=== PATIENT | female | born 1955 | race Caucasian/White ===

== ENCOUNTER 2016-09-25 11:51 | Inpatient (IN) | payer BC, OTHER ==
[~2016-09-25] VITALS: Ht 167.6 cm; Wt 89.7 kg
[2016-09-25] MEDS ORDERED: SODIUM CHLORIDE 0.9% 1000ML 1,000 ML IV SCH (13:03)
[2016-09-25 13:16] LABS: BASO % 0.9 %; BASO ABS # 0.06 K/uL (0-0.2); COMPLETE YES; EOS % 1.7 %; HEMATOCRIT 42.5 % (37-47); IG% 0.1 %; LYMPH ABS # 1.53 K/uL (1.2-3.4); MEAN CELL VOLUME 83.8 fL (80-100); MEAN CORPUSCULAR HGB CONC 34.6 g/dl (32-36); MEAN PLATELET VOLUME 10.8 fL (7.4-10.4); MONO % 6.5 %; NEUT % 68.8 %; PLATELET COUNT 203 K/uL (130-400); RED BLOOD COUNT 5.07 M/uL (4.2-5.4); WHITE BLOOD COUNT 6.94 K/uL (4.8-10.8)
--- NOTE | 2016-09-25 13:21 | DIAGNOSTIC IMAGING REPORT ---
CHEST ONE VIEW PORTABLE CLINICAL HISTORY: Dizziness, falling frequently COMPARISON STUDY: August 04, 2009 FINDINGS: The heart is borderline enlarged. There is no failure. There is no focal pulmonary consolidation. There are no pleural effusions.[ IMPRESSION: No active disease in the chest. Electronically signed by: Jordan Armando M.D. 09/25/2016 1:20 PM Dictated Date/Time: 09/25/2016 1:19 PM
[2016-09-25] MEDS ORDERED: CARV3.12 PO (13:22)
[2016-09-25] MEDS ORDERED: FURO20TA PO (13:22)
[2016-09-25] MEDS ORDERED: SPR25 PO (13:22)
[2016-09-25] MEDS ORDERED: ASPI81TA28 PO (13:22)
[2016-09-25] MEDS ORDERED: LSN5 PO (13:22)
[2016-09-25 13:25] LABS: ALT/SGPT 26 U/L (12-78); AST/SGOT 14 U/L (15-37); BLOOD UREA NITROGEN 18 mg/dl (7-18); BUN/CREATININE RATIO 22.7 (10-20); CALCIUM 10.5 mg/dl (8.5-10.1); CARBON DIOXIDE 24 mmol/L (21-32); CHLORIDE 99 mmol/L (98-107); CREATININE 0.79 mg/dl (0.60-1.20); GLUCOSE 492 mg/dl (70-99); MAGNESIUM 2.1 mg/dl (1.8-2.4); SODIUM 136 mmol/L (136-145)
[2016-09-25 13:30] LABS: ALB/GLOB RATIO 0.7 (0.9-2); ALKALINE PHOSPHATASE 99 U/L (45-117)
[2016-09-25 13:32] LABS: INR 0.9 (0.9-1.1); PARTIAL THROMBOPLASTIN RATIO 0.9; PROTHROMBIN TIME (PATIENT) 9.9 SECONDS (9.0-12.0)
[2016-09-25 13:38] LABS: URINE APPEARANCE CLEAR (CLEAR); URINE BILIRUBIN NEG (NEG); URINE COLOR YELLOW; URINE EPITHELIAL CELL AUTO >30 /lpf (0-5); URINE NITRITE POS (NEG); UROBILINOGEN NEG (NEG); ZZUR CULT IF INDIC CLEAN CATCH YES
[2016-09-25 13:56] LABS: LYME DISEASE AB IGM NEG (NEG)
[2016-09-25] MEDS ORDERED: SODIUM CHLORIDE 0.9% 1000ML 1,000 ML IV STA (13:57)
--- NOTE | 2016-09-25 13:57 | EMERGENCY ROOM VISIT NOTE ---
History First contact with patient: 12:49 Chief Complaint: REFERRED BY DOCTOR Stated Complaint: DOC SENT OVER FOR CARDIAC ASSESSMENT/BRAIN CT History of Present Illness The patient is a 61 year old female who presents to the Emergency Room via private vehicle referred from doctor's office with complaints of "doctor sent over for cardiac assessment/brain CT". The patient states that for the past year or so, she has been off balance, and is following number of times. She states that she was placed upon to diabetic medications, and on her own accord had stop one of them. She states that it caused undesired bowel side effects, and urinary changes. She states that her sugar has persistently been elevated. She states that her dizziness and off balance feeling has worsened therefore she prompted a family doctor pointed today. She was seen by Dr. Black, and she states that an EKG was performed and found to be abnormal therefore she was sent here as well as for further evaluation and management to include a potential CT scan of the head secondary to her symptoms. She states that currently she denies any symptoms and feels excellent. She doesn't history of diabetes, hypertension, and CHF. She denies any high cholesterol, fevers, chills, history of stroke, loss of consciousness, striking her head, chest pain , shortness of breath, dizziness currently. Review of Systems A complete 10-point Review of Systems was discussed with the patient, with pertinent positives and negatives listed in the History of Present Illness. All remaining Review of Systems questions can be considered negative unless otherwise specified. Past Medical/Surgical History Medical Problems: (1) Basal ganglia infarction (2) Diabetic ketoacidosis Diabetes, heart disease, high blood pressure Family History Diabetes, heart disease, high blood pressure, Globe D disease Social History Smoking Status: Never Smoker Marital Status: Occupation Status: other Social History: Patient lives at home with , denies alcohol and tobacco use. She is employed. Current/Historical Medications Scheduled Aspirin (Aspirin Ec), 81 MG PO DAILY Carvedilol (Coreg), 1 TAB PO BID Furosemide (Lasix), 1 TAB PO DAILY Lisinopril (Lisinopril), 1 TAB PO DAILY Spironolactone (Spironolactone), 1 TAB PO DAILY Allergies Coded Allergies: Erythromycin (Unverified Adverse Reaction, Intermediate, VOMITTING, ) Physical Exam Vital Signs Date Time Temp Pulse Resp B/P (MAP) Pulse Ox O2 Delivery O2 Flow Rate FiO2 09/25/16 16:31 78 16 09/25/16 16:26 76 19 09/25/16 16:21 80 17 214/106 98 Room Air 09/25/16 16:06 85 15 09/25/16 15:51 88 19 09/25/16 15:24 84 20 205/94 95 Room Air 09/25/16 15:21 85 12 205/94 98 09/25/16 15:09 84 18 199/87 97 Room Air 09/25/16 15:08 199/87 09/25/16 14:06 83 17 09/25/16 13:51 78 14 09/25/16 13:42 86 20 200/100 98 09/25/16 13:36 79 18 09/25/16 13:26 98 Room Air 09/25/16 13:25 200/100 09/25/16 13:23 221/107 09/25/16 13:22 88 20 212/109 86 221/107 93 200/100 09/25/16 13:22 212/109 09/25/16 13:06 80 15 09/25/16 12:51 81 26 09/25/16 12:48 80 15 194/85 97 Room Air 09/25/16 12:48 194/85 09/25/16 12:36 82 13 09/25/16 12:31 75 09/25/16 11:55 36.7 80 18 195/100 94 Room Air Physical Exam VITAL SIGNS - Vital signs and nursing notes were reviewed. Patient is afebrile , hypertensive at 195/100, non-tachycardic and saturating on room air 94%. GENERAL -61-year-old female appearing her stated age who is in no acute distress. Communicates well with provider and answers questions appropriately. SKIN - Without rashes. The integument is unremarkable. HEAD - NC/AT. EYES - PERRL with EOMI bilaterally. Sclera anicteric. Palpebral conjunctiva pink and moist with no injection noted. EARS - No deformities of external structures noted on gross examination bilaterally. No pain elicited with palpation of the tragus bilaterally. External auditory canals without discharge or otorrhea. Tympanic membranes pearly kat without retraction or bulging. No fluid or purulent material visualized behind the TM. Handle of malleus, umbo, cone of light, pars tensa/ flaccid all easily visualized. NOSE - Midline and without cyanosis. No epistaxis or purulent drainage noted. Septum midline without deviation or septal hematoma noted. MOUTH/OROPHARYNX - Without perioral cyanosis. Buccal mucosa pink and moist and without leukoplakia. Tongue midline with equal elevation of palate bilaterally. No tonsillar hypertrophy, erythema, or exudates noted. [] dentition noted. NECK - Neck with FROM. Supple to palpation. No lymphadenopathy noted. No nuchal rigidity. No meningismus. LUNGS - Chest wall symmetric without accessory muscle use, intercostals retractions, or central cyanosis. Normal vesicular breath sounds CTA B/L. No wheezes, rales, or rhonchi appreciated. CARDIAC - RRR with S1/S2. No murmur, rubs, or gallops appreciated. ABDOMEN - Abdominal contour without pulsations or visible masses. BS normoactive all four quadrants. No tenderness, palpable masses, hepatosplenomegaly, or ascites noted. EXTREMITIES - No clubbing or peripheral cyanosis. No pretibial edema present. She is neurovascularly intact in the extremity. +5/5 strength noted in UE/LE bilaterally. NEUROLOGIC - Cranial nerves II through XII grossly intact. Sensory intact to light touch throughout. Patellar reflexes +2/4. PSYCH - A&Ox3 and cooperates fully with examiner. Pt is very pleasant and interacts well with examiner. Medical Decision & Procedures ER Provider Diagnostic Interpretation: CHEST ONE VIEW PORTABLE CLINICAL HISTORY: Dizziness, falling frequently COMPARISON STUDY: August 04, 2009 FINDINGS: The heart is borderline enlarged. There is no failure. There is no focal pulmonary consolidation. There are no pleural effusions.[ IMPRESSION: No active disease in the chest. Electronically signed by: Jordan Armando M.D. 09/25/2016 1:20 PM Dictated Date/Time: 09/25/2016 1:[address] SCAN OF THE BRAIN WITHOUT IV CONTRAST CLINICAL HISTORY: Dizziness. Frequent falls. COMPARISON STUDY: No priors. TECHNIQUE: Unenhanced axial CT scan of the brain is performed from the vertex to the skull base. CT DOSE: 614.27 mGy.cm FINDINGS: Brain parenchyma: There are age-related involutional changes noting minimal subcortical and periventricular microangiopathic change. There is no hemorrhage, mass effect, or evidence of acute territorial ischemia by CT criteria. An age indeterminant and likely chronic lacunar infarct is identified in the left basal ganglia. Kat-white matter is preserved. No extra-axial fluid collection is seen. Ventricles, sulci, cisterns: Prominent secondary to involutional change. Intracranial vasculature: There is atherosclerotic calcification of the cavernous carotid and vertebral arteries. Calvarium: The skeletal structures are osteopenic. No depressed calvarial fracture is seen. Sinuses and mastoids: There is trace mucosal thickening in the left maxillary antrum. The remaining visualized paranasal sinuses are clear. The mastoid air cells are well pneumatized. Orbits: The bony orbits are grossly intact. IMPRESSION: 1. There is no hemorrhage, mass effect, or evidence of acute territorial ischemia by CT criteria. 2. An age indeterminant and likely chronic lacunar infarct is noted in the left basal ganglia. Electronically signed by: Donovan Marinelli M.D. 09/25/2016 2:48 PM Dictated Date/Time: 09/25/2016 2:42 PM Laboratory Results 09/25/16 12:30 Red Blood Count 5.07, Mean Corpuscular Volume 83.8, Mean Corpuscular Hemoglobin 29.0, Mean Corpuscular Hemoglobin Concent 34.6, Mean Platelet Volume 10.8, Neutrophils (%) (Auto) 68.8, Lymphocytes (%) (Auto) 22.0, Monocytes (%) (Auto) 6.5, Eosinophils (%) (Auto) 1.7, Basophils (%) (Auto) 0.9, Neutrophils # (Auto) 4.77, Lymphocytes # (Auto) 1.53, Monocytes # (Auto) 0.45, Eosinophils # (Auto) 0.12, Basophils # (Auto) 0.06 Test 09/25/16 12:15 09/25/16 12:30 09/25/16 13:03 09/25/16 13:45 Urine Color YELLOW Urine Appearance CLEAR (CLEAR) Urine pH 5.0 (4.5-7.5) Urine Specific [place] 1.040 (1.000-1.030) Urine Protein 2+ (NEG) Urine Glucose (UA) 3+ (NEG) Urine Ketones 3+ (NEG) Urine Occult Blood 1+ (NEG) Urine Nitrite POS (NEG) Urine Bilirubin NEG (NEG) Urine Urobilinogen NEG (NEG) Urine Leukocyte Esterase TRACE (NEG) Urine WBC (Auto) >30 /hpf (0-5) Urine RBC (Auto) 5-10 /hpf (0-4) Urine Hyaline Casts (Auto) 1-5 /lpf (0-5) Urine Epithelial Cells (Auto) >30 /lpf (0-5) Urine Bacteria (Auto) 4+ (NEG) White Blood Count 6.94 K/uL (4.8-10.8) Red Blood Count 5.07 M/uL (4.2-5.4) Hemoglobin 14.7 g/dL (12.0-16.0) Hematocrit 42.5 % (37-47) Mean Corpuscular Volume 83.8 fL (80-100) Mean Corpuscular Hemoglobin 29.0 pg (25-34) Mean Corpuscular Hemoglobin Concent 34.6 g/dl (32-36) Platelet Count 203 K/uL (130-400) Mean Platelet Volume 10.8 fL (7.4-10.4) Neutrophils (%) (Auto) 68.8 % Lymphocytes (%) (Auto) 22.0 % Monocytes (%) (Auto) 6.5 % Eosinophils (%) (Auto) 1.7 % Basophils (%) (Auto) 0.9 % Neutrophils # (Auto) 4.77 K/uL (1.4-6.5) Lymphocytes # (Auto) 1.53 K/uL (1.2-3.4) Monocytes # (Auto) 0.45 K/uL (0.11-0.59) Eosinophils # (Auto) 0.12 K/uL (0-0.5) Basophils # (Auto) 0.06 K/uL (0-0.2) RDW Standard Deviation 41.1 fL (36.4-46.3) RDW Coefficient of Variation 13.5 % (11.5-14.5) Immature Granulocyte % (Auto) 0.1 % Immature Granulocyte # (Auto) 0.01 K/uL (0.00-0.02) Prothrombin Time 9.9 SECONDS (9.0-12.0) Prothromb Time International Ratio 0.9 (0.9-1.1) Activated Partial Thromboplast Time 22.5 SECONDS (21.0-31.0) Partial Thromboplastin Ratio 0.9 Total Bilirubin 0.5 mg/dl (0.2-1) Aspartate Amino Transf (AST/SGOT) 14 U/L (15-37) Alanine Aminotransferase (ALT/SGPT) 26 U/L (12-78) Alkaline Phosphatase 99 U/L (45-117) Total Creatine Kinase 24 U/L (26-192) Creatine Kinase MB < 0.5 ng/ml (0.5-3.6) Total Protein 7.2 gm/dl (6.4-8.2) Albumin 3.0 gm/dl (3.4-5.0) Globulin 4.2 gm/dl (2.5-4.0) Albumin/Globulin Ratio 0.7 (0.9-2) Thyroid Stimulating Hormone (TSH) 2.130 uIu/ml (0.300-4.500) Lyme Disease IgG Antibody POS (NEG) Creatine Kinase MB Ratio (0-3.0) Bedside Troponin I < 0.030 ng/ml (0-0.045) HO-Mgj-A-Type Natriuretic Peptide 941 pg/ml (0-900) Medications Administered Medications (Trade) Dose Ordered Sig/Maria Isabel Route Start Time Stop Time Status Last Admin Dose Admin Sodium Chloride 1,000 ml @ 50 mls/hr Q20H IV 09/25/16 13:03 09/25/16 20:57 DC 09/25/16 16:43 50 MLS/HR Sodium Chloride 1,000 ml @ 999 mls/hr Q1H1M STAT IV 09/25/16 13:57 09/25/16 14:57 DC 09/25/16 14:03 999 MLS/HR Ceftriaxone Sodium (Rocephin Inj) 1 gm NOW STAT IV 09/25/16 15:59 09/25/16 16:00 DC 09/25/16 16:43 1 GM Oxycodone HCl (Roxicodone Immediate Rel Tab) 5 mg NOW STAT PO 09/25/16 16:03 09/25/16 16:04 DC 09/25/16 16:43 5 MG Morphine Sulfate (MoRPHine SULFATE INJ) 2 mg Q30M PRN IV 09/25/16 17:15 10/09/16 17:14 09/25/16 23:00 2 MG Medical Decision Patient was seen and evaluated as above. After obtaining a thorough history and physical examination IV access was initiated above workup was performed. Patient presents to us with chronic dizziness, as well as concerning EKG findings from the family doctor. Her bedside EKG reveals normal sinus rhythm, nonspecific ST and T-wave abnormalities. This was compared with EKG of 2009. T-wave inversion now evident in the inferior leads, and less evident in the lateral leads. CBC reveals no leukocytosis or anemia. Coag studies normal. CMP reveals normal electrolytes, creatinine normal 0.79. Random glucose high at 492, anion gap at 13. Calcium high at 10.5, total CK low at 24 , beta hydroxybutyric acid high at 35, TSH normal. Urine is concerning for UTI. This will be treated with 1 g Rocephin. IgG positive. Chest x-ray shows borderline cardiomegaly, otherwise negative. CT scan of the head is concerning for that of the basal ganglia infarct of undetermined age. There is concern of the patient's dizziness is secondary to this, and she is also experiencing a diabetic hypoglycemic event, without evidence of manuel DKA. Believe the patient should be admitted for further evaluation and management. Patient is in agreement with this. Case was discussed with my attending. Please refer to further documentation regarding her stay. In the evaluation and treatment of this patient following differential diagnoses were entertained: CVA, DKA, ND, PE, among others. Impression Primary Impression: Basal ganglia infarction Additional Impression: Hyperglycemia Departure Information Dispostion Admitted as an inpatient Condition FAIR Referrals Bhargavi Black D.O. (PCP) Patient Instructions My [facility] Problem Qualifiers
[2016-09-25 14:04] LABS: POINT OF CARE PRO-BNP 941 pg/ml (0-900); POINT OF CARE TROPONIN I < 0.030 ng/ml (0-0.045)
[2016-09-25 14:12] LABS: MANUAL MICROSCOPIC REQUIRED? NO; REVIEW REQ? NO
[2016-09-25 14:27] LABS: LYME DISEASE AB IGG POS (NEG)
--- NOTE | 2016-09-25 14:49 | DIAGNOSTIC IMAGING REPORT ---
CT SCAN OF THE BRAIN WITHOUT IV CONTRAST CLINICAL HISTORY: Dizziness. Frequent falls. COMPARISON STUDY: No priors. TECHNIQUE: Unenhanced axial CT scan of the brain is performed from the vertex to the skull base. CT DOSE: 614.27 mGy.cm FINDINGS: Brain parenchyma: There are age-related involutional changes noting minimal subcortical and periventricular microangiopathic change. There is no hemorrhage, mass effect, or evidence of acute territorial ischemia by CT criteria. An age indeterminant and likely chronic lacunar infarct is identified in the left basal ganglia. Kat-white matter is preserved. No extra-axial fluid collection is seen. Ventricles, sulci, cisterns: Prominent secondary to involutional change. Intracranial vasculature: There is atherosclerotic calcification of the cavernous carotid and vertebral arteries. Calvarium: The skeletal structures are osteopenic. No depressed calvarial fracture is seen. Sinuses and mastoids: There is trace mucosal thickening in the left maxillary antrum. The remaining visualized paranasal sinuses are clear. The mastoid air cells are well pneumatized. Orbits: The bony orbits are grossly intact. IMPRESSION: 1. There is no hemorrhage, mass effect, or evidence of acute territorial ischemia by CT criteria. 2. An age indeterminant and likely chronic lacunar infarct is noted in the left basal ganglia. Electronically signed by: Donovan Marinelli M.D. 09/25/2016 2:48 PM Dictated Date/Time: 09/25/2016 2:42 PM
[2016-09-25] MEDS ORDERED: CEFTRIAXONE SOD INJ 1 GM ADDVIAL IV STA (15:59)
--- NOTE | 2016-09-25 15:59 | History and Physical ---
History & Physical Date & Time of Service: Sep 25, 2016 at 15:53 Chief Complaint: Doc Sent Over For Cardiac Assessment/Brain Ct Primary Care Physician: Bhargavi Black D.O. History of Present Illness Source: patient 61F with a PMHx of poorly controlled DM2, HTN was sent from PCPs office for further evaluation. Pt reports dizziness for 1 year that she has been trying to self medicate herself for with Aspirin and other OTC medications. Pt has had multiple falls over the past 12 months and had started to use a cane. When asked pt states that she feels the left side of her body is weaker than the right side of her body. Pt noticed a tick approximately 3 weeks ago and took it out almost immediately. She doesn't remember any tick bites previously. Pt denies any history of UTIs. Does have urinary frequency that she attributes to her many diuretics. H/o CHF - pt had an echo at [facility] in 2009 after her father that showed an EF of 15%. 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 She believes that her heart failure was due to Avandia (Pioglitazone) which has a black box warning of heart failure. PT denies ever having a heart attack. Cath two months after echo showed LVEF of 50% but maintained diffuse left ventricular hypokinesis. ROS: +urinary frequency, +Neck Stiffness x 3 weeks, no chest pain, no swelling on the LE, no dysuria. Right calf stiffness - pt has a history of recent long plane ride. Last BM was one week ago. Pt denies rash anywhere. PMHx: DM2, HTN, CHF, IBS Meds: Hasn't been taking her Lasix because she is peeing so frequently. Doesn' t know the doses for any of her med rec meds. Has been taking her insulin, thinks she's a non responder. SHX: , lives with . Social History Smoking Status: Never Smoker Marital Status: Housing status: lives with family Occupational Status: other Immunizations History of Influenza Vaccine: No History of Tetanus Vaccine?: Yes History of Pneumococcal: No History of Hepatitis B Vaccine: Yes Allergies Coded Allergies: Erythromycin (Unverified Adverse Reaction, Intermediate, VOMITTING, ) Home Medications Scheduled Aspirin (Aspirin Ec), 81 MG PO DAILY Carvedilol (Coreg), 1 TAB PO BID Furosemide (Lasix), 1 TAB PO DAILY Lisinopril (Lisinopril), 1 TAB PO DAILY Spironolactone (Spironolactone), 1 TAB PO DAILY Review of Systems Constitutional: No fever, No chills, No weight loss, No weakness Respiratory: No cough, No sputum, No wheezing, No shortness of breath Cardiovascular: No chest pain Abdomen: No pain, No nausea Musculoskeletal: No joint pain, No muscle pain Integumentary: No rash Physical Exam Vital Signs Date Time Temp Pulse Resp B/P (MAP) Pulse Ox O2 Delivery O2 Flow Rate FiO2 09/25/16 15:24 84 20 205/94 95 Room Air 09/25/16 15:09 84 18 199/87 97 Room Air 09/25/16 13:42 86 20 200/100 98 09/25/16 13:26 98 Room Air 09/25/16 13:22 88 20 212/109 86 221/107 93 200/100 09/25/16 12:48 80 15 194/85 97 Room Air 09/25/16 12:31 75 09/25/16 11:55 36.7 80 18 195/100 94 Room Air General Appearance: WD/WN, no apparent distress, + obese Eyes: normal inspection, PERRL, EOMI, sclerae normal ENT: TMs normal, pharynx normal Neck: supple, no JVD Respiratory/Chest: chest non-tender, lungs clear, normal breath sounds, no respiratory distress, no accessory muscle use Cardiovascular: regular rate, rhythm, no edema, no gallop, no JVD, no murmur Abdomen/GI: no organomegaly, no pulsatile mass, normal rectal exam, occult blood negative Back: no CVA tenderness Extremities/Musculoskelatal: no calf tenderness, normal capillary refill, no pedal edema, normal range of motion 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 Intact sensation to light touch in the upper and lower extremities. 5/5 Power in the upper and lower extremities. ) Skin: no rash Diagnostics Laboratory Results Results Past 24 Hours Test 09/25/16 12:15 09/25/16 12:30 09/25/16 13:03 09/25/16 13:45 Range/Units Urine Color YELLOW Urine Appearance CLEAR CLEAR Urine pH 5.0 4.5-7.5 Urine Specific [place] 1.040 1.000-1.030 Urine Protein 2+ NEG Urine Glucose (UA) 3+ NEG Urine Ketones 3+ NEG Urine Occult Blood 1+ NEG Urine Nitrite POS NEG Urine Bilirubin NEG NEG Urine Urobilinogen NEG NEG Urine Leukocyte Esterase TRACE NEG Urine WBC (Auto) >30 0-5 /hpf Urine RBC (Auto) 5-10 0-4 /hpf Urine Hyaline Casts (Auto) 1-5 0-5 /lpf Urine Epithelial Cells (Auto) >30 0-5 /lpf Urine Bacteria (Auto) 4+ NEG White Blood Count 6.94 4.8-10.8 K/uL Red Blood Count 5.07 4.2-5.4 M/uL Hemoglobin 14.7 12.0-16.0 g/dL Hematocrit 42.5 37-47 % Mean Corpuscular Volume 83.8 80-100 fL Mean Corpuscular Hemoglobin 29.0 25-34 pg Mean Corpuscular Hemoglobin Concent 34.6 32-36 g/dl Platelet Count 203 130-400 K/uL Mean Platelet Volume 10.8 7.4-10.4 fL Neutrophils (%) (Auto) 68.8 % Lymphocytes (%) (Auto) 22.0 % Monocytes (%) (Auto) 6.5 % Eosinophils (%) (Auto) 1.7 % Basophils (%) (Auto) 0.9 % Neutrophils # (Auto) 4.77 1.4-6.5 K/uL Lymphocytes # (Auto) 1.53 1.2-3.4 K/uL Monocytes # (Auto) 0.45 0.11-0.59 K/uL Eosinophils # (Auto) 0.12 0-0.5 K/uL Basophils # (Auto) 0.06 0-0.2 K/uL RDW Standard Deviation 41.1 36.4-46.3 fL RDW Coefficient of Variation 13.5 11.5-14.5 % Immature Granulocyte % (Auto) 0.1 % Immature Granulocyte # (Auto) 0.01 0.00-0.02 K/uL Prothrombin Time 9.9 9.0-12.0 SECONDS Prothromb Time International Ratio 0.9 0.9-1.1 Activated Partial Thromboplast Time 22.5 21.0-31.0 SECONDS Partial Thromboplastin Ratio 0.9 Sodium Level 136 136-145 mmol/L Potassium Level 4.0 3.5-5.1 mmol/L Chloride Level 99 98-107 mmol/L Carbon Dioxide Level 24 21-32 mmol/L Anion Gap 13.0 3-11 mmol/L Blood Urea Nitrogen 18 7-18 mg/dl Creatinine 0.79 0.60-1.20 mg/dl Est Creatinine Clear Calc Drug Dose 83.7 ml/min Estimated GFR () 93.6 Estimated GFR (Non- 80.8 BUN/Creatinine Ratio 22.7 10-20 Random Glucose 492 70-99 mg/dl Calcium Level 10.5 8.5-10.1 mg/dl Magnesium Level 2.1 1.8-2.4 mg/dl Total Bilirubin 0.5 0.2-1 mg/dl Aspartate Amino Transf (AST/SGOT) 14 15-37 U/L Alanine Aminotransferase (ALT/SGPT) 26 12-78 U/L Alkaline Phosphatase 99 45-117 U/L Total Creatine Kinase 24 26-192 U/L Creatine Kinase MB < 0.5 0.5-3.6 ng/ml Creatine Kinase MB Ratio 0-3.0 Total Protein 7.2 6.4-8.2 gm/dl Albumin 3.0 3.4-5.0 gm/dl Globulin 4.2 2.5-4.0 gm/dl Albumin/Globulin Ratio 0.7 0.9-2 Beta-Hydroxybutyric Acid 35.70 0.2-2.81 mg/dL Thyroid Stimulating Hormone (TSH) 2.130 0.300-4.500 uIu/ml Lyme Disease IgG Antibody POS NEG Lyme Disease IgM Antibody NEG NEG Bedside Troponin I < 0.030 0-0.045 ng/ml IP-Mig-H-Type Natriuretic Peptide 941 0-900 pg/ml Microbiology Results 09/25/16 Urine Culture, Received Pending Diagnostic Radiology CT SCAN OF THE BRAIN WITHOUT IV CONTRAST CLINICAL HISTORY: Dizziness. Frequent falls. COMPARISON STUDY: No priors. TECHNIQUE: Unenhanced axial CT scan of the brain is performed from the vertex to the skull base. CT DOSE: 614.27 mGy.cm FINDINGS: Brain parenchyma: There are age-related involutional changes noting minimal subcortical and periventricular microangiopathic change. There is no hemorrhage, mass effect, or evidence of acute territorial ischemia by CT criteria. An age indeterminant and likely chronic lacunar infarct is identified in the left basal ganglia. Kat-white matter is preserved. No extra-axial fluid collection is seen. Ventricles, sulci, cisterns: Prominent secondary to involutional change. Intracranial vasculature: There is atherosclerotic calcification of the cavernous carotid and vertebral arteries. Calvarium: The skeletal structures are osteopenic. No depressed calvarial fracture is seen. Sinuses and mastoids: There is trace mucosal thickening in the left maxillary antrum. The remaining visualized paranasal sinuses are clear. The mastoid air cells are well pneumatized. Orbits: The bony orbits are grossly intact. IMPRESSION: 1. There is no hemorrhage, mass effect, or evidence of acute territorial ischemia by CT criteria. 2. An age indeterminant and likely chronic lacunar infarct is noted in the left basal ganglia. CHEST ONE VIEW PORTABLE CLINICAL HISTORY: Dizziness, falling frequently COMPARISON STUDY: August 04, 2009 FINDINGS: The heart is borderline enlarged. There is no failure. There is no focal pulmonary consolidation. There are no pleural effusions.[ IMPRESSION: No active disease in the chest. EKG Poor data quality, interpretation may be adversely affected Normal sinus rhythm Moderate voltage criteria for LVH, may be normal variant Nonspecific ST and T wave abnormality Abnormal ECG When compared with ECG of 08-AUG-2009 07:13, T wave inversion now evident in Inferior leads T wave inversion less evident in Lateral leads Impression Assessment and Plan 61F with PMHx of DM2 (on insulin) and HTN was sent over from PCPs office for further workup for dizziness. Pt reports dizziness of approximately one year. CT of the head showed "chronic lacunar infarct is noted in the left basal ganglia.". Labs showed IGG +'ve for lyme disease and negative IGM. Pt has a history of CHF approx 7 years ago of unknown etiology, possibly 2/2 to Avenda ( Pioglitazone) use. Dizziness x 1 year possibly 2/2 Left basal ganlgia stroke - Pt fails the Romberg test (starts to fall when standing w eyes closed) - CT showed left basal ganglia stroke - MRI brain. - echo carotids, echocardiogram. - Fall precautions. - Appreciate neuro recs Diabetic Ketoacidosis - Anion gap of 13, likely chronic hyperglycemia. May also be contributing to her dizziness. - Pt will be given insulin drip per DKA protocol. - 1/2 NSS +20KCL at 40mls/hr and then transitioned to NSS+20KCL at 40mls/hr in addition to DM2 and Heart Healthy diet. H/o CHF 2/2 to unknown cause - Followed up with [facility] and recently changed insurance so can no longer see [facility] cardiology. 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 - Last echo was two years ago w Wilma, doesn't remember the results. - Echo here in 2009, EF was 15%. Pt reports her CHF improved drastically after that. Cath two months after echo in 2009 revealed LVEF of 50% w severe left ventrical hypokinesis. - Repeat echo. - Appreciate cardiology input. Abnormal UA - follow up urine culture results - Ceftriaxone 1gm daily. R Calf Pain with history of recent prolonged travel - Pt states her leg feels similar to when she had a blood clot many years ago ( post surgical) - Will order US of the RLE. Positive IgG, Negative IgM for Lyme - Pt cannot remember any tick bite from prior to 3 weeks ago. Pt has never been treated for Lyme. - Wait for western blot results to reflex. Constipation - Last BM was last week. - Miralax 17g daily. HTN (cont home meds) - unknown home doses, pt sees Dr. Bhargavi Black, unable to login to [facility] records from the ER to confirm doses. - 6.25mg BID Coreg (assumed dose) - 20mg BID Lasix - 10mg QAM lisinopril - 25mg Spironolactone Dispo:Tele, admit, DM2 diet, PT & OT, Speech Swallow Test. DVT Proph: HepSQ TID Code: Full I personally and independently interviewed and examined the patient I reviewed labs and imaging I agree with above mentioned physical exam, History and ROS I discussed and formulated the assessment and plan with Dr. Hernandez 61 F with PMHx of DM2 insulin dependent and HTN p/w dizziness. CT of the head showed "chronic lacunar infarct is noted in the left basal ganglia." BP was 200 systolic, admitted lack of compliance and lack of medical follow up ROS is as above PE obese, not in acute distress chest decrease air entry B/L, heart S1/S2 normal abd soft but tender all over. no guarding Lower Ext no edema assessment: Dizziness generalized weakness lacunar infarct left basal ganglia, age undetermined uncontrolled DMII with hyperglycemia and border line elevated ketone (no manuel DKA) HTN crisis UTI POA lower ext pain chronic CHF unspecified Plan: CTXN for UTI plus lactinex goal to bring BP down slowly follow up labs DKA insulin drip protocol CVA work up including Echo will defer Lyme problem to her PCP pending [facility] Hospitalist Resident Involvement: Resident Care Provided Care Provided: Adult Hospital Medicine
[2016-09-25] MEDS ORDERED: OXYCODONE HCL IR 5 MG TAB (IMMEDIATE RELEASE) PO STA (16:03)
[2016-09-25] MEDS ORDERED: INSULIN IV INFUSION PROTOCOL STA (17:06)
[2016-09-25] MEDS ORDERED: ALUMINUM/MAGNESIUM/SIMETH (MAALOX MAX) 30 ML UDC PO PRN (17:15)
[2016-09-25] MEDS ORDERED: POLYETHYLENE (MIRALAX) 17 GM PACK PO PRN (17:15)
[2016-09-25] MEDS ORDERED: PHARMACY GLYCEMIC MGMT CONSULT PRN (17:15)
[2016-09-25] MEDS ORDERED: PHARMACIST DISCHARGE MED REC CONSULT PRN (17:15)
[2016-09-25] MEDS ORDERED: NITROGLYCERIN 0.4 MG SL PER TAB CHARGE SL PRN (17:15)
[2016-09-25] MEDS ORDERED: MAGNESIUM HYDROXIDE SUSP 30 ML UDC PO PRN (17:15)
[2016-09-25] MEDS ORDERED: PENDING NSS+20mEq KCL IVF SCH (17:15)
[2016-09-25] MEDS ORDERED: PENDING D5 1/2NS+20mEq KCL IVF SCH (17:15)
[2016-09-25] MEDS ORDERED: MoRPHine SULFATE 2 MG/ML CARP IV PRN (17:15)
[2016-09-25] MEDS ORDERED: DKA GOAL RANGE 150-250 mg/dl 1 EA ONE (18:15)
[2016-09-25] MEDS ORDERED: INSULIN HUMAN REGULAR IV BOLUS 2 UNIT in SYRINGE 0 ML IV SCH (18:15)
[2016-09-25] MEDS ORDERED: INSULIN REGULAR 250 UNITS in SODIUM CHLORIDE 0.9% 250ML 250 ML IV SCH (18:30)
[2016-09-25] MEDS ORDERED: [UNRECOGNIZED DRUG - OTHER] ONE (18:42)
[2016-09-25] MEDS ORDERED: DEXTROSE ONE (18:42)
[2016-09-25] MEDS ORDERED: POTASSIUM CHLORIDE ONE (18:42)
[2016-09-25] MEDS: INSULIN ASPART 100 UNITS/ML 3 ML PEN SC SCH ×2 (19:00→21:00)
[2016-09-25] MEDS ORDERED: INSULIN ASPART 100 UNITS/ML 3 ML PEN SC SCH (19:00)
--- NOTE | 2016-09-25 19:44 | DIAGNOSTIC IMAGING REPORT ---
Venous Doppler right leg RIGHT VENOUS DOPP LOWER EXT UNILAT CLINICAL HISTORY: R calf pain w history of prolonged travel Right pain. Edema. TECHNIQUE: Ultrasound COMPARISON STUDY: None FINDINGS: Normal study IMPRESSION: Normal study Electronically signed by: Colton Oseguera M.D. 09/25/2016 7:42 PM Dictated Date/Time: 09/25/2016 7:42 PM
--- NOTE | 2016-09-25 19:48 | DIAGNOSTIC IMAGING REPORT ---
BILATERAL CAROTID DOPPLER STUDY HISTORY: Mental status change Stroke COMPARISON: None. TECHNIQUE: Real-time, grayscale, and color Doppler sonography of the carotid arteries was performed. Imaging reviewed in the transverse and longitudinal planes. All measurements were calculated based on NASCET criteria. FINDINGS: Antegrade flow is seen in the bilateral vertebral arteries. The brachial pressures are hemodynamically similar. Considerable plaque formation bilaterally The peak systolic velocity within the right ICA is 134. The right systolic ratio is 1.6. The peak systolic velocity within the left ICA is 85. The left systolic ratio is 0.9. IMPRESSION: 1. Considerable plaque formation bilaterally. 2. 30-50% narrowing right internal carotid artery. 3. Significant narrowing of the extracranial carotid arteries bilaterally. 4. No significant stenosis of the left carotid system Electronically signed by: Colton Oseguera M.D. 09/25/2016 7:47 PM Dictated Date/Time: 09/25/2016 7:45 PM
[2016-09-25 20:30] VITALS: BP 181/97; PULSE 80; TEMP 37; O2SAT 96; BMI 32.1
[2016-09-25] MEDS ORDERED: POLYETHYLENE (MIRALAX) 17 GM PACK PO ONE (21:00)
--- NOTE | 2016-09-25 21:02 | DIAGNOSTIC IMAGING REPORT ---
Brain MRI WITHOUT CONTRAST HISTORY: Stroke Stroke TECHNIQUE: Multiplanar multisequence MRI of the brain was performed without the use of contrast. COMPARISON STUDY: None. FINDINGS: Diffusion-weighted images show a small focus of acute ischemic change measuring 7 mm left paraventricular distribution. No additional foci of abnormal signal characteristics are identified. Ventricular system is midline. There is a component of chronic small vessel change involving the periventricular deep white matter regions. Ventricular system is midline. There is no ventricular distention. Basilar cisterns are unremarkable. Sella and parasellar regions are unremarkable. IMPRESSION: 1. Small acute/subacute infarct left paraventricular region 2. This measures approximately 7 mm. 3. Mild chronic small vessel change throughout both cerebral hemispheres. 3. Otherwise negative study. Electronically signed by: Colton Oseguera M.D. 09/25/2016 9:01 PM Dictated Date/Time: 09/25/2016 8:59 PM
[2016-09-25] MEDS: CARVEDILOL 6.25 MG TAB PO SCH (21:46)
[2016-09-25] MEDS: NSS + 20MEQ KCL 1000ML 1,000 ML IV SCH (21:53)
[2016-09-25] MEDS: HEPARIN SOD 5000 UNIT/0.5 ML CARP SQ SCH (21:56)
[2016-09-25 22:06] LABS: BUN/CREATININE RATIO 16.6 (10-20); CALCIUM 9.7 mg/dl (8.5-10.1); CREATININE 0.9 mg/dl (0.60-1.20); MAGNESIUM 1.7 mg/dl (1.8-2.4); PHOSPHORUS 1.6 mg/dl (2.5-4.9); POTASSIUM 3.3 mmol/L (3.5-5.1)
[2016-09-25] MEDS ORDERED: POTASSIUM PHOS 3 MMOL/1 ML INFUSION IV STA (22:22)
[2016-09-25 22:24] LABS: BETA-HYDROXYBUTYRATE 18.6 mg/dL (0.2-2.81)
[2016-09-25] MEDS ORDERED: MAGNESIUM SULFATE 1GM / D5W 1 GM in PREMIXED IN D5W 100 ML IV ONE (22:30)
[2016-09-25] MEDS ORDERED: POTASSIUM PHOSPHATE INJ 21 MMOL in SODIUM CHLORIDE 0.9% 500ML 500 ML IV ONE (23:30)
[2016-09-26] VITALS (13 sets, daily range): BP systolic 143–197; BP diastolic 71–126; PULSE 72–88; TEMP 36.6–36.9; O2SAT 91–98
[2016-09-26 00:07] LABS: CALCIUM 9.6 mg/dl (8.5-10.1); CREATININE 0.92 mg/dl (0.60-1.20); MAGNESIUM 2.1 mg/dl (1.8-2.4); POTASSIUM 3.4 mmol/L (3.5-5.1)
[2016-09-26 00:16] LABS: PHOSPHORUS 1.4 mg/dl (2.5-4.9)
[2016-09-26 00:17] LABS: BETA-HYDROXYBUTYRATE 15.99 mg/dL (0.2-2.81)
[2016-09-26] MEDS: NITROGLYCERIN OINT 2% 1GM PACKET EXT SCH ×4 (00:17→17:01)
[2016-09-26] MEDS: POTASSIUM CHLR 10 MEQ / WTR 10 MEQ in PREMIXED WATER 100 ML IV SCH ×2 (04:38→04:39)
[2016-09-26 06:16] LABS: HEMATOCRIT 40.1 % (37-47); MEAN CELL VOLUME 84.2 fL (80-100); MEAN CORPUSCULAR HEMOGLOBIN 28.2 pg (25-34); MEAN CORPUSCULAR HGB CONC 33.4 g/dl (32-36); MEAN PLATELET VOLUME 10.1 fL (7.4-10.4); PLATELET COUNT 191 K/uL (130-400); RED BLOOD COUNT 4.76 M/uL (4.2-5.4); WHITE BLOOD COUNT 6.49 K/uL (4.8-10.8)
[2016-09-26] MEDS: HEPARIN SOD 5000 UNIT/0.5 ML CARP SQ SCH ×3 (06:22→20:51)
[2016-09-26 06:51] LABS: ESTIMATED AVERAGE GLUCOSE 421 mg/dl; HA1C FLAG Normal (Normal)
[2016-09-26 06:55] LABS: ALB/GLOB RATIO 0.7 (0.9-2); CREATININE 0.65 mg/dl (0.60-1.20); MAGNESIUM 2.2 mg/dl (1.8-2.4); POTASSIUM 3.6 mmol/L (3.5-5.1)
[2016-09-26 07:07] LABS: CHOLESTEROL/HDL RATIO 8.5
--- NOTE | 2016-09-26 07:19 | Family Medicine Progress Note ---
Progress Note Date of Service Sep 26, 2016. Subjective Pt evaluation today including: conversation w/ patient The patient was seen and examined at bedside. Pt received Mag and Phosphate overnight. HBA1C returned at 16.3 and patient explained that she stopped taking her insulin for the past couple of months as part of a self medication regime for her dizziness and wanted to see if that would work - pt explained that insulin is the last medication she should stop. Pt understood this. Pt reports improvement in her dizziness. Telemetry showed sinus rhythm in the 70s. Pt vomited after her breakfast and received zofran. Today we are transitioning to SQ insulin. Patient is resting comfortably in bed. Denies having any pain. Plan of care was described to the patient and all questions were answered. It was explained to the pt that we do not want her ambulating on her own. Objective Physical Exam General Appearance: WD/WN, no apparent distress, + obese Respiratory/Chest: chest non-tender, lungs clear, normal breath sounds, no respiratory distress, no accessory muscle use Cardiovascular: regular rate, rhythm, no edema, no gallop, no JVD, no murmur Abdomen: normal bowel sounds, non tender, soft, no organomegaly Extremities: normal range of motion, non-tender, normal inspection, no pedal edema, no calf tenderness Neurologic/Psychiatric: alert, normal mood/affect, oriented x 3 Laboratory Results Brain MRI WITHOUT CONTRAST HISTORY: Stroke Stroke TECHNIQUE: Multiplanar multisequence MRI of the brain was performed without the use of contrast. COMPARISON STUDY: None. FINDINGS: Diffusion-weighted images show a small focus of acute ischemic change measuring 7 mm left paraventricular distribution. No additional foci of abnormal signal characteristics are identified. Ventricular system is midline. There is a component of chronic small vessel change involving the periventricular deep white matter regions. Ventricular system is midline. There is no ventricular distention. Basilar cisterns are unremarkable. Sella and parasellar regions are unremarkable. IMPRESSION: 1. Small acute/subacute infarct left paraventricular region 2. This measures approximately 7 mm. 3. Mild chronic small vessel change throughout both cerebral hemispheres. 3. Otherwise negative study. Venous Doppler right leg RIGHT VENOUS DOPP LOWER EXT UNILAT CLINICAL HISTORY: R calf pain w history of prolonged travel Right pain. Edema. TECHNIQUE: Ultrasound COMPARISON STUDY: None FINDINGS: Normal study IMPRESSION: Normal study BILATERAL CAROTID DOPPLER STUDY HISTORY: Mental status change Stroke COMPARISON: None. TECHNIQUE: Real-time, grayscale, and color Doppler sonography of the carotid arteries was performed. Imaging reviewed in the transverse and longitudinal planes. All measurements were calculated based on NASCET criteria. FINDINGS: Antegrade flow is seen in the bilateral vertebral arteries. The brachial pressures are hemodynamically similar. Considerable plaque formation bilaterally The peak systolic velocity within the right ICA is 134. The right systolic ratio is 1.6. The peak systolic velocity within the left ICA is 85. The left systolic ratio is 0.9. IMPRESSION: 1. Considerable plaque formation bilaterally. 2. 30-50% narrowing right internal carotid artery. 3. Significant narrowing of the extracranial carotid arteries bilaterally. 4. No significant stenosis of the left carotid system Assessment and Plan 61F with PMHx of DM2 (on insulin) and HTN was sent over from PCPs office for further workup for dizziness. Pt reports dizziness of approximately one year. CT of the head showed "chronic lacunar infarct is noted in the left basal ganglia.". Labs showed IGG +'ve for lyme disease and negative IGM. Pt has a history of CHF approx 7 years ago of unknown etiology, possibly 2/2 to Avenda ( Pioglitazone) use. Cardiology and Neurology were consulted. Echo results as below. MRI brain confirmed CT findings, echo of the US showed bilateral plaques and echocardiogram results as below. HBA1C was 16.3. Active management of multiple medical problems. Pt is doing well clinically. Dizziness x 1 year possibly 2/2 Left basal ganglia stroke - Pt failed the Romberg test (starts to fall when standing w eyes closed) - CT showed left basal ganglia stroke, MRI confirms lesion in that area. - Echo carotids shows plaque formation bilaterally - Fall precautions. - Neurology: 1. Control blood pressure, striving for MAP of approximately 100 2. Control glucose 3. Initiate high-dose statin for dyslipidemia 4. Discontinue aspirin and initiate clopidogrel 75 mg daily. Her events were on chronic aspirin. 5. PT, OT, and speech therapy consults. She needs gait strengthening and training and may benefit from a rehabilitation hospital stay after hospitalization here. 6. Awaiting Lyme Western blot. 7. Awaiting echocardiogram results. - Will increase Atorvastatin to 80mg daily from 40mg daily per cards and neurology recs. - stop ASA, start 75mg PO Plavix. - Lasix was cancelled by dr. Dickinson, likely due to low phosphate and magnesium. - will start HCTZ/Lisinopril combo 20mg/25mg daily. - will increase coreg to 12.5mg BID Diabetic Ketoacidosis - Anion gap of 13, likely chronic hyperglycemia. May also be contributing to her dizziness. - Transitioning to SQ insulin. Glycemic control consult in place. - 1/2 NSS +20KCL at 40mls/hr and then transitioned to NSS+20KCL at 40mls/hr in addition to DM2 and Heart Healthy diet. H/o CHF 2/2 to unknown cause - Followed up with [facility] and recently changed insurance so can no longer see [facility] cardiology. 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 - Last echo was two years ago w Wilma, doesn't remember the results. - Echo here in 2009, EF was 15%. Pt reports her CHF improved drastically after that. Cath two months after echo in 2009 revealed LVEF of 50% w severe left ventrical hypokinesis. - Echo today was grossly normal, EF of 50-55%. Abnormal UA - follow up urine culture results - Ceftriaxone 1gm daily. Day #2 R Calf Pain with history of recent prolonged travel - Pt states her leg feels similar to when she had a blood clot many years ago ( post surgical) - Doppler of the RLE was negative. Positive IgG, Negative IgM for Lyme - Pt cannot remember any tick bite from prior to 3 weeks ago. Pt has never been treated for Lyme. - Wait for western blot results to reflex. Constipation - Last BM was last week. - Miralax 17g daily. HTN (cont home meds) - unknown home doses, pt sees Dr. Bhargavi Black, unable to login to [facility] records from the ER to confirm doses. - 6.25mg BID Coreg (assumed dose) - 20mg BID Lasix - 10mg QAM lisinopril - 25mg Spironolactone - Hydralazine 25mg PO PRN For SBP>200 or DBP >100. Dispo:Tele, admit, DM2 diet, PT & OT, Speech Swallow Test. DVT Proph: HepSQ TID Code: Full Resident Physician Supervision Note: I was present with Dr. Hernandez during the history and exam. I discussed the case with the resident and agree with the findings and plan as documented in the note. Any exceptions or clarifications are listed here: I also reviewed the cardiology and neurology consultations and personally discussed the case with neurology today. The patient actually felt quite well upon examination this afternoon; her blood pressure is slightly improved upon mastering with the systolic blood pressure of 155 mmHg. We briefly discussed the dangers of her uncontrolled diabetes and hypertension; there is no clear reason as to why she has been more compliant to medications or seen her primary care physician more frequently than once a year, but this is certainly something we'll discuss in more detail as her hospitalization progresses. Documented By: Travon Cagle Resident Involvement: Resident Care Provided Care Provided: Adult Hospital Medicine
[2016-09-26 07:42] LABS: BASO % 0.8 %; BASO ABS # 0.05 K/uL (0-0.2); COMPLETE YES; EOS % 3.5 %; IG% 0.2 %; LYMPH % 52.9 %; LYMPH ABS # 3.43 K/uL (1.2-3.4); MONO % 10.3 %; NEUT % 32.3 %
[2016-09-26] MEDS: LACTOBACILLUS ACIDOPHILUS 1 GM PACK PO SCH ×2 (07:58→11:59)
[2016-09-26] MEDS: ACETAMINOPHEN 325 MG TAB PO PRN (07:59)
[2016-09-26] MEDS: SPIRONOLACTONE 25 MG TAB PO SCH (07:59)
[2016-09-26] MEDS: INSULIN ASPART 100 UNITS/ML 3 ML PEN SC SCH ×5 (08:00→20:50)
[2016-09-26] MEDS: CARVEDILOL 6.25 MG TAB PO SCH (08:01)
[2016-09-26] MEDS: POLYETHYLENE (MIRALAX) 17 GM PACK PO SCH (08:13)
[2016-09-26] MEDS: ONDANSETRON INJ 2 MG/ML 2 ML VIAL IV PRN (08:19)
[2016-09-26] MEDS ORDERED: ASPIRIN 81 MG ECTAB PO SCH (09:00)
[2016-09-26] MEDS ORDERED: DEXTROSE 50% 50 ML SYR IV PRN (09:00)
[2016-09-26] MEDS ORDERED: LISINOPRIL 10 MG TAB PO SCH (09:00)
[2016-09-26] MEDS ORDERED: ATORVASTATIN 40 MG TAB PO SCH (09:00)
[2016-09-26] MEDS ORDERED: GLUCOSE 40% GEL 15 GM TUBE PO PRN (09:00)
[2016-09-26] MEDS ORDERED: INSULIN GLARGINE SOLOSTAR 100 UNITS/ML 3 ML PEN SC ONE (09:00)
[2016-09-26] MEDS ORDERED: FUROSEMIDE 20 MG TAB PO SCH (09:00)
[2016-09-26] MEDS ORDERED: GLUCAGON FOR INJ 1 MG VIAL SQ PRN (09:00)
[2016-09-26] MEDS ORDERED: GLUCOSE 10 TABS/TUBE PO PRN (09:00)
--- NOTE | 2016-09-26 09:02 | Cardiology Consultation ---
Cardiology Consultation Date of Consultation: Sep 26, 2016. Requesting Physician: Dr. Hernandez Reason for Consultation: History of cardiomyopathy, coronary disease Pt evaluation today including: conversation w/ patient, physical exam, lab review, review of studies, review of inpatient medication list History of Present Illness This is a very pleasant 61-year-old woman who has previously received care at various different places including the [facility], then with [facility] , last seen there about one year ago. Evidently her insurance changed and she can no longer see them, she is therefore not made arrangements to be seen as yet but is planning to see our cardiologists. Her history is notable for diabetes and hypertension as well as a cardiomyopathy. She presented with congestive heart failure in July 2009 and echocardiography showed an ejection fraction in the 15% range. Cardiac catheterization was done on 08/05/2009, this showed mild diffuse coronary disease and a left ventriculogram described as severe diffuse hypokinesis and the summary of findings list ejection fraction is 50%, this appears to be contradictory. She was treated for her cardiomyopathy and coronary artery disease, and evidently has been doing well in terms of her symptomatology. She has not had further studies to the [facility] were don't know what her ejection fraction is currently. She presented to the emergency room on 09/25/2016 being referred from her physician's office for what I believe was an evaluation for dizziness and possible electrocardiographic changes. She denies exertional chest discomfort, she has been having dizziness and falls (which may be due to a CVA in the past) , she describes falling down and being unable to get up but it sounds like the inability to get up his mechanical. It does not sound like she is presyncope or syncope leading to the falls. She does not have palpitations. She does not have heart failure symptoms. Past Medical/Surgical History (1) Diabetic ketoacidosis (2) Basal ganglia infarction Nonischemic cardiomyopathy Coronary artery disease, nonobstructive Social History Smoking Status: Never Smoker History of Alcohol Use: No Review of Systems Constitutional: No fever, No weight loss, No weakness Respiratory: No cough, No wheezing, No shortness of breath, No dyspnea on exertion Cardiac: No chest pain, No orthopnea, No PND, No edema, No palpitations Abdomen: No pain, No nausea, No vomiting, No diarrhea, No GI bleeding Female : No problem reported Neurologic: + see HPI, + balance problems, No paralysis, No weakness, No numbness/tingling Heme: No abnormal bleeding/bruising, No clotting problems Endo: No fatigue Skin: No problem reported All Other Systems: Reviewed and Negative Allergies Coded Allergies: Erythromycin (Unverified Adverse Reaction, Intermediate, VOMITTING, ) Medications Current Inpatient Medications Medications (Trade) Dose Ordered Sig/Maria Isabel Route Start Time Stop Time Status Last Admin Dose Admin Heparin Sodium (Porcine) (Heparin Sq 5000 Unit/0.5ml) 5,000 unit Q8 SQ 09/25/16 22:00 10/25/16 21:59 09/26/16 06:22 5,000 UNIT Acetaminophen (Tylenol Tab) 650 mg Q4H PRN PO 09/25/16 17:15 10/25/16 17:14 09/26/16 07:59 650 MG Al Hydrox/Mg Hydrox/Simethicone (Maalox Max Susp) 15 ml Q4H PRN PO 09/25/16 17:15 10/25/16 17:14 Magnesium Hydroxide (Milk Of Magnesia Susp) 30 ml Q12H PRN PO 09/25/16 17:15 10/25/16 17:14 Ondansetron HCl (Zofran Inj) 4 mg Q6H PRN IV 09/25/16 17:15 10/25/16 17:14 09/26/16 08:19 4 MG Nitroglycerin (Nitrostat Tab) 0.4 mg UD PRN SL 09/25/16 17:15 10/25/16 17:14 Nitroglycerin (Nitroglycerin 2% Oint) 1 inch Q6H EXT 09/26/16 00:00 10/26/16 00:00 09/26/16 06:22 1 INCH Morphine Sulfate (MoRPHine SULFATE INJ) 2 mg Q30M PRN IV 09/25/16 17:15 10/09/16 17:14 09/25/16 23:00 2 MG Polyethylene (Miralax Powder Packet) 17 gm DAILY PRN PO 09/25/16 17:15 10/25/16 17:14 Miscellaneous Information (Consult Glycemic Management Pharmacy) 1 ea UD PRN N/A 09/25/16 17:15 10/25/16 17:14 Atorvastatin Calcium (Lipitor Tab) 40 mg QAM PO 09/26/16 09:00 10/26/16 08:59 09/26/16 08:00 40 MG Aspirin (Ecotrin Tab) 81 mg QAM PO 09/26/16 09:00 10/26/16 08:59 09/26/16 08:00 81 MG Miscellaneous Information (Pharmacist Discharge Med Rec Consult) 1 ea UD PRN N/A 09/25/16 17:15 10/25/16 17:14 Carvedilol (Coreg Tab) 6.25 mg BID PO 09/25/16 21:00 10/25/16 20:59 09/26/16 08:01 6.25 MG Lisinopril (Zestril Tab) 10 mg QAM PO 09/26/16 09:00 10/26/16 08:59 09/26/16 08:00 10 MG Spironolactone (Aldactone Tab) 25 mg QAM PO 09/26/16 09:00 10/26/16 08:59 09/26/16 07:59 25 MG Polyethylene (Miralax Powder Packet) 17 gm DAILY PO 09/26/16 09:00 10/26/16 08:59 09/26/16 08:13 17 GM Ceftriaxone Sodium 1 gm/ Dextrose 50 ml @ 100 mls/hr DAILY@1600 IV 09/26/16 16:00 09/30/16 15:59 Insulin Human Regular 250 units/ Sodium Chloride 252.5 ml @ 0 mls/hr DAILY@1130 IV 09/25/16 18:30 10/25/16 18:29 09/25/16 18:30 2.2 MLS/HR Lactobacillus Acidophilus (Lactinex Granules Pack) 1 gm TIDM PO 09/26/16 07:30 10/26/16 07:59 09/26/16 07:58 1 GM Potassium Chloride/Sodium Chloride 1,000 ml @ 40 mls/hr Q24H IV 09/25/16 21:30 10/25/16 21:29 09/25/16 21:53 40 MLS/HR Insulin Aspart (novoLOG ASPART) SLIDING SCALE ACHS SC 09/26/16 08:45 10/26/16 08:44 Physical Exam Vital Signs Past 12 Hours Date Time Temp Pulse Resp B/P (MAP) Pulse Ox O2 Delivery O2 Flow Rate FiO2 09/26/16 08:20 36.8 73 16 197/100 (132) 93 Room Air 73 192/126 (148) 09/26/16 04:00 Room Air 09/26/16 04:00 36.6 72 18 143/71 (95) 94 Room Air 09/26/16 00:00 Room Air 09/26/16 00:00 36.8 83 18 174/90 (118) 94 Room Air Constitutional: General Apperance: heathly-appearing Level of Distress: NAD Psychiatric: Mental Status: active & alert Head: normocephalic Eyes: EOM: EOMI ENMT: normal ENT inspection, hearing grossly normal Neck: supple, no masses Lungs: Respiratory effort: no dyspnea, good air movement Auscultation: breath sounds normal, no wheezing Cardiovascular: Heart Auscultation: RRR, no murmurs, no rubs, no gallops Peripheral Pulses: Bruits: none appreciated Abdomen: Bowel Sounds: normal Inspection & Palpation: soft, no tenderness, guarding & rebound, no masses Musculoskeletal: normal strength (5/5 throughout) Extremities: no edema Neurologic: Cranial Nerves: grossly intact Sensation: grossly intact Data Laboratory Results: Last 24 Hours Test 09/25/16 12:15 09/25/16 12:30 09/25/16 13:03 09/25/16 13:45 Urine Color YELLOW Urine Appearance CLEAR Urine pH 5.0 Urine Specific [place] 1.040 Urine Protein 2+ Urine Glucose (UA) 3+ Urine Ketones 3+ Urine Occult Blood 1+ Urine Nitrite POS Urine Bilirubin NEG Urine Urobilinogen NEG Urine Leukocyte Esterase TRACE Urine WBC (Auto) >30 /hpf Urine RBC (Auto) 5-10 /hpf Urine Hyaline Casts (Auto) 1-5 /lpf Urine Epithelial Cells (Auto) >30 /lpf Urine Bacteria (Auto) 4+ White Blood Count 6.94 K/uL Red Blood Count 5.07 M/uL Hemoglobin 14.7 g/dL Hematocrit 42.5 % Mean Corpuscular Volume 83.8 fL Mean Corpuscular Hemoglobin 29.0 pg Mean Corpuscular Hemoglobin Concent 34.6 g/dl Platelet Count 203 K/uL Mean Platelet Volume 10.8 fL Neutrophils (%) (Auto) 68.8 % Lymphocytes (%) (Auto) 22.0 % Monocytes (%) (Auto) 6.5 % Eosinophils (%) (Auto) 1.7 % Basophils (%) (Auto) 0.9 % Neutrophils # (Auto) 4.77 K/uL Lymphocytes # (Auto) 1.53 K/uL Monocytes # (Auto) 0.45 K/uL Eosinophils # (Auto) 0.12 K/uL Basophils # (Auto) 0.06 K/uL RDW Standard Deviation 41.1 fL RDW Coefficient of Variation 13.5 % Immature Granulocyte % (Auto) 0.1 % Immature Granulocyte # (Auto) 0.01 K/uL Prothrombin Time 9.9 SECONDS Prothromb Time International Ratio 0.9 Activated Partial Thromboplast Time 22.5 SECONDS Partial Thromboplastin Ratio 0.9 Sodium Level 136 mmol/L Potassium Level 4.0 mmol/L Chloride Level 99 mmol/L Carbon Dioxide Level 24 mmol/L Anion Gap 13.0 mmol/L Blood Urea Nitrogen 18 mg/dl Creatinine 0.79 mg/dl Est Creatinine Clear Calc Drug Dose 83.7 ml/min Estimated GFR () 93.6 Estimated GFR (Non- 80.8 BUN/Creatinine Ratio 22.7 Random Glucose 492 mg/dl Estimated Average Glucose 421 mg/dl Hemoglobin A1c 16.3 % Calcium Level 10.5 mg/dl Magnesium Level 2.1 mg/dl Total Bilirubin 0.5 mg/dl Aspartate Amino Transf (AST/SGOT) 14 U/L Alanine Aminotransferase (ALT/SGPT) 26 U/L Alkaline Phosphatase 99 U/L Total Creatine Kinase 24 U/L Creatine Kinase MB < 0.5 ng/ml Creatine Kinase MB Ratio Total Protein 7.2 gm/dl Albumin 3.0 gm/dl Globulin 4.2 gm/dl Albumin/Globulin Ratio 0.7 Beta-Hydroxybutyric Acid 35.70 mg/dL Thyroid Stimulating Hormone (TSH) 2.130 uIu/ml Lyme Disease IgG Antibody POS Lyme Disease IgM Antibody NEG Bedside Troponin I < 0.030 ng/ml [id number] Natriuretic Peptide 941 pg/ml Test 09/25/16 20:34 09/25/16 21:10 09/25/16 21:35 09/25/16 22:30 Bedside Glucose 305 mg/dl 297 mg/dl 296 mg/dl Venous Blood pH 7.47 Sodium Level 138 mmol/L Potassium Level 3.3 mmol/L Chloride Level 100 mmol/L Carbon Dioxide Level 27 mmol/L Anion Gap 11.0 mmol/L Blood Urea Nitrogen 15 mg/dl Creatinine 0.90 mg/dl Est Creatinine Clear Calc Drug Dose 74.2 ml/min Estimated GFR () 80.0 Estimated GFR (Non- 69.0 BUN/Creatinine Ratio 16.6 Random Glucose 326 mg/dl Calcium Level 9.7 mg/dl Phosphorus Level 1.6 mg/dl Magnesium Level 1.7 mg/dl Beta-Hydroxybutyric Acid 18.60 mg/dL Test 09/25/16 23:30 09/25/16 23:44 09/26/16 00:31 09/26/16 01:25 Bedside Glucose 317 mg/dl 293 mg/dl 283 mg/dl Venous Blood pH 7.42 Sodium Level 137 mmol/L Potassium Level 3.4 mmol/L Chloride Level 100 mmol/L Carbon Dioxide Level 29 mmol/L Anion Gap 8.0 mmol/L Blood Urea Nitrogen 17 mg/dl Creatinine 0.92 mg/dl Est Creatinine Clear Calc Drug Dose 72.6 ml/min Estimated GFR () 77.9 Estimated GFR (Non- 67.2 BUN/Creatinine Ratio 18.0 Random Glucose 323 mg/dl Calcium Level 9.6 mg/dl Phosphorus Level 1.4 mg/dl Magnesium Level 2.1 mg/dl Beta-Hydroxybutyric Acid 15.99 mg/dL Test 09/26/16 02:26 09/26/16 03:29 09/26/16 05:06 09/26/16 05:23 Bedside Glucose 246 mg/dl 191 mg/dl 128 mg/dl 146 mg/dl Test 09/26/16 05:56 09/26/16 06:07 White Blood Count 6.49 K/uL Red Blood Count 4.76 M/uL Hemoglobin 13.4 g/dL Hematocrit 40.1 % Mean Corpuscular Volume 84.2 fL Mean Corpuscular Hemoglobin 28.2 pg Mean Corpuscular Hemoglobin Concent 33.4 g/dl Platelet Count 191 K/uL Mean Platelet Volume 10.1 fL Neutrophils (%) (Auto) 32.3 % Lymphocytes (%) (Auto) 52.9 % Monocytes (%) (Auto) 10.3 % Eosinophils (%) (Auto) 3.5 % Basophils (%) (Auto) 0.8 % Neutrophils # (Auto) 2.10 K/uL Lymphocytes # (Auto) 3.43 K/uL Monocytes # (Auto) 0.67 K/uL Eosinophils # (Auto) 0.23 K/uL Basophils # (Auto) 0.05 K/uL RDW Standard Deviation 41.8 fL RDW Coefficient of Variation 13.7 % Immature Granulocyte % (Auto) 0.2 % Immature Granulocyte # (Auto) 0.01 K/uL Venous Blood pH 7.41 Sodium Level 139 mmol/L Potassium Level 3.6 mmol/L Chloride Level 103 mmol/L Carbon Dioxide Level 27 mmol/L Anion Gap 9.0 mmol/L Blood Urea Nitrogen 17 mg/dl Creatinine 0.65 mg/dl Est Creatinine Clear Calc Drug Dose 102.8 ml/min Estimated GFR () 111.1 Estimated GFR (Non- 95.8 BUN/Creatinine Ratio 26.0 Random Glucose 149 mg/dl Calcium Level 10.0 mg/dl Phosphorus Level 3.0 mg/dl Magnesium Level 2.2 mg/dl Total Bilirubin 0.2 mg/dl Aspartate Amino Transf (AST/SGOT) 13 U/L Alanine Aminotransferase (ALT/SGPT) 23 U/L Alkaline Phosphatase 80 U/L Total Protein 6.2 gm/dl Albumin 2.6 gm/dl Globulin 3.6 gm/dl Albumin/Globulin Ratio 0.7 Triglycerides Level 434 mg/dl Cholesterol Level 271 mg/dl HDL Cholesterol 32 mg/dl LDL Cholesterol, Calculated mg/dl VLDL Cholesterol, Calculated mg/dl Cholesterol/HDL Ratio 8.5 Bedside Glucose 147 mg/dl Imaging: Echocardiography: Done and results pending EKG: Sinus rhythm, nonspecific inferolateral ST-T abnormalities Telemetry reviewed: Sinus rhythm with PACs, no significant arrhythmia Assessment & Plan #1. Dizziness and falling: This does not sound cardiac, it is conceivable that this is due to an arrhythmia as she has not had these symptoms in the hospital but it doesn't sound like it. I would keep her in the monitor while she is here to make certain that she does not have a significant arrhythmia. #2. Electrocardiographic abnormalities: She does have inferolateral ST-T abnormalities which are a little different than they were in 2010. She does have borderline positive cardiac enzymes. She has known coronary artery disease which was nonobstructive in 2010. Although this is probably not related to her presentation we probably should evaluate her for ischemia, but I would not do that at the present time. We may want to do that this admission however with a pharmacologic stress test. #3. Troponin: Her troponin was not elevated on admission. She does not have symptoms to suggest active ischemia, her electrocardiogram is little bit different than before however. Depending on her hospital course we may want to evaluate for ischemia. #4. Cardiomyopathy: She had a cardiomyopathy identified in 2009, based on her history that quickly resolved. We will review her echocardiogram to make sure it has not recurred. #5. Coronary disease: At catheterization she had diffuse coronary disease but it was nonobstructive at the time, but that was 7 years ago. It certainly could have progressed. Her cholesterol is markedly elevated as are her triglycerides. I would certainly increase her atorvastatin if possible, we can do that over the long run. He may want to specifically treat her hypertriglyceridemia as well. Thank you for allowing me to participate in her care.
--- NOTE | 2016-09-26 09:57 | Neurology Consultation ---
Neurology Consultation Date of Consultation: Sep 26, 2016. Attending Physician: Quynh Olvera MD Primary Care Physician: Bhargavi Black D.O. Reason for Consultation: Patient is a 61-year-old, who was asked to see the request of Dr. Gore and Dr. Chas Witt, for neurologic evaluation regarding stroke History of Present Illness Source: patient, caregiver, hospital records Patient has had hypertension and diabetes since age 40. She's been on insulin for 20 years. The patient has had congestive heart failure with a low ejection fraction, proximally 7 years and has been on a baby aspirin for proximally 7 years. Over the last year, the patient has noted the insidious onset and gradual worsening of balance issues. She will trip and lose her balance and Fall. She is not getting vertigo or syncope. She doesn't feel particularly weak in her arms or legs and doesn't have overt numbness of her feet. She does have some incontinence of urine. Her mentation is good as is her vision. She does not have headaches or pain. Because of acute dizziness and decreased balance she went to her family physician who sent her to the emergency room. She arrived at 09/25/16 at 1155 hours with a temperature 36.7, respiratory rate 18, pulse 80, blood pressure 195 /100, and O2 saturation 94%. Neurologic examination was described as unremarkable on admission. Chest x-ray was unremarkable. CT scan of the head showed an old left basal ganglia lacune Carotid ultrasound showed 30-50% stenosis of the right internal carotid artery. The left was unremarkable. MRI of the brain showed a subacute 7 mm left periventricular stroke with mild to moderate scattered old small vessel ischemia and mild generalized atrophy. CBC was unremarkable. Glucose was 492 and hemoglobin A1c was 16.3. Cholesterol was 271 and triglycerides are 434. Escherichia coli was found in the urine. This morning the patient feels tired. She did not sleep well. She has some bifrontal headache due to nitro paste. Past Medical/Surgical History Medical Problems: (1) Hyperglycemia Status: Acute Long-standing insulin-dependent diabetes Long-standing hypertension Congestive heart failure Post-tonsillectomy, tubal ligation, and eye muscle surgery as a child Family History Mother is alive at 92 with a senile dementia the Alzheimer's type. Father age 85 with diabetes, hypertension, and congestive heart failure. Social History The patient never smoked cigarettes. She does not use alcohol. 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 Smoking Status: Never smoker Smokeless Tobacco Use: No Alcohol Use: none Drug Use: none Marital Status: Housing Status: lives with family Occupation Status: employed, other Allergies Coded Allergies: Erythromycin (Unverified Adverse Reaction, Intermediate, VOMITTING, ) Current Inpatient Medications Current Inpatient Medications Medications (Trade) Dose Ordered Sig/Maria Isabel Route Start Time Stop Time Status Last Admin Dose Admin Heparin Sodium (Porcine) (Heparin Sq 5000 Unit/0.5ml) 5,000 unit Q8 SQ 09/25/16 22:00 10/25/16 21:59 09/26/16 06:22 5,000 UNIT Acetaminophen (Tylenol Tab) 650 mg Q4H PRN PO 09/25/16 17:15 10/25/16 17:14 09/26/16 07:59 650 MG Al Hydrox/Mg Hydrox/Simethicone (Maalox Max Susp) 15 ml Q4H PRN PO 09/25/16 17:15 10/25/16 17:14 Magnesium Hydroxide (Milk Of Magnesia Susp) 30 ml Q12H PRN PO 09/25/16 17:15 10/25/16 17:14 Ondansetron HCl (Zofran Inj) 4 mg Q6H PRN IV 09/25/16 17:15 10/25/16 17:14 09/26/16 08:19 4 MG Nitroglycerin (Nitrostat Tab) 0.4 mg UD PRN SL 09/25/16 17:15 10/25/16 17:14 Nitroglycerin (Nitroglycerin 2% Oint) 1 inch Q6H EXT 09/26/16 00:00 10/26/16 00:00 09/26/16 06:22 1 INCH Morphine Sulfate (MoRPHine SULFATE INJ) 2 mg Q30M PRN IV 09/25/16 17:15 10/09/16 17:14 09/25/16 23:00 2 MG Polyethylene (Miralax Powder Packet) 17 gm DAILY PRN PO 09/25/16 17:15 10/25/16 17:14 Miscellaneous Information (Consult Glycemic Management Pharmacy) 1 ea UD PRN N/A 09/25/16 17:15 10/25/16 17:14 Atorvastatin Calcium (Lipitor Tab) 40 mg QAM PO 09/26/16 09:00 10/26/16 08:59 09/26/16 08:00 40 MG Aspirin (Ecotrin Tab) 81 mg QAM PO 09/26/16 09:00 10/26/16 08:59 09/26/16 08:00 81 MG Miscellaneous Information (Pharmacist Discharge Med Rec Consult) 1 ea UD PRN N/A 09/25/16 17:15 10/25/16 17:14 Carvedilol (Coreg Tab) 6.25 mg BID PO 09/25/16 21:00 10/25/16 20:59 09/26/16 08:01 6.25 MG Lisinopril (Zestril Tab) 10 mg QAM PO 09/26/16 09:00 10/26/16 08:59 09/26/16 08:00 10 MG Spironolactone (Aldactone Tab) 25 mg QAM PO 09/26/16 09:00 10/26/16 08:59 09/26/16 07:59 25 MG Polyethylene (Miralax Powder Packet) 17 gm DAILY PO 09/26/16 09:00 10/26/16 08:59 09/26/16 08:13 17 GM Ceftriaxone Sodium 1 gm/ Dextrose 50 ml @ 100 mls/hr DAILY@1600 IV 09/26/16 16:00 09/30/16 15:59 Lactobacillus Acidophilus (Lactinex Granules Pack) 1 gm TIDM PO 09/26/16 07:30 10/26/16 07:59 09/26/16 07:58 1 GM Potassium Chloride/Sodium Chloride 1,000 ml @ 40 mls/hr Q24H IV 09/25/16 21:30 10/25/16 21:29 09/25/16 21:53 40 MLS/HR Insulin Aspart (novoLOG ASPART) SLIDING SCALE ACHS SC 09/26/16 08:45 10/26/16 08:44 09/26/16 09:05 8 UNITS Glucose (Glucose 40% Gel) 15-30 GRAMS 15 GRAMS... UD PRN PO 09/26/16 09:00 10/26/16 08:59 Glucose (Glucose Chew Tab) 4-8 Tablets 4 Tabl... UD PRN PO 09/26/16 09:00 10/26/16 08:59 Dextrose (Dextrose 50% 50ML Syringe) 25-50ML OF 50% DW IV FOR... UD PRN IV 09/26/16 09:00 10/26/16 08:59 Glucagon (Glucagon Inj) 1 mg UD PRN SQ 09/26/16 09:00 10/26/16 08:59 Review of Systems Constitutional: + fatigue, No weakness Eyes: No worsening of vision, No diplopia ENT: No hearing loss, No tinnitus Respiratory: No cough, No shortness of breath Cardiovascular: No chest pain, No palpitations Abdomen: No pain, No nausea Musculoskeletal: No joint pain, No muscle pain Genitourinary - Female: No dysuria, No urinary incontinence Neurologic: + balance problems, No memory loss, No weakness, No numbness/ tingling, No vertigo Psychiatric: No depression symptoms, No anxiety Endocrine: + fatigue Hematologic / Lymphatic: No abnormal bleeding/bruising Integumentary: No rash Allergic / Immunologic: No hives Physical Exam Vital Signs (Past 24 Hrs): Date Time Temp Pulse Resp B/P (MAP) Pulse Ox O2 Delivery O2 Flow Rate FiO2 09/26/16 08:20 36.8 73 16 197/100 (132) 93 Room Air 73 192/126 (148) 09/26/16 08:00 94 Room Air 09/26/16 04:00 Room Air 09/26/16 04:00 36.6 72 18 143/71 (95) 94 Room Air 09/26/16 00:00 Room Air 09/26/16 00:00 36.8 83 18 174/90 (118) 94 Room Air 09/25/16 20:30 37.0 80 18 181/97 96 Room Air 09/25/16 18:36 36.7 78 16 214/106 98 09/25/16 17:48 214/106 09/25/16 16:31 78 16 09/25/16 16:26 76 19 09/25/16 16:21 80 17 214/106 98 Room Air 09/25/16 16:06 85 15 09/25/16 15:51 88 19 09/25/16 15:24 84 20 205/94 95 Room Air 09/25/16 15:21 85 12 205/94 98 09/25/16 15:09 84 18 199/87 97 Room Air 09/25/16 15:08 199/87 09/25/16 14:06 83 17 09/25/16 13:51 78 14 09/25/16 13:42 86 20 200/100 98 09/25/16 13:36 79 18 09/25/16 13:26 98 Room Air 09/25/16 13:25 200/100 09/25/16 13:23 221/107 09/25/16 13:22 88 20 212/109 86 221/107 93 200/100 09/25/16 13:22 212/109 09/25/16 13:06 80 15 09/25/16 12:51 81 26 09/25/16 12:48 80 15 194/85 97 Room Air 09/25/16 12:48 194/85 09/25/16 12:36 82 13 09/25/16 12:31 75 09/25/16 11:55 36.7 80 18 195/100 94 Room Air The patient is left-handed. The patient is awake and alert. Speech is normal without aphasia or dysarthria. Mentation and thought processes are intact with orientation and normal fund of knowledge. Mood and affect are normal and appropriate. Appearance and grooming are normal. The discs are difficult to visualize but otherwise sharp with positive venous pulsations. There are no exudates, hemorrhages, or blood vessel changes seen. Pupils are 3mm bilaterally and reactive to light. Extraocular eye muscles are intact without nystagmus. Visual acuity and visual asencio seem normal grossly to confrontation. There are no deficits to sensation of the face bilaterally. Corneal reflexes are positive bilaterally. Facial strength and symmetry is normal bilaterally. Hearing seems intact grossly to voice and finger rub. Palate moves well without asymmetry. There is normal sternocleidomastoid and trapezius strength bilaterally. Tongue is midline with good strength bilaterally. Neck is with full range of motion without discomfort. There are no cervical bruits. There are no cranial or ocular bruits. Heart is without murmur. Cervical, thoracic, and lumbar spine are nontender to palpation. Gait is slightly wide-based and cautious. Turns are slow. With feet together and eyes open she is fairly stable. With eyes closed she sways considerably. With outstretched arms there is no drift. There are no resting, postural, or action tremors. There is no ataxia with lduvoo-ir-bume testing. There is good facility in the hands. There are no abnormal involuntary movements noted. Motor strength is 5/5 diffusely in the arms bilaterally including deltoids, biceps, brachioradialis, wrist flexors and extensors, police judge, and intrinsic hand muscles. Motor strength is 5/5 diffusely in the legs bilaterally including hip flexors, quadriceps, hamstring, gastrocnemius, tibialis anterior, tibialis posterior, and peroneii muscles bilaterally. Toe extensors are normal and there is good bulk in the extensor digitorum brevis muscle bilaterally. The limbs have good tone without rigidity or spasticity, and there is no atrophy noted. Muscle bulk is normal, there is no tenderness, no myotonia noted to percussion, and no fasciculations seen. Sensory examination is intact to pin and touch throughout all four limbs. There is [id number] vibratory sense loss in the feet bilaterally. Reflexes are 0/4 in the biceps, triceps, brachioradialis, quadriceps, and Achilles tendons bilaterally. Toes are downgoing with plantar stimulation bilaterally. Peripheral pulses are present and of normal quality distally in all four limbs. There is some peripheral edema noted. Laboratory Results Past 24 Hours: 09/26/16 05:56 Red Blood Count 4.76, Mean Corpuscular Volume 84.2, Mean Corpuscular Hemoglobin 28.2, Mean Corpuscular Hemoglobin Concent 33.4, Mean Platelet Volume 10.1, Neutrophils (%) (Auto) 32.3, Lymphocytes (%) (Auto) 52.9, Monocytes (%) (Auto) 10.3, Eosinophils (%) (Auto) 3.5, Basophils (%) (Auto) 0.8, Neutrophils # (Auto ) 2.10, Lymphocytes # (Auto) 3.43, Monocytes # (Auto) 0.67, Eosinophils # (Auto ) 0.23, Basophils # (Auto) 0.05 09/26/16 05:56 Test 09/25/16 12:15 09/25/16 12:30 09/25/16 13:03 09/25/16 13:45 Urine Color YELLOW Urine Appearance CLEAR (CLEAR) Urine pH 5.0 (4.5-7.5) Urine Specific [place] 1.040 (1.000-1.030) Urine Protein 2+ (NEG) Urine Glucose (UA) 3+ (NEG) Urine Ketones 3+ (NEG) Urine Occult Blood 1+ (NEG) Urine Nitrite POS (NEG) Urine Bilirubin NEG (NEG) Urine Urobilinogen NEG (NEG) Urine Leukocyte Esterase TRACE (NEG) Urine WBC (Auto) >30 /hpf (0-5) Urine RBC (Auto) 5-10 /hpf (0-4) Urine Hyaline Casts (Auto) 1-5 /lpf (0-5) Urine Epithelial Cells (Auto) >30 /lpf (0-5) Urine Bacteria (Auto) 4+ (NEG) Prothrombin Time 9.9 SECONDS (9.0-12.0) Prothromb Time International Ratio 0.9 (0.9-1.1) Activated Partial Thromboplast Time 22.5 SECONDS (21.0-31.0) Partial Thromboplastin Ratio 0.9 Estimated Average Glucose 421 mg/dl Hemoglobin A1c 16.3 % (4.5-5.6) Total Creatine Kinase 24 U/L (26-192) Creatine Kinase MB < 0.5 ng/ml (0.5-3.6) Thyroid Stimulating Hormone (TSH) 2.130 uIu/ml (0.300-4.500) Lyme Disease IgG Antibody POS (NEG) Creatine Kinase MB Ratio (0-3.0) Bedside Troponin I < 0.030 ng/ml (0-0.045) AA-Fjt-T-Type Natriuretic Peptide 941 pg/ml (0-900) Test 09/25/16 23:44 09/26/16 05:56 09/26/16 06:07 Beta-Hydroxybutyric Acid 15.99 mg/dL (0.2-2.81) White Blood Count 6.49 K/uL (4.8-10.8) Red Blood Count 4.76 M/uL (4.2-5.4) Hemoglobin 13.4 g/dL (12.0-16.0) Hematocrit 40.1 % (37-47) Mean Corpuscular Volume 84.2 fL (80-100) Mean Corpuscular Hemoglobin 28.2 pg (25-34) Mean Corpuscular Hemoglobin Concent 33.4 g/dl (32-36) Platelet Count 191 K/uL (130-400) Mean Platelet Volume 10.1 fL (7.4-10.4) Neutrophils (%) (Auto) 32.3 % Lymphocytes (%) (Auto) 52.9 % Monocytes (%) (Auto) 10.3 % Eosinophils (%) (Auto) 3.5 % Basophils (%) (Auto) 0.8 % Neutrophils # (Auto) 2.10 K/uL (1.4-6.5) Lymphocytes # (Auto) 3.43 K/uL (1.2-3.4) Monocytes # (Auto) 0.67 K/uL (0.11-0.59) Eosinophils # (Auto) 0.23 K/uL (0-0.5) Basophils # (Auto) 0.05 K/uL (0-0.2) RDW Standard Deviation 41.8 fL (36.4-46.3) RDW Coefficient of Variation 13.7 % (11.5-14.5) Immature Granulocyte % (Auto) 0.2 % Immature Granulocyte # (Auto) 0.01 K/uL (0.00-0.02) Venous Blood pH 7.41 (7.36-7.41) Anion Gap 9.0 mmol/L (3-11) Est Creatinine Clear Calc Drug Dose 102.8 ml/min Estimated GFR () 111.1 Estimated GFR (Non- 95.8 BUN/Creatinine Ratio 26.0 (10-20) Calcium Level 10.0 mg/dl (8.5-10.1) Phosphorus Level 3.0 mg/dl (2.5-4.9) Magnesium Level 2.2 mg/dl (1.8-2.4) Total Bilirubin 0.2 mg/dl (0.2-1) Aspartate Amino Transf (AST/SGOT) 13 U/L (15-37) Alanine Aminotransferase (ALT/SGPT) 23 U/L (12-78) Alkaline Phosphatase 80 U/L (45-117) Total Protein 6.2 gm/dl (6.4-8.2) Albumin 2.6 gm/dl (3.4-5.0) Globulin 3.6 gm/dl (2.5-4.0) Albumin/Globulin Ratio 0.7 (0.9-2) Triglycerides Level 434 mg/dl (0-150) Cholesterol Level 271 mg/dl (0-200) HDL Cholesterol 32 mg/dl LDL Cholesterol, Calculated mg/dl VLDL Cholesterol, Calculated mg/dl Cholesterol/HDL Ratio 8.5 Hepatitis C Antibody Screen NEG (NEG) Bedside Glucose 147 mg/dl (70-90) Imaging Brain MRI WITHOUT CONTRAST HISTORY: Stroke Stroke TECHNIQUE: Multiplanar multisequence MRI of the brain was performed without the use of contrast. COMPARISON STUDY: None. FINDINGS: Diffusion-weighted images show a small focus of acute ischemic change measuring 7 mm left paraventricular distribution. No additional foci of abnormal signal characteristics are identified. Ventricular system is midline. There is a component of chronic small vessel change involving the periventricular deep white matter regions. Ventricular system is midline. There is no ventricular distention. Basilar cisterns are unremarkable. Sella and parasellar regions are unremarkable. IMPRESSION: 1. Small acute/subacute infarct left paraventricular region 2. This measures approximately 7 mm. 3. Mild chronic small vessel change throughout both cerebral hemispheres. 3. Otherwise negative study. Electronically signed by: Colton Oseguera M.D. 09/25/2016 9:01 PM Impression 1. Subacute left basal ganglia stroke. This is not necessarily within the week but has to be less than 3 months or would not show up on diffusion imaging. The etiology of the stroke is small vessel ischemic disease and risk factors include hypertension, diabetes, dyslipidemia. I reviewed the films with the patient. NIH stroke scale equals 0. She has no focal neurologic deficits, encephalopathy, or meningeal signs. 2. Chronic cerebral ischemia lccp-ai-klshhzko nature seen on MRI. 3. Gait disturbance. 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 She has absent reflexes and diminished vibratory sense. This would give her a sensory ataxia. 4. Hypertension, not adequately controlled 5. Diabetes, not adequately controlled. 6. Dyslipidemia, not adequately controlled. 7. Equivocal Lyme antibody test awaiting Western blot. Plan 1. Control blood pressure, striving for mean arterial pressure of approximately 100 2. Control glucose 3. Initiate high-dose statin for dyslipidemia 4. Discontinue aspirin and initiate clopidogrel 75 mg daily. Her events were on chronic aspirin. 5. PT, OT, and speech therapy consults. She needs gait strengthening and training and may benefit from a rehabilitation hospital stay after hospitalization here. 6. Awaiting Lyme Western blot. 7. Awaiting echocardiogram results. I spoke with Dr. Cagle regarding this case including differential diagnosis and treatment options.
--- NOTE | 2016-09-26 10:00 | Pharmacy Progress Note ---
Glycemic Control Intl Consult Date of Service Sep 26, 2016. Scope Glycemic Pharmacist consulted by Dr Hernandez on 09/25/16 for glycemic control and to write orders per [facility] inpatient glycemic control protocol Objective Weight (Kilograms): 90.200 Accuchecks BSG (last 24hrs): Test 09/25/16 12:30 09/25/16 20:34 09/25/16 21:10 09/25/16 21:35 Random Glucose 492 mg/dl (70-99) 326 mg/dl (70-99) Bedside Glucose 305 mg/dl (70-90) 297 mg/dl (70-90) Test 09/25/16 22:30 09/25/16 23:30 09/25/16 23:44 09/26/16 00:31 Bedside Glucose 296 mg/dl (70-90) 317 mg/dl (70-90) 293 mg/dl (70-90) Random Glucose 323 mg/dl (70-99) Test 09/26/16 01:25 09/26/16 02:26 09/26/16 03:29 09/26/16 05:06 Bedside Glucose 283 mg/dl (70-90) 246 mg/dl (70-90) 191 mg/dl (70-90) 128 mg/dl (70-90) Test 09/26/16 05:23 09/26/16 05:56 09/26/16 06:07 Bedside Glucose 146 mg/dl (70-90) 147 mg/dl (70-90) Random Glucose 149 mg/dl (70-99) Laboratory Data (last 24hrs) HbA1c Test 09/25/16 12:30 Hemoglobin A1c 16.3 % (4.5-5.6) H Recent Pertinent Medications Outpatient Anti-diabetic Regimen: * N/A The patient is currently receiving: IV insulin infusion per DKA Protocol, goal range 150-250mg/dl Assessment & Plan ASSESSMENT: * 61yo female with poorly controlled diabetes - A1c is significantly elevated at 16.3%. Pt will need metformin + SQ basal bolus insulin regimen at discharge * Goal A1c for patient based on age and co-morbidities is ~7% * Pt initiated on IV insulin infusion for hyperglycemia and "DKA" * Hyperglycemia resolved, AG closed, Pt tolerating PO --> pt meets criteria for transition to SQ basal bolus * IV insulin infusion running at average of ~ 3 units hr while NPO --> correlates to a total basal dose of ~ 72 units day * This is likely overestimating/too aggressive to convert directly to SQ basal dose since pt with severe insulin resistance secondary to DKA, dehydration, and glucose toxicity. * Will instead start with high stress weight based dosing and titrate based on BSG trends. * ADA & AACE recommend a goal blood sugar range 140-180 mg/dl for the majority of critically ill & non-critically ill patients. However, more stringent targets may be selected in individual cases. PLAN FOR INPATIENT GLYCEMIC CONTROL: * D/C IV insulin infusion * Basal insulin * Lantus 30 units SQ x 1 dose this AM * Will give PM dose of Lantus based on degree of hyperglycemia * If BSG < 180 --> No Lantus this evening * If BSG 180+ --> Give Lantus 15 units * Bolus insulin * NovoLog per scale ACHS or Q6hrs while NPO. Additional checks + coverage at 0000 & 0400 tonight to help determine insulin needs * Goal Range: Low 120 mg/dL - High 160 mg/dL (slightly higher goal range secondary to elevated A1c, pt may feel hypo at otherwise normal BSG) * Correction Factor: 20 mg/dL/unit * Nutritional / Prandial insulin per carb ratio of 1 unit per 6 grams CHO consumed * Please note that the plan above was derived based on current level of insulin resistance and hospital stress. These recommendations are appropriate for inpatient admission only. Plan of care upon discharge will need to be reassessed to avoid potential outpatient hypo/hyperglycemia. Thank you.
--- NOTE | 2016-09-26 10:35 | ECHOCARDIOGRAM REPORT ---
*NOTICE TO RECEIVING CONSTITUTION PARTY AGENCY This information is strictly Confidential and protected under [place] law. [place] law prohibits you from making any further disclosure of this information unless further disclosure is expressly permitted by the written consent of the person to whom it pertains or is authorized by law. A general authorization for the release of medical or other information is not sufficient for this purpose. Hospital accepts no responsibility if the information is made available to any other person, INCLUDING THE PATIENT. Interpretation Summary * Name: SHALOM KRAMER Study Date: 09/26/2016 07:09 AM BP: 143/71 mmHg * Patient Location: C.2T\S\S234\S\1 HR: 76 * : 1955 (M/d/yyyy) Gender: Female Height: 66 in * Age: 61 yrs Ethnicity: CA Weight: 194 lb * Ordering Physician: Colton Hernandez * Referring Physician: Bhargavi Black D.O. * Performed By: Stacy Quarles * * Reason For Study: CHF * BSA: 2.0 m2 * -- Conclusions -- * 1. Normal LV size, mild concentric LVH. * 2. Low normal LV systolic function. EF 50-55%. No regional wall motion abnormalities. * 3. Normal RV size and function. * 4. No significant valvular abnormalities. * 5. Elevated estimated CVP (15 mmHg). Procedure Details * A complete two-dimensional transthoracic echocardiogram was performed (2D, M-mode, Doppler and color flow Doppler). * A contrast injection of Definity was performed to improve assessment of LV function. * Contrast was injected into an intravenous site in the left arm. * One vial of Definity ultrasound contrast was diluted in normal saline to a total volume of 10 ml. A total of '3' ml of solution was administered during imaging. * Lot # [id number] of Definity utilized for procedure. * Expiration date 10/20. * The attending nurse who injected the contrast agent was CODY ALICIA RN. Left Ventricle * The left ventricle is grossly normal size. * There is mild concentric left ventricular hypertrophy. * Ejection Fraction = 50-55%. * No regional wall motion abnormalities noted. Right Ventricle * The right ventricle is grossly normal size. * The right ventricular systolic function is normal as assessed by tricuspid annular plane systolic excursion (TAPSE) (normal >1.5 cm). Atria * The left atrial size is normal. * Right atrial size is normal. * There is no evidence of atrial septal defect, but resolution does not allow assessment for a patent foramen ovale. Mitral Valve * The mitral valve is grossly normal. * There is no mitral valve stenosis. * There is trace mitral regurgitation. Tricuspid Valve * The tricuspid valve is not well visualized, but is grossly normal. * There is no tricuspid stenosis. * Significant tricuspid regurgitation is absent. Aortic Valve * Aortic valve sclerosis mild, without significant aortic valvular stenosis. * No hemodynamically significant valvular aortic stenosis. * There is no significant aortic regurgitation. Pulmonic Valve * The pulmonary valve is inadequately visualized, but the Doppler data is adequate for interpretation. * Pulmonic stenosis is absent. * There is no significant pulmonary regurgitation. Great Vessels * The aortic root and proximal ascending aorta are normal sized. Pericardium/Pleural * There is no pericardial effusion. Great Vessels * Dilated inferior vena cava with reduced collapsability with sniff indicates an elevated right atrial pressure of 15 mmHg MMode 2D Measurements and Calculations IVSd 1.3 cm IVSs 1.3 cm LVIDd 5.4 cm LVIDs 4.0 cm LVPWd 1.1 cm LVPWs 2.2 cm IVS/LVPW 1.2 FS 25.8 % EDV(Teich) 142.0 ml ESV(Teich) 70.7 ml EF(Teich) 50.2 % EDV(cubed) 158.5 ml ESV(cubed) 64.9 ml EF(cubed) 59.1 % % IVS thick -0.24 % % LVPW thick 98.3 % LV mass(C)d 270.4 grams LV mass(C)dI 136.9 grams/m\S\2 LV mass(C)s 301.5 grams LV mass(C)sI 152.7 grams/m\S\2 CO(Teich) 5.2 l/min CI(Teich) 2.6 l/min/m\S\2 SV(Teich) 71.3 ml SI(Teich) 36.1 ml/m\S\2 CO(cubed) 6.8 l/min CI(cubed) 3.5 l/min/m\S\2 SV(cubed) 93.7 ml SI(cubed) 47.4 ml/m\S\2 EPSS 1.6 cm ACS 1.1 cm asc Aorta Diam 2.9 cm LVOT diam 1.9 cm LVOT area 3.0 cm\S\2 LVAd ap4 34.5 cm\S\2 LVLd ap4 7.9 cm EDV(MOD-sp4) 124.0 ml LVAs ap4 23.0 cm\S\2 LVLs ap4 7.1 cm ESV(MOD-sp4) 60.5 ml EF(MOD-sp4) 51.2 % LVAd ap2 21.6 cm\S\2 LVLd ap2 7.1 cm EDV(MOD-sp2) 55.7 ml LVAs ap2 13.6 cm\S\2 LVLs ap2 5.8 cm ESV(MOD-sp2) 27.1 ml EF(MOD-sp2) 51.3 % CO(MOD-sp4) 4.6 l/min CI(MOD-sp4) 2.3 l/min/m\S\2 SV(MOD-sp4) 63.5 ml SI(MOD-sp4) 32.2 ml/m\S\2 CO(MOD-sp2) 2.1 l/min CI(MOD-sp2) 1.1 l/min/m\S\2 SV(MOD-sp2) 28.6 ml SI(MOD-sp2) 14.5 ml/m\S\2 Doppler Measurements and Calculations MV E max yusef 103.3 cm/sec MV A max yusef 115.0 cm/sec MV E/A 0.90 MV dec time 0.21 sec Ao V2 max 158.1 cm/sec Ao max PG 10.0 mmHg Ao max PG (full) 7.4 mmHg MITA(V,A) 1.5 cm\S\2 MITA(V,D) 1.5 cm\S\2 LV V1 max PG 2.6 mmHg LV V1 max 80.2 cm/sec PA V2 max 87.8 cm/sec PA max PG 3.1 mmHg
[2016-09-26] MEDS ORDERED: HYDROCHLOROTHIAZIDE 25 MG TAB PO STA (12:42)
[2016-09-26] MEDS ORDERED: CLOPIDOGREL BISULFATE 75 MG TAB PO ONE (13:00)
[2016-09-26 13:41] LABS: HEMATOCRIT 43.2 % (37-47); MEAN CELL VOLUME 84.9 fL (80-100); MEAN CORPUSCULAR HEMOGLOBIN 29.3 pg (25-34); MEAN CORPUSCULAR HGB CONC 34.5 g/dl (32-36); MEAN PLATELET VOLUME 10.6 fL (7.4-10.4); PLATELET COUNT 208 K/uL (130-400); RED BLOOD COUNT 5.09 M/uL (4.2-5.4); WHITE BLOOD COUNT 6.47 K/uL (4.8-10.8)
[2016-09-26 14:06] LABS: BUN/CREATININE RATIO 18.4 (10-20); CALCIUM 10.3 mg/dl (8.5-10.1); CREATININE 0.85 mg/dl (0.60-1.20); POTASSIUM 3.9 mmol/L (3.5-5.1)
[2016-09-26 14:16] LABS: BETA-HYDROXYBUTYRATE 9.23 mg/dL (0.2-2.81)
[2016-09-26] MEDS ORDERED: SACCHAROMYCES BOUL (FLORASTOR) 250 MG CAP PO SCH (16:45)
[2016-09-26] MEDS: CEFTRIAXONE SOD INJ 1 GM in DEXTROSE 5% ADD-VANTAGE 50ML 50 ML IV SCH (17:00)
[2016-09-26] MEDS: LACTOBACILLUS ACIDOPHILUS (FLORANEX) TAB PO SCH (17:00)
[2016-09-26] MEDS: CARVEDILOL 12.5 MG TAB PO SCH (20:45)
[2016-09-26] MEDS ORDERED: INSULIN GLARGINE SOLOSTAR 100 UNITS/ML 3 ML PEN SC SCH (21:00)
[2016-09-27] VITALS (10 sets, daily range): BP systolic 127–165; BP diastolic 75–96; PULSE 68–83; TEMP 36.4–37; O2SAT 91–97
[2016-09-27] MEDS: NSS + 20MEQ KCL 1000ML 1,000 ML IV SCH (00:29)
[2016-09-27] MEDS: INSULIN ASPART 100 UNITS/ML 3 ML PEN SC SCH ×6 (00:29→20:58)
[2016-09-27] MEDS: NITROGLYCERIN OINT 2% 1GM PACKET EXT SCH ×2 (00:30→05:29)
[2016-09-27] MEDS: ACETAMINOPHEN 325 MG TAB PO PRN (00:32)
[2016-09-27] MEDS: HEPARIN SOD 5000 UNIT/0.5 ML CARP SQ SCH ×3 (04:27→21:05)
[2016-09-27 05:56] LABS: HEMATOCRIT 36.3 % (37-47); MEAN CELL VOLUME 85.8 fL (80-100); MEAN CORPUSCULAR HEMOGLOBIN 28.6 pg (25-34); MEAN CORPUSCULAR HGB CONC 33.3 g/dl (32-36); MEAN PLATELET VOLUME 10.5 fL (7.4-10.4); PLATELET COUNT 174 K/uL (130-400); RED BLOOD COUNT 4.23 M/uL (4.2-5.4); WHITE BLOOD COUNT 5.88 K/uL (4.8-10.8)
[2016-09-27 06:22] LABS: BUN/CREATININE RATIO 26.6 (10-20); CREATININE 0.57 mg/dl (0.60-1.20); MAGNESIUM 1.8 mg/dl (1.8-2.4); PHOSPHORUS 2.8 mg/dl (2.5-4.9); POTASSIUM 3.7 mmol/L (3.5-5.1)
[2016-09-27 07:15] LABS: CALCIUM 9.9 mg/dl (8.5-10.1)
[2016-09-27] MEDS: SPIRONOLACTONE 25 MG TAB PO SCH (07:48)
[2016-09-27] MEDS: CARVEDILOL 12.5 MG TAB PO SCH ×2 (07:48→21:04)
[2016-09-27] MEDS: POLYETHYLENE (MIRALAX) 17 GM PACK PO SCH (07:49)
[2016-09-27] MEDS: CLOPIDOGREL BISULFATE 75 MG TAB PO SCH (07:49)
[2016-09-27] MEDS: LISINOPRIL/HCTZ 20/25MG TAB PO SCH (07:49)
[2016-09-27] MEDS: LACTOBACILLUS ACIDOPHILUS (FLORANEX) TAB PO SCH ×3 (07:49→16:45)
[2016-09-27] MEDS: ATORVASTATIN 40 MG TAB PO SCH (07:49)
[2016-09-27] MEDS: INSULIN GLARGINE SOLOSTAR 100 UNITS/ML 3 ML PEN SC SCH (07:54)
--- NOTE | 2016-09-27 07:56 | Family Medicine Progress Note ---
Progress Note Date of Service Sep 27, 2016. Subjective Pt evaluation today including: conversation w/ patient The patient was seen and examined at bedside. No acute overnight events. Tele monitoring showed sinus rhythm in the 60s and 70s. Pt declines OT therapy today, states that she wants to save her costs. Patient is resting comfortably in bed. States that her dizziness has resolved but has a headache. She believes the headache is from her nitro patch and has subsequently declined her nitro patch and says her headache has started to improve. Eating and urinating well. Plan of care was described to the patient and all questions were answered. Constitutional: No fever, No chills Respiratory: No cough, No sputum, No wheezing, No shortness of breath Cardiovascular: No chest pain Abdomen: No pain, No nausea, No vomiting, No diarrhea Female : No dysuria Objective Physical Exam General Appearance: WD/WN, + obese Respiratory/Chest: chest non-tender, lungs clear, normal breath sounds, no respiratory distress, no accessory muscle use Cardiovascular: regular rate, rhythm, no edema, no gallop, no JVD, no murmur Abdomen: normal bowel sounds, non tender, soft, no organomegaly, no pulsatile mass Extremities: non-tender, no pedal edema, no calf tenderness Neurologic/Psychiatric: alert, normal mood/affect, oriented x 3 Assessment and Plan 61F with PMHx of DM2 (on insulin) and HTN was sent over from PCPs office for further workup for dizziness. Pt reports dizziness of approximately one year. CT of the head showed "chronic lacunar infarct is noted in the left basal ganglia.". Labs showed IGG +'ve for lyme disease and negative IGM. Pt has a history of CHF approx 7 years ago of unknown etiology, possibly 2/2 to Avenda ( Pioglitazone) use. Cardiology and Neurology were consulted. Echo results as below. MRI brain confirmed CT findings, echo of the US showed bilateral plaques and echocardiogram results as below. HBA1C was 16.3. Active management of multiple medical problems. Pt is doing well clinically. Dizziness x 1 year possibly 2/2 Left basal ganglia stroke - Improved clinically. On admission pt failed Romberg test. - CT showed left basal ganglia stroke, MRI confirms lesion in that area. - Echo carotids shows plaque formation bilaterally - Fall precautions. - c/w Atorvastatin to 80mg daily - hold ASA, c/w 75mg PO Plavix. - c/w HCTZ/Lisinopril combo 20mg/25mg daily. - c/w coreg to 12.5mg BID Diabetic Ketoacidosis (Resolved) - Anion gap of 13, likely chronic hyperglycemia. May also be contributing to her dizziness. - Transitioning to SQ insulin. Glycemic control consult in place. - Heart healthy diet. H/o CHF 2/2 to unknown cause - Followed up with [facility] and recently changed insurance so can no longer see [facility] cardiology. Needs a intervention manager. - Last echo was two years ago w Wilma, doesn't remember the results. - Echo today was grossly normal, EF of 50-55%. - Per Cards - will schedule pharmacologic stress test. Abnormal UA - Urine culture showed Acosta Sensitive E. Coli. - c/w Ceftriaxone 1gm daily. Day #3 Positive IgG, Negative IgM for Lyme - Pt cannot remember any tick bite from prior to 3 weeks ago. Pt has never been treated for Lyme. - Wait for western blot results to reflex. Constipation - Last BM was last week. Still has not pooped in hospital. Will add Psyllium ( Metamucil) to regimen. - c/w Miralax 17g daily. HTN (cont home meds) - unknown home doses, pt sees Dr. Bhargavi Black, unable to login to [facility] records from the ER to confirm doses. - Coreg as above. - HCTZ / Lisinopril as above. - c/w 25mg Spironolactone QAM. - Hydralazine 25mg PO PRN For SBP>200 or DBP >100. Dispo:Tele, admit, DM2 diet, PT & OT, Speech Swallow Test (passed). Pt refusing OT to keep hospital stay costs down. Consider moving pt from tele to Med Surg. DVT Proph: HepSQ TID Code: Full Resident Physician Supervision Note: I was present with the resident physician during the history and exam. I discussed the case with the resident and agree with the findings and plan as documented in the note. Any exceptions or clarifications are listed here: The patient's blood pressure has improved over the last 48 hours; her blood sugars are also markedly improved compared to her baseline considering her A1c. Cardiology has suggested a stress test tomorrow - the patient was initially resistant to having this done, but after some discussion with her she will go ahead with the stress test tomorrow. We had a discussion again regarding compliance with her antihypertensive and insulin regimen. Upon discharge, I encouraged her to follow-up with her primary care physician every 3 months until that her control of her blood sugars and blood pressure were obtained. With regards to the Lyme disease - it very well could be a false positive. This was explained to the patient. Will await Western blot confirmation. It is noted the patient is currently on Rocephin for a Escherichia coli UTI - which would cover Lyme should be western blot the positive. Documented By: Travon Cagle Resident Involvement: Resident Care Provided Care Provided: Adult [facility] Medicine
[2016-09-27] MEDS: ONDANSETRON INJ 2 MG/ML 2 ML VIAL IV PRN (07:57)
[2016-09-27 08:19] LABS: BASO % 0.7 %; BASO ABS # 0.04 K/uL (0-0.2); COMPLETE YES; EOS % 4.8 %; IG% 0.3 %; LYMPH % 53.4 %; LYMPH ABS # 3.14 K/uL (1.2-3.4); MONO % 10.2 %; NEUT % 30.6 %
--- NOTE | 2016-09-27 08:29 | Neurology Progress Notes ---
Neurology Progress Note Date of Service Sep 27, 2016. Subjective The patient feels fairly well currently with no new events overnight. Nursing reports no seizures or new issues. The patient has a mild to at best moderate headache which waxes and wanes/comes and goes throughout the day since her hospitalization. This has been linked to the use of the Nitro paste. The headache is on the left side or bifrontal. It is usually steady and when intense can be associated with nausea. Earlier this morning, she had an episode of diaphoresis. Her blood pressure at 0422 hours was 128/75. She denies dizziness/lightheadedness with standing, vision issues, or new weakness or numbness. Echocardiogram was largely unremarkable with an ejection fraction of 50-55%. CBC this morning was unremarkable. Chem profile was unremarkable and a glucose was 195. Objective Date Time Temp Pulse Resp B/P (MAP) Pulse Ox O2 Delivery O2 Flow Rate FiO2 09/27/16 04:22 36.6 68 18 128/75 (92) 91 Room Air 09/27/16 04:00 Room Air 09/26/16 23:59 Room Air 09/26/16 23:41 36.9 76 18 150/78 (102) 95 Room Air 09/26/16 20:00 Room Air 09/26/16 19:11 36.7 83 18 155/79 (104) 91 Room Air 09/26/16 17:22 79 09/26/16 16:00 94 Room Air 09/26/16 15:35 36.7 84 18 155/73 (100) 97 Room Air 09/26/16 15:17 88 98 09/26/16 12:30 36.6 81 16 173/77 (109) 93 09/26/16 12:00 94 Room Air 09/26/16 10:26 176/90 (118) 09/26/16 08:20 36.8 73 16 197/100 (132) 93 Room Air 73 192/126 (148) Last 24 Hours Test 09/26/16 11:36 09/26/16 13:19 09/26/16 14:30 09/26/16 16:22 Bedside Glucose 291 mg/dl 260 mg/dl White Blood Count 6.47 K/uL Red Blood Count 5.09 M/uL Hemoglobin 14.9 g/dL Hematocrit 43.2 % Mean Corpuscular Volume 84.9 fL Mean Corpuscular Hemoglobin 29.3 pg Mean Corpuscular Hemoglobin Concent 34.5 g/dl RDW Standard Deviation 42.2 fL RDW Coefficient of Variation 13.7 % Platelet Count 208 K/uL Mean Platelet Volume 10.6 fL Sodium Level 136 mmol/L Potassium Level 3.9 mmol/L Chloride Level 99 mmol/L Carbon Dioxide Level 29 mmol/L Anion Gap 8.0 mmol/L Blood Urea Nitrogen 16 mg/dl Creatinine 0.85 mg/dl Est Creatinine Clear Calc Drug Dose 78.6 ml/min Estimated GFR () 85.7 Estimated GFR (Non- 74.0 BUN/Creatinine Ratio 18.4 Random Glucose 330 mg/dl Calcium Level 10.3 mg/dl Magnesium Level 2.0 mg/dl Beta-Hydroxybutyric Acid 9.23 mg/dL Venous Blood pH 7.37 Test 09/26/16 20:17 09/27/16 00:00 09/27/16 03:48 09/27/16 05:28 Bedside Glucose 216 mg/dl 184 mg/dl 184 mg/dl White Blood Count 5.88 K/uL Red Blood Count 4.23 M/uL Hemoglobin 12.1 g/dL Hematocrit 36.3 % Mean Corpuscular Volume 85.8 fL Mean Corpuscular Hemoglobin 28.6 pg Mean Corpuscular Hemoglobin Concent 33.3 g/dl Platelet Count 174 K/uL Mean Platelet Volume 10.5 fL RDW Standard Deviation 42.9 fL RDW Coefficient of Variation 13.7 % Sodium Level 142 mmol/L Potassium Level 3.7 mmol/L Chloride Level 107 mmol/L Carbon Dioxide Level 30 mmol/L Anion Gap 5.0 mmol/L Blood Urea Nitrogen 15 mg/dl Creatinine 0.57 mg/dl Est Creatinine Clear Calc Drug Dose 117.3 ml/min Estimated GFR () 116.0 Estimated GFR (Non- 100.1 BUN/Creatinine Ratio 26.6 Random Glucose 195 mg/dl Calcium Level 9.9 mg/dl Phosphorus Level 2.8 mg/dl Magnesium Level 1.8 mg/dl Test 09/27/16 06:51 Bedside Glucose 218 mg/dl Exam: The patient is awake and alert. Speech is unremarkable with no aphasia or dysarthria. Extraocular muscles are intact without nystagmus. There is no facial droop. She is sitting up eating well with good stance. Coordination is normal in the arms. Strength is symmetrical in the limbs. Current Inpatient Medications Medications (Trade) Dose Ordered Sig/Maria Isabel Route Start Time Stop Time Status Last Admin Dose Admin Heparin Sodium (Porcine) (Heparin Sq 5000 Unit/0.5ml) 5,000 unit Q8 SQ 09/25/16 22:00 10/25/16 21:59 09/27/16 04:27 5,000 UNIT Acetaminophen (Tylenol Tab) 650 mg Q4H PRN PO 09/25/16 17:15 10/25/16 17:14 09/27/16 00:32 650 MG Al Hydrox/Mg Hydrox/Simethicone (Maalox Max Susp) 15 ml Q4H PRN PO 09/25/16 17:15 10/25/16 17:14 Magnesium Hydroxide (Milk Of Magnesia Susp) 30 ml Q12H PRN PO 09/25/16 17:15 10/25/16 17:14 Ondansetron HCl (Zofran Inj) 4 mg Q6H PRN IV 09/25/16 17:15 10/25/16 17:14 09/27/16 07:57 4 MG Nitroglycerin (Nitrostat Tab) 0.4 mg UD PRN SL 09/25/16 17:15 10/25/16 17:14 Nitroglycerin (Nitroglycerin 2% Oint) 1 inch Q6H EXT 09/26/16 00:00 10/26/16 00:00 09/27/16 05:29 1 INCH Morphine Sulfate (MoRPHine SULFATE INJ) 2 mg Q30M PRN IV 09/25/16 17:15 10/09/16 17:14 09/25/16 23:00 2 MG Polyethylene (Miralax Powder Packet) 17 gm DAILY PRN PO 09/25/16 17:15 10/25/16 17:14 Miscellaneous Information (Consult Glycemic Management Pharmacy) 1 ea UD PRN N/A 09/25/16 17:15 10/25/16 17:14 Miscellaneous Information (Pharmacist Discharge Med Rec Consult) 1 ea UD PRN N/A 09/25/16 17:15 10/25/16 17:14 Spironolactone (Aldactone Tab) 25 mg QAM PO 09/26/16 09:00 10/26/16 08:59 09/27/16 07:48 25 MG Polyethylene (Miralax Powder Packet) 17 gm DAILY PO 09/26/16 09:00 10/26/16 08:59 09/27/16 07:49 17 GM Ceftriaxone Sodium 1 gm/ Dextrose 50 ml @ 100 mls/hr DAILY@1600 IV 09/26/16 16:00 09/30/16 15:59 09/26/16 17:00 100 MLS/HR Insulin Aspart (novoLOG ASPART) SLIDING SCALE ACHS SC 09/26/16 08:45 10/26/16 08:44 09/27/16 07:53 13 UNITS Glucose (Glucose 40% Gel) 15-30 GRAMS 15 GRAMS... UD PRN PO 09/26/16 09:00 10/26/16 08:59 Glucose (Glucose Chew Tab) 4-8 Tablets 4 Tabl... UD PRN PO 09/26/16 09:00 10/26/16 08:59 Dextrose (Dextrose 50% 50ML Syringe) 25-50ML OF 50% DW IV FOR... UD PRN IV 09/26/16 09:00 10/26/16 08:59 Glucagon (Glucagon Inj) 1 mg UD PRN SQ 09/26/16 09:00 10/26/16 08:59 Clopidogrel Bisulfate (plAVix TAB) 75 mg QAM PO 09/27/16 09:00 10/27/16 08:59 09/27/16 07:49 75 MG Atorvastatin Calcium (Lipitor Tab) 80 mg QAM PO 09/27/16 09:00 10/26/16 08:59 09/27/16 07:49 80 MG Carvedilol (Coreg Tab) 12.5 mg BID PO 09/26/16 21:00 10/25/16 20:59 09/27/16 07:48 12.5 MG HCTZ/Lisinopril (Prinzide 20-25MG Tab) 1 tab QAM PO 09/27/16 09:00 10/27/16 08:59 09/27/16 07:49 1 TAB Lactobacillus Acidophilus (Floranex Tab) 1 tab TIDM PO 09/26/16 16:45 10/26/16 16:44 09/27/16 07:49 1 TAB Hydralazine HCl (Apresoline Tab) 25 mg TID PRN PO 09/26/16 17:15 10/26/16 17:14 Insulin Glargine (Lantus Solostar Pen) 45 unit DAILY SC 09/27/16 09:00 10/27/16 08:59 09/27/16 07:54 45 UNIT Impression 1. Subacute left basal ganglia stroke. This is not necessarily within the week but has to be less than 3 months or would not have shown up on diffusion imaging. The etiology of the stroke is likely small vessel ischemic disease and risk factors include hypertension, diabetes, dyslipidemia. NIH stroke scale has been 0, today and yesterday Currently, she has no focal neurologic deficits, encephalopathy, or meningeal signs. She has been stable since admission. Her event occurred while she was on 81 mg aspirin (for multiple years) 2. Chronic cerebral ischemia [id number], seen on MRI. 3. Gait disturbance. 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 She has absent reflexes and diminished vibratory sense. This would give her a sensory ataxia. Chronic cerebral ischemia and the new lacunar infarct could affect her balance as well. 4. Hypertension, Better controlled over the last 24 hours. 5. Diabetes Better control over the last 24 hours 6. Dyslipidemia Initiated on high-dose statin 7. Equivocal Lyme antibody test Still awaiting Western blot. 8. Headache This is likely secondary to the nitro paste Plan 1. Continue control of blood pressure, striving for a mean arterial pressure of approximately 100 2. Continue glucose control/treatment 3. Continue atorvastatin 80 mg daily. 4. Continue clopidogrel 75 mg daily and remain off aspirin 5. PT, OT, and speech therapy consults. She needs gait strengthening and training and may benefit from a rehabilitation hospital stay after hospitalization here. 6. Awaiting Lyme Western blot. I have no further neurologic testing or treatment recommendations to make for this patient at this time. Please contact me if I can be of further assistance. I would like to follow up this patient as an outpatient about 2 weeks after discharge.
[2016-09-27] MEDS ORDERED: LISINOPRIL 10 MG TAB PO SCH (09:00)
--- NOTE | 2016-09-27 09:23 | Cardiology Follow-Up ---
Subjective Date of Service: Sep 27, 2016. Pt evaluation today including: conversation w/ patient, physical exam, lab review, review of studies, review of inpatient medication list History of Present Illness This is a very pleasant 61-year-old woman who has previously received care at various different places including the [facility], then with [facility] , last seen there about one year ago. Evidently her insurance changed and she can no longer see them, she is therefore not made arrangements to be seen as yet but is planning to see our cardiologists. Her history is notable for diabetes and hypertension as well as a cardiomyopathy. She presented with congestive heart failure in July 2009 and echocardiography showed an ejection fraction in the 15% range. Cardiac catheterization was done on 08/05/2009, this showed mild diffuse coronary disease and a left ventriculogram described as severe diffuse hypokinesis and the summary of findings list ejection fraction is 50%, this appears to be contradictory. She was treated for her cardiomyopathy and coronary artery disease, and evidently has been doing well in terms of her symptomatology. She has not had further studies to the [facility] were don't know what her ejection fraction is currently. She presented to the emergency room on 09/25/2016 being referred from her physician's office for what I believe was an evaluation for dizziness and possible electrocardiographic changes. She denies exertional chest discomfort, she has been having dizziness and falls (which may be due to a CVA in the past) , she describes falling down and being unable to get up but it sounds like the inability to get up his mechanical. It does not sound like she is presyncope or syncope leading to the falls. She does not have palpitations. She does not have heart failure symptoms. Today she feels well, she is complaining of a headache from nitroglycerin and continued dizziness but no cardiovascular complaints. Social History Smoking Status: Never Smoker History of Alcohol Use: No Review of Systems Respiratory: No cough, No wheezing, No shortness of breath, No dyspnea on exertion Cardiac: No chest pain, No orthopnea, No PND, No edema, No palpitations Medications Cardiovascular: Item Value Date Time Clopidogrel 75 mg 09/27/16 0900 Bisulfate QAM/PO 09/27/16 0749 (plAVix TAB) Atorvastatin 80 mg 09/27/16 0900 Calcium QAM/PO 09/27/16 0749 (Lipitor Tab) HCTZ/Lisinopril 1 tab 09/27/16 0900 (Prinzide QAM/PO 09/27/16 0749 20-25MG Tab) Carvedilol 12.5 mg 09/26/16 2100 (Coreg Tab) BID/PO 09/27/16 0748 Spironolactone 25 mg 09/26/16 0900 (Aldactone Tab) QAM/PO 09/27/16 0748 Objective Vital Signs Past 12 Hours Date Time Temp Pulse Resp B/P (MAP) Pulse Ox O2 Delivery O2 Flow Rate FiO2 09/27/16 08:39 36.7 78 16 133/96 (108) 95 Room Air 09/27/16 08:00 94 Room Air 09/27/16 04:22 36.6 68 18 128/75 (92) 91 Room Air 09/27/16 04:00 Room Air 09/26/16 23:59 Room Air 09/26/16 23:41 36.9 76 18 150/78 (102) 95 Room Air Last Recorded Weight-Kilograms: 90.300 Physical Exam Constitutional: General Apperance: heathly-appearing Level of Distress: NAD Lungs: Respiratory effort: no dyspnea, good air movement Auscultation: breath sounds normal, no wheezing Cardiovascular: Heart Auscultation: RRR, no murmurs, no rubs, no gallops Peripheral Pulses: Bruits: none appreciated Extremities: no edema Data Laboratory Results: Last 24 Hours Test 09/26/16 11:36 09/26/16 13:19 09/26/16 14:30 09/26/16 16:22 Bedside Glucose 291 mg/dl 260 mg/dl White Blood Count 6.47 K/uL Red Blood Count 5.09 M/uL Hemoglobin 14.9 g/dL Hematocrit 43.2 % Mean Corpuscular Volume 84.9 fL Mean Corpuscular Hemoglobin 29.3 pg Mean Corpuscular Hemoglobin Concent 34.5 g/dl RDW Standard Deviation 42.2 fL RDW Coefficient of Variation 13.7 % Platelet Count 208 K/uL Mean Platelet Volume 10.6 fL Sodium Level 136 mmol/L Potassium Level 3.9 mmol/L Chloride Level 99 mmol/L Carbon Dioxide Level 29 mmol/L Anion Gap 8.0 mmol/L Blood Urea Nitrogen 16 mg/dl Creatinine 0.85 mg/dl Est Creatinine Clear Calc Drug Dose 78.6 ml/min Estimated GFR () 85.7 Estimated GFR (Non- 74.0 BUN/Creatinine Ratio 18.4 Random Glucose 330 mg/dl Calcium Level 10.3 mg/dl Magnesium Level 2.0 mg/dl Beta-Hydroxybutyric Acid 9.23 mg/dL Venous Blood pH 7.37 Test 09/26/16 20:17 09/27/16 00:00 09/27/16 03:48 09/27/16 05:28 Bedside Glucose 216 mg/dl 184 mg/dl 184 mg/dl White Blood Count 5.88 K/uL Red Blood Count 4.23 M/uL Hemoglobin 12.1 g/dL Hematocrit 36.3 % Mean Corpuscular Volume 85.8 fL Mean Corpuscular Hemoglobin 28.6 pg Mean Corpuscular Hemoglobin Concent 33.3 g/dl Platelet Count 174 K/uL Mean Platelet Volume 10.5 fL Neutrophils (%) (Auto) 30.6 % Lymphocytes (%) (Auto) 53.4 % Monocytes (%) (Auto) 10.2 % Eosinophils (%) (Auto) 4.8 % Basophils (%) (Auto) 0.7 % Neutrophils # (Auto) 1.80 K/uL Lymphocytes # (Auto) 3.14 K/uL Monocytes # (Auto) 0.60 K/uL Eosinophils # (Auto) 0.28 K/uL Basophils # (Auto) 0.04 K/uL RDW Standard Deviation 42.9 fL RDW Coefficient of Variation 13.7 % Immature Granulocyte % (Auto) 0.3 % Immature Granulocyte # (Auto) 0.02 K/uL Sodium Level 142 mmol/L Potassium Level 3.7 mmol/L Chloride Level 107 mmol/L Carbon Dioxide Level 30 mmol/L Anion Gap 5.0 mmol/L Blood Urea Nitrogen 15 mg/dl Creatinine 0.57 mg/dl Est Creatinine Clear Calc Drug Dose 117.3 ml/min Estimated GFR () 116.0 Estimated GFR (Non- 100.1 BUN/Creatinine Ratio 26.6 Random Glucose 195 mg/dl Calcium Level 9.9 mg/dl Phosphorus Level 2.8 mg/dl Magnesium Level 1.8 mg/dl Test 09/27/16 06:51 Bedside Glucose 218 mg/dl Telemetry reviewed: Sinus rhythm, no significant arrhythmia Assessment and Plan #1. Dizziness and falling: This does not sound cardiac, it is conceivable that this is due to an arrhythmia as she has not had these symptoms in the hospital but it doesn't sound like it. I would keep her in the monitor while she is here to make certain that she does not have a significant arrhythmia. #2. Electrocardiographic abnormalities: She does have inferolateral ST-T abnormalities which are a little different than they were in 2010. She has known coronary artery disease which was nonobstructive in 2010. Although this is probably not related to her presentation we probably should evaluate her for ischemia. I will schedule a pharmacologic stress test. #3. Cardiomyopathy: She had a cardiomyopathy identified in 2010, based on her history that quickly resolved. Her ejection fraction is now low normal, I don't know if this is a change. I would continue carvedilol and lisinopril. #4. Coronary disease: At catheterization she had diffuse coronary disease but it was nonobstructive at the time, but that was 7 years ago. It certainly could have progressed. Her cholesterol is markedly elevated as are her triglycerides. I would certainly increase her atorvastatin if possible, we can do that over the long run. He may want to specifically treat her hypertriglyceridemia as well. Thank you for allowing me to participate in her care.
--- NOTE | 2016-09-27 10:30 | Pharmacy Progress Note ---
Glycemic Control Progress Note Date of Service Sep 27, 2016. Scope Glycemic Pharmacist consulted for glycemic control to write orders per [facility] inpatient glycemic control protocol. Objective Accuchecks BSG (last 24hrs): Test 09/26/16 11:36 09/26/16 13:19 09/26/16 16:22 09/26/16 20:17 Bedside Glucose 291 mg/dl (70-90) 260 mg/dl (70-90) 216 mg/dl (70-90) Random Glucose 330 mg/dl (70-99) Test 09/27/16 00:00 09/27/16 03:48 09/27/16 05:28 09/27/16 06:51 Bedside Glucose 184 mg/dl (70-90) 184 mg/dl (70-90) 218 mg/dl (70-90) Random Glucose 195 mg/dl (70-99) HbA1c: Test 09/25/16 12:30 Hemoglobin A1c 16.3 % (4.5-5.6) H Recent Pertinent Medications The patient is currently receiving: * Basal insulin: Lantus 30 units every in the morning and 15 units at bedtime * Correctional Insulin: Novolog Correction per scale ACHS Goal Range: Low 120 mg/dL - High 160 mg/dL Correction Factor: 20 mg/dL/unit * Prandial insulin: Per carb ratio of 1 unit per 6 grams CHO consumed Outpatient Anti-Diabetic Meds N/A --> no previous outpatient regimen Assessment & Plan ASSESSMENT: * See progress note from 09/26 for more background info, in short: * Pt receiving SQ basal bolus insulin regimen for hyperglycemia secondary to newly diagnosed diabetes, stress/infection, * Patient is currently receiving ~86 units of insulin per day * 45 units of basal insulin * 41 units of prandial/correctional insulin * BSGs 291, 260, 216, 184, 184, 218 since transitioning off of IV insulin infusion * Changes needed to insulin regimen: * AM Fasting BSG = 218 mg/dl. This is above goal range for patient based on inpatient targets and co-morbidities. Therefore Basal insulin needs increased. * Post-prandial BSGs are elevated. Will continue current parameters and tighten if BSG consistently above 200mg/dl. * Total daily dose = 86 units. Regimen is distributed 50%:50% basal:prandial to prevent hypo/hyperglycemia when PO intake changes and This dosing is yielding adequate glycemic control. Per provider, goal is to keep BSG ~ 200mg/ dl secondary to significantly elevated A1c. Pt may feel symptoms of hypo at otherwise normal BSGs. PLAN FOR INPATIENT GLYCEMIC CONTROL: * Basal insulin: change to once daily dosing to start transition to outpatient. * Lantus 45 units SQ daily in AM * Will only give PM dose of Lantus x 1 tonight based on degree of hyperglycemia * If BSG < 200 --> No Lantus this evening * If BSG 200+ --> Give Lantus 10 units * Bolus insulin: tighten slightly * NovoLog per scale ACHS or Q6hrs while NPO. * Goal Range: Low 120 mg/dL - High 160 mg/dL (slightly higher goal range secondary to elevated A1c) * Correction Factor: 15 mg/dL/unit * Nutritional / Prandial insulin per carb ratio of 1 unit per 5 grams CHO consumed * Please note that the plan above was derived based on current level of insulin resistance and hospital stress. These recommendations are appropriate for inpatient admission only. Plan of care upon discharge will need to be reassessed to avoid potential outpatient hypo/hyperglycemia. Thank you. Looking ahead to discharge: 61yo female with poorly controlled diabetes - A1c is significantly elevated at 16.3%. * A1c is greater than or equal to 10% per ADA, consider metformin + combination injectable therapy (basal insulin + rapid acting insulin OR GLP1-RA) * Goal A1c for patient based on age and co-morbidities is ~7% Recommend: * Metformin XR 500mg PO daily with dinner. * Continue to titrate metformin dosing upwards as recommended. Dosage increases should be made in increments of 500 mg weekly, up to 2,000 mg/day PO, given in divided doses. Doses above 2000 mg/day may be better tolerated if divided and given 3 times per day with meals. Max: 2,550 mg/day PO, in divided doses * B12 supplementation may be necessary with fpc metformin use * Lantus SQ daily {# units TBD} * NovoLog fixed dose {# units TBD} once daily with the largest meal of the day. * Ideally, bolus insulin with each meal should be given based on significantly elevated A1c but 5 injections will be difficult for this new diabetic to comply with. * Support Patient Self-Management * Healthy Lifestyle (diet, exercise, and smoking cessation) * Disease self-management (SMBG) * Prevention of complications (BP, Lipid goals, Immunizations) * Consider outpatient Diabetes Self-Management Education & Support
[2016-09-27] MEDS ORDERED: PSYLLIUM 58.6% PWD PACK S\\F PO ONE (15:17)
[2016-09-27] MEDS ORDERED: INSULIN GLARGINE SOLOSTAR 100 UNITS/ML 3 ML PEN SC SCH ×2 (16:15→21:00)
[2016-09-27] MEDS: CEFTRIAXONE SOD INJ 1 GM in DEXTROSE 5% ADD-VANTAGE 50ML 50 ML IV SCH (16:44)
[2016-09-28] VITALS (9 sets, daily range): BP systolic 121–164; BP diastolic 76–90; PULSE 68–90; TEMP 36.7–36.8; O2SAT 92–97; Ht 167.6 cm; Wt 89.7 kg
[2016-09-28] MEDS ORDERED: INSULIN ASPART 100 UNITS/ML 3 ML PEN SC SCH (02:00)
[2016-09-28] MEDS: HEPARIN SOD 5000 UNIT/0.5 ML CARP SQ SCH ×2 (06:27→13:07)
[2016-09-28 06:57] LABS: BASO % 0.5 %; BASO ABS # 0.03 K/uL (0-0.2); COMPLETE YES; EOS % 4.3 %; HEMATOCRIT 39.5 % (37-47); IG% 0.3 %; LYMPH % 48.4 %; MEAN CELL VOLUME 86.4 fL (80-100); MEAN CORPUSCULAR HGB CONC 32.4 g/dl (32-36); MEAN PLATELET VOLUME 10.2 fL (7.4-10.4); MONO % 11.2 %; NEUT % 35.3 %; PLATELET COUNT 188 K/uL (130-400); RED BLOOD COUNT 4.57 M/uL (4.2-5.4); WHITE BLOOD COUNT 5.78 K/uL (4.8-10.8)
[2016-09-28 07:27] LABS: BUN/CREATININE RATIO 23.1 (10-20); CALCIUM 10.3 mg/dl (8.5-10.1); CREATININE 0.58 mg/dl (0.60-1.20); MAGNESIUM 1.9 mg/dl (1.8-2.4); POTASSIUM 3.6 mmol/L (3.5-5.1)
[2016-09-28 07:30] LABS: PHOSPHORUS 3.1 mg/dl (2.5-4.9)
[2016-09-28] MEDS: LACTOBACILLUS ACIDOPHILUS (FLORANEX) TAB PO SCH ×3 (07:36→16:29)
[2016-09-28] MEDS: SPIRONOLACTONE 25 MG TAB PO SCH (07:37)
[2016-09-28] MEDS: ATORVASTATIN 40 MG TAB PO SCH (07:37)
[2016-09-28] MEDS: CARVEDILOL 12.5 MG TAB PO SCH (07:37)
[2016-09-28] MEDS: CLOPIDOGREL BISULFATE 75 MG TAB PO SCH (07:38)
[2016-09-28] MEDS: POLYETHYLENE (MIRALAX) 17 GM PACK PO SCH (07:38)
[2016-09-28] MEDS: LISINOPRIL/HCTZ 20/25MG TAB PO SCH (07:38)
[2016-09-28] MEDS: INSULIN ASPART 100 UNITS/ML 3 ML PEN SC SCH ×3 (07:41→17:22)
[2016-09-28] MEDS: INSULIN GLARGINE SOLOSTAR 100 UNITS/ML 3 ML PEN SC SCH (07:42)
--- NOTE | 2016-09-28 08:33 | Cardiology Follow-Up ---
Subjective Date of Service: Sep 28, 2016. Pt evaluation today including: conversation w/ patient, physical exam, lab review, review of studies, review of inpatient medication list History of Present Illness This is a very pleasant 61-year-old woman who has previously received care at various different places including the [facility], then with [facility] , last seen there about one year ago. Evidently her insurance changed and she can no longer see them, she is therefore not made arrangements to be seen as yet but is planning to see our cardiologists. Her history is notable for diabetes and hypertension as well as a cardiomyopathy. She presented with congestive heart failure in July 2009 and echocardiography showed an ejection fraction in the 15% range. Cardiac catheterization was done on 08/05/2009, this showed mild diffuse coronary disease and a left ventriculogram described as severe diffuse hypokinesis and the summary of findings list ejection fraction is 50%, this appears to be contradictory. She was treated for her cardiomyopathy and coronary artery disease, and evidently has been doing well in terms of her symptomatology. She has not had further studies to the [facility] were don't know what her ejection fraction is currently. She presented to the emergency room on 09/25/2016 being referred from her physician's office for what I believe was an evaluation for dizziness and possible electrocardiographic changes. She denies exertional chest discomfort, she has been having dizziness and falls (which may be due to a CVA in the past) , she describes falling down and being unable to get up but it sounds like the inability to get up his mechanical. It does not sound like she is presyncope or syncope leading to the falls. She does not have palpitations. She does not have heart failure symptoms. Today she feels fairly well, she is still complaining of a headache now off nitroglycerine but no cardiovascular complaints. Social History Smoking Status: Never Smoker History of Alcohol Use: No Review of Systems Respiratory: No cough, No sputum, No wheezing, No shortness of breath Cardiac: No chest pain Medications Cardiovascular: Item Value Date Time Clopidogrel 75 mg 09/27/16 0900 Bisulfate QAM/PO 09/28/16 0738 (plAVix TAB) Atorvastatin 80 mg 09/27/16 0900 Calcium QAM/PO 09/28/16 0737 (Lipitor Tab) HCTZ/Lisinopril 1 tab 09/27/16 0900 (Prinzide QAM/PO 09/28/16 0738 20-25MG Tab) Carvedilol 12.5 mg 09/26/16 2100 (Coreg Tab) BID/PO 09/28/16 0737 Hydralazine HCl 25 mg 09/26/16 1715 (Apresoline Tab) TID PRN/PO Spironolactone 25 mg 09/26/16 0900 (Aldactone Tab) QAM/PO 09/28/16 0737 Objective Vital Signs Past 12 Hours Date Time Temp Pulse Resp B/P (MAP) Pulse Ox O2 Delivery O2 Flow Rate FiO2 09/28/16 04:32 36.8 73 18 135/76 (95) 95 Room Air 09/28/16 04:00 Room Air 09/27/16 23:59 Room Air 09/27/16 23:46 36.4 79 20 146/78 (100) 93 Room Air Last Recorded Weight-Kilograms: 89.700 Physical Exam Constitutional: General Apperance: heathly-appearing Level of Distress: NAD Lungs: Respiratory effort: no dyspnea, good air movement Auscultation: breath sounds normal, no wheezing Cardiovascular: Heart Auscultation: RRR, no murmurs, no rubs, no gallops Peripheral Pulses: Bruits: none appreciated Extremities: no edema Data Laboratory Results: Last 24 Hours Test 09/27/16 11:41 09/27/16 16:17 09/27/16 20:15 09/28/16 02:01 Bedside Glucose 236 mg/dl 193 mg/dl 140 mg/dl 118 mg/dl Test 09/28/16 06:36 09/28/16 06:51 White Blood Count 5.78 K/uL Red Blood Count 4.57 M/uL Hemoglobin 12.8 g/dL Hematocrit 39.5 % Mean Corpuscular Volume 86.4 fL Mean Corpuscular Hemoglobin 28.0 pg Mean Corpuscular Hemoglobin Concent 32.4 g/dl Platelet Count 188 K/uL Mean Platelet Volume 10.2 fL Neutrophils (%) (Auto) 35.3 % Lymphocytes (%) (Auto) 48.4 % Monocytes (%) (Auto) 11.2 % Eosinophils (%) (Auto) 4.3 % Basophils (%) (Auto) 0.5 % Neutrophils # (Auto) 2.03 K/uL Lymphocytes # (Auto) 2.80 K/uL Monocytes # (Auto) 0.65 K/uL Eosinophils # (Auto) 0.25 K/uL Basophils # (Auto) 0.03 K/uL RDW Standard Deviation 43.5 fL RDW Coefficient of Variation 13.9 % Immature Granulocyte % (Auto) 0.3 % Immature Granulocyte # (Auto) 0.02 K/uL Venous Blood pH 7.43 Sodium Level 144 mmol/L Potassium Level 3.6 mmol/L Chloride Level 108 mmol/L Carbon Dioxide Level 30 mmol/L Anion Gap 6.0 mmol/L Blood Urea Nitrogen 13 mg/dl Creatinine 0.58 mg/dl Est Creatinine Clear Calc Drug Dose 114.9 ml/min Estimated GFR () 115.3 Estimated GFR (Non- 99.5 BUN/Creatinine Ratio 23.1 Random Glucose 105 mg/dl Calcium Level 10.3 mg/dl Phosphorus Level 3.1 mg/dl Magnesium Level 1.9 mg/dl Bedside Glucose 102 mg/dl Telemetry reviewed: SR, no significant ectopy Assessment and Plan #1. Dizziness and falling: This does not sound cardiac, it is conceivable that this is due to an arrhythmia as she has not had severe symptoms in the hospital but it doesn't sound like it. I would keep her in the monitor while she is here to make certain that she does not have a significant arrhythmia. I would not pursue outpatient monitoring unless symptoms recur. #2. Electrocardiographic abnormalities: She does have inferolateral ST-T abnormalities which are a little different than they were in 2010. She does not have positive cardiac enzymes. She has known coronary artery disease which was nonobstructive in 2010. Although this is probably not related to her presentation we probably should evaluate her for ischemia. She is scheduled for a pharmacologic stress test. #3. Troponin: Her troponin was not elevated on admission. She does not have symptoms to suggest active ischemia, her electrocardiogram is little bit different than before however. Depending on her hospital course we may want to evaluate for ischemia. #4. Cardiomyopathy: She had a cardiomyopathy identified in 2010, based on her history that quickly resolved. Her LVEF is low normal, I don't know if that is a change. #5. Coronary disease: At catheterization she had diffuse coronary disease but it was nonobstructive at the time, but that was 7 years ago. It certainly could have progressed. Her cholesterol is markedly elevated as are her triglycerides. I would certainly increase her atorvastatin if possible, we can do that over the long run. He may want to specifically treat her hypertriglyceridemia as well. Thank you for allowing me to participate in her care.
--- NOTE | 2016-09-28 08:35 | Pharmacy Progress Note ---
Glycemic Control Progress Note Date of Service Sep 28, 2016. Scope Glycemic Pharmacist consulted for glycemic control to write orders per [facility] inpatient glycemic control protocol. Objective Accuchecks BSG (last 24hrs): Test 09/27/16 11:41 09/27/16 16:17 09/27/16 20:15 09/28/16 02:01 Bedside Glucose 236 mg/dl (70-90) 193 mg/dl (70-90) 140 mg/dl (70-90) 118 mg/dl (70-90) Test 09/28/16 06:36 09/28/16 06:51 Random Glucose 105 mg/dl (70-99) Bedside Glucose 102 mg/dl (70-90) HbA1c: Test 09/25/16 12:30 Hemoglobin A1c 16.3 % (4.5-5.6) H Recent Pertinent Medications The patient is currently receiving: * Basal insulin: Lantus 45 units in the AM + 10 units in the PM * Correctional Insulin: Novolog Correction per scale ACHS Goal Range: Low 120 mg/dL - High 160 mg/dL Correction Factor: 15 mg/dL/unit * Prandial insulin: Per carb ratio of 1 unit per 5 grams CHO consumed Assessment & Plan ASSESSMENT: * See progress note from 09/26 for more background info, in short: * Pt receiving SQ basal bolus insulin regimen for hyperglycemia secondary to newly diagnosed diabetes, stress/infection * Patient is currently receiving ~94units of insulin per day * 55 units of basal insulin * 39 units of prandial/correctional insulin * BSGs trending down to goal over the past ~24 hours (218,236,193,140,102) * Changes needed to insulin regimen: * AM Fasting BSG = 102 mg/dl. Spoke with nurse to see if patient was symptomatic given A1c of ~16%. Per nurse, patient tolerating euglycemia with no issues. This fasting BSG, however, is below goal range for this patient. Reduce basal insulin by 20% and reassess in the AM. * Post-prandial BSGs have responded well to changes made yesterday; however, I do feel there is a bit too much basal on board so I will loosen current parameters to avoid hypoglycemia. PLAN FOR INPATIENT GLYCEMIC CONTROL: * Basal insulin * Lantus 45 units SQ daily ONLY- discontinue any additional Lantus in the evening * Bolus insulin: loosen slightly * NovoLog per scale ACHS or Q6hrs while NPO * Goal Range: Low 120 mg/dL - High 160 mg/dL (slightly higher goal range secondary to elevated A1c) * Correction Factor: 20 mg/dL/unit * Nutritional / Prandial insulin per carb ratio of 1 unit per 6 grams CHO consumed RECOMMENDATIONS FOR DISCHARGE: 61yo female with poorly controlled diabetes - A1c is significantly elevated at 16.3%. * A1c is greater than or equal to 10% per ADA, consider metformin + combination injectable therapy (basal insulin + rapid acting insulin OR GLP1-RA) * Goal A1c for patient based on age and co-morbidities is ~7% Recommend: * Metformin XR 500mg PO daily with dinner. * Continue to titrate metformin dosing upwards as recommended. Dosage increases should be made in increments of 500 mg weekly, up to 2,000 mg/day PO, given in divided doses. Doses above 2000 mg/day may be better tolerated if divided and given 3 times per day with meals. Max: 2,550 mg/day PO, in divided doses * B12 supplementation may be necessary with longterm metformin use * Lantus 36 units SQ daily * NovoLog fixed dose 10 units once daily with the largest meal of the day. * Ideally, bolus insulin with each meal should be given based on significantly elevated A1c but 5 injections will be difficult for this new diabetic to comply with. * Support Patient Self-Management * Healthy Lifestyle (diet, exercise, and smoking cessation) * Disease self-management (SMBG) * Prevention of complications (BP, Lipid goals, Immunizations) * Consider outpatient Diabetes Self-Management Education & Support * Please note that the plan above was derived based on current level of insulin resistance and hospital stress. These recommendations are appropriate for inpatient admission only. Plan of care upon discharge will need to be reassessed to avoid potential outpatient hypo/hyperglycemia. Thank you.
[2016-09-28] MEDS ORDERED: PSYLLIUM 58.6% PWD PACK S\\F PO SCH (09:00)
[2016-09-28] MEDS ORDERED: DOBUTamine HCL 12.5 MG/ML 20 ML VIAL ONE (10:21)
[2016-09-28] MEDS ORDERED: METOPROLOL TARTRATE 1 MG/ML VIAL ONE ×2 (10:21→10:58)
[2016-09-28] MEDS ORDERED: ATROPINE SULFATE 0.1 MG/ML 5ML SYR ONE (10:21)
[2016-09-28] MEDS ORDERED: PERFLUTREN LIPID MICROSPHERE (DEFINITY) IV ONE (11:10)
--- NOTE | 2016-09-28 14:15 | DOBUTAMINE ECHO ---
*NOTICE TO RECEIVING DEMOCRAT AGENCY This information is strictly Confidential and protected under [place] law. [place] law prohibits you from making any further disclosure of this information unless further disclosure is expressly permitted by the written consent of the person to whom it pertains or is authorized by law. A general authorization for the release of medical or other information is not sufficient for this purpose. Hospital accepts no responsibility if the information is made available to any other person, INCLUDING THE PATIENT. Interpretation Summary * Name: SHALOM KRAMER Study Date: 09/28/2016 09:57 AM BP: 155/77 mmHg * Patient Location: C.2T\S\S234\S\1 HR: 72 * : 1955 (M/d/yyyy) Gender: Female Height: 66 in * Age: 61 yrs Ethnicity: CA Weight: 198 lb * Ordering Physician: Ryan Lund * Referring Physician: Bhargavi Black D.O. * Performed By: Yasmeen Hanks RDCS * * Reason For Study: CHEST PAIN, CARDIOMYOPATHY * BSA: 2.0 m2 * -- Conclusions -- * Technically limited study. * No definite myocardial ishemia at 97% maximum predicted heart rate. * No dobutamine induced chest pain. * Baseline ECG notes ST and Twave changes making stress ECG interpretation unreliable. Procedure Details * A contrast injection of Definity was performed to improve assessment of LV function. * Contrast was injected into an intravenous site in the left arm. * One vial of Definity ultrasound contrast was diluted in normal saline to a total volume of 10 ml. A total of '6' ml of solution was administered during imaging. * Lot # [id number] of Definity utilized for procedure. * Expiration date OCT 20. * The attending nurse who injected the contrast agent was YARA ORTIZ RN. Stress Parameters * The stress portion of this study was personally supervised by the undersigned interpreting physician. * Rest heart rate was '72' BPM. * Rest blood pressure was '155/77' * Maximum heart rate achieved was 155 bpm. * Maximum heart rate was 97 % of maximum age-predicted heart rate. * Maximum blood pressure was '188/105' * Maximum Dobutamine infusion rate was '50' mcg/kg/min. * A total of .75 mg of intravenous Atropine was used to supplement Dobutamine for heart rate response. * Dobutamine infusion was terminated due to achieving target heart rate * A total of 15 mg of IV Metoprolol was administered to reverse Dobutamine-induced tachycardia.
[2016-09-28] MEDS: CEFTRIAXONE SOD INJ 1 GM in DEXTROSE 5% ADD-VANTAGE 50ML 50 ML IV SCH (16:00)
[2016-09-28] MEDS ORDERED: CRG125 PO (17:16)
[2016-09-28] MEDS ORDERED: LISI-725 PO (17:16)
[2016-09-28] MEDS ORDERED: INSDGI SQ (17:16)
[2016-09-28] MEDS ORDERED: LPT40 PO (17:16)
[2016-09-28] MEDS ORDERED: INSU100I2 SQ (17:16)
[2016-09-28] MEDS ORDERED: SPR25 PO (17:16)
[2016-09-28] MEDS ORDERED: PLV75 PO (17:16)
[2016-09-28] MEDS ORDERED: LSN/2025 PO (17:16)
[2016-09-28] MEDS ORDERED: DOXY100C76 PO (17:16)
--- NOTE | 2016-09-28 17:32 | Discharge Instructions ---
Discharge Instructions Date of Service Sep 28, 2016. Admission Reason for Admission: Basal Ganglia Infarction, Diabetic Ketoacidosis Discharge Discharge Diagnosis / Problem: lacunar infract left basal ganglion, uncontrolled type 2 DM, pos lyme titer Discharge Goals Goal(s): Decrease discomfort, Increase independence, Improve disease control Activity Recommendations Activity Limitations: resume your previous activity . Instructions / Follow-Up Instructions / Follow-Up - Please take all the medication as indicated. - You are prescribed new medication for your diabetics. Take them as directed ( lantus 36unit daily and humalog 10unit with the largest meal of the day). - You are also prescribed Clopidogrel 75mg and take it as directed. - Stop aspirin. - Take doxycycline 100mg twice daily for 14 days. Follow up with your primary doctor for western blot result if it is negative Doxycycline can be stopped. - Take your blood pressure medication as directed. - Please follow with your primary doctor in 7-10 days. Current Hospital Diet Patient's current hospital diet: AHA Diet (Heart Healthy), Diabetes Type 2 Diet Discharge Diet Recommended Diet: Diabetes Type 2 Diet Pending Studies Studies pending at discharge: yes List of pending studies: western blot result Laboratory Results Hemoglobin A1c Test 09/25/16 12:30 Range/Units Estimated Average Glucose 421 mg/dl Hemoglobin A1c 16.3 H 4.5-5.6 % Lipid Panel Test 09/26/16 05:56 Range/Units Triglycerides Level 434 H 0-150 mg/dl Cholesterol Level 271 H 0-200 mg/dl HDL Cholesterol 32 mg/dl Cholesterol/HDL Ratio 8.5 LDL Cholesterol, Calculated mg/dl Medical Emergencies . Who to Call and When: Medical Emergencies: If at any time you feel your situation is an emergency, please call 911 immediately. . Non-Emergent Contact Non-Emergency issues call your: Primary Care Provider . . "Provider Documentation" section prepared by Heidy Coffey. . VTE Core Measure Inpt VTE Proph given/why not?: Unfractionated heparin SQ
--- NOTE | 2016-09-28 18:31 | Pharmacy Progress Note ---
Pharmacist Stroke Counseling Date of Service Sep 28, 2016. Scope Pharmacy has been consulted to provide medication discharge counseling for this patient admitted with ischemic stroke/hemorrhagic stroke/ transient ischemic attack as per the Pharmacist Discharge Counseling for Stroke Patients Protocol. Medications on Discharge New Medications: Doxycycline Monohydrate (Monodox) 100 Mg Cap 100 MG PO BID for 14 Days, #28 CAP Insulin Glargine (Lantus) 100 Unit/Ml Inj 36 UNIT SQ DAILY for 30 Days, VIAL Insulin Lispro (Human) (Humalog Kwikpen) 100 Unit/Ml Inj 10 UNIT SQ DAILY for 30 Days With the largest meal of the day Lisinopril (Zestril) 20 Mg Tab 20 MG PO DAILY for 30 Days, #30 TAB Atorvastatin (Atorvastatin Calcium) 40 Mg Tab 80 MG PO QAM for 30 Days, #60 TAB Carvedilol (Carvedilol) 12.5 Mg Tab 12.5 MG PO BID for 30 Days, #60 TAB Clopidogrel Bisulfate (Clopidogrel) 75 Mg Tab 75 MG PO QAM for 30 Days, #30 TAB Hctz/Lisinopril (Zestoretic 20MG/25MG) 1 Ea Tab 1 TAB PO QAM for 30 Days, #30 TAB Spironolactone (Spironolactone) 25 Mg Tab 25 MG PO QAM for 30 Days, #30 TAB Discontinued Medications: Aspirin (Aspirin Ec) 81 Mg Tab 81 MG PO DAILY Carvedilol (Coreg) Unknown Strength Tab 1 TAB PO BID Furosemide (Lasix) Unknown Strength Tab 1 TAB PO DAILY Lisinopril (Lisinopril) Unknown Strength Tab 1 TAB PO DAILY Spironolactone (Spironolactone) Unknown Strength Tab 1 TAB PO DAILY Action The above medications, specifically ones for stroke treatment/prophylaxis, have been reviewed in detail with the patient and/or patient software support representative(s) prior to discharge. This includes indication, common adverse reactions, drug interactions, and medication administration. Medication counseling has been employed using the teach-back method to ensure understanding. Outcome The patient has demonstrated understanding of the medications. Please note, they are aware that the pharmacist will call them within 72 hours post-discharge to confirm that the appropriate medications are being taken and answer any further medication related questions the patient might have at that time. Contact information Individual to be contacted: Delfina Relationship to patient (if applicable): N/A Phone number: [phone] Best time to call: morning Additional comments: Patient was very interested in learning about her medications and has demonstrated an understanding of the medications. We reviewed all of her new prescriptions and I answered any questions that she had. Of note, patient prescribed Zestoretic and Lisinopril ; confirmed with MD that she indeed wanted both prescriptions on discharge. Reviewed how she needed to follow up with her PCP to review the final results to her lymes test. Told patient that we will call her to answer any questions she has. Thank you for allowing pharmacy to be involved in the care of this patient. Please call [phone] or [phone] with any additional questions
--- NOTE | 2016-09-28 23:29 | Discharge Summary ---
Discharge Summary Date of Service Sep 28, 2016. (Heidy Coffey MD) Discharge Summary Admission Date: Sep 25, 2016 at 17:22 Discharge Date: Sep 28, 2016 Discharge Disposition: Home Principal Diagnosis: Subacute left basal ganglia stroke Problems/Secondary Diagnoses: poorly controlled DM, UTI, positive lyme IGG Immunizations: Have You Had Influenza Vaccine: No History of Tetanus Vaccine?: Yes History of Pneumococcal: No History of Hepatitis B Vaccine: Yes (Heidy Coffey MD) Medication Reconciliation New Medications: Doxycycline Monohydrate (Monodox) 100 Mg Cap 100 MG PO BID for 14 Days, #28 CAP Insulin Glargine (Lantus) 100 Unit/Ml Inj 36 UNIT SQ DAILY for 30 Days, VIAL Insulin Lispro (Human) (Humalog Kwikpen) 100 Unit/Ml Inj 10 UNIT SQ DAILY for 30 Days With the largest meal of the day Lisinopril (Zestril) 20 Mg Tab 20 MG PO DAILY for 30 Days, #30 TAB Atorvastatin (Atorvastatin Calcium) 40 Mg Tab 80 MG PO QAM for 30 Days, #60 TAB Carvedilol (Carvedilol) 12.5 Mg Tab 12.5 MG PO BID for 30 Days, #60 TAB Clopidogrel Bisulfate (Clopidogrel) 75 Mg Tab 75 MG PO QAM for 30 Days, #30 TAB Hctz/Lisinopril (Zestoretic 20MG/25MG) 1 Ea Tab 1 TAB PO QAM for 30 Days, #30 TAB Spironolactone (Spironolactone) 25 Mg Tab 25 MG PO QAM for 30 Days, #30 TAB Discontinued Medications: Aspirin (Aspirin Ec) 81 Mg Tab 81 MG PO DAILY Carvedilol (Coreg) Unknown Strength Tab 1 TAB PO BID Furosemide (Lasix) Unknown Strength Tab 1 TAB PO DAILY Lisinopril (Lisinopril) Unknown Strength Tab 1 TAB PO DAILY Spironolactone (Spironolactone) Unknown Strength Tab 1 TAB PO DAILY Discharge Exam Patient was seen at the bedside. She stated that she has been walking around on the hallway without any difficulty. Tolerating PO intake well. No acute event overnight. Better glucose control. Review of Systems: Constitutional: No sweats, No weakness Respiratory: No cough, No sputum, No shortness of breath Cardiovascular: No chest pain, No edema Abdomen: No pain, No nausea, No vomiting, No diarrhea, No constipation Musculoskeletal: No muscle pain Neurologic: + problem reported (complains of dizziness) Integumentary: No rash Physical Exam: General Appearance: WD/WN, no apparent distress, + obese Neck: supple, trachea midline Respiratory/Chest: chest non-tender, lungs clear, normal breath sounds, no respiratory distress, no accessory muscle use Cardiovascular: regular rate, rhythm, no edema Abdomen / GI: normal bowel sounds, non tender, soft Extremities: no calf tenderness, no pedal edema, non-tender Neurologic/Psychiatric: alert, normal mood/affect, oriented x 3 Skin: normal color, warm/dry, no rash (Heidy Coffey MD) feeling well today. excited to go home. blood sugars have been controlled Review of Systems: Constitutional: No fever Respiratory: No shortness of breath Cardiovascular: No chest pain Physical Exam: General Appearance: no apparent distress Respiratory/Chest: lungs clear, no respiratory distress Cardiovascular: regular rate, rhythm Abdomen / GI: normal bowel sounds, non tender, soft Neurologic/Psychiatric: alert, oriented x 3 Skin: warm/dry (Julianna Sotomayor M.D.) Hospital Course This is a 61 y/o F with a PMHx of poorly controlled DM2, HTN was sent from PCPs office for further workup for dizziness. Pt reports dizziness for 1 year that she has been trying to self medicate herself for with Aspirin and other OTC medications. Pt has had multiple falls over the past 12 months and had started to use a cane. Pt noticed a tick approximately 3 weeks ago and took it out almost immediately. She doesn't remember any tick bites previously. Pt denies any history of UTIs. Does have urinary frequency that she attributes to her many diuretics. CT of the head showed "chronic lacunar infarct is noted in the left basal ganglia.". Labs showed IGG +'ve for lyme disease and negative IGM. Pt has a history of CHF approx 7 years ago of unknown etiology, possibly 2/2 to Avenda ( Pioglitazone) use. * Subacute left basal ganglia stroke - CT of the head showed left basal ganglia lacunar infract. Dizziness could be 2/2 to the stroke. Neurology was consulted. Echo of the carotid showed plaque formation b/l. MRI of the brain confirmed CT findings. Patient was started on Atorvastatin 80mg daily, Plavix 75mg, HCTZ/lisinopril and coreg 12.5mg daily. Stress Echo was normal. Patient was sent home with Atorvastatin 80mg, Plavix, HCTZ/lisinopril and coreg. * Poorly controlled DM - Patient presented to the ED with elevated glucose level (492) and anion gap of 13. Her HgbA1c was 16.3. Patient was started on insulin drip per DKA protocol and subsequently transitioned to SQ insulin. She was educated about DM and emphasized on how important it is to take insulin regularly and monitor glucose level. On discharged patient was prescribed Lantus 36unit daily and Humalog 10unit with largest meal of the day per pharmacy recommendation. Patient was instructed to follow up with the PCP in 7-10days. H/o CHF 2/2 to unknown cause - Patient Echo was grossly normal with EF 50-50%. Pharmacologic stress test was normal. Abnormal UA - Urine culture showed Acosta Sensitive E. Coli. Patient completed 4 days of Ceftriaxone. Positive IgG, Negative IgM for Lyme - Pt cannot remember any tick bite from prior to 3 weeks ago. Pt has never been treated for Lyme. Waiting for western blot results to reflex. Case was discussed with ID and recommended Doxycycline 100mg BID [id number]. Doxy can be dc early if western blot result is negative. Patient is instructed to follow up with PCP for the result. HTN - Patient home doses were unknown as she doesn't take her medication regularly. Her BP remained elevated through out her hospital stay. Last BP was 159/89. Discharge home with HCTZ/lisinopril and lisinopril 20mg, Coreg 12.5mg and spironolactone 25mg daily. Recommended to follow up with the PCP and adjust the medication accordingly. Patient is obese and her frequent complain of dizziness could be 2/2 CHRISTINE. Consider sleep study, which can be done as outpatient. Total Time Spent: Greater than 30 minutes This includes examination of the patient, discharge planning, medication reconciliation, and communication with other providers. (Heidy Coffey MD) Resident Physician Supervision Note: I was present with in bedside. 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 Total Time Spent: Greater than 30 minutes (40) (Julianna Sotomayor M.D.) Discharge Instructions Please refer to the electronic Patient Visit Report (Discharge Instructions) for additional information. (Heidy Coffey MD) Additional Copies To Bhargavi Black D.O.
--- NOTE | 2016-09-29 11:13 | EDITING REQUIRED CODING QUERY ---
CODING QUERY To promote full compliance with coding requirements relating to patient care, provider participation is requested in all cases of hcc coders uncertainty. Please assist us with the question(s) below: Coding Question(s): Please clarify below, in your clinical opinion, regarding the DKA. ( X ) DKA was present on admission initially and treated and resolved ( ) There was no DKA present or treated during this admission Physician's Response(s): Thank you Suma Geiger Principal Diagnosis: "_that condition established after study, to be chiefly responsible for occasioning the admission of the patient to the hospital for care." Co-Existing Principal Diagnosis: "_when two or more diagnoses equally meet the criteria for principal diagnosis as determined by the circumstances of admission, diagnostic work up, and/or therapy provided, and the Alphabetic Index, Tabular List, or another coding guideline does not provide sequencing direction, any one of the diagnoses may be sequenced first." "When the physician has documented what appears to be a current diagnosis in the body of the record, but has not included the diagnosis in the final diagnostic statement, the physician should be asked whether the diagnosis should be added." (Source Coding [facility] 2 QTR90. p3-4)
--- NOTE | 2016-09-30 12:21 | Pharmacy Progress Note ---
Pharmacist Post D/C Phone Note Reported Home Medications Medications Dose Route/Sig Max Daily Dose Days Date Category Dose Instructions Humalog Kwikpen (Insulin Lispro (Human)) 100 Unit/Ml Inj 10 Unit SQ DAILY 30 09/28/16 Rx With the largest meal of the day Lantus (Insulin Glargine) 100 Unit/Ml Inj 36 Unit SQ DAILY 30 09/28/16 Rx Monodox (Doxycycline Monohydrate) 100 Mg Cap 100 Mg PO BID 14 09/28/16 Rx Zestril (Lisinopril) 20 Mg Tab 20 Mg PO DAILY 30 09/28/16 Rx Zestoretic 20MG/25MG (HCTZ/Lisinopril) 1 Ea Tab 1 Tab PO QAM 30 09/28/16 Rx Carvedilol 12.5 Mg Tab 12.5 Mg PO BID 30 09/28/16 Rx Atorvastatin Calcium (Atorvastatin) 40 Mg Tab 80 Mg PO QAM 30 09/28/16 Rx Spironolactone 25 Mg Tab 25 Mg PO QAM 30 09/28/16 Rx Clopidogrel (Clopidogrel Bisulfate) 75 Mg Tab 75 Mg PO QAM 30 09/28/16 Rx Date of phone call: Sep 30, 2016. Individual with whom pharmacist spoke to: Delfina The following questions were reviewed during the phone call with responses listed below each: Can you tell me the medications that you are currently taking as well as when and how you take each medication? - Patient had a hard time coming up with medications names, but recognized names after hearing them. She seems to be very organized with her medications at home and plans on using a pill box to keep track of them. She informed me that she put all of her old medications/medications that were stopped separate from the new ones. When have you missed any doses of your medications? - She did end up missing some doses because of issues with the pharmacy/ prescriptions. She also needed new needles for her insulin because she had ran out of them at home and she stated she had some difficulty with getting a new prescription. What side effects are you having from your medications? - she states she is feeling well and does not have any side effects from her medications What questions do you have about your medications? - she did not have any questions about her medications What problems are you having obtaining your medications? - she had initial problems with obtaining needles for her insulin, but it was resolved When is your next appointment with your primary care doctor? - her next appt with 10-09-16 with her PCP; I advised her to keep track of her BG with her meter and to bring that with her on her visit Additional comments: - Patient was very nice to talk with and expressed an understanding of her medications. Many of the medications were old medications so she was familiar with them, but some of the doses have changed. Patient also stated that she has been having constipation despite being on miralax and metamucil. I recommended that she increase her fiber intake, and to go to her pharmacy to try another agent (ie docusate/senna). I recommended that she ask the pharmacist at her pharmacy to help with picking out an agent. As per the Pharmacist Discharge Counseling for Stroke Patients Protocol, this phone call has been completed within 72 hours of discharge. Thank you for allowing us to be involved in the care of this patient. Thank you for allowing us to be involved in the care of this patient.
[2016-09-30 15:00] LABS: 18KDIGG BAND NONREACTIVE (NONREACTIVE); 23KDIGG BAND NONREACTIVE (NONREACTIVE); 23KDIGM BAND NONREACTIVE (NONREACTIVE); 28KDIGG BAND NONREACTIVE (NONREACTIVE); 30KDIGG BAND NONREACTIVE (NONREACTIVE); 39KDIGG BAND NONREACTIVE (NONREACTIVE); 39KDIGM BAND NONREACTIVE (NONREACTIVE); 41KDIGG BAND REACTIVE (NONREACTIVE); 41KDIGM BAND NONREACTIVE (NONREACTIVE); 45KDIGG BAND NONREACTIVE (NONREACTIVE); 58KDIGG BAND NONREACTIVE (NONREACTIVE); 66KDIGG BAND NONREACTIVE (NONREACTIVE); 93KDIGG BAND NONREACTIVE (NONREACTIVE)
== END 2016-09-28 18:29 | disposition home or self-care (01) | DRG 64 ==
LOC: C.EDB 11:52 → EEVIPCON 17:22 → C.2T 17:22 → ENRESERV 18:19
PROVIDERS: ADMIT Internal Medicine; ATTEND Family Medicine
DX: I63.9 Cerebral infarction, unspecified (principal); E13.10 Other specified diabetes mellitus with ketoacidosis without coma; N39.0 Urinary tract infection, site not specified; I16.9 Hypertensive crisis, unspecified; I42.9 Cardiomyopathy, unspecified; B96.20 Unspecified Escherichia coli [E. coli] as the cause of diseases classified elsewhere; E11.65 Type 2 diabetes mellitus with hyperglycemia; R76.8 Other specified abnormal immunological findings in serum; R29.700 NIHSS score 0; G47.33 Obstructive sleep apnea (adult) (pediatric); M79.661 Pain in right lower leg; K59.00 Constipation, unspecified; I67.82 Cerebral ischemia; I50.9 Heart failure, unspecified; E11.42 Type 2 diabetes mellitus with diabetic polyneuropathy; E78.5 Hyperlipidemia, unspecified; I11.0 Hypertensive heart disease with heart failure; E66.9 Obesity, unspecified; Z51.81 Encounter for therapeutic drug level monitoring; Z79.899 Other long term (current) drug therapy; Z79.82 Long term (current) use of aspirin; Z79.4 Long term (current) use of insulin; Z91.128 Patient's intentional underdosing of medication regimen for other reason; Z91.81 History of falling; Z68.31 Body mass index [BMI] 31.0-31.9, adult; Z83.3 Family history of diabetes mellitus; Z82.49 Family history of ischemic heart disease and other diseases of the circulatory system; Z83.518 Family history of other specified eye disorder; Z82.0 Family history of epilepsy and other diseases of the nervous system

== ENCOUNTER → 2017-06-21 | Outpatient (CLI) | payer OTHER ==
[~2017-06-21] MED LIST: CRG125 PO; INSU100I2 SQ; LPT40 PO; LSN/2025 PO; PLV75 PO; SPR25 PO
== END | disposition home or self-care (01) ==
LOC: C.LABBC 15:28
PROVIDERS: ATTEND Physician Assistant
DX: A69.20 Lyme disease, unspecified (principal)

== ENCOUNTER → 2017-06-24 | Outpatient (CLI) | payer OTHER ==
[~2017-06-24] MED LIST changes: +GADAVIST IV PRN
--- NOTE | 2017-06-24 16:52 | DIAGNOSTIC IMAGING REPORT ---
BRAIN COMBO HISTORY: 61 years-old Female I63.9 Ischemic [id number] H/o Lyme disease acute infarction of the left shipman radiata seen on comparison study 09/25/2016. COMPARISON: Brain MRI 09/25/2016 TECHNIQUE: Multiplanar multisequence MRI of the brain was obtained both with and without the use of 10 mL Gadavist FINDINGS: The large [id number] snap attacher localizer images demonstrate no gross abnormality. There is no restricted diffusion identified to suggest acute or subacute infarction. There is resolution of the previously noted focus of restricted diffusion of the left cerebral hemisphere. There is however a focal area of encephalomalacia and mild gliosis now seen within this distribution. Midline structures including the corpus callosum, brainstem, optic chiasm, pituitary and pineal glands are unremarkable on the sagittal T1 series. There is no cerebellar tonsillar herniation. There is no acute intracranial hemorrhage, midline shift, abnormal extra-axial collections or hydrocephalus. Moderate multifocal areas of T2/FLAIR prolongation are again seen within the subcortical, deep and periventricular white matter of the cerebral hemispheres bilaterally which have slightly worsened in the interval. There is no abnormal intra-axial or extra-axial enhancement identified. Major flow voids at the level of the skull base appear patent. Orbits are symmetric and within normal limits. Mastoid air cells are clear. Minimal mucosal thickening of the ethmoid air cells. Dental amalgam artifact limits evaluation of the sinuses. Scalp, calvarium and soft tissues are unremarkable. IMPRESSION: 1. No acute intracranial abnormality identified. No evidence of acute infarction or abnormal enhancement. 2. Minimal encephalomalacia and gliosis associated with a remote lacunar infarction of the left shipman radiata. 3. Moderate multifocal areas of T2/FLAIR prolongation are again seen within the subcortical, deep and periventricular white matter of the cerebral hemispheres bilaterally which have slightly worsened in the interval. The primary differential considerations would include progressive chronic microvascular ischemic changes or demyelinating disease. The above report was generated using voice recognition software. It may contain grammatical, syntax or spelling errors. Electronically signed by: Magan Roberts M.D. 06/24/2017 4:51 PM Dictated Date/Time: 06/24/2017 4:41 PM
== END | disposition home or self-care (01) ==
LOC: C.MRI 15:21
PROVIDERS: ATTEND Physician Assistant
DX: I63.9 Cerebral infarction, unspecified (principal); Z86.19 Personal history of other infectious and parasitic diseases; R90.82 White matter disease, unspecified

== ENCOUNTER → 2017-11-15 | Outpatient (CLI) | payer OTHER ==
[~2017-11-15] MED LIST changes: -GADAVIST IV PRN; +LISI20TA10 PO; -LSN/2025 PO; +SPIR25TA6 PO; -SPR25 PO
[2017-11-15 13:25] LABS: ALT/SGPT 22 U/L (12-78); AST/SGOT 14 U/L (15-37)
== END | disposition home or self-care (01) ==
LOC: C.LABBFT 09:48
PROVIDERS: ATTEND Internal Medicine Cardiovascular Disease
DX: E78.5 Hyperlipidemia, unspecified (principal)

== ENCOUNTER → 2017-11-22 | Outpatient (CLI) | payer OTHER ==
[2017-11-22 14:01] LABS: BLOOD UREA NITROGEN 34 mg/dl (7-18); CALCIUM 10.3 mg/dl (8.5-10.1); CARBON DIOXIDE 26 mmol/L (21-32); CHOLESTEROL 126 mg/dl (0-200); CREATININE 1.39 mg/dl (0.60-1.20); GLUCOSE 315 mg/dl (70-99); LDL CHOLESTEROL CALCULATED 52 mg/dl; PHOSPHORUS 2.1 mg/dl (2.5-4.9); POTASSIUM 3.7 mmol/L (3.5-5.1); SODIUM 138 mmol/L (136-145)
== END | disposition home or self-care (01) ==
LOC: C.LABBFT 08:58
PROVIDERS: ATTEND Internal Medicine Endocrinology, Diabetes & Metabolism
DX: E11.65 Type 2 diabetes mellitus with hyperglycemia (principal); E78.5 Hyperlipidemia, unspecified; E83.52 Hypercalcemia

== ENCOUNTER → 2017-11-23 | Outpatient (CLI) | payer OTHER ==
[2017-11-23 15:34] LABS: CREATININE RANDOM URINE 92.9 mg/dl
== END | disposition home or self-care (01) ==
LOC: C.LABBFT 08:53
PROVIDERS: ATTEND Internal Medicine Endocrinology, Diabetes & Metabolism
DX: E11.65 Type 2 diabetes mellitus with hyperglycemia (principal)

== ENCOUNTER 2018-06-30 12:22 | Inpatient (IN) ==
[2018-06-30] MEDS ORDERED: ACETAMINOPHEN 500 MG TAB PO STA (13:20)
[2018-06-30] MEDS ORDERED: ONDANSETRON INJ 2 MG/ML 2 ML VIAL IV STA (13:20)
[2018-06-30] MEDS ORDERED: SODIUM CHLORIDE 0.9% 1000ML 1,000 ML IV SCH (13:30)
[2018-06-30 13:34] LABS: Basophils # (auto) 0.04 K/uL (0-0.2); Basophils % (auto) 0.3 %; Hemoglobin 12.8 g/dL (12.0-16.0); Immature Granulocytes # (auto) 0.02 K/uL (0.00-0.02); Immature Granulocytes % (auto) 0.2 %; Lymphocytes # (auto) 0.57 K/uL (1.2-3.4); Lymphocytes % (auto) 4.9 %; Mean Corpuscular Hgb Conc 33.7 g/dL (32-36); Monocytes # (auto) 0.47 K/uL (0.11-0.59); Neutrophils # (auto) 10.63 K/uL (1.4-6.5); Neutrophils % (auto) 90.6 %; Platelet Count 165 K/uL (130-400); RDW Coefficient of Variation 14.6 % (11.5-14.5); RDW Standard Deviation 44.8 fL (36.4-46.3); Red Blood Count 4.58 M/uL (4.2-5.4); White Blood Count 11.73 K/uL (4.8-10.8)
--- NOTE | 2018-06-30 13:39 | Emergency Department Note ---
ED Provider Note CHIEF COMPLAINT: Flu-like symptoms, right flank pain, dehydration HISTORY OF PRESENTING ILLNESS: This is a 62-year-old female who presents to the emergency department with complaint of flu-like symptoms for the past few days. She states that she has had a chronic sinus infection for the past few months, but was only recently started on amoxicillin 4 days ago. She states for the past 3 days she has had nausea, vomiting, and dry heaves, and has been unable to keep down any food or fluids. She has had some occasional loose stools, but den ies any persistent or severe watery diarrhea. She has had fevers and chills with this off and on, she is not sure how high her fever has been at home because she did not check her temperature. She does note that she has had a cough and congestion and did cough up some blood a few days ago. She also has started to have some pain in her right side that has been constant, worse with coughing and taking a deep breath currently rates as 6/10. She has not taken any Tylenol or ibuprofen for her symptoms. She does take Plavix, and denies any other blood thinners. She denies any headaches, vision changes, neck pain or stiffness, chest pain, shortness of breath, abdominal pain, urinary complaints, or unusual rash. She reports that she did have a flu shot this year. REVIEW OF SYSTEMS: A complete 10 point review of systems was reviewed with the patient with pertinent positives and negatives as per history of present illness. All else were negative. PAST MEDICAL HISTORY: CHF, hypertension, hyperlipidemia, chronic Lyme disease, insulin-dependent diabetes SOCIAL HISTORY: Lives at home with her , denies tobacco use ALLERGIES: Reviewed in chart PHYSICAL EXAM: CONSTITUTIONAL: Pleasant and cooperative. No acute distress, but appears to feel unwell. Pale and moderately dehydrated. HEENT: Normocephalic, atraumatic. PERRL, EOMI. TMs normal bilaterally. Pharynx normal. Dry mucous membranes. NECK: Supple, full active range of motion without discomfort. No cervical adenopathy. No nuchal rigidity, negative Brudzinski and Kernig's. RESPIRATORY: Clear to auscultation bilaterally with no wheezing, crackles, rhonchi or stridor. Equal expansion bilaterally. CARDIOVASCULAR: Regular rate and rhythm with no murmurs, rubs or gallops. Normal peripheral perfusion. No edema. GASTROINTESTINAL: Tenderness to palpation in the right upper quadrant and right flank, soft and nondistended. Obese abdomen. No palpable masses or HSM. Bowel sounds present in all quadrants. No CVA tenderness bilaterally. MUSCULOSKELETAL: Full range of motion of all joints without discomfort. INTEGUMENTARY: No rash or other significant dermatologic conditions noted. NEUROLOGIC: Alert and oriented X 4 with normal affect. Generalized weakness, but exhibits normal strength and sensation in all 4 extremities. Normal speech. Normal gait observed. ED COURSE AND MEDICAL DECISION MAKING: CC: Patient presenting with complaint of flu-like symptoms, right flank pain, nausea/vomiting, dehydration DIFFERENTIAL DIAGNOSIS: Includes, but not limited to gastroenteritis, gastritis, infectious colitis, cholecystitis, pancreatitis, UTI, pyelonephritis, ureteral stone, appendicitis, influenza, viral URI, bronchitis, pneumonia, sinusitis bacteremia/sepsis, dehydration, electrolyte abnormality, ACS, PE, among others. INTERPRETATION OF LABS: Mild leukocytosis, no anemia, normal platelets, hyperglycemia, no other significant electrolyte abnormalities, slightly elevated BUN and creatinine, normal liver enzymes. Lactic acid and pro calcitonin are within normal limits. Troponin is elevated. Pro-BNP is significantly elevated. UA appears grossly contaminated, urine culture is pending. Influenza A/B negative. IMAGING: XR chest 1V portable CLINICAL HISTORY: cough, fever dyspnea COMPARISON STUDY: 09/25/2016 FINDINGS: Diffuse parenchymal infiltrative process of the right mid to lower lung region. Moderate cardiomegaly. Left lung is clear. IMPRESSION: Diffuse right hemithoracic infiltrate. Follow-up to complete resolution is suggested. EKG: Shows sinus tachycardia with a rate of 104 bpm, no ectopy, LVH with repolarization abnormality, ST depression noted in the anterior leads V3 through V5, which appears to be new when compared to previous EKG from 09/28/2016 by my interpretation. MEDICATION RECONCILIATION: I attest that I have personally reviewed the patient's current medication list. INITIAL VITAL SIGNS REVIEW: I reviewed the patient's initial vital signs and interpret them as follows: T: Febrile; BP: Markedly hypertensive; HR: Tachycardic; RR: Within normal limits; Pulse Ox: Within normal limits on room air. Blood pressure screening: The patient was found to have an elevated blood pressure and was referred to the inpatient team for further management. MDM SUMMARY: Patient was evaluated at bedside, history and physical exam performed. Patient is alert and oriented, in no acute distress, but appears unwell, pale and generally weak. She appears to be moderately dehydrated as well. She is noted to be febrile, tachycardic, and hypertensive on arrival. She is actively dry heaving at times. She denies any chest pain or shortness of breath, she does not have any labored breathing and is not tachypneic or hypoxic. Lungs are diminished bilaterally but otherwise clear on auscultation. Orders were placed at bedside for labs, UA, influenza A/B, lactic acid, blood cultures x2 for septic workup, EKG, chest x-ray to evaluate for cardio pulmonary disease. Given the complaint of right flank/chest pain, CT imaging was also ordered to evaluate for possible PE. Tylenol ordered for fever. EKG reviewed, noting sinus tachycardia and ST depressions in the anterior leads which appear to be new. I was also notified by the charge nurse that the patient's troponin is elevated at 0.688. Patient discussed with Dr. Jacobson, who also evaluated the patient agrees with my assessment, plan, and disposition. Labs and imaging reviewed as above, noting mild leukocytosis, slightly worsened renal function, as well as an elevated BNP. Influenza is negative. UA appears to be negative. Pro-calcitonin and lactic acid are both within normal limits, which would suggest a viral process. Chest x-ray shows a large right-sided infiltrate concerning for pneumonia. I suspect this finding is most likely the cause of the patient's right sided flank/chest pain. Given the elevated creatinine today, CT imaging was canceled for the time being. After discussion with the ED pharmacist, decision was made to place the patient on IV cefepime and IV azithromycin for coverage of community-acquired pneumonia. Patient did appear moderately dehydrated and tachycardic on arrival, and reported minimal fluid intake over the past 3 days, so she was cautiously given 1 L of IV fluid bolus for hydration. There was documentation from nursing that the patient dropped her sats into the 70s and was placed on oxygen, however on my reassessment, the patient was not getting a good reading from the pulse ox, and was placed in another area and now has good oxygenation, and is being weaned back off of the oxygen at this time. Due to the concern for issues with oxygenation as well as the patient's past history of congestive heart failure with a significantly elevated BNP, she was not further hydrated per sepsis protocol at this time. Patient reassessed multiple times throughout ED stay, she has remained hemodynamically stable and appears improved after the above treatments. She has defervesced appropriately after Tylenol. She states that she does feel much better, but is still very weak. I did recommend to the patient that she be admitted for treatment of her pneumonia, she was agreeable to this plan. I do feel that the patient's slightly elevated troponin and ST depressions on EKG are most likely demand ischemia due to her illness, recommend trending during her admission and cardiology consult as deemed appropriate by the inpatient team. I spoke on the phone with Dr. [place], [facility] Hospitalist, who agrees to evaluate the patient for admission. The patient was stable at time of admission. CRITICAL CARE NOTE: I have personally spent greater than 30 minutes of critical care time in the direct management of this patient. This includes bedside care, interpretation of diagnostic studies, and testing, discussion with consultants, patient, and family members, and other required patient management activities. This 30 minutes is in excess of all separately billable procedures. The chart was completed utilizing [employer] Speech voice recognition software. Grammatical errors, random word insertions, pronoun errors, and incomplete sentences are an occasional consequence of this system due to software limitations, ambient noise, and hardware issues. Any formal questions or concerns about the content, text, or information contained within the body of this dictation should be directly addressed to the nurse practitioner for clarification. Impression & Plan CAP (community acquired pneumonia), Elevated troponin Past Med/Surg History Social History Preferred Language: Welsh Communication Ability: Effective Car Unloader Required: No Beliefs That Will Affect Care: None Current Living Situation: Spouse Other Information That Helps Us Care for You: No Feels Safe at Home: Yes Safety Concerns: Feels Safe At This Time Smoking Status: Never smoker Hx Alcohol Use: Yes Hx Substance Use: No Results & Data Vital Signs Vital Signs - 24 hr 06/30/18 12:43 06/30/18 12:52 06/30/18 13:03 Temperature 38.4 C H Temperature Source Oral Oral Sepsis Recent Fever Within 48 Hours Yes Sepsis New/Unexplained Change in Mental Status No Sepsis Action Taken by Nursing No Action Required Pulse Rate 104 H Pulse Rate [Finger] Pulse Rate from SpO2 Sensor Respiratory Rate 18 Respiratory Effort / Characteristics Respiratory Depth Normal Blood Pressure 234/116 H Blood Pressure [Left Arm] Blood Pressure Mean 155 Blood Pressure Mean [Left Arm] Blood Pressure Position Sitting Blood Pressure Position [Left Arm] Pulse Oximetry 92 96 Oxygen Delivery Method Room Air Room Air Oxygen Flow Rate 06/30/18 13:38 06/30/18 13:40 06/30/18 13:50 Temperature Temperature Source Sepsis Recent Fever Within 48 Hours Sepsis New/Unexplained Change in Mental Status Sepsis Action Taken by Nursing Pulse Rate 102 H 103 H 104 H Pulse Rate [Finger] Pulse Rate from SpO2 Sensor Respiratory Rate 37 H 36 H 24 Respiratory Effort / Characteristics Respiratory Depth Blood Pressure Blood Pressure [Left Arm] Blood Pressure Mean Blood Pressure Mean [Left Arm] Blood Pressure Position Blood Pressure Position [Left Arm] Pulse Oximetry Oxygen Delivery Method Oxygen Flow Rate 06/30/18 14:00 06/30/18 14:10 06/30/18 14:20 Temperature Temperature Source Sepsis Recent Fever Within 48 Hours Sepsis New/Unexplained Change in Mental Status Sepsis Action Taken by Nursing Pulse Rate 104 H 107 H 109 H Pulse Rate [Finger] Pulse Rate from SpO2 Sensor Respiratory Rate 30 H 23 13 Respiratory Effort / Characteristics Respiratory Depth Blood Pressure Blood Pressure [Left Arm] Blood Pressure Mean Blood Pressure Mean [Left Arm] Blood Pressure Position Blood Pressure Position [Left Arm] Pulse Oximetry Oxygen Delivery Method Oxygen Flow Rate 06/30/18 14:23 06/30/18 14:30 06/30/18 14:36 Temperature Temperature Source Sepsis Recent Fever Within 48 Hours Sepsis New/Unexplained Change in Mental Status Sepsis Action Taken by Nursing Pulse Rate 113 H 108 H Pulse Rate [Finger] Pulse Rate from SpO2 Sensor 108 H Respiratory Rate 21 20 Respiratory Effort / Characteristics Respiratory Depth Blood Pressure 238/113 H Blood Pressure [Left Arm] Blood Pressure Mean 154 Blood Pressure Mean [Left Arm] Blood Pressure Position Blood Pressure Position [Left Arm] Pulse Oximetry 73 L Oxygen Delivery Method Room Air Oxygen Flow Rate 06/30/18 14:37 06/30/18 14:39 06/30/18 14:40 Temperature Temperature Source Sepsis Recent Fever Within 48 Hours Sepsis New/Unexplained Change in Mental Status Sepsis Action Taken by Nursing Pulse Rate 107 H 109 H Pulse Rate [Finger] Pulse Rate from SpO2 Sensor 108 H 108 H Respiratory Rate 13 16 Respiratory Effort / Characteristics Respiratory Depth Blood Pressure Blood Pressure [Left Arm] Blood Pressure Mean Blood Pressure Mean [Left Arm] Blood Pressure Position Blood Pressure Position [Left Arm] Pulse Oximetry 70 L 91 90 Oxygen Delivery Method Nasal Cannula Oxygen Flow Rate 6 03/28/19 14:50 06/30/18 15:00 06/30/18 15:02 Temperature Temperature Source Sepsis Recent Fever Within 48 Hours Sepsis New/Unexplained Change in Mental Status Sepsis Action Taken by Nursing Pulse Rate 104 H 107 H Pulse Rate [Finger] Pulse Rate from SpO2 Sensor 109 H 104 H 106 H Respiratory Rate 36 H 22 Respiratory Effort / Characteristics Respiratory Depth Blood Pressure 218/110 H 157/100 H Blood Pressure [Left Arm] Blood Pressure Mean 146 119 Blood Pressure Mean [Left Arm] Blood Pressure Position Blood Pressure Position [Left Arm] Pulse Oximetry 89 L 95 95 Oxygen Delivery Method Nasal Cannula Nasal Cannula Oxygen Flow Rate 3 3 06/30/18 15:10 06/30/18 15:20 06/30/18 15:22 Temperature Temperature Source Sepsis Recent Fever Within 48 Hours Sepsis New/Unexplained Change in Mental Status Sepsis Action Taken by Nursing Pulse Rate 102 H 99 H Pulse Rate [Finger] Pulse Rate from SpO2 Sensor 103 H 99 H Respiratory Rate 33 H 32 H Respiratory Effort / Characteristics Spontaneous Short of Breath SOB on Exertion Respiratory Depth Normal Blood Pressure Blood Pressure [Left Arm] Blood Pressure Mean Blood Pressure Mean [Left Arm] Blood Pressure Position Blood Pressure Position [Left Arm] Pulse Oximetry 95 85 L Oxygen Delivery Method Nasal Cannula Nasal Cannula Oxygen Flow Rate 3 6 06/30/18 15:29 06/30/18 15:30 06/30/18 15:31 Temperature Temperature Source Sepsis Recent Fever Within 48 Hours Sepsis New/Unexplained Change in Mental Status Sepsis Action Taken by Nursing Pulse Rate 97 H 98 H 96 H Pulse Rate [Finger] Pulse Rate from SpO2 Sensor 98 H 98 H 96 H Respiratory Rate 31 H 23 32 H Respiratory Effort / Characteristics Respiratory Depth Blood Pressure 191/95 H 153/100 H Blood Pressure [Left Arm] Blood Pressure Mean 127 117 Blood Pressure Mean [Left Arm] Blood Pressure Position Blood Pressure Position [Left Arm] Pulse Oximetry 92 93 97 Oxygen Delivery Method Oxygen Flow Rate 06/30/18 15:40 06/30/18 15:50 06/30/18 16:00 Temperature Temperature Source Sepsis Recent Fever Within 48 Hours Sepsis New/Unexplained Change in Mental Status Sepsis Action Taken by Nursing Pulse Rate 95 H 95 H 93 H Pulse Rate [Finger] Pulse Rate from SpO2 Sensor 95 H 97 H 94 H Respiratory Rate 25 H 21 17 Respiratory Effort / Characteristics Respiratory Depth Blood Pressure Blood Pressure [Left Arm] Blood Pressure Mean Blood Pressure Mean [Left Arm] Blood Pressure Position Blood Pressure Position [Left Arm] Pulse Oximetry 95 96 93 Oxygen Delivery Method Oxygen Flow Rate 06/30/18 16:02 06/30/18 16:03 06/30/18 17:00 Temperature Temperature Source Sepsis Recent Fever Within 48 Hours Sepsis New/Unexplained Change in Mental Status Sepsis Action Taken by Nursing Pulse Rate 94 H 94 H 90 Pulse Rate [Finger] Pulse Rate from SpO2 Sensor 94 H 90 Respiratory Rate 29 H 24 24 Respiratory Effort / Characteristics Respiratory Depth Blood Pressure 195/107 H 195/102 H Blood Pressure [Left Arm] Blood Pressure Mean 136 133 Blood Pressure Mean [Left Arm] Blood Pressure Position Blood Pressure Position [Left Arm] Pulse Oximetry 94 92 Oxygen Delivery Method Oxygen Flow Rate 06/30/18 17:36 06/30/18 17:38 06/30/18 17:39 Temperature 37.0 C Temperature Source Oral Sepsis Recent Fever Within 48 Hours Sepsis New/Unexplained Change in Mental Status Sepsis Action Taken by Nursing Pulse Rate Pulse Rate [Finger] Pulse Rate from SpO2 Sensor Respiratory Rate Respiratory Effort / Characteristics Respiratory Depth Blood Pressure 180/96 H Blood Pressure [Left Arm] Blood Pressure Mean 124 Blood Pressure Mean [Left Arm] Blood Pressure Position Blood Pressure Position [Left Arm] Pulse Oximetry Oxygen Delivery Method Nasal Cannula Oxygen Flow Rate 3 06/30/18 19:23 Temperature 37.3 C Temperature Source Oral Sepsis Recent Fever Within 48 Hours Sepsis New/Unexplained Change in Mental Status Sepsis Action Taken by Nursing Pulse Rate Pulse Rate [Finger] 95 H Pulse Rate from SpO2 Sensor Respiratory Rate Respiratory Effort / Characteristics Respiratory Depth Blood Pressure Blood Pressure [Left Arm] 188/76 H Blood Pressure Mean Blood Pressure Mean [Left Arm] 113 Blood Pressure Position Blood Pressure Position [Left Arm] Lying Pulse Oximetry 90 Oxygen Delivery Method Room Air Oxygen Flow Rate Laboratory Data Result diagrams: 06/30/18 13:00 06/30/18 13:00 Lab Results 06/30/18 06/30/18 06/30/18 Range/Units 13:00 13:00 13:00 WBC 11.73 H (4.8-10.8) K/uL RBC 4.58 (4.2-5.4) M/uL Hgb 12.8 (12.0-16.0) g/dL POC Hgb (12.0-16.0) g/dl Hct 38.0 (37-47) % POC Hct (37-47) % MCV 83.0 (80-100) fL MCH 27.9 (25-34) pg MCHC 33.7 (32-36) g/dL RDW Std Deviation 44.8 (36.4-46.3) fL RDW Coeff of Braeden 14.6 H (11.5-14.5) % Plt Count 165 (130-400) K/uL MPV 10.0 (7.4-10.4) fL Immature Gran % (Auto) 0.2 % Neut % (Auto) 90.6 % Lymph % (Auto) 4.9 % Riley % (Auto) 4.0 % Eos % (Auto) 0.0 % Baso % (Auto) 0.3 % Immature Gran # (Auto) 0.02 (0.00-0.02) K/uL Neut # (Auto) 10.63 H (1.4-6.5) K/uL Lymph # (Auto) 0.57 L (1.2-3.4) K/uL Riley # (Auto) 0.47 (0.11-0.59) K/uL Eos # (Auto) 0.00 (0-0.5) K/uL Baso # (Auto) 0.04 (0-0.2) K/uL PT 10.9 (9.0-12.0) Seconds INR 1.1 (0.9-1.1) POC Sodium (135-144) mEq/L Sodium 139 (136-145) mmol/L POC Potassium (3.3-5.0) mEq/L Potassium 3.5 (3.5-5.1) mmol/L POC Chloride (101-112) mEq/L Chloride 108 H (98-107) mmol/L Carbon Dioxide 24 (21-32) mmol/L POC Total CO2 (24-31) mEq/l Anion Gap 8.0 (3-11) POC Anion Gap (16-25) mmol/L POC BUN (7-18) mg/dl BUN 45 H (7-18) mg/dl Creatinine 1.63 H (0.6-1.2) mg/dl POC Creatinine (0.6-1.3) mg/dl Est Cr Clr Drug Dosing 44.6 ml/min Est GFR ( Amer) 38.7 Est GFR (Non-Af Amer) 33.4 BUN/Creatinine Ratio 27.5 H (10-20) Glucose 216 H (70-99) mg/dl POC Glucose (70-99) POC Glucose (other) (70-99) mg/dl POC Lactic Acid Uriah (0.90-1.70) mmol/L Calcium 10.3 H (8.5-10.1) mg/dl POC Ioniz Calcium Beti (1.12-1.32) mmol/l Phosphorus (2.5-4.9) mg/dl Magnesium (1.8-2.4) mg/dl Total Bilirubin 0.5 (0.2-1) mg/dl AST 43 H (15-37) U/L ALT 27 (12-78) U/L Alkaline Phosphatase 72 (45-117) U/L Troponin I 0.688 H* (0-0.045) ng/ml NT-Pro-B Natriuret Pep (0-900) pg/ml Total Protein 7.2 (6.4-8.2) gm/dl Albumin 2.6 L (3.4-5.0) gm/dl Globulin 4.6 H (2.5-4.0) gm/dl Albumin/Globulin Ratio 0.6 L (0.9-2) Procalcitonin (0-0.5) ng/ml TSH (0.300-4.500) uIu/ml Urine Color Urine Appearance (Clear) Urine pH (4.5-7.5) Ur Specific [place] (1.000-1.030) Urine Protein (Negative) Urine Glucose (UA) (Negative) Urine Ketones (Negative) Urine Blood (Negative) Urine Nitrite (Negative) Urine Bilirubin (Negative) Urine Urobilinogen (Negative) Ur Leukocyte Esterase (Negative) Urine WBC (Auto) (0-5) /hpf Urine RBC (Auto) (0-4) /hpf U Hyaline Cast (Auto) (0-5) /lpf U Epithel Cells (Auto) (0-5) /lpf Urine Bacteria (Auto) (Negative) Ur Renal Epithelial Cell Granular Casts (0) /lpf Influenza Type A Ag (Neg) Influenza Type B Ag (Neg) 06/30/18 06/30/18 06/30/18 Range/Units 13:00 13:00 13:00 WBC (4.8-10.8) K/uL RBC (4.2-5.4) M/uL Hgb (12.0-16.0) g/dL POC Hgb (12.0-16.0) g/dl Hct (37-47) % POC Hct (37-47) % MCV (80-100) fL MCH (25-34) pg MCHC (32-36) g/dL RDW Std Deviation (36.4-46.3) fL RDW Coeff of Braeden (11.5-14.5) % Plt Count (130-400) K/uL MPV (7.4-10.4) fL Immature Gran % (Auto) % Neut % (Auto) % Lymph % (Auto) % Riley % (Auto) % Eos % (Auto) % Baso % (Auto) % Immature Gran # (Auto) (0.00-0.02) K/uL Neut # (Auto) (1.4-6.5) K/uL Lymph # (Auto) (1.2-3.4) K/uL Riley # (Auto) (0.11-0.59) K/uL Eos # (Auto) (0-0.5) K/uL Baso # (Auto) (0-0.2) K/uL PT (9.0-12.0) Seconds INR (0.9-1.1) POC Sodium (135-144) mEq/L Sodium (136-145) mmol/L POC Potassium (3.3-5.0) mEq/L Potassium (3.5-5.1) mmol/L POC Chloride (101-112) mEq/L Chloride (98-107) mmol/L Carbon Dioxide (21-32) mmol/L POC Total CO2 (24-31) mEq/l Anion Gap (3-11) POC Anion Gap (16-25) mmol/L POC BUN (7-18) mg/dl BUN (7-18) mg/dl Creatinine (0.6-1.2) mg/dl POC Creatinine (0.6-1.3) mg/dl Est Cr Clr Drug Dosing ml/min Est GFR ( Amer) Est GFR (Non-Af Amer) BUN/Creatinine Ratio (10-20) Glucose (70-99) mg/dl POC Glucose (70-99) POC Glucose (other) (70-99) mg/dl POC Lactic Acid Uriah (0.90-1.70) mmol/L Calcium (8.5-10.1) mg/dl POC Ioniz Calcium Beti (1.12-1.32) mmol/l Phosphorus (2.5-4.9) mg/dl Magnesium (1.8-2.4) mg/dl Total Bilirubin (0.2-1) mg/dl AST (15-37) U/L ALT (12-78) U/L Alkaline Phosphatase (45-117) U/L Troponin I (0-0.045) ng/ml NT-Pro-B Natriuret Pep 16497 H (0-900) pg/ml Total Protein (6.4-8.2) gm/dl Albumin (3.4-5.0) gm/dl Globulin (2.5-4.0) gm/dl Albumin/Globulin Ratio (0.9-2) Procalcitonin 0.39 (0-0.5) ng/ml TSH (0.300-4.500) uIu/ml Urine Color Urine Appearance (Clear) Urine pH (4.5-7.5) Ur Specific [place] (1.000-1.030) Urine Protein (Negative) Urine Glucose (UA) (Negative) Urine Ketones (Negative) Urine Blood (Negative) Urine Nitrite (Negative) Urine Bilirubin (Negative) Urine Urobilinogen (Negative) Ur Leukocyte Esterase (Negative) Urine WBC (Auto) (0-5) /hpf Urine RBC (Auto) (0-4) /hpf U Hyaline Cast (Auto) (0-5) /lpf U Epithel Cells (Auto) (0-5) /lpf Urine Bacteria (Auto) (Negative) Ur Renal Epithelial Cell Granular Casts (0) /lpf Influenza Type A Ag Neg for Influ A (Neg) Influenza Type B Ag Neg for Influ B (Neg) 06/30/18 06/30/18 06/30/18 Range/Units 13:40 13:44 17:50 WBC (4.8-10.8) K/uL RBC (4.2-5.4) M/uL Hgb (12.0-16.0) g/dL POC Hgb 12.6 (12.0-16.0) g/dl Hct (37-47) % POC Hct 37 (37-47) % MCV (80-100) fL MCH (25-34) pg MCHC (32-36) g/dL RDW Std Deviation (36.4-46.3) fL RDW Coeff of Braeden (11.5-14.5) % Plt Count (130-400) K/uL MPV (7.4-10.4) fL Immature Gran % (Auto) % Neut % (Auto) % Lymph % (Auto) % Riley % (Auto) % Eos % (Auto) % Baso % (Auto) % Immature Gran # (Auto) (0.00-0.02) K/uL Neut # (Auto) (1.4-6.5) K/uL Lymph # (Auto) (1.2-3.4) K/uL Riley # (Auto) (0.11-0.59) K/uL Eos # (Auto) (0-0.5) K/uL Baso # (Auto) (0-0.2) K/uL PT (9.0-12.0) Seconds INR (0.9-1.1) POC Sodium 141 (135-144) mEq/L Sodium (136-145) mmol/L POC Potassium 3.5 (3.3-5.0) mEq/L Potassium (3.5-5.1) mmol/L POC Chloride 104 (101-112) mEq/L Chloride (98-107) mmol/L Carbon Dioxide (21-32) mmol/L POC Total CO2 22 L (24-31) mEq/l Anion Gap (3-11) POC Anion Gap 19.0 (16-25) mmol/L POC BUN 39 H (7-18) mg/dl BUN (7-18) mg/dl Creatinine (0.6-1.2) mg/dl POC Creatinine 1.5 H (0.6-1.3) mg/dl Est Cr Clr Drug Dosing ml/min Est GFR ( Amer) Est GFR (Non-Af Amer) BUN/Creatinine Ratio (10-20) Glucose (70-99) mg/dl POC Glucose (70-99) POC Glucose (other) 237 H (70-99) mg/dl POC Lactic Acid Uriah 1.50 (0.90-1.70) mmol/L Calcium (8.5-10.1) mg/dl POC Ioniz Calcium Beti 1.37 H (1.12-1.32) mmol/l Phosphorus (2.5-4.9) mg/dl Magnesium (1.8-2.4) mg/dl Total Bilirubin (0.2-1) mg/dl AST (15-37) U/L ALT (12-78) U/L Alkaline Phosphatase (45-117) U/L Troponin I (0-0.045) ng/ml NT-Pro-B Natriuret Pep (0-900) pg/ml Total Protein (6.4-8.2) gm/dl Albumin (3.4-5.0) gm/dl Globulin (2.5-4.0) gm/dl Albumin/Globulin Ratio (0.9-2) Procalcitonin (0-0.5) ng/ml TSH (0.300-4.500) uIu/ml Urine Color Yellow Urine Appearance Cloudy H (Clear) Urine pH 5.5 (4.5-7.5) Ur Specific [place] 1.033 H (1.000-1.030) Urine Protein 4+ H (Negative) Urine Glucose (UA) 2+ H (Negative) Urine Ketones Trace H (Negative) Urine Blood 3+ H (Negative) Urine Nitrite Negative (Negative) Urine Bilirubin Negative (Negative) Urine Urobilinogen Negative (Negative) Ur Leukocyte Esterase Negative (Negative) Urine WBC (Auto) 5-10 H (0-5) /hpf Urine RBC (Auto) 5-10 H (0-4) /hpf U Hyaline Cast (Auto) 1-5 (0-5) /lpf U Epithel Cells (Auto) >30 H (0-5) /lpf Urine Bacteria (Auto) Negative (Negative) Ur Renal Epithelial Cell Not Reportable Granular Casts 10-20 H (0) /lpf Influenza Type A Ag (Neg) Influenza Type B Ag (Neg) 06/30/18 06/30/18 Range/Units 18:38 19:50 WBC (4.8-10.8) K/uL RBC (4.2-5.4) M/uL Hgb (12.0-16.0) g/dL POC Hgb (12.0-16.0) g/dl Hct (37-47) % POC Hct (37-47) % MCV (80-100) fL MCH (25-34) pg MCHC (32-36) g/dL RDW Std Deviation (36.4-46.3) fL RDW Coeff of Braeden (11.5-14.5) % Plt Count (130-400) K/uL MPV (7.4-10.4) fL Immature Gran % (Auto) % Neut % (Auto) % Lymph % (Auto) % Riley % (Auto) % Eos % (Auto) % Baso % (Auto) % Immature Gran # (Auto) (0.00-0.02) K/uL Neut # (Auto) (1.4-6.5) K/uL Lymph # (Auto) (1.2-3.4) K/uL Riley # (Auto) (0.11-0.59) K/uL Eos # (Auto) (0-0.5) K/uL Baso # (Auto) (0-0.2) K/uL PT (9.0-12.0) Seconds INR (0.9-1.1) POC Sodium (135-144) mEq/L Sodium (136-145) mmol/L POC Potassium (3.3-5.0) mEq/L Potassium (3.5-5.1) mmol/L POC Chloride (101-112) mEq/L Chloride (98-107) mmol/L Carbon Dioxide (21-32) mmol/L POC Total CO2 (24-31) mEq/l Anion Gap (3-11) POC Anion Gap (16-25) mmol/L POC BUN (7-18) mg/dl BUN (7-18) mg/dl Creatinine (0.6-1.2) mg/dl POC Creatinine (0.6-1.3) mg/dl Est Cr Clr Drug Dosing ml/min Est GFR ( Amer) Est GFR (Non-Af Amer) BUN/Creatinine Ratio (10-20) Glucose (70-99) mg/dl POC Glucose 282 H (70-99) POC Glucose (other) (70-99) mg/dl POC Lactic Acid Uriah (0.90-1.70) mmol/L Calcium (8.5-10.1) mg/dl POC Ioniz Calcium Beti (1.12-1.32) mmol/l Phosphorus 3.8 (2.5-4.9) mg/dl Magnesium 1.7 L (1.8-2.4) mg/dl Total Bilirubin (0.2-1) mg/dl AST (15-37) U/L ALT (12-78) U/L Alkaline Phosphatase (45-117) U/L Troponin I 0.523 H* (0-0.045) ng/ml NT-Pro-B Natriuret Pep (0-900) pg/ml Total Protein (6.4-8.2) gm/dl Albumin (3.4-5.0) gm/dl Globulin (2.5-4.0) gm/dl Albumin/Globulin Ratio (0.9-2) Procalcitonin (0-0.5) ng/ml TSH 0.427 (0.300-4.500) uIu/ml Urine Color Urine Appearance (Clear) Urine pH (4.5-7.5) Ur Specific [place] (1.000-1.030) Urine Protein (Negative) Urine Glucose (UA) (Negative) Urine Ketones (Negative) Urine Blood (Negative) Urine Nitrite (Negative) Urine Bilirubin (Negative) Urine Urobilinogen (Negative) Ur Leukocyte Esterase (Negative) Urine WBC (Auto) (0-5) /hpf Urine RBC (Auto) (0-4) /hpf U Hyaline Cast (Auto) (0-5) /lpf U Epithel Cells (Auto) (0-5) /lpf Urine Bacteria (Auto) (Negative) Ur Renal Epithelial Cell Granular Casts (0) /lpf Influenza Type A Ag (Neg) Influenza Type B Ag (Neg) Administered Medications Carvedilol (Coreg) 25 mg PO BID [facility] Stop: 07/30/18 20:59 Last Admin: 06/30/18 19:37 Dose: 25 mg Documented by: [id number] Clopidogrel Bisulfate (Plavix) 75 mg PO DAILY [facility] Stop: 07/30/18 18:29 Last Admin: 06/30/18 19:37 Dose: 75 mg Documented by: [id number] Fluticasone Propionate (Flonase) 2 sprays NA QAM [facility] Stop: 07/30/18 18:59 Last Admin: 06/30/18 19:36 Dose: 2 sprays Documented by: [id number] Lisinopril/HCTZ (Prinzide 20/25mg) 1 tab PO DAILY [facility] Stop: 07/30/18 18:29 Last Admin: 06/30/18 19:37 Dose: 1 tab Documented by: [id number] Furosemide 40 mg/ Syringe 4 mls @ 4 mls/min IV [id number] [facility] Stop: 07/30/18 18:29 Last Admin: 06/30/18 19:31 Dose: 4 mls/min Documented by: [id number] Insulin Aspart (Novolog Flexpen) 0 units SC ACHS [facility] Stop: 07/30/18 18:29 Last Admin: 06/30/18 19:51 Dose: 9 units Documented by: [id number] Cosigned by: [id number] Lisinopril (Zestril) 20 mg PO DAILY [facility] Stop: 07/30/18 18:29 Last Admin: 06/30/18 19:36 Dose: 20 mg Documented by: [id number] Spironolactone (Aldactone) 25 mg PO DAILY [facility] Stop: 07/30/18 18:29 Last Admin: 06/30/18 19:38 Dose: 25 mg Documented by: [id number] Discontinued Medications Acetaminophen (Tylenol) 1,000 mg PO NOW STA Stop: 06/30/18 13:21 Last Admin: 06/30/18 14:30 Dose: 1,000 mg Documented by: [id number] Sodium Chloride (Nss 1000ml) 1,000 mls @ 999 mls/hr IV .Q1H1M [facility] Stop: 06/30/18 14:30 Last Infusion: 06/30/18 15:00 Dose: 0 mls/hr Documented by: [id number] Admin: 06/30/18 14:33 Dose: 999 mls/hr Documented by: [id number] Cefepime HCl 2,000 mg/ Syringe 20 mls @ 5.5 mls/min IV NOW STA Stop: 06/30/18 14:03 Last Admin: 06/30/18 14:30 Dose: 5.5 mls/min Documented by: [id number] Azithromycin 500 mg/ Dextrose 255 mls @ 127.5 mls/hr IV NOW STA Stop: 06/30/18 15:57 Last Infusion: 06/30/18 16:14 Dose: 0 mls/hr Documented by: [id number] Admin: 06/30/18 14:27 Dose: 127.5 mls/hr Documented by: [id number] Ondansetron HCl (Zofran) 4 mg IV NOW STA Stop: 06/30/18 13:21 Last Admin: 06/30/18 14:30 Dose: 4 mg Documented by: [id number] Discharge Plan Visit Data *Final* Discharge Date/Time: 06/30/18 17:39 Chief Complaint: Dehydration Stated Complaint: DEHYDRATED - DRY HEAVES - CAN'T EAT ED Provider: Rajesh Jacobson ED Midlevel Provider: Lula Butts Discharge Problem: CAP (community acquired pneumonia), Elevated troponin Patient Disposition: Admitted As Inpatient Discharge Instructions Interventions: ED Discharge Assessment Last Done: 06/30/18 17:39
[2018-06-30 13:41] LABS: INR 1.1 (0.9-1.1); Prothrombin Time 10.9 Seconds (9.0-12.0)
[2018-06-30 13:43] LABS: Albumin Level 2.6 gm/dl (3.4-5.0); BUN Creatinine Ratio 27.5 (10-20); Calcium 10.3 mg/dl (8.5-10.1); Creatinine Clr Calc Pharmacy 44.6 ml/min; Est GFR (African American) 38.7; Est GFR (Non-African American) 33.4; Potassium 3.5 mmol/L (3.5-5.1)
[2018-06-30 13:51] LABS: Albumin Globulin Ratio 0.6 (0.9-2); Bilirubin,Total 0.5 mg/dl (0.2-1); Globulin 4.6 gm/dl (2.5-4.0); Total Protein 7.2 gm/dl (6.4-8.2); Troponin I 0.688 ng/ml (0-0.045)
--- NOTE | 2018-06-30 13:51 | XRay Report ---
XR chest 1V portable CLINICAL HISTORY: cough, fever dyspnea COMPARISON STUDY: 09/25/2016 FINDINGS: Diffuse parenchymal infiltrative process of the right mid to lower lung region. Moderate ca rdiomegaly. Left lung is clear. IMPRESSION: Diffuse right hemithoracic infiltrate. Follow-up to complete resolution is suggested. The above report was generated using voice recognition software. It may contain grammatical, syntax or spelling errors. Electronically signed by: Colton Oseguera M.D. 06/30/2018 1:49 PM
[2018-06-30 13:58] LABS: iSTAT Creatinine 1.5 mg/dl (0.6-1.3); iSTAT Hemoglobin 12.6 g/dl (12.0-16.0); iSTAT Ionized Calcium 1.37 mmol/l (1.12-1.32); iSTAT Potassium 3.5 mEq/L (3.3-5.0)
[2018-06-30] MEDS ORDERED: AZITHROMYCIN 500 MG in DEXTROSE 5% 250 ML IV STA (13:58)
[2018-06-30] MEDS ORDERED: CEFEPIME 2,000 MG in SYRINGE 7.5 ML IV STA (14:00)
--- NOTE | 2018-06-30 16:35 | Emergency Department Note ---
ED Visit Note I have personally evaluated this patient examined her and reviewed the pertinent labs and data. I have discussed the case with Lula Butts, the nurse practitioner and agree with the plan. Please refer to the [facility] [employer] note. This patient comes in with nausea vomiting diarrhea she is also had a cough and a fever. Her chest x-ray shows an infiltrate/pneumonia. She also was found to have an elevated troponin 0.66. she denies any chest pain except for when coughing. her EKG has no acute ST segment elevation there may be some subtle depressions although she does have some LVH. She was hydrated with IV normal saline. On my exam, she is actually on the hypertensive side and mildly tachycardic she appears in no respiratory distress. She has a history of diabetes but does not appear to be in DKA we give her broad-spectrum antibiotics and culture her. I do think she needs to be admitted for further inpatient treatment and evaluation.
[2018-06-30] MEDS ORDERED: CLOBETASOL PROPIONATE 0.05% OINT 15 GM TUBE EXT PRN (18:00)
[2018-06-30 18:04] LABS: Appearance Urine Cloudy (Clear); Bacteria Urine Automated Negative (Negative); Bilirubin Urine Negative (Negative); Blood Urine 3+ (Negative); Color Urine Yellow; Epithelial Cell Urine Auto >30 /lpf (0-5); Glucose Urine UA 2+ (Negative); Ketones Urine Trace (Negative); Leukocyte Esterase Urine Negative (Negative); Nitrite Urine Negative (Negative); Protein Urine 4+ (Negative); Specific Gravity Urine 1.033 (1.000-1.030); Urobilinogen Urine Negative (Negative); pH Urine 5.5 (4.5-7.5)
[2018-06-30] MEDS ORDERED: SODIUM CHLORIDE 0.65% NA SOLN 45 ML (OCEAN) PRN (18:06)
[2018-06-30] MEDS ORDERED: GLUCAGON FOR INJ 1 MG VIAL SQ PRN (18:06)
[2018-06-30] MEDS ORDERED: BENZONATATE 100 MG CAPSULE PO PRN (18:06)
[2018-06-30] MEDS ORDERED: ONDANSETRON INJ 2 MG/ML 2 ML VIAL IV PRN (18:06)
[2018-06-30] MEDS ORDERED: GLUCOSE 10 TABS/TUBE PO PRN (18:06)
[2018-06-30] MEDS ORDERED: GLUCOSE 40% GEL 15 GM TUBE PO PRN (18:06)
[2018-06-30] MEDS ORDERED: DEXTROSE 50% 50 ML SYRINGE IV PRN (18:06)
[2018-06-30] MEDS ORDERED: FUROSEMIDE 40 MG in SYRINGE 0 ML IV SCH (18:30)
[2018-06-30] MEDS ORDERED: cefTRIAXone SODIUM 1,000 MG in DEXTROSE 5% 50 ML IV SCH (19:00)
[2018-06-30 19:27] LABS: Magnesium 1.7 mg/dl (1.8-2.4); Phosphorus 3.8 mg/dl (2.5-4.9)
[2018-06-30 19:28] LABS: Troponin I 0.523 ng/ml (0-0.045)
[2018-06-30] MEDS: LISINOPRIL 20 MG TAB PO SCH (19:36)
[2018-06-30] MEDS: FLUTICASONE PROPIONATE NA SPR 16 GM BTL SCH (19:36)
[2018-06-30] MEDS: CARVEDILOL 25 MG TAB PO SCH (19:37)
[2018-06-30] MEDS: LISINOPRIL/HCTZ 20/25MG 1 TAB PO SCH (19:37)
[2018-06-30] MEDS: CLOPIDOGREL BISULFATE 75 MG TAB PO SCH (19:37)
[2018-06-30] MEDS: ATORVASTATIN 40 MG TAB PO SCH (19:37)
[2018-06-30] MEDS: SPIRONOLACTONE 25 MG TAB PO SCH (19:38)
[2018-06-30] MEDS: INSULIN ASPART 100 UNITS/ML 3 ML PEN SC SCH ×2 (19:51→23:50)
--- NOTE | 2018-06-30 20:28 | CT Scan Report ---
CT OF THE CHEST WITHOUT IV CONTRAST CLINICAL HISTORY: PNA, hemoptysis COMPARISON STUDY: Chest radiographs September 25, 2016 and June 30, 2018. CT DOSE: 894.01 mGy.cm TECHNIQUE: Axial images of the chest were obtained without IV contrast. Images were reviewed in the axial, sagittal, and coronal planes. IV contrast was not administered for this examination. Automat ed exposure control was utilized for the study. A dose lowering technique was utilized adhering to t he principles of ALARA. FINDINGS: No enlarged axillary, mediastinal or hilar lymph nodes are present. The heart is mildly en larged. There is no pericardial effusion. There is moderate coronary artery calcification. Central ai rways are patent. The lungs are suboptimally assessed due to respiratory motion. There is dense conso lidation within the right lower lobe and right middle lobe with moderate consolidation within the rig ht upper lobe. There are scattered airspace opacities within the left upper lobe and mild consolidati on within the left lower lobe. There is no cavitation. There is no pneumothorax or pleural effusion. No central obstructing mass is present. Bony thorax is unremarkable. Suspected gallstone within the g allbladder is partially imaged. There is pancreatic glandular atrophy. IMPRESSION: 1. Extensive bilateral airspace opacities, greater within the right lung. No cavitation. No pleural e ffusion. No central obstructing mass. The findings favor severe multifocal pneumonia. Asymmetric pulm onary edema or hemorrhage could appear similar but are considered much less likely. Radiographic foll ow-up to ensure resolution is recommended. 2. Mild cardiomegaly. Moderate coronary artery calcification. 3. Cholelithiasis. Electronically signed by: Jonathan An M.D. 06/30/2018 8:26 PM
--- NOTE | 2018-06-30 20:38 | Ultrasound Report ---
LEFT LOWER EXTREMITY VENOUS DOPPLER CLINICAL HISTORY: Left lower extremity edema. COMPARISON STUDY: No previous studies for comparison. TECHNIQUE: Sonography of the deep venous system of the left lower extremity was performed. Compressi on and augmentation were evaluated. FINDINGS: The left common femoral, superficial femoral and popliteal veins were compressible. Augmen tation was normal. Flow was shown within the deep calf vessels. IMPRESSION: No evidence of deep venous thrombus within the left lower extremity. Electronically signed by: Jonathan An M.D. 06/30/2018 8:36 PM
[2018-06-30] MEDS: INSULIN GLARGINE SOLOSTAR 100 UNITS/ML 3 ML PEN SC SCH (21:33)
[2018-06-30] MEDS ORDERED: guaiFENesin SUGAR FREE 100 MG/5 ML UDC PO PRN (22:24)
[2018-06-30] MEDS ORDERED: HydrALAZINE HCL 20 MG/ML VIAL IV PRN (22:30)
--- NOTE | 2018-06-30 22:38 | History & Physical Report ---
Date of Service June 30, 2018 Assessment & Plan (1) CAP (community acquired pneumonia): Patient with recent URI symptoms presenting with mild neutrophil predominant leukocytosis, tachycardia/tachypnea/hypoxia on arrival with 85% on room air. [place] [address]. Troponin mildly elevated at 0.523. CXR and CT with bilateral airspace disease, R > L concerning for multifocal PNA vs CHF vs DAH. Patient with difficult clinical picture as she has history of severe CHF and has recently discontinued her medications, she has recent URI symptoms and complains of hemoptysis as well. -Will check sputum gram stain and culture -Follow blood culture results -Azithromycin and Ceftriaxone for possible CAP -Robitussin PRN -Flonase -Nasal saline -IS q 2 hours while awake -Supplemental O2 as needed - humidify -Consider pulmonary consult (2) CHF (congestive heart failure): Patient with history of severe CHF thought to be secondary to medication effects of Avandia. She had significant recovery of her EF wtih medications, last was 50%. She has recently discontinued her medications for unknown reasons -Resume CHF medications. -Patient received Lasix 40mg IV x one dose at 19:31. Will hold off on additional IV diuretics for now and continue with her home medications -Daily weights -Strict I/Os -Monitor electrolytes, BUN, Cr and UOP -Check 2D echocardiogram (3) Elevated troponin: Patient with no CP. Mild TWI on EKG -Trend cardiac enzymes -Resume home medications - Atorvastatin, Carvedilol, Plavix, Lisinopril, HCTZ, Spironolactone (4) Diabetes: Blood sugar 216 -Lantus 10u BID -ISS (5) Hypertension: Blood pressure elevated at present. -Resume home medications, Aldactone, Lisinopril, HCTZ, Carvedilol -Hydralazine PRN F/E/N - Gentle diuresis. Monitor electrolytes and replete as needed. Patient with hypercalcemia, Ca=10.3. Ical=1.37. Has elevated PTH in the past as well. Consider further workup on outpatient basis, CC/low Na diet as tolerated Ppx - SCDs Code - DNR per discussion with patient Dispo - 422-1 History of Present Illness Chief Complaint: SOB Primary Care Provider: Jesse Moser MD Patient is a 62yo female with history of DM, HTN, Lyme disease s/p appropriate therapy with Doxycycline, CHF thought to be secondary to Avandia with EF of 15% which subsequently recovered to 50%. Patient states that she has had a sinus infection for 4 months. No antibiotics given. On Wednesday she coughed up some bloody mucus and subsequently had a bloody nose. Patient saw Dr. Montes on Wednesday and was prescribed Amoxicillin. She reports occasional hemoptysis with streaks of blood over the last 4 months during her sinus infection. She reports chest congestion, sore throat, dizziness and presyncope over the last 4 months as well. Increase in SOB/HUBBARD, hot and cold intolerance, 7# weight gain over the last 7 months, decreased exercise tolerance. Patient has not taken her medications for the last week due to nausea. ER Course: Tylenol, Azithromycin, Cefepime, Zofran, NSS Allergies Allergy/AdvReac Type Severity Reaction Status Date / Time dulaglutide [From [facility]] Allergy Hives Unverified 06/30/18 13:27 erythromycin base AdvReac Intermediate VOMITTING Unverified 06/30/18 13:27 Home Medications Home Medications Medication Instructions Recorded Confirmed Type amoxicillin 500 mg PO QID 06/30/18 06/30/18 History atorvastatin 80 mg PO DAILY 06/30/18 06/30/18 History carvedilol [Coreg] 25 mg PO BID 06/30/18 06/30/18 History clobetasol 1 applic TOPICAL DIRECTED PRN 06/30/18 06/30/18 History clopidogrel [Plavix] 75 mg PO DAILY 06/30/18 06/30/18 History fluticasone propionate [Flonase 2 spray INTRANASAL QAM 06/30/18 06/30/18 History Allergy Relief] lisinopril 20 mg PO DAILY 06/30/18 06/30/18 History lisinopril-hydrochlorothiazide 1 tab PO DAILY 06/30/18 06/30/18 History spironolactone 25 mg PO DAILY 06/30/18 06/30/18 History Past Med/Surg History Medical History CHF (congestive heart failure) Diabetes Hypertension Surgical History S/P cardiac catheterization Family History Other Coronary heart disease Social History Preferred Language: Moldovan Communication Ability: Effective Corporate Travel Counselor Required: No Beliefs That Will Affect Care: None Current Living Situation: Spouse Other Information That Helps Us Care for You: No Feels Safe at Home: Yes Safety Concerns: Feels Safe At This Time Smoking Status: Never smoker Hx Alcohol Use: Yes Hx Substance Use: No Review of Systems All systems reviewed & are unremarkable except as noted in HPI & below Physical Exam Vital Signs (Past 24 Hours): Last Vital Signs Temp 37.3 C 06/30/18 19:23 Pulse 95 H 06/30/18 19:23 Resp 24 06/30/18 17:00 BP 188/76 H 06/30/18 19:23 Pulse Ox 90 06/30/18 19:23 Physical Exam: General: patient resting comfortably, NAD, non-toxic in appearance, AA&O x 4 Skin: warm, dry, intact, no rashes or lesions HEENT: NC/AT, PERRL, EOMI, anicteric sclera, conjunctiva without injection, external ear normal to inspection and nontender, nares patent, moist mucus membranes, dentition intact, no oropharyngeal lesions, neck supple, trachea midline, no LAD, no thyromegaly, no JVD Heart: +S1/S2, regular, DIONICIO Lungs: equal air entry bilaterally, diffuse crackles bilaterally, R > L, scattered wheezing Abd: +BS, soft, NT/ND, no masses/organomegaly/ascites Ext: warm, 2+ pulses in UE/LE bilaterally, no clubbing/cyanosis, edema of LLE > RLE Neuro: nonfocal, patient AA&O x 4, speech intact, no facial droop, moving all extremities on command with equal strength 5/5 Results & Data Laboratory Results Lab Results 06/30/18 06/30/18 06/30/18 Range/Units 13:00 13:00 13:00 WBC 11.73 H (4.8-10.8) K/uL RBC 4.58 (4.2-5.4) M/uL Hgb 12.8 (12.0-16.0) g/dL POC Hgb (12.0-16.0) g/dl Hct 38.0 (37-47) % POC Hct (37-47) % MCV 83.0 (80-100) fL MCH 27.9 (25-34) pg MCHC 33.7 (32-36) g/dL RDW Std Deviation 44.8 (36.4-46.3) fL RDW Coeff of Braeden 14.6 H (11.5-14.5) % Plt Count 165 (130-400) K/uL MPV 10.0 (7.4-10.4) fL Immature Gran % (Auto) 0.2 % Neut % (Auto) 90.6 % Lymph % (Auto) 4.9 % [place] % (Auto) 4.0 % Eos % (Auto) 0.0 % Baso % (Auto) 0.3 % Immature Gran # (Auto) 0.02 (0.00-0.02) K/uL Neut # (Auto) 10.63 H (1.4-6.5) K/uL Lymph # (Auto) 0.57 L (1.2-3.4) K/uL [place] # (Auto) 0.47 (0.11-0.59) K/uL Eos # (Auto) 0.00 (0-0.5) K/uL Baso # (Auto) 0.04 (0-0.2) K/uL PT 10.9 (9.0-12.0) Seconds INR 1.1 (0.9-1.1) POC Sodium (135-144) mEq/L Sodium 139 (136-145) mmol/L POC Potassium (3.3-5.0) mEq/L Potassium 3.5 (3.5-5.1) mmol/L POC Chloride (101-112) mEq/L Chloride 108 H (98-107) mmol/L Carbon Dioxide 24 (21-32) mmol/L POC Total CO2 (24-31) mEq/l Anion Gap 8.0 (3-11) POC Anion Gap (16-25) mmol/L POC BUN (7-18) mg/dl BUN 45 H (7-18) mg/dl Creatinine 1.63 H (0.6-1.2) mg/dl POC Creatinine (0.6-1.3) mg/dl Est Cr Clr Drug Dosing 44.6 ml/min Est GFR ( Amer) 38.7 Est GFR (Non-Af Amer) 33.4 BUN/Creatinine Ratio 27.5 H (10-20) Glucose 216 H (70-99) mg/dl POC Glucose (70-99) POC Glucose (other) (70-99) mg/dl POC Lactic Acid Uriah (0.90-1.70) mmol/L Calcium 10.3 H (8.5-10.1) mg/dl POC Ioniz Calcium Beti (1.12-1.32) mmol/l Phosphorus (2.5-4.9) mg/dl Magnesium (1.8-2.4) mg/dl Total Bilirubin 0.5 (0.2-1) mg/dl AST 43 H (15-37) U/L ALT 27 (12-78) U/L Alkaline Phosphatase 72 (45-117) U/L Troponin I 0.688 H* (0-0.045) ng/ml NT-Pro-B Natriuret Pep (0-900) pg/ml Total Protein 7.2 (6.4-8.2) gm/dl Albumin 2.6 L (3.4-5.0) gm/dl Globulin 4.6 H (2.5-4.0) gm/dl Albumin/Globulin Ratio 0.6 L (0.9-2) Procalcitonin (0-0.5) ng/ml TSH (0.300-4.500) uIu/ml Urine Color Urine Appearance (Clear) Urine pH (4.5-7.5) Ur Specific [place] (1.000-1.030) Urine Protein (Negative) Urine Glucose (UA) (Negative) Urine Ketones (Negative) Urine Blood (Negative) Urine Nitrite (Negative) Urine Bilirubin (Negative) Urine Urobilinogen (Negative) Ur Leukocyte Esterase (Negative) Urine WBC (Auto) (0-5) /hpf Urine RBC (Auto) (0-4) /hpf U Hyaline Cast (Auto) (0-5) /lpf U Epithel Cells (Auto) (0-5) /lpf Urine Bacteria (Auto) (Negative) Ur Renal Epithelial Cell Granular Casts (0) /lpf Influenza Type A Ag (Neg) Influenza Type B Ag (Neg) 06/30/18 06/30/18 06/30/18 Range/Units 13:00 13:00 13:00 WBC (4.8-10.8) K/uL RBC (4.2-5.4) M/uL Hgb (12.0-16.0) g/dL POC Hgb (12.0-16.0) g/dl Hct (37-47) % POC Hct (37-47) % MCV (80-100) fL MCH (25-34) pg MCHC (32-36) g/dL RDW Std Deviation (36.4-46.3) fL RDW Coeff of Braeden (11.5-14.5) % Plt Count (130-400) K/uL MPV (7.4-10.4) fL Immature Gran % (Auto) % Neut % (Auto) % Lymph % (Auto) % [place] % (Auto) % Eos % (Auto) % Baso % (Auto) % Immature Gran # (Auto) (0.00-0.02) K/uL Neut # (Auto) (1.4-6.5) K/uL Lymph # (Auto) (1.2-3.4) K/uL [place] # (Auto) (0.11-0.59) K/uL Eos # (Auto) (0-0.5) K/uL Baso # (Auto) (0-0.2) K/uL PT (9.0-12.0) Seconds INR (0.9-1.1) POC Sodium (135-144) mEq/L Sodium (136-145) mmol/L POC Potassium (3.3-5.0) mEq/L Potassium (3.5-5.1) mmol/L POC Chloride (101-112) mEq/L Chloride (98-107) mmol/L Carbon Dioxide (21-32) mmol/L POC Total CO2 (24-31) mEq/l Anion Gap (3-11) POC Anion Gap (16-25) mmol/L POC BUN (7-18) mg/dl BUN (7-18) mg/dl Creatinine (0.6-1.2) mg/dl POC Creatinine (0.6-1.3) mg/dl Est Cr Clr Drug Dosing ml/min Est GFR ( Amer) Est GFR (Non-Af Amer) BUN/Creatinine Ratio (10-20) Glucose (70-99) mg/dl POC Glucose (70-99) POC Glucose (other) (70-99) mg/dl POC Lactic Acid Uriah (0.90-1.70) mmol/L Calcium (8.5-10.1) mg/dl POC Ioniz Calcium Beti (1.12-1.32) mmol/l Phosphorus (2.5-4.9) mg/dl Magnesium (1.8-2.4) mg/dl Total Bilirubin (0.2-1) mg/dl AST (15-37) U/L ALT (12-78) U/L Alkaline Phosphatase (45-117) U/L Troponin I (0-0.045) ng/ml NT-Pro-B Natriuret Pep 82904 H (0-900) pg/ml Total Protein (6.4-8.2) gm/dl Albumin (3.4-5.0) gm/dl Globulin (2.5-4.0) gm/dl Albumin/Globulin Ratio (0.9-2) Procalcitonin 0.39 (0-0.5) ng/ml TSH (0.300-4.500) uIu/ml Urine Color Urine Appearance (Clear) Urine pH (4.5-7.5) Ur Specific [place] (1.000-1.030) Urine Protein (Negative) Urine Glucose (UA) (Negative) Urine Ketones (Negative) Urine Blood (Negative) Urine Nitrite (Negative) Urine Bilirubin (Negative) Urine Urobilinogen (Negative) Ur Leukocyte Esterase (Negative) Urine WBC (Auto) (0-5) /hpf Urine RBC (Auto) (0-4) /hpf U Hyaline Cast (Auto) (0-5) /lpf U Epithel Cells (Auto) (0-5) /lpf Urine Bacteria (Auto) (Negative) Ur Renal Epithelial Cell Granular Casts (0) /lpf Influenza Type A Ag Neg for Influ A (Neg) Influenza Type B Ag Neg for Influ B (Neg) 06/30/18 06/30/18 06/30/18 Range/Units 13:40 13:44 17:50 WBC (4.8-10.8) K/uL RBC (4.2-5.4) M/uL Hgb (12.0-16.0) g/dL POC Hgb 12.6 (12.0-16.0) g/dl Hct (37-47) % POC Hct 37 (37-47) % MCV (80-100) fL MCH (25-34) pg MCHC (32-36) g/dL RDW Std Deviation (36.4-46.3) fL RDW Coeff of Braeden (11.5-14.5) % Plt Count (130-400) K/uL MPV (7.4-10.4) fL Immature Gran % (Auto) % Neut % (Auto) % Lymph % (Auto) % [place] % (Auto) % Eos % (Auto) % Baso % (Auto) % Immature Gran # (Auto) (0.00-0.02) K/uL Neut # (Auto) (1.4-6.5) K/uL Lymph # (Auto) (1.2-3.4) K/uL [place] # (Auto) (0.11-0.59) K/uL Eos # (Auto) (0-0.5) K/uL Baso # (Auto) (0-0.2) K/uL PT (9.0-12.0) Seconds INR (0.9-1.1) POC Sodium 141 (135-144) mEq/L Sodium (136-145) mmol/L POC Potassium 3.5 (3.3-5.0) mEq/L Potassium (3.5-5.1) mmol/L POC Chloride 104 (101-112) mEq/L Chloride (98-107) mmol/L Carbon Dioxide (21-32) mmol/L POC Total CO2 22 L (24-31) mEq/l Anion Gap (3-11) POC Anion Gap 19.0 (16-25) mmol/L POC BUN 39 H (7-18) mg/dl BUN (7-18) mg/dl Creatinine (0.6-1.2) mg/dl POC Creatinine 1.5 H (0.6-1.3) mg/dl Est Cr Clr Drug Dosing ml/min Est GFR ( Amer) Est GFR (Non-Af Amer) BUN/Creatinine Ratio (10-20) Glucose (70-99) mg/dl POC Glucose (70-99) POC Glucose (other) 237 H (70-99) mg/dl POC Lactic Acid Uriah 1.50 (0.90-1.70) mmol/L Calcium (8.5-10.1) mg/dl POC Ioniz Calcium Beti 1.37 H (1.12-1.32) mmol/l Phosphorus (2.5-4.9) mg/dl Magnesium (1.8-2.4) mg/dl Total Bilirubin (0.2-1) mg/dl AST (15-37) U/L ALT (12-78) U/L Alkaline Phosphatase (45-117) U/L Troponin I (0-0.045) ng/ml NT-Pro-B Natriuret Pep (0-900) pg/ml Total Protein (6.4-8.2) gm/dl Albumin (3.4-5.0) gm/dl Globulin (2.5-4.0) gm/dl Albumin/Globulin Ratio (0.9-2) Procalcitonin (0-0.5) ng/ml TSH (0.300-4.500) uIu/ml Urine Color Yellow Urine Appearance Cloudy H (Clear) Urine pH 5.5 (4.5-7.5) Ur Specific [place] 1.033 H (1.000-1.030) Urine Protein 4+ H (Negative) Urine Glucose (UA) 2+ H (Negative) Urine Ketones Trace H (Negative) Urine Blood 3+ H (Negative) Urine Nitrite Negative (Negative) Urine Bilirubin Negative (Negative) Urine Urobilinogen Negative (Negative) Ur Leukocyte Esterase Negative (Negative) Urine WBC (Auto) 5-10 H (0-5) /hpf Urine RBC (Auto) 5-10 H (0-4) /hpf U Hyaline Cast (Auto) 1-5 (0-5) /lpf U Epithel Cells (Auto) >30 H (0-5) /lpf Urine Bacteria (Auto) Negative (Negative) Ur Renal Epithelial Cell Not Reportable Granular Casts 10-20 H (0) /lpf Influenza Type A Ag (Neg) Influenza Type B Ag (Neg) 06/30/18 06/30/18 Range/Units 18:38 19:50 WBC (4.8-10.8) K/uL RBC (4.2-5.4) M/uL Hgb (12.0-16.0) g/dL POC Hgb (12.0-16.0) g/dl Hct (37-47) % POC Hct (37-47) % MCV (80-100) fL MCH (25-34) pg MCHC (32-36) g/dL RDW Std Deviation (36.4-46.3) fL RDW Coeff of Braeden (11.5-14.5) % Plt Count (130-400) K/uL MPV (7.4-10.4) fL Immature Gran % (Auto) % Neut % (Auto) % Lymph % (Auto) % [place] % (Auto) % Eos % (Auto) % Baso % (Auto) % Immature Gran # (Auto) (0.00-0.02) K/uL Neut # (Auto) (1.4-6.5) K/uL Lymph # (Auto) (1.2-3.4) K/uL [place] # (Auto) (0.11-0.59) K/uL Eos # (Auto) (0-0.5) K/uL Baso # (Auto) (0-0.2) K/uL PT (9.0-12.0) Seconds INR (0.9-1.1) POC Sodium (135-144) mEq/L Sodium (136-145) mmol/L POC Potassium (3.3-5.0) mEq/L Potassium (3.5-5.1) mmol/L POC Chloride (101-112) mEq/L Chloride (98-107) mmol/L Carbon Dioxide (21-32) mmol/L POC Total CO2 (24-31) mEq/l Anion Gap (3-11) POC Anion Gap (16-25) mmol/L POC BUN (7-18) mg/dl BUN (7-18) mg/dl Creatinine (0.6-1.2) mg/dl POC Creatinine (0.6-1.3) mg/dl Est Cr Clr Drug Dosing ml/min Est GFR ( Amer) Est GFR (Non-Af Amer) BUN/Creatinine Ratio (10-20) Glucose (70-99) mg/dl POC Glucose 282 H (70-99) POC Glucose (other) (70-99) mg/dl POC Lactic Acid Uriah (0.90-1.70) mmol/L Calcium (8.5-10.1) mg/dl POC Ioniz Calcium Beti (1.12-1.32) mmol/l Phosphorus 3.8 (2.5-4.9) mg/dl Magnesium 1.7 L (1.8-2.4) mg/dl Total Bilirubin (0.2-1) mg/dl AST (15-37) U/L ALT (12-78) U/L Alkaline Phosphatase (45-117) U/L Troponin I 0.523 H* (0-0.045) ng/ml NT-Pro-B Natriuret Pep (0-900) pg/ml Total Protein (6.4-8.2) gm/dl Albumin (3.4-5.0) gm/dl Globulin (2.5-4.0) gm/dl Albumin/Globulin Ratio (0.9-2) Procalcitonin (0-0.5) ng/ml TSH 0.427 (0.300-4.500) uIu/ml Urine Color Urine Appearance (Clear) Urine pH (4.5-7.5) Ur Specific [place] (1.000-1.030) Urine Protein (Negative) Urine Glucose (UA) (Negative) Urine Ketones (Negative) Urine Blood (Negative) Urine Nitrite (Negative) Urine Bilirubin (Negative) Urine Urobilinogen (Negative) Ur Leukocyte Esterase (Negative) Urine WBC (Auto) (0-5) /hpf Urine RBC (Auto) (0-4) /hpf U Hyaline Cast (Auto) (0-5) /lpf U Epithel Cells (Auto) (0-5) /lpf Urine Bacteria (Auto) (Negative) Ur Renal Epithelial Cell Granular Casts (0) /lpf Influenza Type A Ag (Neg) Influenza Type B Ag (Neg) Diagnostic Findings XR chest 1V portable CLINICAL HISTORY: cough, fever dyspnea COMPARISON STUDY: 09/25/2016 FINDINGS: Diffuse parenchymal infiltrative process of the right mid to lower lung region. Moderate cardiomegaly. Left lung is clear. IMPRESSION: Diffuse right hemithoracic infiltrate. Follow-up to complete resolution is suggested. The above report was generated using voice recognition software. It may contain grammatical, syntax or spelling errors. Electronically signed by: Colton Oseguera M.D. 06/30/2018 1:49 PM Dictated: 06/30/18 1349 Transcribed: 06/30/[address] OF THE CHEST WITHOUT IV CONTRAST CLINICAL HISTORY: PNA, hemoptysis COMPARISON STUDY: Chest radiographs September 25, 2016 and June 30, 2018. CT DOSE: 894.01 mGy.cm TECHNIQUE: Axial images of the chest were obtained without IV contrast. Images were reviewed in the axial, sagittal, and coronal planes. IV contrast was not administered for this examination. Automated exposure control was utilized for the study. A dose lowering technique was utilized adhering to the principles of ALARA. FINDINGS: No enlarged axillary, mediastinal or hilar lymph nodes are present. The heart is mildly enlarged. There is no pericardial effusion. There is moderate coronary artery calcification. Central airways are patent. The lungs are suboptimally assessed due to respiratory motion. There is dense consolidation within the right lower lobe and right middle lobe with moderate consolidation within the right upper lobe. There are scattered airspace opacities within the left upper lobe and mild consolidation within the left lower lobe. There is no cavitation. There is no pneumothorax or pleural effusion. No central obstructing mass is present. Bony thorax is unremarkable. Suspected gallstone within the gallbladder is partially imaged. There is pancreatic glandular atrophy. IMPRESSION: 1. Extensive bilateral airspace opacities, greater within the right lung. No cavitation. No pleural effusion. No central obstructing mass. The findings favor severe multifocal pneumonia. Asymmetric pulmonary edema or hemorrhage could appear similar but are considered much less likely. Radiographic follow-up to ensure resolution is recommended. 2. Mild cardiomegaly. Moderate coronary artery calcification. 3. Cholelithiasis. Electronically signed by: Jonathan An M.D. 06/30/2018 8:26 PM LEFT LOWER EXTREMITY VENOUS DOPPLER CLINICAL HISTORY: Left lower extremity edema. COMPARISON STUDY: No previous studies for comparison. TECHNIQUE: Sonography of the deep venous system of the left lower extremity was performed. Compression and augmentation were evaluated. FINDINGS: The left common femoral, superficial femoral and popliteal veins were compressible. Augmentation was normal. Flow was shown within the deep calf vessels. IMPRESSION: No evidence of deep venous thrombus within the left lower extremity. Electronically signed by: Jonathan An M.D. 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
[2018-06-30] MEDS: ACETAMINOPHEN 325 MG TAB PO PRN (23:05)
[2018-06-30 23:34] LABS: Appearance Urine Cloudy (Clear); Bacteria Urine Automated Negative (Negative); Bilirubin Urine Negative (Negative); Blood Urine 3+ (Negative); Color Urine Yellow; Epithelial Cell Urine Auto >30 /lpf (0-5); Glucose Urine UA 2+ (Negative); Ketones Urine Negative (Negative); Leukocyte Esterase Urine Negative (Negative); Nitrite Urine Negative (Negative); Protein Urine 4+ (Negative); RBC Urine Automated >30 /hpf (0-4); Specific Gravity Urine 1.023 (1.000-1.030); Urobilinogen Urine Negative (Negative)
[2018-06-30 23:58] LABS: Creatinine Urine Random 67.1 mg/dl
[2018-06-30 23:59] LABS: Total Protein Urine Random 743.1 mg/dl (0-11.9)
[2018-07-01] MEDS ORDERED: METOPROLOL TARTRATE 1 MG/ML VIAL IV STA (00:21)
[2018-07-01] MEDS: ACETAMINOPHEN 325 MG TAB PO PRN (03:42)
[2018-07-01 07:01] LABS: Hematocrit (blood only) 34.9 % (37-47); Hemoglobin 11.5 g/dL (12.0-16.0); Mean Corpuscular Volume 84.3 fL (80-100); Mean Platelet Volume 10.2 fL (7.4-10.4); Platelet Count 120 K/uL (130-400); RDW Coefficient of Variation 14.6 % (11.5-14.5); RDW Standard Deviation 45.6 fL (36.4-46.3); Red Blood Count 4.14 M/uL (4.2-5.4)
[2018-07-01 07:28] LABS: Basophils # (auto) 0.02 K/uL (0-0.2); Basophils % (auto) 0.2 %; Immature Granulocytes # (auto) 0.04 K/uL (0.00-0.02); Immature Granulocytes % (auto) 0.4 %; Lymphocytes # (auto) 0.62 K/uL (1.2-3.4); Monocytes # (auto) 0.49 K/uL (0.11-0.59); Monocytes % (auto) 4.8 %; Neutrophils # (auto) 9.13 K/uL (1.4-6.5); Neutrophils % (auto) 88.6 %
[2018-07-01 07:33] LABS: BUN Creatinine Ratio 26.4 (10-20); Calcium 9.1 mg/dl (8.5-10.1); Est GFR (African American) 32.6; Est GFR (Non-African American) 28.1; Potassium 3.6 mmol/L (3.5-5.1)
[2018-07-01 07:42] LABS: Troponin I 0.499 ng/ml (0-0.045)
[2018-07-01] MEDS ORDERED: HydrALAZINE HCL 20 MG/ML VIAL IV STA (08:12)
[2018-07-01] MEDS: CARVEDILOL 25 MG TAB PO SCH ×2 (08:14→22:17)
--- NOTE | 2018-07-01 08:41 | XRay Report ---
XR chest 1V portable CLINICAL HISTORY: Shortness of breath COMPARISON STUDY: 06/30/2018 FINDINGS: The heart remains mildly enlarged. There are progressive bilateral pulmonary airspace opaci ties right greater than left. Diagnostic considerations remain multifocal pneumonia versus asymmetric pulmonary edema. Clinical and radiographic follow-up is recommended.[ IMPRESSION: Slight progression in the bilateral asymmetric right greater than left pulmonary airspace opacities. Electronically signed by: Jordan Armando M.D. 07/01/2018 8:40 AM
[2018-07-01] MEDS: INSULIN ASPART 100 UNITS/ML 3 ML PEN SC SCH ×4 (08:49→23:44)
[2018-07-01] MEDS ORDERED: PIPERACILL/TAZOBAC CONSULT ACTIVE PRN (08:49)
[2018-07-01] MEDS ORDERED: PIPERACILLIN/TAZOBACTAM 3.375 GM/115 ML BAG IV STA (08:49)
[2018-07-01] MEDS: INSULIN GLARGINE SOLOSTAR 100 UNITS/ML 3 ML PEN SC SCH (08:49)
[2018-07-01 09:00] LABS: HCO3 ABG 24 mmol/L (19-24); PCO2 ABG 39 mmHg (35-46); PO2 ABG 84 mm/Hg (80-95); pH ABG 7.41 (7.35-7.45)
[2018-07-01] MEDS ORDERED: AZITHROMYCIN 250 MG in DEXTROSE 5% 250 ML IV SCH (09:00)
[2018-07-01 09:01] LABS: Allen Test Pos (Pos)
[2018-07-01] MEDS ORDERED: PIPERACILLIN/TAZOBACTAM 4.5 GM in DEXTROSE 5% 100 ML IV ONE (09:30)
[2018-07-01] MEDS: ALBUT/IPRATROP 3MG/0.5MG NEB 3 ML VIAL NEB SCH ×3 (10:59→22:53)
[2018-07-01] MEDS: AZITHROMYCIN 250 MG in DEXTROSE 5% 250 ML IV SCH (11:00)
[2018-07-01] MEDS ORDERED: HydrALAZINE HCL 20 MG/ML VIAL IV PRN ×2 (12:01→12:21)
[2018-07-01] MEDS ORDERED: LABETALOL HCL IV 5 MG/ML 20ML IV STA (12:02)
[2018-07-01] MEDS ORDERED: PHARMACY GLYCEMIC MGMT CONSULT PRN (12:06)
[2018-07-01] MEDS: ACETAMINOPHEN 1,000 MG/100 ML VIAL IV PRN (12:30)
[2018-07-01] MEDS ORDERED: INSULIN GLARGINE SOLOSTAR 100 UNITS/ML 3 ML PEN SC SCH ×2 (12:30→21:00)
[2018-07-01] MEDS: SPIRONOLACTONE 25 MG TAB PO SCH (13:27)
[2018-07-01] MEDS: ATORVASTATIN 40 MG TAB PO SCH (13:27)
[2018-07-01] MEDS: FLUTICASONE PROPIONATE NA SPR 16 GM BTL SCH (13:27)
[2018-07-01] MEDS: CLOPIDOGREL BISULFATE 75 MG TAB PO SCH (13:27)
--- NOTE | 2018-07-01 13:46 | Pharmacy Report ---
Glycemic Control Consultation - Date of Service July 01, 2018 - Scope Scope: Glycemic Pharmacist consulted by Gay Larios PA-C on 07/01/18 for glycemic control and to write orders per [facility] inpatient glycemic control protocol - Objective Weight: 106.6 kg Accuchecks BSG (last 24hrs): 06/30/18 06/30/18 06/30/18 13:00 13:44 19:50 Glucose 216 H POC Glucose 282 H POC Glucose (other) 237 H 06/30/18 07/01/18 07/01/18 23:48 06:39 07:38 Glucose 214 H POC Glucose 270 H 211 H POC Glucose (other) 07/01/18 12:07 Glucose POC Glucose 322 H POC Glucose (other) Laboratory Data (last 24hrs): 06/30/18 07/01/18 13:00 06:39 Potassium 3.5 3.6 Carbon Dioxide 24 27 Anion Gap 8.0 6.0 Creatinine 1.63 H 1.88 H Est Cr Clr Drug Dosing 44.6 39.0 HbA1c: 8.1 on 04/26/18 - Recent Pertinent Medications Outpatient Anti-diabetic Regimen: * N/A * A1c = 8.1 % 04/26/18 The patient was receiving: * Basal insulin: Lantus 10 units last night, 5 units this AM * Correctional Insulin: Novolog Correction per scale ACHS Goal Range: Low 80 mg/dL - High 140 mg/dL Correction Factor: 20 mg/dL/unit * Prandial insulin: Per carb ratio of 1 unit per 7 grams CHO consumed * Oral Agents: None Risk Factors for Insulin Resistance: * Steroids: None * Infection: PNA on Zosyn and Zithromax IV * Pressors: none * IVF: none * Recent Surgery: none * Diet: NPO - Assessment & Plan Assessment & Plan: ASSESSMENT: * 62 y/o F admitted for Pneumonia being treated with IV antibiotics. * Patient with high BSGs since last night. Pharmacy is now consulted to manage in-patient hyperglycemia. * Patient was ordered Lantus 10 units BID, however she received 10 units last night and only 5 units this AM. * Novolog CF and CR were ordered based on weight and stress of 2, however this has not adequately controlled BSGs. * Tightened Novolog CF for noon today. Patient is currently NPO, so we are not seeing any effects of Carb ratio. PLAN FOR INPATIENT GLYCEMIC CONTROL: * Basal insulin: increased * Lantus dose based on stress of 2 = 18 units BID. * 5 units given this AM. Additional 13 units ordered for this afternoon to make total 18 units. * HS Lantus based on scale: - less than 140 = give none - between 140 - 200 = give 10 units - greater than 200 = give 18 units * Bolus insulin: tightened CF * NovoLog per scale ACHS or Q6hrs while NPO * Goal Range: Low 110 mg/dL - High 140 mg/dL * Correction Factor: 15 mg/dL/unit * Nutritional / Prandial insulin per carb ratio of 1 unit per 7 grams CHO consumed . * Please note that the plan above was derived based on current level of insulin resistance and hospital stress. These recommendations are appropriate for inpatient admission only. Plan of care upon discharge will need to be reassessed to avoid potential outpatient hypo/hyperglycemia. Thank you.
[2018-07-01] MEDS ORDERED: LABETALOL HCL IV 5 MG/ML 20ML IV ONE (14:04)
--- NOTE | 2018-07-01 15:02 | Consultation Report ---
DATE OF CONSULTATION: 07/01/2018 PULMONARY CONSULTATION TIME: 9:25 a.m. REPORT OF CONSULTATION: The patient was seen in room 422. This was an urgent consult. She is a 62-year-old female who for the past several days has been feeling like she has a cold. She reported having a chronic sinus infection for a few months. On June 27, she saw Dr. Montes for a cardiac followup evaluation. He ordered amoxicillin for her. Subsequently, she developed nausea, vomiting and dry heaves. She was unable to keep any food or fluids down. She vomited large quantities. There were mildly loose stools. She had chills and sweats at home. Her temperatures, however, were slightly elevated, but less than 100. She presented to the Emergency Room yesterday with the above-mentioned complaints. She reportedly looked quite stable at that time, but her chest x-ray showed a diffuse infiltrate throughout much of the right lung with heavier concentration in the mid and lower. She subsequently had a CAT scan of the chest done. Dye was not utilized because of elevated creatinine. The CAT scan done last evening showed extensive bilateral airspace opacities, greater on the right than the left. There was no cavitation or pleural effusion. The findings favored severe multifocal pneumonia versus asymmetric pulmonary edema or hemorrhage. Coronary artery calcification was noted. In the program developer hours of today, the patient had a worsening of her respiratory status. She was found to have severe hypoxia on 3 liters of oxygen. Subsequently, on a 15-liter OxyMask, she was still hypoxic into the 70s. BiPAP was then started with improvement in her oxygenation status. She does complain of chest discomfort. Communication is difficult because she has a BiPAP mask on. There was no radiation of pain to the neck or to the shoulders or arms. She has not been expectorating any significant sputum. PAST PULMONARY HISTORY: The patient denies prior lung problems. She has never smoked. PAST SURGICAL HISTORY: 1. Eye surgery. 2. Tonsillectomy. 3. Tubal ligation. PAST MEDICAL HISTORY: 1. Left basal ganglia infarct 2016. 2. Chronic kidney disease. 3. Lyme disease. 4. Congestive heart failure with prior nonischemic cardiomyopathy which resolved. 5. Coronary artery disease - nonobstructive. 6. Hypertension. 7. Diabetes with diabetic retinopathy and neuropathy. 8. Urine incontinence. 9. Vitamin D deficiency. 10. Allergic rhinitis. 11. Hyperparathyroidism. SOCIAL HISTORY: Tobacco never. ETOH - none. ALLERGIES: ERYTHROMYCIN AND TRULICITY. FAMILY HISTORY: Positive for coronary artery disease. REVIEW OF SYSTEMS: Negative, except as noted in the history of present illness, but communication with the patient is difficult as she is wearing a BiPAP mask. This limits the review of systems somewhat. MEDICATIONS AT HOME: 1. Amoxicillin. 2. Atorvastatin. 3. Carvedilol 25 b.i.d. 4. Clopidogrel 75 mg daily. 5. Fluticasone nasal spray. 6. Lisinopril and lisinopril/hydrochlorothiazide. 7. Spironolactone. PHYSICAL EXAMINATION: VITAL SIGNS: The patient is a 62-year-old female who was slightly lethargic, but readily arousable. She was cooperative. She did follow commands. Weight is 106.6 kilograms with BMI 36.8. HEENT: Pupils were reactive. BiPAP mask was in place and thus I could not evaluate the nasal passages or the oropharynx. NECK: Palpation of the neck did not reveal lymph nodes. CHEST: Cardiac rate was 80 per minute. Blood pressure was 141/80. Earlier in the morning at 7:39 a.m., the pressure had been 212/101. Respiratory rate this morning was 28 breaths per minute. It was 20 breaths per minute at the time of my exam. LUNGS: Auscultation reveals rales throughout the right chest. Left lung was fairly clear. Temperature 37.6. Maximum temperature since admission 38.4. Current oxygen saturation 93% on BiPAP 16/8 with 50% oxygen. ABDOMEN: Obese. Bowel sounds were present. There was no tenderness to palpation, masses, or organomegaly. EXTREMITIES: Showed no cyanosis, clubbing or edema. Venous Doppler of the lower extremities was negative for DVT. LABORATORY DATA: White count is 10.3. Hemoglobin 11.5. Platelets 120,000. Differential showed neutrophils elevated at 88.6. INR was 1.1. Blood gas at 8:20 a.m. showed pH of 7.41 with pCO2 of 39, and pO2 of 84. The report indicates 3 liters of oxygen, but in point of fact, she was on BiPAP at that time. Electrolytes show sodium 139, potassium 3.6, chloride 106, bicarbonate 27. BUN is 50 with creatinine 1.88. Blood sugar this morning 214. Calcium was 9.1. Troponins have been elevated with the highest of 0.577. ProBNP was severely elevated at 19,529. Protein was 7.2. Albumin 2.6. Globulin 4.6. Urinalysis shows greater than 30 RBCs. Leukocyte esterase was negative. Bacteria was negative. Flu test was negative. Blood cultures from yesterday are pending. EKG done yesterday showed sinus tachycardia with rate 104. LVH was present. There was mild ST depression in the anterior leads. EKG done this morning shows no significant change. Heart rate has slowed to 82. IMPRESSION: 1. Respiratory failure - acute - with hypoxia. 2. Infiltrates diffusely in the right lung and minimal infiltrates, left base - suspect pneumonia - likely aspiration. 3. Rule out underlying congestive heart failure. COMMENTS AND RECOMMENDATIONS: The patient for now needs to be maintained on BiPAP. After she has stability for a few hours, can consider trial again on an OxyMask. The patient will need close clinical followup and she is at risk for further deterioration. She would be advised to be on Zosyn for coverage for aspiration. She is also on azithromycin. She is also getting neb treatment, which I agree with. She is being transferred to PCU. I did speak with the patient's at the time of this evaluation via a phone call. He is aware of her change of status and the need to transfer her to a higher level of care.
--- NOTE | 2018-07-01 15:13 | Cardiology Consultation ---
Date of Consultation July 01, 2018 Assessment & Plan (1) Cardiomyopathy: She has a remote history of a cardiomyopathy believed to be related to medication use. This has resolved in its entirety. She has been maintained on carvedilol and lisinopril as an outpatient, primarily for high blood pressure. These medicines can be continued when she is tolerating a diet. Echocardiogram performed again today revealed preserved LV systolic function. (2) Elevated troponin: Very minor elevations. She has now had 5 different measurements of her cardiac troponins all of which demonstrate the same value. I think it would be safe to stop checking troponins at this point. I do not believe this is account maintenance representative of an acute coronary syndrome. Most likely explanation is simply her acute illness and severe hypertension. Treatment any cardiac ischemia in this setting is simply supportive. More aggressive control of her blood pressure, maintenance of good oxygenation and limiting tachycardia and acidosis will also be helpful. (3) Hypertension: Her blood pressures are severely elevated. She was not able to take medications for few days due to her presenting illness. She has been restarted on her oral regimen and has been ordered doses of intravenous antihypertensives. Or persistently elevated blood pressure she could be put on a nitroglycerin infusion. This may help any pulmonary vascular congestion as well. She was prescribed 1 dose of diuretic around the time of admission but does not appear to have diuresed significantly. Another dose of diuretic may also help any pulmonary vascular congestion due to her severe hypertension and perhaps improve blood pressure. (4) Mitral regurgitation: Moderate. Not contributing to her current illness or symptoms. This can be monitored over time. History of Present Illness Reason for Consultation: Elevated troponin Requesting Physician: Dorian Attending Physician: Mariaa Alarcon MD History of Present Illness Patient is a 62-year-old woman with remote history of congestive heart failure felt to be related to Avandia who presented to [facility] with worsening dyspnea, weakness, dizziness and subjective fevers. Her initial evaluation suggested multi focal pneumonia and she was admitted for antibiotic therapy. In the emergency room she seems to have had a check of cardiac biomarkers and her troponin was felt to be mildly elevated. Patient states that for a couple of weeks she has had some symptoms of a cough, dyspnea and upper respiratory symptoms. The symptoms became progressive despite prescription of an antibiotic several days ago. Currently she says she has some chest pain with coughing but otherwise has not been experiencing symptoms of chest discomfort. Her breathing has not changed much since admission. She feels quite restless and weak overall. Additionally, she has had a period of anorexia. She has also had some gastrointestinal upset and has not been able to take medicines for several days. She did report some diarrhea as well. Allergies Allergy/AdvReac Type Severity Reaction Status Date / Time dulaglutide [From [facility]] Allergy Hives Unverified 06/30/18 13:27 erythromycin base AdvReac Intermediate VOMITTING Unverified 06/30/18 13:27 Home Medications Home Medications Medication Instructions Recorded Confirmed Type amoxicillin 500 mg PO QID 06/30/18 06/30/18 History atorvastatin 80 mg PO DAILY 06/30/18 06/30/18 History carvedilol [Coreg] 25 mg PO BID 06/30/18 06/30/18 History clobetasol 1 applic TOPICAL DIRECTED PRN 06/30/18 06/30/18 History clopidogrel [Plavix] 75 mg PO DAILY 06/30/18 06/30/18 History fluticasone propionate [Flonase 2 spray INTRANASAL QAM 06/30/18 06/30/18 History Allergy Relief] lisinopril 20 mg PO DAILY 06/30/18 06/30/18 History lisinopril-hydrochlorothiazide 1 tab PO DAILY 06/30/18 06/30/18 History spironolactone 25 mg PO DAILY 06/30/18 06/30/18 History Patient History Medical History CHF (congestive heart failure) Diabetes Hypertension Surgical History S/P cardiac catheterization Family History Other Coronary heart disease Social History Communication Ability: Impaired Beliefs That Will Affect Care: None Current Living Situation: Spouse Other Information That Helps Us Care for You: No Feels Safe at Home: Yes Safety Concerns: Feels Safe At This Time Smoking Status: Never smoker Hx Alcohol Use: Yes Hx Substance Use: No Review of Systems Complete. Pertinent positives noted in history of present illness Physical Exam Vital Signs (Past 24 Hours): Last Vital Signs Temp 39.3 C H 07/01/18 11:41 Pulse 90 07/01/18 11:41 Resp 18 07/01/18 11:41 BP 193/77 H 07/01/18 11:41 Pulse Ox 89 L 07/01/18 11:41 Physical Exam: She is alert and oriented x3. Mood affect appear normal. She answered all questions appropriately but that seems very restless and somewhat lethargic at times. HEENT: Sclerae are anicteric. Pupils are equal and reactive to light and accommodation. Extraocular movements were intact. Neuro: Cranial nerves intact Neck: Examination of the submandibular region did not reveal any significant lymphadenopathy. Carotids are palpable bilaterally and free of bruits on auscultation. There was no evidence of jugular venous distention. The thyroid was not enlarged. Lungs: Coarse respiratory sounds throughout all lung asencio. No expiratory wheezing. Cardiac: The rhythm was regular. S1 and S2 were normal. There are no murmurs on examination. The PMI was not markedly displaced on palpation. Abdomen: The abdomen was soft and nontender. Extremities: Patient has bilateral radial pulses that are equal in intensity. There is no evidence cyanosis or clubbing. There was no evidence of significant peripheral edema bilaterally. Skin: There are no rashes noted on examination today. Results & Data Laboratory Results Abnormal Lab Results 06/30/18 06/30/18 06/30/18 17:50 18:38 19:50 WBC RBC Hgb Hct MCV MCH MCHC RDW Std Deviation RDW Coeff of Braeden Plt Count MPV Immature Gran % (Auto) Neut % (Auto) Lymph % (Auto) [place] % (Auto) Eos % (Auto) Baso % (Auto) Immature Gran # (Auto) Neut # (Auto) Lymph # (Auto) [place] # (Auto) Eos # (Auto) Baso # (Auto) ABG pH ABG pCO2 ABG pO2 ABG HCO3 ABG O2 Saturation ABG Base Excess Kavon Test Barometric Pressure Oxygen Given Sodium Potassium Chloride Carbon Dioxide Anion Gap BUN Creatinine Est Cr Clr Drug Dosing Est GFR ( Amer) Est GFR (Non-Af Amer) BUN/Creatinine Ratio Glucose POC Glucose 282 H Calcium Phosphorus 3.8 Magnesium 1.7 L Troponin I 0.523 H* TSH 0.427 Urine Color Yellow Urine Appearance Cloudy H Urine pH 5.5 Ur Specific Victor 1.033 H Urine Protein 4+ H Urine Glucose (UA) 2+ H Urine Ketones Trace H Urine Blood 3+ H Urine Nitrite Negative Urine Bilirubin Negative Urine Urobilinogen Negative Ur Leukocyte Esterase Negative Urine WBC (Auto) 5-10 H Urine RBC (Auto) 5-10 H U Hyaline Cast (Auto) 1-5 U Epithel Cells (Auto) >30 H Urine Bacteria (Auto) Negative Ur Renal Epithelial Cell Not Reportable Granular Casts 10-20 H Ur Random Creatinine U Random Total Protein Protein/Creatinin Ratio 06/30/18 06/30/18 06/30/18 22:55 23:15 23:15 WBC RBC Hgb Hct MCV MCH MCHC RDW Std Deviation RDW Coeff of Braeden Plt Count MPV Immature Gran % (Auto) Neut % (Auto) Lymph % (Auto) [place] % (Auto) Eos % (Auto) Baso % (Auto) Immature Gran # (Auto) Neut # (Auto) Lymph # (Auto) [place] # (Auto) Eos # (Auto) Baso # (Auto) ABG pH ABG pCO2 ABG pO2 ABG HCO3 ABG O2 Saturation ABG Base Excess Kavon Test Barometric Pressure Oxygen Given Sodium Potassium Chloride Carbon Dioxide Anion Gap BUN Creatinine Est Cr Clr Drug Dosing Est GFR ( Amer) Est GFR (Non-Af Amer) BUN/Creatinine Ratio Glucose POC Glucose Calcium Phosphorus Magnesium Troponin I 0.577 H* TSH Urine Color Yellow Urine Appearance Cloudy H Urine pH 5.0 Ur Specific Victor 1.023 Urine Protein 4+ H Urine Glucose (UA) 2+ H Urine Ketones Negative Urine Blood 3+ H Urine Nitrite Negative Urine Bilirubin Negative Urine Urobilinogen Negative Ur Leukocyte Esterase Negative Urine WBC (Auto) 1-5 Urine RBC (Auto) >30 H U Hyaline Cast (Auto) 10-30 H U Epithel Cells (Auto) >30 H Urine Bacteria (Auto) Negative Ur Renal Epithelial Cell Not Reportable Granular Casts 1-5 H Ur Random Creatinine 67.1 U Random Total Protein 743.1 H Protein/Creatinin Ratio 11.1 H 06/30/18 07/01/18 07/01/18 23:48 06:39 06:39 WBC 10.30 RBC 4.14 L Hgb 11.5 L Hct 34.9 L MCV 84.3 MCH 27.8 MCHC 33.0 RDW Std Deviation 45.6 RDW Coeff of Braeden 14.6 H Plt Count 120 L MPV 10.2 Immature Gran % (Auto) 0.4 Neut % (Auto) 88.6 Lymph % (Auto) 6.0 [place] % (Auto) 4.8 Eos % (Auto) 0.0 Baso % (Auto) 0.2 Immature Gran # (Auto) 0.04 H Neut # (Auto) 9.13 H Lymph # (Auto) 0.62 L [place] # (Auto) 0.49 Eos # (Auto) 0.00 Baso # (Auto) 0.02 ABG pH ABG pCO2 ABG pO2 ABG HCO3 ABG O2 Saturation ABG Base Excess Kavon Test Barometric Pressure Oxygen Given Sodium 139 Potassium 3.6 Chloride 106 Carbon Dioxide 27 Anion Gap 6.0 BUN 50 H Creatinine 1.88 H Est Cr Clr Drug Dosing 39.0 Est GFR ( Amer) 32.6 Est GFR (Non-Af Amer) 28.1 BUN/Creatinine Ratio 26.4 H Glucose 214 H POC Glucose 270 H Calcium 9.1 Phosphorus Magnesium Troponin I 0.499 H* TSH Urine Color Urine Appearance Urine pH Ur Specific Victor Urine Protein Urine Glucose (UA) Urine Ketones Urine Blood Urine Nitrite Urine Bilirubin Urine Urobilinogen Ur Leukocyte Esterase Urine WBC (Auto) Urine RBC (Auto) U Hyaline Cast (Auto) U Epithel Cells (Auto) Urine Bacteria (Auto) Ur Renal Epithelial Cell Granular Casts Ur Random Creatinine U Random Total Protein Protein/Creatinin Ratio 07/01/18 07/01/18 07/01/18 07:38 08:21 12:07 WBC RBC Hgb Hct MCV MCH MCHC RDW Std Deviation RDW Coeff of Braeden Plt Count MPV Immature Gran % (Auto) Neut % (Auto) Lymph % (Auto) [place] % (Auto) Eos % (Auto) Baso % (Auto) Immature Gran # (Auto) Neut # (Auto) Lymph # (Auto) [place] # (Auto) Eos # (Auto) Baso # (Auto) ABG pH 7.41 ABG pCO2 39 ABG pO2 84 ABG HCO3 24 ABG O2 Saturation 96.0 H ABG Base Excess -0.2 Kavon Test Pos Barometric Pressure 733.0 Oxygen Given 3 Sodium Potassium Chloride Carbon Dioxide Anion Gap BUN Creatinine Est Cr Clr Drug Dosing Est GFR ( Amer) Est GFR (Non-Af Amer) BUN/Creatinine Ratio Glucose POC Glucose 211 H 322 H Calcium Phosphorus Magnesium Troponin I TSH Urine Color Urine Appearance Urine pH Ur Specific Victor Urine Protein Urine Glucose (UA) Urine Ketones Urine Blood Urine Nitrite Urine Bilirubin Urine Urobilinogen Ur Leukocyte Esterase Urine WBC (Auto) Urine RBC (Auto) U Hyaline Cast (Auto) U Epithel Cells (Auto) Urine Bacteria (Auto) Ur Renal Epithelial Cell Granular Casts Ur Random Creatinine U Random Total Protein Protein/Creatinin Ratio Diagnostic Findings Chest x-ray and CT scan both demonstrated evidence severe multi focal pneumonia Echocardiogram performed today revealed preserved LV systolic function. Moderate mitral regurgitation. Dobutamine echocardiogram performed in 2017 did not reveal any evidence of inducible ischemia. ECG Additional Comments: EKG demonstrated sinus rhythm with minor nonspecific ST segment changes (1) Hypertension Hypertension type: essential hypertension Qualified Code(s): I10 - Essential (primary) hypertension
[2018-07-01] MEDS ORDERED: ICU PROTOCOL FOR HYPERGLYCEMIA PRN (15:28)
[2018-07-01] MEDS ORDERED: fentaNYL citrate 100 MCG/2 ML VIAL IV PRN (16:03)
[2018-07-01] MEDS ORDERED: fentaNYL citrate 100 MCG/2 ML VIAL IV STA (16:03)
[2018-07-01] MEDS ORDERED: ETOMIDATE 2 MG/ML 20 ML VIAL IV ONE (16:03)
--- NOTE | 2018-07-01 16:06 | Critical Care Consultation ---
Date of Consultation July 01, 2018 Assessment & Plan (1) Admitted to intensive care unit: Present on Admission?: No Supervising Physician Co-Signing Physician Notes I have personally evaluated and examined this patient. I agree with assessment and plan of Shey ALEGRIA. Reason Critically Ill: Patient is critically ill with acute hypoxic hypercarbic respiratory failure secondary to severe community-acquired pneumonia PLAN: Neuro: Patient alert and oriented x3 able to teach back -Consented for central line arterial line, intubation, bronchoscopy, blood transfusion. She Resp: Acute hypoxic respiratory failure -Intubation planned Severe community-acquired pneumonia -Repeat influenza -Expanded antibiotic coverage to include vancomycin Zosyn, Zithromax -50 mg Solu-Medrol twice daily 5 days -IBW 61 KG CV: Elevated troponins -Currently downtrending -Echo pending Fluids/Renal: Acute kidney injury -Normosol 100 mL's per hour ID: Severe community-acquired pneumonia -Bronchoscopy plan to obtain specimen -Blood cultures no growth to date GI/Nutrition: OG tube -Start tube feeds Heme: Thrombocytopenia DVT prophylaxis: Heparin 5000 3 times daily Endocrine: ICU hyperglycemia protocol Vascular access: Peripheral IVs Code Status: Confirmed DO NOT RESUSCITATE in event of cardiac arrest okay with intubation to be surrogate decision-maker. I have personally spent 60 minutes of critical care time in the direct management of this patient. This is a life/limb threatening event. This includes time spent evaluating patient, direct bedside care, chart review, placing orders, interpretation of diagnostic studies, discussion with consultants, patient, and/or family members regarding treatment decisions, as w ell as other required patient management activities. This time is exclusive of all separately billable procedures, and teaching time and separate from and in addition to any other critical care service time. History of Present Illness Attending Physician: Mariaa Alarcon MD Patient is a 62-year-old female with a significant past medical history for cardiomyopathy, high blood pressure and mitral regurgitation who presented with worsening dyspnea. Over the last 24 hours she has had progressive increasing oxygen requirements and was not tolerating noninvasive mechanical ventilation was transferred for further evaluation and management. Allergies Allergy/AdvReac Type Severity Reaction Status Date / Time dulaglutide [From [facility]] Allergy Hives Unverified 06/30/18 13:27 erythromycin base AdvReac Intermediate VOMITTING Unverified 06/30/18 13:27 Home Medications Home Medications Medication Instructions Recorded Confirmed Type amoxicillin 500 mg PO QID 06/30/18 06/30/18 History atorvastatin 80 mg PO DAILY 06/30/18 06/30/18 History carvedilol [Coreg] 25 mg PO BID 06/30/18 06/30/18 History clobetasol 1 applic TOPICAL DIRECTED PRN 06/30/18 06/30/18 History clopidogrel [Plavix] 75 mg PO DAILY 06/30/18 06/30/18 History fluticasone propionate [Flonase 2 spray INTRANASAL QAM 06/30/18 06/30/18 History Allergy Relief] lisinopril 20 mg PO DAILY 06/30/18 06/30/18 History lisinopril-hydrochlorothiazide 1 tab PO DAILY 06/30/18 06/30/18 History spironolactone 25 mg PO DAILY 06/30/18 06/30/18 History Patient History Medical History CHF (congestive heart failure) Diabetes Hypertension Surgical History S/P cardiac catheterization Family History Other Coronary heart disease Social History Communication Ability: Impaired Beliefs That Will Affect Care: None Current Living Situation: Spouse Other Information That Helps Us Care for You: No Feels Safe at Home: Yes Safety Concerns: Feels Safe At This Time Smoking Status: Never smoker Hx Alcohol Use: Yes Hx Substance Use: No Review of Systems Unable to obtain secondary to acuity of condition Physical Exam Vital Signs (Past 24 Hours): Last Vital Signs Temp 36.9 C 07/01/18 15:50 Pulse 71 07/01/18 15:50 Resp 24 07/01/18 15:50 BP 119/69 07/01/18 15:50 Pulse Ox 82 L 07/01/18 15:50 General: Obese female who appears older than her stated age I have reviewed the recorded vital signs Neurological: RASS score: 0, Moves all 4 extremities, Psychological: GCS 15 following complex commands Eyes: Pupils are equal, round and reactive to light, anicteric sclera. Symmetrical lids. HENT: Oropharynx Clear/ Oropharynx obscured by endotracheal tube, moist mucous membranes. Neck: Supple. Symmetric. trachea midline. No thyromegaly. [CVL] Cardiovascular: Normal peripheral perfusion. Distal pulses and capillary refill intact. No JVD. Respiratory: Respirations are labored, accessory muscle use. Breath sounds are equal, and rhonchorous bilaterally Gastrointestinal: Soft. Non-distended. Lymphatic: No cervical lymphadenopathy. Musculoskeletal: No deformity. No clubbing nor cyanosis. Results & Data Laboratory Results I reviewed the laboratory values from July 01 Diagnostic Findings I reviewed the echo report from July 01
[2018-07-01] MEDS ORDERED: RAPID SEQUENCE INDUCTION BAG ONE (16:09)
--- NOTE | 2018-07-01 16:09 | Hospitalist Progress Note ---
Date of Service July 01, 2018 Assessment & Plan (1) Acute respiratory failure with hypoxia: - Developed acute respiratory failure requiring BiPAP with 100% FiO2 this morning. - Likely related to severe multifocal PNA; will upgrade to ICU due to ongoing need for BiPAP, concern for intubation in near future. - Chest CT showed extensive bilat airspace opacities, R>L lung - findings c/w severe multifocal PNA. - CXR this morning showed progression of PNA. - Continue IV Zosyn and Azithromycin; no indication for gram positive coverage. - Duonebs scheduled QID. - Pulmonary consulted, appreciate input. (2) Multifocal pneumonia: - Diagnosed with URI on 06/27 as outpatient, received prescription for Amoxicillin but was likely not taking at home due to N/V. - Chest imaging findings as noted above. - BNP elevated at 19,529; Procalcitonin and Influenza negative. - Converted Ceftriaxone to Zosyn IV for aspiration coverage; continue Azithromycin 250 mg IV daily. - Duonebs scheduled QID. - Blood cultures are pending. - Pulmonary consulted, appreciate input. (3) Non-ischemic cardiomyopathy: - TTE showed EF 55-60%, no diastolic dysfuction noted. - Previous EF was 15% in setting of Avandia. (4) CHF (congestive heart failure): - H/o severe heart failure with EF 15%, was possibly related to Avandia. - Most recent echo showed EF of 55-60%. - Hold diuretics as pt. does not appear to be volume overloaded on imaging or exam. - Laws placed for strict I/O's; monitor daily weights. - BNP was elevated at admission; no evidence of pulm edema on chest imaging. (5) Elevated troponin: - Trop peaked at 0.68, now trending down. - EKG on admission with TWI on anterior leads; repeat EKG today with no acute findings. - Continue home statin, coreg, plavix as tolerated; holding Lisinopril and Lisinopril/HCTZ due to TANYA. - Cardiology consulted, appreciate input. (6) Diabetes: - Has had uncontrolled hyperglycemia -- will consult pharmacy for glycemic management. - Most recent A1C was 8.1 in Apr 2018. (7) Hypertension: - BP has remained elevated throughout hospital admission; has not responded well to Hydralazine IV x 2 doses. - Continue home Coreg and Aldactone; holding Lisinopril and Lisinopril HCTZ due to TANYA. - Hydralazine 10 mg IV q6hr prn HTN. (8) Coronary artery disease: - Cardiac cath completed in 2009, showed mild diffuse CAD with no stent placement necessary. - EF now improved to baseline, 55-60% on most recent TTE. - Follows with Dr. Montes. - Continue statin, plavix as prescribed. (9) Hyperlipidemia: - Continue statin as prescribed. (10) Acute kidney injury: - Creatinine increased to 1.8; baseline ~1.3 - Received IV fluids in the ER; holding further IV fluid hydration. - Hold nephrotoxic meds. (11) CKD (chronic kidney disease), stage III: - Renally dose all meds. (12) Proteinuria: With nephrotic range proteinuria, 4+ on UA and Spot urine prot/galley stripper ratio at 11.1 -this does put her at risk for infections and thrombosis Dopplers LE negative for DVT -consult Nephrology for further recommendations -holding lisinopril for now due to TANYA (13) History of CVA (cerebrovascular accident): - History of left basal ganglia CVA in September 2016. - Continue statin and plavix as prescribed. (14) DVT prophylaxis: - Heparin 5,000 units q8hr. Dispo: Upgrade to ICU for acute hypoxic respiratory failure. CODE STATUS -- DNR, okay with intubation -- confirmed at bedside this morning. Supervising Physician Co-Signing Physician Notes PA Supervision Note: I personally saw and examined the patient. I verified all weaver points and agree with RAMÍREZ Larios with the following exceptions and/or additions: Pt decompensated today with worsening acute hypoxic respiratory failure due to multilobar PNA. Failed BiPAP and was transferred to the ICU and intubated, had bronchoscopy. When I saw the pt prior to being intubated, she was lethargic, minimally responsive, and only nodder her head yes or no to my questions. Vitals reviewed Obese, lethargic Tachycardic, no mgr Lungs with diffuse rhonchi and crackles Abd +BS soft NT ND Ext no edema 62 yo female with a h/o CKD stage III, DMII, HTN, nonischemic CM now resolved, h/o CVA, and nephrotic syndrome, here with sepsis, multilobar severe CAP, and acute hypoxic respiratory failure now requiring intubation. -appreciate Radio News Writer management of vent and critical care -continue broad spectrum abx and follow all cultures -follow volume status, renal function -consult Nephro for nephrotic syndrome with 11.1 Urine spot prot/galley stripper ratio -myocardial demand ischemia with elevated trop secondary to severe PNA- appreciate Cardio consult Subjective Pt. developed acute hypoxic respiratory failure this morning. O2 sats 70's on 15L oxymask. Pt. was evaluated at bedside. BiPAP ordered -- O2 sats improved with BiPAP, 100% FiO2. CXR showed slight progression of pneumonia. ABG was WNL. Code status was discussed with the patient -- she is DNR but would like intubation if necessary. She complained of chest discomfort -- Trop was elevated at admission then trended down. Repeat EKG today was negative for acute changes. Throughout the day, pt. remained on BiPAP. FiO2 weaned down to 50%. She was intermittently hypertensive - received Hydralazine overnight and this morning. Pt. could not tolerate taking PO meds this morning. She was re-evaluated by pulmonary this afternoon due to ongoing need for BiPAP with minimal improvement in hypoxia -- recommended upgrade to ICU. She will be transferred to ICU, consult with Dr. Carcamo. Review of Systems All systems reviewed & are unremarkable except as noted in HPI & below Constitutional: + fatigue and + weakness; no fever, no chills, no body aches and no anorexia Ear, Nose, Mouth, Throat: no nasal congestion, no nasal discharge, no post nasal drip, no sinus pain/pressure and no sore throat Respiratory: + cough, + dyspnea and + dyspnea on exertion; no chest congestion and no wheezing Cardiovascular: + chest pain and + chest pain at rest; no radiating jaw, neck or arm pain, no palpitations, no lightheadedness, no syncope and no edema Gastrointestinal: + nausea; no abdominal pain, no vomiting, no constipation and no diarrhea/loose stools Genitourinary (Female): no difficulty urinating Musculoskeletal: no joint pain Integumentary: no rash Physical Exam Vital Signs (Past 24 Hours): Last Vital Signs Temp 36.9 C 07/01/18 15:50 Pulse 71 07/01/18 15:50 Resp 24 07/01/18 15:50 BP 119/69 07/01/18 15:50 Pulse Ox 82 L 07/01/18 15:50 Physical Exam: Physical Exam from this morning during first assessment: General: In moderate distress secondary to SOB; accompanied by at bedside. HEENT: NC/AT; PERRLA with EOMI; [place] conjunctiva, MMM. Neck: Supple and nontender Cardiac: +tachycardia. Lungs: on BiPAP with FiO2 at 100%; +tachypnea; rales noted in left lung, diminished in right lung. Abdomen: Bowel normoactive X 4; Nontender to palpation Extremities: Warm. No edema present Neuro: No focal weakness Skin: No rash Results & Data Laboratory Results 07/01/18 07/01/18 07/01/18 Range/Units 14:51 12:07 08:21 WBC (4.8-10.8) K/uL RBC (4.2-5.4) M/uL Hgb (12.0-16.0) g/dL Hct (37-47) % MCV (80-100) fL MCH (25-34) pg MCHC (32-36) g/dL RDW Std Deviation (36.4-46.3) fL RDW Coeff of [place] (11.5-14.5) % Plt Count (130-400) K/uL MPV (7.4-10.4) fL Immature Gran % (Auto) % Neut % (Auto) % Lymph % (Auto) % [place] % (Auto) % Eos % (Auto) % Baso % (Auto) % Immature Gran # (Auto) (0.00-0.02) K/uL Neut # (Auto) (1.4-6.5) K/uL Lymph # (Auto) (1.2-3.4) K/uL [place] # (Auto) (0.11-0.59) K/uL Eos # (Auto) (0-0.5) K/uL Baso # (Auto) (0-0.2) K/uL ABG pH 7.41 (7.35-7.45) ABG pCO2 39 (35-46) mmHg ABG pO2 84 (80-95) mm/Hg ABG HCO3 24 (19-24) mmol/L ABG O2 Saturation 96.0 H (90-95) % ABG Base Excess -0.2 (-9-1.8) mEq/L Kavon Test Pos (Pos) Barometric Pressure 733.0 mm/Hg Oxygen Given 3 Sodium (136-145) mmol/L Potassium (3.5-5.1) mmol/L Chloride (98-107) mmol/L Carbon Dioxide (21-32) mmol/L Anion Gap (3-11) BUN (7-18) mg/dl Creatinine (0.6-1.2) mg/dl Est Cr Clr Drug Dosing ml/min Est GFR ( Amer) Est GFR (Non-Af Amer) BUN/Creatinine Ratio (10-20) Glucose (70-99) mg/dl POC Glucose 322 H (70-99) Calcium (8.5-10.1) mg/dl Phosphorus (2.5-4.9) mg/dl Magnesium (1.8-2.4) mg/dl Troponin I 0.553 H* (0-0.045) ng/ml TSH (0.300-4.500) uIu/ml Urine Color Urine Appearance (Clear) Urine pH (4.5-7.5) Ur Specific [place] (1.000-1.030) Urine Protein (Negative) Urine Glucose (UA) (Negative) Urine Ketones (Negative) Urine Blood (Negative) Urine Nitrite (Negative) Urine Bilirubin (Negative) Urine Urobilinogen (Negative) Ur Leukocyte Esterase (Negative) Urine WBC (Auto) (0-5) /hpf Urine RBC (Auto) (0-4) /hpf U Hyaline Cast (Auto) (0-5) /lpf U Epithel Cells (Auto) (0-5) /lpf Urine Bacteria (Auto) (Negative) Ur Renal Epithelial Cell Granular Casts (0) /lpf Ur Random Creatinine mg/dl U Random Total Protein (0-11.9) mg/dl Protein/Creatinin Ratio (0-0.2) 07/01/18 07/01/18 07/01/18 Range/Units 07:38 06:39 06:39 WBC 10.30 (4.8-10.8) K/uL RBC 4.14 L (4.2-5.4) M/uL Hgb 11.5 L (12.0-16.0) g/dL Hct 34.9 L (37-47) % MCV 84.3 (80-100) fL MCH 27.8 (25-34) pg MCHC 33.0 (32-36) g/dL RDW Std Deviation 45.6 (36.4-46.3) fL RDW Coeff of Braeden 14.6 H (11.5-14.5) % Plt Count 120 L (130-400) K/uL MPV 10.2 (7.4-10.4) fL Immature Gran % (Auto) 0.4 % Neut % (Auto) 88.6 % Lymph % (Auto) 6.0 % [place] % (Auto) 4.8 % Eos % (Auto) 0.0 % Baso % (Auto) 0.2 % Immature Gran # (Auto) 0.04 H (0.00-0.02) K/uL Neut # (Auto) 9.13 H (1.4-6.5) K/uL Lymph # (Auto) 0.62 L (1.2-3.4) K/uL [place] # (Auto) 0.49 (0.11-0.59) K/uL Eos # (Auto) 0.00 (0-0.5) K/uL Baso # (Auto) 0.02 (0-0.2) K/uL ABG pH (7.35-7.45) ABG pCO2 (35-46) mmHg ABG pO2 (80-95) mm/Hg ABG HCO3 (19-24) mmol/L ABG O2 Saturation (90-95) % ABG Base Excess (-9-1.8) mEq/L Kavon Test (Pos) Barometric Pressure mm/Hg Oxygen Given Sodium 139 (136-145) mmol/L Potassium 3.6 (3.5-5.1) mmol/L Chloride 106 (98-107) mmol/L Carbon Dioxide 27 (21-32) mmol/L Anion Gap 6.0 (3-11) BUN 50 H (7-18) mg/dl Creatinine 1.88 H (0.6-1.2) mg/dl Est Cr Clr Drug Dosing 39.0 ml/min Est GFR ( Amer) 32.6 Est GFR (Non-Af Amer) 28.1 BUN/Creatinine Ratio 26.4 H (10-20) Glucose 214 H (70-99) mg/dl POC Glucose 211 H (70-99) Calcium 9.1 (8.5-10.1) mg/dl Phosphorus (2.5-4.9) mg/dl Magnesium (1.8-2.4) mg/dl Troponin I 0.499 H* (0-0.045) ng/ml TSH (0.300-4.500) uIu/ml Urine Color Urine Appearance (Clear) Urine pH (4.5-7.5) Ur Specific [place] (1.000-1.030) Urine Protein (Negative) Urine Glucose (UA) (Negative) Urine Ketones (Negative) Urine Blood (Negative) Urine Nitrite (Negative) Urine Bilirubin (Negative) Urine Urobilinogen (Negative) Ur Leukocyte Esterase (Negative) Urine WBC (Auto) (0-5) /hpf Urine RBC (Auto) (0-4) /hpf U Hyaline Cast (Auto) (0-5) /lpf U Epithel Cells (Auto) (0-5) /lpf Urine Bacteria (Auto) (Negative) Ur Renal Epithelial Cell Granular Casts (0) /lpf Ur Random Creatinine mg/dl U Random Total Protein (0-11.9) mg/dl Protein/Creatinin Ratio (0-0.2) 06/30/18 06/30/18 06/30/18 Range/Units 23:48 23:15 23:15 WBC (4.8-10.8) K/uL RBC (4.2-5.4) M/uL Hgb (12.0-16.0) g/dL Hct (37-47) % MCV (80-100) fL MCH (25-34) pg MCHC (32-36) g/dL RDW Std Deviation (36.4-46.3) fL RDW Coeff of Braeden (11.5-14.5) % Plt Count (130-400) K/uL MPV (7.4-10.4) fL Immature Gran % (Auto) % Neut % (Auto) % Lymph % (Auto) % [place] % (Auto) % Eos % (Auto) % Baso % (Auto) % Immature Gran # (Auto) (0.00-0.02) K/uL Neut # (Auto) (1.4-6.5) K/uL Lymph # (Auto) (1.2-3.4) K/uL [place] # (Auto) (0.11-0.59) K/uL Eos # (Auto) (0-0.5) K/uL Baso # (Auto) (0-0.2) K/uL ABG pH (7.35-7.45) ABG pCO2 (35-46) mmHg ABG pO2 (80-95) mm/Hg ABG HCO3 (19-24) mmol/L ABG O2 Saturation (90-95) % ABG Base Excess (-9-1.8) mEq/L Kavon Test (Pos) Barometric Pressure mm/Hg Oxygen Given Sodium (136-145) mmol/L Potassium (3.5-5.1) mmol/L Chloride (98-107) mmol/L Carbon Dioxide (21-32) mmol/L Anion Gap (3-11) BUN (7-18) mg/dl Creatinine (0.6-1.2) mg/dl Est Cr Clr Drug Dosing ml/min Est GFR ( Amer) Est GFR (Non-Af Amer) BUN/Creatinine Ratio (10-20) Glucose (70-99) mg/dl POC Glucose 270 H (70-99) Calcium (8.5-10.1) mg/dl Phosphorus (2.5-4.9) mg/dl Magnesium (1.8-2.4) mg/dl Troponin I (0-0.045) ng/ml TSH (0.300-4.500) uIu/ml Urine Color Yellow Urine Appearance Cloudy H (Clear) Urine pH 5.0 (4.5-7.5) Ur Specific [place] 1.023 (1.000-1.030) Urine Protein 4+ H (Negative) Urine Glucose (UA) 2+ H (Negative) Urine Ketones Negative (Negative) Urine Blood 3+ H (Negative) Urine Nitrite Negative (Negative) Urine Bilirubin Negative (Negative) Urine Urobilinogen Negative (Negative) Ur Leukocyte Esterase Negative (Negative) Urine WBC (Auto) 1-5 (0-5) /hpf Urine RBC (Auto) >30 H (0-4) /hpf U Hyaline Cast (Auto) 10-30 H (0-5) /lpf U Epithel Cells (Auto) >30 H (0-5) /lpf Urine Bacteria (Auto) Negative (Negative) Ur Renal Epithelial Cell Not Reportable Granular Casts 1-5 H (0) /lpf Ur Random Creatinine 67.1 mg/dl U Random Total Protein 743.1 H (0-11.9) mg/dl Protein/Creatinin Ratio 11.1 H (0-0.2) 06/30/18 06/30/18 06/30/18 Range/Units 22:55 19:50 18:38 WBC (4.8-10.8) K/uL RBC (4.2-5.4) M/uL Hgb (12.0-16.0) g/dL Hct (37-47) % MCV (80-100) fL MCH (25-34) pg MCHC (32-36) g/dL RDW Std Deviation (36.4-46.3) fL RDW Coeff of Braed[place] (11.5-14.5) % Plt Count (130-400) K/uL MPV (7.4-10.4) fL Immature Gran % (Auto) % Neut % (Auto) % Lymph % (Auto) % [place] % (Auto) % Eos % (Auto) % Baso % (Auto) % Immature Gran # (Auto) (0.00-0.02) K/uL Neut # (Auto) (1.4-6.5) K/uL Lymph # (Auto) (1.2-3.4) K/uL [place] # (Auto) (0.11-0.59) K/uL Eos # (Auto) (0-0.5) K/uL Baso # (Auto) (0-0.2) K/uL ABG pH (7.35-7.45) ABG pCO2 (35-46) mmHg ABG pO2 (80-95) mm/Hg ABG HCO3 (19-24) mmol/L ABG O2 Saturation (90-95) % ABG Base Excess (-9-1.8) mEq/L Kavon Test (Pos) Barometric Pressure mm/Hg Oxygen Given Sodium (136-145) mmol/L Potassium (3.5-5.1) mmol/L Chloride (98-107) mmol/L Carbon Dioxide (21-32) mmol/L Anion Gap (3-11) BUN (7-18) mg/dl Creatinine (0.6-1.2) mg/dl Est Cr Clr Drug Dosing ml/min Est GFR ( Amer) Est GFR (Non-Af Amer) BUN/Creatinine Ratio (10-20) Glucose (70-99) mg/dl POC Glucose 282 H (70-99) Calcium (8.5-10.1) mg/dl Phosphorus 3.8 (2.5-4.9) mg/dl Magnesium 1.7 L (1.8-2.4) mg/dl Troponin I 0.577 H* 0.523 H* (0-0.045) ng/ml TSH 0.427 (0.300-4.500) uIu/ml Urine Color Urine Appearance (Clear) Urine pH (4.5-7.5) Ur Specific [place] (1.000-1.030) Urine Protein (Negative) Urine Glucose (UA) (Negative) Urine Ketones (Negative) Urine Blood (Negative) Urine Nitrite (Negative) Urine Bilirubin (Negative) Urine Urobilinogen (Negative) Ur Leukocyte Esterase (Negative) Urine WBC (Auto) (0-5) /hpf Urine RBC (Auto) (0-4) /hpf U Hyaline Cast (Auto) (0-5) /lpf U Epithel Cells (Auto) (0-5) /lpf Urine Bacteria (Auto) (Negative) Ur Renal Epithelial Cell Granular Casts (0) /lpf Ur Random Creatinine mg/dl U Random Total Protein (0-11.9) mg/dl Protein/Creatinin Ratio (0-0.2) 06/30/18 Range/Units 17:50 WBC (4.8-10.8) K/uL RBC (4.2-5.4) M/uL Hgb (12.0-16.0) g/dL Hct (37-47) % MCV (80-100) fL MCH (25-34) pg MCHC (32-36) g/dL RDW Std Deviation (36.4-46.3) fL RDW Coeff of Braed[place] (11.5-14.5) % Plt Count (130-400) K/uL MPV (7.4-10.4) fL Immature Gran % (Auto) % Neut % (Auto) % Lymph % (Auto) % [place] % (Auto) % Eos % (Auto) % Baso % (Auto) % Immature Gran # (Auto) (0.00-0.02) K/uL Neut # (Auto) (1.4-6.5) K/uL Lymph # (Auto) (1.2-3.4) K/uL [place] # (Auto) (0.11-0.59) K/uL Eos # (Auto) (0-0.5) K/uL Baso # (Auto) (0-0.2) K/uL ABG pH (7.35-7.45) ABG pCO2 (35-46) mmHg ABG pO2 (80-95) mm/Hg ABG HCO3 (19-24) mmol/L ABG O2 Saturation (90-95) % ABG Base Excess (-9-1.8) mEq/L Kavon Test (Pos) Barometric Pressure mm/Hg Oxygen Given Sodium (136-145) mmol/L Potassium (3.5-5.1) mmol/L Chloride (98-107) mmol/L Carbon Dioxide (21-32) mmol/L Anion Gap (3-11) BUN (7-18) mg/dl Creatinine (0.6-1.2) mg/dl Est Cr Clr Drug Dosing ml/min Est GFR ( Amer) Est GFR (Non-Af Amer) BUN/Creatinine Ratio (10-20) Glucose (70-99) mg/dl POC Glucose (70-99) Calcium (8.5-10.1) mg/dl Phosphorus (2.5-4.9) mg/dl Magnesium (1.8-2.4) mg/dl Troponin I (0-0.045) ng/ml TSH (0.300-4.500) uIu/ml Urine Color Yellow Urine Appearance Cloudy H (Clear) Urine pH 5.5 (4.5-7.5) Ur Specific [place] 1.033 H (1.000-1.030) Urine Protein 4+ H (Negative) Urine Glucose (UA) 2+ H (Negative) Urine Ketones Trace H (Negative) Urine Blood 3+ H (Negative) Urine Nitrite Negative (Negative) Urine Bilirubin Negative (Negative) Urine Urobilinogen Negative (Negative) Ur Leukocyte Esterase Negative (Negative) Urine WBC (Auto) 5-10 H (0-5) /hpf Urine RBC (Auto) 5-10 H (0-4) /hpf U Hyaline Cast (Auto) 1-5 (0-5) /lpf U Epithel Cells (Auto) >30 H (0-5) /lpf Urine Bacteria (Auto) Negative (Negative) Ur Renal Epithelial Cell Not Reportable Granular Casts 10-20 H (0) /lpf Ur Random Creatinine mg/dl U Random Total Protein (0-11.9) mg/dl Protein/Creatinin Ratio (0-0.2) (1) Diabetes Diabetes mellitus complication status: without complication Diabetes mellitus mcfp insulin use: with mcfp use Diabetes mellitus type: type 2 Qualified Code(s): E11.9 - Type 2 diabetes mellitus without complications; 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
[2018-07-01] MEDS ORDERED: VANCOMYCIN CONSULT ACTIVE PRN (17:18)
[2018-07-01 17:34] LABS: iSTAT Arterial Bld Gas O2 Sat 92; iSTAT FiO2 100 %; iSTAT Hematocrit 28 % (37-47); iSTAT Hemoglobin 9.5 g/dl (12.0-16.0); iSTAT Potassium 3.2 mEq/L (3.3-5.0); iSTAT Site Art Line; iSTAT Sodium 138 mEq/L (135-144)
--- NOTE | 2018-07-01 17:35 | XRay Report ---
XR chest 1V portable HISTORY: 62 years-old Female INtubation acute respiratory failure COMPARISON: Chest radiograph 07/01/2018, chest CT 06/30/2018 TECHNIQUE: Portable AP view of the chest FINDINGS: Endotracheal tube overlies the midline, 5.1 cm superior to the trevor. An enteric tube is present, di stal tip overlying the abdominal left upper quadrant within the expected location of the gastric body . Cardiac silhouette is enlarged, unchanged. Calcification the thoracic aortic arch. No pneumothorax or overt pulmonary edema. Multifocal alveolar opacities, right greater than left redemonstrated. No l arge pleural effusion. Degenerative changes of the shoulders and spine. IMPRESSION: 1. Endotracheal tube overlies the midline, 5.1 cm superior to the trevor. 2. Enteric tube distal tip noted within the region of the gastric body. 3. Right greater then left bilateral alveolar opacities redemonstrated suggestive of multifocal pneum onia. Continued follow-up recommended. 4. Cardiomegaly. The above report was generated using voice recognition software. It may contain grammatical, syntax o r spelling errors. Electronically signed by: Magan Roberts M.D. 07/01/2018 5:34 PM
[2018-07-01] MEDS ORDERED: VANCOMYCIN HCL 2,500 MG in SODIUM CHLORIDE 0.9% 500 ML IV ONE (17:45)
[2018-07-01 17:53] LABS: INR 1.1 (0.9-1.1); Partial Thromboplastin Time 27.1 Seconds (21.0-31.0); Prothrombin Time 10.9 Seconds (9.0-12.0)
[2018-07-01] MEDS: PIPERACILLIN/TAZOBACTAM 4.5 GM in DEXTROSE 5% 100 ML IV SCH (17:54)
[2018-07-01] MEDS ORDERED: NORMOSOL-R 500 ML IV ONE ×2 (18:15→19:15)
--- NOTE | 2018-07-01 18:47 | Procedure Note ---
Procedure Note Date of Service July 01, 2018 Procedure Date: Noted above Procedure: Endotracheal intubation Pre-procedure Diagnosis: Acute hypoxic respiratory failure Post-procedure Diagnosis: same as above Prior to Procedure: Informed Consent: Risks and benefits were explained to the patient and informed consent was obtained Attending Staff: London Carcamo DO Indications: 62-year-old female with acute hypoxic respiratory failure requiring mechanical ventilation The identity of the patient was confirmed and a bedside time out was performed. Description of Procedure: Patient was evaluated and required intubation for impending respiratory failure. The patient was prepared in the usual fashion. A 3 MAC video laryngoscope was u sed. The airway was rather anterior patient was bagged and will be transitioned to a Quarles to laryngoscope and was still unable to visualize more than the arytenoids. Patient was again bagged and we transitioned to a #4 glide scope and adequate visualization of the glottic opening was finally obtained. A 7.5 endotrachial tube was placed endotracheally to 21 cm at the teeth. The endotracheal tube was noted to pass through the vocal cords. Chest rise was bilateral. Bilateral breath sounds were heard without air sounds in the abdomen. Mist was noted in the endotracheal tube. End-tidal CO2 measurement was positive. CT scan of the chest showed proper placement of the endotracheal tube, placement was confirmed via bronchoscopy Complications: None Findings: Not applicable Specimens: Not applicable Estimated blood loss: Zero
--- NOTE | 2018-07-01 18:47 | Procedure Note ---
Procedure Note: Bronchoscopy Procedure Procedure date: July 01, 2017 Procedure: fiberoptic bronchoscopy Pre-procedure indication: Acute hypoxic respiratory failure Post-procedure Diagnosis: same as above Prior to Procedure: Informed Consent: The risks, benefits, indications, potential complications, and alternatives were explained to the patient and informed consent obtained. Attending Staff: London Carcamo DO Resident/APC: Not applicable Skin Prep: Not applicable Anesthesia: 2 mg Versed, 100 mcg fentanyl The identity of the patient was confirmed and a bedside time out was performed. Description of Procedure: Fiberoptic bronchoscopy was performed via endotracheal tube. Bronchioalveolar lavage right middle lobe was performed. Findings included: No evidence of diffuse alveolar hemorrhage, secretions were thin and clear bilaterally no evidence of purulence no evidence of mucoid impaction. Complications: None Specimens: Bronchial washings sent for culture and Gram stain, cytology, fungal elements, and AFB stain and culture. Estimated blood loss: Zero
[2018-07-01] MEDS: fentaNYL citrate 100 MCG/2 ML VIAL IV PRN ×2 (18:50→23:04)
[2018-07-01] MEDS: NORMOSOL-R 1,000 ML IV SCH (18:56)
[2018-07-01] MEDS ORDERED: CISATRACURIUM BESYLATE IV SOLN 2 MG/ML 10 ML VIAL IV STA (18:59)
[2018-07-01] MEDS ORDERED: CISATRACURIUM BESYLATE IV SCH (19:15)
[2018-07-01 19:25] LABS: Influenza A virus by PCR Neg for Influ A (Neg); Influenza B virus by PCR Neg for Influ B (Neg)
[2018-07-01] MEDS: MIDAZOLAM HCL 1 MG/ML 2ML VIAL IV PRN (20:24)
[2018-07-01] MEDS: CISATRACURIUM BESYLATE 40 MG in 0.9 % SODIUM CHLORIDE 80 ML IV SCH (20:25)
[2018-07-01] MEDS ORDERED: OPTIRAY 320 125ml IV PRN (20:57)
[2018-07-01] MEDS ORDERED: methylPREDNISolone 50 MG in SYRINGE 0 ML IV SCH (21:00)
--- NOTE | 2018-07-01 21:19 | CT Scan Report ---
CT angio chest PE protocol CT DOSE: 613.69 mGy.cm HISTORY: 62 years-old Female with PE. Acute respiratory failure TECHNIQUE: Multiple CTA images of the chest were obtained after the intravenous administration of 97 ml Optiray 320. Coronal and sagittal MIPS were obtained from the axial data set and were submitted f or review. All measurements were obtained according to NASCET criteria. A dose lowering technique wa s utilized adhering to the principles of ALARA. COMPARISON: Chest CT 06/30/2018 FINDINGS: CTA: Mild multichamber cardiac enlargement without pericardial effusion. Coronary arterial calcifications noted. No thoracic aortic aneurysm or dissection. Moderate mixed plaque formation of the thoracic aor ta and proximal great vessels which appear to be patent. The pulmonary arterial tree is opacified to level the subsegmental branches and demonstrates no focal filling defects suggest pulmonary thromboem bolic disease. Mild reflux of contrast into the IVC and hepatic veins. Left internal jugular venous c atheter is noted, distal tip terminating at the superior cavoatrial junction. CT CHEST: Heterogeneous appearance of the thyroid. Enlarged paratracheal and subcarinal lymph nodes are seen me asuring up to 10 mm in short axis, unchanged. Extensive bilateral multi lobar, multi segmental distri bution of alveolar opacities are noted, right greater than left which have progressively worsened and become more confluent than yesterday's study. Trace right pleural effusion is noted. No significant intralobular septal thickening is noted. Endotracheal tube is noted within the trachea terminating se veral centimeters above the level the trevor. Enteric tube is noted coursing into the gastric lumen, distal tip outside the [id number]. Central airways appear to be patent. No acute process of the imaged upper abdomen. The breast parenchyma and soft tissues appear to be unr emarkable. Bones appear to be intact. Degenerative changes of the shoulders and spine. IMPRESSION: 1. Cardiomegaly without acute aortic pathology or evidence of pulmonary thromboembolic disease. 2. Satisfactory positioning of the endotracheal tube and left internal jugular central venous cathete r. Enteric tube courses below the diaphragm outside the [id number]. 3. Right greater than left extensive alveolar opacities of the bilateral lungs have progressively wor sened from yesterday's CT study and are again suggestive of multifocal pneumonia. 4. Trace right pleural effusion. 5. Mildly enlarged mediastinal and subcarinal lymph nodes are likely reactive. The above report was generated using voice recognition software. It may contain grammatical, syntax o r spelling errors. Electronically signed by: Magan Roberts M.D. 07/01/2018 9:17 PM
[2018-07-01 23:29] LABS: iSTAT Arterial Blood Gas HCO3 24 meg/L (19-24); iSTAT Arterial Blood Gas pCO2 55 mmHg (35-46); iSTAT Arterial Blood Gas pH 7.25 (7.35-7.45); iSTAT Carbon Dioxide 26 mEq/l (24-31); iSTAT FiO2 80 %; iSTAT Site Art Line
[2018-07-01] MEDS: LISINOPRIL/HCTZ 20/25MG 1 TAB PO SCH (23:50)
[2018-07-01] MEDS: LISINOPRIL 20 MG TAB PO SCH (23:50)
[2018-07-02] MEDS ORDERED: INSULIN ASPART 100 UNITS/ML 3 ML PEN SC SCH
[2018-07-02] MEDS: HEPARIN SOD 5,000 UNIT/0.5 ML VIAL SQ SCH ×4 (00:10→22:59)
[2018-07-02] MEDS: MIDAZOLAM HCL 1 MG/ML 2ML VIAL IV PRN (00:20)
[2018-07-02] MEDS: PIPERACILLIN/TAZOBACTAM 4.5 GM in DEXTROSE 5% 100 ML IV SCH ×3 (00:23→16:15)
[2018-07-02] MEDS: INSULIN ASPART 100 UNITS/ML 3 ML PEN SC SCH ×6 (01:00→20:39)
[2018-07-02] MEDS: fentaNYL citrate 100 MCG/2 ML VIAL IV PRN ×2 (01:08→21:08)
[2018-07-02] MEDS: MIDAZOLAM HCL 125 MG/250 ML BAG IV SCH (02:00)
[2018-07-02] MEDS ORDERED: MIDAZOLAM HCL 125MG/250ML D5W ONE (02:00)
[2018-07-02] MEDS: CISATRACURIUM BESYLATE 40 MG in 0.9 % SODIUM CHLORIDE 80 ML IV SCH ×3 (03:16→15:32)
[2018-07-02] MEDS: NORMOSOL-R 1,000 ML IV SCH (03:45)
[2018-07-02 05:15] LABS: HCO3 ABG 23 mmol/L (19-24); Oxygen Saturation ABG 94.9 % (90-95); PCO2 ABG 40 mmHg (35-46); PO2 ABG 78 mm/Hg (80-95); pH ABG 7.38 (7.35-7.45)
[2018-07-02 05:17] LABS: Allen Test Pos (Pos)
[2018-07-02 06:25] LABS: iSTAT Arterial Blood Gas HCO3 23 meg/L (19-24); iSTAT Arterial Blood Gas pCO2 39 mmHg (35-46); iSTAT Arterial Blood Gas pH 7.37 (7.35-7.45); iSTAT Carbon Dioxide 24 mEq/l (24-31); iSTAT FiO2 40 %; iSTAT Site Art Line
--- NOTE | 2018-07-02 07:00 | Procedure Note ---
Procedure Note Date of Service July 01, 2018 Procedure date: Noted above Procedure: Radial artery cannulation Pre-procedure Diagnosis: Need for invasive monitoring frequent blood draws Post-procedure Diagnosis: same as above Prior to Procedure: Informed Consent: The risks, benefits, indications, potential complications, and alternatives were explained to the patient and informed consent obtained. Attending Staff: London Carcamo DO Skin Prep: Chlorhexidine Anesthesia: 3 mL 1% lidocaine without epinephrine The identity of the patient was confirmed and a bedside time out was performed. Description of Procedure: After sterile prep and sterile drape utilizing standard sterile technique the superficial skin of the right radial artery was anesthetized. The target artery was identified via dynamic ultrasound guidance and entered with a 20-gauge arrow Angiocath. Pulsatile bright red blood return was noted. Via modified Seldinger technique the self-contained guidewire was advanced and the Angiocath advanced over the guidewire. The guidewire was removed and brisk arterial blood return was noted. The pressure monitor was connected, and the arterial line was secured via commercial securement device. A sterile dressing was then applied. Complications: None Estimated blood loss: Trace Patient tolerated the procedure well.
--- NOTE | 2018-07-02 07:03 | XRay Report ---
XR chest 1V portable CLINICAL HISTORY: intubation COMPARISON STUDY: Chest radiograph and chest CT July 01, 2018. FINDINGS: Tip of endotracheal tube is 5.8 cm above the trevor. Left subclavian central line is in smita ce. Tip of nasogastric tube is below the lower aspect of this image but at least within the body of t he stomach. There is no pneumothorax. No pleural effusion is noted. Dense right lung consolidation pe rsists. Airspace opacity within the left lung is also noted. IMPRESSION: 1. Tip of endotracheal tube 5.8 cm above the trevor. 2. Persistent dense right lung consolidation suggestive of pneumonia with additional airspace opaciti es within the left lung. Electronically signed by: Jonathan An M.D. 07/02/2018 7:01 AM
--- NOTE | 2018-07-02 07:04 | Procedure Note ---
Procedure Note Date of Service July 02, 2018 Procedure date: Noted above Procedure: Central venous access Pre-procedure indication: Need for vasoactive medication administration, invasive hemodynamic monitoring Post-procedure Diagnosis: same as above Prior to Procedure: Informed Consent: The risks, benefits, indications, potential complications, and alternatives were explained to the patient and informed consent obtained. Attending Staff: London Carcamo DO Resident/APC: Not applicable Skin Prep: Chlorhexidine Anesthesia: 4 mL 1% lidocaine without epinephrine The identity of the patient was confirmed and a bedside time out was performed. Description of Procedure: After sterile prep and sterile drape utilizing standard sterile technique the superficial skin of the right internal jugular area was anesthetized. The target vessel was identified and entered with an 18- gauge needle. Dark venous blood return was noted. A guidewire was inserted through the needle and into the vessel, however it was only able to be inserted to a depth of 10 cm until significant resistance was met. The guidewire was reoriented 3 times and again each time unable to pass beyond 10 cm. The vessel was identified via ultrasound again and entered; and again was unable to pass the guidewire beyond 10 cm meeting significant resistance. Further attempts in the right internal jugular were aborted and the superficial skin of the right subclavian was sterilized as well as anesthetized. With 1 Needle Pass dark red blood was returned, the guidewire was attempted to be inserted and again significant resistance was met at approximately 10 cm. All further attempts at central venous access placement in the right side was aborted Complications: Unable to pass a guidewire successfully from the right internal jugular or right subclavian approach Estimated blood loss: Trace Patient tolerated the procedure well. Procedure Date: Noted Above Procedure: Procedural Ultrasound Indication: Central venous access Attending: London Carcamo DO Resident/Physician Vessel Liner: Not applicable Artery visualized: Yes Vein visualized: Yes Compressible Vein: Yes Vein patent: Yes Guidewire or Short Catheter seen in vein prior to dilation: No Line confirmed in Vein with ultrasound: Yes If no lung sliding or not obtained has CXR been ordered: Yes Impression: Normal appearance of right internal jugular vein Images obtained are saved for permanent record
--- NOTE | 2018-07-02 07:06 | Procedure Note ---
Procedure Note Date of Service July 01, 2018 Procedure date: Noted above Procedure: Central venous access Pre-procedure indication: Need for vasoactive medication administration, invasive hemodynamic monitoring Post-procedure Diagnosis: same as above Prior to Procedure: Informed Consent: The risks, benefits, indications, potential complications, and alternatives were explained to the patient and informed consent obtained. Attending Staff: London Carcamo DO Resident/APC: Not applicable Skin Prep: Chlorhexidine Anesthesia: 4 mL 1% lidocaine without epinephrine The identity of the patient was confirmed and a bedside time out was performed. Description of Procedure: After sterile prep and sterile drape utilizing standard sterile technique the superficial skin of the left subclavian area was anesthetized. The target vessel was identified and entered with an 18-gauge needle. Dark venous blood return was noted. A guidewire was inserted through the needle and into the vessel. The needle was withdrawn and a skin melly was made. A tissue dilator was advanced via Seldinger technique and removed. A triple lumen catheter was inserted via Seldinger technique and the guidewire removed. All ports keon and flushed easily. A Biopatch was placed, and the catheter was secured via silk suture. A sterile dressing was then applied. Complications: None Estimated blood loss: Trace Patient tolerated the procedure well.
--- NOTE | 2018-07-02 07:23 | Critical Care Progress Note ---
Date of Service July 02, 2018 Assessment & Plan (1) Admitted to intensive care unit: Reason Critically Ill: Patient is critically ill with acute hypoxic hypercarbic respiratory failure secondary to severe community-acquired pneumonia PLAN: Neuro: Undergoing neuromuscular blockade for severe regards -Pneumovax discontinue at 8 PM this evening Resp: Acute hypoxic respiratory failure Severe regards -P/F: 165; arts net box: 7 high PEEP low FiO2 -Currently on Zosyn and a Zithromax for antibiotics will likely discontinue after findings of bronc washings - currently no steroids given neuromuscular blockade -IBW 61 KG CV: Elevated troponins -Will be elevated in setting of acute kidney injury -Echo: Reviewed Fluids/Renal: Acute kidney injury -Normal saline at 50 mL's per hour -Renal ultrasound -Repeat UA ID: Severe community-acquired pneumonia -Influenza negative x2 -Blood cultures no growth to date -No growth out of BAL -Nasal MRSA screen negative will discontinue vancomycin continue other antibiotics GI/Nutrition: OG tube -Tube feeds at trickle no progression Heme: Thrombocytopenia DVT prophylaxis: Heparin 5000 3 times daily Endocrine: ICU hyperglycemia protocol Vascular access: Left radial arterial line, left subclavian triple-lumen catheter Code Status: Confirmed DO NOT RESUSCITATE in event of cardiac arrest okay with intubation to be surrogate decision-maker. I have personally spent 55 minutes of critical care time in the direct management of this patient. This is a life/limb threatening event. This includes time spent evaluating patient, direct bedside care, chart review, placing orders, interpretation of diagnostic studies, discussion with consultants, patient, and/or family members regarding treatment decisions, as well as other required patient management activities. This time is exclusive of all separately billable procedures, and teaching time and separate from and in addition to any other critical care service time. Supervising Physician Co-Signing Physician Notes I have personally evaluated and examined this patient. I agree with assessment and plan of Shey ALEGRIA. Reason Critically Ill: Patient is critically ill with acute hypoxic hypercarbic respiratory failure secondary to severe community-acquired pneumonia PLAN: Neuro: Patient alert and oriented x3 able to teach back -Consented for central line arterial line, intubation, bronchoscopy, blood transfusion. She Resp: Acute hypoxic respiratory failure -Intubation planned Severe community-acquired pneumonia -Repeat influenza -Expanded antibiotic coverage to include vancomycin Zosyn, Zithromax -50 mg Solu-Medrol twice daily 5 days -IBW 61 KG CV: Elevated troponins -Currently downtrending -Echo pending Fluids/Renal: Acute kidney injury -Normosol 100 mL's per hour ID: Severe community-acquired pneumonia -Bronchoscopy plan to obtain specimen -Blood cultures no growth to date GI/Nutrition: OG tube -Start tube feeds Heme: Thrombocytopenia DVT prophylaxis: Heparin 5000 3 times daily Endocrine: ICU hyperglycemia protocol Vascular access: Peripheral IVs Code Status: Confirmed DO NOT RESUSCITATE in event of cardiac arrest okay with intubation to be surrogate decision-maker. I have personally spent 60 minutes of critical care time in the direct management of this patient. This is a life/limb threatening event. This includes time spent evaluating patient, direct bedside care, chart review, placing orders, interpretation of diagnostic studies, discussion with consultants, patient, and/or family members regarding treatment decisions, as well as other required patient management activities. This time is exclusive of all separately billable procedures, and teaching time and separate from and in addition to any other critical care service time. Subjective No overnight events., Decreased oxygen requirements on ventilator. Physical Exam Vital Signs (Past 24 Hours): Last Vital Signs Temp 37 C 07/01/18 16:14 Pulse 80 07/02/18 07:01 Resp 18 07/02/18 06:53 BP 127/61 07/02/18 07:00 Pulse Ox 94 07/02/18 07:01 General: Alert. nontoxic. Skin: Warm, dry, Head: Atraumatic Ears, nose, mouth and throat: Obscured by endotracheal tube Cardiovascular: Normal peripheral perfusion Respiratory: Coarse sounds bilaterally Gastrointestinal: Non distended Musculoskeletal: No deformity Results & Data Laboratory Results 07/02/18 07/02/18 07/02/18 Range/Units 08:42 08:42 08:10 WBC 9.28 (4.8-10.8) K/uL RBC 3.50 L (4.2-5.4) M/uL Hgb 9.6 L (12.0-16.0) g/dL POC Hgb (12.0-16.0) g/dl Hct 29.2 L (37-47) % POC Hct (37-47) % MCV 83.4 (80-100) fL MCH 27.4 (25-34) pg MCHC 32.9 (32-36) g/dL RDW Std Deviation 46.8 H (36.4-46.3) fL RDW Coeff of Braeden 15.2 H (11.5-14.5) % Plt Count 110 L (130-400) K/uL MPV 10.5 H (7.4-10.4) fL Immature Gran % (Auto) 0.2 % Neut % (Auto) 85.2 % Lymph % (Auto) 11.4 % Hamilton % (Auto) 2.9 % Eos % (Auto) 0.0 % Baso % (Auto) 0.3 % Immature Gran # (Auto) 0.02 (0.00-0.02) K/uL Neut # (Auto) 7.90 H (1.4-6.5) K/uL Lymph # (Auto) 1.06 L (1.2-3.4) K/uL Hamilton # (Auto) 0.27 (0.11-0.59) K/uL Eos # (Auto) 0.00 (0-0.5) K/uL Baso # (Auto) 0.03 (0-0.2) K/uL PT (9.0-12.0) Seconds INR (0.9-1.1) APTT (21.0-31.0) Seconds PTT Ratio Sample Site POC pH POC pCO2 POC pO2 POC HCO3 POC Total CO2 POC Base Excess POC O2 Saturation ABG pH (7.35-7.45) ABG pCO2 (35-46) mmHg ABG pO2 (80-95) mm/Hg ABG HCO3 (19-24) mmol/L POC ABG O2 Sat (90-95) % ABG O2 Saturation (90-95) % ABG Base Excess (-9-1.8) mEq/L Kvaon Test Barometric Pressure mm/Hg Oxygen Given O2 Delivery Device POC O2 Rate Minute Ventilation POC FiO2 % Tidal Volume PEEP POC Sodium (135-144) mEq/L Sodium 139 (136-145) mmol/L POC Potassium (3.3-5.0) mEq/L Potassium 3.5 (3.5-5.1) mmol/L Chloride 104 (98-107) mmol/L Carbon Dioxide 26 (21-32) mmol/L Anion Gap 9.0 (3-11) BUN 63 H (7-18) mg/dl Creatinine 3.01 H D (0.6-1.2) mg/dl Est Cr Clr Drug Dosing 25.6 ml/min Est GFR ( Amer) 18.5 Est GFR (Non-Af Amer) 15.9 BUN/Creatinine Ratio 20.8 H (10-20) Glucose 182 H (70-99) mg/dl POC Glucose 209 H (70-99) Lactate (0.4-2.0) mmol/L Calcium 8.7 (8.5-10.1) mg/dl Phosphorus (2.5-4.9) mg/dl Magnesium 2.3 (1.8-2.4) mg/dl Troponin I (0-0.045) ng/ml Nasal Screen MRSA (PCR) (Negative) Influenza Type A (PCR) (Neg) Influenza Type B (PCR) (Neg) 07/02/18 07/02/18 07/02/18 Range/Units 06:11 04:57 04:57 WBC (4.8-10.8) K/uL RBC (4.2-5.4) M/uL Hgb (12.0-16.0) g/dL POC Hgb (12.0-16.0) g/dl Hct (37-47) % POC Hct (37-47) % MCV (80-100) fL MCH (25-34) pg MCHC (32-36) g/dL RDW Std Deviation (36.4-46.3) fL RDW Coeff of Braeden (11.5-14.5) % Plt Count (130-400) K/uL MPV (7.4-10.4) fL Immature Gran % (Auto) % Neut % (Auto) % Lymph % (Auto) % Hamilton % (Auto) % Eos % (Auto) % Baso % (Auto) % Immature Gran # (Auto) (0.00-0.02) K/uL Neut # (Auto) (1.4-6.5) K/uL Lymph # (Auto) (1.2-3.4) K/uL Hamilton # (Auto) (0.11-0.59) K/uL Eos # (Auto) (0-0.5) K/uL Baso # (Auto) (0-0.2) K/uL PT (9.0-12.0) Seconds INR (0.9-1.1) APTT (21.0-31.0) Seconds PTT Ratio Sample Site Art Line POC pH 7.37 POC pCO2 39 POC pO2 66 L POC HCO3 23 POC Total CO2 24 POC Base Excess -3.0 POC O2 Saturation ABG pH 7.38 (7.35-7.45) ABG pCO2 40 (35-46) mmHg ABG pO2 78 L (80-95) mm/Hg ABG HCO3 23 (19-24) mmol/L POC ABG O2 Sat 92.0 (90-95) % ABG O2 Saturation 94.9 (90-95) % ABG Base Excess -2.0 (-9-1.8) mEq/L Kavon Test NA Pos Barometric Pressure 730.6 mm/Hg Oxygen Given 50% FiO2 O2 Delivery Device Ventilator POC O2 Rate 18 Minute Ventilation 8.7 POC FiO2 40 % Tidal Volume 500 PEEP 16 POC Sodium (135-144) mEq/L Sodium (136-145) mmol/L POC Potassium (3.3-5.0) mEq/L Potassium (3.5-5.1) mmol/L Chloride (98-107) mmol/L Carbon Dioxide (21-32) mmol/L Anion Gap (3-11) BUN (7-18) mg/dl Creatinine (0.6-1.2) mg/dl Est Cr Clr Drug Dosing ml/min Est GFR ( Amer) Est GFR (Non-Af Amer) BUN/Creatinine Ratio (10-20) Glucose (70-99) mg/dl POC Glucose (70-99) Lactate 1.0 (0.4-2.0) mmol/L Calcium (8.5-10.1) mg/dl Phosphorus (2.5-4.9) mg/dl Magnesium (1.8-2.4) mg/dl Troponin I (0-0.045) ng/ml Nasal Screen MRSA (PCR) (Negative) Influenza Type A (PCR) (Neg) Influenza Type B (PCR) (Neg) 07/02/18 07/02/18 07/02/18 Range/Units 04:57 04:30 00:56 WBC (4.8-10.8) K/uL RBC (4.2-5.4) M/uL Hgb (12.0-16.0) g/dL POC Hgb (12.0-16.0) g/dl Hct (37-47) % POC Hct (37-47) % MCV (80-100) fL MCH (25-34) pg MCHC (32-36) g/dL RDW Std Deviation (36.4-46.3) fL RDW Coeff of Braeden (11.5-14.5) % Plt Count (130-400) K/uL MPV (7.4-10.4) fL Immature Gran % (Auto) % Neut % (Auto) % Lymph % (Auto) % Hamilton % (Auto) % Eos % (Auto) % Baso % (Auto) % Immature Gran # (Auto) (0.00-0.02) K/uL Neut # (Auto) (1.4-6.5) K/uL Lymph # (Auto) (1.2-3.4) K/uL Hamilton # (Auto) (0.11-0.59) K/uL Eos # (Auto) (0-0.5) K/uL Baso # (Auto) (0-0.2) K/uL PT (9.0-12.0) Seconds INR (0.9-1.1) APTT (21.0-31.0) Seconds PTT Ratio Sample Site POC pH POC pCO2 POC pO2 POC HCO3 POC Total CO2 POC Base Excess POC O2 Saturation ABG pH (7.35-7.45) ABG pCO2 (35-46) mmHg ABG pO2 (80-95) mm/Hg ABG HCO3 (19-24) mmol/L POC ABG O2 Sat (90-95) % ABG O2 Saturation (90-95) % ABG Base Excess (-9-1.8) mEq/L Kavon Test Barometric Pressure mm/Hg Oxygen Given O2 Delivery Device POC O2 Rate Minute Ventilation POC FiO2 % Tidal Volume PEEP POC Sodium (135-144) mEq/L Sodium (136-145) mmol/L POC Potassium (3.3-5.0) mEq/L Potassium (3.5-5.1) mmol/L Chloride (98-107) mmol/L Carbon Dioxide (21-32) mmol/L Anion Gap (3-11) BUN (7-18) mg/dl Creatinine (0.6-1.2) mg/dl Est Cr Clr Drug Dosing ml/min Est GFR ( Amer) Est GFR (Non-Af Amer) BUN/Creatinine Ratio (10-20) Glucose (70-99) mg/dl POC Glucose 220 H 216 H (70-99) Lactate (0.4-2.0) mmol/L Calcium (8.5-10.1) mg/dl Phosphorus 4.8 D (2.5-4.9) mg/dl Magnesium (1.8-2.4) mg/dl Troponin I (0-0.045) ng/ml Nasal Screen MRSA (PCR) (Negative) Influenza Type A (PCR) (Neg) Influenza Type B (PCR) (Neg) 07/01/18 07/01/18 07/01/18 Range/Units 23:14 23:08 22:10 WBC (4.8-10.8) K/uL RBC (4.2-5.4) M/uL Hgb (12.0-16.0) g/dL POC Hgb (12.0-16.0) g/dl Hct (37-47) % POC Hct (37-47) % MCV (80-100) fL MCH (25-34) pg MCHC (32-36) g/dL RDW Std Deviation (36.4-46.3) fL RDW Coeff of Braeden (11.5-14.5) % Plt Count (130-400) K/uL MPV (7.4-10.4) fL Immature Gran % (Auto) % Neut % (Auto) % Lymph % (Auto) % Hamilton % (Auto) % Eos % (Auto) % Baso % (Auto) % Immature Gran # (Auto) (0.00-0.02) K/uL Neut # (Auto) (1.4-6.5) K/uL Lymph # (Auto) (1.2-3.4) K/uL Hamilton # (Auto) (0.11-0.59) K/uL Eos # (Auto) (0-0.5) K/uL Baso # (Auto) (0-0.2) K/uL PT (9.0-12.0) Seconds INR (0.9-1.1) APTT (21.0-31.0) Seconds PTT Ratio Sample Site Art Line POC pH 7.25 L POC pCO2 55 H POC pO2 80 POC HCO3 24 POC Total CO2 26 POC Base Excess -3.0 POC O2 Saturation ABG pH (7.35-7.45) ABG pCO2 (35-46) mmHg ABG pO2 (80-95) mm/Hg ABG HCO3 (19-24) mmol/L POC ABG O2 Sat 94.0 (90-95) % ABG O2 Saturation (90-95) % ABG Base Excess (-9-1.8) mEq/L Kavon Test NA Barometric Pressure mm/Hg Oxygen Given O2 Delivery Device Ventilator POC O2 Rate 18 Minute Ventilation 8.1 POC FiO2 80 % Tidal Volume 500 PEEP 16 POC Sodium (135-144) mEq/L Sodium (136-145) mmol/L POC Potassium (3.3-5.0) mEq/L Potassium (3.5-5.1) mmol/L Chloride (98-107) mmol/L Carbon Dioxide (21-32) mmol/L Anion Gap (3-11) BUN (7-18) mg/dl Creatinine (0.6-1.2) mg/dl Est Cr Clr Drug Dosing ml/min Est GFR ( Amer) Est GFR (Non-Af Amer) BUN/Creatinine Ratio (10-20) Glucose (70-99) mg/dl POC Glucose (70-99) Lactate 0.9 (0.4-2.0) mmol/L Calcium (8.5-10.1) mg/dl Phosphorus (2.5-4.9) mg/dl Magnesium (1.8-2.4) mg/dl Troponin I (0-0.045) ng/ml Nasal Screen MRSA (PCR) Cancelled (Negative) Influenza Type A (PCR) (Neg) Influenza Type B (PCR) (Neg) 07/01/18 07/01/18 07/01/18 Range/Units 18:40 17:44 17:32 WBC (4.8-10.8) K/uL RBC (4.2-5.4) M/uL Hgb (12.0-16.0) g/dL POC Hgb (12.0-16.0) g/dl Hct (37-47) % POC Hct (37-47) % MCV (80-100) fL MCH (25-34) pg MCHC (32-36) g/dL RDW Std Deviation (36.4-46.3) fL RDW Coeff of Braeden (11.5-14.5) % Plt Count (130-400) K/uL MPV (7.4-10.4) fL Immature Gran % (Auto) % Neut % (Auto) % Lymph % (Auto) % Hamilton % (Auto) % Eos % (Auto) % Baso % (Auto) % Immature Gran # (Auto) (0.00-0.02) K/uL Neut # (Auto) (1.4-6.5) K/uL Lymph # (Auto) (1.2-3.4) K/uL Hamilton # (Auto) (0.11-0.59) K/uL Eos # (Auto) (0-0.5) K/uL Baso # (Auto) (0-0.2) K/uL PT 10.9 (9.0-12.0) Seconds INR 1.1 (0.9-1.1) APTT 27.1 (21.0-31.0) Seconds PTT Ratio 1.0 Sample Site POC pH POC pCO2 POC pO2 POC HCO3 POC Total CO2 POC Base Excess POC O2 Saturation ABG pH (7.35-7.45) ABG pCO2 (35-46) mmHg ABG pO2 (80-95) mm/Hg ABG HCO3 (19-24) mmol/L POC ABG O2 Sat (90-95) % ABG O2 Saturation (90-95) % ABG Base Excess (-9-1.8) mEq/L Kavon Test Barometric Pressure mm/Hg Oxygen Given O2 Delivery Device POC O2 Rate Minute Ventilation POC FiO2 % Tidal Volume PEEP POC Sodium (135-144) mEq/L Sodium (136-145) mmol/L POC Potassium (3.3-5.0) mEq/L Potassium (3.5-5.1) mmol/L Chloride (98-107) mmol/L Carbon Dioxide (21-32) mmol/L Anion Gap (3-11) BUN (7-18) mg/dl Creatinine (0.6-1.2) mg/dl Est Cr Clr Drug Dosing ml/min Est GFR ( Amer) Est GFR (Non-Af Amer) BUN/Creatinine Ratio (10-20) Glucose (70-99) mg/dl POC Glucose 211 H (70-99) Lactate (0.4-2.0) mmol/L Calcium (8.5-10.1) mg/dl Phosphorus (2.5-4.9) mg/dl Magnesium (1.8-2.4) mg/dl Troponin I (0-0.045) ng/ml Nasal Screen MRSA (PCR) (Negative) Influenza Type A (PCR) Neg for Influ A (Neg) Influenza Type B (PCR) Neg for Influ B (Neg) 07/01/18 07/01/18 07/01/18 Range/Units 17:32 17:21 17:15 WBC (4.8-10.8) K/uL RBC (4.2-5.4) M/uL Hgb (12.0-16.0) g/dL POC Hgb 9.5 L (12.0-16.0) g/dl Hct (37-47) % POC Hct 28 L (37-47) % MCV (80-100) fL MCH (25-34) pg MCHC (32-36) g/dL RDW Std Deviation (36.4-46.3) fL RDW Coeff of Braeden (11.5-14.5) % Plt Count (130-400) K/uL MPV (7.4-10.4) fL Immature Gran % (Auto) % Neut % (Auto) % Lymph % (Auto) % Hamilton % (Auto) % Eos % (Auto) % Baso % (Auto) % Immature Gran # (Auto) (0.00-0.02) K/uL Neut # (Auto) (1.4-6.5) K/uL Lymph # (Auto) (1.2-3.4) K/uL Hamilton # (Auto) (0.11-0.59) K/uL Eos # (Auto) (0-0.5) K/uL Baso # (Auto) (0-0.2) K/uL PT (9.0-12.0) Seconds INR (0.9-1.1) APTT (21.0-31.0) Seconds PTT Ratio Sample Site Art Line POC pH Pending POC pCO2 Pending POC pO2 Pending POC HCO3 Pending POC Total CO2 Pending POC Base Excess Pending POC O2 Saturation 92 ABG pH (7.35-7.45) ABG pCO2 (35-46) mmHg ABG pO2 (80-95) mm/Hg ABG HCO3 (19-24) mmol/L POC ABG O2 Sat (90-95) % ABG O2 Saturation (90-95) % ABG Base Excess (-9-1.8) mEq/L Kavon Test NA Barometric Pressure mm/Hg Oxygen Given O2 Delivery Device Ventilator POC O2 Rate 18 Minute Ventilation 9 POC FiO2 100 % Tidal Volume 500 PEEP 12 POC Sodium 138 (135-144) mEq/L Sodium (136-145) mmol/L POC Potassium 3.2 L (3.3-5.0) mEq/L Potassium (3.5-5.1) mmol/L Chloride (98-107) mmol/L Carbon Dioxide (21-32) mmol/L Anion Gap (3-11) BUN (7-18) mg/dl Creatinine (0.6-1.2) mg/dl Est Cr Clr Drug Dosing ml/min Est GFR ( Amer) Est GFR (Non-Af Amer) BUN/Creatinine Ratio (10-20) Glucose (70-99) mg/dl POC Glucose (70-99) Lactate 1.7 (0.4-2.0) mmol/L Calcium (8.5-10.1) mg/dl Phosphorus (2.5-4.9) mg/dl Magnesium (1.8-2.4) mg/dl Troponin I (0-0.045) ng/ml Nasal Screen MRSA (PCR) Negative (Negative) Influenza Type A (PCR) (Neg) Influenza Type B (PCR) (Neg) 07/01/18 07/01/18 Range/Units 14:51 12:07 WBC (4.8-10.8) K/uL RBC (4.2-5.4) M/uL Hgb (12.0-16.0) g/dL POC Hgb (12.0-16.0) g/dl Hct (37-47) % POC Hct (37-47) % MCV (80-100) fL MCH (25-34) pg MCHC (32-36) g/dL RDW Std Deviation (36.4-46.3) fL RDW Coeff of Braeden (11.5-14.5) % Plt Count (130-400) K/uL MPV (7.4-10.4) fL Immature Gran % (Auto) % Neut % (Auto) % Lymph % (Auto) % Hamilton % (Auto) % Eos % (Auto) % Baso % (Auto) % Immature Gran # (Auto) (0.00-0.02) K/uL Neut # (Auto) (1.4-6.5) K/uL Lymph # (Auto) (1.2-3.4) K/uL Hamilton # (Auto) (0.11-0.59) K/uL Eos # (Auto) (0-0.5) K/uL Baso # (Auto) (0-0.2) K/uL PT (9.0-12.0) Seconds INR (0.9-1.1) APTT (21.0-31.0) Seconds PTT Ratio Sample Site POC pH POC pCO2 POC pO2 POC HCO3 POC Total CO2 POC Base Excess POC O2 Saturation ABG pH (7.35-7.45) ABG pCO2 (35-46) mmHg ABG pO2 (80-95) mm/Hg ABG HCO3 (19-24) mmol/L POC ABG O2 Sat (90-95) % ABG O2 Saturation (90-95) % ABG Base Excess (-9-1.8) mEq/L Kavon Test Barometric Pressure mm/Hg Oxygen Given O2 Delivery Device POC O2 Rate Minute Ventilation POC FiO2 % Tidal Volume PEEP POC Sodium (135-144) mEq/L Sodium (136-145) mmol/L POC Potassium (3.3-5.0) mEq/L Potassium (3.5-5.1) mmol/L Chloride (98-107) mmol/L Carbon Dioxide (21-32) mmol/L Anion Gap (3-11) BUN (7-18) mg/dl Creatinine (0.6-1.2) mg/dl Est Cr Clr Drug Dosing ml/min Est GFR ( Amer) Est GFR (Non-Af Amer) BUN/Creatinine Ratio (10-20) Glucose (70-99) mg/dl POC Glucose 322 H (70-99) Lactate (0.4-2.0) mmol/L Calcium (8.5-10.1) mg/dl Phosphorus (2.5-4.9) mg/dl Magnesium (1.8-2.4) mg/dl Troponin I 0.553 H* (0-0.045) ng/ml Nasal Screen MRSA (PCR) (Negative) Influenza Type A (PCR) (Neg) Influenza Type B (PCR) (Neg) Diagnostic Findings Reviewed CT scan of chest
[2018-07-02] MEDS: ALBUT/IPRATROP 3MG/0.5MG NEB 3 ML VIAL NEB SCH ×4 (07:54→20:00)
[2018-07-02] MEDS: ATORVASTATIN 40 MG TAB PO SCH (08:27)
[2018-07-02] MEDS: CLOPIDOGREL BISULFATE 75 MG TAB PO SCH (08:27)
[2018-07-02] MEDS: NOREPINEPHRINE BIT INJ 8 MG in DEXTROSE 5% 500 ML IV SCH ×2 (08:29→20:09)
[2018-07-02 08:53] LABS: Hematocrit (blood only) 29.2 % (37-47); Hemoglobin 9.6 g/dL (12.0-16.0); Mean Corpuscular Hgb Conc 32.9 g/dL (32-36); Mean Corpuscular Volume 83.4 fL (80-100); Mean Platelet Volume 10.5 fL (7.4-10.4); Platelet Count 110 K/uL (130-400); RDW Coefficient of Variation 15.2 % (11.5-14.5); RDW Standard Deviation 46.8 fL (36.4-46.3); White Blood Count 9.28 K/uL (4.8-10.8)
[2018-07-02] MEDS ORDERED: INSULIN GLARGINE SOLOSTAR 100 UNITS/ML 3 ML PEN SC SCH ×2 (09:00)
[2018-07-02] MEDS: CARVEDILOL 25 MG TAB PO SCH ×2 (09:08→20:40)
[2018-07-02 09:19] LABS: BUN Creatinine Ratio 20.8 (10-20); Calcium 8.7 mg/dl (8.5-10.1); Creatinine Clr Calc Pharmacy 25.6 ml/min; Est GFR (African American) 18.5; Est GFR (Non-African American) 15.9; Magnesium 2.3 mg/dl (1.8-2.4); Potassium 3.5 mmol/L (3.5-5.1)
[2018-07-02 09:27] LABS: Basophils # (auto) 0.03 K/uL (0-0.2); Basophils % (auto) 0.3 %; Immature Granulocytes # (auto) 0.02 K/uL (0.00-0.02); Immature Granulocytes % (auto) 0.2 %; Lymphocytes # (auto) 1.06 K/uL (1.2-3.4); Lymphocytes % (auto) 11.4 %; Monocytes # (auto) 0.27 K/uL (0.11-0.59); Monocytes % (auto) 2.9 %; Neutrophils % (auto) 85.2 %
[2018-07-02] MEDS ORDERED: SODIUM CHLORIDE 0.9% 500 ML IV SCH (09:45)
[2018-07-02] MEDS: SODIUM CHLORIDE 0.9% 1000ML 1,000 ML IV SCH (10:34)
--- NOTE | 2018-07-02 10:55 | Pharmacy Report ---
Pharmacy Glycemic Short Note 2 - Date of Service July 02, 2018 - Glycemic Short BSG Results (Last 24 hours): 07/01/18 07/01/18 07/02/18 12:07 17:44 00:56 Glucose POC Glucose 322 H 211 H 216 H 07/02/18 07/02/18 07/02/18 04:30 08:10 08:42 Glucose 182 H POC Glucose 220 H 209 H OUTPATIENT ANTIDIABETIC REGIMEN: * N/A * HbA1c: 8.1% (04/26/18) ASSESSMENT: * Patient now intubated and paralyzed. Stress likely contributing to hyperglycemia * patient received 56 units of insulin yesterday * Discussed with project systems engineer and bedside nurse; Will give a weight based stress of two this morning and conservative lantus scale this evening as patient not on outpatient meds, poor renal function, and as stressors decrease PLAN FOR INPATIENT GLYCEMIC CONTROL: * Basal insulin * Lantus 15 units SQ this morning * Lantus scale this evening (0, 5 or 10 units absed on BSG) * Bolus insulin * NovoLog per scale Q4hrs while NPO * Goal Range: Low 120 mg/dL - High 150 mg/dL * Correction Factor: 20 mg/dL/unit * Nutritional / Prandial insulin per carb ratio of 1 unit per 7 grams CHO consumed PLAN FOR DISCHARGE: *
--- NOTE | 2018-07-02 11:05 | Ultrasound Report ---
RENAL ULTRASOUND CLINICAL HISTORY: Acute renal failure. COMPARISON STUDY: None. TECHNIQUE: Sonography of the kidneys and the urinary bladder was performed. FINDINGS: The right kidney measures 13.6 cm in maximal dimension and the left measures 13.7 cm. There is no hydronephrosis. No calculi or masses are identified by sonography. Mild left renal cortical th inning is noted. Laws balloon is present within the bladder. The gallbladder is filled with stones a nd sludge. There is borderline gallbladder wall thickening. The wall measures 3 mm in thickness. Trac e pericholecystic fluid is noted. IMPRESSION: 1. No hydronephrosis. Mild left renal cortical thinning. 2. Gallbladder filled with stones and sludge. Borderline gallbladder wall thickening with trace peric holecystic fluid. No significant gallbladder distention. Electronically signed by: Jonathan An M.D. 07/02/2018 11:03 AM
[2018-07-02] MEDS: AZITHROMYCIN 250 MG in DEXTROSE 5% 250 ML IV SCH (11:40)
[2018-07-02] MEDS: PANTOprazole 40 MG in SYRINGE 0 ML IV SCH (11:40)
[2018-07-02] MEDS ORDERED: VANCOMYCIN HCL 1,500 MG in SODIUM CHLORIDE 0.9% 500 ML IV SCH (12:00)
[2018-07-02] MEDS: PEPTAMEN INTENSE VHP 1.0 CAL 1,000 ML BAG OG SCH (13:49)
[2018-07-02 13:59] LABS: Appearance Urine Cloudy (Clear); Bacteria Urine Automated Negative (Negative); Bilirubin Urine Negative (Negative); Blood Urine 2+ (Negative); Color Urine Yellow; Epithelial Cell Urine Auto >30 /lpf (0-5); Glucose Urine UA Negative (Negative); Ketones Urine Negative (Negative); Leukocyte Esterase Urine Negative (Negative); Nitrite Urine Negative (Negative); Protein Urine 2+ (Negative); Specific Gravity Urine 1.032 (1.000-1.030); Urobilinogen Urine Negative (Negative)
--- NOTE | 2018-07-02 14:12 | Nephrology Consultation ---
Date of Consultation July 02, 2018 Assessment & Plan (1) Acute kidney injury: -- Clinically consistent with ATN associated with sepsis, severe hypoxia, iodinated contrast, and JEANETTE inhibitor use at home. -- UA/microscopy notable for granular and hyaline cast. Also notable for proteinuria 4+ which is a somewhat chronic fidning. +WBC and +RBC. -- Cannot completely exclude acute GN but presentation would be unusual, will repeat UA/microscopy tomorrow. Recent pulmonary symptoms including sinus and hemoptysis may be associated with vasculitis but imaging more consistent with infection and ARDS. Hemoglobin slightly decreased from 12 to 9.6. Platelets decreased from 165 to 110. No other evidence of TMA which would also be considered unlikely. -- Non oliguric. -- Volume status is acceptable. -- Metabolic profile is acceptable and there is no current indication for dialysis. -- Continue to document I/O's and monitor metabolic profile daily. -- Medicaitons are appropriate for kidney function. -- Hold JEANETTE and aldactone. 35 minutes of critical care time spent with patient today. (2) Multifocal pneumonia: (3) CKD (chronic kidney disease), stage III: Baseline creatinine ~1.3 mg/dL. Baseline A4 proteinuria, 2.8 g/g random sample in November. This may be attributed to diabetic nephropathy and possible sFSGS. (4) Hypertension: (5) Proteinuria: No significantly edematous. Hypoalbuminemia is new. BP was accelerated on admission is now improved. Patient does not have classic nephrotic syndrome but may have nephrotic range proteinuria. I will quantify with a 24 hour collection. History of Present Illness Reason for Consultation: Acute renal insufficiency, proteinuria, Requesting Physician: Mariaa Alarcon MD Attending Physician: Mariaa Alarcon MD History of Present Illness Mrs. Delfina Reyna is a 62-year-old female with obesity, hypertension, uncontrolled diabetes mellitus II, hyperlipidemia, and CKD. Diabetes mellitus has been longstanding and poorly controlled. Most recent Hgb A1c had improved from 12.4 to 8.1%. She has associated retinopathy, neuropathy, and CKD. The patient's baseline creatinine is approximately 1.3 mg/dL. She has lognstanding proteinuria previously attributed to diabetes mellitus. Records indicated 4+ protein on dipstick dating back to November 2017. Proteinuria was assessed at 2800 mg/gm in November 2017. She has never been previously evaluated by a geosciences professor. Medical history is also notable for a history of systolic dysfunction with an EF <20% that was suspected to be viral or medication (Avandia?) induced. LVEF improved to >50% on most recent assessment. She has followed in the cardiology clinic with Dr. Montes. Cardiac catheterization in 2009 demonstrated mild diffuse coronary artery disease. She presented to [facility] on June 30 with shortness of breath, cough with hemoptysis, and fevers. Delfina had been suffering from symptoms of an URI or sinus infection for several weeks prior to presentation. A course of amoxicillin was recently prescribed prior to presentation. She developed some GI symptoms including nausea and loose stool attributed to the medication. She was febriled with tachycardiac, increased respiratory rate and slight leukocytosis on admission. CXR and non contrast CT scan demonstrated significant multifocal airspace opacities. Admiting diagnosis was multifocal pneumonia with sepsis. Inf luenza testing negative. Initial treatment included azithromycin and ceftriaxone. Unfortunately, respiratory status continued to decline. Mechanical ventilation was started following intubation yesterday for acute hypoxic respiratory failure and ARDS. Bronchial washing were sent for culture. Blood and urine cultures have been negative to date. She is now being treated with vancomycin, Zosyn, and zithromax. CTA was obtained to exclude PE. Oxygenation improved. Currently on 30% FIO2. She remains sedated. Medical history was obtained from review of the records and discussion with Dr. Alarcon and nursing staff. Creatinine is rising but Delfina remains non oliguric. Laws is draining clear yellow urine. Blood pressure is acceptable. Lisinopril and spironolactone have been held since admission. Allergies Allergy/AdvReac Type Severity Reaction Status Date / Time [facility] [[facility] Allergy Hives Unverified 06/30/18 13:27 erythromycin base AdvReac Intermediate VOMITTING Unverified 06/30/18 13:27 Home Medications Home Medications Medication Instructions Recorded Confirmed Type amoxicillin 500 mg PO QID 06/30/18 06/30/18 History atorvastatin 80 mg PO DAILY 06/30/18 06/30/18 History carvedilol [Coreg] 25 mg PO BID 06/30/18 06/30/18 History clobetasol 1 applic TOPICAL DIRECTED PRN 06/30/18 06/30/18 History clopidogrel [Plavix] 75 mg PO DAILY 06/30/18 06/30/18 History fluticasone propionate [Flonase 2 spray INTRANASAL QAM 06/30/18 06/30/18 History Allergy Relief] lisinopril 20 mg PO DAILY 06/30/18 06/30/18 History lisinopril-hydrochlorothiazide 1 tab PO DAILY 06/30/18 06/30/18 History spironolactone 25 mg PO DAILY 06/30/18 06/30/18 History Patient History Medical History CHF (congestive heart failure) Diabetes Hypertension Surgical History S/P cardiac catheterization Family History Other Coronary heart disease Social History Communication Ability: Impaired Beliefs That Will Affect Care: None Current Living Situation: Spouse Other Information That Helps Us Care for You: No Feels Safe at Home: Yes Safety Concerns: Feels Safe At This Time Smoking Status: Never smoker Hx Alcohol Use: Yes Hx Substance Use: No Review of Systems unable to obtain due to mental status Physical Exam Vital Signs (Past 24 Hours): Last Vital Signs Temp 38.4 C H 07/02/18 13:31 Pulse 79 07/02/18 13:31 Resp 19 07/02/18 10:30 BP 122/61 07/02/18 13:30 Pulse Ox 92 07/02/18 13:31 Constitutional: + obese; no acute distress and not edematous Eyes: no scleral abnormality and no corneal abnormality ENMT: ETT, normal mucosa Neck: trachea midline and + thick neck Respiratory: Auscultation: + rales and + rhonchi Cardiovascular: Heart Sounds: normal S1 and normal S2; no murmur Vessels: + JVD Extremities: no edema Gastrointestinal (Abdomen): Inspection/Auscultation: + abdomen distended and normal bowel sounds Percussion/Palpation: abdomen soft Musculoskeletal: Extremities: no cyanosis, no clubbing and no petechiae Skin: no rashes Neurologic: sedated and paralyzed Genitourinary: Laws draining clear yellow urine Results & Data Laboratory Results Laboratory Results - last 24 hr 07/01/18 07/01/18 07/01/18 14:51 17:15 17:21 WBC RBC Hgb POC Hgb 9.5 L Hct POC Hct 28 L MCV MCH MCHC RDW Std Deviation RDW Coeff of Braeden Plt Count MPV Immature Gran % (Auto) Neut % (Auto) Lymph % (Auto) [place] % (Auto) Eos % (Auto) Baso % (Auto) Immature Gran # (Auto) Neut # (Auto) Lymph # (Auto) [place] # (Auto) Eos # (Auto) Baso # (Auto) PT INR APTT PTT Ratio Sample Site Art Line POC pH POC pCO2 POC pO2 POC HCO3 POC Total CO2 POC Base Excess POC O2 Saturation 92 ABG pH ABG pCO2 ABG pO2 ABG HCO3 POC ABG O2 Sat ABG O2 Saturation ABG Base Excess Kavon Test NA Barometric Pressure Oxygen Given O2 Delivery Device Ventilator POC O2 Rate 18 Minute Ventilation 9 POC FiO2 100 Tidal Volume 500 PEEP 12 POC Sodium 138 Sodium POC Potassium 3.2 L Potassium Chloride Carbon Dioxide Anion Gap BUN Creatinine Est Cr Clr Drug Dosing Est GFR ( Amer) Est GFR (Non-Af Amer) BUN/Creatinine Ratio Glucose POC Glucose Lactate Calcium Phosphorus Magnesium Troponin I 0.553 H* Urine Color Urine Appearance Urine pH Ur Specific [place] Urine Protein Urine Glucose (UA) Urine Ketones Urine Blood Urine Nitrite Urine Bilirubin Urine Urobilinogen Ur Leukocyte Esterase Urine WBC (Auto) Urine RBC (Auto) U Hyaline Cast (Auto) U Epithel Cells (Auto) Urine Bacteria (Auto) Nasal Screen MRSA (PCR) Negative Influenza Type A (PCR) Influenza Type B (PCR) 07/01/18 07/01/18 07/01/18 17:32 17:32 17:44 WBC RBC Hgb POC Hgb Hct POC Hct MCV MCH MCHC RDW Std Deviation RDW Coeff of Braeden Plt Count MPV Immature Gran % (Auto) Neut % (Auto) Lymph % (Auto) [place] % (Auto) Eos % (Auto) Baso % (Auto) Immature Gran # (Auto) Neut # (Auto) Lymph # (Auto) [place] # (Auto) Eos # (Auto) Baso # (Auto) PT 10.9 INR 1.1 APTT 27.1 PTT Ratio 1.0 Sample Site POC pH POC pCO2 POC pO2 POC HCO3 POC Total CO2 POC Base Excess POC O2 Saturation ABG pH ABG pCO2 ABG pO2 ABG HCO3 POC ABG O2 Sat ABG O2 Saturation ABG Base Excess Kavon Test Barometric Pressure Oxygen Given O2 Delivery Device POC O2 Rate Minute Ventilation POC FiO2 Tidal Volume PEEP POC Sodium Sodium POC Potassium Potassium Chloride Carbon Dioxide Anion Gap BUN Creatinine Est Cr Clr Drug Dosing Est GFR ( Amer) Est GFR (Non-Af Amer) BUN/Creatinine Ratio Glucose POC Glucose 211 H Lactate 1.7 Calcium Phosphorus Magnesium Troponin I Urine Color Urine Appearance Urine pH Ur Specific [place] Urine Protein Urine Glucose (UA) Urine Ketones Urine Blood Urine Nitrite Urine Bilirubin Urine Urobilinogen Ur Leukocyte Esterase Urine WBC (Auto) Urine RBC (Auto) U Hyaline Cast (Auto) U Epithel Cells (Auto) Urine Bacteria (Auto) Nasal Screen MRSA (PCR) Influenza Type A (PCR) Influenza Type B (PCR) 07/01/18 07/01/18 07/01/18 18:40 22:10 23:08 WBC RBC Hgb POC Hgb Hct POC Hct MCV MCH MCHC RDW Std Deviation RDW Coeff of Braeden Plt Count MPV Immature Gran % (Auto) Neut % (Auto) Lymph % (Auto) [place] % (Auto) Eos % (Auto) Baso % (Auto) Immature Gran # (Auto) Neut # (Auto) Lymph # (Auto) [place] # (Auto) Eos # (Auto) Baso # (Auto) PT INR APTT PTT Ratio Sample Site POC pH POC pCO2 POC pO2 POC HCO3 POC Total CO2 POC Base Excess POC O2 Saturation ABG pH ABG pCO2 ABG pO2 ABG HCO3 POC ABG O2 Sat ABG O2 Saturation ABG Base Excess Kavon Test Barometric Pressure Oxygen Given O2 Delivery Device POC O2 Rate Minute Ventilation POC FiO2 Tidal Volume PEEP POC Sodium Sodium POC Potassium Potassium Chloride Carbon Dioxide Anion Gap BUN Creatinine Est Cr Clr Drug Dosing Est GFR ( Amer) Est GFR (Non-Af Amer) BUN/Creatinine Ratio Glucose POC Glucose Lactate 0.9 Calcium Phosphorus Magnesium Troponin I Urine Color Urine Appearance Urine pH Ur Specific [place] Urine Protein Urine Glucose (UA) Urine Ketones Urine Blood Urine Nitrite Urine Bilirubin Urine Urobilinogen Ur Leukocyte Esterase Urine WBC (Auto) Urine RBC (Auto) U Hyaline Cast (Auto) U Epithel Cells (Auto) Urine Bacteria (Auto) Nasal Screen MRSA (PCR) Cancelled Influenza Type A (PCR) Neg for Influ A Influenza Type B (PCR) Neg for Influ B 07/01/18 07/02/1807/02/19 23:14 00:56 04:30 WBC RBC Hgb POC Hgb Hct POC Hct MCV MCH MCHC RDW Std Deviation RDW Coeff of Braeden Plt Count MPV Immature Gran % (Auto) Neut % (Auto) Lymph % (Auto) [place] % (Auto) Eos % (Auto) Baso % (Auto) Immature Gran # (Auto) Neut # (Auto) Lymph # (Auto) [place] # (Auto) Eos # (Auto) Baso # (Auto) PT INR APTT PTT Ratio Sample Site Art Line POC pH 7.25 L POC pCO2 55 H POC pO2 80 POC HCO3 24 POC Total CO2 26 POC Base Excess -3.0 POC O2 Saturation ABG pH ABG pCO2 ABG pO2 ABG HCO3 POC ABG O2 Sat 94.0 ABG O2 Saturation ABG Base Excess Kavon Test NA Barometric Pressure Oxygen Given O2 Delivery Device Ventilator POC O2 Rate 18 Minute Ventilation 8.1 POC FiO2 80 Tidal Volume 500 PEEP 16 POC Sodium Sodium POC Potassium Potassium Chloride Carbon Dioxide Anion Gap BUN Creatinine Est Cr Clr Drug Dosing Est GFR ( Amer) Est GFR (Non-Af Amer) BUN/Creatinine Ratio Glucose POC Glucose 216 H 220 H Lactate Calcium Phosphorus Magnesium Troponin I Urine Color Urine Appearance Urine pH Ur Specific [place] Urine Protein Urine Glucose (UA) Urine Ketones Urine Blood Urine Nitrite Urine Bilirubin Urine Urobilinogen Ur Leukocyte Esterase Urine WBC (Auto) Urine RBC (Auto) U Hyaline Cast (Auto) U Epithel Cells (Auto) Urine Bacteria (Auto) Nasal Screen MRSA (PCR) Influenza Type A (PCR) Influenza Type B (PCR) 07/02/18 07/02/18 07/02/18 04:57 04:57 04:57 WBC RBC Hgb POC Hgb Hct POC Hct MCV MCH MCHC RDW Std Deviation RDW Coeff of Braeden Plt Count MPV Immature Gran % (Auto) Neut % (Auto) Lymph % (Auto) [place] % (Auto) Eos % (Auto) Baso % (Auto) Immature Gran # (Auto) Neut # (Auto) Lymph # (Auto) [place] # (Auto) Eos # (Auto) Baso # (Auto) PT INR APTT PTT Ratio Sample Site POC pH POC pCO2 POC pO2 POC HCO3 POC Total CO2 POC Base Excess POC O2 Saturation ABG pH 7.38 ABG pCO2 40 ABG pO2 78 L ABG HCO3 23 POC ABG O2 Sat ABG O2 Saturation 94.9 ABG Base Excess -2.0 Kavon Test Pos Barometric Pressure 730.6 Oxygen Given 50% FiO2 O2 Delivery Device POC O2 Rate Minute Ventilation POC FiO2 Tidal Volume PEEP POC Sodium Sodium POC Potassium Potassium Chloride Carbon Dioxide Anion Gap BUN Creatinine Est Cr Clr Drug Dosing Est GFR ( Amer) Est GFR (Non-Af Amer) BUN/Creatinine Ratio Glucose POC Glucose Lactate 1.0 Calcium Phosphorus 4.8 D Magnesium Troponin I Urine Color Urine Appearance Urine pH Ur Specific [place] Urine Protein Urine Glucose (UA) Urine Ketones Urine Blood Urine Nitrite Urine Bilirubin Urine Urobilinogen Ur Leukocyte Esterase Urine WBC (Auto) Urine RBC (Auto) U Hyaline Cast (Auto) U Epithel Cells (Auto) Urine Bacteria (Auto) Nasal Screen MRSA (PCR) Influenza Type A (PCR) Influenza Type B (PCR) 07/02/18 07/02/18 07/02/18 06:11 08:10 08:42 WBC 9.28 RBC 3.50 L Hgb 9.6 L POC Hgb Hct 29.2 L POC Hct MCV 83.4 MCH 27.4 MCHC 32.9 RDW Std Deviation 46.8 H RDW Coeff of Braeden 15.2 H Plt Count 110 L MPV 10.5 H Immature Gran % (Auto) 0.2 Neut % (Auto) 85.2 Lymph % (Auto) 11.4 [place] % (Auto) 2.9 Eos % (Auto) 0.0 Baso % (Auto) 0.3 Immature Gran # (Auto) 0.02 Neut # (Auto) 7.90 H Lymph # (Auto) 1.06 L [place] # (Auto) 0.27 Eos # (Auto) 0.00 Baso # (Auto) 0.03 PT INR APTT PTT Ratio Sample Site Art Line POC pH 7.37 POC pCO2 39 POC pO2 66 L POC HCO3 23 POC Total CO2 24 POC Base Excess -3.0 POC O2 Saturation ABG pH ABG pCO2 ABG pO2 ABG HCO3 POC ABG O2 Sat 92.0 ABG O2 Saturation ABG Base Excess Kavon Test NA Barometric Pressure Oxygen Given O2 Delivery Device Ventilator POC O2 Rate 18 Minute Ventilation 8.7 POC FiO2 40 Tidal Volume 500 PEEP 16 POC Sodium Sodium POC Potassium Potassium Chloride Carbon Dioxide Anion Gap BUN Creatinine Est Cr Clr Drug Dosing Est GFR ( Amer) Est GFR (Non-Af Amer) BUN/Creatinine Ratio Glucose POC Glucose 209 H Lactate Calcium Phosphorus Magnesium Troponin I Urine Color Urine Appearance Urine pH Ur Specific [place] Urine Protein Urine Glucose (UA) Urine Ketones Urine Blood Urine Nitrite Urine Bilirubin Urine Urobilinogen Ur Leukocyte Esterase Urine WBC (Auto) Urine RBC (Auto) U Hyaline Cast (Auto) U Epithel Cells (Auto) Urine Bacteria (Auto) Nasal Screen MRSA (PCR) Influenza Type A (PCR) Influenza Type B (PCR) 07/02/18 07/02/18 07/02/18 08:42 11:16 13:26 WBC RBC Hgb POC Hgb Hct POC Hct MCV MCH MCHC RDW Std Deviation RDW Coeff of Braed[place] Plt Count MPV Immature Gran % (Auto) Neut % (Auto) Lymph % (Auto) [place] % (Auto) Eos % (Auto) Baso % (Auto) Immature Gran # (Auto) Neut # (Auto) Lymph # (Auto) [place] # (Auto) Eos # (Auto) Baso # (Auto) PT INR APTT PTT Ratio Sample Site POC pH POC pCO2 POC pO2 POC HCO3 POC Total CO2 POC Base Excess POC O2 Saturation ABG pH ABG pCO2 ABG pO2 ABG HCO3 POC ABG O2 Sat ABG O2 Saturation ABG Base Excess [place]avon Test Barometric Pressure Oxygen Given O2 Delivery Device POC O2 Rate Minute Ventilation POC FiO2 Tidal Volume PEEP POC Sodium Sodium 139 POC Potassium Potassium 3.5 Chloride 104 Carbon Dioxide 26 Anion Gap 9.0 BUN 63 H Creatinine 3.01 H D Est Cr Clr Drug Dosing 25.6 Est GFR ( Amer) 18.5 Est GFR (Non-Af Amer) 15.9 BUN/Creatinine Ratio 20.8 H Glucose 182 H POC Glucose 179 H Lactate Calcium 8.7 Phosphorus Magnesium 2.3 Troponin I Urine Color Yellow Urine Appearance Cloudy H Urine pH 5.0 Ur Specific [place] 1.032 H Urine Protein 2+ H Urine Glucose (UA) Negative Urine Ketones Negative Urine Blood 2+ H Urine Nitrite Negative Urine Bilirubin Negative Urine Urobilinogen Negative Ur Leukocyte Esterase Negative Urine WBC (Auto) 5-10 H Urine RBC (Auto) 5-10 H U Hyaline Cast (Auto) 1-5 U Epithel Cells (Auto) >30 H Urine Bacteria (Auto) Negative Nasal Screen MRSA (PCR) Influenza Type A (PCR) Influenza Type B (PCR) Diagnostic Findings CT chest: extensive bilateral (R>L) ASO. TTE: Normal LV size and function. Moderate MR. (1) Hypertension Hypertension type: essential hypertension Qualified Code(s): I10 - Essential (primary) hypertension
--- NOTE | 2018-07-02 16:08 | Hospitalist Progress Note ---
Date of Service July 02, 2018 Assessment & Plan (1) Acute respiratory failure with hypoxia: - Developed acute respiratory failure requiring BiPAP on 07/01, now upgraded to ICU & intubated for worsening resp failure. - Likely related to severe multifocal PNA (viral vs. bacterial); CT chest was negative for PE. - Chest CT 06/30 showed severe multifocal PNA; repeat CT chest 07/01 with progression of PNA, reactive lymph nodes. - S/p bronch on 07/01, cultures are negative to date; may be related to viral illness. - Continue IV Zosyn, Azithromycin, Vancomycin IV for empiric coverage. - ICU and Pulmonary following for medical management. (2) Multifocal pneumonia: - Diagnosed with URI on 06/27 as outpatient, received prescription for Amoxicillin but was likely not taking at home due to N/V. - Chest imaging findings as noted above. - BNP elevated at 19,529; Procalcitonin and Influenza negative. - Zosyn, Azithromycin and Vancomycin for empiric coverage. - Duonebs scheduled QID. - Blood cultures are negative. - Pulmonary consulted, appreciate input. (3) Non-ischemic cardiomyopathy: - Now resolved per most recent TTE during this admission. - TTE showed EF 55-60%, no diastolic dysfunction noted. - Previous EF was 15% in setting of Avandia. (4) CHF (congestive heart failure): - H/o severe heart failure with EF 15%, was possibly related to Avandia. - Most recent echo showed EF of 55-60%. - Laws placed for strict I/O's; monitor daily weights. - BNP was elevated at admission; trace right pleural effusion on chest imaging. (5) Elevated troponin: - Trop peaked at 0.68 then trended down. - Continue home statin, coreg, plavix as tolerated; holding Lisinopril and Lisinopril/HCTZ due to TANYA. - Cardiology consulted, appreciate input. (6) Diabetes: - Has had uncontrolled hyperglycemia -- ICU for glycemic management. - Most recent A1C was 8.1 in Apr 2018. (7) Hypertension: - Continue home Coreg; holding Lisinopril, Aldactone, and Lisinopril HCTZ due to TANYA. (8) Hyperlipidemia: - Continue statin as prescribed. (9) Acute kidney injury: - Creatinine trending up, likely related to ATN in setting of sepsis, ACEI at home, hypoxia, contrast with chest imaging studies. - Holding ACEI, Thiazide diuretic and Aldactone in setting of TANYA. - Continue to follow renal function closely. (10) CKD (chronic kidney disease), stage III: - Renally dose all meds. (11) Proteinuria: - With nephrotic range proteinuria (4+ on UA and Spot urine prot/veterans service representative ratio at 11.1) - Consulted nephro, may have nephrotic range proteinuria. - 24 hour urine protein pneding. - Risk of thrombosis/infections; doppler bilat LE negative for DVT, CT negative for PE. - Nephro following, appreciate input. (12) History of CVA (cerebrovascular accident): - History of left basal ganglia CVA in September 2016. - Continue statin and plavix as prescribed. (13) Anemia: Hgb dropped to 9.6 from 12.8 on admission No evidence of bleeding. MCV low normal at 83 -consider hemoccult, Fe studies -follow CBC (14) Thrombocytopenia: Plts dropping to 110 today, likely either hemodilutional or due to sepsis -follow CBC (15) DVT prophylaxis: - Heparin 5,000 units q8hr. Dispo: ICU for acute hypoxic respiratory failure. CODE STATUS -- DNR, okay with intubation Supervising Physician Co-Signing Physician Notes PA Supervision Note: I did not personally see or examine the patient today, but I verified all weaver points of RAMÍREZ Larios's assessment and plan with the following exceptions/additions: None Subjective Remains intubated. ICU team following. Review of Systems Unobtainable due to cognitive status Physical Exam Vital Signs (Past 24 Hours): Last Vital Signs Temp 38.4 C H 07/02/18 13:31 Pulse 79 07/02/18 13:31 Resp 19 07/02/18 10:30 BP 122/61 07/02/18 13:30 Pulse Ox 92 07/02/18 13:31 Physical Exam: General: Intubated, no family was present at bedside. HEENT: NC/AT; PERRLA with EOMI; [place] conjunctiva, MMM. Neck: Supple and nontender Cardiac: +tachycardia. Lungs: intubated; diminished throughout Abdomen: Bowel normoactive X 4; Nontender to palpation Extremities: Warm. No edema present Neuro: No focal weakness Skin: No rash Results & Data Laboratory Results 07/02/18 07/02/18 07/02/18 Range/Units 13:26 11:16 08:42 WBC (4.8-10.8) K/uL RBC (4.2-5.4) M/uL Hgb (12.0-16.0) g/dL POC Hgb (12.0-16.0) g/dl Hct (37-47) % POC Hct (37-47) % MCV (80-100) fL MCH (25-34) pg MCHC (32-36) g/dL RDW Std Deviation (36.4-46.3) fL RDW Coeff of Braeden (11.5-14.5) % Plt Count (130-400) K/uL MPV (7.4-10.4) fL Immature Gran % (Auto) % Neut % (Auto) % Lymph % (Auto) % [place] % (Auto) % Eos % (Auto) % Baso % (Auto) % Immature Gran # (Auto) (0.00-0.02) K/uL Neut # (Auto) (1.4-6.5) K/uL Lymph # (Auto) (1.2-3.4) K/uL [place] # (Auto) (0.11-0.59) K/uL Eos # (Auto) (0-0.5) K/uL Baso # (Auto) (0-0.2) K/uL PT (9.0-12.0) Seconds INR (0.9-1.1) APTT (21.0-31.0) Seconds PTT Ratio Sample Site POC pH POC pCO2 POC pO2 POC HCO3 POC Total CO2 POC Base Excess POC O2 Saturation ABG pH (7.35-7.45) ABG pCO2 (35-46) mmHg ABG pO2 (80-95) mm/Hg ABG HCO3 (19-24) mmol/L POC ABG O2 Sat (90-95) % ABG O2 Saturation (90-95) % ABG Base Excess (-9-1.8) mEq/L Kavon Test Barometric Pressure mm/Hg Oxygen Given O2 Delivery Device POC O2 Rate Minute Ventilation POC FiO2 % Tidal Volume PEEP POC Sodium (135-144) mEq/L Sodium 139 (136-145) mmol/L POC Potassium (3.3-5.0) mEq/L Potassium 3.5 (3.5-5.1) mmol/L Chloride 104 (98-107) mmol/L Carbon Dioxide 26 (21-32) mmol/L Anion Gap 9.0 (3-11) BUN 63 H (7-18) mg/dl Creatinine 3.01 H D (0.6-1.2) mg/dl Est Cr Clr Drug Dosing 25.6 ml/min Est GFR ( Amer) 18.5 Est GFR (Non-Af Amer) 15.9 BUN/Creatinine Ratio 20.8 H (10-20) Glucose 182 H (70-99) mg/dl POC Glucose 179 H (70-99) Lactate (0.4-2.0) mmol/L Calcium 8.7 (8.5-10.1) mg/dl Phosphorus (2.5-4.9) mg/dl Magnesium 2.3 (1.8-2.4) mg/dl Urine Color Yellow Urine Appearance Cloudy H (Clear) Urine pH 5.0 (4.5-7.5) Ur Specific [place] 1.032 H (1.000-1.030) Urine Protein 2+ H (Negative) Urine Glucose (UA) Negative (Negative) Urine Ketones Negative (Negative) Urine Blood 2+ H (Negative) Urine Nitrite Negative (Negative) Urine Bilirubin Negative (Negative) Urine Urobilinogen Negative (Negative) Ur Leukocyte Esterase Negative (Negative) Urine WBC (Auto) 5-10 H (0-5) /hpf Urine RBC (Auto) 5-10 H (0-4) /hpf U Hyaline Cast (Auto) 1-5 (0-5) /lpf U Epithel Cells (Auto) >30 H (0-5) /lpf Urine Bacteria (Auto) Negative (Negative) Urine Yeast Budding H (None Prsent) Nasal Screen MRSA (PCR) (Negative) Influenza Type A (PCR) (Neg) Influenza Type B (PCR) (Neg) 07/02/18 07/02/18 07/02/18 Range/Units 08:42 08:10 06:11 WBC 9.28 (4.8-10.8) K/uL RBC 3.50 L (4.2-5.4) M/uL Hgb 9.6 L (12.0-16.0) g/dL POC Hgb (12.0-16.0) g/dl Hct 29.2 L (37-47) % POC Hct (37-47) % MCV 83.4 (80-100) fL MCH 27.4 (25-34) pg MCHC 32.9 (32-36) g/dL RDW Std Deviation 46.8 H (36.4-46.3) fL RDW Coeff of Braeden 15.2 H (11.5-14.5) % Plt Count 110 L (130-400) K/uL MPV 10.5 H (7.4-10.4) fL Immature Gran % (Auto) 0.2 % Neut % (Auto) 85.2 % Lymph % (Auto) 11.4 % [place] % (Auto) 2.9 % Eos % (Auto) 0.0 % Baso % (Auto) 0.3 % Immature Gran # (Auto) 0.02 (0.00-0.02) K/uL Neut # (Auto) 7.90 H (1.4-6.5) K/uL Lymph # (Auto) 1.06 L (1.2-3.4) K/uL [place] # (Auto) 0.27 (0.11-0.59) K/uL Eos # (Auto) 0.00 (0-0.5) K/uL Baso # (Auto) 0.03 (0-0.2) K/uL PT (9.0-12.0) Seconds INR (0.9-1.1) APTT (21.0-31.0) Seconds PTT Ratio Sample Site Art Line POC pH 7.37 POC pCO2 39 POC pO2 66 L POC HCO3 23 POC Total CO2 24 POC Base Excess -3.0 POC O2 Saturation ABG pH (7.35-7.45) ABG pCO2 (35-46) mmHg ABG pO2 (80-95) mm/Hg ABG HCO3 (19-24) mmol/L POC ABG O2 Sat 92.0 (90-95) % ABG O2 Saturation (90-95) % ABG Base Excess (-9-1.8) mEq/L Kavon Test NA Barometric Pressure mm/Hg Oxygen Given O2 Delivery Device Ventilator POC O2 Rate 18 Minute Ventilation 8.7 POC FiO2 40 % Tidal Volume 500 PEEP 16 POC Sodium (135-144) mEq/L Sodium (136-145) mmol/L POC Potassium (3.3-5.0) mEq/L Potassium (3.5-5.1) mmol/L Chloride (98-107) mmol/L Carbon Dioxide (21-32) mmol/L Anion Gap (3-11) BUN (7-18) mg/dl Creatinine (0.6-1.2) mg/dl Est Cr Clr Drug Dosing ml/min Est GFR ( Amer) Est GFR (Non-Af Amer) BUN/Creatinine Ratio (10-20) Glucose (70-99) mg/dl POC Glucose 209 H (70-99) Lactate (0.4-2.0) mmol/L Calcium (8.5-10.1) mg/dl Phosphorus (2.5-4.9) mg/dl Magnesium (1.8-2.4) mg/dl Urine Color Urine Appearance (Clear) Urine pH (4.5-7.5) Ur Specific [place] (1.000-1.030) Urine Protein (Negative) Urine Glucose (UA) (Negative) Urine Ketones (Negative) Urine Blood (Negative) Urine Nitrite (Negative) Urine Bilirubin (Negative) Urine Urobilinogen (Negative) Ur Leukocyte Esterase (Negative) Urine WBC (Auto) (0-5) /hpf Urine RBC (Auto) (0-4) /hpf U Hyaline Cast (Auto) (0-5) /lpf U Epithel Cells (Auto) (0-5) /lpf Urine Bacteria (Auto) (Negative) Urine Yeast (None Prsent) Nasal Screen MRSA (PCR) (Negative) Influenza Type A (PCR) (Neg) Influenza Type B (PCR) (Neg) 07/02/18 07/02/18 07/02/18 Range/Units 04:57 04:57 04:57 WBC (4.8-10.8) K/uL RBC (4.2-5.4) M/uL Hgb (12.0-16.0) g/dL POC Hgb (12.0-16.0) g/dl Hct (37-47) % POC Hct (37-47) % MCV (80-100) fL MCH (25-34) pg MCHC (32-36) g/dL RDW Std Deviation (36.4-46.3) fL RDW Coeff of Braeden (11.5-14.5) % Plt Count (130-400) K/uL MPV (7.4-10.4) fL Immature Gran % (Auto) % Neut % (Auto) % Lymph % (Auto) % [place] % (Auto) % Eos % (Auto) % Baso % (Auto) % Immature Gran # (Auto) (0.00-0.02) K/uL Neut # (Auto) (1.4-6.5) K/uL Lymph # (Auto) (1.2-3.4) K/uL [place] # (Auto) (0.11-0.59) K/uL Eos # (Auto) (0-0.5) K/uL Baso # (Auto) (0-0.2) K/uL PT (9.0-12.0) Seconds INR (0.9-1.1) APTT (21.0-31.0) Seconds PTT Ratio Sample Site POC pH POC pCO2 POC pO2 POC HCO3 POC Total CO2 POC Base Excess POC O2 Saturation ABG pH 7.38 (7.35-7.45) ABG pCO2 40 (35-46) mmHg ABG pO2 78 L (80-95) mm/Hg ABG HCO3 23 (19-24) mmol/L POC ABG O2 Sat (90-95) % ABG O2 Saturation 94.9 (90-95) % ABG Base Excess -2.0 (-9-1.8) mEq/L Kavon Test Pos Barometric Pressure 730.6 mm/Hg Oxygen Given 50% FiO2 O2 Delivery Device POC O2 Rate Minute Ventilation POC FiO2 % Tidal Volume PEEP POC Sodium (135-144) mEq/L Sodium (136-145) mmol/L POC Potassium (3.3-5.0) mEq/L Potassium (3.5-5.1) mmol/L Chloride (98-107) mmol/L Carbon Dioxide (21-32) mmol/L Anion Gap (3-11) BUN (7-18) mg/dl Creatinine (0.6-1.2) mg/dl Est Cr Clr Drug Dosing ml/min Est GFR ( Amer) Est GFR (Non-Af Amer) BUN/Creatinine Ratio (10-20) Glucose (70-99) mg/dl POC Glucose (70-99) Lactate 1.0 (0.4-2.0) mmol/L Calcium (8.5-10.1) mg/dl Phosphorus 4.8 D (2.5-4.9) mg/dl Magnesium (1.8-2.4) mg/dl Urine Color Urine Appearance (Clear) Urine pH (4.5-7.5) Ur Specific [place] (1.000-1.030) Urine Protein (Negative) Urine Glucose (UA) (Negative) Urine Ketones (Negative) Urine Blood (Negative) Urine Nitrite (Negative) Urine Bilirubin (Negative) Urine Urobilinogen (Negative) Ur Leukocyte Esterase (Negative) Urine WBC (Auto) (0-5) /hpf Urine RBC (Auto) (0-4) /hpf U Hyaline Cast (Auto) (0-5) /lpf U Epithel Cells (Auto) (0-5) /lpf Urine Bacteria (Auto) (Negative) Urine Yeast (None Prsent) Nasal Screen MRSA (PCR) (Negative) Influenza Type A (PCR) (Neg) Influenza Type B (PCR) (Neg) 07/02/18 07/02/18 07/01/18 Range/Units 04:30 00:56 23:14 WBC (4.8-10.8) K/uL RBC (4.2-5.4) M/uL Hgb (12.0-16.0) g/dL POC Hgb (12.0-16.0) g/dl Hct (37-47) % POC Hct (37-47) % MCV (80-100) fL MCH (25-34) pg MCHC (32-36) g/dL RDW Std Deviation (36.4-46.3) fL RDW Coeff of Braeden (11.5-14.5) % Plt Count (130-400) K/uL MPV (7.4-10.4) fL Immature Gran % (Auto) % Neut % (Auto) % Lymph % (Auto) % [place] % (Auto) % Eos % (Auto) % Baso % (Auto) % Immature Gran # (Auto) (0.00-0.02) K/uL Neut # (Auto) (1.4-6.5) K/uL Lymph # (Auto) (1.2-3.4) K/uL [place] # (Auto) (0.11-0.59) K/uL Eos # (Auto) (0-0.5) K/uL Baso # (Auto) (0-0.2) K/uL PT (9.0-12.0) Seconds INR (0.9-1.1) APTT (21.0-31.0) Seconds PTT Ratio Sample Site Art Line POC pH 7.25 L POC pCO2 55 H POC pO2 80 POC HCO3 24 POC Total CO2 26 POC Base Excess -3.0 POC O2 Saturation ABG pH (7.35-7.45) ABG pCO2 (35-46) mmHg ABG pO2 (80-95) mm/Hg ABG HCO3 (19-24) mmol/L POC ABG O2 Sat 94.0 (90-95) % ABG O2 Saturation (90-95) % ABG Base Excess (-9-1.8) mEq/L Kavon Test NA Barometric Pressure mm/Hg Oxygen Given O2 Delivery Device Ventilator POC O2 Rate 18 Minute Ventilation 8.1 POC FiO2 80 % Tidal Volume 500 PEEP 16 POC Sodium (135-144) mEq/L Sodium (136-145) mmol/L POC Potassium (3.3-5.0) mEq/L Potassium (3.5-5.1) mmol/L Chloride (98-107) mmol/L Carbon Dioxide (21-32) mmol/L Anion Gap (3-11) BUN (7-18) mg/dl Creatinine (0.6-1.2) mg/dl Est Cr Clr Drug Dosing ml/min Est GFR ( Amer) Est GFR (Non-Af Amer) BUN/Creatinine Ratio (10-20) Glucose (70-99) mg/dl POC Glucose 220 H 216 H (70-99) Lactate (0.4-2.0) mmol/L Calcium (8.5-10.1) mg/dl Phosphorus (2.5-4.9) mg/dl Magnesium (1.8-2.4) mg/dl Urine Color Urine Appearance (Clear) Urine pH (4.5-7.5) Ur Specific [place] (1.000-1.030) Urine Protein (Negative) Urine Glucose (UA) (Negative) Urine Ketones (Negative) Urine Blood (Negative) Urine Nitrite (Negative) Urine Bilirubin (Negative) Urine Urobilinogen (Negative) Ur Leukocyte Esterase (Negative) Urine WBC (Auto) (0-5) /hpf Urine RBC (Auto) (0-4) /hpf U Hyaline Cast (Auto) (0-5) /lpf U Epithel Cells (Auto) (0-5) /lpf Urine Bacteria (Auto) (Negative) Urine Yeast (None Prsent) Nasal Screen MRSA (PCR) (Negative) Influenza Type A (PCR) (Neg) Influenza Type B (PCR) (Neg) 07/01/18 07/01/18 07/01/18 Range/Units 23:08 22:10 18:40 WBC (4.8-10.8) K/uL RBC (4.2-5.4) M/uL Hgb (12.0-16.0) g/dL POC Hgb (12.0-16.0) g/dl Hct (37-47) % POC Hct (37-47) % MCV (80-100) fL MCH (25-34) pg MCHC (32-36) g/dL RDW Std Deviation (36.4-46.3) fL RDW Coeff of Braeden (11.5-14.5) % Plt Count (130-400) K/uL MPV (7.4-10.4) fL Immature Gran % (Auto) % Neut % (Auto) % Lymph % (Auto) % [place] % (Auto) % Eos % (Auto) % Baso % (Auto) % Immature Gran # (Auto) (0.00-0.02) K/uL Neut # (Auto) (1.4-6.5) K/uL Lymph # (Auto) (1.2-3.4) K/uL [place] # (Auto) (0.11-0.59) K/uL Eos # (Auto) (0-0.5) K/uL Baso # (Auto) (0-0.2) K/uL PT (9.0-12.0) Seconds INR (0.9-1.1) APTT (21.0-31.0) Seconds PTT Ratio Sample Site POC pH POC pCO2 POC pO2 POC HCO3 POC Total CO2 POC Base Excess POC O2 Saturation ABG pH (7.35-7.45) ABG pCO2 (35-46) mmHg ABG pO2 (80-95) mm/Hg ABG HCO3 (19-24) mmol/L POC ABG O2 Sat (90-95) % ABG O2 Saturation (90-95) % ABG Base Excess (-9-1.8) mEq/L Kavon Test Barometric Pressure mm/Hg Oxygen Given O2 Delivery Device POC O2 Rate Minute Ventilation POC FiO2 % Tidal Volume PEEP POC Sodium (135-144) mEq/L Sodium (136-145) mmol/L POC Potassium (3.3-5.0) mEq/L Potassium (3.5-5.1) mmol/L Chloride (98-107) mmol/L Carbon Dioxide (21-32) mmol/L Anion Gap (3-11) BUN (7-18) mg/dl Creatinine (0.6-1.2) mg/dl Est Cr Clr Drug Dosing ml/min Est GFR ( Amer) Est GFR (Non-Af Amer) BUN/Creatinine Ratio (10-20) Glucose (70-99) mg/dl POC Glucose (70-99) Lactate 0.9 (0.4-2.0) mmol/L Calcium (8.5-10.1) mg/dl Phosphorus (2.5-4.9) mg/dl Magnesium (1.8-2.4) mg/dl Urine Color Urine Appearance (Clear) Urine pH (4.5-7.5) Ur Specific [place] (1.000-1.030) Urine Protein (Negative) Urine Glucose (UA) (Negative) Urine Ketones (Negative) Urine Blood (Negative) Urine Nitrite (Negative) Urine Bilirubin (Negative) Urine Urobilinogen (Negative) Ur Leukocyte Esterase (Negative) Urine WBC (Auto) (0-5) /hpf Urine RBC (Auto) (0-4) /hpf U Hyaline Cast (Auto) (0-5) /lpf U Epithel Cells (Auto) (0-5) /lpf Urine Bacteria (Auto) (Negative) Urine Yeast (None Prsent) Nasal Screen MRSA (PCR) Cancelled (Negative) Influenza Type A (PCR) Neg for Influ A (Neg) Influenza Type B (PCR) Neg for Influ B (Neg) 07/01/18 07/01/18 07/01/18 Range/Units 17:44 17:32 17:32 WBC (4.8-10.8) K/uL RBC (4.2-5.4) M/uL Hgb (12.0-16.0) g/dL POC Hgb (12.0-16.0) g/dl Hct (37-47) % POC Hct (37-47) % MCV (80-100) fL MCH (25-34) pg MCHC (32-36) g/dL RDW Std Deviation (36.4-46.3) fL RDW Coeff of Braeden (11.5-14.5) % Plt Count (130-400) K/uL MPV (7.4-10.4) fL Immature Gran % (Auto) % Neut % (Auto) % Lymph % (Auto) % [place] % (Auto) % Eos % (Auto) % Baso % (Auto) % Immature Gran # (Auto) (0.00-0.02) K/uL Neut # (Auto) (1.4-6.5) K/uL Lymph # (Auto) (1.2-3.4) K/uL [place] # (Auto) (0.11-0.59) K/uL Eos # (Auto) (0-0.5) K/uL Baso # (Auto) (0-0.2) K/uL PT 10.9 (9.0-12.0) Seconds INR 1.1 (0.9-1.1) APTT 27.1 (21.0-31.0) Seconds PTT Ratio 1.0 Sample Site POC pH POC pCO2 POC pO2 POC HCO3 POC Total CO2 POC Base Excess POC O2 Saturation ABG pH (7.35-7.45) ABG pCO2 (35-46) mmHg ABG pO2 (80-95) mm/Hg ABG HCO3 (19-24) mmol/L POC ABG O2 Sat (90-95) % ABG O2 Saturation (90-95) % ABG Base Excess (-9-1.8) mEq/L Kavon Test Barometric Pressure mm/Hg Oxygen Given O2 Delivery Device POC O2 Rate Minute Ventilation POC FiO2 % Tidal Volume PEEP POC Sodium (135-144) mEq/L Sodium (136-145) mmol/L POC Potassium (3.3-5.0) mEq/L Potassium (3.5-5.1) mmol/L Chloride (98-107) mmol/L Carbon Dioxide (21-32) mmol/L Anion Gap (3-11) BUN (7-18) mg/dl Creatinine (0.6-1.2) mg/dl Est Cr Clr Drug Dosing ml/min Est GFR ( Amer) Est GFR (Non-Af Amer) BUN/Creatinine Ratio (10-20) Glucose (70-99) mg/dl POC Glucose 211 H (70-99) Lactate 1.7 (0.4-2.0) mmol/L Calcium (8.5-10.1) mg/dl Phosphorus (2.5-4.9) mg/dl Magnesium (1.8-2.4) mg/dl Urine Color Urine Appearance (Clear) Urine pH (4.5-7.5) Ur Specific [place] (1.000-1.030) Urine Protein (Negative) Urine Glucose (UA) (Negative) Urine Ketones (Negative) Urine Blood (Negative) Urine Nitrite (Negative) Urine Bilirubin (Negative) Urine Urobilinogen (Negative) Ur Leukocyte Esterase (Negative) Urine WBC (Auto) (0-5) /hpf Urine RBC (Auto) (0-4) /hpf U Hyaline Cast (Auto) (0-5) /lpf U Epithel Cells (Auto) (0-5) /lpf Urine Bacteria (Auto) (Negative) Urine Yeast (None Prsent) Nasal Screen MRSA (PCR) (Negative) Influenza Type A (PCR) (Neg) Influenza Type B (PCR) (Neg) 07/01/18 07/01/18 Range/Units 17:21 17:15 WBC (4.8-10.8) K/uL RBC (4.2-5.4) M/uL Hgb (12.0-16.0) g/dL POC Hgb 9.5 L (12.0-16.0) g/dl Hct (37-47) % POC Hct 28 L (37-47) % MCV (80-100) fL MCH (25-34) pg MCHC (32-36) g/dL RDW Std Deviation (36.4-46.3) fL RDW Coeff of Braeden (11.5-14.5) % Plt Count (130-400) K/uL MPV (7.4-10.4) fL Immature Gran % (Auto) % Neut % (Auto) % Lymph % (Auto) % [place] % (Auto) % Eos % (Auto) % Baso % (Auto) % Immature Gran # (Auto) (0.00-0.02) K/uL Neut # (Auto) (1.4-6.5) K/uL Lymph # (Auto) (1.2-3.4) K/uL [place] # (Auto) (0.11-0.59) K/uL Eos # (Auto) (0-0.5) K/uL Baso # (Auto) (0-0.2) K/uL PT (9.0-12.0) Seconds INR (0.9-1.1) APTT (21.0-31.0) Seconds PTT Ratio Sample Site Art Line POC pH Pending POC pCO2 Pending POC pO2 Pending POC HCO3 Pending POC Total CO2 Pending POC Base Excess Pending POC O2 Saturation 92 ABG pH (7.35-7.45) ABG pCO2 (35-46) mmHg ABG pO2 (80-95) mm/Hg ABG HCO3 (19-24) mmol/L POC ABG O2 Sat (90-95) % ABG O2 Saturation (90-95) % ABG Base Excess (-9-1.8) mEq/L Kavon Test NA Barometric Pressure mm/Hg Oxygen Given O2 Delivery Device Ventilator POC O2 Rate 18 Minute Ventilation 9 POC FiO2 100 % Tidal Volume 500 PEEP 12 POC Sodium 138 (135-144) mEq/L Sodium (136-145) mmol/L POC Potassium 3.2 L (3.3-5.0) mEq/L Potassium (3.5-5.1) mmol/L Chloride (98-107) mmol/L Carbon Dioxide (21-32) mmol/L Anion Gap (3-11) BUN (7-18) mg/dl Creatinine (0.6-1.2) mg/dl Est Cr Clr Drug Dosing ml/min Est GFR ( Amer) Est GFR (Non-Af Amer) BUN/Creatinine Ratio (10-20) Glucose (70-99) mg/dl POC Glucose (70-99) Lactate (0.4-2.0) mmol/L Calcium (8.5-10.1) mg/dl Phosphorus (2.5-4.9) mg/dl Magnesium (1.8-2.4) mg/dl Urine Color Urine Appearance (Clear) Urine pH (4.5-7.5) Ur Specific [place] (1.000-1.030) Urine Protein (Negative) Urine Glucose (UA) (Negative) Urine Ketones (Negative) Urine Blood (Negative) Urine Nitrite (Negative) Urine Bilirubin (Negative) Urine Urobilinogen (Negative) Ur Leukocyte Esterase (Negative) Urine WBC (Auto) (0-5) /hpf Urine RBC (Auto) (0-4) /hpf U Hyaline Cast (Auto) (0-5) /lpf U Epithel Cells (Auto) (0-5) /lpf Urine Bacteria (Auto) (Negative) Urine Yeast (None Prsent) Nasal Screen MRSA (PCR) Negative (Negative) Influenza Type A (PCR) (Neg) Influenza Type B (PCR) (Neg) (1) Diabetes Diabetes mellitus complication status: without complication Diabetes mellitus care home insulin use: with manager terminal use Diabetes mellitus type: type 2 Qualified Code(s): E11.9 - Type 2 diabetes mellitus without complications; 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
[2018-07-02] MEDS: INSULIN GLARGINE SOLOSTAR 100 UNITS/ML 3 ML PEN SC SCH (20:41)
[2018-07-03] MEDS: INSULIN ASPART 100 UNITS/ML 3 ML PEN SC SCH ×6 (00:59→20:09)
[2018-07-03] MEDS: SODIUM CHLORIDE 0.9% 1000ML 1,000 ML IV SCH ×2 (01:01→11:41)
[2018-07-03] MEDS: PIPERACILLIN/TAZOBACTAM 4.5 GM in DEXTROSE 5% 100 ML IV SCH (01:01)
[2018-07-03] MEDS: fentaNYL citrate 100 MCG/2 ML VIAL IV PRN ×8 (04:53→23:16)
[2018-07-03 05:02] LABS: Hematocrit (blood only) 24.7 % (37-47); Hemoglobin 8.2 g/dL (12.0-16.0); Mean Corpuscular Hgb Conc 33.2 g/dL (32-36); Mean Corpuscular Volume 82.3 fL (80-100); Mean Platelet Volume 10.3 fL (7.4-10.4); Platelet Count 106 K/uL (130-400); RDW Coefficient of Variation 15.3 % (11.5-14.5); White Blood Count 7.67 K/uL (4.8-10.8)
--- NOTE | 2018-07-03 05:20 | Critical Care Progress Note ---
Date of Service July 03, 2018 Assessment & Plan (1) Admitted to intensive care unit: Reason Critically Ill: Patient is critically ill with ARDS PLAN: Neuro: Completed 24 hours of NMB -Cisatracurium discontinued Resp: Acute hypoxic respiratory failure Severe ARDS: Improving - ARDSnet box: 2 from 7: high PEEP low FiO2 - Discontinue Zosyn and a Zithromax: no growth on BAL - IBW 61 KG CV: Elevated troponins -Will be elevated in setting of acute kidney injury -Echo: Reviewed Fluids/Renal: Acute kidney injury: worsened -Normal saline at 100 mL's per hour - Convert to 1/2 NS with 20 K -Renal ultrasound: reviewed -Repeat UA: reviewed - replace potassium ID: -Influenza negative x2 -Blood cultures no growth to date -No growth out of BAL -Nasal MRSA screen negative will discontinue vancomycin continue other antibiotics GI/Nutrition: OG tube -Tube feeds at trickle progress to goal of 50 mL continuous Heme: Anemia: - check reticulcyte count - type and screen - likely bone marrow suppression Thrombocytopenia DVT prophylaxis: Heparin 5000 3 times daily Endocrine: ICU hyperglycemia protocol - No indication for steroids at this time as this does not appear to be bacterial in nature. Vascular access: Left radial arterial line, left subclavian triple-lumen catheter Code Status: Confirmed DO NOT RESUSCITATE in event of cardiac arrest okay with intubation to be surrogate decision-maker. I have personally spent 45 minutes of critical care time in the direct management of this patient. This is a life/limb threatening event. This includes time spent evaluating patient, direct bedside care, chart review, placing orders, interpretation of diagnostic studies, discussion with consultants, patient, and/or family members regarding treatment decisions, as well as other required patient management activities. This time is exclusive of all separately billable procedures, and teaching time and separate from and in addition to any other critical care service time. Subjective No overnight events., Decreased oxygen requirements on ventilator. Physical Exam Vital Signs (Past 24 Hours): Last Vital Signs Temp 38.4 C H 07/02/18 13:31 Pulse 71 07/03/18 02:05 Resp 18 07/03/18 02:05 BP 133/59 L 07/03/18 02:00 Pulse Ox 94 07/03/18 02:05 General: Alert. nontoxic. Skin: Warm, dry, Head: Atraumatic Ears, nose, mouth and throat: Obscured by endotracheal tube Cardiovascular: Normal peripheral perfusion Respiratory: Coarse sounds bilaterally Gastrointestinal: Non distended Musculoskeletal: No deformity Results & Data Laboratory Results 07/03/18 07/03/18 07/03/18 Range/Units 04:46 04:40 04:40 WBC (4.8-10.8) K/uL RBC (4.2-5.4) M/uL Hgb (12.0-16.0) g/dL Hct (37-47) % MCV (80-100) fL MCH (25-34) pg MCHC (32-36) g/dL RDW Std Deviation (36.4-46.3) fL RDW Coeff of Braeden (11.5-14.5) % Plt Count (130-400) K/uL MPV (7.4-10.4) fL Immature Gran % (Auto) % Neut % (Auto) % Lymph % (Auto) % Foster % (Auto) % Eos % (Auto) % Baso % (Auto) % Immature Gran # (Auto) (0.00-0.02) K/uL Neut # (Auto) (1.4-6.5) K/uL Lymph # (Auto) (1.2-3.4) K/uL Foster # (Auto) (0.11-0.59) K/uL Eos # (Auto) (0-0.5) K/uL Baso # (Auto) (0-0.2) K/uL Sample Site POC pH (7.35-7.45) POC pCO2 (35-46) mmHg POC pO2 (80-95) mmHg POC HCO3 (19-24) taniya/L POC Total CO2 (24-31) mEq/l POC Base Excess (-9-1.8) taniya/L ABG pH (7.35-7.45) ABG pCO2 (35-46) mmHg ABG pO2 (80-95) mm/Hg ABG HCO3 (19-24) mmol/L POC ABG O2 Sat (90-95) % ABG O2 Saturation (90-95) % ABG Base Excess (-9-1.8) mEq/L Kavon Test (Pos) Barometric Pressure mm/Hg Oxygen Given O2 Delivery Device POC O2 Rate Minute Ventilation POC FiO2 % Tidal Volume PEEP Sodium Pending (136-145) mmol/L Potassium Pending (3.5-5.1) mmol/L Chloride Pending (98-107) mmol/L Carbon Dioxide Pending (21-32) mmol/L Anion Gap Pending (3-11) BUN Pending (7-18) mg/dl Creatinine Pending (0.6-1.2) mg/dl Est Cr Clr Drug Dosing Pending ml/min Est GFR ( Amer) Pending Est GFR (Non-Af Amer) Pending BUN/Creatinine Ratio Pending (10-20) Glucose Pending (70-99) mg/dl POC Glucose 157 H (70-99) Lactate (0.4-2.0) mmol/L Calcium Pending (8.5-10.1) mg/dl Ionized Calcium 1.20 (1.12-1.32) mmol/L Phosphorus Pending (2.5-4.9) mg/dl Magnesium Pending (1.8-2.4) mg/dl Total Bilirubin Pending Direct Bilirubin Pending AST Pending ALT Pending Alkaline Phosphatase Pending Total Protein Pending Albumin Pending Urine Color Urine Appearance (Clear) Urine pH (4.5-7.5) Ur Specific [place] (1.000-1.030) Urine Protein (Negative) Urine Glucose (UA) (Negative) Urine Ketones (Negative) Urine Blood (Negative) Urine Nitrite (Negative) Urine Bilirubin (Negative) Urine Urobilinogen (Negative) Ur Leukocyte Esterase (Negative) Urine WBC (Auto) (0-5) /hpf Urine RBC (Auto) (0-4) /hpf U Hyaline Cast (Auto) (0-5) /lpf U Epithel Cells (Auto) (0-5) /lpf Urine Bacteria (Auto) (Negative) Urine Yeast (None Prsent) 07/03/18 07/03/18 07/02/18 Range/Units 04:40 00:57 20:01 WBC 7.67 (4.8-10.8) K/uL RBC 3.00 L (4.2-5.4) M/uL Hgb 8.2 L (12.0-16.0) g/dL Hct 24.7 L (37-47) % MCV 82.3 (80-100) fL MCH 27.3 (25-34) pg MCHC 33.2 (32-36) g/dL RDW Std Deviation 46.0 (36.4-46.3) fL RDW Coeff of Braeden 15.3 H (11.5-14.5) % Plt Count 106 L (130-400) K/uL MPV 10.3 (7.4-10.4) fL Immature Gran % (Auto) % Neut % (Auto) % Lymph % (Auto) % Foster % (Auto) % Eos % (Auto) % Baso % (Auto) % Immature Gran # (Auto) (0.00-0.02) K/uL Neut # (Auto) (1.4-6.5) K/uL Lymph # (Auto) (1.2-3.4) K/uL Foster # (Auto) (0.11-0.59) K/uL Eos # (Auto) (0-0.5) K/uL Baso # (Auto) (0-0.2) K/uL Sample Site POC pH (7.35-7.45) POC pCO2 (35-46) mmHg POC pO2 (80-95) mmHg POC HCO3 (19-24) taniya/L POC Total CO2 (24-31) mEq/l POC Base Excess (-9-1.8) taniya/L ABG pH (7.35-7.45) ABG pCO2 (35-46) mmHg ABG pO2 (80-95) mm/Hg ABG HCO3 (19-24) mmol/L POC ABG O2 Sat (90-95) % ABG O2 Saturation (90-95) % ABG Base Excess (-9-1.8) mEq/L Kavon Test (Pos) Barometric Pressure mm/Hg Oxygen Given O2 Delivery Device POC O2 Rate Minute Ventilation POC FiO2 % Tidal Volume PEEP Sodium (136-145) mmol/L Potassium (3.5-5.1) mmol/L Chloride (98-107) mmol/L Carbon Dioxide (21-32) mmol/L Anion Gap (3-11) BUN (7-18) mg/dl Creatinine (0.6-1.2) mg/dl Est Cr Clr Drug Dosing ml/min Est GFR ( Amer) Est GFR (Non-Af Amer) BUN/Creatinine Ratio (10-20) Glucose (70-99) mg/dl POC Glucose 154 H 174 H (70-99) Lactate (0.4-2.0) mmol/L Calcium (8.5-10.1) mg/dl Ionized Calcium (1.12-1.32) mmol/L Phosphorus (2.5-4.9) mg/dl Magnesium (1.8-2.4) mg/dl Total Bilirubin Direct Bilirubin AST ALT Alkaline Phosphatase Total Protein Albumin Urine Color Urine Appearance (Clear) Urine pH (4.5-7.5) Ur Specific [place] (1.000-1.030) Urine Protein (Negative) Urine Glucose (UA) (Negative) Urine Ketones (Negative) Urine Blood (Negative) Urine Nitrite (Negative) Urine Bilirubin (Negative) Urine Urobilinogen (Negative) Ur Leukocyte Esterase (Negative) Urine WBC (Auto) (0-5) /hpf Urine RBC (Auto) (0-4) /hpf U Hyaline Cast (Auto) (0-5) /lpf U Epithel Cells (Auto) (0-5) /lpf Urine Bacteria (Auto) (Negative) Urine Yeast (None Prsent) 07/02/18 07/02/18 07/02/18 Range/Units 15:57 13:26 11:16 WBC (4.8-10.8) K/uL RBC (4.2-5.4) M/uL Hgb (12.0-16.0) g/dL Hct (37-47) % MCV (80-100) fL MCH (25-34) pg MCHC (32-36) g/dL RDW Std Deviation (36.4-46.3) fL RDW Coeff of Braeden (11.5-14.5) % Plt Count (130-400) K/uL MPV (7.4-10.4) fL Immature Gran % (Auto) % Neut % (Auto) % Lymph % (Auto) % Foster % (Auto) % Eos % (Auto) % Baso % (Auto) % Immature Gran # (Auto) (0.00-0.02) K/uL Neut # (Auto) (1.4-6.5) K/uL Lymph # (Auto) (1.2-3.4) K/uL Foster # (Auto) (0.11-0.59) K/uL Eos # (Auto) (0-0.5) K/uL Baso # (Auto) (0-0.2) K/uL Sample Site POC pH (7.35-7.45) POC pCO2 (35-46) mmHg POC pO2 (80-95) mmHg POC HCO3 (19-24) taniya/L POC Total CO2 (24-31) mEq/l POC Base Excess (-9-1.8) taniya/L ABG pH (7.35-7.45) ABG pCO2 (35-46) mmHg ABG pO2 (80-95) mm/Hg ABG HCO3 (19-24) mmol/L POC ABG O2 Sat (90-95) % ABG O2 Saturation (90-95) % ABG Base Excess (-9-1.8) mEq/L Kavon Test (Pos) Barometric Pressure mm/Hg Oxygen Given O2 Delivery Device POC O2 Rate Minute Ventilation POC FiO2 % Tidal Volume PEEP Sodium (136-145) mmol/L Potassium (3.5-5.1) mmol/L Chloride (98-107) mmol/L Carbon Dioxide (21-32) mmol/L Anion Gap (3-11) BUN (7-18) mg/dl Creatinine (0.6-1.2) mg/dl Est Cr Clr Drug Dosing ml/min Est GFR ( Amer) Est GFR (Non-Af Amer) BUN/Creatinine Ratio (10-20) Glucose (70-99) mg/dl POC Glucose 180 H 179 H (70-99) Lactate (0.4-2.0) mmol/L Calcium (8.5-10.1) mg/dl Ionized Calcium (1.12-1.32) mmol/L Phosphorus (2.5-4.9) mg/dl Magnesium (1.8-2.4) mg/dl Total Bilirubin Direct Bilirubin AST ALT Alkaline Phosphatase Total Protein Albumin Urine Color Yellow Urine Appearance Cloudy H (Clear) Urine pH 5.0 (4.5-7.5) Ur Specific [place] 1.032 H (1.000-1.030) Urine Protein 2+ H (Negative) Urine Glucose (UA) Negative (Negative) Urine Ketones Negative (Negative) Urine Blood 2+ H (Negative) Urine Nitrite Negative (Negative) Urine Bilirubin Negative (Negative) Urine Urobilinogen Negative (Negative) Ur Leukocyte Esterase Negative (Negative) Urine WBC (Auto) 5-10 H (0-5) /hpf Urine RBC (Auto) 5-10 H (0-4) /hpf U Hyaline Cast (Auto) 1-5 (0-5) /lpf U Epithel Cells (Auto) >30 H (0-5) /lpf Urine Bacteria (Auto) Negative (Negative) Urine Yeast Budding H (None Prsent) 07/02/18 07/02/18 07/02/18 Range/Units 08:42 08:42 08:10 WBC 9.28 (4.8-10.8) K/uL RBC 3.50 L (4.2-5.4) M/uL Hgb 9.6 L (12.0-16.0) g/dL Hct 29.2 L (37-47) % MCV 83.4 (80-100) fL MCH 27.4 (25-34) pg MCHC 32.9 (32-36) g/dL RDW Std Deviation 46.8 H (36.4-46.3) fL RDW Coeff of Braeden 15.2 H (11.5-14.5) % Plt Count 110 L (130-400) K/uL MPV 10.5 H (7.4-10.4) fL Immature Gran % (Auto) 0.2 % Neut % (Auto) 85.2 % Lymph % (Auto) 11.4 % Foster % (Auto) 2.9 % Eos % (Auto) 0.0 % Baso % (Auto) 0.3 % Immature Gran # (Auto) 0.02 (0.00-0.02) K/uL Neut # (Auto) 7.90 H (1.4-6.5) K/uL Lymph # (Auto) 1.06 L (1.2-3.4) K/uL Foster # (Auto) 0.27 (0.11-0.59) K/uL Eos # (Auto) 0.00 (0-0.5) K/uL Baso # (Auto) 0.03 (0-0.2) K/uL Sample Site POC pH (7.35-7.45) POC pCO2 (35-46) mmHg POC pO2 (80-95) mmHg POC HCO3 (19-24) taniya/L POC Total CO2 (24-31) mEq/l POC Base Excess (-9-1.8) taniya/L ABG pH (7.35-7.45) ABG pCO2 (35-46) mmHg ABG pO2 (80-95) mm/Hg ABG HCO3 (19-24) mmol/L POC ABG O2 Sat (90-95) % ABG O2 Saturation (90-95) % ABG Base Excess (-9-1.8) mEq/L Kavon Test (Pos) Barometric Pressure mm/Hg Oxygen Given O2 Delivery Device POC O2 Rate Minute Ventilation POC FiO2 % Tidal Volume PEEP Sodium 139 (136-145) mmol/L Potassium 3.5 (3.5-5.1) mmol/L Chloride 104 (98-107) mmol/L Carbon Dioxide 26 (21-32) mmol/L Anion Gap 9.0 (3-11) BUN 63 H (7-18) mg/dl Creatinine 3.01 H D (0.6-1.2) mg/dl Est Cr Clr Drug Dosing 25.6 ml/min Est GFR ( Amer) 18.5 Est GFR (Non-Af Amer) 15.9 BUN/Creatinine Ratio 20.8 H (10-20) Glucose 182 H (70-99) mg/dl POC Glucose 209 H (70-99) Lactate (0.4-2.0) mmol/L Calcium 8.7 (8.5-10.1) mg/dl Ionized Calcium (1.12-1.32) mmol/L Phosphorus (2.5-4.9) mg/dl Magnesium 2.3 (1.8-2.4) mg/dl Total Bilirubin Direct Bilirubin AST ALT Alkaline Phosphatase Total Protein Albumin Urine Color Urine Appearance (Clear) Urine pH (4.5-7.5) Ur Specific [place] (1.000-1.030) Urine Protein (Negative) Urine Glucose (UA) (Negative) Urine Ketones (Negative) Urine Blood (Negative) Urine Nitrite (Negative) Urine Bilirubin (Negative) Urine Urobilinogen (Negative) Ur Leukocyte Esterase (Negative) Urine WBC (Auto) (0-5) /hpf Urine RBC (Auto) (0-4) /hpf U Hyaline Cast (Auto) (0-5) /lpf U Epithel Cells (Auto) (0-5) /lpf Urine Bacteria (Auto) (Negative) Urine Yeast (None Prsent) 03/30/19 03/30/19 03/30/19 Range/Units 06:11 04:57 04:57 WBC (4.8-10.8) K/uL RBC (4.2-5.4) M/uL Hgb (12.0-16.0) g/dL Hct (37-47) % MCV (80-100) fL MCH (25-34) pg MCHC (32-36) g/dL RDW Std Deviation (36.4-46.3) fL RDW Coeff of Braeden (11.5-14.5) % Plt Count (130-400) K/uL MPV (7.4-10.4) fL Immature Gran % (Auto) % Neut % (Auto) % Lymph % (Auto) % Foster % (Auto) % Eos % (Auto) % Baso % (Auto) % Immature Gran # (Auto) (0.00-0.02) K/uL Neut # (Auto) (1.4-6.5) K/uL Lymph # (Auto) (1.2-3.4) K/uL Foster # (Auto) (0.11-0.59) K/uL Eos # (Auto) (0-0.5) K/uL Baso # (Auto) (0-0.2) K/uL Sample Site Art Line POC pH 7.37 (7.35-7.45) POC pCO2 39 (35-46) mmHg POC pO2 66 L (80-95) mmHg POC HCO3 23 (19-24) taniya/L POC Total CO2 24 (24-31) mEq/l POC Base Excess -3.0 (-9-1.8) taniya/L ABG pH 7.38 (7.35-7.45) ABG pCO2 40 (35-46) mmHg ABG pO2 78 L (80-95) mm/Hg ABG HCO3 23 (19-24) mmol/L POC ABG O2 Sat 92.0 (90-95) % ABG O2 Saturation 94.9 (90-95) % ABG Base Excess -2.0 (-9-1.8) mEq/L Kavon Test NA Pos (Pos) Barometric Pressure 730.6 mm/Hg Oxygen Given 50% FiO2 O2 Delivery Device Ventilator POC O2 Rate 18 Minute Ventilation 8.7 POC FiO2 40 % Tidal Volume 500 PEEP 16 Sodium (136-145) mmol/L Potassium (3.5-5.1) mmol/L Chloride (98-107) mmol/L Carbon Dioxide (21-32) mmol/L Anion Gap (3-11) BUN (7-18) mg/dl Creatinine (0.6-1.2) mg/dl Est Cr Clr Drug Dosing ml/min Est GFR ( Amer) Est GFR (Non-Af Amer) BUN/Creatinine Ratio (10-20) Glucose (70-99) mg/dl POC Glucose (70-99) Lactate 1.0 (0.4-2.0) mmol/L Calcium (8.5-10.1) mg/dl Ionized Calcium (1.12-1.32) mmol/L Phosphorus (2.5-4.9) mg/dl Magnesium (1.8-2.4) mg/dl Total Bilirubin Direct Bilirubin AST ALT Alkaline Phosphatase Total Protein Albumin Urine Color Urine Appearance (Clear) Urine pH (4.5-7.5) Ur Specific [place] (1.000-1.030) Urine Protein (Negative) Urine Glucose (UA) (Negative) Urine Ketones (Negative) Urine Blood (Negative) Urine Nitrite (Negative) Urine Bilirubin (Negative) Urine Urobilinogen (Negative) Ur Leukocyte Esterase (Negative) Urine WBC (Auto) (0-5) /hpf Urine RBC (Auto) (0-4) /hpf U Hyaline Cast (Auto) (0-5) /lpf U Epithel Cells (Auto) (0-5) /lpf Urine Bacteria (Auto) (Negative) Urine Yeast (None Prsent) 07/02/18 Range/Units 04:57 WBC (4.8-10.8) K/uL RBC (4.2-5.4) M/uL Hgb (12.0-16.0) g/dL Hct (37-47) % MCV (80-100) fL MCH (25-34) pg MCHC (32-36) g/dL RDW Std Deviation (36.4-46.3) fL RDW Coeff of Braeden (11.5-14.5) % Plt Count (130-400) K/uL MPV (7.4-10.4) fL Immature Gran % (Auto) % Neut % (Auto) % Lymph % (Auto) % Foster % (Auto) % Eos % (Auto) % Baso % (Auto) % Immature Gran # (Auto) (0.00-0.02) K/uL Neut # (Auto) (1.4-6.5) K/uL Lymph # (Auto) (1.2-3.4) K/uL Foster # (Auto) (0.11-0.59) K/uL Eos # (Auto) (0-0.5) K/uL Baso # (Auto) (0-0.2) K/uL Sample Site POC pH (7.35-7.45) POC pCO2 (35-46) mmHg POC pO2 (80-95) mmHg POC HCO3 (19-24) taniya/L POC Total CO2 (24-31) mEq/l POC Base Excess (-9-1.8) taniya/L ABG pH (7.35-7.45) ABG pCO2 (35-46) mmHg ABG pO2 (80-95) mm/Hg ABG HCO3 (19-24) mmol/L POC ABG O2 Sat (90-95) % ABG O2 Saturation (90-95) % ABG Base Excess (-9-1.8) mEq/L Kavon Test (Pos) Barometric Pressure mm/Hg Oxygen Given O2 Delivery Device POC O2 Rate Minute Ventilation POC FiO2 % Tidal Volume PEEP Sodium (136-145) mmol/L Potassium (3.5-5.1) mmol/L Chloride (98-107) mmol/L Carbon Dioxide (21-32) mmol/L Anion Gap (3-11) BUN (7-18) mg/dl Creatinine (0.6-1.2) mg/dl Est Cr Clr Drug Dosing ml/min Est GFR ( Amer) Est GFR (Non-Af Amer) BUN/Creatinine Ratio (10-20) Glucose (70-99) mg/dl POC Glucose (70-99) Lactate (0.4-2.0) mmol/L Calcium (8.5-10.1) mg/dl Ionized Calcium (1.12-1.32) mmol/L Phosphorus 4.8 D (2.5-4.9) mg/dl Magnesium (1.8-2.4) mg/dl Total Bilirubin Direct Bilirubin AST ALT Alkaline Phosphatase Total Protein Albumin Urine Color Urine Appearance (Clear) Urine pH (4.5-7.5) Ur Specific [place] (1.000-1.030) Urine Protein (Negative) Urine Glucose (UA) (Negative) Urine Ketones (Negative) Urine Blood (Negative) Urine Nitrite (Negative) Urine Bilirubin (Negative) Urine Urobilinogen (Negative) Ur Leukocyte Esterase (Negative) Urine WBC (Auto) (0-5) /hpf Urine RBC (Auto) (0-4) /hpf U Hyaline Cast (Auto) (0-5) /lpf U Epithel Cells (Auto) (0-5) /lpf Urine Bacteria (Auto) (Negative) Urine Yeast (None Prsent)
[2018-07-03 05:21] LABS: Albumin Level 1.4 gm/dl (3.4-5.0); BUN Creatinine Ratio 17.9 (10-20); Bilirubin Direct 0.1 mg/dl (0-0.2); Calcium 8.8 mg/dl (8.5-10.1); Est GFR (African American) 13.7; Est GFR (Non-African American) 11.8; Magnesium 2.2 mg/dl (1.8-2.4)
[2018-07-03 05:24] LABS: Bilirubin,Total 0.4 mg/dl (0.2-1); Phosphorus 4.3 mg/dl (2.5-4.9); Total Protein 5.1 gm/dl (6.4-8.2)
[2018-07-03 05:29] LABS: Basophils # (auto) 0.08 K/uL (0-0.2); Echinocytes 1+; Eosinophils # (auto) 0.01 K/uL (0-0.5); Eosinophils % (auto) 0.1 %; Immature Granulocytes # (auto) 0.01 K/uL (0.00-0.02); Immature Granulocytes % (auto) 0.1 %; Lymphocytes # (auto) 1.87 K/uL (1.2-3.4); Lymphocytes % (auto) 24.4 %; Monocytes # (auto) 0.44 K/uL (0.11-0.59); Monocytes % (auto) 5.7 %; Neutrophils # (auto) 5.26 K/uL (1.4-6.5); Neutrophils % (auto) 68.7 %; Ovalocytes 1+
[2018-07-03] MEDS ORDERED: D5W AND 1/2NSS + 20MEQ KCL 20 MEQ/1,000 ML BAG IV SCH (05:30)
[2018-07-03] MEDS: POTASSIUM ACETATE 20 MEQ in 0.9 % SODIUM CHLORIDE 100 ML IV SCH ×3 (06:07→23:17)
[2018-07-03 06:10] LABS: Reticulocytes # 0.03 10^6/uL (0.02-0.10)
[2018-07-03] MEDS: HEPARIN SOD 5,000 UNIT/0.5 ML VIAL SQ SCH ×3 (06:18→21:08)
--- NOTE | 2018-07-03 07:13 | XRay Report ---
XR chest 1V portable HISTORY: 62 years-old Female intubation acute respiratory failure COMPARISON: Chest radiograph 07/02/2018 TECHNIQUE: Portable AP view of the chest FINDINGS: Endotracheal tube overlies the midline, 4.9 cm superior to the trevor. Enteric tube courses below the diaphragm outside the [id number]. Stable positioning of left subclavian central venous catheter. Cardiomediastinal and hilar silhouettes are unchanged. No pneumothorax. No large pleural effusion or overt pulmonary edema. Persistent right greater left bilateral mixed interstitial and alveolar opacit ies with slightly improved aeration of the left midlung. There is also mildly improved aeration of th e right upper lung. Bones of the chest appear grossly intact with degenerative changes of the shoulde rs and spine. IMPRESSION: 1. Endotracheal tube terminates 4.9 cm superior to the trevor. 2. Slightly improved aeration of the bilateral lungs with persistent right greater than left bilatera l interstitial and alveolar opacities. The above report was generated using voice recognition software. It may contain grammatical, syntax o r spelling errors. Electronically signed by: Magan Roberts M.D. 07/03/2018 7:11 AM
[2018-07-03] MEDS: ALBUT/IPRATROP 3MG/0.5MG NEB 3 ML VIAL NEB SCH ×4 (08:00→19:44)
[2018-07-03] MEDS: CLOPIDOGREL BISULFATE 75 MG TAB PO SCH (08:02)
[2018-07-03] MEDS: ATORVASTATIN 40 MG TAB PO SCH (08:02)
[2018-07-03] MEDS: CARVEDILOL 25 MG TAB PO SCH ×2 (08:02→18:16)
[2018-07-03] MEDS: MIDAZOLAM HCL 125 MG/250 ML BAG IV SCH (08:09)
[2018-07-03] MEDS: PEPTAMEN INTENSE VHP 1.0 CAL 1,000 ML BAG OG SCH (08:10)
[2018-07-03] MEDS: PANTOprazole 40 MG in SYRINGE 0 ML IV SCH (08:13)
[2018-07-03] MEDS ORDERED: INSULIN GLARGINE SOLOSTAR 100 UNITS/ML 3 ML PEN SC SCH (09:00)
--- NOTE | 2018-07-03 09:45 | Nephrology Progress Note ---
Date of Service July 03, 2018 Assessment & Plan (1) Acute kidney injury: -- Clinically consistent with ATN associated with sepsis, hypoxia, iodinated contrast (CTA), and JEANETTE inhibitor use. -- UA/microscopy with granular and hyaline cast. Also notable for proteinuria 4+ which is chronic with possible worsening. Microscopic hematuria with +WBC and +RBC noted. Culture negative. -- Cannot completely exclude acute GN but presentation would be unusual, will repeat UA/microscopy today. Recent pulmonary symptoms including sinus congestions/pain and hemoptysis may be associated with vasculitis (ANCA more likely than aBM) but imaging more consistent with infection and ARDS. Hemoglobin slightly decreased from 12 to 9.6. Platelets decreased from 165 to 110. No other evidence of TMA which would also be considered unlikely. ANCA ab and anti-BM antibody testing was sent as part of evaluation. -- Non oliguric. -- Volume status is acceptable. -- Metabolic profile is acceptable and there is no current indication for dialysis. -- Continue to document I/O's and monitor metabolic profile daily. -- Medications are currently appropriate for kidney function. -- Held home medications: JEANETTE and Aldactone. 40 minutes of critical care time spent with patient today. (2) Multifocal pneumonia: -- Remains ventilator dependent. -- Oxygenation improving. (3) CKD (chronic kidney disease), stage III: -- Baseline creatinine ~1.3 mg/dL. -- Baseline A4 proteinuria, 2.8 g/g random sample in November. -- CKD can be attributed to diabetic nephropathy and or possible sFSGS. (4) Hypertension: (5) Proteinuria: -- No significantly edematous. -- Hypoalbuminemia is new. -- BP was accelerated on admission is now improved. -- 24 hour urine collection results pending. Subjective No acute events overnight. Delfina remains ventilator dependent. Plan of care was reviewed with ICU team. UOP remains appropriate. Afebrile. Oxygenating well. Some bloody secretions noted from ETT. Patient was seen with her at the bedside. The 's questions were answered. Review of Systems Unobtainable due to endotracheal tube Physical Exam Vital Signs (Past 24 Hours): Last Vital Signs Temp 38.4 C H 07/02/18 13:31 Pulse 65 07/03/18 05:33 Resp 18 07/03/18 05:33 BP 133/59 L 07/03/18 02:00 Pulse Ox 94 07/03/18 05:33 Constitutional: + obese; no acute distress and not edematous Eyes: no scleral abnormality and no corneal abnormality ENMT: ETT Neck: trachea midline and + thick neck Respiratory: Auscultation: + rales and + rhonchi Cardiovascular: Heart Sounds: normal S1 and normal S2; no murmur Vessels: + JVD Extremities: no edema Gastrointestinal (Abdomen): Inspection/Auscultation: + abdomen distended and normal bowel sounds Percussion/Palpation: abdomen soft Musculoskeletal: Extremities: no cyanosis, no clubbing and no petechiae Skin: no rashes Genitourinary: Laws draining clear yellow urine Results & Data Laboratory Results Laboratory Results - last 24 hr 07/02/18 07/02/18 07/02/18 11:16 13:26 15:57 WBC RBC Hgb Hct MCV MCH MCHC RDW Std Deviation RDW Coeff of Braeden Plt Count MPV Immature Gran % (Auto) Neut % (Auto) Lymph % (Auto) [place] % (Auto) Eos % (Auto) Baso % (Auto) Reticulocyte % (Auto) Immature Gran # (Auto) Neut # (Auto) Lymph # (Auto) [place] # (Auto) Eos # (Auto) Baso # (Auto) Reticulocyte # Ovalocytes Echinocytes Sodium Potassium Chloride Carbon Dioxide Anion Gap BUN Creatinine Est Cr Clr Drug Dosing Est GFR ( Amer) Est GFR (Non-Af Amer) BUN/Creatinine Ratio Glucose POC Glucose 179 H 180 H Calcium Ionized Calcium Phosphorus Magnesium Total Bilirubin Direct Bilirubin AST ALT Alkaline Phosphatase Total Protein Albumin Urine Color Yellow Urine Appearance Cloudy H Urine pH 5.0 Ur Specific [place] 1.032 H Urine Protein 2+ H Urine Glucose (UA) Negative Urine Ketones Negative Urine Blood 2+ H Urine Nitrite Negative Urine Bilirubin Negative Urine Urobilinogen Negative Ur Leukocyte Esterase Negative Urine WBC (Auto) 5-10 H Urine RBC (Auto) 5-10 H U Hyaline Cast (Auto) 1-5 U Epithel Cells (Auto) >30 H Urine Bacteria (Auto) Negative Urine Yeast Budding H Blood Type Antibody Screen 07/02/18 07/03/18 07/03/18 20:01 00:57 04:40 WBC 7.67 RBC 3.00 L Hgb 8.2 L Hct 24.7 L MCV 82.3 MCH 27.3 MCHC 33.2 RDW Std Deviation 46.0 RDW Coeff of Braeden 15.3 H Plt Count 106 L MPV 10.3 Immature Gran % (Auto) 0.1 Neut % (Auto) 68.7 Lymph % (Auto) 24.4 [place] % (Auto) 5.7 Eos % (Auto) 0.1 Baso % (Auto) 1.0 Reticulocyte % (Auto) Immature Gran # (Auto) 0.01 Neut # (Auto) 5.26 Lymph # (Auto) 1.87 [place] # (Auto) 0.44 Eos # (Auto) 0.01 Baso # (Auto) 0.08 Reticulocyte # Ovalocytes 1+ Echinocytes 1+ Sodium Potassium Chloride Carbon Dioxide Anion Gap BUN Creatinine Est Cr Clr Drug Dosing Est GFR ( Amer) Est GFR (Non-Af Amer) BUN/Creatinine Ratio Glucose POC Glucose 174 H 154 H Calcium Ionized Calcium Phosphorus Magnesium Total Bilirubin Direct Bilirubin AST ALT Alkaline Phosphatase Total Protein Albumin Urine Color Urine Appearance Urine pH Ur Specific [place] Urine Protein Urine Glucose (UA) Urine Ketones Urine Blood Urine Nitrite Urine Bilirubin Urine Urobilinogen Ur Leukocyte Esterase Urine WBC (Auto) Urine RBC (Auto) U Hyaline Cast (Auto) U Epithel Cells (Auto) Urine Bacteria (Auto) Urine Yeast Blood Type Antibody Screen 07/03/18 07/03/18 07/03/18 04:40 04:40 04:46 WBC RBC Hgb Hct MCV MCH MCHC RDW Std Deviation RDW Coeff of Braeden Plt Count MPV Immature Gran % (Auto) Neut % (Auto) Lymph % (Auto) [place] % (Auto) Eos % (Auto) Baso % (Auto) Reticulocyte % (Auto) Immature Gran # (Auto) Neut # (Auto) Lymph # (Auto) [place] # (Auto) Eos # (Auto) Baso # (Auto) Reticulocyte # Ovalocytes Echinocytes Sodium 139 Potassium 3.0 L Chloride 105 Carbon Dioxide 25 Anion Gap 9.0 BUN 69 H Creatinine 3.85 H D Est Cr Clr Drug Dosing 20.0 Est GFR ( Amer) 13.7 Est GFR (Non-Af Amer) 11.8 BUN/Creatinine Ratio 17.9 Glucose 139 H POC Glucose 157 H Calcium 8.8 Ionized Calcium 1.20 Phosphorus 4.3 Magnesium 2.2 Total Bilirubin 0.4 Direct Bilirubin 0.1 AST 53 H ALT 29 Alkaline Phosphatase 41 L Total Protein 5.1 L Albumin 1.4 L Urine Color Urine Appearance Urine pH Ur Specific [place] Urine Protein Urine Glucose (UA) Urine Ketones Urine Blood Urine Nitrite Urine Bilirubin Urine Urobilinogen Ur Leukocyte Esterase Urine WBC (Auto) Urine RBC (Auto) U Hyaline Cast (Auto) U Epithel Cells (Auto) Urine Bacteria (Auto) Urine Yeast Blood Type Antibody Screen 07/03/18 07/03/18 07/03/18 05:56 05:56 07:59 WBC RBC Hgb Hct MCV MCH MCHC RDW Std Deviation RDW Coeff of Braeden Plt Count MPV Immature Gran % (Auto) Neut % (Auto) Lymph % (Auto) [place] % (Auto) Eos % (Auto) Baso % (Auto) Reticulocyte % (Auto) 1.0 Immature Gran # (Auto) Neut # (Auto) Lymph # (Auto) [place] # (Auto) Eos # (Auto) Baso # (Auto) Reticulocyte # 0.03 Ovalocytes Echinocytes Sodium Potassium Chloride Carbon Dioxide Anion Gap BUN Creatinine Est Cr Clr Drug Dosing Est GFR ( Amer) Est GFR (Non-Af Amer) BUN/Creatinine Ratio Glucose POC Glucose 165 H Calcium Ionized Calcium Phosphorus Magnesium Total Bilirubin Direct Bilirubin AST ALT Alkaline Phosphatase Total Protein Albumin Urine Color Urine Appearance Urine pH Ur Specific [place] Urine Protein Urine Glucose (UA) Urine Ketones Urine Blood Urine Nitrite Urine Bilirubin Urine Urobilinogen Ur Leukocyte Esterase Urine WBC (Auto) Urine RBC (Auto) U Hyaline Cast (Auto) U Epithel Cells (Auto) Urine Bacteria (Auto) Urine Yeast Blood Type A Positive Antibody Screen NEGATIVE (1) Hypertension Hypertension type: essential hypertension Qualified Code(s): I10 - Essential (primary) hypertension
[2018-07-03] MEDS ORDERED: FUROSEMIDE 100 MG in DEXTROSE 5% 90 ML IV SCH (13:15)
[2018-07-03] MEDS ORDERED: POTASSIUM ACETATE 20 MEQ in 0.9 % SODIUM CHLORIDE 100 ML IV SCH (13:30)
[2018-07-03 14:24] LABS: Urine Total Protein 105.2 mg/dl
[2018-07-03 14:45] LABS: Total Protein 24 Hour Urine 999.4 mg/24 Hr (0-149.1)
--- NOTE | 2018-07-03 15:27 | Hospitalist Progress Note ---
Date of Service July 03, 2018 Assessment & Plan (1) Acute respiratory failure with hypoxia: - Developed acute respiratory failure requiring BiPAP on 07/01, now upgraded to ICU & intubated for worsening resp failure. - Likely related to severe multi-focal PNA (viral?); CT chest was negative for PE. - Chest CT 06/30 showed severe multi-focal PNA; repeat CT chest 07/01 with progression of PNA, reactive lymph nodes. - S/p bronch on 07/01, BAL with no growth. - Discontinued IV antibiotics in setting of negative cultures. - ICU and Pulmonary following for medical management. (2) Multifocal pneumonia: - Diagnosed with URI on 06/27 as outpatient, received prescription for Amoxicillin but was likely not taking at home due to N/V. - Chest imaging findings as noted above. - BNP elevated at 19,529; Procalcitonin and Influenza negative. - Discontinued IV abx in setting of negative cultures. - Duonebs scheduled QID. - Pulmonary consulted, appreciate input. (3) Non-ischemic cardiomyopathy: - Now resolved per most recent TTE during this admission. - TTE showed EF 55-60%, no diastolic dysfunction noted. - Previous EF was 15% in setting of Avandia. (4) CHF (congestive heart failure): - H/o severe heart failure with EF 15%, was possibly related to Avandia. - Most recent echo showed EF of 55-60%. - Lwas placed for strict I/O's; monitor daily weights. - BNP was elevated at admission; trace right pleural effusion on chest imaging. (5) Elevated troponin: - Trop peaked at 0.68 then trended down. - Continue home statin, coreg, plavix as tolerated; holding Lisinopril and Lisinopril/HCTZ due to TANYA. - Cardiology consulted, appreciate input. (6) Diabetes: - Has had uncontrolled hyperglycemia -- ICU for glycemic management. - Most recent A1C was 8.1 in Apr 2018. (7) Hypertension: - Continue home Coreg; holding Lisinopril, Aldactone, and Lisinopril HCTZ due to TANYA. (8) Hyperlipidemia: - Continue statin as prescribed. (9) Acute kidney injury: - Creatinine trending up, likely related to ATN in setting of sepsis, ACEI at home, hypoxia, contrast with chest imaging studies. - Holding ACEI, Thiazide diuretic and Aldactone in setting of TANYA. - Continue to follow renal function closely. - Nephrology consulted, appreciate input. (10) CKD (chronic kidney disease), stage III: - Renally dose all meds. (11) Proteinuria: - With nephrotic range proteinuria (4+ on UA and Spot urine prot/smart energy specialist ratio at 11.1) - Consulted nephro, may have nephrotic range proteinuria. - 24 hour urine protein pending. - Risk of thrombosis/infections; doppler bilat LE negative for DVT, CT negative for PE. - Nephro following, appreciate input. (12) History of CVA (cerebrovascular accident): - History of left basal ganglia CVA in September 2016. - Continue statin and plavix as prescribed. (13) Anemia: - Hgb trending down, was 8.2 on morning labs. - Consider hemoccult, iron studies. - Follow CBC. (14) Thrombocytopenia: - Platelets trending down in setting of sepsis. - Monitor levels in setting of Plavix and Heparin therapy. (15) DVT prophylaxis: - Heparin 5,000 units q8hr. Dispo: ICU for acute hypoxic respiratory failure. CODE STATUS -- DNR, okay with intubation Supervising Physician Co-Signing Physician Notes Attending Attestation: Chart reviewed, care plan d/w RAMÍREZ Lott. I agree w/ the weaver components of her documentation. Pt remains critically ill on the ventilator. Possible ARDS. Would be in favor of resuming antibiotic therapy for possible pneumonia given her critical illness, fevers, etc. Appreciate ICU management. Chris Mcgraw MD Subjective Pt. remains intubated, ICU team following. Review of Systems Unobtainable due to cognitive status Physical Exam Vital Signs (Past 24 Hours): Last Vital Signs Temp 38.4 C H 07/02/18 13:31 Pulse 70 07/03/18 10:55 Resp 20 07/03/18 10:55 BP 169/64 H 07/03/18 11:31 Pulse Ox 93 07/03/18 10:55 Physical Exam: General: Intubated. HEENT: NC/AT; PERRLA with EOMI; [place] conjunctiva, MMM. Neck: Supple and nontender Cardiac: +tachycardia. Lungs: intubated; diminished throughout Abdomen: Bowel normoactive X 4; Nontender to palpation Extremities: Warm. No edema present Neuro: No focal weakness Skin: No rash Results & Data Laboratory Results 07/03/18 07/03/18 07/03/18 Range/Units 11:28 10:37 07:59 WBC (4.8-10.8) K/uL RBC (4.2-5.4) M/uL Hgb (12.0-16.0) g/dL Hct (37-47) % MCV (80-100) fL MCH (25-34) pg MCHC (32-36) g/dL RDW Std Deviation (36.4-46.3) fL RDW Coeff of Braeden (11.5-14.5) % Plt Count (130-400) K/uL MPV (7.4-10.4) fL Immature Gran % (Auto) % Neut % (Auto) % Lymph % (Auto) % [place] % (Auto) % Eos % (Auto) % Baso % (Auto) % Reticulocyte % (Auto) (0.5-2.0) % Immature Gran # (Auto) (0.00-0.02) K/uL Neut # (Auto) (1.4-6.5) K/uL Lymph # (Auto) (1.2-3.4) K/uL [place] # (Auto) (0.11-0.59) K/uL Eos # (Auto) (0-0.5) K/uL Baso # (Auto) (0-0.2) K/uL Reticulocyte # (0.02-0.10) 10^6/uL Ovalocytes Echinocytes Sodium (136-145) mmol/L Potassium (3.5-5.1) mmol/L Chloride (98-107) mmol/L Carbon Dioxide (21-32) mmol/L Anion Gap (3-11) BUN (7-18) mg/dl Creatinine (0.6-1.2) mg/dl Est Cr Clr Drug Dosing ml/min Est GFR ( Amer) Est GFR (Non-Af Amer) BUN/Creatinine Ratio (10-20) Glucose (70-99) mg/dl POC Glucose 171 H 165 H (70-99) Calcium (8.5-10.1) mg/dl Ionized Calcium (1.12-1.32) mmol/L Phosphorus (2.5-4.9) mg/dl Magnesium (1.8-2.4) mg/dl Total Bilirubin (0.2-1) mg/dl Direct Bilirubin (0-0.2) mg/dl AST (15-37) U/L ALT (12-78) U/L Alkaline Phosphatase (45-117) U/L Total Protein (6.4-8.2) gm/dl Albumin (3.4-5.0) gm/dl Urine Total Volume mL Ur Total Protein 24 Hr (0-149.1) mg/24 Hr Urine Total Protein mg/dl Anti-Proteinase 3 Pending Anti-Myeloperoxidase Pending ANCA Pending Glomerular Base Memb Ab Pending Blood Type Antibody Screen 07/03/18 07/03/18 07/03/18 Range/Units 05:56 05:56 04:46 WBC (4.8-10.8) K/uL RBC (4.2-5.4) M/uL Hgb (12.0-16.0) g/dL Hct (37-47) % MCV (80-100) fL MCH (25-34) pg MCHC (32-36) g/dL RDW Std Deviation (36.4-46.3) fL RDW Coeff of Braeden (11.5-14.5) % Plt Count (130-400) K/uL MPV (7.4-10.4) fL Immature Gran % (Auto) % Neut % (Auto) % Lymph % (Auto) % [place] % (Auto) % Eos % (Auto) % Baso % (Auto) % Reticulocyte % (Auto) 1.0 (0.5-2.0) % Immature Gran # (Auto) (0.00-0.02) K/uL Neut # (Auto) (1.4-6.5) K/uL Lymph # (Auto) (1.2-3.4) K/uL [place] # (Auto) (0.11-0.59) K/uL Eos # (Auto) (0-0.5) K/uL Baso # (Auto) (0-0.2) K/uL Reticulocyte # 0.03 (0.02-0.10) 10^6/uL Ovalocytes Echinocytes Sodium (136-145) mmol/L Potassium (3.5-5.1) mmol/L Chloride (98-107) mmol/L Carbon Dioxide (21-32) mmol/L Anion Gap (3-11) BUN (7-18) mg/dl Creatinine (0.6-1.2) mg/dl Est Cr Clr Drug Dosing ml/min Est GFR ( Amer) Est GFR (Non-Af Amer) BUN/Creatinine Ratio (10-20) Glucose (70-99) mg/dl POC Glucose 157 H (70-99) Calcium (8.5-10.1) mg/dl Ionized Calcium (1.12-1.32) mmol/L Phosphorus (2.5-4.9) mg/dl Magnesium (1.8-2.4) mg/dl Total Bilirubin (0.2-1) mg/dl Direct Bilirubin (0-0.2) mg/dl AST (15-37) U/L ALT (12-78) U/L Alkaline Phosphatase (45-117) U/L Total Protein (6.4-8.2) gm/dl Albumin (3.4-5.0) gm/dl Urine Total Volume mL Ur Total Protein 24 Hr (0-149.1) mg/24 Hr Urine Total Protein mg/dl Anti-Proteinase 3 Anti-Myeloperoxidase ANCA Glomerular Base Memb Ab Blood Type A Positive Antibody Screen NEGATIVE 07/03/18 07/03/18 07/03/18 Range/Units 04:40 04:40 04:40 WBC 7.67 (4.8-10.8) K/uL RBC 3.00 L (4.2-5.4) M/uL Hgb 8.2 L (12.0-16.0) g/dL Hct 24.7 L (37-47) % MCV 82.3 (80-100) fL MCH 27.3 (25-34) pg MCHC 33.2 (32-36) g/dL RDW Std Deviation 46.0 (36.4-46.3) fL RDW Coeff of Braeden 15.3 H (11.5-14.5) % Plt Count 106 L (130-400) K/uL MPV 10.3 (7.4-10.4) fL Immature Gran % (Auto) 0.1 % Neut % (Auto) 68.7 % Lymph % (Auto) 24.4 % [place] % (Auto) 5.7 % Eos % (Auto) 0.1 % Baso % (Auto) 1.0 % Reticulocyte % (Auto) (0.5-2.0) % Immature Gran # (Auto) 0.01 (0.00-0.02) K/uL Neut # (Auto) 5.26 (1.4-6.5) K/uL Lymph # (Auto) 1.87 (1.2-3.4) K/uL [place] # (Auto) 0.44 (0.11-0.59) K/uL Eos # (Auto) 0.01 (0-0.5) K/uL Baso # (Auto) 0.08 (0-0.2) K/uL Reticulocyte # (0.02-0.10) 10^6/uL Ovalocytes 1+ Echinocytes 1+ Sodium 139 (136-145) mmol/L Potassium 3.0 L (3.5-5.1) mmol/L Chloride 105 (98-107) mmol/L Carbon Dioxide 25 (21-32) mmol/L Anion Gap 9.0 (3-11) BUN 69 H (7-18) mg/dl Creatinine 3.85 H D (0.6-1.2) mg/dl Est Cr Clr Drug Dosing 20.0 ml/min Est GFR ( Amer) 13.7 Est GFR (Non-Af Amer) 11.8 BUN/Creatinine Ratio 17.9 (10-20) Glucose 139 H (70-99) mg/dl POC Glucose (70-99) Calcium 8.8 (8.5-10.1) mg/dl Ionized Calcium 1.20 (1.12-1.32) mmol/L Phosphorus 4.3 (2.5-4.9) mg/dl Magnesium 2.2 (1.8-2.4) mg/dl Total Bilirubin 0.4 (0.2-1) mg/dl Direct Bilirubin 0.1 (0-0.2) mg/dl AST 53 H (15-37) U/L ALT 29 (12-78) U/L Alkaline Phosphatase 41 L (45-117) U/L Total Protein 5.1 L (6.4-8.2) gm/dl Albumin 1.4 L (3.4-5.0) gm/dl Urine Total Volume mL Ur Total Protein 24 Hr (0-149.1) mg/24 Hr Urine Total Protein mg/dl Anti-Proteinase 3 Anti-Myeloperoxidase ANCA Glomerular Base Memb Ab Blood Type Antibody Screen 07/03/18 07/02/18 07/02/18 Range/Units 00:57 20:01 15:57 WBC (4.8-10.8) K/uL RBC (4.2-5.4) M/uL Hgb (12.0-16.0) g/dL Hct (37-47) % MCV (80-100) fL MCH (25-34) pg MCHC (32-36) g/dL RDW Std Deviation (36.4-46.3) fL RDW Coeff of Braeden (11.5-14.5) % Plt Count (130-400) K/uL MPV (7.4-10.4) fL Immature Gran % (Auto) % Neut % (Auto) % Lymph % (Auto) % [place] % (Auto) % Eos % (Auto) % Baso % (Auto) % Reticulocyte % (Auto) (0.5-2.0) % Immature Gran # (Auto) (0.00-0.02) K/uL Neut # (Auto) (1.4-6.5) K/uL Lymph # (Auto) (1.2-3.4) K/uL [place] # (Auto) (0.11-0.59) K/uL Eos # (Auto) (0-0.5) K/uL Baso # (Auto) (0-0.2) K/uL Reticulocyte # (0.02-0.10) 10^6/uL Ovalocytes Echinocytes Sodium (136-145) mmol/L Potassium (3.5-5.1) mmol/L Chloride (98-107) mmol/L Carbon Dioxide (21-32) mmol/L Anion Gap (3-11) BUN (7-18) mg/dl Creatinine (0.6-1.2) mg/dl Est Cr Clr Drug Dosing ml/min Est GFR ( Amer) Est GFR (Non-Af Amer) BUN/Creatinine Ratio (10-20) Glucose (70-99) mg/dl POC Glucose 154 H 174 H 180 H (70-99) Calcium (8.5-10.1) mg/dl Ionized Calcium (1.12-1.32) mmol/L Phosphorus (2.5-4.9) mg/dl Magnesium (1.8-2.4) mg/dl Total Bilirubin (0.2-1) mg/dl Direct Bilirubin (0-0.2) mg/dl AST (15-37) U/L ALT (12-78) U/L Alkaline Phosphatase (45-117) U/L Total Protein (6.4-8.2) gm/dl Albumin (3.4-5.0) gm/dl Urine Total Volume mL Ur Total Protein 24 Hr (0-149.1) mg/24 Hr Urine Total Protein mg/dl Anti-Proteinase 3 Anti-Myeloperoxidase ANCA Glomerular Base Memb Ab Blood Type Antibody Screen 07/02/18 Range/Units 13:45 WBC (4.8-10.8) K/uL RBC (4.2-5.4) M/uL Hgb (12.0-16.0) g/dL Hct (37-47) % MCV (80-100) fL MCH (25-34) pg MCHC (32-36) g/dL RDW Std Deviation (36.4-46.3) fL RDW Coeff of Braeden (11.5-14.5) % Plt Count (130-400) K/uL MPV (7.4-10.4) fL Immature Gran % (Auto) % Neut % (Auto) % Lymph % (Auto) % [place] % (Auto) % Eos % (Auto) % Baso % (Auto) % Reticulocyte % (Auto) (0.5-2.0) % Immature Gran # (Auto) (0.00-0.02) K/uL Neut # (Auto) (1.4-6.5) K/uL Lymph # (Auto) (1.2-3.4) K/uL [place] # (Auto) (0.11-0.59) K/uL Eos # (Auto) (0-0.5) K/uL Baso # (Auto) (0-0.2) K/uL Reticulocyte # (0.02-0.10) 10^6/uL Ovalocytes Echinocytes Sodium (136-145) mmol/L Potassium (3.5-5.1) mmol/L Chloride (98-107) mmol/L Carbon Dioxide (21-32) mmol/L Anion Gap (3-11) BUN (7-18) mg/dl Creatinine (0.6-1.2) mg/dl Est Cr Clr Drug Dosing ml/min Est GFR ( Amer) Est GFR (Non-Af Amer) BUN/Creatinine Ratio (10-20) Glucose (70-99) mg/dl POC Glucose (70-99) Calcium (8.5-10.1) mg/dl Ionized Calcium (1.12-1.32) mmol/L Phosphorus (2.5-4.9) mg/dl Magnesium (1.8-2.4) mg/dl Total Bilirubin (0.2-1) mg/dl Direct Bilirubin (0-0.2) mg/dl AST (15-37) U/L ALT (12-78) U/L Alkaline Phosphatase (45-117) U/L Total Protein (6.4-8.2) gm/dl Albumin (3.4-5.0) gm/dl Urine Total Volume 950 mL Ur Total Protein 24 Hr 999.4 H (0-149.1) mg/24 Hr Urine Total Protein 105.2 mg/dl Anti-Proteinase 3 Anti-Myeloperoxidase ANCA Glomerular Base Memb Ab Blood Type Antibody Screen (1) Diabetes Diabetes mellitus complication status: without complication Diabetes mellitus long term acute care registered nurse insulin use: with prison use Diabetes mellitus type: type 2 Qualified Code(s): E11.9 - Type 2 diabetes mellitus without complications; Z79.4 - MCFP (current) use of insulin (2) CHF (congestive heart failure) Heart failure chronicity: chronic Heart failure type: systolic Qualified Code(s): I50.22 - Chronic systolic (congestive) heart failure (3) Hypertension Hypertension type: essential hypertension Qualified Code(s): I10 - Essential (primary) hypertension
[2018-07-03] MEDS ORDERED: SUCCINYLCHOLINE CHLORIDE 20 MG/ML 10 ML VIAL IV ONE (15:56)
[2018-07-03] MEDS ORDERED: fentaNYL citrate 100 MCG/2 ML VIAL IV ONE (15:56)
[2018-07-03] MEDS ORDERED: ETOMIDATE 2 MG/ML 20 ML VIAL IV ONE (15:56)
[2018-07-03] MEDS ORDERED: MIDAZOLAM HCL 5 MG/ML VIAL IV ONE (15:56)
[2018-07-03] MEDS ORDERED: VECURONIUM BROMIDE 10 MG VIAL IV ONE (15:56)
[2018-07-03 15:59] LABS: Appearance Urine Clear (Clear); Bilirubin Urine Negative (Negative); Blood Urine 2+ (Negative); Color Urine Yellow; Glucose Urine UA Negative (Negative); Ketones Urine Negative (Negative); Leukocyte Esterase Urine Negative (Negative); Nitrite Urine Negative (Negative); Protein Urine 1+ (Negative); Specific Gravity Urine 1.015 (1.000-1.030); Urobilinogen Urine Negative (Negative); pH Urine 5.5 (4.5-7.5)
[2018-07-03 16:10] LABS: Epithelial Cell Urine 0-5 /lpf (0-5); RBC Urine 0-4 /hpf (0-4); WBC Urine 0-5 /hpf (0-5)
[2018-07-03 16:11] LABS: Bacteria Urine Negative (Negative)
[2018-07-03 17:59] LABS: Hematocrit (blood only) 24.6 % (37-47); Hemoglobin 8.2 g/dL (12.0-16.0); Mean Corpuscular Volume 82.3 fL (80-100); Platelet Count 121 K/uL (130-400); RDW Coefficient of Variation 15.2 % (11.5-14.5); RDW Standard Deviation 45.8 fL (36.4-46.3); Red Blood Count 2.99 M/uL (4.2-5.4); White Blood Count 8.19 K/uL (4.8-10.8)
[2018-07-03 18:02] LABS: Mean Corpuscular Hgb Conc 33.3 g/dL (32-36)
--- NOTE | 2018-07-03 18:12 | XRay Report ---
XR chest 1V portable CLINICAL HISTORY: Follow up COMPARISON STUDY: Chest radiograph July 03, 2018 at 6:46 AM. FINDINGS: Left subclavian central line is in place. There is no pneumothorax. There is a small right pleural effusion. Tip of endotracheal tube is 6.3 cm above the trevor. Cardiomediastinal silhouette i s stable. Dense right lung consolidation persists. Airspace opacities within the left lung are unchan ged. Tip of nasogastric tube is below the lower aspect of this image but at least within the body of the stomach. IMPRESSION: 1. Tip of endotracheal tube 6.3 cm above the trevor. The tube could be advanced 2 cm. 2. No significant change in findings suggestive of multifocal pneumonia. Electronically signed by: Jonathan An M.D. 07/03/2018 6:11 PM
[2018-07-03 18:16] LABS: BUN Creatinine Ratio 16.6 (10-20); Creatinine Clr Calc Pharmacy 19.7 ml/min; Est GFR (African American) 13.4; Est GFR (Non-African American) 11.6; Potassium 3.1 mmol/L (3.5-5.1)
[2018-07-03] MEDS ORDERED: CARVEDILOL 25 MG TAB PO ONE (18:23)
[2018-07-03] MEDS ORDERED: METOPROLOL TARTRATE 1 MG/ML VIAL IV STA (18:26)
[2018-07-03] MEDS: AMLODIPINE BESYLATE 5 MG TAB PO SCH (19:01)
[2018-07-03] MEDS: POTASSIUM CHLORIDE / WTR 20 MEQ/100 ML PLCT IV SCH ×2 (19:02→21:06)
[2018-07-03] MEDS: INSULIN GLARGINE SOLOSTAR 100 UNITS/ML 3 ML PEN SC SCH (21:07)
[2018-07-04] MEDS: INSULIN ASPART 100 UNITS/ML 3 ML PEN SC SCH ×6 (00:56→20:32)
[2018-07-04] MEDS: POTASSIUM ACETATE 20 MEQ in 0.9 % SODIUM CHLORIDE 100 ML IV SCH (01:23)
[2018-07-04] MEDS: fentaNYL citrate 100 MCG/2 ML VIAL IV PRN ×5 (01:23→21:00)
[2018-07-04] MEDS ORDERED: HydrALAZINE HCL 20 MG/ML VIAL IV STA (04:46)
[2018-07-04 05:17] LABS: HCO3 ABG 26 mmol/L (19-24); PCO2 ABG 39 mmHg (35-46); PO2 ABG 76 mm/Hg (80-95); pH ABG 7.43 (7.35-7.45)
[2018-07-04 05:21] LABS: Allen Test Pos (Pos)
[2018-07-04 05:26] LABS: Hematocrit (blood only) 25.4 % (37-47); Hemoglobin 8.3 g/dL (12.0-16.0); Mean Corpuscular Hgb Conc 32.7 g/dL (32-36); Mean Corpuscular Volume 82.7 fL (80-100); Mean Platelet Volume 10.5 fL (7.4-10.4); Platelet Count 141 K/uL (130-400); RDW Coefficient of Variation 15.3 % (11.5-14.5); RDW Standard Deviation 46.4 fL (36.4-46.3); Red Blood Count 3.07 M/uL (4.2-5.4); White Blood Count 7.82 K/uL (4.8-10.8)
[2018-07-04 05:43] LABS: Albumin Level 1.4 gm/dl (3.4-5.0); Bilirubin Direct 0.1 mg/dl (0-0.2); Bilirubin,Total 0.2 mg/dl (0.2-1); Calcium 9.2 mg/dl (8.5-10.1); Creatinine Clr Calc Pharmacy 20.4 ml/min; Est GFR (African American) 14.1; Est GFR (Non-African American) 12.1; Magnesium 2.1 mg/dl (1.8-2.4); Phosphorus 3.4 mg/dl (2.5-4.9); Potassium 4.1 mmol/L (3.5-5.1); Total Protein 5.4 gm/dl (6.4-8.2)
[2018-07-04] MEDS: MIDAZOLAM HCL 125 MG/250 ML BAG IV SCH (05:55)
[2018-07-04] MEDS: HEPARIN SOD 5,000 UNIT/0.5 ML VIAL SQ SCH ×3 (05:57→22:42)
[2018-07-04 06:11] LABS: Basophils # (auto) 0.07 K/uL (0-0.2); Basophils % (auto) 0.9 %; Eosinophils # (auto) 0.14 K/uL (0-0.5); Eosinophils % (auto) 1.8 %; Immature Granulocytes # (auto) 0.02 K/uL (0.00-0.02); Immature Granulocytes % (auto) 0.3 %; Lymphocytes # (auto) 2.02 K/uL (1.2-3.4); Lymphocytes % (auto) 25.8 %; Monocytes # (auto) 0.67 K/uL (0.11-0.59); Monocytes % (auto) 8.6 %; Neutrophils % (auto) 62.6 %; RBC Morphology Unremarkable
[2018-07-04] MEDS ORDERED: PROPOFOL 1,000 MG/100 ML VIAL IV STA (07:05)
[2018-07-04] MEDS: ALBUT/IPRATROP 3MG/0.5MG NEB 3 ML VIAL NEB SCH ×4 (07:07→21:24)
--- NOTE | 2018-07-04 07:18 | XRay Report ---
XR chest 1V portable HISTORY: intubation COMPARISON: Chest 07/03/2018. FINDINGS: The endotracheal tube terminates 5.5 centers in the trevor. Left subclavian central venous catheter terminates in the expected location of the distal SVC. Nasogastric tube terminates below the diaphragm. The tip is not included on this study. Small bilateral pleural effusions persist. Pulmona ry edema and right lung airspace opacities have slightly improved. The heart remains enlarged. No pne umothorax. IMPRESSION: 1. The endotracheal tube is at the upper limits of normal could be advanced by approximately 2 cm. Ot herwise, satisfactory support line placement. 2. Slight improved aeration within the right lung and slight improvement in the pulmonary edema. 3. Bilateral small pleural effusions persist. Electronically signed by: Malik Montanez M.D. 07/04/2018 7:17 AM
[2018-07-04] MEDS: CLOPIDOGREL BISULFATE 75 MG TAB PO SCH (08:42)
[2018-07-04] MEDS: CARVEDILOL 25 MG TAB PO SCH ×2 (08:42→20:31)
[2018-07-04] MEDS: ATORVASTATIN 40 MG TAB PO SCH (08:42)
[2018-07-04] MEDS: AMLODIPINE BESYLATE 5 MG TAB PO SCH (08:42)
[2018-07-04] MEDS: PEPTAMEN INTENSE VHP 1.0 CAL 1,000 ML BAG OG SCH (08:43)
[2018-07-04] MEDS: SODIUM CHLORIDE 0.9% 1000ML 1,000 ML IV SCH (08:43)
[2018-07-04] MEDS: PANTOprazole 40 MG in SYRINGE 0 ML IV SCH (08:44)
[2018-07-04] MEDS ORDERED: INSULIN GLARGINE SOLOSTAR 100 UNITS/ML 3 ML PEN SC ONE (09:00)
--- NOTE | 2018-07-04 09:51 | Nephrology Progress Note ---
Date of Service July 04, 2018 Assessment & Plan (1) Acute kidney injury: -- Clinical presentation c/w ATN due to sepsis, iodinated contrast administration (CTA), and JEANETTE inhibitor use -- Kidney function is stable at this time. Volume status and electrolyte balance are acceptable. Patient remains nonoliguric -- Urine microscopy today shows clearing of hematuria. Urinalysis shows less proteinuria -- Cannot completely exclude acute GN but presentation would be unusual. Awaiting results of ANCA and anti-GBM antibody testing -- Held home medications: JEANETTE and Aldactone. (2) CKD (chronic kidney disease), stage III: -- Baseline creatinine ~1.3 mg/dL. -- Baseline A4 proteinuria, 2.8 g/g random sample in November. -- CKD can be attributed to diabetic nephropathy and or possible FSGS. (3) Multifocal pneumonia: -- Remains ventilator dependent. -- Oxygenation improving. (4) Proteinuria: -- Not significantly edematous. -- 24 hour urine collection reveals ~ 1 g protein (5) S/P admission to ICU (intensive care unit): -- 40 minutes of critical care time spent with patient today. Subjective Mrs. Reyna was seen & examined in the ICU this morning. She was overbreathing the ventilator and is now sedated w/ Propofol. She is now down to 35% FiO2. [employer]ARM LABORERstaff anesthetist reports that they will attempt weaning trials today. The patient remains nonoliguric Physical Exam Vital Signs (Past 24 Hours): Last Vital Signs Temp 37.3 C 07/04/18 04:00 Pulse 71 07/04/18 07:42 Resp 24 07/04/18 07:42 BP 157/56 H 07/04/18 08:00 Pulse Ox 94 07/04/18 07:42 Eyes: PERRL, conjunctivae normal, anicteric sclerae Neck: trachea midline, no thyromegaly Cardiovascular: RRR, no murmur, no edema Gastrointestinal (Abdomen): normal bowel sounds, soft, nontender, no hepatosplenomegaly Results & Data Laboratory Results Laboratory Tests 07/03/18 07/04/18 07/04/18 15:48 05:07 05:07 WBC 7.82 Hgb 8.3 L Hct 25.4 L Plt Count 141 Sodium 144 Potassium 4.1 D Chloride 110 H Carbon Dioxide 25 BUN 68 H Creatinine 3.77 H Urine Color Yellow Urine Appearance Clear Urine pH 5.5 Ur Specific [place] 1.015 Urine Protein 1+ H Urine Glucose (UA) Negative Urine Blood 2+ H Urine Nitrite Negative Urine RBC 0-4 Diagnostic Findings 07/03 CXR: The endotracheal tube terminates 5.5 centers in the trevor. Left subclavian central venous catheter terminates in the expected location of the distal SVC. Nasogastric tube terminates below the diaphragm. The tip is not included on this study. Small bilateral pleural effusions persist. Pulmonary edema and right lung airspace opacities have slightly improved. The heart remains enlarged. No pneumothorax.
[2018-07-04] MEDS ORDERED: LANTUS PER UNIT CHARGE SQ STA (09:55)
[2018-07-04] MEDS ORDERED: AMLODIPINE BESYLATE 5 MG TAB PO ONE (10:08)
--- NOTE | 2018-07-04 10:13 | Critical Care Progress Note ---
Date of Service July 04, 2018 Assessment & Plan (1) Acute respiratory failure with hypoxia: Neuro- sedated on proprofol. sedation vacation today CV- HD stable. hypertension on carvediol. increase amlodipine. holding lisinopril with renal failure. PRN labetolol. atorvastatin, clopidogrel Pulmonary- acute hypoxic respiratory failure due to ARDS and pneumonia. improved oxygenation. will wake up and try SBT ID- cultures negative so far abx stopped yesterday possible viral infection Renal- acute renal failure likely ATN slightly improved Cr. good UOP GI-continue tube feeds Heme- anemia. heparin proph Endocrine- blood sugars controlled Dispo- continue ICU care for ventilatory support DNR I have personally spent 45 minutes of critical care time in the direct management of this patient. This is a life/limb threatening event. This includes time spent evaluating patient, direct bedside care, chart review, placing orders, interpretation of diagnostic studies, discussion with consultants, patient, and/or family members regarding treatment decisions, as well as other required patient management activities. This time is exclusive of all separately billable procedures, and teaching time and separate from and in addition to any other critical care service time. Present on Admission?: Yes Subjective remains on vent BP high switched to proprofol for sedation which has helped Physical Exam Vital Signs (Past 24 Hours): Last Vital Signs Temp 37.3 C 07/04/18 04:00 Pulse 71 07/04/18 07:42 Resp 24 07/04/18 07:42 BP 157/56 H 07/04/18 08:00 Pulse Ox 94 07/04/18 07:42 Constitutional: WD/WN, vitals as above no acute distress Eyes: sclerae not anicteric Neck: trachea midline Respiratory: normal respiratory effort; no respiratory distress Auscultation: + diminished lung sounds Cardiovascular: RRR, no murmur, no edema Gastrointestinal (Abdomen): normal bowel sounds, soft, nontender, no hepatosplenomegaly Musculoskeletal: no cyanosis or clubbing, extremities motor strength 5/5 Skin: no rashes, warm and dry Neurologic: sedated Results & Data Laboratory Results Laboratory Tests 07/04/18 07/04/18 05:07 05:07 WBC 7.82 Hct 25.4 L Plt Count 141 Sodium 144 Potassium 4.1 D Chloride 110 H Carbon Dioxide 25 BUN 68 H Creatinine 3.77 H Glucose 127 H
[2018-07-04] MEDS ORDERED: PEPTAMEN INTENSE VHP 1.0 CAL 1,000 ML BAG OG SCH (10:45)
[2018-07-04] MEDS: LABETALOL HCL IV 5 MG/ML 20ML IV PRN (11:41)
--- NOTE | 2018-07-04 12:11 | Pharmacy Report ---
Pharmacy Glycemic Short Note 2 - Date of Service July 04, 2018 - Glycemic Short BSG Results (Last 24 hours): 07/03/18 07/03/18 07/03/18 15:45 17:43 20:06 Glucose 100 H POC Glucose 126 H 122 H 07/04/18 07/04/18 07/04/18 00:46 04:36 05:07 Glucose 127 H POC Glucose 126 H 139 H 07/04/18 08:40 Glucose POC Glucose 160 H OUTPATIENT ANTIDIABETIC REGIMEN: * N/A * HbA1c: 8.1% (04/26/18) ASSESSMENT: * Changes to stressors * Patient continues on vent * Paralytics stopped * D5 containing fluids stopped 07/03 afternoon * Tubefeeds (Peptamen VHP / low CHO) started 07/03 afternoon. Titrating up this AM. * BSG's and insulin requirements have changed significantly since yesterday afternoon (when D5 IVF d/c and TF started) - BSG's improved, ranging 122-139 mg/dL and insulin requirements significantly decreased (no Novolog administered) * Will decrease Lantus as BSG's have been on lower end of goal range and I'm concerned for hypoglycemia given recent changes to stressors * OK to add loose CHO ratio as TF rate is increasing PLAN FOR INPATIENT GLYCEMIC CONTROL: * Basal insulin * Lantus 5 units SQ this morning * Lantus scale this evening (0 or 5 units based on BSG) * Bolus insulin * NovoLog per scale Q4hrs while NPO * Goal Range: Low 120 mg/dL - High 150 mg/dL * Correction Factor: 20 mg/dL/unit * Carb ratio: 10 g CHO/unit
[2018-07-04] MEDS: PROPOFOL 1,000 MG/100 ML VIAL IV SCH ×3 (13:02→18:15)
--- NOTE | 2018-07-04 20:08 | Hospitalist Progress Note ---
Date of Service July 04, 2018 Assessment & Plan (1) Acute respiratory failure with hypoxia: Initially thought 2nd to b/l community-acquired pneumonia. Patient worsened after admission and transitioned to BiPAP on 07/01. Intubated later on 07/01 after failing BIPAP. Underwent bronch by Dr. Carcamo in the ICU - cultures to date negative. Has remained vented since 07/01. There has been some concern of ARDS in the setting of her sepsis and pneumonia. Antibiotics were d/c over the weekend; would be in favor of resuming these as she had <4 days of Rx. Defer vent management to critical care team. Present on Admission?: Yes (2) Multifocal pneumonia: bilateral. see discussion above in acute hypoxic respiratory failure. Present on Admission?: Yes (3) Acute kidney injury: Likely sepsis-associated ATN in setting of sepsis. JEANETTE inhibitor use and IV contrast may have contributed. Nephrology following; recs appreciated. Holding JEANETTE, Thiazide diuretic and Aldactone. Daily BMP. Creatinine appears to be slowly improving. No indication for acute HD at this time. Present on Admission?: No (4) Severe sepsis: with ATN, respiratory failure, etc. source- pulmonary. continue supportive care. Present on Admission?: No (5) Non-ischemic cardiomyopathy: history of such - now resolved. (6) CHF (congestive heart failure): History of systolic CHF. Now resolved. CVPs are normal. No evidence of decompensated CHF. (7) Elevated troponin: Likely due to myocardial demand ischemia. (8) Diabetes: control adequate. appreciate pharmacy for glycemic management. Present on Admission?: Yes (9) Hypertension: Agree with increase in coreg and addition of CCB. Consider hydralazine or nitrates if needed. Present on Admission?: Yes (10) Hyperlipidemia: statin (11) CKD (chronic kidney disease), stage III: baseline Cr about 1.3. now with ATN. (12) Proteinuria: 24 hour urine protein with 1 gram. Proteinuria likely contributing to hypoalbuminemia. Appreciate nephrology assistance. ANCA, anti-GBM pending. (13) History of CVA (cerebrovascular accident): History of left basal ganglia CVA in September 2016. Cont plavix, statin, etc. (14) Anemia: Would check fecal occult, iron studies, b12, folate. CBC in am. (15) Thrombocytopenia: Likely due to severe sepsis. Supportive care. CBC in am. (16) Morbid obesity with BMI of 40.0-44.9, adult: BMI 40 (17) Hypoalbuminemia: severe. continue enteral nutrition. (18) DVT prophylaxis: Heparin 5,000 units q8hr. Subjective events of last 24 hours noted. remains sedated and intubated on the vent. receiving tube feedings w/o difficulty. still with low-grade fevers. FiO2 requirement 30% and PEEP 5. Review of Systems Unobtainable due to endotracheal tube Physical Exam Vital Signs (Past 24 Hours): Last Vital Signs Temp 37.3 C 07/04/18 18:01 Pulse 67 07/04/18 18:01 Resp 26 H 07/04/18 15:23 BP 185/68 H 07/04/18 18:01 Pulse Ox 93 07/04/18 18:01 Constitutional: + morbidly obese; no acute distress sedated, intubated ENMT: ETT and enteric tube in place Respiratory: normal respiratory effort; no respiratory distress Ausc ultation: + crackles (b/l, much worse on right; no wheezes or rhonchi) Cardiovascular: Rate/Rhythm: regular rate and regular rhythm Heart Sounds: normal S1 and normal S2; no murmur Vessels: posterior tibial pulses present and dorsalis pedis pulses present; no JVD Extremities: no pedal edema Gastrointestinal (Abdomen): normal bowel sounds, soft, nontender, no hepatosplenomegaly Psychiatric: sedated Results & Data Laboratory Results Laboratory Results - last 24 hr 07/03/18 07/04/18 07/04/18 20:06 00:46 04:36 WBC RBC Hgb Hct MCV MCH MCHC RDW Std Deviation RDW Coeff of Braeden Plt Count MPV Immature Gran % (Auto) Neut % (Auto) Lymph % (Auto) [place] % (Auto) Eos % (Auto) Baso % (Auto) Immature Gran # (Auto) Neut # (Auto) Lymph # (Auto) [place] # (Auto) Eos # (Auto) Baso # (Auto) RBC Morphology ABG pH ABG pCO2 ABG pO2 ABG HCO3 ABG O2 Saturation ABG Base Excess [place] Test Barometric Pressure Oxygen Given Sodium Potassium Chloride Carbon Dioxide Anion Gap BUN Creatinine Est Cr Clr Drug Dosing Est GFR ( Amer) Est GFR (Non-Af Amer) BUN/Creatinine Ratio Glucose POC Glucose 122 H 126 H 139 H Calcium Phosphorus Magnesium Total Bilirubin Direct Bilirubin AST ALT Alkaline Phosphatase Total Protein Albumin 07/04/18 07/04/18 07/04/18 05:07 05:07 05:07 WBC 7.82 RBC 3.07 L Hgb 8.3 L Hct 25.4 L MCV 82.7 MCH 27.0 MCHC 32.7 RDW Std Deviation 46.4 H RDW Coeff of Braeden 15.3 H Plt Count 141 MPV 10.5 H Immature Gran % (Auto) 0.3 Neut % (Auto) 62.6 Lymph % (Auto) 25.8 [place] % (Auto) 8.6 Eos % (Auto) 1.8 Baso % (Auto) 0.9 Immature Gran # (Auto) 0.02 Neut # (Auto) 4.90 Lymph # (Auto) 2.02 [place] # (Auto) 0.67 H Eos # (Auto) 0.14 Baso # (Auto) 0.07 RBC Morphology Unremarkable ABG pH 7.43 ABG pCO2 39 ABG pO2 76 L ABG HCO3 26 H ABG O2 Saturation 93.0 ABG Base Excess 1.2 [place] Test Pos Barometric Pressure 736.5 Oxygen Given 30% Sodium 144 Potassium 4.1 D Chloride 110 H Carbon Dioxide 25 Anion Gap 9.0 BUN 68 H Creatinine 3.77 H Est Cr Clr Drug Dosing 20.4 Est GFR ( Amer) 14.1 Est GFR (Non-Af Amer) 12.1 BUN/Creatinine Ratio 18.0 Glucose 127 H POC Glucose Calcium 9.2 Phosphorus 3.4 Magnesium 2.1 Total Bilirubin 0.2 Direct Bilirubin 0.1 AST 51 H ALT 29 Alkaline Phosphatase 50 Total Protein 5.4 L Albumin 1.4 L 07/04/18 07/04/18 07/04/18 08:40 12:19 16:00 WBC RBC Hgb Hct MCV MCH MCHC RDW Std Deviation RDW Coeff of Braeden Plt Count MPV Immature Gran % (Auto) Neut % (Auto) Lymph % (Auto) [place] % (Auto) Eos % (Auto) Baso % (Auto) Immature Gran # (Auto) Neut # (Auto) Lymph # (Auto) [place] # (Auto) Eos # (Auto) Baso # (Auto) RBC Morphology ABG pH ABG pCO2 ABG pO2 ABG HCO3 ABG O2 Saturation ABG Base Excess [place] Test Barometric Pressure Oxygen Given Sodium Potassium Chloride Carbon Dioxide Anion Gap BUN Creatinine Est Cr Clr Drug Dosing Est GFR ( Amer) Est GFR (Non-Af Amer) BUN/Creatinine Ratio Glucose POC Glucose 160 H 163 H 157 H Calcium Phosphorus Magnesium Total Bilirubin Direct Bilirubin AST ALT Alkaline Phosphatase Total Protein Albumin Diagnostic Findings cxr - IMPRESSION: 1. The endotracheal tube is at the upper limits of normal could be advanced by approximately 2 cm. Otherwise, satisfactory support line placement. 2. Slight improved aeration within the right lung and slight improvement in the pulmonary edema. 3. Bilateral small pleural effusions persist. (1) CHF (congestive heart failure) Heart failure type: systolic Heart failure chronicity: chronic Qualified Code(s): I50.22 - Chronic systolic (congestive) heart failure (2) Diabetes Diabetes mellitus type: type 2 Diabetes mellitus care home insulin use: with ocean transportation intermediary use Diabetes mellitus complication status: without complication Qualified Code(s): E11.9 - Type 2 diabetes mellitus without complications; Z79.4 - medical terminologist (current) use of insulin (3) Hypertension Hypertension type: essential hypertension Qualified Code(s): I10 - Essential (primary) hypertension (4) Hyperlipidemia Hyperlipidemia type: mixed hyperlipidemia Qualified Code(s): E78.2 - Mixed hyperlipidemia (5) Proteinuria Proteinuria type: other Qualified Code(s): R80.8 - Other proteinuria (6) Anemia Anemia type: unspecified type Qualified Code(s): D64.9 - Anemia, unspecified
[2018-07-04] MEDS: INSULIN GLARGINE SOLOSTAR 100 UNITS/ML 3 ML PEN SC SCH (20:35)
[2018-07-05] MEDS: PROPOFOL 1,000 MG/100 ML VIAL IV SCH ×5 (00:38→13:41)
[2018-07-05] MEDS: INSULIN ASPART 100 UNITS/ML 3 ML PEN SC SCH ×7 (00:40→23:42)
[2018-07-05] MEDS: fentaNYL citrate 100 MCG/2 ML VIAL IV PRN ×5 (01:20→22:35)
[2018-07-05 04:46] LABS: Hematocrit (blood only) 24.3 % (37-47); Hemoglobin 7.9 g/dL (12.0-16.0); Mean Corpuscular Hgb Conc 32.5 g/dL (32-36); Mean Corpuscular Volume 83.5 fL (80-100); Mean Platelet Volume 10.3 fL (7.4-10.4); Platelet Count 162 K/uL (130-400); RDW Coefficient of Variation 15.4 % (11.5-14.5); RDW Standard Deviation 47.8 fL (36.4-46.3); Red Blood Count 2.91 M/uL (4.2-5.4); White Blood Count 6.47 K/uL (4.8-10.8)
[2018-07-05 05:03] LABS: BUN Creatinine Ratio 19.3 (10-20); Calcium 9.2 mg/dl (8.5-10.1); Creatinine Clr Calc Pharmacy 20.1 ml/min; Est GFR (African American) 13.8; Est GFR (Non-African American) 11.9; Magnesium 2.3 mg/dl (1.8-2.4); Potassium 3.9 mmol/L (3.5-5.1)
[2018-07-05 05:08] LABS: Phosphorus 3.7 mg/dl (2.5-4.9)
[2018-07-05] MEDS: HEPARIN SOD 5,000 UNIT/0.5 ML VIAL SQ SCH ×3 (05:13→22:01)
[2018-07-05 05:31] LABS: Basophils # (auto) 0.03 K/uL (0-0.2); Basophils % (auto) 0.5 %; Eosinophils # (auto) 0.28 K/uL (0-0.5); Eosinophils % (auto) 4.3 %; Immature Granulocytes # (auto) 0.04 K/uL (0.00-0.02); Immature Granulocytes % (auto) 0.6 %; Lymphocytes # (auto) 1.76 K/uL (1.2-3.4); Lymphocytes % (auto) 27.2 %; Monocytes # (auto) 0.69 K/uL (0.11-0.59); Monocytes % (auto) 10.7 %; Neutrophils # (auto) 3.67 K/uL (1.4-6.5); Neutrophils % (auto) 56.7 %; RBC Morphology Unremarkable
[2018-07-05] MEDS: PEPTAMEN INTENSE VHP 1.0 CAL 1,000 ML BAG OG SCH (05:56)
[2018-07-05] MEDS: ALBUT/IPRATROP 3MG/0.5MG NEB 3 ML VIAL NEB SCH ×4 (07:07→19:45)
--- NOTE | 2018-07-05 07:59 | Critical Care Progress Note ---
Date of Service July 05, 2018 Assessment & Plan (1) Acute respiratory failure with hypoxia: Neuro- sedated on proprofol. sedation vacation today. fentanyl for pain control CV- HD stable. hypertension on carvediol. amlodipine. holding lisinopril with renal failure. atorvastatin, clopidogrel Pulmonary- acute hypoxic respiratory failure due to ARDS and pneumonia. improved oxygenation. will wake up and try SBT again today ID- cultures negative so far abx stopped 07/03 possible viral infection. monitor off abx Renal- acute renal failure likely ATN slightly Cr about the same. good UOP GI- continue tube feeds Heme- anemia. heparin proph Endocrine- blood sugars controlled Dispo- continue ICU care for ventilatory support DNR I have personally spent 45 minutes of critical care time in the direct management of this patient. This is a life/limb threatening event. This includes time spent evaluating patient, direct bedside care, chart review, placing orders, interpretation of diagnostic studies, discussion with consultants, patient, and/or family members regarding treatment decisions, as well as other required patient management activities. This time is exclusive of all separately billable procedures, and teaching time and separate from and in addition to any other critical care service time. Subjective remains on vent failed SBT yesterday due to tachypnea and work of breathing Physical Exam Vital Signs (Past 24 Hours): Last Vital Signs Temp 37.3 C 07/04/18 18:01 Pulse 62 07/05/18 07:07 Resp 19 07/05/18 07:07 BP 176/69 H 07/05/18 06:01 Pulse Ox 94 07/05/18 07:07 Physical Exam: Constitutional: WD/WN, vitals as above no acute distress Eyes: sclerae not anicteric Neck: trachea midline Respiratory: normal respiratory effort; no respiratory distress Auscultation: + diminished lung sounds Cardiovascular: RRR, no murmur, no edema Gastrointestinal (Abdomen): normal bowel sounds, soft, nontender, no hepatosplenomegaly Musculoskeletal: no cyanosis or clubbing, Skin: no rashes, warm and dry Neurologic: sedated
[2018-07-05] MEDS ORDERED: INSULIN GLARGINE SOLOSTAR 100 UNITS/ML 3 ML PEN SC ONE (08:00)
[2018-07-05] MEDS ORDERED: FUROSEMIDE 40 MG in SYRINGE 0 ML IV ONE (08:30)
[2018-07-05] MEDS: AMLODIPINE BESYLATE 5 MG TAB PO SCH (08:32)
[2018-07-05] MEDS: CLOPIDOGREL BISULFATE 75 MG TAB PO SCH (08:33)
[2018-07-05] MEDS: ATORVASTATIN 40 MG TAB PO SCH (08:33)
[2018-07-05] MEDS: CARVEDILOL 25 MG TAB PO SCH ×2 (08:33→20:29)
[2018-07-05 08:50] LABS: Folate (Folic Acid) 6.46 ng/ml (>5.38); Vitamin B12 > 2000 pg/ml (211-911)
[2018-07-05] MEDS: LABETALOL HCL IV 5 MG/ML 20ML IV PRN ×2 (09:22→16:17)
--- NOTE | 2018-07-05 09:41 | Pharmacy Report ---
Pharmacy Glycemic Short Note 2 - Date of Service July 05, 2018 - Glycemic Short BSG Results (Last 24 hours): 07/04/18 07/04/18 07/04/18 12:19 16:00 20:27 Glucose POC Glucose 163 H 157 H 196 H 07/05/18 07/05/18 07/05/18 00:32 04:36 04:40 Glucose 159 H POC Glucose 186 H 182 H 07/05/18 07:57 Glucose POC Glucose 171 H OUTPATIENT ANTIDIABETIC REGIMEN: * N/A * HbA1c: 8.1% (04/26/18) ASSESSMENT: * Stressors * Patient continues on vent, although may be extubated today per ICU rounds * Paralytics stopped * D5 containing fluids stopped 07/03 afternoon * Tubefeeds (Peptamen VHP / low CHO) started 07/03 afternoon. Titrated up to goal 65 mL/hr (of note - patient did not receive for ~few hours overnight 2nd leaking per RESEARCH SOIL SCIENTIST Nancy) * BSG's have increased slightlly after reduced dose of Lantus yesterday, ranging 157-196 mg/dL over the last 24 hours * Will increase Lantus * Will slightly tighten CHO ratio PLAN FOR INPATIENT GLYCEMIC CONTROL: * Basal insulin * Lantus 10 units SQ this morning * Lantus scale this evening (0 or 5 units based on BSG) * Bolus insulin * NovoLog per scale Q4hrs while NPO * Goal Range: Low 120 mg/dL - High 150 mg/dL * Correction Factor: 20 mg/dL/unit * Carb ratio: 8 g CHO/unit
--- NOTE | 2018-07-05 10:38 | Nephrology Progress Note ---
Date of Service July 05, 2018 Assessment & Plan (1) Acute kidney injury: -- Clinical presentation c/w ATN due to sepsis, iodinated contrast administration (CTA), and JEANETTE inhibitor use -- Kidney function is stable at this time. Volume status and electrolyte balance are acceptable. Patient remains nonoliguric -- Urine microscopy today shows clearing of hematuria. Urinalysis shows less proteinuria -- Cannot completely exclude acute GN but presentation would be unusual. Awaiting results of ANCA and anti-GBM antibody testing (pending as of 07/05/18 am) -- Held home medications: JEANETTE and Aldactone. (2) CKD (chronic kidney disease), stage III: -- Baseline creatinine ~1.3 mg/dL. -- Baseline A4 proteinuria, 2.8 g/g random sample in November. -- CKD can be attributed to diabetic nephropathy and or possible FSGS. (3) Multifocal pneumonia: -- Remains ventilator dependent. -- Oxygenation improving. (4) Proteinuria: -- Not significantly edematous. -- 24 hour urine collection reveals ~ 1 g protein (5) S/P admission to ICU (intensive care unit): -- 40 minutes of critical care time spent with patient today. Plan of care discussed w/ ICU staff. Subjective Mrs. Reyna was seen & examined in the ICU this morning. She becomes agitated and hypertensive when woken up. She is again sedated. FiO2 has been weaned to 30% FiO2. [employer] CUTTERmedical staff physician reports that they will attempt weaning trials today. The patient remains nonoliguric Physical Exam Vital Signs (Past 24 Hours): Last Vital Signs Temp 37.3 C 07/04/18 18:01 Pulse 66 07/05/18 09:01 Resp 19 07/05/18 07:07 BP 219/86 H 07/05/18 09:01 Pulse Ox 95 07/05/18 09:01 Eyes: PERRL, conjunctivae normal, anicteric sclerae Neck: trachea midline, no thyromegaly Cardiovascular: RRR, no murmur, no edema Gastrointestinal (Abdomen): normal bowel sounds, soft, nontender, no hepatosplenomegaly Results & Data Laboratory Results Laboratory Tests 07/01/18 07/03/18 07/03/18 18:40 10:37 15:48 WBC Hgb Hct Plt Count Sodium Potassium Chloride Carbon Dioxide BUN Creatinine Glucose Transferrin % Sat Ferritin Urine Color Yellow Urine Appearance Clear Urine pH 5.5 Ur Specific [place] 1.015 Urine Protein 1+ H Urine Glucose (UA) Negative Urine Blood 2+ H Anti-Proteinase 3 Pending Anti-Myeloperoxidase Pending ANCA Pending Glomerular Base Memb Ab Pending Influenza Type A (PCR) Neg for Influ A Influenza Type B (PCR) Neg for Influ B 07/05/18 07/05/18 04:36 04:36 WBC 6.47 Hgb 7.9 L Hct 24.3 L Plt Count 162 Sodium 145 Potassium 3.9 Chloride 112 H Carbon Dioxide 27 BUN 74 H Creatinine 3.83 H Glucose 159 H Transferrin % Sat 15 Ferritin 675.0 H Urine Color Urine Appearance Urine pH Ur Specific [place] Urine Protein Urine Glucose (UA) Urine Blood Anti-Proteinase 3 Anti-Myeloperoxidase ANCA Glomerular Base Memb Ab Influenza Type A (PCR) Influenza Type B (PCR) (1) Proteinuria Proteinuria type: other Qualified Code(s): R80.8 - Other proteinuria
[2018-07-05 11:06] LABS: Appearance Urine Clear (Clear); Bacteria Urine Automated Negative (Negative); Bilirubin Urine Negative (Negative); Blood Urine Trace (Negative); Color Urine Yellow; Glucose Urine UA Negative (Negative); Ketones Urine Negative (Negative); Leukocyte Esterase Urine Negative (Negative); Nitrite Urine Negative (Negative); Protein Urine Negative (Negative); Specific Gravity Urine 1.012 (1.000-1.030); Urobilinogen Urine Negative (Negative)
[2018-07-05 11:26] LABS: Creatinine Urine Random 15.4 mg/dl; Total Protein Urine Random 29.1 mg/dl (0-11.9)
[2018-07-05] MEDS: PANTOprazole 40 MG in SYRINGE 0 ML IV SCH (11:57)
[2018-07-05] MEDS ORDERED: HydrALAZINE HCL 20 MG/ML VIAL IV STA (13:22)
[2018-07-05] MEDS ORDERED: HydrALAZINE HCL 20 MG/ML VIAL ONE (13:38)
[2018-07-05] MEDS: INSULIN GLARGINE SOLOSTAR 100 UNITS/ML 3 ML PEN SC SCH (20:25)
[2018-07-05] MEDS ORDERED: DC ALL PREVIOUSLY ORDERED DIABETES MEDS ONE (20:59)
[2018-07-05] MEDS ORDERED: INSULIN ASPART 100 UNITS/ML 3 ML PEN SC SCH (21:00)
--- NOTE | 2018-07-05 21:06 | Hospitalist Progress Note ---
Date of Service July 05, 2018 Assessment & Plan (1) Lethargy: Despite her sedation being weaned off this am she has remained lethargic most of today. In light of persistently high blood pressures and prior h/o stroke I was concerned about a stroke or other [employer] process. Thus CT head was obtained - this did not reveal any acute pathology. [id number] if her lethargy persists will need additional work-up. Check ammonia level in am. Consider MRI brain. With the elevated BPs could she have hypertensive encephalopathy? PRES? Serial exams. Present on Admission?: No (2) Hypertension: I am uncertain why she has remained persistently hypertensive despite escalating doses of IV and PO BP meds. She has had little to no response to most IV BP med pushes. Consider an infusion of calcium channel pepper to gain better BP control. In light of lethargy - could she have hypertensive encephalopathy? Would check EKG in am to ensure no ischemic changes. (3) Acute respiratory failure with hypoxia: Initially thought 2nd to b/l community-acquired pneumonia. Patient worsened after admission and transitioned to BiPAP on 07/01. Intubated later on 07/01 after failing BIPAP. Underwent bronch by Dr. Carcamo in the ICU - cultures to date negative. Has remained vented since 07/01. There has been some concern of ARDS in the setting of her sepsis and pneumonia. Defer vent management to critical care team. Present on Admission?: Yes (4) Multifocal pneumonia: bilateral. see discussion above in acute hypoxic respiratory failure. would be in favor of resuming antibiotics to complete a full course of such. (5) Acute kidney injury: Likely sepsis-associated ATN in setting of sepsis. JEANETTE inhibitor use and IV contrast may have contributed. Nephrology following; recs appreciated. Holding JEANETTE, Thiazide diuretic and Aldactone. Daily BMP. Creatinine appears to have plateaued. She remains nonoliguric and had nice response to lasix. No indication for acute HD at this time. (6) Severe sepsis: with ATN, respiratory failure, etc. source- pulmonary. continue supportive care. (7) Non-ischemic cardiomyopathy: history of such - now resolved. (8) CHF (congestive heart failure): History of systolic CHF. Now resolved. CVPs are normal. No evidence of decompensated CHF although she has positive fluid balance. lasix given today to help optimize pulmonary status and prepare her for extubation from the vent. (9) Elevated troponin: Likely due to myocardial demand ischemia. (10) Diabetes: consider insulin infusion due to rising BSGs. appreciate pharmacy for glycemic management. (11) Hyperlipidemia: statin (12) CKD (chronic kidney disease), stage III: baseline Cr about 1.3. now with ATN. (13) Proteinuria: 24 hour urine protein with 1 gram. Proteinuria likely contributing to hypoalbuminemia. Appreciate nephrology assistance. ANCA, anti-GBM pending. (14) History of CVA (cerebrovascular accident): History of left basal ganglia CVA in September 2016. Cont plavix, statin, etc. Repeat CT head tonight negative. Consider MRI brain. (15) Anemia: Fecal occult, iron studies, b12, folate -- all negative/normal. CBC in am. Tx if hemoglobin approaches 7. (16) Thrombocytopenia: Likely due to severe sepsis. resolved. (17) Morbid obesity with BMI of 40.0-44.9, adult: BMI 40 (18) Hypoalbuminemia: severe. continue enteral nutrition. (19) DVT prophylaxis: Heparin 5,000 units q8hr. updated at bedside. Subjective events of last 24 hours reviewed. propofol sedation weaned off this am. despite such she remained quite lethargic this afternoon. also with refractory HTN despite numerous medications tried for such. at bedside. Review of Systems Unobtainable due to endotracheal tube Physical Exam 2 Vital Signs (Past 24 Hours): Last Vital Signs Temp 37.3 C 07/04/18 18:01 Pulse 85 07/05/18 19:50 Resp 27 H 07/05/18 19:50 BP 195/85 H 07/05/18 19:01 Pulse Ox 94 07/05/18 19:50 Constitutional: + morbidly obese; no acute distress scantly opens eyes to command; does not follow commands otherwise Respiratory: normal respiratory effort; no respiratory distress Auscultation: + crackles (improved today); no wheezes Cardiovascular: Rate/Rhythm: regular rate and regular rhythm Heart Sounds: normal S1 and normal S2; no murmur Vessels: posterior tibial pulses present and dorsalis pedis pulses present; no JVD Extremities: no pedal edema Gastrointestinal (Abdomen): normal bowel sounds, soft, nontender, no hepatosplenomegaly Neurologic: does not follow commands to check motor function; reflexes 1+ b/l upper/lower extremities; plantar responses equivacol Results & Data Laboratory Results Laboratory Results - last 24 hr 07/05/18 07/05/18 07/05/18 00:32 04:36 04:36 WBC 6.47 RBC 2.91 L Hgb 7.9 L Hct 24.3 L MCV 83.5 MCH 27.1 MCHC 32.5 RDW Std Deviation 47.8 H RDW Coeff of [place] 15.4 H Plt Count 162 MPV 10.3 Immature Gran % (Auto) 0.6 Neut % (Auto) 56.7 Lymph % (Auto) 27.2 [place] % (Auto) 10.7 Eos % (Auto) 4.3 Baso % (Auto) 0.5 Immature Gran # (Auto) 0.04 H Neut # (Auto) 3.67 Lymph # (Auto) 1.76 [place] # (Auto) 0.69 H Eos # (Auto) 0.28 Baso # (Auto) 0.03 RBC Morphology Unremarkable Sodium 145 Potassium 3.9 Chloride 112 H Carbon Dioxide 27 Anion Gap 6.0 BUN 74 H Creatinine 3.83 H Est Cr Clr Drug Dosing 20.1 Est GFR ( Amer) 13.8 Est GFR (Non-Af Amer) 11.9 BUN/Creatinine Ratio 19.3 Glucose 159 H POC Glucose 186 H Calcium 9.2 Phosphorus 3.7 Magnesium 2.3 Iron 25 L Transferrin 117 L Transferrin % Sat 15 Ferritin 675.0 H Vitamin B12 Folate Urine Color Urine Appearance Urine pH Ur Specific [place] Urine Protein Urine Glucose (UA) Urine Ketones Urine Blood Urine Nitrite Urine Bilirubin Urine Urobilinogen Ur Leukocyte Esterase Urine WBC (Auto) Urine RBC (Auto) U Hyaline Cast (Auto) U Epithel Cells (Auto) Urine Bacteria (Auto) Ur Random Creatinine U Random Total Protein Protein/Creatinin Ratio Stool Occult Bld Scrn 07/05/18 07/05/18 07/05/18 04:36 04:40 07:57 WBC RBC Hgb Hct MCV MCH MCHC RDW Std Deviation RDW Coeff of [place] Plt Count MPV Immature Gran % (Auto) Neut % (Auto) Lymph % (Auto) [place] % (Auto) Eos % (Auto) Baso % (Auto) Immature Gran # (Auto) Neut # (Auto) Lymph # (Auto) [place] # (Auto) Eos # (Auto) Baso # (Auto) RBC Morphology Sodium Potassium Chloride Carbon Dioxide Anion Gap BUN Creatinine Est Cr Clr Drug Dosing Est GFR ( Amer) Est GFR (Non-Af Amer) BUN/Creatinine Ratio Glucose POC Glucose 182 H 171 H Calcium Phosphorus Magnesium Iron Transferrin Transferrin % Sat Ferritin Vitamin B12 > 2000 H Folate 6.46 Urine Color Urine Appearance Urine pH Ur Specific [place] Urine Protein Urine Glucose (UA) Urine Ketones Urine Blood Urine Nitrite Urine Bilirubin Urine Urobilinogen Ur Leukocyte Esterase Urine WBC (Auto) Urine RBC (Auto) U Hyaline Cast (Auto) U Epithel Cells (Auto) Urine Bacteria (Auto) Ur Random Creatinine U Random Total Protein Protein/Creatinin Ratio Stool Occult Bld Scrn 07/05/18 07/05/18 07/05/18 10:48 10:48 11:53 WBC RBC Hgb Hct MCV MCH MCHC RDW Std Deviation RDW Coeff of Bra[place] Plt Count MPV Immature Gran % (Auto) Neut % (Auto) Lymph % (Auto) [place] % (Auto) Eos % (Auto) Baso % (Auto) Immature Gran # (Auto) Neut # (Auto) Lymph # (Auto) [place] # (Auto) Eos # (Auto) Baso # (Auto) RBC Morphology Sodium Potassium Chloride Carbon Dioxide Anion Gap BUN Creatinine Est Cr Clr Drug Dosing Est GFR ( Amer) Est GFR (Non-Af Amer) BUN/Creatinine Ratio Glucose POC Glucose 175 H Calcium Phosphorus Magnesium Iron Transferrin Transferrin % Sat Ferritin Vitamin B12 Folate Urine Color Yellow Urine Appearance Clear Urine pH 5.0 Ur Specific [place] 1.012 Urine Protein Negative Urine Glucose (UA) Negative Urine Ketones Negative Urine Blood Trace H Urine Nitrite Negative Urine Bilirubin Negative Urine Urobilinogen Negative Ur Leukocyte Esterase Negative Urine WBC (Auto) 1-5 Urine RBC (Auto) 5-10 H U Hyaline Cast (Auto) 1-5 U Epithel Cells (Auto) 10-20 H Urine Bacteria (Auto) Negative Ur Random Creatinine 15.4 U Random Total Protein 29.1 H Protein/Creatinin Ratio 1.9 H Stool Occult Bld Scrn 07/05/18 07/05/18 07/05/18 15:37 16:00 20:16 WBC RBC Hgb Hct MCV MCH MCHC RDW Std Deviation RDW Coeff of [place] Plt Count MPV Immature Gran % (Auto) Neut % (Auto) Lymph % (Auto) [place] % (Auto) Eos % (Auto) Baso % (Auto) Immature Gran # (Auto) Neut # (Auto) Lymph # (Auto) [place] # (Auto) Eos # (Auto) Baso # (Auto) RBC Morphology Sodium Potassium Chloride Carbon Dioxide Anion Gap BUN Creatinine Est Cr Clr Drug Dosing Est GFR ( Amer) Est GFR (Non-Af Amer) BUN/Creatinine Ratio Glucose POC Glucose 253 H 252 H Calcium Phosphorus Magnesium Iron Transferrin Transferrin % Sat Ferritin Vitamin B12 Folate Urine Color Urine Appearance Urine pH Ur Specific [place] Urine Protein Urine Glucose (UA) Urine Ketones Urine Blood Urine Nitrite Urine Bilirubin Urine Urobilinogen Ur Leukocyte Esterase Urine WBC (Auto) Urine RBC (Auto) U Hyaline Cast (Auto) U Epithel Cells (Auto) Urine Bacteria (Auto) Ur Random Creatinine U Random Total Protein Protein/Creatinin Ratio Stool Occult Bld Scrn Negative 07/05/18 21:41 WBC RBC Hgb Hct MCV MCH MCHC RDW Std Deviation RDW Coeff of [place] Plt Count MPV Immature Gran % (Auto) Neut % (Auto) Lymph % (Auto) [place] % (Auto) Eos % (Auto) Baso % (Auto) Immature Gran # (Auto) Neut # (Auto) Lymph # (Auto) [place] # (Auto) Eos # (Auto) Baso # (Auto) RBC Morphology Sodium Potassium Chloride Carbon Dioxide Anion Gap BUN Creatinine Est Cr Clr Drug Dosing Est GFR ( Amer) Est GFR (Non-Af Amer) BUN/Creatinine Ratio Glucose POC Glucose 240 H Calcium Phosphorus Magnesium Iron Transferrin Transferrin % Sat Ferritin Vitamin B12 Folate Urine Color Urine Appearance Urine pH Ur Specific [place] Urine Protein Urine Glucose (UA) Urine Ketones Urine Blood Urine Nitrite Urine Bilirubin Urine Urobilinogen Ur Leukocyte Esterase Urine WBC (Auto) Urine RBC (Auto) U Hyaline Cast (Auto) U Epithel Cells (Auto) Urine Bacteria (Auto) Ur Random Creatinine U Random Total Protein Protein/Creatinin Ratio Stool Occult Bld Scrn (1) Diabetes Diabetes mellitus complication status: without complication Diabetes mellitus intermediate insulin use: with intermediate use Diabetes mellitus type: type 2 Qualified Code(s): E11.9 - Type 2 diabetes mellitus without complications; Z79.4 - 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 [employer]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
--- NOTE | 2018-07-05 21:46 | CT Scan Report ---
HEAD CT NONCONTRAST CT DOSE: 884.08 mGy.cm HISTORY: altered mental status, severe HTN, h/o CVA TECHNIQUE: Multiaxial CT images of the head were performed without the use of intravenous contrast. A utomated exposure control was utilized for this study. A dose lowering technique was utilized adheri ng to the principles of ALARA. Comparison: Head CT 09/25/2016. Findings: Fluid levels within the ethmoid air cells and left sphenoid sinus. Partially visualized end otracheal tube and orogastric tube are noted. The mastoid air cells are clear. No change in the old l acunar infarct within the left basal ganglia. The calvarium and skull base are intact. The ventricles and sulci are within normal limits. There is no mass, hematoma, midline shift, or acute infarct. Impression: No acute intracranial abnormality. Mild sinus disease as described above. Electronically signed by: Malik Montanez M.D. 07/05/2018 9:44 PM
[2018-07-05] MEDS ORDERED: INSULIN PROTOCOL GOAL RANGE ONE (22:00)
[2018-07-05] MEDS ORDERED: SEVERE STRESS LEVEL ONE (22:00)
[2018-07-05] MEDS ORDERED: NovoLIN-R BOLUS FROM BAG IV ONE (22:10)
[2018-07-05] MEDS ORDERED: Nursing to Pharmacy Communication ONE (22:18)
[2018-07-05] MEDS: INSULIN REGULAR 250 UNITS in SODIUM CHLORIDE 0.9% 247.5 ML IV SCH (22:22)
[2018-07-06] MEDS: LABETALOL HCL IV 5 MG/ML 20ML IV PRN (00:45)
[2018-07-06] MEDS: fentaNYL citrate 100 MCG/2 ML VIAL IV PRN ×4 (00:51→20:02)
[2018-07-06] MEDS ORDERED: Nursing to Pharmacy Communication ONE (01:05)
[2018-07-06 04:27] LABS: Hematocrit (blood only) 25.3 % (37-47); Hemoglobin 8.2 g/dL (12.0-16.0); Mean Corpuscular Hgb Conc 32.4 g/dL (32-36); Mean Corpuscular Volume 83.8 fL (80-100); Mean Platelet Volume 10.1 fL (7.4-10.4); Platelet Count 198 K/uL (130-400); RDW Coefficient of Variation 15.3 % (11.5-14.5); Red Blood Count 3.02 M/uL (4.2-5.4); White Blood Count 7.26 K/uL (4.8-10.8)
[2018-07-06 04:45] LABS: BUN Creatinine Ratio 25.4 (10-20); Calcium 9.5 mg/dl (8.5-10.1); Creatinine Clr Calc Pharmacy 22.1 ml/min; Est GFR (African American) 15.5; Est GFR (Non-African American) 13.4; Magnesium 2.3 mg/dl (1.8-2.4); Potassium 3.6 mmol/L (3.5-5.1)
[2018-07-06 05:04] LABS: Basophils # (auto) 0.02 K/uL (0-0.2); Basophils % (auto) 0.3 %; Eosinophils # (auto) 0.47 K/uL (0-0.5); Eosinophils % (auto) 6.5 %; Immature Granulocytes # (auto) 0.11 K/uL (0.00-0.02); Immature Granulocytes % (auto) 1.5 %; Lymphocytes # (auto) 1.63 K/uL (1.2-3.4); Lymphocytes % (auto) 22.5 %; Neutrophils # (auto) 4.23 K/uL (1.4-6.5); Neutrophils % (auto) 58.2 %; RBC Morphology Unremarkable
[2018-07-06] MEDS: INSULIN ASPART 100 UNITS/ML 3 ML PEN SC SCH ×5 (06:18→21:22)
[2018-07-06] MEDS: HEPARIN SOD 5,000 UNIT/0.5 ML VIAL SQ SCH ×3 (06:18→22:36)
[2018-07-06] MEDS: AMLODIPINE BESYLATE 5 MG TAB PO SCH (07:43)
[2018-07-06] MEDS: ATORVASTATIN 40 MG TAB PO SCH (07:43)
[2018-07-06] MEDS: CLOPIDOGREL BISULFATE 75 MG TAB PO SCH (07:44)
[2018-07-06] MEDS: CARVEDILOL 25 MG TAB PO SCH ×2 (07:44→22:36)
[2018-07-06] MEDS: ALBUT/IPRATROP 3MG/0.5MG NEB 3 ML VIAL NEB SCH ×4 (07:45→19:33)
--- NOTE | 2018-07-06 07:51 | Critical Care Progress Note ---
Date of Service July 06, 2018 Assessment & Plan (1) Acute respiratory failure with hypoxia: Neuro- off sedation. mental status remains poor. continue monitor off sedation. CT head without cause. ?PRES CV- HD stable. hypertension on carvediol. amlodipine, hydralazine. added nicardipine as BP remains very uncontrolled. holding lisinopril with renal failure. atorvastatin, clopidogrel Pulmonary- acute hypoxic respiratory failure due to ARDS and pneumonia. improved oxygenation. will try SBT once more awake ID- cultures negative so far abx stopped 07/03 possible viral infection. monitor off abx Renal- acute renal failure likely ATN slightly Cr improved. good UOP. hypernatr emia increase free water GI- continue tube feeds Heme- anemia. heparin proph Endocrine- blood sugars controlled on insulin drip Dispo- continue ICU care for ventilatory support DNR I have personally spent 45 minutes of critical care time in the direct management of this patient. This is a life/limb threatening event. This includes time spent evaluating patient, direct bedside care, chart review, placing orders, interpretation of diagnostic studies, discussion with consultants, patient, and/or family members regarding treatment decisions, as well as other required patient management activities. This time is exclusive of all separately billable procedures, and teaching time and separate from and in addition to any other critical care service time. Subjective remains on vent mental status remains poor off sedation Physical Exam Vital Signs (Past 24 Hours): Last Vital Signs Temp 36.7 C 07/06/18 07:01 Pulse 72 07/06/18 07:01 Resp 18 07/06/18 06:00 BP 207/89 H 07/06/18 07:01 Pulse Ox 96 07/06/18 07:01 Physical Exam: Constitutional: Comfortable NAD on vent HEENT: normocephalic atraumatic. MMM CV: RRR nl s1,s2 no murmurs rubs or gallops Lungs: clear to auscultation bilaterally. no accessory muscle use Abd: soft nontender nondistended. normal bowel sounds Ext: no edema. no cyanosis, no clubbing Skin: warm dry Neuro: unresponsive. appropriate response to pain. minimal response to voice Psych:
[2018-07-06] MEDS ORDERED: INSULIN GLARGINE SOLOSTAR 100 UNITS/ML 3 ML PEN SC ONE (09:00)
[2018-07-06] MEDS: TUBE FEEDING WATER FLUSH NG SCH ×4 (10:58→22:36)
--- NOTE | 2018-07-06 11:00 | Pharmacy Report ---
Pharmacy Glycemic Short Note 2 - Date of Service July 06, 2018 - Glycemic Short BSG Results (Last 24 hours): 07/05/18 07/05/18 07/05/18 11:53 15:37 20:16 Glucose POC Glucose 175 H 253 H 252 H 07/05/18 07/05/18 07/06/18 21:41 23:37 00:41 Glucose POC Glucose 240 H 202 H 188 H 07/06/18 07/06/18 07/06/18 01:32 02:35 03:28 Glucose POC Glucose 164 H 163 H 162 H 07/06/18 07/06/18 07/06/18 04:16 05:39 06:35 Glucose 134 H POC Glucose 137 H 146 H 07/06/18 07/06/18 07/06/18 07:33 08:41 09:40 Glucose POC Glucose 133 H 139 H 148 H 07/06/18 10:48 Glucose POC Glucose 142 H OUTPATIENT ANTIDIABETIC REGIMEN: * N/A * HbA1c: 8.1% (04/26/18) ASSESSMENT: * Stressors * Patient continues on vent * Tubefeeds (Peptamen VHP / low CHO) @ goal 65 mL/hr. Held overnight 2nd high residuals. Plan to resume @ ~1100 per discussion w RN (Nancy) * BSG's significantly increased last night - 253 and 252 mg/dL. Insulin drip was started. Unclear etiology of increased BSG as stressors are mostly stable and regimen was adjusted slightly yesterday to provide more insulin * Per discussion at ICU rounds - keep patient on insulin drip for now. OK to continue Lantus, but not at aggressive doses / attempt to transition. If the insulin drip titrates down to very low amounts (likely less than 1 unit/hr) may consider adjustment of regimen at that time. Drip is currently running at 2.7 units/hr PLAN FOR INPATIENT GLYCEMIC CONTROL: * Basal insulin - Lantus 8 units SQ this morning * Continue insulin drip, severe stress protocol, and adjust goal range to 120- 180 mg/dL * Novolog q4h per insulin drip calculator generated CHO ratio to cover CHO in tubefeeds
[2018-07-06] MEDS: PANTOprazole 40 MG in SYRINGE 0 ML IV SCH (11:04)
--- NOTE | 2018-07-06 11:10 | Nephrology Progress Note ---
Date of Service July 06, 2018 Assessment & Plan (1) Acute kidney injury: -- Clinical presentation c/w ATN due to sepsis, iodinated contrast administration (CTA), and JEANETTE inhibitor use -- Kidney function is stable at this time. Volume status is acceptable. Patient remains nonoliguric -- SNa 147. staff genetic counselor reports that ICU team will provide 100 cc free water via OGT q4. Will monitor -- Urine microscopy today shows clearing of hematuria. Urinalysis shows less proteinuria -- Cannot completely exclude acute GN but presentation would be unusual. Awaiting results of ANCA and anti-GBM antibody testing (pending as of 07/05/18 am) -- Held home medications: JEANETTE and Aldactone. (2) CKD (chronic kidney disease), stage III: -- Baseline creatinine ~1.3 mg/dL. -- Baseline A4 proteinuria, 2.8 g/g random sample in November. -- CKD can be attributed to diabetic nephropathy and or possible FSGS. (3) Multifocal pneumonia: -- Remains ventilator dependent. -- Oxygenation improving. (4) Proteinuria: -- Not significantly edematous. -- 24 hour urine collection reveals ~ 1 g protein (5) S/P admission to ICU (intensive care unit): -- 40 minutes of critical care time spent with patient today. Plan of care discussed w/ ICU staff. Subjective Mrs. Reyna was seen & examined in the ICU this morning. Her was present at bedside. She becomes agitated and hypertensive when woken up. She is again sedated. FiO2 has been weaned to 30% FiO2. CLINICAL PSYCHOLOGIST LICENSEDstaff genetic counselor reports that they will attempt weaning trials today. The patient remains nonoliguric Physical Exam Vital Signs (Past 24 Hours): Last Vital Signs Temp 36.7 C 07/06/18 07:01 Pulse 71 07/06/18 09:31 Resp 24 07/06/18 07:36 BP 162/64 H 07/06/18 09:31 Pulse Ox 86 L 07/06/18 09:31 Eyes: PERRL, conjunctivae normal, anicteric sclerae Neck: trachea midline, no thyromegaly Cardiovascular: RRR, no murmur, no edema Gastrointestinal (Abdomen): normal bowel sounds, soft, nontender, no hepatosplenomegaly Results & Data Laboratory Results Laboratory Tests 07/06/18 07/06/18 04:16 04:16 WBC 7.26 Hgb 8.2 L Hct 25.3 L Plt Count 198 Sodium 147 H Potassium 3.6 Chloride 114 H Carbon Dioxide 28 BUN 88 H Creatinine 3.47 H D Laboratory Tests 07/05/18 10:48 Urine Color Yellow Urine Appearance Clear Urine pH 5.0 Ur Specific [place] 1.012 Urine Protein Negative Urine Glucose (UA) Negative Urine Blood Trace H Urine WBC (Auto) 1-5 Urine RBC (Auto) 5-10 H U Hyaline Cast (Auto) 1-5 Urine Bacteria (Auto) Negative Laboratory Tests 07/03/18 10:37 Anti-Proteinase 3 Pending Anti-Myeloperoxidase Pending ANCA Pending Glomerular Base Memb Ab Pending (1) Proteinuria Proteinuria type: other Qualified Code(s): R80.8 - Other proteinuria
[2018-07-06] MEDS: PEPTAMEN INTENSE VHP 1.0 CAL 1,000 ML BAG OG SCH (13:00)
--- NOTE | 2018-07-06 20:40 | Hospitalist Progress Note ---
Date of Service July 06, 2018 Assessment & Plan (1) Lethargy: CT head negative last evening for acute process. Ammonia level normal. Patient minimally more awake today but not following commands. PRES? Hypertensive encephalopathy? Stroke that was not seen on CT head? other? Strongly consider MRI brain. Agree with Rx of HTN with IV medication infusion. Serial exams. Minimize any narcotics or other [employer]LECT[employer]LECT[employer] altering medication. Present on Admission?: No (2) Hypertension: Agree with nicardipine infusion for refractory HTN. She remains on large dose of coreg along with amlodipine and hydralazine. See discussion above in "lethargy." Present on Admission?: Yes (3) Acute respiratory failure with hypoxia: Initially thought 2nd to b/l community-acquired pneumonia. Patient worsened after admission and transitioned to BiPAP on 07/01. Intubated later on 07/01 after failing BIPAP. Underwent bronch by Dr. Carcamo in the ICU - cultures from bronch negative. Has remained vented since 07/01. There has been some concern of ARDS in the setting of her sepsis and pneumonia; if present this has improved. Defer vent management to critical care team. Changed to PSV mode this am and tolerating. (4) Multifocal pneumonia: bilateral. see discussion above in acute hypoxic respiratory failure. would be in favor of resuming antibiotics to complete a full course of such. blood cultures and bronch cultures negative. afebrile. vent parameters improved. (5) Acute kidney injury: Likely sepsis-associated ATN. JEANETTE inhibitor use and IV contrast may have contributed as well. Nephrology following; recs appreciated. Holding JEANETTE, Thiazide diuretic and Aldactone. Daily BMP. Creatinine appears to have plateaued. She remains nonoliguric. No indication for acute HD at this time. (6) Severe sepsis: with ATN, respiratory failure, etc. source- pulmonary. continue supportive care. overall sepsis picture improved. (7) Non-ischemic cardiomyopathy: history of such - now resolved. (8) CHF (congestive heart failure): History of systolic CHF. Now resolved. CVPs are normal. No evidence of decompensated CHF although she has positive fluid balance. prn lasix to maintain even or net negative fluid balance. (9) Elevated troponin: Likely due to myocardial demand ischemia. (10) Diabetes: cont insulin infusion. appreciate pharmacy for glycemic management. overall control improved. (11) Hyperlipidemia: statin (12) CKD (chronic kidney disease), stage III: baseline Cr about 1.3. now with ATN. (13) Proteinuria: 24 hour urine protein with 1 gram. Proteinuria likely contributing to hypoalbuminemia. Appreciate nephrology assistance. ANCA, anti-GBM pending. (14) History of CVA (cerebrovascular accident): History of left basal ganglia CVA in September 2016. Cont plavix, statin, etc. CT head overnight negative. Strongly consider MRI brain. (15) Anemia: Fecal occult, iron studies, b12, folate -- all negative/normal. CBC acceptable today. Tx if hemoglobin approaches 7. (16) Thrombocytopenia: Likely due to severe sepsis. resolved. (17) Morbid obesity with BMI of 40.0-44.9, adult: BMI 40 (18) Hypoalbuminemia: severe. continue enteral nutrition. (19) DVT prophylaxis: Heparin 5,000 units q8hr. updated at bedside once again. Subjective patient's mental status still quite poor she is not following commands even when her gives her commands moving arms but not moving legs eyes open but seems sporadic started on nicardipine drip with improved BPs this am CT head last pm noted to be normal Review of Systems Unobtainable due to endotracheal tube and Unobtainable due to reduced consciousness Physical Exam Vital Signs (Past 24 Hours): Last Vital Signs Temp 37.3 C 07/06/18 20:00 Pulse 75 07/06/18 19:34 Resp 21 07/06/18 19:34 BP 149/77 H 07/06/18 18:00 Pulse Ox 94 07/06/18 19:34 Constitutional: + morbidly obese; no acute distress Eyes: PERRL, conjunctivae normal, anicteric sclerae Respiratory: normal respiratory effort; no respiratory distress Auscultation: + crackles (minimal anteriorly on right); no wheezes Cardiovascular: Rate/Rhythm: regular rate and regular rhythm Heart Sounds: normal S1 and normal S2; no murmur Vessels: posterior tibial pulses present and dorsalis pedis pulses present; no JVD Extremities: no pedal edema Gastrointestinal (Abdomen): normal bowel sounds, soft, nontender, no hepatosplenomegaly Neurologic: moves arms b/l (occasional flexing of the arms) but not moving the legs during my exam; DTRs 1+ b/l; negative babinski on right, positive on left Psychiatric: Orientation: + not alert and + not oriented x 3 Results & Data Laboratory Results Laboratory Results - last 24 hr 07/05/18 07/05/18 07/06/18 21:41 23:37 00:41 WBC RBC Hgb Hct MCV MCH MCHC RDW Std Deviation RDW Coeff of Braeden Plt Count MPV Immature Gran % (Auto) Neut % (Auto) Lymph % (Auto) [place] % (Auto) Eos % (Auto) Baso % (Auto) Immature Gran # (Auto) Neut # (Auto) Lymph # (Auto) [place] # (Auto) Eos # (Auto) Baso # (Auto) RBC Morphology Sodium Potassium Chloride Carbon Dioxide Anion Gap BUN Creatinine Est Cr Clr Drug Dosing Est GFR ( Amer) Est GFR (Non-Af Amer) BUN/Creatinine Ratio Glucose POC Glucose 240 H 202 H 188 H Calcium Magnesium Ammonia 07/06/18 07/06/18 07/06/18 01:32 02:35 03:28 WBC RBC Hgb Hct MCV MCH MCHC RDW Std Deviation RDW Coeff of Bra[place] Plt Count MPV Immature Gran % (Auto) Neut % (Auto) Lymph % (Auto) [place] % (Auto) Eos % (Auto) Baso % (Auto) Immature Gran # (Auto) Neut # (Auto) Lymph # (Auto) [place] # (Auto) Eos # (Auto) Baso # (Auto) RBC Morphology Sodium Potassium Chloride Carbon Dioxide Anion Gap BUN Creatinine Est Cr Clr Drug Dosing Est GFR ( Amer) Est GFR (Non-Af Amer) BUN/Creatinine Ratio Glucose POC Glucose 164 H 163 H 162 H Calcium Magnesium Ammonia 07/06/18 07/06/18 07/06/18 04:16 04:16 04:16 WBC 7.26 RBC 3.02 L Hgb 8.2 L Hct 25.3 L MCV 83.8 MCH 27.2 MCHC 32.4 RDW Std Deviation 47.0 H RDW Coeff of Braeden 15.3 H Plt Count 198 MPV 10.1 Immature Gran % (Auto) 1.5 Neut % (Auto) 58.2 Lymph % (Auto) 22.5 [place] % (Auto) 11.0 Eos % (Auto) 6.5 Baso % (Auto) 0.3 Immature Gran # (Auto) 0.11 H Neut # (Auto) 4.23 Lymph # (Auto) 1.63 [place] # (Auto) 0.80 H Eos # (Auto) 0.47 Baso # (Auto) 0.02 RBC Morphology Unremarkable Sodium 147 H Potassium 3.6 Chloride 114 H Carbon Dioxide 28 Anion Gap 5.0 BUN 88 H Creatinine 3.47 H D Est Cr Clr Drug Dosing 22.1 Est GFR ( Amer) 15.5 Est GFR (Non-Af Amer) 13.4 BUN/Creatinine Ratio 25.4 H Glucose 134 H POC Glucose Calcium 9.5 Magnesium 2.3 Ammonia 19.0 07/06/18 07/06/18 07/06/18 05:39 06:35 07:33 WBC RBC Hgb Hct MCV MCH MCHC RDW Std Deviation RDW Coeff of Braed[place] Plt Count MPV Immature Gran % (Auto) Neut % (Auto) Lymph % (Auto) [place] % (Auto) Eos % (Auto) Baso % (Auto) Immature Gran # (Auto) Neut # (Auto) Lymph # (Auto) [place] # (Auto) Eos # (Auto) Baso # (Auto) RBC Morphology Sodium Potassium Chloride Carbon Dioxide Anion Gap BUN Creatinine Est Cr Clr Drug Dosing Est GFR ( Amer) Est GFR (Non-Af Amer) BUN/Creatinine Ratio Glucose POC Glucose 137 H 146 H 133 H Calcium Magnesium Ammonia 07/06/18 07/06/18 07/06/18 08:41 09:40 10:48 WBC RBC Hgb Hct MCV MCH MCHC RDW Std Deviation RDW Coeff of Braeden Plt Count MPV Immature Gran % (Auto) Neut % (Auto) Lymph % (Auto) [place] % (Auto) Eos % (Auto) Baso % (Auto) Immature Gran # (Auto) Neut # (Auto) Lymph # (Auto) [place] # (Auto) Eos # (Auto) Baso # (Auto) RBC Morphology Sodium Potassium Chloride Carbon Dioxide Anion Gap BUN Creatinine Est Cr Clr Drug Dosing Est GFR ( Amer) Est GFR (Non-Af Amer) BUN/Creatinine Ratio Glucose POC Glucose 139 H 148 H 142 H Calcium Magnesium Ammonia 07/06/18 07/06/18 07/06/18 12:51 14:45 16:26 WBC RBC Hgb Hct MCV MCH MCHC RDW Std Deviation RDW Coeff of Braeden Plt Count MPV Immature Gran % (Auto) Neut % (Auto) Lymph % (Auto) [place] % (Auto) Eos % (Auto) Baso % (Auto) Immature Gran # (Auto) Neut # (Auto) Lymph # (Auto) [place] # (Auto) Eos # (Auto) Baso # (Auto) RBC Morphology Sodium Potassium Chloride Carbon Dioxide Anion Gap BUN Creatinine Est Cr Clr Drug Dosing Est GFR ( Amer) Est GFR (Non-Af Amer) BUN/Creatinine Ratio Glucose POC Glucose 141 H 155 H 154 H Calcium Magnesium Ammonia 07/06/18 18:29 WBC RBC Hgb Hct MCV MCH MCHC RDW Std Deviation RDW Coeff of Braeden Plt Count MPV Immature Gran % (Auto) Neut % (Auto) Lymph % (Auto) [place] % (Auto) Eos % (Auto) Baso % (Auto) Immature Gran # (Auto) Neut # (Auto) Lymph # (Auto) [place] # (Auto) Eos # (Auto) Baso # (Auto) RBC Morphology Sodium Potassium Chloride Carbon Dioxide Anion Gap BUN Creatinine Est Cr Clr Drug Dosing Est GFR ( Amer) Est GFR (Non-Af Amer) BUN/Creatinine Ratio Glucose POC Glucose 151 H Calcium Magnesium Ammonia (1) Diabetes Diabetes mellitus complication status: without complication Diabetes mellitus retirement insulin use: with retirement use Diabetes mellitus type: type 2 Qualified Code(s): E11.9 - Type 2 diabetes mellitus without complications; Z79.4 - terminal 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
[2018-07-07] MEDS: INSULIN ASPART 100 UNITS/ML 3 ML PEN SC SCH ×7 (01:00→23:47)
[2018-07-07] MEDS: TUBE FEEDING WATER FLUSH NG SCH ×2 (01:23→05:16)
[2018-07-07 04:22] LABS: Hematocrit (blood only) 25.5 % (37-47); Hemoglobin 8.2 g/dL (12.0-16.0); Mean Corpuscular Hgb Conc 32.2 g/dL (32-36); Mean Corpuscular Volume 84.2 fL (80-100); Mean Platelet Volume 9.7 fL (7.4-10.4); Platelet Count 228 K/uL (130-400); RDW Coefficient of Variation 15.1 % (11.5-14.5); RDW Standard Deviation 46.4 fL (36.4-46.3); Red Blood Count 3.03 M/uL (4.2-5.4); White Blood Count 7.19 K/uL (4.8-10.8)
[2018-07-07 04:42] LABS: BUN Creatinine Ratio 29.6 (10-20); Calcium 9.3 mg/dl (8.5-10.1); Creatinine Clr Calc Pharmacy 24.4 ml/min; Est GFR (African American) 17.9; Est GFR (Non-African American) 15.5; Potassium 3.5 mmol/L (3.5-5.1)
[2018-07-07] MEDS: HEPARIN SOD 5,000 UNIT/0.5 ML VIAL SQ SCH ×3 (05:17→20:46)
[2018-07-07] MEDS: ALBUT/IPRATROP 3MG/0.5MG NEB 3 ML VIAL NEB SCH ×4 (08:00→19:37)
--- NOTE | 2018-07-07 08:00 | Critical Care Progress Note ---
Date of Service July 07, 2018 Assessment & Plan (1) Acute respiratory failure with hypoxia: Neuro- toxic/metabolic encaphalopathy mental status improving. continue monitor off sedation. CT head without cause. ?PRES CV- HD stable. hypertension on carvediol. amlodipine, increase hydralazine. nicardipine will lower goals. holding lisinopril with renal failure. atorvastatin, clopidogrel Pulmonary- acute hypoxic respiratory failure due to ARDS and pneumonia. improved oxygenation. SBT today ID- cultures negative so far abx stopped 07/03 possible viral infection. monitor off abx Renal- acute renal failure likely ATN Cr improved. good UOP. hypernatremia increase free water GI- continue tube feeds Heme- anemia. heparin proph Endocrine- blood sugars controlled on insulin drip Dispo- continue ICU care for ventilatory support DNR I have personally spent 45 minutes of critical care time in the direct management of this patient. This is a life/limb threatening event. This includes time spent evaluating patient, direct bedside care, chart review, placing orders, interpretation of diagnostic studies, discussion with consultants, patient, and/or family members regarding treatment decisions, as well as other required patient management activities. This time is exclusive of all separately billable procedures, and teaching time and separate from and in addition to any other critical care service time. Subjective remains on vent more awake this morning following commands Physical Exam Vital Signs (Past 24 Hours): Last Vital Signs Temp 37.0 C 07/07/18 04:00 Pulse 70 07/07/18 05:00 Resp 22 07/07/18 05:00 BP 146/65 H 07/07/18 01:00 Pulse Ox 95 07/07/18 05:00 Physical Exam: Constitutional: Comfortable NAD on vent HEENT: normocephalic atraumatic. MMM CV: RRR nl s1,s2 no murmurs rubs or gallops Lungs: clear to auscultation bilaterally. no accessory muscle use Abd: soft nontender nondistended. normal bowel sounds Ext: no edema. no cyanosis, no clubbing Skin: warm dry Neuro: following commands. Psych:
[2018-07-07] MEDS ORDERED: DEXTROSE 5% 1,000 ML IV SCH (08:15)
[2018-07-07] MEDS: ATORVASTATIN 40 MG TAB PO SCH (08:34)
[2018-07-07] MEDS: CARVEDILOL 25 MG TAB PO SCH ×2 (08:34→20:14)
[2018-07-07] MEDS: AMLODIPINE BESYLATE 5 MG TAB PO SCH (08:34)
[2018-07-07] MEDS: CLOPIDOGREL BISULFATE 75 MG TAB PO SCH (08:34)
[2018-07-07] MEDS: HydrALAZINE TAB 50 MG TAB PO SCH ×3 (08:44→20:14)
--- NOTE | 2018-07-07 09:07 | Nephrology Progress Note ---
Date of Service July 07, 2018 Assessment & Plan (1) Acute kidney injury: -- Clinical presentation c/w ATN due to sepsis, iodinated contrast administration (CTA), and JEANETTE inhibitor use -- Patient is in recovery phase. Creatinine is trending down. Volume status is acceptable. Patient remains nonoliguric -- SNa 148. medical staff services coordinator reports that tube feeding has been held for extubation. 1 L D5W being administered this am -- Cannot completely exclude acute GN but presentation would be unusual. Awaiting results of ANCA and anti-GBM antibody testing (pending as of 07/07/18 am) -- Held home medications: JEANETTE and Aldactone. (2) CKD (chronic kidney disease), stage III: -- Baseline creatinine ~1.3 mg/dL. -- Baseline A4 proteinuria, 2.8 g/g random sample in November. -- CKD can be attributed to diabetic nephropathy and or possible FSGS. (3) Multifocal pneumonia: -- Remains ventilator dependent. -- Oxygenation improving. (4) Proteinuria: -- Not significantly edematous. -- 24 hour urine collection reveals ~ 1 g protein (5) S/P admission to ICU (intensive care unit): -- 40 minutes of critical care time spent with patient today. Plan of care discussed w/ ICU staff. Subjective Mrs. Reyna was seen & examined in the ICU this morning. She is awake and alert. She follows simple commands. FiO2 has been weaned to 30% FiO2. LAY OUT HELPERmedical staff services coordinator reports that they will attempt weaning trials today. The patient remains nonoliguric Physical Exam Vital Signs (Past 24 Hours): Last Vital Signs Temp 37.0 C 07/07/18 04:00 Pulse 76 07/07/18 08:01 Resp 23 07/07/18 08:01 BP 146/65 H 07/07/18 01:00 Pulse Ox 94 07/07/18 08:01 Eyes: PERRL, conjunctivae normal, anicteric sclerae Neck: trachea midline, no thyromegaly Cardiovascular: RRR, no murmur, no edema Gastrointestinal (Abdomen): normal bowel sounds, soft, nontender, no hepatosplenomegaly Results & Data Laboratory Results Laboratory Tests 07/07/18 07/07/18 04:13 04:13 WBC 7.19 Hgb 8.2 L Hct 25.5 L Plt Count 228 Sodium 148 H Potassium 3.5 Chloride 116 H Carbon Dioxide 25 BUN 91 H Creatinine 3.08 H D Laboratory Tests 07/03/18 10:37 Anti-Proteinase 3 Pending Anti-Myeloperoxidase Pending ANCA Pending Glomerular Base Memb Ab Pending (1) Proteinuria Proteinuria type: other Qualified Code(s): R80.8 - Other proteinuria
[2018-07-07] MEDS: INSULIN REGULAR 250 UNITS in SODIUM CHLORIDE 0.9% 247.5 ML IV SCH ×2 (09:48→13:11)
[2018-07-07] MEDS: PANTOprazole 40 MG in SYRINGE 0 ML IV SCH (10:14)
--- NOTE | 2018-07-07 10:14 | Pharmacy Report ---
Pharmacy Glycemic Short Note 2 - Date of Service July 07, 2018 - Glycemic Short BSG Results (Last 24 hours): 07/06/18 07/06/18 07/06/18 10:48 12:51 14:45 Glucose POC Glucose 142 H 141 H 155 H POC Glucose (other) 07/06/18 07/06/18 07/06/18 16:26 18:29 20:29 Glucose POC Glucose 154 H 151 H POC Glucose (other) 142 H 07/06/18 07/07/18 07/07/18 22:37 00:54 04:13 Glucose 139 H POC Glucose POC Glucose (other) 134 H 140 H 07/07/18 07/07/18 05:18 09:42 Glucose POC Glucose 160 H POC Glucose (other) 140 H OUTPATIENT ANTIDIABETIC REGIMEN: * N/A * HbA1c: 8.1% (04/26/18) ASSESSMENT: * Stressors * Patient continues on vent, but plan for extubation today * D5 100 mL/hr x 1L started at 0830 today for hypernatremia * Tubefeeds (Peptamen VHP / low CHO) resumed yesterday @ 20 mL/hr and titrated up. Held this AM for possible extubation. * Per discussion at ICU rounds - keep patient on insulin drip for now 2nd significant changes above. Drip is currently running at a very stable rate of 2.7 units/hr with BSG's in goal range. PLAN FOR INPATIENT GLYCEMIC CONTROL: * Continue insulin drip, severe stress protocol, goal range to 120-180 mg/dL * Add BSG check at [id number] as protocol notes to maintain rate for 4 hours but would prefer to check sooner based on changes above. RN (Nancy) aw are. * Novolog q4h per insulin drip calculator generated CHO ratio to cover CHO in tubefeeds (if resumed)
[2018-07-07 16:44] LABS: iSTAT Arterial Blood Gas HCO3 25 meg/L (19-24); iSTAT Arterial Blood Gas pCO2 51 mmHg (35-46); iSTAT Arterial Blood Gas pH 7.29 (7.35-7.45); iSTAT Carbon Dioxide 26 mEq/l (24-31); iSTAT Sample Type Arterial
[2018-07-07 16:45] LABS: iSTAT SpO2 92
--- NOTE | 2018-07-07 18:14 | Hospitalist Progress Note ---
Date of Service July 07, 2018 Assessment & Plan (1) Lethargy: CT head negative on 07/05 for acute process. Ammonia level normal. More awake today, off vent, and following commands, answering questions but with hoarse voice BPs better controlled so maybe was hypertensive encephalopathy -no need for brain MRI at this point as is much improved Minimize any narcotics or other CONTRACTS SPECIALIST altering medication. (2) Hypertension: Better controlled today on nicardipine infusion for refractory HTN. She remains on large dose of coreg 50mg bid, along with amlodipine 10mg daily, and hydralazine 50mg po q8h (3) Acute respiratory failure with hypoxia: Initially thought 2nd to b/l community-acquired pneumonia. Patient worsened after admission and transitioned to BiPAP on 07/01. Intubated later on 07/01 after failing BIPAP. Underwent bronch by Dr. Carcamo in the ICU - cultures from bronch remain negative. Now extubated on 07/07, on facemask and hypoxia improved There has been some concern of ARDS in the setting of her sepsis and pneumonia; if present this has improved. (4) Multifocal pneumonia: bilateral. see discussion above in acute hypoxic respiratory failure. Pct was negative, cultures from bronch negative Remains off all antibiotics afebrile. Follow CX to resolution (5) Acute kidney injury: Likely sepsis-associated ATN. JEANETTE inhibitor use and IV contrast may have contributed as well. Urine eosinophils negative With large amount of proteinuria on admission, now improved Nephrology following; recs appreciated. Continue holding JEANETTE, Thiazide diuretic and Aldactone. Social Science Instructor improved to 3.08, making urine Daily BMP. (6) Severe sepsis: with ATN, respiratory failure, etc. source- pulmonary. continue supportive care. overall sepsis picture improved. (7) Non-ischemic cardiomyopathy: history of such - now resolved. (8) CHF (congestive heart failure): History of systolic CHF. Now resolved. CVPs are normal. No evidence of decompensated CHF although she has positive fluid balance. (9) Elevated troponin: Likely due to myocardial demand ischemia. (10) Diabetes: cont insulin infusion. appreciate pharmacy for glycemic management. overall control improved. (11) Hyperlipidemia: statin (12) CKD (chronic kidney disease), stage III: baseline Cr about 1.3. now with ATN. (13) Proteinuria: 24 hour urine protein with 1 gram. Spot protein to creatinine ratio on admission was 11.1 but is now improved down to 1.9 Proteinuria likely contributing to hypoalbuminemia. Not likely acute presentation of glomerulonephritis Appreciate nephrology assistance. ANCA, anti-GBM pending. (14) History of CVA (cerebrovascular accident): History of left basal ganglia CVA in September 2016. Cont plavix, statin, etc. CT head on 07/05 negative. (15) Anemia: Fecal occult, iron studies, b12, folate -- all negative/normal. Likely anemia secondary to inflammation and blood draws Hemoglobin stable today at 8.2 Tx if hemoglobin approaches 7. (16) Thrombocytopenia: Now resolved and was likely due to severe sepsis (17) Morbid obesity with BMI of 40.0-44.9, adult: BMI 38.5 (18) Hypoalbuminemia: severe. Secondary to proteinuria and poor nutrition Was receiving enteral nutrition and now discontinued as she has been extubated Having difficulty with swallowing due to intubation times 1 week -Advance diet as tolerated (19) DVT prophylaxis: Heparin 5,000 units q8hr. Disposition-remain in ICU overnight and if doing well, can be downgraded to telemetry tomorrow I discussed the case with the newspaper delivery driver Physical Exam Vital Signs (Past 24 Hours): Last Vital Signs Temp 36.6 C 07/07/18 16:00 Pulse 72 07/07/18 17:00 Resp 22 07/07/18 17:00 BP 144/86 H 07/07/18 17:00 Pulse Ox 92 07/07/18 17:00 Constitutional: well developed and + obese; no acute distress Eyes: PERRL, conjunctivae normal, anicteric sclerae ENMT: Ears: no hearing impairment Nose: no facial exam abnormality Neck: trachea midline, no thyromegaly Respiratory: normal respiratory effort Auscultation: + rhonchi (on right side) and + wheezes (a few scattered exp wheezes) Cardiovascular: RRR, no murmur, no edema Gastrointestinal (Abdomen): normal bowel sounds, soft, nontender, no hepatosplenomegaly Musculoskeletal: Extremities: extremities normal to inspection; no cyanosis and no clubbing Skin: no rashes, warm and dry Neurologic: moves all extremities and awake; no focal motor deficits Psychiatric: Orientation: alert, oriented to person and cooperative Genitourinary: Laws with clear yellow urine Results & Data Laboratory Results 07/07/18 07/07/18 07/07/18 Range/Units 18:03 16:51 15:58 WBC (4.8-10.8) K/uL RBC (4.2-5.4) M/uL Hgb (12.0-16.0) g/dL Hct (37-47) % MCV (80-100) fL MCH (25-34) pg MCHC (32-36) g/dL RDW Std Deviation (36.4-46.3) fL RDW Coeff of Braeden (11.5-14.5) % Plt Count (130-400) K/uL MPV (7.4-10.4) fL Specimen Type Patient Temperature POC pH (7.35-7.45) POC pCO2 (35-46) mmHg POC pO2 (80-95) mmHg POC HCO3 (19-24) taniya/L POC Total CO2 (24-31) mEq/l POC Base Excess (-9-1.8) taniya/L O2 Sat Pulse Oximetry End Tidal CO2 Sodium (136-145) mmol/L Potassium (3.5-5.1) mmol/L Chloride (98-107) mmol/L Carbon Dioxide (21-32) mmol/L Anion Gap (3-11) BUN (7-18) mg/dl Creatinine (0.6-1.2) mg/dl Est Cr Clr Drug Dosing ml/min Est GFR ( Amer) Est GFR (Non-Af Amer) BUN/Creatinine Ratio (10-20) Glucose (70-99) mg/dl POC Glucose 241 H 245 H 252 H (70-99) POC Glucose (other) (70-99) mg/dl Calcium (8.5-10.1) mg/dl 07/07/18 07/07/18 07/07/18 Range/Units 15:04 14:11 13:02 WBC (4.8-10.8) K/uL RBC (4.2-5.4) M/uL Hgb (12.0-16.0) g/dL Hct (37-47) % MCV (80-100) fL MCH (25-34) pg MCHC (32-36) g/dL RDW Std Deviation (36.4-46.3) fL RDW Coeff of Braeden (11.5-14.5) % Plt Count (130-400) K/uL MPV (7.4-10.4) fL Specimen Type Patient Temperature POC pH (7.35-7.45) POC pCO2 (35-46) mmHg POC pO2 (80-95) mmHg POC HCO3 (19-24) taniya/L POC Total CO2 (24-31) mEq/l POC Base Excess (-9-1.8) taniya/L O2 Sat Pulse Oximetry End Tidal CO2 Sodium (136-145) mmol/L Potassium (3.5-5.1) mmol/L Chloride (98-107) mmol/L Carbon Dioxide (21-32) mmol/L Anion Gap (3-11) BUN (7-18) mg/dl Creatinine (0.6-1.2) mg/dl Est Cr Clr Drug Dosing ml/min Est GFR ( Amer) Est GFR (Non-Af Amer) BUN/Creatinine Ratio (10-20) Glucose (70-99) mg/dl POC Glucose 256 H 245 H 234 H (70-99) POC Glucose (other) (70-99) mg/dl Calcium (8.5-10.1) mg/dl 07/07/18 07/07/18 07/07/18 Range/Units 12:12 09:42 05:18 WBC (4.8-10.8) K/uL RBC (4.2-5.4) M/uL Hgb (12.0-16.0) g/dL Hct (37-47) % MCV (80-100) fL MCH (25-34) pg MCHC (32-36) g/dL RDW Std Deviation (36.4-46.3) fL RDW Coeff of Braeden (11.5-14.5) % Plt Count (130-400) K/uL MPV (7.4-10.4) fL Specimen Type Patient Temperature POC pH (7.35-7.45) POC pCO2 (35-46) mmHg POC pO2 (80-95) mmHg POC HCO3 (19-24) taniya/L POC Total CO2 (24-31) mEq/l POC Base Excess (-9-1.8) taniya/L O2 Sat Pulse Oximetry End Tidal CO2 Sodium (136-145) mmol/L Potassium (3.5-5.1) mmol/L Chloride (98-107) mmol/L Carbon Dioxide (21-32) mmol/L Anion Gap (3-11) BUN (7-18) mg/dl Creatinine (0.6-1.2) mg/dl Est Cr Clr Drug Dosing ml/min Est GFR ( Amer) Est GFR (Non-Af Amer) BUN/Creatinine Ratio (10-20) Glucose (70-99) mg/dl POC Glucose 222 H 160 H (70-99) POC Glucose (other) 140 H (70-99) mg/dl Calcium (8.5-10.1) mg/dl 07/07/18 07/07/18 07/07/18 Range/Units 04:13 04:13 00:54 WBC 7.19 (4.8-10.8) K/uL RBC 3.03 L (4.2-5.4) M/uL Hgb 8.2 L (12.0-16.0) g/dL Hct 25.5 L (37-47) % MCV 84.2 (80-100) fL MCH 27.1 (25-34) pg MCHC 32.2 (32-36) g/dL RDW Std Deviation 46.4 H (36.4-46.3) fL RDW Coeff of Braeden 15.1 H (11.5-14.5) % Plt Count 228 (130-400) K/uL MPV 9.7 (7.4-10.4) fL Specimen Type Patient Temperature POC pH (7.35-7.45) POC pCO2 (35-46) mmHg POC pO2 (80-95) mmHg POC HCO3 (19-24) taniya/L POC Total CO2 (24-31) mEq/l POC Base Excess (-9-1.8) taniya/L O2 Sat Pulse Oximetry End Tidal CO2 Sodium 148 H (136-145) mmol/L Potassium 3.5 (3.5-5.1) mmol/L Chloride 116 H (98-107) mmol/L Carbon Dioxide 25 (21-32) mmol/L Anion Gap 7.0 (3-11) BUN 91 H (7-18) mg/dl Creatinine 3.08 H D (0.6-1.2) mg/dl Est Cr Clr Drug Dosing 24.4 ml/min Est GFR ( Amer) 17.9 Est GFR (Non-Af Amer) 15.5 BUN/Creatinine Ratio 29.6 H (10-20) Glucose 139 H (70-99) mg/dl POC Glucose (70-99) POC Glucose (other) 140 H (70-99) mg/dl Calcium 9.3 (8.5-10.1) mg/dl 07/06/18 07/06/18 07/06/18 Range/Units 22:37 20:29 18:29 WBC (4.8-10.8) K/uL RBC (4.2-5.4) M/uL Hgb (12.0-16.0) g/dL Hct (37-47) % MCV (80-100) fL MCH (25-34) pg MCHC (32-36) g/dL RDW Std Deviation (36.4-46.3) fL RDW Coeff of Braeden (11.5-14.5) % Plt Count (130-400) K/uL MPV (7.4-10.4) fL Specimen Type Patient Temperature POC pH (7.35-7.45) POC pCO2 (35-46) mmHg POC pO2 (80-95) mmHg POC HCO3 (19-24) taniya/L POC Total CO2 (24-31) mEq/l POC Base Excess (-9-1.8) taniya/L O2 Sat Pulse Oximetry End Tidal CO2 Sodium (136-145) mmol/L Potassium (3.5-5.1) mmol/L Chloride (98-107) mmol/L Carbon Dioxide (21-32) mmol/L Anion Gap (3-11) BUN (7-18) mg/dl Creatinine (0.6-1.2) mg/dl Est Cr Clr Drug Dosing ml/min Est GFR ( Amer) Est GFR (Non-Af Amer) BUN/Creatinine Ratio (10-20) Glucose (70-99) mg/dl POC Glucose 151 H (70-99) POC Glucose (other) 134 H 142 H (70-99) mg/dl Calcium (8.5-10.1) mg/dl 07/01/18 Range/Units 17:21 WBC (4.8-10.8) K/uL RBC (4.2-5.4) M/uL Hgb (12.0-16.0) g/dL Hct (37-47) % MCV (80-100) fL MCH (25-34) pg MCHC (32-36) g/dL RDW Std Deviation (36.4-46.3) fL RDW Coeff of Braeden (11.5-14.5) % Plt Count (130-400) K/uL MPV (7.4-10.4) fL Specimen Type Arterial Patient Temperature 37.0 POC pH 7.29 L (7.35-7.45) POC pCO2 51 H (35-46) mmHg POC pO2 72 L (80-95) mmHg POC HCO3 25 H (19-24) taniya/L POC Total CO2 26 (24-31) mEq/l POC Base Excess -2.0 (-9-1.8) taniya/L O2 Sat Pulse Oximetry 92 End Tidal CO2 51 Sodium (136-145) mmol/L Potassium (3.5-5.1) mmol/L Chloride (98-107) mmol/L Carbon Dioxide (21-32) mmol/L Anion Gap (3-11) BUN (7-18) mg/dl Creatinine (0.6-1.2) mg/dl Est Cr Clr Drug Dosing ml/min Est GFR ( Amer) Est GFR (Non-Af Amer) BUN/Creatinine Ratio (10-20) Glucose (70-99) mg/dl POC Glucose (70-99) POC Glucose (other) (70-99) mg/dl Calcium (8.5-10.1) mg/dl (1) Hypertension Hypertension type: essential hypertension Qualified Code(s): I10 - Essential (primary) hypertension (2) CHF (congestive heart failure) Heart failure type: systolic Heart failure chronicity: chronic Qualified Code(s): I50.22 - Chronic systolic (congestive) heart failure (3) Diabetes Diabetes mellitus type: type 2 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
[2018-07-08] MEDS: INSULIN ASPART 100 UNITS/ML 3 ML PEN SC SCH ×6 (04:46→23:50)
[2018-07-08 04:50] LABS: Hematocrit (blood only) 26.2 % (37-47); Hemoglobin 8.5 g/dL (12.0-16.0); Mean Corpuscular Hgb Conc 32.4 g/dL (32-36); Mean Corpuscular Volume 84.5 fL (80-100); Mean Platelet Volume 10.3 fL (7.4-10.4); Platelet Count 303 K/uL (130-400); RDW Standard Deviation 46.5 fL (36.4-46.3); White Blood Count 9.63 K/uL (4.8-10.8)
[2018-07-08 05:16] LABS: BUN Creatinine Ratio 32.5 (10-20); Calcium 9.5 mg/dl (8.5-10.1); Creatinine Clr Calc Pharmacy 27.6 ml/min; Est GFR (African American) 20.9; Magnesium 2.4 mg/dl (1.8-2.4); Phosphorus 3.7 mg/dl (2.5-4.9); Potassium 3.5 mmol/L (3.5-5.1)
[2018-07-08] MEDS: HEPARIN SOD 5,000 UNIT/0.5 ML VIAL SQ SCH ×3 (06:08→21:26)
[2018-07-08] MEDS: HydrALAZINE TAB 50 MG TAB PO SCH ×3 (06:08→21:22)
[2018-07-08] MEDS: ALBUT/IPRATROP 3MG/0.5MG NEB 3 ML VIAL NEB SCH ×4 (07:29→19:43)
[2018-07-08] MEDS: DEXTROSE 5% 500 ML IV SCH ×2 (08:50→13:07)
--- NOTE | 2018-07-08 08:53 | Critical Care Progress Note ---
Date of Service July 08, 2018 Assessment & Plan (1) Acute respiratory failure with hypoxia: Neuro- toxic/metabolic encaphalopathy mental status improved. CV- HD stable. hypertension on carvediol. amlodipine, increase hydralazine. nicardipine goal 140-160. holding lisinopril with renal failure. atorvastatin, clopidogrel Pulmonary- acute hypoxic respiratory failure due to ARDS and pneumonia. improved oxygenation. extubated yesterday doing well on NC ID- cultures negative so far abx stopped 07/03 possible viral infection. monitor off abx Renal- acute renal failure likely ATN Cr improving. good UOP. hypernatremia continue free water GI- swallow eval Heme- anemia. heparin proph Endocrine- blood sugars controlled on insulin drip. will transition to SQ Dispo- ok to transfer out of ICU DNR Subjective extubated yesterday failed swallow screen yesterday no complaints this morning Physical Exam Vital Signs (Past 24 Hours): Last Vital Signs Temp 36.5 C 07/08/18 04:00 Pulse 81 07/08/18 08:15 Resp 18 07/08/18 08:15 BP 131/71 07/08/18 04:00 Pulse Ox 96 07/08/18 08:15 Physical Exam: Constitutional: Comfortable NAD on NC HEENT: normocephalic atraumatic. MMM. CV: RRR nl s1,s2 no murmurs rubs or gallops Lungs: clear to auscultation bilaterally though slightly decreased. no accessory muscle use Abd: soft nontender nondistended. normal bowel sounds Ext: no edema. no cyanosis, no clubbing Skin: warm dry Neuro: alert and awake. moving all extremities Psych: normal mood and affect
[2018-07-08] MEDS ORDERED: INSULIN GLARGINE SOLOSTAR 100 UNITS/ML 3 ML PEN SC ONE ×2 (09:00→12:00)
[2018-07-08] MEDS: POTASSIUM CHLORIDE / WTR 10 MEQ/100 ML PLCT IV SCH ×4 (09:23→12:38)
--- NOTE | 2018-07-08 10:16 | Nephrology Progress Note ---
Date of Service July 08, 2018 Assessment & Plan (1) Acute kidney injury: -- Clinical presentation c/w ATN due to sepsis, iodinated contrast administration (CTA), and JEANETTE inhibitor use -- Patient remains in recovery phase. Creatinine is trending down. Volume status is acceptable. Patient remains nonoliguric -- SNa 148. 1 L D5W being administered this am. If patient is negative on swallowing study she will be allowed to drink free water -- Awaiting results of ANCA and anti-GBM antibody testing (pending as of 07/08/18 am) -- Home medications being held: JEANETTE and Aldactone. (2) CKD (chronic kidney disease), stage III: -- Baseline creatinine ~1.3 mg/dL. -- Baseline A4 proteinuria, 2.8 g/g random sample in November. -- CKD can be attributed to diabetic nephropathy and or possible FSGS. (3) Multifocal pneumonia: -- Clinically improving (4) Proteinuria: -- Not significantly edematous. -- 24 hour urine collection reveals ~ 1 g protein (5) S/P admission to ICU (intensive care unit): -- 40 minutes of critical care time spent with patient today. Plan of care discussed w/ ICU staff. Subjective Mrs. Reyna was seen & examined in the ICU this morning. She has been extubated. She is awake, alert and breathing comfortably on RA. Mrs. Reyna is awaiting a swallowing study this am Physical Exam Vital Signs (Past 24 Hours): Last Vital Signs Temp 36.5 C 07/08/18 04:00 Pulse 81 07/08/18 08:15 Resp 18 07/08/18 08:15 BP 131/71 07/08/18 04:00 Pulse Ox 96 07/08/18 08:15 Eyes: PERRL, conjunctivae normal, anicteric sclerae Neck: trachea midline, no thyromegaly Cardiovascular: RRR, no murmur, no edema Gastrointestinal (Abdomen): normal bowel sounds, soft, nontender, no hepatosplenomegaly Neurologic: moves all extremities and awake; not confused Results & Data Laboratory Results Laboratory Tests 07/03/18 07/08/18 07/08/18 10:37 04:21 04:21 WBC 9.63 Hgb 8.5 L Hct 26.2 L Plt Count 303 Sodium 148 H Potassium 3.5 Chloride 117 H Carbon Dioxide 24 BUN 88 H Creatinine 2.72 H D Anti-Proteinase 3 Pending Anti-Myeloperoxidase Pending ANCA Pending Glomerular Base Memb Ab Pending (1) Proteinuria Proteinuria type: other Qualified Code(s): R80.8 - Other proteinuria
--- NOTE | 2018-07-08 11:26 | Pharmacy Report ---
Pharmacy Glycemic Short Note 2 - Date of Service July 08, 2018 - Glycemic Short BSG Results (Last 24 hours): 07/07/18 07/07/18 07/07/18 12:12 13:02 14:11 Glucose POC Glucose 222 H 234 H 245 H POC Glucose (other) 07/07/18 07/07/18 07/07/18 15:04 15:58 16:51 Glucose POC Glucose 256 H 252 H 245 H POC Glucose (other) 07/07/18 07/07/18 07/07/18 18:03 18:56 19:56 Glucose POC Glucose 241 H 209 H 187 H POC Glucose (other) 07/07/18 07/07/18 07/07/18 21:12 22:13 23:32 Glucose POC Glucose 161 H 143 H POC Glucose (other) 113 H 07/08/18 07/08/18 07/08/18 00:52 01:30 01:53 Glucose POC Glucose POC Glucose (other) 97 92 97 07/08/18 07/08/18 07/08/18 02:24 03:10 04:19 Glucose POC Glucose POC Glucose (other) 114 H 126 H 126 H 07/08/18 07/08/18 07/08/18 04:21 05:12 06:10 Glucose 123 H POC Glucose POC Glucose (other) 126 H 127 H 07/08/18 08:38 Glucose POC Glucose 137 H POC Glucose (other) OUTPATIENT ANTIDIABETIC REGIMEN: * N/A * HbA1c: 8.1% (04/26/18) ASSESSMENT: 07/08 * Patient was extubated yesterday, tube feedings were stopped when extubated * Patient will be receiving additional free water today (D5W 1 L) due to ongoing hypernatremia * She will also remain NPO until she passes a swallow eval * Insulin drip was running at 2.1units/hr overnight, however patient's family requested she not have Q1H BSG checks and drip held * BSG this AM in the 130's, will resume basal/bolus SQ regimen at this time given lessening stressors. * Doses will be based upon weight and mod-severe stress level PLAN FOR INPATIENT GLYCEMIC CONTROL: * Lantus 15 units SQ x 1 STAT, then BID per the following scale: * 0 units if less than 100 * 5 units if 100-140 * 10 units if 141-180 * 15 units if greater than 180 * Novolog SQ Q 4 hrs initially since this is 1st day off the insulin drip * Changing correction factor to 20 mg/dl/unit * Changing carb ratio to 1 unit per 8 grams CHO consumed * Changing goal range to Low 110 mg/dL - High 140 mg/dL
[2018-07-08] MEDS: CARVEDILOL 25 MG TAB PO SCH ×3 (11:30→21:23)
[2018-07-08] MEDS: ATORVASTATIN 40 MG TAB PO SCH ×2 (11:31→13:23)
[2018-07-08] MEDS: CLOPIDOGREL BISULFATE 75 MG TAB PO SCH ×2 (11:31→13:23)
[2018-07-08] MEDS: AMLODIPINE BESYLATE 5 MG TAB PO SCH ×2 (11:31→13:23)
[2018-07-08] MEDS ORDERED: PEPTAMEN INTENSE VHP 1.0 CAL 1,000 ML BAG GT PRN (11:34)
[2018-07-08] MEDS ORDERED: NICARDIPINE IV SCH (12:00)
[2018-07-08] MEDS ORDERED: DEXTROSE 5% IV SCH (12:00)
--- NOTE | 2018-07-08 12:12 | XRay Report ---
KUB HISTORY: NG placement COMPARISON: None. FINDINGS: The bowel gas pattern is unremarkable. There are no dilated loops of small bowel to suggest an obstruction. No renal calculi. No ureteral calculi. No pneumoperitoneum or pneumatosis. Nasogast corey tube terminates in the expected location of the gastric antrum/pylorus. IMPRESSION: Nasogastric tube terminates in the expected location of the gastric antrum/pylorus. Electronically signed by: Malik Montanez M.D. 07/08/2018 12:11 PM
--- NOTE | 2018-07-08 16:36 | Hospitalist Progress Note ---
Date of Service July 08, 2018 Assessment & Plan (1) Lethargy: CT head negative on 07/05 for acute process. Ammonia level normal. Much improved today now off vent for over 24 hours, and following commands, answering questions and is oriented BPs better controlled so maybe was hypertensive encephalopathy -no need for brain MRI at this point as is much improved Minimize any narcotics or other [employer] altering medication. (2) Hypertension: Better controlled today but remains on nicardipine infusion for refractory HTN. -Continues on large dose of coreg 50mg bid, along with amlodipine 10mg daily, and hydralazine 50mg po q8h -Wean off nicardipine drip as able to (3) Acute respiratory failure with hypoxia: Secondary to b/l community-acquired pneumonia and ARDS. Patient worsened after admission and transitioned to BiPAP on 07/01. Intubated later on 07/01 after failing BIPAP. Underwent bronch by Dr. Carcamo in the ICU - cultures from bronch remain negative and this was likely a viral pneumonia. Now extubated on 07/07, hypoxia much improved and weaned to 2 L nasal cannula Appreciate grinding machine operator automatic management (4) Multifocal pneumonia: bilateral. see discussion above in acute hypoxic respiratory failure. Pct was negative, cultures from bronch negative Remains off all antibiotics afebrile. Follow CX to resolution (5) Acute kidney injury: Likely sepsis-associated ATN. JEANETTE inhibitor use and IV contrast may have contributed as well. Urine eosinophils negative With large amount of proteinuria on admission, now improved Nephrology following; recs appreciated. Continue holding JEANETTE, Thiazide diuretic and Aldactone. Construction Equipment Mechanic Helper improved again today to 2.72, continues to be making copious urine Daily BMP. (6) Severe sepsis: with ATN, respiratory failure, etc. source- pulmonary. continue supportive care. Now resolved (7) Non-ischemic cardiomyopathy: history of such - now resolved. (8) CHF (congestive heart failure): History of systolic CHF. Now resolved on echocardiogram here with normal LV function. CVPs are normal. No evidence of decompensated CHF although she has positive fluid balance. (9) Elevated troponin: Likely due to myocardial demand ischemia. (10) Diabetes: Now off insulin drip and still with some hyperglycemia -On basal bolus insulin appreciate pharmacy for glycemic management. Hemoglobin A1c 8% in the last few months overall control improved. (11) Hyperlipidemia: statin (12) CKD (chronic kidney disease), stage III: baseline Cr about 1.3. now with ATN. (13) Proteinuria: 24 hour urine protein with 1 gram. Spot protein to creatinine ratio on admission was 11.1 but is now improved down to 1.9 Proteinuria likely contributing to hypoalbuminemia. Not likely acute presentation of glomerulonephritis Appreciate nephrology assistance. ANCA, anti-GBM still pending. (14) History of CVA (cerebrovascular accident): History of left basal ganglia CVA in September 2016. Cont plavix, statin, etc. CT head on 07/05 negative. (15) Anemia: Fecal occult, iron studies, b12, folate -- all negative/normal. Likely anemia secondary to inflammation and blood draws Hemoglobin stable to slightly improved today at 8.5 Tx if hemoglobin approaches 7. (16) Thrombocytopenia: Now resolved and was likely due to severe sepsis (17) Morbid obesity with BMI of 40.0-44.9, adult: BMI 38.5 (18) Hypoalbuminemia: severe. Secondary to proteinuria and poor nutrition Still unable to swallow-has a core safe in place as of 07/08 and is continuing to receive enteral nutrition -Advance diet as tolerated when able to swallow -Appreciate speech evaluations (19) Hypernatremia: Sodium continues to be elevated 148 due to total body free water deficit -Was receiving free water flushes but now on D5W times 1 L -Follow BMP in the morning (20) Oral candidiasis: First noted on 07/08 She cannot swallow either clotrimazole troches or nystatin swish and swallow -Will load with fluconazole 200 mg IV x1 now and then dose 100 mg IV daily times 7 days (21) DVT prophylaxis: Heparin 5,000 units q8hr. Disposition-remain in ICU overnight and if can be titrated off the nicardipine drip, she can move to the telemetry unit I discussed the case with the grinding machine operator automatic Subjective Much improved today, is more alert and awake and answering questions properly. She still unable to swallow adequately and had a course of tube placed for enteric feeds. Her voice is still hoarse but is improved also. She remains on a nicardipine drip but her blood pressures are improving. Has been weaned down to 2 L nasal cannula. Complains of some mildly productive cough. No abdominal pain or nausea. She is moving her bowels. Denies chest pain or shortness of breath. Review of Systems All systems reviewed & are unremarkable except as noted in HPI & below Physical Exam Vital Signs (Past 24 Hours): Last Vital Signs Temp 36.5 C 07/08/18 04:00 Pulse 72 07/08/18 12:31 Resp 20 07/08/18 15:23 BP 144/69 H 07/08/18 12:31 Pulse Ox 98 07/08/18 15:23 Constitutional: well developed and + obese; no acute distress Eyes: PERRL, conjunctivae normal, anicteric sclerae ENMT: Ears: no hearing impairment Nose: no facial exam abnormality Mouth: + oral mucosal abnormality (With white exudate in patches on tongue) Neck: trachea midline, no thyromegaly Respiratory: normal respiratory effort Auscultation: + rhonchi (on right side) and + wheezes (a few scattered exp wheezes) Cardiovascular: RRR, no murmur, no edema Gastrointestinal (Abdomen): normal bowel sounds, soft, nontender, no hepatosplenomegaly Musculoskeletal: Extremities: extremities normal to inspection; no cyanosis and no clubbing Skin: no rashes, warm and dry Neurologic: moves all extremities and awake; no focal motor deficits Psychiatric: Orientation: alert, oriented to person and cooperative Results & Data Laboratory Results 07/08/18 07/08/18 07/08/18 Range/Units 16:16 12:43 08:38 WBC (4.8-10.8) K/uL RBC (4.2-5.4) M/uL Hgb (12.0-16.0) g/dL Hct (37-47) % MCV (80-100) fL MCH (25-34) pg MCHC (32-36) g/dL RDW Std Deviation (36.4-46.3) fL RDW Coeff of Braeden (11.5-14.5) % Plt Count (130-400) K/uL MPV (7.4-10.4) fL Sodium (136-145) mmol/L Potassium (3.5-5.1) mmol/L Chloride (98-107) mmol/L Carbon Dioxide (21-32) mmol/L Anion Gap (3-11) BUN (7-18) mg/dl Creatinine (0.6-1.2) mg/dl Est Cr Clr Drug Dosing ml/min Est GFR ( Amer) Est GFR (Non-Af Amer) BUN/Creatinine Ratio (10-20) Glucose (70-99) mg/dl POC Glucose 283 H 227 H 137 H (70-99) POC Glucose (other) (70-99) mg/dl Calcium (8.5-10.1) mg/dl Phosphorus (2.5-4.9) mg/dl Magnesium (1.8-2.4) mg/dl 07/08/18 07/08/18 07/08/18 Range/Units 06:10 05:12 04:21 WBC (4.8-10.8) K/uL RBC (4.2-5.4) M/uL Hgb (12.0-16.0) g/dL Hct (37-47) % MCV (80-100) fL MCH (25-34) pg MCHC (32-36) g/dL RDW Std Deviation (36.4-46.3) fL RDW Coeff of Braeden (11.5-14.5) % Plt Count (130-400) K/uL MPV (7.4-10.4) fL Sodium 148 H (136-145) mmol/L Potassium 3.5 (3.5-5.1) mmol/L Chloride 117 H (98-107) mmol/L Carbon Dioxide 24 (21-32) mmol/L Anion Gap 7.0 (3-11) BUN 88 H (7-18) mg/dl Creatinine 2.72 H D (0.6-1.2) mg/dl Est Cr Clr Drug Dosing 27.6 ml/min Est GFR ( Amer) 20.9 Est GFR (Non-Af Amer) 18.0 BUN/Creatinine Ratio 32.5 H (10-20) Glucose 123 H (70-99) mg/dl POC Glucose (70-99) POC Glucose (other) 127 H 126 H (70-99) mg/dl Calcium 9.5 (8.5-10.1) mg/dl Phosphorus 3.7 (2.5-4.9) mg/dl Magnesium 2.4 (1.8-2.4) mg/dl 07/08/18 07/08/18 07/08/18 Range/Units 04:21 04:19 03:10 WBC 9.63 (4.8-10.8) K/uL RBC 3.10 L (4.2-5.4) M/uL Hgb 8.5 L (12.0-16.0) g/dL Hct 26.2 L (37-47) % MCV 84.5 (80-100) fL MCH 27.4 (25-34) pg MCHC 32.4 (32-36) g/dL RDW Std Deviation 46.5 H (36.4-46.3) fL RDW Coeff of Braeden 15.0 H (11.5-14.5) % Plt Count 303 (130-400) K/uL MPV 10.3 (7.4-10.4) fL Sodium (136-145) mmol/L Potassium (3.5-5.1) mmol/L Chloride (98-107) mmol/L Carbon Dioxide (21-32) mmol/L Anion Gap (3-11) BUN (7-18) mg/dl Creatinine (0.6-1.2) mg/dl Est Cr Clr Drug Dosing ml/min Est GFR ( Amer) Est GFR (Non-Af Amer) BUN/Creatinine Ratio (10-20) Glucose (70-99) mg/dl POC Glucose (70-99) POC Glucose (other) 126 H 126 H (70-99) mg/dl Calcium (8.5-10.1) mg/dl Phosphorus (2.5-4.9) mg/dl Magnesium (1.8-2.4) mg/dl 07/08/18 07/08/18 07/08/18 Range/Units 02:24 01:53 01:30 WBC (4.8-10.8) K/uL RBC (4.2-5.4) M/uL Hgb (12.0-16.0) g/dL Hct (37-47) % MCV (80-100) fL MCH (25-34) pg MCHC (32-36) g/dL RDW Std Deviation (36.4-46.3) fL RDW Coeff of Braeden (11.5-14.5) % Plt Count (130-400) K/uL MPV (7.4-10.4) fL Sodium (136-145) mmol/L Potassium (3.5-5.1) mmol/L Chloride (98-107) mmol/L Carbon Dioxide (21-32) mmol/L Anion Gap (3-11) BUN (7-18) mg/dl Creatinine (0.6-1.2) mg/dl Est Cr Clr Drug Dosing ml/min Est GFR ( Amer) Est GFR (Non-Af Amer) BUN/Creatinine Ratio (10-20) Glucose (70-99) mg/dl POC Glucose (70-99) POC Glucose (other) 114 H 97 92 (70-99) mg/dl Calcium (8.5-10.1) mg/dl Phosphorus (2.5-4.9) mg/dl Magnesium (1.8-2.4) mg/dl 07/08/18 07/07/18 07/07/18 Range/Units 00:52 23:32 22:13 WBC (4.8-10.8) K/uL RBC (4.2-5.4) M/uL Hgb (12.0-16.0) g/dL Hct (37-47) % MCV (80-100) fL MCH (25-34) pg MCHC (32-36) g/dL RDW Std Deviation (36.4-46.3) fL RDW Coeff of Braeden (11.5-14.5) % Plt Count (130-400) K/uL MPV (7.4-10.4) fL Sodium (136-145) mmol/L Potassium (3.5-5.1) mmol/L Chloride (98-107) mmol/L Carbon Dioxide (21-32) mmol/L Anion Gap (3-11) BUN (7-18) mg/dl Creatinine (0.6-1.2) mg/dl Est Cr Clr Drug Dosing ml/min Est GFR ( Amer) Est GFR (Non-Af Amer) BUN/Creatinine Ratio (10-20) Glucose (70-99) mg/dl POC Glucose 143 H (70-99) POC Glucose (other) 97 113 H (70-99) mg/dl Calcium (8.5-10.1) mg/dl Phosphorus (2.5-4.9) mg/dl Magnesium (1.8-2.4) mg/dl 07/07/18 07/07/18 07/07/18 Range/Units 21:12 19:56 18:56 WBC (4.8-10.8) K/uL RBC (4.2-5.4) M/uL Hgb (12.0-16.0) g/dL Hct (37-47) % MCV (80-100) fL MCH (25-34) pg MCHC (32-36) g/dL RDW Std Deviation (36.4-46.3) fL RDW Coeff of Braeden (11.5-14.5) % Plt Count (130-400) K/uL MPV (7.4-10.4) fL Sodium (136-145) mmol/L Potassium (3.5-5.1) mmol/L Chloride (98-107) mmol/L Carbon Dioxide (21-32) mmol/L Anion Gap (3-11) BUN (7-18) mg/dl Creatinine (0.6-1.2) mg/dl Est Cr Clr Drug Dosing ml/min Est GFR ( Amer) Est GFR (Non-Af Amer) BUN/Creatinine Ratio (10-20) Glucose (70-99) mg/dl POC Glucose 161 H 187 H 209 H (70-99) POC Glucose (other) (70-99) mg/dl Calcium (8.5-10.1) mg/dl Phosphorus (2.5-4.9) mg/dl Magnesium (1.8-2.4) mg/dl Diagnostic Findings KUB image personally reviewed by me and agree with the following report: KUB HISTORY: NG placement COMPARISON: None. FINDINGS: The bowel gas pattern is unremarkable. There are no dilated loops of small bowel to suggest an obstruction. No renal calculi. No ureteral calculi. No pneumoperitoneum or pneumatosis. Nasogastric tube terminates in the expected location of the gastric antrum/pylorus. IMPRESSION: Nasogastric tube terminates in the expected location of the gastric antrum/pylorus. (1) Diabetes Diabetes mellitus complication status: without complication Diabetes mellitus half-way insulin use: with marine oil terminal 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 use Diabetes mellitus type: type 2 Qualified Code(s): E11.9 - Type 2 diabetes mellitus without complications; Z79.4 - marine oil terminal 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
[2018-07-08] MEDS ORDERED: FLUCONAZOLE 200 MG/100 ML BAG IV ONE (18:15)
[2018-07-08] MEDS: ACETAMINOPHEN 1,000 MG/100 ML VIAL IV PRN (19:57)
[2018-07-08] MEDS ORDERED: INSULIN GLARGINE SOLOSTAR 100 UNITS/ML 3 ML PEN SC SCH (21:00)
[2018-07-09] MEDS: ALBUT/IPRATROP 3MG/0.5MG NEB 3 ML VIAL NEB SCH ×6 (01:20→19:36)
[2018-07-09] MEDS: INSULIN ASPART 100 UNITS/ML 3 ML PEN SC SCH ×5 (04:56→19:33)
[2018-07-09] MEDS: PEPTAMEN INTENSE VHP 1.0 CAL 1,000 ML BAG GT SCH (05:28)
[2018-07-09] MEDS: HEPARIN SOD 5,000 UNIT/0.5 ML VIAL SQ SCH ×3 (05:28→21:03)
[2018-07-09] MEDS: HydrALAZINE TAB 50 MG TAB PO SCH ×3 (05:29→21:04)
[2018-07-09 05:42] LABS: Hematocrit (blood only) 24.9 % (37-47); Mean Corpuscular Hgb Conc 32.1 g/dL (32-36); Mean Corpuscular Volume 85.3 fL (80-100); Mean Platelet Volume 10.7 fL (7.4-10.4); Platelet Count 303 K/uL (130-400); RDW Coefficient of Variation 14.8 % (11.5-14.5); RDW Standard Deviation 46.4 fL (36.4-46.3); Red Blood Count 2.92 M/uL (4.2-5.4); White Blood Count 8.07 K/uL (4.8-10.8)
[2018-07-09 06:03] LABS: Alanine Aminotransferase 50 U/L (12-78); Albumin Level 1.9 gm/dl (3.4-5.0); Aspartate Aminotransferase 33 U/L (15-37); BUN Creatinine Ratio 38.3 (10-20); Bilirubin Direct < 0.1 mg/dl (0-0.2); Blood Urea Nitrogen 97 mg/dl (7-18); Calcium 9.4 mg/dl (8.5-10.1); Carbon Dioxide 24 mmol/L (21-32); Chloride 114 mmol/L (98-107); Creatinine Clr Calc Pharmacy 30.2 ml/min; Est GFR (African American) 22.7; Est GFR (Non-African American) 19.5; Glucose 191 mg/dl (70-99); Magnesium 2.4 mg/dl (1.8-2.4); Potassium 3.8 mmol/L (3.5-5.1); Sodium 145 mmol/L (136-145)
[2018-07-09 06:13] LABS: Alkaline Phosphatase 72 U/L (45-117); Bilirubin,Total 0.2 mg/dl (0.2-1); Phosphorus 3.1 mg/dl (2.5-4.9); Total Protein 6.3 gm/dl (6.4-8.2)
--- NOTE | 2018-07-09 08:10 | Pharmacy Report ---
Pharmacy Glycemic Short Note 2 - Date of Service July 09, 2018 - Glycemic Short BSG Results (Last 24 hours): 07/08/18 07/08/18 07/08/18 08:38 12:43 16:16 Glucose POC Glucose 137 H 227 H 283 H 07/08/18 07/08/18 07/09/18 19:48 23:47 04:15 Glucose POC Glucose 274 H 252 H 210 H 07/09/18 04:30 Glucose 191 H POC Glucose OUTPATIENT ANTIDIABETIC REGIMEN: * was not receiving treatment per Med Rec * HbA1c: 8.1% (04/26/18) The patient is currently receiving: * Basal insulin: Over the last 24 hrs: Lantus 15 units in AM, 5 units w/ lunch + 22 units at HS * Correctional Insulin: Novolog Correction per scale ACHS Goal Range: Low 110 mg/dL - High 140 mg/dL Correction Factor: 18 mg/dL/unit * Prandial insulin: Per carb ratio of 1 unit per 6 grams CHO consumed ASSESSMENT: 07/09 * Glycemic control deteriorated quickly with the reinstitution of continuous tube feeds * Severe hyperglycemia observed yesterday with peak BSG in 280's * Family was opposed to Q 1 hr BSG checks per nursing report, thus standard of care IV insulin infusion stopped yesterday * Will continue to titrate up SQ regimen today. Over the last 24 hrs 89 units SQ given with poor control. Will increase doses of basal and prandial with new regimen based upon an anticipated total daily requirement of ~100-110 units 07/08 * Patient was extubated yesterday, tube feedings were stopped when extubated * Patient will be receiving additional free water today (D5W 1 L) due to ongoing hypernatremia * She will also remain NPO until she passes a swallow eval * Insulin drip was running at 2.1units/hr overnight, however patient's family requested she not have Q1H BSG checks and drip held * BSG this AM in the 130's, will resume basal/bolus SQ regimen at this time given lessening stressors. * Doses will be based upon weight and mod-severe stress level PLAN FOR INPATIENT GLYCEMIC CONTROL: * Lantus 24 units SQ BID * Novolog SQ Q 4 hrs to continue due to poor control * Changing correction factor to 12 mg/dl/unit * Changing carb ratio to 1 unit per 4 grams CHO consumed * Continuing goal range Low 110 mg/dL - High 140 mg/dL
[2018-07-09] MEDS: CARVEDILOL 25 MG TAB PO SCH ×2 (08:33→21:05)
[2018-07-09] MEDS: ATORVASTATIN 40 MG TAB PO SCH (08:36)
[2018-07-09] MEDS: AMLODIPINE BESYLATE 5 MG TAB PO SCH (08:37)
[2018-07-09] MEDS: CLOPIDOGREL BISULFATE 75 MG TAB PO SCH (08:37)
[2018-07-09] MEDS ORDERED: INSULIN GLARGINE SOLOSTAR 100 UNITS/ML 3 ML PEN SC SCH (09:00)
--- NOTE | 2018-07-09 09:01 | Critical Care Progress Note ---
Date of Service July 09, 2018 Assessment & Plan (1) Acute respiratory failure with hypoxia: Neuro- toxic/metabolic encaphalopathy mental status improved. CV- HD stable. hypertension on carvediol. amlodipine, increase hydralazine. nicardipine goal 140-160. holding lisinopril with renal failure. atorvastatin, clopidogrel Pulmonary- acute hypoxic respiratory failure due to ARDS and pneumonia. improved oxygenation. extubated yesterday doing well on NC ID- cultures negative so far abx stopped 07/03 possible viral infection. monitor off abx. fluconazole for thrush Renal- acute renal failure likely ATN Cr improving slowly. good UOP. hypernatremia continue free water GI- failed swallow eval on tube feeds. continue to reassess Heme- anemia. heparin proph Endocrine- blood sugars slightly high Dispo- ok to transfer out of ICU PT/OT DNR Subjective no complaints BP improved off nicardipine Physical Exam Vital Signs (Past 24 Hours): Last Vital Signs Temp 36.6 C 07/09/18 04:00 Pulse 69 07/09/18 07:53 Resp 20 07/09/18 07:53 BP 143/66 H 07/09/18 06:00 Pulse Ox 94 07/09/18 07:53 Physical Exam: Constitutional: Comfortable NAD on NC HEENT: normocephalic atraumatic. MMM. CV: RRR nl s1,s2 no murmurs rubs or gallops Lungs: clear to auscultation bilaterally though slightly decreased. no accessory muscle use Abd: soft nontender nondistended. normal bowel sounds Ext: no edema. no cyanosis, no clubbing Skin: warm dry Neuro: alert and awake. moving all extremities Psych: normal mood and affect Results & Data Laboratory Results Laboratory Results - last 24 hr 07/08/18 07/08/18 07/08/18 12:43 16:16 19:48 WBC RBC Hgb Hct MCV MCH MCHC RDW Std Deviation RDW Coeff of Braeden Plt Count MPV Sodium Potassium Chloride Carbon Dioxide Anion Gap BUN Creatinine Est Cr Clr Drug Dosing Est GFR ( Amer) Est GFR (Non-Af Amer) BUN/Creatinine Ratio Glucose POC Glucose 227 H 283 H 274 H Calcium Phosphorus Magnesium Total Bilirubin Direct Bilirubin AST ALT Alkaline Phosphatase Total Protein Albumin 07/08/18 07/09/18 07/09/18 23:47 04:15 04:30 WBC 8.07 RBC 2.92 L Hgb 8.0 L Hct 24.9 L MCV 85.3 MCH 27.4 MCHC 32.1 RDW Std Deviation 46.4 H RDW Coeff of Braeden 14.8 H Plt Count 303 MPV 10.7 H Sodium Potassium Chloride Carbon Dioxide Anion Gap BUN Creatinine Est Cr Clr Drug Dosing Est GFR ( Amer) Est GFR (Non-Af Amer) BUN/Creatinine Ratio Glucose POC Glucose 252 H 210 H Calcium Phosphorus Magnesium Total Bilirubin Direct Bilirubin AST ALT Alkaline Phosphatase Total Protein Albumin 07/09/18 07/09/18 04:30 08:25 WBC RBC Hgb Hct MCV MCH MCHC RDW Std Deviation RDW Coeff of Braeden Plt Count MPV Sodium 145 Potassium 3.8 Chloride 114 H Carbon Dioxide 24 Anion Gap 7.0 BUN 97 H Creatinine 2.54 H Est Cr Clr Drug Dosing 30.2 Est GFR ( Amer) 22.7 Est GFR (Non-Af Amer) 19.5 BUN/Creatinine Ratio 38.3 H Glucose 191 H POC Glucose 208 H Calcium 9.4 Phosphorus 3.1 Magnesium 2.4 Total Bilirubin 0.2 Direct Bilirubin < 0.1 AST 33 ALT 50 Alkaline Phosphatase 72 Total Protein 6.3 L Albumin 1.9 L
--- NOTE | 2018-07-09 10:08 | Nephrology Progress Note ---
Date of Service July 09, 2018 Assessment & Plan (1) Acute kidney injury: -- Clinical presentation c/w ATN due to sepsis, iodinated contrast administration (CTA), and JEANETTE inhibitor use -- Patient remains in recovery phase. Creatinine is trending down (2.5 this am). Volume status is acceptable. Patient remains nonoliguric -- Hypernatremia has corrected -- Awaiting results of ANCA and anti-GBM antibody testing (pending as of 07/09/18 am) -- Home medications being held: JEANETTE and Aldactone. (2) CKD (chronic kidney disease), stage III: -- Baseline creatinine ~1.3 mg/dL. -- Baseline A4 proteinuria, 2.8 g/g random sample in November. -- CKD can be attributed to diabetic nephropathy and or possible FSGS. (3) Multifocal pneumonia: -- Clinically improving (4) Proteinuria: -- Not significantly edematous. -- 24 hour urine collection reveals ~ 1 g protein Subjective Mrs. Reyna was seen & examined in the ICU this morning. She has been extubated. She is awake, alert and breathing comfortably on RA. She had evidence of aspiration on her swallowing study and now has a core safe feeding tube in [facility]. Physical Exam Vital Signs (Past 24 Hours): Last Vital Signs Temp 36.6 C 07/09/18 04:00 Pulse 69 07/09/18 07:53 Resp 20 07/09/18 07:53 BP 143/66 H 07/09/18 06:00 Pulse Ox 94 07/09/18 07:53 Eyes: PERRL, conjunctivae normal, anicteric sclerae Neck: trachea midline, no thyromegaly Cardiovascular: RRR, no murmur, no edema Gastrointestinal (Abdomen): normal bowel sounds, soft, nontender, no hepatosplenomegaly Neurologic: moves all extremities and awake; not confused Results & Data Laboratory Results Laboratory Tests 07/03/18 07/09/18 07/09/18 10:37 04:30 04:30 WBC 8.07 Hgb 8.0 L Hct 24.9 L Plt Count 303 Sodium 145 Potassium 3.8 Chloride 114 H Carbon Dioxide 24 BUN 97 H Creatinine 2.54 H Glucose 191 H Anti-Proteinase 3 Pending Anti-Myeloperoxidase Pending ANCA Pending Glomerular Base Memb Ab Pending (1) Proteinuria Proteinuria type: other Qualified Code(s): R80.8 - Other proteinuria
[2018-07-09] MEDS ORDERED: ACETAMINOPHEN SOLN 500 MG/15.62 ML UDP NG PRN (11:03)
[2018-07-09] MEDS: FEEDING WATER FLUSH NG SCH ×2 (12:24→17:55)
[2018-07-09] MEDS ORDERED: INSULIN GLARGINE SOLOSTAR 100 UNITS/ML 3 ML PEN SC ONE (12:30)
[2018-07-09 13:56] LABS: Anti-Glom Basement Antibody <1.0 AI (<1.0); Myeloperoxidase Ab <1.0 AI (<1.0)
--- NOTE | 2018-07-09 15:37 | Hospitalist Progress Note ---
Date of Service July 09, 2018 Assessment & Plan (1) Multifocal pneumonia: bilateral. Pct was negative, cultures from bronch negative Remains off all antibiotics afebrile. Follow CX to resolution Follow chest x-ray in the morning (2) Acute kidney injury: Likely sepsis-associated ATN. JEANETTE inhibitor use and IV contrast may have contributed as well. Urine eosinophils negative With large amount of proteinuria on admission, now improved Nephrology following; recs appreciated. Continue holding JEANETTE, Thiazide diuretic and Aldactone. Front Of House Manager improved again today to 2.54, continues to be making copious urine Daily BMP. Serology pending (3) Acute respiratory failure with hypoxia: Secondary to b/l community-acquired pneumonia and ARDS. Patient worsened after admission and transitioned to BiPAP on 07/01. Intubated later on 07/01 after failing BIPAP. Underwent bronch by Dr. Carcamo in the ICU - cultures from bronch remain negative and this was likely a viral pneumonia. Now extubated on 07/07, hypoxia much improved and weaned to 2 L nasal cannula Appreciate interactive media marketing strategist management Stable for transfer out of the ICU -Continue scheduled albuterol nebs (4) Lethargy: CT head negative on 07/05 for acute process. Ammonia level normal. Continues to be much improved today now off vent for over 48 hours, and following commands, answering questions and is oriented BPs better controlled so maybe was hypertensive encephalopathy -no need for brain MRI at this point as is much improved Minimize any narcotics or other ADVERTISING SALES REPRESENTATIVE altering medication. (5) Hypertension: Much improved control and is now weaned off of the nicardipine infusion for refractory HTN. -Continues on large dose of coreg 50mg bid, along with amlodipine 10mg daily, and hydralazine 50mg po q8h -Holding home lisinopril and Aldactone for TANYA (6) Severe sepsis: with ATN, respiratory failure, etc. source- pulmonary. continue supportive care. Now resolved (7) Non-ischemic cardiomyopathy: history of such - now resolved. (8) CHF (congestive heart failure): History of systolic CHF. Now resolved on echocardiogram here with normal LV function. CVPs were normal. No evidence of decompensated CHF although she has positive fluid balance. (9) Elevated troponin: Likely due to myocardial demand ischemia. (10) Diabetes: Previously on insulin drip in the ICU and now discontinued, still with some hyperglycemia -On basal bolus insulin appreciate pharmacy for glycemic management. Hemoglobin A1c 8% in the last few months overall control improved. (11) Hyperlipidemia: statin (12) CKD (chronic kidney disease), stage III: baseline Cr about 1.3. now with ATN. (13) Proteinuria: 24 hour urine protein with 1 gram. Spot protein to creatinine ratio on admission was 11.1 but is now improved down to 1.9 Proteinuria likely contributing to hypoalbuminemia. Not likely acute presentation of glomerulonephritis Appreciate nephrology assistance. ANCA, anti-GBM still pending. (14) History of CVA (cerebrovascular accident): History of left basal ganglia CVA in September 2016. Cont plavix, statin, etc. CT head on 07/05 negative. (15) Anemia: Fecal occult, iron studies, b12, folate -- all negative/normal. Likely anemia secondary to inflammation and blood draws Hemoglobin stable to slightly decreased today to 8.0 Tx if hemoglobin approaches 7. (16) Thrombocytopenia: Now resolved and was likely due to severe sepsis (17) Morbid obesity with BMI of 40.0-44.9, adult: BMI 38.5 (18) Hypoalbuminemia: severe. Secondary to proteinuria and poor nutrition Still unable to swallow-has a core safe in place as of 07/08 and is continuing to receive enteral nutrition -Advance diet as tolerated when able to swallow -Appreciate speech evaluations daily -Plan is for video swallow on Wednesday (19) Hypernatremia: Now improved with addition of D5W x1 L and free water flushes -Follow BMP in the morning (20) Oral candidiasis: First noted on 07/08, improving She cannot swallow either clotrimazole troches or nystatin swish and swallow -Change IV fluconazole to fluconazole 100 mg per NG tube daily (21) DVT prophylaxis: Heparin 5,000 units q8hr. Left subclavian central line in place, Laws catheter in place, core safe tube in place through nose Disposition-transfer out of ICU to PCU PT/OT ordered, needs mobilization Subjective Patient was out of bed to chair for an hour today but then was tired. Still has a hacking cough. She failed her swallow study again today at the bedside. Remains n.p.o. She denies chest pain or shortness of breath. No abdominal pain. She is moving her bowels and making urine. Review of Systems All systems reviewed & are unremarkable except as noted in HPI & below Physical Exam Vital Signs (Past 24 Hours): Last Vital Signs Temp 36.7 C 07/09/18 08:01 Pulse 63 07/09/18 12:31 Resp 18 07/09/18 12:31 BP 146/61 H 07/09/18 12:31 Pulse Ox 95 07/09/18 13:07 Constitutional: well developed and + obese; no acute distress Eyes: PERRL, conjunctivae normal, anicteric sclerae ENMT: Ears: no hearing impairment Nose: no facial exam abnormality Mouth: + oral mucosal abnormality (With white exudate in patches on tongue improved from yesterday) Neck: trachea midline, no thyromegaly Respiratory: normal respiratory effort Auscultation: + rhonchi (on right side) and + wheezes (a few scattered exp wheezes) Cardiovascular: RRR, no murmur, no edema Gastrointestinal (Abdomen): normal bowel sounds, soft, nontender, no hepatosplenomegaly Musculoskeletal: Extremities: extremities normal to inspection; no cyanosis and no clubbing Skin: no rashes, warm and dry Neurologic: moves all extremities (but generally weak, 4/5 strength) and awake Psychiatric: Orientation: alert, oriented to person and cooperative Lymphatic: no cervical lymphadenopathy Results & Data Laboratory Results 07/09/18 07/09/18 07/09/18 Range/Units 12:15 08:25 04:30 WBC (4.8-10.8) K/uL RBC (4.2-5.4) M/uL Hgb (12.0-16.0) g/dL Hct (37-47) % MCV (80-100) fL MCH (25-34) pg MCHC (32-36) g/dL RDW Std Deviation (36.4-46.3) fL RDW Coeff of Braeden (11.5-14.5) % Plt Count (130-400) K/uL MPV (7.4-10.4) fL Sodium 145 (136-145) mmol/L Potassium 3.8 (3.5-5.1) mmol/L Chloride 114 H (98-107) mmol/L Carbon Dioxide 24 (21-32) mmol/L Anion Gap 7.0 (3-11) BUN 97 H (7-18) mg/dl Creatinine 2.54 H (0.6-1.2) mg/dl Est Cr Clr Drug Dosing 30.2 ml/min Est GFR ( Amer) 22.7 Est GFR (Non-Af Amer) 19.5 BUN/Creatinine Ratio 38.3 H (10-20) Glucose 191 H (70-99) mg/dl POC Glucose 232 H 208 H (70-99) Calcium 9.4 (8.5-10.1) mg/dl Phosphorus 3.1 (2.5-4.9) mg/dl Magnesium 2.4 (1.8-2.4) mg/dl Total Bilirubin 0.2 (0.2-1) mg/dl Direct Bilirubin < 0.1 (0-0.2) mg/dl AST 33 (15-37) U/L ALT 50 (12-78) U/L Alkaline Phosphatase 72 (45-117) U/L Total Protein 6.3 L (6.4-8.2) gm/dl Albumin 1.9 L (3.4-5.0) gm/dl Anti-Proteinase 3 (<1.0) AI Anti-Myeloperoxidase (<1.0) AI ANCA (Negative) Glomerular Base Memb Ab (<1.0) AI 07/09/18 07/09/18 07/08/18 Range/Units 04:30 04:15 23:47 WBC 8.07 (4.8-10.8) K/uL RBC 2.92 L (4.2-5.4) M/uL Hgb 8.0 L (12.0-16.0) g/dL Hct 24.9 L (37-47) % MCV 85.3 (80-100) fL MCH 27.4 (25-34) pg MCHC 32.1 (32-36) g/dL RDW Std Deviation 46.4 H (36.4-46.3) fL RDW Coeff of Braeden 14.8 H (11.5-14.5) % Plt Count 303 (130-400) K/uL MPV 10.7 H (7.4-10.4) fL Sodium (136-145) mmol/L Potassium (3.5-5.1) mmol/L Chloride (98-107) mmol/L Carbon Dioxide (21-32) mmol/L Anion Gap (3-11) BUN (7-18) mg/dl Creatinine (0.6-1.2) mg/dl Est Cr Clr Drug Dosing ml/min Est GFR ( Amer) Est GFR (Non-Af Amer) BUN/Creatinine Ratio (10-20) Glucose (70-99) mg/dl POC Glucose 210 H 252 H (70-99) Calcium (8.5-10.1) mg/dl Phosphorus (2.5-4.9) mg/dl Magnesium (1.8-2.4) mg/dl Total Bilirubin (0.2-1) mg/dl Direct Bilirubin (0-0.2) mg/dl AST (15-37) U/L ALT (12-78) U/L Alkaline Phosphatase (45-117) U/L Total Protein (6.4-8.2) gm/dl Albumin (3.4-5.0) gm/dl Anti-Proteinase 3 (<1.0) AI Anti-Myeloperoxidase (<1.0) AI ANCA (Negative) Glomerular Base Memb Ab (<1.0) AI 07/08/18 07/08/18 07/03/18 Range/Units 19:48 16:16 10:37 WBC (4.8-10.8) K/uL RBC (4.2-5.4) M/uL Hgb (12.0-16.0) g/dL Hct (37-47) % MCV (80-100) fL MCH (25-34) pg MCHC (32-36) g/dL RDW Std Deviation (36.4-46.3) fL RDW Coeff of Braeden (11.5-14.5) % Plt Count (130-400) K/uL MPV (7.4-10.4) fL Sodium (136-145) mmol/L Potassium (3.5-5.1) mmol/L Chloride (98-107) mmol/L Carbon Dioxide (21-32) mmol/L Anion Gap (3-11) BUN (7-18) mg/dl Creatinine (0.6-1.2) mg/dl Est Cr Clr Drug Dosing ml/min Est GFR ( Amer) Est GFR (Non-Af Amer) BUN/Creatinine Ratio (10-20) Glucose (70-99) mg/dl POC Glucose 274 H 283 H (70-99) Calcium (8.5-10.1) mg/dl Phosphorus (2.5-4.9) mg/dl Magnesium (1.8-2.4) mg/dl Total Bilirubin (0.2-1) mg/dl Direct Bilirubin (0-0.2) mg/dl AST (15-37) U/L ALT (12-78) U/L Alkaline Phosphatase (45-117) U/L Total Protein (6.4-8.2) gm/dl Albumin (3.4-5.0) gm/dl Anti-Proteinase 3 <1.0 (<1.0) AI Anti-Myeloperoxidase <1.0 (<1.0) AI ANCA Negative (Negative) Glomerular Base Memb Ab <1.0 (<1.0) AI (1) Hypertension Hypertension type: essential hypertension Qualified Code(s): I10 - Essential (primary) hypertension (2) CHF (congestive heart failure) Heart failure type: systolic Heart failure chronicity: chronic Qualified Code(s): I50.22 - Chronic systolic (congestive) heart failure (3) Diabetes Diabetes mellitus type: type 2 Diabetes mellitus terminal system operator insulin use: with alf use Diabetes mellitus complication status: without complication Qualified Code(s): E11.9 - Type 2 diabetes mellitus without complications; Z79.4 - FDC (current) use of insulin (4) Hyperlipidemia Hyperlipidemia type: mixed hyperlipidemia Qualified Code(s): E78.2 - Mixed hyperlipidemia (5) Proteinuria Proteinuria type: other Qualified Code(s): R80.8 - Other proteinuria (6) Anemia Anemia type: unspecified type Qualified Code(s): D64.9 - Anemia, unspecified
[2018-07-09] MEDS: FLUCONAZOLE SUSP 100 MG/10 ML UDP NG SCH (17:55)
[2018-07-09] MEDS ORDERED: FLUCONAZOLE 100 MG/50 ML BAG IV SCH (18:00)
[2018-07-09] MEDS: INSULIN GLARGINE SOLOSTAR 100 UNITS/ML 3 ML PEN SC SCH (21:02)
[2018-07-10] MEDS: INSULIN ASPART 100 UNITS/ML 3 ML PEN SC SCH ×6 (00:03→20:16)
[2018-07-10] MEDS: FEEDING WATER FLUSH NG SCH ×5 (00:04→20:14)
[2018-07-10] MEDS: PEPTAMEN INTENSE VHP 1.0 CAL 1,000 ML BAG GT SCH (00:04)
[2018-07-10] MEDS: HydrALAZINE TAB 50 MG TAB PO SCH ×3 (05:46→22:03)
[2018-07-10] MEDS: HEPARIN SOD 5,000 UNIT/0.5 ML VIAL SQ SCH (05:46)
[2018-07-10 05:57] LABS: Basophils # (auto) 0.03 K/uL (0-0.2); Basophils % (auto) 0.4 %; Eosinophils # (auto) 0.32 K/uL (0-0.5); Eosinophils % (auto) 4.3 %; Hematocrit (blood only) 23.3 % (37-47); Hemoglobin 7.5 g/dL (12.0-16.0); Immature Granulocytes # (auto) 0.07 K/uL (0.00-0.02); Immature Granulocytes % (auto) 0.9 %; Lymphocytes % (auto) 27.9 %; Mean Corpuscular Hgb Conc 32.2 g/dL (32-36); Mean Corpuscular Volume 84.7 fL (80-100); Mean Platelet Volume 10.1 fL (7.4-10.4); Monocytes # (auto) 0.95 K/uL (0.11-0.59); Monocytes % (auto) 12.6 %; Neutrophils # (auto) 4.05 K/uL (1.4-6.5); Neutrophils % (auto) 53.9 %; Platelet Count 306 K/uL (130-400); RDW Coefficient of Variation 15.1 % (11.5-14.5); RDW Standard Deviation 46.8 fL (36.4-46.3); Red Blood Count 2.75 M/uL (4.2-5.4); White Blood Count 7.52 K/uL (4.8-10.8)
[2018-07-10] MEDS: ALBUT/IPRATROP 3MG/0.5MG NEB 3 ML VIAL NEB SCH ×5 (06:07→18:59)
[2018-07-10 06:14] LABS: BUN Creatinine Ratio 44.9 (10-20); Calcium 9.7 mg/dl (8.5-10.1); Est GFR (African American) 24.3; Est GFR (Non-African American) 20.9; Potassium 3.9 mmol/L (3.5-5.1)
[2018-07-10 06:25] LABS: RBC Morphology Unremarkable
[2018-07-10] MEDS: INSULIN GLARGINE SOLOSTAR 100 UNITS/ML 3 ML PEN SC SCH ×2 (07:32→20:16)
[2018-07-10] MEDS: CLOPIDOGREL BISULFATE 75 MG TAB PO SCH (07:55)
[2018-07-10] MEDS: ATORVASTATIN 40 MG TAB PO SCH (07:55)
[2018-07-10] MEDS: CARVEDILOL 25 MG TAB PO SCH ×2 (07:55→20:15)
[2018-07-10] MEDS: AMLODIPINE BESYLATE 5 MG TAB PO SCH (07:55)
--- NOTE | 2018-07-10 08:16 | XRay Report ---
XR chest 1V portable CLINICAL HISTORY: 62 years-old Female presenting with f/u PNA. TECHNIQUE: Portable upright AP view of the chest was obtained. COMPARISON: 07/04/2018. FINDINGS: Left subclavian central venous catheter terminates at the superior cavoatrial junction. Feeding jerry ter descends below the diaphragm, terminus not visualized. Multiple external leads overlie the image. Atherosclerosis of the aortic arch. Cardiac silhouette enlarged. Mild pulmonary vascular prominence, which is significantly decreased from prior. Significant interval decrease in bilateral pulmonary in filtrates with improved aeration of the lung bases. Trace pleural effusions, also decreased from prio r. No large pneumothorax. Degenerative changes of the thoracic spine. Upper abdomen normal. IMPRESSION: 1. Significant interval improvement in volume overload and bilateral infiltrates, likely resolving e jillian. 2. Cardiomegaly. 3. Decreased pleural effusions, now trace. Electronically signed by: Will Gaitan M.D. 07/10/2018 8:14 AM
[2018-07-10] MEDS: LANSOPRAZOLE 30 MG SOLTAB NG SCH ×2 (09:22→20:15)
--- NOTE | 2018-07-10 09:57 | Nephrology Progress Note ---
Date of Service July 10, 2018 Assessment & Plan (1) Acute kidney injury: -- Clinical presentation c/w ATN due to sepsis, iodinated contrast administration (CTA), and JEANETTE inhibitor use -- Patient remains in recovery phase. Creatinine is trending down (2.4 this am). Volume status is acceptable. Patient remains nonoliguric -- Hypernatremia has corrected -- ANCA and anti-GBM antibody testing is negative -- Home medications being held: JEANETTE and Aldactone. (2) CKD (chronic kidney disease), stage III: -- Baseline creatinine ~1.3 mg/dL. -- Baseline A4 proteinuria, 2.8 g/g random sample in November. -- CKD can be attributed to diabetic nephropathy and or possible FSGS. (3) Multifocal pneumonia: -- Clinically improving. Patient has completed antibiotic therapy (4) Anemia: -- Recommend transfusion to maintain Hgb > or = 8.0 [address] Mrs. Reyna was seen & examined in her hospital room this morning. She is awake, alert and breathing comfortably on RA. She had evidence of aspiration on her swallowing study and now has a core safe feeding tube in place. She still has a moist cough Physical Exam Vital Signs (Past 24 Hours): Last Vital Signs Temp 36.4 C L 07/10/18 07:45 Pulse 68 07/10/18 09:27 Resp 18 07/10/18 09:27 BP 149/70 H 07/10/18 07:45 Pulse Ox 93 07/10/18 09:27 Eyes: PERRL, conjunctivae normal, anicteric sclerae Neck: trachea midline, no thyromegaly Respiratory: normal respiratory effort Auscultation: + rales Cardiovascular: RRR, no murmur, no edema Gastrointestinal (Abdomen): normal bowel sounds, soft, nontender, no hepato splenomegaly Neurologic: moves all extremities and awake; not confused Results & Data Laboratory Results Laboratory Tests 07/03/18 07/10/18 07/10/18 10:37 05:47 05:47 WBC 7.52 Hgb 7.5 L Hct 23.3 L Plt Count 306 Sodium 147 H Potassium 3.9 Chloride 117 H Carbon Dioxide 23 BUN 108 H Creatinine 2.40 H Anti-Proteinase 3 <1.0 Anti-Myeloperoxidase <1.0 ANCA Negative Glomerular Base Memb Ab <1.0 (1) Anemia Anemia type: unspecified type Qualified Code(s): D64.9 - Anemia, unspecified
[2018-07-10] MEDS ORDERED: SODIUM CHLORIDE 0.9% 250 ML IV PRN (10:14)
--- NOTE | 2018-07-10 10:14 | Hospitalist Progress Note ---
Date of Service July 10, 2018 Assessment & Plan (1) Acute respiratory failure with hypoxia: Secondary to b/l community-acquired pneumonia and ARDS. Patient worsened after admission and transitioned to BiPAP on 07/01. Intubated later on 07/01 after failing BIPAP. Underwent bronch by Dr. Carcamo in the ICU - cultures from bronch remain negative and this was likely a viral pneumonia. Now extubated on 07/07, hypoxia much improved and now weaned to room air at least at rest Appreciate Pulm/Critical Care management -Continue scheduled albuterol nebs -with significant rhonchi and difficulty clearing secretions--> add on Chest PT qid and IS q1h while awake -needs mobilization (2) Multifocal pneumonia: bilateral. Pct was negative, cultures from bronch negative Remains off all antibiotics afebrile. Follow CX to resolution Follow chest x-ray to resolution--> CXR on 07/10 much improved infiltrates, only trace effusions (3) Dysphagia: secondary to being ventilated x 1 week Remains with difficulty swallowing, failed Speech eval several times -plan for continued NPO status, continued enteral feeds through [employer] -advised pt and family to NOT place bed flat, always remain at least at 30 degrees -Video Swallow on Wednesday (4) Anemia: Fecal occult, iron studies, b12, folate -- all negative/normal. Likely anemia secondary to inflammation and blood draws Hemoglobin decreased again today to 7.5 Discussed transfusion with pt and she declines it today but is agreeable if Hgb<7 Hemodynamically stable, no evidence of gross bleeding -given previous ICU stay, h/o GERD, but no heartburn or melena here--> is at risk for PUD -start Prevacid bid via NGT -consult GI to see if needs EGD this admission -check Hemoccult again Transfuse if hemoglobin < 7. -follow CBC and type and cross in the AM (5) Acute kidney injury: Likely sepsis-associated ATN. JEANETTE inhibitor use and IV contrast may have contributed as well. Urine eosinophils negative With large amount of proteinuria on admission, now improved Nephrology following; recs appreciated. Continue holding ACEi, Thiazide diuretic and Aldactone. Pharmacy Resident improved again today to 2.40, continues to be making copious urine Daily BMP. Serology negative (6) Lethargy: CT head negative on 07/05 for acute process. Ammonia level normal. Continues to be much improved after being extubated, and following commands, answering questions and is oriented BPs better controlled so maybe was hypertensive encephalopathy -no need for brain MRI at this point as is much improved Minimize any narcotics or other PHOTOENGRAVER altering medication. (7) Hypertension: Much improved control and is now weaned off of the nicardipine infusion for refractory HTN. -Continues on large dose of coreg 50mg bid, along with amlodipine 10mg daily, and hydralazine 50mg po q8h -continue holding home lisinopril and Aldactone for TANYA (8) Severe sepsis: with ATN, respiratory failure, etc. source- pulmonary. continue supportive care. Now resolved (9) Non-ischemic cardiomyopathy: history of such - now resolved. (10) CHF (congestive heart failure): History of systolic CHF. Now resolved on echocardiogram here with normal LV function. CVPs were normal. No evidence of decompensated CHF although she has positive fluid balance. (11) Elevated troponin: Likely due to myocardial demand ischemia. (12) Diabetes: Previously on insulin drip in the ICU and now discontinued, still with some hyperglycemia -On basal bolus insulin appreciate pharmacy for glycemic management. Hemoglobin A1c 8% in the last few months overall control improved. (13) Hyperlipidemia: statin (14) CKD (chronic kidney disease), stage III: baseline Cr about 1.3. now with ATN. (15) Proteinuria: 24 hour urine protein with 1 gram. Spot protein to creatinine ratio on admission was 11.1 but is now improved down to 1.9 Proteinuria likely contributing to hypoalbuminemia. Not likely acute presentation of glomerulonephritis Appreciate nephrology assistance. ANCA, anti-GBM negative (16) History of CVA (cerebrovascular accident): History of left basal ganglia CVA in September 2016. -hold plavix for worsening anemia -continue statin CT head on 07/05 negative. (17) Thrombocytopenia: Now resolved and was likely due to severe sepsis (18) Morbid obesity with BMI of 40.0-44.9, adult: BMI 40.1 (19) Hypoalbuminemia: severe. Secondary to proteinuria and poor nutrition Still unable to swallow-has a core safe in place as of 07/08 and is continuing to receive enteral nutrition -Advance diet as tolerated when able to swallow -Appreciate speech evaluations daily -Plan is for video swallow on Wednesday (20) Hypernatremia: Had improved with addition of D5W x1 L and free water flushes Today is worse again -increase free water flushes to 150mL q6h for a total of 900 mL daily -Follow BMP in the morning (21) Oral candidiasis: First noted on 07/08, improving She cannot swallow either clotrimazole troches or nystatin swish and swallow -continue fluconazole 100 mg per NG tube daily-today day#3 (22) DVT prophylaxis: Place Heparin 5,000 units q8hr on HOLD for worsening anemia in case of occult GI bleed SCDs only for now Left subclavian central line in place, Laws catheter in place, core safe tube in place through nose Disposition-remain in PCU PT/OT ordered, needs mobilization Subjective Pt reports feeling "punky" today. Was lying flat when I walked in the room, receiving tube feeds, and started having a coughing spell with difficulty breathing. She was brought up to 90 degres and finally was able to cough out a small amount of sputum and felt better. POx was 97% immediately after the event. Denies chest pain but is feeling SOB at times. No headache, no abd pain. Last BM 2 days ago, was brown, not black. Reports a h/o GERD when on Trulicity but does take Pepcid occasionally at home Had a colonoscopy 10 yrs ago that was normal, is scheduled for a repeat colonoscopy this Nov. Never had an EGD. Thinks maybe she has a gluten sensitivity and has been told she was anemic in the past. Review of Systems All systems reviewed & are unremarkable except as noted in HPI & below Physical Exam Vital Signs (Past 24 Hours): Last Vital Signs Temp 36.4 C L 07/10/18 07:45 Pulse 68 07/10/18 09:27 Resp 18 07/10/18 09:27 BP 149/70 H 07/10/18 07:45 Pulse Ox 93 07/10/18 09:27 Constitutional: well developed and + obese Eyes: PERRL, conjunctivae normal, anicteric sclerae ENMT: Ears: no hearing impairment Nose: no facial exam abnormality Mouth: + oral mucosal abnormality (With scant white exudate on tongue improved from yesterday); no oropharynx abnormality (airway patent) Neck: trachea midline, no thyromegaly (small hematoma right side at site of previous IJ access attempt) Respiratory: normal respiratory effort (execpt had distress with presumed aspiration event during interview) Auscultation: + rhonchi (upper airways); no wheezes Cardiovascular: RRR, no murmur, no edema Gastrointestinal (Abdomen): normal bowel sounds, soft, nontender, no hepatosplenomegaly Musculoskeletal: Extremities: extremities normal to inspection; no cyanosis and no clubbing Skin: no rashes, warm and dry Neurologic: moves all extremities (but generally weak, 4/5 strength) and awake Psychiatric: Orientation: alert, oriented to person and cooperative Lymphatic: no cervical lymphadenopathy Results & Data Laboratory Results 07/10/18 07/10/18 07/10/18 Range/Units 07:29 05:47 05:47 WBC 7.52 (4.8-10.8) K/uL RBC 2.75 L (4.2-5.4) M/uL Hgb 7.5 L (12.0-16.0) g/dL Hct 23.3 L (37-47) % MCV 84.7 (80-100) fL MCH 27.3 (25-34) pg MCHC 32.2 (32-36) g/dL RDW Std Deviation 46.8 H (36.4-46.3) fL RDW Coeff of Braeden 15.1 H (11.5-14.5) % Plt Count 306 (130-400) K/uL MPV 10.1 (7.4-10.4) fL Immature Gran % (Auto) 0.9 % Neut % (Auto) 53.9 % Lymph % (Auto) 27.9 % Motley % (Auto) 12.6 % Eos % (Auto) 4.3 % Baso % (Auto) 0.4 % Immature Gran # (Auto) 0.07 H (0.00-0.02) K/uL Neut # (Auto) 4.05 (1.4-6.5) K/uL Lymph # (Auto) 2.10 (1.2-3.4) K/uL Motley # (Auto) 0.95 H (0.11-0.59) K/uL Eos # (Auto) 0.32 (0-0.5) K/uL Baso # (Auto) 0.03 (0-0.2) K/uL RBC Morphology Unremarkable Sodium 147 H (136-145) mmol/L Potassium 3.9 (3.5-5.1) mmol/L Chloride 117 H (98-107) mmol/L Carbon Dioxide 23 (21-32) mmol/L Anion Gap 7.0 (3-11) BUN 108 H (7-18) mg/dl Creatinine 2.40 H (0.6-1.2) mg/dl Est Cr Clr Drug Dosing 32.0 ml/min Est GFR ( Amer) 24.3 Est GFR (Non-Af Amer) 20.9 BUN/Creatinine Ratio 44.9 H (10-20) Glucose 114 H (70-99) mg/dl POC Glucose 148 H (70-99) Calcium 9.7 (8.5-10.1) mg/dl Anti-Proteinase 3 (<1.0) AI Anti-Myeloperoxidase (<1.0) AI ANCA (Negative) Glomerular Base Memb Ab (<1.0) AI 07/10/18 07/09/18 07/09/18 Range/Units 03:41 23:53 20:28 WBC (4.8-10.8) K/uL RBC (4.2-5.4) M/uL Hgb (12.0-16.0) g/dL Hct (37-47) % MCV (80-100) fL MCH (25-34) pg MCHC (32-36) g/dL RDW Std Deviation (36.4-46.3) fL RDW Coeff of Braeden (11.5-14.5) % Plt Count (130-400) K/uL MPV (7.4-10.4) fL Immature Gran % (Auto) % Neut % (Auto) % Lymph % (Auto) % Motley % (Auto) % Eos % (Auto) % Baso % (Auto) % Immature Gran # (Auto) (0.00-0.02) K/uL Neut # (Auto) (1.4-6.5) K/uL Lymph # (Auto) (1.2-3.4) K/uL Motley # (Auto) (0.11-0.59) K/uL Eos # (Auto) (0-0.5) K/uL Baso # (Auto) (0-0.2) K/uL RBC Morphology Sodium (136-145) mmol/L Potassium (3.5-5.1) mmol/L Chloride (98-107) mmol/L Carbon Dioxide (21-32) mmol/L Anion Gap (3-11) BUN (7-18) mg/dl Creatinine (0.6-1.2) mg/dl Est Cr Clr Drug Dosing ml/min Est GFR ( Amer) Est GFR (Non-Af Amer) BUN/Creatinine Ratio (10-20) Glucose (70-99) mg/dl POC Glucose 147 H 158 H 158 H (70-99) Calcium (8.5-10.1) mg/dl Anti-Proteinase 3 (<1.0) AI Anti-Myeloperoxidase (<1.0) AI ANCA (Negative) Glomerular Base Memb Ab (<1.0) AI 07/09/18 07/09/18 07/09/18 Range/Units 19:30 17:05 12:15 WBC (4.8-10.8) K/uL RBC (4.2-5.4) M/uL Hgb (12.0-16.0) g/dL Hct (37-47) % MCV (80-100) fL MCH (25-34) pg MCHC (32-36) g/dL RDW Std Deviation (36.4-46.3) fL RDW Coeff of Braeden (11.5-14.5) % Plt Count (130-400) K/uL MPV (7.4-10.4) fL Immature Gran % (Auto) % Neut % (Auto) % Lymph % (Auto) % Motley % (Auto) % Eos % (Auto) % Baso % (Auto) % Immature Gran # (Auto) (0.00-0.02) K/uL Neut # (Auto) (1.4-6.5) K/uL Lymph # (Auto) (1.2-3.4) K/uL Motley # (Auto) (0.11-0.59) K/uL Eos # (Auto) (0-0.5) K/uL Baso # (Auto) (0-0.2) K/uL RBC Morphology Sodium (136-145) mmol/L Potassium (3.5-5.1) mmol/L Chloride (98-107) mmol/L Carbon Dioxide (21-32) mmol/L Anion Gap (3-11) BUN (7-18) mg/dl Creatinine (0.6-1.2) mg/dl Est Cr Clr Drug Dosing ml/min Est GFR ( Amer) Est GFR (Non-Af Amer) BUN/Creatinine Ratio (10-20) Glucose (70-99) mg/dl POC Glucose 164 H 199 H 232 H (70-99) Calcium (8.5-10.1) mg/dl Anti-Proteinase 3 (<1.0) AI Anti-Myeloperoxidase (<1.0) AI ANCA (Negative) Glomerular Base Memb Ab (<1.0) AI 07/03/18 Range/Units 10:37 WBC (4.8-10.8) K/uL RBC (4.2-5.4) M/uL Hgb (12.0-16.0) g/dL Hct (37-47) % MCV (80-100) fL MCH (25-34) pg MCHC (32-36) g/dL RDW Std Deviation (36.4-46.3) fL RDW Coeff of Braeden (11.5-14.5) % Plt Count (130-400) K/uL MPV (7.4-10.4) fL Immature Gran % (Auto) % Neut % (Auto) % Lymph % (Auto) % Motley % (Auto) % Eos % (Auto) % Baso % (Auto) % Immature Gran # (Auto) (0.00-0.02) K/uL Neut # (Auto) (1.4-6.5) K/uL Lymph # (Auto) (1.2-3.4) K/uL Motley # (Auto) (0.11-0.59) K/uL Eos # (Auto) (0-0.5) K/uL Baso # (Auto) (0-0.2) K/uL RBC Morphology Sodium (136-145) mmol/L Potassium (3.5-5.1) mmol/L Chloride (98-107) mmol/L Carbon Dioxide (21-32) mmol/L Anion Gap (3-11) BUN (7-18) mg/dl Creatinine (0.6-1.2) mg/dl Est Cr Clr Drug Dosing ml/min Est GFR ( Amer) Est GFR (Non-Af Amer) BUN/Creatinine Ratio (10-20) Glucose (70-99) mg/dl POC Glucose (70-99) Calcium (8.5-10.1) mg/dl Anti-Proteinase 3 <1.0 (<1.0) AI Anti-Myeloperoxidase <1.0 (<1.0) AI ANCA Negative (Negative) Glomerular Base Memb Ab <1.0 (<1.0) AI Diagnostic Findings CXR image personally reviewed by and arabella with the following report: XR chest 1V portable CLINICAL HISTORY: 62 years-old Female presenting with f/u PNA. TECHNIQUE: Portable upright AP view of the chest was obtained. COMPARISON: 07/04/2018. FINDINGS: Left subclavian central venous catheter terminates at the superior cavoatrial junction. Feeding catheter descends below the diaphragm, terminus not visualized. Multiple external leads overlie the image. Atherosclerosis of the aortic arch. Cardiac silhouette enlarged. Mild pulmonary vascular prominence, which is significantly decreased from prior. Significant interval decrease in bilateral pulmonary infiltrates with improved aeration of the lung bases. Trace pleural effusions, also decreased from prior. No large pneumothorax. Degenerative changes of the thoracic spine. Upper abdomen normal. IMPRESSION: 1. Significant interval improvement in volume overload and bilateral infiltrates, likely resolving edema. 2. Cardiomegaly. 3. Decreased pleural effusions, now trace. (1) Diabetes Diabetes mellitus complication status: without complication Diabetes mellitus assisted insulin use: with assisted use Diabetes mellitus type: type 2 Qualified Code(s): E11.9 - Type 2 diabetes mellitus without complications; Z79.4 - terminal manager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
--- NOTE | 2018-07-10 11:29 | Pharmacy Report ---
Pharmacy Glycemic Short Note 2 - Date of Service July 10, 2018 - Glycemic Short BSG Results (Last 24 hours): 07/09/18 07/09/18 07/09/18 12:15 17:05 19:30 Glucose POC Glucose 232 H 199 H 164 H 07/09/18 07/09/18 07/10/18 20:28 23:53 03:41 Glucose POC Glucose 158 H 158 H 147 H 07/10/18 07/10/18 05:47 07:29 Glucose 114 H POC Glucose 148 H OUTPATIENT ANTIDIABETIC REGIMEN: * was not receiving treatment per Med Rec * HbA1c: 8.1% (04/26/18) The patient is currently receiving: * Basal insulin: Over the last 24 hrs: Lantus 24 units in AM, 4 units w/ lunch + 24 units at HS * Correctional Insulin: Novolog Correction per scale ACHS Goal Range: Low 110 mg/dL - High 140 mg/dL Correction Factor: 10 mg/dL/unit * Prandial insulin: Per carb ratio of 1 unit per 3 grams CHO consumed ASSESSMENT: 07/10 * Glycemic control has improved greatly over the last 24 hrs * 120 units of SQ insulin has been administered over last 24 hrs and last 4 BSGs at goal * Will begin to titrate down the Lantus dose slightly today now that Glycemic control improved as we are not yet at steady-state with this therapy * Will continue Q 4 hr Novolog cover with the currrent CF and CR for one more day, will likely convert to Q 6 hr dosing with Regular insulin tomorrow due to better p'kinetic profile for continuous tube feeds 07/09 * Glycemic control deteriorated quickly with the reinstitution of continuous tube feeds * Severe hyperglycemia observed yesterday with peak BSG in 280's * Family was opposed to Q 1 hr BSG checks per nursing report, thus standard of care IV insulin infusion stopped yesterday * Will continue to titrate up SQ regimen today. Over the last 24 hrs 89 units SQ given with poor control. Will increase doses of basal and prandial with new regimen based upon an anticipated total daily requirement of ~100-110 units 07/08 * Patient was extubated yesterday, tube feedings were stopped when extubated * Patient will be receiving additional free water today (D5W 1 L) due to ongoing hypernatremia * She will also remain NPO until she passes a swallow eval * Insulin drip was running at 2.1units/hr overnight, however patient's family requested she not have Q1H BSG checks and drip held * BSG this AM in the 130's, will resume basal/bolus SQ regimen at this time given lessening stressors. * Doses will be based upon weight and mod-severe stress level PLAN FOR INPATIENT GLYCEMIC CONTROL: * Lantus SQ BID * 10 units if tube feeds held * 18 units if tube feeds are running * Novolog SQ Q 4 hrs to continue for another 24 hrs * Continuing correction factor 10 mg/dl/unit * Continuing carb ratio 1 unit per 3 grams CHO consumed * Changing goal range to Low 110 mg/dL - High 160 mg/dL
[2018-07-10] MEDS: FLUCONAZOLE SUSP 100 MG/10 ML UDP NG SCH (17:54)
--- NOTE | 2018-07-10 21:09 | Consultation Report ---
DATE OF CONSULTATION: 07/10/2018 REASON FOR EVALUATION: Anemia. HISTORY OF PRESENT ILLNESS: The patient is a 62-year-old admitted with bilateral pneumonia at the end of June. The patient deteriorated and was intubated for a period of time and then was eventually weaned off the ventilator. Throughout this time, her kidney function deteriorated possibly related to JEANETTE inhibitors and IV contrast. She has also had multiple blood draws and her hemoglobin went from 12.8 on admission down to about 7.9 today. Her Hemoccults are negative. B12, folate, and iron studies are normal. She has had no GI symptoms other than difficulty swallowing. She has a video swallow scheduled for tomorrow. She is on nasogastric feedings because of her inability to swallow and is getting Prevacid via her nasogastric tube. GI consultation has been requested for consideration for an EGD. PAST MEDICAL HISTORY: Remarkable for obesity, hypertension, congestive heart failure, diabetes, hyperlipidemia, chronic kidney injury secondary to polycystic kidney disease. She has had a history of a CVA in the past. MEDICATIONS: Per list. ALLERGIES: TRULICITY AND ERYTHROMYCIN. FAMILY HISTORY: Positive for coronary disease. SOCIAL HISTORY: The patient is , does not smoke. Drinks alcohol at home. REVIEW OF SYSTEMS: Positive for shortness of breath at rest and weakness and inability to swallow. PHYSICAL EXAMINATION: GENERAL: The patient is morbidly obese with mild respiratory distress at rest. She has a nasogastric feeding tube in the right side of her nose. LUNGS: Showed decreased breath sounds. HEART: Showed a normal S1 and S2. Regular rate and rhythm. ABDOMEN: Obese, I was unable to feel any internal organs. IMPRESSION AND PLAN: The patient has developed progressive anemia during her hospital stay, probably from blood draws and poor nutrition. She is getting nasogastric feedings now because of inability to swallow and has a video swallow scheduled for tomorrow. She is obviously too debilitated and weak with dyspnea at rest currently to consider an EGD, especially if she has a video swallow scheduled for tomorrow. I plan on following her over the next few days to see how she does clinically and once she is improved and less unstable, we will consider doing an EGD during her hospital stay.
[2018-07-11] MEDS: INSULIN ASPART 100 UNITS/ML 3 ML PEN SC SCH ×6 (00:23→21:18)
[2018-07-11] MEDS: FEEDING WATER FLUSH NG SCH ×5 (00:27→16:31)
[2018-07-11] MEDS: HydrALAZINE TAB 50 MG TAB PO SCH ×3 (05:47→21:19)
[2018-07-11 06:01] LABS: Hematocrit (blood only) 24.5 % (37-47); Hemoglobin 7.8 g/dL (12.0-16.0); Mean Corpuscular Hgb Conc 31.8 g/dL (32-36); Mean Platelet Volume 9.9 fL (7.4-10.4); Platelet Count 337 K/uL (130-400); RDW Coefficient of Variation 15.4 % (11.5-14.5); RDW Standard Deviation 48.7 fL (36.4-46.3); Red Blood Count 2.85 M/uL (4.2-5.4); White Blood Count 8.73 K/uL (4.8-10.8)
[2018-07-11] MEDS: ALBUT/IPRATROP 3MG/0.5MG NEB 3 ML VIAL NEB SCH ×4 (06:20→19:11)
[2018-07-11 06:26] LABS: Basophils # (auto) 0.07 K/uL (0-0.2); Basophils % (auto) 0.8 %; Eosinophils # (auto) 0.29 K/uL (0-0.5); Eosinophils % (auto) 3.3 %; Immature Granulocytes # (auto) 0.05 K/uL (0.00-0.02); Immature Granulocytes % (auto) 0.6 %; Lymphocytes % (auto) 26.3 %; Monocytes # (auto) 0.73 K/uL (0.11-0.59); Monocytes % (auto) 8.4 %; Neutrophils # (auto) 5.29 K/uL (1.4-6.5); Neutrophils % (auto) 60.6 %; Rouleaux 1+
[2018-07-11 06:30] LABS: BUN Creatinine Ratio 50.9 (10-20); Calcium 10.5 mg/dl (8.5-10.1); Creatinine Clr Calc Pharmacy 34.3 ml/min; Est GFR (African American) 26.4; Est GFR (Non-African American) 22.8; Potassium 4.5 mmol/L (3.5-5.1)
[2018-07-11] MEDS: INSULIN GLARGINE SOLOSTAR 100 UNITS/ML 3 ML PEN SC SCH ×2 (07:50→21:18)
[2018-07-11] MEDS: CARVEDILOL 25 MG TAB PO SCH ×2 (07:51→21:19)
[2018-07-11] MEDS: AMLODIPINE BESYLATE 5 MG TAB PO SCH (07:54)
[2018-07-11] MEDS: LANSOPRAZOLE 30 MG SOLTAB NG SCH ×2 (07:55→21:19)
[2018-07-11] MEDS: ATORVASTATIN 40 MG TAB PO SCH (07:55)
[2018-07-11] MEDS ORDERED: HydrALAZINE TAB 50 MG TAB PO STA (09:53)
--- NOTE | 2018-07-11 10:49 | Hospitalist Progress Note ---
Date of Service July 11, 2018 Assessment & Plan (1) Acute respiratory failure with hypoxia: Secondary to b/l community-acquired pneumonia and ARDS. Patient worsened after admission and transitioned to BiPAP on 07/01. Intubated later on 07/01 after failing BIPAP. Underwent bronch by Dr. Carcamo in the ICU - cultures from bronch remain negative and this was likely a viral pneumonia. Now extubated on 07/07, hypoxia resolved and now weaned to room air at least at rest Appreciate Pulm/Critical Care management -Continue scheduled albuterol nebs -with significant rhonchi and difficulty clearing secretions which is improved today with increased strength-->continue Chest PT qid and IS q1h while awake -needs mobilization -Speech therapy following Video swallow with evidence of thin liquids aspirated (2) Multifocal pneumonia: bilateral. Viral, now much improved clinically and CXR clearing Pct was negative, cultures from bronch negative Remains off all antibiotics afebrile. Follow cultures to resolution Follow chest x-ray to resolution--> CXR on 07/10 much improved infiltrates, only trace effusions (3) Hypercalcemia: Ca++ now up to 12.18 when corrected for low albumin. Has been elevated on labs back in the fall as well. Discussed with Nephro, could be from dehydration vs debilitation Also with proteinuria -check iPTH, PTHRP, SPEP, UPEP, Vit D, and Free kappa light chain -follow BMP -continue IVF hydration (4) Dysphagia: secondary to being ventilated x 1 week Remains with difficulty swallowing, failed Speech eval several times Video swallow on 07/11 with thin liquids aspiration and esophageal dysmotility Speech Therapy advises that pt is aphonic and has no inversion of epiglottis--> recommends ENT evaluation -will place ENT consult in AM -ok to dc enteral feedings through [employer] and remove NGT -advised pt and family to NOT place bed flat, always remain at least at 30 degrees -advance diet today to nectar thick liquids and minced/moist diet -convert NG meds to po (5) Anemia: Fecal occult, iron studies, b12, folate -- all negative/normal. Likely anemia secondary to inflammation and blood draws Hemoglobin stable today at 7.8 Discussed transfusion with pt and she declined it but is agreeable if Hgb<7 Hemodynamically stable, no evidence of gross bleeding -given prolonged ICU stay on the ventilator, h/o GERD, --> is at risk for PUD -continue PPI bid -consult GI appreciated-recommends EGDpossibly later this admission, but not now given ongoing weakness and other acute issues -repeat Hemoccult ordered 07/10 still uncollected Transfuse if hemoglobin < 7. -follow CBC -ok to restart heparin SQ today for DVT proph but continue to hold Plavix (6) Acute kidney injury: Likely sepsis-associated ATN. JEANETTE inhibitor use and IV contrast may have contributed as well. Urine eosinophils negative With large amount of proteinuria on admission, now improved Nephrology following; recs appreciated. Serology negative Last Pattern Grader improved again today to 2.24 and continues to be making copious urine Laws remains in place -Continue holding ACEi, Thiazide diuretic and Aldactone. -continue Daily BMP. (7) Lethargy: CT head negative on 07/05 for acute process. Ammonia level normal. BPs better controlled so maybe was hypertensive encephalopathy and also side effects of prolonged sedation while on vent -no need for brain MRI at this point as is much improved Resolved (8) Hypertension: Improved control and is now weaned off of the nicardipine infusion for refractory HTN. However remains fairly hypertensive despite high doses of meds Renal US shows kidneys are not small Renal Doppler negative for SIRISHA -Continue coreg 50mg bid, amlodipine 10mg daily, and increase hydralazine to 100mg po q8h -continue holding home lisinopril and Aldactone for TANYA (9) Severe sepsis: with ATN, respiratory failure, etc. source- pulmonary. continue supportive care. Now resolved (10) Non-ischemic cardiomyopathy: history of such - now resolved. (11) CHF (congestive heart failure): History of systolic CHF. Now resolved on echocardiogram here with normal LV function. CVPs were normal. No evidence of decompensated CHF although she has 9L positive fluid balance. (12) Elevated troponin: Likely due to myocardial demand ischemia. (13) Diabetes: Previously on insulin drip in the ICU and now discontinued, still with some hyperglycemia -On basal bolus insulin appreciate pharmacy for glycemic management. Hemoglobin A1c 8% in the last few months overall control improved. (14) Hyperlipidemia: statin (15) CKD (chronic kidney disease), stage III: baseline Cr about 1.3. now with ATN. (16) Proteinuria: 24 hour urine protein with 1 gram. Spot protein to creatinine ratio on admission was 11.1 but is now improved down to 1.9 Proteinuria likely contributing to hypoalbuminemia. Not likely acute presentation of glomerulonephritis Appreciate nephrology assistance. ANCA, anti-GBM negative (17) History of CVA (cerebrovascular accident): History of left basal ganglia CVA in September 2016. -holding plavix for worsening anemia as above -continue statin CT head on 07/05 negative. (18) Thrombocytopenia: Now resolved and was likely due to severe sepsis (19) Morbid obesity with BMI of 40.0-44.9, adult: BMI 40.1 (20) Hypoalbuminemia: severe. Secondary to proteinuria and poor nutrition - receiving enteral nutrition as above and now transitioning to regular diet -follow albumin (21) Hypernatremia: Continues despite increased free water flushes yesterday Na+ today 146, BUN quite high at 114 seems to be dry intravascularly -add D5W back on at 100 mLs/hr as per my d/w Nephrology -Follow BMP in the morning (22) Oral candidiasis: First noted on 07/08, improved -continue fluconazole 100 mg po daily-today day#07/10 (23) DVT prophylaxis: ok to restart Heparin 5,000 units q8hr as hgb remains stable SCDs Left subclavian central line in place, Laws catheter in place, core safe tube now removed Disposition-remain in PCU PT/OT ordered, needs mobilization Subjective Feeling better today, getting more of her sputum coughed up and out, feeling stronger. No pain anywhere. Throat feels less sore today. No SOB or CP Discussed the case with Nephrology and Speech Therapy. Tele with NSR, rates in the 60s Physical Exam Vital Signs (Past 24 Hours): Last Vital Signs Temp 36.6 C 07/11/18 07:33 Pulse 71 07/11/18 07:33 Resp 18 07/11/18 07:33 BP 163/74 H 07/11/18 07:33 Pulse Ox 92 07/11/18 07:33 Constitutional: well developed and + obese Eyes: PERRL, conjunctivae normal, anicteric sclerae ENMT: Ears: no hearing impairment Nose: no facial exam abnormality Mouth: + oral mucosal abnormality (no further white exudate on tongue improved from yesterday); no oropharynx abnormality (airway patent) Neck: trachea midline, no thyromegaly (small hematoma right side at site of previous IJ access attempt) Respiratory: normal respiratory effort Auscultation: + rhonchi (upper airways); no wheezes Cardiovascular: RRR, no murmur, no edema Gastrointestinal (Abdomen): normal bowel sounds, soft, nontender, no hepatosplenomegaly Musculoskeletal: Extremities: extremities normal to inspection; no cyanosis and no clubbing Skin: no rashes, warm and dry Neurologic: moves all extremities (but generally weak, although much improved from yesterday) and awake; no focal motor deficits Psychiatric: Orientation: alert, oriented x 3 and cooperative Genitourinary: Laws in place draining clear yellow urine Results & Data Laboratory Results 07/11/18 07/11/18 07/11/18 Range/Units 20:05 16:12 11:20 POC Glucose 233 H 243 H (70-99) Total Protein (PEP) Pending Albumin (3.4-5.0) gm/dl Albumin (PEP) Pending Aqlxv-0-Fuorgizty Pending Uyqyz-5-Zvqgisqxe Pending Wztf-1-Akasumjx Pending Ldmc-9-Glufkswh Pending Gamma Globulins Pending Monoclonal Peak 3 Pending Ser Monoclonl Protein Pending Ser Monoclonal Prot 2 Pending PEP Interpretation Pending 25-OH Vitamin D Total (30-100) ng/ml PTH Intact (18.4-80.1) pg/ml PTH Related Protein Free Dietrich LC, Quant Pending Free Lambda LC, Quant Pending Free Dietrich/Lambda Ratio Pending Blood Type Antibody Screen Crossmatch 07/11/18 07/11/18 07/11/18 Range/Units 11:12 09:58 09:58 POC Glucose 150 H (70-99) Total Protein (PEP) Cancelled Albumin 2.2 L (3.4-5.0) gm/dl Albumin (PEP) Cancelled Heimr-5-Kbqpuvyqt Cancelled Chwnu-3-Gqjtccryw Cancelled Yldu-6-Hlycjfhu Cancelled Eaxg-6-Rrgtatkm Cancelled Gamma Globulins Cancelled Monoclonal Peak 3 Cancelled Ser Monoclonl Protein Cancelled Ser Monoclonal Prot 2 Cancelled PEP Interpretation Cancelled 25-OH Vitamin D Total (30-100) ng/ml PTH Intact (18.4-80.1) pg/ml PTH Related Protein Pending Free Dietrich LC, Quant Cancelled Free Lambda LC, Quant Cancelled Free Dietrich/Lambda Ratio Cancelled Blood Type Antibody Screen Crossmatch 07/11/18 07/11/18 07/11/18 Range/Units 09:58 09:58 07:12 POC Glucose 142 H (70-99) Total Protein (PEP) Albumin (3.4-5.0) gm/dl Albumin (PEP) Ntcny-0-Oelelacrl Erkpp-8-Ksmlimewm Abev-2-Qutkoakh Jftv-6-Hgkursqt Gamma Globulins Monoclonal Peak 3 Ser Monoclonl Protein Ser Monoclonal Prot 2 PEP Interpretation 25-OH Vitamin D Total 18.3 L (30-100) ng/ml PTH Intact 166.2 H (18.4-80.1) pg/ml PTH Related Protein Free Dietrich LC, Quant Free Lambda LC, Quant Free Dietrich/Lambda Ratio Blood Type Antibody Screen Crossmatch 07/11/18 Range/Units 05:44 POC Glucose (70-99) Total Protein (PEP) Albumin (3.4-5.0) gm/dl Albumin (PEP) Npvkf-7-Vsvmcjnfp Aspmb-3-Syyuthbdh Xfxc-9-Aitqtfrm Izdg-5-Hwfsqouu Gamma Globulins Monoclonal Peak 3 Ser Monoclonl Protein Ser Monoclonal Prot 2 PEP Interpretation 25-OH Vitamin D Total (30-100) ng/ml PTH Intact (18.4-80.1) pg/ml PTH Related Protein Free Dietrich LC, Quant Free Lambda LC, Quant Free Dietrich/Lambda Ratio Blood Type A Positive Antibody Screen NEGATIVE Crossmatch See Detail Diagnostic Findings Renal Doppler negative (1) Diabetes Diabetes mellitus complication status: without complication Diabetes mellitus halfway insulin use: with long term care pharmacist use Diabetes mellitus type: type 2 Qualified Code(s): E11.9 - Type 2 diabetes mellitus without complications; Z79.4 - long term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
[2018-07-11] MEDS: PEPTAMEN INTENSE VHP 1.0 CAL 1,000 ML BAG GT SCH (11:12)
[2018-07-11] MEDS: DEXTROSE 5% 1,000 ML IV SCH ×2 (11:16→21:23)
--- NOTE | 2018-07-11 11:53 | Nephrology Progress Note ---
Date of Service July 11, 2018 Assessment & Plan (1) Acute kidney injury: 60-year-old female with acute kidney injury in the setting respiratory failure secondary to pneumonia and ARDS requiring intubation. Currently extubated on room air. Developed acute kidney injury secondary to ATN due to sepsis, iodinated contrast administration (CTA), and JEANETTE inhibitor use. Creatinine has been slowly improving and staying stable around 2.2-2.4 however BUN has been rising, above 100 today. She also has hyponatremia and hyper calcemia. Blood pressure has been poorly controlled on 4 antihypertensive medications. -- start on D5W at 75 mL per day -- check vitamin-D, PTH, PTH RP, SPEP, UPEP and free light chain ratio. Renal artery doppler. --increase hydralazine to 100 mg t.i.d. Will follow (2) CKD (chronic kidney disease), stage III: -- Baseline creatinine ~1.3 mg/dL. -- Baseline A4 proteinuria, 2.8 g/g random sample in November. -- CKD can be attributed to diabetic nephropathy and or possible FSGS. (3) Multifocal pneumonia: (4) Anemia: Giovanni Mathis was seen & examined in her hospital room this morning. She is awake, alert and breathing comfortably on RA. She has feeding tube in place. Creatinine relatively stable but BUN rising. Hypernatremia stable at sodium 147. Hypercalcemia has been worsening. Blood pressure remained poorly controlled. Physical Exam Vital Signs (Past 24 Hours): Last Vital Signs Temp 36.5 C 07/11/18 11:31 Pulse 66 07/11/18 11:31 Resp 20 07/11/18 11:31 BP 138/71 07/11/18 11:31 Pulse Ox 94 07/11/18 11:31 Constitutional: WD/WN, vitals as above Respiratory: normal respiratory effort, lungs clear to auscultation Cardiovascular: RRR, no murmur, no edema Neurologic: moves all extremities and awake Psychiatric: A+Ox3, euthymic affect (1) Anemia Anemia type: unspecified type Qualified Code(s): D64.9 - Anemia, unspecified
--- NOTE | 2018-07-11 14:39 | Pharmacy Report ---
Pharmacy Glycemic Short Note 2 - Date of Service July 11, 2018 - Glycemic Short BSG Results (Last 24 hours): 07/10/18 07/10/18 07/11/18 15:55 20:08 00:22 Glucose POC Glucose 185 H 221 H 183 H 07/11/18 07/11/18 07/11/18 03:46 05:44 07:12 Glucose 117 H POC Glucose 133 H 142 H 07/11/18 11:12 Glucose POC Glucose 150 H OUTPATIENT ANTIDIABETIC REGIMEN: * was not receiving treatment per Med Rec * HbA1c: 8.1% (04/26/18) The patient is currently receiving: * Basal insulin: Over the last 24 hrs: Lantus 24 units in AM, 4 units w/ lunch + 24 units at HS * Correctional Insulin: Novolog Correction per scale ACHS Goal Range: Low 110 mg/dL - High 140 mg/dL Correction Factor: 10 mg/dL/unit * Prandial insulin: Per carb ratio of 1 unit per 3 grams CHO consumed ASSESSMENT: 07/11 * BSGs have continued to improve. Patient received 100 units of insulin yesterday (36 of this was basal). * She remains on tube feedings at 65 cc/hr with water flushes. Is now starting on D5W @ 100 cc/hr per nephrology for hypernatremia. * I'm anticipating BSGs to increase while on this; however, I do not want to increase the basal in anticipation of this in case IVFs d/c'd. Instead, will tighten the CF to provide more correctional insulin if needed * Was planning to switch Nolovog to Regular insulin for TF coverage but will hold off until I see how BSGs are controlled with the addition of dextrose 07/10 * Glycemic control has improved greatly over the last 24 hrs * 120 units of SQ insulin has been administered over last 24 hrs and last 4 BSGs at goal * Will begin to titrate down the Lantus dose slightly today now that Glycemic control improved as we are not yet at steady-state with this therapy * Will continue Q 4 hr Novolog cover with the currrent CF and CR for one more day, will likely convert to Q 6 hr dosing with Regular insulin tomorrow due to better p'kinetic profile for continuous tube feeds 07/09 * Glycemic control deteriorated quickly with the reinstitution of continuous tube feeds * Severe hyperglycemia observed yesterday with peak BSG in 280's * Family was opposed to Q 1 hr BSG checks per nursing report, thus standard of care IV insulin infusion stopped yesterday * Will continue to titrate up SQ regimen today. Over the last 24 hrs 89 units SQ given with poor control. Will increase doses of basal and prandial with new regimen based upon an anticipated total daily requirement of ~100-110 units 07/08 * Patient was extubated yesterday, tube feedings were stopped when extubated * Patient will be receiving additional free water today (D5W 1 L) due to ongoing hypernatremia * She will also remain NPO until she passes a swallow eval * Insulin drip was running at 2.1units/hr overnight, however patient's family requested she not have Q1H BSG checks and drip held * BSG this AM in the 130's, will resume basal/bolus SQ regimen at this time given lessening stressors. * Doses will be based upon weight and mod-severe stress level PLAN FOR INPATIENT GLYCEMIC CONTROL: * Lantus SQ BID - no change * 10 units if tube feeds held * 18 units if tube feeds are running * Novolog SQ Q 4 hrs - tighten CF and goal range as patient no longer critically ill * correction factor 8 mg/dl/unit * carb ratio 1 unit per 3 grams CHO consumed * tighten goal range to Low 110 mg/dL - High 140 mg/dL
--- NOTE | 2018-07-11 14:53 | Ultrasound Report ---
Study: Renal arterial Doppler. HISTORY: Uncontrolled hypertension FINDINGS: Doppler evaluation of the renal arterial structures bilaterally shows unremarkable renal ar terial flow. Waveforms are unremarkable. There are no abnormal velocity characteristics. Impedance ch aracteristics are unremarkable. IMPRESSION: Normal renal arterial Doppler. Electronically signed by: Colton Oseguera M.D. 07/11/2018 2:51 PM
--- NOTE | 2018-07-11 16:45 | Fluoroscopy Report ---
FL video swallow CLINICAL HISTORY: 62 years-old Female presenting with recent pneumonia, r/o aspiration, history of un controlled hypertension. TECHNIQUE: Video fluoroscopic evaluation of swallowing was performed in the AP and lateral projection s in conjunction with speech pathology. The patient was administered various textures, including nect ar-thick and thin liquid barium, a barium coated wafer, and barium pudding. COMPARISON: None. FINDINGS: Feeding catheter in place. Delayed clearance of contrast within the esophagus with holdup at the level of the upper esophagus. I ntraesophageal reflux and dysmotility evident. Delayed initiation of swallow reflux with delayed oral transit. Slightly weakened tongue-soft palate seal. Normal soft palate-superior constrictor muscle seal without evidence of nasopharyngeal regurgit ation allowing for the presence of the feeding catheter.. Normal oral transport/propulsion of the [place] d bolus. Normal hyoid elevation and epiglottic deflection. Mild pharyngeal bolus residual in the vall eculae and piriform sinuses. Deep laryngeal penetration of thin liquids to the level of the vocal folds as well as manuel aspiratio n. Aspiration was intermittently silent. [place] thick liquids were tolerated without evidence of aspi ration. Flash penetration of pudding and solid consistencies. These consistencies also resulted in th e largest amount of pharyngeal residual. None of the administered textures resulted in aspiration of barium contrast below the level of the true vocal folds. Fluoroscopy dosage (mGy): Not available. Fluoroscopy time: 5.1 minutes. Number or time of fluoroscopic spot images: 0. IMPRESSION: 1. Silent aspiration of thin liquids. 2. Wakened swallow reflex and tongue-soft palate seal. 3. Intraesophageal reflux and esophageal dysmotility. 4. Feeding catheter in place. 5. Please see the speech pathologist report for detailed findings and recommendations. Electronically signed by: Will Gaitan M.D. 07/11/2018 4:44 PM
--- NOTE | 2018-07-11 16:52 | Progress Note ---
DATE: 07/11/2018 The patient underwent a swallowing test today and passed without signs of aspiration. Her nasogastric feeding tube was subsequently removed and she is going to be advanced with her diet orally. Still coughing and short of breath and is weak and is not interested in pursuing an upper endoscopy at this time for her anemia, I suspect that her anemia may be related to multiple blood draws during the hospitalization as her Hemoccults were negative. Nevertheless, I would recommend an upper endoscopy at some point when her condition improves, I will continue to check on her routinely to see when this occurs.
[2018-07-11] MEDS: FLUCONAZOLE SUSP 100 MG/10 ML UDP NG SCH (16:59)
[2018-07-11] MEDS ORDERED: Nursing to Pharmacy Communication ONE (20:35)
[2018-07-12] MEDS: HydrALAZINE TAB 50 MG TAB PO SCH ×3 (05:15→20:55)
[2018-07-12] MEDS: DEXTROSE 5% 1,000 ML IV SCH (06:47)
[2018-07-12] MEDS ORDERED: ACETAMINOPHEN SOLN 500 MG/15.62 ML UDP PO PRN ×2 (06:48→09:00)
[2018-07-12] MEDS: ALBUT/IPRATROP 3MG/0.5MG NEB 3 ML VIAL NEB SCH ×5 (07:18→22:37)
[2018-07-12 07:24] LABS: Hematocrit (blood only) 22.6 % (37-47); Hemoglobin 7.3 g/dL (12.0-16.0); Mean Corpuscular Hgb Conc 32.3 g/dL (32-36); Mean Corpuscular Volume 85.9 fL (80-100); Platelet Count 315 K/uL (130-400); RDW Coefficient of Variation 15.6 % (11.5-14.5); RDW Standard Deviation 48.8 fL (36.4-46.3); Red Blood Count 2.63 M/uL (4.2-5.4); White Blood Count 7.24 K/uL (4.8-10.8)
[2018-07-12 07:54] LABS: Basophils # (auto) 0.06 K/uL (0-0.2); Basophils % (auto) 0.8 %; Eosinophils # (auto) 0.28 K/uL (0-0.5); Eosinophils % (auto) 3.9 %; Immature Granulocytes # (auto) 0.03 K/uL (0.00-0.02); Immature Granulocytes % (auto) 0.4 %; Lymphocytes # (auto) 1.87 K/uL (1.2-3.4); Lymphocytes % (auto) 25.8 %; Monocytes # (auto) 0.73 K/uL (0.11-0.59); Monocytes % (auto) 10.1 %; Neutrophils # (auto) 4.27 K/uL (1.4-6.5); Toxic Granulation 1+
[2018-07-12 07:56] LABS: BUN Creatinine Ratio 46.3 (10-20); Calcium 10.2 mg/dl (8.5-10.1); Creatinine Clr Calc Pharmacy 35.5 ml/min; Est GFR (African American) 27.4; Est GFR (Non-African American) 23.6; Phosphorus 3.7 mg/dl (2.5-4.9); Potassium 4.6 mmol/L (3.5-5.1)
[2018-07-12] MEDS ORDERED: SODIUM BICARBONATE 8.4% 150 MEQ in DEXTROSE 5% 1,000 ML IV SCH (08:30)
[2018-07-12] MEDS: INSULIN GLARGINE SOLOSTAR 100 UNITS/ML 3 ML PEN SC SCH ×2 (08:59→20:57)
[2018-07-12] MEDS: INSULIN ASPART 100 UNITS/ML 3 ML PEN SC SCH ×5 (09:00→20:58)
[2018-07-12] MEDS: ATORVASTATIN 40 MG TAB PO SCH (09:01)
[2018-07-12] MEDS: CARVEDILOL 25 MG TAB PO SCH ×2 (09:02→20:54)
[2018-07-12] MEDS: AMLODIPINE BESYLATE 5 MG TAB PO SCH (09:02)
[2018-07-12] MEDS: PANTOprazole 40 MG TAB PO SCH ×2 (09:29→20:54)
[2018-07-12] MEDS: SODIUM BICARBONATE 8.4% 150 MEQ in DEXTROSE 5% 1,000 ML IV SCH ×2 (09:29→20:53)
[2018-07-12] MEDS: FEEDING WATER FLUSH NG SCH (09:45)
--- NOTE | 2018-07-12 10:17 | Nephrology Progress Note ---
Date of Service July 12, 2018 Assessment & Plan (1) Acute kidney injury: 60-year-old female with acute kidney injury in the setting respiratory failure secondary to pneumonia and ARDS requiring intubation. Currently extubated on room air. Developed acute kidney injury secondary to ATN due to sepsis, iodinated contrast administration (CTA), and JEANETTE inhibitor use. Creatinine has been slowly improving and staying stable around 2.2-2.4 however BUN has been rising, above 100 today. She also has hypernatremia and hypercalcemia. She reports known history of hyperparathyroidism for several years and her PTH has been 250-300. Previously she was recommended to have a parathyroidectomy however she refused that. Blood pressure improved. Renal function remained stable without significant improvement. Calcium remained elevated however slightly improved. Hypercalcemia seems to be multifactorial including primary hyperparathyroidism, increase bone resorption with immobility with acute illness, volume depletion and others. Hypernatremia resolved. Found to have gap metabolic acidosis, could be related to TANYA, ? D lactic acidosis -- change IV fluid to D5 with bicarbonate at 100 mL/hour -- continue current antihypertensive medications -- if calcium worsened further, will consider 1 dose of bisphosphonate however would hold off for now and continue with IV hydration Will follow (2) CKD (chronic kidney disease), stage III: -- Baseline creatinine ~1.3 mg/dL. -- Baseline A4 proteinuria, 2.8 g/g random sample in November. -- CKD can be attributed to diabetic nephropathy and or possible FSGS. (3) Multifocal pneumonia: -- Clinically improving. Patient has completed antibiotic therapy (4) Anemia: -- Recommend transfusion to maintain Hgb > or = 8.0 (5) Hyperparathyroidism: (6) Metabolic acidosis: Giovanni Mathis was seen & examined in her hospital room this morning. She is awake, alert and breathing comfortably on RA. She has feeding tube in place. Creatinine relatively stable but BUN rising. Hypernatremia stable at sodium 147. Hypercalcemia has been worsening. Blood pressure remained poorly controlled. Physical Exam Vital Signs (Past 24 Hours): Last Vital Signs Temp 36.4 C L 07/12/18 07:27 Pulse 65 07/12/18 07:27 Resp 16 07/12/18 07:27 BP 129/67 07/12/18 07:27 Pulse Ox 98 07/12/18 07:27 Constitutional: WD/WN, vitals as above Respiratory: normal respiratory effort, lungs clear to auscultation Cardiovascular: RRR, no murmur, no edema Neurologic: moves all extremities and awake Psychiatric: A+Ox3, euthymic affect (1) Anemia Anemia type: unspecified type Qualified Code(s): D64.9 - Anemia, unspecified
[2018-07-12 10:59] LABS: Albumin Level 2.1 gm/dl (3.4-5.0)
--- NOTE | 2018-07-12 11:30 | Pharmacy Report ---
Pharmacy Glycemic Short Note 2 - Date of Service July 12, 2018 - Glycemic Short BSG Results (Last 24 hours): 07/11/18 07/11/18 07/11/18 11:12 16:12 20:05 Glucose POC Glucose 150 H 243 H 233 H 07/12/18 07/12/18 07/12/18 07:06 07:34 11:12 Glucose 165 H POC Glucose 192 H 190 H OUTPATIENT ANTIDIABETIC REGIMEN: * was not receiving treatment per Med Rec - of note, looks like Novolog and V-go were filled as recently as 06/2018. Will need to confirm this info w/ patient on 07/13 and update med list appropriately * HbA1c: 8.1% (04/26/18) The patient is currently receiving: * Basal insulin: Over the last 24 hrs: Lantus 24 units in AM, 4 units w/ lunch + 24 units at HS * Correctional Insulin: Novolog Correction per scale ACHS Goal Range: Low 110 mg/dL - High 140 mg/dL Correction Factor: 10 mg/dL/unit * Prandial insulin: Per carb ratio of 1 unit per 3 grams CHO consumed ASSESSMENT: 07/12 * Ms. Reyna received 70 units of insulin yesterday (28 of this was basal) * Several changes in terms of insulin resistance/sensitivity have changed in the last 24 hours: * D5 @ 100 cc/hr has been changed to D5 + bicarb @ 100 cc/hr per nephro * Tube feeds stopped last night and po diet has been initiated * I'm anticipating insulin requirements to remain about the same while on the dextrose IVFs; however, do not want to be overly aggressive should these fluids be stopped. Will continue the same Lantus dose but change parameters to give the higher dose if BSG elevated. Current Novolog parameters are fairly aggressive so will loosen slightly now that continuous tube feeds are no longer on board. 07/11 * BSGs have continued to improve. Patient received 100 units of insulin yesterday (36 of this was basal). * She remains on tube feedings at 65 cc/hr with water flushes. Is now starting on D5W @ 100 cc/hr per nephrology for hypernatremia. * I'm anticipating BSGs to increase while on this; however, I do not want to increase the basal in anticipation of this in case IVFs d/c'd. Instead, will tighten the CF to provide more correctional insulin if needed * Was planning to switch Nolovog to Regular insulin for TF coverage but will hold off until I see how BSGs are controlled with the addition of dextrose 07/10 * Glycemic control has improved greatly over the last 24 hrs * 120 units of SQ insulin has been administered over last 24 hrs and last 4 BSGs at goal * Will begin to titrate down the Lantus dose slightly today now that Glycemic control improved as we are not yet at steady-state with this therapy * Will continue Q 4 hr Novolog cover with the currrent CF and CR for one more day, will likely convert to Q 6 hr dosing with Regular insulin tomorrow due to better p'kinetic profile for continuous tube feeds 07/09 * Glycemic control deteriorated quickly with the reinstitution of continuous tube feeds * Severe hyperglycemia observed yesterday with peak BSG in 280's * Family was opposed to Q 1 hr BSG checks per nursing report, thus standard of care IV insulin infusion stopped yesterday * Will continue to titrate up SQ regimen today. Over the last 24 hrs 89 units SQ given with poor control. Will increase doses of basal and prandial with new regimen based upon an anticipated total daily requirement of ~100-110 units 07/08 * Patient was extubated yesterday, tube feedings were stopped when extubated * Patient will be receiving additional free water today (D5W 1 L) due to ongoing hypernatremia * She will also remain NPO until she passes a swallow eval * Insulin drip was running at 2.1units/hr overnight, however patient's family requested she not have Q1H BSG checks and drip held * BSG this AM in the 130's, will resume basal/bolus SQ regimen at this time given lessening stressors. * Doses will be based upon weight and mod-severe stress level PLAN FOR INPATIENT GLYCEMIC CONTROL: * Lantus SQ BID - same dose but adjust to give per BSG * 10 units if BSG < 140 * 18 units if BSG 140 or above * Novolog SQ ACHS - loosen CF/CR slightly * correction factor 10 mg/dl/unit * carb ratio 1 unit per 5 grams CHO consumed * tighten goal range to Low 110 mg/dL - High 140 mg/dL Discharge Recommendations: * As per outpatient fill history, looks like patient uses the V-go insulin delivery device with Novolog up to 70 units/day. This will be clarified w/ patient on 07/13 and then d/c recs provided if necessary.
[2018-07-12] MEDS: HEPARIN SOD 5,000 UNIT/0.5 ML VIAL SQ SCH ×2 (15:10→20:56)
[2018-07-12] MEDS: FLUCONAZOLE 100 MG TAB PO SCH (18:00)
[2018-07-12 18:57] LABS: Albumin 2.5 G/DL (3.8-4.8); Alpha 1 Globulin 0.4 G/DL (0.2-0.3); Beta-1-Globulin 0.4 G/DL (0.4-0.6); Beta-2-Globulin 0.4 G/DL (0.2-0.5); Free Kappa 97.6 MG/L (3.3-19.4); Free Kappa/Lambda Ratio 1.87 (0.26-1.65); Free Lambda 52.3 MG/L (5.7-26.3); Monoclonal Protein Band 1 DNR G/DL (NOT DETECTED); Monoclonal Protein Band 2 DNR G/DL (NOT DETECTED); Monoclonal Protein Band 3 DNR G/DL (NOT DETECTED); Total Protein 5.7 G/DL (6.2-8.3)
[2018-07-12] MEDS: ACETAMINOPHEN 500 MG TAB PO PRN (21:01)
--- NOTE | 2018-07-12 22:05 | Hospitalist Progress Note ---
Date of Service July 12, 2018 Assessment & Plan (1) Acute respiratory failure with hypoxia: Resolving. 2nd to b/l community-acquired pneumonia and then subsequent development of ARDS (suspected). Patient worsened after admission and transitioned to BiPAP on 07/01. Intubated later on 07/01 after failing BIPAP. Underwent bronch by Dr. Carcamo in the ICU with negative cultures. Extubated from the vent on 07/07/18. Now in room air. Present on Admission?: Yes (2) Multifocal pneumonia: bilateral. see discussion above in acute hypoxic respiratory failure. clinically resolving. she is off antibiotics. (3) Lethargy: Resolved. Occurred while in ICU. Etiology was uncertain. PRES? HTN encephalopathy? Either way it is resolved. CT head negative earlier this stay. Present on Admission?: No (4) Hypercalcemia: 2nd to hyperparathyroidism. Cont gentle hydration. Defer management to nephrology. (5) Hyperparathyroidism: (6) Hypertension: Continue coreg along with amlodipine and hydralazine. BPs remain high at times. Hypercalcemia may be making such worse. Renal artery dopplers negative. (7) Acute kidney injury: Likely sepsis-associated ATN. JEANETTE inhibitor use and IV contrast may have contributed as well. Creatinine continues to gradually improve each day. BMP am. Appreciate nephrology assistance. (8) Severe sepsis: resolved. (9) Non-ischemic cardiomyopathy: history of such - now resolved. (10) CHF (congestive heart failure): appears compensated today. (11) Elevated troponin: earlier this stay. Likely due to myocardial demand ischemia. (12) Diabetes: control improving. pharmacy managing. (13) Hyperlipidemia: statin (14) CKD (chronic kidney disease), stage III: baseline Cr about 1.3. now with ATN. creatinine each day improving. (15) Proteinuria: 24 hour urine protein with 1 gram. Proteinuria likely contributing to hypoalbuminemia. Appreciate nephrology assistance. awaiting work-up for MM, etc (16) History of CVA (cerebrovascular accident): History of left basal ganglia CVA in September 2016. Plavix had been on hold - perhaps due to low platelets; perhaps due to concern of GI bleed. Fecal occult neg; platelets normal -- thus, resume plavix. CT head this admission negative for acute stroke. (17) Anemia: Fecal occult, iron studies, b12, folate -- all negative/normal. If Hb is about 7 tomorrow then transfuse. (18) Thrombocytopenia: Likely due to severe sepsis. resolved. (19) Morbid obesity with BMI of 40.0-44.9, adult: BMI 40 (20) Hypoalbuminemia: severe. cont protein supplements, etc. (21) Dysphagia: appreciate speech assistance. on modified diet. Dr. Azul from ENT to see. suspected to be from trauma from intubation, prolonged intubation, etc. (22) Oral candidiasis: cont diflucan day #5 of 7 of Rx (23) Metabolic acidosis: lactate negative today presumably due to renal failure? nephrology added bicarbonate repeat BMP am (24) DVT prophylaxis: Heparin 5,000 units q8hr. updated at bedside today. will most likely need rehab following discharge. Subjective patient awake/alert. at bedside. patient states she worked with PT/OT today but was only able to walk in the room. very fatigued/tired. appetite fair. still with dry cough. tele stable overnight. Constitutional: + fatigue, + weakness and + anorexia; no fever Respiratory: + dyspnea on exertion Cardiovascular: no chest pain and no orthopnea Gastrointestinal: no abdominal pain Physical Exam Vital Signs (Past 24 Hours): Last Vital Signs Temp 36.5 C 07/12/18 19:47 Pulse 69 07/12/18 19:47 Resp 18 07/12/18 19:47 BP 131/70 07/12/18 19:47 Pulse Ox 96 07/12/18 19:47 Constitutional: + ill appearing and + morbidly obese; no acute distress pallor ENMT: external ear and nose normal, oropharynx normal Respiratory: normal respiratory effort Auscultation: + rhonchi and + wheezes Cardiovascular: Rate/Rhythm: regular rate and regular rhythm Heart Sounds: normal S1 and normal S2 Vessels: posterior tibial pulses present and dorsalis pedis pulses present; no JVD Extremities: + edema (<1+ b/l) Gastrointestinal (Abdomen): normal bowel sounds, soft, nontender, no hepatosplenomegaly Skin: pallor; left subclavian line clean Psychiatric: A+Ox3, euthymic affect Results & Data Laboratory Results Laboratory Results - last 24 hr 07/11/18 07/12/18 07/12/18 11:20 07:06 07:06 WBC 7.24 RBC 2.63 L Hgb 7.3 L Hct 22.6 L MCV 85.9 MCH 27.8 MCHC 32.3 RDW Std Deviation 48.8 H RDW Coeff of Braeden 15.6 H Plt Count 315 MPV 10.0 Immature Gran % (Auto) 0.4 Neut % (Auto) 59.0 Lymph % (Auto) 25.8 Mcmullen % (Auto) 10.1 Eos % (Auto) 3.9 Baso % (Auto) 0.8 Immature Gran # (Auto) 0.03 H Neut # (Auto) 4.27 Lymph # (Auto) 1.87 Mcmullen # (Auto) 0.73 H Eos # (Auto) 0.28 Baso # (Auto) 0.06 Toxic Granulation 1+ Sodium 143 Potassium 4.6 Chloride 114 H Carbon Dioxide 21 Anion Gap 8.0 BUN 101 H Creatinine 2.17 H Est Cr Clr Drug Dosing 35.5 Est GFR ( Amer) 27.4 Est GFR (Non-Af Amer) 23.6 BUN/Creatinine Ratio 46.3 H Glucose 165 H POC Glucose Lactate Calcium 10.2 H Phosphorus 3.7 Total Protein (PEP) 5.7 L Albumin 2.1 L Albumin (PEP) 2.5 L Okhfv-8-Cmjgxegqm 0.4 H Xvrnp-4-Cteuarohk 1.0 H Bono-8-Qtmaizln 0.4 Eemk-2-Nfqnxyui 0.4 Gamma Globulins 1.0 Monoclonal Peak 3 DNR Ser Monoclonl Protein DNR Ser Monoclonal Prot 2 DNR PEP Interpretation SEE NOTE Free [place] LC, Quant 97.6 H Free Lambda LC, Quant 52.3 H Free [place]/Lambda Ratio 1.87 H 07/12/18 07/12/18 07/12/18 07:34 09:12 11:12 WBC RBC Hgb Hct MCV MCH MCHC RDW Std Deviation RDW Coeff of [place] Plt Count MPV Immature Gran % (Auto) Neut % (Auto) Lymph % (Auto) Mcmullen % (Auto) Eos % (Auto) Baso % (Auto) Immature Gran # (Auto) Neut # (Auto) Lymph # (Auto) Mcmullen # (Auto) Eos # (Auto) Baso # (Auto) Toxic Granulation Sodium Potassium Chloride Carbon Dioxide Anion Gap BUN Creatinine Est Cr Clr Drug Dosing Est GFR ( Amer) Est GFR (Non-Af Amer) BUN/Creatinine Ratio Glucose POC Glucose 192 H 190 H Lactate 0.9 Calcium Phosphorus Total Protein (PEP) Albumin Albumin (PEP) Dqyfk-8-Cckahbunh Egsqy-9-Lwodyuujn Fvxl-7-Juhcbobp Weal-0-Glbivomm Gamma Globulins Monoclonal Peak 3 Ser Monoclonl Protein Ser Monoclonal Prot 2 PEP Interpretation Free [place] LC, Quant Free Lambda LC, Quant Free [place]/Lambda Ratio 07/12/18 07/12/18 16:44 20:26 WBC RBC Hgb Hct MCV MCH MCHC RDW Std Deviation RDW Coeff of Braeden Plt Count MPV Immature Gran % (Auto) Neut % (Auto) Lymph % (Auto) [place] % (Auto) Eos % (Auto) Baso % (Auto) Immature Gran # (Auto) Neut # (Auto) Lymph # (Auto) [place]mullen # (Auto) Eos # (Auto) Baso # (Auto) Toxic Granulation Sodium Potassium Chloride Carbon Dioxide Anion Gap BUN Creatinine Est Cr Clr Drug Dosing Est GFR ( Amer) Est GFR (Non-Af Amer) BUN/Creatinine Ratio Glucose POC Glucose 192 H 164 H Lactate Calcium Phosphorus Total Protein (PEP) Albumin Albumin (PEP) Zvrrk-9-Qziqcbdno Gffgp-6-Khuwbmedm Xdku-3-Fvgtfmmc Mzvc-8-Ffzvgmkr Gamma Globulins Monoclonal Peak 3 Ser Monoclonl Protein Ser Monoclonal Prot 2 PEP Interpretation Free [place] LC, Quant Free Lambda LC, Quant Free [place]/Lambda Ratio (1) Diabetes Diabetes mellitus complication status: without complication Diabetes mellitus fpc insulin use: with fpc use Diabetes mellitus type: type 2 Qualified Code(s): E11.9 - Type 2 diabetes mellitus without complications; Z79.4 - penitentiary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 (7) Dysphagia Dysphagia type: unspecified Qualified Code(s): R13.10 - Dysphagia, unspecified
[2018-07-13] MEDS: ALBUT/IPRATROP 3MG/0.5MG NEB 3 ML VIAL NEB SCH ×6 (05:27→23:15)
[2018-07-13] MEDS: HEPARIN SOD 5,000 UNIT/0.5 ML VIAL SQ SCH ×3 (06:35→21:12)
[2018-07-13] MEDS: HydrALAZINE TAB 50 MG TAB PO SCH ×3 (06:35→21:12)
[2018-07-13 07:26] LABS: Hematocrit (blood only) 22.9 % (37-47); Hemoglobin 7.3 g/dL (12.0-16.0)
[2018-07-13 07:48] LABS: Albumin Level 2.2 gm/dl (3.4-5.0); BUN Creatinine Ratio 46.8 (10-20); Calcium 10.2 mg/dl (8.5-10.1); Est GFR (African American) 27.9; Phosphorus 3.8 mg/dl (2.5-4.9); Potassium 4.1 mmol/L (3.5-5.1)
[2018-07-13] MEDS: INSULIN ASPART 100 UNITS/ML 3 ML PEN SC SCH ×4 (07:52→20:34)
[2018-07-13] MEDS: INSULIN GLARGINE SOLOSTAR 100 UNITS/ML 3 ML PEN SC SCH ×2 (07:53→20:32)
[2018-07-13] MEDS: CARVEDILOL 25 MG TAB PO SCH ×2 (07:54→20:31)
[2018-07-13] MEDS: PANTOprazole 40 MG TAB PO SCH ×2 (07:55→20:31)
[2018-07-13] MEDS: AMLODIPINE BESYLATE 5 MG TAB PO SCH (07:55)
[2018-07-13] MEDS: ATORVASTATIN 40 MG TAB PO SCH (07:55)
[2018-07-13] MEDS: SODIUM BICARBONATE 8.4% 150 MEQ in DEXTROSE 5% 1,000 ML IV SCH (08:36)
[2018-07-13] MEDS ORDERED: FUROSEMIDE 40 MG/4 ML VIAL IV STA (09:27)
--- NOTE | 2018-07-13 09:31 | Nephrology Progress Note ---
Date of Service July 13, 2018 Assessment & Plan (1) Acute kidney injury: 60-year-old female with acute kidney injury in the setting respiratory failure secondary to pneumonia and ARDS requiring intubation. Currently extubated on room air. Developed acute kidney injury secondary to ATN due to sepsis, iodinated contrast administration (CTA), and JEANETTE inhibitor use. Creatinine has been slowly improving and staying stable around 2.2-2.4 however BUN has been rising, above 100 today. She also has hypernatremia and hypercalcemia. She reports known history of hyperparathyroidism for several years and her PTH has been 250-300. Previously she was recommended to have a parathyroidectomy however she refused that. Blood pressure improved. Renal function remained stable without significant improvement. Calcium remained elevated however slightly improved. Hypercalcemia seems to be multifactorial including primary hyperparathyroidism, increase bone resorption with immobility with acute illness, volume depletion and others. Hypernatremia resolved. Found to have gap metabolic acidosis, could be related to TANYA, ? D lactic acidosis. Metabolic acidosis better. -- DC IV fluid --lasix 40 mg IV x 1 dose stat -- continue current antihypertensive medications -- if calcium worsened further, will consider 1 dose of bisphosphonate however would hold off for now Will follow (2) CKD (chronic kidney disease), stage III: -- Baseline creatinine ~1.3 mg/dL. -- Baseline A4 proteinuria, 2.8 g/g random sample in November. -- CKD can be attributed to diabetic nephropathy and or possible FSGS. (3) Multifocal pneumonia: -- Clinically improving. Patient has completed antibiotic therapy (4) Anemia: -- Recommend transfusion to maintain Hgb > or = 8.0 (5) Hyperparathyroidism: (6) Metabolic acidosis: Giovanni Mathis was seen & examined in her hospital room this morning. She is awake, alert. Has been having SOb and could not sleep last night. Appetite remain poor. Renal function stable. BP fair. Physical Exam Vital Signs (Past 24 Hours): Last Vital Signs Temp 36.6 C 07/13/18 07:50 Pulse 77 07/13/18 07:50 Resp 18 07/13/18 07:50 BP 146/61 H 07/13/18 07:50 Pulse Ox 92 07/13/18 07:50 Constitutional: WD/WN, vitals as above Respiratory: + respiratory distress and + cough Auscultation: + diminished lung sounds, + rales and + wheezes Cardiovascular: RRR, no murmur, no edema Neurologic: moves all extremities and awake Psychiatric: A+Ox3, euthymic affect (1) Anemia Anemia type: unspecified type Qualified Code(s): D64.9 - Anemia, unspecified
--- NOTE | 2018-07-13 10:21 | Pharmacy Report ---
Pharmacy Glycemic Short Note 2 - Date of Service July 13, 2018 - Glycemic Short BSG Results (Last 24 hours): 07/12/18 07/12/18 07/12/18 11:12 16:44 20:26 Glucose POC Glucose 190 H 192 H 164 H 07/13/18 07/13/18 06:56 07:05 Glucose 145 H POC Glucose 169 H OUTPATIENT ANTIDIABETIC REGIMEN: * Per conversation with patient, she was using Novolog with V-Go pump, but was recently transitioned back to Lantus/Novolog. She is unsure of her dosing and was having difficulty staying awake for conversation. * HbA1c: 8.1% (04/26/18) The patient is currently receiving: * Basal insulin: Over the last 24 hrs: Lantus 24 units in AM, 4 units w/ lunch + 24 units at HS * Correctional Insulin: Novolog Correction per scale ACHS Goal Range: Low 110 mg/dL - High 140 mg/dL Correction Factor: 10 mg/dL/unit * Prandial insulin: Per carb ratio of 1 unit per 3 grams CHO consumed ASSESSMENT: 07/13/18: * Patient's BSGs have been above goal for the past 24 hours. * Novolog parameters were tightened slightly this morning to provide additional correction/prandial coverage. * Patient remains on IVF with dextrose and sodium bicarb. * Patient's PO intake was very little yesterday, but it looks like she tolerated breakfast pretty well this morning. 07/12/09 * Ms. Reyna received 70 units of insulin yesterday (28 of this was basal) * Several changes in terms of insulin resistance/sensitivity have changed in the last 24 hours: * D5 @ 100 cc/hr has been changed to D5 + bicarb @ 100 cc/hr per nephro * Tube feeds stopped last night and po diet has been initiated * I'm anticipating insulin requirements to remain about the same while on the dextrose IVFs; however, do not want to be overly aggressive should these fluids be stopped. Will continue the same Lantus dose but change parameters to give the higher dose if BSG elevated. Current Novolog parameters are fairly aggressive so will loosen slightly now that continuous tube feeds are no longer on board. PLAN FOR INPATIENT GLYCEMIC CONTROL: * Lantus SQ BID - * 10 units if BSG < 140 * 18 units if BSG 140 or above * Novolog SQ ACHS - tighten CF/CR slightly * correction factor 8 mg/dl/unit * carb ratio 1 unit per 4 grams CHO consumed * tighten goal range to Low 110 mg/dL - High 140 mg/dL Discharge Recommendations: * Patient states that she is now using Lantus and Novolog as an outpatient. She was unsure of dosing. * Consider discussing with patient again when she is more alert.
[2018-07-13] MEDS: CLOPIDOGREL BISULFATE 75 MG TAB PO SCH (11:14)
--- NOTE | 2018-07-13 13:29 | ENT Consultation ---
Date of Consultation July 13, 2018 Assessment & Plan (1) Laryngeal edema determined by laryngoscopy: partial left vocal cord paralysis and edema from intubation, will need time to heal, continue thickened diet (2) Vocal cord paralysis syndrome: History of Present Illness Reason for Consultation: dysphagia Attending Physician: Chris Mcgraw History of Present Illness 62 yo s/p intubation for resp. failure, nable to eat, coughing, hoarseness Allergies Allergy/AdvReac Type Severity Reaction Status Date / Time [facility] Allergy Hives Unverified 06/30/18 13:27 erythromycin base AdvReac Intermediate VOMITTING Unverified 06/30/18 13:27 Home Medications Home Medications Medication Instructions Recorded Confirmed Type amoxicillin 500 mg PO QID 06/30/18 06/30/18 History atorvastatin 80 mg PO DAILY 06/30/18 06/30/18 History carvedilol [Coreg] 25 mg PO BID 06/30/18 06/30/18 History clobetasol 1 applic TOPICAL DIRECTED PRN 06/30/18 06/30/18 History clopidogrel [Plavix] 75 mg PO DAILY 06/30/18 06/30/18 History fluticasone propionate [Flonase 2 spray INTRANASAL QAM 06/30/18 06/30/18 History Allergy Relief] lisinopril 20 mg PO DAILY 06/30/18 06/30/18 History lisinopril-hydrochlorothiazide 1 tab PO DAILY 06/30/18 06/30/18 History spironolactone 25 mg PO DAILY 06/30/18 06/30/18 History Patient History Medical History CHF (congestive heart failure) Diabetes Hypertension Surgical History S/P cardiac catheterization Family History Other Coronary heart disease Social History Communication Ability: Impaired Beliefs That Will Affect Care: None Current Living Situation: Spouse Other Information That Helps Us Care for You: No Feels Safe at Home: Yes Safety Concerns: Feels Safe At This Time Smoking Status: Never smoker Hx Alcohol Use: Yes Hx Substance Use: No Physical Exam Vital Signs (Past 24 Hours): Last Vital Signs Temp 37.1 C 07/13/18 11:51 Pulse 69 07/13/18 11:51 Resp 18 07/13/18 11:51 BP 125/69 07/13/18 11:51 Pulse Ox 94 07/13/18 11:51 Eyes: PERRL, conjunctivae normal, anicteric sclerae ENMT: Nose: + septum abnormality (ulceration right side) and + epistaxis (right side dry blood) TNE, epiglottis normal, edema of vocal cords and arytenoid, weakness left vocal cord, partially mobile Neck: trachea midline, no thyromegaly
[2018-07-13] MEDS: CARBOHYDRATES FOR HYPOGLYCEMIA PO PRN ×2 (16:15→16:30)
[2018-07-13] MEDS: FLUCONAZOLE 100 MG TAB PO SCH (17:28)
[2018-07-13] MEDS: POLYETHYLENE (MIRALAX) 17 GM PACK PO SCH (20:31)
[2018-07-13] MEDS: methylPREDNISolone 40 MG in SYRINGE 0 ML IV SCH (20:31)
[2018-07-13] MEDS: GUAIFENESIN/CODEINE 100MG/10MG 5ML UDC PO SCH (20:35)
[2018-07-13] MEDS: SENNA 8.6 MG TAB PO SCH (21:11)
--- NOTE | 2018-07-13 21:29 | Hospitalist Progress Note ---
Date of Service July 13, 2018 Assessment & Plan (1) Acute respiratory failure with hypoxia: Resolving. Off O2, but still with severe wheezing and cough. 2nd to b/l community-acquired pneumonia and then subsequent development of ARDS (suspected). Patient worsened after admission and transitioned to BiPAP on 07/01. Intubated later on 07/01 after failing BIPAP. Underwent bronch by Dr. Carcamo in the ICU with negative cultures. Extubated from the vent on 07/07/18. Now in room air. Adding steroids for bronchitis portion of the illness. Start solumedrol 40mg IV q12h. Consider repeat imaging tomorrow. (2) Multifocal pneumonia: bilateral. see discussion above in acute hypoxic respiratory failure. clinically resolving. she is off antibiotics. severe bronchitis at this time - viral? (3) Lethargy: Resolved. Occurred while in ICU. Etiology was uncertain. PRES? HTN encephalopathy? Either way it is resolved. CT head negative earlier this stay. (4) Hypercalcemia: 2nd to hyperparathyroidism. Defer management to nephrology. BMP am. (5) Hyperparathyroidism: primary, known history of such. (6) Hypertension: Continue coreg along with amlodipine and hydralazine. Renal artery dopplers negative. overall control has been much better last few days. (7) Acute kidney injury: Likely sepsis-associated ATN. JEANETTE inhibitor use and IV contrast may have contributed as well. Creatinine continues to gradually improve each day. BMP am. Appreciate nephrology assistance. (8) Severe sepsis: resolved. (9) Non-ischemic cardiomyopathy: history of such - now resolved. (10) CHF (congestive heart failure): appears compensated on exam once again. (11) Elevated troponin: earlier this stay. Likely due to myocardial demand ischemia. (12) Diabetes: sugars likely to rise with steroids. pharmacy managing. (13) Hyperlipidemia: statin (14) CKD (chronic kidney disease), stage III: baseline Cr about 1.3. now with ATN. creatinine each day improving. (15) Proteinuria: 24 hour urine protein with 1 gram. Proteinuria likely contributing to hypoalbuminemia. Appreciate nephrology assistance. awaiting work-up for MM, etc (16) History of CVA (cerebrovascular accident): History of left basal ganglia CVA in September 2016. Plavix had been on hold - perhaps due to low platelets; perhaps due to concern of GI bleed. Fecal occult neg; platelets normal -- thus, resume plavix. CT head this admission negative for acute stroke. (17) Anemia: Fecal occult, iron studies, b12, folate -- all negative/normal. Hb 7.3 today. Consider 2 units PRBCs in light of severe fatigue and dyspnea. (18) Thrombocytopenia: Likely due to severe sepsis. resolved. (19) Morbid obesity with BMI of 40.0-44.9, adult: BMI 40 (20) Hypoalbuminemia: severe. cont protein supplements, etc. (21) Dysphagia: appreciate speech assistance. on modified diet. Dr. Azul performed laryngoscopy today. consider swelling of arytenoids and vocal cords with partial paralysis of one vocal cord. suspected to be from trauma from intubation, prolonged intubation, etc. time. (22) Oral candidiasis: cont diflucan day 6 of 7 of Rx (23) Metabolic acidosis: resolved stop fluids w/ bicarb (24) DVT prophylaxis: Heparin 5,000 units q8hr. add constipation meds add robitussin ac at HS to help with cough thereby promoting rest needs rehab 1 more day on tele and if stable then med/surg Subjective pt continues to feel very weak appetite fair at best has had troubles w/ low blood sugars today continues with severe, harsh cough she cannot sleep because of the cough and requests sleep aid she is aware she will need rehab post-discharge tele stable overnight constipated - no BM in 3-4 days Constitutional: + fatigue and + anorexia; no fever Respiratory: + cough and + dyspnea; no hemoptysis Cardiovascular: no chest pain Gastrointestinal: + nausea (occasional); no abdominal pain Physical Exam Vital Signs (Past 24 Hours): Last Vital Signs Temp 36.3 C L 07/13/18 19:17 Pulse 78 07/13/18 19:58 Resp 18 07/13/18 19:58 BP 129/71 07/13/18 19:17 Pulse Ox 95 07/13/18 19:58 Constitutional: + ill appearing and + morbidly obese; no acute distress ENMT: external ear and nose normal, oropharynx normal Mouth: + muffled voice (hoarse) Respiratory: normal respiratory effort; no respiratory distress Auscultation: + rhonchi and + wheezes Cardiovascular: Rate/Rhythm: regular rate and regular rhythm Heart Sounds: normal S1 and normal S2; no murmur Vessels: posterior tibial pulses present and dorsalis pedis pulses present; no JVD Extremities: + edema (<1+ b/l); no pedal edema Gastrointestinal (Abdomen): normal bowel sounds, soft, nontender, no hepatosplenomegaly Skin: left subclavian line clean; pallor Psychiatric: A+Ox3, euthymic affect Results & Data Laboratory Results Laboratory Results - last 24 hr 07/13/18 07/13/18 07/13/18 06:56 07:05 07:05 Hgb 7.3 L Hct 22.9 L Sodium 141 Potassium 4.1 Chloride 109 H Carbon Dioxide 26 Anion Gap 6.0 BUN 100 H Creatinine 2.14 H Est Cr Clr Drug Dosing 36.0 Est GFR ( Amer) 27.9 Est GFR (Non-Af Amer) 24.0 BUN/Creatinine Ratio 46.8 H Glucose 145 H POC Glucose 169 H Calcium 10.2 H Phosphorus 3.8 Albumin 2.2 L 07/13/18 07/13/18 07/13/18 10:47 16:10 16:12 Hgb Hct Sodium Potassium Chloride Carbon Dioxide Anion Gap BUN Creatinine Est Cr Clr Drug Dosing Est GFR ( Amer) Est GFR (Non-Af Amer) BUN/Creatinine Ratio Glucose POC Glucose 156 H 61 L* 62 L* Calcium Phosphorus Albumin 07/13/18 07/13/18 07/13/18 16:30 16:47 20:10 Hgb Hct Sodium Potassium Chloride Carbon Dioxide Anion Gap BUN Creatinine Est Cr Clr Drug Dosing Est GFR ( Amer) Est GFR (Non-Af Amer) BUN/Creatinine Ratio Glucose POC Glucose 64 L* 76 152 H Calcium Phosphorus Albumin (1) Diabetes Diabetes mellitus complication status: without complication Diabetes mellitus long-term insulin use: with professor of business administration use Diabetes mellitus type: type 2 Qualified Code(s): E11.9 - Type 2 diabetes mellitus without complications; Z79.4 - roving court reporter (current) use of insulin (2) CHF (congestive heart failure) Heart failure chronicity: chronic Heart failure type: systolic Qualified Code(s): I50.22 - Chronic systolic (congestive) heart failure (3) Anemia Anemia type: unspecified type Qualified Code(s): D64.9 - Anemia, unspecified (4) Dysphagia Dysphagia type: unspecified Qualified Code(s): R13.10 - Dysphagia, unspecified (5) Hyperlipidemia Hyperlipidemia type: mixed hyperlipidemia Qualified Code(s): E78.2 - Mixed hyperlipidemia (6) Proteinuria Proteinuria type: other Qualified Code(s): R80.8 - Other proteinuria (7) Hypertension Hypertension type: essential hypertension Qualified Code(s): I10 - Essential (primary) hypertension
[2018-07-14] MEDS: INSULIN ASPART 100 UNITS/ML 3 ML PEN SC SCH ×6 (00:42→21:12)
[2018-07-14] MEDS: HEPARIN SOD 5,000 UNIT/0.5 ML VIAL SQ SCH ×3 (05:19→21:02)
[2018-07-14] MEDS: HydrALAZINE TAB 50 MG TAB PO SCH ×3 (05:20→21:04)
[2018-07-14 06:25] LABS: Creatinine Ur 49 MG/DL (20-275); Protein, Urine 24 Hour 1061 MG/24HRS. (0-149); Total Protein, Urine 52 MG/DL; Urine Protein/Creatinine Ratio 1061 (<OR=115)
[2018-07-14 06:38] LABS: Hematocrit (blood only) 25.1 % (37-47); Hemoglobin 7.9 g/dL (12.0-16.0); Mean Corpuscular Hgb Conc 31.5 g/dL (32-36); Mean Corpuscular Volume 85.7 fL (80-100); Mean Platelet Volume 10.1 fL (7.4-10.4); Platelet Count 348 K/uL (130-400); RDW Coefficient of Variation 15.5 % (11.5-14.5); Red Blood Count 2.93 M/uL (4.2-5.4); White Blood Count 4.83 K/uL (4.8-10.8)
[2018-07-14] MEDS: ALBUT/IPRATROP 3MG/0.5MG NEB 3 ML VIAL NEB SCH ×4 (07:02→19:49)
[2018-07-14 07:17] LABS: Albumin Level 2.2 gm/dl (3.4-5.0); BUN Creatinine Ratio 39.5 (10-20); Calcium 10.3 mg/dl (8.5-10.1); Creatinine Clr Calc Pharmacy 32.8 ml/min; Est GFR (African American) 25.1; Est GFR (Non-African American) 21.7; Phosphorus 3.8 mg/dl (2.5-4.9); Potassium 4.5 mmol/L (3.5-5.1)
[2018-07-14] MEDS: INSULIN GLARGINE SOLOSTAR 100 UNITS/ML 3 ML PEN SC SCH ×2 (08:00→21:07)
[2018-07-14] MEDS: ATORVASTATIN 40 MG TAB PO SCH (08:01)
[2018-07-14] MEDS: CLOPIDOGREL BISULFATE 75 MG TAB PO SCH (08:01)
[2018-07-14] MEDS: POLYETHYLENE (MIRALAX) 17 GM PACK PO SCH (08:01)
[2018-07-14] MEDS: PANTOprazole 40 MG TAB PO SCH ×2 (08:01→21:03)
[2018-07-14] MEDS: AMLODIPINE BESYLATE 5 MG TAB PO SCH (08:01)
[2018-07-14] MEDS: CARVEDILOL 25 MG TAB PO SCH ×2 (08:02→21:02)
[2018-07-14] MEDS: methylPREDNISolone 40 MG in SYRINGE 0 ML IV SCH ×2 (08:02→21:01)
[2018-07-14] MEDS: SENNA 8.6 MG TAB PO SCH (08:02)
[2018-07-14] MEDS: ACETAMINOPHEN 500 MG TAB PO PRN ×2 (09:21→15:38)
--- NOTE | 2018-07-14 09:55 | Nephrology Progress Note ---
Date of Service July 14, 2018 Assessment & Plan (1) Acute kidney injury: 60-year-old female with acute kidney injury in the setting respiratory failure secondary to pneumonia and ARDS requiring intubation. Currently extubated on room air. Developed acute kidney injury secondary to ATN due to sepsis, iodinated contrast administration (CTA), and JEANETTE inhibitor use. Creatinine has been slowly improving and staying stable around 2.2-2.4 however BUN has been rising, above 100 today. She also has hypernatremia and hypercalcemia. She reports known history of hyperparathyroidism for several years and her PTH has been 250-300. Previously she was recommended to have a parathyroidectomy however she refused that. Blood pressure improved. Renal function remained stable without significant improvement. Calcium remained elevated however slightly improved. Hypercalcemia seems to be multifactorial including primary hyperparathyroidism, increase bone resorption with immobility with acute illness, volume depletion and others. Hypernatremia resolved. Metabolic acidosis better. -- respiratory status improved, no need for diuretics at this point however if needed can be used as needed Lasix 40 IV -- continue current antihypertensive medications -- if calcium worsened further, will consider 1 dose of bisphosphonate however would hold off for now --monitor for renal recovery Will follow (2) CKD (chronic kidney disease), stage III: -- Baseline creatinine ~1.3 mg/dL. -- Baseline A4 proteinuria, 2.8 g/g random sample in November. -- CKD can be attributed to diabetic nephropathy and or possible FSGS. (3) Multifocal pneumonia: -- Clinically improving. Patient has completed antibiotic therapy (4) Anemia: -- Recommend transfusion to maintain Hgb > or = 8.0 (5) Hyperparathyroidism: (6) Metabolic acidosis: Giovanni Mathis was seen & examined in her hospital room this morning. She is awake, alert. Shortness of breath improved, overall feeling better, trying to participate with physical therapy. Renal function stable. BP fair. Physical Exam Vital Signs (Past 24 Hours): Last Vital Signs Temp 36.8 C 07/14/18 07:35 Pulse 79 07/14/18 07:35 Resp 22 07/14/18 07:35 BP 146/75 H 07/14/18 07:35 Pulse Ox 93 07/14/18 07:35 Constitutional: WD/WN, vitals as above Respiratory: normal respiratory effort, lungs clear to auscultation Cardiovascular: RRR, no murmur, no edema Neurologic: moves all extremities and awake Psychiatric: A+Ox3, euthymic affect (1) Anemia Anemia type: unspecified type Qualified Code(s): D64.9 - Anemia, unspecified
[2018-07-14] MEDS: FERROUS SULFATE 325 MG TAB PO SCH ×2 (11:54→21:03)
--- NOTE | 2018-07-14 14:42 | Pharmacy Report ---
Pharmacy Glycemic Short Note 2 - Date of Service July 14, 2018 - Glycemic Short BSG Results (Last 24 hours): 07/13/18 07/13/18 07/13/18 16:10 16:12 16:30 Glucose POC Glucose 61 L* 62 L* 64 L* 07/13/18 07/13/18 07/14/18 16:47 20:10 00:09 Glucose POC Glucose 76 152 H 175 H 07/14/18 07/14/18 07/14/18 04:07 06:22 07:06 Glucose 199 H POC Glucose 204 H 210 H 07/14/18 11:06 Glucose POC Glucose 185 H OUTPATIENT ANTIDIABETIC REGIMEN: * Per conversation with patient, she was using Novolog with V-Go pump, but was recently transitioned back to Lantus/Novolog. She is unsure of her dosing and was having difficulty staying awake for conversation. * HbA1c: 8.1% (04/26/18) ASSESSMENT: 07/14/18: * Changes since yesterday: * After tightening Novolog parameters yesterday morning, patient was slightly hypoglycemic pre-dinner (BSG 61) * IVF containing dextrose were discontinued after breakfast yesterday. * Last evening, patient was started on SoluMedrol 40mg IV q12h, which is expected to contribute to significant steroid-induced hyperglycemia. * Fasting BSG was elevated this morning (BSG 210) with reasonable pre-lunch BSG (185). * At this time, no change to Novolog parameters and slight increase in Lantus dose beginning this evening. * Will add 0000 and 0400 accu-checks tonight to provide additional coverage if patients BSGs begin to rise. 07/13/18 * Patient's BSGs have been above goal for the past 24 hours. * Novolog parameters were tightened slightly this morning to provide additional correction/prandial coverage. * Patient remains on IVF with dextrose and sodium bicarb. * Patient's PO intake was very little yesterday, but it looks like she tolerated breakfast pretty well this morning 07/12/09 * Ms. Reyna received 70 units of insulin yesterday (28 of this was basal) * Several changes in terms of insulin resistance/sensitivity have changed in the last 24 hours: * D5 @ 100 cc/hr has been changed to D5 + bicarb @ 100 cc/hr per nephro * Tube feeds stopped last night and po diet has been initiated * I'm anticipating insulin requirements to remain about the same while on the dextrose IVFs; however, do not want to be overly aggressive should these fluids be stopped. Will continue the same Lantus dose but change parameters to give the higher dose if BSG elevated. Current Novolog parameters are fairly aggressive so will loosen slightly now that continuous tube feeds are no longer on board. PLAN FOR INPATIENT GLYCEMIC CONTROL: * Lantus SQ BID - increase * 15 units if BSG < 140 * 22 units if BSG 140 or above * Novolog SQ ACHS plus 0000 and 0400 - * correction factor 10 mg/dl/unit * carb ratio 1 unit per 5 grams CHO consumed * tighten goal range to Low 110 mg/dL - High 140 mg/dL Discharge Recommendations: * HbA1c (8.1%) indicates slightly sub-optimal glycemic control for a 62yo. * Expect that patient's regimen requires adjustment. Recommend prompt f/u with PCP after discharge. * Patient states that she is now using Lantus and Novolog as an outpatient. She was unsure of dosing. * Consider discussing with patient again when she is more alert.
--- NOTE | 2018-07-14 15:18 | Gastroenterology Progress Note ---
Date of Service July 14, 2018 Assessment & Plan (1) Anemia: No evidence of active GI bleeding with heme negative stool. Risk of procedures outweigh benefit at this time with recent pneumonia and vocal cord paralysis. Recommend f/u as outpt to consider endoscopy when fully recovered. Discussed with Dr Mcgraw to call us back if condition in hospital changes. In the meantime, will sign off. Subjective CC f/u anemia HPI Youngest daughter with patient for h and p. Pt denies abd pain. She denies black or bloody stools. Respiratory: no dyspnea Cardiovascular: no chest pain Physical Exam Vital Signs (Past 24 Hours): Last Vital Signs Temp 36.5 C 07/14/18 10:56 Pulse 84 07/14/18 11:10 Resp 16 07/14/18 11:10 BP 131/70 07/14/18 10:56 Pulse Ox 97 07/14/18 11:10 Constitutional: WD/WN, vitals as above Respiratory: normal respiratory effort, lungs clear to auscultation Cardiovascular: RRR, no murmur, no edema Gastrointestinal (Abdomen): normal bowel sounds, soft, nontender, no hepatosplenomegaly (1) Anemia Anemia type: unspecified type Qualified Code(s): D64.9 - Anemia, unspecified
--- NOTE | 2018-07-14 15:32 | Surgery Progress Note ---
Date of Service July 14, 2018 Assessment & Plan (1) Vocal cord paralysis syndrome: observe, should improve Subjective still hoarse, able to swallow better Physical Exam Vital Signs (Past 24 Hours): Last Vital Signs Temp 36.5 C 07/14/18 10:56 Pulse 84 07/14/18 11:10 Resp 16 07/14/18 11:10 BP 131/70 07/14/18 10:56 Pulse Ox 97 07/14/18 11:10 ENMT: voice still weak, hoarse, did not re scope
[2018-07-14] MEDS: FLUCONAZOLE 100 MG TAB PO SCH (17:46)
--- NOTE | 2018-07-14 19:45 | XRay Report ---
TWO VIEW CHEST CLINICAL HISTORY: Wheezing. Respiratory failure.. FINDINGS: AP and lateral chest radiographs are compared to study dated 07/10/2018 and correlated with c hest CT dated 07/01/2018. The AP view is degraded by patient rotation. A left subclavian central venou s infusion port is unchanged in position. An enteric tube has been removed from previous. The heart i s enlarged and there is atherosclerotic calcification of the thoracic aorta. There is mild pulmonary vascular congestion. Bibasilar atelectasis is noted. Mild residual consolidative change is seen at th e left lung base. No large pleural effusion or pneumothorax is identified. The skeletal structures ar e osteopenic. Degenerative change and hyperkyphosis are noted in the thoracic spine. The bony thorax appears intact. IMPRESSION: 1. Cardiomegaly with mild pulmonary vascular congestion. 2. Mild residual consolidative change is seen at the left lung base. 3. No large pleural effusion is identified. Electronically signed by: Donovan Marinelli M.D. 07/14/2018 7:44 PM
--- NOTE | 2018-07-14 19:54 | Hospitalist Progress Note ---
Date of Service July 14, 2018 Assessment & Plan (1) Acute respiratory failure with hypoxia: Resolving. Off O2, but still with severe wheezing and cough. 2nd to b/l community-acquired pneumonia and then subsequent development of ARDS (suspected). Now with what seems like severe bronchitis. Patient worsened after admission and transitioned to BiPAP on 07/01. Intubated later on 07/01 after failing BIPAP. Underwent bronch by Dr. Carcamo in the ICU with negative cultures. Extubated from the vent on 07/07/18. Continue solumedrol 40mg IV q12h. Will repeat cxr today to exclude any pulm edema, etc. (2) Multifocal pneumonia: bilateral. see discussion above in acute hypoxic respiratory failure. resolved. (3) Lethargy: Resolved. (4) Hypercalcemia: 2nd to hyperparathyroidism. Defer management to nephrology. BMP am. stable corrected level in range of 11-12. (5) Hyperparathyroidism: primary, known history of such. (6) Hypertension: Continue coreg along with amlodipine and hydralazine. Renal artery dopplers negative. overall control has been much better last few days. adjust meds if needed. (7) Acute kidney injury: Likely sepsis-associated ATN. JEANETTE inhibitor use and IV contrast may have contributed as well. Creatinine recovery seems to have stalled in low 2's. Appreciate nephrology assistance. Defer management to nephrology. (8) Severe sepsis: resolved. (9) Non-ischemic cardiomyopathy: history of such - now resolved. (10) CHF (congestive heart failure): appears compensated on exam once again. (11) Elevated troponin: earlier this stay. Likely due to myocardial demand ischemia. (12) Diabetes: appreciate pharmacy assistance/management. sugars a bit higher w/ steroids; will need insulin adjustment. (13) Hyperlipidemia: statin (14) CKD (chronic kidney disease), stage III: baseline Cr about 1.3. now with ATN. creatinine each day improving. (15) Proteinuria: 24 hour urine protein with 1 gram. Proteinuria likely contributing to hypoalbuminemia. Appreciate nephrology assistance. no significant M spike on recent SPEP. (16) History of CVA (cerebrovascular accident): History of left basal ganglia CVA in September 2016. Plavix had been on hold - perhaps due to low platelets; perhaps due to concern of GI bleed. Fecal occult neg; platelets normal -- thus, resume plavix. CT head this admission negative for acute stroke. (17) Anemia: Fecal occult, iron studies, b12, folate -- all negative/normal. Hb 7.9 today. Start ferrous sulfate 325mg BID. (18) Thrombocytopenia: Likely due to severe sepsis. resolved. (19) Morbid obesity with BMI of 40.0-44.9, adult: BMI 40 (20) Hypoalbuminemia: severe. cont protein supplements, etc. (21) Dysphagia: appreciate speech assistance. on modified diet. Dr. Azul performed laryngoscopy yesterday. considerable swelling of arytenoids and vocal cords with partial paralysis of one vocal cord. suspected to be from trauma from intubation, prolonged intubation, etc. will need time for recovery. spoke with speech today- video swallow planned for day of discharge. continue modified diet. (22) Oral candidiasis: cont diflucan day 7 of 7 of Rx (23) DVT prophylaxis: Heparin 5,000 units q8hr. needs rehab hopefully med/surg tomorrow daughter updated at bedside Subjective feels better slept more soundly with use of robittusin ac at HS (less cough led to better sleep) wheezing improved tele stable overnight daughter at bedside is motivated to go to [facility] for rehab no new complaints Constitutional: no fever Respiratory: + dyspnea on exertion Cardiovascular: no chest pain Gastrointestinal: no abdominal pain Physical Exam Vital Signs (Past 24 Hours): Last Vital Signs Temp 36.3 C L 07/14/18 15:32 Pulse 74 07/14/18 19:49 Resp 18 07/14/18 19:49 BP 136/64 07/14/18 15:32 Pulse Ox 98 07/14/18 19:49 Constitutional: + morbidly obese; no acute distress ENMT: external ear and nose normal, oropharynx normal Mouth: + muffled voice (hoarse) Respiratory: normal respiratory effort; no respiratory distress Auscultation: + rhonchi and + wheezes but improved lung sounds today Cardiovascular: Rate/Rhythm: regular rate and regular rhythm Heart Sounds: normal S1 and normal S2; no murmur Vessels: posterior tibial pulses present and dorsalis pedis pulses present; no JVD Extremities: no pedal edema Gastrointestinal (Abdomen): normal bowel sounds, soft, nontender, no hepatosplenomegaly Psychiatric: A+Ox3, euthymic affect Results & Data Laboratory Results Laboratory Results - last 24 hr 07/11/18 07/12/18 07/13/18 05:44 10:00 20:10 WBC RBC Hgb Hct MCV MCH MCHC RDW Std Deviation RDW Coeff of Braeden Plt Count MPV Sodium Potassium Chloride Carbon Dioxide Anion Gap BUN Creatinine Est Cr Clr Drug Dosing Est GFR ( Amer) Est GFR (Non-Af Amer) BUN/Creatinine Ratio Glucose POC Glucose 152 H Calcium Phosphorus Albumin Urine Total Volume 2040 Ur Creatinine mg/dL 49 Ur Total Protein Conc 52 Ur Total Protein 24 Hr 1061 H Protein/Creat Ratio 24h 1061 H Urine Albumin (%) 64.75 U Orjgu-2-Cavzqkdk (%) 1.32 U Dqshr-1-Nvdlldkq (%) 7.10 U Beta Globulin (%) 11.11 U Gamma Globulin (%) 15.73 Urine PEP Interpret SEE NOTE Crossmatch See Detail 07/14/18 07/14/18 07/14/18 00:09 04:07 06:22 WBC RBC Hgb Hct MCV MCH MCHC RDW Std Deviation RDW Coeff of Braeden Plt Count MPV Sodium 141 Potassium 4.5 Chloride 109 H Carbon Dioxide 27 Anion Gap 5.0 BUN 92 H Creatinine 2.33 H Est Cr Clr Drug Dosing 32.8 Est GFR ( Amer) 25.1 Est GFR (Non-Af Amer) 21.7 BUN/Creatinine Ratio 39.5 H Glucose 199 H POC Glucose 175 H 204 H Calcium 10.3 H Phosphorus 3.8 Albumin 2.2 L Urine Total Volume Ur Creatinine mg/dL Ur Total Protein Conc Ur Total Protein 24 Hr Protein/Creat Ratio 24h Urine Albumin (%) U Mqzvq-9-Fuahjeyp (%) U Cxchx-5-Pwkgjbmq (%) U Beta Globulin (%) U Gamma Globulin (%) Urine PEP Interpret Crossmatch 07/14/18 07/14/18 07/14/18 06:22 07:06 11:06 WBC 4.83 RBC 2.93 L Hgb 7.9 L Hct 25.1 L MCV 85.7 MCH 27.0 MCHC 31.5 L RDW Std Deviation 48.0 H RDW Coeff of Braeden 15.5 H Plt Count 348 MPV 10.1 Sodium Potassium Chloride Carbon Dioxide Anion Gap BUN Creatinine Est Cr Clr Drug Dosing Est GFR ( Amer) Est GFR (Non-Af Amer) BUN/Creatinine Ratio Glucose POC Glucose 210 H 185 H Calcium Phosphorus Albumin Urine Total Volume Ur Creatinine mg/dL Ur Total Protein Conc Ur Total Protein 24 Hr Protein/Creat Ratio 24h Urine Albumin (%) U Wrkme-2-Zngzlumi (%) U Vqhcl-2-Fkezzwyi (%) U Beta Globulin (%) U Gamma Globulin (%) Urine PEP Interpret Crossmatch 07/14/18 16:29 WBC RBC Hgb Hct MCV MCH MCHC RDW Std Deviation RDW Coeff of Braeden Plt Count MPV Sodium Potassium Chloride Carbon Dioxide Anion Gap BUN Creatinine Est Cr Clr Drug Dosing Est GFR ( Amer) Est GFR (Non-Af Amer) BUN/Creatinine Ratio Glucose POC Glucose 211 H Calcium Phosphorus Albumin Urine Total Volume Ur Creatinine mg/dL Ur Total Protein Conc Ur Total Protein 24 Hr Protein/Creat Ratio 24h Urine Albumin (%) U Qjdjw-8-Vtqsbueg (%) U Cjpzx-5-Pnttxuow (%) U Beta Globulin (%) U Gamma Globulin (%) Urine PEP Interpret Crossmatch (1) Diabetes Diabetes mellitus complication status: without complication Diabetes mellitus intermediate manager insulin use: with intermediate manager use Diabetes mellitus type: type 2 Qualified Code(s): E11.9 - Type 2 diabetes mellitus without complications; Z79.4 - oil heaterman (current) use of insulin (2) CHF (congestive heart failure) Heart failure chronicity: chronic Heart failure type: systolic Qualified Code(s): I50.22 - Chronic systolic (congestive) heart failure (3) Anemia Anemia type: unspecified type Qualified Code(s): D64.9 - Anemia, unspecified (4) Dysphagia Dysphagia type: unspecified Qualified Code(s): R13.10 - Dysphagia, unspecified (5) Hyperlipidemia Hyperlipidemia type: mixed hyperlipidemia Qualified Code(s): E78.2 - Mixed hyperlipidemia (6) Proteinuria Proteinuria type: other Qualified Code(s): R80.8 - Other proteinuria (7) Hypertension Hypertension type: essential hypertension Qualified Code(s): I10 - Essential (primary) hypertension
[2018-07-14] MEDS: GUAIFENESIN/CODEINE 100MG/10MG 5ML UDC PO SCH (21:17)
[2018-07-15] MEDS: INSULIN ASPART 100 UNITS/ML 3 ML PEN SC SCH ×6 (00:14→21:02)
[2018-07-15] MEDS: ACETAMINOPHEN 500 MG TAB PO PRN ×2 (01:06→21:07)
[2018-07-15] MEDS: ALBUT/IPRATROP 3MG/0.5MG NEB 3 ML VIAL NEB SCH ×5 (01:38→20:09)
[2018-07-15] MEDS ORDERED: COUGH DROP (SUGAR FREE) LOZ 24 LOZ/1 BOX BUCCAL ONE (02:01)
[2018-07-15] MEDS: HEPARIN SOD 5,000 UNIT/0.5 ML VIAL SQ SCH ×3 (05:52→21:51)
[2018-07-15] MEDS: HydrALAZINE TAB 50 MG TAB PO SCH ×3 (05:52→21:51)
[2018-07-15 06:40] LABS: Albumin Level 2.4 gm/dl (3.4-5.0); BUN Creatinine Ratio 37.6 (10-20); Creatinine Clr Calc Pharmacy 31.7 ml/min; Est GFR (African American) 23.9; Est GFR (Non-African American) 20.6; Phosphorus 3.8 mg/dl (2.5-4.9); Potassium 4.6 mmol/L (3.5-5.1)
[2018-07-15] MEDS: INSULIN GLARGINE SOLOSTAR 100 UNITS/ML 3 ML PEN SC SCH ×2 (07:49→21:03)
[2018-07-15] MEDS: CLOPIDOGREL BISULFATE 75 MG TAB PO SCH (07:51)
[2018-07-15] MEDS: ATORVASTATIN 40 MG TAB PO SCH (07:51)
[2018-07-15] MEDS: PANTOprazole 40 MG TAB PO SCH ×2 (07:51→21:02)
[2018-07-15] MEDS: AMLODIPINE BESYLATE 5 MG TAB PO SCH (07:51)
[2018-07-15] MEDS: FERROUS SULFATE 325 MG TAB PO SCH ×2 (07:52→21:05)
[2018-07-15] MEDS: SENNA 8.6 MG TAB PO SCH (07:52)
[2018-07-15] MEDS: CARVEDILOL 25 MG TAB PO SCH ×2 (07:52→21:05)
[2018-07-15] MEDS: POLYETHYLENE (MIRALAX) 17 GM PACK PO SCH (07:52)
[2018-07-15] MEDS: methylPREDNISolone 40 MG in SYRINGE 0 ML IV SCH (07:52)
--- NOTE | 2018-07-15 08:22 | Nephrology Progress Note ---
Date of Service July 15, 2018 Assessment & Plan (1) Acute kidney injury: 60-year-old female with acute kidney injury in the setting respiratory failure secondary to pneumonia and ARDS requiring intubation. Currently extubated on room air. Developed acute kidney injury secondary to ATN due to sepsis, iodinated contrast administration (CTA), and JEANETTE inhibitor use. Creatinine has been slowly improving and staying stable around 2.2-2.4 however BUN has been rising, above 100 today. She also has hypernatremia and hypercalcemia. She reports known history of hyperparathyroidism for several years and her PTH has been 250-300. Previously she was recommended to have a parathyroidectomy however she refused that. Blood pressure improved. Renal function remained stable without significant improvement. Calcium remained elevated however slightly improved. Hypercalcemia seems to be multifactorial including primary hyperparathyroidism, increase bone resorption with immobility with acute illness, volume depletion and others. Electrolytes remained stable with mild hypercalcemia however no significant improvement in renal function so far, creatinine staying around 2.2-2.4. -- encourage p.o. intake, try to keep intake and output even -- continue current antihypertensive medications -- if calcium worsened further, will consider 1 dose of bisphosphonate however would hold off for now --monitor for renal recovery Will follow (2) CKD (chronic kidney disease), stage III: -- Baseline creatinine ~1.3 mg/dL. -- Baseline A4 proteinuria, 2.8 g/g random sample in November. -- CKD can be attributed to diabetic nephropathy and or possible FSGS. (3) Multifocal pneumonia: -- Clinically improving. Patient has completed antibiotic therapy (4) Anemia: -- Recommend transfusion to maintain Hgb > or = 8.0 (5) Hyperparathyroidism: (6) Metabolic acidosis: Giovanni Mathis was seen & examined in her hospital room this morning. She is awake, alert. Shortness of breath improved, however continues to be bothered by cough was not able to sleep last night due to Renal function stable, electrolyte acceptable. Decent urine 1 3 L, negative around 5oo ml. BP fair. Physical Exam Vital Signs (Past 24 Hours): Last Vital Signs Temp 36.8 C 07/15/18 07:38 Pulse 70 07/15/18 07:38 Resp 18 07/15/18 07:38 BP 131/67 07/15/18 07:38 Pulse Ox 92 04/12/19 07:38 Constitutional: WD/WN, vitals as above Respiratory: Auscultation: + diminished lung sounds Cardiovascular: RRR, no murmur, no edema Neurologic: moves all extremities and awake Psychiatric: A+Ox3, euthymic affect (1) Anemia Anemia type: unspecified type Qualified Code(s): D64.9 - Anemia, unspecified
[2018-07-15 10:21] LABS: Hematocrit (blood only) 22.9 % (37-47); Hemoglobin 7.3 g/dL (12.0-16.0); Mean Corpuscular Hgb Conc 31.9 g/dL (32-36); Mean Corpuscular Volume 86.1 fL (80-100); Mean Platelet Volume 10.2 fL (7.4-10.4); Platelet Count 320 K/uL (130-400); RDW Coefficient of Variation 15.5 % (11.5-14.5); RDW Standard Deviation 48.7 fL (36.4-46.3); Red Blood Count 2.66 M/uL (4.2-5.4); White Blood Count 6.47 K/uL (4.8-10.8)
--- NOTE | 2018-07-15 11:33 | Surgery Progress Note ---
Date of Service July 15, 2018 Assessment & Plan (1) Vocal cord paralysis syndrome: no change in plan Subjective No change Physical Exam Vital Signs (Past 24 Hours): Last Vital Signs Temp 36.9 C 07/15/18 11:15 Pulse 72 07/15/18 11:15 Resp 18 07/15/18 11:15 BP 146/73 H 07/15/18 11:15 Pulse Ox 99 07/15/18 11:15 ENMT: still hoarse
--- NOTE | 2018-07-15 14:09 | Pharmacy Report ---
Pharmacy Glycemic Short Note 2 - Date of Service July 15, 2018 - Glycemic Short BSG Results (Last 24 hours): 07/14/18 07/14/18 07/15/18 16:29 20:45 00:10 Glucose POC Glucose 211 H 284 H 245 H 07/15/18 07/15/18 07/15/18 04:01 05:43 07:21 Glucose 152 H POC Glucose 183 H 174 H 07/15/18 11:10 Glucose POC Glucose 158 H OUTPATIENT ANTIDIABETIC REGIMEN: * Per conversation with patient, she was using Novolog with V-Go pump, but was recently transitioned back to Lantus/Novolog. She said she had excellent BSG control at home and ate very few carbs. * Per [employer]: patient was on Lantus 30 units (not clear if this is once daily or BID) + Novolog 6 units, 8 units and 10 units with meals. * HbA1c: 8.1% (04/26/18) ASSESSMENT: 07/15/18: * Patient received total of 131 units Insulin yesterday; 40 units of which were basal and 91 units were bolus. This is reasonable since patient was on Solumedrol 40 mg Q12h. * Patient has had good BSG control this morning. * SM is now discontinued and changed to PO Prednisone 60 mg starting tomorrow AM. * Will continue with Lantus scale at HS today and possibly addition of NPH or increase in Lantus dose tomorrow AM d/t to addition of PO Prednisone. 07/14/18: * Changes since yesterday: * After tightening Novolog parameters yesterday morning, patient was slightly hypoglycemic pre-dinner (BSG 61) * IVF containing dextrose were discontinued after breakfast yesterday. * Last evening, patient was started on SoluMedrol 40mg IV q12h, which is expected to contribute to significant steroid-induced hyperglycemia. * Fasting BSG was elevated this morning (BSG 210) with reasonable pre-lunch BSG (185). * At this time, no change to Novolog parameters and slight increase in Lantus dose beginning this evening. * Will add 0000 and 0400 accu-checks tonight to provide additional coverage if patients BSGs begin to rise. 07/13/18 * Patient's BSGs have been above goal for the past 24 hours. * Novolog parameters were tightened slightly this morning to provide additional correction/prandial coverage. * Patient remains on IVF with dextrose and sodium bicarb. * Patient's PO intake was very little yesterday, but it looks like she tolerated breakfast pretty well this morning 07/12/09 * Ms. Reyna received 70 units of insulin yesterday (28 of this was basal) * Several changes in terms of insulin resistance/sensitivity have changed in the last 24 hours: * D5 @ 100 cc/hr has been changed to D5 + bicarb @ 100 cc/hr per nephro * Tube feeds stopped last night and po diet has been initiated * I'm anticipating insulin requirements to remain about the same while on the dextrose IVFs; however, do not want to be overly aggressive should these fluids be stopped. Will continue the same Lantus dose but change parameters to give the higher dose if BSG elevated. Current Novolog parameters are fairly aggressive so will loosen slightly now that continuous tube feeds are no longer on board. PLAN FOR INPATIENT GLYCEMIC CONTROL: * Lantus SQ BID - continue * 15 units if BSG < 140 * 22 units if BSG 140 or above * Novolog SQ ACHS - continue * correction factor 10 mg/dl/unit * carb ratio 1 unit per 5 grams CHO consumed * tighten goal range to Low 110 mg/dL - High 140 mg/dL Discharge Recommendations: * HbA1c (8.1%) indicates slightly sub-optimal glycemic control for a 62yo. * Recommend f/u with ampoule filler and sealer after discharge for continued adjustment of Lantus and Novolog.
--- NOTE | 2018-07-15 14:19 | CT Scan Report ---
CT chest wo con CLINICAL HISTORY: 62 years-old Female presenting with ongoing severe cough, recent bilateral pneumoni a, shortness of breath, difficulty laying down. TECHNIQUE: Multidetector CT imaging of the chest was performed without the use of intravenous contras t. IV contrast: None. One or more dose lowering techniques were used consistent with the principles o f ALARA (as low as reasonably achievable), including automatic exposure control, mA or kV adjustment to individual patient size, and/or use of iterative reconstruction. COMPARISON: CTA chest from 07/01/2018. CT DOSE (mGy.cm): The estimated cumulative dose is 590.46 mGycm. FINDINGS: Blood Bank Custodian topogram: Cardiomegaly. Soft tissues: Normal thyroid and thoracic inlet. Numerous subcentimeter mediastinal lymph nodes, like ly reactive. Atherosclerosis of the aorta. Multichamber enlargement of the heart. Coronary artery and aortic valve calcification. Trace right pleural effusion. Cholelithiasis. Splenule noted. Lungs and airways: No pneumothorax. Partial collapse of lower lobe airways with thickening of the bro nchovascular bundles. Extensive bandlike and dependent consolidation in the right lower lobe. Less ex tensive bandlike opacities in the dependent portions of the left lung. Diffuse added density of the l ungs with mosaic attenuation. Pulmonary arteries are mildly enlarged relative to adjacent bronchi. No interlobular septal thickening. Despite the presence of some residual consolidation, overall marked interval decrease in the prior diffuse solid consolidation in the right lung and left lower lobe. Res olution of prior patchy consolidation in the left upper lobe. The patient has also been extubated. Musculoskeletal: Degenerative changes of the spine. IMPRESSION: 1. Significant interval decrease in prior diffuse consolidation of the right lung and extensively in the dependent portions of the left lung. Only minimal consolidation remains in the right lower lobe with bibasilar atelectasis. Added density of the lungs may reflect the evolving changes of clearance of the prior infection. 2. Trace right pleural effusion. Electronically signed by: Will Gaitan M.D. 07/15/2018 2:17 PM
[2018-07-15] MEDS ORDERED: SODIUM CHLORIDE 0.9% 250 ML IV PRN (14:24)
[2018-07-15] MEDS: GUAIFENESIN/CODEINE 100MG/10MG 5ML UDC PO SCH (21:02)
--- NOTE | 2018-07-15 21:13 | Hospitalist Progress Note ---
Date of Service July 15, 2018 Assessment & Plan (1) Anemia: Fecal occult, iron studies, b12, folate -- all negative/normal. Hb 7.3 today. Cont ferrous sulfate 325mg BID. After much discussion we both felt PRBCs were in order. Consent obtained. 1 unit of blood today. CBC am. (2) Acute respiratory failure with hypoxia: Resolving. Off O2, but still with significant wheezing and cough. 2nd to b/l community-acquired pneumonia and then subsequent development of ARDS (suspected). Now with what seems like severe bronchitis. Patient worsened after admission and transitioned to BiPAP on 07/01. Intubated later on 07/01 after failing BIPAP. Underwent bronch by Dr. Carcamo in the ICU with negative cultures. Extubated from the vent on 07/07/18. CXR yesterday was stable/improved. However, in light of morbid obesity and limitations of cxr, will obtain chest CT to rule out any new or worsening process. Wean steroids if imaging is improved. (3) Multifocal pneumonia: bilateral. see discussion above in acute hypoxic respiratory failure. resolved. but still w/ severe cough/wheeze. chest CT today. (4) Lethargy: Resolved. (5) Hypercalcemia: 2nd to hyperparathyroidism. Defer management to nephrology. BMP am. stable corrected level in range of 11-12. (6) Hyperparathyroidism: primary, known history of such. (7) Hypertension: Continue coreg along with amlodipine and hydralazine. Renal artery dopplers negative. overall control has been much better. (8) Acute kidney injury: Likely sepsis-associated ATN. JEANETTE inhibitor use and IV contrast may have contributed as well. Creatinine recovery seems to have stalled in low 2's. Appreciate nephrology assistance. Defer management to nephrology. (9) Severe sepsis: resolved. (10) Non-ischemic cardiomyopathy: history of such - now resolved. (11) CHF (congestive heart failure): appears compensated on exam once again. (12) Elevated troponin: earlier this stay. Likely due to myocardial demand ischemia. (13) Diabetes: appreciate pharmacy assistance/management. pharmacy adjusting insulin. (14) Hyperlipidemia: statin (15) CKD (chronic kidney disease), stage III: baseline Cr about 1.3. now with ATN. creatinine each day improving. (16) Proteinuria: 24 hour urine protein with 1 gram. Proteinuria likely contributing to hypoalbuminemia. Appreciate nephrology assistance. no significant M spike on recent SPEP. (17) History of CVA (cerebrovascular accident): History of left basal ganglia CVA in September 2016. Plavix had been on hold - perhaps due to low platelets; perhaps due to concern of GI bleed. Fecal occult neg; platelets normal -- thus, resume plavix. CT head this admission negative for acute stroke. (18) Thrombocytopenia: Likely due to severe sepsis. resolved. (19) Morbid obesity with BMI of 40.0-44.9, adult: BMI 40 (20) Hypoalbuminemia: severe. cont protein supplements, etc. (21) Dysphagia: appreciate speech assistance. on modified diet. Dr. Azul performed laryngoscopy yesterday. considerable swelling of arytenoids and vocal cords with partial paralysis of one vocal cord. suspected to be from trauma from intubation, prolonged intubation, etc. will need time for recovery. video swallow planned for day of discharge. continue modified diet. I am concerned about ongoing microaspiration which is likely contributing to ongoing cough. (22) Oral candidiasis: resolved stop diflucan (23) DVT prophylaxis: Heparin 5,000 units q8hr. needs rehab - likely will be ready early this coming week Tx to med/surg today Subjective patient frustrated by her cough. states she had "rough night" due to her cough. no dyspnea at rest. she noticed that when she drank coke today w/ lunch she coughed and "it looked like coke." she is not opposed to blood transfusion. frustrated that "3 different doctors didn't give me antibiotics when I was sick" (before she was admitted). tele stable overnight. Constitutional: + fatigue; no fever and no anorexia Respiratory: + cough, + dyspnea on exertion, + sputum production and + wheezing; no dyspnea, no hemoptysis and no pain on inspiration Cardiovascular: + chest pain Gastrointestinal: no abdominal pain, no nausea and no vomiting Physical Exam Vital Signs (Past 24 Hours): Last Vital Signs Temp 36.4 C L 07/15/18 17:55 Pulse 67 07/15/18 20:12 Resp 18 07/15/18 20:12 BP 144/60 H 07/15/18 17:55 Pulse Ox 95 07/15/18 20:12 Constitutional: + morbidly obese; no acute distress ENMT: external ear and nose normal, oropharynx normal Mouth: + muffled voice (hoarse) Respiratory: normal respiratory effort; no respiratory distress Auscultation: + wheezes (but improved from prior exam) Cardiovascular: Rate/Rhythm: regular rate and regular rhythm Heart Sounds: normal S1 and normal S2; no murmur Vessels: posterior tibial pulses present and dorsalis pedis pulses present; no JVD Extremities: no pedal edema Gastrointestinal (Abdomen): normal bowel sounds, soft, nontender, no hepatosplenomegaly Skin: pallor Psychiatric: A+Ox3, euthymic affect Results & Data Laboratory Results Laboratory Results - last 24 hr 07/15/18 07/15/18 07/15/18 00:10 04:01 05:43 WBC RBC Hgb Hct MCV MCH MCHC RDW Std Deviation RDW Coeff of Braeden Plt Count MPV Sodium 141 Potassium 4.6 Chloride 108 H Carbon Dioxide 26 Anion Gap 6.0 BUN 91 H Creatinine 2.43 H Est Cr Clr Drug Dosing 31.7 Est GFR ( Amer) 23.9 Est GFR (Non-Af Amer) 20.6 BUN/Creatinine Ratio 37.6 H Glucose 152 H POC Glucose 245 H 183 H Calcium 10.0 Phosphorus 3.8 Albumin 2.4 L Blood Type Antibody Screen Crossmatch 07/15/18 07/15/18 07/15/18 05:43 07:21 11:10 WBC 6.47 RBC 2.66 L Hgb 7.3 L Hct 22.9 L MCV 86.1 MCH 27.4 MCHC 31.9 L RDW Std Deviation 48.7 H RDW Coeff of Braeden 15.5 H Plt Count 320 MPV 10.2 Sodium Potassium Chloride Carbon Dioxide Anion Gap BUN Creatinine Est Cr Clr Drug Dosing Est GFR ( Amer) Est GFR (Non-Af Amer) BUN/Creatinine Ratio Glucose POC Glucose 174 H 158 H Calcium Phosphorus Albumin Blood Type Antibody Screen Crossmatch 07/15/18 07/15/18 07/15/18 14:34 16:28 18:51 WBC RBC Hgb Hct MCV MCH MCHC RDW Std Deviation RDW Coeff of Braeden Plt Count MPV Sodium Potassium Chloride Carbon Dioxide Anion Gap BUN Creatinine Est Cr Clr Drug Dosing Est GFR ( Amer) Est GFR (Non-Af Amer) BUN/Creatinine Ratio Glucose POC Glucose 159 H 214 H Calcium Phosphorus Albumin Blood Type A Positive Antibody Screen NEGATIVE Crossmatch See Detail 07/15/18 20:30 WBC RBC Hgb Hct MCV MCH MCHC RDW Std Deviation RDW Coeff of Braeden Plt Count MPV Sodium Potassium Chloride Carbon Dioxide Anion Gap BUN Creatinine Est Cr Clr Drug Dosing Est GFR ( Amer) Est GFR (Non-Af Amer) BUN/Creatinine Ratio Glucose POC Glucose 220 H Calcium Phosphorus Albumin Blood Type Antibody Screen Crossmatch (1) Diabetes Diabetes mellitus complication status: without complication Diabetes mellitus prison insulin use: with [employer]termaker continuous churn use Diabetes mellitus type: type 2 Qualified Code(s): E11.9 - Type 2 diabetes mellitus without complications; Z79.4 - skilled nursing (current) use of insulin (2) CHF (congestive heart failure) Heart failure chronicity: chronic Heart failure type: systolic Qualified Code(s): I50.22 - Chronic systolic (congestive) heart failure (3) Anemia Anemia type: unspecified type Qualified Code(s): D64.9 - Anemia, unspecified (4) Dysphagia Dysphagia type: unspecified Qualified Code(s): R13.10 - Dysphagia, unspecifi ed (5) Hyperlipidemia Hyperlipidemia type: mixed hyperlipidemia Qualified Code(s): E78.2 - Mixed hyperlipidemia (6) Proteinuria Proteinuria type: other Qualified Code(s): R80.8 - Other proteinuria (7) Hypertension Hypertension type: essential hypertension Qualified Code(s): I10 - Essential (primary) hypertension
[2018-07-16] MEDS: ALBUT/IPRATROP 3MG/0.5MG NEB 3 ML VIAL NEB SCH ×6 (03:14→22:10)
[2018-07-16] MEDS: HEPARIN SOD 5,000 UNIT/0.5 ML VIAL SQ SCH ×3 (05:48→21:11)
[2018-07-16] MEDS: HydrALAZINE TAB 50 MG TAB PO SCH ×3 (05:58→22:36)
[2018-07-16 06:42] LABS: Albumin Level 2.5 gm/dl (3.4-5.0); Calcium 10.2 mg/dl (8.5-10.1); Creatinine Clr Calc Pharmacy 33.2 ml/min; Est GFR (African American) 25.1; Est GFR (Non-African American) 21.7; Potassium 4.8 mmol/L (3.5-5.1)
[2018-07-16 06:43] LABS: Phosphorus 4.3 mg/dl (2.5-4.9)
[2018-07-16] MEDS ORDERED: predniSONE 20 MG TAB PO SCH (09:00)
[2018-07-16] MEDS ORDERED: NovoLIN-N (NPH) PER UNIT CHARGE SQ ONE (09:00)
[2018-07-16] MEDS: INSULIN GLARGINE SOLOSTAR 100 UNITS/ML 3 ML PEN SC SCH (09:21)
[2018-07-16] MEDS: INSULIN ASPART 100 UNITS/ML 3 ML PEN SC SCH ×4 (09:22→21:16)
[2018-07-16] MEDS: PANTOprazole 40 MG TAB PO SCH ×2 (09:23→21:05)
[2018-07-16] MEDS: AMLODIPINE BESYLATE 5 MG TAB PO SCH (09:23)
[2018-07-16] MEDS: ATORVASTATIN 40 MG TAB PO SCH (09:23)
[2018-07-16] MEDS: CLOPIDOGREL BISULFATE 75 MG TAB PO SCH (09:23)
[2018-07-16] MEDS: FERROUS SULFATE 325 MG TAB PO SCH ×2 (09:24→21:04)
[2018-07-16] MEDS: CARVEDILOL 25 MG TAB PO SCH ×2 (09:24→21:27)
[2018-07-16] MEDS: SENNA 8.6 MG TAB PO SCH (09:25)
[2018-07-16] MEDS: POLYETHYLENE (MIRALAX) 17 GM PACK PO SCH (09:25)
--- NOTE | 2018-07-16 12:23 | Nephrology Progress Note ---
Date of Service July 16, 2018 Assessment & Plan (1) Acute kidney injury: 60-year-old female with acute kidney injury in the setting respiratory failure secondary to pneumonia and ARDS requiring intubation. Currently extubated on room air. Developed acute kidney injury secondary to ATN due to sepsis, iodinated contrast administration (CTA), and JEANETTE inhibitor use. Creatinine has been slowly improving and staying stable around 2.2-2.4 however BUN has been rising, above 100 today. She also has hypernatremia and hypercalcemia. She reports known history of hyperparathyroidism for several years and her PTH has been 250-300. Previously she was recommended to have a parathyroidectomy however she refused that. Blood pressure improved. Renal function remained stable without significant improvement. Calcium remained elevated however slightly improved. Hypercalcemia seems to be multifactorial including primary hyperparathyroidism, increase bone resorption with immobility with acute illness, volume depletion and others. Electrolytes remained stable with mild hypercalcemia. creatinine staying around 2.2-2.4 without much improvement over last few days although electrolyte otherwise acceptable. Blood pressure and volume status stable. -- encourage p.o. intake, try to keep intake and output even -- continue current antihypertensive medications -- if calcium worsened further, will consider 1 dose of bisphosphonate however would hold off for now --monitor for renal recovery Will follow (2) CKD (chronic kidney disease), stage III: -- Baseline creatinine ~1.3 mg/dL. -- Baseline A4 proteinuria, 2.8 g/g random sample in November. -- CKD can be attributed to diabetic nephropathy and or possible FSGS. (3) Multifocal pneumonia: -- Clinically improving. Patient has completed antibiotic therapy (4) Anemia: -- Recommend transfusion to maintain Hgb > or = 8.0 (5) Hyperparathyroidism: (6) Metabolic acidosis: Giovanni Mathis was seen & examined in her hospital room this morning with her family at bedside. She is awake, alert. Shortness of breath improved, however continues to be bothered by cough. Renal function stable, electrolyte acceptable. Decent urine output. BP fair. Physical Exam Vital Signs (Past 24 Hours): Last Vital Signs Temp 36.9 C 07/16/18 07:59 Pulse 66 07/16/18 11:13 Resp 16 07/16/18 11:13 BP 148/73 H 07/16/18 07:59 Pulse Ox 94 07/16/18 11:13 Constitutional: WD/WN, vitals as above Respiratory: normal respiratory effort, lungs clear to auscultation + respiratory distress and + cough Auscultation: + diminished lung sounds Cardiovascular: RRR, no murmur, no edema Neurologic: moves all extremities and awake Psychiatric: A+Ox3, euthymic affect (1) Anemia Anemia type: unspecified type Qualified Code(s): D64.9 - Anemia, unspecified
--- NOTE | 2018-07-16 14:10 | Pharmacy Report ---
Pharmacy Glycemic Short Note 2 - Date of Service July 16, 2018 - Glycemic Short BSG Results (Last 24 hours): 07/15/18 07/15/18 07/15/18 16:28 18:51 20:30 Glucose POC Glucose 159 H 214 H 220 H 07/16/18 07/16/18 07/16/18 05:53 07:30 11:23 Glucose 187 H POC Glucose 205 H 204 H ASSESSMENT: 07/16/18: * BSGs hyperglycemic over the previous 24hrs: [phone]/dL. Steroid induced. SM 40mg q12 was d/c'd and Prednisone 60mg was started today. I ordered ~0.4u/kg (45units) of NPH to help antagonize prednisone hyperglycemic effects. Further, I adjusted the lantus scale to help improve FBS: BSGs <180mg/dL give 20, BSGs>/=180mg/dL give 25 units. Will continue with correctional insulin as ordered. PLAN FOR INPATIENT GLYCEMIC CONTROL: * Lantus SQ BID - continue * 20 units if BSG < 180 * 225 units if BSG 180 or above * Novolog SQ ACHS - continue * correction factor 10 mg/dl/unit * carb ratio 1 unit per 5 grams CHO consumed
[2018-07-16] MEDS ORDERED: BISACODYL 5 MG TABEC PO ONE (18:00)
[2018-07-16] MEDS: GUAIFENESIN/CODEINE 100MG/10MG 5ML UDC PO SCH (21:04)
[2018-07-16] MEDS: ACETAMINOPHEN 500 MG TAB PO PRN (21:04)
--- NOTE | 2018-07-16 22:09 | Hospitalist Progress Note ---
Date of Service July 16, 2018 Assessment & Plan (1) Anemia: s/p 1 unit PRBCs yesterday; Hb 8.6. Cont ferrous sulfate 325mg BID. H/H am for stability. Most of anemia is due to blood draws during this protracted admission. (2) Acute respiratory failure with hypoxia: Resolved 2nd to b/l community-acquired pneumonia and then subsequent development of ARDS (suspected). And element of acute bronchitis. This, too, is resolving. Patient worsened after admission and transitioned to BiPAP on 07/01. Intubated later on 07/01 after failing BIPAP. Underwent bronch by Dr. Carcamo in the ICU with negative cultures. Extubated from the vent on 07/07/18. CT chest yesterday with marked improvement in infiltrates from prior CT. NO new areas of infiltrate. Wean prednisone to 40mg in the am tomorrow. Present on Admission?: Yes (3) Multifocal pneumonia: bilateral. see discussion above in acute hypoxic respiratory failure. resolved. (4) Lethargy: Resolved. (5) Hypercalcemia: 2nd to hyperparathyroidism. Defer management to nephrology. BMP am. stable corrected level in range of 11-12. (6) Hyperparathyroidism: primary, known history of such. (7) Hypertension: Continue coreg along with amlodipine and hydralazine. Renal artery dopplers negative. overall control has been much better. (8) Acute kidney injury: Likely sepsis-associated ATN. JEANETTE inhibitor use and IV contrast may have contributed as well. Creatinine recovery seems to have stalled in low 2's over the last 3-5 days. Appreciate nephrology assistance. Defer management to nephrology. (9) Severe sepsis: resolved. (10) Non-ischemic cardiomyopathy: history of such - now resolved. (11) CHF (congestive heart failure): appears compensated on exam once again. (12) Elevated troponin: earlier this stay. Likely due to myocardial demand ischemia. (13) Diabetes: appreciate pharmacy assistance/management. pharmacy adjusting insulin. (14) Hyperlipidemia: statin (15) CKD (chronic kidney disease), stage III: baseline Cr about 1.3. now with ATN. creatinine each day improving. (16) Proteinuria: 24 hour urine protein with 1 gram. Proteinuria likely contributing to hypoalbuminemia. Appreciate nephrology assistance. no significant M spike on recent SPEP. (17) History of CVA (cerebrovascular accident): History of left basal ganglia CVA in September 2016. Plavix had been on hold - perhaps due to low platelets; perhaps due to concern of GI bleed. Fecal occult neg; platelets normal -- thus, resume plavix. CT head this admission negative for acute stroke. (18) Thrombocytopenia: Likely due to severe sepsis. resolved. (19) Morbid obesity with BMI of 40.0-44.9, adult: BMI 40 (20) Hypoalbuminemia: severe. cont protein supplements, etc. albumin HAS improved in the last week w/ improved eating (was in the 1's, now up to 2.5 range). (21) Dysphagia: appreciate speech assistance. on modified diet. Dr. Azul performed laryngoscopy several days ago. considerable swelling of arytenoids and vocal cords with partial paralysis of o ne vocal cord. suspected to be from trauma from intubation, prolonged intubation, etc. will need time for recovery - may take up to 1 month in duration. video swallow planned for day of discharge. continue modified diet. I am concerned about ongoing microaspiration which is likely contributing to ongoing cough. (22) Oral candidiasis: resolved completed diflucan course (23) DVT prophylaxis: Heparin 5,000 units q8hr. needs rehab - likely will be ready early this coming week d/c acosta additional dose of dulcolax given for constipation today needs OOB to chair more frequently Subjective pt states "I slept great" last night reported chills during PRBCs but no fever; chills were transient still with cough - perhaps not as severe no dyspnea today has not been out of bed today ok with acosta removal Constitutional: no fever, no chills and no anorexia Ear, Nose, Mouth, Throat: + hoarseness Respiratory: + cough; no dyspnea, no hemoptysis and no wheezing Cardiovascular: no chest pain Gastrointestinal: + constipation (x 2-3 days); no abdominal pain, no nausea and no vomiting Physical Exam Vital Signs (Past 24 Hours): Last Vital Signs Temp 36.9 C 07/16/18 15:03 Pulse 69 07/16/18 18:55 Resp 18 07/16/18 18:55 BP 148/73 H 07/16/18 15:03 Pulse Ox 95 07/16/18 18:55 Constitutional: + morbidly obese; no acute distress ENMT: external ear and nose normal, oropharynx normal Mouth: + muffled voice (hoarse) Respiratory: normal respiratory effort, lungs clear to auscultation normal respiratory effort; no respiratory distress no wheeze today; just upper airway noise (mild stridor) with coughing due to vocal cord issue Cardiovascular: Rate/Rhythm: regular rate and regular rhythm Heart Sounds: normal S1 and normal S2; no murmur Vessels: posterior tibial pulses present and dorsalis pedis pulses present; no JVD Extremities: no pedal edema Gastrointestinal (Abdomen): normal bowel sounds, soft, nontender, no hepatosplenomegaly Inspection/Auscultation: + abdomen distended (mild) Psychiatric: A+Ox3, euthymic affect Results & Data Laboratory Results Laboratory Results - last 24 hr 07/11/18 07/16/18 07/16/18 09:58 05:53 05:53 Hgb 8.6 L Sodium 139 Potassium 4.8 Chloride 106 Carbon Dioxide 26 Anion Gap 7.0 BUN 89 H Creatinine 2.33 H Est Cr Clr Drug Dosing 33.2 Est GFR ( Amer) 25.1 Est GFR (Non-Af Amer) 21.7 BUN/Creatinine Ratio 38.0 H Glucose 187 H POC Glucose Calcium 10.2 H Phosphorus 4.3 Total Protein (PEP) Cancelled Albumin 2.5 L Albumin (PEP) Cancelled Mqfaw-2-Ttmqbghrt Cancelled Jchsa-9-Hplscusll Cancelled Unux-5-Xnkjbtga Cancelled Jdzp-6-Iveicwmo Cancelled Gamma Globulins Cancelled Monoclonal Peak 3 Cancelled Ser Monoclonl Protein Cancelled Ser Monoclonal Prot 2 Cancelled PEP Interpretation Cancelled PTH Related Protein 17 Free [place] LC, Quant Cancelled Free Lambda LC, Quant Cancelled Free [place]/Lambda Ratio Cancelled 07/16/18 07/16/18 07/16/18 07:30 11:23 16:16 Hgb Sodium Potassium Chloride Carbon Dioxide Anion Gap BUN Creatinine Est Cr Clr Drug Dosing Est GFR ( Amer) Est GFR (Non-Af Amer) BUN/Creatinine Ratio Glucose POC Glucose 205 H 204 H 146 H Calcium Phosphorus Total Protein (PEP) Albumin Albumin (PEP) Dbqmx-7-Usqipsumz Lllvr-5-Yelsvnpvs Omre-2-Tysgbfqk Zeqf-3-Urpfuoud Gamma Globulins Monoclonal Peak 3 Ser Monoclonl Protein Ser Monoclonal Prot 2 PEP Interpretation PTH Related Protein Free [place] LC, Quant Free Lambda LC, Quant Free [place]/Lambda Ratio 07/16/18 20:59 Hgb Sodium Potassium Chloride Carbon Dioxide Anion Gap BUN Creatinine Est Cr Clr Drug Dosing Est GFR ( Amer) Est GFR (Non-Af Amer) BUN/Creatinine Ratio Glucose POC Glucose 177 H Calcium Phosphorus Total Protein (PEP) Albumin Albumin (PEP) Vsyah-6-Mqgwigdcb Nhfzs-4-Vgdtydqww Pmkd-4-Immfgzhh Kbay-4-Oiuaaljp Gamma Globulins Monoclonal Peak 3 Ser Monoclonl Protein Ser Monoclonal Prot 2 PEP Interpretation PTH Related Protein Free [place] LC, Quant Free Lambda LC, Quant Free [place]/Lambda Ratio (1) Diabetes Diabetes mellitus complication status: without complication Diabetes mellitus half-way insulin use: with half-way use Diabetes mellitus type: type 2 Qualified Code(s): E11.9 - Type 2 diabetes mellitus without complications; 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 (2) CHF (congestive heart failure) Heart failure chronicity: chronic Heart failure type: systolic Qualified Code(s): I50.22 - Chronic systolic (congestive) heart failure (3) Anemia Anemia type: unspecified type Qualified Code(s): D64.9 - Anemia, unspecified (4) Dysphagia Dysphagia type: unspecified Qualified Code(s): R13.10 - Dysphagia, unspecified (5) Hyperlipidemia Hyperlipidemia type: mixed hyperlipidemia Qualified Code(s): E78.2 - Mixed hyperlipidemia (6) Proteinuria Proteinuria type: other Qualified Code(s): R80.8 - Other proteinuria (7) Hypertension Hypertension type: essential hypertension Qualified Code(s): I10 - Essential (primary) hypertension
[2018-07-17] MEDS: INSULIN ASPART 100 UNITS/ML 3 ML PEN SC SCH ×6 (00:04→21:02)
[2018-07-17] MEDS: HEPARIN SOD 5,000 UNIT/0.5 ML VIAL SQ SCH ×3 (06:19→20:59)
[2018-07-17] MEDS: HydrALAZINE TAB 50 MG TAB PO SCH ×3 (06:23→20:59)
[2018-07-17 07:33] LABS: Albumin Level 2.4 gm/dl (3.4-5.0); BUN Creatinine Ratio 38.9 (10-20); Calcium 10.1 mg/dl (8.5-10.1); Est GFR (African American) 27.7; Est GFR (Non-African American) 23.9; Potassium 4.5 mmol/L (3.5-5.1)
[2018-07-17 07:42] LABS: Phosphorus 3.7 mg/dl (2.5-4.9)
[2018-07-17] MEDS: ALBUT/IPRATROP 3MG/0.5MG NEB 3 ML VIAL NEB SCH ×4 (07:42→19:25)
[2018-07-17] MEDS ORDERED: INSULIN HUMAN NPH SC SCH (09:00)
[2018-07-17] MEDS: predniSONE 20 MG TAB PO SCH (09:22)
[2018-07-17] MEDS: AMLODIPINE BESYLATE 5 MG TAB PO SCH (09:22)
[2018-07-17] MEDS: INSULIN HUMAN NPH SC SCH (09:23)
[2018-07-17] MEDS: ATORVASTATIN 40 MG TAB PO SCH (09:23)
[2018-07-17] MEDS: CLOPIDOGREL BISULFATE 75 MG TAB PO SCH (09:23)
[2018-07-17] MEDS: FERROUS SULFATE 325 MG TAB PO SCH ×2 (09:23→20:57)
[2018-07-17] MEDS: CARVEDILOL 25 MG TAB PO SCH ×2 (09:23→20:58)
[2018-07-17] MEDS: SENNA 8.6 MG TAB PO SCH (09:23)
[2018-07-17] MEDS: INSULIN GLARGINE SOLOSTAR 100 UNITS/ML 3 ML PEN SC SCH (09:24)
[2018-07-17] MEDS: PANTOprazole 40 MG TAB PO SCH ×2 (09:25→20:57)
[2018-07-17] MEDS: POLYETHYLENE (MIRALAX) 17 GM PACK PO SCH (09:27)
--- NOTE | 2018-07-17 10:43 | Pharmacy Report ---
Pharmacy Glycemic Short Note 2 - Date of Service July 17, 2018 - Glycemic Short BSG Results (Last 24 hours): 07/16/18 07/16/18 07/16/18 11:23 16:16 20:59 Glucose POC Glucose 204 H 146 H 177 H 07/17/18 07/17/18 07/17/18 00:03 04:34 06:45 Glucose 125 H POC Glucose 176 H 144 H 07/17/18 07:59 Glucose POC Glucose 135 H ASSESSMENT: * Pt is currently receiving ~ 100 units of insulin per day with near adequate control. * Expect daily insulin requirement to decrease with each step down in steroid dosing * Prednisone decreased from 60mg/day to 40mg/day starting this morning * Pt insulin Rx = basal insulin {Lantus}, bolus insulin {NovoLog}, and steroid hyperglycemia insulin {NPH} * NPH insulin is used to counteract the hyperglycemic effect of prednisone. The rationale for this approach is that the pharmacodynamics profile of NPH, with a peak effect of 4-8hrs and duration of action of 12-16hrs, mirrors the pharmacodynamics of prednisone. NPH should be dosed at the same time that prednisone is given * The dose of NPH given is dependent on the steroid dose given * For doses of prednisone 40mg/day or above NPH dose should be 0.4 units/kg. Will use adjusted body weight of 84kg since patient with BMI >35 * NPH dosing above is given in addition to patients basal insulin needs * Typically, patients will also need rapid-acting insulin with meals * Will continue to titrate insulin dosing with each step down in steroid dosing PLAN FOR INPATIENT GLYCEMIC CONTROL: * Lantus: decrease dosing to daily with the addition of NPH * Lantus 30 units SQ daily (this is outpatient dosing) * NPH 35 units (0.4 units/kg adj BW) Sq daily to be given at the same time as prednisone * Novolog SQ ACHS - continue * correction factor 10 mg/dl/unit * carb ratio 1 unit per 5 grams CHO consumed
--- NOTE | 2018-07-17 11:43 | Nephrology Progress Note ---
Date of Service July 17, 2018 Assessment & Plan (1) Acute kidney injury: 60-year-old female with acute kidney injury in the setting respiratory failure secondary to pneumonia and ARDS requiring intubation. Currently extubated on room air. Developed acute kidney injury secondary to ATN due to sepsis, iodinated contrast administration (CTA), and JEANETTE inhibitor use. Creatinine has been slowly improving and now staying stable around 2.2-2.4. She also has hypercalcemia. She reports known history of hyperparathyroidism for several years and her PTH has been 250-300. Previously she was recommended to have a parathyroidectomy however she refused. Blood pressure improved. Renal function remained stable without significant improvement. Calcium remained stable, corrected around 11-11.5. Hypercalcemia seems to be multifactorial including primary hyperparathyroidism, increase bone resorption with immobility with acute illness, and others. Electrolytes remained stable with mild hypercalcemia. creatinine staying around 2.2-2.4 without much improvement over last few days although electrolyte otherwise acceptable. Blood pressure and volume status stable. -- encourage p.o. intake, try to keep intake and output even -- continue current antihypertensive medications -- if calcium worsened further, will consider 1 dose of bisphosphonate however would hold off for now --monitor for renal recovery, considering possible dense ATN, it may take weeks for renal recovery --if patient clinically stable to be discharged to [facility], can be discharged any time with lab monitoring and follow-up in CKD clinic Will follow (2) CKD (chronic kidney disease), stage III: -- Baseline creatinine ~1.3 mg/dL. -- Baseline A4 proteinuria, 2.8 g/g random sample in November. -- CKD can be attributed to diabetic nephropathy and or possible FSGS. (3) Multifocal pneumonia: -- Clinically improving. Patient has completed antibiotic therapy (4) Anemia: -- Recommend transfusion to maintain Hgb > or = 8.0 (5) Hyperparathyroidism: (6) Metabolic acidosis: Giovanni Mathis was seen & examined in her hospital room this morning with her family at bedside. She is awake, alert. Shortness of breath and cough improved. Renal function stable, electrolyte acceptable. Decent urine output. BP fair. Physical Exam Vital Signs (Past 24 Hours): Last Vital Signs Temp 36.5 C 07/17/18 07:43 Pulse 62 07/17/18 11:16 Resp 18 07/17/18 11:16 BP 134/80 07/17/18 07:43 Pulse Ox 98 07/17/18 11:16 Constitutional: WD/WN, vitals as above Respiratory: normal respiratory effort, lungs clear to auscultation Cardiovascular: RRR, no murmur, no edema Neurologic: moves all extremities and awake Psychiatric: A+Ox3, euthymic affect (1) Anemia Anemia type: unspecified type Qualified Code(s): D64.9 - Anemia, unspecified
[2018-07-17] MEDS: GUAIFENESIN/CODEINE 100MG/10MG 5ML UDC PO SCH (20:54)
[2018-07-17] MEDS: ACETAMINOPHEN 500 MG TAB PO PRN (20:54)
--- NOTE | 2018-07-17 21:26 | Hospitalist Progress Note ---
Date of Service July 17, 2018 Assessment & Plan (1) Acute respiratory failure with hypoxia: Resolved 2nd to b/l community-acquired pneumonia and then subsequent development of ARDS (suspected). Acute bronchitis resolved. Patient worsened after admission and transitioned to BiPAP on 07/01. Intubated later on 07/01 after failing BIPAP. Underwent bronch by Dr. Carcamo in the ICU with negative cultures. Extubated from the vent on 07/07/18. CT chest 2 days ago with marked improvement in infiltrates from prior CT. NO new areas of infiltrate. Weaned prednisone to 40mg today. Would wean every 2 days by 10mg increments to off. (2) Vocal cord paralysis syndrome: Appreciate ENT consultation (Dr Azul). Direct laryngoscopy performed showing a unilateral vocal cord paralysis. Dr. Azul hopeful that in 3-4 weeks the issue will resolve. Will need outpatient f/u with Dr. Azul. This was likely due to intubation attempts, prolonged intubation/vent dependency, etc Present on Admission?: No (3) Anemia: s/p 1 unit PRBCs several days ago with stable H/H since. Cont ferrous sulfate 325mg BID. Most of the anemia is due to blood draws during this protracted admission. (4) Multifocal pneumonia: bilateral. see discussion above in acute hypoxic respiratory failure. resolved. (5) Lethargy: Resolved. (6) Hypercalcemia: 2nd to hyperparathyroidism. Defer management to nephrology. BMP am. stable corrected level in range of 11-12. (7) Hyperparathyroidism: primary, known history of such. (8) Hypertension: Continue coreg along with amlodipine and hydralazine. Renal artery dopplers negative. overall control satisfactory. (9) Acute kidney injury: Likely sepsis-associated ATN. JEANETTE inhibitor use and IV contrast may have contributed as well. Creatinine has been in the low 2's over the last 5+ days. Appreciate nephrology assistance. Defer management to nephrology. (10) Severe sepsis: resolved. (11) Non-ischemic cardiomyopathy: history of such - now resolved. (12) CHF (congestive heart failure): appears compensated on exam once again. (13) Elevated troponin: earlier this stay. Likely due to myocardial demand ischemia. (14) Diabetes: appreciate pharmacy assistance/management. pharmacy adjusting insulin. (15) Hyperlipidemia: statin (16) CKD (chronic kidney disease), stage III: baseline Cr about 1.3. now with ATN but creatinine has been stable in low 2's. (17) Proteinuria: 24 hour urine protein with 1 gram. Proteinuria likely contributing to hypoalbuminemia. Appreciate nephrology assistance. no significant M spike on recent SPEP. (18) History of CVA (cerebrovascular accident): History of left basal ganglia CVA in September 2016. Plavix had been on hold - perhaps due to low platelets; perhaps due to concern of GI bleed. Fecal occult neg; platelets normal -- thus, resumed plavix. CT head this admission negative for acute stroke. (19) Thrombocytopenia: Likely due to severe sepsis. resolved. (20) Morbid obesity with BMI of 40.0-44.9, adult: BMI 40 (21) Hypoalbuminemia: severe. cont protein supplements, etc. albumin HAS improved in the last week w/ improved eating (was in the 1's, now up to 2.5 range). (22) Dysphagia: appreciate speech assistance. on modified diet. Dr. Azul performed laryngoscopy several days ago. considerable swelling of arytenoids and vocal cords with partial paralysis of one vocal cord. suspected to be from trauma from intubation, prolonged intubation, etc. will need time for recovery - may take up to 1 month in duration. video swallow planned for day of discharge. continue modified diet. (23) Oral candidiasis: resolved completed diflucan course and diflucan stopped (24) DVT prophylaxis: Heparin 5,000 units q8hr. needs rehab apparently has been accepted by [facility] but will need to make referral to insurance on 07/18/18 ,daughter updated at bedside today Subjective patient had no complaints today acosta was removed yesterday -- voiding fine eating well coughing but no dyspnea daughter/ at bedside they are still wanting [facility] for rehab Constitutional: no fever Respiratory: no dyspnea (at rest) Cardiovascular: no chest pain Gastrointestinal: + constipation; no abdominal pain, no nausea, no vomiting and no diarrhea/loose stools Physical Exam Vital Signs (Past 24 Hours): Last Vital Signs Temp 36.5 C 07/17/18 16:02 Pulse 64 07/17/18 19:25 Resp 18 07/17/18 19:25 BP 139/81 07/17/18 16:02 Pulse Ox 94 07/17/18 16:02 Constitutional: + morbidly obese; no acute distress ENMT: external ear and nose normal, oropharynx normal Mouth: + muffled voice (hoarse) Respiratory: normal respiratory effort, lungs clear to auscultation Auscultation: no rales and no wheezes upper airway noise/stridor from vocal cord paralysis Cardiovascular: Rate/Rhythm: regular rate and regular rhythm Heart Sounds: normal S1 and normal S2; no murmur Vessels: posterior tibial pulses present and dorsalis pedis pulses present; no JVD Extremities: + pedal edema (trace b/l) Gastrointestinal (Abdomen): normal bowel sounds, soft, nontender, no hepatosplenomegaly Psychiatric: A+Ox3, euthymic affect Results & Data Laboratory Results Laboratory Results - last 24 hr 07/17/18 07/17/18 07/17/18 00:03 04:34 06:45 Hgb Sodium 141 Potassium 4.5 Chloride 108 H Carbon Dioxide 26 Anion Gap 7.0 BUN 84 H Creatinine 2.15 H Est Cr Clr Drug Dosing 36.0 Est GFR ( Amer) 27.7 Est GFR (Non-Af Amer) 23.9 BUN/Creatinine Ratio 38.9 H Glucose 125 H POC Glucose 176 H 144 H Calcium 10.1 Phosphorus 3.7 Albumin 2.4 L 07/17/18 07/17/18 07/17/18 06:45 07:59 12:04 Hgb 9.0 L Sodium Potassium Chloride Carbon Dioxide Anion Gap BUN Creatinine Est Cr Clr Drug Dosing Est GFR ( Amer) Est GFR (Non-Af Amer) BUN/Creatinine Ratio Glucose POC Glucose 135 H 154 H Calcium Phosphorus Albumin 07/17/18 07/17/18 16:47 21:00 Hgb Sodium Potassium Chloride Carbon Dioxide Anion Gap BUN Creatinine Est Cr Clr Drug Dosing Est GFR ( Amer) Est GFR (Non-Af Amer) BUN/Creatinine Ratio Glucose POC Glucose 138 H 195 H Calcium Phosphorus Albumin (1) Diabetes Diabetes mellitus complication status: without complication 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 Diabetes mellitus type: type 2 Qualified Code(s): E11.9 - Type 2 diabetes mellitus without complications; Z79.4 - residential (current) use of insulin (2) CHF (congestive heart failure) Heart failure chronicity: chronic Heart failure type: systolic Qualified Code(s): I50.22 - Chronic systolic (congestive) heart failure (3) Anemia Anemia type: unspecified type Qualified Code(s): D64.9 - Anemia, unspecified (4) Dysphagia Dysphagia type: unspecified Qualified Code(s): R13.10 - Dysphagia, unspecified (5) Hyperlipidemia Hyperlipidemia type: mixed hyperlipidemia Qualified Code(s): E78.2 - Mixed hyperlipidemia (6) Proteinuria Proteinuria type: other Qualified Code(s): R80.8 - Other proteinuria (7) Hypertension Hypertension type: essential hypertension Qualified Code(s): I10 - Essential (primary) hypertension
[2018-07-18] MEDS: HydrALAZINE TAB 50 MG TAB PO SCH ×3 (06:24→21:02)
[2018-07-18] MEDS: HEPARIN SOD 5,000 UNIT/0.5 ML VIAL SQ SCH ×3 (06:24→21:03)
[2018-07-18] MEDS: ALBUT/IPRATROP 3MG/0.5MG NEB 3 ML VIAL NEB SCH ×4 (07:17→19:07)
[2018-07-18 07:31] LABS: Albumin Level 2.3 gm/dl (3.4-5.0); BUN Creatinine Ratio 34.3 (10-20); Calcium 9.8 mg/dl (8.5-10.1); Creatinine Clr Calc Pharmacy 37.4 ml/min; Phosphorus 3.3 mg/dl (2.5-4.9); Potassium 4.2 mmol/L (3.5-5.1)
[2018-07-18] MEDS: CARVEDILOL 25 MG TAB PO SCH ×2 (09:25→21:02)
[2018-07-18] MEDS: FERROUS SULFATE 325 MG TAB PO SCH ×2 (09:26→21:02)
[2018-07-18] MEDS: INSULIN GLARGINE SOLOSTAR 100 UNITS/ML 3 ML PEN SC SCH (09:27)
[2018-07-18] MEDS: ATORVASTATIN 40 MG TAB PO SCH (09:28)
[2018-07-18] MEDS: AMLODIPINE BESYLATE 5 MG TAB PO SCH (09:28)
[2018-07-18] MEDS: PANTOprazole 40 MG TAB PO SCH ×2 (09:29→21:02)
[2018-07-18] MEDS: predniSONE 20 MG TAB PO SCH (09:29)
[2018-07-18] MEDS: CLOPIDOGREL BISULFATE 75 MG TAB PO SCH (09:29)
[2018-07-18] MEDS: SENNA 8.6 MG TAB PO SCH (09:30)
[2018-07-18] MEDS: INSULIN HUMAN NPH SC SCH (09:32)
[2018-07-18] MEDS: INSULIN ASPART 100 UNITS/ML 3 ML PEN SC SCH ×4 (09:34→21:03)
--- NOTE | 2018-07-18 09:55 | Hospitalist Progress Note ---
Date of Service July 18, 2018 Assessment & Plan (1) Acute respiratory failure with hypoxia: Continues to improve 2nd to b/l community-acquired pneumonia and then subsequent development of ARDS (suspected). Acute bronchitis resolved. Patient worsened after admission and transitioned to BiPAP on 07/01. Intubated later on 07/01 after failing BIPAP. Underwent bronch by Dr. Carcamo in the ICU with negative cultures. Extubated successfully on 07/07/18. Follow-up CT chest after extubation with marked improvement in infiltrates from prior CT. NO new areas of infiltrate. Weaned prednisone taper as able (2) Vocal cord paralysis syndrome: Appreciate ENT consultation (Dr Azul). Direct laryngoscopy performed showing a unilateral vocal cord paralysis. Dr. Azul hopeful that in 3-4 weeks the issue will resolve. Will need outpatient f/u with Dr. Azul. This was likely due to intubation attempts, prolonged intubation/vent dependency, etc (3) Anemia: s/p 1 unit PRBCs now remains with stable H/H since. Cont ferrous sulfate 325mg BID. (4) Multifocal pneumonia: bilateral. Associated with acute hypoxic respiratory failure and concern for ARDS. resolved. (5) Hypertension: Continue coreg along with amlodipine and hydralazine. Renal artery dopplers negative. (6) Diabetes: appreciate pharmacy assistance/management. pharmacy adjusting insulin. (7) Hypercalcemia: 2nd to hyperparathyroidism. Defer management to nephrology. (8) Hyperparathyroidism: primary, known history of such. (9) Acute kidney injury: Likely sepsis-associated ATN. JEANETTE inhibitor use and IV contrast may have contributed as well. (10) Severe sepsis: resolved. (11) Non-ischemic cardiomyopathy: history of such - now resolved no clinical symptoms (12) Elevated troponin: myocardial demand ischemia. (13) History of CVA (cerebrovascular accident): History of left basal ganglia CVA in September 2016. Plavix had been on hold - Fecal occult neg; platelets normal -- thus, resumed plavix. CT head this admission negative for acute stroke. (14) Hyperlipidemia: statin (15) CKD (chronic kidney disease), stage III: baseline Cr about 1.3. (16) Thrombocytopenia: Likely due to severe sepsis. resolved. (17) Proteinuria: 24 hour urine protein with 1 gram. Proteinuria likely contributing to hypoalbuminemia. Appreciate nephrology assistance. no significant M spike on recent SPEP. (18) Morbid obesity with BMI of 40.0-44.9, adult: BMI 40 (19) Hypoalbuminemia: severe. cont protein supplements, etc. albumin HAS improved in the last week w/ improved eating (20) Dysphagia: appreciate speech assistance. on modified diet. Dr. Azul performed laryngoscopy several days ago. considerable swelling of arytenoids and vocal cords with partial paralysis of one vocal cord. suspected to be from trauma from intubation, prolonged intubation, etc. will need time for recovery - may take up to 1 month in duration. video swallow planned before discharge, I spoke to speech therapy on 07/18. continue to tolerate modified diet. (21) Oral candidiasis: resolved completed diflucan course and diflucan stopped (22) DVT prophylaxis: Heparin 5,000 units q8hr. needs rehab ,daughter updated at bedside today 07/18 Subjective Patient states he feels better every day she has no focal complaints or problems today. She is concerned she may be too weak to go to [address] [place] [address]. Her breathing is improved she is also hoarse voice she is tolerating swallowing without difficulty Review of Systems ROS: well nourished well developed morbidly obese is interrupted is is. No double vision blurry vision No problems with swallowing on a modified diet she does have continued hoarse voice No palpitations, chest pain or pressure No Wheezing or breathing issues remains mildly dyspneic on exertion No abdominal pain nausea vomiting diarrhea changes in appetite or weight No burning urine urine frequency or changes in color No focal joint pain has some tenderness of the right calf No skin rashes or oral lesions No unusual bruising or bleeding No focused back pain or numbness or loss of strength No changes in memory or confusion Physical Exam Vital Signs (Past 24 Hours): Last Vital Signs Temp 36.5 C 07/18/18 07:21 Pulse 62 07/18/18 07:21 Resp 18 07/18/18 07:21 BP 140/80 07/18/18 07:21 Pulse Ox 94 07/18/18 07:21 The patient appeared well nourished and normally developed. She is fatigued Vital signs as documented. Head exam is unremarkable. normocephalic, atraumatic Neck is without jugular venous distension, thyromegaly, or lymphademopathy Lungs are clear to auscultation except for mild dullness at the bases Cardiac exam reveals Rhythm is regular. First and second heart sounds normal. Abdominal exam reveals normal bowel sounds, no masses, no organomegaly Extremities are mildly edematous unilaterally on the right but both pedal pulses are present Neurologic exam is A&Ox3, no focal deficits, strength is equal bilateral Psychologically seems neither anxious or depressed Skin is warm Dry without bruises or lesions (1) Diabetes Diabetes mellitus complication status: without complication Diabetes mellitus snf insulin use: with snf use Diabetes mellitus type: type 2 Qualified Code(s): E11.9 - Type 2 diabetes mellitus without complications; Z79.4 - rodent exterminator (current) use of insulin (2) Anemia Anemia type: unspecified type Qualified Code(s): D64.9 - Anemia, unspecified (3) Dysphagia Dysphagia type: unspecified Qualified Code(s): R13.10 - Dysphagia, unspecified (4) Hyperlipidemia Hyperlipidemia type: mixed hyperlipidemia Qualified Code(s): E78.2 - Mixed hyperlipidemia (5) Proteinuria Proteinuria type: other Qualified Code(s): R80.8 - Other proteinuria (6) Hypertension Hypertension type: essential hypertension Qualified Code(s): I10 - Essential (primary) hypertension
--- NOTE | 2018-07-18 10:49 | Nephrology Progress Note ---
Date of Service July 18, 2018 Assessment & Plan (1) Acute kidney injury: 60-year-old female with acute kidney injury in the setting respiratory failure secondary to pneumonia and ARDS/VDRF. Currently extubated on room air. Developed acute kidney injury secondary to ATN due to sepsis, iodinated contrast administration (CTA), and JEANETTE inhibitor use. Creatinine has been slowly improving and now creatinine 2.0 mg/dL. She also developed hypercalcemia. History of hyperparathyroidism for several years --- PTH has been 250-300. Previously she was recommended to have a parathyroidectomy however she refused. Blood pressure improved. Renal function showing signs of recovery. Calcium remained stable, corrected around 11-11.5. Electrolytes remained stable with mild hypercalcemia. Continue to monitor renal recovery. Metabolic profile daily while inpatient and twice weekly at discharge. Medications are appropriately dosed for kidney function. (2) CKD (chronic kidney disease), stage III: -- Baseline creatinine ~1.3 mg/dL. -- Baseline A4 proteinuria, 2.8 g/g random sample in November. -- CKD can be attributed to diabetic nephropathy and or possible FSGS. (3) Multifocal pneumonia: -- Clinically improving. Patient has completed antibiotic therapy (4) Anemia: -- Recommend transfusion to maintain Hgb > or = 8.0 (5) Hyperparathyroidism: (6) Metabolic acidosis: Giovanni Mathis was seen & examined in her hospital room this morning. She was out of bed with PT. She denies dyspnea. She denies pain. No urinary complaints. Review of Systems All systems reviewed & are unremarkable except as noted in HPI & below Physical Exam Vital Signs (Past 24 Hours): Last Vital Signs Temp 36.5 C 07/18/18 07:21 Pulse 62 07/18/18 07:21 Resp 18 07/18/18 07:21 BP 140/80 07/18/18 07:21 Pulse Ox 94 07/18/18 07:21 Constitutional: + obese; no acute distress and not edematous Eyes: no scleral abnormality and no corneal abnormality Neck: trachea midline and + thick neck Respiratory: Auscultation: + rales and + rhonchi Cardiovascular: Heart Sounds: normal S1 and normal S2; no murmur Vessels: + JVD Extremities: no edema Gastrointestinal (Abdomen): Inspection/Auscultation: + abdomen distended and normal bowel sounds Percussion/Palpation: abdomen soft Musculoskeletal: Extremities: no cyanosis, no clubbing and no petechiae Skin: no rashes Results & Data Laboratory Results Laboratory Results - last 24 hr 07/17/18 07/17/18 07/17/18 12:04 16:47 21:00 Sodium Potassium Chloride Carbon Dioxide Anion Gap BUN Creatinine Est Cr Clr Drug Dosing Est GFR ( Amer) Est GFR (Non-Af Amer) BUN/Creatinine Ratio Glucose POC Glucose 154 H 138 H 195 H Calcium Phosphorus Albumin 07/18/18 07/18/18 06:58 07:53 Sodium 141 Potassium 4.2 Chloride 108 H Carbon Dioxide 24 Anion Gap 9.0 BUN 71 H Creatinine 2.07 H Est Cr Clr Drug Dosing 37.4 Est GFR ( Amer) 29.0 Est GFR (Non-Af Amer) 25.0 BUN/Creatinine Ratio 34.3 H Glucose 124 H POC Glucose 141 H Calcium 9.8 Phosphorus 3.3 Albumin 2.3 L (1) Anemia Anemia type: unspecified type Qualified Code(s): D64.9 - Anemia, unspecified
[2018-07-18] MEDS ORDERED: GUAIFENESIN/DEXTROM SYRUP 200MG/20MG 10ML UDC PO PRN (12:42)
[2018-07-18] MEDS: POLYETHYLENE (MIRALAX) 17 GM PACK PO SCH (12:55)
--- NOTE | 2018-07-18 13:58 | Fluoroscopy Report ---
FL video swallow HISTORY: Aspiration assess for aspiration TECHNIQUE: Video fluoroscopic evaluation of swallowing was performed in the AP and lateral projection s by the speech pathology staff. The patient is fed nectar-thick and thin liquid barium, a barium coa estephania wafer, and barium pudding. FLUOROSCOPY TIME: 2 minutes 20 seconds NUMBER OF FLUOROSCOPIC IMAGES: 49 COMPARISON STUDY: None. FINDINGS: There is normal hyoid excursion and epiglottic deflection. No significant penetration or as piration identified. Swallowing function is within normal limits. Moderate esophageal dysmotility IMPRESSION: 1. No aspiration identified. Moderate esophageal dysmotility 2. Please see the speech pathologist report for detailed findings and recommendations. The above report was generated using voice recognition software. It may contain grammatical, syntax or spelling errors. Electronically signed by: Colton Oseguera M.D. 07/18/2018 1:56 PM
--- NOTE | 2018-07-18 17:10 | Ultrasound Report ---
RIGHT LOWER EXTREMITY VENOUS DOPPLER CLINICAL HISTORY: Cough. Pneumonia. COMPARISON STUDY: Right lower extremity venous Doppler September 25 2016. TECHNIQUE: Sonography of the deep venous system of the right lower extremity was performed. Compress ion and augmentation were evaluated. FINDINGS: The right common femoral, superficial femoral and popliteal veins were compressible. Augme ntation was normal. Flow was shown within the deep calf vessels. Lower extremity edema is noted. IMPRESSION: No evidence of deep venous thrombus within the right lower extremity. Electronically signed by: Jonahtan An M.D. 07/18/2018 5:09 PM
[2018-07-18] MEDS: ACETAMINOPHEN 500 MG TAB PO PRN (21:01)
[2018-07-19] MEDS: HEPARIN SOD 5,000 UNIT/0.5 ML VIAL SQ SCH ×3 (05:53→21:46)
[2018-07-19] MEDS: HydrALAZINE TAB 50 MG TAB PO SCH ×3 (05:56→21:42)
[2018-07-19] MEDS: ALBUT/IPRATROP 3MG/0.5MG NEB 3 ML VIAL NEB SCH ×4 (07:44→19:38)
[2018-07-19 07:57] LABS: Albumin Level 2.3 gm/dl (3.4-5.0); BUN Creatinine Ratio 33.3 (10-20); Calcium 9.7 mg/dl (8.5-10.1); Creatinine Clr Calc Pharmacy 43.5 ml/min; Est GFR (African American) 34.8; Phosphorus 2.9 mg/dl (2.5-4.9)
--- NOTE | 2018-07-19 08:16 | Hospitalist Progress Note ---
Date of Service July 19, 2018 Assessment & Plan (1) Acute respiratory failure with hypoxia: Continues to improve 2nd to b/l community-acquired pneumonia and then subsequent development of ARDS (suspected). Acute bronchitis resolved. Patient worsened after admission and transitioned to BiPAP on 07/01. Intubated later on 07/01 after failing BIPAP. Underwent bronch by Dr. Carcamo in the ICU with negative cultures. Extubated successfully on 07/07/18. Follow-up CT chest after extubation with marked improvement in infiltrates from prior CT. NO new areas of infiltrate. Continue to wean prednisone taper as able (2) Vocal cord paralysis syndrome: Appreciate ENT consultation (Dr Azul). Direct laryngoscopy performed showing a unilateral vocal cord paralysis. Dr. Azul hopeful that in 3-4 weeks the issue will resolve. Will need outpatient f/u with Dr. Azul. This was likely due to intubation attempts, prolonged intubation/vent dependency, etc Patient has persistent minor hoarseness but no swallowing problems (3) Anemia: s/p 1 unit PRBCs now remains with stable H/H since. Cont ferrous sulfate 325mg BID. (4) Multifocal pneumonia: bilateral. Improved/resolved Associated with acute hypoxic respiratory failure and concern for ARDS. (5) Hypertension: Continue coreg along with amlodipine and hydralazine. Renal artery dopplers negative for secondary causes of hypertension. (6) Diabetes: appreciate pharmacy assistance/management. pharmacy adjusting insulin. Glargine 25 units daily plus NPH daily (7) Hypercalcemia: 2nd to hyperparathyroidism. Defer management to nephrology. (8) Hyperparathyroidism: primary, known history of such. (9) Acute kidney injury: Likely sepsis-associated ATN. JEANETTE inhibitor use and IV contrast may have contributed as well. (10) Severe sepsis: resolved. (11) Non-ischemic cardiomyopathy: history of such - now resolved no clinical symptoms (12) Elevated troponin: myocardial demand ischemia. (13) History of CVA (cerebrovascular accident): History of left basal ganglia CVA in September 2016. Plavix had been on hold - Fecal occult neg; platelets normal -- thus, resumed plavix. CT head this admission negative for acute stroke. (14) Hyperlipidemia: statin (15) CKD (chronic kidney disease), stage III: baseline Cr about 1.3. (16) Thrombocytopenia: Likely due to severe sepsis. resolved. (17) Proteinuria: 24 hour urine protein with 1 gram. Proteinuria likely contributing to hypoalbuminemia. Appreciate nephrology assistance. no significant M spike on recent SPEP. (18) Morbid obesity with BMI of 40.0-44.9, adult: BMI 40 (19) Hypoalbuminemia: severe. cont protein supplements, etc. albumin HAS improved in the last week w/ improved eating (20) Dysphagia: appreciate speech assistance. on modified diet. Dr. Azul performed laryngoscopy several days ago. considerable swelling of arytenoids and vocal cords with partial paralysis of one vocal cord. suspected to be from trauma from intubation, prolonged intubation, etc. will need time for recovery - may take up to 1 month in duration. video swallow planned before discharge, I spoke to speech therapy on 07/18. continue to tolerate modified diet. (21) Oral candidiasis: resolved completed diflucan course and diflucan stopped (22) DVT prophylaxis: Heparin 5,000 units q8hr. needs rehab ,daughter updated at bedside today 07/18 Subjective Patient has no new complaints or problems she is disappointed she did not accepted into acute rehab she feels she is got the motivation to want to participate at this point time she is considering a family appeal. It was pointed out that she did have an injury to her right great toe where she feels it was caught on a bed and her nail was pulled from the nail bed there is some mild crusting and eschar does not appear to be overly infected at this time she will benefit from a podiatry consultation in the future. She has previously seen division sales manager in the past Review of Systems ROS: well nourished well developed. No double vision blurry vision No problems with speech or swallowing No palpitations, chest pain or pressure No Wheezing or breathing issues still some dyspnea on exertion No abdominal pain nausea vomiting diarrhea changes in appetite or weight No burning urine urine frequency or changes in color No focal joint pain or muscle pain some right great toe pain due to a nail injury No skin rashes or oral lesions No unusual bruising or bleeding No focused back pain or numbness or loss of strength No changes in memory or confusion Physical Exam Vital Signs (Past 24 Hours): Last Vital Signs Temp 36.5 C 07/19/18 07:18 Pulse 74 07/19/18 07:54 Resp 18 07/19/18 07:54 BP 143/83 H 07/19/18 07:18 Pulse Ox 98 07/19/18 07:54 The patient appeared well nourished and normally developed. Vital signs as documented. She is fatigued and lethargic at times Head exam is unremarkable. normocephalic, atraumatic Neck is without jugular venous distension, thyromegaly, or lymphademopathy Lungs are clear to auscultation and percussion. She has some coarse breath sounds Cardiac exam reveals Rhythm is regular. First and second heart sounds normal. 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 truck driver insulin use: with dedicated intermodal truck driver use Diabetes mellitus type: type 2 Qualified Code(s): E11.9 - Type 2 diabetes mellitus without complications; Z79.4 - prison (current) use of insulin (2) Anemia Anemia type: unspecified type Qualified Code(s): D64.9 - Anemia, unspecified (3) Dysphagia Dysphagia type: unspecified Qualified Code(s): R13.10 - Dysphagia, unspecified (4) Hyperlipidemia Hyperlipidemia type: mixed hyperlipidemia Qualified Code(s): E78.2 - Mixed hyperlipidemia (5) Proteinuria Proteinuria type: other Qualified Code(s): R80.8 - Other proteinuria (6) Hypertension Hypertension type: essential hypertension Qualified Code(s): I10 - Essential (primary) hypertension
[2018-07-19] MEDS: FERROUS SULFATE 325 MG TAB PO SCH ×2 (08:55→21:40)
[2018-07-19] MEDS: CARVEDILOL 25 MG TAB PO SCH ×2 (08:56→21:41)
[2018-07-19] MEDS: predniSONE 20 MG TAB PO SCH (08:57)
[2018-07-19] MEDS: ATORVASTATIN 40 MG TAB PO SCH (08:58)
[2018-07-19] MEDS: CLOPIDOGREL BISULFATE 75 MG TAB PO SCH (08:58)
[2018-07-19] MEDS: AMLODIPINE BESYLATE 5 MG TAB PO SCH (08:58)
[2018-07-19] MEDS: SENNA 8.6 MG TAB PO SCH (09:00)
[2018-07-19] MEDS: INSULIN ASPART 100 UNITS/ML 3 ML PEN SC SCH ×4 (09:05→21:47)
[2018-07-19] MEDS: INSULIN HUMAN NPH SC SCH (09:12)
[2018-07-19] MEDS: POLYETHYLENE (MIRALAX) 17 GM PACK PO SCH (09:20)
[2018-07-19] MEDS: INSULIN GLARGINE SOLOSTAR 100 UNITS/ML 3 ML PEN SC SCH (09:20)
--- NOTE | 2018-07-19 10:26 | Nephrology Progress Note ---
Date of Service July 19, 2018 Assessment & Plan (1) Acute kidney injury: 60-year-old female with acute kidney injury in the setting respiratory failure secondary to pneumonia and ARDS/VDRF. Currently extubated on room air. Developed acute kidney injury secondary to ATN due to sepsis, iodinated contrast administration (CTA), and JEANETTE inhibitor use. Creatinine continues to improved. Continue to monitor renal recovery. Metabolic profile daily while inpatient and twice weekly at discharge. Medications are appropriately dosed for kidney function. She also developed hypercalcemia. History of hyperparathyroidism for several years --- PTH has been 250-300. Previously she was recommended to have a parathyroidectomy however she refused. Blood pressure improved. Renal function showing signs of recovery. Electrolytes remained stable with mild hypercalcemia. (2) CKD (chronic kidney disease), stage III: -- Baseline creatinine ~1.3 mg/dL. -- Baseline A4 proteinuria, 2.8 g/g random sample in November. -- CKD can be attributed to diabetic nephropathy and or possible FSGS. (3) Multifocal pneumonia: -- Clinically improving. Patient has completed antibiotic therapy (4) Anemia: -- Recommend transfusion to maintain Hgb > or = 8.0 (5) Hyperparathyroidism: (6) Metabolic acidosis: Giovanni Mathis was seen & examined in her hospital room this morning. She denies dyspnea. She denies pain. No urinary complaints. Review of Systems All systems reviewed & are unremarkable except as noted in HPI & below Physical Exam Vital Signs (Past 24 Hours): Last Vital Signs Temp 36.5 C 07/19/18 07:18 Pulse 74 07/19/18 07:54 Resp 18 07/19/18 07:54 BP 143/83 H 07/19/18 07:18 Pulse Ox 98 07/19/18 07:54 Constitutional: + obese; no acute distress and not edematous Eyes: no scleral abnormality and no corneal abnormality Neck: trachea midline and + thick neck Respiratory: Auscultation: no rales and no rhonchi Cardiovascular: Heart Sounds: normal S1 and normal S2; no murmur Vessels: no JVD Extremities: no edema Gastrointestinal (Abdomen): Inspection/Auscultation: + abdomen distended and normal bowel sounds Percussion/Palpation: abdomen soft Musculoskeletal: Extremities: no cyanosis, no clubbing and no petechiae Skin: no rashes Neurologic: Motor/Sensory: no tremor and no asterixis Results & Data Laboratory Results Laboratory Results - last 24 hr 07/15/18 07/18/18 07/18/18 14:34 11:34 17:38 Sodium Potassium Chloride Carbon Dioxide Anion Gap BUN Creatinine Est Cr Clr Drug Dosing Est GFR ( Amer) Est GFR (Non-Af Amer) BUN/Creatinine Ratio Glucose POC Glucose 117 H 78 Calcium Phosphorus Albumin Crossmatch See Detail 07/18/18 07/18/18 07/19/18 20:36 22:32 06:59 Sodium 141 Potassium Chloride 110 H Carbon Dioxide 26 Anion Gap 6.0 BUN 59 H Creatinine 1.78 H Est Cr Clr Drug Dosing 43.5 Est GFR ( Amer) 34.8 Est GFR (Non-Af Amer) 30.0 BUN/Creatinine Ratio 33.3 H Glucose 70 POC Glucose 97 82 Calcium 9.7 Phosphorus 2.9 Albumin 2.3 L Crossmatch 07/19/18 07/19/18 07:38 08:03 Sodium Potassium 3.9 Chloride Carbon Dioxide Anion Gap BUN Creatinine Est Cr Clr Drug Dosing Est GFR ( Amer) Est GFR (Non-Af Amer) BUN/Creatinine Ratio Glucose POC Glucose 82 Calcium Phosphorus Albumin Crossmatch (1) Anemia Anemia type: unspecified type Qualified Code(s): D64.9 - Anemia, unspecified
[2018-07-19] MEDS: PANTOprazole 40 MG TAB PO SCH ×2 (13:28→21:42)
--- NOTE | 2018-07-19 15:23 | Pharmacy Report ---
Glycemic Control Progress Note - Date of Service July 19, 2018 - Scope Glycemic Pharmacist consulted for glycemic control to write orders per [facility] inpatient glycemic control protocol. - Objective Accuchecks BSG(last 24 hours):: 07/18/18 07/18/18 07/18/18 17:38 20:36 22:32 Glucose POC Glucose 78 97 82 07/19/18 07/19/18 07/19/18 06:59 07:38 11:54 Glucose 70 POC Glucose 82 80 - Recent Pertinent Medications The patient is currently receiving: * Basal insulin: Lantus 30 units every 12 hours in the AM * Correctional Insulin: Novolog Correction per scale ACHS Goal Range: Low 110 mg/dL - High 140 mg/dL Correction Factor: 10 mg/dL/unit * Prandial insulin: Per carb ratio of 1 unit per 5 grams CHO consumed - Outpatient Anti-Diabetic Meds Lantus 30 units daily Novolog 09/10/09 with meals TDD = 54 units /day - Assessment & Plan ASSESSMENT: * See progress note from 07/01/18 for more background info, in short: * Pt receiving SQ basal bolus insulin regimen for hyperglycemia secondary to baseline DM (outpatient regimen on hold) and on prednisone 40 mg daily * Patient is currently receiving an average of 82 units of insulin per day * 65 units of basal insulin (30 units of Lantus and 35 units of NPH) * 17 units of prandial/correctional insulin * BSGs ranging 78 - 141 mg/dl over the past 24hrs * Changes needed to insulin regimen: * AM Fasting BSG = 82 mg/dl. This is below goal range for patient based on inpatient targets and co-morbidities. Therefore Basal insulin will be decreased by 20% to 25 units daily. NPH was not reduced as patient remained stable throughout the day and the goal of NPH is to cover post-prandial spikes of prednisone. * Post-prandial BSGs did trend downwards yesterday. Expected this was secondary to excessive carbohydrate coverage. Loosened to weight-based stress of 2 for breakfast and held carbohydrate coverage with lunch as patient continued at the same BSG of 82 mg/dL. Loosened further for supper with a slightly higher goal range. * Total daily dose = ~70 units. PLAN FOR INPATIENT GLYCEMIC CONTROL: * Decreasing Lantus to 25 units SQ AM * LOOSENING correction factor to 30 mg/dl/unit * LOOSENING carb ratio to 1 unit per 10 grams CHO consumed * CHANGING goal range to Low 140 mg/dL - High 180 mg/dL Thank you.
[2018-07-19] MEDS: ACETAMINOPHEN 500 MG TAB PO PRN (22:56)
[2018-07-20] MEDS: HydrALAZINE TAB 50 MG TAB PO SCH ×3 (06:07→21:05)
[2018-07-20] MEDS: HEPARIN SOD 5,000 UNIT/0.5 ML VIAL SQ SCH ×3 (06:08→21:09)
[2018-07-20] MEDS: ALBUT/IPRATROP 3MG/0.5MG NEB 3 ML VIAL NEB SCH ×4 (06:59→19:12)
[2018-07-20 07:13] LABS: Albumin Level 2.3 gm/dl (3.4-5.0); BUN Creatinine Ratio 28.6 (10-20); Calcium 9.3 mg/dl (8.5-10.1); Creatinine Clr Calc Pharmacy 43.5 ml/min; Est GFR (African American) 34.8; Phosphorus 2.6 mg/dl (2.5-4.9); Potassium 4.1 mmol/L (3.5-5.1)
[2018-07-20] MEDS: CARVEDILOL 25 MG TAB PO SCH ×2 (07:42→21:07)
[2018-07-20] MEDS: ATORVASTATIN 40 MG TAB PO SCH (07:42)
[2018-07-20] MEDS: AMLODIPINE BESYLATE 5 MG TAB PO SCH (07:42)
[2018-07-20] MEDS: FERROUS SULFATE 325 MG TAB PO SCH ×2 (07:42→21:06)
[2018-07-20] MEDS: PANTOprazole 40 MG TAB PO SCH ×2 (07:43→21:20)
[2018-07-20] MEDS: CLOPIDOGREL BISULFATE 75 MG TAB PO SCH (07:43)
[2018-07-20] MEDS: POLYETHYLENE (MIRALAX) 17 GM PACK PO SCH (07:50)
[2018-07-20] MEDS: SENNA 8.6 MG TAB PO SCH (07:52)
[2018-07-20] MEDS: INSULIN ASPART 100 UNITS/ML 3 ML PEN SC SCH ×4 (08:54→21:08)
[2018-07-20] MEDS: predniSONE 10 MG TABLET PO SCH (08:54)
[2018-07-20] MEDS: INSULIN GLARGINE SOLOSTAR 100 UNITS/ML 3 ML PEN SC SCH (08:57)
[2018-07-20] MEDS: INSULIN HUMAN NPH SC SCH (08:58)
--- NOTE | 2018-07-20 10:16 | Nephrology Progress Note ---
Date of Service July 20, 2018 Assessment & Plan (1) Acute kidney injury: ATN due to sepsis, iodinated contrast administration (CTA), and JEANETTE inhibitor use. Creatinine stable at 1.78 mg/dL. Medications are appropriately dosed for kidney function. History of hyperparathyroidism for several years --- PTH has been 250-300. Previously she was recommended to have a parathyroidectomy however she refused. Calcium remains acceptable. Blood pressure improved. Renal function showing signs of recovery. Electrolytes remained stable with mild hypercalcemia. Outpatient follow up to be arranged in the nephrology clinic within 2 weeks of discharge. (2) CKD (chronic kidney disease), stage III: -- Baseline creatinine ~1.3 mg/dL. -- Baseline A4 proteinuria, 2.8 g/g random sample in November. -- CKD can be attributed to diabetic nephropathy and or possible FSGS. (3) Multifocal pneumonia: (4) Anemia: (5) Hyperparathyroidism: (6) Metabolic acidosis: Subjective Review of Systems All systems reviewed & are unremarkable except as noted in HPI & below Delfina was seen & examined in her hospital room this morning. She denies dyspnea. She denies pain. No urinary complaints. Physical Exam Vital Signs (Past 24 Hours): Last Vital Signs Temp 36.5 C 07/20/18 07:59 Pulse 64 07/20/18 07:59 Resp 20 07/20/18 07:59 BP 135/75 07/20/18 07:59 Pulse Ox 94 07/20/18 07:59 Constitutional: + obese; no acute distress and not edematous Eyes: no scleral abnormality and no corneal abnormality Neck: trachea midline and + thick neck Respiratory: Auscultation: no rales and no rhonchi Cardiovascular: Heart Sounds: normal S1 and normal S2; no murmur Vessels: n o JVD Extremities: no edema Gastrointestinal (Abdomen): Inspection/Auscultation: + abdomen distended and normal bowel sounds Percussion/Palpation: abdomen soft Musculoskeletal: Extremities: no cyanosis, no clubbing and no petechiae Skin: no rashes Neurologic: Motor/Sensory: no tremor and no asterixis Psychiatric: Affect: euthymic affect Results & Data Laboratory Results Laboratory Results - last 24 hr 07/19/18 07/19/18 07/19/18 11:54 16:40 19:51 Sodium Potassium Chloride Carbon Dioxide Anion Gap BUN Creatinine Est Cr Clr Drug Dosing Est GFR ( Amer) Est GFR (Non-Af Amer) BUN/Creatinine Ratio Glucose POC Glucose 80 122 H 177 H Calcium Phosphorus Albumin 07/20/18 07/20/18 06:02 07:46 Sodium 138 Potassium 4.1 Chloride 108 H Carbon Dioxide 26 Anion Gap 4.0 BUN 51 H Creatinine 1.78 H Est Cr Clr Drug Dosing 43.5 Est GFR ( Amer) 34.8 Est GFR (Non-Af Amer) 30.0 BUN/Creatinine Ratio 28.6 H Glucose 144 H POC Glucose 150 H Calcium 9.3 Phosphorus 2.6 Albumin 2.3 L (1) Anemia Anemia type: unspecified type Qualified Code(s): D64.9 - Anemia, unspecified
[2018-07-20] MEDS: ACETAMINOPHEN 500 MG TAB PO PRN (13:00)
--- NOTE | 2018-07-20 18:56 | Hospitalist Progress Note ---
Date of Service July 20, 2018 Assessment & Plan (1) Acute respiratory failure with hypoxia: Strength is improved pulmonary status is stabilized 2nd to b/l community-acquired pneumonia and then subsequent development of ARDS (suspected). Acute bronchitis resolved. Patient worsened after admission and transitioned to BiPAP on 07/01. Intubated later on 07/01 after failing BIPAP. Underwent bronch by Dr. Carcamo in the ICU with negative cultures. Extubated successfully on 07/07/18. Follow-up CT chest after extubation with marked improvement in infiltrates from prior CT. NO new areas of infiltrate. Continue to wean prednisone (2) Vocal cord paralysis syndrome: Appreciate ENT consultation (Dr Azul). Direct laryngoscopy performed showing a unilateral vocal cord paralysis. Dr. Azul hopeful that in 3-4 weeks the issue will resolve. Will need outpatient f/u with Dr. Azul. This was likely due to intubation attempts, prolonged intubation/vent dependency, etc Patient has persistent minor hoarseness but no swallowing problems\ Her dysphonia is better every day (3) Anemia: s/p 1 unit PRBCs now remains with stable H/H since. Cont ferrous sulfate 325mg BID. A component of constipation associated with it (4) Multifocal pneumonia: bilateral. Remains resolved Associated with acute hypoxic respiratory failure and concern for ARDS. (5) Hypertension: Continue coreg along with amlodipine and hydralazine. Renal artery dopplers negative for secondary causes of hypertension. (6) Diabetes: appreciate pharmacy assistance/management. pharmacy adjusting insulin. Glargine daily plus NPH daily this should improve as steroids are reduced (7) Hypercalcemia: 2nd to hyperparathyroidism. (8) Hyperparathyroidism: primary, known history of such. (9) Acute kidney injury: Likely sepsis-associated ATN. JEANETTE inhibitor use and IV contrast may have contributed as well. (10) Severe sepsis: resolved. (11) Non-ischemic cardiomyopathy: history of such -clinically stable (12) Elevated troponin: myocardial demand ischemia. (13) History of CVA (cerebrovascular accident): History of left basal ganglia CVA in September 2016. Plavix had been on hold - Fecal occult neg; platelets normal -- thus, resumed plavix. For secondary disease prevention CT head this admission negative for acute stroke. (14) Hyperlipidemia: statin (15) CKD (chronic kidney disease), stage III: baseline Cr about 1.3. (16) Thrombocytopenia: Likely due to severe sepsis. resolved. (17) Proteinuria: 24 hour urine protein with 1 gram. Proteinuria likely contributing to hypoalbuminemia. Appreciate nephrology assistance. no significant M spike on recent SPEP. (18) Morbid obesity with BMI of 40.0-44.9, adult: BMI 40 (19) Hypoalbuminemia: severe. cont protein supplements, etc. albumin HAS improved in the last week w/ improved eating (20) Dysphagia: appreciate speech assistance. on modified diet. Dr. Azul performed laryngoscopy several days ago. considerable swelling of arytenoids and vocal cords with partial paralysis of one vocal cord. suspected to be from trauma from intubation, prolonged intubation, etc. will need time for recovery - may take up to 1 month in duration. video swallow planned before discharge, I spoke to speech therapy on 07/18. continue to tolerate modified diet. (21) Oral candidiasis: resolved completed diflucan course and diflucan stopped (22) DVT prophylaxis: Heparin 5,000 units q8hr. needs rehab ,daughter updated at bedside today 07/18 Subjective Patient continues to improve has no complaints or problems breathing is improved Review of Systems Review of Systems: ROS: well nourished well developed. She is weak and fatigued No double vision blurry vision No problems with speech or swallowing No palpitations, chest pain or pressure No Wheezing or breathing issues becomes dyspneic on exertion No abdominal pain nausea vomiting diarrhea changes in appetite or weight No burning urine urine frequency or changes in color No focal joint pain or muscle pain No skin rashes or oral lesions No unusual bruising or bleeding No focused back pain or numbness or No changes in memory or confusion Physical Exam Physical Exam: The patient appeared well nourished and normally developed. Vital signs as documented. Head exam is unremarkable. normocephalic, atraumatic Neck is without jugular venous distension, thyromegaly, or lymphademopathy Lungs are clear to auscultation and percussion. Cardiac exam reveals Rhythm is regular. First and second heart sounds normal. Abdominal exam reveals normal bowel sounds, no masses, no organomegaly Extremities are nonedematous and both pedal pulses are present Neurologic exam is A&Ox3, no focal deficits, strength is reduced globally Psychologically seems neither anxious or depressed Skin is warm Dry without bruises or lesions Results & Data Vital Signs (Past 12 Hours) Vital Signs Temp Pulse Resp BP BP Pulse Ox 04/17/19 14:45 36.1 C L 68 20 132/47 L 95 07/20/18 07:59 36.5 C 64 20 135/75 94 07/20/18 07:00 65 18 95 (1) Diabetes Diabetes mellitus complication status: without complication Diabetes mellitus proposal manager writer insulin use: with proposal manager writer use Diabetes mellitus type: type 2 Qualified Code(s): E11.9 - Type 2 diabetes mellitus without complications; Z79.4 - snf (current) use of insulin (2) Anemia Anemia type: unspecified type Qualified Code(s): D64.9 - Anemia, unspecified (3) Dysphagia Dysphagia type: unspecified Qualified Code(s): R13.10 - Dysphagia, unspecified (4) Hyperlipidemia Hyperlipidemia type: mixed hyperlipidemia Qualified Code(s): E78.2 - Mixed hyperlipidemia (5) Proteinuria Proteinuria type: other Qualified Code(s): R80.8 - Other proteinuria (6) Hypertension Hypertension type: essential hypertension Qualified Code(s): I10 - Essential (primary) hypertension
[2018-07-21] MEDS: ACETAMINOPHEN 500 MG TAB PO PRN ×2 (00:01→16:24)
[2018-07-21] MEDS: HEPARIN SOD 5,000 UNIT/0.5 ML VIAL SQ SCH ×3 (05:54→21:37)
[2018-07-21] MEDS: HydrALAZINE TAB 50 MG TAB PO SCH ×3 (05:54→21:37)
[2018-07-21] MEDS: ALBUT/IPRATROP 3MG/0.5MG NEB 3 ML VIAL NEB SCH ×4 (07:26→19:02)
[2018-07-21 08:10] LABS: Albumin Level 2.4 gm/dl (3.4-5.0); BUN Creatinine Ratio 26.6 (10-20); Calcium 9.6 mg/dl (8.5-10.1); Creatinine Clr Calc Pharmacy 47.5 ml/min; Est GFR (African American) 38.7; Est GFR (Non-African American) 33.4; Phosphorus 2.3 mg/dl (2.5-4.9); Potassium 3.9 mmol/L (3.5-5.1)
[2018-07-21] MEDS: POLYETHYLENE (MIRALAX) 17 GM PACK PO SCH (08:36)
[2018-07-21] MEDS: CLOPIDOGREL BISULFATE 75 MG TAB PO SCH (08:38)
[2018-07-21] MEDS: predniSONE 10 MG TABLET PO SCH (08:38)
[2018-07-21] MEDS: PANTOprazole 40 MG TAB PO SCH ×2 (08:38→21:37)
[2018-07-21] MEDS: SENNA 8.6 MG TAB PO SCH (08:38)
[2018-07-21] MEDS: ATORVASTATIN 40 MG TAB PO SCH (08:39)
[2018-07-21] MEDS: AMLODIPINE BESYLATE 5 MG TAB PO SCH (08:39)
[2018-07-21] MEDS: FERROUS SULFATE 325 MG TAB PO SCH ×2 (08:39→21:37)
[2018-07-21] MEDS: CARVEDILOL 25 MG TAB PO SCH ×2 (08:39→21:37)
[2018-07-21] MEDS: INSULIN GLARGINE SOLOSTAR 100 UNITS/ML 3 ML PEN SC SCH (08:39)
[2018-07-21] MEDS: INSULIN HUMAN NPH SC SCH (08:40)
[2018-07-21] MEDS: INSULIN ASPART 100 UNITS/ML 3 ML PEN SC SCH ×4 (08:41→21:38)
--- NOTE | 2018-07-21 09:39 | Pharmacy Report ---
Pharmacy Glycemic Short Note 2 - Date of Service July 21, 2018 - Glycemic Short BSG Results (Last 24 hours): 07/20/18 07/20/18 07/20/18 11:55 16:56 20:42 Glucose POC Glucose 92 105 H 145 H 07/21/18 07/21/18 07:03 07:39 Glucose 134 H POC Glucose 146 H ASSESSMENT: * Pt is currently receiving ~ 73 units of insulin per day with excellent glycemic control. * Blood sugar dropped to 92mg/dl prior to lunch yesterday, and NPH was decreased for today's dose to prevent hypoglycemia. * Goal range also loosened to 140-180mg/dl to prevent hypoglycemia. * Expect daily insulin requirement to decrease with each step down in steroid dosing * Prednisone at 30mg daily * Pt insulin Rx = basal insulin {Lantus}, bolus insulin {NovoLog}, and steroid hyperglycemia insulin {NPH} * NPH insulin is used to counteract the hyperglycemic effect of prednisone. The rationale for this approach is that the pharmacodynamics profile of NPH, with a peak effect of 4-8hrs and duration of action of 12-16hrs, mirrors the pharmacodynamics of prednisone. NPH should be dosed at the same time that prednisone is given * The dose of NPH given is dependent on the steroid dose given * NPH dosing above is given in addition to patients basal insulin needs * Typically, patients will also need rapid-acting insulin with meals * Will continue to titrate insulin dosing with each step down in steroid dosing PLAN FOR INPATIENT GLYCEMIC CONTROL: * Lantus: * Lantus 25 units SQ daily * NPH 25 units SQ daily to be given at the same time as prednisone * Novolog SQ ACHS * Goal range 140-180mg/dl * correction factor 30 mg/dl/unit * carb ratio 1 unit per 10 grams CHO consumed
[2018-07-21 15:20] VITALS: TEMP 98.2
--- NOTE | 2018-07-21 16:11 | Nephrology Progress Note ---
Date of Service July 21, 2018 Assessment & Plan (1) Acute kidney injury: ATN due to sepsis, iodinated contrast administration (CTA), and JEANETTE inhibitor use. Kidney function continues to improve. Creatinine approaching baseline. Nephrology will sign-off. Nephrology follow up to be arranged in my office within 2 weeks of discharge. Please check metabolic profile within 1 week of discharge and fax results to my office [phone]). Medications are appropriately dosed for kidney function. History of hyperparathyroidism for several years --- PTH has been 250-300. Previously she was recommended to have a parathyroidectomy however she refused. Calcium remains acceptable. Blood pressure acceptable Electrolytes remained stable with mild hypercalcemia. (2) CKD (chronic kidney disease), stage III: Baseline creatinine ~1.3 mg/dL. Baseline A4 proteinuria, 2.8 g/g random sample in November. CKD can be attributed to diabetic nephropathy and or possible FSGS. (3) Multifocal pneumonia: (4) Anemia: (5) Hyperparathyroidism: (6) Metabolic acidosis: Subjective No events overnight. Delfina feels well. Breathing comfortably. Weakness improving. Review of Systems Review of Systems: All systems reviewed & are unremarkable except as noted in HPI & below Physical Exam Constitutional: + obese; no acute distress and not edematous Eyes: no scleral abnormality and no corneal abnormality Neck: trachea midline and + thick neck Respiratory: Auscultation: no rales and no rhonchi Cardiovascular: Heart Sounds: normal S1 and normal S2; no murmur Vessels: no JVD Extremities: no edema Gastrointestinal (Abdomen): Inspection/Auscultation: + abdomen distended and normal bowel sounds Percussion/Palpation: abdomen soft Musculoskeletal: Extremities: no cyanosis, no clubbing and no petechiae Skin: no rashes Neurologic: Motor/Sensory: no tremor and no asterixis Psychiatric: Affect: euthymic affect Results & Data Vital Signs (Past 12 Hours) Vital Signs Temp Pulse Resp BP Pulse Ox 07/21/18 15:19 36.8 C 74 20 158/67 H 94 07/21/18 07:18 36.7 C 71 20 174/80 H 92 Laboratory Results Laboratory Results - last 24 hr 07/20/18 07/20/18 07/21/18 16:56 20:42 07:03 Sodium 141 Potassium 3.9 Chloride 110 H Carbon Dioxide 24 Anion Gap 8.0 BUN 43 H Creatinine 1.63 H Est Cr Clr Drug Dosing 47.5 Est GFR ( Amer) 38.7 Est GFR (Non-Af Amer) 33.4 BUN/Creatinine Ratio 26.6 H Glucose 134 H POC Glucose 105 H 145 H Calcium 9.6 Phosphorus 2.3 L Albumin 2.4 L 07/21/18 07/21/18 07:39 11:21 Sodium Potassium Chloride Carbon Dioxide Anion Gap BUN Creatinine Est Cr Clr Drug Dosing Est GFR ( Amer) Est GFR (Non-Af Amer) BUN/Creatinine Ratio Glucose POC Glucose 146 H 139 H Calcium Phosphorus Albumin (1) Anemia Anemia type: unspecified type Qualified Code(s): D64.9 - Anemia, unspecified
--- NOTE | 2018-07-21 18:11 | Hospitalist Progress Note ---
Date of Service July 21, 2018 Assessment & Plan (1) Acute respiratory failure with hypoxia: Resolved strength is improved pulmonary status remains stabilized 2nd to b/l community-acquired pneumonia and then subsequent development of ARDS (suspected). Patient worsened after admission and transitioned to BiPAP on 07/01. Intubated later on 07/01 after failing BIPAP. Underwent bronch by Dr. Carcamo in the ICU with negative cultures. Extubated successfully on 07/07/18. Follow-up CT chest after extubation with marked improvement in infiltrates from prior CT. NO new areas of infiltrate. Continue to wean prednisone (2) Vocal cord paralysis syndrome: Appreciate ENT consultation (Dr Azul). Direct laryngoscopy performed showing a unilateral vocal cord paralysis. Dr. Azul hopeful that in 3-4 weeks the issue will resolve. Will need outpatient f/u with Dr. Azul. This was likely due to intubation attempts, prolonged intubation/vent dependency, etc Patient has persistent minor hoarseness but no swallowing problems\ Her dysphonia is resolved (3) Anemia: s/p 1 unit PRBCs now remains with stable H/H since. Cont ferrous sulfate 325mg BID. Constipation is improved (4) Multifocal pneumonia: resolved Associated with acute hypoxic respiratory failure and concern for ARDS. (5) Hypertension: Continue coreg along with amlodipine and hydralazine. Renal artery dopplers negative for secondary causes of hypertension. (6) Diabetes: appreciate pharmacy assistance/management. pharmacy adjusting insulin. Glargine daily plus NPH daily this should improve as steroids are reduced (7) Hypercalcemia: 2nd to hyperparathyroidism. (8) Hyperparathyroidism: primary, known history of such. (9) Acute kidney injury: Likely sepsis-associated ATN. Resolved JEANETTE inhibitor use and IV contrast may have contributed as well. (10) Severe sepsis: resolved. (11) Non-ischemic cardiomyopathy: history of such -clinically stable (12) Elevated troponin: myocardial demand ischemia. (13) History of CVA (cerebrovascular accident): History of left basal ganglia CVA in September 2016. P Fecal occult neg; platelets normal -- thus, resumed plavix. For secondary disease prevention CT head this admission negative for acute stroke. (14) Hyperlipidemia: statin (15) CKD (chronic kidney disease), stage III: baseline Cr about 1.3. (16) Thrombocytopenia: Likely due to severe sepsis. resolved. (17) Proteinuria: 24 hour urine protein with 1 gram. Proteinuria likely contributing to hypoalbuminemia. Appreciate nephrology assistance. no significant M spike on recent SPEP. (18) Morbid obesity with BMI of 40.0-44.9, adult: BMI 40 (19) Hypoalbuminemia: Treated with protein supplements, etc. albumin HAS improved in the last week w/ improved eating (20) Dysphagia: appreciate speech assistance. on modified diet. Dr. Azul performed laryngoscopy several days ago. considerable swelling of arytenoids and vocal cords with partial paralysis of one vocal cord. suspected to be from trauma from intubation, prolonged intubation, etc. will need time for recovery - may take up to 1 month in duration. Portions of her voice is improving daily we will continue to follow up with Dr. Szymanski as an outpatient (21) Oral candidiasis: resolved completed diflucan course and diflucan stopped (22) DVT prophylaxis: Heparin 5,000 units q8hr. Subjective Patient continues to do well she is having no real shortness of breath she is we can participate in physical therapy looking forward to her eventually getting some subacute rehabilitation Review of Systems Review of Systems: ROS: well nourished well developed. No double vision blurry vision No problems with speech or swallowing No palpitations, chest pain or pressure No Wheezing or breathing issues No abdominal pain nausea vomiting diarrhea No burning urine urine frequency or changes in color No focal joint pain or muscle pain No skin rashes or oral lesions No unusual bruising or bleeding No focused back pain or numbness or loss of strength No changes in memory or confusion Physical Exam Physical Exam: The patient appeared well nourished and normally developed. Vital signs as documented. Head exam is unremarkable. normocephalic, atraumatic Neck is without jugular venous distension, thyromegaly, or lymphademopathy Lungs are clear to auscultation and percussion. Cardiac exam reveals Rhythm is regular. First and second heart sounds normal. Abdominal exam reveals normal bowel sounds, no masses, no organomegaly Extremities are nonedematous and both pedal pulses are present Neurologic exam is A&Ox3, no focal deficits, strength is equal bilateral Psychologically seems neither anxious or depressed Skin is warm Dry without bruises or lesions Results & Data Vital Signs (Past 12 Hours) Vital Signs Temp Pulse Resp BP Pulse Ox 07/21/18 15:19 36.8 C 74 20 158/67 H 94 07/21/18 07:18 36.7 C 71 20 174/80 H 92 (1) Diabetes Diabetes mellitus complication status: without complication Diabetes mellitus residential insulin use: with residential use Diabetes mellitus type: type 2 Qualified Code(s): E11.9 - Type 2 diabetes mellitus without complications; Z79.4 - half-way (current) use of insulin (2) Anemia Anemia type: unspecified type Qualified Code(s): D64.9 - Anemia, unspecified (3) Dysphagia Dysphagia type: unspecified Qualified Code(s): R13.10 - Dysphagia, unspecified (4) Hyperlipidemia Hyperlipidemia type: mixed hyperlipidemia Qualified Code(s): E78.2 - Mixed hyperlipidemia (5) Proteinuria Proteinuria type: other Qualified Code(s): R80.8 - Other proteinuria (6) Hypertension Hypertension type: essential hypertension Qualified Code(s): I10 - Essential (primary) hypertension
[2018-07-21] MEDS ORDERED: BISACODYL 5 MG TABEC PO PRN (21:37)
[2018-07-22] MEDS: HEPARIN SOD 5,000 UNIT/0.5 ML VIAL SQ SCH (06:16)
[2018-07-22] MEDS: HydrALAZINE TAB 50 MG TAB PO SCH (06:16)
[2018-07-22] MEDS: ALBUT/IPRATROP 3MG/0.5MG NEB 3 ML VIAL NEB SCH (07:24)
[2018-07-22] MEDS: CLOPIDOGREL BISULFATE 75 MG TAB PO SCH (07:46)
[2018-07-22] MEDS: AMLODIPINE BESYLATE 5 MG TAB PO SCH (07:46)
[2018-07-22] MEDS: ATORVASTATIN 40 MG TAB PO SCH (07:46)
[2018-07-22] MEDS: CARVEDILOL 25 MG TAB PO SCH (07:47)
[2018-07-22] MEDS: FERROUS SULFATE 325 MG TAB PO SCH (07:47)
[2018-07-22] MEDS: PANTOprazole 40 MG TAB PO SCH (07:48)
[2018-07-22] MEDS: SENNA 8.6 MG TAB PO SCH (07:48)
[2018-07-22] MEDS: POLYETHYLENE (MIRALAX) 17 GM PACK PO SCH (07:48)
[2018-07-22] MEDS: INSULIN ASPART 100 UNITS/ML 3 ML PEN SC SCH (08:31)
[2018-07-22] MEDS: INSULIN GLARGINE SOLOSTAR 100 UNITS/ML 3 ML PEN SC SCH (08:32)
[2018-07-22] MEDS: INSULIN HUMAN NPH SC SCH (08:32)
[2018-07-22 08:37] VITALS: PULSE 83; O2SAT 95
[2018-07-22] MEDS ORDERED: predniSONE 20 MG TAB PO SCH (09:00)
[2018-07-22 10:47] VITALS: BP 159/69
--- NOTE | 2018-07-22 18:42 | Discharge Summary ---
Date of Service July 22, 2018 Admission HPI Per Admitting Provider Patient is a 62yo female with history of DM, HTN, Lyme disease s/p appropriate therapy with Doxycycline, CHF thought to be secondary to Avandia with EF of 15% which subsequently recovered to 50%. Patient states that she has had a sinus infection for 4 months. No antibiotics given. On Wednesday she coughed up some bloody mucus and subsequently had a bloody nose. Patient saw Dr. Montes on Wednesday and was prescribed Amoxicillin. She reports occasional hemoptysis with streaks of blood over the last 4 months during her sinus infection. She reports chest congestion, sore throat, dizziness and presyncope over the last 4 months as well. Increase in SOB/HUBBARD, hot and cold intolerance, 7# weight gain over the last 7 months, decreased exercise tolerance. Patient has not taken her medications for the last week due to nausea. ER Course: Tylenol, Azithromycin, Cefepime, Zofran, NSS Principal Diagnosis Complicated pneumonia as evidenced by requiring ventilator support Marked deconditioning Discharge Exam Constitutional well developed and average body habitus Eyes no conjunctival abnormality and no scleral abnormality Neck normal visual inspection and trachea midline Respiratory normal respiratory effort; no respiratory distress Auscultation: lungs clear to auscultation bilaterally Cardiovascular RRR, no murmur, no edema Gastrointestinal (Abdomen) normal bowel sounds, soft, nontender, no hepatosplenomegaly Musculoskeletal no cyanosis or clubbing, extremities motor strength 5/5 Discharge Data Allergies Allergy/AdvReac Type Severity Reaction Status Date / Time dulaglutide [From [facility]] Allergy Hives Unverified 06/30/18 13:27 erythromycin base AdvReac Intermediate VOMITTING Unverified 06/30/18 13:27 Consultations 06/30/18 14:22 ED Decision to Admit Stat 07/01/18 08:13 Consult Pulmonology Routine 07/01/18 09:07 Consult Cardiology Routine 07/01/18 16:01 Consult Geriatric Social Worker Routine 07/01/18 22:27 Consult Nephrology Routine 07/10/18 08:31 Consult Gastroenterology Routine 07/12/18 06:45 Consult Otolaryngology (Head and Neck) Routine Ordered Studies 06/30/18 18:06 CT chest wo con Routine US venous doppler LE LT Routine 07/01/18 19:02 US point of care ultrasound Routine 07/01/18 19:53 CT angio chest PE protocol Stat 07/02/18 09:57 US renal/blad retro comp Routine 07/05/18 20:59 CT head/brain wo con Urgent 07/11/18 09:46 US duplex renal artery Routine 07/11/18 14:30 FL video swallow Routine 07/15/18 12:35 CT chest wo con Routine 07/18/18 12:45 FL video swallow Stat 07/18/18 16:31 US venous doppler LE RT Routine Hospital Course (1) Acute respiratory failure with hypoxia: Resolved strength is improved pulmonary status remains stabilized 2nd to b/l community-acquired pneumonia and then subsequent development of ARDS (suspected). Patient worsened after admission and transitioned to BiPAP on 07/01. Intubated later on 07/01 after failing BIPAP. Underwent bronch by Dr. Carcamo in the ICU with negative cultures. Extubated successfully on 07/07/18. Follow-up CT chest after extubation with marked improvement in infiltrates from prior CT. NO new areas of infiltrate. Continue to wean prednisone (2) Vocal cord paralysis syndrome: Appreciate ENT consultation (Dr Azul). Direct laryngoscopy performed showing a unilateral vocal cord paralysis. Dr. Azul hopeful that in 3-4 weeks the issue will resolve. Will need outpatient f/u with Dr. Azul. This was likely due to intubation attempts, prolonged intubation/vent dependency, etc Patient has persistent minor hoarseness but no swallowing problems\ Her dysphonia is resolved (3) Anemia: s/p 1 unit PRBCs now remains with stable H/H since. Cont ferrous sulfate 325mg BID. Constipation is improved (4) Multifocal pneumonia: resolved Associated with acute hypoxic respiratory failure and concern for ARDS. (5) Hypertension: Continue coreg along with amlodipine and hydralazine. Renal artery dopplers negative for secondary causes of hypertension. (6) Diabetes: appreciate pharmacy assistance/management. pharmacy adjusting insulin. Glargine daily plus NPH daily this should improve as steroids are reduced (7) Hypercalcemia: 2nd to hyperparathyroidism. (8) Hyperparathyroidism: primary, known history of such. (9) Acute kidney injury: Likely sepsis-associated ATN. Resolved JEANETTE inhibitor use and IV contrast may have contributed as well. (10) Severe sepsis: resolved. (11) Non-ischemic cardiomyopathy: history of such -clinically stable (12) Elevated troponin: myocardial demand ischemia. (13) History of CVA (cerebrovascular accident): History of left basal ganglia CVA in September 2016. P Fecal occult neg; platelets normal -- thus, resumed plavix. For secondary disease prevention CT head this admission negative for acute stroke. (14) Hyperlipidemia: statin (15) CKD (chronic kidney disease), stage III: baseline Cr about 1.3. (16) Thrombocytopenia: Likely due to severe sepsis. resolved. (17) Proteinuria: 24 hour urine protein with 1 gram. Proteinuria likely contributing to hypoalbuminemia. Appreciate nephrology assistance. no significant M spike on recent SPEP. (18) Morbid obesity with BMI of 40.0-44.9, adult: BMI 40 (19) Hypoalbuminemia: Treated with protein supplements, etc. albumin HAS improved in the last week w/ improved eating (20) Dysphagia: appreciate speech assistance. on modified diet. Dr. Azul performed laryngoscopy several days ago. considerable swelling of arytenoids and vocal cords with partial paralysis of one vocal cord. suspected to be from trauma from intubation, prolonged intubation, etc. will need time for recovery - may take up to 1 month in duration. Portions of her voice is improving daily we will continue to follow up with Dr. Szymanski as an outpatient (21) Oral candidiasis: resolved completed diflucan course and diflucan stopped (22) DVT prophylaxis: Heparin 5,000 units q8hr. Total Time Total Time Spent Total Time Spent (In Minutes): Discharge was preset up the patient required less than 30 minutes to discharge from the hospital Discharge Plan Discharge Items Patient Disposition: Transfer [facility] Fac Reason For Visit: WEAKNESS,HEMOTYSIS Discharge Diagnosis: pneuomnia ARDS respiratory distress with need for ventilation deconditioning Discharge Goals: Decrease discomfort, Diagnostic testing and Improve disease control Activity: As commented below Activity Comment: as per PT Non-emergency contact: Primary Care Provider Call non-emergency contact if: you have any medication questions Follow-up/Referrals: Edilberto Moser MD [Primary Care Provider] - Diet: Regular Addtl Provider Instructions: please be sure to have pcp follow up after release Prescriptions: New amlodipine [Norvasc] 5 mg Tablet 10 mg PO QAM Qty: 90 RF: 0 ferrous sulfate 325 mg (65 mg iron) Tablet,Delayed Release (Dr/Ec) 325 mg PO BID Qty: 60 RF: 0 prednisone 20 mg Tablet 20 mg PO QAM Qty: 10 RF: 0 hydralazine 50 mg Tablet 100 mg PO Q8 Qty: 90 RF: 0 Novolog Flexpen U-100 Insulin 100 unit/mL (3 mL) Insulin Pen 1 units SC ACHS Qty: 15 RF: 0 Lantus Solostar U-100 Insulin 100 unit/mL (3 mL) Insulin Pen 25 unit SC DAILY Qty: 3 RF: 0 sennosides [Senokot] 8.6 mg Tablet 17.2 mg PO QAM Qty: 30 RF: 0 polyethylene glycol 3350 [Miralax] 17 gram Powder In Packet 17 g PO DAILY Qty: 24 RF: 0 pantoprazole 40 mg Tablet,Delayed Release (Dr/Ec) 40 mg PO BID Qty: 30 RF: 0 Continued atorvastatin 80 mg Tablet 80 mg PO DAILY RF: 0 clobetasol 0.05 % Cream 1 applic TOPICAL DIRECTED PRN (Reason: Unknown) RF: 0 clopidogrel [Plavix] 75 mg Tablet 75 mg PO DAILY RF: 0 fluticasone propionate [Flonase Allergy Relief] 50 mcg/actuation [place],Suspension 2 spray INTRANASAL QAM RF: 0 Changed carvedilol [Coreg] 12.5 mg Tablet 50 mg PO BID Qty: 0 RF: 0 Discontinued amoxicillin 500 mg Capsule 500 mg PO QID RF: 0 lisinopril 20 mg Tablet 20 mg PO DAILY RF: 0 spironolactone 25 mg Tablet 25 mg PO DAILY RF: 0 lisinopril-hydrochlorothiazide 20-25 mg Tablet 1 tab PO DAILY RF: 0 Stand-Alone Forms: [facility] Discharge Orders: Discharge Order (Routine); Ordered 07/22/18 Ordered By: Minisetrio Tran Skilled Items Patient informed of condition?: Yes DNR: Yes Discharge Level of Care: Skilled Communicable Disease: No Discharge Prognosis: Stable Admission Data Admit Date/Time: 06/30/18 16:16 Attending Provider: Ministerio Tran Admit Provider: Yasmeen [place] Primary Care Provider: Edilberto Moser Other Providers: Yasmeen [place] ; Ryan Hoover ; Edilberto Fontenot ; Rajesh Carcamo ; Lalita Villatoro ; Conrad Qureshi ; Dahiana Azul ; Chris Mcgraw Service: Medical Other Interventions: Discharge Summary Assessment (RN) Last Done: 07/22/18 10:45 DC Date/Time DO NOT enter until pt leaves facility: 07/22/18 12:29
--- NOTE | 2018-07-26 13:15 | Coding Query ---
PRESENT ON ADMISSION QUERY To promote full compliance with coding requirements relating to pateint care, physician participation is requested in all cases of patent agent uncertainty. Please assist us with the question(s) below: Please place an X within the parenthesis (x). The following diagnosis listed in this patient's medical record require physician assistance to determine if they were present on admission (POA) or not. Please advise for each diagnosis whether it was present on admission, not present on admission, or if it was clinically undetermined. 1. SEPSIS (documentation of Sepsis begins 07/01/18 but patient was admitted 06/30/18 with no documentation of Sepsis on H&P, note that Dr. Mcgraw's 07/04 Progress Note shows Severe Sepsis was not present on admission but this query is regarding the Sepsis only, not the Severe Sepsis) (X ) Present On Admission ( ) Not Present On Admission ( ) Clinically Undetermined Thank you Suma Geiger *Definition of the present on admission (POA)-Present on admission is defined as present at the time the order for inpatient admission occurs. Conditions that develop during an outpatient encounter prior to a written order for inpatient admission (including emergency department, observation, or outpatient surgery) are considered present on admission. Sepsis present on admission MTDD
== END 2018-07-22 12:29 | DRG 870 ==
LOC: ED 12:22 → SUATTDRO 16:16 → 4E 16:16 → 2S 07-01 10:39 → 1E 07-01 16:09 → 2S 07-09 14:29 → 4W 07-15 15:44

== ENCOUNTER 2019-01-20 14:18 | Inpatient (IN) ==
[2019-01-20] MEDS ORDERED: NITROGLYCERIN SL 0.4 MG/TAB TAB SL STA ×2 (15:30→16:18)
[2019-01-20] MEDS ORDERED: FUROSEMIDE 40 MG/4 ML VIAL IV STA (15:30)
[2019-01-20] MEDS ORDERED: NITROGLYCERIN 2% OINTMENT 30GM TUBE EXT STA (15:30)
[2019-01-20 15:37] LABS: Basophils # (auto) 0.05 K/uL (0-0.2); Basophils % (auto) 0.6 %; Eosinophils # (auto) 0.29 K/uL (0-0.5); Eosinophils % (auto) 3.6 %; Hematocrit (blood only) 34.1 % (37-47); Immature Granulocytes # (auto) 0.01 K/uL (0.00-0.02); Immature Granulocytes % (auto) 0.1 %; Lymphocytes # (auto) 1.64 K/uL (1.2-3.4); Lymphocytes % (auto) 20.5 %; Mean Corpuscular Hgb Conc 32.3 g/dL (32-36); Mean Corpuscular Volume 83.8 fL (80-100); Mean Platelet Volume 9.9 fL (7.4-10.4); Monocytes # (auto) 0.55 K/uL (0.11-0.59); Monocytes % (auto) 6.9 %; Neutrophils # (auto) 5.47 K/uL (1.4-6.5); Neutrophils % (auto) 68.3 %; Platelet Count 242 K/uL (130-400); RDW Coefficient of Variation 14.7 % (11.5-14.5); RDW Standard Deviation 45.1 fL (36.4-46.3); Red Blood Count 4.07 M/uL (4.2-5.4); White Blood Count 8.01 K/uL (4.8-10.8)
[2019-01-20 15:45] LABS: Albumin Level 2.4 gm/dl (3.4-5.0); Calcium 9.5 mg/dl (8.5-10.1); Creatinine Clr Calc Pharmacy 43.5 ml/min; Est GFR (African American) 37.1; Magnesium 1.9 mg/dl (1.8-2.4); Potassium 3.1 mmol/L (3.5-5.1)
[2019-01-20 16:00] LABS: Partial Thromboplastin Ratio 0.8; Partial Thromboplastin Time 22.5 Seconds (21.0-31.0); Prothrombin Time 10.3 Seconds (9.0-12.0)
--- NOTE | 2019-01-20 16:04 | XRay Report ---
XR chest 1V portable CLINICAL HISTORY: Dyspnea COMPARISON STUDY: 08/20/2018 FINDINGS: The heart remains borderline enlarged. There is persistent elevation of interstitium consis tent with mild congestive failure/fluid overload. There are trace pleural effusions. There are left b asilar airspace opacities, progressive atelectatic versus infectious/inflammatory[ IMPRESSION: 1. Radiographic evidence of mild congestive failure/fluid overload 2. Trace pleural effusions 3. Left lower lung zone airspace opacities, atelectatic versus infectious/inflammatory Electronically signed by: Jordan Armando M.D. 01/20/2019 4:03 PM
[2019-01-20 16:11] LABS: Albumin Globulin Ratio 0.6 (0.9-2); Bilirubin,Total 0.3 mg/dl (0.2-1); Globulin 4.1 gm/dl (2.5-4.0); Total Protein 6.5 gm/dl (6.4-8.2); Troponin I 0.024 ng/ml (0-0.045)
[2019-01-20 16:56] LABS: Appearance Urine Clear (Clear); Bilirubin Urine Negative (Negative); Blood Urine 2+ (Negative); Color Urine Yellow; Glucose Urine UA 1+ (Negative); Ketones Urine Negative (Negative); Leukocyte Esterase Urine Negative (Negative); Nitrite Urine Negative (Negative); Protein Urine 3+ (Negative); Urobilinogen Urine Negative (Negative); pH Urine 6.5 (4.5-7.5)
[2019-01-20 17:12] LABS: Bacteria Urine Negative (Negative); Epithelial Cell Urine >30 /lpf (0-5)
[2019-01-20] MEDS ORDERED: HydrALAZINE HCL 20 MG/ML VIAL IV STA (18:11)
--- NOTE | 2019-01-20 18:25 | History & Physical Report ---
Date of Service January 20, 2019 Assessment & Plan (1) Diastolic CHF, acute on chronic: (2) Hypertensive urgency: (3) CHF (congestive heart failure): (4) Hypertension: (5) Diabetes: (6) Non-ischemic cardiomyopathy: (7) Mitral regurgitation: (8) Hyperlipidemia: (9) CKD (chronic kidney disease), stage III: (10) History of CVA (cerebrovascular accident): (11) Morbid obesity with BMI of 40.0-44.9, adult: (12) Dyspnea due to congestive heart failure: (13) Cardiomyopathy: (14) DVT prophylaxis: We will admit the patient to telemetry floor. Add IV Lasix 40 twice daily. Add IV hydralazine PRN basis uncontrolled hypertension/hypertensive urgency. Continue home medications. Consult cardiology. Repeat labs in a.m. DuoNeb breathing treatment as needed basis. Strict intake output. Daily weights. CODE STATUS full code History of Present Illness Chief Complaint: sob Primary Care Provider: Jesse Moser MD The patient is 62-year-old female with history of diastolic congestive heart failure and cardiomyopathy. She presented to the emergency room with the complaints of increasing shortness of breath for last 10 days. She also has swelling of the legs. She has occasional cough and nonspecific chest pain. Her symptoms have been progressive for last 10 days. She was started on amoxicillin by her family physician for cough and possible URI. The further work-up done in the ER shows that patient has acute on chronic congestive heart failure. She also has hypertensive urgency. Her systolic blood pressure is 230 in the ER. She will be admitted for further evaluation and management. Allergies Allergy/AdvReac Type Severity Reaction Status Date / Time dulaglutide [From Trulicity] Allergy Intermediate Hives Verified 01/20/19 14:43 insulin lispro Allergy Visual Unverified 01/20/19 14:43 [From Humalog U-100 Insulin] Disturbance erythromycin base AdvReac Intermediate Vomiting Verified 01/20/19 14:43 atorvastatin AdvReac Joint Pain Unverified 01/20/19 14:43 Home Medications Home Medications Medication Instructions Recorded Confirmed Type clopidogrel [Plavix] 75 mg PO DAILY 06/30/18 01/20/19 History acetaminophen [Tylenol] 650 mg PO Q4 PRN 08/16/18 01/20/19 History carvedilol 25 mg tablet 50 mg PO BID tab 10/24/18 01/20/19 History lisinopril 40 mg tablet 40 mg PO DAILY #90 tab 11/03/18 01/20/19 Rx pantoprazole 40 mg tablet,delayed 40 mg PO DAILY #90 tab 11/03/18 01/20/19 Rx release furosemide 80 mg tablet 80 mg PO QAM #60 tab 12/26/18 01/20/19 Rx amoxicillin 500 mg PO QID 01/20/19 01/20/19 History insulin aspart U-100 [Novolog 0 unit SC UD 01/20/19 01/20/19 History Flexpen U-100 Insulin] insulin glargine [Lantus U-100 20 unit SUBCUT BID 01/20/19 01/20/19 History Insulin] Past Med/Surg History Medical History CHF (congestive heart failure) Diabetes Hypertension Surgical History S/P cardiac catheterization Family History Other Coronary heart disease Social History Preferred Language: [place] Irish Communication Ability: Impaired Portuguese Tutor Required: No Beliefs That Will Affect Care: None Current Living Situation: Spouse Feels Safe at Home: Yes Smoking Status: Never smoker Hx Alcohol Use: Yes Alcohol type: other Hx Substance Use: No Review of Systems Review of Systems: All systems reviewed & are unremarkable except as noted in HPI & below Respiratory: + cough, + chest congestion, + dyspnea, + dyspnea on exertion and + sputum production Cardiovascular: + chest pain, + chest pain with activity, + dyspnea on exertion and + edema Integumentary: + erythema Physical Exam Physical Exam: GENERAL : No acute distress EYES: No icterus, gaze conjugate NOSE: No evidence of epistaxis MOUTH: No lesions or candidiasis, mucosa moist NECK: Supple LUNGS: Decreased breath sounds at bases HEART: Regular, rate controlled ABDOMEN: Soft, NT, ND, BS Present EXTREMITIES: Swelling of the legs noted with some redness bilaterally, pedal pulses intact NEURO: A&OX3 Results & Data Vital Signs (Past 12 Hours) Vital Signs Temp Pulse Resp BP Pulse Ox 01/20/19 17:30 72 20 231/119 H 96 01/20/19 17:15 69 25 H 239/121 H 96 01/20/19 17:00 69 22 228/120 H 95 01/20/19 16:45 76 22 223/141 H 94 01/20/19 16:30 68 22 206/101 H 94 01/20/19 16:20 68 24 217/103 H 95 01/20/19 16:15 77 24 237/123 H 95 01/20/19 16:11 69 24 96 01/20/19 16:10 69 24 229/114 H 95 01/20/19 16:05 69 23 211/140 H 95 01/20/19 16:00 79 21 213/106 H 95 01/20/19 15:56 70 24 216/107 H 95 01/20/19 15:47 74 18 210/101 H 91 01/20/19 15:45 77 22 211/113 H 93 01/20/19 15:42 77 20 224/116 H 94 01/20/19 15:40 82 26 H 93 01/20/19 15:35 93 01/20/19 15:25 84 L 01/20/19 14:25 98.1 F 76 20 245/102 H 90 Laboratory Results 01/20/19 14:50 01/20/19 14:50 01/20/19 01/20/19 01/20/19 Range/Units 16:46 14:50 14:50 WBC (4.8-10.8) K/uL RBC (4.2-5.4) M/uL Hgb (12.0-16.0) g/dL Hct (37-47) % MCV (80-100) fL MCH (25-34) pg MCHC (32-36) g/dL RDW Std Deviation (36.4-46.3) fL RDW Coeff of Braed[place] (11.5-14.5) % Plt Count (130-400) K/uL MPV (7.4-10.4) fL Immature Gran % (Auto) % Neut % (Auto) % Lymph % (Auto) % [place] % (Auto) % Eos % (Auto) % Baso % (Auto) % Immature Gran # (Auto) (0.00-0.02) K/uL Neut # (Auto) (1.4-6.5) K/uL Lymph # (Auto) (1.2-3.4) K/uL [place] # (Auto) (0.11-0.59) K/uL Eos # (Auto) (0-0.5) K/uL Baso # (Auto) (0-0.2) K/uL PT 10.3 (9.0-12.0) Seconds INR 1.0 (0.9-1.1) APTT 22.5 (21.0-31.0) Seconds PTT Ratio 0.8 Sodium 143 (136-145) mmol/L Potassium 3.1 L (3.5-5.1) mmol/L Chloride 109 H (98-107) mmol/L Carbon Dioxide 29 (21-32) mmol/L Anion Gap 5.0 (3-11) BUN 30 H (7-18) mg/dl Creatinine 1.68 H (0.6-1.2) mg/dl Est Cr Clr Drug Dosing 43.5 ml/min Est GFR ( Amer) 37.1 Est GFR (Non-Af Amer) 32.0 BUN/Creatinine Ratio 18.0 (10-20) Glucose 160 H (70-99) mg/dl Calcium 9.5 (8.5-10.1) mg/dl Magnesium 1.9 (1.8-2.4) mg/dl Total Bilirubin 0.3 (0.2-1) mg/dl AST 13 L (15-37) U/L ALT 15 (12-78) U/L Alkaline Phosphatase 83 (45-117) U/L Troponin I 0.024 (0-0.045) ng/ml NT-Pro-B Natriuret Pep Pending Total Protein 6.5 (6.4-8.2) gm/dl Albumin 2.4 L (3.4-5.0) gm/dl Globulin 4.1 H (2.5-4.0) gm/dl Albumin/Globulin Ratio 0.6 L (0.9-2) Urine Color Yellow Urine Appearance Clear (Clear) Urine pH 6.5 (4.5-7.5) Ur Specific [place] 1.020 (1.000-1.030) Urine Protein 3+ H (Negative) Urine Glucose (UA) 1+ H (Negative) Urine Ketones Negative (Negative) Urine Blood 2+ H (Negative) Urine Nitrite Negative (Negative) Urine Bilirubin Negative (Negative) Urine Urobilinogen Negative (Negative) Ur Leukocyte Esterase Negative (Negative) Urine RBC 10-30 H (0-4) /hpf Urine WBC 5-10 H (0-5) /hpf Ur Epithelial Cells >30 H (0-5) /lpf Ur Renal Epithelial Cell 5-10 H (0-5) /lpf Urine Bacteria Negative (Negative) 01/20/19 Range/Units 14:50 WBC 8.01 (4.8-10.8) K/uL RBC 4.07 L (4.2-5.4) M/uL Hgb 11.0 L (12.0-16.0) g/dL Hct 34.1 L (37-47) % MCV 83.8 (80-100) fL MCH 27.0 (25-34) pg MCHC 32.3 (32-36) g/dL RDW Std Deviation 45.1 (36.4-46.3) fL RDW Coeff of [place]ed[place] 14.7 H (11.5-14.5) % Plt Count 242 (130-400) K/uL MPV 9.9 (7.4-10.4) fL Immature Gran % (Auto) 0.1 % Neut % (Auto) 68.3 % Lymph % (Auto) 20.5 % [place] % (Auto) 6.9 % Eos % (Auto) 3.6 % Baso % (Auto) 0.6 % Immature Gran # (Auto) 0.01 (0.00-0.02) K/uL Neut # (Auto) 5.47 (1.4-6.5) K/uL Lymph # (Auto) 1.64 (1.2-3.4) K/uL [place] # (Auto) 0.55 (0.11-0.59) K/uL Eos # (Auto) 0.29 (0-0.5) K/uL Baso # (Auto) 0.05 (0-0.2) K/uL PT (9.0-12.0) Seconds INR (0.9-1.1) APTT (21.0-31.0) Seconds PTT Ratio Sodium (136-145) mmol/L Potassium (3.5-5.1) mmol/L Chloride (98-107) mmol/L Carbon Dioxide (21-32) mmol/L Anion Gap (3-11) BUN (7-18) mg/dl Creatinine (0.6-1.2) mg/dl Est Cr Clr Drug Dosing ml/min Est GFR ( Amer) Est GFR (Non-Af Amer) BUN/Creatinine Ratio (10-20) Glucose (70-99) mg/dl Calcium (8.5-10.1) mg/dl Magnesium (1.8-2.4) mg/dl Total Bilirubin (0.2-1) mg/dl AST (15-37) U/L ALT (12-78) U/L Alkaline Phosphatase (45-117) U/L Troponin I (0-0.045) ng/ml NT-Pro-B Natriuret Pep Total Protein (6.4-8.2) gm/dl Albumin (3.4-5.0) gm/dl Globulin (2.5-4.0) gm/dl Albumin/Globulin Ratio (0.9-2) Urine Color Urine Appearance (Clear) Urine pH (4.5-7.5) Ur Specific [place] (1.000-1.030) Urine Protein (Negative) Urine Glucose (UA) (Negative) Urine Ketones (Negative) Urine Blood (Negative) Urine Nitrite (Negative) Urine Bilirubin (Negative) Urine Urobilinogen (Negative) Ur Leukocyte Esterase (Negative) Urine RBC (0-4) /hpf Urine WBC (0-5) /hpf Ur Epithelial Cells (0-5) /lpf Ur Renal Epithelial Cell (0-5) /lpf Urine Bacteria (Negative) Diagnostic Findings XR chest 1V portable CLINICAL HISTORY: Dyspnea COMPARISON STUDY: 08/20/2018 FINDINGS: The heart remains borderline enlarged. There is persistent elevation of interstitium consistent with mild congestive failure/fluid overload. There are trace pleural effusions. There are left basilar airspace opacities, progressive atelectatic versus infectious/inflammatory[ IMPRESSION: 1. Radiographic evidence of mild congestive failure/fluid overload 2. Trace pleural effusions 3. Left lower lung zone airspace opacities, atelectatic versus infectiou s/inflammatory Code Status & VTE Plan Code Status Full code PG Care Time/CCT Total # of Minutes Spent Total Time Spent with Patient: Total time spent is greater than 50% in coordination of care (as documented) at patient's floor/unit and/or counseling patient: (1) CHF (congestive heart failure) Heart failure type: systolic Heart failure chronicity: chronic Qualified Code(s): I50.22 - Chronic systolic (congestive) heart failure (2) Hypertension Hypertension type: essential hypertension Qualified Code(s): I10 - Essential (primary) hypertension (3) Diabetes Diabetes mellitus type: type 2 Diabetes mellitus intermediate insulin use: with buttermaker helper use Diabetes mellitus complication status: without complication Qualified Code(s): E11.9 - Type 2 diabetes mellitus without complications; Z79.4 - halfway (current) use of insulin (4) Hyperlipidemia Hyperlipidemia type: mixed hyperlipidemia Qualified Code(s): E78.2 - Mixed hyperlipidemia
[2019-01-20] MEDS ORDERED: ONDANSETRON INJ 2 MG/ML 2 ML VIAL IV PRN (19:25)
[2019-01-20] MEDS ORDERED: MoRPHine SULFATE 2 MG/ML CARP IV PRN (19:25)
[2019-01-20] MEDS ORDERED: NITROGLYCERIN SL 0.4 MG/TAB TAB SL PRN (19:25)
[2019-01-20] MEDS ORDERED: ACETAMINOPHEN 325 MG TAB PO PRN ×2 (19:25)
[2019-01-20] MEDS ORDERED: MAGNESIUM HYDROXIDE SUSP 30 ML UDC PO PRN (19:25)
[2019-01-20] MEDS ORDERED: ALUMINUM/MAGNESIUM SUSP 30 ML UDC PO PRN (19:25)
[2019-01-20] MEDS ORDERED: POLYETHYLENE (MIRALAX) 17 GM PACK PO PRN (19:25)
[2019-01-20] MEDS: POTASSIUM CHLORIDE / WTR 10 MEQ/100 ML PLCT IV SCH ×2 (20:28→22:34)
[2019-01-20] MEDS: FUROSEMIDE 40 MG in SYRINGE 0 ML IV SCH (20:28)
[2019-01-20] MEDS: INSULIN GLARGINE SOLOSTAR 100 UNITS/ML 3 ML PEN SC SCH (21:00)
[2019-01-20] MEDS: carvediloL 25 MG TAB PO SCH (21:00)
[2019-01-20] MEDS: AMOXICILLIN 500 MG CAP PO SCH (21:00)
[2019-01-20] MEDS ORDERED: PNEUMOCOCCAL ADMINISTRATION CHARGE ONE (21:15)
[2019-01-20] MEDS ORDERED: INFLUENZA VIRUS QUAD VACCINE 0.5 ML SYR IM ONE (21:15)
[2019-01-20] MEDS ORDERED: PNEUMOCOCCAL POLYSACCHARIDES 25 MCG/0.5 ML VIAL/SYR IM ONE (21:15)
[2019-01-20] MEDS ORDERED: INFLUENZA ADMINISTRATION CHARGE ONE (21:15)
[2019-01-20] MEDS: INSULIN ASPART 100 UNITS/ML 3 ML PEN SC SCH (22:46)
--- NOTE | 2019-01-21 00:04 | Emergency Department Note ---
Entered by Neda Patino acting as a scribe for Brando Balderas MD ED Provider Note CHIEF COMPLAINT: SOB HISTORY OF PRESENT ILLNESS: The patient is a 63 year old female who presents to the Emergency Room with complaints of intermittent SOB that worsened over the past few days. She reports that exertion exacerbates her symptoms. The patient complains of intermittent chest pain and "heaviness" and persistent hypertension. She complains of nausea this morning and lower extremity swelling. Pt denies LOC, headache, fevers, chills, diaphoresis, visual changes, neck pain, chest pain, vomiting, abdominal pain, back pain, melena, hematochezia, urinary symptoms, numbness, weakness, lymphadenopathy, rash, or other complaints. She notes that she doesn't wear oxygen at home. The patient notes that she takes carvedilol. REVIEW OF SYSTEMS: See HPI for pertinent positives and negatives. A total of ten systems were reviewed and were otherwise negative. PMHx/PSHx: CHF, HTN, diabetes, DKA, CKD, sepsis SOCIAL HISTORY: Patient lives at home. PHYSICAL EXAM: GENERAL: Awake, alert, dyspneic appearing, in no distress HENT: Normocephalic, atraumatic. Oropharynx unremarkable. EYES: PERRL. Normal conjunctiva. Sclera non-icteric. NECK: Inspection normal. Non-tender. Supple. No nuchal rigidity. FROM. No masses. RESPIRATORY: Clear to auscultation. No wheezes. No rales. Normal respiratory effort. CARDIAC: Normal rate. Normal rhythm. No murmurs. No rubs. Extremities warm and well perfused. Pulses equal. No JVD. GI: Soft, non-distended. No tenderness to palpation. No rebound or guarding. No masses. RECTAL: Deferred. MUSCULOSKELETAL: Atraumatic. Chest examination reveals no tenderness. The back is symmetrical on inspection without obvious abnormality. There is no CVA tenderness to palpation. No joint edema. LOWER EXTREMITIES: Calves are equal size bilaterally and non-tender. 3+ edema in the lower extremities. No discoloration. NEURO: Normal sensorium. No sensory or motor deficits noted. SKIN: No rash or jaundice noted. EMERGENCY DEPARTMENT COURSE: 1524: Past medical records reviewed. The patient was evaluated in room B07, and a complete history and physical examination were performed. 1624: I updated and reevaluated the patient. 1720: I spoke with Dr. Kaiser, [facility] hospitalist, about the patients case. Dr. Kaiser will further evaluate the patient. MEDICAL DECISION MAKING: Triage Nursing notes reviewed and agree them. Additional history obtained from the family. The patient's history was concerning for shortness of breath. Differential diagnosis: Etiologies such as pneumonia, COPD, reactive airway disease, CHF, cardiac ischemia, pulmonary embolism, pneumothorax, musculoskeletal, infections, gastrointestinal, as well as others were entertained. Physical examination: Consistent with CHF. ER treatment provided: Supplemental oxygen Sublingual nitroglycerin Nitropaste IV Lasix On reassessment the patient felt better. Diagnostic interpretation by me: The electrocardiogram was concerning for inferior ST segment abnormalities. The labs revealed a mild anemia on CBC. Chemistry panel revealed mild hypokalemia. The patient's renal function was unremarkable. Mild hyperglycemia. Troponin negative. BNP markedly elevated consistent with CHF. Imaging studies: Chest x-ray concerning for CHF. The patient has CHF and was hypoxic. She was significantly hypertensive. This was treated as above. Consultation: A consultation was placed with the hospitalist. The case was discussed and diagnostics were reviewed. The patient was evaluated in the ER for further treatment. IMPRESSION: Hypoxia, SOB, CHF, and malignant hypertension PLAN: Evaluation by hospitalist CRITICAL CARE: I have personally spent greater than 30 minutes of critical care time in the direct management of this patient. This includes bedside care, interpretation of diagnostic studies, and testing, discussion with consultants, patient, and family members, and other required patient management activities. This 30 minutes is in excess of all separately billable procedures. The scribe's documentation has been prepared under my direction and personally reviewed by me in its entirety. I confirm that the note above accurately reflects all work, treatment, procedures, and medical decision making performed by me. 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 Meat Required: No Beliefs That Will Affect Care: None Current Living Situation: Spouse Feels Safe at Home: Yes Smoking Status: Never smoker Hx Alcohol Use: Yes Alcohol type: other Hx Substance Use: No Results & Data Vital Signs Vital Signs - 24 hr 01/20/19 14:25 01/20/19 15:25 01/20/19 15:35 Temperature 36.7 C Temperature Source Oral Sepsis Recent Fever Within 48 Hours No Sepsis New/Unexplained Change in Mental Status No Sepsis Action Taken by Nursing No Action Required Pulse Rate 76 Pulse Rate from SpO2 Sensor Respiratory Rate 20 Blood Pressure 245/102 H Blood Pressure Mean 149 Pulse Oximetry 90 84 L 93 Oxygen Delivery Method Room Air Room Air Nasal Cannula Oxygen Flow Rate 4 01/20/19 15:40 01/20/19 15:42 01/20/19 15:45 Temperature Temperature Source Sepsis Recent Fever Within 48 Hours Sepsis New/Unexplained Change in Mental Status Sepsis Action Taken by Nursing Pulse Rate 82 77 77 Pulse Rate from SpO2 Sensor 77 77 77 Respiratory Rate 26 H 20 22 Blood Pressure 224/116 H 211/113 H Blood Pressure Mean 152 145 Pulse Oximetry 93 94 93 Oxygen Delivery Method Oxygen Flow Rate 4 4 4 01/20/19 15:47 01/20/19 15:56 01/20/19 16:00 Temperature Temperature Source Sepsis Recent Fever Within 48 Hours Sepsis New/Unexplained Change in Mental Status Sepsis Action Taken by Nursing Pulse Rate 74 70 79 Pulse Rate from SpO2 Sensor 75 70 70 Respiratory Rate 18 24 21 Blood Pressure 210/101 H 216/107 H 213/106 H Blood Pressure Mean 137 143 141 Pulse Oximetry 91 95 95 Oxygen Delivery Method Oxygen Flow Rate 4 01/20/19 16:05 01/20/19 16:10 01/20/19 16:11 Temperature Temperature Source Sepsis Recent Fever Within 48 Hours Sepsis New/Unexplained Change in Mental Status Sepsis Action Taken by Nursing Pulse Rate 69 69 69 Pulse Rate from SpO2 Sensor 69 69 69 Respiratory Rate 23 24 24 Blood Pressure 211/140 H 229/114 H Blood Pressure Mean 163 152 Pulse Oximetry 95 95 96 Oxygen Delivery Method Oxygen Flow Rate 4 4 4 01/20/19 16:15 01/20/19 16:20 01/20/19 16:30 Temperature Temperature Source Sepsis Recent Fever Within 48 Hours Sepsis New/Unexplained Change in Mental Status Sepsis Action Taken by Nursing Pulse Rate 77 68 68 Pulse Rate from SpO2 Sensor 70 68 69 Respiratory Rate 24 24 22 Blood Pressure 237/123 H 217/103 H 206/101 H Blood Pressure Mean 161 141 136 Pulse Oximetry 95 95 94 Oxygen Delivery Method Oxygen Flow Rate 4 4 01/20/19 16:45 01/20/19 17:00 01/20/19 17:15 Temperature Temperature Source Sepsis Recent Fever Within 48 Hours Sepsis New/Unexplained Change in Mental Status Sepsis Action Taken by Nursing Pulse Rate 76 69 69 Pulse Rate from SpO2 Sensor 76 69 69 Respiratory Rate 22 22 25 H Blood Pressure 223/141 H 228/120 H 239/121 H Blood Pressure Mean 168 156 160 Pulse Oximetry 94 95 96 Oxygen Delivery Method Oxygen Flow Rate 4 4 4 01/20/19 17:30 Temperature Temperature Source Sepsis Recent Fever Within 48 Hours Sepsis New/Unexplained Change in Mental Status Sepsis Action Taken by Nursing Pulse Rate 72 Pulse Rate from SpO2 Sensor 72 Respiratory Rate 20 Blood Pressure 231/119 H Blood Pressure Mean 156 Pulse Oximetry 96 Oxygen Delivery Method Oxygen Flow Rate 4 Home Medications Current Medication List: was personally reviewed by me Laboratory Data Attestation: I reviewed the patient's lab results. Result diagrams: 01/20/19 14:50 01/20/19 14:50 Lab Results 01/20/19 01/20/19 01/20/19 Range/Units 14:50 14:50 14:50 WBC 8.01 (4.8-10.8) K/uL RBC 4.07 L (4.2-5.4) M/uL Hgb 11.0 L (12.0-16.0) g/dL Hct 34.1 L (37-47) % MCV 83.8 (80-100) fL MCH 27.0 (25-34) pg MCHC 32.3 (32-36) g/dL RDW Std Deviation 45.1 (36.4-46.3) fL RDW Coeff of Braeden 14.7 H (11.5-14.5) % Plt Count 242 (130-400) K/uL MPV 9.9 (7.4-10.4) fL Immature Gran % (Auto) 0.1 % Neut % (Auto) 68.3 % Lymph % (Auto) 20.5 % [place] % (Auto) 6.9 % Eos % (Auto) 3.6 % Baso % (Auto) 0.6 % Immature Gran # (Auto) 0.01 (0.00-0.02) K/uL Neut # (Auto) 5.47 (1.4-6.5) K/uL Lymph # (Auto) 1.64 (1.2-3.4) K/uL [place] # (Auto) 0.55 (0.11-0.59) K/uL Eos # (Auto) 0.29 (0-0.5) K/uL Baso # (Auto) 0.05 (0-0.2) K/uL PT 10.3 (9.0-12.0) Seconds INR 1.0 (0.9-1.1) APTT 22.5 (21.0-31.0) Seconds PTT Ratio 0.8 Sodium 143 (136-145) mmol/L Potassium 3.1 L (3.5-5.1) mmol/L Chloride 109 H (98-107) mmol/L Carbon Dioxide 29 (21-32) mmol/L Anion Gap 5.0 (3-11) BUN 30 H (7-18) mg/dl Creatinine 1.68 H (0.6-1.2) mg/dl Est Cr Clr Drug Dosing 43.5 ml/min Est GFR ( Amer) 37.1 Est GFR (Non-Af Amer) 32.0 BUN/Creatinine Ratio 18.0 (10-20) Glucose 160 H (70-99) mg/dl Calcium 9.5 (8.5-10.1) mg/dl Magnesium 1.9 (1.8-2.4) mg/dl Total Bilirubin 0.3 (0.2-1) mg/dl AST 13 L (15-37) U/L ALT 15 (12-78) U/L Alkaline Phosphatase 83 (45-117) U/L Troponin I 0.024 (0-0.045) ng/ml NT-Pro-B Natriuret Pep 59614 H (0-900) pg/ml Total Protein 6.5 (6.4-8.2) gm/dl Albumin 2.4 L (3.4-5.0) gm/dl Globulin 4.1 H (2.5-4.0) gm/dl Albumin/Globulin Ratio 0.6 L (0.9-2) Urine Color Urine Appearance (Clear) Urine pH (4.5-7.5) Ur Specific [place] (1.000-1.030) Urine Protein (Negative) Urine Glucose (UA) (Negative) Urine Ketones (Negative) Urine Blood (Negative) Urine Nitrite (Negative) Urine Bilirubin (Negative) Urine Urobilinogen (Negative) Ur Leukocyte Esterase (Negative) Urine RBC (0-4) /hpf Urine WBC (0-5) /hpf Ur Epithelial Cells (0-5) /lpf Ur Renal Epithelial Cell (0-5) /lpf Urine Bacteria (Negative) 01/20/19 Range/Units 16:46 WBC (4.8-10.8) K/uL RBC (4.2-5.4) M/uL Hgb (12.0-16.0) g/dL Hct (37-47) % MCV (80-100) fL MCH (25-34) pg MCHC (32-36) g/dL RDW Std Deviation (36.4-46.3) fL RDW Coeff of Braeden (11.5-14.5) % Plt Count (130-400) K/uL MPV (7.4-10.4) fL Immature Gran % (Auto) % Neut % (Auto) % Lymph % (Auto) % [place] % (Auto) % Eos % (Auto) % Baso % (Auto) % Immature Gran # (Auto) (0.00-0.02) K/uL Neut # (Auto) (1.4-6.5) K/uL Lymph # (Auto) (1.2-3.4) K/uL [place] # (Auto) (0.11-0.59) K/uL Eos # (Auto) (0-0.5) K/uL Baso # (Auto) (0-0.2) K/uL PT (9.0-12.0) Seconds INR (0.9-1.1) APTT (21.0-31.0) Seconds PTT Ratio Sodium (136-145) mmol/L Potassium (3.5-5.1) mmol/L Chloride (98-107) mmol/L Carbon Dioxide (21-32) mmol/L Anion Gap (3-11) BUN (7-18) mg/dl Creatinine (0.6-1.2) mg/dl Est Cr Clr Drug Dosing ml/min Est GFR ( Amer) Est GFR (Non-Af Amer) BUN/Creatinine Ratio (10-20) Glucose (70-99) mg/dl Calcium (8.5-10.1) mg/dl Magnesium (1.8-2.4) mg/dl Total Bilirubin (0.2-1) mg/dl AST (15-37) U/L ALT (12-78) U/L Alkaline Phosphatase (45-117) U/L Troponin I (0-0.045) ng/ml NT-Pro-B Natriuret Pep (0-900) pg/ml Total Protein (6.4-8.2) gm/dl Albumin (3.4-5.0) gm/dl Globulin (2.5-4.0) gm/dl Albumin/Globulin Ratio (0.9-2) Urine Color Yellow Urine Appearance Clear (Clear) Urine pH 6.5 (4.5-7.5) Ur Specific [place] 1.020 (1.000-1.030) Urine Protein 3+ H (Negative) Urine Glucose (UA) 1+ H (Negative) Urine Ketones Negative (Negative) Urine Blood 2+ H (Negative) Urine Nitrite Negative (Negative) Urine Bilirubin Negative (Negative) Urine Urobilinogen Negative (Negative) Ur Leukocyte Esterase Negative (Negative) Urine RBC 10-30 H (0-4) /hpf Urine WBC 5-10 H (0-5) /hpf Ur Epithelial Cells >30 H (0-5) /lpf Ur Renal Epithelial Cell 5-10 H (0-5) /lpf Urine Bacteria Negative (Negative) Administered Medications Amoxicillin (Amoxil) 500 mg PO QID [facility] Stop: 01/22/19 20:59 Last Admin: 01/20/19 21:00 Dose: 500 mg Documented by: [id number] Carvedilol (Coreg) 50 mg PO BID [facility] [place] Stop: 02/19/19 20:59 Last Admin: 01/20/19 21:00 Dose: 50 mg Documented by: [id number] Furosemide 40 mg/ Syringe 4 mls @ 4 mls/min IV BID17 [facility] [place] Stop: 02/19/19 19:44 Last Admin: 01/20/19 20:28 Dose: 4 mls/min Documented by: [id number] Insulin Aspart (Novolog Flexpen) 0 units SC ACHS [facility] [place] Stop: 02/19/19 20:59 Last Admin: 10/18/19 22:46 Dose: 5 units Documented by: [id number] Cosigned by: [id number] Insulin Glargine (Lantus Solostar Pen) 20 units SC BID JACE Stop: 02/19/19 20:59 Last Admin: 01/20/19 21:00 Dose: 20 units Documented by: [id number] Cosigned by: [id number] Discontinued Medications Furosemide (Lasix) 40 mg IV NOW STA Stop: 01/20/19 15:31 Last Admin: 01/20/19 15:40 Dose: 40 mg Documented by: [id number] Hydralazine HCl (Hydralazine Hcl) 10 mg IV NOW STA Stop: 01/20/19 18:12 Last Admin: 01/20/19 18:52 Dose: 10 mg Documented by: [id number] Potassium Chloride (K Manuel / Wtr) 10 meq in 100 mls @ 100 mls/hr IV Q1H JACE Stop: 01/20/19 23:24 Last Admin: 01/20/19 22:34 Dose: 50 mls/hr Documented by: [id number] Infusion: 01/20/19 21:28 Dose: 502 mls/hr Documented by: [id number] Admin: 01/20/19 20:28 Dose: 100 mls/hr Documented by: [id number] Nitroglycerin (Nitro-Bid 2%) 0.5 inch EXT NOW STA Stop: 01/20/19 15:31 Last Admin: 01/20/19 15:41 Dose: 0.5 inch Documented by: [id number] Nitroglycerin (Nitrostat) 0.4 mg SL NOW STA Stop: 01/20/19 15:31 Last Admin: 01/20/19 15:42 Dose: 0.4 mg Documented by: [id number] Nitroglycerin (Nitrostat) 0.4 mg SL NOW STA Stop: 01/20/19 16:19 Last Admin: 01/20/19 16:25 Dose: 0.4 mg Documented by: [id number] Imaging Data Radiologist's Impression: Radiology results as stated below per my review and the radiologist's interpretation: XR chest 1V portable CLINICAL HISTORY: Dyspnea COMPARISON STUDY: 08/20/2018 FINDINGS: The heart remains borderline enlarged. There is persistent elevation of interstitium consistent with mild congestive failure/fluid overload. There are trace pleural effusions. There are left basilar airspace opacities, progressive atelectatic versus infectious/inflammatory[ IMPRESSION: 1. Radiographic evidence of mild congestive failure/fluid overload 2. Trace pleural effusions 3. Left lower lung zone airspace opacities, atelectatic versus infectious/inflammatory Electronically signed by: Jordan Armando M.D. 01/20/2019 4:03 PM ECG Data Attestation: I personally reviewed and interpreted this ECG as follows: Indication: SOB/dyspnea Rate (beats per minute): 80 Rhythm: normal sinus Findings: + other (normal QRS) and + ST depression (Inferior); no PAC, no PVC and no ST elevation Comparison ECG Date: from (08/16/18) Change: the following changes noted (slightly worsening of ST depression inferiorly) Blood Pressure Blood Pressure Findings: Elevated blood pressure Blood Pressure Disposition: further management by hospitalist Discharge Plan Visit Data *Final* Discharge Date/Time: 01/20/19 19:11 Chief Complaint: Illness Stated Complaint: CHF, HIGH BP, STROKE SYMPTOMS Other Complaint: Stroke/CVA Symptoms ED Provider: Brando Balderas Discharge Problem: Hypoxia, CHF (congestive heart failure), SOB (shortness of breath), Malignant hypertension Patient Disposition: Admitted As Inpatient Discharge Instructions Interventions: ED Discharge Assessment Last Done: 01/20/19 19:11 Discharge Problem: CHF (congestive heart failure) Qualifiers: Heart failure type: unspecified Heart failure chronicity: unspecified Qualified Code(s): I50.9 - Heart failure, unspecified The scribe's documentation has been prepared under my direction and personally reviewed by me in its entirety. I confirm that the note above accurately reflects all work, treatment, procedures, and medical decision making performed by me.
[2019-01-21] MEDS: ZOLPIDEM TARTRATE 5 MG TAB PO PRN ×2 (00:58→20:55)
[2019-01-21] MEDS: POTASSIUM CHLORIDE / WTR 10 MEQ/100 ML PLCT IV SCH ×2 (01:40→03:46)
[2019-01-21 02:15] LABS: Hematocrit (blood only) 30.8 % (37-47); Mean Corpuscular Hemoglobin 26.9 pg (25-34); Mean Corpuscular Hgb Conc 32.5 g/dL (32-36); Mean Corpuscular Volume 82.8 fL (80-100); Mean Platelet Volume 9.4 fL (7.4-10.4); Platelet Count 218 K/uL (130-400); RDW Coefficient of Variation 14.8 % (11.5-14.5); RDW Standard Deviation 44.9 fL (36.4-46.3); Red Blood Count 3.72 M/uL (4.2-5.4); White Blood Count 8.93 K/uL (4.8-10.8)
[2019-01-21 02:33] LABS: Alanine Aminotransferase 13 U/L (12-78); Aspartate Aminotransferase 8 U/L (15-37); BUN Creatinine Ratio 17.8 (10-20); Bilirubin Direct < 0.1 mg/dl (0-0.2); Blood Urea Nitrogen 31 mg/dl (7-18); Carbon Dioxide 30 mmol/L (21-32); Chloride 110 mmol/L (98-107); Creatinine Clr Calc Pharmacy 42.2 ml/min; Est GFR (African American) 35.8; Est GFR (Non-African American) 30.9; Glucose 161 mg/dl (70-99); Potassium 3.1 mmol/L (3.5-5.1); Sodium 142 mmol/L (136-145)
[2019-01-21 02:38] LABS: Albumin Globulin Ratio 0.6 (0.9-2); Alkaline Phosphatase 73 U/L (45-117); Bilirubin,Total 0.2 mg/dl (0.2-1); Globulin 3.6 gm/dl (2.5-4.0); Total Protein 5.6 gm/dl (6.4-8.2); Troponin I 0.024 ng/ml (0-0.045)
[2019-01-21 07:36] LABS: Estimated Average Glucose 189 mg/dl; Hemoglobin A1C 8.2 % (4.5-5.6)
[2019-01-21] MEDS: lisinopriL 40 MG TAB PO SCH (08:22)
[2019-01-21] MEDS: AMOXICILLIN 500 MG CAP PO SCH (08:22)
[2019-01-21] MEDS: FUROSEMIDE 40 MG in SYRINGE 0 ML IV SCH ×2 (08:22→17:03)
[2019-01-21] MEDS: carvediloL 25 MG TAB PO SCH ×2 (08:22→20:56)
[2019-01-21] MEDS: PANTOprazole 40 MG TAB PO SCH (08:23)
[2019-01-21] MEDS: INSULIN ASPART 100 UNITS/ML 3 ML PEN SC SCH ×4 (08:41→21:17)
[2019-01-21] MEDS: INSULIN GLARGINE SOLOSTAR 100 UNITS/ML 3 ML PEN SC SCH ×2 (08:42→20:57)
[2019-01-21 09:00] LABS: BUN Creatinine Ratio 18.2 (10-20); Calcium 9.5 mg/dl (8.5-10.1); Creatinine Clr Calc Pharmacy 43.1 ml/min; Est GFR (African American) 36.8; Est GFR (Non-African American) 31.8; Potassium 3.4 mmol/L (3.5-5.1)
[2019-01-21] MEDS ORDERED: ASPIRIN 81 MG ECTAB PO SCH (09:00)
[2019-01-21] MEDS ORDERED: CLOPIDOGREL BISULFATE 75 MG TAB PO SCH (09:00)
--- NOTE | 2019-01-21 09:23 | Cardiology Consultation ---
Date of Consultation January 21, 2019 Assessment & Plan (1) SOB (shortness of breath): She presented with shortness of breath and leg edema, I believe her shortness of breath is due to fluid retention and congestive heart failure. (2) Diastolic CHF: She has diastolic congestive heart failure, she has a history of cardiomyopathy but her ejection fraction recently was normal. I do not think we need to repeat that measurement. Her heart failure is likely a combination of dietary indiscretion, decreased net diuresis and chronic renal insufficiency. I would recommend diuresis, when she goes home I believe we should treat her with an extra dose of Lasix in the afternoon as she is taking for a weight gain, however I would also add Zaroxolyn to her regimen as a back-up in case the extra dose of diuretic does not eliminate her weight gain. That may keep her from presenting again to the emergency room. I believe she can handle the complication of this. (3) Non-ischemic cardiomyopathy: She has a nonischemic cardiomyopathy in the past, however that has normalized over the years and recent echocardiogram showed normal LV function. (4) Hypertension: She had significant hypertension on arrival and she still is hypertensive. She is on high-dose carvedilol and lisinopril which she is on at home and here and I agree with continuing these. She will need something else for blood pressure control. Accelerated blood pressure may have been in part related to her presentation although probably not the primary reason. History of Present Illness Attending Physician: Chris Teran MD History of Present Illness This is a 63-year-old woman with a history of cardiomyopathy and nonobstructive coronary disease by catheterization 2009, her cardiomyopathy resolved with medical therapy. She also has a history of hypertension, hyperlipidemia, diabetes mellitus, CVA in 2017 and chronic kidney disease. She was last seen in the office December 14, 2018 where she follows with Dr. Montes. She has had difficulty with respiratory failure and sepsis this year as well as kidney disease. She has had difficulty with fluid retention and edema. Echocardiography July 01, 2018 showed normal left ventricular function. She was admitted on January 20, 2019 with progressive shortness of breath and edema. She appeared to be in acute on chronic congestive heart failure as well as severe hypertension with a blood pressure of 230 in the ER. Based on our measurements here (which could be different scales) her weight was significantly up, she was 5-1/2 kg less on December 14, 2018. Her creatinine is elevated but not much different than the past, her BNP is markedly elevated. At the time of my evaluation she is sitting in a chair and has oxygen, she is feeling a little bit better but still not back to normal. She does not follow fluid restriction at home but tells me she does not drink a lot of fluid, she seems fairly aware of how to control her fluid and she takes an extra Lasix in the afternoon when her weight goes up. She did notice a weight gain and took an extra Lasix but continued to climb and came in. In the past she has had metolazone in the hospital, she does not have metolazone at home. When she sits down at home she keeps her legs up on a lazy boy recliner. She has not had any chest discomfort or other symptoms. Allergies Allergy/AdvReac Type Severity Reaction Status Date / Time dulaglutide [From Trulicity] Allergy Intermediate Hives Verified 01/20/19 14:43 insulin lispro Allergy Visual Unverified 01/20/19 14:43 [From Humalog U-100 Insulin] Disturbance erythromycin base AdvReac Intermediate Vomiting Verified 01/20/19 14:43 atorvastatin AdvReac Joint Pain Unverified 01/20/19 14:43 Home Medications Home Medications Medication Instructions Recorded Confirmed Type clopidogrel [Plavix] 75 mg PO DAILY 06/30/18 01/20/19 History acetaminophen [Tylenol] 650 mg PO Q4 PRN 08/16/18 01/20/19 History carvedilol 25 mg tablet 50 mg PO BID tab 10/24/18 01/20/19 History lisinopril 40 mg tablet 40 mg PO DAILY #90 tab 11/03/18 01/20/19 Rx pantoprazole 40 mg tablet,delayed 40 mg PO DAILY #90 tab 11/03/18 01/20/19 Rx release furosemide 80 mg tablet 80 mg PO QAM #60 tab 12/26/18 01/20/19 Rx amoxicillin 500 mg PO QID 01/20/19 01/20/19 History insulin aspart U-100 [Novolog 0 unit SC UD 01/20/19 01/20/19 History Flexpen U-100 Insulin] insulin glargine [Lantus U-100 20 unit SUBCUT BID 01/20/19 01/20/19 History Insulin] Patient History Medical History CHF (congestive heart failure) Diabetes Hypertension Surgical History S/P cardiac catheterization Family History Other Coronary heart disease Social History Preferred Language: Nauruan Communication Ability: Effective Ironer Hand Required: No Beliefs That Will Affect Care: None Current Living Situation: Spouse Feels Safe at Home: Yes Smoking Status: Never smoker Hx Alcohol Use: Yes Alcohol type: other Hx Substance Use: No Review of Systems Review of Systems: All systems reviewed & are unremarkable except as noted in HPI & below Physical Exam Physical Exam: Constitutional: Alert, cooperative and in no distress. HEENT: Unremarkable Neck: No jugular venous distention, carotid pulses are normal and equal bilaterally without bruits. Pulmonary: Clear to auscultation bilaterally. Cardiac: Regular rhythm with no murmur, gallop or rub. Abdomen: Soft, nontender with normal bowel sounds. Extremities: +3 bilateral pretibial edema. Distal pulses intact. Neurologic: No focal findings. Gait is steady. Skin: No rash, ecchymoses or petechiae. Results & Data Vital Signs (Past 12 Hours) Vital Signs Temp Pulse Pulse Resp BP BP Pulse Ox 01/21/19 07:27 37.0 C 68 18 176/94 H 94 01/21/19 05:29 36.7 C 69 20 184/91 H 91 01/21/19 00:42 183/85 H 01/20/19 23:19 36.6 C 81 18 224/106 H 215/106 H 96 01/20/19 22:59 79 Laboratory Results Abnormal lab results 01/20/19 01/20/19 01/20/19 Range/Units 14:50 14:50 16:46 RBC 4.07 L (4.2-5.4) M/uL Hgb 11.0 L (12.0-16.0) g/dL Hct 34.1 L (37-47) % RDW Coeff of Braeden 14.7 H (11.5-14.5) % Potassium 3.1 L (3.5-5.1) mmol/L Chloride 109 H (98-107) mmol/L Anion Gap (3-11) BUN 30 H (7-18) mg/dl Creatinine 1.68 H (0.6-1.2) mg/dl Glucose 160 H (70-99) mg/dl POC Glucose (70-99) Hemoglobin A1c (4.5-5.6) % AST 13 L (15-37) U/L NT-Pro-B Natriuret Pep 15259 H (0-900) pg/ml Total Protein (6.4-8.2) gm/dl Albumin 2.4 L (3.4-5.0) gm/dl Globulin 4.1 H (2.5-4.0) gm/dl Albumin/Globulin Ratio 0.6 L (0.9-2) Urine Protein 3+ H (Negative) Urine Glucose (UA) 1+ H (Negative) Urine Blood 2+ H (Negative) Urine RBC 10-30 H (0-4) /hpf Urine WBC 5-10 H (0-5) /hpf Ur Epithelial Cells >30 H (0-5) /lpf Ur Renal Epithelial Cell 5-10 H (0-5) /lpf 01/20/19 01/20/19 01/21/19 Range/Units 19:35 22:26 01:55 RBC (4.2-5.4) M/uL Hgb (12.0-16.0) g/dL Hct (37-47) % RDW Coeff of Braeden (11.5-14.5) % Potassium 3.1 L (3.5-5.1) mmol/L Chloride 110 H (98-107) mmol/L Anion Gap 2.0 L (3-11) BUN 31 H (7-18) mg/dl Creatinine 1.73 H (0.6-1.2) mg/dl Glucose 161 H (70-99) mg/dl POC Glucose 182 H 257 H (70-99) Hemoglobin A1c (4.5-5.6) % AST 8 L (15-37) U/L NT-Pro-B Natriuret Pep (0-900) pg/ml Total Protein 5.6 L (6.4-8.2) gm/dl Albumin 2.0 L (3.4-5.0) gm/dl Globulin (2.5-4.0) gm/dl Albumin/Globulin Ratio 0.6 L (0.9-2) Urine Protein (Negative) Urine Glucose (UA) (Negative) Urine Blood (Negative) Urine RBC (0-4) /hpf Urine WBC (0-5) /hpf Ur Epithelial Cells (0-5) /lpf Ur Renal Epithelial Cell (0-5) /lpf 01/21/19 01/21/19 01/21/19 Range/Units 01:55 01:55 07:06 RBC 3.72 L (4.2-5.4) M/uL Hgb 10.0 L (12.0-16.0) g/dL Hct 30.8 L (37-47) % RDW Coeff of Braeden 14.8 H (11.5-14.5) % Potassium (3.5-5.1) mmol/L Chloride (98-107) mmol/L Anion Gap (3-11) BUN (7-18) mg/dl Creatinine (0.6-1.2) mg/dl Glucose (70-99) mg/dl POC Glucose 128 H (70-99) Hemoglobin A1c 8.2 H (4.5-5.6) % AST (15-37) U/L NT-Pro-B Natriuret Pep (0-900) pg/ml Total Protein (6.4-8.2) gm/dl Albumin (3.4-5.0) gm/dl Globulin (2.5-4.0) gm/dl Albumin/Globulin Ratio (0.9-2) Urine Protein (Negative) Urine Glucose (UA) (Negative) Urine Blood (Negative) Urine RBC (0-4) /hpf Urine WBC (0-5) /hpf Ur Epithelial Cells (0-5) /lpf Ur Renal Epithelial Cell (0-5) /lpf 01/21/19 Range/Units 08:29 RBC (4.2-5.4) M/uL Hgb (12.0-16.0) g/dL Hct (37-47) % RDW Coeff of Braeden (11.5-14.5) % Potassium 3.4 L (3.5-5.1) mmol/L Chloride 109 H (98-107) mmol/L Anion Gap (3-11) BUN 31 H (7-18) mg/dl Creatinine 1.69 H (0.6-1.2) mg/dl Glucose 165 H (70-99) mg/dl POC Glucose (70-99) Hemoglobin A1c (4.5-5.6) % AST (15-37) U/L NT-Pro-B Natriuret Pep (0-900) pg/ml Total Protein (6.4-8.2) gm/dl Albumin (3.4-5.0) gm/dl Globulin (2.5-4.0) gm/dl Albumin/Globulin Ratio (0.9-2) Urine Protein (Negative) Urine Glucose (UA) (Negative) Urine Blood (Negative) Urine RBC (0-4) /hpf Urine WBC (0-5) /hpf Ur Epithelial Cells (0-5) /lpf Ur Renal Epithelial Cell (0-5) /lpf Diagnostic Findings Telemetry: Sinus rhythm, no significant arrhythmia Electrocardiogram: Sinus rhythm, no acute changes PG Care Time/CCT Total # of Minutes Spent Total Time Spent with Patient: Total time spent is greater than 50% in coordination of care (as documented) at patient's floor/unit and/or counseling patient: (1) Hypertension Hypertension type: essential hypertension Qualified Code(s): I10 - Essential (primary) hypertension
[2019-01-21] MEDS ORDERED: AZITHROMYCIN 250 MG TAB PO ONE (16:20)
[2019-01-21] MEDS: AMPICILLIN/SULBACTAM SOD 3,000 MG in 0.9 % SODIUM CHLORIDE 100 ML IV SCH ×2 (17:03→23:31)
[2019-01-21] MEDS: HEPARIN SOD 5,000 UNIT/0.5 ML VIAL SQ SCH (20:58)
[2019-01-21] MEDS ORDERED: FLUTICASONE PROPIONATE NA SPR 16 GM BTL PRN (21:36)
--- NOTE | 2019-01-21 23:29 | Hospitalist Progress Note ---
Date of Service January 21, 2019 Assessment & Plan (1) Pneumonia: Given initial improvement with amoxicillin and one sided consolidation on CXR suspect pneumonia is main cause of her current illness. Procalcitonin WNL but suspect pneumonia has been partially treated with amoxicillin she has been taking since Wednesday. In addition this is similar to her clinical picture on admission in June-July when she became critically unwell requiring intubation therefore would be prudent to treat early. (2) UTI (urinary tract infection): Treated by patient with amoxicillin with resolution of symptoms. UA with 3+ protein, 1+ glucose, 2+ blood (persistent from prior UAs) No nephrology/urology follow up despite persistent microscopic hematuria - will need to set up on discharge. (3) CKD (chronic kidney disease), stage III: Cr stable since ATN from sepsis in July this year. However continuous proteuria concerning. Will consult nephrology given patient's recent history with ATN and sepsis in July on back ground of diabetic nephropathy and A4 proteinuria to avoid going into acute renal failure with difficult fluid management and blood pressure control with this patient. (4) Diastolic CHF, acute on chronic: Suspect primarily more of a renal rather than cardiac fluid balance issue given hypoalbuminemia. However suspect moderate mitral regurgitation also con tributing to pulmonary edema. (5) Mitral regurgitation: as above (6) Hypertensive urgency: Will continue with lisinopril, IV lasix and add metolazone for tomorrow. Recently discontinued amlodipine due to leg swelling. Unable to increase carvedilol due to HR. Try to avoid vasodilators due to leg swelling. Hydralazine PRN (7) Hypertension: as above (8) Diabetes: Continue home insulin regimen and monitor BSG ACHS (9) Hyperlipidemia: (10) History of CVA (cerebrovascular accident): Continue clopidogrel Intolerant to statins (11) DVT prophylaxis: Heparin 5000 units BID SQ (12) Morbid obesity: Subjective Revisited history with the patient. Main complaint was increasing shortness of breath for the last 10 days with associated cough. She took her own amoxicillin which she had back from a previous prescription for a dysuria which started on Wednesday. She reports her dysuria has improved however her shortness of breath is continued. She denies any chest pain, orthopnea, PND, palpitations. She does endorse increased leg swelling over the last week. Cough is dry without sputum. She reports feeling similar to her prior admission in July when she ended up intubated in the ICU. Review of Systems Review of Systems: All systems reviewed & are unremarkable except as noted in HPI & below Physical Exam Constitutional: well developed and + obese; no acute distress Eyes: + anicteric sclerae; normal pupil size ENMT: external ear and nose normal, oropharynx normal Neck: normal visual inspection, trachea midline and + thick neck Respiratory: normal respiratory effort; no respiratory distress and no cough Auscultation: + diminished lung sounds (Bibasal) and + crackles (At bases bilaterally.) Cardiovascular: Rate/Rhythm: regular rate and regular rhythm Heart Sounds: normal S1, normal S2 and + murmur Extremities: + edema Gastrointestinal (Abdomen): Inspection/Auscultation: normal bowel sounds Percussion/Palpation: abdomen soft; abdomen nontender, no guarding and abdomen not rigid Musculoskeletal: Extremities: extremities normal to inspection; no cyanosis and no clubbing Gait: normal gait Skin: no rashes, warm and dry (No cellulitis) Neurologic: moves all extremities and awake; no focal motor deficits Motor/Sensory: no tremor and no pronator drift Psychiatric: A+Ox3, euthymic affect Results & Data Vital Signs (Past 12 Hours) Vital Signs Temp Pulse Pulse Resp BP Pulse Ox 01/21/19 19:24 98.2 F 67 18 179/83 H 90 01/21/19 18:42 67 01/21/19 17:52 92 01/21/19 11:53 98.1 F 64 20 160/88 H 93 PG Care Time/CCT Total # of Minutes Spent Total Time Spent with Patient: Total time spent is greater than 50% in coordination of care (as documented) at patient's floor/unit and/or counseling patient: (1) UTI (urinary tract infection) Urinary tract infection type: urethritis Qualified Code(s): N34.2 - Other urethritis (2) Diabetes Diabetes mellitus complication status: without complication Diabetes mellitus intermediate insulin use: with intermediate use Diabetes mellitus type: type 2 Qualified Code(s): E11.9 - Type 2 diabetes mellitus without complications; 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
[2019-01-22] MEDS: AMPICILLIN/SULBACTAM SOD 3,000 MG in 0.9 % SODIUM CHLORIDE 100 ML IV SCH ×4 (06:39→23:43)
[2019-01-22] MEDS: HydrALAZINE HCL 20 MG/ML VIAL IV PRN (06:40)
[2019-01-22 06:48] LABS: Basophils # (auto) 0.05 K/uL (0-0.2); Basophils % (auto) 0.6 %; Eosinophils # (auto) 0.34 K/uL (0-0.5); Eosinophils % (auto) 4.3 %; Hemoglobin 11.1 g/dL (12.0-16.0); Immature Granulocytes # (auto) 0.01 K/uL (0.00-0.02); Immature Granulocytes % (auto) 0.1 %; Lymphocytes # (auto) 1.39 K/uL (1.2-3.4); Lymphocytes % (auto) 17.4 %; Mean Corpuscular Hemoglobin 26.4 pg (25-34); Mean Corpuscular Hgb Conc 31.7 g/dL (32-36); Mean Corpuscular Volume 83.3 fL (80-100); Mean Platelet Volume 9.4 fL (7.4-10.4); Monocytes # (auto) 0.62 K/uL (0.11-0.59); Monocytes % (auto) 7.8 %; Neutrophils # (auto) 5.59 K/uL (1.4-6.5); Neutrophils % (auto) 69.8 %; Platelet Count 240 K/uL (130-400); RDW Coefficient of Variation 14.6 % (11.5-14.5); RDW Standard Deviation 44.3 fL (36.4-46.3)
[2019-01-22] MEDS: carvediloL 25 MG TAB PO SCH ×2 (07:28→20:59)
[2019-01-22] MEDS: AZITHROMYCIN 250 MG TAB PO SCH (07:29)
[2019-01-22] MEDS: lisinopriL 40 MG TAB PO SCH (07:29)
[2019-01-22] MEDS: PANTOprazole 40 MG TAB PO SCH (07:29)
[2019-01-22 07:38] LABS: Albumin Globulin Ratio 0.6 (0.9-2); Albumin Level 2.2 gm/dl (3.4-5.0); Bilirubin,Total 0.2 mg/dl (0.2-1); Calcium 9.8 mg/dl (8.5-10.1); Est GFR (African American) 38.5; Est GFR (Non-African American) 33.2; Globulin 3.9 gm/dl (2.5-4.0); Total Protein 6.1 gm/dl (6.4-8.2)
[2019-01-22 08:16] LABS: Magnesium 2.1 mg/dl (1.8-2.4)
[2019-01-22] MEDS ORDERED: POTASSIUM CHLORIDE 20 MEQ TABCR PO STA (08:23)
[2019-01-22] MEDS ORDERED: INSULIN GLARGINE SOLOSTAR 100 UNITS/ML 3 ML PEN SC SCH (09:00)
[2019-01-22] MEDS: CLOPIDOGREL BISULFATE 75 MG TAB PO SCH (09:02)
[2019-01-22] MEDS: metOLazone 2.5 MG TABLET PO SCH (09:03)
[2019-01-22] MEDS: FUROSEMIDE 40 MG in SYRINGE 0 ML IV SCH ×2 (09:03→17:36)
[2019-01-22] MEDS: INSULIN ASPART 100 UNITS/ML 3 ML PEN SC SCH ×4 (09:07→21:02)
[2019-01-22] MEDS: HEPARIN SOD 5,000 UNIT/0.5 ML VIAL SQ SCH ×2 (09:09→21:00)
[2019-01-22] MEDS ORDERED: DEXTROSE 50% 50 ML SYRINGE IV PRN (09:30)
[2019-01-22] MEDS ORDERED: GLUCOSE 10 TABS/TUBE PO PRN (09:30)
[2019-01-22] MEDS ORDERED: GLUCAGON FOR INJ 1 MG VIAL IM PRN (09:30)
[2019-01-22] MEDS ORDERED: CARBOHYDRATES FOR HYPOGLYCEMIA PO PRN (09:30)
[2019-01-22] MEDS ORDERED: GLUCOSE 40% GEL 15 GM TUBE PO PRN (09:30)
--- NOTE | 2019-01-22 09:57 | Nephrology Consultation ---
Date of Consultation January 22, 2019 Assessment & Plan (1) Diastolic CHF, acute on chronic: 63-year-old female with stage 3 chronic kidney disease moderate degree proteinuria secondary to diabetic nephropathy and residual renal impairment from prior acute kidney injury. Baseline creatinine has been 1.5-1.6. Admitted to the hospital with progressive shortness of breath over 10 days and found to have hypertensive urgency and acute on chronic diastolic congestive heart failure. At home she was on Lasix 80 milligram p.o. daily, currently on Lasix 40 milligram twice a day and metolazone 2.5 milligram was added yesterday. Renal function has been relatively stable, creatinine 1.7, electrolyte acceptable. Blood pressure much improved. Intake and output in EMR record showed is low urine volume however it is most likely not accurate as overall her volume status improved and shortness of breath resolved. --continue Lasix and metolazone for now, monitor renal function electrolytes closely, if volume status remained stable, consider discontinuing metolazone and try to keep on Lasix only. Continue low-salt diet and fluid restriction. Aim for net negative 0.5 to 1 liter per day --record accurate intake and output --considering being on high dose of diuretics, check magnesium and phosphate Q 48 hours Will follow Thank you for allowing me to participate in your patient's care. It was a pleasure to see Delfina (2) Hypertensive urgency: (3) SOB (shortness of breath): (4) Hyperparathyroidism: (5) CKD (chronic kidney disease), stage III: (6) Anemia: (7) Hypoalbuminemia: History of Present Illness Reason for Consultation: Malignant hypertension, CKD Attending Physician: Chris Teran MD History of Present Illness Mrs. Delfina Reyna is a 63-year-old female with history of stage 3 chronic kidney disease, obesity, hypertension, diabetes mellitus II, hyperlipidemia, and chronic congestive heart failure with diastolic dysfunction. Admitted to the hospital with acute exacerbation of CHF and hypertensive urgency. Nephrology consult requested to assist with volume status with underlying CKD. Electronic medical records are reviewed in detail during patient's visit. She presented to [facility] on with progressive shortness of breath for 10 days. Chest x-ray on admission showed mild bilateral pleural effusion and pulmonary congestion. She was also found to have hypertensive urgency with systolic blood pressure persistently above 200. BNP was markedly elevated and she was found to be more than 5 kg above her prior weight in December. At home she was on Lasix 80 milligram p.o. daily. Diuretic chance to 40 milligram twice a day IV and 2.5 milligram of metolazone since yesterday. Her volume status slightly improved with improvement in blood pressure. Unit record shows still low urine volume however unclear how accurate that is. Renal function staying relatively stable since admission with creatinine around 1.7. Electrolyte has been acceptable. Has stage 3 chronic kidney disease and proteinuria attributable to diabetic nephropathy, baseline creatinine creatinine was 1.3 prior to June 2018 when she was admitted to the hospital we acute respiratory failure with pneumonia and ARDS requiring intubation. Hospital course was complicated by acute kidney injury secondary to possibly ATN creatinine went up above for which eventually improved. Since then her creatinine has been staying around 1.5-1.6 with some variability possibly related to her volume status. 24 hour urine at that time showed more than 1 gram of proteinuria. Other workup was unremarkable. Renal ultrasound and renal artery Doppler was unremarkable. Medical history is also notable for a prior history of systolic dysfunction with an EF <20% that was suspected to be viral or medication (Avandia?) induced. LVEF improved to >50% on echo in June 2018. Cardiac catheterization in 2009 demonstrated mild diffuse coronary artery disease. Currently she complain of feeling tiredness as she has been having repeated episode of hypoglycemia. Blood pressure improved rather rapidly and systolic blood pressure staying around 140s. Shortness of breath much improved. Allergies Allergy/AdvReac Type Severity Reaction Status Date / Time dulaglutide [From Trulicity] Allergy Intermediate Hives Verified 01/20/19 14:43 insulin lispro Allergy Visual Unverified 01/20/19 14:43 [From Humalog U-100 Insulin] Disturbance erythromycin base AdvReac Intermediate Vomiting Verified 01/20/19 14:43 atorvastatin AdvReac Joint Pain Unverified 01/20/19 14:43 Home Medications Home Medications Medication Instructions Recorded Confirmed Type clopidogrel [Plavix] 75 mg PO DAILY 06/30/18 01/20/19 History acetaminophen [Tylenol] 650 mg PO Q4 PRN 08/16/18 01/20/19 History carvedilol 25 mg tablet 50 mg PO BID tab 10/24/18 01/20/19 History lisinopril 40 mg tablet 40 mg PO DAILY #90 tab 11/03/18 01/20/19 Rx pantoprazole 40 mg tablet,delayed 40 mg PO DAILY #90 tab 11/03/18 01/20/19 Rx release furosemide 80 mg tablet 80 mg PO QAM #60 tab 12/26/18 01/20/19 Rx amoxicillin 500 mg PO QID 01/20/19 01/20/19 History insulin aspart U-100 [Novolog 0 unit SC UD 01/20/19 01/20/19 History Flexpen U-100 Insulin] insulin glargine [Lantus U-100 20 unit SUBCUT BID 01/20/19 01/20/19 History Insulin] Patient History Medical History CHF (congestive heart failure) Diabetes Hypertension Surgical History S/P cardiac catheterization Family History Other Coronary heart disease Social History Preferred Language: Ethiopian Communication Ability: Effective Apartment Maintenance Manager Required: No Beliefs That Will Affect Care: None Current Living Situation: Spouse Feels Safe at Home: Yes Smoking Status: Never smoker Hx Alcohol Use: Yes Alcohol type: other Hx Substance Use: No Review of Systems Review of Systems: All systems reviewed & are unremarkable except as noted in HPI & below Physical Exam Constitutional: WD/WN, vitals as above well developed and well nourished; no acute distress Eyes: PERRL, conjunctivae normal, anicteric sclerae ENMT: external ear and nose normal, oropharynx normal Ears: no hearing impairment Neck: trachea midline Respiratory: normal respiratory effort; no respiratory distress and no cough Auscultation: + crackles (At bases bilaterally.) Cardiovascular: Rate/Rhythm: regular rate and regular rhythm Heart Sounds: normal S1 and normal S2 Extremities: + edema (Trace bilateral lower extremity edema) Gastrointestinal (Abdomen): normal bowel sounds, soft, nontender, no hepatosplenomegaly Percussion/Palpation: abdomen nontender, no guarding and abdomen not rigid Musculoskeletal: Extremities: extremities normal to inspection Gait: normal gait Skin: no rashes, warm and dry Neurologic: moves all extremities and awake Psychiatric: A+Ox3, euthymic affect Results & Data Vital Signs (Past 12 Hours) Vital Signs Temp Pulse Pulse Resp BP Pulse Ox 01/22/19 08:48 55 L 20 139/64 92 01/22/19 06:40 62 170/87 H 01/22/19 04:00 36.5 C 63 20 178/72 H 90 01/22/19 01:46 162/73 H 01/22/19 00:59 66 01/21/19 23:23 36.9 C 65 18 170/74 H 91 PG Care Time/CCT Total # of Minutes Spent Total Time Spent with Patient: Total time spent is greater than 50% in coordination of care (as documented) at patient's floor/unit and/or counseling patient: (1) Anemia Anemia type: unspecified type Qualified Code(s): D64.9 - Anemia, unspecified
--- NOTE | 2019-01-22 11:52 | Cardiology Progress Note ---
Date of Service January 22, 2019 Assessment & Plan (1) SOB (shortness of breath): She presented with shortness of breath and leg edema, I believe her shortness of breath is due to fluid retention and congestive heart failure. So far I do not believe she has lost much weight although she has not been having difficulty with shortness of breath here. (2) Diastolic CHF: She has diastolic congestive heart failure, she has a history of cardiomyopathy but her ejection fraction recently was normal. I do not think we need to repeat that measurement. Her heart failure is likely a combination of dietary indiscretion, decreased net diuresis and chronic renal insufficiency. I would recommend diuresis, based on her weight and her intake and output she has not lost much fluid here. We may have to increase her regimen. When she goes home I believe we should treat her with an extra dose of Lasix in the afternoon as she is taking for a weight gain, however I would also add Zaroxolyn to her regimen as a back-up in case the extra dose of diuretic does not eliminate her weight gain. That may keep her from presenting again to the emergency room. I believe she can handle the complication of this. I do not believe she has diuresed much as yet. Her intake and output do not reflected, her weight this morning if accurate shows a slight weight gain and she does not feel that she is diuresed much. She may need increased diuretics. I am going to repeat her weight to make sure it was accurate however but given her leg edema and poor intake and output she could certainly use more diuresis. (3) Non-ischemic cardiomyopathy: She has a nonischemic cardiomyopathy in the past, however that has normalized over the years and recent echocardiogram showed normal LV function. (4) Hypertension: She had significant hypertension on arrival and she still is hypertensive for the most part although her last measurement was good. She is on high-dose carvedilol and lisinopril which she is on at home and here and I agree with continuing these. She will likely need something else for blood pressure control. Accelerated blood pressure may have been in part related to her presentation although probably not the primary reason. Subjective She is feeling relatively well today, she is eating lunch at her bedside. She reports that she has not diuresed much but she feels she has sweated a good deal which she feels is unusual for her. She does not recall getting weighed today although there is a weight which is little higher than yesterday, she notes that her legs are still edematous. No shortness of breath. Physical Exam Physical Exam: Constitutional: Alert, cooperative and in no distress. HEENT: Unremarkable Neck: No jugular venous distention, carotid pulses are normal and equal bilaterally without bruits. Pulmonary: Clear to auscultation bilaterally. Cardiac: Regular rhythm with no murmur, gallop or rub. Abdomen: Soft, nontender with normal bowel sounds. Extremities: +3 bilateral pretibial edema. Neurologic: No focal findings. Skin: No rash, ecchymoses or petechiae. Results & Data Vital Signs (Past 12 Hours) Vital Signs Temp Pulse Pulse Resp BP Pulse Ox 01/22/19 08:48 55 L 20 139/64 92 01/22/19 06:40 62 170/87 H 01/22/19 04:00 36.5 C 63 20 178/72 H 90 01/22/19 01:46 162/73 H 01/22/19 00:59 66 Laboratory Results Abnormal lab results 01/21/19 01/22/19 01/22/19 Range/Units 19:51 06:30 06:30 Hgb 11.1 L (12.0-16.0) g/dL Hct 35.0 L (37-47) % MCHC 31.7 L (32-36) g/dL RDW Coeff of Braeden 14.6 H (11.5-14.5) % George # (Auto) 0.62 H (0.11-0.59) K/uL Potassium (3.5-5.1) mmol/L Chloride 111 H (98-107) mmol/L BUN 31 H (7-18) mg/dl Creatinine 1.63 H (0.6-1.2) mg/dl Glucose 41 L* (70-99) mg/dl POC Glucose 133 H (70-99) AST (15-37) U/L Total Protein 6.1 L (6.4-8.2) gm/dl Albumin 2.2 L (3.4-5.0) gm/dl Albumin/Globulin Ratio 0.6 L (0.9-2) 01/22/19 01/22/19 01/22/19 Range/Units 07:14 07:15 07:43 Hgb (12.0-16.0) g/dL Hct (37-47) % MCHC (32-36) g/dL RDW Coeff of Braeden (11.5-14.5) % George # (Auto) (0.11-0.59) K/uL Potassium 3.0 L (3.5-5.1) mmol/L Chloride (98-107) mmol/L BUN (7-18) mg/dl Creatinine (0.6-1.2) mg/dl Glucose (70-99) mg/dl POC Glucose 55 L* 52 L* (70-99) AST 12 L (15-37) U/L Total Protein (6.4-8.2) gm/dl Albumin (3.4-5.0) gm/dl Albumin/Globulin Ratio (0.9-2) 01/22/19 Range/Units 11:36 Hgb (12.0-16.0) g/dL Hct (37-47) % MCHC (32-36) g/dL RDW Coeff of Braeden (11.5-14.5) % George # (Auto) (0.11-0.59) K/uL Potassium (3.5-5.1) mmol/L Chloride (98-107) mmol/L BUN (7-18) mg/dl Creatinine (0.6-1.2) mg/dl Glucose (70-99) mg/dl POC Glucose 206 H (70-99) AST (15-37) U/L Total Protein (6.4-8.2) gm/dl Albumin (3.4-5.0) gm/dl Albumin/Globulin Ratio (0.9-2) Diagnostic Findings Telemetry: Sinus rhythm in the 50s to 60s. PG Care Time/CCT Total # of Minutes Spent Total Time Spent with Patient: Total time spent is greater than 50% in coordination of care (as documented) at patient's floor/unit and/or counseling patient: (1) Hypertension Hypertension type: essential hypertension Qualified Code(s): I10 - Essential (primary) hypertension
[2019-01-22 17:57] LABS: BUN Creatinine Ratio 18.4 (10-20); Calcium 9.4 mg/dl (8.5-10.1); Creatinine Clr Calc Pharmacy 41.7 ml/min; Est GFR (African American) 35.1; Est GFR (Non-African American) 30.2; Potassium 3.4 mmol/L (3.5-5.1)
--- NOTE | 2019-01-22 19:40 | Hospitalist Progress Note ---
Date of Service January 22, 2019 Assessment & Plan (1) Pneumonia: Given initial improvement with amoxicillin and one sided consolidation on CXR suspect pneumonia is main cause of her current illness. Procalcitonin WNL but likely pneumonia has been partially treated with amoxicillin she has been taking since Wednesday. In addition this is similar to her clinical picture on admission in June-July when she became critically unwell requiring intubation therefore would be prudent to treat early. Continue Unasyn (7days, can be switched to augmentin once clinically improving) and azithromycin 5 days). (2) UTI (urinary tract infection): Treated by patient with amoxicillin with resolution of symptoms. UA with 3+ protein, 1+ glucose, 2+ blood (persistent from prior UAs) No nephrology/urology follow up despite persistent microscopic hematuria - will need to set up on discharge. (3) CKD (chronic kidney disease), stage III: Cr stable since ATN from sepsis in July this year. Will consult nephrology given patient's recent history with ATN and sepsis in July on back ground of diabetic nephropathy and A4 proteinuria to avoid going into acute renal failure with difficult fluid management and blood pressure control with this patient. Continue IV lasix BID and low dose metolazone (started today). Strict I&Os (patient reports multiple missed urine outputs as not provided with bowl to measure) Daily weights Appreciate nephrology recommendations (4) Diastolic CHF, acute on chronic: Suspect primarily more of a renal rather than cardiac fluid balance issue given hypoalbuminemia. However suspect moderate mitral regurgitation also contributing to pulmonary edema. Appreciate cardiology recommendations (5) Mitral regurgitation: as above (6) Hypertensive urgency: Will continue with lisinopril, IV lasix and add metolazone. Recently discontinued amlodipine due to leg swelling. Appears better controlled today. Unable to increase carvedilol due to HR. Try to avoid vasodilators due to leg swelling. Hydralazine PRN (7) Hypertension: as above (8) Diabetes: Reduced lantus to 10 units BID due to hypoglycemic episode this morning. Continue ACHS Novolog (9) Hyperlipidemia: (10) History of CVA (cerebrovascular accident): Continue clopidogrel Intolerant to statins (11) Morbid obesity: (12) DVT prophylaxis: Heparin 5000 units BID SQ (13) Discharge planning issues: PT/OT Subjective Patient feeling well today. On 2L nasal cannula but not feeling significantly short of breath. BP appears better controlled. No chest pain. Does not feel her le Review of Systems Review of Systems: All systems reviewed & are unremarkable except as noted in HPI & below Results & Data Vital Signs (Past 12 Hours) Vital Signs Temp Pulse Pulse Resp BP BP Pulse Ox 01/22/19 16:26 85 01/22/19 16:16 164/73 H 01/22/19 15:17 97.3 F L 51 L 20 184/61 H 92 01/22/19 12:35 97.3 F L 60 16 138/78 92 01/22/19 11:00 96.4 F L 01/22/19 08:48 55 L 20 139/64 92 PG Care Time/CCT Total # of Minutes Spent Total Time Spent with Patient: Total time spent is greater than 50% in coordination of care (as documented) at patient's floor/unit and/or counseling patient: (1) UTI (urinary tract infection) Urinary tract infection type: urethritis Qualified Code(s): N34.2 - Other urethritis (2) Diabetes Diabetes mellitus complication status: without complication Diabetes mellitus 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 container terminal insulin use: with 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 container terminal use Diabetes mellitus type: type 2 Qualified Code(s): E11.9 - Type 2 diabetes mellitus without complications; Z79.4 - halfway (current) 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
[2019-01-22] MEDS: INSULIN GLARGINE SOLOSTAR 100 UNITS/ML 3 ML PEN SC SCH (21:02)
[2019-01-22] MEDS: ZOLPIDEM TARTRATE 5 MG TAB PO PRN (23:43)
[2019-01-23] MEDS: ZOLPIDEM TARTRATE 5 MG TAB PO PRN (01:55)
[2019-01-23] MEDS: AMPICILLIN/SULBACTAM SOD 3,000 MG in 0.9 % SODIUM CHLORIDE 100 ML IV SCH ×3 (05:21→18:45)
[2019-01-23] MEDS: HydrALAZINE HCL 20 MG/ML VIAL IV PRN (05:21)
[2019-01-23 07:24] LABS: Basophils # (auto) 0.04 K/uL (0-0.2); Basophils % (auto) 0.6 %; Eosinophils # (auto) 0.28 K/uL (0-0.5); Eosinophils % (auto) 4.4 %; Hematocrit (blood only) 30.8 % (37-47); Hemoglobin 9.6 g/dL (12.0-16.0); Immature Granulocytes # (auto) 0.01 K/uL (0.00-0.02); Immature Granulocytes % (auto) 0.2 %; Lymphocytes # (auto) 1.94 K/uL (1.2-3.4); Lymphocytes % (auto) 30.3 %; Mean Corpuscular Hemoglobin 26.1 pg (25-34); Mean Corpuscular Hgb Conc 31.2 g/dL (32-36); Mean Corpuscular Volume 83.7 fL (80-100); Monocytes # (auto) 0.57 K/uL (0.11-0.59); Monocytes % (auto) 8.9 %; Neutrophils # (auto) 3.57 K/uL (1.4-6.5); Neutrophils % (auto) 55.6 %; Platelet Count 209 K/uL (130-400); RDW Coefficient of Variation 14.6 % (11.5-14.5); RDW Standard Deviation 44.9 fL (36.4-46.3); Red Blood Count 3.68 M/uL (4.2-5.4); White Blood Count 6.41 K/uL (4.8-10.8)
[2019-01-23 07:54] LABS: BUN Creatinine Ratio 16.9 (10-20); Calcium 9.4 mg/dl (8.5-10.1); Creatinine Clr Calc Pharmacy 37.2 ml/min; Est GFR (African American) 30.8; Est GFR (Non-African American) 26.6; Magnesium 2.1 mg/dl (1.8-2.4)
[2019-01-23 07:55] LABS: Phosphorus 3.6 mg/dl (2.5-4.9)
[2019-01-23] MEDS: INSULIN ASPART 100 UNITS/ML 3 ML PEN SC SCH ×4 (09:47→21:09)
[2019-01-23] MEDS: INSULIN GLARGINE SOLOSTAR 100 UNITS/ML 3 ML PEN SC SCH ×2 (09:48→21:08)
[2019-01-23] MEDS: HEPARIN SOD 5,000 UNIT/0.5 ML VIAL SQ SCH ×2 (09:49→21:08)
[2019-01-23] MEDS: FUROSEMIDE 40 MG in SYRINGE 0 ML IV SCH ×2 (09:51→18:41)
[2019-01-23] MEDS: carvediloL 25 MG TAB PO SCH ×2 (09:51→21:14)
[2019-01-23] MEDS: CLOPIDOGREL BISULFATE 75 MG TAB PO SCH (09:52)
[2019-01-23] MEDS: PANTOprazole 40 MG TAB PO SCH (09:52)
[2019-01-23] MEDS: metOLazone 2.5 MG TABLET PO SCH (09:52)
[2019-01-23] MEDS: AZITHROMYCIN 250 MG TAB PO SCH (09:53)
[2019-01-23] MEDS: lisinopriL 40 MG TAB PO SCH (09:53)
--- NOTE | 2019-01-23 09:54 | Nephrology Progress Note ---
Date of Service January 23, 2019 Assessment & Plan (1) Diastolic CHF, acute on chronic: Gladys Dunlap is a 63-year-old female with CKD 3 A3 secondary to diabetic nephropathy. Baseline creatinine has been 1.5-1.6. She was admitted to the hospital with progressive shortness of breath and hypertensive urgency with acute on chronic diastolic congestive heart failure. At home she was on Lasix 80 milligram p.o. daily; currently on Lasix 40 milligram twice a day and metolazone 2.5 milligram was added over the weekend. Unfortunately diuresis has been slow. Patient is net-590 milliliters in the past 24 hours. Creatinine rising 1.95 milligram/deciliter this morning. Metabolic profile also notable for hypokalemia reflective diuresis. --continue Lasix and metolazone for now, monitor renal function electrolytes closely. Continue low-salt diet and fluid restriction. Aim for net negative 0.5 to 1 liter per day --record accurate intake and output --considering being on high dose of diuretics, check magnesium and phosphate Q 48 hours --repeat metabolic profile this afternoon post potassium replacement --continue lisinopril 40 milligrams daily for now. --avoid potassium-sparing diuretic condition at this time pending stabilization of serum creatinine. (2) Hypertensive urgency: (3) SOB (shortness of breath): (4) Hyperparathyroidism: (5) CKD (chronic kidney disease), stage III: (6) Anemia: (7) Hypoalbuminemia: Subjective No acute events overnight. Edema persists. Denies any urinary complaints. Denies dyspnea. Reports significant fatigue. No fevers or chills. No cough. Review of Systems Review of Systems: All systems reviewed & are unremarkable except as noted in HPI & below Physical Exam 2 Constitutional: well developed; no acute distress Eyes: no conjunctival abnormality and no scleral abnormality ENMT: Mouth: no oral mucosal abnormality and oral mucous membranes not dry Neck: normal visual inspection; + trachea not midline Respiratory: normal respiratory effort Auscultation: lungs clear to auscultation bilaterally and + diminished lung sounds Cardiovascular: Rate/Rhythm: regular rate Heart Sounds: normal S1 and normal S2 Extremities: + edema Musculoskeletal: Extremities: no cyanosis and no clubbing Skin: normal turgor; no lesions Neurologic: Motor/Sensory: no tremor and no asterixis Psychiatric: Orientation: alert and oriented x 3 Results & Data Vital Signs (Past 12 Hours) Vital Signs Temp Pulse Pulse Resp BP Pulse Ox 01/23/19 07:33 36.7 C 78 16 162/73 H 92 01/23/19 06:56 85 120/70 01/23/19 03:55 36.6 C 83 20 186/83 H 91 01/23/19 00:13 71 Laboratory Results Laboratory Results - last 24 hr 01/22/19 01/22/19 01/22/19 11:36 15:10 16:42 WBC RBC Hgb Hct MCV MCH MCHC RDW Std Deviation RDW Coeff of Braeden Plt Count MPV Immature Gran % (Auto) Neut % (Auto) Lymph % (Auto) Benton % (Auto) Eos % (Auto) Baso % (Auto) Immature Gran # (Auto) Neut # (Auto) Lymph # (Auto) Benton # (Auto) Eos # (Auto) Baso # (Auto) Sodium Potassium Chloride Carbon Dioxide Anion Gap BUN Creatinine Est Cr Clr Drug Dosing Est GFR ( Amer) Est GFR (Non-Af Amer) BUN/Creatinine Ratio Glucose POC Glucose 206 H 234 H 140 H Calcium Phosphorus Magnesium 01/22/19 01/22/19 01/22/19 17:28 20:24 23:49 WBC RBC Hgb Hct MCV MCH MCHC RDW Std Deviation RDW Coeff of Braeden Plt Count MPV Immature Gran % (Auto) Neut % (Auto) Lymph % (Auto) Benton % (Auto) Eos % (Auto) Baso % (Auto) Immature Gran # (Auto) Neut # (Auto) Lymph # (Auto) Benton # (Auto) Eos # (Auto) Baso # (Auto) Sodium 140 Potassium 3.4 L Chloride 108 H Carbon Dioxide 29 Anion Gap 3.0 BUN 32 H Creatinine 1.76 H Est Cr Clr Drug Dosing 41.7 Est GFR ( Amer) 35.1 Est GFR (Non-Af Amer) 30.2 BUN/Creatinine Ratio 18.4 Glucose 115 H POC Glucose 145 H 107 H Calcium 9.4 Phosphorus Magnesium 01/23/19 01/23/19 01/23/19 01:57 07:03 07:03 WBC 6.41 RBC 3.68 L Hgb 9.6 L Hct 30.8 L MCV 83.7 MCH 26.1 MCHC 31.2 L RDW Std Deviation 44.9 RDW Coeff of Braeden 14.6 H Plt Count 209 MPV 10.0 Immature Gran % (Auto) 0.2 Neut % (Auto) 55.6 Lymph % (Auto) 30.3 Benton % (Auto) 8.9 Eos % (Auto) 4.4 Baso % (Auto) 0.6 Immature Gran # (Auto) 0.01 Neut # (Auto) 3.57 Lymph # (Auto) 1.94 Benton # (Auto) 0.57 Eos # (Auto) 0.28 Baso # (Auto) 0.04 Sodium 143 Potassium 3.0 L Chloride 108 H Carbon Dioxide 28 Anion Gap 7.0 BUN 33 H Creatinine 1.96 H Est Cr Clr Drug Dosing 37.2 Est GFR ( Amer) 30.8 Est GFR (Non-Af Amer) 26.6 BUN/Creatinine Ratio 16.9 Glucose 110 H POC Glucose 112 H Calcium 9.4 Phosphorus 3.6 Magnesium 2.1 01/23/19 07:47 WBC RBC Hgb Hct MCV MCH MCHC RDW Std Deviation RDW Coeff of Braeden Plt Count MPV Immature Gran % (Auto) Neut % (Auto) Lymph % (Auto) Benton % (Auto) Eos % (Auto) Baso % (Auto) Immature Gran # (Auto) Neut # (Auto) Lymph # (Auto) Benton # (Auto) Eos # (Auto) Baso # (Auto) Sodium Potassium Chloride Carbon Dioxide Anion Gap BUN Creatinine Est Cr Clr Drug Dosing Est GFR ( Amer) Est GFR (Non-Af Amer) BUN/Creatinine Ratio Glucose POC Glucose 123 H Calcium Phosphorus Magnesium PG Care Time/CCT Total # of Minutes Spent Total Time Spent with Patient: Total time spent is greater than 50% in coordination of care (as documented) at patient's floor/unit and/or counseling patient: (1) Anemia Anemia type: unspecified type Qualified Code(s): D64.9 - Anemia, unspecified
[2019-01-23] MEDS ORDERED: PHARMACY GLYCEMIC MGMT CONSULT PRN (11:00)
--- NOTE | 2019-01-23 11:29 | Cardiology Progress Note ---
Date of Service January 23, 2019 Assessment & Plan (1) Diastolic CHF: The patient continues to diurese with Lasix 80 mg IV twice daily and 2.5 mg of metolazone. She was following daily weights and sliding-scale diuretics as an outpatient. (2) Non-ischemic cardiomyopathy: As above, nonobstructive coronary disease at some cardiac catheterization August 2009. An echocardiogram performed in June of this year noted normal left ventricular systolic function, mild LVH, and moderate mitral regurgitation. No need to repeat this study at this time. (3) CAD (coronary artery disease): Nonobstructive coronary disease by cardiac catheterization in August 2009. (4) Hypertension: Adequate control on current medical regimen. Subjective The patient is resting comfortably in bed without complaints of chest pain. Her dyspnea is improving. Physical Exam Physical Exam: In general this is a well-developed well-nourished white female in no acute distress. HEENT exam is negative. Neck is supple with full carotid upstrokes. There are no carotid bruits. Jugular venous pressure is 8 cm of water at 90. There is no thyromegaly. Cardiovascular exam reveals a regular rhythm with a normal S1 and S2. No S3, S4, or murmurs are noted. Lungs are clear without rales, rhonchi, or wheezes. Abdomen is soft and nontender without bruits. Extremities reveal intact radial artery and posterior tibial pulses bilaterally. There is trace to 1+ pretibial edema. Results & Data Vital Signs (Past 12 Hours) Vital Signs Temp Pulse Pulse Resp BP Pulse Ox 01/23/19 07:33 36.7 C 78 16 162/73 H 92 01/23/19 06:56 85 120/70 01/23/19 03:55 36.6 C 83 20 186/83 H 91 01/23/19 00:13 71 Laboratory Results Monitor monitors benign. PG Care Time/CCT Total # of Minutes Spent Total Time Spent with Patient: Total time spent is greater than 50% in coordination of care (as documented) at patient's floor/unit and/or counseling patient: (1) Hypertension Hypertension type: essential hypertension Qualified Code(s): I10 - Essential (primary) hypertension
[2019-01-23] MEDS: POTASSIUM CHLORIDE 20 MEQ TABCR PO SCH ×2 (12:30→21:14)
--- NOTE | 2019-01-23 15:45 | Pharmacy Report ---
Pharmacy Glycemic Short Note 2 - Date of Service January 23, 2019 - Glycemic Short BSG Results (Last 24 hours): 01/22/19 01/22/19 01/22/19 16:42 17:28 20:24 Glucose 115 H POC Glucose 140 H 145 H 01/22/19 01/23/19 01/23/19 23:49 01:57 07:03 Glucose 110 H POC Glucose 107 H 112 H 01/23/19 01/23/19 07:47 11:36 Glucose POC Glucose 123 H 133 H OUTPATIENT ANTIDIABETIC REGIMEN: * Lantus 20 units SQ BID * Novolog SSI * HbA1c: 8.2% (01/21/19) ASSESSMENT: * Ms Ryena is a 63yo diabetic female admitted with CHF exacerbation. * BSGs were low overnight 2 nights ago, but have been very well-controlled since Lantus dose was reduced. * Novolog parameters adjusted slightly to provide additional prandial coverage. PLAN FOR INPATIENT GLYCEMIC CONTROL: * Hold outpatient oral diabetes medications * Basal insulin * Lantus 10 units SQ BID * Bolus insulin * NovoLog per scale ACHS or Q6hrs while NPO * Goal Range: Low 110 mg/dL - High 140 mg/dL * Correction Factor: 20 mg/dL/unit * Nutritional / Prandial insulin per carb ratio of 1 unit per 7 grams CHO consumed
[2019-01-23 18:42] LABS: Creatinine Clr Calc Pharmacy 28.3 ml/min; Est GFR (African American) 22.2; Est GFR (Non-African American) 19.1; Potassium 3.7 mmol/L (3.5-5.1)
--- NOTE | 2019-01-23 23:02 | Hospitalist Progress Note ---
Date of Service January 23, 2019 Assessment & Plan (1) Pneumonia: Given initial improvement with amoxicillin and one sided consolidation on CXR suspect pneumonia is main cause of her current illness. Procalcitonin WNL but likely pneumonia has been partially treated with amoxicillin she has been taking since Wednesday. In addition this is similar to her clinical picture on admission in June-July when she became critically unwell requiring intubation therefore would be prudent to treat early. Continue Unasyn (7days, can be switched to augmentin once clinically improving) and azithromycin 5 days). (2) UTI (urinary tract infection): Treated by patient with amoxicillin with resolution of symptoms. UA with 3+ protein, 1+ glucose, 2+ blood (persistent from prior UAs) No nephrology/urology follow up despite persistent microscopic hematuria - will need to set up on discharge. (3) CKD (chronic kidney disease), stage III: Cr stable since ATN from sepsis in July this year. Will consult nephrology given patient's recent history with ATN and sepsis in July on back ground of diabetic nephropathy and A4 proteinuria to avoid going into acute renal failure with difficult fluid management and blood pressure control with this patient. Continue IV lasix BID and low dose metolazone. Held morning dose due to increase in creatinine, will resume evening dose of lasix (01/23) Strict I&Os (patient reports multiple missed urine outputs as not provided with bowl to measure) Daily weights Appreciate nephrology recommendations (4) Diastolic CHF, acute on chronic: Suspect primarily more of a renal rather than cardiac fluid balance issue given hypoalbuminemia. However suspect moderate mitral regurgitation also contributing to pulmonary edema. Appreciate cardiology recommendations Patient currently on diuretics. will monitor. (5) Mitral regurgitation: as above (6) Hypertensive urgency: Will continue with lisinopril, IV lasix and add metolazone. Recently discontinued amlodipine due to leg swelling. Appears better controlled today. Unable to increase carvedilol due to HR. Try to avoid vasodilators due to leg swelling. Hydralazine PRN (7) Hypertension: as above (8) Diabetes: Reduced lantus to 10 units BID due to hypoglycemic episode this morning. Continue ACHS Novolog (9) Hyperlipidemia: (10) History of CVA (cerebrovascular accident): Continue clopidogrel Intolerant to statins (11) Morbid obesity: (12) DVT prophylaxis: Heparin 5000 units BID SQ (13) Discharge planning issues: PT/OT (14) Acute kidney failure: Creatinine has been slowly increasing. Will repeat creatinine in the afternoon. Levels are now above 2. Will also consult nephrology. Subjective Patient reports feeling better. She is breathing better. She still reports some swelling in her lower extremities. She also reports feeling fatigued. She states she has scabs on her right lower leg. Review of Systems Review of Systems: All systems reviewed & are unremarkable except as noted in HPI & below Physical Exam Physical Exam: GENERAL : No acute distress EYES: No icterus, gaze conjugate NOSE: No evidence of epistaxis MOUTH: No lesions or candidiasis, mucosa moist NECK: Supple LUNGS: Decreased breath sounds at bases HEART: Regular, rate controlled ABDOMEN: Soft, NT, ND, BS Present EXTREMITIES: Swelling of the legs noted with no erythema, pedal pulses intact NEURO: A&OX3 Results & Data Vital Signs (Past 12 Hours) Vital Signs Temp Pulse Resp BP Pulse Ox 01/23/19 19:24 37.0 C 68 18 160/84 H 93 01/23/19 15:45 36.9 C 70 16 171/83 H 95 01/23/19 11:56 36.7 C 71 16 151/74 H 93 PG Care Time/CCT Total # of Minutes Spent Total Time Spent with Patient: Total time spent is greater than 50% in coordination of care (as documented) at patient's floor/unit and/or counseling patient: (1) UTI (urinary tract infection) Urinary tract infection type: urethritis Qualified Code(s): N34.2 - Other urethritis (2) Diabetes Diabetes mellitus complication status: without complication Diabetes mellitus jail insulin use: with jail use Diabetes mellitus type: type 2 Qualified Code(s): E11.9 - Type 2 diabetes mellitus without complications; Z79.4 - 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
[2019-01-24] MEDS: AMPICILLIN/SULBACTAM SOD 3,000 MG in 0.9 % SODIUM CHLORIDE 100 ML IV SCH ×5 (00:12→23:44)
[2019-01-24] MEDS: ZOLPIDEM TARTRATE 5 MG TAB PO PRN ×2 (00:12→23:21)
[2019-01-24] MEDS: HydrALAZINE HCL 20 MG/ML VIAL IV PRN (04:56)
[2019-01-24 06:43] LABS: Basophils # (auto) 0.05 K/uL (0-0.2); Basophils % (auto) 0.8 %; Eosinophils # (auto) 0.36 K/uL (0-0.5); Eosinophils % (auto) 6.1 %; Hematocrit (blood only) 30.9 % (37-47); Hemoglobin 9.9 g/dL (12.0-16.0); Immature Granulocytes # (auto) 0.01 K/uL (0.00-0.02); Immature Granulocytes % (auto) 0.2 %; Lymphocytes # (auto) 1.99 K/uL (1.2-3.4); Lymphocytes % (auto) 33.7 %; Mean Corpuscular Hemoglobin 26.5 pg (25-34); Mean Corpuscular Volume 82.8 fL (80-100); Mean Platelet Volume 9.8 fL (7.4-10.4); Monocytes # (auto) 0.52 K/uL (0.11-0.59); Monocytes % (auto) 8.8 %; Neutrophils # (auto) 2.98 K/uL (1.4-6.5); Neutrophils % (auto) 50.4 %; Platelet Count 225 K/uL (130-400); RDW Coefficient of Variation 14.7 % (11.5-14.5); RDW Standard Deviation 44.5 fL (36.4-46.3); Red Blood Count 3.73 M/uL (4.2-5.4); White Blood Count 5.91 K/uL (4.8-10.8)
[2019-01-24 07:17] LABS: BUN Creatinine Ratio 15.5 (10-20); Calcium 9.4 mg/dl (8.5-10.1); Creatinine Clr Calc Pharmacy 31.6 ml/min; Est GFR (African American) 25.5; Potassium 3.3 mmol/L (3.5-5.1)
[2019-01-24 07:22] LABS: Ferritin 117.7 ng/ml (8-388)
[2019-01-24] MEDS: INSULIN ASPART 100 UNITS/ML 3 ML PEN SC SCH ×4 (08:48→20:38)
[2019-01-24] MEDS: POTASSIUM CHLORIDE 20 MEQ TABCR PO SCH ×3 (08:49→20:38)
[2019-01-24] MEDS: PANTOprazole 40 MG TAB PO SCH (08:49)
[2019-01-24] MEDS: CLOPIDOGREL BISULFATE 75 MG TAB PO SCH (08:49)
[2019-01-24] MEDS: carvediloL 25 MG TAB PO SCH ×2 (08:50→20:37)
[2019-01-24] MEDS: DOCUSATE SODIUM/SENNA 50/8.6MG TAB PO SCH (08:50)
[2019-01-24] MEDS: AZITHROMYCIN 250 MG TAB PO SCH (08:50)
[2019-01-24] MEDS: FUROSEMIDE 40 MG in SYRINGE 0 ML IV SCH ×2 (08:51→17:25)
[2019-01-24] MEDS: HEPARIN SOD 5,000 UNIT/0.5 ML VIAL SQ SCH ×2 (08:51→20:37)
[2019-01-24] MEDS: metOLazone 2.5 MG TABLET PO SCH (08:51)
[2019-01-24] MEDS: INSULIN GLARGINE SOLOSTAR 100 UNITS/ML 3 ML PEN SC SCH ×2 (08:52→20:38)
--- NOTE | 2019-01-24 10:38 | Nephrology Progress Note ---
Date of Service January 24, 2019 Assessment & Plan (1) Diastolic CHF, acute on chronic: Gladys Dunlap is a 63-year-old female with CKD 3 A3 secondary to diabetic nephropathy. Baseline creatinine has been 1.5-1.6. She was admitted to the hospital with progressive shortness of breath and hypertensive urgency with acute on chronic diastolic congestive heart failure. At home she was on Lasix 80 milligram p.o. daily; currently on Lasix 40 milligram twice a day and metolazone 2.5 milligram was added over the weekend. Unfortunately diuresis has been slow. Patient is net-590 milliliters in the past 24 hours. Creatinine rising to 2.3 milligram/deciliter this morning. Metabolic profile also notable for hypokalemia reflective diuresis. --continue Lasix and metolazone for now, monitor renal function electrolytes closely. Continue low-salt diet and fluid restriction. Aim for net negative 0.5 to 1 liter per day --record accurate intake and output --considering being on high dose of diuretics, check magnesium and phosphate Q 48 hours --repeat metabolic profile this afternoon post potassium replacement --continue lisinopril 40 milligrams daily for now. --avoid potassium-sparing diuretic condition at this time pending stabilization of serum creatinine. --no current need for dialysis. --lisinopril has been held. (2) Hypertensive urgency: (3) SOB (shortness of breath): (4) Hyperparathyroidism: (5) CKD (chronic kidney disease), stage III: (6) Anemia: (7) Hypoalbuminemia: Subjective No acute events overnight. Gladys Dunlap was resting comfortably in bed this morning. Edema is markedly improved. Input and output has not been accurately documented. Overall, she feels well. She is breathing comfortably. She denies any urinary complaints. Review of Systems Review of Systems: All systems reviewed & are unremarkable except as noted in HPI & below Physical Exam Constitutional: well developed; no acute distress Eyes: no conjunctival abnormality and no scleral abnormality ENMT: Mouth: no oral mucosal abnormality and oral mucous membranes not dry Neck: normal visual inspection; + trachea not midline Respiratory: normal respiratory effort Auscultation: lungs clear to auscultation bilaterally and + diminished lung sounds Cardiovascular: Rate/Rhythm: regular rate Heart Sounds: normal S1 and normal S2 Extremities: + edema Musculoskeletal: Extremities: no cyanosis and no clubbing Skin: normal turgor; no lesions Neurologic: Motor/Sensory: no tremor and no asterixis Psychiatric: Orientation: alert and oriented x 3 Results & Data Vital Signs (Past 12 Hours) Vital Signs Temp Pulse Pulse Resp BP BP Pulse Ox 01/24/19 07:40 67 01/24/19 07:39 36.7 C 65 20 141/64 H 95 01/24/19 06:22 68 142/70 H 01/24/19 03:56 69 01/24/19 03:36 36.4 C L 92 H 16 187/90 H 92 01/24/19 01:07 69 01/23/19 23:48 37.0 C 69 20 163/93 H 95 PG Care Time/CCT Total # of Minutes Spent Total Time Spent with Patient: Total time spent is greater than 50% in coordination of care (as documented) at patient's floor/unit and/or counseling patient: (1) Anemia Anemia type: unspecified type Qualified Code(s): D64.9 - Anemia, unspecified
--- NOTE | 2019-01-24 13:13 | Cardiology Progress Note ---
Date of Service January 24, 2019 Assessment & Plan (1) Diastolic CHF: The patient remains on Lasix 80 mg IV twice daily and 2.5 mg of metolazone. Lisinopril was placed on hold by Dr. Garcia. She was following daily weights and sliding-scale diuretics as an outpatient. (2) Non-ischemic cardiomyopathy: Nonobstructive coronary disease at cardiac catheterization August 2009. An echocardiogram performed in June noted normal left ventricular systolic fun ction, mild LVH, and moderate mitral regurgitation. (3) CAD (coronary artery disease): Nonobstructive coronary artery disease by catheterization in August 2009. (4) Hypertension: Adequate control on current medical regimen. Subjective The patient is resting comfortably been without complaints of chest pain or dyspnea. Physical Exam Physical Exam: In general this is a well-developed well-nourished white female in no acute distress. HEENT exam is negative. Neck is supple with full carotid upstrokes. There are no carotid bruits. Jugular venous pressure is 8 cm of water at 90. There is no thyromegaly. Cardiovascular exam reveals a regular rhythm with a normal S1 and S2. No S3, S4, or murmurs are noted. Lungs are clear without rales, rhonchi, or wheezes. Abdomen is soft and nontender without bruits. Extremities reveal intact radial artery and posterior tibial pulses bilaterally. There is trace to 1+ pretibial edema. Results & Data Vital Signs (Past 12 Hours) Vital Signs Temp Pulse Pulse Resp BP BP Pulse Ox 01/24/19 11:29 36.7 C 66 18 159/85 H 95 01/24/19 07:40 67 01/24/19 07:39 36.7 C 65 20 141/64 H 95 01/24/19 06:22 68 142/70 H 01/24/19 03:56 69 01/24/19 03:36 36.4 C L 92 H 16 187/90 H 92 Laboratory Results bargeman is benign. PG Care Time/CCT Total # of Minutes Spent Total Time Spent with Patient: Total time spent is greater than 50% in coordination of care (as documented) at patient's floor/unit and/or counseling patient: (1) Hypertension Hypertension type: essential hypertension Qualified Code(s): I10 - Essential (primary) hypertension
[2019-01-24 19:50] LABS: Creatinine Clr Calc Pharmacy 28.7 ml/min; Est GFR (African American) 22.7; Est GFR (Non-African American) 19.6; Potassium 3.8 mmol/L (3.5-5.1)
--- NOTE | 2019-01-24 23:42 | Hospitalist Progress Note ---
Date of Service January 24, 2019 Assessment & Plan (1) Mitral regurgitation: as above (2) Pneumonia: Given initial improvement with amoxicillin and one sided consolidation on CXR suspect pneumonia is main cause of her current illness. Procalcitonin WNL but likely pneumonia has been partially treated with amoxicillin she has been taking since Wednesday. In addition this is similar to her clinical picture on admission in June-July when she became critically unwell requiring intubation therefore would be prudent to treat early. Switch to augmentin (7days, ) and azithromycin 5 days). (3) UTI (urinary tract infection): Treated by patient with amoxicillin with resolution of symptoms. UA with 3+ protein, 1+ glucose, 2+ blood (persistent from prior UAs) No nephrology/urology follow up despite persistent microscopic hematuria - will need to set up on discharge. (4) CKD (chronic kidney disease), stage III: Cr stable since ATN from sepsis in July this year. Will consult nephrology given patient's recent history with ATN and sepsis in July on back ground of diabetic nephropathy and A4 proteinuria to avoid going into acute renal failure with difficult fluid management and blood pressure control with this patient. Continue IV lasix BID and low dose metolazone. Held morning dose due to increase in creatinine, will resume evening dose of lasix (01/23) Strict I&Os (patient reports multiple missed urine outputs as not provided with bowl to measure) Daily weights Appreciate nephrology recommendations (5) Diastolic CHF, acute on chronic: This appears to be the primary issue for her hospital stay. Will continue patient on lasix. Creatinine did increase but has remained relatively stable. Appreciate cardiology recommendations Patient will remain on this.. will monitor. (6) Hypertensive urgency: Will continue with lisinopril, IV lasix and add metolazone. Recently discontinued amlodipine due to leg swelling. Appears to be relatively controlled. Unable to increase carvedilol due to HR. Try to avoid vasodilators due to leg swelling. Hydralazine PRN (7) Hypertension: as above (8) Diabetes: Reduced lantus to 10 units BID due to hypoglycemic episode this morning. Continue ACHS Novolog (9) Hyperlipidemia: (10) History of CVA (cerebrovascular accident): Continue clopidogrel Intolerant to statins (11) Morbid obesity: (12) DVT prophylaxis: Heparin 5000 units BID SQ (13) Acute kidney failure: Creatinine has been slowly increasing. Will repeat creatinine in the afternoon. Levels are now above 2. Will also consult nephrology. (14) Discharge planning issues: PT/OT Subjective 63 yo female reports that she is breathing better. Patient denies any nausea and vomiting. Review of Systems Review of Systems: All systems reviewed & are unremarkable except as noted in HPI & below Physical Exam Physical Exam: GENERAL : No acute distress EYES: No icterus, gaze conjugate NOSE: No evidence of epistaxis MOUTH: No lesions or candidiasis, mucosa moist NECK: Supple LUNGS: Decreased breath sounds at bases HEART: Regular, rate controlled ABDOMEN: Soft, NT, ND, BS Present EXTREMITIES: Swelling of the legs noted with no erythema, pedal pulses intact NEURO: A&OX3 Results & Data Vital Signs (Past 12 Hours) Vital Signs Temp Pulse Pulse Resp BP BP Pulse Ox 01/24/19 19:18 36.9 C 70 18 157/76 H 93 01/24/19 15:24 36.8 C 69 20 168/84 H 94 01/24/19 14:56 69 PG Care Time/CCT Total # of Minutes Spent Total Time Spent with Patient: Total time spent is greater than 50% in coordination of care (as documented) at patient's floor/unit and/or counseling patient: (1) UTI (urinary tract infection) Urinary tract infection type: urethritis Qualified Code(s): N34.2 - Other urethritis (2) Diabetes Diabetes mellitus complication status: without complication Diabetes mellitus technician terminal and repeater insulin use: with technician terminal and repeater use Diabetes mellitus type: type 2 Qualified Code(s): E11.9 - Type 2 diabetes mellitus without complications; Z79.4 - nursing home (current) 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
[2019-01-25] MEDS: AMPICILLIN/SULBACTAM SOD 3,000 MG in 0.9 % SODIUM CHLORIDE 100 ML IV SCH ×4 (05:50→23:24)
[2019-01-25 06:16] LABS: Basophils # (auto) 0.06 K/uL (0-0.2); Eosinophils # (auto) 0.39 K/uL (0-0.5); Eosinophils % (auto) 6.6 %; Hematocrit (blood only) 31.6 % (37-47); Hemoglobin 10.1 g/dL (12.0-16.0); Lymphocytes # (auto) 1.98 K/uL (1.2-3.4); Lymphocytes % (auto) 33.5 %; Mean Corpuscular Hemoglobin 26.5 pg (25-34); Mean Corpuscular Volume 82.9 fL (80-100); Monocytes # (auto) 0.63 K/uL (0.11-0.59); Monocytes % (auto) 10.7 %; Neutrophils # (auto) 2.85 K/uL (1.4-6.5); Neutrophils % (auto) 48.2 %; Platelet Count 216 K/uL (130-400); RDW Coefficient of Variation 14.8 % (11.5-14.5); RDW Standard Deviation 44.8 fL (36.4-46.3); Red Blood Count 3.81 M/uL (4.2-5.4); White Blood Count 5.91 K/uL (4.8-10.8)
[2019-01-25 06:59] LABS: BUN Creatinine Ratio 17.3 (10-20); Creatinine Clr Calc Pharmacy 30.5 ml/min; Est GFR (African American) 24.6; Est GFR (Non-African American) 21.2; Magnesium 2.4 mg/dl (1.8-2.4); Phosphorus 3.9 mg/dl (2.5-4.9); Potassium 3.7 mmol/L (3.5-5.1)
[2019-01-25] MEDS: CLOPIDOGREL BISULFATE 75 MG TAB PO SCH (08:08)
[2019-01-25] MEDS: PANTOprazole 40 MG TAB PO SCH (08:08)
[2019-01-25] MEDS: metOLazone 2.5 MG TABLET PO SCH (08:08)
[2019-01-25] MEDS: POTASSIUM CHLORIDE 20 MEQ TABCR PO SCH ×3 (08:09→21:41)
[2019-01-25] MEDS: AZITHROMYCIN 250 MG TAB PO SCH (08:09)
[2019-01-25] MEDS: carvediloL 25 MG TAB PO SCH ×2 (08:09→21:40)
[2019-01-25] MEDS: DOCUSATE SODIUM/SENNA 50/8.6MG TAB PO SCH (08:09)
[2019-01-25] MEDS: FUROSEMIDE 40 MG in SYRINGE 0 ML IV SCH ×2 (08:10→17:23)
[2019-01-25] MEDS: HEPARIN SOD 5,000 UNIT/0.5 ML VIAL SQ SCH ×2 (08:10→21:42)
[2019-01-25] MEDS: INSULIN GLARGINE SOLOSTAR 100 UNITS/ML 3 ML PEN SC SCH ×2 (08:11→21:42)
[2019-01-25] MEDS: INSULIN ASPART 100 UNITS/ML 3 ML PEN SC SCH ×4 (08:12→21:44)
--- NOTE | 2019-01-25 10:07 | Nephrology Progress Note ---
Date of Service January 25, 2019 Assessment & Plan (1) Diastolic CHF, acute on chronic: Gladys Dunlap is a 63-year-old female with CKD 3 A3 secondary to diabetic nephropathy. Baseline creatinine has been 1.5-1.6. She was admitted to the hospital with progressive shortness of breath and hypertensive urgency with acute on chronic diastolic congestive heart failure. At home she was on Lasix 80 milligram p.o. daily; currently on Lasix 40 milligram twice a day and metolazone 2.5 milligram was added over the weekend. Creatinine is stable at 2.3 milligram/deciliter this morning. Metabolic profile also notable for hypokalemia reflective diuresis. --continue Lasix and metolazone for now, monitor renal function electrolytes closely. Continue low-salt diet and fluid restriction. Aim for net negative 0.5 L/d. --consider switching to oral diuretics from IV today --record accurate intake and output --considering being on high dose of diuretics, check magnesium and phosphate Q 48 hours --avoid potassium-sparing diuretic condition at this time pending stabilization of serum creatinine. --no current need for dialysis. --lisinopril has been held. (2) Hypertensive urgency: (3) SOB (shortness of breath): (4) Hyperparathyroidism: (5) CKD (chronic kidney disease), stage III: (6) Anemia: (7) Hypoalbuminemia: Subjective No acute events overnight. Edema markedly improved. Overall, Gladys Dunlap feels well. Appetite is good. She is breathing comfortably. Review of Systems Review of Systems: All systems reviewed & are unremarkable except as noted in HPI & below Physical Exam Constitutional: well developed; no acute distress Eyes: no conjunctival abnormality and no scleral abnormality ENMT: Mouth: no oral mucosal abnormality and oral mucous membranes not dry Neck: normal visual inspection; + trachea not midline Respiratory: normal respiratory effort Auscultation: lungs clear to auscultation bilaterally and + diminished lung sounds Cardiovascular: Rate/Rhythm: regular rate Heart Sounds: normal S1 and normal S2 Extremities: + edema Musculoskeletal: Extremities: no cyanosis and no clubbing Skin: normal turgor; no lesions Neurologic: Motor/Sensory: no tremor and no asterixis Psychiatric: Orientation: alert and oriented x 3 Results & Data Vital Signs (Past 12 Hours) Vital Signs Temp Pulse Pulse Resp BP BP Pulse Ox 01/25/19 08:44 36.7 C 66 19 183/82 H 92 01/25/19 08:30 61 01/25/19 04:00 36.5 C 68 20 151/85 H 91 01/24/19 23:49 67 01/24/19 23:03 36.8 C 72 16 178/81 H 92 Laboratory Results Laboratory Results - last 24 hr 01/24/19 01/24/19 01/24/19 11:14 16:19 19:04 WBC RBC Hgb Hct MCV MCH MCHC RDW Std Deviation RDW Coeff of Braeden Plt Count MPV Immature Gran % (Auto) Neut % (Auto) Lymph % (Auto) [place] % (Auto) Eos % (Auto) Baso % (Auto) Immature Gran # (Auto) Neut # (Auto) Lymph # (Auto) [place] # (Auto) Eos # (Auto) Baso # (Auto) Sodium Potassium 3.8 D Chloride Carbon Dioxide Anion Gap BUN Creatinine 2.52 H Est Cr Clr Drug Dosing 28.7 Est GFR ( Amer) 22.7 Est GFR (Non-Af Amer) 19.6 BUN/Creatinine Ratio Glucose POC Glucose 176 H 167 H Calcium Phosphorus Magnesium Specimen Hemolysis 01/24/19 01/25/19 01/25/19 20:31 04:28 05:42 WBC 5.91 RBC 3.81 L Hgb 10.1 L Hct 31.6 L MCV 82.9 MCH 26.5 MCHC 32.0 RDW Std Deviation 44.8 RDW Coeff of Braeden 14.8 H Plt Count 216 MPV 10.0 Immature Gran % (Auto) 0.0 Neut % (Auto) 48.2 Lymph % (Auto) 33.5 [place] % (Auto) 10.7 Eos % (Auto) 6.6 Baso % (Auto) 1.0 Immature Gran # (Auto) 0.00 Neut # (Auto) 2.85 Lymph # (Auto) 1.98 [place] # (Auto) 0.63 H Eos # (Auto) 0.39 Baso # (Auto) 0.06 Sodium Potassium Chloride Carbon Dioxide Anion Gap BUN Creatinine Est Cr Clr Drug Dosing Est GFR ( Amer) Est GFR (Non-Af Amer) BUN/Creatinine Ratio Glucose POC Glucose 138 H 149 H Calcium Phosphorus Magnesium Specimen Hemolysis 01/25/19 01/25/19 05:42 08:06 WBC RBC Hgb Hct MCV MCH MCHC RDW Std Deviation RDW Coeff of Braeden Plt Count MPV Immature Gran % (Auto) Neut % (Auto) Lymph % (Auto) [place] % (Auto) Eos % (Auto) Baso % (Auto) Immature Gran # (Auto) Neut # (Auto) Lymph # (Auto) [place] # (Auto) Eos # (Auto) Baso # (Auto) Sodium 141 Potassium 3.7 Chloride 106 Carbon Dioxide 30 Anion Gap 5.0 BUN 41 H Creatinine 2.36 H Est Cr Clr Drug Dosing 30.5 Est GFR ( Amer) 24.6 Est GFR (Non-Af Amer) 21.2 BUN/Creatinine Ratio 17.3 Glucose 141 H POC Glucose 153 H Calcium 10.0 Phosphorus 3.9 Magnesium 2.4 Specimen Hemolysis PG Care Time/CCT Total # of Minutes Spent Total Time Spent with Patient: Total time spent is greater than 50% in coordination of care (as documented) at patient's floor/unit and/or counseling patient: (1) Anemia Anemia type: unspecified type Qualified Code(s): D64.9 - Anemia, unspecified
--- NOTE | 2019-01-25 13:43 | Pharmacy Report ---
Pharmacy Glycemic Short Note 2 - Date of Service January 25, 2019 - Glycemic Short BSG Results (Last 24 hours): 01/24/19 01/24/19 01/25/19 16:19 20:31 04:28 Glucose POC Glucose 167 H 138 H 149 H 01/25/19 01/25/19 01/25/19 05:42 08:06 11:44 Glucose 141 H POC Glucose 153 H 157 H OUTPATIENT ANTIDIABETIC REGIMEN: * Lantus 20 units SQ BID * Novolog SSI * HbA1c: 8.2% (01/21/19) ASSESSMENT: 01/25 * Ms. Reyna has had good glycemic control over the last 24 hours ranging from 130-176. * Fasting this morning is increased slightly from yesterday and has been trending up- lantus doses are reduced from home ~50%, will start gradual increase with lantus scale (total 20% increase if using highest dosing) * Continue current correction/carb ratio as prandial BSGs are close to or at goal range. 01/23 * Ms Reyna is a 63yo diabetic female admitted with CHF exacerbation. * BSGs were low overnight 2 nights ago, but have been very well-controlled since Lantus dose was reduced. * Novolog parameters adjusted slightly to provide additional prandial coverage. PLAN FOR INPATIENT GLYCEMIC CONTROL: * Hold outpatient oral diabetes medications * Basal insulin * Lantus 10/12 units SQ BID * Bolus insulin * NovoLog per scale ACHS or Q6hrs while NPO * Goal Range: Low 110 mg/dL - High 140 mg/dL * Correction Factor: 20 mg/dL/unit * Nutritional / Prandial insulin per carb ratio of 1 unit per 7 grams CHO consumed
--- NOTE | 2019-01-25 16:41 | Cardiology Progress Note ---
Date of Service January 25, 2019 Assessment & Plan (1) Diastolic CHF: The patient remains on Lasix 80 mg IV twice daily and 2.5 mg of metolazone. Lisinopril remains on hold. Resume daily weights and sliding-scale diuretics as an outpatient. (2) Non-ischemic cardiomyopathy: Nonobstructive coronary disease at cardiac cath August 2009. Echocardiogram performed in June noted normal left ventricular systolic function, mild LVH, and moderate mitral regurgitation. (3) CAD (coronary artery disease): Nonobstructive coronary artery disease by cardiac cath in August 2009. (4) Hypertension: Adequate control on current medical regimen. Subjective The patient is resting comfortably in bed without complaints of chest pain or dyspnea. Physical Exam Physical Exam: In general this is a well-developed well-nourished white female in no acute distress. HEENT exam is negative. Neck is supple with full carotid upstrokes. There are no carotid bruits. Jugular venous pressure is 8 cm of water at 90. There is no thyromegaly. Cardiovascular exam reveals a regular rhythm with a normal S1 and S2. No S3, S4, or murmurs are noted. Lungs are clear without rales, rhonchi, or wheezes. Abdomen is soft and nontender without bruits. Extremities reveal intact radial artery and posterior tibial pulses bilaterally. There is trace to 1+ pretibial edema. Results & Data Vital Signs (Past 12 Hours) Vital Signs Temp Pulse Pulse Resp BP Pulse Ox 01/25/19 16:07 36.7 C 65 18 165/82 H 94 01/25/19 15:06 65 01/25/19 08:44 36.7 C 66 19 183/82 H 92 01/25/19 08:30 61 PG Care Time/CCT Total # of Minutes Spent Total Time Spent with Patient: Total time spent is greater than 50% in coordination of care (as documented) at patient's floor/unit and/or counseling patient: (1) Hypertension Hypertension type: essential hypertension Qualified Code(s): I10 - Essential (primary) hypertension
[2019-01-25] MEDS: HydrALAZINE HCL 20 MG/ML VIAL IV PRN (23:10)
--- NOTE | 2019-01-25 23:32 | Hospitalist Progress Note ---
Date of Service January 25, 2019 Assessment & Plan (1) Pneumonia: Given initial improvement with amoxicillin and one sided consolidation on CXR suspect pneumonia is main cause of her current illness. Procalcitonin WNL but likely pneumonia has been partially treated with amoxicillin she has been taking since Wednesday. In addition this is similar to her clinical picture on admission in June-July when she became critically unwell requiring intubation therefore would be prudent to treat early. Was on unasyn, switched to augmentin, will continue for 7 days and azithromycin 5 days). (2) UTI (urinary tract infection): Treated by patient with amoxicillin with resolution of symptoms. UA with 3+ protein, 1+ glucose, 2+ blood (persistent from prior UAs) No nephrology/urology follow up despite persistent microscopic hematuria - will need to set up on discharge. (3) CKD (chronic kidney disease), stage III: Cr stable since ATN from sepsis in July this year. Will consult nephrology given patient's recent history with ATN and sepsis in July on back ground of diabetic nephropathy and A4 proteinuria to avoid going into acute renal failure with difficult fluid management and blood pressure control with this patient. Continue IV lasix BID held low dose metolazone. will switch to PO lasix in AM. Strict I&Os (patient reports multiple missed urine outputs as not provided with bowl to measure) Daily weights Appreciate nephrology recommendations (4) Diastolic CHF, acute on chronic: Suspect primarily more of a renal rather than cardiac fluid balance issue given hypoalbuminemia. However suspect moderate mitral regurgitation also contributing to pulmonary edema. Appreciate cardiology recommendations Patient currently on diuretics. will monitor. (5) Mitral regurgitation: as above (6) Hypertensive urgency: IV lasix. Recently discontinued amlodipine due to leg swelling. Held lisnopril due to renal failure. on hydralazine. Appears better controlled today. Unable to increase carvedilol due to HR. Try to avoid vasodilators due to leg swelling. Hydralazine PRN (7) Hypertension: as above (8) Diabetes: Reduced lantus to 10 units BID due to hypoglycemic episode this morning. Continue ACHS Novolog (9) Hyperlipidemia: (10) History of CVA (cerebrovascular accident): Continue clopidogrel Intolerant to statins (11) Morbid obesity: (12) DVT prophylaxis: Heparin 5000 units BID SQ (13) Discharge planning issues: PT/OT (14) Acute kidney failure: Creatinine has been gradually improving since peaking at 2.5 =. Subjective 63 YO FEMALE reports feeling better today. She states she is breathing better and ambulating more. Her main concern today is her blood pressure. She reports that her diastolic was elevated and believes it was more than 100. She states she does not feel comfortable until her Blood pressure improves to be discharged. Review of Systems Review of Systems: All systems reviewed & are unremarkable except as noted in HPI & below Physical Exam Physical Exam: GENERAL : No acute distress EYES: No icterus, gaze conjugate NOSE: No evidence of epistaxis MOUTH: No lesions or candidiasis, mucosa moist NECK: Supple LUNGS: Decreased breath sounds at bases HEART: Regular, rate controlled ABDOMEN: Soft, NT, ND, BS Present EXTREMITIES: Swelling of the legs noted with no erythema, pedal pulses intact NEURO: A&OX3 Results & Data Vital Signs (Past 12 Hours) Vital Signs Temp Pulse Pulse Resp BP BP Pulse Ox 01/25/19 22:58 183/89 H 01/25/19 22:51 36.6 C 67 18 187/66 H 95 01/25/19 21:30 69 180/98 H 01/25/19 19:06 36.6 C 68 19 170/81 H 93 01/25/19 16:07 36.7 C 65 18 165/82 H 94 01/25/19 15:06 65 PG Care Time/CCT Total # of Minutes Spent Total Time Spent with Patient: Total time spent is greater than 50% in coordination of care (as documented) at patient's floor/unit and/or counseling patient: (1) UTI (urinary tract infection) Urinary tract infection type: urethritis Qualified Code(s): N34.2 - Other urethritis (2) Diabetes Diabetes mellitus complication status: without complication Diabetes mellitus predatory animal exterminator insulin use: with chcf use Diabetes mellitus type: type 2 Qualified Code(s): E11.9 - Type 2 diabetes mellitus without complications; Z79.4 - half-way (current) 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
[2019-01-26] MEDS: ZOLPIDEM TARTRATE 5 MG TAB PO PRN (03:05)
[2019-01-26] MEDS: AMPICILLIN/SULBACTAM SOD 3,000 MG in 0.9 % SODIUM CHLORIDE 100 ML IV SCH ×2 (06:15→12:11)
[2019-01-26 06:54] LABS: Albumin Level 2.1 gm/dl (3.4-5.0); BUN Creatinine Ratio 18.3 (10-20); Calcium 9.5 mg/dl (8.5-10.1); Creatinine Clr Calc Pharmacy 32.5 ml/min; Est GFR (African American) 26.9; Est GFR (Non-African American) 23.2; Potassium 3.7 mmol/L (3.5-5.1)
[2019-01-26 06:55] LABS: Phosphorus 3.8 mg/dl (2.5-4.9)
[2019-01-26] MEDS: carvediloL 25 MG TAB PO SCH ×2 (07:43→20:58)
[2019-01-26] MEDS: HEPARIN SOD 5,000 UNIT/0.5 ML VIAL SQ SCH ×2 (07:43→21:00)
[2019-01-26] MEDS: DOCUSATE SODIUM/SENNA 50/8.6MG TAB PO SCH (07:43)
[2019-01-26] MEDS: FUROSEMIDE 40 MG in SYRINGE 0 ML IV SCH ×2 (07:44→16:38)
[2019-01-26] MEDS: PANTOprazole 40 MG TAB PO SCH (07:44)
[2019-01-26] MEDS: metOLazone 2.5 MG TABLET PO SCH (07:44)
[2019-01-26] MEDS: POTASSIUM CHLORIDE 20 MEQ TABCR PO SCH ×3 (07:44→20:58)
[2019-01-26] MEDS: CLOPIDOGREL BISULFATE 75 MG TAB PO SCH (07:44)
[2019-01-26] MEDS: INSULIN ASPART 100 UNITS/ML 3 ML PEN SC SCH ×4 (08:12→21:02)
[2019-01-26] MEDS: INSULIN GLARGINE SOLOSTAR 100 UNITS/ML 3 ML PEN SC SCH ×2 (08:13→21:02)
--- NOTE | 2019-01-26 09:18 | Cardiology Progress Note ---
Date of Service January 26, 2019 Assessment & Plan (1) Diastolic CHF: Could convert to oral diuretics at this time. Resume daily weights and sliding-scale diuretics as an outpatient. (2) Non-ischemic cardiomyopathy: Nonobstructive coronary disease, August 2009. Echocardiogram performed in June 2018 noted normal left ventricular systolic function, mild LVH, and moderate mitral regurgitation. (3) CAD (coronary artery disease): Nonobstructive disease by cardiac cath in August 2009. (4) Hypertension: Tolerating the addition of hydralazine. Subjective The patient is resting comfortably in the bedside chair without complaints of chest pain dyspnea. Physical Exam Physical Exam: In general this is a well-developed well-nourished white female in no acute distress. HEENT exam is negative. Neck is supple with full carotid upstrokes. There are no carotid bruits. Jugular venous pressure is 8 cm of water at 90. There is no thyromegaly. Cardiovascular exam reveals a regular rhythm with a normal S1 and S2. No S3, S4, or murmurs are noted. Lungs are clear without rales, rhonchi, or wheezes. Abdomen is soft and nontender without bruits. Extremities reveal intact radial artery and posterior tibial pulses bilaterally. There is trace to 1+ pretibial edema. Results & Data Vital Signs (Past 12 Hours) Vital Signs Temp Pulse Pulse Resp BP BP Pulse Ox 01/26/19 08:14 64 01/26/19 07:49 36.7 C 69 20 144/71 H 92 01/26/19 04:39 36.6 C 69 18 163/81 H 92 01/26/19 00:50 65 01/26/19 00:06 149/73 H 01/25/19 22:58 183/89 H 01/25/19 22:51 36.6 C 67 18 187/66 H 95 01/25/19 21:30 69 180/98 H PG Care Time/CCT Total # of Minutes Spent Total Time Spent with Patient: Total time spent is greater than 50% in coordination of care (as documented) at patient's floor/unit and/or counseling patient: (1) Hypertension Hypertension type: essential hypertension Qualified Code(s): I10 - Essential (primary) hypertension
--- NOTE | 2019-01-26 10:28 | Nephrology Progress Note ---
Date of Service January 26, 2019 Assessment & Plan (1) Diastolic CHF, acute on chronic: Gladys Dunlap is a 63-year-old female with CKD 3 A3 secondary to diabetic nephropathy. Baseline creatinine has been 1.5-1.6. She was admitted to the hospital with progressive shortness of breath and hypertensive urgency with acute on chronic diastolic congestive heart failure. At home she was on Lasix 80 milligram p.o. daily; currently on Lasix 40 milligram twice a day and metolazone 2.5 milligram. Creatinine is stable at 2.2 milligram/deciliter this morning. Metabolic profile otherwise acceptable. --suggest switching to oral diuretics today. Consider having the patient resume furosemide 80 milligrams p.o. twice daily. May hold metolazone to be used as needed --record accurate intake and output --avoid potassium-sparing diuretic condition at this time pending stabilization of serum creatinine. --no current need for dialysis. --continue to hold lisinopril at this time --repeat metabolic profile tomorrow a.m. --if patient does well over the next 24 hours on oral diuretics, she would cer tainly be considered stable for discharge from a nephrology standpoint (2) Hypertensive urgency: (3) SOB (shortness of breath): (4) Hyperparathyroidism: (5) CKD (chronic kidney disease), stage III: (6) Anemia: (7) Hypoalbuminemia: Subjective No acute events overnight. Gladys Dunalp was resting comfortably in the bedside chair this morning. She reports some difficulty sleeping overnight. However, she otherwise feels well. Edema continues to improve. She is breathing comfortably. She denies any lightheadedness or dizziness. She denies any chest pain or palpitations. She has no urinary complaints. Review of Systems Review of Systems: All systems reviewed & are unremarkable except as noted in HPI & below Physical Exam Constitutional: well developed; no acute distress Eyes: no conjunctival abnormality and no scleral abnormality ENMT: Mouth: no oral mucosal abnormality and oral mucous membranes not dry Neck: normal visual inspection; + trachea not midline Respiratory: normal respiratory effort Auscultation: lungs clear to auscultation bilaterally and + diminished lung sounds Cardiovascular: Rate/Rhythm: regular rate Heart Sounds: normal S1 and normal S2 Extremities: + edema Musculoskeletal: Extremities: no cyanosis and no clubbing Skin: normal turgor; no lesions Neurologic: Motor/Sensory: no tremor and no asterixis Psychiatric: Orientation: alert and oriented x 3 Results & Data Vital Signs (Past 12 Hours) Vital Signs Temp Pulse Pulse Resp BP Pulse Ox 01/26/19 08:14 64 01/26/19 07:49 36.7 C 69 20 144/71 H 92 01/26/19 04:39 36.6 C 69 18 163/81 H 92 01/26/19 00:50 65 01/26/19 00:06 149/73 H 01/25/19 22:58 183/89 H 01/25/19 22:51 36.6 C 67 18 187/66 H 95 Laboratory Results Laboratory Results - last 24 hr 01/25/19 01/25/19 01/25/19 11:44 16:55 20:20 Sodium Potassium Chloride Carbon Dioxide Anion Gap BUN Creatinine Est Cr Clr Drug Dosing Est GFR ( Amer) Est GFR (Non-Af Amer) BUN/Creatinine Ratio Glucose POC Glucose 157 H 125 H 144 H Calcium Phosphorus Albumin 01/26/19 01/26/19 05:47 07:41 Sodium 140 Potassium 3.7 Chloride 105 Carbon Dioxide 29 Anion Gap 6.0 BUN 40 H Creatinine 2.19 H Est Cr Clr Drug Dosing 32.5 Est GFR ( Amer) 26.9 Est GFR (Non-Af Amer) 23.2 BUN/Creatinine Ratio 18.3 Glucose 112 H POC Glucose 124 H Calcium 9.5 Phosphorus 3.8 Albumin 2.1 L PG Care Time/CCT Total # of Minutes Spent Total Time Spent with Patient: Total time spent is greater than 50% in coordination of care (as documented) at patient's floor/unit and/or counseling patient: (1) Anemia Anemia type: unspecified type Qualified Code(s): D64.9 - Anemia, unspecified
--- NOTE | 2019-01-26 14:12 | XRay Report ---
XR chest 1V portable CLINICAL HISTORY: CHF dyspnea COMPARISON STUDY: 01/20/2019 FINDINGS: Improved aeration left base. Diminished prominence of pulmonary vasculature. Slight decreas e in cardiac size. IMPRESSION: Improving congestive failure The above report was generated using voice recognition software. It may contain grammatical, syntax or spelling errors. Electronically signed by: Colton Oseguera M.D. 01/26/2019 2:11 PM
--- NOTE | 2019-01-26 14:44 | Heart Failure Progress Note ---
Date of Service January 26, 2019 Assessment & Plan (1) Diastolic CHF: (2) Non-ischemic cardiomyopathy: (3) CAD (coronary artery disease): Patient appears to be improving from a volume standpoint. Her weight is down significantly despite positive fluid balance in the record. Her blood press ure is more controlled today. Both Nephrology and Cardiology have recommended converting her to oral diuretics today, recommended Lasix 80 mg BID. Continue daily standing weights. Strict I&Os. Fluid restriction. Heart healthy diet. At home would recommend documenting consistent daily standing weights. She was instructed to notify the heart failure program of weight gain of 2+ lb overnight or 5+ lb in 1 week. She should continue a low-sodium diet, less than 2000 mg daily. She should follow a fluid restriction, less than a 1500 mL daily. Recommend close heart failure follow up at discharge. Follow up has been arranged for next week. CHF Follow up 02/01/19 at 2:00PM (4) Hypertension: Subjective Ms. Reyna is a 63-year-old female with a past medical history of chronic diastolic heart failure, hypertension, history of cardiomyopathy, coronary artery disease, diabetes mellitus, and chronic kidney disease. 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 Patient presented on 01/20/2019 with worsening shortness of breath with exertion, intermittent chest pain, and persistent hypertension. Blood pressure on arrival was 245/102. Chest x-ray was consistent withMild congestive heart failure and trace pleural effusions. She had left lower lung airspace opacities, atelectasis versus infectious/[place] [address]. She was treated with IV Lasix, IV hydralazine, and DuoNeb. She noted relief in her symptoms. She is feeling significantly better at this point in her hospital stay. Her shortness of breath has improved. She has been ambulating in the hallways without difficulty. She denies any orthopnea or PND. She continues to have lower extremity edema. BP has improved to 144/71. Her weight is down signif icantly from 246 lb on admission to 235 lb. She reports her typical dry weight is 228 lb at home. Her I&O's are positive 4 L so I question if it's being collected accurately. The patient reports significant urine output. She has been receiving IV Lasix 40 mg BID. Physical Exam Physical Exam: Constitutional: Alert, oriented, in no acute distress HEENT: Head is atraumatic and normocephalic. EOMs intact. Sclera anicteric. Face is symmetric. No perioral cyanosis. Mucous membranes moist. Neck: Supple, no JVD Pulmonary: Normal respiratory effort, clear to auscultation bilaterally Cardiac: Regular rate and rhythm. Normal S1 and S2, no gallops, no rubs, no murmurs Extremities: 2+ radial pulses bilaterally. 2+ posterior tibialis pulses bilaterally. 2+ pitting edema extending ot the knees. No cyanosis or clubbing. Abdomen: Normal bowel sounds, soft, non-tender, no abdominal mass palpated Skin: Normal skin color, turgor, and pigmentation, no rash, no skin lesions Neurological: Patient is awake, alert, and oriented. Pleasant and cooperative. Answers questions appropriately. Speech is clear. Normal movement in all 4 extremities Results & Data Vital Signs (Past 12 Hours) Vital Signs Temp Pulse Pulse Resp BP Pulse Ox 01/26/19 08:14 64 01/26/19 07:49 98.1 F 69 20 144/71 H 92 01/26/19 04:39 97.9 F 69 18 163/81 H 92 PG Care Time/CCT Total # of Minutes Spent Total Time Spent with Patient: Total time spent is greater than 50% in coordination of care (as documented) at patient's floor/unit and/or counseling patient: (1) Hypertension Hypertension type: essential hypertension Qualified Code(s): I10 - Essential (primary) hypertension
[2019-01-26] MEDS: AMOXICILLIN/CLAVULANATE 875 MG TAB PO SCH (16:34)
[2019-01-26] MEDS: HydrALAZINE TAB 50 MG TAB PO SCH (20:57)
--- NOTE | 2019-01-26 23:10 | Hospitalist Progress Note ---
Date of Service January 26, 2019 Assessment & Plan (1) Mitral regurgitation: as above (2) Pneumonia: Given initial improvement with amoxicillin and one sided consolidation on CXR suspect pneumonia is main cause of her current illness. Procalcitonin WNL but likely pneumonia has been partially treated with amoxicillin she has been taking since Wednesday. In addition this is similar to her clinical picture on admission in June-July when she became critically unwell requiring intubation therefore would be prudent to treat early. Switch to augmentin (will continue for 7 days, ) Completed azithromycin 5 days. (3) UTI (urinary tract infection): Treated by patient with amoxicillin with resolution of symptoms. UA with 3+ protein, 1+ glucose, 2+ blood (persistent from prior UAs) No nephrology/urology follow up despite persistent microscopic hematuria - will need to set up on discharge. (4) CKD (chronic kidney disease), stage III: Cr stable since ATN from sepsis in July this year. Will consult nephrology given patient's recent history with ATN and sepsis in July on back ground of diabetic nephropathy and A4 proteinuria to avoid going into acute renal failure with difficult fluid management and blood pressure control with this patient. Continue IV lasix BID and low dose metolazone. Held morning dose due to increase in creatinine, will resume evening dose of lasix (01/23) Strict I&Os (patient reports multiple missed urine outputs as not provided with bowl to measure) Daily weights Appreciate nephrology recommendations (5) Diastolic CHF, acute on chronic: This appears to be the primary issue for her hospital stay. Will continue patient on lasix. Creatinine did increase but has remained relatively stable. Appreciate cardiology recommendations Patient will remain on this. will monitor. (6) Hypertensive urgency: Will continue with lisinopril, IV lasix and add metolazone. Recently discontinued amlodipine due to leg swelling. Appears to be relatively controlled. Unable to increase carvedilol due to HR. Try to avoid vasodilators due to leg swelling. Hydralazine PRN (7) Hypertension: as above (8) Diabetes: Reduced lantus to 10 units BID due to hypoglycemic episode this morning. Continue ACHS Novolog (9) Hyperlipidemia: (10) History of CVA (cerebrovascular accident): Continue clopidogrel Intolerant to statins (11) Morbid obesity: recommend life style modifications (12) DVT prophylaxis: Heparin 5000 units BID SQ (13) Acute kidney failure: Creatinine has been fluctuating between 2.1 and 2.5 will continue to monitor. (14) Discharge planning issues: PT/OT Subjective 63 yo female reports feeling well. She denies any new complaints. She feels she has been urinating a large amount here. She is unsure if the I's and O's are accurate. She is still worried about her Blood pressure, but sees that it is better controlled. She denies any SOB at this time Review of Systems Review of Systems: All systems reviewed & are unremarkable except as noted in HPI & below Physical Exam Physical Exam: GENERAL : No acute distress EYES: No icterus, gaze conjugate NOSE: No evidence of epistaxis MOUTH: No lesions or candidiasis, mucosa moist NECK: Supple LUNGS: Decreased breath sounds at bases HEART: Regular, rate controlled ABDOMEN: Soft, NT, ND, BS Present EXTREMITIES: Swelling of the legs noted with no erythema, pedal pulses intact NEURO: A&OX3 Results & Data Vital Signs (Past 12 Hours) Vital Signs Temp Pulse Pulse Resp BP Pulse Ox 01/26/19 19:00 36.7 C 66 20 169/84 H 96 01/26/19 16:20 69 01/26/19 16:00 36.7 C 72 24 175/87 H 94 01/26/19 12:00 36.4 C L 68 24 141/79 H 92 PG Care Time/CCT Total # of Minutes Spent Total Time Spent with Patient: Total time spent is greater than 50% in coordination of care (as documented) at patient's floor/unit and/or counseling patient: (1) UTI (urinary tract infection) Urinary tract infection type: urethritis Qualified Code(s): N34.2 - Other urethritis (2) Diabetes Diabetes mellitus complication status: without complication Diabetes mellitus predatory animal exterminator insulin use: with predatory animal exterminator use Diabetes mellitus type: type 2 Qualified Code(s): E11.9 - Type 2 diabetes mellitus without complications; 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
[2019-01-27] MEDS: ZOLPIDEM TARTRATE 5 MG TAB PO PRN (00:14)
[2019-01-27 05:50] LABS: Hematocrit (blood only) 31.7 % (37-47); Hemoglobin 9.8 g/dL (12.0-16.0); Mean Corpuscular Hemoglobin 26.1 pg (25-34); Mean Corpuscular Hgb Conc 30.9 g/dL (32-36); Mean Corpuscular Volume 84.5 fL (80-100); Mean Platelet Volume 10.5 fL (7.4-10.4); Platelet Count 200 K/uL (130-400); RDW Coefficient of Variation 14.6 % (11.5-14.5); RDW Standard Deviation 45.3 fL (36.4-46.3); Red Blood Count 3.75 M/uL (4.2-5.4)
[2019-01-27 06:20] LABS: Albumin Level 2.1 gm/dl (3.4-5.0); BUN Creatinine Ratio 17.6 (10-20); Calcium 9.6 mg/dl (8.5-10.1); Creatinine Clr Calc Pharmacy 29.1 ml/min; Est GFR (African American) 23.5; Est GFR (Non-African American) 20.3; Magnesium 2.2 mg/dl (1.8-2.4); Potassium 3.9 mmol/L (3.5-5.1)
[2019-01-27 06:21] LABS: Phosphorus 4.3 mg/dl (2.5-4.9)
[2019-01-27] MEDS: CLOPIDOGREL BISULFATE 75 MG TAB PO SCH (08:06)
[2019-01-27] MEDS: DOCUSATE SODIUM/SENNA 50/8.6MG TAB PO SCH (08:06)
[2019-01-27] MEDS: carvediloL 25 MG TAB PO SCH (08:06)
[2019-01-27] MEDS: PANTOprazole 40 MG TAB PO SCH (08:06)
[2019-01-27] MEDS: AMOXICILLIN/CLAVULANATE 875 MG TAB PO SCH (08:06)
[2019-01-27] MEDS: HydrALAZINE TAB 50 MG TAB PO SCH (08:07)
[2019-01-27] MEDS: POTASSIUM CHLORIDE 20 MEQ TABCR PO SCH ×2 (08:07→12:25)
[2019-01-27] MEDS: INSULIN GLARGINE SOLOSTAR 100 UNITS/ML 3 ML PEN SC SCH (08:12)
[2019-01-27] MEDS: HEPARIN SOD 5,000 UNIT/0.5 ML VIAL SQ SCH (08:13)
[2019-01-27] MEDS: INSULIN ASPART 100 UNITS/ML 3 ML PEN SC SCH ×2 (08:14→12:24)
[2019-01-27] MEDS ORDERED: FUROSEMIDE 80 MG TAB PO SCH (09:00)
--- NOTE | 2019-01-27 09:40 | Nephrology Progress Note ---
Date of Service January 27, 2019 Assessment & Plan (1) Diastolic CHF, acute on chronic: Gladys Dunlap is a 63-year-old female with CKD 3 A3 secondary to diabetic nephropathy. Baseline creatinine has been 1.5-1.6. She was admitted to the hospital with progressive shortness of breath and hypertensive urgency with acute on chronic diastolic congestive heart failure. At home she was on Lasix 80 milligram p.o. daily; has been diuresed on Lasix 40 milligram twice a day and metolazone 2.5 milligram. Creatinine is stable at 2.45 milligram/deciliter this morning. Metabolic profile otherwise acceptable. Down 3 kg overnight to prior EDW. --furosemide switched ton po this AM --continue furosemide 80 mg daily po with additional as needed --chf follow up scheduled --avoid potassium-sparing diuretic condition at this time --f/u with nephro and chf clinic arranged for next week --continue to hold lisinopril at this time --repeat metabolic profile early next week --stable for discharge from a nephrology standpoint (2) Hypertensive urgency: (3) SOB (shortness of breath): (4) Hyperparathyroidism: (5) CKD (chronic kidney disease), stage III: (6) Anemia: (7) Hypoalbuminemia: Subjective No acute events overnight. Gladys Dunlap was resting comfortably in the bedside chair this morning. She feels well. Edema continues to improve. She is breathing comfortably. She denies any lightheadedness or dizziness. She denies any chest pain or palpitations. She has no urinary complaints. Review of Systems Review of Systems: All systems reviewed & are unremarkable except as noted in HPI & below Physical Exam Constitutional: well developed; no acute distress Eyes: no conjunctival abnormality and no scleral abnormality ENMT: Mouth: no oral mucosal abnormality and oral mucous membranes not dry Neck: normal visual inspection and trachea midline Respiratory: normal respiratory effort Auscultation: lungs clear to auscultation bilaterally and + diminished lung sounds Cardiovascular: Rate/Rhythm: regular rate Heart Sounds: normal S1 and normal S2 Extremities: + edema Musculoskeletal: Extremities: no cyanosis and no clubbing Skin: normal turgor; no lesions Neurologic: Motor/Sensory: no tremor and no asterixis Psychiatric: Orientation: alert and oriented x 3 Results & Data Vital Signs (Past 12 Hours) Vital Signs Temp Pulse Pulse Resp BP Pulse Ox 01/27/19 08:16 36.9 C 65 20 139/81 92 01/27/19 04:00 36.6 C 68 20 169/74 H 94 01/27/19 00:57 79 01/26/19 23:33 36.6 C 81 20 125/74 92 Laboratory Results Laboratory Results - last 24 hr 01/26/19 01/26/19 01/26/19 11:14 16:11 21:01 WBC RBC Hgb Hct MCV MCH MCHC RDW Std Deviation RDW Coeff of Braeden Plt Count MPV Sodium Potassium Chloride Carbon Dioxide Anion Gap BUN Creatinine Est Cr Clr Drug Dosing Est GFR ( Amer) Est GFR (Non-Af Amer) BUN/Creatinine Ratio Glucose POC Glucose 176 H 196 H 127 H Calcium Phosphorus Magnesium Albumin 01/27/19 01/27/19 01/27/19 05:30 05:30 07:52 WBC 6.90 RBC 3.75 L Hgb 9.8 L Hct 31.7 L MCV 84.5 MCH 26.1 MCHC 30.9 L RDW Std Deviation 45.3 RDW Coeff of Braeden 14.6 H Plt Count 200 MPV 10.5 H Sodium 140 Potassium 3.9 Chloride 106 Carbon Dioxide 29 Anion Gap 5.0 BUN 43 H Creatinine 2.45 H Est Cr Clr Drug Dosing 29.1 Est GFR ( Amer) 23.5 Est GFR (Non-Af Amer) 20.3 BUN/Creatinine Ratio 17.6 Glucose 144 H POC Glucose 150 H Calcium 9.6 Phosphorus 4.3 Magnesium 2.2 Albumin 2.1 L PG Care Time/CCT Total # of Minutes Spent Total Time Spent with Patient: Total time spent is greater than 50% in coordination of care (as documented) at patient's floor/unit and/or counseling patient: (1) Anemia Anemia type: unspecified type Qualified Code(s): D64.9 - Anemia, unspecified
[2019-01-27 11:38] VITALS: PULSE 63; TEMP 97.5; O2SAT 90
[2019-01-27 12:18] VITALS: BP 139/81
--- NOTE | 2019-01-27 14:32 | Pharmacy Report ---
Pharmacy Glycemic Short Note 2 - Date of Service January 27, 2019 - Glycemic Short BSG Results (Last 24 hours): 01/26/19 01/26/19 01/27/19 16:11 21:01 05:30 Glucose 144 H POC Glucose 196 H 127 H 01/27/19 01/27/19 07:52 11:54 Glucose POC Glucose 150 H 164 H OUTPATIENT ANTIDIABETIC REGIMEN: * Lantus 20 units SQ BID * Novolog SSI * HbA1c: 8.2% (01/21/19) ASSESSMENT: 01/27 * Ms. Reyna has has goo glycemic control with current carb ratio and correction factor * Will continue to titrate up lantus dose as fasting trending up- currently dosed below home dose 01/25 * Ms. Reyna has had good glycemic control over the last 24 hours ranging from 130-176. * Fasting this morning is increased slightly from yesterday and has been trending up- lantus doses are reduced from home ~50%, will start gradual increase with lantus scale (total 20% increase if using highest dosing) * Continue current correction/carb ratio as prandial BSGs are close to or at goal range. 01/23 * Ms Reyna is a 63yo diabetic female admitted with CHF exacerbation. * BSGs were low overnight 2 nights ago, but have been very well-controlled since Lantus dose was reduced. * Novolog parameters adjusted slightly to provide additional prandial coverage. PLAN FOR INPATIENT GLYCEMIC CONTROL: * Hold outpatient oral diabetes medications * Basal insulin * Lantus 12/14 units SQ BID * Bolus insulin * NovoLog per scale ACHS or Q6hrs while NPO * Goal Range: Low 110 mg/dL - High 140 mg/dL * Correction Factor: 20 mg/dL/unit * Nutritional / Prandial insulin per carb ratio of 1 unit per 7 grams CHO consumed DISCHARGE RECOMMENDATION Patient's A1c 8.2%, goal <8%. Patient can likely resume outpatient dosing, follow up with outpatient provider.
[2019-01-27] MEDS ORDERED: AMOXICILLIN/CLAVULANATE 500 MG TAB PO SCH (17:00)
[2019-01-27] MEDS ORDERED: INSULIN GLARGINE SOLOSTAR 100 UNITS/ML 3 ML PEN SC SCH (21:00)
--- NOTE | 2019-02-01 14:45 | Discharge Summary ---
Date of Service January 27, 2019 Admission HPI Per Admitting Provider The patient is 62-year-old female with history of diastolic congestive heart failure and cardiomyopathy. She presented to the emergency room with the complaints of increasing shortness of breath for last 10 days. She also has swelling of the legs. She has occasional cough and nonspecific chest pain. Her symptoms have been progressive for last 10 days. She was started on amoxicillin by her family physician for cough and possible URI. The further work-up done in the ER shows that patient has acute on chronic congestive heart failure. She also has hypertensive urgency. Her systolic blood pressure is 230 in the ER. She will be admitted for further evaluation and management. Principal Diagnosis acute diastolic CHF. Discharge Exam GENERAL : No acute distress EYES: No icterus, gaze conjugate NOSE: No evidence of epistaxis MOUTH: No lesions or candidiasis, mucosa moist NECK: Supple LUNGS: Decreased breath sounds at bases HEART: Regular, rate controlled ABDOMEN: Soft, NT, ND, BS Present EXTREMITIES: decreased swelling of the legs noted with no erythema, pedal pulses intact NEURO: A&OX3 Discharge Data Allergies Allergy/AdvReac Type Severity Reaction Status Date / Time dulaglutide [From Trulicity] Allergy Intermediate Hives Verified 01/20/19 14:43 insulin lispro Allergy Visual Unverified 01/20/19 14:43 [From Humalog U-100 Insulin] Disturbance erythromycin base AdvReac Intermediate Vomiting Verified 01/20/19 14:43 atorvastatin AdvReac Joint Pain Unverified 01/20/19 14:43 Consultations 01/20/19 16:57 ED Decision to Admit Stat 01/20/19 19:25 Consult Cardiology Routine 01/22/19 01:40 Consult Nephrology Routine 01/22/19 12:23 [facility] Referral Routine Hospital Course (1) Diastolic CHF, acute on chronic: This appears to be the primary issue for her hospital stay. Will continue patient on lasix. Patient was trated with IV lasix 40 mg BIF Creatinine did increase but has remained relatively stable. Appreciate cardiology recommendations Will discharge on 80 mg PO daily will closely monitor creatinine as an outpatient. Patient also has followup with CHF clinic. (2) Mitral regurgitation: as above (3) Pneumonia: Given initial improvement with amoxicillin and one sided consolidation on CXR suspect pneumonia is main cause of her current illness. Procalcitonin WNL but likely pneumonia has been partially treated with amoxicillin she has been taking since Wednesday. In addition this is similar to her clinical picture on admission in June-July when she became critically unwell requiring intubation therefore would be prudent to treat early. Patient to complete a total 7 days worth of augmentin. Regimen was started inpatient/ Completed azithromycin 5 days during hospital stay. Patient improved (4) UTI (urinary tract infection): Treated by patient with amoxicillin with resolution of symptoms. UA with 3+ protein, 1+ glucose, 2+ blood (persistent from prior UAs) No nephrology/urology follow up despite persistent microscopic hematuria - will need to set up on discharge. (5) CKD (chronic kidney disease), stage III: Cr stable since ATN from sepsis in July this year. Will consult nephrology given patient's recent history with ATN and sepsis in July on back ground of diabetic nephropathy and A4 proteinuria to avoid going into acute renal failure with difficult fluid management and blood pressure control with this patient. Continue IV lasix BID held low dose metolazone. will switch to PO lasix in AM. Strict I&Os (patient reports multiple missed urine outputs as not provided with bowl to measure) Daily weights Appreciate nephrology recommendations (6) Hypertensive urgency: IV lasix. Recently discontinued amlodipine due to leg swelling. Held lisnopril due to renal failure. on hydralazine. Appears better controlled today. Unable to increase carvedilol due to HR. Try to avoid vasodilators due to leg swelling. will continue ot hold dino inhibitor. (7) Hypertension: as above (8) Diabetes: Reduced lantus to 10 units BID due to hypoglycemic episode this morning. Continue ACHS Novolog (9) Hyperlipidemia: (10) History of CVA (cerebrovascular accident): Continue clopidogrel Intolerant to statins (11) Morbid obesity: recommend life style modifications (12) DVT prophylaxis: Heparin 5000 units BID SQ (13) Acute kidney failure: Creatinine has been fluctuating between 2.1 and 2.5 will continue to monitor. (14) Discharge planning issues: PT/OT Total Time Total Time Spent Total Time Spent (In Minutes): 32 Total Time Includes: Examination of the Patient, Discharge Planning and Medication Reconciliation Discharge Plan Discharge Items Patient Disposition: Home - Self-Care Reason For Visit: CHF Discharge Diagnosis: Fluid overload Activity: Resume your previous activity Non-emergency contact: Primary Care Provider Call non-emergency contact if: you have any medication questions Follow-up/Referrals: Edilberto Moser MD [Primary Care Provider] - 02/06/19 1:45 pm (Please, follow up at Dr. Moser's office with his associate, Dr. Mcgarry, on WednesdayFebruary 06 at 1:45 pm. *If you need to change this appointment, call the office at [phone].) Saad Garcia DO [Physician] - 02/01/19 2:40 pm (Please, follow up at [facility]phrology Office with Dr. Garcia on WednesdayFebruary 01 at 2:40 pm. *The office is located in [address] of [facility]. This is the big building [facility] to [facility]. Neprhology and Cardiology share this office. If you need to change this appointment, call the office at [phone].) Jenny Slaughter PA-C [Physician Semiconductor Technician] - 02/01/19 2:00 pm (Congestive Heart Failure Program Appointment Information Early follow up is essential to managing your heart failure. An appointment has been scheduled for you with the [facility] Program within 7 days of discharge. Anticipate this visit to be 30-60 minutes long. Please expect a railway signal electrician phone call from one of our nurses approximately 48 hours from discharge. They will also be placing an order for lab work to be completed 1-2 days prior to your heart failure follow up appointment. Please be sure to have this done so we can go over the results when you come in. Office Location The cardiology office building is located in front of the hospital at [address] Bring the following with you to your follow-up doctor appointments: Please bring your daily weight log any discharge paperwork all of your medication bottles with you to this visit. ) Diet: Carb Consistent or DM2 Addtl Attending Provider Instructions: Recommend followup with Nephrology in about 1 week. Obtain Blood work on Wednesday to reassess kidney function. Call 911 and go to the Emergency Room if: * You have tightness or pain in your chest that does not go away with rest or Nitroglycerin * You are very short of breath even with rest Call your doctor if any of the following symptoms or problems start or get worse: * Shortness of breath or difficulty breathing * Wake up at night short of breath * Chest pain * Cough * Swelling of your hands, fee, or legs * More fatigued or tired with your normal activity * Palpitations - sudden fast heart beats WEIGHT * Weigh yourself every morning after using the bathroom. * Use the same scale. * Wear the same amount of clothing. * Write your weight down on your chart. * Call your doctor if you gain more than 2-3 pounds in 1-2 days. MEDICATIONS * Use this discharge instruction sheet for instructions. * Take your medications at the time your doctor ordered. * Do not skip a dose of your medicines. * If you miss a dose of medicine, take as soon as possible, but DO NOT DOUBLE A DOSE. * Read your medicine information when you get home. * Know all of the side effects of your medicine. * Call your doctor's office if you have any side effects. * Be sure all of your doctors know what medicine and herbs you take (including cold, flu, and herbal medicine). * Pain Medicine: If you do not get relief from your pain, please call your doctor for help. Take the following with you to your follow-up doctor appointments: * Weight Chart * Medication List * List of questions Do not drink excessive alcohol, beer or wine. Pending Studies at Discharge: No Stand-Alone Forms: [facility], Smoking Cessation Medications and DC Order Prescriptions: New hydralazine 50 mg Tablet 50 mg PO BID Qty: 60 RF: 0 furosemide [Lasix] 40 mg tablet 80 mg PO DAILY Qty: 60 RF: 0 Continued pantoprazole 40 mg tablet,delayed release (DR/EC) 40 mg PO DAILY Qty: 90 RF: 3 Novolog Flexpen U-100 Insulin 100 unit/mL (3 mL) insulin pen SC UD RF: 0 acetaminophen [Tylenol] 325 mg Tablet 650 mg PO Q4 PRN (Reason: Pain) RF: 0 carvedilol [Coreg] 25 mg tablet 50 mg PO BID RF: 0 Discontinued lisinopril 40 mg tablet 40 mg PO DAILY Qty: 90 RF: 3 amoxicillin 500 mg Capsule 500 mg PO QID RF: 0 clopidogrel [Plavix] 75 mg Tablet 75 mg PO DAILY RF: 0 No Action Lantus U-100 Insulin 100 unit/mL solution 10 units SQ BID RF: 0 fluticasone propionate [Flonase Allergy Relief] 50 mcg/actuation spray,suspension 2 sprays INTNAS DAILY RF: 0 clopidogrel [Plavix] 75 mg tablet 75 mg PO DAILY RF: 0 potassium chloride 10 mEq tablet extended release 10 meq PO DAILY RF: 0 melatonin 3 mg tablet 3 mg PO HS PRNRF: 0 Discharge Orders: Discharge Order (Routine); Ordered 01/27/19 Ordered By: Martín Zacarias Admission Data Admit Date/Time: 01/20/19 17:59 Attending Provider: Martín Zacarias Admit Provider: August Kaiser Primary Care Provider: Edilberto Moser Other Providers: Lalita Villatoro ; Ryan Lund Other Interventions: Discharge Summary Assessment (RN) Last Done: 01/27/19 12:17 DC Date/Time DO NOT enter until pt leaves facility: 01/27/19 15:02
== END 2019-01-27 15:02 | disposition home or self-care (01) | DRG 193 ==
LOC: ED 14:18 → 2S 17:59 → SUATTDRO 17:59 → 2S 19:11 → 2N 01-21 18:31

== ENCOUNTER 2019-10-06 02:44 | Inpatient (IN) ==
[2019-10-06] MEDS ORDERED: ONDANSETRON INJ 2 MG/ML 2 ML VIAL IV STA (03:15)
--- NOTE | 2019-10-06 03:21 | Emergency Department Note ---
History of Present Illness General Chief complaint: Vomiting Stated complaint: VOMITING Time Seen by Provider: 10/06/19 02:55 Source: patient Mode of arrival: ambulatory Limitations: no limitations History of Present Illness Provider complaint: Nausea, vomiting Onset (ago): day(s) 5 Maximum Pain Intensity: 8 Associated symptoms: + fever/chills, + loss of appetite, + malaise, + nausea/vomiting and + weakness This is a 64-year-old female who presents complaining of persistent nausea vomiting being unable to tolerate anything by mouth. Patient states she first began feeling ill 5 days ago and developed nausea and diarrhea. Patient states she had worsening diarrhea for several days and then began to develop worsening vomiting. Patient states the diarrhea has stopped. Patient states she was seen here this early yesterday morning due to worsening foot pain in addition and underwent an x-ray of her foot as well as an x-ray of her chest. Patient did see family members recently who are from [place], and due to her evolving symptoms she was also concern for possible coronavirus exposure. When she was evaluated here, a coronavirus test was sent. The results of this are still pending. Patient denies that any of her family members she had seen recently were ill or have been tested for COVID. Patient denies any recent change in her overall health. Patient states she was given Tylenol with codeine for her foot pain yesterday and feels that this may have contributed to the worsening vomiting. Patient states she was given a nausea medication at that time, but this has not helped. Patient is also concerned that she has previously had a pneumonia that required intubation and an intensive care unit stay. Patient did not noticed any worsening cough or shortness of breath recently. No accompanying chest pain or abdominal pain. Patient denies any sense of abdominal bloating. Pt seen during a time of high acuity and national emergency pandemic while wearing PPE. Home Medications Home Medications Medication Instructions Recorded Confirmed Type melatonin 3 mg tablet 3 mg PO HS PRN 02/01/19 10/06/19 History hydralazine 50 mg tablet 50 mg PO BID #180 tab 02/20/19 10/06/19 Rx insulin glargine 100 unit/mL (3 10 - 20 unit SQ BID ml 05/15/19 10/06/19 History mL) subcutaneous pen clopidogrel [Plavix] 75 mg PO QAM 05/16/19 10/06/19 History fluticasone propionate [Flonase 2 sprays INTNAS DAILY PRN 05/16/19 10/06/19 History Allergy Relief] pantoprazole 40 mg PO QAM 05/16/19 10/06/19 History BD Ultra-Fine Gwen Pen Needle 32 #500 ea NS 05/30/19 10/05/19 Rx gauge x 5/32" insulin aspart U-100 100 unit/mL 1 - 15 unit SC TIDM PRN #15 ml 07/17/19 10/06/19 Rx (3 mL) subcutaneous pen carvedilol 25 mg tablet 50 mg PO BID #360 tab 08/16/19 10/06/19 Rx metolazone 5 mg tablet 5 mg PO DAILY PRN #20 tab 08/18/19 10/06/19 Rx furosemide 40 mg tablet 40 mg PO BID #180 tab 09/12/19 10/06/19 Rx FreeStyle [place] 14 Day [place] #7 ea NS 09/21/19 10/05/19 Rx diphenhydramine HCl [Benadryl 25 mg PO UD 10/05/19 10/06/19 History Allergy] guaifenesin [Mucinex] 600 mg PO UD 10/05/19 10/06/19 History loperamide [Imodium A-D] 2 mg PO Q6H PRN 10/05/19 10/06/19 History potassium chloride 20 meq PO QAM 10/05/19 10/06/19 History sennosides 8.6 mg PO DAILY PRN 10/05/19 10/06/19 History Allergies Allergy/AdvReac Type Severity Reaction Status Date / Time dulaglutide [From Trulicity] Allergy Intermediate Hives Verified 10/05/19 08:05 insulin lispro Allergy Visual Verified 10/05/19 08:05 [From Humalog U-100 Insulin] Disturbance erythromycin base AdvReac Intermediate Vomiting Verified 10/05/19 08:05 atorvastatin AdvReac Joint Pain Verified 10/05/19 08:05 Past Med/Surg History Medical History (Updated 10/07/19 @ 15:22 by Mariaa Alarcon MD) Anemia (Chronic) CHF (congestive heart failure) CKD (chronic kidney disease), stage III (Chronic) Diabetes (Chronic) Diabetes mellitus, type 2 Difficult airway for intubation Eye abnormality ANUERYSSM BEHIND BOTH EYES - HAS SEEN RETINOLOGIST GERD (gastroesophageal reflux disease) History of CVA (cerebrovascular accident) (Chronic) Hx of Lyme disease Hyperlipidemia (Chronic) Hypertension (Chronic) Hypertension Mitral regurgitation (Chronic) Morbid obesity with BMI of 40.0-44.9, adult (Chronic) Nonischemic cardiomyopathy (Chronic) Surgical History Hx of colonoscopy Hx of eye surgery Hx of left cataract extraction Hx of tonsillectomy Hx of tubal ligation S/P cardiac catheterization 10 YR AGO [facility] Family History Father Family history of diabetes mellitus Aunt Family history of diabetes mellitus Uncle Family history of diabetes mellitus Brother Family history of diabetes mellitus Brother Family history of diabetes mellitus Other Alzheimer disease Coronary heart disease Social History Preferred Language: Irish Communication Ability: Effective Car Coupler Required: No Beliefs That Will Affect Care: None Current Living Situation: Spouse Other Information That Helps Us Care for You: No Feels Safe at Home: Yes Safety Concerns: Feels Safe At This Time Smoking Status: Never smoker Second Hand Exposure: No ; Hx Alcohol Use: Yes Alcohol type: wine Hx Substance Use: No Review of Systems See HPI for pertinent positives & negatives. and A total of 10 systems reviewed and were otherwise negative Physical Exam Vital Signs Vital Signs - 24 hr 10/06/19 02:49 10/06/19 03:18 10/06/19 03:20 Temperature 37.2 C Temperature Source Oral Pulse Rate 82 86 Pulse Rate [Right Finger] 87 Pulse Rate from SpO2 Sensor 87 Pulse Rhythm [Right Finger] Regular Respiratory Rate 20 16 16 Respiratory Effort / Characteristics Non-Labored Non-Labored Spontaneous Respiratory Depth Normal Normal Respiratory Pattern Regular Blood Pressure 168/79 H 171/99 H Blood Pressure [Right Arm] 171/99 H Blood Pressure Mean 108 135 Blood Pressure Mean [Right Arm] 123 Pulse Oximetry 90 86 L 88 L Oxygen Delivery Method Room Air Room Air Room Air Oxygen Flow Rate Sepsis Recent Fever Within 48 Hours No Sepsis New/Unexplained Change in Mental Status No Sepsis Action Taken by Nursing No Action Required 10/06/19 04:17 10/06/19 05:00 10/06/19 05:48 Temperature Temperature Source Pulse Rate 84 85 79 Pulse Rate [Right Finger] Pulse Rate from SpO2 Sensor 78 Pulse Rhythm [Right Finger] Respiratory Rate 14 22 16 Respiratory Effort / Characteristics Respiratory Depth Respiratory Pattern Blood Pressure 200/101 H 193/102 H 194/139 H Blood Pressure [Right Arm] Blood Pressure Mean 157 148 168 Blood Pressure Mean [Right Arm] Pulse Oximetry 97 99 98 Oxygen Delivery Method Nasal Cannula Nasal Cannula Nasal Cannula Oxygen Flow Rate 2 2 2 Sepsis Recent Fever Within 48 Hours Sepsis New/Unexplained Change in Mental Status Sepsis Action Taken by Nursing 10/06/19 05:49 10/06/19 06:11 10/06/19 06:14 Temperature Temperature Source Pulse Rate 78 87 Pulse Rate [Right Finger] 78 Pulse Rate from SpO2 Sensor Pulse Rhythm [Right Finger] Respiratory Rate 19 23 16 Respiratory Effort / Characteristics Non-Labored Spontaneous Respiratory Depth Normal Respiratory Pattern Regular Blood Pressure 200/95 H 205/98 H Blood Pressure [Right Arm] 205/98 H Blood Pressure Mean 107 106 Blood Pressure Mean [Right Arm] 133 Pulse Oximetry 97 99 100 Oxygen Delivery Method Nasal Cannula Nasal Cannula Nasal Cannula Oxygen Flow Rate 2 2 2 Sepsis Recent Fever Within 48 Hours Sepsis New/Unexplained Change in Mental Status Sepsis Action Taken by Nursing 10/06/19 07:30 Temperature Temperature Source Pulse Rate Pulse Rate [Right Finger] 75 Pulse Rate from SpO2 Sensor Pulse Rhythm [Right Finger] Respiratory Rate 18 Respiratory Effort / Characteristics Non-Labored Respiratory Depth Normal Respiratory Pattern Blood Pressure Blood Pressure [Right Arm] 214/94 H Blood Pressure Mean Blood Pressure Mean [Right Arm] 134 Pulse Oximetry 100 Oxygen Delivery Method Room Air Oxygen Flow Rate Sepsis Recent Fever Within 48 Hours Sepsis New/Unexplained Change in Mental Status Sepsis Action Taken by Nursing GENERAL: alert, well appearing, well nourished, no distress, non-toxic, obese, pt holding emesis bag with bilious emesis noted, no gross blood EYE EXAM: normal conjunctiva, PERRL and EOM's grossly intact OROPHARYNX: no exudate, no erythema, lips, buccal mucosa, and tongue normal and mucous membranes are moist NECK: supple, no nuchal rigidity, no adenopathy, non-tender LUNGS: Clear to auscultation. Normal chest wall mechanics, no w/r/r HEART: no murmurs, S1 normal and S2 normal ABDOMEN: abdomen soft, non-tender, normo-active bowel sounds, no masses, no rebound or guarding. BACK: Back is symmetrical on inspection and there is no deformity, no midline tenderness, no CVA tenderness. SKIN: no rashes and no bruising UPPER EXTREMITIES: upper extremities are grossly normal. FROM, nml pulses b/l. LOWER EXTREMITIES: No pitting edema. FROM, nml pulses b/l. NEURO EXAM: Normal sensorium, cranial nerves II-XII grossly intact, normal speech, no gross weakness of arms, no gross weakness of legs. Gross sensation intact. Course Course 0500: Patient updated on results and in agreement with plan for additional inpatient evaluation and treatment. 0515: Case discussed with Dr. White. We discussed repeat in house COVID testing as well as additional abdominal imaging. Administered Medications Carvedilol (Coreg) 50 mg PO BID [facility] Stop: 11/05/19 08:59 Last Admin: 10/07/19 10:51 Dose: 50 mg Documented by: [id number] Admin: 10/06/19 21:47 Dose: 50 mg Documented by: [id number] Admin: 10/06/19 11:40 Dose: 50 mg Documented by: [id number] Hydralazine HCl (Apresoline) 50 mg PO BID [facility] Stop: 11/05/19 08:59 Last Admin: 10/07/19 10:51 Dose: 50 mg Documented by: [id number] Admin: 10/06/19 21:46 Dose: 50 mg Documented by: [id number] Admin: 10/06/19 11:40 Dose: 50 mg Documented by: [id number] Ciprofloxacin (Cipro) 400 mg in 200 mls @ 100 mls/hr IV Q24H [facility]; Protocol Stop: 10/16/19 16:59 Last Admin: 10/07/19 18:01 Dose: 100 mls/hr Documented by: [id number] Infusion: 10/06/19 19:49 Dose: 0 mls/hr Documented by: [id number] Admin: 10/06/19 17:27 Dose: 100 mls/hr Documented by: [id number] Metronidazole (Flagyl) 500 mg in 100 mls @ 100 mls/hr IV Q8H [facility] Stop: 10/16/19 16:59 Last Infusion: 10/07/19 19:14 Dose: 0 mls/hr Documented by: [id number] Admin: 10/07/19 17:01 Dose: 100 mls/hr Documented by: [id number] Infusion: 10/07/19 12:00 Dose: 0 mls/hr Documented by: [id number] Admin: 10/07/19 10:58 Dose: 100 mls/hr Documented by: [id number] Infusion: 10/07/19 02:56 Dose: 0 mls/hr Documented by: [id number] Admin: 10/07/19 01:50 Dose: 100 mls/hr Documented by: [id number] Infusion: 10/06/19 18:39 Dose: 0 mls/hr Documented by: [id number] Admin: 10/06/19 17:43 Dose: 100 mls/hr Documented by: [id number] Cefazolin Sodium (Ancef 2000mg) 2,000 mg in 15 mls @ 3.75 mls/min IV PREOP JACE; Protocol Stop: 10/17/19 05:59 Last Admin: 10/07/19 08:17 Dose: 3.75 mls/min Documented by: [id number] Insulin Aspart (Novolog Flexpen) 0 units SC ACHS [facility] Stop: 11/06/19 16:29 Last Admin: 10/07/19 16:48 Dose: 3 units Documented by: [id number] Cosigned by: [id number] Insulin Glargine (Lantus Solostar Pen) 0 units SQ BID JACE; Protocol Stop: 11/05/19 20:59 Last Admin: 10/07/19 10:52 Dose: 10 units Documented by: [id number] Cosigned by: [id number] Admin: 10/06/19 21:48 Dose: 20 units Documented by: [id number] Cosigned by: [id number] Ondansetron HCl (Zofran) 4 mg IV Q6H PRN PRN Reason: Nausea Stop: 11/05/19 10:17 Last Admin: 10/07/19 04:19 Dose: 4 mg Documented by: [id number] Pantoprazole Sodium (Protonix) 40 mg PO QAM JACE Stop: 11/05/19 10:17 Last Admin: 10/07/19 10:52 Dose: 40 mg Documented by: [id number] Admin: 10/06/19 11:11 Dose: 40 mg Documented by: [id number] Discontinued Medications Bupivacaine HCl (Marcaine 0.5% Mpf) Confirm Administered Dose 30 ml .ROUTE .STK- MED ONE Stop: 10/07/19 07:50 Last Admin: 10/07/19 09:46 Dose: 20 ml Documented by: [id number] Clopidogrel Bisulfate (Plavix) 75 mg PO QAM JACE Stop: 11/05/19 10:17 Last Admin: 10/06/19 11:11 Dose: 75 mg Documented by: [id number] Epinephrine HCl (Epinephrine) Confirm Administered Dose 1 mg .ROUTE .STK-MED ONE Stop: 10/07/19 07:50 Last Admin: 10/07/19 09:52 Dose: 1 mg Documented by: [id number] Flumazenil (Romazicon) 0.2 mg IV NOW STA Stop: 10/06/19 19:01 Last Admin: 10/06/19 19:29 Dose: 0.2 mg Documented by: [id number] Heparin Sodium (Porcine) (Heparin Sodium (Porcine)) 5,000 units SQ Q12 JACE Stop: 11/05/19 10:17 Last Admin: 10/06/19 11:06 Dose: 5,000 units Documented by: [id number] Cosigned by: [id number] Sodium Chloride (Nss 1000ml) 1,000 mls @ 250 mls/hr IV .Q4H JACE Stop: 11/05/19 03:14 Last Admin: 10/06/19 10:20 Dose: Not Given Documented by: [id number] Infusion: 10/06/19 10:20 Dose: 0 mls/hr Documented by: [id number] Infusion: 10/06/19 07:31 Dose: 0 mls/hr Documented by: [id number] Admin: 10/06/19 03:25 Dose: 250 mls/hr Documented by: [id number] Sodium Chloride (Nss 1000ml) 1,000 mls @ 100 mls/hr IV .Q10H JACE Stop: 10/07/19 06:17 Last Infusion: 10/07/19 11:29 Dose: 0 mls/hr Documented by: [id number] Admin: 10/07/19 01:43 Dose: 100 mls/hr Documented by: [id number] Infusion: 10/07/19 01:28 Dose: 100 mls/hr Documented by: [id number] Infusion: 10/06/19 16:28 Dose: 100 mls/hr Documented by: [id number] Infusion: 10/06/19 12:12 Dose: 0 mls/hr Documented by: [id number] Admin: 10/06/19 11:12 Dose: 100 mls/hr Documented by: [id number] Lorazepam (Ativan) 0.5 mg in 1 mls @ 1 mls/min IV Q4H PRN PRN Reason: Anxiety Stop: 11/05/19 17:32 Last Admin: 10/06/19 18:13 Dose: 1 mls/min Documented by: [id number] Sodium Chloride (Nss 1000ml) 1,000 mls @ 70 mls/hr IV .[id number] JACE Stop: 10/08/19 05:32 Last Infusion: 10/07/19 19:14 Dose: 0 mls/hr Documented by: [id number] Admin: 10/07/19 16:45 Dose: 70 mls/hr Documented by: [id number] Insulin Aspart (Novolog Flexpen) 10 units SC NOW STA Stop: 10/06/19 07:19 Last Admin: 10/06/19 11:12 Dose: Not Given Documented by: [id number] Cosigned by: [id number] Insulin Aspart (Novolog Flexpen) 0 units SC Q6 JACE Stop: 11/05/19 10:59 Last Admin: 10/07/19 12:05 Dose: 8 units Documented by: [id number] Cosigned by: [id number] Admin: 10/07/19 07:00 Dose: 3 units Documented by: [id number] Cosigned by: [id number] Admin: 10/07/19 00:48 Dose: 2 units Documented by: [id number] Cosigned by: [id number] Admin: 10/06/19 17:29 Dose: 3 units Documented by: [id number] Cosigned by: [id number] Admin: 10/06/19 11:40 Dose: 5 units Documented by: [id number] Cosigned by: [id number] Insulin Glargine (Lantus Solostar Pen) 15 units SQ ONE ONE Stop: 10/06/19 11:01 Last Admin: 10/06/19 11:38 Dose: 15 units Documented by: [id number] Cosigned by: [id number] Labetalol HCl (Normodyne) 10 mg IV NOW STA Stop: 10/06/19 05:17 Last Admin: 10/06/19 05:45 Dose: 10 mg Documented by: [id number] Cosigned by: [id number] Labetalol HCl (Normodyne) 10 mg IV NOW STA Stop: 07/03/20 07:19 Last Admin: 10/06/19 07:24 Dose: 10 mg Documented by: [id number] Cosigned by: [id number] Miscellaneous Information (Consult Glycemic Management Pharmacy) 1 ea N/A NOW STA; Protocol Stop: 10/06/19 08:49 Last Admin: 10/06/19 10:38 Dose: Not Given Documented by: [id number] Morphine Sulfate (Morphine Sulfate) Confirm Administered Dose 2 mg .ROUTE .STK- MED ONE Stop: 10/06/19 15:00 Last Admin: 10/06/19 15:20 Dose: 2 mg Documented by: [id number] Morphine Sulfate (Morphine Sulfate) 2 mg IV ONE ONE Stop: 10/06/19 15:16 Last Admin: 10/06/19 15:21 Dose: Not Given Documented by: [id number] Ondansetron HCl (Zofran) 4 mg IV NOW STA Stop: 10/06/19 03:16 Last Admin: 10/06/19 03:24 Dose: 4 mg Documented by: [id number] Oxycodone/Acetaminophen (Percocet 5mg/325mg) 2 tab PO Q4H PRN PRN Reason: SEVERE Pain (Scale 7,8,9,10) Stop: 10/21/19 10:45 Last Admin: 10/07/19 12:08 Dose: 2 tab Documented by: [id number] Critical Care Time Critical Care Time: Yes Total Critical Care Time: 39 Critical care of 39 min performed to assess and manage high likelihood of life- threatening vomiting and TANYA, involving labs and imaging performed with assessment to evaluate TANYA and vomiting diagnosis with frequent reassessment. This time includes bedside time, treatment discussions with p atient/family/consultants, documentation time and excludes procedure time. Medical Decision Making Differential Diagnosis Differential: Gastroenteritis, Food Borne, Esophageal Perforation, , Electrolyte Abnormality, Dehydration, Intraabdominal Infection, UTI/Pyelonephritis, Bowel Obstruction, Biliary Pathology, amongst other pathology entertained. Medical Records Attestation: I reviewed the patient's medical records. Home Medications Current Medication List: was personally reviewed by me Laboratory Data Attestation: I reviewed the patient's lab results. Result diagrams: 10/07/19 06:44 10/07/19 06:44 Lab Results 10/06/19 10/06/19 10/06/19 Range/Units 03:26 03:26 03:26 WBC 10.76 (4.8-10.8) K/uL RBC 3.21 L (4.2-5.4) M/uL Hgb 8.8 L (12.0-16.0) g/dL Hct 27.4 L (37-47) % MCV 85.4 (80-100) fL MCH 27.4 (25-34) pg MCHC 32.1 (32-36) g/dL RDW Std Deviation 46.1 (36.4-46.3) fL RDW Coeff of Braeden 14.7 H (11.5-14.5) % Plt Count 233 (130-400) K/uL MPV 9.5 (7.4-10.4) fL Immature Gran % (Auto) 0.6 % Neut % (Auto) 84.2 % Lymph % (Auto) 9.9 % [place] % (Auto) 4.9 % Eos % (Auto) 0.2 % Baso % (Auto) 0.2 % Neut # (Auto) 9.06 H (1.4-6.5) K/uL Lymph # (Auto) 1.07 L (1.2-3.4) K/uL [place] # (Auto) 0.53 (0.11-0.59) K/uL Eos # (Auto) 0.02 (0-0.5) K/uL Baso # (Auto) 0.02 (0-0.2) K/uL Immature Gran # (Auto) 0.06 H (0.00-0.02) K/uL PT 11.1 (9.0-12.0) Seconds INR 1.1 (0.9-1.1) Sodium 139 (136-145) mmol/L Potassium 4.5 (3.5-5.1) mmol/L Chloride 107 (98-107) mmol/L Carbon Dioxide 25 (21-32) mmol/L Anion Gap 7.0 (3-11) BUN 46 H (7-18) mg/dl Creatinine 3.00 H (0.6-1.2) mg/dl Est Cr Clr Drug Dosing Not Reportable Est GFR ( Amer) 18.3 Est GFR (Non-Af Amer) 15.8 BUN/Creatinine Ratio 15.4 (10-20) Glucose 313 H* (70-99) mg/dl POC Glucose (70-99) mg/dl Lactate (0.4-2.0) mmol/L Calcium 9.5 (8.5-10.1) mg/dl Magnesium 2.3 (1.8-2.4) mg/dl Total Bilirubin 0.2 (0.2-1) mg/dl AST 68 H (15-37) U/L ALT 64 (12-78) U/L Alkaline Phosphatase 101 (45-117) U/L Total Creatine Kinase (26-192) U/L Troponin I 0.023 (0-0.045) ng/ml Total Protein 7.2 (6.4-8.2) gm/dl Albumin 2.4 L (3.4-5.0) gm/dl Globulin 4.8 H (2.5-4.0) gm/dl Albumin/Globulin Ratio 0.5 L (0.9-2) Lipase 18 L (73-393) U/L Beta-Hydroxybutyric Acd 6.11 H (0.2-2.81) mg/dl Procalcitonin (0-0.5) ng/ml TSH 3.180 (0.300-4.500) uIu/ml COVID-19 PCR (Negative) 10/06/19 10/06/19 10/06/19 Range/Units 03:26 03:26 05:30 WBC (4.8-10.8) K/uL RBC (4.2-5.4) M/uL Hgb (12.0-16.0) g/dL Hct (37-47) % MCV (80-100) fL MCH (25-34) pg MCHC (32-36) g/dL RDW Std Deviation (36.4-46.3) fL RDW Coeff of Braeden (11.5-14.5) % Plt Count (130-400) K/uL MPV (7.4-10.4) fL Immature Gran % (Auto) % Neut % (Auto) % Lymph % (Auto) % [place] % (Auto) % Eos % (Auto) % Baso % (Auto) % Neut # (Auto) (1.4-6.5) K/uL Lymph # (Auto) (1.2-3.4) K/uL [place] # (Auto) (0.11-0.59) K/uL Eos # (Auto) (0-0.5) K/uL Baso # (Auto) (0-0.2) K/uL Immature Gran # (Auto) (0.00-0.02) K/uL PT (9.0-12.0) Seconds INR (0.9-1.1) Sodium (136-145) mmol/L Potassium (3.5-5.1) mmol/L Chloride (98-107) mmol/L Carbon Dioxide (21-32) mmol/L Anion Gap (3-11) BUN (7-18) mg/dl Creatinine (0.6-1.2) mg/dl Est Cr Clr Drug Dosing Est GFR ( Amer) Est GFR (Non-Af Amer) BUN/Creatinine Ratio (10-20) Glucose (70-99) mg/dl POC Glucose (70-99) mg/dl Lactate 1.6 (0.4-2.0) mmol/L Calcium (8.5-10.1) mg/dl Magnesium (1.8-2.4) mg/dl Total Bilirubin (0.2-1) mg/dl AST (15-37) U/L ALT (12-78) U/L Alkaline Phosphatase (45-117) U/L Total Creatine Kinase 39 (26-192) U/L Troponin I (0-0.045) ng/ml Total Protein (6.4-8.2) gm/dl Albumin (3.4-5.0) gm/dl Globulin (2.5-4.0) gm/dl Albumin/Globulin Ratio (0.9-2) Lipase (73-393) U/L Beta-Hydroxybutyric Acd (0.2-2.81) mg/dl Procalcitonin (0-0.5) ng/ml TSH (0.300-4.500) uIu/ml COVID-19 PCR NEGATIVE (Negative) 10/06/19 10/06/19 Range/Units 05:45 06:10 WBC (4.8-10.8) K/uL RBC (4.2-5.4) M/uL Hgb (12.0-16.0) g/dL Hct (37-47) % MCV (80-100) fL MCH (25-34) pg MCHC (32-36) g/dL RDW Std Deviation (36.4-46.3) fL RDW Coeff of Braeden (11.5-14.5) % Plt Count (130-400) K/uL MPV (7.4-10.4) fL Immature Gran % (Auto) % Neut % (Auto) % Lymph % (Auto) % [place] % (Auto) % Eos % (Auto) % Baso % (Auto) % Neut # (Auto) (1.4-6.5) K/uL Lymph # (Auto) (1.2-3.4) K/uL [place] # (Auto) (0.11-0.59) K/uL Eos # (Auto) (0-0.5) K/uL Baso # (Auto) (0-0.2) K/uL Immature Gran # (Auto) (0.00-0.02) K/uL PT (9.0-12.0) Seconds INR (0.9-1.1) Sodium (136-145) mmol/L Potassium (3.5-5.1) mmol/L Chloride (98-107) mmol/L Carbon Dioxide (21-32) mmol/L Anion Gap (3-11) BUN (7-18) mg/dl Creatinine (0.6-1.2) mg/dl Est Cr Clr Drug Dosing Est GFR ( Amer) Est GFR (Non-Af Amer) BUN/Creatinine Ratio (10-20) Glucose (70-99) mg/dl POC Glucose 303 H* (70-99) mg/dl Lactate (0.4-2.0) mmol/L Calcium (8.5-10.1) mg/dl Magnesium (1.8-2.4) mg/dl Total Bilirubin (0.2-1) mg/dl AST (15-37) U/L ALT (12-78) U/L Alkaline Phosphatase (45-117) U/L Total Creatine Kinase (26-192) U/L Troponin I (0-0.045) ng/ml Total Protein (6.4-8.2) gm/dl Albumin (3.4-5.0) gm/dl Globulin (2.5-4.0) gm/dl Albumin/Globulin Ratio (0.9-2) Lipase (73-393) U/L Beta-Hydroxybutyric Acd (0.2-2.81) mg/dl Procalcitonin 0.20 (0-0.5) ng/ml TSH (0.300-4.500) uIu/ml COVID-19 PCR (Negative) Imaging Data My Impression: X-ray: I interpreted the following studies. Chest: A single view study of the chest was reviewed and was negative for cardiomegaly, focal infiltrate, effusion, pulmonary edema, or wide mediastinum. Abdomen: A two view study of the abdomen was reviewed, no evidence of SBO or free air. Radiologist's Impression: CT abdomen and pelvis without contrast: No previous studies for comparison. The liver, spleen, pancreas appear normal. There is cholelithiasis and there is gallbladder distention. Stomach, small bowel, colon and appendix appear normal. Adrenals, kidneys, ureters, and bladder appear normal. Uterus appears normal. Vascular structures demonstrate moderate atherosclerotic change. There are small bilateral pleural fluid collections. Impression: Cholelithiasis. Correlation with history and exam recommended. Small bilateral pleural fluid collections are nonspecific. Radiologist: Sekou Romero MD Blood Pressure Blood Pressure Findings: Elevated blood pressure Blood Pressure Disposition: further management by hospitalist MDM Narrative Pt here with Gi symptoms and active vomiting. VS stable and pt afebrile. Labs drawn and sent, xrays performed first given pending COVID test. Pt started on gentle IVF rehydration and given zofran for nausea. Only 1 further episode of vomiting while here. No diarrhea and no abdominal pain. Pt updated on all results. Pt anemic, which she states is chronic however this appears slightly lower than the prior. Pt's creatinine elevated compared to baseline despite hx of CKD. Most likely dehydration, UA pending. No recent urinary symptoms and no hx of recurrent UTI. No leukocytosis or elevated lactic acid. I do not suspect ischemic process. Discussed with hospitalist prior to ordering CT given pending COVID. They would like repeat in house rapid COVID performed and are in agreement with CT in addition. CT without acute process, cholelithiasis noted however no abdominal pain or abnormal LFT's, I feel acute cholecystitis less likely to be causing her symptoms at this time. Pt was in agreement with plan and verbalized understanding of results and my concerns. An order was placed for continuous cardiac monitoring. The monitor shows a rate of 68 with _normal sinus_ rhythm. Impression & Plan Nausea vomiting and diarrhea, Anemia, Morbid obesity, TANYA (acute kidney injury), Acute dehydration, Acute hyperglycemia, Cholelithiasis Discharge Plan Visit Data *Final* Discharge Date/Time: 10/06/19 09:23 Chief Complaint: Vomiting Stated Complaint: VOMITING ED Provider: Swapna Arceo Discharge Problem: Nausea vomiting and diarrhea, Anemia, Morbid obesity, TANYA (acute kidney injury), Acute dehydration, Acute hyperglycemia, Cholelithiasis Patient Disposition: Admitted As Inpatient Condition: Good Discharge Instructions Interventions: ED Discharge Assessment Last Done: 10/06/19 09:23 Discharge Problem: Anemia Qualifiers: Anemia type: unspecified type Qualified Code(s): D64.9 - Anemia, unspecified Cholelithiasis Qualifiers: Cholelithiasis location: gallbladder Cholecystitis presence: without cholecystitis Biliary obstruction: without biliary obstruction Qualified Code(s): K80.20 - Calculus of gallbladder without cholecystitis without obstruction
[2019-10-06] MEDS: SODIUM CHLORIDE 0.9% 1000ML 1,000 ML IV SCH ×3 (03:25→11:12)
[2019-10-06 03:41] LABS: Hematocrit (blood only) 27.4 % (37-47); Hemoglobin 8.8 g/dL (12.0-16.0); Mean Corpuscular Hemoglobin 27.4 pg (25-34); Mean Corpuscular Hgb Conc 32.1 g/dL (32-36); Mean Corpuscular Volume 85.4 fL (80-100); Mean Platelet Volume 9.5 fL (7.4-10.4); Platelet Count 233 K/uL (130-400); RDW Coefficient of Variation 14.7 % (11.5-14.5); RDW Standard Deviation 46.1 fL (36.4-46.3); Red Blood Count 3.21 M/uL (4.2-5.4); White Blood Count 10.76 K/uL (4.8-10.8)
[2019-10-06 03:50] LABS: INR 1.1 (0.9-1.1); Prothrombin Time 11.1 Seconds (9.0-12.0)
[2019-10-06 04:00] LABS: Basophils # (auto) 0.02 K/uL (0-0.2); Basophils % (auto) 0.2 %; Eosinophils # (auto) 0.02 K/uL (0-0.5); Eosinophils % (auto) 0.2 %; Immature Granulocytes # (auto) 0.06 K/uL (0.00-0.02); Immature Granulocytes % (auto) 0.6 %; Lymphocytes # (auto) 1.07 K/uL (1.2-3.4); Lymphocytes % (auto) 9.9 %; Monocytes # (auto) 0.53 K/uL (0.11-0.59); Monocytes % (auto) 4.9 %; Neutrophils # (auto) 9.06 K/uL (1.4-6.5); Neutrophils % (auto) 84.2 %
[2019-10-06 04:14] LABS: Alanine Aminotransferase 64 U/L (12-78); Albumin Globulin Ratio 0.5 (0.9-2); Albumin Level 2.4 gm/dl (3.4-5.0); Alkaline Phosphatase 101 U/L (45-117); Aspartate Aminotransferase 68 U/L (15-37); BUN Creatinine Ratio 15.4 (10-20); Bilirubin,Total 0.2 mg/dl (0.2-1); Blood Urea Nitrogen 46 mg/dl (7-18); Calcium 9.5 mg/dl (8.5-10.1); Carbon Dioxide 25 mmol/L (21-32); Chloride 107 mmol/L (98-107); Est GFR (African American) 18.3; Est GFR (Non-African American) 15.8; Globulin 4.8 gm/dl (2.5-4.0); Glucose 313 mg/dl (70-99); Lipase 18 U/L (73-393); Magnesium 2.3 mg/dl (1.8-2.4); Potassium 4.5 mmol/L (3.5-5.1); Sodium 139 mmol/L (136-145); Total Protein 7.2 gm/dl (6.4-8.2); Troponin I 0.023 ng/ml (0-0.045)
[2019-10-06 04:32] LABS: Beta-Hydroxybutyrate 6.11 mg/dl (0.2-2.81)
[2019-10-06] MEDS ORDERED: LABETALOL HCL IV 5 MG/ML 20ML IV STA ×2 (05:16→07:18)
[2019-10-06] MEDS ORDERED: INSULIN ASPART 100 UNITS/ML 3 ML PEN SC STA (07:18)
--- NOTE | 2019-10-06 07:22 | XRay Report ---
XR abdomen 2V w PA chest CLINICAL HISTORY: n/v/d COMPARISON STUDY: No previous studies for comparison. FINDINGS: The soft tissues, psoas shadows, renal outlines and intestinal gas pattern appear normal. T here is no evidence for bowel obstruction. There is no evidence for free intraperitoneal air. No abno rmal abdominal calcifications are seen. A frontal view of the chest was performed and is unremarkable . IMPRESSION: Normal study. ACT 112: Negative or not required by law. The above report was generated using voice recognition software. It may contain grammatical, syntax or spelling errors. Electronically signed by: Colton Oseguera M.D. 10/06/2019 7:20 AM
--- NOTE | 2019-10-06 07:25 | CT Scan Report ---
CT abd pelvis wo con CT DOSE: 1108.51 mGycm HISTORY: n/v/d TECHNIQUE: Multiaxial CT images of the abdomen and pelvis were performed without contrast. A dose lo wering technique was utilized adhering to the principles of ALARA. COMPARISON STUDY: None. FINDINGS: Trace pleural fluid both lung bases. Liver spleen and pancreas are unremarkable. Gallstones are present within the gallbladder lumen. Kidneys negative for hydronephrosis. Nonobstructive bowel pattern. IMPRESSION: 1. Small bilateral pleural effusions. 2. Gallstones. ACT 112: Negative or not required by law. The above report was generated using voice recognition software. It may contain grammatical, syntax or spelling errors. Electronically signed by: Colton Oseguera M.D. 10/06/2019 7:24 AM
[2019-10-06] MEDS ORDERED: PHARMACY GLYCEMIC MGMT CONSULT STA (08:48)
[2019-10-06] MEDS ORDERED: HydrALAZINE HCL 20 MG/ML VIAL IV PRN (08:48)
--- NOTE | 2019-10-06 08:50 | History & Physical Report ---
Date of Service October 06, 2019 Assessment & Plan (1) Nausea vomiting and diarrhea: With fever, borderline leukocytosis, nonbloody nausea/vomiting/diarrhea x5 days. With mildly elevated AST and ALT. CT abdomen/pelvis with cholelithiasis and no other abnormalities Could have acute cholecystitis -Admit to medical floor with telemetry -Keep n.p.o. -Check HIDA scan for acute cholecystitis -Hydrate with IV fluids -Start antibiotics if HIDA scan is positive and would consult general surgery at that time for discussion of cholecystectomy -We will hold off on getting blood cultures unless she spikes a fever here -Check stool culture, O&P, C. difficile as she did take doxycycline within the last month -Follow CBC, electrolytes and renal function (2) Cholelithiasis: Noted on CT scan as above (3) TANYA (acute kidney injury): Creatinine baseline around 2.5 and is 3.0 on admission Likely secondary to prerenal TANYA from GI losses -Hydrate with normal saline -Hold home Lasix and metolazone as well as potassium -Follow BMP in the morning (4) Acute dehydration: As above Hydrating -Follow BMP -Holding home diuretics (5) Anemia: Hemoglobin slightly lower than baseline at 8.8-baseline is around 9-10 No GI bleeding that is obvious -Check Hemoccult stool Likely secondary to anemia of chronic kidney disease -Follow CBC Check iron studies and B12 and folate in the morning (6) Nonischemic cardiomyopathy: Now resolved, thought to be secondary to Avandia in the past (7) CKD (chronic kidney disease), stage III: As above, baseline creatinine 2.5 -Avoid nephrotoxins -renally dose meds when appropriate -follow BMP (8) Diabetes: With hyperglycemia here secondary to acute stress response and illness -Continue Lantus and insulin Pharmacy glycemic control consult placed Is n.p.o. (9) Hypertension: With hypertensive urgency in the ER as she was not able to tolerate taking her blood pressure medicines with the nausea and vomiting -Feeling a little bit better and may be able to tolerate p.o. -Restart home carvedilol 50 mg p.o. twice daily, hydralazine 50 mg p.o. twice daily, but holding home diuretics -Can give IV hydralazine as needed (10) Diastolic CHF: Chronic diastolic CHF Is hypovolemic at this time Holding home diuretics Blood pressure control (11) CAD (coronary artery disease): Nonobstructive CAD as per cardiac catheterization 2009 No chest pain at this time and troponin is in the normal range at 0.023 ECG with normal sinus rhythm and T wave inversions in leads II and III unchanged from previous -Continue home carvedilol, but will hold Plavix at this time in case of need for surgery (12) Acute respiratory failure with hypoxia: Had mild hypoxia in the ER and had to be placed on 2 L nasal cannula Chest x-ray is normal COVID 19 test is negative Has no history of lung disease but did have a bad viral pneumonia requiring intubation and ventilation in 2019 and may have some chronic lung injury from that? -Continue supplemental O2 to keep pulse ox greater than 92% -Follow (13) Plantar fasciitis: Right foot with recent plantar fasciitis most likely Improving already X-ray negative from recent ER visit (14) DVT prophylaxis: Heparin SQ but would hold in case of need for surgery of the gallbladder Disposition-admit to medical floor with telemetry History of Present Illness Chief Complaint: Nausea/vomiting/diarrhea Primary Care Provider: Kaushik Mcgarry MD This patient is a 64-year-old female with a history of CKD stage III, HTN, nonobstructive CAD, chronic diastolic CHF, hyperlipidemia, resolved nonischemic cardiomyopathy, DM 2, primary hyperparathyroidism with hypercalcemia, and anemia of chronic disease, who presents to the ER with 5 days of nausea/vomiting and diarrhea. She started with some chills on Wednesday and then had 2 days of profuse watery nonbloody diarrhea. She then had nausea and vomiting for the next 2 days that was also nonbloody and no coffee-ground emesis or melena. She had a fever yesterday and significant right foot pain which brought her to the ER. She had an x-ray of the foot which was negative and had a documented fever in the ER. She was discharged home with some Zofran but returned as she continued to vomit at home after taking Tylenol with codeine. She came to the ER today and had bilious vomiting in the emergency room. Chemistry showed acute kidney injury in the setting of CKD, her anemia was slightly worse than usual at 8.8 for hemoglobin, and her AST was mildly elevated at 68. A lactate was normal. Her blood sugar was elevated in the 300s. A chest x-ray was negative but she had some mild hypoxemia. Her COVID test was negative. She is not eat eaten out at restaurants or had any recent sick contacts. She did have family that visited from [place] who were coughing and sneezing, but no known contacts with COVID. Allergies Allergy/AdvReac Type Severity Reaction Status Date / Time dulaglutide [From Trulicity] Allergy Intermediate Hives Verified 10/05/19 08:05 insulin lispro Allergy Visual Verified 10/05/19 08:05 [From Humalog U-100 Insulin] Disturbance erythromycin base AdvReac Intermediate Vomiting Verified 10/05/19 08:05 atorvastatin AdvReac Joint Pain Verified 10/05/19 08:05 Home Medications Home Medications Medication Instructions Recorded Confirmed Type melatonin 3 mg tablet 3 mg PO HS PRN 02/01/19 10/06/19 History hydralazine 50 mg tablet 50 mg PO BID #180 tab 02/20/19 10/06/19 Rx insulin glargine 100 unit/mL (3 10 - 20 unit SQ BID ml 05/15/19 10/06/19 History mL) subcutaneous pen clopidogrel [Plavix] 75 mg PO QAM 05/16/19 10/06/19 History fluticasone propionate [Flonase 2 sprays INTNAS DAILY PRN 05/16/19 10/06/19 History Allergy Relief] pantoprazole 40 mg PO QAM 05/16/19 10/06/19 History BD Ultra-Fine Gwen Pen Needle 32 #500 ea NS 05/30/19 10/05/19 Rx gauge x 5/32" insulin aspart U-100 100 unit/mL 1 - 15 unit SC TIDM PRN #15 ml 07/17/19 10/06/19 Rx (3 mL) subcutaneous pen carvedilol 25 mg tablet 50 mg PO BID #360 tab 08/16/19 10/06/19 Rx metolazone 5 mg tablet 5 mg PO DAILY PRN #20 tab 08/18/19 10/06/19 Rx furosemide 40 mg tablet 40 mg PO BID #180 tab 09/12/19 10/06/19 Rx FreeStyle [place] 14 Day [place] #7 ea NS 09/21/19 10/05/19 Rx diphenhydramine HCl [Benadryl 25 mg PO UD 10/05/19 10/06/19 History Allergy] guaifenesin [Mucinex] 600 mg PO UD 10/05/19 10/06/19 History loperamide [Imodium A-D] 2 mg PO Q6H PRN 10/05/19 10/06/19 History potassium chloride 20 meq PO QAM 10/05/19 10/06/19 History sennosides 8.6 mg PO DAILY PRN 10/05/19 10/06/19 History Past Med/Surg History Medical History Anemia (Chronic) CHF (congestive heart failure) CKD (chronic kidney disease), stage III (Chronic) Diabetes (Chronic) Diabetes mellitus, type 2 Eye abnormality ANUERYSSM BEHIND BOTH EYES - HAS SEEN RETINOLOGIST GERD (gastroesophageal reflux disease) History of CVA (cerebrovascular accident) (Chronic) Hx of Lyme disease Hyperlipidemia (Chronic) Hypertension (Chronic) Hypertension Mitral regurgitation (Chronic) Morbid obesity with BMI of 40.0-44.9, adult (Chronic) Nonischemic cardiomyopathy (Chronic) Surgical History Hx of colonoscopy Hx of eye surgery Hx of left cataract extraction Hx of tonsillectomy Hx of tubal ligation S/P cardiac catheterization 10 YR AGO [facility] Family History Father Family history of diabetes mellitus Aunt Family history of diabetes mellitus Uncle Family history of diabetes mellitus Brother Family history of diabetes mellitus Brother Family history of diabetes mellitus Other Alzheimer disease Coronary heart disease Social History Preferred Language: Spanish Communication Ability: Effective Director Operations Required: No Beliefs That Will Affect Care: None Current Living Situation: Spouse Other Information That Helps Us Care for You: No Feels Safe at Home: Yes Safety Concerns: Feels Safe At This Time Smoking Status: Never smoker Second Hand Exposure: No ; Hx Alcohol Use: Yes Alcohol type: wine Hx Substance Use: No Review of Systems Review of Systems: All systems reviewed & are unremarkable except as noted in HPI & below Denies headache or neck pain, no sore throat or runny nose, no cough or shortness of breath, no chest pains. Does have right foot pain on the medial lateral sides is improved from previous. Physical Exam Constitutional: WD/WN, vitals as above + obese Eyes: PERRL, conjunctivae normal, anicteric sclerae ENMT: external ear and nose normal, oropharynx normal Ears: no hearing impairment, no external ear abnormality, no EAC abnormality and no TM abnormality Neck: trachea midline, no thyromegaly Respiratory: normal respiratory effort, lungs clear to auscultation Cardiovascular: Rate/Rhythm: regular rate and regular rhythm Heart Sounds: + murmur (2/6 systolic murmur heard at the apex) Vessels: no JVD Extremities: + edema (Mild trace pitting edema of the distal lower extremities bilaterally) Chest (Breasts): Chest: normal inspection of chest Gastrointestinal (Abdomen): normal bowel sounds, soft, nontender, no hepatosplenomegaly Musculoskeletal: Extremities: extremities normal to inspection; no cyanosis and no clubbing Skin: + rash (Mild chronic venous stasis changes of the legs with mild erythema and scaling with dry skin and scab on left anterior leg) Neurologic: moves all extremities and awake; no focal motor deficits Psychiatric: A+Ox3, euthymic affect Lymphatic: no lymphedema Results & Data Results & Data ([facility]) Vital Signs (Past 12 Hours) Vital Signs Temp Pulse Pulse Resp BP BP Pulse Ox 10/06/19 08:02 71 20 196/81 H 100 10/06/19 07:30 75 18 214/94 H 100 10/06/19 06:14 78 16 205/98 H 100 10/06/19 06:11 87 23 205/98 H 99 10/06/19 05:49 78 19 200/95 H 97 10/06/19 05:48 79 16 194/139 H 98 10/06/19 05:00 85 22 193/102 H 99 10/06/19 04:17 84 14 200/101 H 97 10/06/19 03:20 87 16 171/99 H 88 L 10/06/19 03:18 86 16 171/99 H 86 L 10/06/19 02:49 37.2 C 82 20 168/79 H 90 Laboratory Results 10/06/19 10/06/19 10/06/19 Range/Units 16:37 10:46 06:10 WBC (4.8-10.8) K/uL RBC (4.2-5.4) M/uL Hgb (12.0-16.0) g/dL Hct (37-47) % MCV (80-100) fL MCH (25-34) pg MCHC (32-36) g/dL RDW Std Deviation (36.4-46.3) fL RDW Coeff of Braeden (11.5-14.5) % Plt Count (130-400) K/uL MPV (7.4-10.4) fL Immature Gran % (Auto) % Neut % (Auto) % Lymph % (Auto) % [place] % (Auto) % Eos % (Auto) % Baso % (Auto) % Neut # (Auto) (1.4-6.5) K/uL Lymph # (Auto) (1.2-3.4) K/uL [place] # (Auto) (0.11-0.59) K/uL Eos # (Auto) (0-0.5) K/uL Baso # (Auto) (0-0.2) K/uL Immature Gran # (Auto) (0.00-0.02) K/uL PT (9.0-12.0) Seconds INR (0.9-1.1) Sodium (136-145) mmol/L Potassium (3.5-5.1) mmol/L Chloride (98-107) mmol/L Carbon Dioxide (21-32) mmol/L Anion Gap (3-11) BUN (7-18) mg/dl Creatinine (0.6-1.2) mg/dl Est Cr Clr Drug Dosing Est GFR ( Amer) Est GFR (Non-Af Amer) BUN/Creatinine Ratio (10-20) Glucose (70-99) mg/dl POC Glucose 201 H 256 H (70-99) mg/dl Lactate (0.4-2.0) mmol/L Calcium (8.5-10.1) mg/dl Magnesium (1.8-2.4) mg/dl Total Bilirubin (0.2-1) mg/dl AST (15-37) U/L ALT (12-78) U/L Alkaline Phosphatase (45-117) U/L Total Creatine Kinase (26-192) U/L Troponin I (0-0.045) ng/ml Total Protein (6.4-8.2) gm/dl Albumin (3.4-5.0) gm/dl Globulin (2.5-4.0) gm/dl Albumin/Globulin Ratio (0.9-2) Lipase (73-393) U/L Beta-Hydroxybutyric Acd (0.2-2.81) mg/dl Procalcitonin 0.20 (0-0.5) ng/ml TSH (0.300-4.500) uIu/ml COVID-19 PCR (Negative) 10/06/19 10/06/19 10/06/19 Range/Units 05:45 05:30 03:26 WBC (4.8-10.8) K/uL RBC (4.2-5.4) M/uL Hgb (12.0-16.0) g/dL Hct (37-47) % MCV (80-100) fL MCH (25-34) pg MCHC (32-36) g/dL RDW Std Deviation (36.4-46.3) fL RDW Coeff of Braeden (11.5-14.5) % Plt Count (130-400) K/uL MPV (7.4-10.4) fL Immature Gran % (Auto) % Neut % (Auto) % Lymph % (Auto) % [place] % (Auto) % Eos % (Auto) % Baso % (Auto) % Neut # (Auto) (1.4-6.5) K/uL Lymph # (Auto) (1.2-3.4) K/uL [place] # (Auto) (0.11-0.59) K/uL Eos # (Auto) (0-0.5) K/uL Baso # (Auto) (0-0.2) K/uL Immature Gran # (Auto) (0.00-0.02) K/uL PT (9.0-12.0) Seconds INR (0.9-1.1) Sodium (136-145) mmol/L Potassium (3.5-5.1) mmol/L Chloride (98-107) mmol/L Carbon Dioxide (21-32) mmol/L Anion Gap (3-11) BUN (7-18) mg/dl Creatinine (0.6-1.2) mg/dl Est Cr Clr Drug Dosing Est GFR ( Amer) Est GFR (Non-Af Amer) BUN/Creatinine Ratio (10-20) Glucose (70-99) mg/dl POC Glucose 303 H* (70-99) mg/dl Lactate (0.4-2.0) mmol/L Calcium (8.5-10.1) mg/dl Magnesium (1.8-2.4) mg/dl Total Bilirubin (0.2-1) mg/dl AST (15-37) U/L ALT (12-78) U/L Alkaline Phosphatase (45-117) U/L Total Creatine Kinase 39 (26-192) U/L Troponin I (0-0.045) ng/ml Total Protein (6.4-8.2) gm/dl Albumin (3.4-5.0) gm/dl Globulin (2.5-4.0) gm/dl Albumin/Globulin Ratio (0.9-2) Lipase (73-393) U/L Beta-Hydroxybutyric Acd (0.2-2.81) mg/dl Procalcitonin (0-0.5) ng/ml TSH (0.300-4.500) uIu/ml COVID-19 PCR NEGATIVE (Negative) 10/06/19 10/06/19 10/06/19 Range/Units 03:26 03:26 03:26 WBC (4.8-10.8) K/uL RBC (4.2-5.4) M/uL Hgb (12.0-16.0) g/dL Hct (37-47) % MCV (80-100) fL MCH (25-34) pg MCHC (32-36) g/dL RDW Std Deviation (36.4-46.3) fL RDW Coeff of Braeden (11.5-14.5) % Plt Count (130-400) K/uL MPV (7.4-10.4) fL Immature Gran % (Auto) % Neut % (Auto) % Lymph % (Auto) % [place] % (Auto) % Eos % (Auto) % Baso % (Auto) % Neut # (Auto) (1.4-6.5) K/uL Lymph # (Auto) (1.2-3.4) K/uL [place] # (Auto) (0.11-0.59) K/uL Eos # (Auto) (0-0.5) K/uL Baso # (Auto) (0-0.2) K/uL Immature Gran # (Auto) (0.00-0.02) K/uL PT 11.1 (9.0-12.0) Seconds INR 1.1 (0.9-1.1) Sodium 139 (136-145) mmol/L Potassium 4.5 (3.5-5.1) mmol/L Chloride 107 (98-107) mmol/L Carbon Dioxide 25 (21-32) mmol/L Anion Gap 7.0 (3-11) BUN 46 H (7-18) mg/dl Creatinine 3.00 H (0.6-1.2) mg/dl Est Cr Clr Drug Dosing Not Reportable Est GFR ( Amer) 18.3 Est GFR (Non-Af Amer) 15.8 BUN/Creatinine Ratio 15.4 (10-20) Glucose 313 H* (70-99) mg/dl POC Glucose (70-99) mg/dl Lactate 1.6 (0.4-2.0) mmol/L Calcium 9.5 (8.5-10.1) mg/dl Magnesium 2.3 (1.8-2.4) mg/dl Total Bilirubin 0.2 (0.2-1) mg/dl AST 68 H (15-37) U/L ALT 64 (12-78) U/L Alkaline Phosphatase 101 (45-117) U/L Total Creatine Kinase (26-192) U/L Troponin I 0.023 (0-0.045) ng/ml Total Protein 7.2 (6.4-8.2) gm/dl Albumin 2.4 L (3.4-5.0) gm/dl Globulin 4.8 H (2.5-4.0) gm/dl Albumin/Globulin Ratio 0.5 L (0.9-2) Lipase 18 L (73-393) U/L Beta-Hydroxybutyric Acd 6.11 H (0.2-2.81) mg/dl Procalcitonin (0-0.5) ng/ml TSH 3.180 (0.300-4.500) uIu/ml COVID-19 PCR (Negative) 10/06/19 Range/Units 03:26 WBC 10.76 (4.8-10.8) K/uL RBC 3.21 L (4.2-5.4) M/uL Hgb 8.8 L (12.0-16.0) g/dL Hct 27.4 L (37-47) % MCV 85.4 (80-100) fL MCH 27.4 (25-34) pg MCHC 32.1 (32-36) g/dL RDW Std Deviation 46.1 (36.4-46.3) fL RDW Coeff of Braeden 14.7 H (11.5-14.5) % Plt Count 233 (130-400) K/uL MPV 9.5 (7.4-10.4) fL Immature Gran % (Auto) 0.6 % Neut % (Auto) 84.2 % Lymph % (Auto) 9.9 % [place]ack[place] % (Auto) 4.9 % Eos % (Auto) 0.2 % Baso % (Auto) 0.2 % Neut # (Auto) 9.06 H (1.4-6.5) K/uL Lymph # (Auto) 1.07 L (1.2-3.4) K/uL [place] # (Auto) 0.53 (0.11-0.59) K/uL Eos # (Auto) 0.02 (0-0.5) K/uL Baso # (Auto) 0.02 (0-0.2) K/uL Immature Gran # (Auto) 0.06 H (0.00-0.02) K/uL PT (9.0-12.0) Seconds INR (0.9-1.1) Sodium (136-145) mmol/L Potassium (3.5-5.1) mmol/L Chloride (98-107) mmol/L Carbon Dioxide (21-32) mmol/L Anion Gap (3-11) BUN (7-18) mg/dl Creatinine (0.6-1.2) mg/dl Est Cr Clr Drug Dosing Est GFR ( Amer) Est GFR (Non-Af Amer) BUN/Creatinine Ratio (10-20) Glucose (70-99) mg/dl POC Glucose (70-99) mg/dl Lactate (0.4-2.0) mmol/L Calcium (8.5-10.1) mg/dl Magnesium (1.8-2.4) mg/dl Total Bilirubin (0.2-1) mg/dl AST (15-37) U/L ALT (12-78) U/L Alkaline Phosphatase (45-117) U/L Total Creatine Kinase (26-192) U/L Troponin I (0-0.045) ng/ml Total Protein (6.4-8.2) gm/dl Albumin (3.4-5.0) gm/dl Globulin (2.5-4.0) gm/dl Albumin/Globulin Ratio (0.9-2) Lipase (73-393) U/L Beta-Hydroxybutyric Acd (0.2-2.81) mg/dl Procalcitonin (0-0.5) ng/ml TSH (0.300-4.500) uIu/ml COVID-19 PCR (Negative) Diagnostic Findings XR abdomen 2V w PA chest CLINICAL HISTORY: n/v/d COMPARISON STUDY: No previous studies for comparison. FINDINGS: The soft tissues, psoas shadows, renal outlines and intestinal gas pattern appear normal. There is no evidence for bowel obstruction. There is no evidence for free intraperitoneal air. No abnormal abdominal calcifications are seen. A frontal view of the chest was performed and is unremarkable. IMPRESSION: Normal study. CT abd pelvis wo con CT DOSE: 1108.51 mGycm HISTORY: n/v/d TECHNIQUE: Multiaxial CT images of the abdomen and pelvis were performed without contrast. A dose lowering technique was utilized adhering to the principles of ALARA. COMPARISON STUDY: None. FINDINGS: Trace pleural fluid both lung bases. Liver spleen and pancreas are unremarkable. Gallstones are present within the gallbladder lumen. Kidneys negative for hydronephrosis. Nonobstructive bowel pattern. IMPRESSION: 1. Small bilateral pleural effusions. 2. Gallstones. Code Status & VTE Plan Code Status Full code VTE Prophylaxis Plan VTE Prophylaxis will be ordered: Yes PG Care Time/CCT Total # of Minutes Spent Total Time Spent with Patient: Total time spent is greater than 50% in coordination of care (as documented) at patient's floor/unit and/or counseling patient: Coding Level of Care Code 95044 Initial Inpt Care Lvl 3 Diagnoses Nausea vomiting and diarrhea R11.2; R19.7 Cholelithiasis K80.20 Biliary obstruction: without biliary obstruction Cholecystitis presence: without cholecystitis Cholelithiasis location: gallbladder TANYA (acute kidney injury) N17.9 Acute dehydration E86.0 Anemia D64.9 Anemia type: unspecified type Nonischemic cardiomyopathy I42.8 CKD (chronic kidney disease), stage III N18.3 Diabetes E11.9; Z79.4 Diabetes mellitus type: type 2 Diabetes mellitus exterminator helper insulin use: with exterminator helper use Diabetes mellitus complication status: without complication Hypertension I10 Hypertension type: essential hypertension Diastolic CHF I50.30 CAD (coronary artery disease) I25.10 Acute respiratory failure with hypoxia J96.01 Plantar fasciitis M72.2 DVT prophylaxis Z29.9 (1) Anemia Anemia type: unspecified type Qualified Code(s): D64.9 - Anemia, unspecified (2) Cholelithiasis Biliary obstruction: without biliary obstruction Cholecystitis presence: without cholecystitis Cholelithiasis location: gallbladder Qualified Code(s): K80.20 - Calculus of gallbladder without cholecystitis without obstruction (3) Diabetes Diabetes mellitus type: type 2 Diabetes mellitus exterminator helper insulin use: with [facility] use Diabetes mellitus complication status: without complication Qualified Code(s): E11.9 - Type 2 diabetes mellitus without complications; 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
[2019-10-06] MEDS ORDERED: DEXTROSE 50% 50 ML SYRINGE IV PRN (10:18)
[2019-10-06] MEDS ORDERED: ACETAMINOPHEN 325 MG TAB PO PRN (10:18)
[2019-10-06] MEDS ORDERED: GLUCAGON FOR INJ 1 MG VIAL SQ PRN (10:18)
[2019-10-06] MEDS ORDERED: CARBOHYDRATES FOR HYPOGLYCEMIA PO PRN (10:18)
[2019-10-06] MEDS ORDERED: GLUCOSE 10 TABS/TUBE PO PRN (10:18)
[2019-10-06] MEDS ORDERED: CLOPIDOGREL BISULFATE 75 MG TAB PO SCH (10:18)
[2019-10-06] MEDS ORDERED: MELATONIN 3 MG TAB PO PRN (10:18)
[2019-10-06] MEDS ORDERED: HEPARIN SOD 5,000 UNIT/0.5 ML VIAL SQ SCH (10:18)
[2019-10-06] MEDS ORDERED: GLUCOSE 40% GEL 15 GM TUBE PO PRN (10:18)
[2019-10-06] MEDS ORDERED: PHARMACY GLYCEMIC MGMT CONSULT PRN (10:48)
[2019-10-06] MEDS ORDERED: INSULIN GLARGINE SOLOSTAR 100 UNITS/ML 3 ML PEN SQ ONE (11:00)
--- NOTE | 2019-10-06 11:06 | Pharmacy Report ---
Pharmacy Glycemic Short Note 2 - Date of Service October 06, 2019 - Glycemic Short BSG Results (Last 24 hours): 10/06/19 10/06/19 10/06/19 03:26 05:45 10:46 Glucose 313 H* POC Glucose 303 H* 256 H OUTPATIENT ANTIDIABETIC REGIMEN: * Insulin glargine 10-20 units SQ BID * Aspart 1-15 units TIDM with meals * A1c = 8.2% (01/21/19) ASSESSMENT: * Delfina is a 64 yo T2DM female admitted with nausea, vomiting, and hyperglycemia. * BSG of 303 mg/dL in the ED. BSG of 256 mg/dL upon arrival to the floor. No insulin administered while in the ED. * Initiate weight based basal + bolus insulin. Will start conservative with basal insulin due to N/V and NPO status. PLAN FOR INPATIENT GLYCEMIC CONTROL * Basal insulin * Lantus 15 units SQ x 1, then per scale BID: * 0 units for BSG < 140 mg/dL * 10 units for BSG 140-180 mg/dL * 20 units for BSG > 180 mg/dL * Bolus insulin * NovoLog per scale ACHS or Q6hrs while NPO * Goal Range: Low 100 mg/dL - High 140 mg/dL * Correction Factor: 25 mg/dL/unit * Nutritional / Prandial insulin per carb ratio of 1 unit per 8 grams CHO consumed PLAN FOR DISCHARGE: * tbd
[2019-10-06] MEDS: PANTOprazole 40 MG TAB PO SCH (11:11)
[2019-10-06] MEDS: carvediloL 25 MG TAB PO SCH ×2 (11:40→21:47)
[2019-10-06] MEDS: INSULIN ASPART 100 UNITS/ML 3 ML PEN SC SCH ×2 (11:40→17:29)
[2019-10-06] MEDS: HydrALAZINE TAB 50 MG TAB PO SCH ×2 (11:40→21:46)
[2019-10-06] MEDS ORDERED: MoRPHine SULFATE 2 MG/ML CARP ONE (14:59)
[2019-10-06] MEDS ORDERED: Nursing to Pharmacy Communication SCH (15:00)
[2019-10-06] MEDS ORDERED: MoRPHine SULFATE 2 MG/ML CARP IV ONE (15:15)
--- NOTE | 2019-10-06 16:13 | Nuclear Medicine Report ---
NUCLEAR MEDICINE HEPATOBILIARY SCAN CLINICAL HISTORY: Nausea, vomiting. Elevated liver function tests. Cholelithiasis. COMPARISON: CT of the abdomen and pelvis October 06, 2019. TECHNIQUE: 5.5 mCi of technetium 99m Choletec IV was injected at 2:00 PM on October 06, 2019. Immediate ly following injection, imaging of the abdomen was carried out for 60 minutes in the anterior project ion. Gallbladder activity was not identified at 60 minutes in therefore 2 mg of morphine was administ ered IV as per protocol. Imaging was carried out for an additional 30 minutes. FINDINGS: Hepatic uptake of radiotracer is prompt and homogeneous. Activity is identified within the common bile duct and small bowel prior to 25 minutes. No gallbladder activity is identified at 60 mi nutes. Therefore, morphine was administered. No gallbladder activity was identified 30 minutes follow ing morphine administration. IMPRESSION: No gallbladder activity identified following morphine administration. These findings sug gest acute cholecystitis. ACT 112: Negative or not required by law. Electronically signed by: Jonathan An M.D. 10/06/2019 4:12 PM
--- NOTE | 2019-10-06 16:16 | Electrocardiogram Report ---
Test Reason : Blood Pressure : / mmHG Vent. Rate : 087 BPM Atrial Rate : 087 BPM P-R Int : 174 ms QRS Dur : 082 ms QT Int : 394 ms P-R-T Axes : 052 018 -30 degrees QTc Int : 474 ms Poor data quality, interpretation may be adversely affected Normal sinus rhythm Abnormal ECG When compared with ECG of 20-JAN-2019 14:37, No significant change was found Confirmed by Javier Arroyo ([id number]) on 10/06/2019 4:16:14 PM Referred By: REFERRED SELF Confirmed By:Javier Arroyo
[2019-10-06] MEDS: CIPROFLOXACIN / D5W 400 MG/200 ML BAG IV SCH (17:27)
[2019-10-06] MEDS ORDERED: LORazepam 0.5 MG/1 ML VIAL IV PRN (17:33)
--- NOTE | 2019-10-06 17:36 | Surgery Consultation ---
Date of Consultation October 06, 2019 Assessment & Plan (1) Acute cholecystitis: IV abx IV fluids NPO past MN to OR in AM for lap odalis Present on Admission?: Yes History of Present Illness Attending Physician: Mariaa Alarcon MD History of Present Illness This patient is a 64-year-old female with a history of CKD stage III, HTN, nonobstructive CAD, chronic diastolic CHF, hyperlipidemia, resolved nonischemic cardiomyopathy, DM 2, primary hyperparathyroidism with hypercalcemia, and anemia of chronic disease, who presented to the ER with 5 days of nausea/vomiting and diarrhea. She denied any pain. She started with some chills on Wednesday and then had 2 days of profuse watery nonbloody diarrhea. She then had nausea and vomiting for the next 2 days. Chemistry showed acute kidney injury in the setting of CKD, her anemia was slightly worse than usual at 8.8 for hemoglobin, and her AST was mildly elevated at 68. A lactate was normal. Her blood sugar was elevated in the 300s. A CT scan shows gallstones and HIDA scan shows non- filling of gallbladder. Allergies Allergy/AdvReac Type Severity Reaction Status Date / Time dulaglutide [From Trulicity] Allergy Intermediate Hives Verified 10/05/19 08:05 insulin lispro Allergy Visual Verified 10/05/19 08:05 [From Humalog U-100 Insulin] Disturbance erythromycin base AdvReac Intermediate Vomiting Verified 10/05/19 08:05 atorvastatin AdvReac Joint Pain Verified 10/05/19 08:05 Home Medications Home Medications Medication Instructions Recorded Confirmed Type melatonin 3 mg tablet 3 mg PO HS PRN 02/01/19 10/06/19 History hydralazine 50 mg tablet 50 mg PO BID #180 tab 02/20/19 10/06/19 Rx insulin glargine 100 unit/mL (3 10 - 20 unit SQ BID ml 05/15/19 10/06/19 History mL) subcutaneous pen clopidogrel [Plavix] 75 mg PO QAM 05/16/19 10/06/19 History fluticasone propionate [Flonase 2 sprays INTNAS DAILY PRN 05/16/19 10/06/19 History Allergy Relief] pantoprazole 40 mg PO QAM 05/16/19 10/06/19 History BD Ultra-Fine Gwen Pen Needle 32 #500 ea NS 05/30/19 10/05/19 Rx gauge x 5/32" insulin aspart U-100 100 unit/mL 1 - 15 unit SC TIDM PRN #15 ml 07/17/19 10/06/19 Rx (3 mL) subcutaneous pen carvedilol 25 mg tablet 50 mg PO BID #360 tab 08/16/19 10/06/19 Rx metolazone 5 mg tablet 5 mg PO DAILY PRN #20 tab 08/18/19 10/06/19 Rx furosemide 40 mg tablet 40 mg PO BID #180 tab 09/12/19 10/06/19 Rx FreeStyle Shasta 14 Day Richton #7 ea NS 09/21/19 10/05/19 Rx diphenhydramine HCl [Benadryl 25 mg PO UD 10/05/19 10/06/19 History Allergy] guaifenesin [Mucinex] 600 mg PO UD 10/05/19 10/06/19 History loperamide [Imodium A-D] 2 mg PO Q6H PRN 10/05/19 10/06/19 History potassium chloride 20 meq PO QAM 10/05/19 10/06/19 History sennosides 8.6 mg PO DAILY PRN 10/05/19 10/06/19 History Patient History Medical History Anemia (Chronic) CHF (congestive heart failure) CKD (chronic kidney disease), stage III (Chronic) Diabetes (Chronic) Diabetes mellitus, type 2 Eye abnormality ANUERYSSM BEHIND BOTH EYES - HAS SEEN RETINOLOGIST GERD (gastroesophageal reflux disease) History of CVA (cerebrovascular accident) (Chronic) Hx of Lyme disease Hyperlipidemia (Chronic) Hypertension (Chronic) Hypertension Mitral regurgitation (Chronic) Morbid obesity with BMI of 40.0-44.9, adult (Chronic) Nonischemic cardiomyopathy (Chronic) Surgical History Hx of colonoscopy Hx of eye surgery Hx of left cataract extraction Hx of tonsillectomy Hx of tubal ligation S/P cardiac catheterization 10 YR AGO [facility] Family History Father Family history of diabetes mellitus Aunt Family history of diabetes mellitus Uncle Family history of diabetes mellitus Brother Family history of diabetes mellitus Brother Family history of diabetes mellitus Other Alzheimer disease Coronary heart disease Social History Preferred Language: Syriac Communication Ability: Effective Air Brakes Inspector Required: No Beliefs That Will Affect Care: None Current Living Situation: Spouse Other Information That Helps Us Care for You: No Feels Safe at Home: Yes Safety Concerns: Feels Safe At This Time Smoking Status: Never smoker Second Hand Exposure: No ; Hx Alcohol Use: Yes Alcohol type: wine Hx Substance Use: No Review of Systems Constitutional: + fever and + chills; no anorexia Eyes: no problem reported Ear, Nose, Mouth, Throat: no problem reported Respiratory: + dyspnea; no cough Cardiovascular: no chest pain Gastrointestinal: + nausea, + vomiting, + cramping and + diarrhea/loose stools; no abdominal pain Genitourinary: no dysuria Musculoskeletal: no back pain Integumentary: no rash, no change in skin color and no problem reported Neurologic: no problem reported Psychiatric: no problem reported Physical Exam Constitutional: well developed and well nourished Eyes: PERRL, conjunctivae normal, anicteric sclerae Neck: trachea midline Respiratory: normal respiratory effort, lungs clear to auscultation no respiratory distress Cardiovascular: Rate/Rhythm: regular rate and regular rhythm Gastrointestinal (Abdomen): Inspection/Auscultation: abdomen normal to inspection and + abdomen distended Percussion/Palpation: abdomen nontender, no guarding and no hernia Musculoskeletal: Head/Neck/Chest: normocephalic Skin: no jaundice Psychiatric: Orientation: alert and oriented x 3 Results & Data Vital Signs (Past 12 Hours) Vital Signs Temp Pulse Pulse Resp BP BP Pulse Ox 10/06/19 11:48 36.4 C L 67 18 178/83 H 97 10/06/19 09:23 36.5 C 68 20 199/98 H 100 10/06/19 08:02 71 20 196/81 H 100 10/06/19 07:30 75 18 214/94 H 100 10/06/19 06:14 78 16 205/98 H 100 10/06/19 06:11 87 23 205/98 H 99 10/06/19 05:49 78 19 200/95 H 97 10/06/19 05:48 79 16 194/139 H 98 Diagnostic Findings NUCLEAR MEDICINE HEPATOBILIARY SCAN CLINICAL HISTORY: Nausea, vomiting. Elevated liver function tests. Cholelithiasis. COMPARISON: CT of the abdomen and pelvis October 06, 2019. TECHNIQUE: 5.5 mCi of technetium 99m Choletec IV was injected at 2:00 PM on October 06, 2019. Immediately following injection, imaging of the abdomen was carried out for 60 minutes in the anterior projection. Gallbladder activity was not identified at 60 minutes in therefore 2 mg of morphine was administered IV as per protocol. Imaging was carried out for an additional 30 minutes. FINDINGS: Hepatic uptake of radiotracer is prompt and homogeneous. Activity is identified within the common bile duct and small bowel prior to 25 minutes. No gallbladder activity is identified at 60 minutes. Therefore, morphine was administered. No gallbladder activity was identified 30 minutes following morphine administration. IMPRESSION: No gallbladder activity identified following morphine administration. These findings suggest acute cholecystitis. CT abd pelvis wo con CT DOSE: 1108.51 mGycm HISTORY: n/v/d TECHNIQUE: Multiaxial CT images of the abdomen and pelvis were performed without contrast. A dose lowering technique was utilized adhering to the principles of ALARA. COMPARISON STUDY: None. FINDINGS: Trace pleural fluid both lung bases. Liver spleen and pancreas are unremarkable. Gallstones are present within the gallbladder lumen. Kidneys negative for hydronephrosis. Nonobstructive bowel pattern. IMPRESSION: 1. Small bilateral pleural effusions. 2. Gallstones.
[2019-10-06] MEDS: metroNIDAZOLE 500 MG/100 ML BAG IV SCH (17:43)
[2019-10-06] MEDS ORDERED: FLUMAZENIL 0.1 MG/1 ML 10 ML VIAL IV STA (19:00)
--- NOTE | 2019-10-06 19:07 | Anesthesiology Consultation ---
Date of Service October 06, 2019 Assessment & Plan Chart Review Chart Review: Acceptable Risk for Surgery Consults Requested none History Surgery Operation Date: 10/07/19 07:30 Proposed Procedures p Laparoscopic Cholecystectomy - London Tate MD Height/Weight Height: 5 ft 7 in Weight: 112 kg Allergies Allergy/AdvReac Type Severity Reaction Status Date / Time dulaglutide [From Trulicity] Allergy Intermediate Hives Verified 10/05/19 08:05 insulin lispro Allergy Visual Verified 10/05/19 08:05 [From Humalog U-100 Insulin] Disturbance erythromycin base AdvReac Intermediate Vomiting Verified 10/05/19 08:05 atorvastatin AdvReac Joint Pain Verified 10/05/19 08:05 Medications Home Medications Medication Instructions Recorded Confirmed Last Taken melatonin 3 mg tablet 3 mg PO HS PRN 02/01/19 10/06/19 05/16/19 hydralazine 50 mg tablet 50 mg PO BID #180 tab 02/20/19 10/06/19 10/04/19 08:00 insulin glargine 100 unit/mL (3 10 - 20 unit SQ BID ml 05/15/19 10/06/19 10/04/19 08:00 mL) subcutaneous pen clopidogrel [Plavix] 75 mg PO QAM 05/16/19 10/06/19 10/04/19 08:00 fluticasone propionate [Flonase 2 sprays INTNAS DAILY PRN 05/16/19 10/06/19 05/30/19 Allergy Relief] pantoprazole 40 mg PO QAM 05/16/19 10/06/19 10/04/19 08:00 BD Ultra-Fine Gwen Pen Needle 32 #500 ea NS 05/30/19 10/05/19 10/04/19 08:00 gauge x 5/32" insulin aspart U-100 100 unit/mL 1 - 15 unit SC TIDM PRN #15 ml 07/17/19 0 10/06/19 Unknown (3 mL) subcutaneous pen carvedilol 25 mg tablet 50 mg PO BID #360 tab 08/16/19 10/06/19 10/04/19 08:00 metolazone 5 mg tablet 5 mg PO DAILY PRN #20 tab 08/18/19 10/06/19 Unknown furosemide 40 mg tablet 40 mg PO BID #180 tab 09/12/19 10/06/19 10/04/19 08:00 FreeStyle Shasta 14 Day Earle #7 ea NS 09/21/19 10/05/19 10/04/19 08:00 diphenhydramine HCl [Benadryl 25 mg PO UD 10/05/19 10/06/19 10/04/19 18:00 Allergy] 25 mg guaifenesin [Mucinex] 600 mg PO UD 10/05/19 10/06/19 10/05/19 02:00 600 mg loperamide [Imodium A-D] 2 mg PO Q6H PRN 10/05/19 10/06/19 10/04/19 15:00 6 mg potassium chloride 20 meq PO QAM 10/05/19 10/06/19 10/04/19 08:00 sennosides 8.6 mg PO DAILY PRN 10/05/19 10/06/19 Unknown Active Medications Generic Name Dose Route Start Last Admin Trade Name Freq PRN Reason Stop Dose Admin Carvedilol 50 mg 10/06/19 09:00 10/06/19 11:40 Coreg PO 11/05/19 08:59 50 mg BID JACE Administration Clopidogrel Bisulfate 75 mg 10/06/19 10:18 10/06/19 11:11 Plavix PO 11/05/19 10:17 75 mg QAM JACE Administration Hydralazine HCl 50 mg 10/06/19 09:00 10/06/19 11:40 Apresoline PO 11/05/19 08:59 50 mg BID JACE Administration Sodium Chloride 1,000 mls @ 100 mls/hr 10/06/19 10:18 10/06/19 16:28 Nss 1000ml IV 10/07/19 06:17 100 mls/hr .Q10H JACE Infusion Ciprofloxacin 400 mg in 200 mls @ 100 mls/hr 10/06/19 17:00 10/06/19 17:27 Cipro IV 10/16/19 16:59 100 mls/hr Q24H JACE Administration Protocol Metronidazole 500 mg in 100 mls @ 100 mls/hr 10/06/19 17:00 10/06/19 18:39 Flagyl IV 10/16/19 16:59 Infused Q8H JACE Infusion Lorazepam 0.5 mg in 1 mls @ 1 mls/min 10/06/19 17:33 10/06/19 18:13 Ativan IV 11/05/19 17:32 1 mls/min Q4H PRN Administration Anxiety Insulin Aspart 0 units 10/06/19 11:00 10/06/19 17:29 Novolog Flexpen SC 11/05/19 10:59 3 units Q6 JACE Administration Pantoprazole Sodium 40 mg 10/06/19 10:18 10/06/19 11:11 Protonix PO 11/05/19 10:17 40 mg QAM JACE Administration Past Medical History Medical History Anemia (Chronic) CHF (congestive heart failure) CKD (chronic kidney disease), stage III (Chronic) Diabetes (Chronic) Diabetes mellitus, type 2 Eye abnormality ANUERYSSM BEHIND BOTH EYES - HAS SEEN RETINOLOGIST GERD (gastroesophageal reflux disease) History of CVA (cerebrovascular accident) (Chronic) Hx of Lyme disease Hyperlipidemia (Chronic) Hypertension (Chronic) Hypertension Mitral regurgitation (Chronic) Morbid obesity with BMI of 40.0-44.9, adult (Chronic) Nonischemic cardiomyopathy (Chronic) Past Family History Family History Father Family history of diabetes mellitus Aunt Family history of diabetes mellitus Uncle Family history of diabetes mellitus Brother Family history of diabetes mellitus Brother Family history of diabetes mellitus Other Alzheimer disease Coronary heart disease Past Surgical History Surgical History Hx of colonoscopy Hx of eye surgery Hx of left cataract extraction Hx of tonsillectomy Hx of tubal ligation S/P cardiac catheterization 10 YR AGO [facility] Social History Smoking Status: Never smoker Hx Alcohol Use: Yes Alcohol type: wine alcohol intake frequency: holidays/special occasions only Hx Substance Use: No Physical Exam Vital Signs Last Vital Signs Temp 36.4 C L 10/06/19 11:48 Pulse 65 10/06/19 19:06 Resp 16 10/06/19 19:06 BP 103/51 L 10/06/19 19:06 Pulse Ox 95 10/06/19 19:06 Testing Laboratory Results 10/06/19 03:26 10/06/19 03:26 PT 11.1 Seconds (9.0-12.0) 10/06/19 03:26 INR 1.1 (0.9-1.1) 10/06/19 03:26 10/06/19 10/06/19 16:37 10:46 POC Glucose 201 H 256 H
[2019-10-06] MEDS: INSULIN GLARGINE SOLOSTAR 100 UNITS/ML 3 ML PEN SQ SCH (21:48)
[2019-10-07] MEDS: INSULIN ASPART 100 UNITS/ML 3 ML PEN SC SCH ×5 (00:48→21:20)
[2019-10-07] MEDS: SODIUM CHLORIDE 0.9% 1000ML 1,000 ML IV SCH (01:43)
[2019-10-07] MEDS: metroNIDAZOLE 500 MG/100 ML BAG IV SCH ×3 (01:50→17:01)
[2019-10-07] MEDS: ONDANSETRON INJ 2 MG/ML 2 ML VIAL IV PRN (04:19)
[2019-10-07 06:25] LABS: Appearance Urine Turbid (Clear); Bacteria Urine Automated 4+ (Negative); Bilirubin Urine Negative (Negative); Blood Urine Negative (Negative); Color Urine Dark Yellow; Epithelial Cell Urine Auto >30 /lpf (0-5); Glucose Urine UA 1+ (Negative); Ketones Urine Negative (Negative); Leukocyte Esterase Urine 2+ (Negative); Nitrite Urine Negative (Negative); Protein Urine 4+ (Negative); Specific Gravity Urine 1.025 (1.000-1.030); Urobilinogen Urine Negative (Negative); WBC Urine Automated >30 /hpf (0-5)
[2019-10-07 06:39] LABS: RBC Urine Automated 0-4 /hpf (0-4)
[2019-10-07 07:12] LABS: Basophils # (auto) 0.04 K/uL (0-0.2); Basophils % (auto) 0.4 %; Eosinophils # (auto) 0.21 K/uL (0-0.5); Hematocrit (blood only) 26.1 % (37-47); Hemoglobin 8.1 g/dL (12.0-16.0); Immature Granulocytes # (auto) 0.04 K/uL (0.00-0.02); Immature Granulocytes % (auto) 0.4 %; Lymphocytes # (auto) 1.19 K/uL (1.2-3.4); Lymphocytes % (auto) 11.5 %; Mean Corpuscular Hemoglobin 27.4 pg (25-34); Mean Corpuscular Volume 88.2 fL (80-100); Mean Platelet Volume 9.9 fL (7.4-10.4); Monocytes # (auto) 0.74 K/uL (0.11-0.59); Monocytes % (auto) 7.1 %; Neutrophils # (auto) 8.15 K/uL (1.4-6.5); Neutrophils % (auto) 78.6 %; Platelet Count 260 K/uL (130-400); RDW Coefficient of Variation 14.8 % (11.5-14.5); RDW Standard Deviation 47.9 fL (36.4-46.3); Red Blood Count 2.96 M/uL (4.2-5.4); White Blood Count 10.37 K/uL (4.8-10.8)
[2019-10-07 07:19] LABS: Estimated Average Glucose 189 mg/dl; Hemoglobin A1C 8.2 % (4.5-5.6)
--- NOTE | 2019-10-07 07:41 | History & Physical Bridge Note ---
Date of Service October 07, 2019 History & Physical Bridge Note I have examined the patient, reviewed the History & Physical and in the interval since the performance of the History & Physical I have noted the following changes of clinical significance: no changes noted
[2019-10-07 07:42] LABS: Alanine Aminotransferase 68 U/L (12-78); Albumin Level 2.2 gm/dl (3.4-5.0); Aspartate Aminotransferase 33 U/L (15-37); BUN Creatinine Ratio 16.4 (10-20); Bilirubin Direct < 0.1 mg/dl (0-0.2); Blood Urea Nitrogen 51 mg/dl (7-18); Calcium 9.6 mg/dl (8.5-10.1); Carbon Dioxide 25 mmol/L (21-32); Chloride 113 mmol/L (98-107); Creatinine Clr Calc Pharmacy 23.4 ml/min; Est GFR (African American) 17.3; Est GFR (Non-African American) 14.9; Glucose 183 mg/dl (70-99); Magnesium 2.3 mg/dl (1.8-2.4); Potassium 4.1 mmol/L (3.5-5.1); Sodium 141 mmol/L (136-145)
[2019-10-07 07:47] LABS: Alkaline Phosphatase 80 U/L (45-117); Bilirubin,Total 0.2 mg/dl (0.2-1); Ferritin 1757.9 ng/ml (8-388); Iron 41 mcg/dl (35-150); Total Iron Binding Capacity 185 mcg/dl (250-450); Total Protein 6.5 gm/dl (6.4-8.2); Transferrin 137 mg/dl (200-360); Transferrin Percent Saturation 21 % (15-50)
[2019-10-07] MEDS ORDERED: EPINEPHrine INJ 1 MG/ML AMP ONE (07:49)
[2019-10-07] MEDS ORDERED: BUPIVACAINE 0.5 % 5 MG/1 ML MPF 30ML VIAL ONE (07:49)
[2019-10-07] MEDS: CEFAZOLIN 2000MG 2,000 MG/15 ML SYR IV SCH (08:17)
[2019-10-07] MEDS ORDERED: fentaNYL citrate 100 MCG/2 ML VIAL ONE (08:20)
[2019-10-07] MEDS ORDERED: LIDOCAINE HCL 2% 2 ML VIAL/AMP(20MG/ML) INFIL ONE (08:53)
[2019-10-07] MEDS ORDERED: PROPOFOL IV EMULSION 10 MG/ML 20 ML VIAL IV ONE (08:53)
[2019-10-07] MEDS ORDERED: SUCCINYLCHOLINE CHLORIDE 20 MG/ML 10 ML VIAL IV ONE (08:53)
[2019-10-07 08:58] LABS: Folate (Folic Acid) 13.76 ng/ml (>5.38)
[2019-10-07] MEDS ORDERED: fentaNYL citrate 100 MCG/2 ML VIAL IV PRN (09:12)
[2019-10-07] MEDS ORDERED: ePHEDrine sulfate 50 MG/ML AMP IV PRN (09:12)
[2019-10-07] MEDS ORDERED: ONDANSETRON INJ 2 MG/ML 2 ML VIAL IV PRN (09:12)
[2019-10-07] MEDS ORDERED: ATROPINE SULFATE 0.1 MG/ML 10ML SYR IV PRN (09:12)
[2019-10-07] MEDS ORDERED: ONDANSETRON INJ 2 MG/ML 2 ML VIAL ONE (09:23)
[2019-10-07] MEDS ORDERED: ROCURONIUM BROMIDE 10 MG/ML 5 ML VIAL IV ONE (09:33)
--- NOTE | 2019-10-07 09:42 | Post Operative Brief Note ---
Immediate Post Op Note v1 Date of Surgery October 07, 2019 Pre & Post Diagnosis Operation Date: 10/07/19 07:30 Pre-Op Diagnosis: Acute cholecystitis Post-Op Diagnosis: Acute cholecystitis I identified the patient and participated in the time-out.: Yes Procedure Operation Date: 10/07/19 07:30 Actual Procedures p Laparoscopic Cholecystectomy(Not Applicable) - London Tate MD Surgeon London Tate MD Industrial Maintenance Mechanic none Estimated Blood Loss 30 Findings Consistent with Post-Op Diagnosis
[2019-10-07] MEDS ORDERED: MoRPHine SULFATE 10 MG/ML CARP/VIAL IV PRN (10:46)
[2019-10-07] MEDS ORDERED: OXYCODONE/ACETAMINOPHEN 5mg/325mg TAB PO PRN ×2 (10:46)
[2019-10-07] MEDS ORDERED: MoRPHine SULFATE 4 MG/ML 1 ML CARP\\VIAL IV PRN (10:46)
[2019-10-07] MEDS: carvediloL 25 MG TAB PO SCH ×2 (10:51→21:18)
[2019-10-07] MEDS: HydrALAZINE TAB 50 MG TAB PO SCH ×2 (10:51→21:18)
[2019-10-07] MEDS: PANTOprazole 40 MG TAB PO SCH (10:52)
[2019-10-07] MEDS: INSULIN GLARGINE SOLOSTAR 100 UNITS/ML 3 ML PEN SQ SCH ×2 (10:52→21:19)
--- NOTE | 2019-10-07 11:39 | Anesthesiology Progress Note ---
Date of Service October 07, 2019 Anesthesia Post Procedure Vital Signs Vital Signs: Temp Pulse Pulse Pulse Resp BP BP 10/07/19 10:46 98.6 F 71 16 190/85 H 10/07/19 10:20 98.4 F 71 14 197/74 H 10/07/19 10:10 70 14 168/75 H 10/07/19 10:00 70 15 174/69 H 10/07/19 09:50 98.4 F 70 16 154/63 H 10/07/19 03:38 98.1 F 68 19 125/73 10/07/19 00:07 97.7 F 66 20 157/62 H 10/06/19 19:06 65 16 103/51 L 10/06/19 18:43 61 10/06/19 11:48 97.5 F L 67 18 178/83 H Pulse Ox 10/07/19 10:46 99 10/07/19 10:20 99 10/07/19 10:10 99 10/07/19 10:00 99 10/07/19 09:50 95 10/07/19 03:38 93 10/07/19 00:07 98 10/06/19 19:06 95 10/06/19 18:43 10/06/19 11:48 97 Pain Intensity Abdomen: Pain Intensity: 2 Transfer of Care Handoff Completed per policy Notes Mental Status: alert / awake / arousable and participated in evaluation Patient Amnestic to Procedure: Yes Nausea / Vomiting: adequately controlled Pain: adequately controlled Airway Patency, RR, SpO2: stable & adequate BP & HR: stable & adequate Hydration State: stable & adequate Anesthetic Complications: no major complications apparent and Pt Satisfied with anesthetic care
--- NOTE | 2019-10-07 12:14 | Operative Report (OR) ---
DATE OF OPERATION: 10/07/2019 PREOPERATIVE DIAGNOSIS: Acute cholecystitis. POSTOPERATIVE DIAGNOSIS: Acute cholecystitis. PROCEDURE PERFORMED: Laparoscopic cholecystectomy. SURGEON: London Tate MD. ELECTRICAL ASSEMBLY SUPERVISOR: None. ANESTHESIA: General endotracheal with 0.5% Marcaine with epinephrine local. ESTIMATED BLOOD LOSS: 30 mL. SPECIMENS: Gallbladder sent for Pathology. DRAINS: None. INDICATION FOR PROCEDURE: This is a 64-year-old female who was admitted and underwent a workup and was found to have an ultrasound consistent with possible acute cholecystitis. A HIDA scan was done which showed obstruction of her gallbladder; therefore, she was placed on fluids and IV antibiotics and we will plan on taking her gallbladder out this morning. We talked about the risk of an open procedure, common bile duct injury, retained common bile duct stone, postop bile leak, bleeding and possible wound complications include hernias. DESCRIPTION OF PROCEDURE: The patient was taken to the OR and underwent excellent general endotracheal anesthesia. She was somewhat of a difficult intubation, but Anesthesia was able to accomplish the intubation with a fiberoptic scope. Once this was done, she was prepped and draped in normal sterile fashion. A transverse supraumbilical incision was made and dissection was taken down to identify her fascia. Two Vicryls were placed inside the midline. The midline was incised sharply. A Bambi clamp was used to enter the peritoneal cavity bluntly. Reymundo trocar was then secured. Good pneumoperitoneum was then achieved to 15 mmHg pressure. She was placed in head up and rolled to the left. An 11 subxiphoid and two 5 lateral ports were placed in normal fashion. The gallbladder was acutely inflamed and had 2 large stones which made the gallbladder tense and difficult to grasp, but the fundus was grasped and retracted superiorly. Some adhesions were taken down and the neck was identified. With sharp and blunt dissection using cautery, the cystic duct and cystic artery were skeletonized. A medial and lateral window was created between the gallbladder and gallbladder fossa showing a critical view and these structures going right to the gallbladder. Once this was seen, 2 clips were placed proximally on the cystic artery and 1 distally on the cystic artery and cystic artery was transected. The cystic duct was then clipped and transected also. Electrocautery hook was then used to remove the gallbladder from the gallbladder fossa. This was somewhat difficult since some of the serosa was thickened, but this came out with just a small injury to the gallbladder with some leakage of bile, but no leakage of stones. Gallbladder was then brought out through an Endobag and sent for pathologic evaluation. Pneumoperitoneum was then reestablished and abdomen was irrigated out with about a liter of saline. Gallbladder fossa showed no active bleeding. The ports were then removed and pneumoperitoneum was decompressed. A 0 Vicryl was used to close the fascial defect. A 0.5% Marcaine with epinephrine local was used to create a local field block. Interrupted Vicryl was used to close the skin. Steri-Strips and benzoin were used for this incision. Sterile dressings were applied. She tolerated the procedure without any complications and was sent to postop recovery area for a period of observation and be sent to the floor. I attest to the content of the Intraoperative Record and any orders documented therein. Any exception s are noted below.
--- NOTE | 2019-10-07 13:44 | Pharmacy Report ---
Pharmacy Glycemic Short Note 2 - Date of Service October 07, 2019 - Glycemic Short BSG Results (Last 24 hours): 10/06/19 10/06/19 10/07/19 16:37 20:58 01:16 Glucose POC Glucose 201 H 244 H 183 H 10/07/19 10/07/19 10/07/19 06:00 06:44 10:06 Glucose 183 H POC Glucose 191 H 190 H 10/07/19 11:59 Glucose POC Glucose 201 H OUTPATIENT ANTIDIABETIC REGIMEN: * Insulin glargine 10-20 units SQ BID * Aspart 1-15 units TIDM with meals * A1c = 8.2% (01/21/19) ASSESSMENT: * Patient now POD #0 s/p laparoscopic cholecystectomy * Clear liquid diet ordered * BSGs ranging 183-244 mg/dL over past 24 hours * Patient receiving ciprofloxacin and metronidazole for cholecystitis PLAN FOR INPATIENT GLYCEMIC CONTROL * Basal insulin * Lantus scale BID (see EHR for details) * Bolus insulin - tighten * NovoLog per scale ACHS or Q6hrs while NPO * Goal Range: Low 100 mg/dL - High 140 mg/dL * Correction Factor: 20 mg/dL/unit * Nutritional / Prandial insulin per carb ratio of 1 unit per 7 grams CHO consumed PLAN FOR DISCHARGE: * tbd
[2019-10-07] MEDS ORDERED: Nursing to Pharmacy Communication SCH (13:45)
[2019-10-07] MEDS ORDERED: KETOROLAC TROMETHAMINE 15 MG/ML VIAL IV PRN (15:06)
--- NOTE | 2019-10-07 15:14 | Hospitalist Progress Note ---
Date of Service October 07, 2019 Assessment & Plan (1) Acute cholecystitis: With fever, borderline leukocytosis, nonbloody nausea/vomiting/diarrhea x5 days. With mildly elevated AST and ALT. CT abdomen/pelvis with cholelithiasis and no other abnormalities HIDA positive for acute cholecystitis -Now s/p lap odalis on 10/06 -Appreciate Surgery management -continue IV CIpro and Flagyl -pain control post-op but given profound lethargy and hypoxia with sedating meds--> dc all opioids and give Toradol only and tylenol -continue IVFs gentle for LETICIA as below -Follow CBC, electrolytes and renal function, LFTs (2) Nausea vomiting and diarrhea: as above 05/07 acute odalis, now resolved (3) Acute metabolic encephalopathy: Secondary initially to a single dose of IV ativan 0.5mg given on evening of 10/05 had profound hypoxia to the 50s and unresponsive except to sternal rub, was given flumazenil with some improvement Now with significant lethargy and persistent mild hypoxia with anesthesia from surgery and oxycodone, but improved from the evening of 10/05 No focal neuro deficits Was a difficult intubation as per Surgery Suspect is [place]wick[place], would avoid all sedating medications as above -check overnight sleep study (4) Cholelithiasis: Noted on CT scan as above (5) TANYA (acute kidney injury): Creatinine baseline around 2.5 and is 3.0 on admission, now up slightly to 3.14 Likely secondary to prerenal TANYA from GI losses in setting of CKD stage 3-4 -continue to hydrate with normal saline -continue to hold home Lasix and metolazone as well as potassium -Follow BMP in the morning (6) Acute respiratory failure with hypoxia: Had mild hypoxia in the ER and had to be placed on 2 L nasal cannula in ER, then with profound hypoxia as above with sedating medication Chest x-ray is normal on admission COVID 19 test is negative Has no history of lung disease but did have a bad viral pneumonia requiring intubation and ventilation in 2019 and may have some chronic lung injury from that? -Continue supplemental O2 to keep pulse ox greater than 92% -Follow -overnight sleep study as above check CXR today (7) Acute dehydration: As above Hydrating -Follow BMP -Holding home diuretics (8) Anemia: Hemoglobin slightly lower than baseline at 8.8 on admission -baseline is around 9-10 Hgb today stable to slightly lower at 8.1 from hemodilution No GI bleeding that is obvious Fe studies consistent with chronic disease B12/Folate normal -Check Hemoccult stool Likely secondary to anemia of chronic kidney disease -Follow CBC (9) Nonischemic cardiomyopathy: Now resolved, thought to be secondary to Avandia in the past (10) CKD (chronic kidney disease), stage III: As above, baseline creatinine 2.5 CKD stage 3-4 -Avoid nephrotoxins -renally dose meds when appropriate -follow BMP (11) Diabetes: With hyperglycemia here secondary to acute stress response and illness, now improving -Continue Lantus and insulin Pharmacy glycemic control consult placed (12) Hypertension: With hypertensive urgency in the ER as she was not able to tolerate taking her blood pressure medicines with the nausea and vomiting Improved after taking po meds -continue home carvedilol 50 mg p.o. twice daily, hydralazine 50 mg p.o. twice daily, but holding home diuretics -Can give IV hydralazine as needed (13) Diastolic CHF: Chronic diastolic CHF Was hypovolemic on admission, now approaching euvolemia Holding home diuretics Blood pressure control (14) CAD (coronary artery disease): Nonobstructive CAD as per cardiac catheterization 2009 No chest pain at this time and troponin is in the normal range at 0.023 ECG with normal sinus rhythm and T wave inversions in leads II and III unchanged from previous -Continue home carvedilol, but holding Plavix due to surgery (15) History of CVA (cerebrovascular accident): Left basal ganglia in 2017 -restart Plavix when ok with Surgery not on statin due to allergy/adverse rxn (16) Plantar fasciitis: Right foot with recent plantar fasciitis most likely Improving already X-ray negative from recent ER visit (17) DVT prophylaxis: Heparin SQ on hold for surgery of the gallbladder, will check with Surgery when ok to start Disposition-continued stay on PCU Will need PT/OT consults Admission and Anticipated Discharge Date Admission Date: October 06, 2019 Subjective Pt had marli jacobo today and Surgeon told me there was difficulty intubating her. Since then, RN reports she has been very drowsy and lethargic but did wake up and walk to the bathroom. She was given oxycodone for abd pain and has been lethargic again since then. She does wake up for me and answer some questions. She denies a h/o CHRISTINE and has never been tested for it. Denies having a problem with lorazepam in the past and reports she has taken it before. Currently other than being tired, she reports no CP, no SOB but remains on O2. RN reports POx 88% on RA at rest. She has tolerated sips of apple juice since retuning from surgery Tele with NSR rates 60s Review of Systems Review of Systems: All systems reviewed & are unremarkable except as noted in HPI & below Physical Exam Constitutional: WD/WN, vitals as above + obese Eyes: PERRL, conjunctivae normal, anicteric sclerae ENMT: external ear and nose normal, oropharynx normal (with large tongue, unable to visualize posterior OP) Ears: no hearing impairment, no external ear abnormality, no EAC abnormality and no TM abnormality Neck: trachea midline, no thyromegaly Respiratory: normal respiratory effort, lungs clear to auscultation Cardiovascular: Rate/Rhythm: regular rate and regular rhythm Heart Sounds: + murmur (2/6 systolic murmur heard at the apex) Vessels: no JVD Extremit ies: + edema (Mild trace pitting edema of the distal lower extremities bilaterally) Chest (Breasts): Chest: normal inspection of chest Gastrointestinal (Abdomen): normal bowel sounds, soft, nontender, no hepatosplenomegaly Musculoskeletal: Extremities: extremities normal to inspection; no cyanosis and no clubbing Skin: no rashes, warm and dry + rash (Mild chronic venous stasis changes of the legs with mild erythema and scaling with dry skin and scab on left anterior leg) Neurologic: moves all extremities and awake; no focal motor deficits Psychiatric: A+Ox3, euthymic affect Lymphatic: no lymphedema Results & Data Results & Data ([facility]) Vital Signs (Past 12 Hours) Vital Signs Temp Pulse Pulse Pulse Resp BP Pulse Ox 10/07/19 14:56 64 10/07/19 13:16 69 16 147/74 H 100 10/07/19 12:16 36.8 C 71 16 177/81 H 100 10/07/19 11:16 37 C 72 16 191/82 H 100 10/07/19 10:46 37 C 71 71 16 190/85 H 99 10/07/19 10:20 36.9 C 71 14 197/74 H 99 10/07/19 10:10 70 14 168/75 H 99 10/07/19 10:00 70 15 174/69 H 99 10/07/19 09:50 36.9 C 70 16 154/63 H 95 10/07/19 07:00 67 10/07/19 03:38 36.7 C 68 19 125/73 93 Laboratory Results 10/07/19 10/07/19 10/07/19 Range/Units 11:59 10:06 06:44 WBC (4.8-10.8) K/uL RBC (4.2-5.4) M/uL Hgb (12.0-16.0) g/dL Hct (37-47) % MCV (80-100) fL MCH (25-34) pg MCHC (32-36) g/dL RDW Std Deviation (36.4-46.3) fL RDW Coeff of [place]ed[place] (11.5-14.5) % Plt Count (130-400) K/uL MPV (7.4-10.4) fL Immature Gran % (Auto) % Neut % (Auto) % Lymph % (Auto) % [place] % (Auto) % Eos % (Auto) % Baso % (Auto) % Neut # (Auto) (1.4-6.5) K/uL Lymph # (Auto) (1.2-3.4) K/uL [place] # (Auto) (0.11-0.59) K/uL Eos # (Auto) (0-0.5) K/uL Baso # (Auto) (0-0.2) K/uL Immature Gran # (Auto) (0.00-0.02) K/uL Sodium (136-145) mmol/L Potassium (3.5-5.1) mmol/L Chloride (98-107) mmol/L Carbon Dioxide (21-32) mmol/L Anion Gap (3-11) BUN (7-18) mg/dl Creatinine (0.6-1.2) mg/dl Est Cr Clr Drug Dosing ml/min Est GFR ( Amer) Est GFR (Non-Af Amer) BUN/Creatinine Ratio (10-20) Glucose (70-99) mg/dl POC Glucose 201 H 190 H (70-99) mg/dl Estimat Average Glucose mg/dl Hemoglobin A1c (4.5-5.6) % Calcium (8.5-10.1) mg/dl Magnesium (1.8-2.4) mg/dl Iron (35-150) mcg/dl TIBC (250-450) mcg/dl Transferrin (200-360) mg/dl Transferrin % Sat (15-50) % Ferritin (8-388) ng/ml Total Bilirubin (0.2-1) mg/dl Direct Bilirubin (0-0.2) mg/dl AST (15-37) U/L ALT (12-78) U/L Alkaline Phosphatase (45-117) U/L Total Protein (6.4-8.2) gm/dl Albumin (3.4-5.0) gm/dl Vitamin B12 667 (211-911) pg/ml Folate 13.76 (>5.38) ng/ml Urine Color Urine Appearance (Clear) Urine pH (4.5-7.5) Ur Specific [place] (1.000-1.030) Urine Protein (Negative) Urine Glucose (UA) (Negative) Urine Ketones (Negative) Urine Blood (Negative) Urine Nitrite (Negative) Urine Bilirubin (Negative) Urine Urobilinogen (Negative) Ur Leukocyte Esterase (Negative) Urine WBC (Auto) (0-5) /hpf Urine RBC (Auto) (0-4) /hpf U Hyaline Cast (Auto) (0-5) /lpf U Epithel Cells (Auto) (0-5) /lpf Urine Bacteria (Auto) (Negative) Urine Yeast Blood Type Antibody Screen 10/07/19 10/07/19 10/07/19 Range/Units 06:44 06:44 06:44 WBC 10.37 (4.8-10.8) K/uL RBC 2.96 L (4.2-5.4) M/uL Hgb 8.1 L (12.0-16.0) g/dL Hct 26.1 L (37-47) % MCV 88.2 (80-100) fL MCH 27.4 (25-34) pg MCHC 31.0 L (32-36) g/dL RDW Std Deviation 47.9 H (36.4-46.3) fL RDW Coeff of Braeden 14.8 H (11.5-14.5) % Plt Count 260 (130-400) K/uL MPV 9.9 (7.4-10.4) fL Immature Gran % (Auto) 0.4 % Neut % (Auto) 78.6 % Lymph % (Auto) 11.5 % [place] % (Auto) 7.1 % Eos % (Auto) 2.0 % Baso % (Auto) 0.4 % Neut # (Auto) 8.15 H (1.4-6.5) K/uL Lymph # (Auto) 1.19 L (1.2-3.4) K/uL [place] # (Auto) 0.74 H (0.11-0.59) K/uL Eos # (Auto) 0.21 (0-0.5) K/uL Baso # (Auto) 0.04 (0-0.2) K/uL Immature Gran # (Auto) 0.04 H (0.00-0.02) K/uL Sodium 141 (136-145) mmol/L Potassium 4.1 (3.5-5.1) mmol/L Chloride 113 H (98-107) mmol/L Carbon Dioxide 25 (21-32) mmol/L Anion Gap 3.0 (3-11) BUN 51 H (7-18) mg/dl Creatinine 3.14 H (0.6-1.2) mg/dl Est Cr Clr Drug Dosing 23.4 ml/min Est GFR ( Amer) 17.3 Est GFR (Non-Af Amer) 14.9 BUN/Creatinine Ratio 16.4 (10-20) Glucose 183 H (70-99) mg/dl POC Glucose (70-99) mg/dl Estimat Average Glucose 189 mg/dl Hemoglobin A1c 8.2 H (4.5-5.6) % Calcium 9.6 (8.5-10.1) mg/dl Magnesium 2.3 (1.8-2.4) mg/dl Iron 41 (35-150) mcg/dl TIBC 185 L (250-450) mcg/dl Transferrin 137 L (200-360) mg/dl Transferrin % Sat 21 (15-50) % Ferritin 1757.9 H (8-388) ng/ml Total Bilirubin 0.2 (0.2-1) mg/dl Direct Bilirubin < 0.1 (0-0.2) mg/dl AST 33 (15-37) U/L ALT 68 (12-78) U/L Alkaline Phosphatase 80 (45-117) U/L Total Protein 6.5 (6.4-8.2) gm/dl Albumin 2.2 L (3.4-5.0) gm/dl Vitamin B12 (211-911) pg/ml Folate (>5.38) ng/ml Urine Color Urine Appearance (Clear) Urine pH (4.5-7.5) Ur Specific [place] (1.000-1.030) Urine Protein (Negative) Urine Glucose (UA) (Negative) Urine Ketones (Negative) Urine Blood (Negative) Urine Nitrite (Negative) Urine Bilirubin (Negative) Urine Urobilinogen (Negative) Ur Leukocyte Esterase (Negative) Urine WBC (Auto) (0-5) /hpf Urine RBC (Auto) (0-4) /hpf U Hyaline Cast (Auto) (0-5) /lpf U Epithel Cells (Auto) (0-5) /lpf Urine Bacteria (Auto) (Negative) Urine Yeast Blood Type Antibody Screen 10/07/19 10/07/19 10/07/19 Range/Units 06:00 05:49 01:16 WBC (4.8-10.8) K/uL RBC (4.2-5.4) M/uL Hgb (12.0-16.0) g/dL Hct (37-47) % MCV (80-100) fL MCH (25-34) pg MCHC (32-36) g/dL RDW Std Deviation (36.4-46.3) fL RDW Coeff of Braeden (11.5-14.5) % Plt Count (130-400) K/uL MPV (7.4-10.4) fL Immature Gran % (Auto) % Neut % (Auto) % Lymph % (Auto) % [place] % (Auto) % Eos % (Auto) % Baso % (Auto) % Neut # (Auto) (1.4-6.5) K/uL Lymph # (Auto) (1.2-3.4) K/uL [place] # (Auto) (0.11-0.59) K/uL Eos # (Auto) (0-0.5) K/uL Baso # (Auto) (0-0.2) K/uL Immature Gran # (Auto) (0.00-0.02) K/uL Sodium (136-145) mmol/L Potassium (3.5-5.1) mmol/L Chloride (98-107) mmol/L Carbon Dioxide (21-32) mmol/L Anion Gap (3-11) BUN (7-18) mg/dl Creatinine (0.6-1.2) mg/dl Est Cr Clr Drug Dosing ml/min Est GFR ( Amer) Est GFR (Non-Af Amer) BUN/Creatinine Ratio (10-20) Glucose (70-99) mg/dl POC Glucose 191 H 183 H (70-99) mg/dl Estimat Average Glucose mg/dl Hemoglobin A1c (4.5-5.6) % Calcium (8.5-10.1) mg/dl Magnesium (1.8-2.4) mg/dl Iron (35-150) mcg/dl TIBC (250-450) mcg/dl Transferrin (200-360) mg/dl Transferrin % Sat (15-50) % Ferritin (8-388) ng/ml Total Bilirubin (0.2-1) mg/dl Direct Bilirubin (0-0.2) mg/dl AST (15-37) U/L ALT (12-78) U/L Alkaline Phosphatase (45-117) U/L Total Protein (6.4-8.2) gm/dl Albumin (3.4-5.0) gm/dl Vitamin B12 (211-911) pg/ml Folate (>5.38) ng/ml Urine Color Dark Yellow Urine Appearance Turbid A (Clear) Urine pH 5.0 (4.5-7.5) Ur Specific [place] 1.025 (1.000-1.030) Urine Protein 4+ H (Negative) Urine Glucose (UA) 1+ H (Negative) Urine Ketones Negative (Negative) Urine Blood Negative (Negative) Urine Nitrite Negative (Negative) Urine Bilirubin Negative (Negative) Urine Urobilinogen Negative (Negative) Ur Leukocyte Esterase 2+ H (Negative) Urine WBC (Auto) >30 H (0-5) /hpf Urine RBC (Auto) 0-4 (0-4) /hpf U Hyaline Cast (Auto) 5-10 H (0-5) /lpf U Epithel Cells (Auto) >30 H (0-5) /lpf Urine Bacteria (Auto) 4+ H (Negative) Urine Yeast Not Reportable Blood Type Antibody Screen 10/06/19 10/06/19 10/06/19 Range/Units 20:58 19:23 16:37 WBC (4.8-10.8) K/uL RBC (4.2-5.4) M/uL Hgb (12.0-16.0) g/dL Hct (37-47) % MCV (80-100) fL MCH (25-34) pg MCHC (32-36) g/dL RDW Std Deviation (36.4-46.3) fL RDW Coeff of Braed[place] (11.5-14.5) % Plt Count (130-400) K/uL MPV (7.4-10.4) fL Immature Gran % (Auto) % Neut % (Auto) % Lymph % (Auto) % [place] % (Auto) % Eos % (Auto) % Baso % (Auto) % Neut # (Auto) (1.4-6.5) K/uL Lymph # (Auto) (1.2-3.4) K/uL [place] # (Auto) (0.11-0.59) K/uL Eos # (Auto) (0-0.5) K/uL Baso # (Auto) (0-0.2) K/uL Immature Gran # (Auto) (0.00-0.02) K/uL Sodium (136-145) mmol/L Potassium (3.5-5.1) mmol/L Chloride (98-107) mmol/L Carbon Dioxide (21-32) mmol/L Anion Gap (3-11) BUN (7-18) mg/dl Creatinine (0.6-1.2) mg/dl Est Cr Clr Drug Dosing ml/min Est GFR ( Amer) Est GFR (Non-Af Amer) BUN/Creatinine Ratio (10-20) Glucose (70-99) mg/dl POC Glucose 244 H 201 H (70-99) mg/dl Estimat Average Glucose mg/dl Hemoglobin A1c (4.5-5.6) % Calcium (8.5-10.1) mg/dl Magnesium (1.8-2.4) mg/dl Iron (35-150) mcg/dl TIBC (250-450) mcg/dl Transferrin (200-360) mg/dl Transferrin % Sat (15-50) % Ferritin (8-388) ng/ml Total Bilirubin (0.2-1) mg/dl Direct Bilirubin (0-0.2) mg/dl AST (15-37) U/L ALT (12-78) U/L Alkaline Phosphatase (45-117) U/L Total Protein (6.4-8.2) gm/dl Albumin (3.4-5.0) gm/dl Vitamin B12 (211-911) pg/ml Folate (>5.38) ng/ml Urine Color Urine Appearance (Clear) Urine pH (4.5-7.5) Ur Specific [place] (1.000-1.030) Urine Protein (Negative) Urine Glucose (UA) (Negative) Urine Ketones (Negative) Urine Blood (Negative) Urine Nitrite (Negative) Urine Bilirubin (Negative) Urine Urobilinogen (Negative) Ur Leukocyte Esterase (Negative) Urine WBC (Auto) (0-5) /hpf Urine RBC (Auto) (0-4) /hpf U Hyaline Cast (Auto) (0-5) /lpf U Epithel Cells (Auto) (0-5) /lpf Urine Bacteria (Auto) (Negative) Urine Yeast Blood Type A Positive Antibody Screen NEGATIVE PG Care Time/CCT Total # of Minutes Spent Total Time Spent with Patient: Total time spent is greater than 50% in coordination of care (as documented) at patient's floor/unit and/or counseling patient: Coding Level of Care Code 44033 Subseq Hosp Care Lvl 3 Diagnoses Acute cholecystitis K81.0 Nausea vomiting and diarrhea R11.2; R19.7 Acute metabolic encephalopathy G93.41 Cholelithiasis K80.20 Biliary obstruction: without biliary obstruction Cholecystitis presence: without cholecystitis Cholelithiasis location: gallbladder TANYA (acute kidney injury) N17.9 Acute respiratory failure with hypoxia J96.01 Acute dehydration E86.0 Anemia D64.9 Anemia type: unspecified type Nonischemic cardiomyopathy I42.8 CKD (chronic kidney disease), stage III N18.3 Diabetes E11.9; Z79.4 Diabetes mellitus type: type 2 Diabetes mellitus penitentiary insulin use: with watermaster use Diabetes mellitus complication status: without complication Hypertension I10 Hypertension type: essential hypertension Diastolic CHF I50.30 CAD (coronary artery disease) I25.10 History of CVA (cerebrovascular accident) Z86.73 Plantar fasciitis M72.2 DVT prophylaxis Z29.9 (1) Cholelithiasis Biliary obstruction: without biliary obstruction Cholecystitis presence: without cholecystitis Cholelithiasis location: gallbladder Qualified Code(s): K80.20 - Calculus of gallbladder without cholecystitis without obstruction (2) Anemia Anemia type: unspecified type Qualified Code(s): D64.9 - Anemia, unspecified (3) Diabetes Diabetes mellitus type: type 2 Diabetes mellitus watermaster insulin use: with penitentiary use Diabetes mellitus complication status: without complication Qualified Code(s): E11.9 - Type 2 diabetes mellitus without complications; Z79.4 - senior care (current) use of insulin (4) Hypertension Hypertension type: essential hypertension Qualified Code(s): I10 - Essential (primary) hypertension
[2019-10-07] MEDS ORDERED: SODIUM CHLORIDE 0.9% 1000ML 1,000 ML IV SCH (15:15)
--- NOTE | 2019-10-07 16:47 | XRay Report ---
XR chest 1V portable CLINICAL HISTORY: hypoxia COMPARISON STUDY: Chest radiograph October 06, 2019. FINDINGS: Moderate cardiac megaly is noted. There is no evidence for pulmonary edema. There are trace bilateral pleural effusions. Left basilar opacity favors atelectasis. Right basilar opacity is noted . IMPRESSION: 1. Right basilar opacity which could reflect atelectasis or an infectious process. 2. Moderate cardiomegaly without evidence for pulmonary edema. 3. Trace bilateral pleural effusions. ACT 112: Negative or not required by law. Electronically signed by: Jonathan An M.D. 10/07/2019 4:45 PM
[2019-10-07] MEDS: CIPROFLOXACIN / D5W 400 MG/200 ML BAG IV SCH (18:01)
[2019-10-08] MEDS: ONDANSETRON INJ 2 MG/ML 2 ML VIAL IV PRN ×2 (01:15→10:47)
[2019-10-08] MEDS: metroNIDAZOLE 500 MG/100 ML BAG IV SCH ×3 (01:54→16:43)
[2019-10-08] MEDS: CEFAZOLIN 2000MG 2,000 MG/15 ML SYR IV SCH (05:50)
[2019-10-08 07:13] LABS: Basophils # (auto) 0.03 K/uL (0-0.2); Basophils % (auto) 0.4 %; Eosinophils # (auto) 0.38 K/uL (0-0.5); Hematocrit (blood only) 24.7 % (37-47); Hemoglobin 7.7 g/dL (12.0-16.0); Immature Granulocytes # (auto) 0.02 K/uL (0.00-0.02); Immature Granulocytes % (auto) 0.3 %; Lymphocytes # (auto) 1.54 K/uL (1.2-3.4); Lymphocytes % (auto) 20.4 %; Mean Corpuscular Hemoglobin 26.9 pg (25-34); Mean Corpuscular Hgb Conc 31.2 g/dL (32-36); Mean Corpuscular Volume 86.4 fL (80-100); Mean Platelet Volume 9.3 fL (7.4-10.4); Monocytes # (auto) 0.75 K/uL (0.11-0.59); Monocytes % (auto) 9.9 %; Neutrophils # (auto) 4.83 K/uL (1.4-6.5); Platelet Count 234 K/uL (130-400); RDW Coefficient of Variation 14.9 % (11.5-14.5); RDW Standard Deviation 46.8 fL (36.4-46.3); Red Blood Count 2.86 M/uL (4.2-5.4); White Blood Count 7.55 K/uL (4.8-10.8)
[2019-10-08 07:43] LABS: Alanine Aminotransferase 73 U/L (12-78); Albumin Level 2.1 gm/dl (3.4-5.0); Aspartate Aminotransferase 67 U/L (15-37); BUN Creatinine Ratio 16.5 (10-20); Bilirubin Direct < 0.1 mg/dl (0-0.2); Blood Urea Nitrogen 54 mg/dl (7-18); Calcium 8.9 mg/dl (8.5-10.1); Carbon Dioxide 26 mmol/L (21-32); Chloride 112 mmol/L (98-107); Creatinine Clr Calc Pharmacy 22.7 ml/min; Est GFR (African American) 16.3; Est GFR (Non-African American) 14.1; Glucose 133 mg/dl (70-99); Potassium 3.6 mmol/L (3.5-5.1); Sodium 140 mmol/L (136-145)
[2019-10-08 07:45] LABS: Alkaline Phosphatase 79 U/L (45-117); Bilirubin,Total 0.1 mg/dl (0.2-1); Total Protein 6.3 gm/dl (6.4-8.2)
[2019-10-08] MEDS: INSULIN ASPART 100 UNITS/ML 3 ML PEN SC SCH ×4 (08:14→20:40)
[2019-10-08] MEDS: carvediloL 25 MG TAB PO SCH ×2 (08:17→20:35)
[2019-10-08] MEDS: PANTOprazole 40 MG TAB PO SCH (08:17)
[2019-10-08] MEDS: HydrALAZINE TAB 50 MG TAB PO SCH ×3 (08:17→20:35)
[2019-10-08] MEDS: INSULIN GLARGINE SOLOSTAR 100 UNITS/ML 3 ML PEN SQ SCH ×2 (08:18→20:39)
--- NOTE | 2019-10-08 09:25 | Surgery Progress Note ---
Date of Service October 08, 2019 Assessment & Plan (1) Acute cholecystitis: s/p lap odalis doing well advance diet discharge per medical team F/U 2 weeks my office at [facility] regular diet as tolerated no strenuous activity at home till seen in clinic shower OK drive after seen in clinic will sign off Subjective doing well from surgery eating only OK pain controlled Review of Systems Constitutional: no fever and no chills Respiratory: no cough and no dyspnea Cardiovascular: no chest pain Gastrointestinal: + abdominal pain; no nausea and no vomiting Genitourinary: no dysuria Musculoskeletal: no back pain Physical Exam Constitutional: well developed and well nourished Neck: trachea midline Respiratory: normal respiratory effort Cardiovascular: RRR, no murmur, no edema Gastrointestinal (Abdomen): Inspection/Auscultation: normal bowel sounds; abdomen not distended Percussion/Palpation: + abdomen tender; no guarding incisions OK Musculoskeletal: Head/Neck/Chest: normocephalic and head atraumatic Results & Data Vital Signs (Past 12 Hours) Vital Signs Temp Pulse Pulse Pulse Resp BP BP 10/08/19 07:35 36.4 C L 63 18 156/78 H 10/08/19 04:04 36.6 C 92 H 18 123/74 10/08/19 03:35 61 10/08/19 00:21 63 10/07/19 23:39 36.8 C 64 16 144/69 H 10/07/19 22:18 67 Pulse Ox Pulse Ox 10/08/19 07:35 93 10/08/19 04:04 92 10/08/19 03:35 90 10/08/19 00:21 91 10/07/19 23:39 96 10/07/19 22:18 92
--- NOTE | 2019-10-08 09:36 | Pharmacy Report ---
Pharmacy Glycemic Short Note 2 - Date of Service October 08, 2019 - Glycemic Short BSG Results (Last 24 hours): 10/07/19 10/07/19 10/07/19 10:06 11:59 16:21 Glucose POC Glucose 190 H 201 H 124 H 10/07/19 10/08/19 10/08/19 20:08 07:02 07:10 Glucose 133 H POC Glucose 151 H 149 H OUTPATIENT ANTIDIABETIC REGIMEN: * Insulin glargine 10-20 units SQ BID * Aspart 1-15 units TIDM with meals * A1c = 8.2% (01/21/19) ASSESSMENT: * Patient now POD #1 s/p laparoscopic cholecystectomy * Clear liquid diet ordered * BSGs ranging 124-201 mg/dL over past 24 hours * Fasting BSG of 149 mg/dL this morning * Patient receiving ciprofloxacin and metronidazole for cholecystitis PLAN FOR INPATIENT GLYCEMIC CONTROL * Basal insulin - continue * Lantus scale BID (see EHR for details) * Bolus insulin - tightened Novolog yesterday - continue * NovoLog per scale ACHS or Q6hrs while NPO * Goal Range: Low 100 mg/dL - High 140 mg/dL * Correction Factor: 20 mg/dL/unit * Nutritional / Prandial insulin per carb ratio of 1 unit per 7 grams CHO consumed PLAN FOR DISCHARGE: * HbA1c of 8.2% is above goal - reasonable goal would be less than 7% for this patient * Home insulin regimen may need to be adjusted - will follow insulin needs as diet is advanced (to be determined)
--- NOTE | 2019-10-08 11:01 | Hospitalist Progress Note ---
Date of Service October 08, 2019 Assessment & Plan (1) Acute cholecystitis: With fever, borderline leukocytosis, nonbloody nausea/vomiting/diarrhea x5 days prior to admission. With mildly elevated AST and ALT. CT abdomen/pelvis with cholelithiasis and no other abnormalities HIDA positive for acute cholecystitis -Now s/p lap odalis on 10/06 and doing okay on postop day #1-still having some occasional nausea, pain is controlled, no BM yet. No MANFRED drain in place LFTs have returned to normal Remains afebrile -Appreciate Surgery management -Advance diet today to DM 2, low-sodium -continue IV CIpro and Flagyl-length of course to be determined as per surgery's wishes but can likely discontinue at the time of discharge -pain control post-op but given profound lethargy and severe hypoxia with sedating meds--> dc all opioids and give Toradol only and tylenol -Follow CBC, electrolytes and renal function, LFTs -Follow-up with Dr. Tate of [facility] surgery in 2 weeks at [facility] (2) Nausea vomiting and diarrhea: as above 2/2 acute odalis, was resolved, but had some nausea with dry heaves after a coughing spell on the morning of 10/07 -Zofran as needed Stool studies for the diarrhea were canceled as she is no longer having any diarrhea since having her gallbladder removed (3) Nocturnal hypoxemia: With profound nocturnal hypoxemia on overnight pulse oximetry here Average pulse ox overnight on room air was 81% with a low of 46% She had almost 6 hours of pulse ox under 88% through the night -Patient is willing to trial CPAP tonight with 2 L O2 to bleed in, however she is fairly adamant that she will not use his CPAP at home and when told that she needs to have a formal sleep study as an outpatient, she would not agree to that so far -If unwilling to use CPAP, she did say she is willing to use O2 via nasal cannula both in the hospital and at home -Case management will need to arrange for home O2 at nighttime -Ordered continuous pulse ox for here at nighttime to help determine how much oxygen she will need while sleeping-RT can titrate (4) Acute metabolic encephalopathy: Secondary initially to a single dose of IV ativan 0.5mg given on evening of 7/3 had profound hypoxia to the 50s and unresponsive except to sternal rub, was given flumazenil with some improvement Then with significant lethargy and persistent mild hypoxia on the day of her surgery 10/06 secondary to anesthesia and oxycodone, but improved from the evening of 10/05 Mental status much improved on 10/07 during the day As above, has severe hypoxemia with sleeping which is also likely contributing No focal neuro deficits on examination Of note, was a difficult intubation as per Surgery Suspect is Pickwick[place], would avoid all sedating medications as above -Acute kidney injury may also be playing a role (5) TANYA (acute kidney injury): Creatinine baseline around 2.5 and is 3.0 on admission from prerenal TANYA f rom GI losses; now up again today to 3.29 likely hemodynamically mediated in the setting of recent surgery -Held IV fluids due to hypoxia and mild pleural effusions on chest x-ray Volume status is euvolemic -continue to hold home Lasix and metolazone as well as potassium -Needs improved BP control-increasing hydralazine -Follow BMP in the morning -Appreciate nephrology recommendations (6) Acute respiratory failure with hypoxia: Had mild hypoxia in the ER and had to be placed on 2 L nasal cannula in ER, then with profound hypoxia as above with sedating medication Chest x-ray is normal on admission and repeat on 10/06 with mild pleural effusions COVID 19 test is negative Has no history of lung disease but did have a bad viral pneumonia requiring intu bation and ventilation in 2019 and may have some chronic lung injury from that? Suspect that she has chronic hypoxia given the overnight pulse ox as above -Continue supplemental O2 to keep pulse ox greater than 92%-when she is awake, she does not need any O2 (7) Acute dehydration: As above Hydrating -Follow BMP -Holding home diuretics (8) Anemia: Hemoglobin slightly lower than baseline at 8.8 on admission -baseline is around 9-10 Hgb today even lower status post surgery at 7.7 No GI bleeding that is obvious Fe studies consistent with chronic disease B12/Folate normal -Check Hemoccult stool-pending Likely secondary to anemia of chronic kidney disease -Follow CBC -Nephrology ordered 1 dose of Epogen today (9) Nonischemic cardiomyopathy: Now resolved, thought to be secondary to Avandia in the past (10) CKD (chronic kidney disease), stage III: As above, baseline creatinine 2.5 CKD stage 3-4 -Avoid nephrotoxins -renally dose meds when appropriate -follow BMP (11) Diabetes: With hyperglycemia here secondary to acute stress response and illness, now improving -Continue Lantus and insulin Pharmacy glycemic control consult placed (12) Hypertension: With hypertensive urgency in the ER as she was not able to tolerate taking her blood pressure medicines with the nausea and vomiting Improved after taking po meds but BP still elevated today -continue home carvedilol 50 mg p.o. twice daily -Increase hydralazine to 50 mg p.o. 3 times daily, but holding home diuretics -Can give IV hydralazine as needed (13) Diastolic CHF: Chronic diastolic CHF Was hypovolemic on admission, now euvolemic Holding home diuretics Blood pressure control (14) CAD (coronary artery disease): Nonobstructive CAD as per cardiac catheterization 2009 No chest pain at this time and troponin is in the normal range at 0.023 ECG with normal sinus rhythm and T wave inversions in leads II and III unchanged from previous -Continue home carvedilol, but holding Plavix due to recent surgery-need to discuss with surgery when okay to restart (15) History of CVA (cerebrovascular accident): Left basal ganglia in 2017 -restart Plavix when ok with Surgery not on statin due to allergy/adverse rxn (16) Plantar fasciitis: Right foot with recent plantar fasciitis most likely Foot pain now resolved but is not ambulating much X-ray negative from recent ER visit (17) Cholelithiasis: Noted on CT scan as above-now status post lap cholecystectomy (18) DVT prophylaxis: Will start heparin SQ today as is postop day #1 Disposition-continued stay on PCU PT/OT consults pending Admission and Anticipated Discharge Date Admission Date: October 06, 2019 Subjective Patient generally feeling a bit better today. Abdomen is sore. She began complaining of a slight cough when I was seeing her and after she coughed she started having posttussive dry heaves with a scant amount of emesis. She was given IV Zofran while I was at the bedside. We discussed her profound nocturnal hypoxemia on her overnight oximetry. The patient states that she does not want to try CPAP at all, but after much discussion, she was agreeable to a trial of it tonight in the hospital. Then when I asked her if she would be willing to wear nasal cannula oxygen at home upon discharge, she said maybe she would think about it. She then reported, "when I get home, I will be fine. I sleep in a lazy boy recliner." Her overnight oximetry test showed 235 desaturation events less than 88% and numerous extended periods where her pulse ox was in the 50s and 60% range. Review of Systems Review of Systems: All systems reviewed & are unremarkable except as noted in HPI & below Denies chest pain or shortness of breath Physical Exam Constitutional: WD/WN, vitals as above + obese Eyes: + anicteric sclerae ENMT: Ears: no hearing impairment Neck: trachea midline, no thyromegaly Respiratory: normal respiratory effort, lungs clear to auscultation Cardiovascular: Rate/Rhythm: regular rate and regular rhythm Heart Sounds: + murmur (2/6 systolic murmur heard at the apex) Vessels: no JVD Extrem ities: + edema (Mild trace pitting edema of the distal lower extremities bilaterally) Chest (Breasts): Chest: normal inspection of chest Gastrointestinal (Abdomen): Inspection/Auscultation: normal bowel sounds; + abdomen abnormal to inspection (Multiple laparoscopic port sites with Steri- Strips in place, no surrounding erythema) Percussion/Palpation: + abdomen tender (Mild over incision sites without guarding or rebound tenderness) and abdomen soft Musculoskeletal: Extremities: extremities normal to inspection; no cyanosis and no clubbing Skin: no rashes, warm and dry + rash (Mild chronic venous stasis changes of the legs with mild erythema and scaling with dry skin and scab on left anterior leg) Neurologic: moves all extremities and awake; no focal motor deficits Psychiatric: Orientation: alert and oriented x 3 More awake and alert today than yesterday Lymphatic: no lymphedema Results & Data Results & Data ([facility]) Vital Signs (Past 12 Hours) Vital Signs Temp Pulse Pulse Pulse Resp BP BP 10/08/19 07:35 36.4 C L 63 18 156/78 H 10/08/19 04:04 36.6 C 92 H 18 123/74 10/08/19 03:35 61 10/08/19 00:21 63 10/07/19 23:39 36.8 C 64 16 144/69 H Pulse Ox Pulse Ox 10/08/19 07:35 93 10/08/19 04:04 92 10/08/19 03:35 90 10/08/19 00:21 91 10/07/19 23:39 96 Laboratory Results 10/08/19 10/08/19 10/08/19 Range/Units 16:12 11:41 07:10 WBC (4.8-10.8) K/uL RBC (4.2-5.4) M/uL Hgb (12.0-16.0) g/dL Hct (37-47) % MCV (80-100) fL MCH (25-34) pg MCHC (32-36) g/dL RDW Std Deviation (36.4-46.3) fL RDW Coeff of Braeden (11.5-14.5) % Plt Count (130-400) K/uL MPV (7.4-10.4) fL Immature Gran % (Auto) % Neut % (Auto) % Lymph % (Auto) % Sac % (Auto) % Eos % (Auto) % Baso % (Auto) % Neut # (Auto) (1.4-6.5) K/uL Lymph # (Auto) (1.2-3.4) K/uL Sac # (Auto) (0.11-0.59) K/uL Eos # (Auto) (0-0.5) K/uL Baso # (Auto) (0-0.2) K/uL Immature Gran # (Auto) (0.00-0.02) K/uL Sodium (136-145) mmol/L Potassium (3.5-5.1) mmol/L Chloride (98-107) mmol/L Carbon Dioxide (21-32) mmol/L Anion Gap (3-11) BUN (7-18) mg/dl Creatinine (0.6-1.2) mg/dl Est Cr Clr Drug Dosing ml/min Est GFR ( Amer) Est GFR (Non-Af Amer) BUN/Creatinine Ratio (10-20) Glucose (70-99) mg/dl POC Glucose 159 H 162 H 149 H (70-99) mg/dl Calcium (8.5-10.1) mg/dl Total Bilirubin (0.2-1) mg/dl Direct Bilirubin (0-0.2) mg/dl AST (15-37) U/L ALT (12-78) U/L Alkaline Phosphatase (45-117) U/L Total Protein (6.4-8.2) gm/dl Albumin (3.4-5.0) gm/dl 10/08/19 10/08/19 10/07/19 Range/Units 07:02 07:02 20:08 WBC 7.55 (4.8-10.8) K/uL RBC 2.86 L (4.2-5.4) M/uL Hgb 7.7 L (12.0-16.0) g/dL Hct 24.7 L (37-47) % MCV 86.4 (80-100) fL MCH 26.9 (25-34) pg MCHC 31.2 L (32-36) g/dL RDW Std Deviation 46.8 H (36.4-46.3) fL RDW Coeff of Braeden 14.9 H (11.5-14.5) % Plt Count 234 (130-400) K/uL MPV 9.3 (7.4-10.4) fL Immature Gran % (Auto) 0.3 % Neut % (Auto) 64.0 % Lymph % (Auto) 20.4 % Sac % (Auto) 9.9 % Eos % (Auto) 5.0 % Baso % (Auto) 0.4 % Neut # (Auto) 4.83 (1.4-6.5) K/uL Lymph # (Auto) 1.54 (1.2-3.4) K/uL Sac # (Auto) 0.75 H (0.11-0.59) K/uL Eos # (Auto) 0.38 (0-0.5) K/uL Baso # (Auto) 0.03 (0-0.2) K/uL Immature Gran # (Auto) 0.02 (0.00-0.02) K/uL Sodium 140 (136-145) mmol/L Potassium 3.6 (3.5-5.1) mmol/L Chloride 112 H (98-107) mmol/L Carbon Dioxide 26 (21-32) mmol/L Anion Gap 2.0 L (3-11) BUN 54 H (7-18) mg/dl Creatinine 3.29 H (0.6-1.2) mg/dl Est Cr Clr Drug Dosing 22.7 ml/min Est GFR ( Amer) 16.3 Est GFR (Non-Af Amer) 14.1 BUN/Creatinine Ratio 16.5 (10-20) Glucose 133 H (70-99) mg/dl POC Glucose 151 H (70-99) mg/dl Calcium 8.9 (8.5-10.1) mg/dl Total Bilirubin 0.1 L (0.2-1) mg/dl Direct Bilirubin < 0.1 (0-0.2) mg/dl AST 67 H (15-37) U/L ALT 73 (12-78) U/L Alkaline Phosphatase 79 (45-117) U/L Total Protein 6.3 L (6.4-8.2) gm/dl Albumin 2.1 L (3.4-5.0) gm/dl PG Care Time/CCT Total # of Minutes Spent Total Time Spent with Patient: Total time spent is greater than 50% in coordination of care (as documented) at patient's floor/unit and/or counseling patient: Coding Level of Care Code 75702 Subseq Hosp Care Lvl 3 Diagnoses Acute cholecystitis K81.0 Nausea vomiting and diarrhea R11.2; R19.7 Nocturnal hypoxemia G47.34 Acute metabolic encephalopathy G93.41 TANYA (acute kidney injury) N17.9 Acute respiratory failure with hypoxia J96.01 Acute dehydration E86.0 Anemia D64.9 Anemia type: unspecified type Nonischemic cardiomyopathy I42.8 CKD (chronic kidney disease), stage III N18.3 Diabetes E11.9; Z79.4 Diabetes mellitus complication status: without complication Diabetes mellitus lobsterman insulin use: with lobsterman use Diabetes mellitus type: type 2 Hypertension I10 Hypertension type: essential hypertension Diastolic CHF I50.30 CAD (coronary artery disease) I25.10 History of CVA (cerebrovascular accident) Z86.73 Plantar fasciitis M72.2 Cholelithiasis K80.20 Biliary obstruction: without biliary obstruction Cholecystitis presence: without cholecystitis Cholelithiasis location: gallbladder DVT prophylaxis Z29.9 (1) Diabetes Diabetes mellitus complication status: without complication Diabetes mellitus correction insulin use: with correction use Diabetes mellitus type: type 2 Qualified Code(s): E11.9 - Type 2 diabetes mellitus without complications; Z79.4 - senior care (current) use of insulin (2) Anemia Anemia type: unspecified type Qualified Code(s): D64.9 - Anemia, unspecified (3) Hypertension Hypertension type: essential hypertension Qualified Code(s): I10 - Essential (primary) hypertension (4) Cholelithiasis Biliary obstruction: without biliary obstruction Cholecystitis presence: without cholecystitis Cholelithiasis location: gallbladder Qualified Code(s): K80.20 - Calculus of gallbladder without cholecystitis without obstruction
[2019-10-08] MEDS ORDERED: EPOETIN ALFA 20,000 UNITS/ML VIAL SQ STA (11:19)
--- NOTE | 2019-10-08 11:38 | Nephrology Consultation ---
Date of Consultation October 08, 2019 Assessment & Plan (1) Acute kidney injury: Azucena has stage IIIB/4 CKD secondary to diabetic nephropathy, baseline creatinine around 2.5 with moderate degree proteinuria. Admitted with acute cholecystitis, status post laparoscopic cholecystectomy on 10/07/19. Found to have acute kidney injury and elevated blood pressure since admission. Acute kidney injury most likely hemodynamically mediated in the setting laparoscopic cholecystectomy. Electrolyte has been acceptable. Has been voiding normally and otherwise asymptomatic. --would continue to hold diuretics for now --increase hydralazine to 50 milligram t.i.d. --repeat renal panel in a.m. --Epogen 67895 units x1 dose today --avoid nephrotoxic medications, dose medications for GFR less than 30, left arm Nephrology precaution Thank you for allowing me to participate in your patient's care. It was a pleasure to see (2) Anemia: (3) Type 2 diabetes mellitus with complications: (4) Acute cholecystitis: (5) Primary hyperparathyroidism: (6) Obesity: (7) Nonischemic cardiomyopathy: History of Present Illness Reason for Consultation: TANYA with advanced CKD Attending Physician: Mariaa Alarcon MD History of Present Illness Delfina Reyna is a 64 year female stage IV CKD hypertension diabetes coronary artery disease admitted to the hospital with cholecystitis. Nephrology consult was requested to manage AK I with advanced CKD. Electronic medical records including labs and imaging reviewed in detail during patient's visit. Delfina presented to hospital on 10/06/2019 with persistent nausea vomiting for few days. On admission she was found to have acute cholecystitis and had laparoscopic cholecystectomy on 10/07/2019. Surgery went well and she is recovering well from the surgery. Has mild pain which is manageable. Has stage IIIB/4 CKD with baseline creatinine around 2.5, secondary to diabetic nephropathy. On admission creatinine was 3.0 which slightly worsened to 3.3 this morning. Electrolyte has been acceptable. She has moderate degree proteinuria. Blood pressure has been running high. At home she has been on Lasix 40 milligram twice a day and metolazone 5 milligram as needed. Diabetes with diabetic nephropathy, on insulin. History of diastolic CHF, requiring high-dose diuretics at baseline. Currently she denies any shortness of breath, chest pain. She has been voiding normally. Blood pressure relatively high. Was not able to tolerate po yet. Allergies Allergy/AdvReac Type Severity Reaction Status Date / Time dulaglutide [From Trulicity] Allergy Intermediate Hives Verified 10/05/19 08:05 insulin lispro Allergy Visual Verified 10/05/19 08:05 [From Humalog U-100 Insulin] Disturbance erythromycin base AdvReac Intermediate Vomiting Verified 10/05/19 08:05 atorvastatin AdvReac Joint Pain Verified 10/05/19 08:05 Home Medications Home Medications Medication Instructions Recorded Confirmed Type melatonin 3 mg tablet 3 mg PO HS PRN 02/01/19 10/06/19 History hydralazine 50 mg tablet 50 mg PO BID #180 tab 02/20/19 10/06/19 Rx insulin glargine 100 unit/mL (3 10 - 20 unit SQ BID ml 05/15/19 10/06/19 History mL) subcutaneous pen clopidogrel [Plavix] 75 mg PO QAM 05/16/19 10/06/19 History fluticasone propionate [Flonase 2 sprays INTNAS DAILY PRN 05/16/19 10/06/19 History Allergy Relief] pantoprazole 40 mg PO QAM 05/16/19 10/06/19 History BD Ultra-Fine Gwen Pen Needle 32 #500 ea NS 05/30/19 10/05/19 Rx gauge x 5/32" insulin aspart U-100 100 unit/mL 1 - 15 unit SC TIDM PRN #15 ml 07/17/1906/22 Rx (3 mL) subcutaneous pen carvedilol 25 mg tablet 50 mg PO BID #360 tab 08/16/19 10/06/19 Rx metolazone 5 mg tablet 5 mg PO DAILY PRN #20 tab 08/18/19 10/06/19 Rx furosemide 40 mg tablet 40 mg PO BID #180 tab 09/12/19 10/06/19 Rx FreeStyle [place] 14 Day [place] #7 ea NS 09/21/19 10/05/19 Rx diphenhydramine HCl [Benadryl 25 mg PO UD 10/05/19 10/06/19 History Allergy] guaifenesin [Mucinex] 600 mg PO UD 10/05/19 10/06/19 History loperamide [Imodium A-D] 2 mg PO Q6H PRN 10/05/19 10/06/19 History potassium chloride 20 meq PO QAM 10/05/19 10/06/19 History sennosides 8.6 mg PO DAILY PRN 10/05/19 10/06/19 History Patient History Medical History (Updated 10/08/19 @ 11:54 by Lalita Villatoro MD) Anemia (Chronic) CHF (congestive heart failure) CKD (chronic kidney disease), stage III (Chronic) Diabetes (Chronic) Diabetes mellitus, type 2 Difficult airway for intubation Eye abnormality ANUERYSSM BEHIND BOTH EYES - HAS SEEN RETINOLOGIST GERD (gastroesophageal reflux disease) History of CVA (cerebrovascular accident) (Chronic) Hx of Lyme disease Hyperlipidemia (Chronic) Hypertension (Chronic) Hypertension Mitral regurgitation (Chronic) Morbid obesity with BMI of 40.0-44.9, adult (Chronic) Nonischemic cardiomyopathy (Chronic) Surgical History Hx of colonoscopy Hx of eye surgery Hx of left cataract extraction Hx of tonsillectomy Hx of tubal ligation S/P cardiac catheterization 10 YR AGO [facility] Family History Father Family history of diabetes mellitus Aunt Family history of diabetes mellitus Uncle Family history of diabetes mellitus Brother Family history of diabetes mellitus Brother Family history of diabetes mellitus Other Alzheimer disease Coronary heart disease Social History Preferred Language: Upper Sorbian Communication Ability: Effective Dry Wall Finisher Required: No Beliefs That Will Affect Care: None Current Living Situation: Spouse Other Information That Helps Us Care for You: No Feels Safe at Home: Yes Safety Concerns: Feels Safe At This Time Smoking Status: Never smoker Second Hand Exposure: No ; Hx Alcohol Use: Yes Alcohol type: wine Hx Substance Use: No Review of Systems Review of Systems: All systems reviewed & are unremarkable except as noted in HPI & below Physical Exam Constitutional: WD/WN, vitals as above well developed and well nourished; no acute distress Eyes: PERRL, conjunctivae normal, anicteric sclerae ENMT: external ear and nose normal, oropharynx normal Ears: no hearing impairment Neck: trachea midline Respiratory: normal respiratory effort, lungs clear to auscultation no cough Auscultation: no crackles, no rales and no wheezes Cardiovascular: RRR, no murmur, no edema Gastrointestinal (Abdomen): normal bowel sounds, soft, nontender, no hepatosplenomegaly Percussion/Palpation: abdomen nontender, no guarding and abdomen not rigid Musculoskeletal: Extremities: extremities normal to inspection Gait: normal gait Skin: no rashes, warm and dry Neurologic: moves all extremities and awake Psychiatric: A+Ox3, euthymic affect Results & Data Vital Signs (Past 12 Hours) Vital Signs Temp Pulse Pulse Pulse Resp BP BP 10/08/19 07:35 36.4 C L 63 18 156/78 H 10/08/19 04:04 36.6 C 92 H 18 123/74 10/08/19 03:35 61 10/08/19 00:21 63 10/07/19 23:39 36.8 C 64 16 144/69 H Pulse Ox Pulse Ox 10/08/19 07:35 93 10/08/19 04:04 92 10/08/19 03:35 90 10/08/19 00:21 91 10/07/19 23:39 96 PG Care Time/CCT Total # of Minutes Spent Total Time Spent with Patient: Total time spent is greater than 50% in coordination of care (as documented) at patient's floor/unit and/or counseling patient: Coding Level of Care Code 68746 Inpt Consult Level 5 Diagnoses Acute kidney injury N17.9 Anemia D64.9 Anemia type: unspecified type Type 2 diabetes mellitus with complications E11.8 Acute cholecystitis K81.0 Primary hyperparathyroidism E21.0 Obesity E66.9 Nonischemic cardiomyopathy I42.8 (1) Anemia Anemia type: unspecified type Qualified Code(s): D64.9 - Anemia, unspecified
[2019-10-08] MEDS: CIPROFLOXACIN / D5W 400 MG/200 ML BAG IV SCH (16:43)
[2019-10-08] MEDS: HEPARIN SOD 5,000 UNIT/0.5 ML VIAL SQ SCH (20:38)
[2019-10-09] MEDS: metroNIDAZOLE 500 MG/100 ML BAG IV SCH ×2 (01:00→08:08)
[2019-10-09 06:04] LABS: Hematocrit (blood only) 24.1 % (37-47); Hemoglobin 7.6 g/dL (12.0-16.0); Mean Corpuscular Hemoglobin 27.5 pg (25-34); Mean Corpuscular Hgb Conc 31.5 g/dL (32-36); Mean Corpuscular Volume 87.3 fL (80-100); Mean Platelet Volume 9.4 fL (7.4-10.4); Platelet Count 241 K/uL (130-400); RDW Coefficient of Variation 14.9 % (11.5-14.5); RDW Standard Deviation 47.3 fL (36.4-46.3); Red Blood Count 2.76 M/uL (4.2-5.4); White Blood Count 8.02 K/uL (4.8-10.8)
[2019-10-09 06:51] LABS: BUN Creatinine Ratio 17.5 (10-20); Calcium 9.1 mg/dl (8.5-10.1); Creatinine Clr Calc Pharmacy 27.8 ml/min; Est GFR (African American) 21.1; Est GFR (Non-African American) 18.2; Phosphorus 2.8 mg/dl (2.5-4.9); Potassium 3.5 mmol/L (3.5-5.1)
[2019-10-09] MEDS: ONDANSETRON INJ 2 MG/ML 2 ML VIAL IV PRN (07:45)
[2019-10-09] MEDS: carvediloL 25 MG TAB PO SCH ×2 (08:07→21:32)
[2019-10-09] MEDS: HydrALAZINE TAB 50 MG TAB PO SCH ×3 (08:07→21:32)
[2019-10-09] MEDS: PANTOprazole 40 MG TAB PO SCH (08:07)
[2019-10-09] MEDS: INSULIN ASPART 100 UNITS/ML 3 ML PEN SC SCH ×4 (08:08→21:34)
[2019-10-09] MEDS: HEPARIN SOD 5,000 UNIT/0.5 ML VIAL SQ SCH ×2 (08:08→21:32)
[2019-10-09] MEDS: INSULIN GLARGINE SOLOSTAR 100 UNITS/ML 3 ML PEN SQ SCH ×2 (08:10→21:33)
[2019-10-09] MEDS ORDERED: FUROSEMIDE 40 MG TAB PO ONE (09:17)
--- NOTE | 2019-10-09 09:38 | Nephrology Progress Note ---
Date of Service October 09, 2019 Assessment & Plan (1) Acute kidney injury: Mrs. 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 Baseline Cr 2.5 w/ moderate proteinuria. Admitted w/ acute cholecystitis. s/p lap odalis 10/07/19. Developed TANYA and progressive HTN following surgery. TANYA due to hypotension, anemia and mild intravascular volume contraction * Cr is trending down. Patient is nonoliguric. Electrolyte balance remains acceptable. Will monitor * Continue to hold diuretics (2) Hypertension: * Continue Carvedilol. Hydralazine dose was increased yesterday. Patient does have IV Metoprolol for PRN use (3) Anemia: * Monitor H&H. CATHIE administered yesterday. 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 Reyna was seen & examined in her hospital room this morning. She c/o mild incisional discomfort but reports that she is now tolerating small portions of her diet. Diuretics are being held. Mrs. Reyna currently denies dyspnea, LE swelling, flank discomfort or uremic symptoms Review of Systems Constitutional: no fever Eyes: no problem reported Ear, Nose, Mouth, Throat: no problem reported Respiratory: no cough and no dyspnea Cardiovascular: no chest pain, no palpitations and no edema Gastrointestinal: no nausea, no vomiting and no diarrhea/loose stools Genitourinary: no dysuria and no hematuria Musculoskeletal: no back pain Integumentary: no rash Neurologic: no falls and no confusion Physical Exam Constitutional: not in distress Eyes: PERRL, conjunctivae normal, anicteric sclerae ENMT: external ear and nose normal, oropharynx normal Neck: trachea midline, no thyromegaly Respiratory: normal respiratory effort, lungs clear to auscultation Cardiovascular: RRR, no murmur, no edema Gastrointestinal (Abdomen): normal bowel sounds, soft, nontender, no hepatosplenomegaly Musculoskeletal: Extremities: no cyanosis Skin: no rashes, warm and dry Neurologic: awake; not confused Results & Data ([facility]) Vital Signs (Past 12 Hours) Vital Signs Temp Pulse Pulse Resp BP Pulse Ox 10/09/19 07:51 36.8 C 72 18 201/81 H 90 10/09/19 03:16 36.9 C 66 18 169/63 H 94 10/08/19 22:55 36.8 C 63 18 155/67 H 97 Laboratory Results Laboratory Tests 10/09/19 10/09/19 05:54 05:54 WBC 8.02 Hgb 7.6 L Hct 24.1 L Plt Count 241 Sodium 142 Potassium 3.5 Chloride 113 H Carbon Dioxide 25 BUN 47 H Creatinine 2.66 H D Glucose 119 H PG Care Time/CCT Total # of Minutes Spent Total Time Spent with Patient: Total time spent is greater than 50% in coordination of care (as documented) at patient's floor/unit and/or counseling patient: Coding Level of Care Code 58173 Subseq Hosp Care Lvl 3 Diagnoses Acute kidney injury N17.9 Hypertension I10 Hypertension type: essential hypertension Anemia D64.9 Anemia type: unspecified type Acute cholecystitis K81.0 Type 2 diabetes mellitus with complications E11.8 Primary hyperparathyroidism E21.0 Obesity E66.9 Nonischemic cardiomyopathy I42.8 (1) Anemia Anemia type: unspecified type Qualified Code(s): D64.9 - Anemia, unspecified (2) Hypertension Hypertension type: essential hypertension Qualified Code(s): I10 - Essential (primary) hypertension
--- NOTE | 2019-10-09 10:46 | Pharmacy Report ---
Pharmacy Glycemic Short Note 2 - Date of Service October 09, 2019 - Glycemic Short BSG Results (Last 24 hours): 10/08/19 10/08/19 10/08/19 11:41 16:12 20:32 Glucose POC Glucose 162 H 159 H 161 H 10/09/19 10/09/19 05:54 06:56 Glucose 119 H POC Glucose 126 H OUTPATIENT ANTIDIABETIC REGIMEN: * Insulin glargine 10-20 units SQ BID * Aspart 1-15 units TIDM with meals * A1c = 8.2% (01/21/19) ASSESSMENT: * Patient now POD #2 s/p laparoscopic cholecystectomy * T2DM * BSGs ranging 149-161 mg/dL over past 24 hours * Fasting BSG of 126 mg/dL this morning * Patient receiving ciprofloxacin and metronidazole for cholecystitis PLAN FOR INPATIENT GLYCEMIC CONTROL * Basal insulin - continue * Lantus scale BID (see EHR for details) * Bolus insulin - continue * NovoLog per scale ACHS or Q6hrs while NPO * Goal Range: Low 100 mg/dL - High 140 mg/dL * Correction Factor: 20 mg/dL/unit * Nutritional / Prandial insulin per carb ratio of 1 unit per 7 grams CHO consumed PLAN FOR DISCHARGE: * HbA1c of 8.2% is within the patient's goal range 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
[2019-10-09] MEDS ORDERED: FUROSEMIDE 40 MG TAB PO SCH (17:00)
--- NOTE | 2019-10-09 17:16 | Hospitalist Progress Note ---
Date of Service October 09, 2019 Assessment & Plan (1) Acute cholecystitis: With fever, borderline leukocytosis, nonbloody nausea/vomiting/diarrhea x5 days prior to admission. With mildly elevated AST and ALT. CT abdomen/pelvis with cholelithiasis and no other abnormalities HIDA positive for acute cholecystitis -Now s/p lap odalis on 10/06, POD 2 - pain well controlled, no nausea LFTs have returned to normal Remains afebrile -Appreciate Surgery management -Advance diet today to DM 2, low-sodium, tolerating well -continue IV CIpro and Flagyl-length of course to be determined as per surgery's wishes but can likely discontinue at the time of discharge -pain control post-op but given profound lethargy and severe hypoxia with sedating meds--> dc all opioids and give Toradol only and tylenol -Follow CBC, electrolytes and renal function, LFTs -Follow-up with Dr. Tate [facility] in 2 weeks at [facility] (2) Nausea vomiting and diarrhea: as above 2/2 acute odalis, was resolved, but had some nausea with dry he aves after a coughing spell on the morning of 10/07 -Zofran as needed Stool studies for the diarrhea were canceled as she is no longer having any diarrhea since having her gallbladder removed (3) Nocturnal hypoxemia: With profound nocturnal hypoxemia on overnight pulse oximetry here Average pulse ox overnight on room air was 81% with a low of 46% She had almost 6 hours of pulse ox under 88% through the night -Patient is willing to trial CPAP tonight with 2 L O2 to bleed in, however she is fairly adamant that she will not use his CPAP at home and when told that she needs to have a formal sleep study as an outpatient, she would not agree to that so far -If unwilling to use CPAP, she did say she is willing to use O2 via nasal cannula both in the hospital and at home -Case management will need to arrange for home O2 at nighttime -Ordered continuous pulse ox for here at nighttime to help determine how much oxygen she will need while sleeping-RT can titrate will make sure she has it on discharge (4) Acute metabolic encephalopathy: Secondary initially to a single dose of IV ativan 0.5mg given on evening of 10/05 had profound hypoxia to the 50s and unresponsive except to sternal rub, was given flumazenil with some improvement Then with significant lethargy and persistent mild hypoxia on the day of her surgery 10/06 secondary to anesthesia and oxycodone, but improved from the evening of 10/05 Mental status much improved on 10/07 and 10/08 As above, has severe hypoxemia with sleeping which is also likely contributing No focal neuro deficits on examination Of note, was a difficult intubation as per Surgery Suspect is Pickwick[place], would avoid all sedating medications as above -Acute kidney injury may also be playing a role (5) TANYA (acute kidney injury): Creatinine baseline around 2.5 and is 3.0 on admission from prerenal TANYA from GI losses; up again to 3.29 on 10/07 down to 2.66 today, gave one dose of Lasix 40mg PO, she normally takes BID euvolemic, no need for fluids -Needs improved BP control-increased hydralazine to TID, still high -Follow BMP in the morning -Appreciate nephrology recommendations (6) Acute respiratory failure with hypoxia: Had mild hypoxia in the ER and had to be placed on 2 L nasal cannula in ER, then with profound hypoxia as above with sedating medication Chest x-ray is normal on admission and repeat on 10/06 with mild pleural effusions COVID 19 test is negative Has no history of lung disease but did have a bad viral pneumonia requiring intubation and ventilation in 2019 and may have some chronic lung injury from that? Suspect that she has chronic hypoxia given the overnight pulse ox as above -Continue supplemental O2 to keep pulse ox greater than 92%-when she is awake, she does not need any O2 (7) Acute dehydration: As above Hydrating -Follow BMP -Holding home diuretics (8) Anemia: Hemoglobin slightly lower than baseline at 8.8 on admission -baseline is around 9-10 Hgb today even lower status post surgery at 7.6 No GI bleeding that is obvious Fe studies consistent with chronic disease B12/Folate normal Likely secondary to anemia of chronic kidney disease -Follow CBC -Nephrology ordered 1 dose of Epogen 10/07 (9) Nonischemic cardiomyopathy: Now resolved, thought to be secondary to Avandia in the past (10) CKD (chronic kidney disease), stage III: As above, baseline creatinine 2.5 CKD stage 3-4 -Avoid nephrotoxins -renally dose meds when appropriate -follow BMP (11) Diabetes: With hyperglycemia here secondary to acute stress response and illness, now improving -Continue Lantus and insulin Pharmacy glycemic control consult placed (12) Hypertension: With hypertensive urgency in the ER as she was not able to tolerate taking her blood pressure medicines with the nausea and vomiting Improved after taking po meds but BP still elevated today -continue home carvedilol 50 mg p.o. twice daily -Increased hydralazine to 50 mg p.o. 3 times daily, gave one dose of Lasix -Can give IV hydralazine as needed (13) Diastolic CHF: Chronic diastolic CHF Was hypovolemic on admission, now euvolemic gave one dose of Lasix, check BMP in AM Blood pressure control (14) CAD (coronary artery disease): Nonobstructive CAD as per cardiac catheterization 2009 No chest pain at this time and troponin is in the normal range at 0.023 ECG with normal sinus rhythm and T wave inversions in leads II and III unchanged from previous -Continue home carvedilol, but holding Plavix due to recent surgery-need to discuss with surgery when okay to restart (15) History of CVA (cerebrovascular accident): Left basal ganglia in 2017 -restart Plavix when ok with Surgery not on statin due to allergy/adverse rxn (16) Plantar fasciitis: Right foot with recent plantar fasciitis most likely Foot pain now resolved but is not ambulating much X-ray negative from recent ER visit (17) Cholelithiasis: Noted on CT scan as above-now status post lap cholecystectomy (18) DVT prophylaxis: Will start heparin SQ today as is postop day #1 Disposition-continued stay on PCU PT/OT consults pending Admission and Anticipated Discharge Date Admission Date: October 06, 2019 Subjective patient says her abdominal pain is minimal her breathing is stable, drops her sats at night or when sleeping during the day she refuses to consider CPAP, willing to try nocturnal oxygen reviewed chart d/w Dr. Vance, appreciate his input reviewed labs, WBC normal, Hb down to 7.6, Cr down to 2.66, electrolytes stable Review of Systems Review of Systems: All systems reviewed & are unremarkable except as noted in HPI & below Physical Exam Constitutional: well developed and + obese; no acute distress Eyes: PERRL, conjunctivae normal, anicteric sclerae ENMT: external ear and nose normal, oropharynx normal Neck: trachea midline, no thyromegaly Respiratory: normal respiratory effort, lungs clear to auscultation Auscultation: + diminished lung sounds (bases) Cardiovascular: RRR, no murmur, no edema Gastrointestinal (Abdomen): normal bowel sounds, soft, nontender, no hepatosplenomegaly Musculoskeletal: no cyanosis or clubbing, extremities motor strength 5/5 Skin: no rashes, warm and dry Neurologic: patellar DTR's 2+ bilat, sensation intact and PERRL, EOMI, accommodation nl, no face palsy, no dysarthria Psychiatric: A+Ox3, euthymic affect Lymphatic: no cervical or axillary lymphadenopathy Results & Data Results & Data ([facility]) Vital Signs (Past 12 Hours) Vital Signs Temp Pulse Pulse Resp BP BP Pulse Ox 10/09/19 16:12 67 10/09/19 15:25 36.8 C 64 19 166/79 H 97 10/09/19 11:57 37.0 C 70 18 180/69 H 95 10/09/19 08:25 68 10/09/19 07:51 36.8 C 72 18 201/81 H 90 Laboratory Results Laboratory Results - last 24 hr 10/08/19 10/09/19 10/09/19 20:32 05:54 05:54 WBC 8.02 RBC 2.76 L Hgb 7.6 L Hct 24.1 L MCV 87.3 MCH 27.5 MCHC 31.5 L RDW Std Deviation 47.3 H RDW Coeff of Braeden 14.9 H Plt Count 241 MPV 9.4 Sodium 142 Potassium 3.5 Chloride 113 H Carbon Dioxide 25 Anion Gap 4.0 BUN 47 H Creatinine 2.66 H D Est Cr Clr Drug Dosing 27.8 Est GFR ( Amer) 21.1 Est GFR (Non-Af Amer) 18.2 BUN/Creatinine Ratio 17.5 Glucose 119 H POC Glucose 161 H Calcium 9.1 Phosphorus 2.8 Albumin 2.0 L 10/09/19 10/09/19 10/09/19 06:56 11:31 16:16 WBC RBC Hgb Hct MCV MCH MCHC RDW Std Deviation RDW Coeff of Braeden Plt Count MPV Sodium Potassium Chloride Carbon Dioxide Anion Gap BUN Creatinine Est Cr Clr Drug Dosing Est GFR ( Amer) Est GFR (Non-Af Amer) BUN/Creatinine Ratio Glucose POC Glucose 126 H 191 H 134 H Calcium Phosphorus Albumin Medications Administered Current Inpatient Medications Acetaminophen (Tylenol) 650 mg PO Q4H PRN PRN Reason: Pain or Fever Stop: 11/05/19 10:17 Carvedilol (Coreg) 50 mg PO BID [facility] Stop: 11/05/19 08:59 Last Admin: 10/09/19 08:07 Dose: 50 mg Documented by: Ciprofloxacin (Cipro) 500 mg PO Q18H JACE; Protocol Stop: 10/19/19 16:59 Dextrose (Dextrose 50%) 25 - 50 ml IV UD PRN; Protocol PRN Reason: Hypoglycemia Protocol Stop: 11/05/19 10:17 Glucagon (Glucagen) 1 mg SQ UD PRN; Protocol PRN Reason: Hypoglycemia Protocol Stop: 11/05/19 10:17 Glucose (Dex4 Glucose) 4 - 8 tabs PO UD PRN; Protocol PRN Reason: Hypoglycemia Protocol Stop: 11/05/19 10:17 Glucose (Glucose 40%) 15 - 30 gm PO UD PRN; Protocol PRN Reason: Hypoglycemia Protocol Stop: 11/05/19 10:17 Heparin Sodium (Porcine) (Heparin Sodium (Porcine)) 5,000 units SQ Q12 JACE Stop: 11/07/19 20:59 Last Admin: 10/09/19 08:08 Dose: 5,000 units Documented by: Hydralazine HCl (Hydralazine Hcl) 10 mg IV Q8H PRN PRN Reason: SBP>180 Stop: 11/05/19 08:47 Hydralazine HCl (Apresoline) 50 mg PO TID [facility] Stop: 11/07/19 13:59 Last Admin: 10/09/19 13:30 Dose: 50 mg Documented by: Insulin Aspart (Novolog Flexpen) 0 units SC ACHS [facility] Stop: 11/06/19 16:29 Last Admin: 10/09/19 12:36 Dose: 11 units Documented by: Insulin Glargine (Lantus Solostar Pen) 0 units SQ BID [facility]; Protocol Stop: 11/05/19 20:59 Last Admin: 10/09/19 08:10 Dose: 10 units Documented by: Ketorolac Tromethamine (Toradol) 15 mg IV Q6H PRN PRN Reason: Pain Stop: 10/12/19 15:05 Last Admin: 10/08/19 01:14 Dose: 15 mg Documented by: Metronidazole (Flagyl) 500 mg PO Q8H JACE; Protocol Stop: 10/19/19 15:59 Miscellaneous (Carbohydrates For Hypoglycemia) 15 - 30 gm PO UD PRN PRN Reason: Hypoglycemia Protocol Stop: 11/05/19 10:17 Miscellaneous Information (Consult Glycemic Management Pharmacy) 1 ea N/A UD PRN; Protocol PRN Reason: Consult Stop: 11/05/19 10:47 Ondansetron HCl (Zofran) 4 mg IV Q6H PRN PRN Reason: Nausea Stop: 11/05/19 10:17 Last Admin: 10/09/19 07:45 Dose: 4 mg Documented by: Pantoprazole Sodium (Protonix) 40 mg PO QAM JACE Stop: 11/05/19 10:17 Last Admin: 10/09/19 08:07 Dose: 40 mg Documented by: PG Care Time/CCT Total # of Minutes Spent Total Time Spent with Patient: Total time spent is greater than 50% in coordination of care (as documented) at patient's floor/unit and/or counseling patient: Coding Level of Care Code 89708 Subseq Hosp Care Lvl 3 Diagnoses Acute cholecystitis K81.0 Nausea vomiting and diarrhea R11.2; R19.7 Nocturnal hypoxemia G47.34 Acute metabolic encephalopathy G93.41 TANYA (acute kidney injury) N17.9 Acute respiratory failure with hypoxia J96.01 Acute dehydration E86.0 Anemia D64.9 Anemia type: unspecified type Nonischemic cardiomyopathy I42.8 CKD (chronic kidney disease), stage III N18.3 Diabetes E11.9; Z79.4 Diabetes mellitus complication status: without complication Diabetes mellitus fpc insulin use: with fpc use Diabetes mellitus type: type 2 Hypertension I10 Hypertension type: essential hypertension Diastolic CHF I50.30 CAD (coronary artery disease) I25.10 History of CVA (cerebrovascular accident) Z86.73 Plantar fasciitis M72.2 Cholelithiasis K80.20 Biliary obstruction: without biliary obstruction Cholecystitis presence: without cholecystitis Cholelithiasis location: gallbladder DVT prophylaxis Z29.9 (1) Diabetes Diabetes mellitus complication status: without complication Diabetes mellitus fpc insulin 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 Diabetes mellitus type: type 2 Qualified Code(s): E11.9 - Type 2 diabetes mellitus without complications; 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
[2019-10-09] MEDS: metroNIDAZOLE 500 MG TAB PO SCH (17:17)
[2019-10-09] MEDS: CIPROFLOXACIN 500 MG TAB PO SCH (17:17)
[2019-10-10] MEDS: metroNIDAZOLE 500 MG TAB PO SCH ×4 (00:53→23:47)
[2019-10-10 06:49] LABS: Hematocrit (blood only) 24.7 % (37-47); Hemoglobin 7.8 g/dL (12.0-16.0); Mean Corpuscular Hemoglobin 27.5 pg (25-34); Mean Corpuscular Hgb Conc 31.6 g/dL (32-36); Mean Platelet Volume 9.8 fL (7.4-10.4); Platelet Count 241 K/uL (130-400); RDW Standard Deviation 47.7 fL (36.4-46.3); Red Blood Count 2.84 M/uL (4.2-5.4); White Blood Count 8.43 K/uL (4.8-10.8)
[2019-10-10 07:15] LABS: BUN Creatinine Ratio 16.6 (10-20); Calcium 9.1 mg/dl (8.5-10.1); Creatinine Clr Calc Pharmacy 30.8 ml/min; Est GFR (African American) 23.1; Est GFR (Non-African American) 19.9; Potassium 3.4 mmol/L (3.5-5.1)
[2019-10-10] MEDS: HydrALAZINE TAB 50 MG TAB PO SCH ×3 (08:13→21:27)
[2019-10-10] MEDS: carvediloL 25 MG TAB PO SCH ×2 (08:13→21:27)
[2019-10-10] MEDS: HEPARIN SOD 5,000 UNIT/0.5 ML VIAL SQ SCH ×2 (08:14→21:27)
[2019-10-10] MEDS: INSULIN GLARGINE SOLOSTAR 100 UNITS/ML 3 ML PEN SQ SCH ×2 (08:14→21:29)
[2019-10-10] MEDS: PANTOprazole 40 MG TAB PO SCH (08:15)
[2019-10-10] MEDS: INSULIN ASPART 100 UNITS/ML 3 ML PEN SC SCH ×4 (08:16→21:28)
[2019-10-10] MEDS: POTASSIUM CHLORIDE 20 MEQ TABCR PO SCH ×2 (09:22→21:27)
--- NOTE | 2019-10-10 09:54 | Nephrology Progress Note ---
Date of Service October 10, 2019 Assessment & Plan (1) Acute kidney injury: Mrs. 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 Baseline Cr 2.5 w/ moderate proteinuria. Admitted w/ acute cholecystitis. s/p lap odalis 10/07/19. Developed TANYA and progressive HTN following surgery. TANYA due to hypotension, anemia and mild intravascular volume contraction * TANYA has resolved. Creatinine is back to baseline. Patient is nonoliguric. Will monitor * Mild hypokalemia. KCl 20 mEq po BID started by primary service * Recommend limiting/avoiding NSAIDS (ie., Toradol) if possible (2) Hypertension: * Continue Carvedilol and Hydralazin. * Patient does have IV Metoprolol for PRN use * Will resume outpatient dose of Furosemide 40 mg BID to improve BP control (3) Anemia: * Hgb mildly improved. Will continue to monitor. CATHIE administered 10/08/19. * If Hgb trends down, consider blood transfusion (4) Acute cholecystitis: (5) Type 2 diabetes mellitus with complications: (6) Primary hyperparathyroidism: (7) Obesity: (8) Nonischemic cardiomyopathy: Admission and Anticipated Discharge Date Admission Date: October 06, 2019 Subjective Mrs. Reyna was seen & examined in her hospital room this morning. She currently denies dyspnea, LE swelling, flank discomfort or uremic symptoms. She is tolerating her diet without GI upset. Mrs. Reyna's SBP has been 150 - 200 mm Hg. She is net 5L volume + since admission Review of Systems Constitutional: no fever Eyes: no problem reported Ear, Nose, Mouth, Throat: no problem reported Respiratory: no cough and no dyspnea Cardiovascular: no chest pain, no palpitations and no edema Gastrointestinal: no nausea, no vomiting and no diarrhea/loose stools Genitourinary: no dysuria and no hematuria Musculoskeletal: no back pain Integumentary: no rash Neurologic: no falls and no confusion Physical Exam Constitutional: not in distress Eyes: PERRL, conjunctivae normal, anicteric sclerae ENMT: external ear and nose normal, oropharynx normal Neck: trachea midline, no thyromegaly Respiratory: normal respiratory effort, lungs clear to auscultation Cardiovascular: RRR, no murmur, no edema Gastrointestinal (Abdomen): normal bowel sounds, soft, nontender, no hepatosplenomegaly Musculoskeletal: Extremities: no cyanosis Skin: no rashes, warm and dry Neurologic: awake; not confused Results & Data ([facility]) Vital Signs (Past 12 Hours) Vital Signs Temp Pulse Resp BP BP Pulse Ox 10/10/19 07:46 36.8 C 71 19 175/74 H 97 10/10/19 02:55 37 C 61 18 158/76 H 95 10/09/19 23:23 36.9 C 70 18 155/68 H 96 Laboratory Results Laboratory Tests 10/10/19 10/10/19 06:20 06:20 WBC 8.43 Hgb 7.8 L Hct 24.7 L Plt Count 241 Sodium 141 Potassium 3.4 L Chloride 109 H Carbon Dioxide 26 BUN 41 H Creatinine 2.47 H Glucose 173 H PG Care Time/CCT Total # of Minutes Spent Total Time Spent with Patient: Total time spent is greater than 50% in coordination of care (as documented) at patient's floor/unit and/or counseling patient: Coding Level of Care Code 88763 Subseq Hosp Care Lvl 3 Diagnoses Acute kidney injury N17.9 Hypertension I10 Hypertension type: essential hypertension Anemia D64.9 Anemia type: unspecified type Acute cholecystitis K81.0 Type 2 diabetes mellitus with complications E11.8 Primary hyperparathyroidism E21.0 Obesity E66.9 Nonischemic cardiomyopathy I42.8 (1) Hypertension Hypertension type: essential hypertension Qualified Code(s): I10 - Essential (primary) hypertension (2) Anemia Anemia type: unspecified type Qualified Code(s): D64.9 - Anemia, unspecified
[2019-10-10] MEDS: CIPROFLOXACIN 500 MG TAB PO SCH (11:01)
[2019-10-10] MEDS: FUROSEMIDE 40 MG TAB PO SCH (18:43)
[2019-10-10] MEDS: ONDANSETRON INJ 2 MG/ML 2 ML VIAL IV PRN (22:31)
--- NOTE | 2019-10-10 23:36 | Hospitalist Progress Note ---
Date of Service October 10, 2019 Assessment & Plan (1) Acute cholecystitis: With fever, borderline leukocytosis, nonbloody nausea/vomiting/diarrhea x5 days prior to admission. With mildly elevated AST and ALT. CT abdomen/pelvis with cholelithiasis and no other abnormalities HIDA positive for acute cholecystitis -Now s/p lap odalis on 10/06, POD 3 - pain well controlled, no nausea LFTs have returned to normal Remains afebrile -Appreciate Surgery management -Advanced diet today to DM 2, low-sodium yesterday, eating well, no nausea -continue IV CIpro and Flagyl- convert to PO tomorrow -pain control post-op but given profound lethargy and severe hypoxia with sedating meds--> dc all opioids and give Toradol only and tylenol -Follow CBC, electrolytes and renal function, LFTs: WBC normal -Follow-up with Dr. Tate of [facility] surgery in 2 weeks at [facility] (2) Nausea vomiting and diarrhea: as above 2/2 acute odalis, was resolved, but had some nausea with dry heaves after a coughing spell on the morning of 10/07 -Zofran as needed Stool studies for the diarrhea were canceled as she is no longer having any diarrhea since having her gallbladder removed N/V resolved after cholecystectomy (3) Nocturnal hypoxemia: With profound nocturnal hypoxemia on overnight pulse oximetry here Average pulse ox overnight on room air was 81% with a low of 46% She had almost 6 hours of pulse ox under 88% through the night nocturnal desaturation test ordered, should qualify for home oxygen will try to arrange for home (4) Acute metabolic encephalopathy: Secondary initially to a single dose of IV ativan 0.5mg given on evening of 10/05 had profound hypoxia to the 50s and unresponsive except to sternal rub, was given flumazenil with some improvement Then with significant lethargy and persistent mild hypoxia on the day of her surgery 10/06 secondary to anesthesia and oxycodone, but improved from the evening of 10/05 Mental status much improved on 10/07 and 10/08 As above, has severe hypoxemia with sleeping which is also likely contributing No focal neuro deficits on examination Of note, was a difficult intubation as per Surgery Suspect is [place]wick[place], would avoid all sedating medications as above -Acute kidney injury may also be playing a role (5) TANYA (acute kidney injury): Creatinine baseline around 2.5 and was 3.0 on admission from prerenal TANYA from GI losses; up again to 3.29 on 10/07 down to 2.47 today, will resume Lasix euvolemic, no need for fluids K 3.4, replaced -Needs improved BP control-increased hydralazine to TID, still high -Follow BMP in the morning -Appreciate nephrology recommendations (6) Acute respiratory failure with hypoxia: Had mild hypoxia in the ER and had to be placed on 2 L nasal cannula in ER, then with profound hypoxia as above with sedating medication Chest x-ray is normal on admission and repeat on 10/06 with mild pleural effusions COVID 19 test is negative Has no history of lung disease but did have a bad viral pneumonia requiring intubation and ventilation in 2019 and may have some chronic lung injury from that? Suspect that she has chronic hypoxia given the overnight pulse ox as above -Continue supplemental O2 to keep pulse ox greater than 92%-when she is awake, she does not need any O2 (7) Acute dehydration: As above Hydrating -Follow BMP -Holding home diuretics (8) Anemia: Hemoglobin slightly lower than baseline at 8.8 on admission -baseline is around 9-10 Hgb 7.8 No GI bleeding that is obvious Fe studies consistent with chronic disease B12/Folate normal Likely secondary to anemia of chronic kidney disease -Follow CBC -Nephrology ordered 1 dose of Epogen 10/07 (9) Nonischemic cardiomyopathy: Now resolved, thought to be secondary to Avandia in the past (10) CKD (chronic kidney disease), stage III: As above, baseline creatinine 2.5 CKD stage 3-4 -Avoid nephrotoxins -renally dose meds when appropriate -follow BMP (11) Diabetes: With hyperglycemia here secondary to acute stress response and illness, now improving -Continue Lantus and insulin Pharmacy glycemic control consult placed (12) Hypertension: With hypertensive urgency in the ER as she was not able to tolerate taking her blood pressure medicines with the nausea and vomiting Improved after taking po meds but BP still elevated today -continue home carvedilol 50 mg p.o. twice daily -Increased hydralazine to 50 mg p.o. 3 times daily, resume Lasix 40mg PO BID (13) Diastolic CHF: Chronic diastolic CHF Was hypovolemic on admission, now euvolemic resume Lasix 40 BID Blood pressure control (14) CAD (coronary artery disease): Nonobstructive CAD as per cardiac catheterization 2009 No chest pain at this time and troponin is in the normal range at 0.023 ECG with normal sinus rhythm and T wave inversions in leads II and III unchanged from previous -Continue home carvedilol, but holding Plavix due to recent surgery-need to discuss with surgery when okay to restart (15) History of CVA (cerebrovascular accident): Left basal ganglia in 2017 -restart Plavix when ok with Surgery not on statin due to allergy/adverse rxn (16) Plantar fasciitis: Right foot with recent plantar fasciitis most likely Foot pain now resolved but is not ambulating much X-ray negative from recent ER visit (17) Cholelithiasis: Noted on CT scan as above-now status post lap cholecystectomy (18) DVT prophylaxis: heparine SC Disposition: transfer to medical/surgica floor PT/OT consults pending Admission and Anticipated Discharge Date Admission Date: October 06, 2019 Subjective patient doing well, will transfer to medical floor as she has no complaints discussed getting repeat nocturnal desaturation study, she agreed eating well, no abdominal pain, no dyspnea, no chest pain, no fever, no nausea reviewed labs, Hb 7.6, WBC normal, Cr down to 2.4 and K 3.4, replacement given d/w Dr. Vance, kaya to resume Lasix at home dose Review of Systems Review of Systems: All systems reviewed & are unremarkable except as noted in Subjective Physical Exam Constitutional: well developed and + obese; no acute distress Eyes: PERRL, conjunctivae normal, anicteric sclerae ENMT: external ear and nose normal, oropharynx normal Neck: trachea midline, no thyromegaly Respiratory: normal respiratory effort, lungs clear to auscultation Auscultation: + diminished lung sounds (bases) Cardiovascular: RRR, no murmur, no edema Gastrointestinal (Abdomen): normal bowel sounds, soft, nontender, no hepatosplenomegaly Musculoskeletal: no cyanosis or clubbing, extremities motor strength 5/5 Skin: no rashes, warm and dry Neurologic: patellar DTR's 2+ bilat, sensation intact and PERRL, EOMI, accommodation nl, no face palsy, no dysarthria Psychiatric: A+Ox3, euthymic affect Lymphatic: no cervical or axillary lymphadenopathy Results & Data Results & Data ([facility]) Vital Signs (Past 12 Hours) Vital Signs Temp Pulse Resp BP BP Pulse Ox 10/10/19 14:56 36.9 C 64 17 154/77 H 92 10/10/19 13:00 36.8 C 67 18 167/69 H 94 Laboratory Results Laboratory Results - last 24 hr 10/10/19 10/10/19 10/10/19 06:20 06:20 07:39 WBC 8.43 RBC 2.84 L Hgb 7.8 L Hct 24.7 L MCV 87.0 MCH 27.5 MCHC 31.6 L RDW Std Deviation 47.7 H RDW Coeff of Braeden 15.0 H Plt Count 241 MPV 9.8 Sodium 141 Potassium 3.4 L Chloride 109 H Carbon Dioxide 26 Anion Gap 6.0 BUN 41 H Creatinine 2.47 H Est Cr Clr Drug Dosing 30.8 Est GFR ( Amer) 23.1 Est GFR (Non-Af Amer) 19.9 BUN/Creatinine Ratio 16.6 Glucose 173 H POC Glucose 215 H Calcium 9.1 10/10/19 10/10/19 10/10/19 11:24 17:07 20:32 WBC RBC Hgb Hct MCV MCH MCHC RDW Std Deviation RDW Coeff of Braeden Plt Count MPV Sodium Potassium Chloride Carbon Dioxide Anion Gap BUN Creatinine Est Cr Clr Drug Dosing Est GFR ( Amer) Est GFR (Non-Af Amer) BUN/Creatinine Ratio Glucose POC Glucose 214 H 118 H 232 H Calcium Medications Administered Current Inpatient Medications Acetaminophen (Tylenol) 650 mg PO Q4H PRN PRN Reason: Pain or Fever Stop: 11/05/19 10:17 Carvedilol (Coreg) 50 mg PO BID [facility] Stop: 11/05/19 08:59 Last Admin: 10/10/19 21:27 Dose: 50 mg Documented by: Ciprofloxacin (Cipro) 500 mg PO Q18H JACE; Protocol Stop: 10/19/19 16:59 Last Admin: 10/10/19 11:01 Dose: 500 mg Documented by: Dextrose (Dextrose 50%) 25 - 50 ml IV UD PRN; Protocol PRN Reason: Hypoglycemia Protocol Stop: 11/05/19 10:17 Furosemide (Lasix) 40 mg PO BID17 [facility] Stop: 08/06/20 16:59 Last Admin: 10/10/19 18:43 Dose: 40 mg Documented by: Glucagon (Glucagen) 1 mg SQ UD PRN; Protocol PRN Reason: Hypoglycemia Protocol Stop: 11/05/19 10:17 Glucose (Dex4 Glucose) 4 - 8 tabs PO UD PRN; Protocol PRN Reason: Hypoglycemia Protocol Stop: 11/05/19 10:17 Glucose (Glucose 40%) 15 - 30 gm PO UD PRN; Protocol PRN Reason: Hypoglycemia Protocol Stop: 11/05/19 10:17 Heparin Sodium (Porcine) (Heparin Sodium (Porcine)) 5,000 units SQ Q12 JACE Stop: 11/07/19 20:59 Last Admin: 10/10/19 21:27 Dose: 5,000 units Documented by: Hydralazine HCl (Hydralazine Hcl) 10 mg IV Q8H PRN PRN Reason: SBP>180 Stop: 11/05/19 08:47 Hydralazine HCl (Apresoline) 50 mg PO TID [facility] Stop: 11/07/19 13:59 Last Admin: 10/10/19 21:27 Dose: 50 mg Documented by: Insulin Aspart (Novolog Flexpen) 0 units SC ACHS [facility] Stop: 11/06/19 16:29 Last Admin: 10/10/19 21:28 Dose: 5 units Documented by: Insulin Glargine (Lantus Solostar Pen) 0 units SQ BID JACE; Protocol Stop: 11/05/19 20:59 Last Admin: 10/10/19 21:29 Dose: 20 units Documented by: Ketorolac Tromethamine (Toradol) 15 mg IV Q6H PRN PRN Reason: Pain Stop: 10/12/19 15:05 Last Admin: 10/08/19 01:14 Dose: 15 mg Documented by: Metronidazole (Flagyl) 500 mg PO Q8H JACE; Protocol Stop: 10/19/19 15:59 Last Admin: 10/10/19 18:43 Dose: 500 mg Documented by: Miscellaneous (Carbohydrates For Hypoglycemia) 15 - 30 gm PO UD PRN PRN Reason: Hypoglycemia Protocol Stop: 11/05/19 10:17 Miscellaneous Information (Consult Glycemic Management Pharmacy) 1 ea N/A UD PRN; Protocol PRN Reason: Consult Stop: 11/05/19 10:47 Ondansetron HCl (Zofran) 4 mg IV Q6H PRN PRN Reason: Nausea Stop: 11/05/19 10:17 Last Admin: 10/10/19 22:31 Dose: 4 mg Documented by: Pantoprazole Sodium (Protonix) 40 mg PO QAM [facility] Stop: 11/05/19 10:17 Last Admin: 10/10/19 08:15 Dose: 40 mg Documented by: Potassium Chloride (Klor-Con M20) 20 meq PO BID [facility] Stop: 11/09/19 08:59 Last Admin: 10/10/19 21:27 Dose: 20 meq Documented by: PG Care Time/CCT Total # of Minutes Spent Total Time Spent with Patient: Total time spent is greater than 50% in coordination of care (as documented) at patient's floor/unit and/or counseling patient: Coding Level of Care Code 58703 Subseq Hosp Care Lvl 3 Diagnoses Acute cholecystitis K81.0 Nausea vomiting and diarrhea R11.2; R19.7 Nocturnal hypoxemia G47.34 Acute metabolic encephalopathy G93.41 TANYA (acute kidney injury) N17.9 Acute respiratory failure with hypoxia J96.01 Acute dehydration E86.0 Anemia D64.9 Anemia type: unspecified type Nonischemic cardiomyopathy I42.8 CKD (chronic kidney disease), stage III N18.3 Diabetes E11.9; Z79.4 Diabetes mellitus complication status: without complication Diabetes mellitus 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 container terminal insulin use: with 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 container terminal use Diabetes mellitus type: type 2 Hypertension I10 Hypertension type: essential hypertension Diastolic CHF I50.30 CAD (coronary artery disease) I25.10 History of CVA (cerebrovascular accident) Z86.73 Plantar fasciitis M72.2 Cholelithiasis K80.20 Biliary obstruction: without biliary obstruction Cholecystitis presence: without cholecystitis Cholelithiasis location: gallbladder DVT prophylaxis Z29.9 (1) Diabetes Diabetes mellitus complication status: without complication Diabetes mellitus 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 container terminal insulin use: with 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 container terminal use Diabetes mellitus type: type 2 Qualified Code(s): E11.9 - Type 2 diabetes mellitus without complications; Z79.4 - emt intermediate (current) use of insulin (2) Anemia Anemia type: unspecified type Qualified Code(s): D64.9 - Anemia, unspecified (3) Hypertension Hypertension type: essential hypertension Qualified Code(s): I10 - Essential (primary) hypertension (4) Cholelithiasis Biliary obstruction: without biliary obstruction Cholecystitis presence: without cholecystitis Cholelithiasis location: gallbladder Qualified Code(s): K80.20 - Calculus of gallbladder without cholecystitis without obstruction
[2019-10-11] MEDS: CIPROFLOXACIN 500 MG TAB PO SCH (04:20)
[2019-10-11 06:05] LABS: BUN Creatinine Ratio 17.8 (10-20); Calcium 9.3 mg/dl (8.5-10.1); Creatinine Clr Calc Pharmacy 33.6 ml/min; Est GFR (African American) 26.1; Est GFR (Non-African American) 22.6; Potassium 3.7 mmol/L (3.5-5.1)
[2019-10-11] MEDS: PANTOprazole 40 MG TAB PO SCH (08:24)
[2019-10-11] MEDS: HydrALAZINE TAB 50 MG TAB PO SCH ×2 (08:25→12:20)
[2019-10-11] MEDS: carvediloL 25 MG TAB PO SCH (08:25)
[2019-10-11] MEDS: FUROSEMIDE 40 MG TAB PO SCH (08:25)
[2019-10-11] MEDS: metroNIDAZOLE 500 MG TAB PO SCH (08:25)
[2019-10-11] MEDS: POTASSIUM CHLORIDE 20 MEQ TABCR PO SCH (08:26)
[2019-10-11] MEDS: HEPARIN SOD 5,000 UNIT/0.5 ML VIAL SQ SCH (08:26)
[2019-10-11] MEDS: INSULIN ASPART 100 UNITS/ML 3 ML PEN SC SCH ×2 (08:30→12:32)
[2019-10-11] MEDS: INSULIN GLARGINE SOLOSTAR 100 UNITS/ML 3 ML PEN SQ SCH (08:31)
--- NOTE | 2019-10-11 09:20 | Pharmacy Report ---
Pharmacy Glycemic Short Note 2 - Date of Service October 11, 2019 - Glycemic Short BSG Results (Last 24 hours): 10/10/19 10/10/19 10/10/19 11:24 17:07 20:32 Glucose POC Glucose 214 H 118 H 232 H 10/11/19 10/11/19 05:00 08:09 Glucose 166 H POC Glucose 208 H OUTPATIENT ANTIDIABETIC REGIMEN: * Insulin glargine 10-20 units SQ BID * Aspart 1-15 units TIDM with meals * A1c = 8.2% (10/07/19) ASSESSMENT: * Patient now POD #4 s/p laparoscopic cholecystectomy * BSGs ranging 118-232 mg/dL yesterday * Patient received 40 units of basal, 37 units of prandial/correctional * Fasting BSG of 208 mg/dL this morning * Patient receiving ciprofloxacin and metronidazole for cholecystitis PLAN FOR INPATIENT GLYCEMIC CONTROL * Basal insulin - continue Lantus scale * Lantus scale BID (see EHR for details) * Bolus insulin - carb ratio tightened yesterday - will continue * NovoLog per scale ACHS or Q6hrs while NPO * Goal Range: Low 100 mg/dL - High 140 mg/dL * Correction Factor: 20 mg/dL/unit * Nutritional / Prandial insulin per carb ratio of 1 unit per 6 grams CHO consumed PLAN FOR DISCHARGE: * HbA1c of 8.2% is within the patient's goal range set by her unit supervisor (7.3-8.3%) * Continue home regimen if not experiencing frequent hypoglycemic events at home and f/u with endocrinology
--- NOTE | 2019-10-11 10:12 | Nephrology Progress Note ---
Date of Service October 11, 2019 Assessment & Plan (1) Acute kidney injury: Mrs. 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 Baseline Cr 2.5 w/ moderate proteinuria. Admitted w/ acute cholecystitis. s/p lap odalis 10/07/19. Developed TANYA and progressive HTN following surgery. TANYA due to hypotension, anemia and mild intravascular volume contraction * TANYA has resolved. Creatinine is back to baseline. Patient is nonoliguric. Will monitor * Recommend limiting/avoiding NSAIDS (ie., Toradol) if possible * No further Nephrology evaluation indicated at this time. Will sign off. Please call if further assistance is needed (2) Hypertension: * Continue Carvedilol, Hydralazine and Furosemide. No change at present (3) Anemia: * Hgb mildly improved. Elevated ferritin precludes IV iron. CATHIE administered 10/08/19 (4) Acute cholecystitis: (5) Type 2 diabetes mellitus with complications: (6) Primary hyperparathyroidism: (7) Obesity: (8) Nonischemic cardiomyopathy: Admission and Anticipated Discharge Date Admission Date: October 06, 2019 Subjective Mrs. Reyna was seen & examined in her hospital room this morning. She currently denies dyspnea, LE swelling, flank discomfort or uremic symptoms. She is tolerating her diet without GI upset. Home dose of Furosemide resumed yesterday. I&O's essentially matched overnight. Mrs. Reyna's SBP has improved to 150 - 170 mm Hg. Review of Systems Constitutional: no fever and no weakness Eyes: no problem reported Ear, Nose, Mouth, Throat: no problem reported Respiratory: no cough and no dyspnea Cardiovascular: no chest pain, no palpitations and no edema Gastrointestinal: no abdominal pain, no nausea, no vomiting and no diarrhea/loose stools Genitourinary: no dysuria and no hematuria Musculoskeletal: no back pain Integumentary: no rash Neurologic: no dizziness and no confusion Physical Exam Constitutional: not in distress Eyes: PERRL, conjunctivae normal, anicteric sclerae ENMT: external ear and nose normal, oropharynx normal Neck: trachea midline, no thyromegaly Respiratory: normal respiratory effort, lungs clear to auscultation Cardiovascular: RRR, no murmur, no edema Gastrointestinal (Abdomen): normal bowel sounds, soft, nontender, no hepatosplenomegaly Musculoskeletal: Extremities: no cyanosis Skin: no rashes, warm and dry Neurologic: awake; not confused Results & Data ([facility]) Vital Signs (Past 12 Hours) Vital Signs Temp Pulse Resp BP BP Pulse Ox 10/11/19 07:12 37.0 C 64 18 165/73 H 94 10/11/19 03:41 37.0 C 69 16 146/72 H 93 10/10/19 23:19 37.1 C 73 16 156/71 H 94 Laboratory Results Laboratory Tests 10/10/19 10/11/19 06:20 05:00 WBC 8.43 Hgb 7.8 L Hct 24.7 L Plt Count 241 Sodium 140 Potassium 3.7 Chloride 110 H Carbon Dioxide 23 BUN 40 H Creatinine 2.23 H Glucose 166 H PG Care Time/CCT Total # of Minutes Spent Total Time Spent with Patient: Total time spent is greater than 50% in coordination of care (as documented) at patient's floor/unit and/or counseling patient: Coding Level of Care Code 68599 Subseq Hosp Care Lvl 3 Diagnoses Acute kidney injury N17.9 Hypertension I10 Hypertension type: essential hypertension Anemia D64.9 Anemia type: unspecified type Acute cholecystitis K81.0 Type 2 diabetes mellitus with complications E11.8 Primary hyperparathyroidism E21.0 Obesity E66.9 Nonischemic cardiomyopathy I42.8 (1) Hypertension Hypertension type: essential hypertension Qualified Code(s): I10 - Essential (primary) hypertension (2) Anemia Anemia type: unspecified type Qualified Code(s): D64.9 - Anemia, unspecified
[2019-10-11] MEDS ORDERED: CIPROFLOXACIN 500 MG TAB PO SCH (17:00)
--- NOTE | 2019-10-13 10:52 | Discharge Summary ---
Date of Service October 11, 2019 Admission HPI Per Admitting Provider This patient is a 64-year-old female with a history of CKD stage III, HTN, nonobstructive CAD, chronic diastolic CHF, hyperlipidemia, resolved nonischemic cardiomyopathy, DM 2, primary hyperparathyroidism with hypercalcemia, and anemia of chronic disease, who presents to the ER with 5 days of nausea/vomiting and diarrhea. She started with some chills on Wednesday and then had 2 days of profuse watery nonbloody diarrhea. She then had nausea and vomiting for the next 2 days that was also nonbloody and no coffee-ground emesis or melena. She had a fever yesterday and significant right foot pain which brought her to the ER. She had an x-ray of the foot which was negative and had a documented fever in the ER. She was discharged home with some Zofran but returned as she continued to vomit at home after taking Tylenol with codeine. She came to the ER today and had bilious vomiting in the emergency room. Chemistry showed acute kidney injury in the setting of CKD, her anemia was slightly worse than usual at 8.8 for hemoglobin, and her AST was mildly elevated at 68. A lactate was normal. Her blood sugar was elevated in the 300s. A chest x-ray was negative but she had some mild hypoxemia. Her COVID test was negative. She is not eat eaten out at restaurants or had any recent sick contacts. She did have family that visited from [place] who were coughing and sneezing, but no known contacts with COVID. Principal Diagnosis Acute cholecystitis Discharge Exam Constitutional well developed and + obese; no acute distress Eyes PERRL, conjunctivae normal, anicteric sclerae ENMT external ear and nose normal, oropharynx normal Neck trachea midline, no thyromegaly Respiratory normal respiratory effort, lungs clear to auscultation Auscultation: + diminished lung sounds (bases) Cardiovascular RRR, no murmur, no edema Gastrointestinal (Abdomen) normal bowel sounds, soft, nontender, no hepatosplenomegaly Musculoskeletal no cyanosis or clubbing, extremities motor strength 5/5 Skin no rashes, warm and dry Neurologic patellar DTR's 2+ bilat, sensation intact and PERRL, EOMI, accommodation nl, no face palsy, no dysarthria Psychiatric A+Ox3, euthymic affect Lymphatic no cervical or axillary lymphadenopathy Discharge Data Allergies Allergy/AdvReac Type Severity Reaction Status Date / Time dulaglutide [From Trulicity] Allergy Intermediate Hives Verified 10/05/19 08:05 insulin lispro Allergy Visual Verified 10/05/19 08:05 [From Humalog U-100 Insulin] Disturbance erythromycin base AdvReac Intermediate Vomiting Verified 10/05/19 08:05 atorvastatin AdvReac Joint Pain Verified 10/05/19 08:05 Consultations 10/06/19 05:33 ED Decision to Admit Stat 10/06/19 16:25 Consult General Surgery Routine 10/08/19 19:56 Consult Case Management - Discharge Planning Routine Procedures Performed Operation Date: 10/07/19 07:30 Actual Procedures p Laparoscopic Cholecystectomy(Not Applicable) - London Tate MD Ordered Studies 10/06/19 05:13 CT abd pelvis wo con Urgent Hospital Course (1) Acute cholecystitis: With fever, borderline leukocytosis, nonbloody nausea/vomiting/diarrhea x5 days prior to admission. With mildly elevated AST and ALT. CT abdomen/pelvis with cholelithiasis and no other abnormalities HIDA positive for acute cholecystitis -Now s/p lap odalis on 10/06, POD 4 - pain well controlled, no nausea LFTs have returned to normal Remains afebrile -Appreciate Surgery management - tolerating DM diet, no nausea - WBC normal, LFT trended down no further antibiotics needed, she was on Cipro/Flagyl during stay but gall bladder has been removed -Follow-up with Dr. Tate of [facility] surgery in 2 weeks at [facility] specific post op instructions given (2) Nausea vomiting and diarrhea: as above 2/2 acute odalis, was resolved, but had some nausea with dry heaves after a coughing spell on the morning of 10/07 -Zofran as needed Stool studies for the diarrhea were canceled as she is no longer having any diarrhea since having her gallbladder removed (3) Nocturnal hypoxemia: With profound nocturnal hypoxemia on overnight pulse oximetry here Average pulse ox overnight on room air was 81% with a low of 46% She had almost 6 hours of pulse ox under 88% through the night initially patient was encouraged to set up home oxygen based on her nocturnal desaturation study patient refused at time of discharge strongly encouraged her to get a dedicated sleep study, would definitely benefit from CPAP and possibly oxygen discussed that untreated sleep apnea with frequent desaturations can cause resistant hypertension, irreversible pulmonary hypertension, heart failure she said she could discuss with her PCP but was still not very willing to consider it (4) Acute metabolic encephalopathy: Secondary initially to a single dose of IV ativan 0.5mg given on evening of 10/05 had profound hypoxia to the 50s and unresponsive except to sternal rub, was given flumazenil with some improvement Then with significant lethargy and persistent mild hypoxia on the day of her surgery 10/06 secondary to anesthesia and oxycodone, but improved from the evening of 10/05 Mental status much improved on 10/07 and 10/08 and stable now for three days As above, has severe hypoxemia with sleeping which is also likely contributing No focal neuro deficits on examination Of note, was a difficult intubation as per Surgery Suspect is Osmarian, would avoid all sedating medications as above -Acute kidney injury may also be playing a role but TANYA is resolved (5) TANYA (acute kidney injury): Creatinine baseline around 2.5 and is 3.0 on admission from prerenal TANYA from GI losses; up again to 3.29 on 10/07 down to 2.2 today, back on home dose of Lasix euvolemic, no need for fluids -Needs improved BP control-increased hydralazine to TID, continue on discharge -Follow BMP in the morning -Appreciate nephrology recommendations (6) Acute respiratory failure with hypoxia: Had mild hypoxia in the ER and had to be placed on 2 L nasal cannula in ER, then with profound hypoxia as above with sedating medication Chest x-ray is normal on admission and repeat on 10/06 with mild pleural effusions COVID 19 test is negative Has no history of lung disease but did have a bad viral pneumonia requiring intubation and ventilation in 2019 and may have some chronic lung injury from that? Suspect that she has chronic hypoxia given the overnight pulse ox as above -Continue supplemental O2 to keep pulse ox greater than 92%-when she is awake, she does not need any O2 (7) Acute dehydration: As above Hydrating -Follow BMP -Holding home diuretics (8) Anemia: Hemoglobin slightly lower than baseline at 8.8 on admission -baseline is around 9-10 Hgb trending up when last checked, up to 7.8 from 7.6, no signs of bleeding Fe studies consistent with chronic disease B12/Folate normal Likely secondary to anemia of chronic kidney disease -Follow CBC -Nephrology ordered 1 dose of Epogen 10/07 (9) Nonischemic cardiomyopathy: Now resolved, thought to be secondary to Avandia in the past (10) CKD (chronic kidney disease), stage III: As above, baseline creatinine 2.5 CKD stage 3-4 -Avoid nephrotoxins -renally dose meds when appropriate -follow BMP, Cr 2.2 on discharge (11) Diabetes: With hyperglycemia here secondary to acute stress response and illness, now improving -Continue Lantus and insulin Pharmacy glycemic control consult placed (12) Hypertension: With hypertensive urgency in the ER as she was not able to tolerate taking her blood pressure medicines with the nausea and vomiting Improved after taking po meds but BP still elevated today -continue home carvedilol 50 mg p.o. twice daily -Increased hydralazine to 50 mg p.o. 3 times daily, continue this on discharge back on her home dose of Lasix 40mg PO BID BP improved prior to discharge (13) Diastolic CHF: Chronic diastolic CHF Was hypovolemic on admission, now euvolemic resume Lasix 40mg PO BID (14) CAD (coronary artery disease): Nonobstructive CAD as per cardiac catheterization 2009 No chest pain at this time and troponin is in the normal range at 0.023 ECG with normal sinus rhythm and T wave inversions in leads II and III unchanged from previous -Continue home carvedilol, resume Plavix on discharge (15) History of CVA (cerebrovascular accident): Left basal ganglia in 2017 -restart Plavix on discharge not on statin due to allergy/adverse rxn (16) Plantar fasciitis: Right foot with recent plantar fasciitis most likely Foot pain now resolved but is not ambulating much X-ray negative from recent ER visit (17) Cholelithiasis: Noted on CT scan as above-now status post lap cholecystectomy Total Time Total Time Spent Total Time Spent (In Minutes): 34 minutes Total Time Includes: Examination of the Patient, Discharge Planning and Medication Reconciliation Discharge Plan Discharge Items Patient Disposition: Home - Self-Care Reason For Visit: INTRACTABLE N/V/D,TANYA Discharge Diagnosis: Acute cholecystitis Acute kidney injury, resolved Hypertension Nocturnal hypoxia Condition on Discharge: Good Goals: follow up with general surgery for post op visit follow up with PCP for blood pressure check, lab work consider getting dedicated sleep study for sleep apnea, hypoxia Activity: Per Instructions section Bathing Comment: shower okay, do not soak in tub Exercise Comment: no strenuous activity until seen in clinic Driving/Machine Use: no driving one week Weightbearing: Full weightbearing Non-emergency contact: Primary Care Provider and Surgeon Call non-emergency contact if: you have any medication questions, your symptoms worsen, your pain is not controlled and you have a fever Follow-up/Referrals: Kaushik Mcgarry III, MD [Primary Care Provider] - 10/20/19 1:50 pm (one week) London Tate MD [Physician] - 10/16/19 8:45 am (two weeks, call for appointment) Diet: Carb Consistent or DM2 and Heart Healthy Ander Attending Provider Instructions: Medications: - HYDRALAZINE: dose increased from twice a day to three times a day for blood pressure control Acute cholecystitis, status post cholecystectomy no further antibiotics needed complicated by acute kidney injury, but this is resolved, renal function at baseline for three days see instructions below for follow up with Dr. Tate use Tylenol for pain control, you became very sedated and confused with even mild narcotics, avoiding these Nocturnal hypoxia strongly recommend a sleep study untreated sleep apnea can lead to resistant hypertension, pulmonary hypertension, heart failure discuss further with Dr. Malgorzata Worthington Machine Overhauler Provider Instructions: Post-Surgical ~Discharge Instructions Activity Recommendations: - lifting limitation: (20 pounds for 3-4 weeks), - exercise/sex/sports limit: (nonstrenuous for 2 weeks), - driving or machine use limit: (none for 1 week), - Shower/bathe limit: (may shower) Diet: - Resume previous diet SPECIAL CARE INSTRUCTIONS: - May shower. Let water run over area and pat dry. - Leave steri strips on for one week. - Call the surgeon's office with any questions or concerns - - (ex. temperature higher than 101 degrees F, excessive bleeding or pain). MEDICATIONS: - Resume previous medications unless instructed otherwise by your surgeon. - Tylenol 650 mg every 6 hours as needed for mild pain FOLLOW UP VISIT: - If not already scheduled, please call the office to schedule a two week follow-up appointment. Office number Pending Studies at Discharge: No Stand-Alone Forms: [facility], Smoking Cessation Medications and DC Order Prescriptions: New hydralazine 50 mg Tablet 50 mg PO TID 30 Days Qty: 90 RF: 3 Continued (DME) pen needle, diabetic [BD Ultra-Fine Gwen Pen Needle] 32 gauge x 5/32" needle See Rx Instructions .ROUTE .MEDSUPPLY Qty: 500 RF: 3 insulin aspart U-100 [Novolog Flexpen U-100 Insulin] 100 unit/mL (3 mL) insulin pen 1 - 15 unit SC TIDM PRN (Reason: SLIDING SCALE) Qty: 15 RF: 5 carvedilol [Coreg] 25 mg tablet 50 mg PO BID Qty: 360 RF: 3 metolazone 5 mg tablet 5 mg PO DAILY PRN (Reason: Fluid Retention) Qty: 20 RF: 1 (DME) FreeStyle [place] 14 Day [place] Misc See Rx Instructions .ROUTE .MEDSUPPLY Qty: 7 RF: 3 furosemide [Lasix] 40 mg tablet 40 mg PO BID Qty: 180 RF: 3 melatonin 3 mg tablet 3 mg PO HS PRN (Reason: Sleep) RF: 0 Lantus Solostar U-100 Insulin 100 unit/mL (3 mL) insulin pen 10 - 20 unit SQ BID RF: 0 clopidogrel [Plavix] 75 mg tablet 75 mg PO QAM RF: 0 pantoprazole 40 mg tablet,delayed release (DR/EC) 40 mg PO QAM RF: 0 fluticasone propionate [Flonase Allergy Relief] 50 mcg/actuation spray,suspension 2 sprays INTNAS DAILY PRN (Reason: Nasal Congestion) RF: 0 sennosides 8.6 mg Tablet 8.6 mg PO DAILY PRN (Reason: Constipation) RF: 0 potassium chloride 10 mEq tablet extended release 20 meq PO QAM RF: 0 loperamide [Imodium A-D] 2 mg Tablet 2 mg PO Q6H PRN (Reason: Diarrhea) RF: 0 diphenhydramine HCl [Benadryl Allergy] 25 mg Tablet 25 mg PO UD RF: 0 guaifenesin [Mucinex] 600 mg Tablet Extended Release 12hr 600 mg PO UD RF: 0 Discontinued hydralazine 50 mg tablet 50 mg PO BID Qty: 180 RF: 3 Discharge Orders: Discharge Order (Routine); Ordered 10/11/19 Ordered By: Angel Arevalo/Other Patient Handouts: Managing Type 2 Diabetes Admission Data Admit Date/Time: 10/06/19 08:48 Attending Provider: Angel Mandel Admit Provider: Mariaa Alarcon Primary Care Provider: Kaushik Mcgarry III Other Providers: Kade White ; London Tate Other Interventions: Discharge Summary Assessment (RN) Last Done: 10/11/19 12:12 DC Date/Time DO NOT enter until pt leaves facility: 10/11/19 15:00 Coding Level of Care Code D/C Day Management >30 mins Diagnoses Acute cholecystitis K81.0 Nausea vomiting and diarrhea R11.2; R19.7 Nocturnal hypoxemia G47.34 Acute metabolic encephalopathy G93.41 TANYA (acute kidney injury) N17.9 Acute respiratory failure with hypoxia J96.01 Acute dehydration E86.0 Anemia D64.9 Anemia type: unspecified type Nonischemic cardiomyopathy I42.8 CKD (chronic kidney disease), stage III N18.3 Diabetes E11.9; Z79.4 Diabetes mellitus complication status: without complication Diabetes mellitus mcc 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
== END 2019-10-11 15:00 | disposition home or self-care (01) | DRG 417 ==
LOC: ED 02:44 → SUATTDRO 08:48 → 2N 08:48 → 2S 19:01 → 3W 10-10 13:00

== ENCOUNTER 2021-01-08 15:09 | Inpatient (IN) ==
[2021-01-08 16:52] LABS: Basophils # (auto) 0.03 K/uL (0-0.2); Basophils % (auto) 0.4 %; Eosinophils # (auto) 0.11 K/uL (0-0.5); Eosinophils % (auto) 1.5 %; Hematocrit (blood only) 27.4 % (37-47); Hemoglobin 8.8 g/dL (12.0-16.0); Immature Granulocytes # (auto) 0.03 K/uL (0.00-0.02); Immature Granulocytes % (auto) 0.4 %; Lymphocytes # (auto) 0.97 K/uL (1.2-3.4); Lymphocytes % (auto) 12.9 %; Mean Corpuscular Hemoglobin 26.7 pg (25-34); Mean Corpuscular Hgb Conc 32.1 g/dL (32-36); Mean Corpuscular Volume 83.3 fL (80-100); Mean Platelet Volume 10.5 fL (7.4-10.4); Monocytes # (auto) 0.51 K/uL (0.11-0.59); Monocytes % (auto) 6.8 %; Neutrophils # (auto) 5.87 K/uL (1.4-6.5); Platelet Count 249 K/uL (130-400); RDW Standard Deviation 45.8 fL (36.4-46.3); Red Blood Count 3.29 M/uL (4.2-5.4); White Blood Count 7.52 K/uL (4.8-10.8)
[2021-01-08 17:01] LABS: Partial Thromboplastin Ratio 0.8; Partial Thromboplastin Time 22.2 Seconds (21.0-31.0); Prothrombin Time 10.4 Seconds (9.0-12.0)
[2021-01-08 17:08] LABS: Alanine Aminotransferase 14 U/L (12-78); Albumin Level 2.3 gm/dl (3.4-5.0); BUN Creatinine Ratio 12.8 (10-20); Blood Urea Nitrogen 49 mg/dl (7-18); Calcium 9.8 mg/dl (8.5-10.1); Carbon Dioxide 23 mmol/L (21-32); Chloride 112 mmol/L (98-107); Est GFR (African American) 13.7 ml/min; Est GFR (Non-African American) 11.8 ml/min; Glucose 259 mg/dl (70-99); Potassium 3.6 mmol/L (3.5-5.1); Sodium 141 mmol/L (136-145)
[2021-01-08 17:11] LABS: Albumin Globulin Ratio 0.5 (0.9-2); Alkaline Phosphatase 85 U/L (45-117); Aspartate Aminotransferase 10 U/L (15-37); Bilirubin,Total 0.2 mg/dl (0.2-1); Globulin 4.3 gm/dl (2.5-4.0); Total Protein 6.6 gm/dl (6.4-8.2)
[2021-01-08 17:26] LABS: NT Pro B Type Natriuretic Pept > 35000 pg/ml (0-900); Troponin I < 0.015 ng/ml (0-0.045)
--- NOTE | 2021-01-08 17:29 | Emergency Department Note ---
Impression & Plan Pulmonary edema, Edema, TANYA (acute kidney injury) ED Provider Note NAME: SHALOM KRAMER AGE: 65 SEX: F : 1955 ARRIVES VIA: Walk-In INFORMANT: Patient, ED PROVIDER(S): Spencer Goff DO CHIEF COMPLAINT: Lower extremity edema HPI: The patient is a 65-year-old female who presented to the emergency department for an evaluation of lower extremity swelling. The patient is experience lower extremity swelling for the last month. She states symptoms have progressively been getting worse. She denies having any erythema or fever. She is not noticed any chest pain or difficulty breathing. She is not noticed any abdominal pain. The patient states that she has had no changes in her medications. She has noticed her blood pressure has been up little bit. She does have a history of diabetes as well as hypertension. She has never had renal failure but does have some history of CHF in the past. The patient also has a history of valvular heart disease. She called her primary care physician to be seen for the symptoms but instead was referred to the emergency department. ROS: See above HPI for pertinent positives & negatives. A total of 10 systems reviewed and were otherwise negative. PAST MEDICAL HISTORY: See Below PAST SURGICAL HISTORY: See Below FAMILY HISTORY: See Below SOCIAL HISTORY: See Below HOME MEDICATIONS: See Below ALLERGIES: See Below VITALS: See Below PHYSICAL EXAMINATION: GENERAL: Patient is awake alert in no acute distress patient is resting comfortably and showing no signs of anxiety EYES: The conjunctivae are clear. The pupils are round and reactive. EARS, NOSE, MOUTH AND THROAT: The nose is without any evidence of any deformity. Mucous membranes are moist. Tongue is midline. NECK: The neck is nontender and supple. RESPIRATORY: Diminished breath sounds are noted at both bases. There is no tachypnea or conversational dyspnea. CARDIOVASCULAR: Regular rate and rhythm was noted to auscultation. Systolic murmur was suggested. GASTROINTESTINAL: The abdomen is soft. Abdomen is nontender. MUSCULOSKELETAL/EXTREMITIES: There is no evidence of gross deformity full range of motion is noted in the hips and shoulders. SKIN: Pedal edema was noted bilaterally. Skin was warm and dry. NEUROLOGIC: Patient is awake alert and oriented x3. MEDICAL DECISION MAKING: The patient is a 65-year-old female who presented to the emergency department for an evaluation of lower extremity edema. The patient does have a heart murmur. She was found to have signs of volume overload with anemia and an elevated BNP. Despite this her creatinine was actually elevated compared to her baseline. The patient was treated with Lasix in the emergency department. I discussed the patient's laboratory and radiographic studies with her. She was reevaluated multiple times. On subsequent reevaluation she was mildly improved. I discussed patient's condition with the on-call [facility]. They have agreed to evaluate patient in the emergency department for further management and disposition. The patient may require further work-up such as echocardiogram to evaluate her condition further as well as guide her care. Triage Nursing notes reviewed. Prior medical records reviewed Vital Signs: reviewed and remarkable for elevated blood pressure. Differential diagnosis: Reactive airway disease, pneumonia, pneumothorax, COPD, CHF, infections, cardiac ischemia, pulmonary embolism, musculoskeletal, gastrointestinal, as well as other pathologies. ER treatment provided: See below Diagnostics interpreted by me: ECG: EKG was obtained in the emergency department. My interpretation is normal sinus rhythm at [address] and lateral ST depressions were noted. LVH was suggested by voltage criteria. This was compared to a tracing from August 052020. No significant changes were noted. Cardiac Monitoring: An order was placed for continuous cardiac monitoring. The monitor shows a rate of 67 bpm with sinus rhythm. Laboratory studies: As stated above and show below. Imaging studies: See below Consultation(s): I discussed this case with Dr. [place] who is on-call for the [facility] group. They will evaluate the patient in the emergency department. 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 RETINOLOGIST GERD (gastroesophageal reflux disease) History of CVA (cerebrovascular accident) Hx of Lyme disease Hyperlipidemia Hypertension Hypertension Mitral regurgitation Morbid obesity with BMI of 40.0-44.9, adult Nocturnal hypoxemia Nonischemic cardiomyopathy Surgical History Hx of colonoscopy Hx of eye surgery Hx of left cataract extraction Hx of tonsillectomy Hx of tubal ligation S/P cardiac catheterization 10 YR AGO [facility] Status post laparoscopic cholecystectomy (10/07/19) Dr Tate Family History Father Family history of diabetes mellitus Aunt Family history of diabetes mellitus Uncle Family history of diabetes mellitus Brother Family history of diabetes mellitus Brother Family history of diabetes mellitus Other Alzheimer disease Coronary heart disease Social History Smoking Status: Never smoker Tobacco Type: Cigarettes Second Hand Exposure: No; Hx Alcohol Use: Yes Alcohol type: wine Hx Substance Use: No Preferred Language: Czech Communication Ability: Effective 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 Beliefs That Will Affect Care: None Current Living Situation: Spouse Feels Safe at Home: Yes and No Is there a partner from a previous relationship who is making you feel unsafe now?: No Assistive Devices: Walker Allergies Allergies Allergy/AdvReac Type Severity Reaction Status Date / Time dulaglutide [From Trulicity] Allergy Intermediate Hives Verified 01/08/21 19:17 atorvastatin AdvReac Intermediate Joint Pain Verified 01/08/21 19:17 erythromycin base AdvReac Intermediate Vomiting Verified 01/08/21 19:17 insulin lispro AdvReac Intermediate Visual Verified 01/08/21 19:17 [From Humalog U-100 Insulin] Disturbance Home Meds Home Medications Medication Instructions Recorded Confirmed cholecalciferol (vitamin D3) 1,250 50,000 units PO WK 08/04/20 01/08/21 mcg (50,000 unit) capsule Previous Rx's Medication Instructions Recorded BD Ultra-Fine Gwen Pen Needle 32 #500 ea NS 05/30/19 gauge x 5/32" (pen needle, diabetic) FreeStyle [place]asta 14 Day [place] #7 ea NS 09/21/19 (flash glucose scanning reader) insulin aspart U-100 100 unit/mL 1 - 15 unit SC TIDM PRN #15 ml 12/22/19 (3 mL) subcutaneous pen (Novolog Flexpen U-100 Insulin aspart) clopidogrel 75 mg tablet (Plavix) 75 mg PO QAM #90 tab 05/23/20 carvedilol 25 mg tablet (Coreg) 50 mg PO BID #360 tab 09/19/20 furosemide 40 mg tablet (Lasix) 40 mg PO BID #180 tab 09/19/20 metolazone 5 mg tablet 5 mg PO DAILY PRN #20 tab 09/19/20 potassium chloride 10 mEq 20 meq PO QAM #200 tab 10/30/20 tablet,extended release hydralazine 50 mg tablet 50 mg PO BID #60 tab 11/01/20 pantoprazole 40 mg tablet,delayed 40 mg PO QAM #90 tab 12/19/20 release Results & Data (ED) Vital Signs Vital Signs - 24 hr 01/08/21 15:18 01/08/21 17:26 01/08/21 19:00 Temperature 36.4 C L 36.8 C Temperature Source Temporal Artery Scan Oral Pulse Rate 74 Pulse Rate [Finger] 68 67 Respiratory Rate 20 18 18 Respiratory Effort / Characteristics Non-Labored Spontaneous Non-Labored Respiratory Depth Normal Normal Blood Pressure 182/86 H Blood Pressure [Left Arm] 194/99 H 179/73 H Blood Pressure Mean 118 Blood Pressure Mean [Left Arm] 130 108 Blood Pressure Position Sitting Pulse Oximetry 94 94 94 Oxygen Delivery Method Room Air Room Air Room Air Sepsis Recent Fever Within 48 Hours No Sepsis New/Unexplained Change in Mental Status N/A Sepsis Action Taken by Nursing No Action Required Home Medications Current Medication List: was personally reviewed by me Laboratory Data Attestation: I reviewed the patient's lab results. Result diagrams: 01/08/21 16:25 01/08/21 16:25 Lab Results 01/08/21 01/08/21 01/08/21 Range/Units 16:25 16:25 16:25 WBC 7.52 (4.8-10.8) K/uL RBC 3.29 L (4.2-5.4) M/uL Hgb 8.8 L (12.0-16.0) g/dL Hct 27.4 L (37-47) % MCV 83.3 (80-100) fL MCH 26.7 (25-34) pg MCHC 32.1 (32-36) g/dL RDW Std Deviation 45.8 (36.4-46.3) fL RDW Coeff of Braeden 15.0 H (11.5-14.5) % Plt Count 249 (130-400) K/uL MPV 10.5 H (7.4-10.4) fL Immature Gran % (Auto) 0.4 % Neut % (Auto) 78.0 % Lymph % (Auto) 12.9 % Whiteside % (Auto) 6.8 % Eos % (Auto) 1.5 % Baso % (Auto) 0.4 % Neut # (Auto) 5.87 (1.4-6.5) K/uL Lymph # (Auto) 0.97 L (1.2-3.4) K/uL Whiteside # (Auto) 0.51 (0.11-0.59) K/uL Eos # (Auto) 0.11 (0-0.5) K/uL Baso # (Auto) 0.03 (0-0.2) K/uL Immature Gran # (Auto) 0.03 H (0.00-0.02) K/uL PT 10.4 (9.0-12.0) Seconds INR 1.0 (0.9-1.1) APTT 22.2 (21.0-31.0) Seconds PTT Ratio 0.8 Sodium 141 (136-145) mmol/L Potassium 3.6 (3.5-5.1) mmol/L Chloride 112 H (98-107) mmol/L Carbon Dioxide 23 (21-32) mmol/L Anion Gap 6.0 (3-11) BUN 49 H (7-18) mg/dl Creatinine 3.78 H (0.6-1.2) mg/dl Est Cr Clr Drug Dosing Not Reportable Est GFR ( Amer) 13.7 ml/min Est GFR (Non-Af Amer) 11.8 ml/min BUN/Creatinine Ratio 12.8 (10-20) Glucose 259 H (70-99) mg/dl Calcium 9.8 (8.5-10.1) mg/dl Total Bilirubin 0.2 (0.2-1) mg/dl AST 10 L (15-37) U/L ALT 14 (12-78) U/L Alkaline Phosphatase 85 (45-117) U/L Troponin I (0-0.045) ng/ml NT-Pro-B Natriuret Pep (0-900) pg/ml Total Protein 6.6 (6.4-8.2) gm/dl Albumin 2.3 L (3.4-5.0) gm/dl Globulin 4.3 H (2.5-4.0) gm/dl Albumin/Globulin Ratio 0.5 L (0.9-2) COVID-19 Eval Order 01/08/21 01/08/21 Range/Units 16:25 17:55 WBC (4.8-10.8) K/uL RBC (4.2-5.4) M/uL Hgb (12.0-16.0) g/dL Hct (37-47) % MCV (80-100) fL MCH (25-34) pg MCHC (32-36) g/dL RDW Std Deviation (36.4-46.3) fL RDW Coeff of Braeden (11.5-14.5) % Plt Count (130-400) K/uL MPV (7.4-10.4) fL Immature Gran % (Auto) % Neut % (Auto) % Lymph % (Auto) % Whiteside % (Auto) % Eos % (Auto) % Baso % (Auto) % Neut # (Auto) (1.4-6.5) K/uL Lymph # (Auto) (1.2-3.4) K/uL Whiteside # (Auto) (0.11-0.59) K/uL Eos # (Auto) (0-0.5) K/uL Baso # (Auto) (0-0.2) K/uL Immature Gran # (Auto) (0.00-0.02) K/uL PT (9.0-12.0) Seconds INR (0.9-1.1) APTT (21.0-31.0) Seconds PTT Ratio Sodium (136-145) mmol/L Potassium (3.5-5.1) mmol/L Chloride (98-107) mmol/L Carbon Dioxide (21-32) mmol/L Anion Gap (3-11) BUN (7-18) mg/dl Creatinine (0.6-1.2) mg/dl Est Cr Clr Drug Dosing Est GFR ( Amer) ml/min Est GFR (Non-Af Amer) ml/min BUN/Creatinine Ratio (10-20) Glucose (70-99) mg/dl Calcium (8.5-10.1) mg/dl Total Bilirubin (0.2-1) mg/dl AST (15-37) U/L ALT (12-78) U/L Alkaline Phosphatase (45-117) U/L Troponin I < 0.015 (0-0.045) ng/ml NT-Pro-B Natriuret Pep > 18127 H (0-900) pg/ml Total Protein (6.4-8.2) gm/dl Albumin (3.4-5.0) gm/dl Globulin (2.5-4.0) gm/dl Albumin/Globulin Ratio (0.9-2) COVID-19 Eval Order Covid19 at [facility] Administered Medications Discontinued Medications Furosemide (Furosemide 40 Mg/4 Ml Vial) 40 mg IV NOW STA Stop: 01/08/21 18:35 Last Admin: 01/08/21 19:04 Dose: 40 mg Documented by: [id number] Imaging Data Radiologist's Impression: Chest X-Ray 01/08/21 17:07 XR chest 1V portable HISTORY: Shortness of breath. leg swelling COMPARISON: Chest 08/05/2020. FINDINGS: No pneumothorax. No pleural effusions. The heart is mildly enlarged. There is progressive diffuse interstitial/vascular thickening consistent with mild interstitial pulmonary edema. No new focal lung consolidations to suggest pneumonia. IMPRESSION: Cardiomegaly with mild interstitial pulmonary edema. ACT 112: Negative or not required by law. Electronically signed by: Malik Montanez M.D. 01/08/2021 5:47 PM Discharge Plan Visit Data Chief Complaint: Swelling/Edema to Extremity Stated Complaint: SWELLING IN FEET & LOWER LEG-HEART RELATED ED Provider: Spencer Goff ED Midlevel Provider: Erick Colorado I. Discharge Problem: Pulmonary edema, Edema, TANYA (acute kidney injury) Patient Disposition: Being Evaluated by Hospitalist Forms Stand Alone Forms: My [facility] Prescriptions Prescriptions: No Action (DME) pen needle, diabetic [BD Ultra-Fine Gwen Pen Needle] 32 gauge x 5/32" needle See Rx Instructions .ROUTE .MEDSUPPLY Qty: 500 RF: 3 (DME) FreeStyle [place]asta 14 Day [place] Misc See Rx Instructions .ROUTE .MEDSUPPLY Qty: 7 RF: 3 insulin aspart U-100 [Novolog Flexpen U-100 Insulin] 100 unit/mL (3 mL) insulin pen 1 - 15 unit SC TIDM PRN (Reason: SLIDING SCALE) Qty: 15 RF: 5 clopidogrel [Plavix] 75 mg tablet 75 mg PO QAM Qty: 90 RF: 3 furosemide [Lasix] 40 mg tablet 40 mg PO BID Qty: 180 RF: 3 metolazone 5 mg tablet 5 mg PO DAILY PRN (Reason: Fluid Retention) Qty: 20 RF: 1 carvedilol [Coreg] 25 mg tablet 50 mg PO BID Qty: 360 RF: 3 potassium chloride 10 mEq tablet extended release 20 meq PO QAM Qty: 200 RF: 3 hydralazine 50 mg tablet 50 mg PO BID Qty: 60 RF: 0 pantoprazole 40 mg tablet,delayed release (DR/EC) 40 mg PO QAM Qty: 90 RF: 3 cholecalciferol (vitamin D3) 1,250 mcg (50,000 unit) capsule 50,000 units PO WK RF: 0 Referrals Referrals: Peyton An MD [Primary Care Provider] -
--- NOTE | 2021-01-08 17:48 | XRay Report ---
XR chest 1V portable HISTORY: Shortness of breath. leg swelling COMPARISON: Chest 08/05/2020. FINDINGS: No pneumothorax. No pleural effusions. The heart is mildly enlarged. There is progressive d iffuse interstitial/vascular thickening consistent with mild interstitial pulmonary edema. No new foc al lung consolidations to suggest pneumonia. IMPRESSION: Cardiomegaly with mild interstitial pulmonary edema. ACT 112: Negative or not required by law. Electronically signed by: Malik Montanez M.D. 01/08/2021 5:47 PM
[2021-01-08] MEDS ORDERED: FUROSEMIDE 40 MG/4 ML VIAL IV STA (18:34)
--- NOTE | 2021-01-08 20:03 | Ultrasound Report ---
BILATERAL LOWER EXTREMITY VENOUS DOPPLER HISTORY: Lower extremity swelling. COMPARISON STUDY: None. FINDINGS: There is normal compressibility, flow, and augmentation within the bilateral lower extremit y deep venous systems. IMPRESSION: No DVT within the right or left lower extremity. ACT 112: Negative or not required by law. Electronically signed by: Malik Montanez M.D. 01/08/2021 8:02 PM
--- NOTE | 2021-01-08 20:43 | History & Physical Report ---
Date of Service January 08, 2021 Assessment & Plan (1) Acute kidney injury superimposed on CKD: (2) Diastolic CHF: (3) CAD (coronary artery disease): (4) Type 2 diabetes mellitus with complications: (5) Anemia: (6) Hypertension: (7) Hyperlipidemia: Plan: 65-year-old female past medical history significant for DM2, CKD stage IIIb/IV, hypertension, hyperlipidemia, nonobstructive CAD, diastolic CHF, anemia of chronic disease admitted for TANYA and SOB suspected to be secondary to fluid overload. TANYA on CKD: Presents with creatinine 3.78, with baseline ~2.5 in August 2020. Given fluid overload on exam/imaging, do suspect that TANYA is secondary to cardiorenal syndrome. Will increase patient's Lasix to 40mg IV BID (from 40mg PO BID); one time dose received in ER. Repeat BMP in AM. Nephrology consulted and appreciate recommendations. CHF, nonobstructive CAD: History of diastolic CHF; with symptoms and studies suggestive of exacerbation this admission. BNP elevated to > 35,000, with mild interstitial pulmonary edema on chest x-ray. Diuretics as described above. Hold metolazone at this time. Low-sodium diet. Continue Plavix. Left foot pain: Presents with several days of intermittent stabbing left foot pain. DVT studies negative in bilateral lower extremities. Several possible etiologies, including diabetic neuropathy, gout, bony infection. Uric acid level ordered with a.m. labs. Not impossible that the patient could have gout in the first MTP given diuretic therapy at home. X-ray left foot ordered to rule out traumatic injury, bony infection. Consider medications such as gabapentin for neuropathy if evaluation is otherwise negative. DM2: Patient is on sliding scale insulin in the outpatient setting. Last recorded A1c in 10/2019 of 8.2%. Continue sliding scale insulin with low-dose Lantus twice daily. Anemia: History of, with baseline hemoglobin of ~10. Has required Epogen in the past for decreased hemoglobin in the setting of TANYA on CKD. Hemoglobin on admission of 8.8; trend daily. Hypertension: Continue home carvedilol, hydralazine. GERD: Continue home PPI. CODE STATUS: Full code FEN: Heart healthy, low-sodium, DM2 diet DVT prophylaxis: Heparin 3 times daily subcu Dispo: Med/Surg with Telemetry History of Present Illness Chief Complaint: lower extremity swelling and pain, SOB Primary Care Provider: Tariq An MD 65-year-old female past medical history significant for DM2, CKD stage IIIb/IV, hypertension, hyperlipidemia, nonobstructive CAD, diastolic CHF, anemia of chronic disease presents for about 1 week of worsening bilateral L > R lower extremity swelling with intermittent pain on the bottom of the patient's left foot with stepdown. Today she called her PCP when she started to feel short of breath with any exertion and with lying flat, and was advised to come in to the ER. She does not admit to a worsening in dietary indiscretion, and reports she tries to stay away from salt. No URI symptoms, no chest pain, no nausea or vomiting, no urinary symptoms. She admits that over the last week she has had a lot of difficulty with ambulating and getting around the house due to the stabbing pain in her foot as well as due to the swelling. In the ER, patient was noted to have a creatinine of 3.78 (baseline 2.5), and a proBNP of > 35,000. Chest x-ray showed cardiomegaly with interstitial pulmonary edema. Bilateral DVT studies negative. Patient received Lasix 40 mg IV x1. Allergies Allergy/AdvReac Type Severity Reaction Status Date / Time [facility] Allergy Intermediate Hives Verified 01/08/21 19:17 atorvastatin AdvReac Intermediate Joint Pain Verified 01/08/21 19:17 erythromycin base AdvReac Intermediate Vomiting Verified 01/08/21 19:17 insulin lispro AdvReac Intermediate Visual Verified 01/08/21 19:17 [From Humalog U-100 Insulin] Disturbance Home Medications Medication Instructions Recorded Confirmed Type BD Ultra-Fine Gwen Pen Needle 32 #500 ea NS 05/30/19 10/20/19 Rx gauge x 5/32" (pen needle, diabetic) FreeStyle [place]asta 14 Day [place] #7 ea NS 09/21/19 10/20/19 Rx (flash glucose scanning reader) insulin aspart U-100 100 unit/mL 1 - 15 unit SC TIDM PRN #15 ml 12/22/19 01/08/21 Rx (3 mL) subcutaneous pen (Novolog Flexpen U-100 Insulin aspart) clopidogrel 75 mg tablet (Plavix) 75 mg PO QAM #90 tab 05/23/20 01/08/21 Rx cholecalciferol (vitamin D3) 1,250 50,000 units PO WK 08/04/20 01/08/21 History mcg (50,000 unit) capsule carvedilol 25 mg tablet (Coreg) 50 mg PO BID #360 tab 09/19/20 01/08/21 Rx furosemide 40 mg tablet (Lasix) 40 mg PO BID #180 tab 09/19/20 01/08/21 Rx metolazone 5 mg tablet 5 mg PO DAILY PRN #20 tab 09/19/20 01/08/21 Rx potassium chloride 10 mEq 20 meq PO QAM #200 tab 10/30/20 01/08/21 Rx tablet,extended release hydralazine 50 mg tablet 50 mg PO BID #60 tab 11/01/20 01/08/21 Rx pantoprazole 40 mg tablet,delayed 40 mg PO QAM #90 tab 12/19/20 01/08/21 Rx release Past Med/Surg History Medical History (Updated 01/08/21 @ 21:58 by Carmenza Rosario DO) Anemia CHF (congestive heart failure) CKD (chronic kidney disease), stage III Diabetes Diabetes mellitus, type 2 Difficult airway for intubation Eye abnormality ANUERYSSM BEHIND BOTH EYES - HAS SEEN RETINOLOGIST GERD (gastroesophageal reflux disease) History of CVA (cerebrovascular accident) Hx of Lyme disease Hyperlipidemia Hypertension Hypertension Mitral regurgitation Morbid obesity with BMI of 40.0-44.9, adult Nocturnal hypoxemia Nonischemic cardiomyopathy Surgical History Hx of colonoscopy Hx of eye surgery Hx of left cataract extraction Hx of tonsillectomy Hx of tubal ligation S/P cardiac catheterization 10 YR AGO [facility] Status post laparoscopic cholecystectomy (10/07/19) Dr Tate Family History Father Family history of diabetes mellitus Aunt Family history of diabetes mellitus Uncle Family history of diabetes mellitus Brother Family history of diabetes mellitus Brother Family history of diabetes mellitus Other Alzheimer disease Coronary heart disease Social History (Updated 01/08/21 @ 21:45 by Carmenza Rosario DO) Smoking Status: Never smoker Tobacco Type: Cigarettes Second Hand Exposure: No; Hx Alcohol Use: No Hx Substance Use: No Preferred Language: French Communication Ability: Effective Pump Mechanic Required: No Beliefs That Will Affect Care: None Current Living Situation: Spouse Other Information That Helps Us Care for You: No Feels Safe at Home: Yes Safety Concerns: Feels Safe At This Time Assistive Devices: Glasses and Walker Review of Systems Review of Systems: All systems reviewed & are unremarkable except as noted in HPI & below Constitutional: no fever, no chills and no malaise Respiratory: + dyspnea; no cough Cardiovascular: no chest pain, no palpitations and no edema Gastrointestinal: no abdominal pain, no constipation and no diarrhea/loose stools Genitourinary: no dysuria and no hematuria Physical Exam Constitutional: well developed and + obese; not ill appearing Eyes: PERRL, conjunctivae normal, anicteric sclerae ENMT: external ear and nose normal, oropharynx normal Neck: + thick neck Respiratory: normal respiratory effort and symmetric chest movement Auscultation: + diminished lung sounds (bilateral bases; poor air movement throughout) Cardiovascular: Rate/Rhythm: regular rate and regular rhythm Heart Sounds: + murmur (systolic murmur 2/6 hear at right and left upper sternal border) Extremities: + edema (2+ bilateral LE to mid-nelson) Gastrointestinal (Abdomen): normal bowel sounds, soft, nontender, no hepatosplenomegaly Musculoskeletal: Extremities: no cyanosis and no clubbing Skin: Bilateral LE with edema as noted above. L foot plantar aspect with mildly tender callous over 1st MTP Neurologic: AAOx3, normal speech. Bilateral UE, LE, and face without sensory or motor deficits. Psychiatric: A+Ox3, euthymic affect Results & Data Results & Data ([facility]) Vital Signs (Past 12 Hours) Vital Signs Temp Pulse Pulse Resp BP BP Pulse Ox 01/08/21 19:00 67 18 179/73 H 94 01/08/21 17:26 36.8 C 68 18 194/99 H 94 01/08/21 15:18 36.4 C L 74 20 182/86 H 94 Supervising Physician Co-Signing Physician Notes Patient seen and examined, chart reviewed, case discussed with Dr. Rosario and I agree with her assessment and plan as documented above. In brief, patient is a 65yo female with history of CKD, DM, GERD, HTN and HLP, mild LVH with resolved NICM and diastolic CHF presenting with SOB, weight gain and worsening Cr. Cr of 3.78 from baseline of 2.5 On exam she is afebrikle, HD stable, NAD Skin - intact, no rashes HEENT -NC/AT, PERRL, MMM, Neck supple, no appreciable JVD Heart - +S1/S2, regular, 2/6 DIONICIO RUSB Lungs - diminished with fine crackles in bilateral bases Ext - +Edema Labs and images reviewed Hgb=8.8, Hct=27.4 BUN=49, Cr=3.78 BNP=>[id number] CXR wtih cardiomegaly and mild interstitial pulmonary edema Assessment/Plan - Suspect CHF poor perfusion leading to TANYA on CKD. Patient given Lasix 40mg IV and is urinating well Will continue diuresis Monitor renal function and electrolytes Management of DM, GERD, HTN per above Anemia is slightly lower than baseline - Hgb of 8.8. No active bleeding. continue to trend Resident Activity Tracking Resident Involvement: Resident Care Provided Care Provided: Adult Hospital Medicine (1) Anemia Anemia type: unspecified type Qualified Code(s): D64.9 - Anemia, unspecified (2) Hyperlipidemia Hyperlipidemia type: mixed hyperlipidemia Qualified Code(s): E78.2 - Mixed hyperlipidemia (3) Hypertension Hypertension type: essential hypertension Qualified Code(s): I10 - Essential (primary) hypertension
[2021-01-08] MEDS ORDERED: INSULIN GLARGINE SOLOSTAR 100 UNITS/ML 3 ML PEN SC SCH (21:00)
[2021-01-08] MEDS: INSULIN ASPART 100 UNITS/ML 3 ML PEN SC SCH (21:20)
[2021-01-08] MEDS ORDERED: GLUCAGON FOR INJ 1 MG VIAL SQ PRN (22:39)
[2021-01-08] MEDS ORDERED: ONDANSETRON INJ 2 MG/ML 2 ML VIAL IV PRN (22:39)
[2021-01-08] MEDS ORDERED: ACETAMINOPHEN 325 MG TAB PO PRN (22:39)
[2021-01-08] MEDS ORDERED: GLUCOSE 10 TABS/TUBE PO PRN (22:39)
[2021-01-08] MEDS ORDERED: GLUCOSE 40% GEL 15 GM TUBE PO PRN (22:39)
[2021-01-08] MEDS ORDERED: DEXTROSE 50% 50 ML SYRINGE IV PRN (22:39)
[2021-01-08] MEDS ORDERED: CARBOHYDRATES FOR HYPOGLYCEMIA PO PRN (22:39)
[2021-01-09] MEDS: carvediloL 25 MG TAB PO SCH ×3 (00:14→21:10)
[2021-01-09] MEDS: hydrALAZINE TAB 50 MG TAB PO SCH ×3 (00:14→21:10)
[2021-01-09] MEDS: HEPARIN SOD 5,000 UNIT/0.5 ML VIAL SQ SCH ×4 (00:14→21:25)
--- NOTE | 2021-01-09 05:17 | Billing Data ---
Date of Service January 08, 2021 Coding Level of Care Code 12142 Initial Inpt Care Lvl 3
[2021-01-09 06:42] LABS: Hematocrit (blood only) 25.4 % (37-47); Hemoglobin 8.1 g/dL (12.0-16.0); Mean Corpuscular Hemoglobin 26.9 pg (25-34); Mean Corpuscular Hgb Conc 31.9 g/dL (32-36); Mean Corpuscular Volume 84.4 fL (80-100); Mean Platelet Volume 10.4 fL (7.4-10.4); Platelet Count 224 K/uL (130-400); RDW Coefficient of Variation 15.1 % (11.5-14.5); RDW Standard Deviation 46.7 fL (36.4-46.3); Red Blood Count 3.01 M/uL (4.2-5.4); White Blood Count 5.31 K/uL (4.8-10.8)
[2021-01-09 07:22] LABS: BUN Creatinine Ratio 12.8 (10-20); Calcium 9.6 mg/dl (8.5-10.1); Creatinine Clr Calc Pharmacy 19.3 ml/min; Est GFR (African American) 14.4 ml/min; Est GFR (Non-African American) 12.4 ml/min; Potassium 3.3 mmol/L (3.5-5.1); Uric Acid 7.8 mg/dl (2.6-7.2)
[2021-01-09 07:37] LABS: Estimated Average Glucose 246 mg/dl; Hemoglobin A1C 10.2 % (4.5-5.6)
--- NOTE | 2021-01-09 07:58 | XRay Report ---
XR foot LT min 3V routine CLINICAL HISTORY: left foot pain, wound COMPARISON: Left foot radiographs September 20, 2017. FINDINGS: Alignment of the left foot is anatomic. Tarsometatarsal joints are intact. Sclerosis of th e left second metatarsal similar to prior exam. There is no acute fracture within the left foot. Ther e is no evidence for acute osteomyelitis. Mild degenerative changes within the left foot are present. IMPRESSION: No acute fracture or evidence for acute osteomyelitis within the left foot by radiography . ACT 112: Negative or not required by law. Electronically signed by: Jonathan An M.D. 01/09/2021 7:56 AM
[2021-01-09] MEDS: INSULIN ASPART 100 UNITS/ML 3 ML PEN SC SCH ×4 (08:29→21:11)
[2021-01-09] MEDS: POTASSIUM CHLORIDE CRTAB 20 MEQ TABCR PO SCH (08:32)
[2021-01-09] MEDS: CLOPIDOGREL BISULFATE 75 MG TAB PO SCH (08:32)
[2021-01-09] MEDS: PANTOprazole 40 MG TAB PO SCH (08:32)
[2021-01-09] MEDS: FUROSEMIDE 40 MG in SYRINGE 0 ML IV SCH ×2 (08:34→17:18)
[2021-01-09] MEDS: INSULIN GLARGINE SOLOSTAR 100 UNITS/ML 3 ML PEN SC SCH ×2 (08:34→21:18)
[2021-01-09] MEDS ORDERED: FUROSEMIDE 40 MG/4 ML VIAL IV SCH (09:00)
[2021-01-09] MEDS ORDERED: POTASSIUM CHLORIDE CRTAB 20 MEQ TABCR PO STA (09:56)
--- NOTE | 2021-01-09 10:26 | Ultrasound Report ---
US renal/blad retro comp CLINICAL INDICATION: Acute kidney injury. TECHNIQUE: Multiple sonographic real-time images of the kidneys and bladder were obtained. COMPARISON: None available at the time of this dictation. FINDINGS: The right kidney measures 11.2 cm in length, and the left kidney measures 11.4 cm in length. The right kidney is normal in size, contour, cortical thickness, and echogenicity. No hydronephrosis is identified. No renal lesion is identified. No perinephric fluid collection is seen. The left kidney is normal in size, contour, cortical thickness and echogenicity. No hydronephrosis i s identified. No focal renal lesion is identified. No perinephric fluid collection is seen. The bladder is partially distended. No large intraluminal mass is seen. IMPRESSION: Unremarkable renal ultrasound. ACT 112: Negative or not required by law. Electronically signed by: Angel Thompson M.D. 01/09/2021 10:24 AM
--- NOTE | 2021-01-09 10:30 | Nephrology Consultation ---
Date of Consultation January 09, 2021 Assessment & Plan (1) TANYA (acute kidney injury): Non-oliguric. Electrolytes acceptable. No emergent indiction for dialysis. Renal US requested. US/microscopy also requested. Medications appropriate for kidney function. Goals of care and potential future indications for [employer]IDES TE[employer] discussed with Delfina this AM. Clinical presentation concerning for progression of underlying CKD or possible CRS. Document strict I/O's and repeat metabolic profile tomrorow AM. (2) CKD (chronic kidney disease), stage IV: Attributed to DKD. Prior evaluation for monoclonal process negative. Advanced nephrotic range proteinuria with accelerated BP and associated hypoalbuminemia. Blood glucose control poor. Thankfully, no emergent indication for dialysis but high lifetime risk of requiring [employer]IDES TE[employer]ER. (3) Primary hyperparathyroidism: Serum calcium acceptable. Unclear why she is no longer taking prescribed medical therapy. (4) Anemia: Chronic, stable. Epogen 47319 units now. Check Iron profile with AM labs. (5) Hypertension: Avoid JEANETTE/ARB due to TANYA. Continue hydralazine and carvedilol per home regimen. Increase hydralazine PRN. Loop diuretics to encourage negative fluid balance. Consider amlodipine if BP remains elevated. History of Present Illness Reason for Consultation: TANYA/CKD Requesting Physician: Edilberto Cadet MD Attending Physician: Edilberto Cadet MD History of Present Illness Mrs. Delfina Reyna is a 65-year-old female with obesity, DMII, hypertension, primary hyperparathyroidism, and CKD. Delfina has CKD IV A3. Prior evaluation consistent with DKD. She has never had a kidney biopsy. I have seen Delfina in the CKD clinic in the past but follow up has not been consistent. She was last seen in the clinic in March 2019. However, she states that she did not follow up due to social distancing with [facility]. She was admitted to [facility] in October with acute cholecystitis and underwent uncomplicated lap odalis. TANYA noted during hospitalization attributed to prerenal physiology. Creatinine improved to baseline ~2.5 mg/dL at discharge. Delfina was seen by nephrology during the hospitalization. She notes that she did have some edema in her legs post discharge which has been persistent. Edema has been coming and going but over the past several weeks has been persistent and notably bothersome. She increased her Lasix from once daily to 40 mg twice daily but edema persisted and she presented to her PCP for evaluation who referred the patient to the ER. 40 mg IV furosemide was provided overnight and twice daily dosing continued. BP has been accelerated but she denies symptoms in this regard. Hgb A1c notable at 10.3. Albumin chronically low at 2.3. Electrolytes acceptable. PCR in March 2019 was 6.6. Delfina has not been on an JEANETTE/ARB due to history of TANYA. Serum calcium acceptable at this time. She was resting comfortably in bed this AM. Allergies Allergy/AdvReac Type Severity Reaction Status Date / Time dulaglutide [From Trulicity] Allergy Intermediate Hives Verified 01/08/21 19:17 atorvastatin AdvReac Intermediate Joint Pain Verified 01/08/21 19:17 erythromycin base AdvReac Intermediate Vomiting Verified 01/08/21 19:17 insulin lispro AdvReac Intermediate Visual Verified 01/08/21 19:17 [From Humalog U-100 Insulin] Disturbance Home Medications Medication Instructions Recorded Confirmed Type BD Ultra-Fine Gwen Pen Needle 32 #500 ea NS 05/30/19 10/20/19 Rx gauge x 5/32" (pen needle, diabetic) FreeStyle [place] 14 Day [place] #7 ea NS 09/21/19 10/20/19 Rx (flash glucose scanning reader) insulin aspart U-100 100 unit/mL 1 - 15 unit SC TIDM PRN #15 ml 12/22/19 01/08/21 Rx (3 mL) subcutaneous pen (Novolog Flexpen U-100 Insulin aspart) clopidogrel 75 mg tablet (Plavix) 75 mg PO QAM #90 tab 05/23/20 01/08/21 Rx cholecalciferol (vitamin D3) 1,250 50,000 units PO WK 08/04/20 01/08/21 History mcg (50,000 unit) capsule carvedilol 25 mg tablet (Coreg) 50 mg PO BID #360 tab 09/19/20 01/08/21 Rx furosemide 40 mg tablet (Lasix) 40 mg PO BID #180 tab 09/19/20 01/08/21 Rx metolazone 5 mg tablet 5 mg PO DAILY PRN #20 tab 09/19/20 01/08/21 Rx potassium chloride 10 mEq 20 meq PO QAM #200 tab 10/30/20 01/08/21 Rx tablet,extended release hydralazine 50 mg tablet 50 mg PO BID #60 tab 11/01/20 01/08/21 Rx pantoprazole 40 mg tablet,delayed 40 mg PO QAM #90 tab 12/19/20 01/08/21 Rx release Patient History Medical History (Updated 01/09/21 @ 10:41 by Saad Garcia DO) Anemia CHF (congestive heart failure) CKD (chronic kidney disease), stage III Diabetes Diabetes mellitus, type 2 Difficult airway for intubation Eye abnormality ANUERYSSM BEHIND BOTH EYES - HAS SEEN RETINOLOGIST GERD (gastroesophageal reflux disease) History of CVA (cerebrovascular accident) Hx of Lyme disease Hyperlipidemia Hypertension Hypertension Mitral regurgitation Morbid obesity with BMI of 40.0-44.9, adult Nocturnal hypoxemia Nonischemic cardiomyopathy Surgical History Hx of colonoscopy Hx of eye surgery Hx of left cataract extraction Hx of tonsillectomy Hx of tubal ligation S/P cardiac catheterization 10 YR AGO [facility] Status post laparoscopic cholecystectomy (10/07/19) Dr Tate Family History Father Family history of diabetes mellitus Aunt Family history of diabetes mellitus Uncle Family history of diabetes mellitus Brother Family history of diabetes mellitus Brother Family history of diabetes mellitus Other Alzheimer disease Coronary heart disease Social History Smoking Status: Never smoker Tobacco Type: Cigarettes Second Hand Exposure: No; Hx Alcohol Use: No Hx Substance Use: No Preferred Language: [place] Communication Ability: Effective Pulp Maker Required: No Beliefs That Will Affect Care: None Current Living Situation: Spouse Other Information That Helps Us Care for You: No Feels Safe at Home: Yes Safety Concerns: Feels Safe At This Time Assistive Devices: Glasses and Walker Review of Systems Review of Systems: All systems reviewed & are unremarkable except as noted in HPI & below Constitutional: + fatigue and + weight gain; no fever and no chills Respiratory: no chest congestion, no dyspnea and no dyspnea on exertion Cardiovascular: + edema; no chest pain, no orthopnea, no palpitations and no lightheadedness Genitourinary: + urinary frequency; no dysuria and no difficulty urinating Physical Exam Constitutional: well developed; no acute distress Eyes: no scleral abnormality and no corneal abnormality ENMT: Mouth: no oral mucosal abnormality and oral mucous membranes not dry Neck: normal visual inspection and trachea midline Respiratory: normal respiratory effort Auscultation: lungs clear to auscultation bilaterally and + rales (few scattered) Cardiovascular: Rate/Rhythm: regular rate Heart Sounds: normal S1 and normal S2 Extremities: + edema Musculoskeletal: Extremities: no cyanosis and no clubbing Skin: normal turgor and + turgor decreased Neurologic: Motor/Sensory: no tremor and no asterixis Psychiatric: Orientation: alert and oriented x 3 Results & Data ([facility]) Vital Signs (Past 12 Hours) Vital Signs Temp Pulse Pulse Resp BP Pulse Ox 01/09/21 07:56 37.2 C 71 20 176/84 H 92 01/09/21 07:26 67 01/09/21 04:00 36.9 C 68 18 161/71 H 92 01/09/21 00:12 191/97 H 01/08/21 23:00 67 Laboratory Results Laboratory Results - last 24 hr 01/08/21 01/08/21 01/08/21 16:25 16:25 16:25 WBC 7.52 RBC 3.29 L Hgb 8.8 L Hct 27.4 L MCV 83.3 MCH 26.7 MCHC 32.1 RDW Std Deviation 45.8 RDW Coeff of Braeden 15.0 H Plt Count 249 MPV 10.5 H Immature Gran % (Auto) 0.4 Neut % (Auto) 78.0 Lymph % (Auto) 12.9 Bertie % (Auto) 6.8 Eos % (Auto) 1.5 Baso % (Auto) 0.4 Neut # (Auto) 5.87 Lymph # (Auto) 0.97 L Bertie # (Auto) 0.51 Eos # (Auto) 0.11 Baso # (Auto) 0.03 Immature Gran # (Auto) 0.03 H PT 10.4 INR 1.0 APTT 22.2 PTT Ratio 0.8 Sodium 141 Potassium 3.6 Chloride 112 H Carbon Dioxide 23 Anion Gap 6.0 BUN 49 H Creatinine 3.78 H Est Cr Clr Drug Dosing Not Reportable Est GFR ( Amer) 13.7 Est GFR (Non-Af Amer) 11.8 BUN/Creatinine Ratio 12.8 Glucose 259 H POC Glucose Estimat Average Glucose Hemoglobin A1c Uric Acid Calcium 9.8 Total Bilirubin 0.2 AST 10 L ALT 14 Alkaline Phosphatase 85 Troponin I NT-Pro-B Natriuret Pep Total Protein 6.6 Albumin 2.3 L Globulin 4.3 H Albumin/Globulin Ratio 0.5 L COVID-19 Eval Order SARS-CoV-2 (PCR) 01/08/21 01/08/21 01/08/21 16:25 16:25 17:55 WBC RBC Hgb Hct MCV MCH MCHC RDW Std Deviation RDW Coeff of Braeden Plt Count MPV Immature Gran % (Auto) Neut % (Auto) Lymph % (Auto) Bertie % (Auto) Eos % (Auto) Baso % (Auto) Neut # (Auto) Lymph # (Auto) Bertie # (Auto) Eos # (Auto) Baso # (Auto) Immature Gran # (Auto) PT INR APTT PTT Ratio Sodium Potassium Chloride Carbon Dioxide Anion Gap BUN Creatinine Est Cr Clr Drug Dosing Est GFR ( Amer) Est GFR (Non-Af Amer) BUN/Creatinine Ratio Glucose POC Glucose Estimat Average Glucose 246 Hemoglobin A1c 10.2 H Uric Acid Calcium Total Bilirubin AST ALT Alkaline Phosphatase Troponin I < 0.015 NT-Pro-B Natriuret Pep > 64760 H Total Protein Albumin Globulin Albumin/Globulin Ratio COVID-19 Eval Order Covid19 at [facility] SARS-CoV-2 (PCR) 01/08/21 01/08/21 01/09/21 17:55 21:09 05:52 WBC 5.31 RBC 3.01 L Hgb 8.1 L Hct 25.4 L MCV 84.4 MCH 26.9 MCHC 31.9 L RDW Std Deviation 46.7 H RDW Coeff of Braeden 15.1 H Plt Count 224 MPV 10.4 Immature Gran % (Auto) Neut % (Auto) Lymph % (Auto) Bertie % (Auto) Eos % (Auto) Baso % (Auto) Neut # (Auto) Lymph # (Auto) Bertie # (Auto) Eos # (Auto) Baso # (Auto) Immature Gran # (Auto) PT INR APTT PTT Ratio Sodium Potassium Chloride Carbon Dioxide Anion Gap BUN Creatinine Est Cr Clr Drug Dosing Est GFR ( Amer) Est GFR (Non-Af Amer) BUN/Creatinine Ratio Glucose POC Glucose 251 H Estimat Average Glucose Hemoglobin A1c Uric Acid Calcium Total Bilirubin AST ALT Alkaline Phosphatase Troponin I NT-Pro-B Natriuret Pep Total Protein Albumin Globulin Albumin/Globulin Ratio COVID-19 Eval Order SARS-CoV-2 (PCR) NEGATIVE 01/09/21 01/09/21 05:52 07:46 WBC RBC Hgb Hct MCV MCH MCHC RDW Std Deviation RDW Coeff of Braeden Plt Count MPV Immature Gran % (Auto) Neut % (Auto) Lymph % (Auto) Bertie % (Auto) Eos % (Auto) Baso % (Auto) Neut # (Auto) Lymph # (Auto) Bertie # (Auto) Eos # (Auto) Baso # (Auto) Immature Gran # (Auto) PT INR APTT PTT Ratio Sodium 141 Potassium 3.3 L Chloride 113 H Carbon Dioxide 21 Anion Gap 7.0 BUN 46 H Creatinine 3.63 H Est Cr Clr Drug Dosing 19.3 Est GFR ( Amer) 14.4 Est GFR (Non-Af Amer) 12.4 BUN/Creatinine Ratio 12.8 Glucose 141 H POC Glucose 164 H Estimat Average Glucose Hemoglobin A1c Uric Acid 7.8 H Calcium 9.6 Total Bilirubin AST ALT Alkaline Phosphatase Troponin I NT-Pro-B Natriuret Pep Total Protein Albumin Globulin Albumin/Globulin Ratio COVID-19 Eval Order SARS-CoV-2 (PCR) Diagnostic Findings XR chest 1V portable HISTORY: Shortness of breath. leg swelling COMPARISON: Chest 08/05/2020. FINDINGS: No pneumothorax. No pleural effusions. The heart is mildly enlarged. There is progressive diffuse interstitial/vascular thickening consistent with mild interstitial pulmonary edema. No new focal lung consolidations to suggest pneumonia. IMPRESSION: Cardiomegaly with mild interstitial pulmonary edema. PG Care Time/CCT Total # of Minutes Spent Total Time Spent with Patient: Total time spent is greater than 50% in coordination of care (as documented) at patient's floor/unit and/or counseling patient: Coding Level of Care Code 03545 Inpt Consult Level 4 Diagnoses TANYA (acute kidney injury) N17.9 Primary hyperparathyroidism E21.0 CKD (chronic kidney disease), stage IV N18.4 Anemia D64.9 Anemia type: unspecified type Hypertension I10 Hypertension type: essential hypertension (1) Anemia Anemia type: unspecified type Qualified Code(s): D64.9 - Anemia, unspecified (2) Hypertension Hypertension type: essential hypertension Qualified Code(s): I10 - Essential (primary) hypertension
--- NOTE | 2021-01-09 14:40 | Hospitalist Progress Note ---
Date of Service January 09, 2021 Assessment & Plan (1) Acute kidney injury superimposed on CKD: (2) Diastolic CHF: (3) CAD (coronary artery disease): (4) Type 2 diabetes mellitus with complications: (5) Anemia: (6) Hypertension: (7) Hyperlipidemia: Plan: 65-year-old female past medical history significant for DM2, CKD stage IIIb/IV, hypertension, hyperlipidemia, nonobstructive CAD, diastolic CHF, anemia of chronic disease admitted for TANYA and SOB suspected to be secondary to fluid overload. TANYA on CKD stage 4: Presents with creatinine 3.78 --> 3.63, with baseline ~2.5 in August 2020. Given fluid overload on exam/imaging, do suspect that TANYA is secondary to cardiorenal syndrome. -Increased patient's Lasix to 40mg IV BID (from 40mg PO BID); one time dose received in ER. -Nephrology consulted --> clinical presentation concerning for progression of underlying CKD or possible CRS -Renal US ordered --> unremarkable -Repeat BMP in AM. Cont. IV diuresis. CHF: -History of diastolic CHF?; with symptoms and studies suggestive of exacerbation this admission. Prior echo from 2018 showed 55-60% EF -BNP elevated to > 35,000, with mild interstitial pulmonary edema on chest x- ray. -Diuretics as described above. Hold metolazone at this time. Low-sodium diet. -Repeat echo pending. Nonobstructive CAD -Continue Plavix. Left foot pain: -Presents with several days of intermittent stabbing left foot pain. -DVT studies negative in bilateral lower extremities. -Several possible etiologies, including diabetic neuropathy, gout, bony infection. -Uric acid levels elevated (7.8), Possible gout, but also could be elevated secondary to CKD -X-ray left foot ordered to rule out traumatic injury, bony infection. -Consider medications such as gabapentin for neuropathy if evaluation is otherwise negative. Diabetic Foot Ulcer: -suspicious ulcer on right base of big toe -wound care consulted DM2: -Patient is on sliding scale insulin in the outpatient setting. -A1c in 10/2019 of 8.2%. A1C now 10.2%, due to noncompliancy. -Continue sliding scale insulin with low-dose Lantus twice daily. Anemia: -History of, with baseline hemoglobin of ~10. Has required Epogen in the past for decreased hemoglobin in the setting of TANYA on CKD. -Hemoglobin on admission of 8.8 --> 8.1, epogen given -repeat Hgb tomorrow Hypertension: -Continue home carvedilol, hydralazine. -Per nephro, increase hydralazine PRN, amlodipine can be considered if HTN persists GERD: -Continue home PPI. CODE STATUS: Full code FEN: Heart healthy, low-sodium, DM2 diet DVT prophylaxis: Heparin 3 times daily subcu Dispo: Med/Surg with Telemetry Admission and Anticipated Discharge Date Admission Date: January 08, 2021 Supervising Physician Co-Signing Physician Notes Attending attestation Pt seen and examined in concert with Dr. Pruitt. In agreement with the documented findings as noted in the resident documentation with any exceptions or additions as noted here. Resting in bed with improvement in fatigue and SOB. On examination, S1/S2 nl RRR no MCG. reduced breath sounds bilateral bases. Abd NT/ND BS+ve. 2+ pitting edema to the midshin. TANYA on CKD IV - nephrology consult - IV diuresis with monitoring of BMP HF w/ exacerbation with h/o CAD - f/u echocardiogram for presevered vs. reduced, continue diuresis DMII - A1c > 9% - continue insulin therapy and monitor FSBS, adjust. Left > right foot pain, acute on chronic - XR without concerning findings, does have calloused wound at base of foot which is nonTTP on exam today - wound care Anemia of chronic disease - epogen today Else see resident documentation as noted. Subjective Feeling much better than when she arrived. Says some of the swelling has started to go down. Denies SOB. She still c/o of pain near her right big toe from the base to the tip. Says she also has some pain all the way up from her toes to her ankles bilaterally. Review of Systems Review of Systems: All systems reviewed & are unremarkable except as noted in HPI & below Constitutional: no fever, no chills and no malaise Respiratory: no cough and no dyspnea Cardiovascular: no chest pain, no palpitations and no edema Gastrointestinal: no abdominal pain, no constipation and no diarrhea/loose stools Genitourinary: no dysuria and no hematuria Physical Exam Constitutional: well developed and + obese; not ill appearing Eyes: PERRL, conjunctivae normal, anicteric sclerae ENMT: external ear and nose normal, oropharynx normal Neck: + thick neck Respiratory: normal respiratory effort and symmetric chest movement Auscultation: + diminished lung sounds (bilateral bases; poor air movement throughout) Cardiovascular: Rate/Rhythm: regular rate and regular rhythm Heart Sounds: + murmur (systolic murmur 2/6 hear at right and left upper sternal border) Extremities: + edema (2+ bilateral LE to mid-nelson) Gastrointestinal (Abdomen): normal bowel sounds, soft, nontender, no hepatosplenomegaly Musculoskeletal: Extremities: no cyanosis and no clubbing TTP right big toe and near base with a black scaly lesion present near the base, questionable diabetic foot ulcer. Psychiatric: A+Ox3, euthymic affect Results & Data Results & Data ([facility]) Vital Signs (Past 12 Hours) Vital Signs Temp Pulse Pulse Resp BP Pulse Ox 01/09/21 12:16 92 01/09/21 11:44 36.7 C 73 20 165/74 H 01/09/21 07:56 37.2 C 71 20 176/84 H 92 01/09/21 07:26 67 01/09/21 04:00 36.9 C 68 18 161/71 H 92 Resident Activity Tracking Resident Involvement: Resident Care Provided Care Provided: Adult Hospital Medicine (1) Anemia Anemia type: unspecified type Qualified Code(s): D64.9 - Anemia, unspecified (2) Hyperlipidemia Hyperlipidemia type: mixed hyperlipidemia Qualified Code(s): E78.2 - Mixed hyperlipidemia (3) Hypertension Hypertension type: essential hypertension Qualified Code(s): I10 - Essential (primary) hypertension
[2021-01-09 19:23] LABS: Appearance Urine Cloudy (Clear); Bacteria Urine Automated 4+ (Negative); Bilirubin Urine Negative (Negative); Blood Urine Negative (Negative); Color Urine Yellow; Epithelial Cell Urine Auto >30 /lpf (0-5); Glucose Urine UA 2+ (Negative); Ketones Urine Trace (Negative); Leukocyte Esterase Urine 1+ (Negative); Nitrite Urine Negative (Negative); Protein Urine 4+ (Negative); RBC Urine Automated 0-4 /hpf (0-4); Specific Gravity Urine 1.015 (1.000-1.030); Urobilinogen Urine Negative (Negative); WBC Urine Automated >30 /hpf (0-5); pH Urine 5.5 (4.5-7.5)
[2021-01-10] MEDS: HEPARIN SOD 5,000 UNIT/0.5 ML VIAL SQ SCH ×3 (05:20→21:09)
[2021-01-10] MEDS: carvediloL 25 MG TAB PO SCH ×2 (09:45→21:10)
[2021-01-10] MEDS: PANTOprazole 40 MG TAB PO SCH (09:46)
[2021-01-10] MEDS: POTASSIUM CHLORIDE CRTAB 20 MEQ TABCR PO SCH (09:46)
[2021-01-10] MEDS: FUROSEMIDE 40 MG in SYRINGE 0 ML IV SCH ×2 (09:47→16:20)
[2021-01-10] MEDS: INSULIN GLARGINE SOLOSTAR 100 UNITS/ML 3 ML PEN SC SCH ×2 (09:47→21:14)
[2021-01-10] MEDS: INSULIN ASPART 100 UNITS/ML 3 ML PEN SC SCH ×4 (09:50→21:13)
[2021-01-10] MEDS: CLOPIDOGREL BISULFATE 75 MG TAB PO SCH (09:51)
[2021-01-10 10:26] LABS: Hematocrit (blood only) 25.8 % (37-47); Hemoglobin 8.1 g/dL (12.0-16.0); Mean Corpuscular Hemoglobin 26.7 pg (25-34); Mean Corpuscular Hgb Conc 31.4 g/dL (32-36); Mean Corpuscular Volume 85.1 fL (80-100); Mean Platelet Volume 10.2 fL (7.4-10.4); Platelet Count 233 K/uL (130-400); RDW Coefficient of Variation 15.3 % (11.5-14.5); RDW Standard Deviation 47.7 fL (36.4-46.3); Red Blood Count 3.03 M/uL (4.2-5.4); White Blood Count 5.65 K/uL (4.8-10.8)
[2021-01-10] MEDS: hydrALAZINE TAB 50 MG TAB PO SCH ×2 (10:52→21:10)
[2021-01-10 11:02] LABS: Albumin Level 2.1 gm/dl (3.4-5.0); Calcium 9.5 mg/dl (8.5-10.1); Creatinine Clr Calc Pharmacy 17.6 ml/min; Est GFR (African American) 12.7 ml/min; Phosphorus 3.8 mg/dl (2.5-4.9); Potassium 3.9 mmol/L (3.5-5.1)
[2021-01-10] MEDS ORDERED: EPOETIN ALFA 10,000 UNITS/ML VIAL SQ ONE (11:07)
[2021-01-10 11:26] LABS: Beta-Hydroxybutyrate 3.67 mg/dl (0.2-2.81)
[2021-01-10] MEDS ORDERED: INSULIN GLARGINE SOLOSTAR 100 UNITS/ML 3 ML PEN SC STA (11:40)
--- NOTE | 2021-01-10 11:56 | Nephrology Progress Note ---
Date of Service January 10, 2021 Assessment & Plan (1) TANYA (acute kidney injury): Plan: Non-oliguric. Electrolytes acceptable. No emergent indiction for dialysis. US of the kidneys did not demonstrate obstruction. UA demonstrating proteinuria and pyuria. No hematuria. Urine culture +G negative rods. Medications appropriate for kidney function. Goals of care and potential future indications for TECHNOLOGY ASSISTANT discussed with Delfina this AM. She understands the the trajectory is not favorable. Continue diuretics to encourage negative fluid balance. Delfina remains on furosemide 40 mg twice daily IV. Daily weight will be monitored and I/O's strictly documented. Clinical presentation concerning for progression of underlying CKD. Repeat metabolic profile tomorrow AM. I would recommend antibiotic treatment for gram negative rods in urine given symptoms of urinary frequency and changes in blood sugar. (2) CKD (chronic kidney disease), stage IV: Plan: Attributed to DKD. Prior evaluation for monoclonal process negative. Advanced nephrotic range proteinuria with accelerated BP and associated hypoalbuminemia. Blood glucose control poor. Thankfully, no emergent indication for dialysis but high lifetime risk of requiring TECHNOLOGY ASSISTANT. (3) Primary hyperparathyroidism: Plan: Corrected calcium ~11. Unclear why Delfina has not bee on Sensipar previously prescribed. I will restart a low dose at this time and continue to monitor. (4) Anemia: Plan: Epogen 69387 units now. Start Venofer 200 mg IV daily x 5 days today. (5) Hypertension: Plan: Avoid JEANETTE/ARB due to TANYA. Continue hydralazine and carvedilol per home regimen. Hydralazine increased to 100 mg twice daily this AM. Loop diuretics to encourage negative fluid balance. If BP does not improve with current therapy, start a dihydropyridine CCB such as nifedipine or amlodipine. Admission and Anticipated Discharge Date Admission Date: January 08, 2021 Subjective No acute events overnight. Overall, Delfina is feeling much better than she did prior to admission. Weight is up 2 kg and output is not accurately documented. Edema has improved slightly. Delfina notes improvement as well. She is breathing comfortably. She does admit to some depression. She is understandably concerned about the possibility of dialysis. She was tearful during our conversation. I discussed the plan of care with Dr. Cagle this AM. Review of Systems Review of Systems: All systems reviewed & are unremarkable except as noted in HPI & below Physical Exam Constitutional: well developed; no acute distress Eyes: no scleral abnormality and no corneal abnormality ENMT: Mouth: no oral mucosal abnormality and oral mucous membranes not dry Neck: normal visual inspection and trachea midline Respiratory: normal respiratory effort Auscultation: lungs clear to auscultation bilaterally Cardiovascular: Rate/Rhythm: regular rate Heart Sounds: normal S1 and normal S2 Extremities: + edema Musculoskeletal: Extremities: no cyanosis and no clubbing Skin: normal turgor and + turgor decreased Neurologic: Motor/Sensory: no tremor and no asterixis Psychiatric: Orientation: alert and oriented x 3 Results & Data ([facility]) Vital Signs (Past 12 Hours) Vital Signs Temp Pulse Resp BP BP Pulse Ox 01/10/21 08:00 36.9 C 66 20 173/78 H 92 01/10/21 05:09 193/85 H 01/10/21 03:00 36.7 C 69 18 199/76 H 92 Laboratory Results Laboratory Results - last 24 hr 01/09/21 01/09/21 01/09/21 16:44 18:15 20:38 WBC RBC Hgb Hct MCV MCH MCHC RDW Std Deviation RDW Coeff of [place] Plt Count MPV Sodium Potassium Chloride Carbon Dioxide Anion Gap BUN Creatinine Est Cr Clr Drug Dosing Est GFR ( Amer) Est GFR (Non-Af Amer) BUN/Creatinine Ratio Glucose POC Glucose 223 H 311 H* Calcium Phosphorus Iron Transferrin Transferrin % Sat Ferritin Albumin Beta-Hydroxybutyric Acd Urine Color Yellow Urine Appearance Cloudy A Urine pH 5.5 Ur Specific [place] 1.015 Urine Protein 4+ H Urine Glucose (UA) 2+ H Urine Ketones Trace H Urine Blood Negative Urine Nitrite Negative Urine Bilirubin Negative Urine Urobilinogen Negative Ur Leukocyte Esterase 1+ H Urine WBC (Auto) >30 H Urine RBC (Auto) 0-4 U Hyaline Cast (Auto) 1-5 U Epithel Cells (Auto) >30 H Urine Bacteria (Auto) 4+ H Urine Yeast Not Reportable 01/09/21 01/09/21 01/10/21 20:45 20:47 05:14 WBC RBC Hgb Hct MCV MCH MCHC RDW Std Deviation RDW Coeff of [place] Plt Count MPV Sodium Potassium Chloride Carbon Dioxide Anion Gap BUN Creatinine Est Cr Clr Drug Dosing Est GFR ( Amer) Est GFR (Non-Af Amer) BUN/Creatinine Ratio Glucose POC Glucose 292 H 274 H 219 H Calcium Phosphorus Iron Transferrin Transferrin % Sat Ferritin Albumin Beta-Hydroxybutyric Acd Urine Color Urine Appearance Urine pH Ur Specific [place] Urine Protein Urine Glucose (UA) Urine Ketones Urine Blood Urine Nitrite Urine Bilirubin Urine Urobilinogen Ur Leukocyte Esterase Urine WBC (Auto) Urine RBC (Auto) U Hyaline Cast (Auto) U Epithel Cells (Auto) Urine Bacteria (Auto) Urine Yeast 01/10/21 01/10/21 01/10/21 07:36 10:13 10:13 WBC 5.65 RBC 3.03 L Hgb 8.1 L Hct 25.8 L MCV 85.1 MCH 26.7 MCHC 31.4 L RDW Std Deviation 47.7 H RDW Coeff of [place] 15.3 H Plt Count 233 MPV 10.2 Sodium 139 Potassium 3.9 D Chloride 111 H Carbon Dioxide 21 Anion Gap 7.0 BUN 44 H Creatinine 4.02 H D Est Cr Clr Drug Dosing 17.6 Est GFR ( Amer) 12.7 Est GFR (Non-Af Amer) 11.0 BUN/Creatinine Ratio 11.0 Glucose 314 H* POC Glucose 211 H Calcium 9.5 Phosphorus 3.8 Iron 32 L Transferrin 154 L Transferrin % Sat 15 Ferritin 127.0 Albumin 2.1 L Beta-Hydroxybutyric Acd 3.67 H Urine Color Urine Appearance Urine pH Ur Specific [place] Urine Protein Urine Glucose (UA) Urine Ketones Urine Blood Urine Nitrite Urine Bilirubin Urine Urobilinogen Ur Leukocyte Esterase Urine WBC (Auto) Urine RBC (Auto) U Hyaline Cast (Auto) U Epithel Cells (Auto) Urine Bacteria (Auto) Urine Yeast 01/10/21 11:38 WBC RBC Hgb Hct MCV MCH MCHC RDW Std Deviation RDW Coeff of [place] Plt Count MPV Sodium Potassium Chloride Carbon Dioxide Anion Gap BUN Creatinine Est Cr Clr Drug Dosing Est GFR ( Amer) Est GFR (Non-Af Amer) BUN/Creatinine Ratio Glucose POC Glucose 223 H Calcium Phosphorus Iron Transferrin Transferrin % Sat Ferritin Albumin Beta-Hydroxybutyric Acd Urine Color Urine Appearance Urine pH Ur Specific [place] Urine Protein Urine Glucose (UA) Urine Ketones Urine Blood Urine Nitrite Urine Bilirubin Urine Urobilinogen Ur Leukocyte Esterase Urine WBC (Auto) Urine RBC (Auto) U Hyaline Cast (Auto) U Epithel Cells (Auto) Urine Bacteria (Auto) Urine Yeast PG Care Time/CCT Total # of Minutes Spent Total Time Spent with Patient: Total time spent is greater than 50% in coordination of care (as documented) at patient's floor/unit and/or counseling patient: Coding Level of Care Code 75219 Subseq Hosp Care Lvl 3 Diagnoses TANYA (acute kidney injury) N17.9 CKD (chronic kidney disease), stage IV N18.4 Primary hyperparathyroidism E21.0 Anemia D64.9 Anemia type: unspecified type Hypertension I10 Hypertension type: essential hypertension (1) Anemia Anemia type: unspecified type Qualified Code(s): D64.9 - Anemia, unspecified (2) Hypertension Hypertension type: essential hypertension Qualified Code(s): I10 - Essential (primary) hypertension
[2021-01-10] MEDS: IRON SUCROSE 200 MG in 0.9 % SODIUM CHLORIDE 100 ML IV SCH (12:39)
--- NOTE | 2021-01-10 12:45 | XCELERA ---
[id number]
[2021-01-10] MEDS: CINACALCET HCL 30 MG TAB PO SCH (12:50)
[2021-01-10] MEDS: CEFDINIR 300 MG CAP PO SCH (16:18)
--- NOTE | 2021-01-10 16:37 | Hospitalist Progress Note ---
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 TANYA on CKD stage 4: -Presents with creatinine 3.78 --> 3.63 --> 4.02 today, with baseline ~2.5 in August 2020. -Given fluid overload on exam/imaging, do suspect that TANYA is secondary to cardiorenal syndrome. -Lasix to 40mg IV BID (from 40mg PO BID); one time dose received in ER. -Renal US ordered --> unremarkable -Nephrology consulted --> clinical presentation concerning for progression of underlying CKD or possible CRS, dialysis may be necessary in the near future -Repeat BMP in AM. Cont. IV diuresis. Complicated UTI: -Urine cultures grew gram negative bacilli, pt has symptoms of urinary frequency and elevated blood sugar -will treat with Omnicef 300mg PO qd x7days CHF: -History of diastolic CHF?; with symptoms and studies suggestive of exacerbation this admission. Prior echo from 2019 showed 55-60% EF -BNP elevated to > 35,000, with mild interstitial pulmonary edema on chest x- ray. -Echo repeated: left ventricular systolic function is low normal, aortic valve sclerosis mild, moderate mitral annular calcification, EF 50-55% slight reduced from 2019) -Diuretics as described above. Hold metolazone at this time. Low-sodium diet. Nonobstructive CAD -Continue Plavix. Left foot pain: -Presents with several days of intermittent stabbing left foot pain. -DVT studies negative in bilateral lower extremities. -Several possible etiologies, including diabetic neuropathy, gout, bony infection. -Uric acid levels elevated (7.8), Possible gout, but also could be elevated secondary to CKD -X-ray left foot ordered to rule out traumatic injury, bony infection. -Consider medications such as gabapentin for neuropathy if evaluation is otherwise negative. Diabetic Foot Ulcer: -suspicious ulcer on right base of big toe -wound care consulted DM2: -Patient is on sliding scale insulin in the outpatient setting. -A1c in 10/2019 of 8.2%. A1C now 10.2%, due to noncompliancy. -Was on sliding scale insulin with low-dose Lantus twice daily --> blood sugar spiked this morning 300s, pharm consulted: advised to increase lantus to 10-15U BID --> now on lantus 10units BID + SSI, glucose stable Anemia: -History of, with baseline hemoglobin of ~10. Has required Epogen in the past for decreased hemoglobin in the setting of TANYA on CKD. -Hemoglobin on admission of 8.8 --> 8.1, epogen given --> remains at 8.1, monitor -repeat Hgb tomorrow Hypertension: -Continue home carvedilol, hydralazine. -Per nephro: hydralazine increased to 100mg PO BID, amlodipine can be considered if HTN persists GERD: -Continue home PPI. CODE STATUS: Full code FEN: Heart healthy, low-sodium, DM2 diet DVT prophylaxis: Heparin 3 times daily subq Dispo: Med/Surg with Telemetry Admission and Anticipated Discharge Date Admission Date: January 08, 2021 Supervising Physician Co-Signing Physician Notes I also saw the patient with the resident physician confirmed weaver portions of the history and physical examination. As discussed the case with the nephrology community resource consultant. Agree the impression and plan as noted in the resident documentation. Upon exam, the patient was seated in the bedside chair. She was a little depressed given the overall situation, but she had no complaints other than some right great toe pain. Exam 144/83, 79, 16, 36.7, 95% on room air HEENT generally unremarkable. Neck supple heart regular rate and rhythm. Lungs clear in the apices, somewhat decreased in the bases bilaterally abdomen obese but nontender 2+ edema, bilateral lower extremities, to mid tib-fib Data hemoglobin 8.1, platelet count 233 sodium 139, potassium 3.9, BUN 44, creatinine 4.02 iron 32, transferrin 154, transferrin saturation 15%, ferritin 127. Albumin 2.1 urine culture showing greater than 100,000 colonies gram-negative bacilli, sensitivities to follow Impression and plan TANYA on CKD IV - nephrology consult - IV diuresis with monitoring of BMP UTI - cedinir added; sensitivities pending HF w/ exacerbation with h/o CAD - f/u echocardiogram for persevered vs. reduced, continue diuresis DMII - A1c > 9% - continue insulin therapy and monitor FSBS, Left > right foot pain, acute on chronic - XR without concerning findings, does have calloused wound at base of foot which is nonTTP on exam today - wound care Anemia of chronic disease - epogen today Else see resident documentation as noted. Subjective Patient comfortable but tearful. Says she is depressed because no one knows what's wrong with her. She also complains of not having enough insulin and her food being too sugary, causing her blood glucose to rise. She does feel that her legs are less swollen than yesterday. Review of Systems Review of Systems: All systems reviewed & are unremarkable except as noted in HPI & below Constitutional: no fever, no chills and no malaise Respiratory: no cough and no dyspnea Cardiovascular: no chest pain and no palpitations Gastrointestinal: no abdominal pain, no constipation and no diarrhea/loose stools Genitourinary: no dysuria and no hematuria Physical Exam Constitutional: well developed and + obese; not ill appearing Eyes: PERRL, conjunctivae normal, anicteric sclerae ENMT: external ear and nose normal, oropharynx normal Neck: + thick neck Respiratory: normal respiratory effort and symmetric chest movement Auscultation: + diminished lung sounds (bilateral bases; poor air movement throughout) Cardiovascular: Rate/Rhythm: regular rate and regular rhythm Heart Sounds: + murmur (systolic murmur 2/6 hear at right and left upper sternal border) Extremities: + edema (2+ bilateral LE to mid-nelson) Gastrointestinal (Abdomen): normal bowel sounds, soft, nontender, no hepatosplenomegaly Musculoskeletal: Extremities: no cyanosis and no clubbing Skin: black ulcerative lesion 1cm on plantar base of left big toe Psychiatric: A+Ox3, euthymic affect Results & Data Results & Data ([facility]) Vital Signs (Past 12 Hours) Vital Signs Temp Pulse Pulse Resp BP Pulse Ox 01/10/21 15:30 36.7 C 79 16 144/83 H 95 01/10/21 14:19 61 01/10/21 12:03 36.7 C 65 20 178/92 H 96 01/10/21 08:00 36.9 C 66 20 173/78 H 92 01/10/21 07:00 64 01/10/21 05:09 193/85 H Resident Activity Tracking Resident Involvement: Resident Care Provided Care Provided: Adult Hospital Medicine (1) Anemia Anemia type: unspecified type Qualified Code(s): D64.9 - Anemia, unspecified (2) Hyperlipidemia Hyperlipidemia type: mixed hyperlipidemia Qualified Code(s): E78.2 - Mixed hyperlipidemia (3) Hypertension Hypertension type: essential hypertension Qualified Code(s): I10 - Essential (primary) hypertension
--- NOTE | 2021-01-10 16:45 | Electrocardiogram Report ---
Test Reason : Blood Pressure : / mmHG Vent. Rate : 068 BPM Atrial Rate : 068 BPM P-R Int : 184 ms QRS Dur : 098 ms QT Int : 404 ms P-R-T Axes : 033 014 248 degrees QTc Int : 429 ms Normal sinus rhythm Left ventricular hypertrophy with repolarization abnormality Abnormal ECG When compared with ECG of 05-AUG-2020 00:20, No significant change was found Confirmed by Jesse Fontenot ([id number]) on 01/10/2021 4:45:45 PM Referred By: Peyton An Confirmed By:Cliff Fontenot
[2021-01-11] MEDS: HEPARIN SOD 5,000 UNIT/0.5 ML VIAL SQ SCH ×3 (05:33→21:08)
[2021-01-11 07:07] LABS: Hematocrit (blood only) 24.7 % (37-47); Hemoglobin 7.6 g/dL (12.0-16.0)
--- NOTE | 2021-01-11 07:19 | Hospitalist Progress Note ---
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 TANYA on CKD stage 4: -Presents with creatinine 3.78 --> 3.63 --> 4.02 --> 3.98 today, with baseline ~2.5 in August 2020, stable overnight -Given fluid overload on exam/imaging, do suspect that TANYA is secondary to cardiorenal syndrome. -Lasix to 40mg IV BID (from 40mg PO BID); one time dose received in ER. -Renal US ordered --> unremarkable -Nephrology consulted --> clinical presentation concerning for progression of underlying CKD or possible CRS, dialysis may be necessary in the near future -Repeat BMP in AM. Cont. IV diuresis. -Per nephro: Appears clinically euvolemic. I&O's, daily weights do not appear reliable. Electrolyte balance is acceptable. No acute indication for HD at this time. Will transition to Bumex 1 mg PO BID and monitor volume status closely. Complicated UTI: -Urine cultures grew gram negative bacilli, pt has symptoms of urinary frequency and elevated blood sugar -cont. treating with Omnicef 300mg PO qd x7days Primary hyperparathyroidism: -Corrected calcium ~11 -Vitamin D & PTH ordered -Sensipar 30 mg daily started 01/10/21 CHF: -History of diastolic CHF?; with symptoms and studies suggestive of exacerbation this admission. Prior echo from 2019 showed 55-60% EF -BNP elevated to > 35,000, with mild interstitial pulmonary edema on chest x- ray. -Echo repeated: left ventricular systolic function is low normal, aortic valve sclerosis mild, moderate mitral annular calcification, EF 50-55% slight reduced from 2019) -Diuretics as described above. Hold metolazone at this time. Low-sodium diet. Nonobstructive CAD -Continue Plavix. Left foot pain: -Presents with several days of intermittent stabbing left foot pain. -DVT studies negative in bilateral lower extremities. -Several possible etiologies, including diabetic neuropathy, gout, bony infection. -Uric acid levels elevated (7.8), Possible gout, but also could be elevated secondary to CKD -X-ray left foot ordered to rule out traumatic injury, bony infection. -Consider medications such as gabapentin for neuropathy if evaluation is otherwise negative. Diabetic Foot Ulcer: -suspicious ulcer on right base of big toe -wound care consulted, wound wrapped DM2: -Patient is on sliding scale insulin in the outpatient setting. -A1c in 10/2019 of 8.2%. A1C now 10.2%, due to noncompliancy. -Was on sliding scale insulin with low-dose Lantus twice daily --> blood sugar spiked this morning 300s, pharm consulted: advised to increase lantus to 10-15U BID --> now on lantus 10units BID + SSI, glucose stable Anemia: -History of, with baseline hemoglobin of ~10. Has required Epogen in the past for decreased hemoglobin in the setting of TANYA on CKD. -Hemoglobin on admission of 8.8 --> 8.1, epogen given --> 8.1 --> 7.6 -day #2/5 Venofer 200 mg IV daily -FOBT ordered -Consider blood transfusion for Hgb < 7.5, repeat CBC in am Hypertension: -Continue home carvedilol, hydralazine. -Per nephro: hydralazine increased to 100mg PO BID, amlodipine can be considered if HTN persists --> further increased Hydralazine to 100mg PO TID GERD: -Continue home PPI. CODE STATUS: Full code FEN: Heart healthy, low-sodium, DM2 diet DVT prophylaxis: Heparin 3 times daily subq Dispo: Med/Surg with Telemetry Admission and Anticipated Discharge Date Admission Date: January 08, 2021 Supervising Physician Co-Signing Physician Notes I also saw the patient with the resident physician confirmed weaver portions of the history and physical examination. As discussed the case with the nephrology java developer consultant. Agree the impression and plan as noted in the resident documentation. Upon exam, the patient is semireclined in bed. Overall she seems to be in a better mood compared to yesterday. She reports that she has been able to get up daily to the bathroom without significant shortness of breath; much better than she had been able to ambulate upon admission. Exam 165/74, 63, 16, 36.9, 93% on room air HEENT generally unremarkable. Neck supple heart regular rate and rhythm. Lungs clear in the apices, somewhat decreased in the bases bilaterally abdomen obese but nontender trace edema, bilateral lower extremities, to mid tib-fib, this is improved compared to previous exam Data Hemoglobin 7.6 Sodium 142, potassium 3.6, BUN 46, creatinine 3.98 urine culture showing greater than 100,000 colonies gram-negative bacilli, sensitivity to third-generation cephalosporin Impression and plan TANYA on CKD IV -overall volume status looks improved; appreciate nephrology input UTI -continue cefdinir, sensitivities noted HF w/ exacerbation with h/o CAD -no signs of failure; echocardiogram results reviewed DMII - A1c > 9% - continue insulin therapy and monitor FSBS, Anemia of chronic disease -note drop in hemoglobin; Epogen 01/10, Venofer daily x 5, repeat CBC in a.m. Else see resident documentation as noted. Subjective IV fell out overnight but now back in. She is comfortable and understanding of her situation. Glad her sugars are back in check. Says leg swelling may be improving. Review of Systems Constitutional: no fever, no chills and no malaise Respiratory: no cough and no dyspnea Cardiovascular: no chest pain and no palpitations Gastrointestinal: no abdominal pain, no constipation and no diarrhea/loose stools Genitourinary: no dysuria and no hematuria Physical Exam Constitutional: well developed and + obese; not ill appearing Eyes: PERRL, conjunctivae normal, anicteric sclerae ENMT: external ear and nose normal, oropharynx normal Neck: + thick neck Respiratory: normal respiratory effort and symmetric chest movement Auscultation: + diminished lung sounds (bilateral bases; poor air movement throughout) Cardiovascular: Rate/Rhythm: regular rate and regular rhythm Heart Sounds: + murmur (systolic murmur 2/6 hear at right and left upper sternal border) Extremities: + edema (2+ bilateral LE to mid-nelson) Gastrointestinal (Abdomen): normal bowel sounds, soft, nontender, no hepatosplenomegaly Musculoskeletal: Extremities: no cyanosis and no clubbing Psychiatric: A+Ox3, euthymic affect Results & Data Results & Data ([facility]) Vital Signs (Past 12 Hours) Vital Signs Temp Pulse Pulse Resp BP Pulse Ox 01/10/21 22:20 86 01/10/21 20:28 36.6 C 73 18 158/72 H 92 Resident Activity Tracking Resident Involvement: Resident Care Provided Care Provided: Adult Hospital Medicine (1) Anemia Anemia type: unspecified type Qualified Code(s): D64.9 - Anemia, unspecified (2) Hyperlipidemia Hyperlipidemia type: mixed hyperlipidemia Qualified Code(s): E78.2 - Mixed hyperlipidemia (3) Hypertension Hypertension type: essential hypertension Qualified Code(s): I10 - Essential (primary) hypertension
[2021-01-11 07:28] LABS: BUN Creatinine Ratio 11.4 (10-20); Calcium 9.4 mg/dl (8.5-10.1); Creatinine Clr Calc Pharmacy 17.8 ml/min; Est GFR (African American) 12.9 ml/min; Est GFR (Non-African American) 11.1 ml/min; Phosphorus 3.5 mg/dl (2.5-4.9); Potassium 3.6 mmol/L (3.5-5.1)
[2021-01-11] MEDS: carvediloL 25 MG TAB PO SCH ×2 (08:05→21:08)
[2021-01-11] MEDS: PANTOprazole 40 MG TAB PO SCH (08:06)
[2021-01-11] MEDS: POTASSIUM CHLORIDE CRTAB 20 MEQ TABCR PO SCH (08:06)
[2021-01-11] MEDS: CLOPIDOGREL BISULFATE 75 MG TAB PO SCH (08:06)
[2021-01-11] MEDS: CINACALCET HCL 30 MG TAB PO SCH (08:08)
[2021-01-11] MEDS: CEFDINIR 300 MG CAP PO SCH (08:08)
[2021-01-11] MEDS: FUROSEMIDE 40 MG in SYRINGE 0 ML IV SCH (08:09)
[2021-01-11] MEDS: hydrALAZINE TAB 50 MG TAB PO SCH ×3 (08:09→21:07)
[2021-01-11] MEDS: INSULIN GLARGINE SOLOSTAR 100 UNITS/ML 3 ML PEN SC SCH ×2 (08:19→21:09)
[2021-01-11] MEDS: INSULIN ASPART 100 UNITS/ML 3 ML PEN SC SCH ×4 (08:22→21:10)
[2021-01-11] MEDS: IRON SUCROSE 200 MG in 0.9 % SODIUM CHLORIDE 100 ML IV SCH (08:37)
--- NOTE | 2021-01-11 11:12 | Nephrology Progress Note ---
Date of Service January 11, 2021 Assessment & Plan (1) TANYA (acute kidney injury): Plan: * Creatinine stable at ~ 3.9 overnight. Baseline Cr 2.5 * Appears clinically euvolemic. I&O's, daily weights do not appear reliable * Electrolyte balance is acceptable. No acute indication for HD at this time * Will transition to Bumex 1 mg po BID and monitor volume status closely (2) CKD (chronic kidney disease), stage IV: Plan: * Baseline Cr 2.5. CKD due to DKD. Prior evaluation for monoclonal process negative (3) Primary hyperparathyroidism: Plan: * Corrected calcium ~11 * Will order vitamin D & PTH * Sensipar 30 mg daily started 01/10/21 (4) Anemia: Plan: * Epogen 10,000 administered 01/10/21 * Day #2/5 Venofer 200 mg IV daily * Will order FOBT * Consider blood transfusion for Hgb < 7.5 (5) Hypertension: Plan: * Avoid JEANETTE/ARB due to ATNYA. * Continue Carvedilol. HR appears adequately beta blocked * Increase Hydralazine to TID Admission and Anticipated Discharge Date Admission Date: January 08, 2021 Subjective Ms. Reyna was evaluated in her hospital room this morning. She reports good response to diuretic therapy. Her leg swelling is subjectively improved. She is breathing comfortably flat in bed on RA. Her primary concern is weakness. She is aware that her Hgb is trending down but denies overt blood loss. Review of Systems Constitutional: + weakness; no fever Eyes: no problem reported Ear, Nose, Mouth, Throat: no problem reported Respiratory: no cough and no dyspnea Cardiovascular: no chest pain, no palpitations and no edema Gastrointestinal: no abdominal pain, no nausea, no vomiting and no diarrhea/loose stools Genitourinary: no dysuria and no hematuria Musculoskeletal: no back pain Integumentary: no rash Neurologic: no confusion Physical Exam Constitutional: + obese; not in distress Eyes: PERRL, conjunctivae normal, anicteric sclerae ENMT: external ear and nose normal, oropharynx normal Neck: trachea midline, no thyromegaly Respiratory: normal respiratory effort, lungs clear to auscultation Cardiovascular: Rate/Rhythm: regular rate and regular rhythm Extremities: + edema (trace pretibial swelling) Gastrointestinal (Abdomen): normal bowel sounds, soft, nontender, no hepatosplenomegaly Skin: no rashes, warm and dry Neurologic: awake; not confused Results & Data ([facility]) Vital Signs (Past 12 Hours) Vital Signs Temp Pulse Pulse Resp BP Pulse Ox 01/11/21 07:49 37.0 C 63 16 183/71 H 91 01/11/21 07:00 64 Laboratory Results Laboratory Tests 01/10/21 01/11/21 01/11/21 10:13 06:03 06:03 Hgb 8.1 L 7.6 L Hct 25.8 L 24.7 L Sodium 142 Potassium 3.6 Chloride 114 H Carbon Dioxide 22 BUN 46 H Creatinine 3.98 H PG Care Time/CCT Total # of Minutes Spent Total Time Spent with Patient: Total time spent is greater than 50% in coordination of care (as documented) at patient's floor/unit and/or counseling patient: Coding Level of Care Code 16078 Subseq Hosp Care Lvl 3 Diagnoses TANYA (acute kidney injury) N17.9 CKD (chronic kidney disease), stage IV N18.4 Primary hyperparathyroidism E21.0 Anemia D64.9 Anemia type: unspecified type Hypertension I10 Hypertension type: essential hypertension (1) Anemia Anemia type: unspecified type Qualified Code(s): D64.9 - Anemia, unspecified (2) Hypertension Hypertension type: essential hypertension Qualified Code(s): I10 - Essential (primary) hypertension
[2021-01-11] MEDS ORDERED: MELATONIN 3 MG TAB PO PRN (20:40)
[2021-01-11] MEDS: BUMETANIDE 1 MG TAB PO SCH (21:07)
[2021-01-12] MEDS: HEPARIN SOD 5,000 UNIT/0.5 ML VIAL SQ SCH ×3 (05:49→21:14)
[2021-01-12] MEDS: POLYETHYLENE (MIRALAX) 17 GM PACK PO PRN (05:50)
[2021-01-12 06:24] LABS: Hematocrit (blood only) 26.8 % (37-47); Hemoglobin 8.2 g/dL (12.0-16.0); Mean Corpuscular Hemoglobin 26.4 pg (25-34); Mean Corpuscular Hgb Conc 30.6 g/dL (32-36); Mean Corpuscular Volume 86.2 fL (80-100); Mean Platelet Volume 10.4 fL (7.4-10.4); Platelet Count 250 K/uL (130-400); RDW Coefficient of Variation 15.5 % (11.5-14.5); RDW Standard Deviation 48.5 fL (36.4-46.3); Red Blood Count 3.11 M/uL (4.2-5.4)
[2021-01-12 06:51] LABS: BUN Creatinine Ratio 10.6 (10-20); Creatinine Clr Calc Pharmacy 17.4 ml/min; Est GFR (African American) 12.5 ml/min; Est GFR (Non-African American) 10.8 ml/min; Potassium 3.6 mmol/L (3.5-5.1)
[2021-01-12] MEDS: BUMETANIDE 1 MG TAB PO SCH ×2 (07:56→21:13)
[2021-01-12] MEDS: carvediloL 25 MG TAB PO SCH ×2 (07:56→21:13)
[2021-01-12] MEDS: PANTOprazole 40 MG TAB PO SCH (07:57)
[2021-01-12] MEDS: CINACALCET HCL 30 MG TAB PO SCH (09:10)
[2021-01-12] MEDS: POTASSIUM CHLORIDE CRTAB 20 MEQ TABCR PO SCH (09:10)
[2021-01-12] MEDS: CEFDINIR 300 MG CAP PO SCH (09:11)
[2021-01-12] MEDS: CLOPIDOGREL BISULFATE 75 MG TAB PO SCH (09:11)
[2021-01-12] MEDS: INSULIN ASPART 100 UNITS/ML 3 ML PEN SC SCH ×4 (09:11→21:15)
[2021-01-12] MEDS: INSULIN GLARGINE SOLOSTAR 100 UNITS/ML 3 ML PEN SC SCH ×2 (09:13→21:14)
[2021-01-12] MEDS: IRON SUCROSE 200 MG in 0.9 % SODIUM CHLORIDE 100 ML IV SCH (09:32)
--- NOTE | 2021-01-12 10:03 | Nephrology Progress Note ---
Date of Service January 12, 2021 Assessment & Plan (1) TANYA (acute kidney injury): Plan: * Creatinine stable at ~ 3.9 overnight. Baseline Cr 2.5 * Appears clinically euvolemic. I&O's, daily weights do not appear reliable * Electrolyte balance is acceptable. No acute indication for HD at this time * Will transition to Bumex 1 mg po BID and monitor volume status closely * Will need close outpatient follow up w/ Dr. Garcia. Discussed need for AVF creation as outpatient (2) CKD (chronic kidney disease), stage IV: Plan: * Baseline Cr 2.5. CKD due to DKD. Prior evaluation for monoclonal process negative (3) Primary hyperparathyroidism: Plan: * Corrected calcium ~11 * Vitamin D & PTH - pending * Sensipar 30 mg daily started 01/10/21 (4) Anemia: Plan: * Epogen 10,000 administered 01/10/21 * Day #3/5 Venofer 200 mg IV daily * FOBT - pending * Consider blood transfusion for Hgb < 7.5 (5) Hypertension: Plan: * Avoid JEANETTE/ARB due to TANYA. * Continue Carvedilol. HR appears adequately beta blocked * Hydralazine increased to TID * BP is improved this am Admission and Anticipated Discharge Date Admission Date: January 08, 2021 Subjective Ms. Reyna was evaluated in her hospital room this morning. She reports good response to diuretic therapy. Her leg swelling is subjectively improved. She is breathing comfortably flat in bed on RA. Her primary concern is weakness. She is aware that her Hgb is low but denies overt blood loss. Review of Systems Constitutional: + weakness; no fever Eyes: no problem reported Ear, Nose, Mouth, Throat: no problem reported Respiratory: no cough and no dyspnea Cardiovascular: no chest pain, no palpitations and no edema Gastrointestinal: no abdominal pain, no nausea, no vomiting and no diarrhea/loose stools Genitourinary: no dysuria and no hematuria Musculoskeletal: no back pain Integumentary: no rash Neurologic: no confusion Physical Exam Constitutional: + obese; not in distress Eyes: PERRL, conjunctivae normal, anicteric sclerae ENMT: external ear and nose normal, oropharynx normal Neck: trachea midline, no thyromegaly Respiratory: normal respiratory effort, lungs clear to auscultation Cardiovascular: Rate/Rhythm: regular rate and regular rhythm Extremities: + edema (trace pretibial swelling) Gastrointestinal (Abdomen): normal bowel sounds, soft, nontender, no hepatosplenomegaly Skin: no rashes, warm and dry Neurologic: awake; not confused Results & Data ([facility]) Vital Signs (Past 12 Hours) Vital Signs Temp Pulse Pulse Resp BP Pulse Ox 01/12/21 09:28 64 126/63 01/12/21 07:58 36.3 C L 64 16 189/78 H 94 01/12/21 07:00 62 01/12/21 02:57 37.2 C 63 18 168/72 H 94 01/11/21 23:16 36.7 C 68 18 159/70 H 94 01/11/21 22:20 69 Laboratory Results Laboratory Tests 01/12/21 01/12/21 05:29 05:29 WBC 5.40 Hgb 8.2 L Hct 26.8 L Plt Count 250 Sodium 142 Potassium 3.6 Chloride 112 H Carbon Dioxide 22 BUN 43 H Creatinine 4.08 H Glucose 105 H Calcium 9.0 PG Care Time/CCT Total # of Minutes Spent Total Time Spent with Patient: Total time spent is greater than 50% in c oordination of care (as documented) at patient's floor/unit and/or counseling patient: Coding Level of Care Code 24999 Subseq Hosp Care Lvl 3 Diagnoses TANYA (acute kidney injury) N17.9 CKD (chronic kidney disease), stage IV N18.4 Primary hyperparathyroidism E21.0 Anemia D64.9 Anemia type: unspecified type Hypertension I10 Hypertension type: essential hypertension (1) Anemia Anemia type: unspecified type Qualified Code(s): D64.9 - Anemia, unspecified (2) Hypertension Hypertension type: essential hypertension Qualified Code(s): I10 - Essential (primary) hypertension
[2021-01-12 10:42] LABS: Thyroid Stimulating Hormone 5.18 uIu/ml (0.300-4.500)
[2021-01-12 10:55] LABS: T4 Free Thyroxine 1.18 ng/dl (0.8-1.6)
[2021-01-12] MEDS: hydrALAZINE TAB 50 MG TAB PO SCH ×3 (11:55→21:12)
--- NOTE | 2021-01-12 16:52 | Hospitalist Progress Note ---
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 TANYA on CKD stage 4: -Presents with creatinine 3.78 --> 3.63 --> 4.02 --> 3.98 --> 4.08 today, with baseline ~2.5 in August 2020, stable overnight -Given fluid overload on exam/imaging, do suspect that TANYA is secondary to cardiorenal syndrome. -Initially on Lasix to 40mg IV BID (from 40mg PO BID); one time dose received in ER. -Renal US ordered --> unremarkable -Nephrology consulted --> clinical presentation concerning for progression of underlying CKD or possible CRS, dialysis may be necessary in the near future -Repeat BMP in AM. Cont. IV diuresis. -Per nephro: Creatinine stable at ~ 3.9 overnight. Baseline Cr 2.5. Appears clinically euvolemic. I&O's, daily weights do not appear reliable. Electrolyte balance is acceptable. No acute indication for HD at this time. Transitioned to Bumex 1 mg po BID and monitor volume status closely. Will need close outpatient follow up w/ Dr. Garcia. Discussed need for AVF creation as outpatient. Complicated UTI: -Urine cultures grew gram negative bacilli, pt has symptoms of urinary frequency and elevated blood sugar -cont. treating with Omnicef 300mg PO qd x7days Primary hyperparathyroidism: -Corrected calcium ~11 -Vitamin D & PTH ordered, pending -Sensipar 30 mg daily started 01/10/21 CHF: -History of diastolic CHF?; with symptoms and studies suggestive of exacerbation this admission. Prior echo from 2019 showed 55-60% EF -BNP elevated to > 35,000, with mild interstitial pulmonary edema on chest x- ray. -Echo repeated: left ventricular systolic function is low normal, aortic valve sclerosis mild, moderate mitral annular calcification, EF 50-55% slight reduced from 2019) -Diuretics as described above. Hold metolazone at this time. Low-sodium diet. Nonobstructive CAD -Continue Plavix. Left foot pain: -Presents with several days of intermittent stabbing left foot pain. -DVT studies negative in bilateral lower extremities. -Several possible etiologies, including diabetic neuropathy, gout, bony infection. -Uric acid levels elevated (7.8), Possible gout, but also could be elevated secondary to CKD -X-ray left foot: no fx or signs of osteomyelitis -Consider medications such as gabapentin for neuropathy if evaluation is otherwise negative. Right Ankle Pain -c/o of right ankle pain, monitor -consider right ankle XR Diabetic Foot Ulcer: -suspicious ulcer on right base of big toe -wound care consulted, wound wrapped DM2: -Patient is on sliding scale insulin in the outpatient setting. -A1c in 10/2019 of 8.2%. A1C now 10.2%, due to noncompliancy. -Was on sliding scale insulin with low-dose Lantus twice daily --> blood sugar spiked this morning 300s, pharm consulted: advised to increase lantus to 10-15U BID --> now on lantus 10units BID + SSI, glucose stable Anemia: -History of, with baseline hemoglobin of ~10. Has required Epogen in the past for decreased hemoglobin in the setting of TANYA on CKD. -Hemoglobin on admission of 8.8 --> 8.1, epogen given --> 8.1 --> 7.6 --> improved to 8.2 today -day #3/5 Venofer 200 mg IV daily -FOBT ordered, pending -Consider blood transfusion for Hgb < 7.5, repeat CBC in am Hypertension: -Continue home carvedilol, hydralazine. -Per nephro: hydralazine increased to 100mg PO BID, amlodipine can be considered if HTN persists --> further increased Hydralazine to 100mg PO TID, BP better GERD: -Continue home PPI. Elevated TSH -TSH elevated, normal T4 -likely due to stress of being in hospital -should monitor in outpatient setting to exclude hypothyroidism CODE STATUS: Full code FEN: Heart healthy, low-sodium, DM2 diet DVT prophylaxis: Heparin 3 times daily subq Dispo: Med/Surg with Telemetry Admission and Anticipated Discharge Date Admission Date: January 08, 2021 Supervising Physician Co-Signing Physician Notes I also saw the patient with the resident physician confirmed weaver portions of the history and physical examination. I agree the impression and plan as noted in the resident documentation. She overall feels better. She notes that her ambulation has improved. Her complaint today is some mild right ankle pain. Sounds like there is some chronicity to this, perhaps is little bit more sore today. Exam 142/79, 64, 20, 36.5, 95% on room air HEENT generally unremarkable. Neck supple heart regular rate and rhythm. Lungs clear in the apices, somewhat decreased in the bases bilaterally abdomen obese but nontender trace edema, bilateral lower extremities. Data Hemoglobin 8.2 Sodium 142, potassium 3.6, BUN 43, creatinine 4.08 TSH 5.180, free T4 1.18 PTH is pending urine culture shows E. coli with sensitivity to cephalosporins. Impression and plan TANYA on CKD IV -overall volume status looks improved; appreciate nephrology input, will need outpatient follow-up UTI -continue cefdinir, sensitivities noted HF w/ exacerbation with h/o CAD -no signs of failure; echocardiogram results reviewed DMII - A1c > 9% - continue insulin therapy Anemia of chronic disease -note drop in hemoglobin; Epogen 01/10, Venofer daily x 5, trend CBC Else see resident documentation as noted. Subjective Ms. Reyna was evaluated in her hospital room this morning. Says diuresis seems to be working as leg swelling has gone down a lot. She spoke with sausage mixer this morning, scared with thought of going on dialysis. Review of Systems Constitutional: no fever, no chills and no malaise Respiratory: no cough and no dyspnea Cardiovascular: no chest pain and no palpitations Gastrointestinal: no abdominal pain, no constipation and no diarrhea/loose stools Genitourinary: no dysuria and no hematuria Musculoskeletal: pain right ankle Physical Exam Constitutional: well developed and + obese; not ill appearing Eyes: PERRL, conjunctivae normal, anicteric sclerae ENMT: external ear and nose normal, oropharynx normal Neck: + thick neck Respiratory: normal respiratory effort and symmetric chest movement Auscultation: + diminished lung sounds (bilateral bases; poor air movement throughout) Cardiovascular: Rate/Rhythm: regular rate and regular rhythm Heart Sounds: + murmur (systolic murmur 2/6 hear at right and left upper sternal border) Extremities: + edema (2+ bilateral LE to mid-nelson) Gastrointestinal (Abdomen): normal bowel sounds, soft, nontender, no hepatosplenomegaly Musculoskeletal: Extremities: no cyanosis and no clubbing Psychiatric: A+Ox3, euthymic affect Results & Data Results & Data ([facility]) Vital Signs (Past 12 Hours) Vital Signs Temp Pulse Pulse Resp BP Pulse Ox 01/12/21 15:20 36.5 C 64 20 142/79 H 95 01/12/21 14:20 62 01/12/21 11:52 36.7 C 62 16 164/69 H 96 01/12/21 09:28 64 126/63 01/12/21 07:58 36.3 C L 64 16 189/78 H 94 01/12/21 07:00 62 Resident Activity Tracking Resident Involvement: Resident Care Provided Care Provided: Adult Hospital Medicine (1) Anemia Anemia type: unspecified type Qualified Code(s): D64.9 - Anemia, unspecified (2) Hyperlipidemia Hyperlipidemia type: mixed hyperlipidemia Qualified Code(s): E78.2 - Mixed hyperlipidemia (3) Hypertension Hypertension type: essential hypertension Qualified Code(s): I10 - Essential (primary) hypertension
[2021-01-12] MEDS ORDERED: traMADol HCL 50 MG TABLET PO PRN (20:27)
[2021-01-12] MEDS: ZOLPIDEM TARTRATE 5 MG TAB PO PRN (21:12)
[2021-01-13] MEDS: HEPARIN SOD 5,000 UNIT/0.5 ML VIAL SQ SCH ×3 (05:32→19:54)
[2021-01-13 07:28] LABS: Hematocrit (blood only) 26.2 % (37-47); Hemoglobin 8.1 g/dL (12.0-16.0); Mean Corpuscular Hemoglobin 26.3 pg (25-34); Mean Corpuscular Hgb Conc 30.9 g/dL (32-36); Mean Corpuscular Volume 85.1 fL (80-100); Mean Platelet Volume 10.6 fL (7.4-10.4); Platelet Count 233 K/uL (130-400); RDW Coefficient of Variation 15.7 % (11.5-14.5); Red Blood Count 3.08 M/uL (4.2-5.4); White Blood Count 5.68 K/uL (4.8-10.8)
[2021-01-13 07:44] LABS: Calcium 8.8 mg/dl (8.5-10.1); Creatinine Clr Calc Pharmacy 16.3 ml/min; Est GFR (African American) 11.6 ml/min
[2021-01-13] MEDS: BUMETANIDE 1 MG TAB PO SCH (08:22)
[2021-01-13] MEDS: carvediloL 25 MG TAB PO SCH ×2 (08:22→19:55)
[2021-01-13] MEDS: CEFDINIR 300 MG CAP PO SCH (08:22)
[2021-01-13] MEDS: CINACALCET HCL 30 MG TAB PO SCH (08:22)
[2021-01-13] MEDS: POTASSIUM CHLORIDE CRTAB 20 MEQ TABCR PO SCH (08:23)
[2021-01-13] MEDS: hydrALAZINE TAB 50 MG TAB PO SCH ×3 (08:23→19:55)
[2021-01-13] MEDS: PANTOprazole 40 MG TAB PO SCH (08:23)
[2021-01-13] MEDS: CLOPIDOGREL BISULFATE 75 MG TAB PO SCH (08:23)
[2021-01-13] MEDS: INSULIN GLARGINE SOLOSTAR 100 UNITS/ML 3 ML PEN SC SCH ×2 (08:24→19:56)
[2021-01-13] MEDS: INSULIN ASPART 100 UNITS/ML 3 ML PEN SC SCH ×4 (08:27→19:56)
[2021-01-13] MEDS: IRON SUCROSE 200 MG in 0.9 % SODIUM CHLORIDE 100 ML IV SCH (09:10)
--- NOTE | 2021-01-13 09:48 | Nephrology Progress Note ---
Date of Service January 13, 2021 Assessment & Plan (1) TANYA (acute kidney injury): Plan: * Creatinine has increased from 4.0 to 4.3. Baseline Cr 2.5 * Diuresed 700 cc overnight * Appears clinically euvolemic. I&O's, daily weights do not appear reliable * Electrolyte balance is acceptable. No acute indication for HD at this time * Will reduce Bumex to 1 mg po qAM and monitor volume status closely * Will need close outpatient follow up w/ Dr. Garcia. Discussed need for AVF creation as outpatient (2) CKD (chronic kidney disease), stage IV: Plan: * Baseline Cr 2.5. CKD due to DKD. Prior evaluation for monoclonal process negative (3) Primary hyperparathyroidism: Plan: * Corrected calcium ~10.4 * Vitamin D low at 20, PTH mildly elevated at 250 * Sensipar 30 mg daily started 01/10/21 (4) Anemia: Plan: * Epogen 10,000 administered 01/10/21, 01/13/21 * Day #4/5 Venofer 200 mg IV daily * FOBT - pending (5) Hypertension: Plan: * Avoid JEANETTE/ARB due to TANYA. * Continue Carvedilol. HR appears adequately beta blocked * Hydralazine increased to TID * BP is improved (6) Physical deconditioning: Plan: * Encouraged participation w/ PT Admission and Anticipated Discharge Date Admission Date: January 08, 2021 Subjective Ms. Reyna was evaluated in her hospital room this morning. She reports good response to diuretic therapy. Her leg swelling is subjectively improved. She is breathing comfortably flat in bed on RA. Her primary concern is weakness. She is aware that her Hgb is low but denies overt blood loss. Review of Systems Constitutional: + weakness; no fever Eyes: no problem reported Ear, Nose, Mouth, Throat: no problem reported Respiratory: no cough and no dyspnea Cardiovascular: no chest pain, no palpitations and no edema Gastrointestinal: no abdominal pain, no nausea, no vomiting and no diarrhea/loose stools Genitourinary: no dysuria and no hematuria Musculoskeletal: no back pain Integumentary: no rash Neurologic: no confusion Physical Exam Constitutional: + obese; not in distress Eyes: PERRL, conjunctivae normal, anicteric sclerae ENMT: external ear and nose normal, oropharynx normal Neck: trachea midline, no thyromegaly Respiratory: normal respiratory effort, lungs clear to auscultation Cardiovascular: Rate/Rhythm: regular rate and regular rhythm Extremities: + edema (trace pretibial swelling) Gastrointestinal (Abdomen): normal bowel sounds, soft, nontender, no hepatosplenomegaly Skin: no rashes, warm and dry Neurologic: awake; not confused Results & Data ([facility]) Vital Signs (Past 12 Hours) Vital Signs Temp Pulse Pulse Resp BP BP Pulse Ox 01/13/21 07:25 36.7 C 68 18 161/82 H 93 01/13/21 07:00 67 01/13/21 02:37 36.7 C 72 20 158/79 H 95 01/12/21 22:55 36.8 C 65 18 160/84 H 95 01/12/21 22:20 64 Laboratory Results Laboratory Tests 01/13/21 01/13/21 07:13 07:13 WBC 5.68 Hgb 8.1 L Hct 26.2 L Plt Count 233 Sodium 142 Potassium 4.0 Chloride 113 H Carbon Dioxide 22 BUN 43 H Creatinine 4.33 H Glucose 104 H Laboratory Tests 01/11/21 01/12/21 01/12/21 06:03 05:29 05:29 Calcium Albumin 2.0 L 25-OH Vitamin D Total 20.7 L PTH Intact 250.6 H 01/13/21 07:13 Calcium 8.8 Albumin 25-OH Vitamin D Total PTH Intact PG Care Time/CCT Total # of Minutes Spent Total Time Spent with Patient: Total time spent is greater than 50% in coordination of care (as documented) at patient's floor/unit and/or counseling patient: Coding Level of Care Code 38186 Subseq Hosp Care Lvl 3 Diagnoses TANYA (acute kidney injury) N17.9 CKD (chronic kidney disease), stage IV N18.4 Primary hyperparathyroidism E21.0 Anemia D64.9 Anemia type: unspecified type Hypertension I10 Hypertension type: essential hypertension Physical deconditioning R53.81 (1) Anemia Anemia type: unspecified type Qualified Code(s): D64.9 - Anemia, unspecified (2) Hypertension Hypertension type: essential hypertension Qualified Code(s): I10 - Essential (primary) hypertension
[2021-01-13] MEDS: POLYETHYLENE (MIRALAX) 17 GM PACK PO PRN (09:54)
[2021-01-13] MEDS ORDERED: EPOETIN ALFA 10,000 UNITS/ML VIAL SQ SCH (10:00)
--- NOTE | 2021-01-13 10:42 | Hospitalist Progress Note ---
Date of Service January 13, 2021 Assessment & Plan (1) Acute kidney injury superimposed on CKD: Plan: 65-year-old female past medical history significant for DM2, CKD stage IIIb/IV, hypertension, hyperlipidemia, nonobstructive CAD, diastolic CHF, anemia of chronic disease admitted for TANYA and SOB suspected to be secondary to fluid overload. TANYA on CKD stage 4 Given fluid overload on exam/imaging, suspect TANYA is secondary to cardiorenal syndrome although - Presents with creatinine 3.78 --> 3.63 --> 4.02 --> 3.98 --> 4.08 --> 4.33 today, with baseline ~2.5 - Initially on Lasix to 40mg IV BID (from 40mg PO BID); one time dose received in ER. - Renal US ordered --> unremarkable - Nephrology consulted --> clinical presentation concerning for progression of underlying CKD or possible CRS, dialysis may be necessary in the near future - Repeat BMP in AM. Cont. IV diuresis. - Per nephro: Baseline Cr 2.5. Appears clinically euvolemic. I&O's, daily weights do not appear reliable. Electrolyte balance is acceptable. No acute indication for HD at this time. Transitioned to Bumex 1 mg QAM and monitor volume status closely. Will need close outpatient follow up w/ Dr. Garcia. Discussed need for AVF creation as outpatient. Complicated UTI: -Urine cultures grew gram negative bacilli, pt has symptoms of urinary frequency and elevated blood sugar -cont. treating with Omnicef 300mg PO qd x7days Primary hyperparathyroidism: -Corrected calcium ~11 -Vitamin D & PTH ordered, pending -Sensipar 30 mg daily started 01/10/21 CHF: -History of diastolic CHF?; with symptoms and studies suggestive of exacerbation this admission. Prior echo from 2019 showed 55-60% EF -BNP elevated to > 35,000, with mild interstitial pulmonary edema on chest x- ray. -Echo repeated: left ventricular systolic function is low normal, aortic valve sclerosis mild, moderate mitral annular calcification, EF 50-55% slight reduced from 2019) -Diuretics as described above. Hold metolazone at this time. Low-sodium diet. Nonobstructive CAD -Continue Plavix. Left foot pain: -Presents with several days of intermittent stabbing left foot pain. -DVT studies negative in bilateral lower extremities. -Several possible etiologies, including diabetic neuropathy, gout, bony infection. -Uric acid levels elevated (7.8), Possible gout, but also could be elevated secondary to CKD -X-ray left foot: no fx or signs of osteomyelitis -Consider medications such as gabapentin for neuropathy if evaluation is otherwise negative. Right Ankle Pain -c/o of right ankle pain, monitor -consider right ankle XR Diabetic Foot Ulcer: -suspicious ulcer on right base of big toe -wound care consulted, wound wrapped DM2: -Patient is on sliding scale insulin in the outpatient setting. -A1c in 10/2019 of 8.2%. A1C now 10.2%, due to noncompliance. -pharm consulted: advised to increase lantus to 10-15U BID --> now on lantus 10units BID + SSI, glucose stable Anemia: -History of, with baseline hemoglobin of ~10. Has required Epogen in the past for decreased hemoglobin in the setting of TANYA on CKD. -Hemoglobin on admission of 8.8 --> 8.1, epogen given --> 8.1 --> 7.6 --> improved to 8.2 today -day #3/5 Venofer 200 mg IV daily -FOBT ordered, pending -Consider blood transfusion for Hgb < 7.5, repeat CBC in am Hypertension: -Continue home carvedilol, hydralazine. -Per nephro: hydralazine increased to 100mg PO BID, amlodipine can be considered if HTN persists --> further increased Hydralazine to 100mg PO TID, BP better GERD: -Continue home PPI. Elevated TSH -TSH elevated, normal T4 -likely due to stress of being in hospital -should monitor in outpatient setting to exclude hypothyroidism CODE STATUS: Full code FEN: Heart healthy, low-sodium, DM2 diet DVT prophylaxis: Heparin 3 times daily subq Dispo: Med/Surg with Telemetry Admission and Anticipated Discharge Date Admission Date: January 08, 2021 Supervising Physician Co-Signing Physician Notes I personally examined the patient and verified all weaver points of history and exam, discussed case, and agree with decision making with Dr Thomas Feeling okay overall. Hoping to get out of the hospital fairly soon. Knows that she is looking at dialysis in the fairly near future. No other new complaints. Vitals noted, in general she is awake and alert pleasant no distress. HEENT normocephalic atraumatic mucous membranes moist. Breathing unlabored no accessory muscle use good effort. Skin shows no rashes no pallor or icterus. Neuro without focal deficits. TANYA on CKD stage IVprobably on the dry side of euvolemic now. Agree with reduced dosing of diuretic. Continue to follow closely. Depending on further input from nephrology, if creatinine is slightly improved or even stable, po ssibly home tomorrow. UTIfinish course of cefdinir Otherwise as above Subjective Doing well this morning. She has no questions or concerns today Review of Systems Review of Systems: Constitutional: denies fevers, chills, nausea, vomiting Cardiac: denies chest pain, palpitations GI: denies diarrhea admits constipation (LBM 2-3 days ago) : admits increased frequency denies pain with urination Physical Exam Constitutional: WD/WN, vitals as above Eyes: PERRL, conjunctivae normal, anicteric sclerae ENMT: external ear and nose normal, oropharynx normal Neck: normal visual inspection Respiratory: normal respiratory effort, lungs clear to auscultation Cardiovascular: Rate/Rhythm: regular rate and regular rhythm - 2+ pitting edema to the knee Gastrointestinal (Abdomen): normal bowel sounds, soft, nontender, no hepatosplenomegaly Skin: no rashes, warm and dry Neurologic: no focal motor deficits Psychiatric: A+Ox3, euthymic affect Results & Data Results & Data ([facility]) Vital Signs (Past 12 Hours) Vital Signs Temp Pulse Pulse Resp BP BP Pulse Ox 01/13/21 07:25 36.7 C 68 18 161/82 H 93 01/13/21 07:00 67 01/13/21 02:37 36.7 C 72 20 158/79 H 95 01/12/21 22:55 36.8 C 65 18 160/84 H 95 01/12/21 22:20 64 CBC Results Results Complete Blood Count Results: RBC 3.08 M/uL (4.2-5.4) L 01/13/21 WBC 5.68 K/uL (4.8-10.8) 01/13/21 Hgb 8.1 g/dL (12.0-16.0) L 01/13/21 Hct 26.2 % (37-47) L 01/13/21 Plt Count 233 K/uL (130-400) 01/13/21 Chemistry (BMP) Results BMP Results: Sodium 142 mmol/L (136-145) 01/13/21 Potassium 4.0 mmol/L (3.5-5.1) 01/13/21 Chloride 113 mmol/L (98-107) H 01/13/21 BUN 43 mg/dl (7-18) H 01/13/21 Creatinine 4.33 mg/dl (0.6-1.2) H 01/13/21 Glucose 104 mg/dl (70-99) H 01/13/21 Resident Activity Tracking Resident Involvement: Resident Care Provided Care Provided: Adult Hospital Medicine
[2021-01-13] MEDS ORDERED: POLYETHYLENE (MIRALAX) 17 GM PACK PO ONE (18:51)
--- NOTE | 2021-01-13 18:51 | Billing Data ---
Date of Service January 13, 2021 Coding Level of Care Code 61938 Subseq Hosp Care Lvl 2
[2021-01-14] MEDS: HEPARIN SOD 5,000 UNIT/0.5 ML VIAL SQ SCH ×3 (05:22→21:51)
[2021-01-14 07:11] LABS: BUN Creatinine Ratio 9.7 (10-20); Calcium 8.5 mg/dl (8.5-10.1); Creatinine Clr Calc Pharmacy 15.2 ml/min; Est GFR (African American) 10.7 ml/min; Est GFR (Non-African American) 9.2 ml/min; Potassium 4.2 mmol/L (3.5-5.1)
[2021-01-14] MEDS: BUMETANIDE 1 MG TAB PO SCH (08:06)
[2021-01-14] MEDS: CINACALCET HCL 30 MG TAB PO SCH (08:06)
[2021-01-14] MEDS: CLOPIDOGREL BISULFATE 75 MG TAB PO SCH (08:06)
[2021-01-14] MEDS: CEFDINIR 300 MG CAP PO SCH (08:07)
[2021-01-14] MEDS: hydrALAZINE TAB 50 MG TAB PO SCH ×3 (08:07→21:50)
[2021-01-14] MEDS: POTASSIUM CHLORIDE CRTAB 20 MEQ TABCR PO SCH (08:07)
[2021-01-14] MEDS: carvediloL 25 MG TAB PO SCH ×2 (08:08→21:50)
[2021-01-14] MEDS: PANTOprazole 40 MG TAB PO SCH (08:08)
[2021-01-14] MEDS: INSULIN ASPART 100 UNITS/ML 3 ML PEN SC SCH ×4 (08:09→21:09)
[2021-01-14] MEDS: INSULIN GLARGINE SOLOSTAR 100 UNITS/ML 3 ML PEN SC SCH ×2 (08:10→21:09)
[2021-01-14] MEDS: IRON SUCROSE 200 MG in 0.9 % SODIUM CHLORIDE 100 ML IV SCH (08:54)
--- NOTE | 2021-01-14 10:12 | Nephrology Progress Note ---
Date of Service January 14, 2021 Assessment & Plan (1) TANYA (acute kidney injury): Plan: * Net 900 cc volume + overnight * Despite vol + status Cr has risen to 4.65 (Baseline Cr 2.5) * Appears clinically euvolemic, electrolyte balance is acceptable at this time. Patient has no uremic symptoms * 01/09 renal US: R 11.2cm, L 12.4cm. No hydronephrosis * 07/22 Elevated free light chain kappa/lambda ratio 1.87 (normal up to 1.65). 03/23 UPCR 6.6 * Serum Ca 10.6 when corrected for albumin 2.0. Low vitamin D with elevated PTH suggestive of secondary HPT. On Cinacalcet therapy * Will order SIEP/UIEP, repeat serum free light chain ratio * Continue Bumex 1 mg po qAM and monitor volume status closely * Repeat PRP in am * Discussed clinical course w/ patient today. She is nearing ESRD. Indications/benefits/risks/alternatives to IJ THC catheter insertion and RELISH [employer]ENDER discussed in detail this morning. Mrs. Reyna agrees to starting HD if needed. Will reassess in am (2) CKD (chronic kidney disease), stage IV: Plan: * Baseline Cr 2.5. CKD due to DKD. Prior evaluation for monoclonal process negative (3) Primary hyperparathyroidism: Plan: * Corrected calcium ~10.6 * Vitamin D low at 20, PTH mildly elevated at 250 * Sensipar 30 mg daily started 01/10/21 (4) Anemia: Plan: * Epogen 10,000 administered 01/10/21, 01/13/21 * Day #08/07 Venofer 200 mg IV daily * FOBT - pending (5) Hypertension: Plan: * Avoid JEANETTE/ARB due to TANYA. * Continue Carvedilol. HR appears adequately beta blocked * Hydralazine increased to TID * BP is fluctuating. Continue current therapy and monitor (6) Physical deconditioning: Plan: * Encouraged participation w/ PT Admission and Anticipated Discharge Date Admission Date: January 08, 2021 Subjective Ms. Reyna was evaluated in her hospital room this morning. Her leg swelling is subjectively improved. She is breathing comfortably flat in bed on RA. She denies uremic symptoms. She has not yet been able to provide stool sample for FOBT Review of Systems Constitutional: + weakness; no fever Eyes: no problem reported Ear, Nose, Mouth, Throat: no problem reported Respiratory: no cough and no dyspnea Cardiovascular: no chest pain, no palpitations and no edema Gastrointestinal: no abdominal pain, no nausea, no vomiting and no diarrhea/loose stools Genitourinary: no dysuria and no hematuria Musculoskeletal: no back pain Integumentary: no rash Neurologic: no confusion Physical Exam Constitutional: + obese; not in distress Eyes: PERRL, conjunctivae normal, anicteric sclerae ENMT: external ear and nose normal, oropharynx normal Neck: trachea midline, no thyromegaly Respiratory: normal respiratory effort, lungs clear to auscultation Cardiovascular: Rate/Rhythm: regular rate and regular rhythm Extremities: + edema (trace pretibial swelling) Gastrointestinal (Abdomen): normal bowel sounds, soft, nontender, no hepatosplenomegaly Skin: no rashes, warm and dry Neurologic: awake; not confused Results & Data ([facility]) Vital Signs (Past 12 Hours) Vital Signs Temp Pulse Pulse Resp BP Pulse Ox 01/14/21 07:19 36.9 C 70 69 16 191/78 H 91 01/14/21 02:40 36.7 C 71 18 163/82 H 94 01/14/21 00:10 36.7 C 69 18 156/75 H 93 01/13/21 23:50 67 Laboratory Results Laboratory Tests 03/21/19 01/09/21 01/13/21 07:00 18:15 07:13 WBC 5.68 Hgb 8.1 L Hct 26.2 L Plt Count 233 Sodium Potassium Chloride Carbon Dioxide BUN Creatinine Glucose Calcium Urine Color Yellow Urine pH 5.5 Ur Specific [place] 1.015 Urine Protein 4+ H Urine Glucose (UA) 2+ H Urine Blood Negative Urine RBC (Auto) 0-4 Protein/Creatinin Ratio 6.6 H 01/14/21 06:11 WBC Hgb Hct Plt Count Sodium 141 Potassium 4.2 Chloride 112 H Carbon Dioxide 22 BUN 45 H Creatinine 4.65 H* D Glucose 145 H Calcium 8.5 Urine Color Urine pH Ur Specific [place] Urine Protein Urine Glucose (UA) Urine Blood Urine RBC (Auto) Protein/Creatinin Ratio PG Care Time/CCT Total # of Minutes Spent Total Time Spent with Patient: Total time spent is greater than 50% in coordination of care (as documented) at patient's floor/unit and/or counseling patient: Coding Level of Care Code 06346 Subseq Hosp Care Lvl 3 Diagnoses TANYA (acute kidney injury) N17.9 CKD (chronic kidney disease), stage IV N18.4 Primary hyperparathyroidism E21.0 Anemia D64.9 Anemia type: unspecified type Hypertension I10 Hypertension type: essential hypertension Physical deconditioning R53.81 (1) Anemia Anemia type: unspecified type Qualified Code(s): D64.9 - Anemia, unspecified (2) Hypertension Hypertension type: essential hypertension Qualified Code(s): I10 - Essential (primary) hypertension
[2021-01-14] MEDS: SENNA 8.6 MG TAB PO SCH (10:21)
[2021-01-14] MEDS ORDERED: LORazepam 0.5 MG TAB PO PRN (15:37)
--- NOTE | 2021-01-14 15:41 | Hospitalist Progress Note ---
Date of Service January 14, 2021 Assessment & Plan (1) Acute kidney injury superimposed on CKD: Plan: 65-year-old female past medical history significant for DM2, CKD stage IIIb/IV, hypertension, hyperlipidemia, nonobstructive CAD, diastolic CHF, anemia of chronic disease admitted for TANYA and SOB suspected to be secondary to fluid overload. TANYA on CKD stage 4 Given fluid overload on exam/imaging, suspect TANYA is secondary to cardiorenal syndrome although - Presents with creatinine 3.78 --> 3.63 --> 4.02 --> 3.98 --> 4.08 --> 4.33 --> 4.65 today, with baseline ~2.5 - Initially on Lasix to 40mg IV BID (from 40mg PO BID); one time dose received in ER. - Renal US ordered --> unremarkable - Nephrology consulted --> clinical presentation concerning for progression of underlying CKD, may require inpatient dialysis - Repeat BMP in AM. Cont. IV diuresis. - Per nephro: Baseline Cr 2.5. Appears clinically euvolemic. Electrolyte balance is acceptable. No acute indication for HD at this time. Complicated UTI: -Urine cultures grew gram negative bacilli, pt has symptoms of urinary frequency and elevated blood sugar -cont. treating with Omnicef 300mg PO qd x7days Primary hyperparathyroidism: -Corrected calcium ~11 -Vitamin D & PTH ordered, pending -Sensipar 30 mg daily started 01/10/21 CHF: -History of diastolic CHF?; with symptoms and studies suggestive of exacerbation this admission. Prior echo from 2019 showed 55-60% EF -BNP elevated to > 35,000, with mild interstitial pulmonary edema on chest x- ray. -Echo repeated: left ventricular systolic function is low normal, aortic valve sclerosis mild, moderate mitral annular calcification, EF 50-55% slight reduced from 2019) -Diuretics as described above. Hold metolazone at this time. Low-sodium diet. Nonobstructive CAD -Continue Plavix. Left foot pain: -Presents with several days of intermittent stabbing left foot pain. -DVT studies negative in bilateral lower extremities. -Several possible etiologies, including diabetic neuropathy, gout, bony infection. -Uric acid levels elevated (7.8), Possible gout, but also could be elevated secondary to CKD -X-ray left foot: no fx or signs of osteomyelitis -Consider medications such as gabapentin for neuropathy if evaluation is otherwise negative. -ordered ZENON hose for swelling that may be contributing to pain Right Ankle Pain -c/o of right ankle pain, monitor -consider right ankle XR Diabetic Foot Ulcer: -suspicious ulcer on right base of big toe -wound care consulted, wound wrapped DM2: -Patient is on sliding scale insulin in the outpatient setting. -A1c in 10/2019 of 8.2%. A1C now 10.2%, due to noncompliance. -pharm consulted Anemia: -History of, with baseline hemoglobin of ~10. Has required Epogen in the past for decreased hemoglobin in the setting of TANYA on CKD. -Hemoglobin on admission of 8.8, stable -continue 5 days of Venofer 200 mg IV -FOBT ordered, pending -Consider blood transfusion for Hgb < 7.5, repeat CBC in am Hypertension: -Continue home carvedilol, hydralazine. -Per nephro: hydralazine increased to 100mg PO BID, amlodipine can be considered if HTN persists --> further increased Hydralazine to 100mg PO TID, BP better GERD: -Continue home PPI. Anxiety: -added small dose of PRN Lorazepam for anxiety associated with potential for needing to initiate dialysis (reviewed side effects and possible complications of the medication) Elevated TSH -TSH elevated, normal T4 -likely due to stress of being in hospital -should monitor in outpatient setting to exclude hypothyroidism CODE STATUS: Full code FEN: Heart healthy, low-sodium, DM2 diet DVT prophylaxis: Heparin 3 times daily subq Dispo: Med/Surg with Telemetry Admission and Anticipated Discharge Date Admission Date: January 08, 2021 Supervising Physician Co-Signing Physician Notes I personally examined the patient and verified all weaver points of history and exam, discussed case, and agree with decision making with Dr Napier feeling nauseated. nondescript malaise. upset about likely progressing to HD but understands situation. Vitals noted, in general she is awake and alert pleasant no physical distress. HEENT normocephalic atraumatic mucous membranes moist. Breathing unlabored no accessory muscle use good effort. Skin shows no rashes no pallor or icterus. Neuro without focal deficits. TANYA on CKD stage IVprobably on the dry side of euvolemic now. unfortunately may have progressed to stage V/ESRD. suspect nausea and malaise may be euremic. likely will need HD sooner rather than later UTIfinish course of cefdinir Otherwise as above Subjective Tearful this morning when discussing potential need for dialysis in the near future. She did note that her right lateral foot/ankle was more painful this morning. She did have 2 small bowel movements over the last day but no significant movement. Review of Systems Review of Systems: Constitutional: denies fevers, chills, nausea, vomiting Cardiac: denies chest pain, palpitations GI: denies diarrhea admits constipation : admits increased frequency denies pain with urination Physical Exam Constitutional: WD/WN, vitals as above Eyes: PERRL, conjunctivae normal, anicteric sclerae ENMT: external ear and nose normal, oropharynx normal Neck: normal visual inspection Respiratory: normal respiratory effort, lungs clear to auscultation Cardiovascular: Rate/Rhythm: regular rate and regular rhythm - bilateral pitting edema in the lower extremity to the level of the knee Chest (Breasts): normal inspection/palpation of breasts Gastrointestinal (Abdomen): normal bowel sounds, soft, nontender, no hepatosplenomegaly Musculoskeletal: - right lateral ankle with significant edema and tenderness of the lateral aspect Skin: no rashes, warm and dry Neurologic: no focal motor deficits Psychiatric: - anxious tearful affect Results & Data Results & Data ([facility]) Vital Signs (Past 12 Hours) Vital Signs Temp Pulse Pulse Resp BP Pulse Ox 01/14/21 15:03 67 01/14/21 12:43 36.8 C 66 18 166/77 H 95 01/14/21 07:19 36.9 C 70 69 16 191/78 H 91 CBC Results Results Complete Blood Count Results: RBC 3.08 M/uL (4.2-5.4) L 01/13/21 WBC 5.68 K/uL (4.8-10.8) 01/13/21 Hgb 8.1 g/dL (12.0-16.0) L 01/13/21 Hct 26.2 % (37-47) L 01/13/21 Plt Count 233 K/uL (130-400) 01/13/21 Chemistry (BMP) Results BMP Results: Sodium 141 mmol/L (136-145) 01/14/21 Potassium 4.2 mmol/L (3.5-5.1) 01/14/21 Chloride 112 mmol/L (98-107) H 01/14/21 BUN 45 mg/dl (7-18) H 01/14/21 Creatinine 4.65 mg/dl (0.6-1.2) H* 01/14/21 Glucose 145 mg/dl (70-99) H 01/14/21 Resident Activity Tracking Resident Involvement: Resident Care Provided Care Provided: Adult [facility] Medicine
--- NOTE | 2021-01-14 18:21 | Billing Data ---
Date of Service January 14, 2021 Coding Level of Care Code 48420 Subseq Hosp Care Lvl 3
[2021-01-14] MEDS: ZOLPIDEM TARTRATE 5 MG TAB PO PRN (21:49)
[2021-01-15] MEDS: HEPARIN SOD 5,000 UNIT/0.5 ML VIAL SQ SCH ×3 (06:42→22:07)
[2021-01-15 07:53] LABS: Hematocrit (blood only) 29.1 % (37-47); Hemoglobin 8.8 g/dL (12.0-16.0); Mean Corpuscular Hemoglobin 26.7 pg (25-34); Mean Corpuscular Hgb Conc 30.2 g/dL (32-36); Mean Corpuscular Volume 88.4 fL (80-100); Mean Platelet Volume 10.4 fL (7.4-10.4); Platelet Count 252 K/uL (130-400); RDW Coefficient of Variation 16.5 % (11.5-14.5); RDW Standard Deviation 52.3 fL (36.4-46.3); Red Blood Count 3.29 M/uL (4.2-5.4); White Blood Count 6.42 K/uL (4.8-10.8)
[2021-01-15 08:04] LABS: Prothrombin Time 10.1 Seconds (9.0-12.0)
[2021-01-15 08:28] LABS: Albumin Globulin Ratio 0.6 (0.9-2); Albumin Level 2.2 gm/dl (3.4-5.0); Bilirubin,Total 0.2 mg/dl (0.2-1); Calcium 8.6 mg/dl (8.5-10.1); Creatinine Clr Calc Pharmacy 15.4 ml/min; Est GFR (African American) 10.9 ml/min; Est GFR (Non-African American) 9.4 ml/min; Globulin 3.9 gm/dl (2.5-4.0); Potassium 4.4 mmol/L (3.5-5.1); Total Protein 6.1 gm/dl (6.4-8.2)
[2021-01-15] MEDS: INSULIN ASPART 100 UNITS/ML 3 ML PEN SC SCH ×4 (09:27→22:10)
[2021-01-15] MEDS: INSULIN GLARGINE SOLOSTAR 100 UNITS/ML 3 ML PEN SC SCH ×2 (09:28→22:11)
[2021-01-15] MEDS: hydrALAZINE TAB 50 MG TAB PO SCH ×3 (09:30→22:07)
[2021-01-15] MEDS: carvediloL 25 MG TAB PO SCH ×2 (09:30→22:10)
[2021-01-15] MEDS: CEFDINIR 300 MG CAP PO SCH (09:31)
[2021-01-15] MEDS: BUMETANIDE 1 MG TAB PO SCH (09:31)
[2021-01-15] MEDS: CINACALCET HCL 30 MG TAB PO SCH (09:31)
[2021-01-15] MEDS: POTASSIUM CHLORIDE CRTAB 20 MEQ TABCR PO SCH (09:31)
[2021-01-15] MEDS: CLOPIDOGREL BISULFATE 75 MG TAB PO SCH (09:31)
[2021-01-15] MEDS: SENNA 8.6 MG TAB PO SCH (09:32)
[2021-01-15] MEDS: PANTOprazole 40 MG TAB PO SCH ×2 (09:32→22:07)
[2021-01-15] MEDS: SUCRALFATE 1 GM/10 ML UDC PO SCH ×4 (09:32→22:07)
--- NOTE | 2021-01-15 10:38 | Hospitalist Progress Note ---
Date of Service January 15, 2021 Assessment & Plan (1) Acute kidney injury superimposed on CKD: Plan: 65-year-old female past medical history significant for DM II, CKD, hypertension, hyperlipidemia, nonobstructive CAD, diastolic CHF, anemia, admitted for TANYA and short of breath suspected to be secondary to fluid overload. TANYA on CKD Given initial concern for fluid overload on exam/imaging, initially thought to be to be cardiorenal vs. now potentially 2/2 diuretics after worsening with diuresis and ultimately appears to be progressing to ESRD. - Creatinine 4.65 --> 4.5 today, with baseline ~2.5 - Initially on Lasix 40mg IV BID transitioned to Bumex BID and then decreased dosing to QAM as Cr. continued to climb over the hospitalization - Renal US unremarkable - Nephrology consulted --> clinical presentation concerning for progression of underlying CKD, may require inpatient dialysis - Vascular has been consulted to placed catheter while inpatient with plan to set up with outpatient hemodialysis - NPO at midnight for catheter placement - follow BMP Complicated UTI: -Urine cultures grew gram negative bacilli, pt has symptoms of urinary frequency and elevated blood sugar -cont. treating with Omnicef 300mg PO qd x7days Primary hyperparathyroidism: -Corrected calcium elevated -Vitamin D low & PTH high - consistent with PHPT -Sensipar 30 mg daily started 01/10/21 HFpEF: -History of diastolic CHF, with symptoms and studies suggestive of exacerbation this admission. Prior echo from 2019 showed 55-60% EF -BNP elevated to > 35,000, with mild interstitial pulmonary edema on chest x- ray. -Echo repeated: left ventricular systolic function is low normal, aortic valve sclerosis mild, moderate mitral annular calcification, EF 50-55% slight reduced from 2019) -Diuretics as described above. Hold metolazone at this time. Low-sodium diet. Nonobstructive CAD -Continue Plavix. Left foot pain: -Presents with several days of intermittent stabbing left foot pain. -DVT studies negative in bilateral lower extremities. -Several possible etiologies, including diabetic neuropathy, gout, bony infection. -Uric acid levels elevated (7.8), Possible gout, but also could be elevated secondary to CKD -X-ray left foot: no fx or signs of osteomyelitis -Consider medications such as gabapentin for neuropathy if evaluation is otherwise negative. Right Ankle Pain: -c/o of right ankle pain, monitor -ZENON hose for swelling Diabetic Foot Ulcer: -suspicious ulcer on right base of big toe -wound care consulted, wound wrapped DM2: -Patient is on sliding scale insulin in the outpatient setting. -A1c in 10/2019 of 8.2%. A1C now 10.2%, due to noncompliance. -pharm consulted while inpatient Anemia: -History of, with baseline hemoglobin of ~10. Has required Epogen in the past for decreased hemoglobin in the setting of TANYA on CKD. -Hemoglobin on admission of 8.8, currently stable -continue 5 days of Venofer 200 mg IV -FOBT ordered, pending -Consider blood transfusion for Hgb < 7.5, repeat CBC in am Hypertension: -Continue home carvedilol, hydralazine. -Per nephro: hydralazine increased to 100mg PO BID, amlodipine can be considered if HTN persists --> further increased Hydralazine to 100mg PO TID, BP better GERD: -Continue home PPI. Anxiety: -added small dose of PRN Lorazepam for anxiety associated with potential for needing to initiate dialysis (reviewed side effects and possible complications of the medication) Elevated TSH -TSH elevated, normal T4 -likely due to stress of being in hospital -should monitor in outpatient setting to exclude hypothyroidism Constipation, improved - PRN Miralax - added Senna CODE STATUS: Full code FEN: Heart healthy, low-sodium, DM2 diet; NPO at midnight DVT prophylaxis: Heparin 3 times daily subq Dispo: Med/Surg with Telemetry Admission and Anticipated Discharge Date Admission Date: January 08, 2021 Supervising Physician Co-Signing Physician Notes I personally examined the patient and verified all weaver points of history and exam, discussed case, and agree with decision making with Dr Napier Attempted to see patient several times today. Sleeping each time. Discussed with resident physician as well as nephrology. Input appreciated. Vitals noted, sleeping, appearing comfortable and in no distress. HEENT normocephalic atraumatic. Breathing unlabored no accessory muscle use. No focal neuro deficits at rest. Skin without rashes, pallor, icterus visibly noted TANYA on CKD stage IVprobably on the dry side of euvolemic now. unfortunately a ppears to have progressed to ESRD. For dialysis access tomorrow, and likely first treatment tomorrow UTIfinish course of cefdinir Otherwise as above Subjective Delfina Reyna was doing well when I saw her today. She understood that we would be working toward dialysis. She has no questions or concerns. Review of Systems Review of Systems: Constitutional: denies fevers, chills, nausea, vomiting Cardiac: denies chest pain, palpitations GI: denies diarrhea admits constipation : admits increased frequency denies pain with urination Physical Exam Constitutional: WD/WN, vitals as above Eyes: PERRL, conjunctivae normal, anicteric sclerae ENMT: external ear and nose normal, oropharynx normal Neck: normal visual inspection Respiratory: normal respiratory effort, lungs clear to auscultation Cardiovascular: Rate/Rhythm: regular rhythm Gastrointestinal (Abdomen): normal bowel sounds, soft, nontender, no hepatosplenomegaly Skin: no rashes, warm and dry Neurologic: no focal motor deficits Psychiatric: A+Ox3, euthymic affect Results & Data Results & Data ([facility]) Vital Signs (Past 12 Hours) Vital Signs Temp Pulse Pulse Resp BP Pulse Ox 01/15/21 08:00 36.7 C 69 20 157/79 H 92 01/15/21 02:51 36.7 C 68 16 147/78 H 92 01/14/21 23:59 68 01/14/21 23:26 36.7 C 66 16 148/76 H 92 CBC Results Results Complete Blood Count Results: RBC 3.29 M/uL (4.2-5.4) L 01/15/21 WBC 6.42 K/uL (4.8-10.8) 01/15/21 Hgb 8.8 g/dL (12.0-16.0) L 01/15/21 Hct 29.1 % (37-47) L 01/15/21 Plt Count 252 K/uL (130-400) 01/15/21 Chemistry (BMP) Results BMP Results: Sodium 142 mmol/L (136-145) 01/15/21 Potassium 4.4 mmol/L (3.5-5.1) 01/15/21 Chloride 112 mmol/L (98-107) H 01/15/21 BUN 46 mg/dl (7-18) H 01/15/21 Creatinine 4.56 mg/dl (0.6-1.2) H* 01/15/21 Glucose 135 mg/dl (70-99) H 01/15/21 Resident Activity Tracking Resident Involvement: Resident Care Provided Care Provided: Adult Hospital Medicine
--- NOTE | 2021-01-15 10:43 | Nephrology Progress Note ---
Date of Service January 15, 2021 Assessment & Plan (1) TANYA (acute kidney injury): Plan: * Cr stable at 4.6 overnight. EGFR 9.4 cc/min. Patient has early uremic symptoms * Awaiting results of SIEP/UIEP * Remains on Cinacalcet therapy for secondary HPT * Continue Bumex 1 mg po qAM * Discussed clinical course w/ patient again today. She is nearing ESRD. Indications/benefits/risks/alternatives to IJ THC catheter insertion and [employer] discussed in detail this morning. Mrs. Reyna agrees to starting HD if needed. Will consult vascular surgery to place IJ THC. Will request that case management set up outpatient HD at [facility] (2) CKD (chronic kidney disease), stage IV: Plan: * Baseline Cr 2.5. CKD due to DKD (3) Primary hyperparathyroidism: Plan: * Corrected calcium ~10.6 * Vitamin D low at 20, PTH mildly elevated at 250 * Sensipar 30 mg daily started 01/10/21 (4) Anemia: Plan: * Epogen 10,000 administered 01/10/21, 01/13/21 * Day #5 Venofer 200 mg IV daily * FOBT - pending (5) Hypertension: Plan: * Avoid JEANETTE/ARB due to TANYA. * Continue Carvedilol. HR appears adequately beta blocked * Hydralazine increased to TID * BP is fluctuating. Continue current therapy and monitor (6) Physical deconditioning: Plan: * Encouraged participation w/ PT Admission and Anticipated Discharge Date Admission Date: January 08, 2021 Subjective Ms. Reyna was evaluated in her hospital room this morning. Her leg swelling is subjectively improved. She is breathing comfortably flat in bed on RA. She has not yet been able to provide stool sample for FOBT. She reports early uremic symptoms including nausea and dysgeusia. Review of Systems Constitutional: + weakness; no fever Eyes: no problem reported Ear, Nose, Mouth, Throat: no problem reported Respiratory: no cough and no dyspnea Cardiovascular: no chest pain, no palpitations and no edema Gastrointestinal: no abdominal pain, no nausea, no vomiting and no diarrhea/loose stools Genitourinary: no dysuria and no hematuria Musculoskeletal: no back pain Integumentary: no rash Neurologic: no confusion Physical Exam Constitutional: + obese; not in distress Eyes: PERRL, conjunctivae normal, anicteric sclerae ENMT: external ear and nose normal, oropharynx normal Neck: trachea midline, no thyromegaly Respiratory: normal respiratory effort, lungs clear to auscultation Cardiovascular: Rate/Rhythm: regular rate and regular rhythm Extremities: + edema (trace pretibial swelling) Gastrointestinal (Abdomen): normal bowel sounds, soft, nontender, no hepatosplenomegaly Skin: no rashes, warm and dry Neurologic: awake; not confused Results & Data ([facility]) Vital Signs (Past 12 Hours) Vital Signs Temp Pulse Pulse Resp BP Pulse Ox 01/15/21 08:00 36.7 C 69 20 157/79 H 92 01/15/21 02:51 36.7 C 68 16 147/78 H 92 01/14/21 23:59 68 01/14/21 23:26 36.7 C 66 16 148/76 H 92 Laboratory Results Laboratory Tests 07/11/18 01/14/21 01/15/21 11:20 08:39 07:13 WBC 6.42 Hgb 8.8 L Hct 29.1 L Plt Count 252 Sodium Potassium Chloride Carbon Dioxide BUN Creatinine Glucose Serum Immunofixation Pending Tot [place]/Lambda Ratio Pending Free [place] LC, Quant 97.6 H Free Lambda LC, Quant 52.3 H Free [place]/Lambda Ratio 1.87 H [place]elwood Light Chain Anal Pending Lambda Light Chain Anal Pending 01/15/21 07:13 WBC Hgb Hct Plt Count Sodium 142 Potassium 4.4 Chloride 112 H Carbon Dioxide 22 BUN 46 H Creatinine 4.56 H* Glucose 135 H Serum Immunofixation Tot [place]/Lambda Ratio Free [place]el[place] LC, Quant Free Lambda LC, Quant Free [place]/Lambda Ratio [place] Light Chain Anal Lambda Light Chain Anal PG Care Time/CCT Total # of Minutes Spent Total Time Spent with Patient: Total time spent is greater than 50% in coordination of care (as documented) at patient's floor/unit and/or counseling patient: Coding Level of Care Code 83416 Subseq Hosp Care Lvl 3 Diagnoses TANYA (acute kidney injury) N17.9 CKD (chronic kidney disease), stage IV N18.4 Primary hyperparathyroidism E21.0 Anemia D64.9 Anemia type: unspecified type Hypertension I10 Hypertension type: essential hypertension Physical deconditioning R53.81 (1) Anemia Anemia type: unspecified type Qualified Code(s): D64.9 - Anemia, unspecified (2) Hypertension Hypertension type: essential hypertension Qualified Code(s): I10 - Essential (primary) hypertension
--- NOTE | 2021-01-15 12:40 | Consultation ---
Date of Consultation January 15, 2021 Assessment & Plan (1) TANYA (acute kidney injury): Pt with TANYA on chronic kidney disease, now requiring HD. Pt scheduled for permcath insertion tomorrow by Dr Luke. Procedure, risks, benefits, and alternatives discussed with pt, she expresses understanding and agreement. History of Present Illness Reason for Consultation: ESRD Attending Physician: Rustam Rodriguez DO History of Present Illness 65 yo f with hx of CAD, CHF, CKD, hyperparathyroidism, osteopenia, DMII, dyslipidemia, HTN, mitral regurgitation, CVA, admitted with worsening renal fxn, seen in consultation today for insertion of permcath for HD initiation. Pt states never on HD before. Admits malaise/fatigue, HUBBARD. Denies MEZA, fever, chest pain, SOB, abd pain, N/V, rest pain, claudication, other complaints. Allergies Allergy/AdvReac Type Severity Reaction Status Date / Time dulaglutide [From Trulicity] Allergy Intermediate Hives Verified 01/08/21 19:17 atorvastatin AdvReac Intermediate Joint Pain Verified 01/08/21 19:17 erythromycin base AdvReac Intermediate Vomiting Verified 01/08/21 19:17 insulin lispro AdvReac Intermediate Visual Verified 01/08/21 19:17 [From Humalog U-100 Insulin] Disturbance Home Medications Medication Instructions Recorded Confirmed Type BD Ultra-Fine Gwen Pen Needle 32 #500 ea NS 05/30/19 10/20/19 Rx gauge x 5/32" (pen needle, diabetic) FreeStyle [place]asta 14 Day [place] #7 ea NS 09/21/19 10/20/19 Rx (flash glucose scanning reader) insulin aspart U-100 100 unit/mL 1 - 15 unit SC TIDM PRN #15 ml 12/22/19 01/08/21 Rx (3 mL) subcutaneous pen (Novolog Flexpen U-100 Insulin aspart) clopidogrel 75 mg tablet (Plavix) 75 mg PO QAM #90 tab 05/23/20 01/08/21 Rx cholecalciferol (vitamin D3) 1,250 50,000 units PO WK 08/04/20 01/08/21 History mcg (50,000 unit) capsule carvedilol 25 mg tablet (Coreg) 50 mg PO BID #360 tab 09/19/20 01/08/21 Rx furosemide 40 mg tablet (Lasix) 40 mg PO BID #180 tab 09/19/20 01/08/21 Rx metolazone 5 mg tablet 5 mg PO DAILY PRN #20 tab 09/19/20 01/08/21 Rx potassium chloride 10 mEq 20 meq PO QAM #200 tab 10/30/20 01/08/21 Rx tablet,extended release hydralazine 50 mg tablet 50 mg PO BID #60 tab 11/01/20 01/08/21 Rx pantoprazole 40 mg tablet,delayed 40 mg PO QAM #90 tab 12/19/20 01/08/21 Rx release Patient History Medical History Anemia CHF (congestive heart failure) Diabetes Diabetes mellitus, type 2 Difficult airway for intubation Eye abnormality ANUERYSSM BEHIND BOTH EYES - HAS SEEN RETINOLOGIST GERD (gastroesophageal reflux disease) History of CVA (cerebrovascular accident) Hx of Lyme disease Hyperlipidemia Hypertension Hypertension Mitral regurgitation Morbid obesity with BMI of 40.0-44.9, adult Nocturnal hypoxemia Nonischemic cardiomyopathy Surgical History Hx of colonoscopy Hx of eye surgery Hx of left cataract extraction Hx of tonsillectomy Hx of tubal ligation S/P cardiac catheterization 10 YR AGO [facility] Status post laparoscopic cholecystectomy (10/07/19) Dr Tate Family History Father Family history of diabetes mellitus Aunt Family history of diabetes mellitus Uncle Family history of diabetes mellitus Brother Family history of diabetes mellitus Brother Family history of diabetes mellitus Other Alzheimer disease Coronary heart disease Social History Smoking Status: Never smoker Tobacco Type: Cigarettes Second Hand Exposure: No; Hx Alcohol Use: No Hx Substance Use: No Preferred Language: Japanese Communication Ability: Effective Director Internal Communications Required: No Beliefs That Will Affect Care: None marital status: Current Living Situation: Spouse Other Information That Helps Us Care for You: No Feels Safe at Home: Yes Safety Concerns: Feels Safe At This Time Assistive Devices: Walker Review of Systems Review of Systems: R foot/ankle discomfort, improving. 14 systems reviewed and negative aside from HPI Physical Exam Constitutional: WD/WN, vitals as above + morbidly obese, cooperative and comfortable; not in distress ENMT: Ears: no hearing impairment Neck: trachea midline Respiratory: normal respiratory effort; no respiratory distress Auscultation: lungs clear to auscultation bilaterally and + diminished lung sounds Cardiovascular: Rate/Rhythm: regular rate and regular rhythm Vessels: posterior tibial pulses present, dorsalis pedis pulses present and radial pulses present; + abnormal peripheral pulses Extremities: normal capillary refill and + edema Gastrointestinal (Abdomen): Inspection/Auscultation: normal bowel sounds Percussion/Palpation: abdomen soft; abdomen nontender Musculoskeletal: no cyanosis or clubbing, extremities motor strength 5/5 Skin: no rashes, warm and dry (toe dressing place) Neurologic: moves all extremities and awake; no focal motor deficits and not confused Psychiatric: A+Ox3, euthymic affect Results & Data ([facility]) Vital Signs (Past 12 Hours) Vital Signs Temp Pulse Pulse Resp BP Pulse Ox 01/15/21 12:00 36.8 C 94 H 20 142/84 H 94 01/15/21 11:00 65 01/15/21 08:00 36.7 C 69 20 157/79 H 92 01/15/21 02:51 36.7 C 68 16 147/78 H 92
--- NOTE | 2021-01-15 16:53 | Billing Data ---
Date of Service January 15, 2021 Coding Level of Care Code 56108 Subseq Hosp Care Lvl 2
[2021-01-15] MEDS: ZOLPIDEM TARTRATE 5 MG TAB PO PRN (22:07)
[2021-01-16] MEDS ORDERED: ceFAZolin 2000MG 2,000 MG/15 ML SYR IV SCH (06:00)
[2021-01-16] MEDS: HEPARIN SOD 5,000 UNIT/0.5 ML VIAL SQ SCH ×3 (06:20→21:22)
[2021-01-16 07:12] LABS: Hematocrit (blood only) 28.1 % (37-47); Hemoglobin 8.3 g/dL (12.0-16.0); Mean Corpuscular Hemoglobin 26.5 pg (25-34); Mean Corpuscular Hgb Conc 29.5 g/dL (32-36); Mean Corpuscular Volume 89.8 fL (80-100); Mean Platelet Volume 10.5 fL (7.4-10.4); Platelet Count 243 K/uL (130-400); RDW Coefficient of Variation 16.4 % (11.5-14.5); RDW Standard Deviation 52.1 fL (36.4-46.3); Red Blood Count 3.13 M/uL (4.2-5.4); White Blood Count 6.55 K/uL (4.8-10.8)
--- NOTE | 2021-01-16 07:42 | Hospitalist Progress Note ---
Date of Service January 16, 2021 Assessment & Plan (1) Acute kidney injury superimposed on CKD: Plan: 65-year-old female past medical history significant for DM II, CKD, hypertension, hyperlipidemia, nonobstructive CAD, diastolic CHF, anemia, admitted for TANYA and short of breath suspected to be secondary to fluid overload. TANYA on CKD Given initial concern for fluid overload on exam/imaging, initially thought to be to be cardiorenal vs. now potentially 2/2 diuretics after worsening with diuresis and ultimately appears progressing to ESRD. - Creatinine 4.5, with baseline ~2.5 - Initially on Lasix 40mg IV BID transitioned to Bumex BID and then decreased dosing to Bumex QAM as Cr. continued to climb over the hospitalization - Renal US unremarkable - Nephrology consulted - Vascular consulted - perm. cath placed today Complicated UTI, treated: -Urine cultures grew gram negative bacilli, pt has symptoms of urinary frequency and elevated blood sugar -completed - Omnicef 300mg PO qd x7days Primary hyperparathyroidism: -Corrected calcium elevated -Vitamin D low & PTH high - consistent with PHPT -Sensipar 30 mg daily started 01/10/21 HFpEF: -History of diastolic CHF, with symptoms and studies suggestive of exacerbation this admission. Prior echo from 2019 showed 55-60% EF -BNP elevated to > 35,000, with mild interstitial pulmonary edema on chest x- ray. -Echo repeated: left ventricular systolic function is low normal, aortic valve sclerosis mild, moderate mitral annular calcification, EF 50-55% slight reduced from 2019) -Diuretics as described above. Hold metolazone at this time. Low-sodium diet. Nonobstructive CAD -Continue Plavix. Left foot pain: -Presents with several days of intermittent stabbing left foot pain. -DVT studies negative in bilateral lower extremities. -Several possible etiologies, including diabetic neuropathy, gout, bony infection. -Uric acid levels elevated (7.8), Possible gout, but also could be elevated secondary to CKD -X-ray left foot: no fx or signs of osteomyelitis -Consider medications such as gabapentin for neuropathy if evaluation is otherwise negative. Right Ankle Pain: -c/o of right ankle pain, monitor -ZENON hose for swelling Diabetic Foot Ulcer: -suspicious ulcer on right base of big toe -wound care consulted, wound wrapped DM2: -Patient is on sliding scale insulin in the outpatient setting. -A1c in 10/2019 of 8.2%. A1C now 10.2%, due to noncompliance. Anemia: -History of, with baseline hemoglobin of ~10. Has required Epogen in the past for decreased hemoglobin in the setting of TANYA on CKD. -Hemoglobin on admission of 8.8, currently stable -continue 5 days of Venofer 200 mg IV -FOBT ordered, pending -Consider blood transfusion for Hgb < 7.5, repeat CBC in am Hypertension: -Continue home carvedilol, hydralazine. -Per nephro: hydralazine increased to 100mg PO BID, amlodipine can be considered if HTN persists --> further increased Hydralazine to 100mg PO TID, BP better GERD: -Continue home PPI. Anxiety: -added small dose of PRN Lorazepam for anxiety associated with potential for needing to initiate dialysis (reviewed side effects and possible complications of the medication) Elevated TSH -TSH elevated, normal T4 -likely due to stress of being in hospital -should monitor in outpatient setting to exclude hypothyroidism Constipation, improved - PRN Miralax - added Senna CODE STATUS: Full code FEN: Heart healthy, low-sodium, DM2 diet DVT prophylaxis: Heparin 3 times daily subq Dispo: Med/Surg with Telemetry Admission and Anticipated Discharge Date Admission Date: January 08, 2021 Supervising Physician Co-Signing Physician Notes I personally examined the patient and verified all weaver points of history and exam, discussed case, and agree with decision making with Dr Napier saw pre and post op. feeling ok just sore. tramadol did not help Vitals noted, sleeping, appearing comfortable and in no distress. HEENT normocephalic atraumatic. Breathing unlabored no accessory muscle use. No focal neuro deficits at rest. Skin without rashes, pallor, icterus visibly noted. cath site appearing c/d/i TANYA on CKD stage IVprobably on the dry side of euvolemic now. unfortunately appears to have progressed to ESRD. HD access obtained today. for first run HD tomorrow. percocet since tramadol did not help UTIfinish course of cefdinir Otherwise as above Subjective Delfina Reyna was doing well today. She was going to have her catheter placed and had no questions or concerns. Review of Systems Review of Systems: Constitutional: denies fevers, chills, nausea, vomiting Cardiac: denies chest pain, palpitations GI: denies diarrhea admits constipation : admits increased frequency denies pain with urination Physical Exam Physical Exam: Constitutional WD/WN, vitals as above + morbidly obese, cooperative and comfortable; not in distress ENMT Ears: no hearing impairment Neck normal visual inspection Respiratory normal respiratory effort; no respiratory distress Auscultation: lungs clear to auscultation bilaterally Cardiovascular Rate/Rhythm: regular rate and regular rhythm Vessels: posterior tibial pulses present, dorsalis pedis pulses present and radial pulses present; + abnormal peripheral pulses Extremities: normal capillary refill and + edema Gastrointestinal (Abdomen) Inspection/Auscultation: normal bowel sounds Percussion/Palpation: abdomen soft; abdomen nontender Musculoskeletal no cyanosis or clubbing, extremities motor strength 5/5 Skin no rashes, warm and dry (toe dressing place) Neurologic moves all extremities and awake; no focal motor deficits and not confused Psychiatric A+Ox3, euthymic affect Results & Data Results & Data ([facility]) Vital Signs (Past 12 Hours) Vital Signs Temp Pulse Pulse Resp BP Pulse Ox 01/16/21 06:15 67 01/16/21 03:45 36.8 C 68 18 163/88 H 92 01/15/21 23:00 37 C 74 73 18 147/78 H 91 01/15/21 19:47 37.2 C 99 H 20 157/87 H 93 CBC Results Results Complete Blood Count Results: RBC 3.13 M/uL (4.2-5.4) L 01/16/21 WBC 6.55 K/uL (4.8-10.8) 01/16/21 Hgb 8.3 g/dL (12.0-16.0) L 01/16/21 Hct 28.1 % (37-47) L 01/16/21 Plt Count 243 K/uL (130-400) 01/16/21 Chemistry (BMP) Results BMP Results: Sodium 140 mmol/L (136-145) 01/16/21 Potassium 4.4 mmol/L (3.5-5.1) 01/16/21 Chloride 113 mmol/L (98-107) H 01/16/21 BUN 48 mg/dl (7-18) H 01/16/21 Creatinine 4.51 mg/dl (0.6-1.2) H* 01/16/21 Glucose 87 mg/dl (70-99) 01/16/21 Resident Activity Tracking Resident Involvement: Resident Care Provided Care Provided: Adult Hospital Medicine
[2021-01-16] MEDS ORDERED: Nursing to Pharmacy Communication SCH (07:45)
[2021-01-16 08:00] LABS: BUN Creatinine Ratio 10.6 (10-20); Calcium 8.6 mg/dl (8.5-10.1); Creatinine Clr Calc Pharmacy 15.5 ml/min; Est GFR (African American) 11.1 ml/min; Est GFR (Non-African American) 9.6 ml/min; Potassium 4.4 mmol/L (3.5-5.1)
[2021-01-16] MEDS: INSULIN ASPART 100 UNITS/ML 3 ML PEN SC SCH ×4 (08:10→21:12)
[2021-01-16] MEDS: INSULIN GLARGINE SOLOSTAR 100 UNITS/ML 3 ML PEN SC SCH ×2 (08:33→21:22)
--- NOTE | 2021-01-16 08:41 | History & Physical Bridge Note ---
Date of Service January 16, 2021 History & Physical Bridge Note Patient for permcath insertion today. I have discussed the risks options and benefits of the procedure with the patient. The patient understands the risks options and benefits and agrees to the procedure. Consent was obtained by the vascular PAC per my request. I have examined the patient, reviewed the History & Physical and in the interval since the performance of the History & Physical I have noted the following changes of clinical significance: no changes noted
--- NOTE | 2021-01-16 10:21 | Nephrology Progress Note ---
Date of Service January 16, 2021 Assessment & Plan (1) TANYA (acute kidney injury): Plan: * Cr stable at ~4.6 overnight. EGFR 9.4 cc/min. 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 CKD due to DKD (3) Primary hyperparathyroidism: Plan: * Corrected calcium ~10.6 * Vitamin D low at 20, PTH mildly elevated at 250 * Sensipar 30 mg daily started 01/10/21 (4) Anemia: Plan: * Epogen 10,000 administered 01/10/21, 01/13/21 * Completed 1g IV iron * FOBT - pending (5) Hypertension: Plan: * Avoid JEANETTE/ARB due to TANYA. * Continue Carvedilol. HR appears adequately beta blocked * Hydralazine increased to TID * BP is fluctuating. Continue current therapy and monitor (6) Physical deconditioning: Plan: * Encouraged participation w/ PT Admission and Anticipated Discharge Date Admission Date: January 08, 2021 Subjective Mrs. Reyna was evaluated in her hospital room this morning. She slept poorly last night. She continues to experience early uremic symptoms including nausea and dysgeusia. Review of Systems Constitutional: + weakness; no fever Eyes: no problem reported Ear, Nose, Mouth, Throat: no problem reported Respiratory: no cough and no dyspnea Cardiovascular: no chest pain, no palpitations and no edema Gastrointestinal: no abdominal pain, no nausea, no vomiting and no diarrhea/loose stools Genitourinary: no dysuria and no hematuria Musculoskeletal: no back pain Integumentary: no rash Neurologic: no confusion Physical Exam Constitutional: + obese; not in distress Eyes: PERRL, conjunctivae normal, anicteric sclerae ENMT: external ear and nose normal, oropharynx normal Neck: trachea midline, no thyromegaly Respiratory: normal respiratory effort, lungs clear to auscultation Cardiovascular: Rate/Rhythm: regular rate and regular rhythm Extremities: + edema (1+ pretibial swelling) Gastrointestinal (Abdomen): normal bowel sounds, soft, nontender, no hepatosplenomegaly Skin: no rashes, warm and dry Neurologic: awake; not confused Results & Data ([facility]) Vital Signs (Past 12 Hours) Vital Signs Temp Pulse Pulse Resp BP BP Pulse Ox 01/16/21 07:40 36.7 C 66 18 168/76 H 94 01/16/21 06:15 67 01/16/21 03:45 36.8 C 68 18 163/88 H 92 01/15/21 23:00 37 C 74 73 18 147/78 H 91 Laboratory Results Laboratory Tests 01/16/21 01/16/21 06:38 06:38 WBC 6.55 Hgb 8.3 L Hct 28.1 L Plt Count 243 Sodium 140 Potassium 4.4 Chloride 113 H Carbon Dioxide 20 L BUN 48 H Creatinine 4.51 H* Glucose 87 PG Care Time/CCT Total # of Minutes Spent Total Time Spent with Patient: Total time spent is greater than 50% in coordination of care (as documented) at patient's floor/unit and/or counseling patient: Coding Level of Care Code 79492 Subseq Hosp Care Lvl 3 Diagnoses TANYA (acute kidney injury) N17.9 CKD (chronic kidney disease), stage IV N18.4 Primary hyperparathyroidism E21.0 Anemia D64.9 Anemia type: unspecified type Hypertension I10 Hypertension type: essential hypertension Physical deconditioning R53.81 (1) Anemia Anemia type: unspecified type Qualified Code(s): D64.9 - Anemia, unspecified (2) Hypertension Hypertension type: essential hypertension Qualified Code(s): I10 - Essential (primary) hypertension
[2021-01-16] MEDS: SUCRALFATE 1 GM/10 ML UDC PO SCH ×4 (10:35→21:28)
[2021-01-16] MEDS: hydrALAZINE TAB 50 MG TAB PO SCH ×3 (11:25→21:21)
[2021-01-16] MEDS ORDERED: ceFAZolin 1000MG 1,000 MG/7.5 ML SYR IV ONE (12:00)
[2021-01-16] MEDS ORDERED: LIDOCAINE 1% LOCAL 20 ML VIAL ONE (12:42)
[2021-01-16] MEDS ORDERED: HEPARIN SOD (PORCINE) 5,000 UNITS/ML VIAL ONE (12:42)
[2021-01-16] MEDS ORDERED: MIDAZOLAM HCL 1 MG/ML 2ML VIAL ONE (12:45)
[2021-01-16] MEDS ORDERED: fentaNYL citrate 100 MCG/2 ML VIAL ONE (12:45)
--- NOTE | 2021-01-16 13:34 | Pre Anesthesia Assessment ---
Date of Service January 16, 2021 Pre Sedation Assessment Vital Signs Temp Pulse Pulse Resp BP BP Pulse Ox 01/16/21 13:30 68 16 174/88 H 100 01/16/21 13:25 67 16 167/95 H 99 01/16/21 13:20 67 16 167/97 H 100 01/16/21 13:15 69 16 172/98 H 100 01/16/21 13:05 68 16 168/98 H 99 01/16/21 12:17 36.9 C 67 18 182/84 H 95 01/16/21 11:24 36.5 C 66 18 165/81 H 94 01/16/21 07:40 36.7 C 66 18 168/76 H 94 01/16/21 06:15 67 01/16/21 03:45 36.8 C 68 18 163/88 H 92 01/15/21 23:00 37 C 74 73 18 147/78 H 91 01/15/21 19:47 37.2 C 99 H 20 157/87 H 93 01/15/21 16:00 98 H 01/15/21 15:53 37.0 C 102 H 18 163/87 H 90 Cardiovascular RRR, no murmur, no edema Respiratory normal respiratory effort, lungs clear to auscultation Pre-Sedation Airway Assessment Smoking Status: Never smoker Hx Sleep Apnea: No Short, Thick Neck: No Thyromental Distance: > or= 3.5 Finger Breadths Oral Cavity: + WNL Mallampati Class: IV ASA: ASA4 NPO Status Date of Last Intake of Fluids: 01/15/21 Time of Last Intake of Fluids: 20:00 Date of Last Intake of Solid Food: 01/15/21 Time of Last Intake of Solid Foods: 20:00 Procedure Planning Contraindications for Sedation: none Current Medications Reviewed: Yes Notes The planned sedation has been discussed with the patient. Informed Consent was obtained. I have identified the patient, determined the appropriateness of sedation and have assessed the patient immediately prior to the procedure. All medicine(s) and interventions are by my order.
--- NOTE | 2021-01-16 13:36 | Operative Report ---
Post Operative Report Pre & Post Diagnosis Operation Date: 01/16/21 13:00 Pre-Op Diagnosis: Acute Kidney injury Post-Op Diagnosis: Acute Kidney injury I identified the patient and participated in the time-out.: Yes Procedure Operation Date: 01/16/21 13:00 Actual Procedures p Insertion of Perm catheter, Right internal Jugular approach, ultrasound of Right Internal Jugular Vein, Fluoroscopy of positioning, moderate sedation [id number](Right) - Guanakito Luke MD Surgeon Guanakito Luke MD [employer] Inspector none Estimated Blood Loss 3 Findings Consistent with Post-Op Diagnosis Specimens none Anesthesia Type RN Sedation Complications none Disposition Accompanied Patient To Recovery: No Disposition: Recovery Room Indications This is a 65-year-old female worsening kidney function need of dialysis. PermCath was recommended for access. I have discussed the risks options and benefits of the procedure with the patient. The patient understands the risks options and benefits and agrees to the procedure. Description of Procedure Patient was taken to the angio suite and placed in the supine position. The right side of the neck and chest wall were prepped and draped in a sterile manner. The patient was identified and a timeout performed. Local anesthesia was then administered to the appropriate areas of the neck and chest wall. Ultrasound was then used to locate the right internal jugular vein. The vein compressed easily, had no filing defects, and was patent. The vein was then punctured under direct ultrasound imaging. A guidewire was then passed centrally under fluoroscopic imaging. A stab wound was then made in the anterior chest wall and a 19 cm permcath was passed from the stab wound on the chest wall to the puncture site on the neck. The puncture site was then dilated till the 14Fr peel away sheath was inserted. The permcath was then inserted through the sheath to a central position in the distal superior vena cava. The peel away sheath was then removed. The catheter was then sutured in place using nylon sutures. The puncture was then closed using a 4-0 Vicryl subcuticular suture. Dermabond was used for a dressing on the puncture site. Both ports aspirated and flushed easily and were then packed with heparin. A sterile dressing was applied to the catheter. The patient left the operation room in satisfactory condition and tolerated the procedure well. All needle and sponge counts were correct at the end of the procedure. I attest to the content of the Intraoperative Record and any orders documented therein. Any exceptions are noted below.
--- NOTE | 2021-01-16 13:36 | Post Anesthesia Assessment ---
Date of Service January 16, 2021 Post Sedation Assessment Vital Signs Temp Pulse Pulse Resp BP BP Pulse Ox 01/16/21 13:30 68 16 174/88 H 100 01/16/21 13:25 67 16 167/95 H 99 01/16/21 13:20 67 16 167/97 H 100 01/16/21 13:15 69 16 172/98 H 100 01/16/21 13:05 68 16 168/98 H 99 01/16/21 12:17 36.9 C 67 18 182/84 H 95 01/16/21 11:24 36.5 C 66 18 165/81 H 94 01/16/21 07:40 36.7 C 66 18 168/76 H 94 01/16/21 06:15 67 01/16/21 03:45 36.8 C 68 18 163/88 H 92 01/15/21 23:00 37 C 74 73 18 147/78 H 91 01/15/21 19:47 37.2 C 99 H 20 157/87 H 93 01/15/21 16:00 98 H 01/15/21 15:53 37.0 C 102 H 18 163/87 H 90 Recovery Score Activity: Moves 4 extremities Respiration: Deep Breath/Cough Circulation: +/-20% PreAnes Value Consciousness: Fully Awake Oxygen Saturation: > 92% On Room Air Post Anesthesia Score: 10 Discharge Sedation Level of Care: Fast Track Phase II Post Sedation Plan On clinical assessment, the patient appears to have tolerated the sedation without complications. Patient is recovering as anticipated. Patient will continue to be monitored by nursing and may be discharged when sedation discharge criteria are met per below protocol. Upon Completions of procedure up to 15 minutes continue every 5 minute vital signs and the P.A.R. score; then discharge to a Phase I or Fast Track to Phase II per the following guidelines: * Discharge Patient to appropriate Phase II area if PAR is 8 or greater or return to pre- procedure baseline. The post - procedure orders will be as directed. * If PAR score is less than 8 or not return to pre-procedure baseline then patient will follow Phase I monitoring till PAR is reached for Phase II. The Phase I may be done in procedure room or may call to secure a Phase I area. * If naloxone or flumazenil are used for reversal, hold in Phase I for continued monitoring from when last reversal dose was given for a minimum of 60 minutes or longer pending the nurse and/or physician discretion of patient condition before discharge to Phase II. Please call the Sedation Physician to re-evaluate and complete post-note for discharge to Phase II area. Do NOT discharge from procedure sedation or Phase 1 until post- sedation evaluation note is complete by procedure /sedation MD Sedation Discharge Instructions to be given to the patient at discharge to home.
[2021-01-16] MEDS: carvediloL 25 MG TAB PO SCH ×2 (13:59→21:21)
[2021-01-16] MEDS: BUMETANIDE 1 MG TAB PO SCH (13:59)
[2021-01-16] MEDS: CINACALCET HCL 30 MG TAB PO SCH (13:59)
[2021-01-16] MEDS: CLOPIDOGREL BISULFATE 75 MG TAB PO SCH (13:59)
[2021-01-16] MEDS: SENNA 8.6 MG TAB PO SCH (14:00)
[2021-01-16] MEDS: POTASSIUM CHLORIDE CRTAB 20 MEQ TABCR PO SCH (14:00)
[2021-01-16 16:32] LABS: Hepatitis B Surface Ab Quant < 3.10 mIU/mL (>or=10mIU/mL Immune); Hepatitis B Surface Antibody Non-Immune
[2021-01-16 16:43] LABS: Hepatitis B Surf Ag Rflx Conf Neg (Neg)
[2021-01-16] MEDS ORDERED: oxyCODONE/ACETAMINOPHEN 5mg/325mg TAB PO STA (17:28)
--- NOTE | 2021-01-16 17:34 | Billing Data ---
Date of Service January 16, 2021 Coding Level of Care Code 73904 Subseq Hosp Care Lvl 2
[2021-01-16] MEDS: oxyCODONE/ACETAMINOPHEN 5mg/325mg TAB PO PRN (21:34)
[2021-01-17] MEDS: oxyCODONE/ACETAMINOPHEN 5mg/325mg TAB PO PRN ×2 (06:19→13:15)
[2021-01-17] MEDS: HEPARIN SOD 5,000 UNIT/0.5 ML VIAL SQ SCH ×3 (06:20→22:09)
[2021-01-17 06:33] LABS: Basophils # (auto) 0.06 K/uL (0-0.2); Basophils % (auto) 0.9 %; Eosinophils # (auto) 0.31 K/uL (0-0.5); Eosinophils % (auto) 4.6 %; Hematocrit (blood only) 29.7 % (37-47); Hemoglobin 8.9 g/dL (12.0-16.0); Immature Granulocytes # (auto) 0.04 K/uL (0.00-0.02); Immature Granulocytes % (auto) 0.6 %; Lymphocytes # (auto) 1.86 K/uL (1.2-3.4); Lymphocytes % (auto) 27.5 %; Mean Corpuscular Hemoglobin 26.9 pg (25-34); Mean Corpuscular Volume 89.7 fL (80-100); Mean Platelet Volume 10.2 fL (7.4-10.4); Monocytes # (auto) 0.79 K/uL (0.11-0.59); Monocytes % (auto) 11.7 %; Neutrophils % (auto) 54.7 %; Platelet Count 238 K/uL (130-400); RDW Coefficient of Variation 16.7 % (11.5-14.5); RDW Standard Deviation 51.7 fL (36.4-46.3); Red Blood Count 3.31 M/uL (4.2-5.4); White Blood Count 6.76 K/uL (4.8-10.8)
--- NOTE | 2021-01-17 06:44 | Hospitalist Progress Note ---
Date of Service January 17, 2021 Assessment & Plan (1) Acute kidney injury superimposed on CKD: Plan: 65-year-old female past medical history significant for DM II, CKD, hypertension, hyperlipidemia, nonobstructive CAD, diastolic CHF, anemia, admitted for TANYA and short of breath suspected to be secondary to fluid overload. TANYA on CKD Given initial concern for fluid overload on exam/imaging, initially thought to be to be cardiorenal vs. now potentially 2/2 diuretics after worsening with diuresis and ultimately appears progressing to ESRD. - Creatinine 4.69, with baseline ~2.5 - Initially on Lasix 40mg IV BID transitioned to Bumex BID and then decreased dosing to Bumex QAM as Cr. continued to climb over the hospitalization - Renal US unremarkable - Nephrology consulted - Vascular consulted - perm. cath placed 01/16, going for dialysis session today. Will get second session tomorrow. Complicated UTI, treated: -Urine cultures grew gram negative bacilli, pt has symptoms of urinary frequency and elevated blood sugar -completed - Omnicef 300mg PO qd x7days Primary hyperparathyroidism: -Corrected calcium elevated -Vitamin D low & PTH high - consistent with PHPT -Sensipar 30 mg daily started 01/10/21 HFpEF: -History of diastolic CHF, with symptoms and studies suggestive of exacerbation this admission. Prior echo from 2019 showed 55-60% EF -BNP elevated to > 35,000, with mild interstitial pulmonary edema on chest x- ray. -Echo repeated: left ventricular systolic function is low normal, aortic valve sclerosis mild, moderate mitral annular calcification, EF 50-55% slight reduced from 2019) -Diuretics as described above. Hold metolazone at this time. Low-sodium diet. Nonobstructive CAD -Continue Plavix. Left foot pain: -Presents with several days of intermittent stabbing left foot pain. -DVT studies negative in bilateral lower extremities. -Several possible etiologies, including diabetic neuropathy, gout, bony infection. -Uric acid levels elevated (7.8), Possible gout, but also could be elevated secondary to CKD -X-ray left foot: no fx or signs of osteomyelitis -Consider medications such as gabapentin for neuropathy if evaluation is otherwise negative. Right Ankle Pain: -c/o of right ankle pain, monitor -ZENON hose for swelling Diabetic Foot Ulcer: -suspicious ulcer on right base of big toe -wound care consulted, wound wrapped DM2: -Patient is on sliding scale insulin in the outpatient setting. -A1c in 10/2019 of 8.2%. A1C now 10.2%, due to noncompliance. Anemia: -History of, with baseline hemoglobin of ~10. Has required Epogen in the past for decreased hemoglobin in the setting of TANYA on CKD. -Hemoglobin on admission of 8.8, currently stable -continue 5 days of Venofer 200 mg IV -FOBT ordered, pending -Consider blood transfusion for Hgb < 7.5, repeat CBC in am Hypertension: -Continue home carvedilol, hydralazine. -Per nephro: hydralazine increased to 100mg PO BID, amlodipine can be considered if HTN persists --> further increased Hydralazine to 100mg PO TID, BP better GERD: -Continue home PPI. Anxiety: -added small dose of PRN Lorazepam for anxiety associated with potential for needing to initiate dialysis (reviewed side effects and possible complications of the medication) Elevated TSH -TSH elevated, normal T4 -likely due to stress of being in hospital -should monitor in outpatient setting to exclude hypothyroidism Constipation, improved - PRN Miralax - added Senna CODE STATUS: Full code FEN: Heart healthy, low-sodium, DM2 diet DVT prophylaxis: Heparin 3 times daily subq Dispo: Med/Surg with Telemetry Admission and Anticipated Discharge Date Admission Date: January 08, 2021 Supervising Physician Co-Signing Physician Notes I personally examined the patient and verified all weaver points of history and exam, discussed case, and agree with decision making with Dr Goel Nauseated and vomiting. Does note things got worse after taking oxycodone. Vitals noted, sitting up, appearing nauseated, actively vomitingyellow watery vomitus. HEENT normocephalic atraumatic mucous membranes moist. Breathing unlabored no accessory muscle use good effort. Dialysis cath site clean/dry/intact, no tracking erythema or crepitus. Abdomen is soft nondistended nontender no masses organomegaly ESRDnow on dialysis UTIfinish course of cefdinir Nausea vomitingnonspecificmay be a bit of uremic, may be a bit side effect of pain medicine, or other medicinechange oxycodone back to tramadol (will schedule Tylenol for pain) and treat nausea with scheduled Zofran, twice daily Protonix, twice daily Pepcid for now. Follow. Otherwise as above Subjective Patient was seen at bedside this morning. Patient was feeling okay this morning, her pain was somewhat controlled last night. She said the swelling in her legs is better than when she first came in as well. Denies fevers, chills, shortness of breath, chest pain. She will be going to dialysis today. Physical Exam Constitutional: WD/WN, vitals as above Eyes: PERRL, conjunctivae normal, anicteric sclerae Respiratory: normal respiratory effort, lungs clear to auscultation Cardiovascular: RRR, no murmur, no edema Gastrointestinal (Abdomen): normal bowel sounds, soft, nontender, no hepatosplenomegaly Skin: Hemodialysis port in place right upper chest without any signs of infection or bleeding. Results & Data Results & Data ([facility]) Vital Signs (Past 12 Hours) Vital Signs Temp Pulse Pulse Resp BP BP Pulse Ox 01/17/21 04:01 36.9 C 68 18 169/73 H 91 01/17/21 00:01 36.9 C 73 18 166/70 H 91 01/16/21 22:18 71 01/16/21 21:19 71 160/78 H 01/16/21 19:00 36.6 C 71 18 175/76 H 94 Resident Activity Tracking Resident Involvement: Resident Care Provided Care Provided: Adult Hospital Medicine
[2021-01-17] MEDS ORDERED: EPOETIN ALFA 10,000 UNITS/ML VIAL IV ONE (07:00)
[2021-01-17] MEDS ORDERED: SODIUM CHLORIDE 0.9% 1000ML 1,000 ML IV PRN (07:00)
[2021-01-17 07:29] LABS: BUN Creatinine Ratio 10.6 (10-20); Calcium 8.8 mg/dl (8.5-10.1); Creatinine Clr Calc Pharmacy 15.2 ml/min; Est GFR (African American) 10.6 ml/min; Est GFR (Non-African American) 9.1 ml/min; Potassium 4.9 mmol/L (3.5-5.1)
[2021-01-17] MEDS: SENNA 8.6 MG TAB PO SCH (08:14)
[2021-01-17] MEDS: CLOPIDOGREL BISULFATE 75 MG TAB PO SCH (08:14)
[2021-01-17] MEDS: PANTOprazole 40 MG TAB PO SCH ×2 (08:15→22:06)
[2021-01-17] MEDS: POTASSIUM CHLORIDE CRTAB 20 MEQ TABCR PO SCH (08:15)
[2021-01-17] MEDS: BUMETANIDE 1 MG TAB PO SCH (08:15)
[2021-01-17] MEDS: INSULIN ASPART 100 UNITS/ML 3 ML PEN SC SCH ×4 (08:15→21:57)
[2021-01-17] MEDS: CINACALCET HCL 30 MG TAB PO SCH (08:15)
[2021-01-17] MEDS: INSULIN GLARGINE SOLOSTAR 100 UNITS/ML 3 ML PEN SC SCH ×2 (08:17→22:05)
[2021-01-17] MEDS: SUCRALFATE 1 GM/10 ML UDC PO SCH ×4 (08:19→22:07)
[2021-01-17] MEDS: hydrALAZINE TAB 50 MG TAB PO SCH ×4 (08:20→22:04)
[2021-01-17] MEDS: carvediloL 25 MG TAB PO SCH ×3 (08:20→22:04)
--- NOTE | 2021-01-17 09:52 | Nephrology Progress Note ---
Date of Service January 17, 2021 Assessment & Plan (1) ESRD (end stage renal disease): Plan: * ESRD due to CRS, DKD. Patient has developed progressive renal dysfunction in response to diuretic therapy and remains volume overloaded w/ uremic symptoms * Awaiting results of SIEP/UIEP * Remains on Cinacalcet therapy for secondary HPT * Patient is nonoliguric. Continue Bumex 1 mg po qAM * 1st run HD later this morning. Will attempt 1.5L UF * Will schedule 2nd HD for Sat AM and attempt 2L UF * Case management is setting up OP HD at [facility] (2) Primary hyperparathyroidism: Plan: * Corrected calcium ~10.6 * Vitamin D low at 20, PTH mildly elevated at 250 * Sensipar 30 mg daily started 01/10/21 (3) Anemia: Plan: * Epogen 10,000 administered 01/10/21, 01/13/21 * Completed 1g IV iron * FOBT - pending (4) Hypertension: Plan: * Avoid JEANETTE/ARB due to TANYA. * Continue Carvedilol. HR appears adequately beta blocked * Hydralazine increased to TID * Expect BP to improve w/ UF (5) Physical deconditioning: Plan: * Encouraged participation w/ PT Admission and Anticipated Discharge Date Admission Date: January 08, 2021 Subjective Mrs. Reyna was evaluated in her hospital room this morning. She c/o mild discomfort from having her R IJ THC placed. She denies fever, angina, dyspnea. Mrs. Reyna is agreeable to starting HD today Review of Systems Constitutional: + weakness; no fever Eyes: no problem reported Ear, Nose, Mouth, Throat: no problem reported Respiratory: no cough and no dyspnea Cardiovascular: no chest pain, no palpitations and no edema Gastrointestinal: no abdominal pain, no nausea, no vomiting and no diarrhea/loose stools Genitourinary: no dysuria and no hematuria Musculoskeletal: no back pain Integumentary: no rash Neurologic: no confusion Physical Exam Constitutional: + obese; not in distress Eyes: PERRL, conjunctivae normal, anicteric sclerae ENMT: external ear and nose normal, oropharynx normal Neck: trachea midline, no thyromegaly Respiratory: normal respiratory effort, lungs clear to auscultation Cardiovascular: Rate/Rhythm: regular rate and regular rhythm Extremities: + edema (1+ pretibial swelling) Gastrointestinal (Abdomen): normal bowel sounds, soft, nontender, no hepatosplenomegaly Skin: no rashes, warm and dry Neurologic: awake; not confused Results & Data ([facility]) Vital Signs (Past 12 Hours) Vital Signs Temp Pulse Pulse Pulse Resp BP BP 01/17/21 09:20 66 185/79 H 01/17/21 09:00 65 178/83 H 01/17/21 08:39 65 179/77 H 01/17/21 08:30 37.1 C 67 01/17/21 07:53 67 01/17/21 07:00 37.1 C 69 18 154/68 H 01/17/21 04:01 36.9 C 68 18 169/73 H 01/17/21 00:01 36.9 C 73 18 166/70 H 01/16/21 22:18 71 Pulse Ox 01/17/21 09:20 01/17/21 09:00 01/17/21 08:39 01/17/21 08:30 01/17/21 07:53 01/17/21 07:00 94 01/17/21 04:01 91 01/17/21 00:01 91 01/16/21 22:18 Laboratory Results Laboratory Tests 01/10/21 01/14/21 01/17/21 10:13 08:39 06:21 WBC 6.76 Hgb 8.9 L Hct 29.7 L Plt Count 238 Sodium Potassium Chloride Carbon Dioxide BUN Creatinine Glucose Calcium Transferrin % Sat 15 Ferritin 127.0 Serum Immunofixation Pending [place]/Lambda Ratio Pending 01/17/21 06:21 WBC Hgb Hct Plt Count Sodium 140 Potassium 4.9 Chloride 113 H Carbon Dioxide 21 BUN 50 H Creatinine 4.69 H* Glucose 125 H Calcium 8.8 Transferrin % Sat Ferritin Serum Immunofixation [place]/Lambda Ratio PG Care Time/CCT Total # of Minutes Spent Total Time Spent with Patient: Total time spent is greater than 50% in coordination of care (as documented) at patient's floor/unit and/or counseling patient: Coding Level of Care Code 21681 Subseq Hosp Care Lvl 3 Diagnoses Primary hyperparathyroidism E21.0 Anemia D64.9 Anemia type: unspecified type Hypertension I10 Hypertension type: essential hypertension Physical deconditioning R53.81 ESRD (end stage renal disease) N18.6 (1) Anemia Anemia type: unspecified type Qualified Code(s): D64.9 - Anemia, unspecified (2) Hypertension Hypertension type: essential hypertension Qualified Code(s): I10 - Essential (primary) hypertension
[2021-01-17] MEDS ORDERED: FAMOTIDINE 20 MG in SYRINGE 3 ML IV ONE (16:15)
[2021-01-17] MEDS: ONDANSETRON INJ 2 MG/ML 2 ML VIAL IV SCH ×2 (16:45→22:08)
--- NOTE | 2021-01-17 17:01 | Billing Data ---
Date of Service January 17, 2021 Coding Level of Care Code 75915 Subseq Hosp Care Lvl 3
[2021-01-17] MEDS: ACETAMINOPHEN 325 MG TAB PO SCH (22:07)
[2021-01-17] MEDS: traMADol HCL 50 MG TABLET PO SCH (22:12)
[2021-01-18] MEDS: ONDANSETRON INJ 2 MG/ML 2 ML VIAL IV SCH ×3 (03:18→14:47)
[2021-01-18] MEDS: ACETAMINOPHEN 325 MG TAB PO SCH ×3 (06:00→21:43)
[2021-01-18] MEDS: HEPARIN SOD 5,000 UNIT/0.5 ML VIAL SQ SCH ×3 (06:01→22:07)
[2021-01-18 06:06] LABS: Basophils # (auto) 0.07 K/uL (0-0.2); Basophils % (auto) 0.9 %; Eosinophils # (auto) 0.28 K/uL (0-0.5); Eosinophils % (auto) 3.8 %; Hematocrit (blood only) 29.5 % (37-47); Hemoglobin 8.8 g/dL (12.0-16.0); Immature Granulocytes # (auto) 0.03 K/uL (0.00-0.02); Immature Granulocytes % (auto) 0.4 %; Lymphocytes # (auto) 1.31 K/uL (1.2-3.4); Lymphocytes % (auto) 17.8 %; Mean Corpuscular Hemoglobin 26.8 pg (25-34); Mean Corpuscular Hgb Conc 29.8 g/dL (32-36); Mean Corpuscular Volume 89.9 fL (80-100); Mean Platelet Volume 10.6 fL (7.4-10.4); Monocytes # (auto) 0.88 K/uL (0.11-0.59); Monocytes % (auto) 11.9 %; Neutrophils % (auto) 65.2 %; Platelet Count 208 K/uL (130-400); RDW Standard Deviation 54.1 fL (36.4-46.3); Red Blood Count 3.28 M/uL (4.2-5.4); White Blood Count 7.37 K/uL (4.8-10.8)
[2021-01-18 06:53] LABS: BUN Creatinine Ratio 9.8 (10-20); Calcium 8.6 mg/dl (8.5-10.1); Creatinine Clr Calc Pharmacy 19.5 ml/min; Est GFR (African American) 14.5 ml/min; Est GFR (Non-African American) 12.5 ml/min; Potassium 4.9 mmol/L (3.5-5.1)
[2021-01-18] MEDS ORDERED: SODIUM CHLORIDE 0.9% 1000ML 1,000 ML IV PRN (07:00)
[2021-01-18] MEDS ORDERED: HEPARIN SOD (PORCINE) 1000 UNIT/ML IV ONE (07:00)
[2021-01-18] MEDS ORDERED: HEPARIN SOD (PORCINE) 1000 UNIT/ML IV SCH (07:00)
[2021-01-18] MEDS ORDERED: EPOETIN ALFA 10,000 UNITS/ML VIAL IV ONE (07:00)
--- NOTE | 2021-01-18 07:12 | Hospitalist Progress Note ---
Date of Service January 18, 2021 Assessment & Plan (1) Acute kidney injury superimposed on CKD: Plan: 65-year-old female past medical history significant for DM II, CKD, hypertension, hyperlipidemia, nonobstructive CAD, diastolic CHF, anemia, admitted for TANYA and short of breath suspected to be secondary to fluid overload. TANYA on CKD Given initial concern for fluid overload on exam/imaging, initially thought to be to be cardiorenal vs. now potentially 2/2 diuretics after worsening with diuresis and ultimately appears progressing to ESRD. - Creatinine 4.69, with baseline ~2.5 - Initially on Lasix 40mg IV BID transitioned to Bumex BID and then decreased dosing to Bumex QAM as Cr. continued to climb over the hospitalization - Renal US unremarkable - Nephrology consulted - Vascular consulted - perm. cath placed 01/16, received dialysis first session 01/17, second session earlier today 01/18. Plan for her to get next dialysis session Saturday 01/20. Complicated UTI, treated: -Urine cultures grew gram negative bacilli, pt has symptoms of urinary frequency and elevated blood sugar -completed - Omnicef 300mg PO qd x7days Primary hyperparathyroidism: -Corrected calcium elevated -Vitamin D low & PTH high - consistent with PHPT -Sensipar 30 mg daily started 01/10/21 HFpEF: -History of diastolic CHF, with symptoms and studies suggestive of exacerbation this admission. Prior echo from 2019 showed 55-60% EF -BNP elevated to > 35,000, with mild interstitial pulmonary edema on chest x- ray. -Echo repeated: left ventricular systolic function is low normal, aortic valve sclerosis mild, moderate mitral annular calcification, EF 50-55% slight reduced from 2019) -Diuretics as described above. Hold metolazone at this time. Low-sodium diet. Nonobstructive CAD -Continue Plavix. Left foot pain: -Presents with several days of intermittent stabbing left foot pain. -DVT studies negative in bilateral lower extremities. -Several possible etiologies, including diabetic neuropathy, gout, bony infection. -Uric acid levels elevated (7.8), Possible gout, but also could be elevated secondary to CKD -X-ray left foot: no fx or signs of osteomyelitis -Consider medications such as gabapentin for neuropathy if evaluation is otherwise negative. Right Ankle Pain: -c/o of right ankle pain, monitor -ZENON hose for swelling Diabetic Foot Ulcer: -suspicious ulcer on right base of big toe -wound care consulted, wound wrapped DM2: -Patient is on sliding scale insulin in the outpatient setting. -A1c in 10/2019 of 8.2%. A1C now 10.2%, due to noncompliance. Anemia: -History of, with baseline hemoglobin of ~10. Has required Epogen in the past for decreased hemoglobin in the setting of TANYA on CKD. -Hemoglobin on admission of 8.8, currently stable -continue 5 days of Venofer 200 mg IV -FOBT ordered, pending -Consider blood transfusion for Hgb < 7.5, repeat CBC in am Hypertension: -Continue home carvedilol, hydralazine. -Per nephro: hydralazine increased to 100mg PO BID, amlodipine can be considered if HTN persists --> further increased Hydralazine to 100mg PO TID, BP better GERD: -Continue home PPI. Anxiety: -added small dose of PRN Lorazepam for anxiety associated with potential for needing to initiate dialysis (reviewed side effects and possible complications of the medication) Elevated TSH -TSH elevated, normal T4 -likely due to stress of being in hospital -should monitor in outpatient setting to exclude hypothyroidism Constipation, improved - PRN Miralax - added Senna CODE STATUS: Full code FEN: Heart healthy, low-sodium, DM2 diet DVT prophylaxis: Heparin 3 times daily subq Dispo: Med/Surg with Telemetry Admission and Anticipated Discharge Date Admission Date: January 08, 2021 Supervising Physician Co-Signing Physician Notes I personally examined the patient and verified all weaver points of history and exam, discussed case, and agree with decision making with Dr Goel notes she's hangry! Nausea vomiting have resolved. I was informed at 1245 that her was present with lots of questions, I was held up with multiple other tasks, and asked that he be allowed to stay slightly past the visiting time limit so that I would be able to answer his questionsI got to her room by about 1:10 PM, but whenever he ordered the overhead that visiting hours were over for the early session, he left. Patient herself was okay with this, and notes that it is no big deal. Vitals noted, pleasant no distress. HEENT normocephalic atraumatic mucous membranes moist. Breathing unlabored no accessory muscle use good effort. Skin shows no rashes no pallor or icterus. Neuro without focal deficits. ESRDnow on dialysisNext treatment Wednesday, case management working on outpatie nt treatment. She overall seems to be improving. UTIfinished course of cefdinir Nausea vomitingimprovedwill switch Zofran back to as needed Otherwise as above Subjective Patient was seen at the bedside this morning. Patient stated she is doing better this morning. Last night she had an episode of vomiting but felt better after the nausea medication was given to her. Patient went for second dialysis session today. Patient stated she feels her leg swelling has gotten better. Denies chest pain, fevers, chills. Physical Exam Constitutional: WD/WN, vitals as above Eyes: PERRL, conjunctivae normal, anicteric sclerae Respiratory: normal respiratory effort, lungs clear to auscultation Cardiovascular: RRR, no murmur, no edema Gastrointestinal (Abdomen): normal bowel sounds, soft, nontender, no hepatosplenomegaly Skin: Swelling in bilateral legs but no pitting edema. Right upper chest dialysis port without bleeding or erythema. Results & Data Results & Data ([facility]) Vital Signs (Past 12 Hours) Vital Signs Temp Pulse Pulse Resp BP Pulse Ox 01/18/21 03:53 36.7 C 70 18 162/65 H 91 01/18/21 00:30 36.8 C 75 18 152/72 H 90 01/17/21 22:02 73 182/74 H 01/17/21 20:08 73 Resident Activity Tracking Resident Involvement: Resident Care Provided Care Provided: Adult Hospital Medicine
[2021-01-18] MEDS: INSULIN ASPART 100 UNITS/ML 3 ML PEN SC SCH ×4 (07:41→21:38)
[2021-01-18] MEDS: INSULIN GLARGINE SOLOSTAR 100 UNITS/ML 3 ML PEN SC SCH ×2 (08:41→21:39)
--- NOTE | 2021-01-18 11:53 | Nephrology Progress Note ---
Date of Service January 18, 2021 Assessment & Plan (1) ESRD (end stage renal disease): Plan: New start on hemodialysis after admitted to the hospital with volume overload, elevated blood pressure in worsening renal function with oliguria. Had tunneled dialysis catheter on 01/16/2021. Had 1st dialysis on 01/17/2021. -- Getting 2nd dialysis treatment today, otherwise tolerating well -- plan for next dialysis on Wednesday -- left arm nephrology precaution for future AV fistula, dose medications for GFR less than 10. -- discontinue oral potassium supplement, dialysis with 3K bath -- received IV Venofer 1 g, Epogen 97161 units with dialysis today. Will follow (2) Hypertension: (3) Anemia: Admission and Anticipated Discharge Date Admission Date: January 08, 2021 Giovanni Mathis was seen during dialysis, This is her 2nd dialysis treatment,she has been tolerating dialysis well. Blood pressure was running high, tolerating UF. Denies any headache, chest pain. Tunneled dialysis catheter has been functioning well, however she complains of some pain with the catheter.. Review of Systems Review of Systems: Detailed review of system was otherwise unremarkable except mentioned above. Physical Exam Constitutional: well developed and well nourished; no acute distress Respiratory: normal respiratory effort, lungs clear to auscultation Cardiovascular: RRR, no murmur, no edema Right IJ tunneled dialysis catheter, no active bleeding or erythema. Neurologic: moves all extremities and awake; not confused Psychiatric: A+Ox3, euthymic affect Results & Data ([facility]) Vital Signs (Past 12 Hours) Vital Signs Temp Pulse Pulse Pulse Resp BP BP 01/18/21 11:40 67 193/82 H 01/18/21 11:20 67 191/83 H 01/18/21 11:00 67 199/80 H 01/18/21 10:40 69 196/79 H 01/18/21 10:20 66 188/81 H 01/18/21 10:00 66 188/81 H 01/18/21 09:40 65 186/80 H 01/18/21 09:14 67 194/84 H 01/18/21 09:10 36.9 C 68 01/18/21 08:00 68 01/18/21 07:15 36.7 C 68 20 177/67 H 01/18/21 03:53 36.7 C 70 18 162/65 H 01/18/21 00:30 36.8 C 75 18 152/72 H Pulse Ox 01/18/21 11:40 01/18/21 11:20 01/18/21 11:00 01/18/21 10:40 01/18/21 10:20 01/18/21 10:00 01/18/21 09:40 01/18/21 09:14 01/18/21 09:10 01/18/21 08:00 01/18/21 07:15 92 01/18/21 03:53 91 01/18/21 00:30 90 PG Care Time/CCT Total # of Minutes Spent Total Time Spent with Patient: Total time spent is greater than 50% in coordination of care (as documented) at patient's floor/unit and/or counseling patient: Coding Level of Care Code 24852 Subseq Hosp Care Lvl 3 Diagnoses ESRD (end stage renal disease) N18.6 Hypertension I10 Hypertension type: essential hypertension Anemia D64.9 Anemia type: unspecified type (1) Hypertension Hypertension type: essential hypertension Qualified Code(s): I10 - Essential (primary) hypertension (2) Anemia Anemia type: unspecified type Qualified Code(s): D64.9 - Anemia, unspecified
[2021-01-18] MEDS: POTASSIUM CHLORIDE CRTAB 20 MEQ TABCR PO SCH (12:07)
[2021-01-18] MEDS: PANTOprazole 40 MG TAB PO SCH ×2 (13:55→21:42)
[2021-01-18] MEDS: CINACALCET HCL 30 MG TAB PO SCH (13:56)
[2021-01-18] MEDS: hydrALAZINE TAB 50 MG TAB PO SCH ×3 (13:56→21:40)
[2021-01-18] MEDS: carvediloL 25 MG TAB PO SCH ×2 (13:56→21:40)
[2021-01-18] MEDS: SENNA 8.6 MG TAB PO SCH (13:56)
[2021-01-18] MEDS: CLOPIDOGREL BISULFATE 75 MG TAB PO SCH (13:56)
[2021-01-18] MEDS: BUMETANIDE 1 MG TAB PO SCH (13:56)
[2021-01-18] MEDS: SUCRALFATE 1 GM/10 ML UDC PO SCH ×4 (13:57→21:40)
[2021-01-18] MEDS: traMADol HCL 50 MG TABLET PO SCH ×2 (13:58→22:06)
--- NOTE | 2021-01-18 17:18 | Billing Data ---
Date of Service January 18, 2021 Coding Level of Care Code 88178 Subseq Hosp Care Lvl 2
[2021-01-18] MEDS: ONDANSETRON INJ 2 MG/ML 2 ML VIAL IV PRN (18:05)
[2021-01-19] MEDS: ACETAMINOPHEN 325 MG TAB PO SCH ×4 (05:47→21:13)
[2021-01-19] MEDS: HEPARIN SOD 5,000 UNIT/0.5 ML VIAL SQ SCH ×3 (05:49→21:15)
--- NOTE | 2021-01-19 07:06 | Hospitalist Progress Note ---
Date of Service January 19, 2021 Assessment & Plan (1) Acute kidney injury superimposed on CKD: Plan: 65-year-old female past medical history significant for DM II, CKD, hypertension, hyperlipidemia, nonobstructive CAD, diastolic CHF, anemia, admitted for TANYA and short of breath suspected to be secondary to fluid overload. TANYA on CKD Given initial concern for fluid overload on exam/imaging, initially thought to be to be cardiorenal vs. now potentially 2/2 diuretics after worsening with diuresis and ultimately appears progressing to ESRD. - Creatinine 4.69, with baseline ~2.5 - Initially on Lasix 40mg IV BID transitioned to Bumex BID and then decreased dosing to Bumex QAM as Cr. continued to climb over the hospitalization - Renal US unremarkable - Nephrology consulted - Vascular consulted - perm. cath placed 01/16, received dialysis first session 01/17, second session earlier yesterday 01/18. Plan for her to get next dialysis session Saturday 01/20. Complicated UTI, treated: -Urine cultures grew gram negative bacilli, pt has symptoms of urinary frequency and elevated blood sugar -completed - Omnicef 300mg PO qd x7days Primary hyperparathyroidism: -Corrected calcium elevated -Vitamin D low & PTH high - consistent with PHPT -Sensipar 30 mg daily started 01/10/21 HFpEF: -History of diastolic CHF, with symptoms and studies suggestive of exacerbation this admission. Prior echo from 2019 showed 55-60% EF -BNP elevated to > 35,000, with mild interstitial pulmonary edema on chest x- ray. -Echo repeated: left ventricular systolic function is low normal, aortic valve sclerosis mild, moderate mitral annular calcification, EF 50-55% slight reduced from 2019) -Diuretics as described above. Hold metolazone at this time. Low-sodium diet. Nonobstructive CAD -Continue Plavix. Left foot pain: -Presents with several days of intermittent stabbing left foot pain. -DVT studies negative in bilateral lower extremities. -Several possible etiologies, including diabetic neuropathy, gout, bony infection. -Uric acid levels elevated (7.8), Possible gout, but also could be elevated secondary to CKD -X-ray left foot: no fx or signs of osteomyelitis -Consider medications such as gabapentin for neuropathy if evaluation is otherwise negative. Right Ankle/Foot Pain: -c/o of right ankle pain, now has right foot pain worse with pressure on foot or dorsiflexion/wriggling toes up. -ZENON hose for swelling -Less likely bone fracture or abnormality since patient has had no trauma to the area. More likely pain secondary to swelling. -Ordered Voltaren topical tid for patient. Diabetic Foot Ulcer: -suspicious ulcer on right base of big toe -wound care consulted, wound wrapped DM2: -Patient is on sliding scale insulin in the outpatient setting. -A1c in 10/2019 of 8.2%. A1C now 10.2%, due to noncompliance. Anemia: -History of, with baseline hemoglobin of ~10. Has required Epogen in the past for decreased hemoglobin in the setting of TANYA on CKD. -Hemoglobin on admission of 8.8, currently stable -continue 5 days of Venofer 200 mg IV -FOBT ordered, pending -Consider blood transfusion for Hgb < 7.5, repeat CBC in am Hypertension: -Continue home carvedilol, hydralazine. -Per nephro: hydralazine increased to 100mg PO BID, amlodipine can be considered if HTN persists --> further increased Hydralazine to 100mg PO TID, BP better GERD: -Continue home PPI. Anxiety: -added small dose of PRN Lorazepam for anxiety associated with potential for ne eding to initiate dialysis (reviewed side effects and possible complications of the medication) Elevated TSH -TSH elevated, normal T4 -likely due to stress of being in hospital -should monitor in outpatient setting to exclude hypothyroidism Constipation, improved - PRN Miralax - added Senna CODE STATUS: Full code FEN: Heart healthy, low-sodium, DM2 diet DVT prophylaxis: Heparin 3 times daily subq Dispo: Med/Surg with Telemetry Admission and Anticipated Discharge Date Admission Date: January 08, 2021 Supervising Physician Co-Signing Physician Notes I personally examined the patient and verified all weaver points of history and exam, discussed case, and agree with decision making with Dr Goel feeling ok. no new complaints. for HD again tomorrow. Vitals noted, pleasant no distress. HEENT normocephalic atraumatic mucous membranes moist. Breathing unlabored no accessory muscle use good effort. Skin shows no rashes no pallor or icterus. Neuro without focal deficits. ESRDnow on dialysisNext treatment tomorrow, case management working on outpatient treatment. She overall seems to be improving. hopefully home soon UTIfinished course of cefdinir Nausea vomitingimproved. Otherwise as above Subjective Patient was seen at the bedside this morning. Patient stated she is doing better this morning. She was hungry yesterday but when she got her dinner she did not have much of an appetite and felt nauseous again. She was given the anti-emetic medication and felt better after that. This morning she was okay with eating her rice crispy treat. She says she has new right foot pain whenever she puts weight on the foot, especially at heel to mid-foot area, and with trying to wiggle her toes, especially with the big toe. She said she had an accident 20 years ago where her ankle was fully broken but fixed by an orthopedic surgeon and had not had problems with it since. No trauma to the area since. Denies fevers, chills, chest pain, shortness of breath. Physical Exam Constitutional: WD/WN, vitals as above Eyes: PERRL, conjunctivae normal, anicteric sclerae Respiratory: normal respiratory effort, lungs clear to auscultation Cardiovascular: RRR, S1 and S2, II/ crescendo-decrescendo systolic murmur. Patient said sometimes her murmur is there sometimes it isn't. Gastrointestinal (Abdomen): normal bowel sounds, soft, nontender, no hepatos plenomegaly Skin: 1+ pitting edema bilaterally at lower extremities. Results & Data Results & Data ([facility]) Vital Signs (Past 12 Hours) Vital Signs Temp Pulse Pulse Pulse Resp BP Pulse Ox 01/19/21 00:05 36.4 C L 71 20 180/78 H 93 01/18/21 22:20 71 01/18/21 21:37 70 177/87 H 01/18/21 19:40 36.7 C 71 18 156/70 H 94 Resident Activity Tracking Resident Involvement: Resident Care Provided Care Provided: Adult Hospital Medicine
[2021-01-19 07:40] LABS: Basophils # (auto) 0.06 K/uL (0-0.2); Basophils % (auto) 0.8 %; Eosinophils # (auto) 0.35 K/uL (0-0.5); Eosinophils % (auto) 4.4 %; Hemoglobin 8.9 g/dL (12.0-16.0); Immature Granulocytes # (auto) 0.05 K/uL (0.00-0.02); Immature Granulocytes % (auto) 0.6 %; Lymphocytes # (auto) 1.23 K/uL (1.2-3.4); Lymphocytes % (auto) 15.4 %; Mean Corpuscular Hemoglobin 27.1 pg (25-34); Mean Corpuscular Hgb Conc 29.7 g/dL (32-36); Mean Corpuscular Volume 91.2 fL (80-100); Mean Platelet Volume 11.1 fL (7.4-10.4); Monocytes # (auto) 1.01 K/uL (0.11-0.59); Monocytes % (auto) 12.6 %; Neutrophils # (auto) 5.29 K/uL (1.4-6.5); Neutrophils % (auto) 66.2 %; Nucleated RBC # (auto) 0.02 K/uL (0-0); Nucleated RBC % (auto) 0.3 %; Platelet Count 201 K/uL (130-400); RDW Coefficient of Variation 17.3 % (11.5-14.5); RDW Standard Deviation 55.2 fL (36.4-46.3); Red Blood Count 3.29 M/uL (4.2-5.4); White Blood Count 7.99 K/uL (4.8-10.8)
[2021-01-19 07:56] LABS: BUN Creatinine Ratio 7.6 (10-20); Calcium 8.7 mg/dl (8.5-10.1); Creatinine Clr Calc Pharmacy 22.4 ml/min; Est GFR (Non-African American) 14.7 ml/min; Potassium 4.9 mmol/L (3.5-5.1)
[2021-01-19] MEDS: CINACALCET HCL 30 MG TAB PO SCH (08:19)
[2021-01-19] MEDS: carvediloL 25 MG TAB PO SCH ×2 (08:19→21:12)
[2021-01-19] MEDS: SUCRALFATE 1 GM/10 ML UDC PO SCH ×4 (08:19→21:13)
[2021-01-19] MEDS: PANTOprazole 40 MG TAB PO SCH ×2 (08:19→21:12)
[2021-01-19] MEDS: CLOPIDOGREL BISULFATE 75 MG TAB PO SCH (08:20)
[2021-01-19] MEDS: traMADol HCL 50 MG TABLET PO SCH ×2 (08:20→21:12)
[2021-01-19] MEDS: SENNA 8.6 MG TAB PO SCH (08:20)
[2021-01-19] MEDS: BUMETANIDE 1 MG TAB PO SCH (08:20)
[2021-01-19] MEDS: INSULIN GLARGINE SOLOSTAR 100 UNITS/ML 3 ML PEN SC SCH ×2 (08:23→21:15)
[2021-01-19] MEDS: hydrALAZINE TAB 50 MG TAB PO SCH ×3 (08:23→21:12)
[2021-01-19] MEDS: INSULIN ASPART 100 UNITS/ML 3 ML PEN SC SCH ×4 (08:25→21:14)
[2021-01-19] MEDS: amLODIPine BESYLATE 5 MG TAB PO SCH (10:31)
[2021-01-19] MEDS: ONDANSETRON INJ 2 MG/ML 2 ML VIAL IV PRN (11:06)
--- NOTE | 2021-01-19 11:56 | Nephrology Progress Note ---
Date of Service January 19, 2021 Assessment & Plan (1) ESRD (end stage renal disease): Plan: New start on hemodialysis after admitted to the hospital with volume overload, elevated blood pressure in worsening renal function with oliguria. Had tunneled dialysis catheter on 01/16/2021. Had 1st dialysis on 01/17/2021. had 2nd dialysis yesterday, tolerated well. Blood pressure has been running high. Has been having pain in right great toe, uric acid earlier during hospitalization was elevated at 7.8. -- start on amlodipine 10 mg p.o. daily -- Tylenol as needed for pain, repeat uric acid, if pain does not improve and uric acid remained elevated, recommend a short course of prednisone. -- plan for next dialysis on Wednesday -- left arm nephrology precaution for future AV fistula, dose medications for GFR less than 10. -- discontinue oral potassium supplement, dialysis with 3K bath -- received IV Venofer 1 g, Epogen 68035 units with dialysis today. Will follow (2) Hypertension: (3) Anemia: Admission and Anticipated Discharge Date Admission Date: January 08, 2021 Giovanni Mathis was seen in her room this morning. She denies any shortness of breath or chest pain, pain at the tunneled dialysis catheter site improved however she is complaining of pain in her right great toe since yesterday. had dialysis yesterday. Blood pressure has been running high. Review of Systems Review of Systems: Detailed review of system was otherwise unremarkable. Physical Exam Constitutional: well developed and well nourished; no acute distress Respiratory: normal respiratory effort, lungs clear to auscultation Cardiovascular: RRR, no murmur, no edema Musculoskeletal: erythema and tenderness in right great toe. Neurologic: moves all extremities and awake; not confused Psychiatric: A+Ox3, euthymic affect Results & Data ([facility]) Vital Signs (Past 12 Hours) Vital Signs Temp Pulse Pulse Pulse Resp BP Pulse Ox 01/19/21 11:28 36.7 C 68 18 184/72 H 95 01/19/21 08:00 69 01/19/21 07:29 36.6 C 70 18 172/76 H 92 01/19/21 00:05 36.4 C L 71 20 180/78 H 93 PG Care Time/CCT Total # of Minutes Spent Total Time Spent with Patient: Total time spent is greater than 50% in coordination of care (as documented) at patient's floor/unit and/or counseling patient: Coding Level of Care Code 85399 Subseq Hosp Care Lvl 3 Diagnoses ESRD (end stage renal disease) N18.6 Hypertension I10 Hypertension type: essential hypertension Anemia D64.9 Anemia type: unspecified type (1) Hypertension Hypertension type: essential hypertension Qualified Code(s): I10 - Essential (primary) hypertension (2) Anemia Anemia type: unspecified type Qualified Code(s): D64.9 - Anemia, unspecified
[2021-01-19] MEDS ORDERED: METOCLOPRAMIDE HCL INJ 5 MG/ML 2 ML VIAL IV STA (12:25)
--- NOTE | 2021-01-19 19:14 | Billing Data ---
Date of Service January 19, 2021 Coding Level of Care Code 60670 Subseq Hosp Care Lvl 2
[2021-01-19] MEDS: DICLOFENAC SOD 1% GEL 100 GM TUBE EXT SCH (21:13)
[2021-01-20] MEDS: HEPARIN SOD 5,000 UNIT/0.5 ML VIAL SQ SCH ×3 (06:05→20:55)
[2021-01-20] MEDS: ACETAMINOPHEN 325 MG TAB PO SCH ×3 (06:05→20:52)
--- NOTE | 2021-01-20 06:42 | Hospitalist Progress Note ---
Date of Service January 20, 2021 Assessment & Plan (1) Acute kidney injury superimposed on CKD: Plan: 65-year-old female past medical history significant for DM II, CKD, hypertension, hyperlipidemia, nonobstructive CAD, diastolic CHF, anemia, admitted for TANYA and short of breath suspected to be secondary to fluid overload. TANYA on CKD - Now ESRD Cardiorenal due to fluid overload vs 2/2 diuretics. progressed to ESRD. - Creatinine 4.69, with baseline ~2.5 - Renal US unremarkable - Nephrology consulted - Vascular consulted - perm. cath placed 01/16, received dialysis first session 01/17, second session earlier yesterday 01/18. Dialysis session earlier today 01/20. - Plan to discharge tomorrow with outpatient dialysis and follow up with nephrology and her PCP. Complicated UTI, treated: -Urine cultures grew gram negative bacilli, pt has symptoms of urinary frequency and elevated blood sugar -completed - Omnicef 300mg PO qd x7days Hyperparathyroidism: -Corrected calcium elevated -Vitamin D low & PTH high -Sensipar 30 mg daily started 01/10/21 -Vitamin D level 20 - replace vitamin D - 5000units daily. HFpEF: -History of diastolic CHF, with exacerbation this admission. Prior echo from 2019 showed 55-60% EF -BNP elevated to > 35,000, with mild interstitial pulmonary edema on chest x- ray. -Echo repeated: left ventricular systolic function is low normal, aortic valve sclerosis mild, moderate mitral annular calcification, EF 50-55% slight reduced from 2019) -Initially on Lasix 40mg IV BID transitioned to Bumex BID and then decreased dosing to Bumex QAM due to Cr rise. -Hold metolazone at this time. Low-sodium diet. Nonobstructive CAD -Continue Plavix. Left foot pain: -Presents with several days of intermittent stabbing left foot pain. -DVT studies negative in bilateral lower extremities. -Several possible etiologies, including diabetic neuropathy, gout, bony infection. -Uric acid levels elevated (7.8), Possible gout, but also could be elevated secondary to CKD -X-ray left foot: no fx or signs of osteomyelitis -Diclofenac cream TID prn -Consider gabapentin if no improvement. Right Ankle/Foot Pain: -c/o of right ankle pain, now has right foot pain worse with pressure on foot or dorsiflexion/wriggling toes up. -ZENON evans for swelling -Less likely bone fracture or abnormality since patient has had no trauma to the area. More likely pain secondary to swelling. -Ordered Voltaren topical tid for patient. Diabetic Foot Ulcer: -suspicious ulcer on right base of big toe -wound care consulted, wound wrapped DM2: -Patient is on sliding scale insulin in the outpatient setting. -A1c in 10/2019 of 8.2%. A1C now 10.2%, due to noncompliance. Anemia: -History of, with baseline hemoglobin of ~10. Has required Epogen in the past for decreased hemoglobin in the setting of TANYA on CKD. -Hemoglobin on admission of 8.8, currently stable -continue 5 days of Venofer 200 mg IV -FOBT neg Hypertension: -Continue home carvedilol, hydralazine. -Per nephro: hydralazine increased to 100mg PO BID, amlodipine can be considered if HTN persists --> further increased Hydralazine to 100mg PO TID, BP better GERD: -Continue home PPI. Anxiety: -added small dose of PRN Lorazepam for anxiety associated with potential for needing to initiate dialysis (reviewed side effects and possible complications of the medication) Elevated TSH -TSH elevated, normal T4 -likely due to stress of being in hospital -should monitor in outpatient setting to exclude hypothyroidism Constipation, improved - PRN Miralax - added Senna CODE STATUS: Full code FEN: Heart healthy, low-sodium, DM2 diet DVT prophylaxis: Heparin 3 times daily subq Dispo: Med/Surg with Telemetry Admission and Anticipated Discharge Date Admission Date: January 08, 2021 Supervising Physician Co-Signing Physician Notes Resident Physician Supervision Note: I independently interviewed and examined the patient and verified the 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 Goel findings and care plan. Subjective Saw patient at the bedside this morning. Patient stated that the Voltaren gel helped her with the foot pain. She said she tried to urinate last night as she had the urge but nothing came out. She will be getting dialysis later today. Denies fevers, chills, chest pain, shortness of breath. Physical Exam Constitutional: WD/WN, vitals as above Eyes: PERRL, conjunctivae normal, anicteric sclerae Respiratory: normal respiratory effort, lungs clear to auscultation Cardiovascular: RRR, no murmur, no edema Gastrointestinal (Abdomen): normal bowel sounds, soft, nontender, no hepatosplenomegaly Results & Data Results & Data ([facility]) Vital Signs (Past 12 Hours) Vital Signs Temp Pulse Pulse Pulse Resp BP BP 01/20/21 03:36 36.5 C 65 18 152/69 H 01/19/21 23:00 36.8 C 65 18 139/75 01/19/21 22:20 84 01/19/21 19:29 36.6 C 66 16 138/74 Pulse Ox 01/20/21 03:36 94 01/19/21 23:00 91 01/19/21 22:20 01/19/21 19:29 91 Resident Activity Tracking Resident Involvement: Resident Care Provided Care Provided: Adult Hospital Medicine
[2021-01-20 07:45] LABS: Hematocrit (blood only) 29.5 % (37-47); Hemoglobin 8.8 g/dL (12.0-16.0); Mean Corpuscular Hgb Conc 29.8 g/dL (32-36); Mean Corpuscular Volume 90.5 fL (80-100); Mean Platelet Volume 10.5 fL (7.4-10.4); Platelet Count 182 K/uL (130-400); RDW Coefficient of Variation 17.4 % (11.5-14.5); RDW Standard Deviation 55.4 fL (36.4-46.3); Red Blood Count 3.26 M/uL (4.2-5.4); White Blood Count 5.63 K/uL (4.8-10.8)
[2021-01-20] MEDS: DICLOFENAC SOD 1% GEL 100 GM TUBE EXT SCH ×3 (08:02→20:57)
[2021-01-20] MEDS: CINACALCET HCL 30 MG TAB PO SCH (08:03)
[2021-01-20] MEDS: CLOPIDOGREL BISULFATE 75 MG TAB PO SCH (08:04)
[2021-01-20] MEDS: PANTOprazole 40 MG TAB PO SCH ×2 (08:04→20:54)
[2021-01-20] MEDS: SUCRALFATE 1 GM/10 ML UDC PO SCH ×4 (08:05→20:54)
[2021-01-20] MEDS: INSULIN GLARGINE SOLOSTAR 100 UNITS/ML 3 ML PEN SC SCH ×2 (08:05→20:57)
[2021-01-20] MEDS: INSULIN ASPART 100 UNITS/ML 3 ML PEN SC SCH ×4 (08:07→20:30)
[2021-01-20 08:18] LABS: Albumin Level 2.1 gm/dl (3.4-5.0); BUN Creatinine Ratio 7.9 (10-20); Calcium 8.5 mg/dl (8.5-10.1); Creatinine Clr Calc Pharmacy 18.9 ml/min; Est GFR (African American) 14.1 ml/min; Est GFR (Non-African American) 12.2 ml/min; Potassium 4.3 mmol/L (3.5-5.1)
[2021-01-20 08:19] LABS: Phosphorus 3.9 mg/dl (2.5-4.9)
[2021-01-20] MEDS: amLODIPine BESYLATE 5 MG TAB PO SCH (08:33)
[2021-01-20] MEDS: carvediloL 25 MG TAB PO SCH ×2 (08:33→20:54)
[2021-01-20] MEDS: BUMETANIDE 1 MG TAB PO SCH (08:33)
[2021-01-20] MEDS: hydrALAZINE TAB 50 MG TAB PO SCH ×3 (08:34→20:54)
[2021-01-20] MEDS: SENNA 8.6 MG TAB PO SCH ×2 (08:34→09:00)
[2021-01-20] MEDS: traMADol HCL 50 MG TABLET PO SCH ×2 (08:40→20:53)
--- NOTE | 2021-01-20 10:29 | Nephrology Progress Note ---
Date of Service January 20, 2021 Assessment & Plan (1) ESRD (end stage renal disease): Plan: New start on hemodialysis after admitted to the hospital with volume overload, elevated blood pressure in worsening renal function with oliguria. Had tunneled dialysis catheter on 01/16/2021 and 1st dialysis on 01/17/2021. -- 4 hours dialysis today, aim for UF as tolerated -- continue on amlodipine 10 mg p.o. daily -- left arm nephrology precaution for future AV fistula, dose medications for GFR less than 10. -- received IV Venofer 1 g, Epogen 97764 units with dialysis. -- okay to be discharged when outpatient dialysis is scheduled Will follow (2) Hypertension: (3) Anemia: Admission and Anticipated Discharge Date Admission Date: January 08, 2021 Giovanni Mathis was seen in her room this morning. She denies any shortness of breath or chest pain, pain at the tunneled dialysis catheter site improved, pain at rt great toe improved as well. last dialysis was Wednesday, electrolyte acceptable, blood pressure continues to be elevated. Review of Systems Review of Systems: Detailed review of system was otherwise unremarkable. Physical Exam Constitutional: well developed and well nourished; no acute distress Respiratory: normal respiratory effort, lungs clear to auscultation Cardiovascular: RRR, no murmur, no edema Neurologic: moves all extremities and awake; not confused Psychiatric: A+Ox3, euthymic affect Results & Data ([facility]) Vital Signs (Past 12 Hours) Vital Signs Temp Pulse Pulse Pulse Resp BP BP 01/20/21 07:36 36.6 C 62 18 173/76 H 01/20/21 07:00 66 01/20/21 03:36 36.5 C 65 18 152/69 H 01/19/21 23:00 36.8 C 65 18 139/75 Pulse Ox 01/20/21 07:36 91 01/20/21 07:00 01/20/21 03:36 94 01/19/21 23:00 91 PG Care Time/CCT Total # of Minutes Spent Total Time Spent with Patient: Total time spent is greater than 50% in coordination of care (as documented) at patient's floor/unit and/or counseling patient: Coding Level of Care Code 66344 Subseq Hosp Care Lvl 2 Diagnoses ESRD (end stage renal disease) N18.6 Hypertension I10 Hypertension type: essential hypertension Anemia D64.9 Anemia type: unspecified type (1) Hypertension Hypertension type: essential hypertension Qualified Code(s): I10 - Essential (primary) hypertension (2) Anemia Anemia type: unspecified type Qualified Code(s): D64.9 - Anemia, unspecified
[2021-01-21] MEDS: ACETAMINOPHEN 325 MG TAB PO SCH (06:15)
[2021-01-21] MEDS: HEPARIN SOD 5,000 UNIT/0.5 ML VIAL SQ SCH ×2 (06:15→13:39)
[2021-01-21] MEDS ORDERED: CHOLECALCIFEROL 1,000 UNITS 25 MCG TAB PO SCH (09:00)
[2021-01-21] MEDS: BUMETANIDE 1 MG TAB PO SCH (09:48)
[2021-01-21] MEDS: CINACALCET HCL 30 MG TAB PO SCH (09:48)
[2021-01-21] MEDS: carvediloL 25 MG TAB PO SCH (09:51)
[2021-01-21] MEDS: SENNA 8.6 MG TAB PO SCH (09:51)
[2021-01-21] MEDS: amLODIPine BESYLATE 5 MG TAB PO SCH (09:52)
[2021-01-21] MEDS: hydrALAZINE TAB 50 MG TAB PO SCH ×2 (09:53→13:40)
[2021-01-21] MEDS: PANTOprazole 40 MG TAB PO SCH (09:53)
[2021-01-21] MEDS: CLOPIDOGREL BISULFATE 75 MG TAB PO SCH (09:54)
[2021-01-21] MEDS: SUCRALFATE 1 GM/10 ML UDC PO SCH ×2 (09:57→13:35)
[2021-01-21] MEDS: DICLOFENAC SOD 1% GEL 100 GM TUBE EXT SCH ×2 (10:01→13:37)
[2021-01-21] MEDS: traMADol HCL 50 MG TABLET PO SCH (10:14)
[2021-01-21] MEDS: INSULIN ASPART 100 UNITS/ML 3 ML PEN SC SCH ×2 (10:21→12:50)
--- NOTE | 2021-01-21 10:22 | Nephrology Progress Note ---
Date of Service January 21, 2021 Assessment & Plan (1) ESRD (end stage renal disease): Plan: ESRD, new start on hemodialysis after admitted to the hospital with volume overload, elevated blood pressure in worsening renal function with oliguria. Had tunneled dialysis catheter on 01/16/2021 and 1st dialysis on 01/17/2021. BP, volume status, electrolyte acceptable. Tunneled dialysis catheter functioning well. -- continue on amlodipine 10 mg p.o. daily -- left arm nephrology precaution for future AV fistula, dose medications for GFR less than 10. -- received IV Venofer 1 g, Epogen 55351 units with dialysis. -- continue on intermittent hemodialysis Wednesday, Wednesday, Wednesday, she has chair time for 5:45 a.m. tomorrow at [facility] in [place]. -- foot pain sounds like neuropathic pain, no significant edema or erythema, may benefit from gabapentin, maximum dose 300 mg per day Will follow (2) Hypertension: (3) Anemia: Admission and Anticipated Discharge Date Admission Date: January 08, 2021 Subjective Delfina overall feels well except pain in her bilateral foot. Had dialysis yesterday, electrolyte and volume status acceptable. Blood pressure better controlled. Review of Systems Review of Systems: Detailed review of system was otherwise unremarkable. Physical Exam Constitutional: well developed and well nourished; no acute distress Respiratory: normal respiratory effort, lungs clear to auscultation Cardiovascular: RRR, no murmur, no edema Neurologic: moves all extremities and awake; not confused Psychiatric: A+Ox3, euthymic affect Results & Data ([facility]) Vital Signs (Past 12 Hours) Vital Signs Temp Pulse Resp BP Pulse Ox 01/21/21 07:36 36.7 C 67 18 135/59 L 91 01/21/21 02:42 36.8 C 73 18 156/82 H 92 01/20/21 23:12 36.8 C 71 18 148/75 H 91 PG Care Time/CCT Total # of Minutes Spent Total Time Spent with Patient: Total time spent is greater than 50% in coordination of care (as documented) at patient's floor/unit and/or counseling patient: Coding Level of Care Code 52051 Subseq Hosp Care Lvl 3 Diagnoses ESRD (end stage renal disease) N18.6 Hypertension I10 Hypertension type: essential hypertension Anemia D64.9 Anemia type: unspecified type (1) Hypertension Hypertension type: essential hypertension Qualified Code(s): I10 - Essential (primary) hypertension (2) Anemia Anemia type: unspecified type Qualified Code(s): D64.9 - Anemia, unspecified
[2021-01-21] MEDS: INSULIN GLARGINE SOLOSTAR 100 UNITS/ML 3 ML PEN SC SCH (10:26)
--- NOTE | 2021-01-21 11:27 | Discharge Summary ---
Date of Service January 21, 2021 Admission HPI Per Admitting Provider 65-year-old female past medical history significant for DM2, CKD stage IIIb/IV, hypertension, hyperlipidemia, nonobstructive CAD, diastolic CHF, anemia of chronic disease presents for about 1 week of worsening bilateral L > R lower extremity swelling with intermittent pain on the bottom of the patient's left foot with stepdown. Today she called her PCP when she started to feel short of breath with any exertion and with lying flat, and was advised to come in to the ER. She does not admit to a worsening in dietary indiscretion, and reports she tries to stay away from salt. No URI symptoms, no chest pain, no nausea or vomiting, no urinary symptoms. She admits that over the last week she has had a lot of difficulty with ambulating and getting around the house due to the stabbing pain in her foot as well as due to the swelling. In the ER, patient was noted to have a creatinine of 3.78 (baseline 2.5), and a proBNP of > 35,000. Chest x-ray showed cardiomegaly with interstitial pulmonary edema. Bilateral DVT studies negative. Patient received Lasix 40 mg IV x1. Principal Diagnosis End Stage Renal Disease Discharge Exam Constitutional WD/WN, vitals as above Eyes PERRL, conjunctivae normal, anicteric sclerae Respiratory normal respiratory effort, lungs clear to auscultation Cardiovascular RRR, no murmur, no edema Gastrointestinal (Abdomen) normal bowel sounds, soft, nontender, no hepatosplenomegaly Skin Dialysis port in place right upper chest. Psychiatric A+Ox3, euthymic affect Discharge Data Allergies Allergy/AdvReac Type Severity Reaction Status Date / Time dulaglutide [From Trulicity] Allergy Intermediate Hives Verified 01/08/21 19:17 atorvastatin AdvReac Intermediate Joint Pain Verified 01/08/21 19:17 erythromycin base AdvReac Intermediate Vomiting Verified 01/08/21 19:17 insulin lispro AdvReac Intermediate Visual Verified 01/08/21 19:17 [From Humalog U-100 Insulin] Disturbance Consultations 01/08/21 19:37 ED Decision to Admit Stat 01/08/21 20:49 Consult Nephrology Routine 01/15/21 08:55 Consult Vascular Surgery Routine Procedures Performed Operation Date: 01/16/21 13:00 Actual Procedures p Insertion of Perm catheter, Right internal Jugular approach, ultrasound of Right Internal Jugular Vein, Fluoroscopy of positioning, moderate sedation [id number] 1335(Right) - Guanakito Luke MD Ordered Studies 01/08/21 16:56 US venous doppler LE BI Urgent IMPRESSION: No DVT within the right or left lower extremity. 01/09/21 10:00 US renal/blad retro comp Routine IMPRESSION: Unremarkable renal ultrasound. 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 TANYA on CKD - Now ESRD Cardiorenal due to fluid overload vs 2/2 diuretics. progressed to ESRD. - Creatinine 4.69, with baseline ~2.5 - Renal US unremarkable - Nephrology consulted - perm. cath placed 01/16, received inpatient dialysis. - Patient discharged with plans for continuing dialysis MWF, next dialysis at [facility] in [place] at 05:30 Wednesday01/22/2021. - Left arm precautions for future AV fistula - Dose medications for GFR <10 HFpEF: -History of diastolic CHF, with exacerbation this admission. Prior echo from 2019 showed 55-60% EF -BNP elevated to > 35,000, with mild interstitial pulmonary edema on chest x- ray. -Echo repeated: left ventricular systolic function is low normal, aortic valve sclerosis mild, moderate mitral annular calcification, EF 50-55% slight reduced from 2019) -Initially on Lasix 40mg IV BID transitioned to Bumex BID and then decreased dosing to Bumex QAM due to Cr rise. -Low-sodium diet. - Discontinued patient's hydralazine, Lasix, metolazone, continued Amlodipine 10mg daily, Bumex 1mg every morning. Nonobstructive CAD -Continue Plavix. Foot pain: -Presents with several days of intermittent stabbing left, and later in course, right foot pain. -DVT studies negative in bilateral lower extremities. -Several possible etiologies, including diabetic neuropathy, gout, or MSK. -Uric acid levels elevated (7.8), Possible gout, but also could be elevated secondary to CKD -X-ray left foot: no fx or signs of osteomyelitis. -Voltaren gel TID prescribed for outpatient use. Complicated UTI, resolved -Urine cultures grew gram negative bacilli, pt has symptoms of urinary frequency and elevated blood sugar -completed - Omnicef 300mg PO qd x7days Diabetic Foot Ulcer: -suspicious ulcer on right base of big toe -wound care consulted, wound wrapped DM2: -A1c in 10/2019 of 8.2%. A1C now 10.2%, due to noncompliance. -Resume home insulin regimen. Normocytic Anemia: -History of, with baseline hemoglobin of ~10. Has required Epogen in the past for decreased hemoglobin in the setting of TANYA on CKD. -Hemoglobin on admission of 8.8, MCV ~83. Iron 32, TIBC 185, Transferrin 154. -Anemia possibly from chronic disease vs iron deficiency. -received 5 days venofer 200mg IV. -FOBT neg Hypertension: -Continue home carvedilol. Discontinued hydralazine. -Per nephro: continue amlodipine 10mg PO daily for home use. Elevated TSH -TSH elevated, normal T4 -likely due to stress of being in hospital -should monitor in outpatient setting to exclude hypothyroidism Total Time Total Time Spent Total Time Spent (In Minutes): Please see attending attestation. Discharge Plan Discharge Items Patient Disposition: Home - Self-Care Reason For Visit: TANYA ON CKD, CHF EXACERBATION Discharge Diagnosis: End Stage Renal Disease Activity: Per Instructions section Non-emergency contact: Primary Care Provider and Cnc Set Up Operator Call non-emergency contact if: your symptoms worsen Follow-up/Referrals: Peyton An MD [Primary Care Provider] - 01/31/21 2:00 pm Diet: Low Sodium (2gm) Addtl Attending Provider Instructions: Kidney disease: You were found to have worsening of your kidney disease, this may have been due, in part, to back up from your heart to your kidneys. We will need to continue to monitor your kidney function and you will need to follow up with your aviation manager. You will be continuing your dialysis sessions outpatient. Dialysis is when your blood is filtered through a machine to act as your kidney. There are several ways to prepare for dialysis and different types of dialysis. If you develop shortness of breath or those around you are noticing that you are confus ed, this may be due to progression of your kidney disease and we would want you to be evaluated urgently because this may indicate that you need dialysis more emergently. Your first Dialysis session outpatient will be at [facility] at 5:30AM. [facility] Dialysis: [address] [address], [place] [address] Shortness of breath. You came in for shortness of breath that was thought to be in part due to heart failure. However this was due to worsening kidney function. If you are noticing that you are getting short of breath at home, or your weight is increasing you s hould call your primary care doctor as you may need to be seen or have another dialysis session. It is important that you seek to avoid salt in your diet as this can lead to an in water leading to worsening swelling and shortness of breath. If you are feeling short of breath or having trouble breathing, call or come in to be evaluated. Please stop taking your Lasix (furosemide), hydr alazine, and metolazone medications. Please continue taking Bumex and Amlodipine, a prescription has been sent to your pharmacy. Possible Gout: You have been taking nuerotin and voltaren gel for your foot pain. We will continue you on the voltaren gel to take three to four times a day for possible gout treatment. Voltaren is an anti-inflammatory medication and may help lower the pain by decreasing inflammation. Please follow up with the treatment with your primary care physician. Please follow up with your PCP and aviation manager. Follow up: PCP - 3-4 days Nephrology - 1-2 weeks Pending Studies at Discharge: No Stand-Alone Forms: [facility] CHF Dc Instructions, My [email or web address], Smoking Cessation Medications and DC Order Prescriptions: New amlodipine 10 mg tablet 10 mg PO DAILY Qty: 30 RF: 0 diclofenac sodium [Voltaren Arthritis Pain] 1 % gel 4 g topical QID Qty: 100 RF: 0 bumetanide 1 mg Tablet 1 mg PO QAM 30 Days Qty: 30 RF: 0 Continued (DME) pen needle, diabetic [BD Ultra-Fine Gwen Pen Needle] 32 gauge x 5/32" needle See Rx Instructions .ROUTE .MEDSUPPLY Qty: 500 RF: 3 (DME) FreeStyle [place] 14 Day [place] Misc See Rx Instructions .ROUTE .MEDSUPPLY Qty: 7 RF: 3 insulin aspart U-100 [Novolog Flexpen U-100 Insulin] 100 unit/mL (3 mL) insulin pen 1 - 15 unit SC TIDM PRN (Reason: SLIDING SCALE) Qty: 15 RF: 5 clopidogrel [Plavix] 75 mg tablet 75 mg PO QAM Qty: 90 RF: 3 carvedilol [Coreg] 25 mg tablet 50 mg PO BID Qty: 360 RF: 3 potassium chloride 10 mEq tablet extended release 20 meq PO QAM Qty: 200 RF: 3 pantoprazole 40 mg tablet,delayed release (DR/EC) 40 mg PO QAM Qty: 90 RF: 3 cholecalciferol (vitamin D3) 1,250 mcg (50,000 unit) capsule 50,000 units PO WK RF: 0 Discontinued furosemide [Lasix] 40 mg tablet 40 mg PO BID Qty: 180 RF: 3 metolazone 5 mg tablet 5 mg PO DAILY PRN (Reason: Fluid Retention) Qty: 20 RF: 1 hydralazine 50 mg tablet 50 mg PO BID Qty: 60 RF: 0 Discharge Orders: Discharge Order (Routine); Ordered 01/21/21 Ordered By: Speedy Goel Admission Data Admit Date/Time: 01/08/21 20:49 Attending Provider: Julianna Sotomayor Admit Provider: Travon Cagle Primary Care Provider: Peyton An Other Providers: Carmenza Rosario ; Yasmeen [place] ; Saad Garcia ; Guanakito Luke Other Interventions: Discharge Summary Assessment (RN) Last Done: 01/21/21 14:29 Supervising Physician Co-Signing Physician Notes Resident Physician Supervision Note: I independently interviewed and examined the patient and verified the 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 Goel findings and care plan. Resident Activity Tracking Resident Involvement: Resident Care Provided Care Provided: Adult Hospital Medicine
[2021-01-21 15:48] LABS: Kappa 222 mg/dL (176-443); Lambda 111 mg/dL (91-240)
[2021-01-22 10:45] LABS: Abnormal Protein Band 1 DNR mg/24 h (NONE DETECTED); Abnormal Protein Band 2 DNR mg/24 h (NONE DETECTED); Abnormal Protein Band 3 DNR mg/24 h (NONE DETECTED); Creatinine, 24 hr Urine 0.71 g/24 h (0.50-2.15); Protein, Urine 24 Hour 7552 mg/24 h (<150); Ur Protein/Creatinine Rat mg/g 10607 mg/g creat (< OR = 114); Urine Protein/Creatinine Ratio 10.607 (< OR = 0.114)
== END 2021-01-21 15:42 | disposition home or self-care (01) | DRG 291 ==
LOC: ED 15:09 → 2W 20:49 → SUATTDRO 20:49 → 2W 21:47 → 2N 01-18 21:43

== ENCOUNTER 2022-09-16 14:41 | Inpatient (IN) ==
[2022-09-16 16:43] LABS: Basophils # (auto) 0.07 K/uL (0-0.2); Basophils % (auto) 1.2 %; Eosinophils # (auto) 0.21 K/uL (0-0.50); Eosinophils % (auto) 3.6 %; Hematocrit (blood only) 39.8 % (37.0-47.0); Hemoglobin 12.6 g/dl (12.0-16.0); Immature Granulocytes # (auto) 0.02 K/uL (0.01-0.20); Immature Granulocytes % (auto) 0.3 %; Lymphocytes # (auto) 0.77 K/uL (1.2-3.4); Lymphocytes % (auto) 13.2 %; Mean Corpuscular Hemoglobin 27.5 pg (25.0-34.0); Mean Corpuscular Hgb Conc 31.7 g/dL (32.0-36.0); Mean Corpuscular Volume 86.9 fL (80.0-100.0); Mean Platelet Volume 10.8 fL (9.4-12.4); Monocytes # (auto) 0.63 K/uL (0.11-0.59); Monocytes % (auto) 10.8 %; Neutrophils # (auto) 4.12 K/uL (1.40-6.50); Neutrophils % (auto) 70.9 %; Platelet Count 200 K/uL (130-400); RDW Coefficient of Variation 17.4 % (11.5-14.5); RDW Standard Deviation 54.5 fL (36.4-46.3); Red Blood Count 4.58 M/uL (4.20-5.40); White Blood Count 5.82 K/ul (4.8-10.8)
[2022-09-16 16:46] LABS: Albumin Globulin Ratio 1.1 (0.9-2); Albumin Level 3.7 gm/dl (3.4-5.0); BUN Creatinine Ratio 12.7 (10-20); Bilirubin,Total 0.8 mg/dl (0.2-1.0); Calcium 9.8 mg/dl (8.6-10.3); Creatinine Clr Calc Pharmacy 17.1 ml/min; Est GFR (African American) 12.8 ml/min; Est GFR (Non-African American) 11.1 ml/min; Globulin 3.3 gm/dl (2.5-4.0); Potassium 4.5 mmol/L (3.5-5.1)
--- NOTE | 2022-09-16 16:53 | Emergency Department Note ---
Impression & Plan Volume overload, ESRD (end stage renal disease), Unable to ambulate ED Provider Note NAME: SHALOM KRAMER AGE: 67 SEX: F : 1955 ARRIVES VIA: Walk-In INFORMANT: Patient ED PROVIDER(S): Rustam Astudillo DO CHIEF COMPLAINT: volume overload HPI: Patient is a 67-year-old female with end-stage renal disease Wednesday, Wednesday, Wednesday receiving dialysis from Dr. Goel at [facility] who presents to the ER for increased weakness and volume overload following a full course of tom lysis. She has missed a total of about a week worth of dialysis secondary to nausea and vomiting over this past Wednesday through Wednesday. She is now tolerating oral liquids. She has been refusing some treatments. feels as though she needs placement as she has not been walking for the past 2 weeks after hurting her left leg. She denies any headache or chest pain. No shortness of breath. Admits to increased swelling in the lower legs. PAST MEDICAL HISTORY:See Below PAST SURGICAL HISTORY:See Below FAMILY HISTORY:See Below SOCIAL HISTORY:See Below HOME MEDICATIONS:See Below ALLERGIES:See Below VITALS:See Below PHYSICAL EXAMINATION: GENERAL: Sitting up in bed, alert, well appearing, well nourished, no distress, non-toxic EYE EXAM: normal conjunctiva. PERRL and EOM's grossly intact. OROPHARYNX: mucous membranes are moist LUNGS: Clear to auscultation. Normal chest wall mechanics HEART: no murmurs, S1 normal and S2 normal ABDOMEN: abdomen soft, non-tender, normo-active bowel sounds, no masses, no rebound or guarding. BACK: Back is symmetrical on inspection and there is no deformity, no midline tenderness, no CVA tenderness. UPPER EXTREMITIES: upper extremities are grossly normal. LOWER EXTREMITIES: Pitting edema in the bilateral lower extremities NEURO EXAM: Normal sensorium, cranial nerves II-XII grossly intact, normal speech, no gross weakness of arms, no gross weakness of legs. MEDICAL DECISION MAKING: Patient is a 67-year-old female who presents ER for the below stated complaint. She was referred in by dialysis by Dr. Garcia for admission for volume overload as she has missed dialysis several times in combination with ambulatory dysfunction as the can longer take care of her. IV was established blood work was obtained. Labs show no significant leukocytosis or anemia. INR unremarkable. BMP with creatinine of 3.9 and normal potassium as she just received dialysis. Glucose slightly up at 190. BNP greater than 4000. COVID was negative. Chest x-ray without any focal infiltrate. Patient was updated bedside discussed with Dr. Teran for further evaluation management treatment. Triage Nursing notes reviewed. Limited review of prior medical records performed Vital Signs: reviewed and remarkable for no significant abnormalities Differential diagnosis: Infection, dehydration, metabolic abnormality, hypo/hyperglycemia, electrolyte disturbance, anemia, hypoxia, cardiac sources, intracerebral event, toxicologic, neurologic, as well as other pathologies. ER treatment provided: See below Diagnostics interpreted by me include EKG and cardiac monitoring as listed below: -Cardiac Monitoring: An order was placed for continuous cardiac monitoring. The monitor shows a rate of 80 with sinus rhythm. -ECG: none -Laboratory studies:Interpreted by me as stated above in MDM and shown below. Imaging studies: Xrays: As interpreted by me: Portable AP upright 1 view of the chest shows no pneumonia CTs show: none Consultation(s): As described in MDM Procedures:none Critical Care: None Past Med/Surg History Medical History Anemia IRON INFUSIONS WEEKLY Background diabetic retinopathy associated with type 2 diabetes mellitus CAD (coronary artery disease) Non obstructive (August 2009) per cardio records CKD (chronic kidney disease), stage IV Hemodialysis MWF Diabetes type 2, uncontrolled Diabetic nephropathy associated with type 2 diabetes mellitus Dyslipidemia ESRD (end stage renal disease) GERD (gastroesophageal reflux disease) History of CVA (cerebrovascular accident) Hx of Lyme disease Hypertension Mitral regurgitation Morbid obesity Nocturnal hypoxemia Nonischemic cardiomyopathy Osteopenia Primary hyperparathyroidism Subclinical hypothyroidism TSH 5.180 in 01/2021 Traumatic ulcer of left lower leg Vitamin D deficiency Vocal cord paralysis syndrome Surgical History Difficult airway for intubation PT STATES HAS HAD VOCAL CORD PARAYSIS IN PAST Fiberoptic intubation used with 10/2019 lap odalis History of cataract surgery RT/LEFT History of vascular access device 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 (USING FOR DIALYSIS) Hx of colonoscopy Hx of eye surgery EYE MUSCLE REPAIR Hx of tonsillectomy Hx of tubal ligation S/P cardiac catheterization OVER 10 YEARS AGO/NO STENTS Status post laparoscopic cholecystectomy (10/07/19) [place] teeth removed Family History Father Family history of diabetes mellitus Aunt Family history of diabetes mellitus Uncle Family history of diabetes mellitus Brother Family history of diabetes mellitus Brother Family history of diabetes mellitus Grandmother (Maternal) Family hx of colon cancer Other Alzheimer disease Coronary heart disease No family history of adverse response to anesthesia Social History Smoking Status: Never smoker Tobacco Type: Cigarettes Second Hand Exposure: No; Do You Dip or Chew Tobacco: No; Hx Alcohol Use: Yes Alcohol type: wine Alcohol Intake Frequency: Monthly or Less Preferred Language: Telugu Communication Ability: Effective Visual Impairment: No Limitations Hearing Ability: Normal [employer] Required: No Beliefs That Will Affect Care: None marital status: Current Living Situation: Spouse Feels Safe at Home: Yes Diet: low salt and vegetarian caffeine: Yes Seatbelt Use: always Assistive Devices: Glasses and Walker Allergies Allergies Allergy/AdvReac Type Severity Reaction Status Date / Time dulaglutide [[facility]] Allergy Intermediate Hives Verified 09/10/22 10:12 atorvastatin AdvReac Intermediate Joint Pain Verified 09/10/22 10:12 erythromycin base AdvReac Intermediate Vomiting Verified 09/10/22 10:12 Home Meds Home Medications Medication Instructions Recorded Confirmed cinacalcet 30 mg tablet 30 mg PO 3XWK 02/11/22 09/16/22 diclofenac sodium 1 % topical gel 4 g topical QID PRN Pain 09/16/22 09/16/22 (Voltaren Arthritis Pain) pantoprazole 40 mg tablet,delayed 40 mg PO QAM 09/16/22 09/16/22 release Previous Rx's Medication Instructions Recorded blood-glucose sensor (Dexcom G6 #3 ea 06/24/21 Sensor device) blood-glucose transmitter (Dexcom #1 ea 06/24/21 G6 Transmitter device) carvedilol 25 mg tablet (Coreg) 50 mg PO BID #360 tabs 11/24/21 blood-glucose meter (OneTouch #1 ea 11/25/21 Ultra2 Meter kit) lancets (OneTouch UltraSoft #200 ea 11/25/21 Lancets) amlodipine 10 mg tablet 10 mg PO DAILY #90 tabs 03/09/22 insulin aspart U-100 100 unit/mL 1 - 15 unit (0.01 - 0.15 mL) SC 04/08/22 (3 mL) subcutaneous pen (Novolog TIDM PRN SLIDING SCALE #15 mL FlexPen U-100 Insulin aspart) clopidogrel 75 mg tablet (Plavix) 75 mg PO QAM #90 tabs 08/06/22 BD Ultra-Fine Gwen Pen Needle 32 #500 ea 08/10/22 gauge x 5/32" (pen needle, diabetic) blood sugar diagnostic (OneTouch #200 ea 08/10/22 Ultra Test strips) apixaban 2.5 mg tablet (Eliquis) 2.5 mg PO BID #60 tabs 08/28/22 cholecalciferol (vitamin D3) 125 125 mcg PO DAILY #45 caps 09/07/22 mcg (5,000 unit) capsule Results & Data (ED) Vital Signs Vital Signs - 24 hr 09/16/22 14:47 09/16/22 18:08 Temperature 36.5 C Temperature Source Temporal Artery Scan Pulse Rate 84 Pulse Rate [Finger] 82 Pulse Rhythm [Finger] Regular Pulse Strength [Finger] Normal Respiratory Rate 18 20 Respiratory Effort / Characteristics Non-Labored Spontaneous Non-Labored Spontaneous Respiratory Depth Normal Respiratory Pattern Regular Regular Blood Pressure 138/64 Blood Pressure [Left Arm] 121/69 Blood Pressure Mean 88 Blood Pressure Mean [Left Arm] 86 Blood Pressure Position [Left Arm] Semi-fowlers Pulse Oximetry 99 99 Oxygen Delivery Method Room Air Room Air Sepsis Recent Fever Within 48 Hours No Sepsis New/Unexplained Change in Mental Status No Sepsis Action Taken by Nursing No Action Required Laboratory Data 09/16/22 16:00 09/16/22 16:00 Lab Results 09/16/22 09/16/22 09/16/22 Range/Units 16:00 16:00 16:00 WBC 5.82 (4.8-10.8) K/ul RBC 4.58 (4.20-5.40) M/uL Hgb 12.6 (12.0-16.0) g/dl Hct 39.8 (37.0-47.0) % MCV 86.9 (80.0-100.0) fL MCH 27.5 (25.0-34.0) pg MCHC 31.7 L (32.0-36.0) g/dL RDW Std Deviation 54.5 H (36.4-46.3) fL RDW Coeff of Braeden 17.4 H (11.5-14.5) % Plt Count 200 (130-400) K/uL MPV 10.8 (9.4-12.4) fL Immature Gran % (Auto) 0.3 % Neut % (Auto) 70.9 % Lymph % (Auto) 13.2 % Walker % (Auto) 10.8 % Eos % (Auto) 3.6 % Baso % (Auto) 1.2 % Neut # (Auto) 4.12 (1.40-6.50) K/uL Lymph # (Auto) 0.77 L (1.2-3.4) K/uL Walker # (Auto) 0.63 H (0.11-0.59) K/uL Eos # (Auto) 0.21 (0-0.50) K/uL Baso # (Auto) 0.07 (0-0.2) K/uL Immature Gran # (Auto) 0.02 (0.01-0.20) K/uL PT 11.9 (9.0-12.0) Seconds INR 1.1 (0.9-1.1) APTT 23.4 (21.0-31.0) Seconds PTT Ratio 0.8 Sodium 137 (136-145) mmol/L Potassium 4.5 (3.5-5.1) mmol/L Chloride 99 (98-107) mmol/L Carbon Dioxide 21 (21-32) mmol/L Anion Gap 17 H (3-11) BUN 50 H (6-23) mg/dl Creatinine 3.95 H (0.6-1.2) mg/dl Est Cr Clr Drug Dosing 17.1 ml/min Est GFR ( Amer) 12.8 ml/min Est GFR (Non-Af Amer) 11.1 ml/min BUN/Creatinine Ratio 12.7 (10-20) Glucose 192 H (70-99(Fasting)) mg/dl POC Glucose (70-99) mg/dl Calcium 9.8 (8.6-10.3) mg/dl Total Bilirubin 0.8 (0.2-1.0) mg/dl AST 16 (13-39) U/L ALT 16 (7-52) U/L Alkaline Phosphatase 94 (34-104) U/L B-Natriuretic Peptide (0-100) pg/ml Total Protein 7.0 (6.0-8.3) gm/dl Albumin 3.7 (3.4-5.0) gm/dl Globulin 3.3 (2.5-4.0) gm/dl Albumin/Globulin Ratio 1.1 (0.9-2) SARS-CoV-2, RNA, NAAT (NEGATIVE) 09/16/22 09/16/22 09/16/22 Range/Units 16:00 16:43 16:59 WBC (4.8-10.8) K/ul RBC (4.20-5.40) M/uL Hgb (12.0-16.0) g/dl Hct (37.0-47.0) % MCV (80.0-100.0) fL MCH (25.0-34.0) pg MCHC (32.0-36.0) g/dL RDW Std Deviation (36.4-46.3) fL RDW Coeff of Braeden (11.5-14.5) % Plt Count (130-400) K/uL MPV (9.4-12.4) fL Immature Gran % (Auto) % Neut % (Auto) % Lymph % (Auto) % Walker % (Auto) % Eos % (Auto) % Baso % (Auto) % Neut # (Auto) (1.40-6.50) K/uL Lymph # (Auto) (1.2-3.4) K/uL Walker # (Auto) (0.11-0.59) K/uL Eos # (Auto) (0-0.50) K/uL Baso # (Auto) (0-0.2) K/uL Immature Gran # (Auto) (0.01-0.20) K/uL PT (9.0-12.0) Seconds INR (0.9-1.1) APTT (21.0-31.0) Seconds PTT Ratio Sodium (136-145) mmol/L Potassium (3.5-5.1) mmol/L Chloride (98-107) mmol/L Carbon Dioxide (21-32) mmol/L Anion Gap (3-11) BUN (6-23) mg/dl Creatinine (0.6-1.2) mg/dl Est Cr Clr Drug Dosing ml/min Est GFR ( Amer) ml/min Est GFR (Non-Af Amer) ml/min BUN/Creatinine Ratio (10-20) Glucose (70-99(Fasting)) mg/dl POC Glucose 166 H (70-99) mg/dl Calcium (8.6-10.3) mg/dl Total Bilirubin (0.2-1.0) mg/dl AST (13-39) U/L ALT (7-52) U/L Alkaline Phosphatase (34-104) U/L B-Natriuretic Peptide > 4700 H (0-100) pg/ml Total Protein (6.0-8.3) gm/dl Albumin (3.4-5.0) gm/dl Globulin (2.5-4.0) gm/dl Albumin/Globulin Ratio (0.9-2) SARS-CoV-2, RNA, NAAT NEGATIVE (NEGATIVE) 09/16/22 Range/Units 17:46 WBC (4.8-10.8) K/ul RBC (4.20-5.40) M/uL Hgb (12.0-16.0) g/dl Hct (37.0-47.0) % MCV (80.0-100.0) fL MCH (25.0-34.0) pg MCHC (32.0-36.0) g/dL RDW Std Deviation (36.4-46.3) fL RDW Coeff of Braeden (11.5-14.5) % Plt Count (130-400) K/uL MPV (9.4-12.4) fL Immature Gran % (Auto) % Neut % (Auto) % Lymph % (Auto) % Walker % (Auto) % Eos % (Auto) % Baso % (Auto) % Neut # (Auto) (1.40-6.50) K/uL Lymph # (Auto) (1.2-3.4) K/uL Walker # (Auto) (0.11-0.59) K/uL Eos # (Auto) (0-0.50) K/uL Baso # (Auto) (0-0.2) K/uL Immature Gran # (Auto) (0.01-0.20) K/uL PT (9.0-12.0) Seconds INR (0.9-1.1) APTT (21.0-31.0) Seconds PTT Ratio Sodium (136-145) mmol/L Potassium (3.5-5.1) mmol/L Chloride (98-107) mmol/L Carbon Dioxide (21-32) mmol/L Anion Gap (3-11) BUN (6-23) mg/dl Creatinine (0.6-1.2) mg/dl Est Cr Clr Drug Dosing ml/min Est GFR ( Amer) ml/min Est GFR (Non-Af Amer) ml/min BUN/Creatinine Ratio (10-20) Glucose (70-99(Fasting)) mg/dl POC Glucose 178 H (70-99) mg/dl Calcium (8.6-10.3) mg/dl Total Bilirubin (0.2-1.0) mg/dl AST (13-39) U/L ALT (7-52) U/L Alkaline Phosphatase (34-104) U/L B-Natriuretic Peptide (0-100) pg/ml Total Protein (6.0-8.3) gm/dl Albumin (3.4-5.0) gm/dl Globulin (2.5-4.0) gm/dl Albumin/Globulin Ratio (0.9-2) SARS-CoV-2, RNA, NAAT (NEGATIVE) Administered Medications Discontinued Medications Pantoprazole Sodium 40 mg/ (Syringe) 10 mls @ 5 mls/min IV NOW STA Stop: 09/16/22 17:39 Last Admin: 09/16/22 18:05 Dose: 5 mls/min Documented By: AB Imaging Data Radiologist's Impression: Chest X-Ray 09/16/22 16:53 XR chest 1V portable CLINICAL HISTORY: weak TECHNIQUE: Single frontal radiograph of the chest was obtained. Comparison: Comparison is made to chest radiograph 04/11/2021 FINDINGS: There is a dual-lumen right IJ catheter. Cardiomegaly is noted. The aortic arch is calcified. There is prominence and cephalization of the vasculature with Maryann B lines seen. No evidence of pleural effusion or pneumothorax. IMPRESSION: Cardiomegaly and moderate pulmonary edema. ACT 112: Negative or not required by law. Electronically signed by: Angel Thompson M.D. 09/16/2022 5:44 PM Discharge Plan Visit Data Chief Complaint: Illness Stated Complaint: RETAINING OF FLUID ED Provider: Rustam Astudillo Discharge Problem: Volume overload, ESRD (end stage renal disease), Unable to ambulate Patient Disposition: Admitted As Inpatient Discharge Instructions Interventions: ED Discharge Assessment Last Done: 09/16/22 20:24
[2022-09-16 17:21] LABS: INR 1.1 (0.9-1.1); Partial Thromboplastin Ratio 0.8; Partial Thromboplastin Time 23.4 Seconds (21.0-31.0); Prothrombin Time 11.9 Seconds (9.0-12.0)
[2022-09-16] MEDS ORDERED: PANTOprazole 40 MG in SYRINGE 0 ML IV STA (17:38)
--- NOTE | 2022-09-16 17:41 | History & Physical Report ---
Date of Service September 16, 2022 Assessment & Plan (1) Hypervolemia associated with renal insufficiency: Plan: ESRD on dialysis. Ongoing fluid management per nephrology with dialysis. Consult nephrology (2) Diabetes type 2, uncontrolled: Plan: Significant confusion regarding her diabetes regimen. On review of PCP notes she was previously on Lantus but using incorrectly as sliding scale. Then just using Novolog. unsure how much she should be getting. Reportedly patient confused thinking dialysis would be controlling her glucose levels on one PCP note. Given unclear insulin regimen need will use Lantus 0-10 units depending on glucose < or > 120 Novolog carb ratio and correction factor based off previous hospitalization: --Goal BSG Range: Low 110 mg/dL, High 140mg/dL --Correction Factor: 20 mg/dL/unit --Carbohydrate ratio = 7 g/unit --BSGs ACHS if eating, q6h if npo (3) Superficial thrombosis of left lower extremity: Plan: On apixaban for 1 month started August 28. To be re-evaluated by her scrum project manager at that time. (4) Nausea vomiting and diarrhea: Plan: Reason for missing 2 dialysis sessions. Appears resolved ?due to taking PPI regularly. Pantoprazole 40mg IV now then continue PO daily (5) Hypertension: Plan: Continue carvedilol (lowered hold parameters) and amlodipine (6) ESRD (end stage renal disease): (7) GERD (gastroesophageal reflux disease): Plan VTE Prophylaxis - Eliquis Diet - dialysis renal, T2DM Disposition - admit to med/tele Admission and Anticipated Discharge Date Admission Date: September 16, 2022 History of Present Illness Chief Complaint: Leg edema, ambulatory dysfunction Primary Care Provider: DO Gladys Navarromag Reyna is a 67 year old female who presents to the ER on advice of her chief engineer production with increased leg edema and ambulatory dysfunction. She recently missed two dialysis sessions last Wednesday and Wednesday due to nausea, vomiting and diarrhea illness which now appears resolved after restarting on her pantoprazole medication on Wednesday which she has not been taking regularly. She denies any current problem with this and no abdominal pain. With missing dialysis her leg edema has become worse and she has weeping wound on her legs. This has led to her decreased ambulation around the house and her is concerned it has got to a stage it is hard to help her now. Her notes blood glucose at home has also been running high but can fluctuate anywhere from 40s to 420 in the last month. Generally they run around 200s. Her is concerned he does not know how much insulin to give based on her glucose level. She denies taking any basal insulin but just takes a correction dose three times a day. She had been prescribed a dexacom but reports this just kept falling off so is no longer using it. Allergies Allergy/AdvReac Type Severity Reaction Status Date / Time dulaglutide [From [facility]] Allergy Intermediate Hives Verified 09/10/22 10:12 atorvastatin AdvReac Intermediate Joint Pain Verified 09/10/22 10:12 erythromycin base AdvReac Intermediate Vomiting Verified 09/10/22 10:12 Home Medications Medication Instructions Recorded Confirmed Type blood-glucose sensor (Dexcom G6 #3 ea 06/24/21 09/16/22 Rx Sensor device) blood-glucose transmitter (Dexcom #1 ea 06/24/21 09/16/22 Rx G6 Transmitter device) carvedilol 25 mg tablet (Coreg) 50 mg PO BID #360 tabs 11/24/21 09/16/22 Rx blood-glucose meter (OneTouch #1 ea 11/25/21 09/16/22 Rx Ultra2 Meter kit) lancets (Action Auto [employer]Touch UltraSoft #200 ea 11/25/21 09/16/22 Rx Lancets) cinacalcet 30 mg tablet 30 mg PO 3XWK 02/11/22 09/16/22 History amlodipine 10 mg tablet 10 mg PO DAILY #90 tabs 03/09/22 09/16/22 Rx insulin aspart U-100 100 unit/mL 1 - 15 unit (0.01 - 0.15 mL) SC 04/08/22 09/16/22 Rx (3 mL) subcutaneous pen (Novolog TIDM PRN SLIDING SCALE #15 mL FlexPen U-100 Insulin aspart) clopidogrel 75 mg tablet (Plavix) 75 mg PO QAM #90 tabs 08/06/22 09/16/22 Rx BD Ultra-Fine Gwen Pen Needle 32 #500 ea 08/10/22 09/16/22 Rx gauge x 5/32" (pen needle, diabetic) blood sugar diagnostic (OneTouch #200 ea 08/10/22 09/16/22 Rx Ultra Test strips) apixaban 2.5 mg tablet (Eliquis) 2.5 mg PO BID #60 tabs 08/28/22 09/16/22 Rx cholecalciferol (vitamin D3) 125 125 mcg PO DAILY #45 caps 09/07/22 09/16/22 Rx mcg (5,000 unit) capsule diclofenac sodium 1 % topical gel 4 g topical QID PRN Pain 09/16/22 09/16/22 History (Voltaren Arthritis Pain) pantoprazole 40 mg tablet,delayed 40 mg PO QAM 09/16/22 09/16/22 History release Past Med/Surg History Medical History Anemia IRON INFUSIONS WEEKLY Background diabetic retinopathy associated with type 2 diabetes mellitus CAD (coronary artery disease) Non obstructive (August 2009) per cardio records CKD (chronic kidney disease), stage IV Hemodialysis MWF Diabetes type 2, uncontrolled Diabetic nephropathy associated with type 2 diabetes mellitus Dyslipidemia ESRD (end stage renal disease) GERD (gastroesophageal reflux disease) History of CVA (cerebrovascular accident) Hx of Lyme disease Hypertension Mitral regurgitation Morbid obesity Nocturnal hypoxemia Nonischemic cardiomyopathy Osteopenia Primary hyperparathyroidism Subclinical hypothyroidism TSH 5.180 in 01/2021 Traumatic ulcer of left lower leg Vitamin D deficiency Vocal cord paralysis syndrome Surgical History Difficult airway for intubation PT STATES HAS HAD VOCAL CORD PARAYSIS IN PAST Fiberoptic intubation used with 10/2019 lap odalis History of cataract surgery RT/LEFT History of vascular access device 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 (USING FOR DIALYSIS) Hx of colonoscopy Hx of eye surgery EYE MUSCLE REPAIR Hx of tonsillectomy Hx of tubal ligation S/P cardiac catheterization OVER 10 YEARS AGO/NO STENTS Status post laparoscopic cholecystectomy (10/07/19) [place] teeth removed Family History Father Family history of diabetes mellitus Aunt Family history of diabetes mellitus Uncle Family history of diabetes mellitus Brother Family history of diabetes mellitus Brother Family history of diabetes mellitus Grandmother (Maternal) Family hx of colon cancer Other Alzheimer disease Coronary heart disease No family history of adverse response to anesthesia Social History Smoking Status: Never smoker Tobacco Type: Cigarettes Second Hand Exposure: No; Do You Dip or Chew Tobacco: No; Hx Alcohol Use: Yes Alcohol type: beer, wine and hard liquor Alcohol Intake Frequency: Monthly or Less Hx Substance Use: No Preferred Language: Swedish Communication Ability: Effective Visual Impairment: No Limitations Hearing Ability: Normal 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 Tree 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 Required: No Beliefs That Will Affect Care: None marital status: Current Living Situation: Spouse Other Information That Helps Us Care for You: No Feels Safe at Home: Yes Safety Concerns: Feels Safe At This Time Diet: low salt and vegetarian caffeine: Yes Seatbelt Use: always Assistive Devices: Walker and Wheelchair Review of Systems Review of Systems: All systems reviewed & are unremarkable except as noted in HPI & below Physical Exam Constitutional: WD/WN, vitals as above no acute distress Eyes: PERRL, conjunctivae normal, anicteric sclerae ENMT: external ear and nose normal, oropharynx normal Neck: + thick neck Respiratory: normal respiratory effort; no respiratory distress Auscultation: lungs clear to auscultation bilaterally; breath sounds present, no diminished lung sounds, no crackles, no rales, no rhonchi and no wheezes Cardiovascular: Rate/Rhythm: regular rate and regular rhythm Heart Sounds: no murmur Vessels: no JVD Extremities: normal capillary refill and + pedal edema (2+ bilateral pitting edema to abdomen); no calf tenderness Gastrointestinal (Abdomen): Inspection/Auscultation: abdomen normal to inspection; abdomen not distended Percussion/Palpation: abdomen soft; abdomen nontender, no guarding and abdomen not rigid Musculoskeletal: no cyanosis or clubbing, extremities motor strength 5/5 Skin: venous stasis ulcers on b/l lower extremities without surrounding cellulitis, largest on back of left calf approx 2cm circumference Neurologic: moves all extremities and awake; not confused Psychiatric: A+Ox3, euthymic affect Results & Data Results & Data Vital Signs (Past 12 Hours) Vital Signs Temp Pulse Resp BP Pulse Ox O2 Del Method 09/16/22 14:47 36.5 C 84 18 138/64 99 Room Air Laboratory Results Abnormal lab results 09/16/22 09/16/22 09/16/22 Range/Units 16:00 16:00 16:00 MCHC 31.7 L (32.0-36.0) g/dL RDW Std Deviation 54.5 H (36.4-46.3) fL RDW Coeff of Braeden 17.4 H (11.5-14.5) % Lymph # (Auto) 0.77 L (1.2-3.4) K/uL Douglas # (Auto) 0.63 H (0.11-0.59) K/uL Anion Gap 17 H (3-11) BUN 50 H (6-23) mg/dl Creatinine 3.95 H (0.6-1.2) mg/dl Glucose 192 H (70-99(Fasting)) mg/dl POC Glucose (70-99) mg/dl B-Natriuretic Peptide > 4700 H (0-100) pg/ml 09/16/22 09/16/22 09/16/22 Range/Units 16:43 17:46 20:54 MCHC (32.0-36.0) g/dL RDW Std Deviation (36.4-46.3) fL RDW Coeff of Braeden (11.5-14.5) % Lymph # (Auto) (1.2-3.4) K/uL Douglas # (Auto) (0.11-0.59) K/uL Anion Gap (3-11) BUN (6-23) mg/dl Creatinine (0.6-1.2) mg/dl Glucose (70-99(Fasting)) mg/dl POC Glucose 166 H 178 H 221 H (70-99) mg/dl B-Natriuretic Peptide (0-100) pg/ml Diagnostic Findings XR chest 1V portable CLINICAL HISTORY: weak TECHNIQUE: Single frontal radiograph of the chest was obtained. Comparison: Comparison is made to chest radiograph 04/11/2021 FINDINGS: There is a dual-lumen right IJ catheter. Cardiomegaly is noted. The aortic arch is calcified. There is prominence and cephalization of the vasculature with Maryann B lines seen. No evidence of pleural effusion or pneumothorax. IMPRESSION: Cardiomegaly and moderate pulmonary edema. Medications Administered ER Medications Given: None ECG Rate (beats per minute): 84 Rhythm: normal sinus Findings: + nonspecific-ST abn (Lateral) and + T-wave inversion (Lateral) Comparison ECG Date: from (Jan 08, 2021) Change: the following changes noted (TWI in lateral leads) Code Status & VTE Plan Code Status Full PG Care Time/CCT Total # of Minutes Spent Total Time Spent with Patient: Total time spent is greater than 50% in coordination of care (as documented) at patient's floor/unit and/or counseling patient: Coding Level of Care Code 16903 INT INP/OBS CARE 375MIN Diagnoses Hypervolemia associated with renal insufficiency E87.70; N28.9 Diabetes type 2, uncontrolled E11.65 Superficial thrombosis of left lower extremity I82.812 Nausea vomiting and diarrhea R11.2; R19.7 Hypertension I10 Hypertension type: essential hypertension ESRD (end stage renal disease) N18.6 GERD (gastroesophageal reflux disease) K21.9 (5) Hypertension Hypertension type: essential hypertension Qualified Code(s): I10 - Essential (primary) hypertension
--- NOTE | 2022-09-16 17:46 | XRay Report ---
XR chest 1V portable CLINICAL HISTORY: weak TECHNIQUE: Single frontal radiograph of the chest was obtained. Comparison: Comparison is made to chest radiograph 04/11/2021 FINDINGS: There is a dual-lumen right IJ catheter. Cardiomegaly is noted. The aortic arch is calcified. There i s prominence and cephalization of the vasculature with Maryann B lines seen. No evidence of pleural ef fusion or pneumothorax. IMPRESSION: Cardiomegaly and moderate pulmonary edema. ACT 112: Negative or not required by law. Electronically signed by: Angel Thompson M.D. 09/16/2022 5:44 PM
[2022-09-16] MEDS ORDERED: GLUCAGON FOR INJ 1 MG VIAL SQ PRN (21:26)
[2022-09-16] MEDS ORDERED: GLUCOSE 40% GEL 15 GM TUBE PO PRN (21:26)
[2022-09-16] MEDS ORDERED: GLUCOSE 10 TAB/TUBE PO PRN (21:26)
[2022-09-16] MEDS ORDERED: DICLOFENAC SOD 1% GEL 100 GM TUBE EXT PRN (21:26)
[2022-09-16] MEDS ORDERED: DEXTROSE 50% 50 ML SYRINGE IV PRN (21:26)
[2022-09-16] MEDS: INSULIN ASPART PER UNIT CHARGE SC SCH (22:50)
[2022-09-16] MEDS: carvediloL 25 MG TAB PO SCH (22:51)
[2022-09-16] MEDS: APIXABAN 2.5 MG TAB PO SCH (22:51)
[2022-09-16] MEDS: LANTUS PER UNIT CHARGE SQ SCH (22:51)
[2022-09-17 07:40] LABS: Basophils # (auto) 0.03 K/uL (0-0.2); Basophils % (auto) 0.7 %; Eosinophils # (auto) 0.16 K/uL (0-0.50); Eosinophils % (auto) 3.9 %; Hematocrit (blood only) 32.8 % (37.0-47.0); Hemoglobin 10.4 g/dl (12.0-16.0); Immature Granulocytes # (auto) 0.01 K/uL (0.01-0.20); Immature Granulocytes % (auto) 0.2 %; Lymphocytes # (auto) 1.07 K/uL (1.2-3.4); Lymphocytes % (auto) 25.8 %; Mean Corpuscular Hemoglobin 27.7 pg (25.0-34.0); Mean Corpuscular Hgb Conc 31.7 g/dL (32.0-36.0); Mean Corpuscular Volume 87.2 fL (80.0-100.0); Mean Platelet Volume 11.1 fL (9.4-12.4); Monocytes # (auto) 0.54 K/uL (0.11-0.59); Neutrophils # (auto) 2.33 K/uL (1.40-6.50); Neutrophils % (auto) 56.4 %; Platelet Count 157 K/uL (130-400); RDW Coefficient of Variation 17.3 % (11.5-14.5); RDW Standard Deviation 54.5 fL (36.4-46.3); Red Blood Count 3.76 M/uL (4.20-5.40); White Blood Count 4.14 K/ul (4.8-10.8)
[2022-09-17 07:55] LABS: BUN Creatinine Ratio 12.3 (10-20); Calcium 9.6 mg/dl (8.6-10.3); Creatinine Clr Calc Pharmacy 14.7 ml/min; Est GFR (African American) 10.8 ml/min; Est GFR (Non-African American) 9.3 ml/min; Potassium 4.5 mmol/L (3.5-5.1)
--- NOTE | 2022-09-17 08:17 | Nephrology Consultation ---
Date of Consultation September 17, 2022 Assessment & Plan (1) End stage renal disease: * Outpatient HD Rx: [facility] - MWF 3.5 hr, Revaclear 300 dialyzer, Na140/2K 2Ca/HCO3 32, EDW 94.5kg, access = CVC * Current dialysis access remains IJ TCC. Patient reports prolonged bleeding from R BC AVF * Despite HD yesterday, patient remains clinically volume overloaded. Will schedule HD today for 3 hrs and attempt 3-4 L UF * Will plan next HD for am to resume outpatient MWF schedule (2) Anemia: * Will order iron studies * Will provide CATHIE w/ HD today (3) Diarrhea: * Consider stool PCR testing if persistent diarrhea (4) Diabetes type 2, uncontrolled: * Recommend consultation w/ diabetic nurse educator * Patient would benefit from Dexcom meter and clear instructions on insulin administration when discharged from hospital (5) Failure to thrive in adult: * Begin physical therapy * Case management to meet w/ patient and to discuss placement following hospitalization History of Present Illness Reason for Consultation: ESKD on IHD Attending Physician: Marilyn Presley MD History of Present Illness Mrs. Reyna is a 67 year old white female who is seen at the request of the [facility] Hospitalist Service to provide inpatient HD and assist w/ medical management. Information for the HPI is obtained from interviewing the patient, review of EMR and is summarized as follows: Mrs. Reyna has ESKD due to diabetic nephropathy. Her primary Lawn Mower is Dr. Garcia. Mrs. Reyna is on IHD MWF at [facility] (3.5 hr, Revaclear 300 dialyzer, Na140/2K 2Ca/HCO3 32, EDW 94.5kg, access = CVC). Her medical history is significant for AODM, HTN, ASCVD. Mrs. Reyna missed two dialysis treatments last week due to N/V/D. She presented to HD yesterday profoundly weak and 9 kg above her EDW. Dialysis was completed without complication but hospital admission advised due to volume overload, failure to thrive and poor glycemic control (not using Dexcom meter because sensor repeatedly fell off). Mrs. Reyna is open to assisted care placement due to her functional decline Allergies Allergies Allergy/AdvReac Type Severity Reaction Status Date / Time dulaglutide [From [facility]] Allergy Intermediate Hives Verified 09/10/22 10:12 atorvastatin AdvReac Intermediate Joint Pain Verified 09/10/22 10:12 erythromycin base AdvReac Intermediate Vomiting Verified 09/10/22 10:12 Home Medications Medication Instructions Recorded Confirmed Type blood-glucose sensor (Dexcom G6 #3 ea 06/24/21 09/16/22 Rx Sensor device) blood-glucose transmitter (Dexcom #1 ea 06/24/21 09/16/22 Rx G6 Transmitter device) carvedilol 25 mg tablet (Coreg) 50 mg PO BID #360 tabs 11/24/21 09/16/22 Rx blood-glucose meter (OneTouch #1 ea 11/25/21 09/16/22 Rx Ultra2 Meter kit) lancets (AI PatentsTouch UltraSoft #200 ea 11/25/21 09/16/22 Rx Lancets) cinacalcet 30 mg tablet 30 mg PO 3XWK 02/11/22 09/16/22 History amlodipine 10 mg tablet 10 mg PO DAILY #90 tabs 03/09/22 09/16/22 Rx insulin aspart U-100 100 unit/mL 1 - 15 unit (0.01 - 0.15 mL) SC 04/08/22 09/16/22 Rx (3 mL) subcutaneous pen (Novolog TIDM PRN SLIDING SCALE #15 mL FlexPen U-100 Insulin aspart) clopidogrel 75 mg tablet (Plavix) 75 mg PO QAM #90 tabs 08/06/22 09/16/22 Rx BD Ultra-Fine Gwen Pen Needle 32 #500 ea 08/10/22 09/16/22 Rx gauge x 5/32" (pen needle, diabetic) blood sugar diagnostic (OneTouch #200 ea 08/10/22 09/16/22 Rx Ultra Test strips) apixaban 2.5 mg tablet (Eliquis) 2.5 mg PO BID #60 tabs 08/28/22 09/16/22 Rx cholecalciferol (vitamin D3) 125 125 mcg PO DAILY #45 caps 09/07/22 09/16/22 Rx mcg (5,000 unit) capsule diclofenac sodium 1 % topical gel 4 g topical QID PRN Pain 09/16/22 09/16/22 History (Voltaren Arthritis Pain) pantoprazole 40 mg tablet,delayed 40 mg PO QAM 09/16/22 09/16/22 History release Patient History Medical History (Updated 09/17/22 @ 11:16 by Matthew Vance MD) Anemia Background diabetic retinopathy associated with type 2 diabetes mellitus CAD (coronary artery disease) Non obstructive (August 2009) per cardio records CKD (chronic kidney disease), stage IV Hemodialysis MWF Diabetes type 2, uncontrolled Diabetic nephropathy associated with type 2 diabetes mellitus Dyslipidemia ESRD (end stage renal disease) GERD (gastroesophageal reflux disease) History of CVA (cerebrovascular accident) Hx of Lyme disease Hypertension Mitral regurgitation Morbid obesity Nocturnal hypoxemia Nonischemic cardiomyopathy Osteopenia Primary hyperparathyroidism Subclinical hypothyroidism TSH 5.180 in 01/2021 Traumatic ulcer of left lower leg Vitamin D deficiency Vocal cord paralysis syndrome Surgical History Difficult airway for intubation PT STATES HAS HAD VOCAL CORD PARAYSIS IN PAST Fiberoptic intubation used with 10/2019 lap odalis History of cataract surgery RT/LEFT History of vascular access device 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 (USING FOR DIALYSIS) Hx of colonoscopy Hx of eye surgery EYE MUSCLE REPAIR Hx of tonsillectomy Hx of tubal ligation S/P cardiac catheterization OVER 10 YEARS AGO/NO STENTS Status post laparoscopic cholecystectomy (10/07/19) [place] teeth removed Family History Father Family history of diabetes mellitus Aunt Family history of diabetes mellitus Uncle Family history of diabetes mellitus Brother Family history of diabetes mellitus Brother Family history of diabetes mellitus Grandmother (Maternal) Family hx of colon cancer Other Alzheimer disease Coronary heart disease No family history of adverse response to anesthesia Social History Smoking Status: Never smoker Tobacco Type: Cigarettes Second Hand Exposure: No; Do You Dip or Chew Tobacco: No; Hx Alcohol Use: Yes Alcohol type: beer, wine and hard liquor Alcohol Intake Frequency: Monthly or Less Hx Substance Use: No Preferred Language: Venezuelan Communication Ability: Effective Visual Impairment: No Limitations Hearing Ability: Normal 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 Beliefs That Will Affect Care: None marital status: Current Living Situation: Spouse Other Information That Helps Us Care for You: No Feels Safe at Home: Yes Safety Concerns: Feels Safe At This Time Diet: low salt and vegetarian caffeine: Yes Seatbelt Use: always Assistive Devices: Walker and Wheelchair Review of Systems Constitutional: no fever Eyes: no problem reported Ear, Nose, Mouth, Throat: no problem reported Respiratory: no cough and no dyspnea Cardiovascular: no chest pain Additional Comments: + LE swelling Gastrointestinal: + nausea and + diarrhea/loose stools; no abdominal pain Physical Exam Constitutional: no acute distress Eyes: PERRL, conjunctivae normal, anicteric sclerae ENMT: external ear and nose normal, oropharynx normal Neck: trachea midline, no thyromegaly R IJ TCC Respiratory: normal respiratory effort, lungs clear to auscultation Cardiovascular: Rate/Rhythm: regular rate and regular rhythm Extremities: + edema (3+ bilateral LE swelling) and + AV fistula (R BC AVF + bruit) Gastrointestinal (Abdomen): normal bowel sounds, soft, nontender, no hepatosplenomegaly Neurologic: Speech / Cognition: normal speech and normal cognition Results & Data Vital Signs (Past 12 Hours) Vital Signs Temp Pulse Pulse Resp BP Pulse Ox O2 Del Method 09/17/22 07:32 70 09/17/22 04:17 36.6 C 71 16 105/65 92 Room Air 09/17/22 02:54 78 09/16/22 21:01 79 09/16/22 22:48 36.9 C 78 20 129/79 93 Room Air 09/16/22 22:23 Room Air 09/16/22 22:23 36.3 C L 79 20 139/82 96 Room Air 09/16/22 20:50 36.3 C L 79 20 139/82 96 Room Air 09/16/22 20:24 Room Air Laboratory Results Laboratory Tests 09/17/22 09/17/22 06:56 06:56 WBC 4.14 L Hgb 10.4 L Hct 32.8 L Plt Count 157 Sodium 137 Potassium 4.5 Chloride 102 Carbon Dioxide 21 BUN 56 H Creatinine 4.57 H* D Glucose 197 H PG Care Time/CCT Total # of Minutes Spent Total Time Spent with Patient: Total time spent is greater than 50% in coordination of care (as documented) at patient's floor/unit and/or counseling patient: Coding Level of Care Code 25965 IN/OBS CONSULT LVL 5,80M Diagnoses End stage renal disease N18.6 Anemia D64.9 Anemia type: unspecified type Diarrhea R19.7 Diabetes type 2, uncontrolled E11.65 Failure to thrive in adult R62.7 (2) Anemia Anemia type: unspecified type Qualified Code(s): D64.9 - Anemia, unspecified
[2022-09-17] MEDS: APIXABAN 2.5 MG TAB PO SCH ×2 (08:30→21:41)
[2022-09-17] MEDS: carvediloL 25 MG TAB PO SCH ×2 (08:30→21:41)
[2022-09-17] MEDS: PANTOprazole 40 MG TAB PO SCH (08:31)
[2022-09-17] MEDS: amLODIPine BESYLATE 5 MG TAB PO SCH (08:31)
[2022-09-17] MEDS: CHOLECALCIFEROL 5,000 UNITS 125 MCG TAB PO SCH (08:31)
[2022-09-17] MEDS: CLOPIDOGREL BISULFATE 75 MG TAB PO SCH (08:31)
[2022-09-17] MEDS: LANTUS PER UNIT CHARGE SQ SCH ×2 (08:33→20:42)
[2022-09-17] MEDS: INSULIN ASPART PER UNIT CHARGE SC SCH ×4 (08:33→20:42)
[2022-09-17] MEDS ORDERED: EPOETIN ALFA 10,000 UNITS/ML VIAL IV ONE (09:51)
[2022-09-17] MEDS ORDERED: SODIUM CHLORIDE 0.9% 1000ML 1,000 ML IV PRN (09:51)
--- NOTE | 2022-09-17 11:14 | Hospitalist Progress Note ---
Date of Service September 17, 2022 Assessment & Plan (1) Hypervolemia associated with renal insufficiency: Plan: Patient missed a couple of her HD sessions due to diarrhea Presents with fluid overload Nephrology on consult, plan is to continue HD Monitor fluid status (2) Diabetes type 2, uncontrolled: Plan: Unsure about home insulin regimen Given unclear insulin regimen need will use Lantus 0-10 units depending on glucose < or > 120 Novolog carb ratio and correction factor based off previous hospitalization: --Goal BSG Range: Low 110 mg/dL, High 140mg/dL --Correction Factor: 20 mg/dL/unit --Carbohydrate ratio = 7 g/unit --BSGs ACHS if eating, q6h if npo Check HbA1c (3) Superficial thrombosis of left lower extremity: Plan: On apixaban for 1 month started August 28. To be re-evaluated by her sheet metal apprentice at that time. (4) Nausea vomiting and diarrhea: Plan: Reason for missing 2 dialysis sessions. Appears resolved Pantoprazole 40mg IV now then continue PO daily (5) Hypertension: Plan: Continue carvedilol (lowered hold parameters) and amlodipine (6) ESRD (end stage renal disease): Plan: Continue HD (7) GERD (gastroesophageal reflux disease): (8) Chronic acquired lymphedema: Plan: with some open wound continue wound care Plan VTE Prophylaxis - Eliquis Diet - dialysis renal, T2DM Disposition - continue hospitalization, hopefully d/c in the next 48 hrs Admission and Anticipated Discharge Date Admission Date: September 16, 2022 Subjective patient seen and examined, senior asic design engineer by the bed side, denies any new complaints Review of Systems Review of Systems: All systems reviewed are negative, apart from the ones contained in the history. Physical Exam Physical Exam: The patient is awake, alert and oriented 3, well developed and well nourished, normocephalic and atraumatic, lying in bed and in no acute distress. HEENT--PERRL, EOMI, mucous membranes and oropharynx mildly dry Neck--supple. No JVD. No bruits. Thyroid normal, trachea midline, no adenopathy. Heart--normal S1 and S2. No murmurs, rubs or gallops. Lungs--clear bilaterally, no respiratory distress, no accessory muscle use. Abdomen--normal bowel sounds and soft. Mild epigastric and left sided abdominal pain Extremities--trace leg edema, bilateral lower extremity wounds Dermatologic--normal skin turgor, normal color, no abnormal lymph nodes, no rash. Neurologic--cranial nerves II through XII grossly intact. Rheumatologic--normal range of motion. Psychiatric--normal affect. Results & Data Results & Data Vital Signs (Past 12 Hours) Vital Signs Temp Pulse Pulse Resp BP BP Pulse Ox 09/17/22 10:46 69 112/64 09/17/22 08:43 99.0 F 73 16 139/63 92 09/17/22 07:32 70 09/17/22 04:17 97.9 F 71 16 105/65 92 09/17/22 02:54 78 O2 Del Method 09/17/22 10:46 09/17/22 08:43 Room Air 09/17/22 07:32 09/17/22 04:17 Room Air 09/17/22 02:54 PG Care Time/CCT Total # of Minutes Spent Total Time Spent with Patient: Total time spent is greater than 50% in coordination of care (as documented) at patient's floor/unit and/or counseling patient: Coding Level of Care Code 61488 SUB INP/OBS CARE 2/35MIN Diagnoses Hypervolemia associated with renal insufficiency E87.70; N28.9 Diabetes type 2, uncontrolled E11.65 Superficial thrombosis of left lower extremity I82.812 Nausea vomiting and diarrhea R11.2; R19.7 Hypertension I10 Hypertension type: essential hypertension ESRD (end stage renal disease) N18.6 GERD (gastroesophageal reflux disease) K21.9 Chronic acquired lymphedema I89.0 Time Spent (min) 35 (5) Hypertension Hypertension type: essential hypertension Qualified Code(s): I10 - Essential (primary) hypertension
[2022-09-17 12:48] LABS: Estimated Average Glucose 266 mg/dl; Hemoglobin A1C 10.9 % (4.5-5.6)
--- NOTE | 2022-09-17 18:57 | Electrocardiogram Report ---
Test Reason : Blood Pressure : / mmHG Vent. Rate : 084 BPM Atrial Rate : 084 BPM P-R Int : 164 ms QRS Dur : 094 ms QT Int : 404 ms P-R-T Axes : 046 -19 168 degrees QTc Int : 477 ms Normal sinus rhythm Minimal voltage criteria for LVH, may be normal variant Possible Anterolateral infarct , age undetermined Abnormal ECG When compared with ECG of 08-JAN-2021 16:13, Borderline criteria for Anterolateral infarct are now Present Non-specific change in ST segment in Lateral leads T wave inversion no longer evident in Inferior leads Nonspecific T wave abnormality no longer evident in Anterior leads T wave inversion more evident in Lateral leads Confirmed by Jesse Fontenot ([id number] on 09/17/2022 6:56:36 PM Referred By: Confirmed By:Cliff Fontenot
[2022-09-17] MEDS ORDERED: ACETAMINOPHEN 325 MG TAB PO PRN (21:39)
[2022-09-18] MEDS ORDERED: SODIUM CHLORIDE 0.9% 1000ML 1,000 ML IV PRN (07:00)
[2022-09-18] MEDS: LANTUS PER UNIT CHARGE SQ SCH ×2 (07:40→20:53)
[2022-09-18] MEDS: INSULIN ASPART PER UNIT CHARGE SC SCH ×4 (07:40→20:45)
[2022-09-18 08:05] LABS: Hematocrit (blood only) 35.6 % (37.0-47.0); Hemoglobin 10.9 g/dl (12.0-16.0); Mean Corpuscular Hemoglobin 27.7 pg (25.0-34.0); Mean Corpuscular Hgb Conc 30.6 g/dL (32.0-36.0); Mean Corpuscular Volume 90.4 fL (80.0-100.0); Mean Platelet Volume 11.3 fL (9.4-12.4); Platelet Count 143 K/uL (130-400); RDW Coefficient of Variation 17.4 % (11.5-14.5); RDW Standard Deviation 57.1 fL (36.4-46.3); Red Blood Count 3.94 M/uL (4.20-5.40); White Blood Count 3.91 K/ul (4.8-10.8)
[2022-09-18 08:23] LABS: BUN Creatinine Ratio 9.6 (10-20); Calcium 9.4 mg/dl (8.6-10.3); Creatinine Clr Calc Pharmacy 16.5 ml/min; Est GFR (African American) 12.4 ml/min; Est GFR (Non-African American) 10.7 ml/min; Potassium 4.5 mmol/L (3.5-5.1)
--- NOTE | 2022-09-18 08:38 | Nephrology Progress Note ---
Date of Service September 18, 2022 Assessment & Plan (1) End stage renal disease: Plan: * Outpatient HD Rx: [facility] - MWF 3.5 hr, Revaclear 300 dialyzer, Na140/2K 2Ca/HCO3 32, EDW 94.5kg, access = CVC * Current dialysis access remains IJ TCC. Patient reports prolonged bleeding from R BC AVF * Despite HD yesterday, patient remains clinically volume overloaded. Will schedule HD today for 3.5 hrs and attempt 4 L UF (2) Anemia: Plan: * Will provide CATHIE w/ HD today (3) Diarrhea: Plan: * Resolved (4) Diabetes type 2, uncontrolled: Plan: * Recommend consultation w/ diabetic nurse educator * Patient would benefit from Dexcom meter and clear instructions on insulin administration when discharged from hospital (5) Failure to thrive in adult: Plan: * Continue physical therapy * Case management to meet w/ patient and to discuss placement following hospitalization Admission and Anticipated Discharge Date Admission Date: September 16, 2022 Subjective Mrs. Reyna was evaluated in her hospital room this morning. She reports that her diarrhea has resolved but she remains weak and fatigued. Mrs. Reyna was dialyzed yesterday for 3L UF. She is agreeable to dialysis today for continued UF. Review of Systems Constitutional: no fever Eyes: no problem reported Ear, Nose, Mouth, Throat: no problem reported Respiratory: no cough and no dyspnea Cardiovascular: no chest pain Additional Comments: + LE swelling Gastrointestinal: + nausea and + diarrhea/loose stools; no abdominal pain Physical Exam Constitutional: no acute distress Eyes: PERRL, conjunctivae normal, anicteric sclerae ENMT: external ear and nose normal, oropharynx normal Neck: trachea midline, no thyromegaly Respiratory: normal respiratory effort, lungs clear to auscultation Cardiovascular: Rate/Rhythm: regular rate and regular rhythm Extremities: + edema (3+ bilateral LE swelling) and + AV fistula (R BC AVF + bruit) Gastrointestinal (Abdomen): normal bowel sounds, soft, nontender, no hepatosplenomegaly Neurologic: Speech / Cognition: normal speech and normal cognition Results & Data Vital Signs (Past 12 Hours) Vital Signs Temp Pulse Pulse Pulse Resp BP BP 09/18/22 08:30 64 105/58 L 09/18/22 08:11 65 105/63 09/18/22 08:05 36.4 C L 66 09/18/22 08:06 36.4 C L 66 18 111/66 09/18/22 07:11 63 09/18/22 03:49 37 C 62 18 108/64 09/17/22 21:00 09/17/22 22:00 69 09/17/22 23:09 36.8 C 69 18 111/65 Pulse Ox O2 Del Method 09/18/22 08:30 09/18/22 08:11 09/18/22 08:05 09/18/22 08:06 95 Room Air 09/18/22 07:11 09/18/22 03:49 95 Room Air 09/17/22 21:00 Room Air 09/17/22 22:00 09/17/22 23:09 94 Room Air Laboratory Results Laboratory Tests 09/18/22 09/18/22 07:31 07:31 WBC 3.91 L Hgb 10.9 L Hct 35.6 L Plt Count 143 Sodium 137 Potassium 4.5 Chloride 104 Carbon Dioxide 22 BUN 39 H Creatinine 4.06 H D Glucose 183 H Laboratory Tests 09/18/22 07:31 Transferrin % Sat 13 L Ferritin Pending Coding Level of Care Code 27004 SUB INP/OBS CARE 3/50MIN Diagnoses End stage renal disease N18.6 Anemia D64.9 Anemia type: unspecified type Diarrhea R19.7 Diabetes type 2, uncontrolled E11.65 Failure to thrive in adult R62.7 (2) Anemia Anemia type: unspecified type Qualified Code(s): D64.9 - Anemia, unspecified
[2022-09-18 08:43] LABS: Ferritin 570.3 ng/ml (8-388)
[2022-09-18] MEDS: carvediloL 25 MG TAB PO SCH ×2 (12:22→20:54)
[2022-09-18] MEDS: CLOPIDOGREL BISULFATE 75 MG TAB PO SCH (12:23)
[2022-09-18] MEDS: CHOLECALCIFEROL 5,000 UNITS 125 MCG TAB PO SCH (12:23)
[2022-09-18] MEDS: PANTOprazole 40 MG TAB PO SCH (12:23)
[2022-09-18] MEDS: amLODIPine BESYLATE 5 MG TAB PO SCH (12:23)
[2022-09-18] MEDS: CINACALCET HCL 30 MG TAB PO SCH (12:23)
[2022-09-18] MEDS: APIXABAN 2.5 MG TAB PO SCH ×2 (12:23→20:54)
--- NOTE | 2022-09-18 14:43 | Hospitalist Progress Note ---
Date of Service September 18, 2022 Assessment & Plan (1) Hypervolemia associated with renal insufficiency: Plan: Patient missed a couple of her HD sessions due to diarrhea Presents with fluid overload Nephrology on consult, plan is to continue HD Monitor fluid status Patient has had back to back HD (2) Diabetes type 2, uncontrolled: Plan: Unsure about home insulin regimen Given unclear insulin regimen need will use Lantus 0-10 units depending on glucose < or > 120 Novolog carb ratio and correction factor based off previous hospitalization: --Goal BSG Range: Low 110 mg/dL, High 140mg/dL --Correction Factor: 20 mg/dL/unit --Carbohydrate ratio = 7 g/unit --BSGs ACHS if eating, q6h if npo - HbA1c 10.9 -Waking up with hyprglycemia, around 180 -Will start glargine 20 units BID Consult assistant wrestling coach (3) Superficial thrombosis of left lower extremity: Plan: On apixaban for 1 month started August 28. To be re-evaluated by her in terventional green end worker at that time. (4) Nausea vomiting and diarrhea: Plan: Reason for missing 2 dialysis sessions. Appears resolved Pantoprazole 40mg IV now then continue PO daily (5) Hypertension: Plan: Continue carvedilol (lowered hold parameters) and amlodipine (6) ESRD (end stage renal disease): Plan: Continue HD (7) GERD (gastroesophageal reflux disease): (8) Chronic acquired lymphedema: Plan: with some open wound continue wound care Plan VTE Prophylaxis - Eliquis Diet - dialysis renal, T2DM Disposition - continue hospitalization, hopefully d/c in the next 48 hrs, family want SNF Admission and Anticipated Discharge Date Admission Date: September 16, 2022 Subjective patient seen and examined, says diarrhea has stopped, tolerating back to back HD Review of Systems Review of Systems: All systems reviewed are negative, apart from the ones contained in the history. Physical Exam Physical Exam: The patient is awake, alert and oriented 3, well developed and well nourished, normocephalic and atraumatic, lying in bed and in no acute distress. HEENT--PERRL, EOMI, mucous membranes and oropharynx mildly dry Neck--supple. No JVD. No bruits. Thyroid normal, trachea midline, no adenopathy. Heart--normal S1 and S2. No murmurs, rubs or gallops. Lungs--clear bilaterally, no respiratory distress, no accessory muscle use. Abdomen--normal bowel sounds and soft. Mild epigastric and left sided abdominal pain Extremities--trace leg edema, bilateral lower extremity wounds Dermatologic--normal skin turgor, normal color, no abnormal lymph nodes, no ra sh. Neurologic--cranial nerves II through XII grossly intact. Rheumatologic--normal range of motion. Psychiatric--normal affect. Results & Data Results & Data Vital Signs (Past 12 Hours) Vital Signs Temp Pulse Pulse Pulse Resp BP BP 09/18/22 13:14 09/18/22 12:16 97.3 F L 68 19 106/63 09/18/22 11:45 97.9 F 67 103/59 L 09/18/22 11:30 65 110/57 L 09/18/22 11:00 65 107/57 L 09/18/22 10:30 65 106/54 L 09/18/22 10:00 64 102/53 L 09/18/22 09:30 65 101/55 L 09/18/22 09:00 64 101/55 L 09/18/22 08:30 64 105/58 L 09/18/22 08:11 65 105/63 09/18/22 08:05 97.5 F L 66 09/18/22 08:06 97.5 F L 66 18 111/66 09/18/22 07:11 63 09/18/22 03:49 98.6 F 62 18 108/64 Pulse Ox O2 Del Method 09/18/22 13:14 Room Air 09/18/22 12:16 97 Room Air 09/18/22 11:45 09/18/22 11:30 09/18/22 11:00 09/18/22 10:30 09/18/22 10:00 09/18/22 09:30 09/18/22 09:00 09/18/22 08:30 09/18/22 08:11 09/18/22 08:05 09/18/22 08:06 95 Room Air 09/18/22 07:11 09/18/22 03:49 95 Room Air PG Care Time/CCT Total # of Minutes Spent Total Time Spent with Patient: Total time spent is greater than 50% in coordination of care (as documented) at patient's floor/unit and/or counseling patient: Coding Level of Care Code 61244 SUB INP/OBS CARE 235MIN Diagnoses Hypervolemia associated with renal insufficiency E87.70; N28.9 Diabetes type 2, uncontrolled E11.65 Superficial thrombosis of left lower extremity I82.812 Nausea vomiting and diarrhea R11.2; R19.7 Hypertension I10 Hypertension type: essential hypertension ESRD (end stage renal disease) N18.6 GERD (gastroesophageal reflux disease) K21.9 Chronic acquired lymphedema I89.0 Time Spent (min) 35 (5) Hypertension Hypertension type: essential hypertension Qualified Code(s): I10 - Essential (primary) hypertension
[2022-09-19] MEDS ORDERED: INSULIN ASPART PER UNIT CHARGE SC STA (03:58)
[2022-09-19] MEDS: APIXABAN 2.5 MG TAB PO SCH ×2 (08:10→21:01)
[2022-09-19] MEDS: carvediloL 25 MG TAB PO SCH ×2 (08:10→21:01)
[2022-09-19] MEDS: PANTOprazole 40 MG TAB PO SCH (08:10)
[2022-09-19] MEDS: CLOPIDOGREL BISULFATE 75 MG TAB PO SCH (08:11)
[2022-09-19] MEDS: amLODIPine BESYLATE 5 MG TAB PO SCH (08:11)
[2022-09-19] MEDS: CHOLECALCIFEROL 5,000 UNITS 125 MCG TAB PO SCH (08:11)
[2022-09-19] MEDS: INSULIN ASPART PER UNIT CHARGE SC SCH ×4 (08:12→21:26)
[2022-09-19] MEDS: LANTUS PER UNIT CHARGE SQ SCH ×2 (08:12→21:27)
--- NOTE | 2022-09-19 12:32 | Hospitalist Progress Note ---
Date of Service September 19, 2022 Assessment & Plan (1) Hypervolemia associated with renal insufficiency: Plan: Patient missed a couple of her HD sessions due to diarrhea Presents with fluid overload Nephrology on consult, plan is to continue HD Monitor fluid status Patient has had back to back HD (2) Diabetes type 2, uncontrolled: Plan: Unsure about home insulin regimen Given unclear insulin regimen need will use Lantus 0-10 units depending on glucose < or > 120 Novolog carb ratio and correction factor based off previous hospitalization: --Goal BSG Range: Low 110 mg/dL, High 140mg/dL --Correction Factor: 20 mg/dL/unit --Carbohydrate ratio = 7 g/unit --BSGs ACHS if eating, q6h if npo - HbA1c 10.9 -Waking up with hyprglycemia, around 180 -Will start glargine 20 units BID -Consult life educator -Blood gucose now under better control (3) Superficial thrombosis of left lower extremity: Plan: On apixaban for 1 month started August 28. To be re-evaluated by her automobile lights assembler at that time. (4) Nausea vomiting and diarrhea: Plan: Etiology of diarrhea is uncertain will obtain stool biofire and C diff Encourage oral intake (5) Hypertension: Plan: Continue carvedilol (lowered hold parameters) and amlodipine (6) ESRD (end stage renal disease): Plan: Continue HD (7) GERD (gastroesophageal reflux disease): (8) Chronic acquired lymphedema: Plan: with some open wound continue wound care Plan VTE Prophylaxis - Eliquis Diet - dialysis renal, T2DM Disposition - continue hospitalization, hopefully d/c in the next 48 hrs, family want SNF Admission and Anticipated Discharge Date Admission Date: September 16, 2022 Subjective patient seen and examined, still having bouts of diarrhea Review of Systems Review of Systems: All systems reviewed are negative, apart from the ones contained in the history. Physical Exam Physical Exam: The patient is awake, alert and oriented 3, well developed and well nourished, normocephalic and atraumatic, lying in bed and in no acute distress. HEENT--PERRL, EOMI, mucous membranes and oropharynx mildly dry Neck--supple. No JVD. No bruits. Thyroid normal, trachea midline, no adenopathy. Heart--normal S1 and S2. No murmurs, rubs or gallops. Lungs--clear bilaterally, no respiratory distress, no accessory muscle use. Abdomen--normal bowel sounds and soft. Mild epigastric and left sided abdominal pain Extremities--trace leg edema, bilateral lower extremity wounds Dermatologic--normal skin turgor, normal color, no abnormal lymph nodes, no rash. Neurologic--cranial nerves II through XII grossly intact. Rheumatologic--normal range of motion. Psychiatric--normal affect. Results & Data Results & Data Vital Signs (Past 12 Hours) Vital Signs Temp Pulse Pulse Resp BP Pulse Ox O2 Del Method 09/19/22 10:47 97.7 F 65 20 105/63 95 Room Air 09/19/22 07:39 Room Air 09/19/22 07:15 67 09/19/22 07:00 97.9 F 73 16 106/64 95 Room Air 09/19/22 04:00 97.7 F 72 20 108/67 95 Room Air PG Care Time/CCT Total # of Minutes Spent Total Time Spent with Patient: Total time spent is greater than 50% in coordination of care (as documented) at patient's floor/unit and/or counseling patient: Coding Level of Care Code 35172 SUB INP/OBS CARE 2/35MIN Diagnoses Hypervolemia associated with renal insufficiency E87.70; N28.9 Diabetes type 2, uncontrolled E11.65 Superficial thrombosis of left lower extremity I82.812 Nausea vomiting and diarrhea R11.2; R19.7 Hypertension I10 Hypertension type: essential hypertension ESRD (end stage renal disease) N18.6 GERD (gastroesophageal reflux disease) K21.9 Chronic acquired lymphedema I89.0 Time Spent (min) 35 (5) Hypertension Hypertension type: essential hypertension Qualified Code(s): I10 - Essential (primary) hypertension
[2022-09-19 12:38] LABS: Hematocrit (blood only) 36.2 % (37.0-47.0); Hemoglobin 11.1 g/dl (12.0-16.0); Mean Corpuscular Hemoglobin 28.1 pg (25.0-34.0); Mean Corpuscular Hgb Conc 30.7 g/dL (32.0-36.0); Mean Corpuscular Volume 91.6 fL (80.0-100.0); Mean Platelet Volume 11.3 fL (9.4-12.4); Platelet Count 153 K/uL (130-400); RDW Coefficient of Variation 17.5 % (11.5-14.5); RDW Standard Deviation 58.1 fL (36.4-46.3); Red Blood Count 3.95 M/uL (4.20-5.40); White Blood Count 4.31 K/ul (4.8-10.8)
[2022-09-19 12:46] LABS: Calcium 9.6 mg/dl (8.6-10.3); Creatinine Clr Calc Pharmacy 18.1 ml/min; Est GFR (African American) 14.2 ml/min; Est GFR (Non-African American) 12.3 ml/min; Potassium 4.1 mmol/L (3.5-5.1)
[2022-09-19 13:23] LABS: Adenovirus F 40/41 PCR Not Detected (NotDetected); Astrovirus PCR Not Detected (NotDetected); Campylobacter PCR Not Detected (NotDetected); Cryptosporidium PCR Not Detected (NotDetected); Cyclospora cayetanensis PCR Not Detected (NotDetected); Entamoeba histolytica PCR Not Detected (NotDetected); Enteroaggregative E.coli(EAEC) Not Detected (NotDetected); Enteropathogenic E.coli (EPEC) Not Detected (NotDetected); Enterotoxigenic E.coli (ETEC) Not Detected (NotDetected); Giardia lamblia PCR Not Detected (NotDetected); Norovirus GI/GII PCR Not Detected (NotDetected); Plesiomonas shigelloides PCR Not Detected (NotDetected); Rotavirus A PCR Not Detected (NotDetected); Salmonella PCR Not Detected (NotDetected); Sapovirus PCR Not Detected (NotDetected); Shiga-like Toxin E.coli (STEC) Not Detected (NotDetected); Shigella/Enteroinvasive E.coli Not Detected (NotDetected); Vibrio cholerae PCR Not Detected (NotDetected); Vibrio species PCR Not Detected (NotDetected); Yersinia enterocolitica PCR Not Detected (NotDetected)
--- NOTE | 2022-09-19 14:07 | Nephrology Progress Note ---
Date of Service September 19, 2022 Assessment & Plan (1) End stage renal disease: Plan Mrs. Reyna is a 67 year old female with end-stage renal disease secondary to diabetic nephropathy, on hemodialysis Wednesday, Wednesday, Wednesday at [facility] dialysis, admitted to the hospital with volume overload after missing cyst session last week due to nausea, vomiting and diarrhea. She presented to ER profoundly weak and more than 9 kg above her estimated dry weight of kg. Add back to back dialysis with significant improvement in her volume status although she is still above her dry weight but clinically looks much better. She dialysis via IJ tunneled dialysis catheter although she has functioning AV fistula which is not being used because of history of prolonged bleeding. Over last few months she has been clinically declining with failure to thrive and now she is open to assisted care placement due to her functional decline. -- continue to monitor over the weekend as currently volume status, blood pressure, electrolyte acceptable. -- Plan for next dialysis Wednesday -- waiting on assisted care facility placement will follow Admission and Anticipated Discharge Date Admission Date: September 16, 2022 Giovanni Mathis was seen and evaluated this morning. She was lying in bed comfortable, denied any shortness of breath. He had [id number] dialysis with significant improvement in her volume status. Electrolyte acceptable. Blood pressure relatively low. Review of Systems Review of Systems: detailed review of system was otherwise unremarkable except mentioned above. Physical Exam Constitutional: WD/WN, vitals as above no acute distress Eyes: + anicteric sclerae Neck: normal visual inspection Respiratory: no respiratory distress Auscultation: lungs clear to auscultation bilaterally Cardiovascular: Rate/Rhythm: regular rate and regular rhythm Heart Sounds: normal S1 and normal S2 Extremities: + vascular access device ( Right IJ tunneled dialysis catheter) and + AV fistula (AV fistula with thrill and bruit); no edema Skin: normal turgor; no rashes Neurologic: no focal motor deficits and not confused Psychiatric: Orientation: alert and oriented x 3 Results & Data Vital Signs (Past 12 Hours) Vital Signs Temp Pulse Pulse Resp BP Pulse Ox O2 Del Method 09/19/22 10:47 36.5 C 65 20 105/63 95 Room Air 09/19/22 07:39 Room Air 09/19/22 07:15 67 09/19/22 07:00 36.6 C 73 16 106/64 95 Room Air 09/19/22 04:00 36.5 C 72 20 108/67 95 Room Air PG Care Time/CCT Total # of Minutes Spent Total Time Spent with Patient: Total time spent is greater than 50% in coordination of care (as documented) at patient's floor/unit and/or counseling patient: Coding Level of Care Code 42778 SUB INP/OBS CARE 3/50MIN Diagnoses End stage renal disease N18.6
[2022-09-20 06:52] LABS: Hematocrit (blood only) 36.5 % (37.0-47.0); Hemoglobin 11.5 g/dl (12.0-16.0); Mean Corpuscular Hgb Conc 31.5 g/dL (32.0-36.0); Mean Platelet Volume 11.4 fL (9.4-12.4); Platelet Count 166 K/uL (130-400); RDW Coefficient of Variation 17.5 % (11.5-14.5); RDW Standard Deviation 55.8 fL (36.4-46.3); White Blood Count 4.65 K/ul (4.8-10.8)
[2022-09-20 06:59] LABS: Calcium 9.7 mg/dl (8.6-10.3); Creatinine Clr Calc Pharmacy 15.8 ml/min; Est GFR (Non-African American) 10.3 ml/min; Potassium 4.5 mmol/L (3.5-5.1)
[2022-09-20] MEDS: CLOPIDOGREL BISULFATE 75 MG TAB PO SCH (08:13)
[2022-09-20] MEDS: PANTOprazole 40 MG TAB PO SCH (08:13)
[2022-09-20] MEDS: APIXABAN 2.5 MG TAB PO SCH ×2 (08:13→20:59)
[2022-09-20] MEDS: carvediloL 25 MG TAB PO SCH ×2 (08:14→20:59)
[2022-09-20] MEDS: amLODIPine BESYLATE 5 MG TAB PO SCH (08:14)
[2022-09-20] MEDS: CHOLECALCIFEROL 5,000 UNITS 125 MCG TAB PO SCH (08:14)
[2022-09-20] MEDS: INSULIN ASPART PER UNIT CHARGE SC SCH ×4 (08:14→21:01)
[2022-09-20] MEDS: LANTUS PER UNIT CHARGE SQ SCH ×2 (08:15→21:01)
[2022-09-20] MEDS: NEPHROCAPS PO SCH (11:46)
--- NOTE | 2022-09-20 12:00 | Hospitalist Progress Note ---
Date of Service September 20, 2022 Assessment & Plan (1) Hypervolemia associated with renal insufficiency: Plan: Patient missed a couple of her HD sessions due to diarrhea Presented with signs of fluid overload Nephrology on consult, plan is to continue HD Monitor fluid status (2) Diabetes type 2, uncontrolled: Plan: Unsure about home insulin regimen Given unclear insulin regimen need will use Lantus 0-10 units depending on glucose < or > 120 Novolog carb ratio and correction factor based off previous hospitalization: --Goal BSG Range: Low 110 mg/dL, High 140mg/dL --Correction Factor: 20 mg/dL/unit --Carbohydrate ratio = 7 g/unit --BSGs ACHS if eating, q6h if npo - HbA1c 10.9 -Will continue glargine 20 units BID -Consult extract mixer -Blood glucose now under better control (3) Physical deconditioning: Plan: Patient walk with a walker, but said she has been getting weaker and weaker Continue PT Will benefit from rehab (4) Superficial thrombosis of left lower extremity: Plan: On apixaban for 1 month started August 28. To be re-evaluated by her validation scientist at that time. (5) Nausea vomiting and diarrhea: Plan: Etiology of diarrhea is uncertain C diff negative, stool biofire negative for infectiuous organisms Encourage oral intake (6) Hypertension: Plan: Continue carvedilol (lowered hold parameters) and amlodipine (7) ESRD (end stage renal disease): Plan: Continue HD (8) GERD (gastroesophageal reflux disease): (9) Chronic acquired lymphedema: Plan: with some open wound continue wound care Plan VTE Prophylaxis - Eliquis Diet - dialysis renal, T2DM Disposition - continue hospitalization, hopefully d/c in the next 48 hrs, family want SNF Admission and Anticipated Discharge Date Admission Date: September 16, 2022 Subjective patient seen and examined, by the bed side, no new complaints Review of Systems Review of Systems: All systems reviewed are negative, apart from the ones contained in the history. Physical Exam Physical Exam: The patient is awake, alert and oriented 3, well developed and well nourished, normocephalic and atraumatic, lying in bed and in no acute distress. HEENT--PERRL, EOMI, mucous membranes and oropharynx mildly dry Neck--supple. No JVD. No bruits. Thyroid normal, trachea midline, no adenopathy. Heart--normal S1 and S2. No murmurs, rubs or gallops. Lungs--clear bilaterally, no respiratory distress, no accessory muscle use. Abdomen--normal bowel sounds and soft. Mild epigastric and left sided abdominal pain Extremities--trace leg edema, bilateral lower extremity wounds Dermatologic--normal skin turgor, normal color, no abnormal lymph nodes, no rash. Neurologic--cranial nerves II through XII grossly intact. Rheumatologic--normal range of motion. Psychiatric--normal affect. Results & Data Results & Data Vital Signs (Past 12 Hours) Vital Signs Temp Pulse Pulse Resp BP Pulse Ox O2 Del Method 09/20/22 08:30 67 09/20/22 07:44 Room Air 09/20/22 07:17 97.9 F 66 18 113/72 95 Room Air 09/20/22 04:39 97.7 F 69 18 100/68 96 Room Air PG Care Time/CCT Total # of Minutes Spent Total Time Spent with Patient: Total time spent is greater than 50% in coordination of care (as documented) at patient's floor/unit and/or counseling patient: Coding Level of Care Code 72834 SUB INP/OBS CARE 2/35MIN Diagnoses Hypervolemia associated with renal insufficiency E87.70; N28.9 Diabetes type 2, uncontrolled E11.65 Physical deconditioning R53.81 Superficial thrombosis of left lower extremity I82.812 Nausea vomiting and diarrhea R11.2; R19.7 Hypertension I10 Hypertension type: essential hypertension ESRD (end stage renal disease) N18.6 GERD (gastroesophageal reflux disease) K21.9 Chronic acquired lymphedema I89.0 Time Spent (min) 35 (6) Hypertension Hypertension type: essential hypertension Qualified Code(s): I10 - Essential (primary) hypertension
--- NOTE | 2022-09-20 12:43 | Nephrology Progress Note ---
Date of Service September 20, 2022 Assessment & Plan (1) End stage renal disease: Plan Mrs. Reyna is a 67 year old female with end-stage renal disease secondary to diabetic nephropathy, on hemodialysis Wednesday, Wednesday, Wednesday at [facility] dialysis, admitted to the hospital with volume overload after missing cyst session last week due to nausea, vomiting and diarrhea. She presented to ER profoundly weak and more than 9 kg above her estimated dry weight of kg. Add back to back dialysis with significant improvement in her volume status although she is still above her dry weight but clinically looks much better. She dialysis via IJ tunneled dialysis catheter although she has functioning AV fistula which is not being used because of history of prolonged bleeding. Over last few months she has been clinically declining with failure to thrive and now she is open to assisted care placement due to her functional decline. Overall clinically staying stable, blood pressure acceptable, weight stable with ongoing diarrhea. -- hemodialysis tomorrow as her regular schedule, UF as tolerated. -- Continue on renal vitamin, check phosphate tomorrow if phosphate high will start on binder with meals. -- dose medications for EGFR less than 10 --CATHIE for Hb <10 -- waiting on assisted care facility placement will follow Admission and Anticipated Discharge Date Admission Date: September 16, 2022 Giovnani Mathis was seen and evaluated this morning. She was lying in bed comfortable, denied any shortness of breath. continues to have ongoing diarrhea had more than 10 bowel movement over last 24 hours, weight remained relatively stable. Blood pressure relatively low. Review of Systems Review of Systems: detailed review of system was otherwise unremarkable except mentioned above. Physical Exam Constitutional: WD/WN, vitals as above no acute distress Eyes: + anicteric sclerae Neck: normal visual inspection Respiratory: no respiratory distress Auscultation: lungs clear to auscultation bilaterally Cardiovascular: Rate/Rhythm: regular rate and regular rhythm Heart Sounds: normal S1 and normal S2 Extremities: + vascular access device ( Right IJ tunneled dialysis catheter) and + AV fistula (AV fistula with thrill and bruit); no edema Skin: normal turgor; no rashes Neurologic: no focal motor deficits and not confused Psychiatric: Orientation: alert and oriented x 3 Results & Data Vital Signs (Past 12 Hours) Vital Signs Temp Pulse Pulse Resp BP Pulse Ox O2 Del Method 09/20/22 08:30 67 09/20/22 07:44 Room Air 09/20/22 07:17 36.6 C 66 18 113/72 95 Room Air 09/20/22 04:39 36.5 C 69 18 100/68 96 Room Air PG Care Time/CCT Total # of Minutes Spent Total Time Spent with Patient: Total time spent is greater than 50% in coordination of care (as documented) at patient's floor/unit and/or counseling patient: Coding Level of Care Code 19134 SUB INP/OBS CARE 2/35MIN Diagnoses End stage renal disease N18.6
[2022-09-21] MEDS: APIXABAN 2.5 MG TAB PO SCH ×2 (07:38→21:47)
[2022-09-21] MEDS: CHOLECALCIFEROL 5,000 UNITS 125 MCG TAB PO SCH (07:38)
[2022-09-21] MEDS: NEPHROCAPS PO SCH (07:38)
[2022-09-21] MEDS: CINACALCET HCL 30 MG TAB PO SCH (07:39)
[2022-09-21] MEDS: PANTOprazole 40 MG TAB PO SCH (07:39)
[2022-09-21] MEDS: CLOPIDOGREL BISULFATE 75 MG TAB PO SCH (07:39)
[2022-09-21] MEDS ORDERED: ONDANSETRON INJ 2 MG/ML 2 ML VIAL IV PRN (07:44)
[2022-09-21] MEDS: INSULIN ASPART PER UNIT CHARGE SC SCH ×4 (07:48→21:47)
[2022-09-21 08:06] LABS: Hematocrit (blood only) 36.1 % (37.0-47.0); Hemoglobin 11.3 g/dl (12.0-16.0); Mean Corpuscular Hemoglobin 27.8 pg (25.0-34.0); Mean Corpuscular Hgb Conc 31.3 g/dL (32.0-36.0); Mean Corpuscular Volume 88.7 fL (80.0-100.0); Mean Platelet Volume 11.6 fL (9.4-12.4); Platelet Count 164 K/uL (130-400); RDW Coefficient of Variation 17.4 % (11.5-14.5); RDW Standard Deviation 55.8 fL (36.4-46.3); Red Blood Count 4.07 M/uL (4.20-5.40); White Blood Count 4.92 K/ul (4.8-10.8)
[2022-09-21 08:26] LABS: Albumin Level 3.1 gm/dl (3.4-5.0); BUN Creatinine Ratio 13.2 (10-20); Calcium 9.7 mg/dl (8.6-10.3); Creatinine Clr Calc Pharmacy 11.9 ml/min; Est GFR (African American) 8.6 ml/min; Est GFR (Non-African American) 7.4 ml/min; Phosphorus 6.1 mg/dl (2.5-4.9); Potassium 5.1 mmol/L (3.5-5.1)
[2022-09-21] MEDS: LANTUS PER UNIT CHARGE SQ SCH ×2 (09:29→22:05)
--- NOTE | 2022-09-21 10:38 | Nephrology Progress Note ---
Date of Service September 21, 2022 Assessment & Plan (1) End stage renal disease: Plan Mrs. Reyna is a 67 year old female with end-stage renal disease secondary to diabetic nephropathy, on hemodialysis Wednesday, Wednesday, Wednesday at [facility] dialysis, admitted to the hospital with volume overload after missing cyst session last week due to nausea, vomiting and diarrhea. She presented to ER profoundly weak and more than 9 kg above her estimated dry weight of kg. Add back to back dialysis with significant improvement in her volume status although she is still above her dry weight but clinically looks much better. She dialysis via IJ tunneled dialysis catheter although she has functioning AV fistula which is not being used because of history of prolonged bleeding. Over last few months she has been clinically declining with failure to thrive and now she is open to assisted care placement due to her functional decline. Overall clinically staying stable, blood pressure acceptable, weight stable with ongoing diarrhea. -- hemodialysis today as her regular schedule, tolerating UF. -- Continue on renal vitamin, start Sevelamer TIDM as phosphate binder with meals. -- dose medications for EGFR less than 10 --CATHIE for Hb <10 -- waiting on assisted care facility placement will follow Admission and Anticipated Discharge Date Admission Date: September 16, 2022 Giovanni Mathis was seen and evaluated this morning well she is getting dialysis. Has been tolerating dialysis well, resting, denied any leg cramp, shortness of breath or chest pain. Tolerating ultrafiltration. Blood pressure relatively low. Review of Systems Review of Systems: detailed review of system was otherwise unremarkable except mentioned above. Physical Exam Constitutional: WD/WN, vitals as above no acute distress Eyes: + anicteric sclerae Neck: normal visual inspection Respiratory: no respiratory distress Auscultation: lungs clear to auscultation bilaterally Cardiovascular: Rate/Rhythm: regular rate and regular rhythm Heart Sounds: normal S1 and normal S2 Extremities: + vascular access device ( Right IJ tunneled dialysis catheter) and + AV fistula (AV fistula with thrill and bruit); no edema Skin: normal turgor; no rashes Neurologic: no focal motor deficits and not confused Psychiatric: Orientation: alert and oriented x 3 Results & Data Vital Signs (Past 12 Hours) Vital Signs Temp Pulse Pulse Pulse Resp BP BP 09/21/22 10:00 65 113/67 09/21/22 09:30 66 112/67 09/21/22 09:00 65 112/60 09/21/22 08:37 68 107/62 09/21/22 08:32 36.6 C 67 09/21/22 08:55 09/21/22 08:39 65 09/21/22 08:08 36.4 C L 64 18 121/65 09/20/22 23:53 36.5 C 71 20 110/65 Pulse Ox O2 Del Method 09/21/22 10:00 09/21/22 09:30 09/21/22 09:00 09/21/22 08:37 09/21/22 08:32 09/21/22 08:55 Room Air 09/21/22 08:39 09/21/22 08:08 94 Room Air 09/20/22 23:53 96 Room Air PG Care Time/CCT Total # of Minutes Spent Total Time Spent with Patient: Total time spent is greater than 50% in coordination of care (as documented) at patient's floor/unit and/or counseling patient: Coding Level of Care Code 51216 SUB INP/OBS CARE 2/35MIN Diagnoses End stage renal disease N18.6
--- NOTE | 2022-09-21 12:39 | Hospitalist Progress Note ---
Date of Service September 21, 2022 Assessment & Plan (1) Hypervolemia associated with renal insufficiency: Plan: Presents after she missed a couple of her HD sessions due to diarrhea Presented with signs of fluid overload Nephrology on consult, plan is to continue HD Monitor fluid status, which has improved following UF (2) Diabetes type 2, uncontrolled: Plan: Patient is Unsure about home insulin regimen Given unclear insulin regimen need will use Lantus 0-10 units depending on glucose < or > 120 Novolog carb ratio and correction factor based off previous hospitalization: --Goal BSG Range: Low 110 mg/dL, High 140mg/dL --Correction Factor: 20 mg/dL/unit --Carbohydrate ratio = 7 g/unit --BSGs ACHS if eating, q6h if npo - HbA1c 10.9 -Will continue glargine 20 units BID -Consult adult educator -Blood glucose now under better control (3) Physical deconditioning: Plan: Patient walk with a walker, but said she has been getting weaker and weaker Continue PT Will benefit from rehab (4) Superficial thrombosis of left lower extremity: Plan: On apixaban for 1 month started August 28. To be re-evaluated by her muff winder at that time. (5) Nausea vomiting and diarrhea: Plan: Etiology of diarrhea is uncertain, now resolving C diff negative, stool biofire negative for infectiuous organisms Encourage oral intake (6) Hypertension: Plan: Continue carvedilol (lowered hold parameters) and amlodipine (7) ESRD (end stage renal disease): Plan: Continue HD (8) GERD (gastroesophageal reflux disease): (9) Chronic acquired lymphedema: Plan: with some open wound continue wound care Plan VTE Prophylaxis - Eliquis Diet - dialysis renal, T2DM Disposition - continue hospitalization, hopefully d/c in the next 48 hrs, family want SNF Admission and Anticipated Discharge Date Admission Date: September 16, 2022 Subjective patient seen and examined, will get HD today Review of Systems Review of Systems: All systems reviewed are negative, apart from the ones contained in the history. Physical Exam Physical Exam: The patient is awake, alert and oriented 3, well developed and well nourished, normocephalic and atraumatic, lying in bed and in no acute distress. HEENT--PERRL, EOMI, mucous membranes and oropharynx mildly dry Neck--supple. No JVD. No bruits. Thyroid normal, trachea midline, no adenopathy. Heart--normal S1 and S2. No murmurs, rubs or gallops. Lungs--clear bilaterally, no respiratory distress, no accessory muscle use. Abdomen--normal bowel sounds and soft. Mild epigastric and left sided abdominal pain Extremities--trace leg edema, bilateral lower extremity wounds Dermatologic--normal skin turgor, normal color, no abnormal lymph nodes, no rash. Neurologic--cranial nerves II through XII grossly intact. Rheumatologic--normal range of motion. Psychiatric--normal affect. Results & Data Results & Data Vital Signs (Past 12 Hours) Vital Signs Temp Pulse Pulse Pulse Resp BP BP 09/21/22 12:00 65 122/68 09/21/22 11:30 66 115/66 09/21/22 11:00 65 109/63 09/21/22 10:30 66 108/55 L 09/21/22 10:00 65 113/67 09/21/22 09:30 66 112/67 09/21/22 09:00 65 112/60 09/21/22 08:37 68 107/62 09/21/22 08:32 97.9 F 67 09/21/22 08:55 09/21/22 08:39 65 09/21/22 08:08 97.5 F L 64 18 121/65 Pulse Ox O2 Del Method 09/21/22 12:00 09/21/22 11:30 09/21/22 11:00 09/21/22 10:30 09/21/22 10:00 09/21/22 09:30 09/21/22 09:00 09/21/22 08:37 09/21/22 08:32 09/21/22 08:55 Room Air 09/21/22 08:39 09/21/22 08:08 94 Room Air PG Care Time/CCT Total # of Minutes Spent Total Time Spent with Patient: Total time spent is greater than 50% in coordination of care (as documented) at patient's floor/unit and/or counseling patient: Coding Level of Care Code 85624 SUB INP/OBS CARE 2/35MIN Diagnoses Hypervolemia associated with renal insufficiency E87.70; N28.9 Diabetes type 2, uncontrolled E11.65 Physical deconditioning R53.81 Superficial thrombosis of left lower extremity I82.812 Nausea vomiting and diarrhea R11.2; R19.7 Hypertension I10 Hypertension type: essential hypertension ESRD (end stage renal disease) N18.6 GERD (gastroesophageal reflux disease) K21.9 Chronic acquired lymphedema I89.0 Time Spent (min) 35 (6) Hypertension Hypertension type: essential hypertension Qualified Code(s): I10 - Essential (primary) hypertension
[2022-09-21] MEDS: SEVELAMER HCL 800 MG TABLET PO SCH ×2 (12:43→17:21)
[2022-09-21] MEDS: amLODIPine BESYLATE 5 MG TAB PO SCH (12:44)
[2022-09-21] MEDS: carvediloL 25 MG TAB PO SCH ×2 (12:46→21:47)
[2022-09-22 07:47] LABS: Hematocrit (blood only) 35.4 % (37.0-47.0); Mean Corpuscular Hemoglobin 27.7 pg (25.0-34.0); Mean Corpuscular Hgb Conc 31.1 g/dL (32.0-36.0); Mean Corpuscular Volume 89.2 fL (80.0-100.0); Mean Platelet Volume 11.5 fL (9.4-12.4); Platelet Count 154 K/uL (130-400); RDW Coefficient of Variation 17.5 % (11.5-14.5); RDW Standard Deviation 56.4 fL (36.4-46.3); Red Blood Count 3.97 M/uL (4.20-5.40); White Blood Count 5.03 K/ul (4.8-10.8)
[2022-09-22] MEDS: carvediloL 25 MG TAB PO SCH ×2 (08:58→22:00)
[2022-09-22] MEDS: NEPHROCAPS PO SCH (08:58)
[2022-09-22] MEDS: APIXABAN 2.5 MG TAB PO SCH ×2 (08:58→21:59)
[2022-09-22] MEDS: PANTOprazole 40 MG TAB PO SCH (08:58)
[2022-09-22] MEDS: CHOLECALCIFEROL 5,000 UNITS 125 MCG TAB PO SCH (08:58)
[2022-09-22] MEDS: SEVELAMER HCL 800 MG TABLET PO SCH ×3 (08:58→17:26)
[2022-09-22] MEDS: CLOPIDOGREL BISULFATE 75 MG TAB PO SCH (08:59)
[2022-09-22] MEDS: amLODIPine BESYLATE 5 MG TAB PO SCH (08:59)
[2022-09-22] MEDS: INSULIN ASPART PER UNIT CHARGE SC SCH ×4 (09:00→22:00)
[2022-09-22] MEDS: LANTUS PER UNIT CHARGE SQ SCH ×2 (09:00→22:10)
--- NOTE | 2022-09-22 10:06 | Hospitalist Progress Note ---
Date of Service September 22, 2022 Assessment & Plan (1) Hypervolemia associated with renal insufficiency: Plan: Presents after she missed a couple of her HD sessions due to diarrhea Presented with signs of fluid overload Nephrology on consult, plan is to continue HD Monitor fluid status, which has improved following UF (2) Nausea vomiting and diarrhea: Plan: Nausea and vomiting resolved, but diarrhea persists Etiology of diarrhea is uncertain, rectal tube in situ C diff negative, stool biofire negative for infectious organisms Encourage oral intake (3) Diabetes type 2, uncontrolled: Plan: Patient is Unsure about her home insulin regimen However, has done fairly well here in the hospital on Lantus 20mg BID Novolog carb ratio and correction factor based off previous hospitalization: --Goal BSG Range: Low 110 mg/dL, High 140mg/dL --Correction Factor: 20 mg/dL/unit --Carbohydrate ratio = 7 g/unit --BSGs ACHS if eating, q6h if npo - HbA1c 10.9 -Will continue glargine 20 units BID -Consult logging equipment operator -Blood glucose now under better control (4) Physical deconditioning: Plan: Patient walks with a walker, but said she has been getting weaker and weaker Continue PT Will benefit from SNF (5) Superficial thrombosis of left lower extremity: Plan: On apixaban for 1 month started August 28. To be re-evaluated by her laborer poultry hatchery at that time. (6) Hypertension: Plan: Continue carvedilol (lowered hold parameters) and amlodipine (7) ESRD (end stage renal disease): Plan: Continue HD (8) GERD (gastroesophageal reflux disease): (9) Chronic acquired lymphedema: Plan: with some open wound continue wound care Plan VTE Prophylaxis - Eliquis Diet - dialysis renal, T2DM Disposition - continue hospitalization, hopefully d/c to SNF when accepted Admission and Anticipated Discharge Date Admission Date: September 16, 2022 Subjective patient seen and examined, still having diarrhea, rectal tube in situ Review of Systems Review of Systems: All systems reviewed are negative, apart from the ones contained in the history. Physical Exam Physical Exam: The patient is awake, alert and oriented 3, well developed and well nourished, normocephalic and atraumatic, lying in bed and in no acute distress. HEENT--PERRL, EOMI, mucous membranes and oropharynx mildly dry Neck--supple. No JVD. No bruits. Thyroid normal, trachea midline, no adenopathy. Heart--normal S1 and S2. No murmurs, rubs or gallops. Lungs--clear bilaterally, no respiratory distress, no accessory muscle use. Abdomen--normal bowel sounds and soft. Mild epigastric and left sided abdominal pain Extremities--trace leg edema, bilateral lower extremity wounds Dermatologic--normal skin turgor, normal color, no abnormal lymph nodes, no rash. Neurologic--cranial nerves II through XII grossly intact. Rheumatologic--normal range of motion. Psychiatric--normal affect. Results & Data Results & Data Vital Signs (Past 12 Hours) Vital Signs Temp Pulse Pulse Resp BP Pulse Ox O2 Del Method 09/22/22 08:58 78 107/69 09/22/22 07:39 97.9 F 68 18 106/69 94 Room Air 09/22/22 04:00 97.7 F 67 18 111/70 95 Room Air 09/22/22 00:16 71 09/21/22 23:26 98.4 F 71 18 106/66 94 Room Air 09/21/22 22:08 Room Air PG Care Time/CCT Total # of Minutes Spent Total Time Spent with Patient: Total time spent is greater than 50% in coordination of care (as documented) at patient's floor/unit and/or counseling patient: Coding Level of Care Code 49440 SUB INP/OBS CARE 2/35MIN Diagnoses Hypervolemia associated with renal insufficiency E87.70; N28.9 Nausea vomiting and diarrhea R11.2; R19.7 Diabetes type 2, uncontrolled E11.65 Physical deconditioning R53.81 Superficial thrombosis of left lower extremity I82.812 Hypertension I10 Hypertension type: essential hypertension ESRD (end stage renal disease) N18.6 GERD (gastroesophageal reflux disease) K21.9 Chronic acquired lymphedema I89.0 Time Spent (min) 35 (6) Hypertension Hypertension type: essential hypertension Qualified Code(s): I10 - Essential (primary) hypertension
[2022-09-22] MEDS ORDERED: LOPERAMIDE HCL 2 MG CAP PO PRN (10:08)
--- NOTE | 2022-09-22 15:48 | Nephrology Progress Note ---
Date of Service September 22, 2022 Assessment & Plan (1) End stage renal disease: Plan Mrs. Reyna is a 67 year old female with end-stage renal disease secondary to diabetic nephropathy, on hemodialysis Wednesday, Wednesday, Wednesday at [facility] dialysis, admitted to the hospital with volume overload after missing cyst session last week due to nausea, vomiting and diarrhea. She presented to ER profoundly weak and more than 9 kg above her estimated dry weight of kg. Add back to back dialysis with significant improvement in her volume status although she is still above her dry weight but clinically looks much better. She dialysis via IJ tunneled dialysis catheter although she has functioning AV fistula which is not being used because of history of prolonged bleeding. Over last few months she has been clinically declining with failure to thrive and now she is open to assisted care placement due to her functional decline. Overall clinically staying stable, blood pressure acceptable, weight stable with ongoing diarrhea. -- recommend considering Imodium to help with ongoing diarrhea as infectious etiology was unremarkable. -- hemodialysis tomorrow as her regular schedule. -- Continue on renal vitamin, start Sevelamer TIDM as phosphate binder with meals. -- dose medications for EGFR less than 10 --CATHIE for Hb <10 -- waiting on assisted care facility placement will follow Admission and Anticipated Discharge Date Admission Date: September 16, 2022 Giovanni Mathis was seen and evaluated this morning her at bedside. she looked comfortable, resting, denied any specific symptoms but her had many concerns. He was mainly concerned with her ongoing diarrhea without any improvement and inability to participate in physical therapy with ongoing diarrhea and rectal tube. Workup for diarrhea so far unremarkable and volume and frequency of diarrhea seems to be slowly improving. Review of Systems Review of Systems: detailed review of system was otherwise unremarkable except mentioned above. Physical Exam Constitutional: WD/WN, vitals as above + ill appearing; no acute distress Eyes: + anicteric sclerae Neck: normal visual inspection Respiratory: no respiratory distress Auscultation: lungs clear to auscul tation bilaterally Cardiovascular: Rate/Rhythm: regular rate and regular rhythm Heart Sounds: normal S1 and normal S2 Extremities: + vascular access device ( Right IJ tunneled dialysis catheter) and + AV fistula (AV fistula with thrill and bruit); no edema Skin: normal turgor; no rashes Neurologic: no focal motor deficits and not confused Psychiatric: Orientation: alert and oriented x 3 Results & Data Vital Signs (Past 12 Hours) Vital Signs Temp Pulse Pulse Resp BP Pulse Ox O2 Del Method 09/22/22 14:57 36.8 C 64 18 106/67 95 Room Air 09/22/22 10:59 36.5 C 78 18 118/70 95 Room Air 09/22/22 08:58 78 107/69 09/22/22 07:39 36.6 C 68 18 106/69 94 Room Air 09/22/22 04:00 36.5 C 67 18 111/70 95 Room Air PG Care Time/CCT Total # of Minutes Spent Total Time Spent with Patient: Total time spent is greater than 50% in coordination of care (as documented) at patient's floor/unit and/or counseling patient: Coding Level of Care Code 68670 SUB INP/OBS CARE 2/35MIN Diagnoses End stage renal disease N18.6
[2022-09-22] MEDS: CARBOHYDRATES FOR HYPOGLYCEMIA PO PRN ×2 (16:35→16:50)
[2022-09-23 07:13] LABS: Hematocrit (blood only) 34.9 % (37.0-47.0); Mean Corpuscular Hemoglobin 27.7 pg (25.0-34.0); Mean Corpuscular Hgb Conc 31.5 g/dL (32.0-36.0); Mean Corpuscular Volume 87.9 fL (80.0-100.0); Mean Platelet Volume 11.4 fL (9.4-12.4); Platelet Count 153 K/uL (130-400); RDW Coefficient of Variation 17.3 % (11.5-14.5); RDW Standard Deviation 55.7 fL (36.4-46.3); Red Blood Count 3.97 M/uL (4.20-5.40); White Blood Count 4.82 K/ul (4.8-10.8)
[2022-09-23 07:32] LABS: BUN Creatinine Ratio 12.7 (10-20); Calcium 9.8 mg/dl (8.6-10.3); Creatinine Clr Calc Pharmacy 11.8 ml/min; Est GFR (African American) 8.6 ml/min; Est GFR (Non-African American) 7.4 ml/min; Potassium 5.1 mmol/L (3.5-5.1)
[2022-09-23] MEDS: carvediloL 25 MG TAB PO SCH ×2 (08:23→20:17)
[2022-09-23] MEDS: SEVELAMER HCL 800 MG TABLET PO SCH ×3 (08:23→17:37)
[2022-09-23] MEDS: CHOLECALCIFEROL 5,000 UNITS 125 MCG TAB PO SCH (08:24)
[2022-09-23] MEDS: NEPHROCAPS PO SCH (08:24)
[2022-09-23] MEDS: CLOPIDOGREL BISULFATE 75 MG TAB PO SCH (08:24)
[2022-09-23] MEDS: PANTOprazole 40 MG TAB PO SCH (08:25)
[2022-09-23] MEDS: APIXABAN 2.5 MG TAB PO SCH ×2 (08:25→20:18)
[2022-09-23] MEDS: CINACALCET HCL 30 MG TAB PO SCH (08:25)
[2022-09-23] MEDS: amLODIPine BESYLATE 5 MG TAB PO SCH (08:27)
[2022-09-23] MEDS: INSULIN ASPART PER UNIT CHARGE SC SCH ×4 (08:29→20:07)
[2022-09-23] MEDS: LANTUS PER UNIT CHARGE SQ SCH ×2 (08:29→20:08)
--- NOTE | 2022-09-23 12:16 | Nephrology Progress Note ---
Date of Service September 23, 2022 Assessment & Plan (1) End stage renal disease: Plan Mrs. Reyna is a 67 year old female with end-stage renal disease secondary to diabetic nephropathy, on hemodialysis Wednesday, Wednesday, Wednesday at [facility] dialysis, admitted to the hospital with volume overload after missing cyst session last week due to nausea, vomiting and diarrhea. She presented to ER profoundly weak and more than 9 kg above her estimated dry weight of kg. Add back to back dialysis with significant improvement in her volume status although she is still above her dry weight but clinically looks much better. She dialysis via IJ tunneled dialysis catheter although she has functioning AV fistula which is not being used because of history of prolonged bleeding. Over last few months she has been clinically declining with failure to thrive and now she is open to assisted care placement due to her functional decline. Overall clinically staying stable, blood pressure acceptable, weight stable with ongoing diarrhea. --suggest increasing dose of imodium to help with ongoing diarrhea as no improvement. -- hemodialysis as her regular schedule. -- Continue on renal vitamin, Sevelamer TIDM as phosphate binder with meals. -- dose medications for EGFR less than 10 --CATHIE for Hb <10 -- waiting on assisted care facility placement will follow Admission and Anticipated Discharge Date Admission Date: September 16, 2022 Giovanni Mathis was seen and evaluated this morning during dialysis, she was tolerating dialysis well, she looked comfortable, resting, denied any specific symptoms however, she continues to have ongoing diarrhea. Review of Systems Review of Systems: detailed review of system was otherwise unremarkable except mentioned above. Physical Exam Constitutional: WD/WN, vitals as above + ill appearing; no acute distress Eyes: + anicteric sclerae Neck: normal visual inspection Respiratory: no respiratory distress Auscultation: lungs clear to auscultation bilaterally Cardiovascular: Rate/Rhythm: regular rate and regular rhythm Heart Sounds: normal S1 and normal S2 Extremities: + vascular access device ( Right IJ tunneled dialysis catheter) and + AV fistula (AV fistula with thrill and bruit); no edema Skin: normal turgor; no rashes Neurologic: no focal motor deficits and not confused Psychiatric: Orientation: alert and oriented x 3 Results & Data Vital Signs (Past 12 Hours) Vital Signs Temp Pulse Pulse Pulse Resp BP BP 09/23/22 12:00 73 112/60 09/23/22 11:30 70 119/66 09/23/22 11:00 69 114/62 09/23/22 07:30 76 09/23/22 10:30 69 120/67 09/23/22 10:00 68 126/64 09/23/22 09:30 67 114/67 09/23/22 09:00 67 110/64 09/23/22 08:55 70 103/60 09/23/22 08:50 36.8 C 68 103/66 09/23/22 09:02 36.8 C 09/23/22 08:00 36.8 C 69 20 96/61 L 09/23/22 03:29 36.6 C 75 18 104/66 09/23/22 03:08 36.8 C 73 18 97/59 L Pulse Ox O2 Del Method 09/23/22 12:00 09/23/22 11:30 09/23/22 11:00 09/23/22 07:30 09/23/22 10:30 09/23/22 10:00 09/23/22 09:30 09/23/22 09:00 09/23/22 08:55 09/23/22 08:50 09/23/22 09:02 09/23/22 08:00 94 Room Air 09/23/22 03:29 93 Room Air 09/23/22 03:08 91 Room Air PG Care Time/CCT Total # of Minutes Spent Total Time Spent with Patient: Total time spent is greater than 50% in coordination of care (as documented) at patient's floor/unit and/or counseling patient: Coding Level of Care Code 52335 SUB INP/OBS CARE 2/35MIN Diagnoses End stage renal disease N18.6
[2022-09-23] MEDS: LOPERAMIDE HCL 2 MG CAP PO SCH ×3 (13:43→22:38)
--- NOTE | 2022-09-23 15:52 | Hospitalist Progress Note ---
Date of Service September 23, 2022 Assessment & Plan (1) Hypervolemia associated with renal insufficiency: Plan: Presents after she missed a couple of her HD sessions due to diarrhea Presented with signs of fluid overload Nephrology on consult, plan is to continue HD after receiving an extra session Monitor fluid status, which has improved following UF follow renal panel (2) Nausea vomiting and diarrhea: Plan: Nausea and vomiting resolved, but diarrhea persists Etiology of diarrhea is uncertain, rectal tube in situ Stool PCR and C. doff negative Ongoing x 1 week perhaps from gut edema? start Imodium and make scheduled q6h monitor (3) Diabetes type 2, uncontrolled: Plan: Patient is Unsure about her home insulin regimen now with some lows-lower Lantus and Novolog appreciate Pharmacy assistance (4) Physical deconditioning: Plan: Patient walks with a walker, but said she has been getting weaker and weaker Continue PT Will benefit from SNF (5) Superficial thrombosis of left lower extremity: Plan: On apixaban for 1 month started August 28. To be re-evaluated by her animal care supervisor at that time. (6) Hypertension: Plan: Continue carvedilol (lowered hold parameters) and amlodipine but held this for today (7) ESRD (end stage renal disease): Plan: Continue HD continue sevelamer, Nephrocaps, cinacalcet (8) GERD (gastroesophageal reflux disease): Plan: continue PPI (9) Chronic acquired lymphedema: Plan: with some open wounds continue wound care Plan VTE Prophylaxis - Eliquis Diet - dialysis renal, T2DM Disposition - continue hospitalization, plan to d/c to SNF in 1-2 days after diarrhea improved and rectal tube removed Discussed care with Nephrology on 09/23 Admission and Anticipated Discharge Date Admission Date: September 16, 2022 Subjective Pt still having a lot of diarrhea and rectal tube in place. her bottom is very sore. No CP, SOB, other issues. Tele with NSR, PACs, rates 70s Physical Exam Constitutional: WD/WN, vitals as above Respiratory: normal respiratory effort, lungs clear to auscultation Cardiovascular: Rate/Rhythm: regular rate and regular rhythm Extremities: + edema (1+ pitting edema legs bilat) Gastrointestinal (Abdomen): normal bowel sounds, soft, nontender, no hepatosplenomegaly Results & Data Results & Data Vital Signs (Past 12 Hours) Vital Signs Temp Pulse Pulse Resp BP BP Pulse Ox 09/23/22 15:19 37.0 C 75 20 97/61 L 92 09/23/22 12:30 74 122/65 09/23/22 12:25 74 119/66 09/23/22 08:45 36.8 C 09/23/22 12:38 36.5 C 122/65 09/23/22 12:00 73 112/60 09/23/22 11:30 70 119/66 09/23/22 11:00 69 114/62 09/23/22 07:30 76 09/23/22 10:30 69 120/67 09/23/22 10:00 68 126/64 09/23/22 09:30 67 114/67 09/23/22 09:00 67 110/64 09/23/22 08:55 70 103/60 09/23/22 08:50 36.8 C 68 103/66 09/23/22 09:02 36.8 C 09/23/22 08:00 36.8 C 69 20 96/61 L 94 O2 Del Method 09/23/22 15:19 Room Air 09/23/22 12:30 09/23/22 12:25 09/23/22 08:45 09/23/22 12:38 09/23/22 12:00 09/23/22 11:30 09/23/22 11:00 09/23/22 07:30 09/23/22 10:30 09/23/22 10:00 09/23/22 09:30 09/23/22 09:00 09/23/22 08:55 09/23/22 08:50 09/23/22 09:02 09/23/22 08:00 Room Air Laboratory Results CBC, BMP reviewed PG Care Time/CCT Total # of Minutes Spent Total Time Spent with Patient: Total time spent is greater than 50% in coordination of care (as documented) at patient's floor/unit and/or counseling patient: Coding Level of Care Code 04664 SUB INP/OBS CARE 2/35MIN Diagnoses Hypervolemia associated with renal insufficiency E87.70; N28.9 Nausea vomiting and diarrhea R11.2; R19.7 Diabetes type 2, uncontrolled E11.65 Physical deconditioning R53.81 Superficial thrombosis of left lower extremity I82.812 Hypertension I10 Hypertension type: essential hypertension ESRD (end stage renal disease) N18.6 GERD (gastroesophageal reflux disease) K21.9 Chronic acquired lymphedema I89.0 (6) Hypertension Hypertension type: essential hypertension Qualified Code(s): I10 - Essential (primary) hypertension
[2022-09-23] MEDS: CARBOHYDRATES FOR HYPOGLYCEMIA PO PRN ×2 (16:40→17:00)
[2022-09-23] MEDS ORDERED: ONDANSETRON 4 MG OD TAB PO PRN (20:32)
[2022-09-24] MEDS: LOPERAMIDE HCL 2 MG CAP PO SCH ×4 (05:22→20:10)
[2022-09-24] MEDS: CARBOHYDRATES FOR HYPOGLYCEMIA PO PRN (07:15)
[2022-09-24 07:42] LABS: Albumin Level 3.1 gm/dl (3.4-5.0); BUN Creatinine Ratio 10.3 (10-20); Bilirubin,Total 0.4 mg/dl (0.2-1.0); Calcium 9.6 mg/dl (8.6-10.3); Creatinine Clr Calc Pharmacy 15.3 ml/min; Est GFR (African American) 11.9 ml/min; Est GFR (Non-African American) 10.3 ml/min; Magnesium 2.2 mg/dl (1.7-2.4); Potassium 4.8 mmol/L (3.5-5.1); Total Protein 6.1 gm/dl (6.0-8.3)
[2022-09-24] MEDS: SEVELAMER HCL 800 MG TABLET PO SCH ×3 (08:46→17:04)
[2022-09-24] MEDS: PANTOprazole 40 MG TAB PO SCH (08:47)
[2022-09-24] MEDS: CHOLECALCIFEROL 5,000 UNITS 125 MCG TAB PO SCH (08:47)
[2022-09-24] MEDS: CLOPIDOGREL BISULFATE 75 MG TAB PO SCH (08:47)
[2022-09-24] MEDS: carvediloL 25 MG TAB PO SCH ×3 (08:48→20:11)
[2022-09-24] MEDS: APIXABAN 2.5 MG TAB PO SCH ×3 (08:48→20:11)
[2022-09-24] MEDS: NEPHROCAPS PO SCH (08:48)
[2022-09-24] MEDS: INSULIN ASPART PER UNIT CHARGE SC SCH ×4 (08:50→20:17)
[2022-09-24] MEDS: amLODIPine BESYLATE 5 MG TAB PO SCH (08:51)
[2022-09-24] MEDS: LANTUS PER UNIT CHARGE SQ SCH (08:52)
--- NOTE | 2022-09-24 11:05 | Nephrology Progress Note ---
Date of Service September 24, 2022 Assessment & Plan (1) End stage renal disease: Plan Mrs. Reyna is a 67 year old female with end-stage renal disease secondary to diabetic nephropathy, on hemodialysis Wednesday, Wednesday, Wednesday at [facility] dialysis, admitted to the hospital with volume overload after missing cyst session last week due to nausea, vomiting and diarrhea. She presented to ER profoundly weak and more than 9 kg above her estimated dry weight of kg. Add back to back dialysis with significant improvement in her volume status although she is still above her dry weight but clinically looks much better. She dialysis via IJ tunneled dialysis catheter although she has functioning AV fistula which is not being used because of history of prolonged bleeding. Over last few months she has been clinically declining with failure to thrive and now she is open to assisted care placement due to her functional decline. Overall clinically staying stable, blood pressure acceptable, weight stable with ongoing diarrhea. -- plan for hemodialysis tomorrow as her regular schedule. -- Continue on renal vitamin, Sevelamer TIDM as phosphate binder with meals. -- dose medications for EGFR less than 10 --CATHIE for Hb <10 -- waiting [facility] to [facility] once diarrhea improve. will follow Admission and Anticipated Discharge Date Admission Date: September 16, 2022 Giovanni Mathis was not seen in person today, EMR records are reviewed, labs and vital sign are stable. Continues to have ongoing diarrhea but getting scheduled Imodium since yesterday. Had dialysis yesterday, had 3 L UF, currently blood pressure, electrolyte acceptable. Results & Data Vital Signs (Past 12 Hours) Vital Signs Temp Pulse Pulse Resp BP Pulse Ox O2 Del Method 09/24/22 07:51 36.9 C 71 20 108/68 97 Room Air 09/24/22 07:22 73 09/23/22 23:37 36.9 C 72 20 104/62 93 Room Air PG Care Time/CCT Total # of Minutes Spent Total Time Spent with Patient: Total time spent is greater than 50% in coordination of care (as documented) at patient's floor/unit and/or counseling patient: Coding Level of Care Code 29045 SUB INP/OBS CARE 25MIN Diagnoses End stage renal disease N18.6
--- NOTE | 2022-09-24 18:03 | Hospitalist Progress Note ---
Date of Service September 24, 2022 Assessment & Plan (1) Hypervolemia associated with renal insufficiency: Plan: Presents after she missed a couple of her HD sessions due to diarrhea Presented with signs of fluid overload Nephrology on consult, plan is to continue HD after receiving an extra session Monitor fluid status, which has improved following UF follow renal panel (2) Nausea vomiting and diarrhea: Plan: Nausea and vomiting resolved, but diarrhea persists Etiology of diarrhea is uncertain, rectal tube in situ Stool PCR and C. doff negative Ongoing x 1 week perhaps from gut edema? Starting to improve now since starting Imodium increased Imodium to q4h today monitor remove rectal tube (3) Diabetes type 2, uncontrolled: Plan: Patient is Unsure about her home insulin regimen now with some lows-lowered Lantus and Novolog and still low-decrease Lantus to 15 units qhs appreciate Pharmacy assistance (4) Physical deconditioning: Plan: Patient walks with a walker, but said she has been getting weaker and weaker Continue PT Will benefit from SNF (5) Superficial thrombosis of left lower extremity: Plan: On apixaban for 1 month started August 28. To be re-evaluated by her detention sergeant at that time. (6) Hypertension: Plan: Continue carvedilol (lowered hold parameters) and now dc amlodipine as BPs low normal without taking amlodipine for 2 days (7) ESRD (end stage renal disease): Plan: Continue HD continue sevelamer, Nephrocaps, cinacalcet (8) GERD (gastroesophageal reflux disease): Plan: continue PPI (9) Chronic acquired lymphedema: Plan: with some open wounds continue wound care Plan VTE Prophylaxis - Eliquis Diet - dialysis renal, T2DM Disposition - continue hospitalization, plan to d/c to SNF tomorrow after diarrhea improved Discussed care with Nephrology on 09/23 and 09/24 Admission and Anticipated Discharge Date Admission Date: September 16, 2022 Subjective Diarrhea has slowed down a bit and stool becoming slightly more formed as per nursing. Rectal tube removed. Patient denies abdominal pains, no other complaints. She mostly lays in bed all day Telemetry with normal sinus rhythm with rates in the 70s Physical Exam Constitutional: WD/WN, vitals as above Respiratory: normal respiratory effort, lungs clear to auscultation Cardiovascular: Rate/Rhythm: regular rate and regular rhythm Extremities: + edema (1+ pitting edema legs bilat) Gastrointestinal (Abdomen): normal bowel sounds, soft, nontender, no hepatosplenomegaly Psychiatric: Orientation: alert and oriented x 3 Affect: + flat affect Results & Data Results & Data Vital Signs (Past 12 Hours) Vital Signs Temp Pulse Pulse Resp BP Pulse Ox O2 Del Method 09/24/22 15:50 73 09/24/22 15:16 36.6 C 71 20 96/60 L 94 Room Air 09/24/22 11:27 37.2 C 59 L 20 112/71 95 Room Air 09/24/22 08:15 Room Air 09/24/22 07:51 36.9 C 71 20 108/68 97 Room Air 09/24/22 07:22 73 Laboratory Results BMP, magnesium, LFTs reviewed PG Care Time/CCT Total # of Minutes Spent Total Time Spent with Patient: Total time spent is greater than 50% in coordination of care (as documented) at patient's floor/unit and/or counseling patient: Coding Level of Care Code 30085 SUB INP/OBS CARE 2/35MIN Diagnoses Hypervolemia associated with renal insufficiency E87.70; N28.9 Nausea vomiting and diarrhea R11.2; R19.7 Diabetes type 2, uncontrolled E11.65 Physical deconditioning R53.81 Superficial thrombosis of left lower extremity I82.812 Hypertension I10 Hypertension type: essential hypertension ESRD (end stage renal disease) N18.6 GERD (gastroesophageal reflux disease) K21.9 Chronic acquired lymphedema I89.0 (6) Hypertension Hypertension type: essential hypertension Qualified Code(s): I10 - Essential (primary) hypertension
[2022-09-24] MEDS ORDERED: LANTUS PER UNIT CHARGE SQ SCH (21:00)
[2022-09-25] MEDS: LOPERAMIDE HCL 2 MG CAP PO SCH ×4 (00:10→13:38)
[2022-09-25] MEDS: CINACALCET HCL 30 MG TAB PO SCH (07:49)
--- NOTE | 2022-09-25 08:22 | Discharge Summary ---
Discharge Summary Date of Service September 25, 2022 Notes For Next Care Provider Medication Changes From Visit Discontinued amlodipine Added Imodium prn Added Sevelamer Decreased Lantus dosing Admission HPI Per Admitting Provider Delfina Reyna is a 67 year old female who presents to the ER on advice of her power shovel operator with increased leg edema and ambulatory dysfunction. She recently missed two dialysis sessions last Wednesday and Wednesday due to nausea, vomiting and diarrhea illness which now appears resolved after restarting on her pantoprazole medication on Wednesday which she has not been taking regularly. She denies any current problem with this and no abdominal pain. With missing dialysis her leg edema has become worse and she has weeping wound on her legs. This has led to h er decreased ambulation around the house and her is concerned it has got to a stage it is hard to help her now. Her notes blood glucose at home has also been running high but can fluc tuate anywhere from 40s to 420 in the last month. Generally they run around 200s. Her is concerned he does not know how much insulin to give based on her glucose level. She denies taking any basal insulin but just takes a correction dose three times a day. She had been prescribed a dexacom but reports this just kept falling off so is no longer using it. Principal Dx & Hospital Course #1 = Principal Diagnosis (1) Hypervolemia associated with renal insufficiency: Presents after she missed a couple of her HD sessions due to diarrhea Presented with signs of fluid overload Nephrology on consult, plan is to continue HD after receiving an extra session Monitor fluid status, which has improved following multiple sessions of UF follow renal panel periodically with dialysis (2) Nausea vomiting and diarrhea: Nausea and vomiting resolved, but diarrhea persisted--> now greatly improved and rectal tube removed Etiology of diarrhea is uncertain-Stool PCR and C. diff negative Ongoing x 1 week prior to admission perhaps from gut edema? continue Imodium prn (3) Diabetes type 2, uncontrolled: Patient is Unsure about her home insulin regimen now with some lows-lowered Lantus and Novolog and still low-decrease Lantus to 15 units qhs appreciate Pharmacy assistance (4) Physical deconditioning: Patient walks with a walker, but said she has been getting weaker and weaker Continue PT Will benefit from SNF (5) Superficial thrombosis of left lower extremity: On apixaban for 1 month started August 28. To be re-evaluated by her sander hand/Vascular medicine Dr. Abel at that time. (6) Hypertension: Continue carvedilol (lowered hold parameters) and now dcd amlodipine as BPs low normal without taking amlodipine for 2 days (7) ESRD (end stage renal disease): Continue HD continue sevelamer, Nephrocaps, cinacalcet (8) GERD (gastroesophageal reflux disease): continue PPI (9) Chronic acquired lymphedema: with some open wounds, previously followed with wound care clinic continue wound care Plan VTE Prophylaxis - Eliquis Diet - dialysis renal, T2DM Disposition - continue hospitalization, plan to d/c to SNF today Discussed care with Nephrology on 09/23 and 09/24 Discharge Exam Constitutional WD/WN, vitals as above Respiratory normal respiratory effort, lungs clear to auscultation Cardiovascular Rate/Rhythm: regular rate and regular rhythm Extremities: + edema (1+ pitting edema legs bilat) Gastrointestinal (Abdomen) normal bowel sounds, soft, nontender, no hepatosplenomegaly Psychiatric Orientation: alert and oriented x 3 Updated Medication List Medication Instructions Recorded Confirmed Type blood-glucose sensor (Dexcom G6 #3 ea 06/24/21 09/16/22 Rx Sensor device) blood-glucose transmitter (Dexcom #1 ea 06/24/21 09/16/22 Rx G6 Transmitter device) carvedilol 25 mg tablet (Coreg) 50 mg PO BID #360 tabs 11/24/21 09/16/22 Rx blood-glucose meter (OneTouch #1 ea 11/25/21 09/16/22 Rx Ultra2 Meter kit) lancets (OneTouch UltraSoft #200 ea 11/25/21 09/16/22 Rx Lancets) cinacalcet 30 mg tablet 30 mg PO 3XWK 02/11/22 09/16/22 History amlodipine 10 mg tablet 10 mg PO DAILY #90 tabs 03/09/22 09/16/22 Rx insulin aspart U-100 100 unit/mL 1 - 15 unit (0.01 - 0.15 mL) SC 04/08/22 09/16/22 Rx (3 mL) subcutaneous pen (Novolog TIDM PRN SLIDING SCALE #15 mL FlexPen U-100 Insulin aspart) clopidogrel 75 mg tablet (Plavix) 75 mg PO QAM #90 tabs 08/06/22 09/16/22 Rx BD Ultra-Fine Gwen Pen Needle 32 #500 ea 08/10/22 09/16/22 Rx gauge x 5/32" (pen needle, diabetic) blood sugar diagnostic (OneTouch #200 ea 08/10/22 09/16/22 Rx Ultra Test strips) apixaban 2.5 mg tablet (Eliquis) 2.5 mg PO BID #60 tabs 08/28/22 09/16/22 Rx cholecalciferol (vitamin D3) 125 125 mcg PO DAILY #45 caps 09/07/22 09/16/22 Rx mcg (5,000 unit) capsule diclofenac sodium 1 % topical gel 4 g topical QID PRN Pain 09/16/22 09/16/22 History (Voltaren Arthritis Pain) pantoprazole 40 mg tablet,delayed 40 mg PO QAM 09/16/22 09/16/22 History release insulin glargine 100 unit/mL 15 unit (0.15 mL) subcut HS #10 mL 09/24/22 Rx subcutaneous solution (Lantus U-100 Insulin) loperamide 2 mg capsule 2 mg PO Q4H PRN loose stool #30 09/24/22 Rx caps sevelamer HCl 800 mg tablet 800 mg PO TIDM #90 tabs 09/24/22 Rx (Renagel) vitamin B complex and vitamin C 1 cap PO QAM #30 caps 09/24/22 Rx no.20-folic acid 1 mg capsule (Renal Caps) Hospital Stay Data Consultations 09/16/22 16:55 ED Decision to Admit Stat 09/16/22 21:26 Consult Nephrology Routine Pending Results Patient Have Any Pending Studies at Discharge: No Discharge Instructions Given to Patient (Per Discharging Provider) Please continue hemodialysis on Wednesday, Wednesday, and Wednesday. Your diarrhea is now improving with Imodium-continue using this as needed for diarrhea. Continue wound care to multiple wounds on legs and sacral area. You are on Eliquis for your superficial clot in the lower extremity-you are to follow up with Dr. Abel for this within the next week to see if your Eliquis can be stopped. Total Time Total Time Spent Total Time Spent (In Minutes): 35 min Coding Level of Care Code 57694 INP/OBS DISCH >30 MIN Diagnoses Hypervolemia associated with renal insufficiency E87.70; N28.9 Nausea vomiting and diarrhea R11.2; R19.7 Diabetes type 2, uncontrolled E11.65 Physical deconditioning R53.81 Superficial thrombosis of left lower extremity I82.812 Hypertension I10 Hypertension type: essential hypertension ESRD (end stage renal disease) N18.6 GERD (gastroesophageal reflux disease) K21.9 Chronic acquired lymphedema I89.0
[2022-09-25] MEDS: INSULIN ASPART PER UNIT CHARGE SC SCH ×2 (08:40→14:05)
[2022-09-25] MEDS: SEVELAMER HCL 800 MG TABLET PO SCH ×2 (08:56→13:38)
[2022-09-25] MEDS: carvediloL 25 MG TAB PO SCH (08:56)
[2022-09-25] MEDS: APIXABAN 2.5 MG TAB PO SCH (08:56)
[2022-09-25] MEDS: PANTOprazole 40 MG TAB PO SCH (08:57)
[2022-09-25] MEDS: NEPHROCAPS PO SCH (08:57)
[2022-09-25] MEDS: CHOLECALCIFEROL 5,000 UNITS 125 MCG TAB PO SCH (08:57)
[2022-09-25] MEDS: CLOPIDOGREL BISULFATE 75 MG TAB PO SCH (08:57)
--- NOTE | 2022-09-25 12:24 | Nephrology Progress Note ---
Date of Service September 25, 2022 Assessment & Plan (1) End stage renal disease: Plan Mrs. Reyna is a 67 year old female with end-stage renal disease secondary to diabetic nephropathy, on hemodialysis Wednesday, Wednesday, Wednesday at [facility] dialysis, admitted to the hospital with volume overload after missing cyst session last week due to nausea, vomiting and diarrhea. She presented to ER profoundly weak and more than 9 kg above her estimated dry weight of kg. Add back to back dialysis with significant improvement in her volume status although she is still above her dry weight but clinically looks much better. She dialysis via IJ tunneled dialysis catheter although she has functioning AV fistula which is not being used because of history of prolonged bleeding. Over last few months she has been clinically declining with failure to thrive and now she is open to assisted care placement due to her functional decline. Overall clinically staying stable, blood pressure acceptable, Diarrhea resolved and rectal tube was removed. -- Tolerating hemodialysis, volume status improve significantly and currently she is at her dry weight. -- Continue on renal vitamin, Sevelamer TIDM as phosphate binder with meals. -- dose medications for EGFR less than 10 --CATHIE for Hb <10 -- waiting [facility] to [facility]. will follow Admission and Anticipated Discharge Date Admission Date: September 16, 2022 Giovanni Mathis was seen and examined during dialysis this morning. She has been tolerating dialysis, denied any symptom with UF. Blood pressure acceptable. Diarrhea resolved and rectal Tube was taken out. Review of Systems Review of Systems: detailed review of system was otherwise unremarkable except mentioned above. Physical Exam Constitutional: WD/WN, vitals as above + ill appearing; no acute distress Eyes: + anicteric sclerae Neck: normal visual inspection Respiratory: no respiratory distress Auscultation: lungs clear to auscultation bilaterally Cardiovascular: Rate/Rhythm: regular rate and regular rhythm Heart Sounds: normal S1 and normal S2 Extremities: + vascular access device ( Right IJ tunneled dialysis catheter) and + AV fistula (AV fistula with thrill and bruit); no edema Skin: normal turgor; no rashes Neurologic: no focal motor deficits and not confused Psychiatric: Orientation: alert and oriented x 3 Results & Data Vital Signs (Past 12 Hours) Vital Signs Temp Pulse Pulse Resp BP BP Pulse Ox 09/25/22 12:00 72 115/66 09/25/22 11:30 71 119/64 09/25/22 11:00 69 118/64 09/25/22 10:30 67 124/69 09/25/22 10:00 68 128/63 09/25/22 09:30 67 120/69 09/25/22 09:20 37.1 C 68 09/25/22 07:22 36.9 C 66 17 113/68 91 09/25/22 07:34 09/25/22 06:01 67 O2 Del Method 09/25/22 12:00 09/25/22 11:30 09/25/22 11:00 09/25/22 10:30 09/25/22 10:00 09/25/22 09:30 09/25/22 09:20 09/25/22 07:22 Room Air 09/25/22 07:34 Room Air 09/25/22 06:01 PG Care Time/CCT Total # of Minutes Spent Total Time Spent with Patient: Total time spent is greater than 50% in coordination of care (as documented) at patient's floor/unit and/or counseling patient: Coding Level of Care Code 66991 SUB INP/OBS CARE 2/35MIN Diagnoses End stage renal disease N18.6
== END 2022-09-25 14:24 | DRG 640 ==
LOC: ED 14:41 → SUATTDRO 19:11 → 2W 19:11

== ENCOUNTER 2022-10-24 07:10 | Inpatient (IN) ==
--- NOTE | 2022-10-24 07:29 | Emergency Department Note ---
Impression & Plan Acute alteration in mental status, Non-ST elevation DE (NSTEMI) ED Provider Note NAME: SHALOM KRAMER AGE: 67 SEX: F : 1955 ARRIVES VIA: Ambulance INFORMANT: Patient, ED PROVIDER(S): Spencer Goff DO CHIEF COMPLAINT: Altered mental status HPI: The patient is a 67-year-old female who presented to the emergency department by ambulance from [facility]. The patient was recently admitted to our facility. She has a history of diabetes. She has been receiving dialysis recently. She recently had dialysis yesterday. She had a full round of dialysis according to the patient. According the prehospital personnel the patient was confused [facility]. She was reportedly having a pulse rate in the 20s and an oxygen saturation that was in the 60s. The prehospital rate checked everything and the patient's pulse rate was in the 70s with a pulse ox of 97%. The patient was on room air. The patient himself denies having any chest pain or difficulty breathing. She denies having any headache but she states that she was very confused this morning and could not remember anything. She states she did not remember [facility] She was recently diagnosed with COVID. She was on Paxlovid. Blood sugar was not low prior to arrival. ROS: See above HPI for pertinent positives & negatives. A total of 10 systems reviewed and were otherwise negative. PAST MEDICAL HISTORY: See Below PAST SURGICAL HISTORY: See Below FAMILY HISTORY: See Below SOCIAL HISTORY: See Below HOME MEDICATIONS: See Below ALLERGIES: See Below VITALS: See Below PHYSICAL EXAMINATION: GENERAL: The patient is awake and alert. She is comfortable and nonanxious appearing. EYES: The conjunctivae are clear. The pupils are round and reactive. EARS, NOSE, MOUTH AND THROAT: The nose is without any evidence of any deformity. NECK: The neck is nontender and supple. RESPIRATORY: Diminished breath sounds are noted at the bases. There is no rales rhonchi or wheezing. There is no tachypnea or conversational dyspnea. CARDIOVASCULAR: Irregular rhythm was noted to auscultation. Systolic murmur was suggested. GASTROINTESTINAL: The abdomen is soft. Abdomen is nontender. MUSCULOSKELETAL/EXTREMITIES: There is no evidence of gross deformity full range of motion is noted in the hips and shoulders. SKIN: Skin was warm and dry. Pedal edema was noted bilaterally. They were wound dressings over the sacral area as well as the upper extremities. NEUROLOGIC: Patient is awake alert and oriented to person place and time. Strength was symmetric but diminished. MEDICAL DECISION MAKING: The patient is a 67-year-old female who presented to the emergency department for an evaluation of altered mental status. The patient is a history of diabetes. The patient arrived from her personal mcc. I discussed the patient's laboratory and radiographic studies with her. Additional history is obtained from the family members. Given her findings especially the elevated troponin she was treated with aspirin. CT of the brain showed no acute intracranial process. I discussed her condition with the on-call [facility] hospitalist. They have agreed to evaluate the patient in the emergency dep artment for further management and disposition. Triage Nursing notes reviewed. Prior medical records reviewed Vital Signs: reviewed and remarkable for no significant abnormalities Differential diagnosis: Infection, hypoglycemia, electrolyte abnormalities, overdose, toxicologic, cardiac sources, intracerebral event, neurologic, trauma, as well as other pathologies. ER treatment provided: See below Diagnostics interpreted by me: ECG: EKG was obtained in the emergency department. My interpretation is normal sinus rhythm at 83 bpm. There is no ectopy. Inferior and lateral ST depressions were noted. This was compared to a tracing from September 16, 2022. No changes were noted. Cardiac Monitoring: An order was placed for continuous cardiac monitoring. The monitor shows a rate of 92 bpm with sinus rhythm. Laboratory studies: As stated above and show below. Imaging studies: See below. Radiographic imaging was reviewed by myself Consultation(s): I discussed this case with Dr. Rosario who is on for the [facility] hospitalist group. Past Med/Surg History Medical History (Updated 10/24/22 @ 13:47 by Javier Arroyo MD) Anemia Background diabetic retinopathy associated with type 2 diabetes mellitus CAD (coronary artery disease) Non obstructive (August 2009) per cardio records CKD (chronic kidney disease), stage IV Hemodialysis MWF Diabetes type 2, uncontrolled Diabetic nephropathy associated with type 2 diabetes mellitus Dyslipidemia ESRD (end stage renal disease) GERD (gastroesophageal reflux disease) History of CVA (cerebrovascular accident) (2016) Hx of Lyme disease Hypertension Mitral regurgitation Morbid obesity Nocturnal hypoxemia Nonischemic cardiomyopathy Osteopenia Primary hyperparathyroidism Subclinical hypothyroidism TSH 5.180 in 01/2021 Traumatic ulcer of left lower leg Vitamin D deficiency Vocal cord paralysis syndrome Surgical History Difficult airway for intubation PT STATES HAS HAD VOCAL CORD PARAYSIS IN PAST Fiberoptic intubation used with 10/2019 lap odalis History of cataract surgery RT/LEFT History of vascular access device 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 (USING FOR DIALYSIS) Hx of colonoscopy Hx of eye surgery EYE MUSCLE REPAIR Hx of tonsillectomy Hx of tubal ligation S/P cardiac catheterization OVER 10 YEARS AGO/NO STENTS Status post laparoscopic cholecystectomy (10/07/19) Howard teeth removed Family History Father Family history of diabetes mellitus Aunt Family history of diabetes mellitus Uncle Family history of diabetes mellitus Brother Family history of diabetes mellitus Brother Family history of diabetes mellitus Grandmother (Maternal) Family hx of colon cancer Other Alzheimer disease Coronary heart disease No family history of adverse response to anesthesia Social History Smoking Status: Unknown if ever smoked Tobacco Type: Cigarettes Second Hand Exposure: No; Do You Dip or Chew Tobacco: No; Hx Alcohol Use: No Hx Substance Use: No Preferred Language: Romanian Communication Ability: Effective Visual Impairment: No Limitations Hearing Ability: Normal Sand Technician Required: No Beliefs That Will Affect Care: None marital status: Current Living Situation: Skilled Nursing Current Living Situation Comment: Resides at [facility]. Other Information That Helps Us Care for You: No Feels Safe at Home: Yes Diet: low salt and vegetarian caffeine: Yes Seatbelt Use: always Assistive Devices: Wheelchair Allergies Allergies Allergy/AdvReac Type Severity Reaction Status Date / Time dulaglutide [From [facility]] Allergy Intermediate Hives Verified 10/22/22 12:47 atorvastatin AdvReac Intermediate Joint Pain Verified 10/22/22 12:47 erythromycin base AdvReac Intermediate Vomiting Verified 10/22/22 12:47 Home Meds Home Medications Medication Instructions Recorded Confirmed pantoprazole 40 mg tablet,delayed 40 mg PO QAM 09/16/22 10/24/22 release amlodipine 10 mg tablet 10 mg PO DAILY 10/24/22 10/24/22 cinacalcet 30 mg tablet 0 mg PO 3XWK 07/22/23 insulin aspart U-100 100 unit/mL See Rx Instructions .Route 10/24/22 10/24/22 (3 mL) subcutaneous pen (Novolog .COMPLEX PRN Other FlexPen U-100 Insulin aspart) loperamide 2 mg capsule 0 mg PO Q4H PRN loose stool 10/24/22 vitamin B complex and vitamin C 0 cap PO QAM 10/24/22 no.20-folic acid 1 mg capsule (Renal Caps) Previous Rx's Medication Instructions Recorded blood-glucose sensor (Dexcom G6 #3 ea 06/24/21 Sensor device) blood-glucose transmitter (Dexcom #1 ea 06/24/21 G6 Transmitter device) carvedilol 25 mg tablet (Coreg) 50 mg PO BID #360 tabs 11/24/21 blood-glucose meter (OneTouch #1 ea 11/25/21 Ultra2 Meter kit) lancets (OneTouch UltraSoft #200 ea 11/25/21 Lancets) clopidogrel 75 mg tablet (Plavix) 75 mg PO QAM #90 tabs 08/06/22 BD Ultra-Fine Gwen Pen Needle 32 #500 ea 08/10/22 gauge x 5/32" (pen needle, diabetic) blood sugar diagnostic (OneTouch #200 ea 08/10/22 Ultra Test strips) apixaban 2.5 mg tablet (Eliquis) 2.5 mg PO BID #60 tabs 08/28/22 cholecalciferol (vitamin D3) 125 125 mcg PO DAILY #45 caps 09/07/22 mcg (5,000 unit) capsule molnupiravir 200 mg capsule (EUA) 800 mg PO Q12H 5 days #40 caps 10/19/22 sevelamer carbonate 800 mg tablet 800 mg PO TID #270 tabs 10/20/22 insulin aspart U-100 100 unit/mL 5 unit (0.05 mL) SC TIDM #15 mL 10/22/22 (3 mL) subcutaneous pen (Novolog FlexPen U-100 Insulin aspart) insulin glargine 100 unit/mL 25 unit (0.25 mL) subcut HS #10 mL 10/22/22 subcutaneous solution (Lantus U-100 Insulin) Results & Data (ED) Vital Signs Vital Signs - 24 hr 10/24/22 07:21 10/24/22 07:21 10/24/22 07:21 Temperature 36.8 C Temperature Source Oral Pulse Rate 79 79 Pulse Rate [Apical] 79 Pulse Rhythm Regular Pulse Rhythm [Apical] Regular Pulse Strength Normal Pulse Strength [Apical] Normal Respiratory Rate 14 14 14 Respiratory Effort / Characteristics Non-Labored Non-Labored Respiratory Depth Normal Normal Respiratory Pattern Regular Regular Blood Pressure 113/67 Blood Pressure [Left Arm] 113/67 Blood Pressure Mean 82 Blood Pressure Mean [Left Arm] 82 Blood Pressure Position [Left Arm] Pulse Oximetry 95 95 95 Oxygen Delivery Method Room Air Room Air Room Air Sepsis Recent Fever Within 48 Hours No Sepsis New/Unexplained Change in Mental Status No Sepsis Action Taken by Nursing No Action Required 10/24/22 07:59 10/24/22 09:00 Temperature Temperature Source Pulse Rate 84 Pulse Rate [Apical] 89 Pulse Rhythm Pulse Rhythm [Apical] Regular Pulse Strength Pulse Strength [Apical] Normal Respiratory Rate 18 Respiratory Effort / Characteristics Non-Labored Respiratory Depth Normal Respiratory Pattern Regular Blood Pressure Blood Pressure [Left Arm] 116/78 Blood Pressure Mean Blood Pressure Mean [Left Arm] 90 Blood Pressure Position [Left Arm] Lying Pulse Oximetry 99 Oxygen Delivery Method Room Air Sepsis Recent Fever Within 48 Hours Sepsis New/Unexplained Change in Mental Status Sepsis Action Taken by Skilled Nursing Medications Current Medication List: was personally reviewed by me Laboratory Data Attestation: I reviewed the patient's lab results. 10/24/22 06:55 10/24/22 07:21 Lab Results 10/24/22 10/24/22 10/24/22 Range/Units 06:55 06:55 06:55 WBC 4.82 (4.8-10.8) K/ul RBC 4.28 (4.20-5.40) M/uL Hgb 11.3 L (12.0-16.0) g/dl Hct 36.3 L (37.0-47.0) % MCV 84.8 (80.0-100.0) fL MCH 26.4 (25.0-34.0) pg MCHC 31.1 L (32.0-36.0) g/dL RDW Std Deviation 54.3 H (36.4-46.3) fL RDW Coeff of Braeden 17.5 H (11.5-14.5) % Plt Count 121 L (130-400) K/uL MPV 11.7 (9.4-12.4) fL Immature Gran % (Auto) 0.2 % Neut % (Auto) 60.0 % Lymph % (Auto) 27.8 % [place] % (Auto) 9.1 % Eos % (Auto) 2.1 % Baso % (Auto) 0.8 % Neut # (Auto) 2.89 (1.40-6.50) K/uL Lymph # (Auto) 1.34 (1.2-3.4) K/uL [place] # (Auto) 0.44 (0.11-0.59) K/uL Eos # (Auto) 0.10 (0-0.50) K/uL Baso # (Auto) 0.04 (0-0.2) K/uL Immature Gran # (Auto) 0.01 (0.01-0.20) K/uL PT 11.0 (9.0-12.0) Seconds INR 1.0 (0.9-1.1) APTT 23.4 (21.0-31.0) Seconds PTT Ratio 0.8 Sodium (136-145) mmol/L Potassium (3.5-5.1) mmol/L Chloride (98-107) mmol/L Carbon Dioxide (21-32) mmol/L Anion Gap (3-11) BUN (6-23) mg/dl Creatinine (0.6-1.2) mg/dl Est Cr Clr Drug Dosing ml/min Est GFR ( Amer) ml/min Est GFR (Non-Af Amer) ml/min BUN/Creatinine Ratio (10-20) Glucose (70-99(Fasting)) mg/dl Calcium (8.6-10.3) mg/dl Magnesium (1.7-2.4) mg/dl Total Bilirubin (0.2-1.0) mg/dl AST (13-39) U/L ALT (7-52) U/L Alkaline Phosphatase (34-104) U/L Total Creatine Kinase (26-192) U/L Troponin I High Sens (0-14) pg/ml Total Protein (6.0-8.3) gm/dl Albumin (3.4-5.0) gm/dl Globulin (2.5-4.0) gm/dl Albumin/Globulin Ratio (0.9-2) TSH 4.147 (0.300-4.500) uIu/ml SARS-CoV-2, RNA, NAAT (NEGATIVE) 10/24/22 10/24/22 Range/Units 07:21 09:21 WBC (4.8-10.8) K/ul RBC (4.20-5.40) M/uL Hgb (12.0-16.0) g/dl Hct (37.0-47.0) % MCV (80.0-100.0) fL MCH (25.0-34.0) pg MCHC (32.0-36.0) g/dL RDW Std Deviation (36.4-46.3) fL RDW Coeff of Braeden (11.5-14.5) % Plt Count (130-400) K/uL MPV (9.4-12.4) fL Immature Gran % (Auto) % Neut % (Auto) % Lymph % (Auto) % [place] % (Auto) % Eos % (Auto) % Baso % (Auto) % Neut # (Auto) (1.40-6.50) K/uL Lymph # (Auto) (1.2-3.4) K/uL [place] # (Auto) (0.11-0.59) K/uL Eos # (Auto) (0-0.50) K/uL Baso # (Auto) (0-0.2) K/uL Immature Gran # (Auto) (0.01-0.20) K/uL PT (9.0-12.0) Seconds INR (0.9-1.1) APTT (21.0-31.0) Seconds PTT Ratio Sodium 140 (136-145) mmol/L Potassium 4.3 (3.5-5.1) mmol/L Chloride 97 L (98-107) mmol/L Carbon Dioxide 29 (21-32) mmol/L Anion Gap 14 H (3-11) BUN 48 H (6-23) mg/dl Creatinine 4.45 H (0.6-1.2) mg/dl Est Cr Clr Drug Dosing 14.0 ml/min Est GFR ( Amer) 11.1 ml/min Est GFR (Non-Af Amer) 9.6 ml/min BUN/Creatinine Ratio 10.8 (10-20) Glucose 156 H (70-99(Fasting)) mg/dl Calcium 9.7 (8.6-10.3) mg/dl Magnesium 2.2 (1.7-2.4) mg/dl Total Bilirubin 0.6 (0.2-1.0) mg/dl AST 17 (13-39) U/L ALT 13 (7-52) U/L Alkaline Phosphatase 75 (34-104) U/L Total Creatine Kinase 26 (26-192) U/L Troponin I High Sens 233.4 H* (0-14) pg/ml Total Protein 6.6 (6.0-8.3) gm/dl Albumin 3.3 L (3.4-5.0) gm/dl Globulin 3.3 (2.5-4.0) gm/dl Albumin/Globulin Ratio 1.0 (0.9-2) TSH (0.300-4.500) uIu/ml SARS-CoV-2, RNA, NAAT POSITIVE A* (NEGATIVE) Administered Medications Insulin Aspart (Insulin Aspart Per Unit Charge) 0 units SC ACHS JACE Stop: 11/23/22 11:29 Last Admin: 10/24/22 14:24 Dose: 3 units Documented By: BT Co-signed By: NMS Sevelamer HCl (Sevelamer Hcl 800 Mg Tablet) 800 mg PO TIDM JACE Stop: 11/23/22 11:59 Last Admin: 10/24/22 13:52 Dose: 800 mg Documented By: MJN Discontinued Medications Aspirin (Aspirin Chew 324 Mg) 324 mg PO NOW STA Stop: 10/24/22 09:34 Last Admin: 10/24/22 09:56 Dose: 324 mg Documented By: AP Imaging Data Attestation: I personally reviewed and interpreted this imaging study as follows: My Impression: 1 view chest x-ray was obtained in the emergency department. My interpretation is no free air or definite infiltrate, final report below. CT of the brain was obtained in the emergency department. My interpretation is no intracranial hemorrhage or mass effect, final report below. Radiologist's Impression: Chest X-Ray 10/24/22 07:21 XR chest 1V portable CLINICAL HISTORY: weakness COMPARISON STUDY: Chest radiograph September 16, 2022. FINDINGS: Dual lumen right internal jugular catheter remains in place. No pneumothorax or pleural effusion is present. Cardiomegaly is unchanged. There is pulmonary vascular congestion without evidence for pulmonary edema. No consolidation to suggest pneumonia.. IMPRESSION: Cardiomegaly with pulmonary vascular congestion. No evidence for pulmonary edema. ACT 112: Negative or not required by law. Electronically signed by: Jonathan An M.D. 10/24/2022 7:[address] 10/24/22 07:21 CT OF THE HEAD WITHOUT CONTRAST CLINICAL HISTORY: Altered mental status. COMPARISON STUDY: Head CT July 20, 2022. MRI of the brain June 24, 2017. CT DOSE: 703.85 mGy.cm TECHNIQUE: Helical axial images of the head were obtained without IV contrast. Automated exposure control was utilized for the study. A dose lowering technique was utilized adhering to the principles of ALARA. FINDINGS: No acute intracranial hemorrhage, midline shift or mass effect is present. White matter hypodensities are similar to prior exam. Suspected small old infarct within the left basal ganglia is unchanged. There has been no change in appearance of the brain. The ventricular system is unremarkable. The basal cisterns are patent. No extra-axial collections are present. There are no findings to suggest acute dural sinus thrombosis or acute territorial infarct. No significant calvarial abnormalities are present. Visualized portions of the sinuses and mastoid air cells are clear. IMPRESSION: No acute intracranial findings. No change in appearance of the brain. ACT 112: Negative or not required by law. Electronically signed by: Jonathan An M.D. 10/24/2022 7:59 AM Discharge Plan Visit Data Chief Complaint: Illness Stated Complaint: MILD CONFUSION, DIZZINESS ED Provider: Spencre Goff Discharge Problem: Acute alteration in mental status, Non-ST elevation DE (NSTEMI) Patient Disposition: Admitted As Inpatient Discharge Instructions Interventions: ED Discharge Assessment Last Done: 10/24/22 10:27
--- NOTE | 2022-10-24 07:41 | XRay Report ---
XR chest 1V portable CLINICAL HISTORY: weakness COMPARISON STUDY: Chest radiograph September 16, 2022. FINDINGS: Dual lumen right internal jugular catheter remains in place. No pneumothorax or pleural eff usion is present. Cardiomegaly is unchanged. There is pulmonary vascular congestion without evidence for pulmonary edema. No consolidation to suggest pneumonia.. IMPRESSION: Cardiomegaly with pulmonary vascular congestion. No evidence for pulmonary edema. ACT 112: Negative or not required by law. Electronically signed by: Jonathan An M.D. 10/24/2022 7:39 AM
[2022-10-24 07:48] LABS: Basophils # (auto) 0.04 K/uL (0-0.2); Basophils % (auto) 0.8 %; Eosinophils % (auto) 2.1 %; Hematocrit (blood only) 36.3 % (37.0-47.0); Hemoglobin 11.3 g/dl (12.0-16.0); Immature Granulocytes # (auto) 0.01 K/uL (0.01-0.20); Immature Granulocytes % (auto) 0.2 %; Lymphocytes # (auto) 1.34 K/uL (1.2-3.4); Lymphocytes % (auto) 27.8 %; Mean Corpuscular Hemoglobin 26.4 pg (25.0-34.0); Mean Corpuscular Hgb Conc 31.1 g/dL (32.0-36.0); Mean Corpuscular Volume 84.8 fL (80.0-100.0); Mean Platelet Volume 11.7 fL (9.4-12.4); Monocytes # (auto) 0.44 K/uL (0.11-0.59); Monocytes % (auto) 9.1 %; Neutrophils # (auto) 2.89 K/uL (1.40-6.50); Platelet Count 121 K/uL (130-400); RDW Coefficient of Variation 17.5 % (11.5-14.5); RDW Standard Deviation 54.3 fL (36.4-46.3); Red Blood Count 4.28 M/uL (4.20-5.40); White Blood Count 4.82 K/ul (4.8-10.8)
--- NOTE | 2022-10-24 08:00 | CT Scan Report ---
CT OF THE HEAD WITHOUT CONTRAST CLINICAL HISTORY: Altered mental status. COMPARISON STUDY: Head CT July 20, 2022. MRI of the brain June 24, 2017. CT DOSE: 703.85 mGy.cm TECHNIQUE: Helical axial images of the head were obtained without IV contrast. Automated exposure con trol was utilized for the study. A dose lowering technique was utilized adhering to the principles o f ALARA. FINDINGS: No acute intracranial hemorrhage, midline shift or mass effect is present. White matter hyp odensities are similar to prior exam. Suspected small old infarct within the left basal ganglia is un changed. There has been no change in appearance of the brain. The ventricular system is unremarkable. The basal cisterns are patent. No extra-axial collections are present. There are no findings to sugg est acute dural sinus thrombosis or acute territorial infarct. No significant calvarial abnormalities are present. Visualized portions of the sinuses and mastoid air cells are clear. IMPRESSION: No acute intracranial findings. No change in appearance of the brain. ACT 112: Negative or not required by law. Electronically signed by: Jonathan An M.D. 10/24/2022 7:59 AM
[2022-10-24 08:09] LABS: Partial Thromboplastin Ratio 0.8; Partial Thromboplastin Time 23.4 Seconds (21.0-31.0)
[2022-10-24 08:45] LABS: Troponin I High Sensitivity 233.4 pg/ml (0-14)
[2022-10-24 09:00] LABS: Albumin Level 3.3 gm/dl (3.4-5.0); Bilirubin,Total 0.6 mg/dl (0.2-1.0); Calcium 9.7 mg/dl (8.6-10.3); Magnesium 2.2 mg/dl (1.7-2.4); Potassium 4.3 mmol/L (3.5-5.1)
[2022-10-24 09:06] LABS: BUN Creatinine Ratio 10.8 (10-20); Est GFR (African American) 11.1 ml/min; Est GFR (Non-African American) 9.6 ml/min; Globulin 3.3 gm/dl (2.5-4.0); Total Protein 6.6 gm/dl (6.0-8.3)
--- NOTE | 2022-10-24 09:15 | Electrocardiogram Report ---
Test Reason : Blood Pressure : / mmHG Vent. Rate : 083 BPM Atrial Rate : 083 BPM P-R Int : 184 ms QRS Dur : 092 ms QT Int : 404 ms P-R-T Axes : 066 -23 262 degrees QTc Int : 474 ms Normal sinus rhythm Left ventricular hypertrophy with repolarization abnormality Nonspecific ST abnormality Inferior leads Abnormal ECG When compared with ECG of 16-SEP-2022 15:53, No significant change Confirmed by Javier Arroyo ([id number]) on 10/24/2022 9:15:22 AM Referred By: Confirmed By:Javier Arroyo
[2022-10-24] MEDS ORDERED: ASPIRIN CHEW 324 MG PO STA (09:33)
--- NOTE | 2022-10-24 09:36 | History & Physical Report ---
Date of Service October 24, 2022 Assessment & Plan (1) Non-ST elevation NV (NSTEMI): Plan: Presents with elevated troponin 200s, no chest pain or SOB at time of interview EKG with ST depressions in inferior leads, no change from previous EKGs per professor of geology Trend troponins q6h, lipid panel and Echo ordered Suspicious of stress-induced cardiomyopathy (in setting of COVID-19 illness), though has Hx CAD on chart as well Has intolerance to atorvastatin, will try rosuvastatin given previously severely elevated TC/LDL Last A1c 10.9, see DM2 BP normotensive, continue home amlodipine and Coreg Continue Plavix Cardiology consulted, appreciate recommendations (2) Acute alteration in mental status: Plan: Differential includes CVA, infectious cause, delirium in dementia patient, medication-related Recently has been very isolated at her facility due to COVID-19 diagnosis, with waxing and waning mental status CT head without evidence of CVA; MRI/MRA ordered to evaluate further for possibility of acute/subacute stroke UA, CXR, WBC count not suggestive of acute bacterial infection but does have recent COVID-19 positive feels symptoms started around when she started Lagevrio for COVID, will not continue this as patient is asymptomatic (3) COVID-19: Plan: Recent diagnosis, isolation precautions Tested positive 10/[address] [facility], also positive on 10/24 Will discuss with Infection Control when patient can be removed off of isolation (4) Diabetes type 2, uncontrolled: Plan: Cont basal/bolus insulin, with diabetic education given last A1c ~10% BSG 140s in ER, close monitoring (5) Superficial thrombosis of left lower extremity: Plan: History of in August, supposed to have follow up with Dr. Abel, will discuss with Cardiology if still needs Eliquis History of Present Illness Chief Complaint: LLE weakness, altered mental status Primary Care Provider: Rashel Patterson, DO 67 yo F PMHx significant for GERD, ESRD on hemodialysis, uncontrolled DM2 on insulin therapy, CAD, history of CVA, recent Dx superficial thrombosis of LLE on Eliquis therapy presents for about 1 week of left lower extremity weakness as well as 2 days of altered mental status, specifically in the mornings. She denies chest pain, shortness of breath, nausea, diaphoresis. She was diagnosed with COVID-19 on 10/17 at personal care facility per her . She has been relatively asymptomatic since that time except for some weakness. Has not had any respiratory or GI symptoms during this time. Yesterday morning and this morning woke up and was not sure where she was, sort of resolved over the course of about an hour of being awake. According to EMS, the personal care facility said that she was extremely hypoxic at the facility, however on their pulse ox she was saturating normally on room air and was non-tachycardic, non-tachypneic. In the ER patient was noted to be hemodynamically stable, no hypoxia, no tachycardia or tachypnea, WBC count not elevated, creatinine 4.45 with potassium of 4.3, BSG 140, COVID-19 positive, and troponin of 233.4. CT head on admission did not show any acute intracranial pathology. Chest x-ray did not show evidence of focal consolidation, but did suggest pulmonary vascular congestion. Hospitalist service was consulted for admission. Allergies Allergy/AdvReac Type Severity Reaction Status Date / Time dulaglutide [From [facility]] Allergy Intermediate Hives Verified 10/22/22 12:47 atorvastatin AdvReac Intermediate Joint Pain Verified 10/22/22 12:47 erythromycin base AdvReac Intermediate Vomiting Verified 10/22/22 12:47 Home Medications Medication Instructions Recorded Confirmed Type blood-glucose sensor (Dexcom G6 #3 ea 06/24/21 10/22/22 Rx Sensor device) blood-glucose transmitter (Dexcom #1 ea 06/24/21 10/22/22 Rx G6 Transmitter device) carvedilol 25 mg tablet (Coreg) 50 mg PO BID #360 tabs 11/24/21 10/24/22 Rx blood-glucose meter (OneTouch #1 ea 11/25/21 10/22/22 Rx Ultra2 Meter kit) lancets (OneTouch UltraSoft #200 ea 11/25/21 10/22/22 Rx Lancets) clopidogrel 75 mg tablet (Plavix) 75 mg PO QAM #90 tabs 08/06/22 10/24/22 Rx BD Ultra-Fine Gwen Pen Needle 32 #500 ea 08/10/22 10/22/22 Rx gauge x 5/32" (pen needle, diabetic) blood sugar diagnostic (OneTouch #200 ea 08/10/22 10/22/22 Rx Ultra Test strips) apixaban 2.5 mg tablet (Eliquis) 2.5 mg PO BID #60 tabs 08/28/22 10/24/22 Rx cholecalciferol (vitamin D3) 125 125 mcg PO DAILY #45 caps 09/07/22 10/24/22 Rx mcg (5,000 unit) capsule pantoprazole 40 mg tablet,delayed 40 mg PO QAM 09/16/22 10/24/22 History release molnupiravir 200 mg capsule (EUA) 800 mg PO Q12H 5 days #40 caps 10/19/22 10/24/22 Rx sevelamer carbonate 800 mg tablet 800 mg PO TID #270 tabs 10/20/22 10/24/22 Rx insulin aspart U-100 100 unit/mL 5 unit (0.05 mL) SC TIDM #15 mL 10/22/22 10/24/22 Rx (3 mL) subcutaneous pen (Novolog FlexPen U-100 Insulin aspart) insulin glargine 100 unit/mL 25 unit (0.25 mL) subcut HS #10 mL 10/22/22 10/24/22 Rx subcutaneous solution (Lantus U-100 Insulin) amlodipine 10 mg tablet 10 mg PO DAILY 10/24/22 10/24/22 History cinacalcet 30 mg tablet 0 mg PO 3XWK 10/24/22 History insulin aspart U-100 100 unit/mL See Rx Instructions .Route 10/24/22 10/24/22 History (3 mL) subcutaneous pen (Novolog .COMPLEX PRN Other FlexPen U-100 Insulin aspart) loperamide 2 mg capsule 0 mg PO Q4H PRN loose stool 10/24/22 History vitamin B complex and vitamin C 0 cap PO QAM 10/24/22 History no.20-folic acid 1 mg capsule (Renal Caps) Past Med/Surg History Medical History Anemia Background diabetic retinopathy associated with type 2 diabetes mellitus CAD (coronary artery disease) Non obstructive (August 2009) per cardio records CKD (chronic kidney disease), stage IV Hemodialysis MWF Diabetes type 2, uncontrolled Diabetic nephropathy associated with type 2 diabetes mellitus Dyslipidemia ESRD (end stage renal disease) GERD (gastroesophageal reflux disease) History of CVA (cerebrovascular accident) Hx of Lyme disease Hypertension Mitral regurgitation Morbid obesity Nocturnal hypoxemia Nonischemic cardiomyopathy Osteopenia Primary hyperparathyroidism Subclinical hypothyroidism TSH 5.180 in 01/2021 Traumatic ulcer of left lower leg Vitamin D deficiency Vocal cord paralysis syndrome Surgical History Difficult airway for intubation PT STATES HAS HAD VOCAL CORD PARAYSIS IN PAST Fiberoptic intubation used with 10/2019 lap odalis History of cataract surgery RT/LEFT History of vascular access device 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 (USING FOR DIALYSIS) Hx of colonoscopy Hx of eye surgery EYE MUSCLE REPAIR Hx of tonsillectomy Hx of tubal ligation S/P cardiac catheterization OVER 10 YEARS AGO/NO STENTS Status post laparoscopic cholecystectomy (10/07/19) Alfred teeth removed Family History Father Family history of diabetes mellitus Aunt Family history of diabetes mellitus Uncle Family history of diabetes mellitus Brother Family history of diabetes mellitus Brother Family history of diabetes mellitus Grandmother (Maternal) Family hx of colon cancer Other Alzheimer disease Coronary heart disease No family history of adverse response to anesthesia Social History Smoking Status: Never smoker Tobacco Type: Cigarettes Second Hand Exposure: No; Do You Dip or Chew Tobacco: No; Hx Alcohol Use: Yes Alcohol type: beer, wine and hard liquor Alcohol Intake Frequency: Monthly or Less Hx Substance Use: No Preferred Language: Polish Communication Ability: Effective Visual Impairment: No Limitations Hearing Ability: Normal Manager Construction Required: No Beliefs That Will Affect Care: None marital status: Current Living Situation: Spouse Feels Safe at Home: Yes Diet: low salt and vegetarian caffeine: Yes Seatbelt Use: always Assistive Devices: Walker and Wheelchair Review of Systems Constitutional: no fever and no chills Respiratory: no cough and no dyspnea Cardiovascular: no chest pain and no palpitations Gastrointestinal: no abdominal pain, no nausea and no vomiting Physical Exam Constitutional: WD/WN, vitals as above Respiratory: normal respiratory effort, lungs clear to auscultation Cardiovascular: RRR, no murmur, no edema Gastrointestinal (Abdomen): normal bowel sounds, soft, nontender, no hepatosplenomegaly Skin: no rashes, warm and dry Neurologic: No facial droop, no slurred speech, no strength deficit noted of the upper arms or face Bilateral LE weak, 3/5 strength, subjective report of decreased sensation over left anterior lower leg compared to the right side Psychiatric: A+Ox3, euthymic affect Results & Data Results & Data Vital Signs (Past 12 Hours) Vital Signs Temp Pulse Pulse Resp BP BP Pulse Ox 10/24/22 09:00 89 18 116/78 99 10/24/22 07:59 84 10/24/22 07:21 79 14 113/67 95 10/24/22 07:21 79 14 95 10/24/22 07:21 36.8 C 79 14 113/67 95 O2 Del Method 10/24/22 09:00 Room Air 10/24/22 07:59 10/24/22 07:21 Room Air 10/24/22 07:21 Room Air 10/24/22 07:21 Room Air Code Status & VTE Plan VTE Prophylaxis Plan VTE Prophylaxis will be ordered: Yes PG Care Time/CCT Total # of Minutes Spent Total Time Spent with Patient: Total time spent is greater than 50% in coordination of care (as documented) at patient's floor/unit and/or counseling patient: Coding Level of Care Code 32201 INT INP/OBS CARE 3/75MIN Diagnoses Non-ST elevation NV (NSTEMI) I21.4 Acute alteration in mental status R41.82 COVID-19 U07.1 Diabetes type 2, uncontrolled E11.65 Superficial thrombosis of left lower extremity I82.812
[2022-10-24] MEDS ORDERED: GLUCAGON FOR INJ 1 MG VIAL SQ PRN (11:22)
[2022-10-24] MEDS ORDERED: GLUCOSE 10 TAB/TUBE PO PRN (11:22)
[2022-10-24] MEDS ORDERED: CARBOHYDRATES FOR HYPOGLYCEMIA PO PRN (11:22)
[2022-10-24] MEDS ORDERED: GLUCOSE 40% GEL 15 GM TUBE PO PRN (11:22)
[2022-10-24] MEDS ORDERED: DEXTROSE 50% 50 ML SYRINGE IV PRN (11:22)
--- NOTE | 2022-10-24 11:59 | XCELERA ---
[id number] [id number]
[2022-10-24] MEDS: SEVELAMER HCL 800 MG TABLET PO SCH ×2 (13:52→17:47)
--- NOTE | 2022-10-24 14:18 | Magnetic Resonance Report ---
MRI OF THE BRAIN WITHOUT CONTRAST CLINICAL HISTORY: Left lower extremity weakness. Evaluate for subacute CVA. COMPARISON STUDY: MRI of the brain June 24, 2017. Head CT October 24, 2022. TECHNIQUE: Utilizing a 1.5 Bettie magnet and dedicated coil, multiplanar, multiecho imaging of the bra in was performed without IV contrast. FINDINGS: There are no foci of restricted diffusion to suggest acute infarct. No acute intracranial h emorrhage, midline shift or mass effect is present. Ventricular system is unremarkable. Basal cistern s are patent. There are no extra-axial collections. Flow-voids for the major intracranial vessels are present. No intracranial masses identified on this unenhanced examination. White matter T2 hyperinte nse foci are similar to MRI of June 24, 2017. There is an old left basal ganglia infarct. This is un changed. The appearance of the brain is unchanged. Calvarial signal is within normal limits. IMPRESSION: No acute intracranial findings. ACT 112: Negative or not required by law. Electronically signed by: Jonathan An M.D. 10/24/2022 2:16 PM
--- NOTE | 2022-10-24 14:23 | Magnetic Resonance Report ---
MRA OF THE NECK WITHOUT CONTRAST CLINICAL HISTORY: LLE weakness eval for subacute CVA COMPARISON STUDY: Carotid ultrasound September 25, 2016. TECHNIQUE: A 1.5 Bettie magnet was utilized. 2-D and 3-D [id number] imaging was performed to obt ain unenhanced MRA of the neck. NASCET criteria were utilized to estimate the degree of carotid sten osis. FINDINGS: This exam is significantly compromised given motion artifact and noncontrast technique. The bilateral common carotid, cervical internal carotid and vertebral arteries are patent. The sensitivi ty for detection of stenoses is diminished but no high-grade stenoses are identified. There is no def inite aneurysm within the neck. No definite evidence for dissection. IMPRESSION: Exam significantly compromised from a technical standpoint, as described above. No sever e stenoses within the bilateral common carotid, cervical internal carotid or vertebral arteries. ACT 112: Negative or not required by law. Electronically signed by: Jonathan An M.D. 10/24/2022 2:21 PM
[2022-10-24] MEDS: INSULIN ASPART PER UNIT CHARGE SC SCH ×3 (14:24→20:49)
--- NOTE | 2022-10-24 14:35 | Magnetic Resonance Report ---
MRA OF THE INTRACRANIAL CIRCULATION WITHOUT CONTRAST CLINICAL HISTORY: LISA jimenez eval for subacute CVA COMPARISON STUDY: Head CT October 24, 2022. MRI of the brain June 24, 2017. TECHNIQUE: Utilizing a 1.5 Bettie magnet and 3-D [id number]-dt-[id number] technique, unenhanced MRA of the intra cranial circulation was obtained. FINDINGS: This exam is moderately compromised by motion artifact. The bilateral M1, M2, A1 and A2 seg ments are patent. Narrowing versus stenosis of the right A1 segment is noted. No additional stenoses are identified although sensitivity is diminished on this exam. No intracranial aneurysm. No central vessel occlusion. IMPRESSION: 1. Exam moderately compromised by motion artifact. No central vessel occlusion. No intracranial aneur ysm. 2. Diminutive right A1 segment. This could be congenital or represent a stenosis. ACT 112: Negative or not required by law. Electronically signed by: Jonathan An M.D. 10/24/2022 2:32 PM
--- NOTE | 2022-10-24 15:24 | Cardiology Consultation ---
Date of Consultation October 24, 2022 Assessment & Plan (1) Stress-induced cardiomyopathy: Given similar presentation of markedly reduced LV systolic function in the context of acute illness in 2009 with subsequent normalization of wall motion and LV systolic function, suspect that she may have had stress induced cardiomyopathy then and again currently. Her hospitalization 1 month ago for volume overload could have been the precipitating event. She has not had any more recent identifiable stress since that time, other than diagnosis of COVID-19, but this does not seem to be substantially symptomatic or causing any hemodynamic derangements of the degree that would be expected to cause stress-induced cardiomyopathy. Regardless of the timing of onset of her current wall motion abnormalities/LV dysfunction, she does not have any current symptoms to suggest ongoing myocardial ischemia, congestive heart failure, or dysrhythmia. Her coronary disease in the past was minimal and a dobutamine stress echocardiogram in 2017 was negative, doubt that her current echo findings are related to a classic infarct or occlusive coronary artery disease given the typical apical distribution of her wall motion abnormalities and the absence of chest pain or other symptoms expected if she had experienced extensive anteroapical classic myocardial infarction. However, since she does have diabetes and other vascular risk factors, an age-indeterminate anteroapical infarct secondary to occluded LAD cannot be excluded. Her troponin is flat to slightly declining, weighing against an acute cardiac event over the past day or so. More likely, the enzyme elevation is due to demand ischemia in patient with reduced systolic function and moderate valvular disease who may have some hemodynamic lability secondary to waxing and waning mental status changes. She is already anticoagulated with apixaban and is also taking clopidogrel (likely due to prior CVA), given low likelihood this represents acute coronary syndrome with an absence of symptoms or dynamic ECG changes, further aspirin dosing is not immediately necessary. She has a history of statin cardiomyopathy and is not routinely on a statin (even after her 2017 CVA), doubt she will be able to take a statin long-term. (2) CAD (coronary artery disease): Minimal disease in the past, but she does have vascular risk factors. She is on clopidogrel and a statin was added (as noted, she may not tolerate this). Would follow her troponin curve and repeat echocardiogram in a few days, if marked improvement in wall motion abnormality this would strongly indicate stress- induced cardiomyopathy, if no change in wall motion may need to consider further evaluation of coronary arteries. (3) Hypertension: Currently normotensive. Given reduced LV systolic function aggressive BP control is warranted. Continue carvedilol 50 mg twice daily. If BP remains normal to high normal, could consider introducing low-dose Entresto at some point. (4) Acute alteration in mental status: Evaluation underway. Brain MRI unrevealing. (5) CKD (chronic kidney disease), stage IV: Undergoes routine hemodialysis. History of Present Illness Reason for Consultation: apical akinesis, elevated troponin, ? Takotsubo Requesting Physician: Carmenza Rosario DO Attending Physician: Carmenza Rosario DO History of Present Illness 67-year-old woman with waxing and waning mental status (dementia/delirium), DM (on insulin), ESRD (hemodialysis), basal ganglia CVA 2016, recent superficial thrombosis of left lower extremity (on apixaban), and history of transient cardiomyopathy with only minimal coronary artery disease at catheterization 2009 (likely Takotsubo/stress cardiomyopathy given subsequent normalization of wall motion abnormalities and LV systolic function), who was admitted after increased confusion/decline in mental status was noted recently. Evaluation at [facility] notable for initial troponins of 233 and 214. ECG showed sinus rhythm at 83 bpm with LVH and repolarization abnormality and minor ST depression inferiorly which is unchanged compared with a 09/16/2022 ECG. Review of 2010 record shows that her ejection fraction was as low as 15% and catheterization showed only minimal coronary artery disease. A subsequent dobutamine stress echocardiogram in 2016 showed normal LV systolic function and no evidence of ischemia. An echocardiogram in 2020 showed EF of 50 to 55% with moderate pulmonary hypertension but no significant valvular disease. Current echocardiogram shows EF 25 to 30% with extensive anteroapical akinesis, mild to moderate valvular aortic stenosis, moderate mitral regurgitation, and moderate pulmonary hypertension. After hospitalization 1 month ago for volume overload due to several missed dialysis sessions, she was discharged to [facility] where she undergoes regular hemodialysis and had been noted to have waxing and waning mental status, however there is no mention of any dyspnea, chest pain, or any other cardiopulmonary complaints. The patient herself lacks insight but upon inquiry she also denies any recollection of chest pain or dyspnea and she felt quite comfortable lying flat and had no somatic complaints (other than chronic sacral area discomfort) at the time of my evaluation. Allergies Allergy/AdvReac Type Severity Reaction Status Date / Time dulaglutide [From [facility]] Allergy Intermediate Hives Verified 10/22/22 12:47 atorvastatin AdvReac Intermediate Joint Pain Verified 10/22/22 12:47 erythromycin base AdvReac Intermediate Vomiting Verified 10/22/22 12:47 Home Medications Medication Instructions Recorded Confirmed Type blood-glucose sensor (Dexcom G6 #3 ea 06/24/21 10/22/22 Rx Sensor device) blood-glucose transmitter (Dexcom #1 ea 06/24/21 10/22/22 Rx G6 Transmitter device) carvedilol 25 mg tablet (Coreg) 50 mg PO BID #360 tabs 11/24/21 10/24/22 Rx blood-glucose meter (OneTouch #1 ea 11/25/21 10/22/22 Rx Ultra2 Meter kit) lancets (OneTouch UltraSoft #200 ea 11/25/21 10/22/22 Rx Lancets) clopidogrel 75 mg tablet (Plavix) 75 mg PO QAM #90 tabs 08/06/22 10/24/22 Rx BD Ultra-Fine Gwen Pen Needle 32 #500 ea 08/10/22 10/22/22 Rx gauge x 5/32" (pen needle, diabetic) blood sugar diagnostic (OneTouch #200 ea 08/10/22 10/22/22 Rx Ultra Test strips) apixaban 2.5 mg tablet (Eliquis) 2.5 mg PO BID #60 tabs 08/28/22 10/24/22 Rx cholecalciferol (vitamin D3) 125 125 mcg PO DAILY #45 caps 09/07/22 10/24/22 Rx mcg (5,000 unit) capsule pantoprazole 40 mg tablet,delayed 40 mg PO QAM 09/16/22 10/24/22 History release molnupiravir 200 mg capsule (EUA) 800 mg PO Q12H 5 days #40 caps 10/19/22 10/24/22 Rx sevelamer carbonate 800 mg tablet 800 mg PO TID #270 tabs 10/20/22 10/24/22 Rx insulin aspart U-100 100 unit/mL 5 unit (0.05 mL) SC TIDM #15 mL 10/22/22 10/24/22 Rx (3 mL) subcutaneous pen (Novolog FlexPen U-100 Insulin aspart) insulin glargine 100 unit/mL 25 unit (0.25 mL) subcut HS #10 mL 10/22/22 10/24/22 Rx subcutaneous solution (Lantus U-100 Insulin) amlodipine 10 mg tablet 10 mg PO DAILY 10/24/22 10/24/22 History cinacalcet 30 mg tablet 0 mg PO 3XWK 10/24/22 History insulin aspart U-100 100 unit/mL See Rx Instructions .Route 10/24/22 10/24/22 History (3 mL) subcutaneous pen (Novolog .COMPLEX PRN Other FlexPen U-100 Insulin aspart) loperamide 2 mg capsule 0 mg PO Q4H PRN loose stool 10/24/22 History vitamin B complex and vitamin C 0 cap PO QAM 10/24/22 History no.20-folic acid 1 mg capsule (Renal Caps) Patient History Medical History Anemia Background diabetic retinopathy associated with type 2 diabetes mellitus CAD (coronary artery disease) Non obstructive (August 2009) per cardio records CKD (chronic kidney disease), stage IV Hemodialysis MWF Diabetes type 2, uncontrolled Diabetic nephropathy associated with type 2 diabetes mellitus Dyslipidemia ESRD (end stage renal disease) GERD (gastroesophageal reflux disease) History of CVA (cerebrovascular accident) (2016) Hx of Lyme disease Hypertension Mitral regurgitation Morbid obesity Nocturnal hypoxemia Nonischemic cardiomyopathy Osteopenia Primary hyperparathyroidism Subclinical hypothyroidism TSH 5.180 in 01/2021 Traumatic ulcer of left lower leg Vitamin D deficiency Vocal cord paralysis syndrome Surgical History Difficult airway for intubation PT STATES HAS HAD VOCAL CORD PARAYSIS IN PAST Fiberoptic intubation used with 10/2019 lap odalis History of cataract surgery RT/LEFT History of vascular access device 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 (USING FOR DIALYSIS) Hx of colonoscopy Hx of eye surgery EYE MUSCLE REPAIR Hx of tonsillectomy Hx of tubal ligation S/P cardiac catheterization OVER 10 YEARS AGO/NO STENTS Status post laparoscopic cholecystectomy (10/07/19) [place] teeth removed Family History Father Family history of diabetes mellitus Aunt Family history of diabetes mellitus Uncle Family history of diabetes mellitus Brother Family history of diabetes mellitus Brother Family history of diabetes mellitus Grandmother (Maternal) Family hx of colon cancer Other Alzheimer disease Coronary heart disease No family history of adverse response to anesthesia Social History Smoking Status: Unknown if ever smoked Tobacco Type: Cigarettes Second Hand Exposure: No; Do You Dip or Chew Tobacco: No; Hx Alcohol Use: No Hx Substance Use: No Preferred Language: Stateless Communication Ability: Effective Visual Impairment: No Limitations Hearing Ability: Normal Artificial Stone Applicator Required: No Beliefs That Will Affect Care: None marital status: Current Living Situation: Skilled Nursing Current Living Situation Comment: Resides at [facility]. Other Information That Helps Us Care for You: No Feels Safe at Home: Yes Diet: low salt and vegetarian caffeine: Yes Seatbelt Use: always Assistive Devices: Wheelchair Physical Exam Physical Exam: Adult white female who appears comfortable, watching television. BMI 30.7. BP normotensive. Pulse 90 bpm and regular. Skin: no ecchymoses or generalized lesions. HEENT: unremarkable. Neck: JVP at the clavicle at 90 degrees, no carotid bruits. Lungs: clear bilaterally. Cardiac: regular rhythm, normal S1-2, 3/6 apical holosystolic murmur rating to the axilla, no diastolic murmur. Abdomen: benign. Extremities: Trace pretibial edema with some erythema and mild vesiculations left lower pretibial region, brisk radial and palpable dorsalis pedis pulses. Neurologic: Pleasant affect, limited insight, answers simple questions appropriately, grossly nonfocal. Results & Data Laboratory Results Normal electrolytes, BUN 48, creatinine 4.45. Troponin as per HPI. Diagnostic Findings ECG and echo as per HPI Chest x-ray showed cardiomegaly with some pulmonary vascular congestion but no pulmonary edema. Brain MRI showed no acute findings. Old left basal ganglia infarct. MRA of the neck was technically compromised but showed no obvious stenoses. PG Care Time/CCT Total # of Minutes Spent Total Time Spent with Patient: Total time spent is greater than 50% in coordination of care (as documented) at patient's floor/unit and/or counseling patient: Coding Level of Care Code 72400 IN/OBS CONSULT LVL 5,80M Diagnoses Stress-induced cardiomyopathy I51.81 CAD (coronary artery disease) I25.10 Hypertension I10 Hypertension type: essential hypertension Acute alteration in mental status R41.82 CKD (chronic kidney disease), stage IV N18.4 (3) Hypertension Hypertension type: essential hypertension Qualified Code(s): I10 - Essential (primary) hypertension
[2022-10-24] MEDS: MENTHOL-ZINC OXIDE 360 APPLN/120 GM TUBE EXT SCH (15:51)
[2022-10-24] MEDS: APIXABAN 2.5 MG TAB PO SCH (20:52)
[2022-10-24] MEDS ORDERED: LANTUS PER UNIT CHARGE SQ SCH (21:00)
[2022-10-24] MEDS ORDERED: LANTUS PER UNIT CHARGE SQ ONE (21:11)
[2022-10-25] MEDS: MENTHOL-ZINC OXIDE 360 APPLN/120 GM TUBE EXT SCH ×3 (00:08→16:51)
[2022-10-25] MEDS: ACETAMINOPHEN 325 MG TAB PO PRN (00:37)
[2022-10-25] MEDS: MELATONIN 3 MG TAB PO PRN (00:37)
[2022-10-25] MEDS ORDERED: MoRPHine SULFATE 2 MG/ML CARP IV STA (03:02)
[2022-10-25] MEDS ORDERED: HYDROmorphone INJ 0.5 MG/0.5 ML SYR IV STA (05:27)
--- NOTE | 2022-10-25 07:43 | Hospitalist Progress Note ---
Date of Service October 25, 2022 Assessment & Plan (1) Non-ST elevation RI (NSTEMI): Plan: Presents with elevated troponin 200s, no chest pain or SOB at time of interview, downtrending EKG with ST depressions in inferior leads (chronic EKG finding) Echo 10/24 with EF 25 to 30% with extensive anteroapical akinesis, mild to moderate valvular , moderate MR, and moderate pulmonary HTN Hx of nonischemic cardiomyopathy in 2009, suspect similar this admission (stress-induced/Takotsubo in setting of acute COVID-19 illness), though has Hx CAD on chart as well Has intolerance to atorvastatin (statin cardiomyopathy), therefore statin deferred BP normotensive, continue home amlodipine and Coreg Continue Plavix Cardiology consulted, appreciate recommendations, follow up Echo tomorrow (2) Acute alteration in mental status: Plan: Recently has been very isolated at her facility due to COVID-19 diagnosis, with waxing and waning mental status (specifically worst on waking). CT head without evidence of CVA; MRI/MRA also without evidence of CVA (somewhat motion degraded study). UA, CXR, WBC count not suggestive of acute bacterial infection but positive for COVID-19 on 10/17 at personal care facility. feels symptoms started around when she started Lagevrio for COVID, will not continue this as patient has no respiratory symptoms and received 4 days of medication. (3) COVID-19: Plan: Tested positive 10/17 at [facility], also positive on admission testing 10/24. Per Infection Control can come off of isolation precautions on 10/27 (4) Diabetes type 2, uncontrolled: Plan: BSG in 60s this afternoon, defer insulin for now with BSG checks over next 12-24 hours and can add SSI depending on values. Last A1c 10.9% in September; suspect high carb load in home diet given mismatch in BSGs with DM2 diet here. (5) Superficial thrombosis of left lower extremity: Plan: History of in August, supposed to have follow up with Dr. Abel, discuss with Cards this admission if needs to continue this medication (originally per notes was supposed to be 1 month of medication). Plan PT and OT recommending SF. Can return to personal care facility if they have skilled capabilities in next 24 to 48 hours pending Echo tomorrow AM, otherwise will need other placement. Admission and Anticipated Discharge Date Admission Date: October 24, 2022 Subjective No overnight events. Patient reports resolution in limbg weakness today. Denies other symptoms such as pain or SOB. Review of Systems Review of Systems: All systems reviewed & are unremarkable except as noted in Subjective Physical Exam Constitutional: WD/WN, vitals as above Respiratory: normal respiratory effort, lungs clear to auscultation Cardiovascular: RRR, apical systolic murmur, no peripheral edema Gastrointestinal (Abdomen): normal bowel sounds, soft, nontender, no hepatosplenomegaly Skin: no rashes, warm and dry Neurologic: No facial droop, no slurred speech, no strength deficit noted of the upper arms or face Bilateral LE weak Psychiatric: A+Ox3, euthymic affect (confused at times, redirectable) Results & Data Results & Data Vital Signs (Past 12 Hours) Vital Signs Temp Pulse Pulse Resp BP Pulse Ox O2 Del Method 10/25/22 03:15 36.9 C 84 18 102/65 94 Room Air 10/24/22 23:28 37.1 C 85 20 104/64 95 Room Air 10/24/22 22:44 83 10/24/22 20:00 Room Air PG Care Time/CCT Total # of Minutes Spent Total Time Spent with Patient: Total time spent is greater than 50% in coordination of care (as documented) at patient's floor/unit and/or counseling patient: Coding Level of Care Code 27589 SUB INP/OBS CARE 3/50MIN Diagnoses Non-ST elevation RI (NSTEMI) I21.4 Acute alteration in mental status R41.82 COVID-19 U07.1 Diabetes type 2, uncontrolled E11.65 Superficial thrombosis of left lower extremity I82.812
[2022-10-25] MEDS: INSULIN ASPART PER UNIT CHARGE SC SCH ×3 (08:53→19:06)
[2022-10-25] MEDS ORDERED: PANTOprazole 40 MG TAB PO SCH (09:00)
[2022-10-25] MEDS: CLOPIDOGREL BISULFATE 75 MG TAB PO SCH (09:00)
[2022-10-25] MEDS: SEVELAMER HCL 800 MG TABLET PO SCH ×3 (09:00→17:41)
[2022-10-25] MEDS: CHOLECALCIFEROL 5,000 UNITS 125 MCG TAB PO SCH (09:00)
[2022-10-25] MEDS ORDERED: ROSUVASTATIN CALCIUM 20 MG TAB PO SCH (09:00)
[2022-10-25] MEDS: APIXABAN 2.5 MG TAB PO SCH ×2 (09:00→20:15)
--- NOTE | 2022-10-25 09:41 | Cardiology Progress Note ---
Date of Service October 25, 2022 Assessment & Plan (1) Stress-induced cardiomyopathy: Plan: Incidentally noted significant echocardiographic wall motion abnormalities with moderate but flat troponin curve in the absence of any symptoms and given her past history of transient/resolved nonischemic cardiomyopathy (? Stress-induced cardiomyopathy), suspect she may have had a similar phenomena during her hospitalization last month for acute volume overload. Less likely, unrecognized acute myocardial infarction, however no symptoms to suggest this. Continue apixaban and clopidogrel. Initiated on statin, she has a history of statin myopathy and may not tolerate this long-term, if echocardiogram shows improvement would discontinue statin, since spontaneous resolution of wall motion would make stress-induced cardiomyopathy almost certainly the diagnosis. No evidence of CHF, dysrhythmia, or ongoing myocardial ischemia. Check repeat echocardiogram tomorrow, further recommendations at that time. (2) CAD (coronary artery disease): Plan: Minimal/nonocclusive in the past. Management as above. (3) Hypertension: Plan: Currently normotensive. Given reduced LV systolic function aggressive BP control is warranted. Continue carvedilol 50 mg twice daily. If BP remains normal to high normal, could consider introducing low-dose Entresto at some point, but would first check echo tomorrow. (4) Acute alteration in mental status: Plan: Evaluation underway. Brain MRI unrevealing. (5) CKD (chronic kidney disease), stage IV: Plan: Undergoes routine hemodialysis. Admission and Anticipated Discharge Date Admission Date: October 24, 2022 Subjective No complaints, she feels well. Denies chest pain, dyspnea, palpitations, or any other somatic complaints. Telemetry showed sinus rhythm in the 70 bpm range. No significant ectopy or dysrhythmia. Physical Exam Physical Exam: Appears comfortable. Normotensive. Pulse 72 bpm and regular. Not examined (COVID-positive) Results & Data Vital Signs (Past 12 Hours) Vital Signs Temp Pulse Pulse Resp BP Pulse Ox O2 Del Method 10/25/22 08:14 73 10/25/22 07:47 98.4 F 70 16 107/65 92 Room Air 10/25/22 03:15 98.4 F 84 18 102/65 94 Room Air 10/24/22 23:28 98.8 F 85 20 104/64 95 Room Air 10/24/22 22:44 83 PG Care Time/CCT Total # of Minutes Spent Total Time Spent with Patient: Total time spent is greater than 50% in coordination of care (as documented) at patient's floor/unit and/or counseling patient: Coding Level of Care Code 34148 SUB INP/OBS CARE 2/35MIN Diagnoses Stress-induced cardiomyopathy I51.81 CAD (coronary artery disease) I25.10 Hypertension I10 Hypertension type: essential hypertension Acute alteration in mental status R41.82 CKD (chronic kidney disease), stage IV N18.4 (3) Hypertension Hypertension type: essential hypertension Qualified Code(s): I10 - Essential (primary) hypertension
[2022-10-25] MEDS: ONDANSETRON INJ 2 MG/ML 2 ML VIAL IV PRN (20:03)
[2022-10-26] MEDS: MENTHOL-ZINC OXIDE 360 APPLN/120 GM TUBE EXT SCH ×3 (00:06→16:10)
[2022-10-26] MEDS ORDERED: HYDROmorphone INJ 0.5 MG/0.5 ML SYR IV STA (02:25)
[2022-10-26] MEDS: MELATONIN 3 MG TAB PO PRN (02:34)
[2022-10-26] MEDS: ACETAMINOPHEN 325 MG TAB PO PRN ×2 (02:34→13:49)
[2022-10-26] MEDS: ONDANSETRON INJ 2 MG/ML 2 ML VIAL IV PRN (04:03)
[2022-10-26] MEDS: SEVELAMER HCL 800 MG TABLET PO SCH (07:21)
--- NOTE | 2022-10-26 09:05 | XCELERA ---
[id number]
[2022-10-26] MEDS: APIXABAN 2.5 MG TAB PO SCH ×2 (09:19→21:17)
[2022-10-26] MEDS: CHOLECALCIFEROL 5,000 UNITS 125 MCG TAB PO SCH (09:19)
[2022-10-26] MEDS: CLOPIDOGREL BISULFATE 75 MG TAB PO SCH (09:19)
[2022-10-26] MEDS ORDERED: SODIUM CHLORIDE 0.9% 1000ML 1,000 ML IV PRN (10:07)
--- NOTE | 2022-10-26 10:34 | Nephrology Consultation ---
Date of Consultation October 26, 2022 Assessment & Plan (1) ESRD (end stage renal disease): * Will order stat CBC, PRP this am * Will provide HD today according to chronic, outpatient orders * Outpatient HD: [facility] MWF 3.5hr 2k 2Ca HCO3 38 Na 138 Revaclear 300 dialyzer Qb400/Qd500 EDW 88.5kg * Hold Sevelamer and Sensipar while ill and low oral intake * Monitor PRP (2) COVID-19: * Initial diagnosis 10/17/22 at [facility] * Continue supportive care (3) Non-ST elevation WA (NSTEMI): * Troponin trending down (4) Nonischemic cardiomyopathy: * 10/26/22 echocardiogram: LVEF 25-30%, anterior/septal and apical wall akinesis (5) Diabetes type 2, uncontrolled: History of Present Illness Reason for Consultation: ESKD on HD Attending Physician: Ky Bolden MD History of Present Illness Mrs. Reyna is a 67 year old white female who is seen at the request of the [facility] Hospitalist Service to provide inpatient HD and assist w/ medical management. Information for the HPI is obtained from interviewing the patient, review of EMR and is summarized as follows: Mrs. Reyna has ESKD due to diabetic nephropathy. Her primary Hamper Maker is Dr. Garcia. Mrs. Reyna is on IHD MWF at [facility] (3.5 hr, Revaclear 300 dialyzer, Na140/2K 2Ca/HCO3 32, EDW 88.5kg, R IJ TCC). Her medical history is significant for AODM, HTN, ASCVD. Mrs. Reyna has recently suffered a progressive decline in functional status. She is now a resident at [facility]. On 10/17/22 she tested + for COVID and has been on Paxlovid. Mrs. Reyna was transferred to [facility] for evaluation of hypoxia and MS changes (EMD documents HR 20's w/ SaO2 60's at skilled nursing). In EMD ECG was NSR w/ inferior and lateral ST depression, troponin 233.4. Head CT was negative for CVA, CXR revealed pulmonary congestion without overt CHF. Cardiology consultation included echocardiogram that revealed LVEF 25-30%, anterior/septal and apical wall akinesis. Allergies Allergy/AdvReac Type Severity Reaction Status Date / Time dulaglutide [From Trulicity] Allergy Intermediate Hives Verified 10/22/22 12:47 atorvastatin AdvReac Intermediate Statin Verified 10/24/22 16:03 Cardiomyopathy erythromycin base AdvReac Intermediate Vomiting Verified 10/22/22 12:47 Home Medications Medication Instructions Recorded Confirmed Type blood-glucose sensor (Dexcom G6 #3 ea 06/24/21 10/22/22 Rx Sensor device) blood-glucose transmitter (Dexcom #1 ea 06/24/21 10/22/22 Rx G6 Transmitter device) carvedilol 25 mg tablet (Coreg) 50 mg PO BID #360 tabs 11/24/21 10/24/22 Rx blood-glucose meter (OneTouch #1 ea 11/25/21 10/22/22 Rx Ultra2 Meter kit) lancets (OneTouch UltraSoft #200 ea 11/25/21 10/22/22 Rx Lancets) clopidogrel 75 mg tablet (Plavix) 75 mg PO QAM #90 tabs 08/06/22 10/24/22 Rx BD Ultra-Fine Gwen Pen Needle 32 #500 ea 08/10/22 10/22/22 Rx gauge x 5/32" (pen needle, diabetic) blood sugar diagnostic (OneTouch #200 ea 08/10/22 10/22/22 Rx Ultra Test strips) apixaban 2.5 mg tablet (Eliquis) 2.5 mg PO BID #60 tabs 08/28/22 10/24/22 Rx cholecalciferol (vitamin D3) 125 125 mcg PO DAILY #45 caps 09/07/22 10/24/22 Rx mcg (5,000 unit) capsule pantoprazole 40 mg tablet,delayed 40 mg PO QAM 09/16/22 10/24/22 History release molnupiravir 200 mg capsule (EUA) 800 mg PO Q12H 5 days #40 caps 10/19/22 10/24/22 Rx sevelamer carbonate 800 mg tablet 800 mg PO TID #270 tabs 10/20/22 10/24/22 Rx insulin aspart U-100 100 unit/mL 5 unit (0.05 mL) SC TIDM #15 mL 10/22/22 10/24/22 Rx (3 mL) subcutaneous pen (Novolog FlexPen U-100 Insulin aspart) insulin glargine 100 unit/mL 25 unit (0.25 mL) subcut HS #10 mL 10/22/22 10/24/22 Rx subcutaneous solution (Lantus U-100 Insulin) amlodipine 10 mg tablet 10 mg PO DAILY 10/24/22 10/24/22 History cinacalcet 30 mg tablet 0 mg PO 3XWK 10/24/22 History insulin aspart U-100 100 unit/mL See Rx Instructions .Route 10/24/22 10/24/22 History (3 mL) subcutaneous pen (Novolog .COMPLEX PRN Other FlexPen U-100 Insulin aspart) loperamide 2 mg capsule 0 mg PO Q4H PRN loose stool 10/24/22 History vitamin B complex and vitamin C 0 cap PO QAM 10/24/22 History no.20-folic acid 1 mg capsule (Renal Caps) Patient History Medical History Anemia Background diabetic retinopathy associated with type 2 diabetes mellitus CAD (coronary artery disease) Non obstructive (August 2009) per cardio records CKD (chronic kidney disease), stage IV Hemodialysis MWF Diabetes type 2, uncontrolled Diabetic nephropathy associated with type 2 diabetes mellitus Dyslipidemia ESRD (end stage renal disease) GERD (gastroesophageal reflux disease) History of CVA (cerebrovascular accident) (2016) Hx of Lyme disease Hypertension Mitral regurgitation Morbid obesity Nocturnal hypoxemia Nonischemic cardiomyopathy Osteopenia Primary hyperparathyroidism Subclinical hypothyroidism TSH 5.180 in 01/2021 Traumatic ulcer of left lower leg Vitamin D deficiency Vocal cord paralysis syndrome Surgical History Difficult airway for intubation PT STATES HAS HAD VOCAL CORD PARAYSIS IN PAST Fiberoptic intubation used with 10/2019 lap odalis History of cataract surgery RT/LEFT History of vascular access device 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 (USING FOR DIALYSIS) Hx of colonoscopy Hx of eye surgery EYE MUSCLE REPAIR Hx of tonsillectomy Hx of tubal ligation S/P cardiac catheterization OVER 10 YEARS AGO/NO STENTS Status post laparoscopic cholecystectomy (10/07/19) [place] teeth removed Family History Father Family history of diabetes mellitus Aunt Family history of diabetes mellitus Uncle Family history of diabetes mellitus Brother Family history of diabetes mellitus Brother Family history of diabetes mellitus Grandmother (Maternal) Family hx of colon cancer Other Alzheimer disease Coronary heart disease No family history of adverse response to anesthesia Social History Smoking Status: Unknown if ever smoked Tobacco Type: Cigarettes Second Hand Exposure: No; Do You Dip or Chew Tobacco: No; Hx Alcohol Use: No Hx Substance Use: No Preferred Language: Mexican Communication Ability: Effective Visual Impairment: No Limitations Hearing Ability: Normal Grain Combine Driver Required: No Beliefs That Will Affect Care: None marital status: Current Living Situation: Custodial Current Living Situation Comment: Resides at [facility]. Other Information That Helps Us Care for You: No Feels Safe at Home: Yes Diet: low salt and vegetarian caffeine: Yes Seatbelt Use: always Assistive Devices: Wheelchair Review of Systems Constitutional: no fever Eyes: no problem reported Ear, Nose, Mouth, Throat: no problem reported Respiratory: no cough and no dyspnea Cardiovascular: no chest pain Gastrointestinal: no nausea, no vomiting and no diarrhea/loose stools Physical Exam Constitutional: + ill appearing; not in distress breathing comfortably flat in bed on RA, SaO2 92% Eyes: PERRL, conjunctivae normal, anicteric sclerae ENMT: Mouth: + dry oral mucous membranes Neck: trachea midline, no thyromegaly R IJ TCC with clean, dry dressing Respiratory: normal respiratory effort, lungs clear to auscultation Cardiovascular: RRR, no murmur, no edema Gastrointestinal (Abdomen): normal bowel sounds, soft, nontender, no hepatosplenomegaly Skin: + turgor decreased Neurologic: Speech / Cognition: normal speech and normal cognition Results & Data Vital Signs (Past 12 Hours) Vital Signs Temp Pulse Pulse Pulse Resp BP Pulse Ox 10/26/22 07:52 36.7 C 67 18 103/66 92 10/26/22 02:36 36.3 C L 72 18 97/61 L 93 10/25/22 23:27 36.8 C 73 18 103/67 95 10/25/22 22:52 71 O2 Del Method 10/26/22 07:52 Room Air 10/26/22 02:36 Room Air 10/25/22 23:27 Room Air 10/25/22 22:52 Laboratory Results Stat CBC, PRP ordered PG Care Time/CCT Total # of Minutes Spent Total Time Spent with Patient: Total time spent is greater than 50% in coordination of care (as documented) at patient's floor/unit and/or counseling patient: Coding Level of Care Code 67495 IN/OBS CONSULT LVL 5,80M Diagnoses ESRD (end stage renal disease) N18.6 COVID-19 U07.1 Non-ST elevation WA (NSTEMI) I21.4 Nonischemic cardiomyopathy I42.8 Diabetes type 2, uncontrolled E11.65
[2022-10-26 10:46] LABS: Hematocrit (blood only) 33.7 % (37.0-47.0); Hemoglobin 10.9 g/dl (12.0-16.0); Mean Corpuscular Hemoglobin 26.9 pg (25.0-34.0); Mean Corpuscular Hgb Conc 32.3 g/dL (32.0-36.0); Mean Corpuscular Volume 83.2 fL (80.0-100.0); Mean Platelet Volume 11.8 fL (9.4-12.4); Platelet Count 129 K/uL (130-400); RDW Coefficient of Variation 17.8 % (11.5-14.5); RDW Standard Deviation 53.9 fL (36.4-46.3); Red Blood Count 4.05 M/uL (4.20-5.40); White Blood Count 5.27 K/ul (4.8-10.8)
[2022-10-26 11:22] LABS: BUN Creatinine Ratio 12.4 (10-20); Calcium 9.8 mg/dl (8.6-10.3); Creatinine Clr Calc Pharmacy 9.1 ml/min; Est GFR (African American) 6.7 ml/min; Est GFR (Non-African American) 5.7 ml/min; Potassium 5.4 mmol/L (3.5-5.1)
[2022-10-26] MEDS: methylPREDNISolone 40 MG in SYRINGE 0 ML IV SCH ×2 (13:49→21:18)
--- NOTE | 2022-10-26 15:39 | Hospitalist Progress Note ---
Date of Service October 26, 2022 Assessment & Plan (1) Non-ST elevation TN (NSTEMI): Plan: Cardiology consultation and recommendations appreciated. 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 Continue Eliquis and Plavix for now. Troponin was minimally elevated but no acute chest pain. EKG with ST depressions in inferior leads (chronic EKG finding). Echo with EF 25 to 30% with extensive anteroapical akinesis, mild to moderate valvular , moderate MR, and moderate pulmonary HTN. Hx of nonischemic cardiomyopathy in 2009, suspect similar this admission (stress-induced/Takotsubo in setting of acute COVID-19 illness), though has Hx CAD on chart as well. Has intolerance to atorvastatin (statin cardiomyopathy), therefore statin deferred. BP normotensive, continue home amlodipine, plavix, and Coreg. (2) Acute alteration in mental status: Plan: Now resolved. This appears to have been acute metabolic encephalopathy present on admission. CT head without evidence of CVA. Brain MRI/MRA also without evidence of CVA. UA, CXR, WBC count not suggestive of acute bacterial infection but positive for COVID-19 on 10/17 at personal care facility. feels symptoms started around when she started Lagevrio for COVID. Will not continue this (3) COVID-19: Plan: Tested positive 10/17 at [facility], also positive on admission testing 10/24. Per Infection Control can come off of isolation precautions on 10/27. She is exhibiting symptoms of a viral illness. Parenteral Solu-Medrol should help and has been ordered (4) Diabetes type 2, uncontrolled: Plan: ADA diet. Insulin on hold due to hypoglycemia. Sliding scale insulin as needed (5) Superficial thrombosis of left lower extremity: Plan: Diagnosed several months ago. Not currently on systemic anticoagulation. Plan To be determined. PT and OT recommending SNF. Can return to personal care facility soon if they have skilled capabilities. Otherwise, SNF placement Admission and Anticipated Discharge Date Admission Date: October 24, 2022 Subjective Alert and oriented. She feels poorly with Malays of suspected viral etiology. She is recovering from a recent COVID diagnosis. Parenteral Solu-Medrol may help her feel better. Cardiac echo reveals left ventricular wall motion abnormalities with depressed ejection fraction of 25 to 30%. This is thought to be stress related cardiomyopathy of the Takotsubo variety. Review of Systems Review of Systems: Constitutional-no fever or chills. Malaise. Generalized weakness ENT-no blurred vision, no double vision, no epistaxis, no sore throat Respiratory-no cough, no wheezing, no shortness of breath Cardiac-no palpitations, no chest pain, no syncope GI-no nausea, vomiting, diarrhea, melena, hematochezia -no urinary retention, no urinary incontinence, no dysuria, no hematuria Musculoskeletal-generalized weakness and myalgias. Skin-no bruising, no rashes, no pruritus Neuro-generalized weakness. No focal deficits. Psych-depressed affect Physical Exam Physical Exam: General-alert and oriented x3. Malaise. HEENT-head atraumatic and normocephalic, pupils equal and reactive to light, extraocular muscles intact Neck-no lymphadenopathy or thyromegaly, trachea midline Chest-clear to auscultation percussion. No rales wheezing or rhonchi Cardiac-regular rate and rhythm, normal S1 and S2 Abdomen-normal bowel sounds, nontender, no hepatosplenomegaly Extremities-no cyanosis, clubbing, or edema Neuro-cranial nerves II through XII intact, motor and sensory function within normal limits, strength symmetrical with generalized weakness , no focal deficits Psych-depressed affect Results & Data Results & Data Vital Signs (Past 12 Hours) Vital Signs Temp Pulse Pulse Pulse Resp BP BP 10/26/22 15:00 74 116/66 10/26/22 14:30 79 121/72 10/26/22 14:00 70 120/66 10/26/22 13:38 36.6 C 74 10/26/22 11:52 36.6 C 73 19 121/66 10/26/22 07:52 36.7 C 67 18 103/66 Pulse Ox O2 Del Method 10/26/22 15:00 10/26/22 14:30 10/26/22 14:00 10/26/22 13:38 10/26/22 11:52 93 Room Air 10/26/22 07:52 92 Room Air Laboratory Results 10/26/22 10:21 10/26/22 10:21 PG Care Time/CCT Total # of Minutes Spent Total Time Spent with Patient: Total time spent is greater than 50% in coordination of care (as documented) at patient's floor/unit and/or counseling patient: Coding Level of Care Code 84700 SUB INP/OBS CARE 350MIN Diagnoses Non-ST elevation TN (NSTEMI) I21.4 Acute alteration in mental status R41.82 COVID-19 U07.1 Diabetes type 2, uncontrolled E11.65 Superficial thrombosis of left lower extremity I82.812
--- NOTE | 2022-10-26 17:09 | Cardiology Progress Note ---
Date of Service October 26, 2022 Assessment & Plan (1) Anteroapical myocardial infarction: Plan: Absence of wall motion improvement over the past 48 hours suggests that this could have been an unrecognized anteroapical infarct of uncertain timing rather than stress-induced cardiomyopathy. The fact that she previously had markedly reduced systolic function with subsequent normalization still raises the possibility that this is a nonischemic phenomenon. Nonetheless, best to assume that there was an infarct at some point, possibly during her last hospitalization for heart failure secondary to missed hemodialysis. Continue apixaban and clopidogrel, in the absence of evidence that this was a very recent event, role of aspirin is uncertain. Continue statin, although as noted she has history of statin induced cardiomyopathy. We will discuss with the patient's degree of aggressiveness desired before determining whether she should proceed to cardiac catheterization (which would most likely be on Wednesday so that she could receive post-cath dialysis). Given her dementia she would not likely be a CABG candidate and given the uncertain duration of her infarct the likelihood of percutaneous revascularization may be quite low as well. She has no evidence of ongoing myocardial ischemia, congestive heart failure, or dysrhythmias and may well be medically managed. Whether conventional infarct or stress-induced cardiomyopathy, she likely would benefit from beta-pepper protection. It does not appear that her home carvedilol was continued as an inpatient, given low normal blood pressures would be reasonable to instead initiate metoprolol tartrate 25 mg p.o. twice daily. (2) CAD (coronary artery disease): Plan: As above, discuss aggressiveness of care to determine whether further risk stratification is necessary. (3) Hypertension: Plan: BP normotensive to mildly diminished, as noted carvedilol was not continued, would recommend metoprolol. (4) Acute alteration in mental status: Plan: Back to baseline? (5) CKD (chronic kidney disease), stage IV: Plan: Undergoes routine hemodialysis (). Admission and Anticipated Discharge Date Admission Date: October 24, 2022 Subjective No complaints, uneventful night. No chest pain, dyspnea. Telemetry showed sinus rhythm in the 70 bpm range, no significant ectopy or dysrhythmia. Physical Exam Physical Exam: Appears comfortable. Normotensive. Pulse 72 bpm and regular. Alert and interactive. Not examined (COVID-positive) Results & Data Laboratory Results Sodium 138, chloride 95, potassium 5.4, BUN 84, creatinine a 6.8. PG Care Time/CCT Total # of Minutes Spent Total Time Spent with Patient: Total time spent is greater than 50% in coordination of care (as documented) at patient's floor/unit and/or counseling patient: Coding Level of Care Code 94552 SUB INP/OBS CARE 2/35MIN Diagnoses Anteroapical myocardial infarction I21.09 CAD (coronary artery disease) I25.10 Hypertension I10 Hypertension type: essential hypertension Acute alteration in mental status R41.82 CKD (chronic kidney disease), stage IV N18.4 (3) Hypertension Hypertension type: essential hypertension Qualified Code(s): I10 - Essential (primary) hypertension
[2022-10-26] MEDS: METOPROLOL TARTRATE 25 MG TAB PO SCH (20:33)
[2022-10-26] MEDS ORDERED: CINACALCET HCL 30 MG TAB PO SCH (21:00)
[2022-10-27] MEDS: MENTHOL-ZINC OXIDE 360 APPLN/120 GM TUBE EXT SCH ×4 (00:27→23:01)
[2022-10-27] MEDS: methylPREDNISolone 40 MG in SYRINGE 0 ML IV SCH ×2 (06:08→20:29)
[2022-10-27 07:10] LABS: Basophils # (auto) 0.01 K/uL (0-0.2); Basophils % (auto) 0.3 %; Hematocrit (blood only) 36.8 % (37.0-47.0); Hemoglobin 11.3 g/dl (12.0-16.0); Immature Granulocytes # (auto) 0.02 K/uL (0.01-0.20); Immature Granulocytes % (auto) 0.5 %; Lymphocytes # (auto) 0.63 K/uL (1.2-3.4); Lymphocytes % (auto) 17.3 %; Mean Corpuscular Hemoglobin 26.5 pg (25.0-34.0); Mean Corpuscular Hgb Conc 30.7 g/dL (32.0-36.0); Mean Corpuscular Volume 86.4 fL (80.0-100.0); Mean Platelet Volume 11.7 fL (9.4-12.4); Monocytes # (auto) 0.19 K/uL (0.11-0.59); Monocytes % (auto) 5.2 %; Neutrophils # (auto) 2.79 K/uL (1.40-6.50); Neutrophils % (auto) 76.7 %; Platelet Count 154 K/uL (130-400); RDW Coefficient of Variation 17.6 % (11.5-14.5); RDW Standard Deviation 55.8 fL (36.4-46.3); Red Blood Count 4.26 M/uL (4.20-5.40); White Blood Count 3.64 K/ul (4.8-10.8)
[2022-10-27 07:39] LABS: BUN Creatinine Ratio 12.1 (10-20); Calcium 10.1 mg/dl (8.6-10.3); Creatinine Clr Calc Pharmacy 13.4 ml/min; Est GFR (African American) 10.6 ml/min; Est GFR (Non-African American) 9.1 ml/min; Potassium 5.5 mmol/L (3.5-5.1)
[2022-10-27] MEDS ORDERED: INSULIN ASPART PER UNIT CHARGE SC STA (08:03)
[2022-10-27] MEDS ORDERED: GLUCAGON FOR INJ 1 MG VIAL SQ PRN (08:03)
[2022-10-27] MEDS ORDERED: CARBOHYDRATES FOR HYPOGLYCEMIA PO PRN (08:03)
[2022-10-27] MEDS ORDERED: GLUCOSE 10 TAB/TUBE PO PRN (08:03)
[2022-10-27] MEDS ORDERED: DEXTROSE 50% 50 ML SYRINGE IV PRN (08:03)
[2022-10-27] MEDS ORDERED: GLUCOSE 40% GEL 15 GM TUBE PO PRN (08:03)
[2022-10-27] MEDS: CLOPIDOGREL BISULFATE 75 MG TAB PO SCH (08:26)
[2022-10-27] MEDS: APIXABAN 2.5 MG TAB PO SCH ×2 (08:26→21:11)
[2022-10-27] MEDS: CHOLECALCIFEROL 5,000 UNITS 125 MCG TAB PO SCH (08:26)
[2022-10-27] MEDS: METOPROLOL TARTRATE 25 MG TAB PO SCH (08:29)
--- NOTE | 2022-10-27 08:49 | Nephrology Progress Note ---
Date of Service October 27, 2022 Assessment & Plan (1) ESRD (end stage renal disease): Plan: * Outpatient HD: [facility] MWF 3.5hr 2k 2Ca HCO3 38 Na 138 Revaclear 300 dialyzer Qb400/Qd500 EDW 88.5kg * Hold Sevelamer and Sensipar while ill and low oral intake * Clinically euvolemic, breathing comfortably on RA w/ SaO2 93% * Mild hyperkalemia this morning related to hyperglycemia and metabolic acidosis * Will provide 3 amps NaHCO3 IV in 1 L sterile water today and provide Lokelma 10 g po x3 * Defer management of hyperglycemia to primary service * Cardiology note reviewed. Possible cardiac cath tomorrow * Order PRP for am and schedule HD for after cardiac procedure (2) COVID-19: Plan: * Initial diagnosis 10/17/22 at personal correction * Continue supportive care (3) Non-ST elevation HI (NSTEMI): Plan: * Troponin trending down (4) Nonischemic cardiomyopathy: Plan: * 10/26/22 echocardiogram: LVEF 25-30%, anterior/septal and apical wall akinesis (5) Diabetes type 2, uncontrolled: Plan: * Defer management to primary service Admission and Anticipated Discharge Date Admission Date: October 24, 2022 Subjective Mrs. Reyna was evaluated in her hospital room this morning. Her was at bedside. She was dialyzed yesterday for 1 L UF without complication using her R IJ TCC. Mrs. Reyna was breathing comfortably flat in bed on RA. She denied angina Review of Systems Constitutional: no fever Eyes: no problem reported Ear, Nose, Mouth, Throat: no problem reported Respiratory: no cough and no dyspnea Cardiovascular: no chest pain Gastrointestinal: no nausea, no vomiting and no diarrhea/loose stools Physical Exam Constitutional: + ill appearing; not in distress Eyes: PERRL, conjunctivae normal, anicteric sclerae ENMT: Mouth: + dry oral mucous membranes Neck: trachea midline, no thyromegaly Respiratory: normal respiratory effort, lungs clear to auscultation Cardiovascular: RRR, no murmur, no edema Extremities: + AV fistula (R arm AVF + bruit) Gastrointestinal (Abdomen): normal bowel sounds, soft, nontender, no hepatosplenomegaly Skin: + turgor decreased Neurologic: Speech / Cognition: normal speech and normal cognition Results & Data Vital Signs (Past 12 Hours) Vital Signs Temp Pulse Pulse Pulse Resp BP Pulse Ox 10/27/22 07:45 36.9 C 82 19 128/79 93 10/27/22 07:00 83 10/27/22 03:08 36.6 C 82 14 130/79 95 10/26/22 23:48 87 10/26/22 22:54 36.6 C 82 116/76 95 O2 Del Method 10/27/22 07:45 Room Air 10/27/22 07:00 10/27/22 03:08 Room Air 10/26/22 23:48 10/26/22 22:54 Room Air Laboratory Results Laboratory Tests 10/26/22 10/27/22 10/27/22 10:21 06:47 06:47 WBC 5.27 3.64 L Hgb 10.9 L 11.3 L Hct 33.7 L 36.8 L Plt Count 129 L 154 Sodium 134 L Potassium 5.5 H Chloride 96 L Carbon Dioxide 17 L Creatinine 4.63 H* D Glucose 439 H* Calcium 10.1 PG Care Time/CCT Total # of Minutes Spent Total Time Spent with Patient: Total time spent is greater than 50% in coordination of care (as documented) at patient's floor/unit and/or counseling patient: Coding Level of Care Code 07068 SUB INP/OBS CARE 3/50MIN Diagnoses ESRD (end stage renal disease) N18.6 COVID-19 U07.1 Non-ST elevation [place] (NSTEMI) I21.4 Nonischemic cardiomyopathy I42.8 Diabetes type 2, uncontrolled E11.65
[2022-10-27] MEDS: SODIUM BICARBONATE 8.4% 150 MEQ in WATER, STERILE 1,000 ML IV SCH (11:14)
[2022-10-27] MEDS: SODIUM ZIRCONIUM CYCLOSILICATE 10 GM PACKET PO SCH ×3 (11:14→20:27)
--- NOTE | 2022-10-27 12:09 | Cardiology Progress Note ---
Date of Service October 27, 2022 Assessment & Plan (1) Anteroapical myocardial infarction: Plan: The fact that she previously had markedly reduced systolic function with subsequent normalization still raises the possibility that this is a nonischemic phenomenon, but at this point must assume that she had some sort of anteroapical infarct of uncertain timing rather than stress-induced cardiomyopathy. Fortunately, no evidence of ongoing myocardial ischemia, congestive heart failure, or dysrhythmia. Continue apixaban and clopidogrel, in the absence of evidence that this was a very recent event, no need to initiate aspirin. Given her history of statin induced cardiomyopathy, although statin may have mortality benefits it would be reasonable to forego statin use to avoid diminishing her quality of life. To treat both post infarct and possible stress-induced cardiomyopathy would continue metoprolol, for ease of administration could change from metoprolol to tartrate 25 mg twice daily to metoprolol succinate 50 mg daily. As noted, medical management will be pursued, no plans for cardiac catheterization. (2) CAD (coronary artery disease): (3) Hypertension: (4) Acute alteration in mental status: (5) CKD (chronic kidney disease), stage IV: Plan We will sign off. Please arrange for cardiology follow-up on a routine basis with Dr. Spencer Montes, her primary healthcare science specialist. Admission and Anticipated Discharge Date Admission Date: October 24, 2022 Subjective Patient comfortable and interactive. No complaints, denies chest pain, dyspnea, subjective palpitations, or lightheadedness. Dr. Montes spoke with the patient's , medical management preferred over invasive strategy (no cardiac catheterization planned). Telemetry showed sinus rhythm in the 80 bpm range. Physical Exam Physical Exam: Appears comfortable. Normotensive. Pulse 85 bpm and regular. Alert and interactive. Not examined (recent COVID-positive) Results & Data Vital Signs (Past 12 Hours) Vital Signs Temp Pulse Pulse Pulse Resp BP Pulse Ox 10/27/22 11:30 98.4 F 85 19 114/62 94 10/27/22 07:45 98.4 F 82 19 128/79 93 10/27/22 07:00 83 10/27/22 03:08 97.9 F 82 14 130/79 95 O2 Del Method 10/27/22 11:30 Room Air 10/27/22 07:45 Room Air 10/27/22 07:00 10/27/22 03:08 Room Air Laboratory Results Sodium 134, chloride 96, potassium 5.5, BUN 56, creatinine 4.63. PG Care Time/CCT Total # of Minutes Spent Total Time Spent with Patient: Total time spent is greater than 50% in coordination of care (as documented) at patient's floor/unit and/or counseling patient: Coding Level of Care Code 94858 SUB INP/OBS CARE 2/35MIN Diagnoses Anteroapical myocardial infarction I21.09 CAD (coronary artery disease) I25.10 Hypertension I10 Hypertension type: essential hypertension Acute alteration in mental status R41.82 CKD (chronic kidney disease), stage IV N18.4 (3) Hypertension Hypertension type: essential hypertension Qualified Code(s): I10 - Essential (primary) hypertension
[2022-10-27] MEDS: INSULIN ASPART PER UNIT CHARGE SC SCH ×3 (12:42→20:29)
--- NOTE | 2022-10-27 14:29 | Hospitalist Progress Note ---
Date of Service October 27, 2022 Assessment & Plan (1) Non-ST elevation [place] (NSTEMI): Plan: Cardiology consultation and recommendations appreciated. 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 Continue Eliquis and Plavix for now. Troponin was minimally elevated but no acute chest pain. EKG with ST depressions in inferior leads (chronic EKG finding). Echo with EF 25 to 30% with extensive anteroapical akinesis, mild to moderate valvular , moderate MR, and moderate pulmonary HTN. Hx of nonischemic cardiomyopathy in 2009, suspect similar this admission (stress-induced/Takotsubo in setting of acute COVID-19 illness), though has Hx CAD on chart as well. Has intolerance to atorvastatin (statin cardiomyopathy), therefore statin deferred. BP normotensive. Continue home amlodipine, plavix, and metoprolol. No heart catheterization planned for this admission (2) Acute alteration in mental status: Plan: Now resolved. This appears to have been acute metabolic encephalopathy present on admission. CT head without evidence of CVA. Brain MRI/MRA also without evidence of CVA. UA, CXR, WBC count not suggestive of acute bacterial infection but positive for COVID-19 on 10/17 at personal care facility. feels symptoms started around when she started Lagevrio for COVID. Will not continue this (3) COVID-19: Plan: Tested positive 10/17 at [facility], also positive on admission testing 10/24. Per In fection Control can come off of isolation precautions on 10/27. She is exhibiting symptoms of a viral illness. Parenteral Solu-Medrol has helped considerably. Dosage down titrated today, October 27. Eventual switch to oral prednisone tapering dose (4) Diabetes type 2, uncontrolled: Plan: ADA diet. Parenteral steroids have induced hyperglycemia. Continue sliding scale coverage. (5) Superficial thrombosis of left lower extremity: Plan: Diagnosed several months ago. Not currently on systemic anticoagulation. Plan SNF at discharge. Hopefully tomorrow, October 28 Admission and Anticipated Discharge Date Admission Date: October 24, 2022 Subjective Alert and oriented. She is feeling much better after addition of parenteral steroid therapy. It has aggravated her glucose levels however. Metoprolol tartrate switched to metoprolol succinate today. Isolation precautions have been discontinued. She is medically stable for discharge to SNF when arrangements are finalized. Cardiology entry noted. No heart catheterization planned this admission Review of Systems Review of Systems: Constitutional-no fever or chills. Malaise has improved considerably. Generalized weakness ENT-no blurred vision, no double vision, no epistaxis, no sore throat Respiratory-no cough, no wheezing, no shortness of breath Cardiac-no palpitations, no chest pain, no syncope GI-no nausea, vomiting, diarrhea, melena, hematochezia -no urinary retention, no urinary incontinence, no dysuria, no hematuria Musculoskeletal-generalized weakness and myalgias. Skin-no bruising, no rashes, no pruritus Neuro-generalized weakness. No focal deficits. Psych-depressed affect Physical Exam Physical Exam: General-alert and oriented x3. Malaise has improved considerably HEENT-head atraumatic and normocephalic, pupils equal and reactive to light, extraocular muscles intact Neck-no lymphadenopathy or thyromegaly, trachea midline Chest-clear to auscultation percussion. No rales wheezing or rhonchi Cardiac-regular rate and rhythm, normal S1 and S2 Abdomen-normal bowel sounds, nontender, no hepatosplenomegaly Extremities-no cyanosis, clubbing, or edema Neuro-cranial nerves II through XII intact, motor and sensory function within normal limits, strength symmetrical with generalized weakness , no focal defi cits Psych-depressed affect Results & Data Results & Data Vital Signs (Past 12 Hours) Vital Signs Temp Pulse Pulse Pulse Resp BP Pulse Ox 10/27/22 11:30 36.9 C 85 19 114/62 94 10/27/22 07:45 36.9 C 82 19 128/79 93 10/27/22 07:00 83 10/27/22 03:08 36.6 C 82 14 130/79 95 O2 Del Method 10/27/22 11:30 Room Air 10/27/22 07:45 Room Air 10/27/22 07:00 10/27/22 03:08 Room Air Laboratory Results 10/27/22 06:47 10/27/22 06:47 PG Care Time/CCT Total # of Minutes Spent Total Time Spent with Patient: Total time spent is greater than 50% in coordination of care (as documented) at patient's floor/unit and/or counseling patient: Coding Level of Care Code 92786 SUB INP/OBS CARE 3/50MIN Diagnoses Non-ST elevation AZ (NSTEMI) I21.4 Acute alteration in mental status R41.82 COVID-19 U07.1 Diabetes type 2, uncontrolled E11.65 Superficial thrombosis of left lower extremity I82.812
[2022-10-27] MEDS: METOPROLOL SUCC 50MG EXT REL TAB PO SCH (15:28)
[2022-10-27] MEDS: ACETAMINOPHEN 325 MG TAB PO PRN (21:11)
[2022-10-27] MEDS: MELATONIN 3 MG TAB PO PRN (21:11)
[2022-10-27] MEDS ORDERED: diphenhydrAMINE Capsule 25 MG CAP PO ONE (23:23)
[2022-10-28] MEDS: SODIUM BICARBONATE 8.4% 150 MEQ in WATER, STERILE 1,000 ML IV SCH (00:30)
[2022-10-28] MEDS ORDERED: SODIUM CHLORIDE 0.9% 1000ML 1,000 ML IV PRN (07:00)
[2022-10-28] MEDS: INSULIN ASPART PER UNIT CHARGE SC SCH ×2 (07:55→12:14)
[2022-10-28] MEDS: ONDANSETRON INJ 2 MG/ML 2 ML VIAL IV PRN (07:55)
[2022-10-28] MEDS: CHOLECALCIFEROL 5,000 UNITS 125 MCG TAB PO SCH (07:56)
[2022-10-28] MEDS: METOPROLOL SUCC 50MG EXT REL TAB PO SCH (07:56)
[2022-10-28] MEDS: APIXABAN 2.5 MG TAB PO SCH (07:56)
[2022-10-28] MEDS: methylPREDNISolone 40 MG in SYRINGE 0 ML IV SCH (07:56)
[2022-10-28] MEDS: CLOPIDOGREL BISULFATE 75 MG TAB PO SCH (07:56)
[2022-10-28 08:04] LABS: Basophils # (auto) 0.01 K/uL (0-0.2); Basophils % (auto) 0.1 %; Hematocrit (blood only) 34.7 % (37.0-47.0); Hemoglobin 11.2 g/dl (12.0-16.0); Immature Granulocytes # (auto) 0.04 K/uL (0.01-0.20); Immature Granulocytes % (auto) 0.6 %; Lymphocytes % (auto) 11.9 %; Mean Corpuscular Hemoglobin 26.8 pg (25.0-34.0); Mean Corpuscular Hgb Conc 32.3 g/dL (32.0-36.0); Mean Platelet Volume 11.6 fL (9.4-12.4); Monocytes # (auto) 0.31 K/uL (0.11-0.59); Monocytes % (auto) 4.6 %; Neutrophils # (auto) 5.57 K/uL (1.40-6.50); Neutrophils % (auto) 82.8 %; Platelet Count 171 K/uL (130-400); RDW Coefficient of Variation 17.4 % (11.5-14.5); RDW Standard Deviation 52.2 fL (36.4-46.3); Red Blood Count 4.18 M/uL (4.20-5.40); White Blood Count 6.73 K/ul (4.8-10.8)
[2022-10-28] MEDS: MENTHOL-ZINC OXIDE 360 APPLN/120 GM TUBE EXT SCH (08:17)
--- NOTE | 2022-10-28 08:49 | Nephrology Progress Note ---
Date of Service October 28, 2022 Assessment & Plan (1) ESRD (end stage renal disease): Plan: * Outpatient HD: [facility] MWF 3.5hr 2k 2Ca HCO3 38 Na 138 Revaclear 300 dialyzer Qb400/Qd500 EDW 88.5kg * Hold Sevelamer and Sensipar while ill and low oral intake * Will provide HD today for urea clearance and correction of hyperkalemia. 2 L UF ordered. Orders placed in EMR and HD RN notified (2) COVID-19: Plan: * Initial diagnosis 10/17/22 at personal group home * Continue supportive care (3) Non-ST elevation [place] (NSTEMI): Plan: * Troponin trending down (4) Nonischemic cardiomyopathy: Plan: * 10/26/22 echocardiogram: LVEF 25-30%, anterior/septal and apical wall akinesis * Cardiology recommends medical management (5) Diabetes type 2, uncontrolled: Plan: * Defer management to primary service Admission and Anticipated Discharge Date Admission Date: October 24, 2022 Subjective Mrs. Reyna was evaluated in her hospital room this morning. She was breathing comfortably flat in bed on RA and denied angina Review of Systems Constitutional: no fever Eyes: no problem reported Ear, Nose, Mouth, Throat: no problem reported Respiratory: no cough and no dyspnea Cardiovascular: no chest pain Gastrointestinal: no nausea, no vomiting and no diarrhea/loose stools Physical Exam Constitutional: not in distress Eyes: PERRL, conjunctivae normal, anicteric sclerae ENMT: Mouth: + dry oral mucous membranes Neck: trachea midline, no thyromegaly R IJ TCC with clean dry dressing Respiratory: normal respiratory effort, lungs clear to auscultation Cardiovascular: RRR, no murmur, no edema Extremities: + AV fistula (R arm AVF + bruit) Gastrointestinal (Abdomen): normal bowel sounds, soft, nontender, no hepatosplenomegaly Skin: + turgor decreased Neurologic: Speech / Cognition: normal speech and normal cognition Results & Data Vital Signs (Past 12 Hours) Vital Signs Temp Pulse Pulse Pulse Pulse Resp BP 10/28/22 08:30 84 119/70 10/28/22 08:11 75 121/68 10/28/22 08:05 36.6 C 74 10/28/22 08:07 36.4 C L 75 16 07/26/23 07:00 74 10/28/22 03:19 36.7 C 73 14 10/27/22 23:16 36.5 C 74 18 10/27/22 23:04 77 BP Pulse Ox O2 Del Method 10/28/22 08:30 10/28/22 08:11 10/28/22 08:05 10/28/22 08:07 129/77 90 Room Air 10/28/22 07:00 10/28/22 03:19 120/75 95 Room Air 10/27/22 23:16 116/87 94 Room Air 10/27/22 23:04 Laboratory Results Laboratory Tests 10/28/22 07:04 WBC 6.73 Hgb 11.2 L Hct 34.7 L Plt Count 171 10/28/22 PRP - pending PG Care Time/CCT Total # of Minutes Spent Total Time Spent with Patient: Total time spent is greater than 50% in coordination of care (as documented) at patient's floor/unit and/or counseling patient: Coding Level of Care Code 87587 SUB INP/OBS CARE 3/50MIN Diagnoses ESRD (end stage renal disease) N18.6 COVID-19 U07.1 Non-ST elevation [place] (NSTEMI) I21.4 Nonischemic cardiomyopathy I42.8 Diabetes type 2, uncontrolled E11.65
[2022-10-28 09:41] LABS: BUN Creatinine Ratio 13.8 (10-20); Calcium 9.7 mg/dl (8.6-10.3); Creatinine Clr Calc Pharmacy 10.9 ml/min; Est GFR (African American) 8.2 ml/min; Est GFR (Non-African American) 7.1 ml/min; Potassium 4.7 mmol/L (3.5-5.1)
--- NOTE | 2022-10-28 12:18 | Discharge Summary ---
Date of Service October 28, 2022 Admission HPI Per Admitting Provider 67 yo F PMHx significant for GERD, ESRD on hemodialysis, uncontrolled DM2 on insulin therapy, CAD, history of CVA, recent Dx superficial thrombosis of LLE on Eliquis therapy presents for about 1 week of left lower extremity weakness as well as 2 days of altered mental status, specifically in the mornings. She denies chest pain, shortness of breath, nausea, diaphoresis. She was diagnosed with COVID-19 on 10/17 at [facility] per her . She has been relatively asymptomatic since that time except for some weakness. Has not had any respiratory or GI symptoms during this time. Yesterday morning and this morning woke up and was not sure where she was, sort of resolved over the course of about an hour of being awake. According to EMS, the [facility] facility said that she was extremely hypoxic at the facility, however on their pulse ox she was saturating normally on room air and was non-tachycardic, non-tachypneic. In the ER patient was noted to be hemodynamically stable, no hypoxia, no tachycardia or tachypnea, WBC count not elevated, creatinine 4.45 with potassium of 4.3, BSG 140, COVID-19 positive, and troponin of 233.4. CT head on admission did not show any acute intracranial pathology. Chest x-ray did not show evidence of focal consolidation, but did suggest pulmonary vascular congestion. Hospitalist service was consulted for admission. Principal Diagnosis COVID viral syndrome, metabolic encephalopathy, possible recent anterior wall CA, possible Takotsubo stress cardiomyopathy Discharge Exam General-alert and oriented x3. Malaise has improved considerably HEENT-head atraumatic and normocephalic, pupils equal and reactive to light, extraocular muscles intact Neck-no lymphadenopathy or thyromegaly, trachea midline Chest-clear to auscultation percussion. No rales wheezing or rhonchi Cardiac-regular rate and rhythm, normal S1 and S2 Abdomen-normal bowel sounds, nontender, no hepatosplenomegaly Extremities-no cyanosis, clubbing, or edema Neuro-cranial nerves II through XII intact, motor and sensory function within normal limits, strength symmetrical with generalized weakness , no focal deficits Psych-depressed affect Discharge Data Allergies Allergy/AdvReac Type Severity Reaction Status Date / Time dulaglutide [From [facility]] Allergy Intermediate Hives Verified 10/22/22 12:47 atorvastatin AdvReac Intermediate Statin Verified 10/24/22 16:03 Cardiomyopathy erythromycin base AdvReac Intermediate Vomiting Verified 10/22/22 12:47 Consultations 10/24/22 09:30 ED Decision to Admit Stat 10/24/22 10:47 Consult Cardiology Routine 10/26/22 09:56 Consult Nephrology Routine Ordered Studies 10/24/22 07:21 CT head/brain wo con Stat 10/24/22 10:42 MR angio head wo con Urgent MR brain wo con Urgent 10/24/22 10:48 MR angio neck wo con Urgent Hospital Course (1) Non-ST elevation CA (NSTEMI): Cardiology consultation and recommendations appreciated. This appears to be stress-induced cardiomyopathy of the Takotsubo variety. Continue Eliquis and Plavix for now. Troponin was minimally elevated but no acute chest pain. EKG with ST depressions in inferior leads (chronic EKG finding). Echo with EF 25 to 30% with extensive anteroapical akinesis, mild to moderate valvular , moderate MR, and moderate pulmonary HTN. Hx of nonischemic cardiomyopathy in 2009, suspect similar this admission (stress-induced/Takotsubo in setting of acute COVID-19 illness), though has Hx CAD on chart as well. Has intolerance to atorvastatin (statin cardiomyopathy), therefore statin deferred. BP normotensive. Continue home amlodipine, plavix, and metoprolol. No heart catheterization planned for this admission (2) Acute alteration in mental status: Now resolved. This appears to have been acute metabolic encephalopathy present on admission. CT head without evidence of CVA. Brain MRI/MRA also without evidence of CVA. UA, CXR, WBC count not suggestive of acute bacterial infection but positive for COVID-19 on 10/17 at personal care facility. feels symptoms started around when she started Lagevrio for COVID. Will not continue this (3) COVID-19: Tested positive 10/17 at [facility], also positive on admission testing 10/24. Per Infection Control can come off of isolation precautions on 10/27. She is exhibiting symptoms of a viral illness. Parenteral Solu-Medrol has helped considerably. Dosage down titrated on October 27. Switched to prednisone taper today, October 28 (4) Diabetes type 2, uncontrolled: ADA diet. Parenteral steroids have induced hyperglycemia. Continue sliding scale coverage. This will improve as steroids are weaned off (5) Superficial thrombosis of left lower extremity: Diagnosed several months ago. Not currently on systemic anticoagulation. Plan Discharge to [place] today, October 28 Total Time Total Time Spent Total Time Spent (In Minutes): 45-minute Discharge Plan Discharge Items Patient Disposition: Transfer [facility] Fac Reason For Visit: ELEVATED TROPONIN, AMS Discharge Diagnosis: COVID viral syndrome, acute metabolic encephalopathy, possible recent anterior wall CA, possible Takotsubo stress cardiomyopathy Activity: Resume your previous activity Non-emergency contact: Primary Care Provider Call non-emergency contact if: you have any medication questions and your symptoms worsen Follow-up/Referrals: Rashel Patterson, [Primary Care Provider] - Diet: Carb Consistent or DM2 and Heart Healthy Addtl Attending Provider Instructions: Take prednisone in a tapering dose fashion as directed. Hemodialysis schedule remains the same Pending Studies at Discharge: No Stand-Alone Forms: My [facility] Skilled Items Patient informed of condition?: Yes DNR: Yes Discharge Level of Care: Skilled Communicable Disease: No Discharge Prognosis: Stable Lines: None Urinary Catheter: No Medications and DC Order Prescriptions: New metoprolol succinate 50 mg Tablet Extended Release 24 Hr 50 mg PO QAM Qty: 0 0RF prednisone 10 mg Tablet See Rx Instructions .ROUTE .COMPLEX Qty: 0 0RF Rx Instructions: 10 mg orally 3 times a day for 2 days, then 10 mg twice a day for 2 days, then 10 mg daily for 2 days, then stop Continued (DME) Dexcom G6 Transmitter Device See Rx Instructions .Route Qty: 1 3RF Rx Instructions: As directed. (DME) Dexcom G6 Sensor Device See Rx Instructions .Route Qty: 3 5RF Rx Instructions: As directed. clopidogrel [Plavix] 75 mg tablet 75 mg PO QAM Qty: 90 3RF (DME) pen needle, diabetic [BD Ultra-Fine Gwen Pen Needle] 32 gauge x 5/32" needle See Rx Instructions .ROUTE .MEDSUPPLY Qty: 500 3RF Rx Instructions: Use 5 per day as directed with insulin injection (DME) OneTouch Ultra Test Strip See Rx Instructions .Route Qty: 200 5RF Rx Instructions: Check blood sugars QID and as needed cholecalciferol (vitamin D3) 125 mcg (5,000 unit) capsule 125 mcg PO DAILY Qty: 45 0RF Rx Instructions: take one capsule by mouth daily after HD for six weeks. molnupiravir 200 mg capsule 800 mg PO Q12H 5 Days Qty: 40 0RF sevelamer carbonate 800 mg tablet 800 mg PO TID Qty: 270 3RF Rx Instructions: must administer with a meal/food Eliquis 2.5 mg tablet 2.5 mg PO BID Qty: 60 0RF (DME) blood-glucose meter [OneTouch Ultra2 Meter] Kit See Rx Instructions .Route Qty: 1 0RF Rx Instructions: As directed (DME) lancets [OneTouch UltraSoft Lancets] Misc See Rx Instructions .Route Qty: 200 5RF Rx Instructions: Check blood sugars QID and as needed insulin aspart U-100 [Novolog FlexPen U-100 Insulin] 100 unit/mL (3 mL) insulin pen 5 unit SC TIDM Qty: 15 5RF Rx Instructions: take 5 units with meals, TID insulin glargine [Lantus U-100 Insulin] 100 unit/mL solution 25 unit subcut HS Qty: 10 2RF amlodipine 10 mg tablet 10 mg PO DAILY insulin aspart U-100 [Novolog FlexPen U-100 Insulin] 100 unit/mL (3 mL) Insulin Pen See Rx Instructions .ROUTE .COMPLEX PRN (Reason: Other) Rx Instructions: PER FAXED MED LIST FROM PHARMACY- 1-15 UNITS TID DAILY WITH MEALS PRN FOR SLIDING SCALE (FILL DATE: 09/04/22) loperamide 2 mg capsule 0 mg PO Q4H PRN (Reason: loose stool) Rx Instructions: not on faxed list from [facility], unable to verify Renal Caps 1 mg capsule 0 cap PO QAM Rx Instructions: not on faxed list from [facility], unable to verify cinacalcet 30 mg tablet 0 mg PO 3XWK Rx Instructions: not on faxed list from [facility], unable to verify QHS QMWF pantoprazole 40 mg tablet,delayed release (DR/EC) 40 mg PO QAM Discontinued carvedilol [Coreg] 25 mg tablet 50 mg PO BID Qty: 360 3RF Discharge Orders: Discharge Order (Routine); Ordered 10/28/22 Ordered By: Ky Bolden Admission Data Admit Date/Time: 10/24/22 09:34 Attending Provider: Ky Bolden Admit Provider: Carmenza Rosario Primary Care Provider: Rashel Patterson Other Providers: Carmenza Rosario ; Javier Arroyo ; Matthew Vance ; [place],[facility] Coding Level of Care Code 47998 INP/OBS DISCH >30 MIN Diagnoses Non-ST elevation CA (NSTEMI) I21.4 Acute alteration in mental status R41.82 COVID-19 U07.1 Diabetes type 2, uncontrolled E11.65 Superficial thrombosis of left lower extremity I82.812
--- NOTE | 2022-10-28 13:36 | Discharge Summary ---
Date of Service October 28, 2022 Admission HPI Per Admitting Provider 67 yo F PMHx significant for GERD, ESRD on hemodialysis, uncontrolled DM2 on insulin therapy, CAD, history of CVA, recent Dx superficial thrombosis of LLE on Eliquis therapy presents for about 1 week of left lower extremity weakness as well as 2 days of altered mental status, specifically in the mornings. She denies chest pain, shortness of breath, nausea, diaphoresis. She was diagnosed with COVID-19 on 10/17 at [facility] per her . She has been relatively asymptomatic since that time except for some weakness. Has not had any respiratory or GI symptoms during this time. Yesterday morning and this morning woke up and was not sure where she was, sort of resolved over the course of about an hour of being awake. According to EMS, the [facility] said that she was extremely hypoxic at the facility, however on their pulse ox she was saturating normally on room air and was non-tachycardic, non-tachypneic. In the ER patient was noted to be hemodynamically stable, no hypoxia, no tachycardia or tachypnea, WBC count not elevated, creatinine 4.45 with potassium of 4.3, BSG 140, COVID-19 positive, and troponin of 233.4. CT head on admission did not show any acute intracranial pathology. Chest x-ray did not show evidence of focal consolidation, but did suggest pulmonary vascular congestion. Hospitalist service was consulted for admission. Principal Diagnosis COVID viral syndrome, acute metabolic encephalopathy, possible recent anterior wall SC, possible Takotsubo stress cardiomyopathy Discharge Data Allergies Allergy/AdvReac Type Severity Reaction Status Date / Time dulaglutide [From [facility]] Allergy Intermediate Hives Verified 10/22/22 12:47 atorvastatin AdvReac Intermediate Statin Verified 10/24/22 16:03 Cardiomyopathy erythromycin base AdvReac Intermediate Vomiting Verified 10/22/22 12:47 Consultations 10/24/22 09:30 ED Decision to Admit Stat 10/24/22 10:47 Consult Cardiology Routine 10/26/22 09:56 Consult Nephrology Routine Ordered Studies 10/24/22 07:21 CT head/brain wo con Stat 10/24/22 10:42 MR angio head wo con Urgent MR brain wo con Urgent 10/24/22 10:48 MR angio neck wo con Urgent Total Time Total Time Spent Total Time Spent (In Minutes): 45 minutes Discharge Plan Discharge Items Patient Disposition: Transfer [facility] Living Fac Reason For Visit: ELEVATED TROPONIN, AMS Discharge Diagnosis: COVID viral syndrome, acute metabolic encephalopathy, possible recent anterior wall SC, possible Takotsubo stress cardiomyopathy Activity: Resume your previous activity Non-emergency contact: Primary Care Provider Call non-emergency contact if: you have any medication questions and your symptoms worsen Follow-up/Referrals: Rashel Patterson, [Primary Care Provider] - Diet: Carb Consistent or DM2 and Heart Healthy Addtl Attending Provider Instructions: Take prednisone in a tapering dose fashion as directed. Hemodialysis schedule remains the same. Accu-Cheks before meals and at bedtime. Treat any glucose greater than or equal to 200 Pending Studies at Discharge: No Stand-Alone Forms: My [employer] Skilled Items Patient informed of condition?: Yes DNR: Yes Discharge Level of Care: Skilled Communicable Disease: No Discharge Prognosis: Stable Lines: None Urinary Catheter: No Medications and DC Order Prescriptions: New metoprolol succinate 50 mg Tablet Extended Release 24 Hr 50 mg PO QAM Qty: 0 0RF prednisone 10 mg Tablet See Rx Instructions .ROUTE .COMPLEX Qty: 0 0RF Rx Instructions: 10 mg orally 3 times a day for 2 days, then 10 mg twice a day for 2 days, then 10 mg daily for 2 days, then stop Continued (DME) Dexcom G6 Transmitter Device See Rx Instructions .Route Qty: 1 3RF Rx Instructions: As directed. (DME) Dexcom G6 Sensor Device See Rx Instructions .Route Qty: 3 5RF Rx Instructions: As directed. clopidogrel [Plavix] 75 mg tablet 75 mg PO QAM Qty: 90 3RF (DME) pen needle, diabetic [BD Ultra-Fine Gwen Pen Needle] 32 gauge x 5/32" needle See Rx Instructions .ROUTE .MEDSUPPLY Qty: 500 3RF Rx Instructions: Use 5 per day as directed with insulin injection (DME) OneTouch Ultra Test Strip See Rx Instructions .Route Qty: 200 5RF Rx Instructions: Check blood sugars QID and as needed cholecalciferol (vitamin D3) 125 mcg (5,000 unit) capsule 125 mcg PO DAILY Qty: 45 0RF Rx Instructions: take one capsule by mouth daily after HD for six weeks. molnupiravir 200 mg capsule 800 mg PO Q12H 5 Days Qty: 40 0RF sevelamer carbonate 800 mg tablet 800 mg PO TID Qty: 270 3RF Rx Instructions: must administer with a meal/food Eliquis 2.5 mg tablet 2.5 mg PO BID Qty: 60 0RF (DME) blood-glucose meter [OneTouch Ultra2 Meter] Kit See Rx Instructions .Route Qty: 1 0RF Rx Instructions: As directed (DME) lancets [OneTouch UltraSoft Lancets] Misc See Rx Instructions .Route Qty: 200 5RF Rx Instructions: Check blood sugars QID and as needed insulin aspart U-100 [Novolog FlexPen U-100 Insulin] 100 unit/mL (3 mL) insulin pen 5 unit SC TIDM Qty: 15 5RF Rx Instructions: take 5 units with meals, TID insulin glargine [Lantus U-100 Insulin] 100 unit/mL solution 25 unit subcut HS Qty: 10 2RF amlodipine 10 mg tablet 10 mg PO DAILY insulin aspart U-100 [Novolog FlexPen U-100 Insulin] 100 unit/mL (3 mL) Insulin Pen See Rx Instructions .ROUTE .COMPLEX PRN (Reason: Other) Rx Instructions: PER FAXED MED LIST FROM PHARMACY- 1-15 UNITS TID DAILY WITH MEALS PRN FOR SLIDING SCALE (FILL DATE: 09/04/22) loperamide 2 mg capsule 0 mg PO Q4H PRN (Reason: loose stool) Rx Instructions: not on faxed list from [facility], unable to verify Renal Caps 1 mg capsule 0 cap PO QAM Rx Instructions: not on faxed list from [facility], unable to verify cinacalcet 30 mg tablet 0 mg PO 3XWK Rx Instructions: not on faxed list from [facility], unable to verify QHS QMWF pantoprazole 40 mg tablet,delayed release (DR/EC) 40 mg PO QAM Discontinued carvedilol [Coreg] 25 mg tablet 50 mg PO BID Qty: 360 3RF Discharge Orders: Discharge Order (Routine); Ordered 10/28/22 Ordered By: Ky Bolden Admission Data Admit Date/Time: 10/24/22 09:34 Attending Provider: Ky Bolden Admit Provider: Carmenza Rosario Primary Care Provider: Rashel Patterson Other Providers: Carmenza Rosario ; Javier Arroyo ; Matthew Vance ; [place],[facility] Coding Level of Care Code 63263 INP/OBS DISCH >30 MIN Diagnoses
[2022-10-28] MEDS ORDERED: predniSONE 10 MG TABLET PO SCH (14:00)
== END 2022-10-28 14:08 | DRG 177 ==
LOC: ED 07:10 → SUATTDRO 09:34 → 2S 09:34

== ENCOUNTER 2023-02-03 12:24 | Inpatient (IN) ==
--- NOTE | 2023-02-03 13:22 | Emergency Department Note ---
Impression & Plan ESRD (end stage renal disease), Hypotensive episode, Fluid overload ED Provider Note Name: SHALOM KRAMER Age: 67 Sex: Female Arrives Via: Ambulance Informant: Patient, family, primary chemical treatment operator ED Provider: Jesús Chen MD Chief Complaint: Hypotension Impression: As per impression above Medical Decision Making: Pleasant 67-year-old female end-stage dialysis for the last 2 years who has had worsening issues of hypotension over the last few months. The last 2 dialysis attempts on Wednesday and then today resulted in hypotension. Today significant hypotension to the point where she went nearly unresponsive. With dialysis being stopped blood pressure came back up. Patient is severely fluid overloaded loaded. She has diffuse edema bilateral legs with some erythema. Some weeping noted. That said she does not have any fevers, chills, white blood cell count elevation. At this point I would suspect erythema on legs is more fluid retention issues rather than bilateral cellulitis. We will hold off on antibiotics at this time. Patient was watched over 2 hours had no further hypotension. I did discuss this with the on-call chemical treatment operator who advised hospi talization with plan to dialyze tomorrow which I think makes sense. We will hold off on Lasix given she does not make much urine to begin with. Discussed with hospitalist for further management. Triage/Nursing Notes reviewed by Me External Chart Review by me: Reviewed hospitalization records from this summer and discharge summaries at that time Differential:Congestive failure, end-stage renal disease, electrolyte imbalance, sepsis, ACS, PE, dissection, many other pathologies considered Vital Signs: reviewed and remarkable for no significant abnormalities Labs:ED labs Reviewed by me and remarkable for normal white blood cell count, elevated creatinine and labs consistent with chronic renal disease Imaging:Considered imaging but as she is not short of breath at this point has no hypoxia or tachycardia chest x-ray and CT imaging of the chest seem unnecessary emergently Cardiac/Tele Monitoring: Cardiac Monitoring: An Order was placed for continuous cardiac monitoring. The monitor shows a rate of 70 with a normal sinus rhythm. Consults:Dr. Garcia of nephrology who knows the patient well and feels patient would benefit from inpatient dialysis to get her 9+ liters off Dr. Teran of the [facility] service Social Determinants of Health: Currently living in long-term nursing care facility Plan: Disposition:Hospitalization. Condition: Good History of Present Illness: 67-year-old female arrives for evaluation of weakness. Patient has been on dialysis for the last 2 years with issues surrounding hypotension over the last few months. She has been gaining fluid over the last month and thus there was an attempt to do more aggressive dialysis the last 2 trials. Wednesday she got very nauseous and threw up. Today during dialysis blood pressure dropped into the 60s. Patient went somewhat unresponsive until he stopped dialysis and then she came to. Patient denies any headache, chest pain, shortness of breath, abdominal pain. She notes her legs have been quite swollen and pain with movement. No fevers, chills, urinary symptoms. Patient does make a small amount of urine but it has been slowly worsening over the last few months. Past Medical History:See Below Home Medications:See Below Allergies:See Below Vitals:Blood Pressure: 110/55, Pulse 77, RR 20, T 36.7C, O2 97% on RA Physical Exam: GENERAL: Patient is chronically unwell appearing and in no distress. RESPIRATORY: Mild crackles at bases bilaterally CARDIOVASCULAR: Regular rate and rhythm.No murmur appreciated. GASTROINTESTINAL: Abdomen soft, non-tender, no peritonitis. EXTREMITIES: Normal motion all extremities, no cyanosis, bilateral pitting edema with erythema bilateral lower legs NEUROLOGIC: Alert and oriented. No focal neurologic deficits appreciated SKIN: No rash, no jaundice, no diaphoresis. PSYCH: Appropriate GCS: 15 ED Course: Times/Reassessments: Patient stable on multiple repeat evaluations. She just notes that she is quite hungry. Vital stable unremarkable throughout ED stay. Jesús Chen MD Past Med/Surg History Medical History (Updated 02/03/23 @ 17:08 by Jesús Chen MD) Anemia Background diabetic retinopathy associated with type 2 diabetes mellitus CAD (coronary artery disease) Non obstructive (August 2009) per cardio records Diabetes type 2, uncontrolled Diabetic nephropathy associated with type 2 diabetes mellitus Dyslipidemia ESRD (end stage renal disease) GERD (gastroesophageal reflux disease) History of CVA (cerebrovascular accident) (2017) Hx of Lyme disease Hypertension Mitral regurgitation Morbid obesity Nocturnal hypoxemia Osteopenia Primary hyperparathyroidism Subclinical hypothyroidism TSH 5.180 in 01/2021 Traumatic ulcer of left lower leg Vitamin D deficiency Vocal cord paralysis syndrome Surgical History Difficult airway for intubation PT STATES HAS HAD VOCAL CORD PARAYSIS IN PAST Fiberoptic intubation used with 10/2019 lap odalis History of cataract surgery RT/LEFT History of vascular access device 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 (USING FOR DIALYSIS) Hx of colonoscopy Hx of eye surgery EYE MUSCLE REPAIR Hx of tonsillectomy Hx of tubal ligation S/P cardiac catheterization OVER 10 YEARS AGO/NO STENTS Status post laparoscopic cholecystectomy (10/07/19) [place] teeth removed Family History Father Family history of diabetes mellitus Aunt Family history of diabetes mellitus Uncle Family history of diabetes mellitus Brother Family history of diabetes mellitus Brother Family history of diabetes mellitus Grandmother (Maternal) Family hx of colon cancer Other Alzheimer disease Coronary heart disease No family history of adverse response to anesthesia Social History Smoking Status: Never smoker Tobacco Type: Cigarettes Second Hand Exposure: No; Do You Dip or Chew Tobacco: No; Hx Alcohol Use: No Hx Substance Use: No Preferred Language: Sinhala Communication Ability: Effective Visual Impairment: No Limitations Hearing Ability: Normal Television News Producer Required: No Beliefs That Will Affect Care: None marital status: Current Living Situation: Shelter Current Living Situation Comment: Resides at [facility]. Feels Safe at Home: Yes Diet: low salt and vegetarian caffeine: Yes Seatbelt Use: always Assistive Devices: Walker Allergies Allergies Allergy/AdvReac Type Severity Reaction Status Date / Time dulaglutide [From Trulicity] Allergy Intermediate Hives Verified 12/09/22 13:57 atorvastatin AdvReac Intermediate Statin Verified 12/09/22 13:57 Cardiomyopathy erythromycin base AdvReac Intermediate Vomiting Verified 12/09/22 13:57 Home Meds Home Medications Medication Instructions Recorded Confirmed pantoprazole 40 mg tablet,delayed 40 mg PO QAM 09/16/22 02/03/23 release insulin aspart U-100 100 unit/mL See Rx Instructions .Route 10/24/22 02/03/23 (3 mL) subcutaneous pen (Novolog .COMPLEX PRN Other FlexPen U-100 Insulin aspart) loperamide 2 mg capsule 0 mg PO Q4H PRN loose stool 10/24/22 02/03/23 vitamin B complex and vitamin C 0 cap PO QAM 10/24/22 02/03/23 no.20-folic acid 1 mg capsule (Renal Caps) bumetanide 2 mg tablet 1 mg PO BID 12/02/22 02/03/23 cinacalcet 30 mg tablet 30 mg PO 3XWK 12/02/22 02/03/23 clopidogrel 75 mg tablet (Plavix) 75 mg PO HS 02/03/23 02/03/23 gabapentin 100 mg capsule 100 mg PO BID 02/03/23 02/03/23 midodrine 5 mg tablet 5 mg PO 3XWK 02/03/23 02/03/23 midodrine 5 mg tablet 5 mg PO 3XWK PRN Hypotension 02/03/23 02/03/23 trazodone 50 mg tablet 25 mg PO HS 02/03/23 02/03/23 Previous Rx's Medication Instructions Recorded blood-glucose sensor (Dexcom G6 #3 ea 06/24/21 Sensor device) blood-glucose transmitter (Dexcom #1 ea 06/24/21 G6 Transmitter device) blood-glucose meter (InnovacellTouch #1 ea 11/25/21 Ultra2 Meter kit) lancets (InnovacellTouch UltraSoft #200 ea 11/25/21 Lancets) BD Ultra-Fine Gwen Pen Needle 32 #500 ea 08/10/22 gauge x 5/32" (pen needle, diabetic) blood sugar diagnostic (OneTouch #200 ea 08/10/22 Ultra Test strips) cholecalciferol (vitamin D3) 125 125 mcg PO DAILY #45 caps 09/07/22 mcg (5,000 unit) capsule sevelamer carbonate 800 mg tablet 800 mg PO TID #270 tabs 10/20/22 insulin aspart U-100 100 unit/mL 5 unit (0.05 mL) SC TIDM #15 mL 10/22/22 (3 mL) subcutaneous pen (Novolog FlexPen U-100 Insulin aspart) insulin glargine 100 unit/mL 25 unit (0.25 mL) subcut HS #10 mL 10/22/22 subcutaneous solution (Lantus U-100 Insulin) metoprolol succinate 25 mg 25 mg PO QAM #30 tabs 12/02/22 tablet,extended release 24 hr patiromer calcium sorbitex 8.4 8.4 g PO DAILY #30 ea 12/02/22 gram oral powder packet ([place]) Results & Data (ED) Vital Signs Vital Signs - 24 hr 02/03/23 12:33 02/03/23 13:05 Temperature 36.7 C Temperature Source Oral Pulse Rate 82 77 Pulse Rhythm Regular Pulse Strength Normal Respiratory Rate 20 Respiratory Effort / Characteristics Non-Labored Spontaneous Respiratory Depth Normal Respiratory Pattern Regular Blood Pressure 110/55 L Blood Pressure Mean 73 Blood Pressure Position Sitting Pulse Oximetry 97 Oxygen Delivery Method Room Air Sepsis Recent Fever Within 48 Hours No Sepsis New/Unexplained Change in Mental Status No Sepsis Action Taken by Nursing No Action Required Laboratory Data 02/03/23 13:54 02/03/23 13:54 Lab Results 02/03/23 02/03/23 Range/Units 13:54 13:54 WBC 9.92 (4.8-10.8) K/ul RBC 4.14 L (4.20-5.40) M/uL Hgb 12.2 (12.0-16.0) g/dl Hct 38.2 (37.0-47.0) % MCV 92.3 (80.0-100.0) fL MCH 29.5 (25.0-34.0) pg MCHC 31.9 L (32.0-36.0) g/dL RDW Std Deviation 52.4 H (36.4-46.3) fL RDW Coeff of [place] 15.3 H (11.5-14.5) % Plt Count 252 (130-400) K/uL MPV 10.3 (9.4-12.4) fL Immature Gran % (Auto) 0.3 % Neut % (Auto) 69.2 % Lymph % (Auto) 15.4 % [place] % (Auto) 10.6 % Eos % (Auto) 3.6 % Baso % (Auto) 0.9 % Neut # (Auto) 6.86 H (1.40-6.50) K/uL Lymph # (Auto) 1.53 (1.20-3.40) K/uL [place] # (Auto) 1.05 H (0.11-0.59) K/uL Eos # (Auto) 0.36 (0.00-0.50) K/uL Baso # (Auto) 0.09 (0.00-0.20) K/uL Immature Gran # (Auto) 0.03 (0.01-0.20) K/uL Sodium 137 (136-145) mmol/L Potassium 3.2 L (3.5-5.1) mmol/L Chloride 95 L (98-107) mmol/L Carbon Dioxide 29 (21-32) mmol/L Anion Gap 13 H (3-11) BUN 42 H (6-23) mg/dl Creatinine 4.15 H (0.6-1.2) mg/dl Est Cr Clr Drug Dosing 14.9 ml/min Est GFR ( Amer) 12.1 ml/min Est GFR (Non-Af Amer) 10.4 ml/min BUN/Creatinine Ratio 10.1 (10-20) Glucose 195 H (70-99(Fasting)) mg/dl Calcium 8.9 (8.6-10.3) mg/dl Magnesium 2.2 (1.7-2.4) mg/dl Total Bilirubin 0.4 (0.2-1.0) mg/dl Direct Bilirubin 0.0 (0-0.2) mg/dl AST 19 (13-39) U/L ALT 15 (7-52) U/L Alkaline Phosphatase 116 H (34-104) U/L Total Protein 8.0 (6.0-8.3) gm/dl Albumin 3.4 (3.4-5.0) gm/dl Discharge Plan Visit Data Chief Complaint: Hypotension Stated Complaint: AMS, HYPOTENSION ED Provider: Jesús Chen Discharge Problem: ESRD (end stage renal disease), Hypotensive episode, Fluid overload Patient Disposition: Admitted As Inpatient Discharge Instructions Interventions: ED Discharge Assessment Last Done: 02/03/23 17:02
[2023-02-03 14:12] LABS: Basophils # (auto) 0.09 K/uL (0.00-0.20); Basophils % (auto) 0.9 %; Eosinophils # (auto) 0.36 K/uL (0.00-0.50); Eosinophils % (auto) 3.6 %; Hematocrit (blood only) 38.2 % (37.0-47.0); Hemoglobin 12.2 g/dl (12.0-16.0); Immature Granulocytes # (auto) 0.03 K/uL (0.01-0.20); Immature Granulocytes % (auto) 0.3 %; Lymphocytes # (auto) 1.53 K/uL (1.20-3.40); Lymphocytes % (auto) 15.4 %; Mean Corpuscular Hemoglobin 29.5 pg (25.0-34.0); Mean Corpuscular Hgb Conc 31.9 g/dL (32.0-36.0); Mean Corpuscular Volume 92.3 fL (80.0-100.0); Mean Platelet Volume 10.3 fL (9.4-12.4); Monocytes # (auto) 1.05 K/uL (0.11-0.59); Monocytes % (auto) 10.6 %; Neutrophils # (auto) 6.86 K/uL (1.40-6.50); Neutrophils % (auto) 69.2 %; Platelet Count 252 K/uL (130-400); RDW Coefficient of Variation 15.3 % (11.5-14.5); RDW Standard Deviation 52.4 fL (36.4-46.3); Red Blood Count 4.14 M/uL (4.20-5.40); White Blood Count 9.92 K/ul (4.8-10.8)
[2023-02-03 14:25] LABS: Albumin Level 3.4 gm/dl (3.4-5.0); BUN Creatinine Ratio 10.1 (10-20); Bilirubin,Total 0.4 mg/dl (0.2-1.0); Calcium 8.9 mg/dl (8.6-10.3); Creatinine Clr Calc Pharmacy 14.9 ml/min; Est GFR (African American) 12.1 ml/min; Est GFR (Non-African American) 10.4 ml/min; Magnesium 2.2 mg/dl (1.7-2.4); Potassium 3.2 mmol/L (3.5-5.1)
[2023-02-03] MEDS ORDERED: DEXTROSE 50% 50 ML SYRINGE IV PRN (14:36)
[2023-02-03] MEDS ORDERED: GLUCOSE 40% GEL 15 GM TUBE PO PRN (14:36)
[2023-02-03] MEDS ORDERED: CARBOHYDRATES FOR HYPOGLYCEMIA PO PRN (14:36)
[2023-02-03] MEDS ORDERED: GLUCAGON FOR INJ 1 MG VIAL SQ PRN (14:36)
[2023-02-03] MEDS ORDERED: PHARMACY GLYCEMIC MGMT CONSULT PRN (14:36)
[2023-02-03] MEDS ORDERED: GLUCOSE 10 TAB/TUBE PO PRN (14:36)
--- NOTE | 2023-02-03 14:36 | History & Physical Report ---
Date of Service February 03, 2023 Assessment & Plan (1) Hypotension of hemodialysis: Plan: -Admit to med/tele -Currently hemodynamically stable and alert with mild confusion -Patient presented to the [facility] ED for recurring hypotension and AMS during her dialysis session; 2L were taking off during partial dialysis session -Nephrology requesting patient be admitted for further workup of hypotension and close monitoring during slow, extended dialysis session tomorrow -At this time the most likely etiology of the patient's recurrent hypotension during dialysis is due to her HFrEF (LVEF of 25-30%), continued use of metoprolol, trazodone, and bumex, and need for less aggressive dialysis sessions -Cannot rule out infectious etiology at this time, WBC is WNL but she may have an infection in the LE's >Will obtain procal, lactate, chest xray on admission >If further workup is concerning for infection will start antibiotics >Obtain blood cultures on admission and will obtain UA as she still produces urine >Will obtain xrays of the BL great toes to monitor for sings of osseous involvement -No sings or symptoms to suggest active bleeding at this time, will continue to monitor -Patient does have a hx of previous superficial blood clot in the LE's, completed course of Eliquis for this and no longer on anticoagulation. >Low suspicion for PE at this time are she is now hemodynamically stable, is not tachycardic, stable on RA, and without chest discomfort >Will obtain BL LE venous dopplers for further evaluation -Will hold her metoprolol, trazodone, and speak with Nephrology regarding continued bumex at this time -Will continue her PO midodrine but increase dose from 5 mg on am of dialysis days to 10 mg; will also order a one time dose of 10 mg tomorrow am prior to dialysis session -Fall precautions -SQ heparin for DVT PPX -DMII/Renal diet, 1800 mL fluid restriction for now -AM CBC, CMP, Mag, PT/INR (2) ESRD (end stage renal disease): Plan: -MWF HD, follows with Dr. Garcia -Nephrology consult placed -Conitnue home Nephrology medications at this time -DMII/Renal diet with 1800 mL fluid restriction (3) Leg swelling: Plan: -Will FU on BL LE venous dopplers, BL great toe xrays -If further infectious workup is negative then likely just chronic venous stasis -Continue to monitor (4) Acute alteration in mental status: Plan: -Frequently occurs when she is hypotensive during dialysis -She is currently fatigued but alert and oriented -No focal neuro findings on exam -Continue infectious workup and symptomatic treatment (5) CAD (coronary artery disease): Plan: -Conitnue plavix (6) GERD (gastroesophageal reflux disease): Plan: -Continue pantoprazole (7) History of CVA (cerebrovascular accident): Plan: -Continue plavix (8) Diabetes type 2, uncontrolled: Plan: -Monitor BSG ACHS, goal is 110-140 -Normally takes 20 units glargine HS, will reduce to 20 units HS for now -Start CF of 50 -DMII/Renal diet -Pharmacy glycemic consult placed Plan The patient was discussed with Dr. Teran at the time of the exam History of Present Illness Chief Complaint: Hypotension and confusion during dialysis Primary Care Provider: Rashel Patterson DO Mathis is a 67 yo F PMHx significant for GERD, ESRD on hemodialysis (MWF), uncontrolled DM2 on insulin therapy, CAD, history of CVA, and superficial thrombosis of LLE on Eliquiswho was sent to the [facility] ED from the dialysis center after becoming hypotensive with systolic BP in the 60's and AMS. On arrival to the ED she is stable and alert/oriented. CBC is WNL, CMP shows a potassium of 3.2, AG of 13 with Bicarb WNL, glucose of 195. The ED staff spoke with Dr. Garcia who would like the patient to be admitted for a slow session of dialysis tomorrow as the patient needs to have approximately 9L of fluid removed; she only had 2L removed today at dialysis. At the time of the exam the patient was sitting in bed in no acute distress. She is fatigued but able to communicate. She states that she is unsure what happened at dialysis but confirms that she is often very tired after dialysis. She denies recent fever, chills, chest pain, cough, abd pain, nausea, vomiting, diarrhea, dysuria, hematuria, melena, and recent trauma. She confirms that she makes a small amount of urine and denies recent dysuria, hematuria. She states that her LE's have been more swollen and painful recently. She states that her right great toenail was removed and that wound care is following her chronic wounds on the BL great toes. She is unsure of her medications. She confirms that she is a full code; her is her POA. I called and spoke to the staff at [facility]. They confirm that the patient has been having ongoing issues with hypotension on dialysis days. They state that she takes 1 mg PO bumex BID on non-dialysis days, is still on daily metoprolol, and has been getting 5 mg PO midodrine on the mornings of dialysis with additional prn doses as needed. They state that she also takes trazodone nightly for insomnia. When asked, they confirm that she is always very tired and confused after dialysis. Please refer to Dr. Teran's attestation for any changes to the treatment plan Allergies Allergy/AdvReac Type Severity Reaction Status Date / Time dulaglutide [From [facility]] Allergy Intermediate Hives Verified 12/09/22 13:57 atorvastatin AdvReac Intermediate Statin Verified 12/09/22 13:57 Cardiomyopathy erythromycin base AdvReac Intermediate Vomiting Verified 12/09/22 13:57 Home Medications Medication Instructions Recorded Confirmed Type blood-glucose sensor (Dexcom G6 #3 ea 06/24/21 10/22/22 Rx Sensor device) blood-glucose transmitter (Dexcom #1 ea 06/24/21 10/22/22 Rx G6 Transmitter device) blood-glucose meter (OneTouch #1 ea 11/25/21 10/22/22 Rx Ultra2 Meter kit) lancets (OneTouch UltraSoft #200 ea 11/25/21 10/22/22 Rx Lancets) BD Ultra-Fine Gwen Pen Needle 32 #500 ea 08/10/22 10/22/22 Rx gauge x 5/32" (pen needle, diabetic) blood sugar diagnostic (OneTouch #200 ea 08/10/22 10/22/22 Rx Ultra Test strips) cholecalciferol (vitamin D3) 125 125 mcg PO DAILY #45 caps 09/07/22 02/03/23 Rx mcg (5,000 unit) capsule pantoprazole 40 mg tablet,delayed 40 mg PO QAM 09/16/22 02/03/23 History release sevelamer carbonate 800 mg tablet 800 mg PO TID #270 tabs 10/20/22 02/03/23 Rx insulin aspart U-100 100 unit/mL 5 unit (0.05 mL) SC TIDM #15 mL 10/22/22 02/03/23 Rx (3 mL) subcutaneous pen (Novolog FlexPen U-100 Insulin aspart) insulin glargine 100 unit/mL 25 unit (0.25 mL) subcut HS #10 mL 10/22/22 02/03/23 Rx subcutaneous solution (Lantus U-100 Insulin) insulin aspart U-100 100 unit/mL See Rx Instructions .Route 10/24/22 02/03/23 History (3 mL) subcutaneous pen (Novolog .COMPLEX PRN Other FlexPen U-100 Insulin aspart) loperamide 2 mg capsule 0 mg PO Q4H PRN loose stool 10/24/22 02/03/23 History vitamin B complex and vitamin C 0 cap PO QAM 10/24/22 02/03/23 History no.20-folic acid 1 mg capsule (Renal Caps) bumetanide 2 mg tablet 1 mg PO BID 12/02/22 02/03/23 History cinacalcet 30 mg tablet 30 mg PO 3XWK 12/02/22 02/03/23 History metoprolol succinate 25 mg 25 mg PO QAM #30 tabs 12/02/22 02/03/23 Rx tablet,extended release 24 hr patiromer calcium sorbitex 8.4 8.4 g PO DAILY #30 ea 12/02/22 02/03/23 Rx gram oral powder packet (Veltassa) clopidogrel 75 mg tablet (Plavix) 75 mg PO HS 02/03/23 02/03/23 History gabapentin 100 mg capsule 100 mg PO BID 02/03/23 02/03/23 History midodrine 5 mg tablet 5 mg PO 3XWK 02/03/23 02/03/23 History midodrine 5 mg tablet 5 mg PO 3XWK PRN Hypotension 02/03/23 02/03/23 History trazodone 50 mg tablet 25 mg PO HS 02/03/23 02/03/23 History Past Med/Surg History Medical History (Updated 02/03/23 @ 17:08 by Jesús Chen MD) Traumatic ulcer of left lower leg Osteopenia ESRD (end stage renal disease) Nocturnal hypoxemia Hx of Lyme disease GERD (gastroesophageal reflux disease) Vitamin D deficiency Diabetic nephropathy associated with type 2 diabetes mellitus Subclinical hypothyroidism TSH 5.180 in 01/2021 Dyslipidemia Diabetes type 2, uncontrolled Background diabetic retinopathy associated with type 2 diabetes mellitus Primary hyperparathyroidism CAD (coronary artery disease) Non obstructive (August 2009) per cardio records Morbid obesity Vocal cord paralysis syndrome Anemia History of CVA (cerebrovascular accident) (2016) Mitral regurgitation Hypertension Surgical History Rock teeth removed History of cataract surgery RT/LEFT History of vascular access device 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 (USING FOR DIALYSIS) Status post laparoscopic cholecystectomy (10/07/19) Difficult airway for intubation PT STATES HAS HAD VOCAL CORD PARAYSIS IN PAST Fiberoptic intubation used with 10/2019 lap odalis Hx of colonoscopy Hx of tubal ligation Hx of tonsillectomy Hx of eye surgery EYE MUSCLE REPAIR S/P cardiac catheterization OVER 10 YEARS AGO/NO STENTS Family History Father Family history of diabetes mellitus Aunt Family history of diabetes mellitus Uncle Family history of diabetes mellitus Brother Family history of diabetes mellitus Brother Family history of diabetes mellitus Grandmother (Maternal) Family hx of colon cancer Other Alzheimer disease Coronary heart disease No family history of adverse response to anesthesia Social History Smoking Status: Unknown if ever smoked Tobacco Type: Cigarettes Second Hand Exposure: No; Do You Dip or Chew Tobacco: No; Hx Alcohol Use: No Hx Substance Use: No Preferred Language: Hungarian Communication Ability: Effective Visual Impairment: Limited Hearing Ability: Normal 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: No Beliefs That Will Affect Care: None marital status: Current Living Situation: [facility] Current Living Situation Comment: [facility] Feels Safe at Home: Yes Diet: low salt and vegetarian caffeine: Yes Seatbelt Use: always Assistive Devices: Walker Physical Exam 2 Physical Exam: Physical Exam: General: In no acute distress, stated age, chronically ill appearing but non- toxic HEENT: Normocephalic, atraumatic, no scleral icterus, pupils around round, symmetrical, and reactive to light, dry mucus membranes, trachea midline, no thyromegaly Chest/Pulm: No respiratory distress, symmetrical chest expansion, clear breath sounds throughout Cardiac: RRR, no murmurs noted Abdomen: Negative for ascites and bruising, normoactive bowel sounds, soft, non-tender to palpation throughout Musculoskeletal: No acute trauma. Right great toenail previously removed without signs of acute bleeding, left great toe with large, chronic wound with black eschar noted Extremities: Radial, dorsalis pedis, and posterior tibial pulses are intact and symmetrical, BL symmetrical edema noted in the LE's Skin: BL LE's are erythematous Neuro: Alert and oriented to person, place, month, year, no focal defects, CN II-XII tested and intact, no tremors noted Psych: No acute distress, calm and cooperative during the exam Results & Data Results & Data Vital Signs (Past 12 Hours) Vital Signs Temp Pulse Resp BP Pulse Ox O2 Del Method 02/03/23 13:05 77 02/03/23 12:33 36.7 C 82 20 110/55 L 97 Room Air Laboratory Results Abnormal lab results 02/03/23 02/03/23 Range/Units 13:54 13:54 RBC 4.14 L (4.20-5.40) M/uL MCHC 31.9 L (32.0-36.0) g/dL RDW Std Deviation 52.4 H (36.4-46.3) fL RDW Coeff of Braeden 15.3 H (11.5-14.5) % Neut # (Auto) 6.86 H (1.40-6.50) K/uL Hamilton # (Auto) 1.05 H (0.11-0.59) K/uL Potassium 3.2 L (3.5-5.1) mmol/L Chloride 95 L (98-107) mmol/L Anion Gap 13 H (3-11) BUN 42 H (6-23) mg/dl Creatinine 4.15 H (0.6-1.2) mg/dl Glucose 195 H (70-99(Fasting)) mg/dl Alkaline Phosphatase 116 H (34-104) U/L Diagnostic Findings Chest X-Ray 02/03/23 14:57 XR chest 1V portable HISTORY: hypotension, ams COMPARISON: Chest 10/24/2022. FINDINGS: The cardiac silhouette remains enlarged. A right jugular catheter terminates at the right atrium. This remains unchanged. There is mild central pulmonary vascular congestion without overt edema. No pleural effusions. No pneumothorax. No focal lung consolidations to suggest a pneumonia. IMPRESSION: Cardiomegaly and mild congestive change. This is similar to the prior study. ACT 112: Negative or not required by law. Electronically signed by: Malik Montanez M.D. 02/03/2023 4:06 PM Venous Doppler Study 02/03/23 15:09 ULTRASOUND BILATERAL LOWER EXTREMITY VENOUS CLINICAL HISTORY: Lower extremity edema. COMPARISON STUDY: Left lower extremity venous ultrasound dated 09/04/2022. TECHNIQUE: Real-time, grayscale, and color Doppler sonography of the deep veins of the right and left lower extremity was performed from the inguinal crease to the calf. Compression and augmentation were utilized. FINDINGS: There is no sonographic evidence of deep venous thrombosis identified in the right or left lower extremity. The common femoral, superficial femoral, and popliteal veins are patent and normally compressible bilaterally. The greater saphenous vein and the profunda femoris vein at the junction with the common femoral vein are clear in both legs. The visualized calf veins are patent bilaterally. Soft tissue edema is present in both legs. IMPRESSION: There is no sonographic evidence of deep venous thrombosis identified in the right or left lower extremity. ACT 112: Negative or not required by law. Electronically signed by: Donovan Marinelli M.D. 02/03/2023 5:05 PM Toe X-Ray 02/03/23 15:46 LEFT FIRST TOE 3 VIEWS CLINICAL HISTORY: Chronic wound. FINDINGS: 3 views of the left first toe are correlated with radiographs of the left foot dated 01/08/2021. The skeletal structures are osteopenic. Suspect a subacute horizontally oriented fracture through the proximal aspect of the first distal phalanx. No additional findings are suspicious for acute fracture. There is no bony erosion or periostitis. Soft tissue edema is present in the forefoot, greatest in the first toe. No soft tissue gas is seen. There is advanced atherosclerotic calcification of the regional arteries. IMPRESSION: 1. Suspect a subacute fracture of the first distal phalanx as above. Correlate clinically. 2. No bony erosion or periostitis is identified. 3. Soft tissue edema is noted. Electronically signed by: Donovan Marinelli M.D. 02/03/2023 5:13 PM Toe X-Ray 02/03/23 15:47 XR toe(s) RT min 2V CLINICAL HISTORY: chronic wound on right great toe COMPARISON STUDY: Right foot radiograph 10/05/2019. FINDINGS: The bones are osteopenic. Soft tissue swelling within the right first toe. No underlying bony destruction to suggest an osteomyelitis. Vascular calcifications are noted. No fracture or dislocation. IMPRESSION: Soft tissue swelling within the right first toe. No evidence for osteomyelitis. ACT 112: Negative or not required by law. Electronically signed by: Malik Montanez M.D. 02/03/2023 5:06 PM ECG Additional Comments: Will obtain at the time of admission Code Status & VTE Plan Code Status Full code VTE Prophylaxis Plan VTE Prophylaxis will be ordered: Yes Supervising Physician Co-Signing Physician Notes I personally saw and examined the patient. I verified all weaver points and agree with Saad Fernandez PA-C with the following exceptions and/or additions: 67 year old female from [facility] presents to the ER on request of nephrology due to recurrent hypotension during her dialysis sessions. This appears to be a slowly progressive worsening process rather than sudden and acute. She is already on midodrine 5mg on dialysis days. Trazodone and metoprolol have been continued. O/E Chronically ill appearing, HS RRR, systolic murmur loudest in LUSB, Chest CTAB, Abdo SNT, no CVA tenderness, b/l leg erythema per pictures above without warmth, skin is wrinkled rather than swollen A/P Hypotension - during dialysis. At this point if no reversible etiology is found - no infection is suspected then recommend discontinuing all medications possibly contributing with includes metoprolol and trazodone. Can use Ambien as needed for insomnia. Clearly ideally with her LVEF 25-30% we would re-introduce the metoprolol succinate as able but the goal currently is to stabilize BP enough to continue dialysis on an outpatient basis. She produces minimal urine and is dialysis dependant therefore will also discontinue Bumex in addition. Increase midodrine to 10mg on dialysis days. F/U blood culture but low suspicion of infection in her legs at this time - appears consistent with venous stasis. ESRD on dialysis - consult nephrology. PG Care Time/CCT Total # of Minutes Spent Total Time Spent with Patient: Total time spent is greater than 50% in coordination of care (as documented) at patient's floor/unit and/or counseling patient: Coding [place] [address] INT INP/OBS CARE 2/55MIN Patient Type Established Medical Decision Making Moderate Complexity Diagnoses Hypotension of hemodialysis I95.3 ESRD (end stage renal disease) N18.6 Leg swelling M79.89 Acute alteration in mental status R41.82 CAD (coronary artery disease) I25.10 GERD (gastroesophageal reflux disease) K21.9 History of CVA (cerebrovascular accident) Z86.73 Diabetes type 2, uncontrolled E11.65
--- NOTE | 2023-02-03 16:08 | XRay Report ---
XR chest 1V portable HISTORY: hypotension, ams COMPARISON: Chest 10/24/2022. FINDINGS: The cardiac silhouette remains enlarged. A right jugular catheter terminates at the right a trium. This remains unchanged. There is mild central pulmonary vascular congestion without overt juan a. No pleural effusions. No pneumothorax. No focal lung consolidations to suggest a pneumonia. IMPRESSION: Cardiomegaly and mild congestive change. This is similar to the prior study. ACT 112: Negative or not required by law. Electronically signed by: Malik Montanez M.D. 02/03/2023 4:06 PM
[2023-02-03] MEDS: INSULIN ASPART PER UNIT CHARGE SC SCH ×2 (16:30→20:58)
--- NOTE | 2023-02-03 17:06 | Ultrasound Report ---
ULTRASOUND BILATERAL LOWER EXTREMITY VENOUS CLINICAL HISTORY: Lower extremity edema. COMPARISON STUDY: Left lower extremity venous ultrasound dated 09/04/2022. TECHNIQUE: Real-time, grayscale, and color Doppler sonography of the deep veins of the right and left lower extremity was performed from the inguinal crease to the calf. Compression and augmentation wer e utilized. FINDINGS: There is no sonographic evidence of deep venous thrombosis identified in the right or left lower extremity. The common femoral, superficial femoral, and popliteal veins are patent and normally compressible bilaterally. The greater saphenous vein and the profunda femoris vein at the junction w ith the common femoral vein are clear in both legs. The visualized calf veins are patent bilaterally. Soft tissue edema is present in both legs. IMPRESSION: There is no sonographic evidence of deep venous thrombosis identified in the right or lef t lower extremity. ACT 112: Negative or not required by law. Electronically signed by: Donovan Marinelli M.D. 02/03/2023 5:05 PM
--- NOTE | 2023-02-03 17:07 | XRay Report ---
XR toe(s) RT min 2V CLINICAL HISTORY: chronic wound on right great toe COMPARISON STUDY: Right foot radiograph 10/05/2019. FINDINGS: The bones are osteopenic. Soft tissue swelling within the right first toe. No underlying livan ny destruction to suggest an osteomyelitis. Vascular calcifications are noted. No fracture or disloca tion. IMPRESSION: Soft tissue swelling within the right first toe. No evidence for osteomyelitis. ACT 112: Negative or not required by law. Electronically signed by: Malik Montanez M.D. 02/03/2023 5:06 PM
--- NOTE | 2023-02-03 17:14 | XRay Report ---
LEFT FIRST TOE 3 VIEWS CLINICAL HISTORY: Chronic wound. FINDINGS: 3 views of the left first toe are correlated with radiographs of the left foot dated 021. The skeletal structures are osteopenic. Suspect a subacute horizontally oriented fracture throug h the proximal aspect of the first distal phalanx. No additional findings are suspicious for acute fr acture. There is no bony erosion or periostitis. Soft tissue edema is present in the forefoot, greate st in the first toe. No soft tissue gas is seen. There is advanced atherosclerotic calcification of t he regional arteries. IMPRESSION: 1. Suspect a subacute fracture of the first distal phalanx as above. Correlate clinically. 2. No bony erosion or periostitis is identified. 3. Soft tissue edema is noted. Electronically signed by: Donovan Marinelli M.D. 02/03/2023 5:13 PM
--- NOTE | 2023-02-03 18:06 | Nephrology Consultation ---
Date of Consultation February 03, 2023 Assessment & Plan (1) ESRD (end stage renal disease): HD treatment will be arranged for tomorrow. Delfina has volume overload requiring additional dialysis. No emergent indication. Outpatient Rx: MWF Revaclear 300 x 4 hours Qb 400 via TDC. Catheter has been functioning well. Delfina has refused AVF use. Medications are appropriately dosed for kidney function. Renal diet. (2) Hypotension of hemodialysis: Midodrine pretreatment. Additional treatment time will be provided. Temp and UF profile adjusted. Metoprolol held prior to dialysis. Midodrine provided with treatment. (3) Hypotensive episode: Appreciate hospitalist service evaluation for possible infectious or alternative etiology. (4) Cardiomyopathy: Cardiology evaluation completed in October. TTE updated in December. Unfortunately high risk for cardiac complications. (5) Failure to thrive in adult: Goals of care continually reviewed. History of Present Illness Reason for Consultation: Nephrology requesting admission for extended HD Requesting Physician: Chris Teran MD Attending Physician: Chris Teran MD History of Present Illness Kinza Reyna is a 67 year-old female with ESKD. She is maintained on IHD MWF at [facility]. Her prescription is 4 hours on a Revaclear 300 at Qb 400 with a 2K 2.5 calcium bath. EDW is 88.5 kg. Delfina dialyzes using a TDC placed by Dr. Luke. AVF was placed in May 2021 but the patient has refused to allow use. ESKD attributed to diabetic kidney disease. 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 She unfortunately has not been tolerating hemodialysis well. I evaluated her during dialysis last week and had a long conversation with the patient and her (Javy) regarding Delfina's condition and the plan of care. Recent concerns have included refractory hypervolemia and hyperkalemia. Delfina has difficulty completing dialysis treatments due to back and leg pain during treatment. Extending treatment time has not been an option and we are not able to schedule additional dialysis treatments at [facility]. Unfortunately, fluid removal has been complicated by intradialytic hypo tension. Delfina has also experienced concerning mental status changes during dialysis. The risks of or hospitalization associated with hyperkalemia and volume overload have been reviewed. Delfina and Javy understood the concerns. Javy mentioned that he was hoping to bring Delfina home in the near future. His concerns also included progressive debility. Delfina entered [facility] hoping to improve her strength so she could return home. She remains a max assist with Davi lift used for transfer. I have received conflicting information regarding functional status from the patient and the staff at [facility]. Delfina told me that she has been walking the halls without difficulty and requiring minimal assistance except to prepare meals. Javy has discussed his concerns with Dr. Mcgarry at [facility]. Javy has recognized cognitive decline in his as well. I also reviewed the patient's recent history and plan of care with Dr. Mcgarry. Delfina recently completed a course of Keflex for lower extremity cellulitis. IDWG remains excessive. Lower extremity and dependent edema increasing. She was started on daily SPS approximately 1 week ago for hyperkalemia (potassium 7 mmol/L). Delfina was unable to tolerate Lokelma or Patiromer due to palatability. We have documented clearance of potassium with HD. She reports working with staff at [facility] to maintain appropriate dietary sodium, potassium, and fluid restriction. Unfortunately, staff at [facility] report non-adherence with these dietary recommendations. Hyperphosphatemia also a health concern. Delfina has demonstrated progressive volume overload. She presented significantly above EDW today. We were only able to remove <2 L over 3 hours of treatment. She tolerated fluid removal better with sequential mode UF. Temp adjustment has also been used in the past. Midodrine is provided with treatment. Midodrine 5 mg x 3 doses provided during HD today. Delfina was significantly hypotensive and confused during treatment and evaluation was provided by Malgorzata Shrestha NP who contacted me. I also discussed the patient with Dr. Mcgarry at [facility] and Dr. Chen in the ER at [facility]. She was referred for evaluation of hypotension, encephalopathy, as well as failure of outpatient HD requiring additional dialysis for volume control. Delfina was admitted to the hospitalist service so that HD could be coordinated for tomorrow and to complete an evaluation/monitoring for her blood pressure and possible infection. I discussed the plan of care with Saad Fernandez PA-C this evening. Past medical history is also notable for coronary artery disease and reduced LVEF (~25-30%) as well as primary hyperparathyroidism. She has notable LE chronic stasis changes and a couple areas of open ulceration on her toes. Allergies Allergy/AdvReac Type Severity Reaction Status Date / Time dulaglutide [From [facility]] Allergy Intermediate Hives Verified 12/09/22 13:57 atorvastatin AdvReac Intermediate Statin Verified 12/09/22 13:57 Cardiomyopathy erythromycin base AdvReac Intermediate Vomiting Verified 12/09/22 13:57 Home Medications Medication Instructions Recorded Confirmed Type blood-glucose sensor (Dexcom G6 #3 ea 06/24/21 10/22/22 Rx Sensor device) blood-glucose transmitter (Dexcom #1 ea 06/24/21 10/22/22 Rx G6 Transmitter device) blood-glucose meter (OneTouch #1 ea 11/25/21 10/22/22 Rx Ultra2 Meter kit) lancets (OneTouch UltraSoft #200 ea 11/25/21 10/22/22 Rx Lancets) BD Ultra-Fine Gwen Pen Needle 32 #500 ea 08/10/22 10/22/22 Rx gauge x 5/32" (pen needle, diabetic) blood sugar diagnostic (OneTouch #200 ea 08/10/22 10/22/22 Rx Ultra Test strips) cholecalciferol (vitamin D3) 125 125 mcg PO DAILY #45 caps 09/07/22 02/03/23 Rx mcg (5,000 unit) capsule pantoprazole 40 mg tablet,delayed 40 mg PO QAM 09/16/22 02/03/23 History release sevelamer carbonate 800 mg tablet 800 mg PO TID #270 tabs 10/20/22 02/03/23 Rx insulin aspart U-100 100 unit/mL 5 unit (0.05 mL) SC TIDM #15 mL 10/22/22 02/03/23 Rx (3 mL) subcutaneous pen (Novolog FlexPen U-100 Insulin aspart) insulin glargine 100 unit/mL 25 unit (0.25 mL) subcut HS #10 mL 10/22/22 02/03/23 Rx subcutaneous solution (Lantus U-100 Insulin) insulin aspart U-100 100 unit/mL See Rx Instructions .Route 10/24/22 02/03/23 History (3 mL) subcutaneous pen (Novolog .COMPLEX PRN Other FlexPen U-100 Insulin aspart) loperamide 2 mg capsule 0 mg PO Q4H PRN loose stool 10/24/22 02/03/23 History vitamin B complex and vitamin C 0 cap PO QAM 10/24/22 02/03/23 History no.20-folic acid 1 mg capsule (Renal Caps) bumetanide 2 mg tablet 1 mg PO BID 12/02/22 02/03/23 History cinacalcet 30 mg tablet 30 mg PO 3XWK 12/02/22 02/03/23 History metoprolol succinate 25 mg 25 mg PO QAM #30 tabs 12/02/22 02/03/23 Rx tablet,extended release 24 hr patiromer calcium sorbitex 8.4 8.4 g PO DAILY #30 ea 12/02/22 02/03/23 Rx gram oral powder packet (Veltassa) clopidogrel 75 mg tablet (Plavix) 75 mg PO HS 02/03/23 02/03/23 History gabapentin 100 mg capsule 100 mg PO BID 02/03/23 02/03/23 History midodrine 5 mg tablet 5 mg PO 3XWK 02/03/23 02/03/23 History midodrine 5 mg tablet 5 mg PO 3XWK PRN Hypotension 02/03/23 02/03/23 History trazodone 50 mg tablet 25 mg PO HS 02/03/23 02/03/23 History Patient History Medical History (Updated 02/03/23 @ 17:08 by Jesús Chen MD) Anemia Background diabetic retinopathy associated with type 2 diabetes mellitus CAD (coronary artery disease) Non obstructive (August 2009) per cardio records Diabetes type 2, uncontrolled Diabetic nephropathy associated with type 2 diabetes mellitus Dyslipidemia ESRD (end stage renal disease) GERD (gastroesophageal reflux disease) History of CVA (cerebrovascular accident) (2016) Hx of Lyme disease Hypertension Mitral regurgitation Morbid obesity Nocturnal hypoxemia Osteopenia Primary hyperparathyroidism Subclinical hypothyroidism TSH 5.180 in 01/2021 Traumatic ulcer of left lower leg Vitamin D deficiency Vocal cord paralysis syndrome Surgical History Difficult airway for intubation PT STATES HAS HAD VOCAL CORD PARAYSIS IN PAST Fiberoptic intubation used with 10/2019 lap odalis History of cataract surgery RT/LEFT History of vascular access device 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 (USING FOR DIALYSIS) Hx of colonoscopy Hx of eye surgery EYE MUSCLE REPAIR Hx of tonsillectomy Hx of tubal ligation S/P cardiac catheterization OVER 10 YEARS AGO/NO STENTS Status post laparoscopic cholecystectomy (10/07/19) [place] teeth removed Family History Father Family history of diabetes mellitus Aunt Family history of diabetes mellitus Uncle Family history of diabetes mellitus Brother Family history of diabetes mellitus Brother Family history of diabetes mellitus Grandmother (Maternal) Family hx of colon cancer Other Alzheimer disease Coronary heart disease No family history of adverse response to anesthesia Social History Smoking Status: Unknown if ever smoked Tobacco Type: Cigarettes Second Hand Exposure: No; Do You Dip or Chew Tobacco: No; Hx Alcohol Use: No Hx Substance Use: No Preferred Language: Salvadorean Communication Ability: Effective Visual Impairment: No Limitations Hearing Ability: Normal Bed And Breakfast Innkeeper Required: No Beliefs That Will Affect Care: None marital status: Current Living Situation: Prison Current Living Situation Comment: [facility] Feels Safe at Home: Yes Diet: low salt and vegetarian caffeine: Yes Seatbelt Use: always Assistive Devices: Walker Review of Systems Review of Systems: All systems reviewed & are unremarkable except as noted in HPI & below Physical Exam Constitutional: + frail appearing; no acute distress Eyes: + anicteric sclerae; no corneal abnormality ENMT: Mouth: no oral mucosal abnormality and oral mucous membranes not dry Neck: normal visual inspection and trachea midline Respiratory: normal respiratory effort Auscultation: + rales Cardiovascular: Rate/Rhythm: regular rate Heart Sounds: normal S1, normal S2 and + murmur Extremities: + edema Musculoskeletal: Extremities: no cyanosis and no clubbing Skin: + erythema and + skin hypertrophy; no jaundice Neurologic: Motor/Sensory: no tremor and no asterixis Psychiatric: Orientation: alert and oriented x 3 Results & Data Vital Signs (Past 12 Hours) Vital Signs Temp Pulse Pulse Resp BP BP Pulse Ox 02/03/23 17:03 93 H 02/03/23 16:50 94 H 16 102/50 L 97 02/03/23 13:05 77 02/03/23 12:33 36.7 C 82 20 110/55 L 97 O2 Del Method 02/03/23 17:03 02/03/23 16:50 Room Air 02/03/23 13:05 02/03/23 12:33 Room Air Laboratory Results Laboratory Results - last 24 hr 02/03/23 02/03/23 02/03/23 13:54 13:54 17:24 WBC 9.92 RBC 4.14 L Hgb 12.2 Hct 38.2 MCV 92.3 MCH 29.5 MCHC 31.9 L RDW Std Deviation 52.4 H RDW Coeff of Braeden 15.3 H Plt Count 252 MPV 10.3 Immature Gran % (Auto) 0.3 Neut % (Auto) 69.2 Lymph % (Auto) 15.4 [place] % (Auto) 10.6 Eos % (Auto) 3.6 Baso % (Auto) 0.9 Neut # (Auto) 6.86 H Lymph # (Auto) 1.53 [place] # (Auto) 1.05 H Eos # (Auto) 0.36 Baso # (Auto) 0.09 Immature Gran # (Auto) 0.03 Sodium 137 Potassium 3.2 L Chloride 95 L Carbon Dioxide 29 Anion Gap 13 H BUN 42 H Creatinine 4.15 H Est Cr Clr Drug Dosing 14.9 Est GFR ( Amer) 12.1 Est GFR (Non-Af Amer) 10.4 BUN/Creatinine Ratio 10.1 Glucose 195 H Lactate Pending Calcium 8.9 Magnesium 2.2 Total Bilirubin 0.4 Direct Bilirubin 0.0 AST 19 ALT 15 Alkaline Phosphatase 116 H Total Protein 8.0 Albumin 3.4 Procalcitonin 02/03/23 17:24 WBC RBC Hgb Hct MCV MCH MCHC RDW Std Deviation RDW Coeff of Braeden Plt Count MPV Immature Gran % (Auto) Neut % (Auto) Lymph % (Auto) [place] % (Auto) Eos % (Auto) Baso % (Auto) Neut # (Auto) Lymph # (Auto) [place] # (Auto) Eos # (Auto) Baso # (Auto) Immature Gran # (Auto) Sodium Potassium Chloride Carbon Dioxide Anion Gap BUN Creatinine Est Cr Clr Drug Dosing Est GFR ( Amer) Est GFR (Non-Af Amer) BUN/Creatinine Ratio Glucose Lactate Calcium Magnesium Total Bilirubin Direct Bilirubin AST ALT Alkaline Phosphatase Total Protein Albumin Procalcitonin Pending Diagnostic Findings ULTRASOUND BILATERAL LOWER EXTREMITY VENOUS COMPARISON STUDY: Left lower extremity venous ultrasound dated 09/04/2022. FINDINGS: There is no sonographic evidence of deep venous thrombosis identified in the right or left lower extremity. The common femoral, superficial femoral, and popliteal veins are patent and normally compressible bilaterally. The greater saphenous vein and the profunda femoris vein at the junction with the common femoral vein are clear in both legs. The visualized calf veins are patent bilaterally. Soft tissue edema is present in both legs. IMPRESSION: There is no sonographic evidence of deep venous thrombosis identified in the right or left lower extremity. R chest 1V portable COMPARISON: Chest 10/24/2022. FINDINGS: The cardiac silhouette remains enlarged. A right jugular catheter terminates at the right atrium. This remains unchanged. There is mild central pulmonary vascular congestion without overt edema. No pleural effusions. No pneumothorax. No focal lung consolidations to suggest a pneumonia. IMPRESSION: Cardiomegaly and mild congestive change. This is similar to the prior study. PG Care Time/CCT Total # of Minutes Spent Total Time Spent with Patient: Total time spent is greater than 50% in coordination of care (as documented) at patient's floor/unit and/or counseling patient: Coding Level of Care Code 69383 INT INP/OBS CARE 3/75MIN Diagnoses ESRD (end stage renal disease) N18.6 Hypotension of hemodialysis I95.3 Hypotensive episode I95.9 Cardiomyopathy I42.9 Failure to thrive in adult R62.7
[2023-02-03] MEDS: CINACALCET HCL 30 MG TAB PO SCH (18:24)
[2023-02-03] MEDS: SEVELAMER HCL 800 MG TABLET PO SCH (18:24)
[2023-02-03] MEDS ORDERED: LANTUS PER UNIT CHARGE SQ SCH (21:00)
[2023-02-03] MEDS: HEPARIN SOD 5,000 UNIT/0.5 ML VIAL SQ SCH (22:26)
[2023-02-03] MEDS: CLOPIDOGREL BISULFATE 75 MG TAB PO SCH (23:24)
[2023-02-03] MEDS: GABAPENTIN 100 MG CAP PO SCH (23:24)
[2023-02-04] MEDS: INSULIN ASPART PER UNIT CHARGE SC SCH ×6 (00:23→21:09)
[2023-02-04] MEDS ORDERED: MIDODRINE HCL 10 MG TAB PO ONE ×2 (06:00→07:00)
[2023-02-04] MEDS ORDERED: ACETAMINOPHEN 325 MG TAB PO PRN (06:05)
[2023-02-04 06:06] LABS: Basophils # (auto) 0.09 K/uL (0.00-0.20); Basophils % (auto) 1.2 %; Eosinophils # (auto) 0.29 K/uL (0.00-0.50); Hematocrit (blood only) 35.4 % (37.0-47.0); Hemoglobin 11.3 g/dl (12.0-16.0); Immature Granulocytes # (auto) 0.01 K/uL (0.01-0.20); Immature Granulocytes % (auto) 0.1 %; Lymphocytes # (auto) 1.67 K/uL (1.20-3.40); Lymphocytes % (auto) 22.8 %; Mean Corpuscular Hemoglobin 29.7 pg (25.0-34.0); Mean Corpuscular Hgb Conc 31.9 g/dL (32.0-36.0); Mean Corpuscular Volume 92.9 fL (80.0-100.0); Mean Platelet Volume 10.1 fL (9.4-12.4); Monocytes # (auto) 1.04 K/uL (0.11-0.59); Monocytes % (auto) 14.2 %; Neutrophils # (auto) 4.23 K/uL (1.40-6.50); Neutrophils % (auto) 57.7 %; Platelet Count 256 K/uL (130-400); RDW Coefficient of Variation 15.3 % (11.5-14.5); RDW Standard Deviation 52.4 fL (36.4-46.3); Red Blood Count 3.81 M/uL (4.20-5.40); White Blood Count 7.33 K/ul (4.8-10.8)
[2023-02-04 06:31] LABS: Albumin Globulin Ratio 0.8 (0.9-2); Albumin Level 3.2 gm/dl (3.4-5.0); BUN Creatinine Ratio 10.8 (10-20); Bilirubin,Total 0.5 mg/dl (0.2-1.0); Creatinine Clr Calc Pharmacy 10.5 ml/min; Est GFR (African American) 7.9 ml/min; Est GFR (Non-African American) 6.8 ml/min; Globulin 4.2 gm/dl (2.5-4.0); Magnesium 2.5 mg/dl (1.7-2.4); Potassium 3.7 mmol/L (3.5-5.1); Total Protein 7.4 gm/dl (6.0-8.3)
[2023-02-04] MEDS ORDERED: ACETAMINOPHEN 1,000 MG/100 ML VIAL IV PRN (06:31)
[2023-02-04 06:59] LABS: Prothrombin Time 10.9 Seconds (9.0-12.0)
[2023-02-04] MEDS: NEPHROCAPS PO SCH (08:57)
[2023-02-04] MEDS: GABAPENTIN 100 MG CAP PO SCH ×2 (08:57→21:09)
[2023-02-04] MEDS: HEPARIN SOD 5,000 UNIT/0.5 ML VIAL SQ SCH ×2 (08:58→21:08)
[2023-02-04] MEDS: PANTOprazole 40 MG TAB PO SCH (08:58)
[2023-02-04] MEDS: SEVELAMER HCL 800 MG TABLET PO SCH ×3 (09:00→16:25)
[2023-02-04] MEDS ORDERED: MoRPHine SULFATE 2 MG/ML CARP IV STA (10:16)
--- NOTE | 2023-02-04 10:17 | Nephrology Progress Note ---
Date of Service February 04, 2023 Assessment & Plan (1) ESRD (end stage renal disease): Plan: Orders for HD entered into the EHR and reviewed with needle punch machine operator. Tolerating HD reasonably well. Catheter with adequate Qb. Tolerating fluid removal. Crit line monitoring provided. BP acceptable. Outpatient Rx: MWF Revaclear 300 x 4 hours Qb 400 via TDC. Delfina has refused AVF use. Medications are appropriately dosed for kidney function. Renal diet. (2) Hypotension of hemodialysis: Plan: Midodrine pretreatment. Metoprolol held prior to dialysis. (3) Hypotensive episode: Plan: Appreciate hospitalist service evaluation. No infection identified. No concerning acute cardiac findings. BP improved this AM. (4) Cardiomyopathy: Plan: Unfortunately high risk for cardiac complications. Goals of care updated continually. (5) Failure to thrive in adult: Plan: This unfortunately seems to be biggest factor contributing to Delfina's admission. Admission and Anticipated Discharge Date Admission Date: February 03, 2023 Subjective No acute events overnight. Delfina was seen and evaluated prior to and during hemodialysis. No complaints initially. After starting treatment reported pain from knees to ankles in both legs. Delfina states that this pain started a few days ago. It has been relatively persistent though waxing and waning. No specific injury or trigger identified. The legs are tender to touch. She is otherwise tolerating dialysis well. BP acceptable. Crit monitor profile B. BP acceptable. No fevers or chills. Review of Systems Review of Systems: All systems reviewed & are unremarkable except as noted in HPI & below Physical Exam Constitutional: + frail appearing and + in distress (unc omfortable. crying during HD. limited ability to move in bed due to LBP) Eyes: + anicteric sclerae; no corneal abnormal ity ENMT: Mouth: no oral mucosal abnormality and oral mucous membranes not dry Neck: normal visual inspection and trachea midline Respiratory: normal respiratory effort Auscultation: lungs clear to auscultation bilaterally (anteriorly) Cardiovascular: Rate/Rhythm: regular rate Heart Sounds: normal S1, normal S2 and + murmur Extremities: + edema Musculoskeletal: Extremities: no cyanosis and no clubbing Skin: normal turgor, + erythema and + skin hypertrophy; no lesions and no jaundice Neurologic: Motor/Sensory: no tremor and no asterixis Psychiatric: Orientation: alert and oriented x 3 Results & Data Vital Signs (Past 12 Hours) Vital Signs Temp Pulse Pulse Resp BP BP Pulse Ox 02/04/23 08:06 37.0 C 94 H 18 98/63 L 93 02/04/23 07:27 97 H 02/04/23 02:59 36.9 C 98 H 18 91/58 L 94 02/04/23 01:28 02/03/23 22:53 37.6 C H 97 H 18 97/59 L 94 O2 Del Method 02/04/23 08:06 Room Air 02/04/23 07:27 02/04/23 02:59 Room Air 02/04/23 01:28 Room Air 02/03/23 22:53 Room Air Laboratory Results Laboratory Results - last 24 hr 02/03/23 02/03/23 02/03/23 13:54 17:24 19:58 WBC 9.92 RBC 4.14 L Hgb 12.2 Hct 38.2 MCV 92.3 MCH 29.5 MCHC 31.9 L RDW Std Deviation 52.4 H RDW Coeff of Braeden 15.3 H Plt Count 252 MPV 10.3 Immature Gran % (Auto) 0.3 Neut % (Auto) 69.2 Lymph % (Auto) 15.4 [place] % (Auto) 10.6 Eos % (Auto) 3.6 Baso % (Auto) 0.9 Neut # (Auto) 6.86 H Lymph # (Auto) 1.53 [place] # (Auto) 1.05 H Eos # (Auto) 0.36 Baso # (Auto) 0.09 Immature Gran # (Auto) 0.03 PT INR Sodium 137 Potassium 3.2 L Chloride 95 L Carbon Dioxide 29 Anion Gap 13 H BUN 42 H Creatinine 4.15 H Est Cr Clr Drug Dosing 14.9 Est GFR ( Amer) 12.1 Est GFR (Non-Af Amer) 10.4 BUN/Creatinine Ratio 10.1 Glucose 195 H POC Glucose Lactate 2.5 H* 1.9 Calcium 8.9 Magnesium 2.2 Total Bilirubin 0.4 Direct Bilirubin 0.0 AST 19 ALT 15 Alkaline Phosphatase 116 H Total Protein 8.0 Albumin 3.4 Globulin Albumin/Globulin Ratio Procalcitonin 0.39 Nasal Screen MRSA (PCR) 02/03/23 02/03/23 02/03/23 20:50 21:38 21:41 WBC RBC Hgb Hct MCV MCH MCHC RDW Std Deviation RDW Coeff of Braeden Plt Count MPV Immature Gran % (Auto) Neut % (Auto) Lymph % (Auto) [place] % (Auto) Eos % (Auto) Baso % (Auto) Neut # (Auto) Lymph # (Auto) [place] # (Auto) Eos # (Auto) Baso # (Auto) Immature Gran # (Auto) PT INR Sodium Potassium Chloride Carbon Dioxide Anion Gap BUN Creatinine Est Cr Clr Drug Dosing Est GFR ( Amer) Est GFR (Non-Af Amer) BUN/Creatinine Ratio Glucose POC Glucose 337 H* 364 H* 351 H* Lactate Calcium Magnesium Total Bilirubin Direct Bilirubin AST ALT Alkaline Phosphatase Total Protein Albumin Globulin Albumin/Globulin Ratio Procalcitonin Nasal Screen MRSA (PCR) 02/04/23 02/04/23 02/04/23 00:03 00:10 05:01 WBC RBC Hgb Hct MCV MCH MCHC RDW Std Deviation RDW Coeff of Braeden Plt Count MPV Immature Gran % (Auto) Neut % (Auto) Lymph % (Auto) [place] % (Auto) Eos % (Auto) Baso % (Auto) Neut # (Auto) Lymph # (Auto) [place] # (Auto) Eos # (Auto) Baso # (Auto) Immature Gran # (Auto) PT INR Sodium Potassium Chloride Carbon Dioxide Anion Gap BUN Creatinine Est Cr Clr Drug Dosing Est GFR ( Amer) Est GFR (Non-Af Amer) BUN/Creatinine Ratio Glucose POC Glucose 239 H 88 Lactate Calcium Magnesium Total Bilirubin Direct Bilirubin AST ALT Alkaline Phosphatase Total Protein Albumin Globulin Albumin/Globulin Ratio Procalcitonin Nasal Screen MRSA (PCR) Positive A 02/04/23 02/04/23 05:45 08:00 WBC 7.33 RBC 3.81 L Hgb 11.3 L Hct 35.4 L MCV 92.9 MCH 29.7 MCHC 31.9 L RDW Std Deviation 52.4 H RDW Coeff of Braeden 15.3 H Plt Count 256 MPV 10.1 Immature Gran % (Auto) 0.1 Neut % (Auto) 57.7 Lymph % (Auto) 22.8 [place] % (Auto) 14.2 Eos % (Auto) 4.0 Baso % (Auto) 1.2 Neut # (Auto) 4.23 Lymph # (Auto) 1.67 [place] # (Auto) 1.04 H Eos # (Auto) 0.29 Baso # (Auto) 0.09 Immature Gran # (Auto) 0.01 PT 10.9 INR 1.0 Sodium 139 Potassium 3.7 Chloride 98 Carbon Dioxide 26 Anion Gap 15 H BUN 64 H D Creatinine 5.90 H* D Est Cr Clr Drug Dosing 10.5 Est GFR ( Amer) 7.9 Est GFR (Non-Af Amer) 6.8 BUN/Creatinine Ratio 10.8 Glucose 89 POC Glucose 82 Lactate Calcium 9.0 Magnesium 2.5 H Total Bilirubin 0.5 Direct Bilirubin AST 16 ALT 13 Alkaline Phosphatase 105 H Total Protein 7.4 Albumin 3.2 L Globulin 4.2 H Albumin/Globulin Ratio 0.8 L Procalcitonin Nasal Screen MRSA (PCR) PG Care Time/CCT Total # of Minutes Spent Total Time Spent with Patient: Total time spent is greater than 50% in coordination of care (as documented) at patient's floor/unit and/or counseling patient: Coding Level of Care Code 04887 SUB INP/OBS CARE 3/50MIN Diagnoses ESRD (end stage renal disease) N18.6 Hypotension of hemodialysis I95.3 Hypotensive episode I95.9 Cardiomyopathy I42.9 Failure to thrive in adult R62.7
[2023-02-04] MEDS: MoRPHine SULFATE 2 MG/ML CARP IV PRN ×3 (10:35→16:22)
[2023-02-04] MEDS ORDERED: PATIROMER CALCIUM SORBITEX 8.4 GM PACK PO SCH (12:00)
--- NOTE | 2023-02-04 12:05 | Electrocardiogram Report ---
Test Reason : Blood Pressure : / mmHG Vent. Rate : 085 BPM Atrial Rate : 085 BPM P-R Int : 196 ms QRS Dur : 080 ms QT Int : 394 ms P-R-T Axes : 050 015 -83 degrees QTc Int : 468 ms Normal sinus rhythm Minimal voltage criteria for LVH, may be normal variant Prolonged QT Abnormal ECG When compared with ECG of 24-OCT-2022 07:40, Borderline criteria for Anterior infarct are no longer Present ST now depressed in Anterior leads T wave inversion now evident in Anterolateral leads Confirmed by Jesse Fontenot [id number] on 02/04/2023 12:04:24 PM Referred By: REFERRED SELF Confirmed By:Cliff Fontenot
--- NOTE | 2023-02-04 15:45 | Hospitalist Progress Note ---
Date of Service February 04, 2023 Assessment & Plan (1) Hypotension of hemodialysis: Plan: Rule out occult infection. Midodrine ordered. Appreciate nephrology consultation and hemodialysis orders. Blood cultures are negative to date (2) ESRD (end stage renal disease): Plan: Appreciate nephrology consultation and recommendations. MWF HD, follows with Dr. Garcia. Renal diet. Serial labs (3) Leg swelling: Plan: Venous Dopplers negative for DVT bilaterally. CK is normal at 22. Arterial Doppler evaluation bilateral lower extremities pending. No overt CHF seen on chest x-ray (4) Acute alteration in mental status: Plan: Acute metabolic encephalopathy present on admission. Now resolved. Supportive care. (5) CAD (coronary artery disease): Plan: Stable. Continue current medical management (6) GERD (gastroesophageal reflux disease): Plan: Stable. Continue PPI therapy (7) History of CVA (cerebrovascular accident): Plan: Stable. Continue plavix (8) Diabetes type 2, uncontrolled: Plan: Diabetic diet. Basal insulin therapy. Sliding scale coverage. Plan To be determined Admission and Anticipated Discharge Date Admission Date: February 03, 2023 Subjective The patient was seen in dialysis. She is awake and alert. She is complaining of lower extremity pain, left side greater than right below the knee. Toes on the left foot are dusky. CK is normal at 22. Arterial Doppler of bilateral lower extremities ordered and pending. She has chronic appearing dermatitis of both lower extremities and pain seems to be out of proportion to the possibility of underlying cellulitis. She has no fever. Venous Doppler of both legs negative for DVT. Blood cultures are negative to date. Podiatry consultation pending. Parenteral pain control measures with morphine ordered Review of Systems 2 Review of Systems: Constitutional-no fever or chills ENT-no blurred vision, no double vision, no epistaxis, no sore throat Respiratory-no cough, no wheezing, no shortness of breath Cardiac-no palpitations, no chest pain, no syncope GI-no nausea, vomiting, diarrhea, melena, hematochezia -no urinary retention, no urinary incontinence, no dysuria, no hematuria Musculoskeletal-painful bilateral lower extremities below the knees, left greater than right Skin-chronic stasis dermatitis bilateral lower extremities below the knees Neuro-no isolated weakness, no paresthesia Psych-no depression, no anxiety Physical Exam 2 Physical Exam: General-alert and oriented x3, no fevers, no chills HEENT-head atraumatic and normocephalic, pupils equal and reactive to light, extraocular muscles intact Neck-no lymphadenopathy or thyromegaly, trachea midline Chest-clear to auscultation percussion. No rales wheezing or rhonchi Cardiac-regular rate and rhythm, normal S1 and S2, no murmurs Abdomen-normal bowel sounds, nontender, no hepatosplenomegaly Extremities-all toes on the left foot are dusky. Chronic stasis dermatitis noted bilateral lower extremities. She is tender to palpation below the knees bilaterally, more so on the left. Dry gangrenous changes of the distal aspect of several toes on both feet. Neuro-cranial nerves II through XII intact, motor and sensory function within normal limits, strength symmetrical with generalized weakness, no focal deficits Psych-depressed affect Results & Data Results & Data Vital Signs (Past 12 Hours) Vital Signs Temp Pulse Pulse Pulse Pulse Resp BP 02/04/23 13:35 36.3 C L 75 02/04/23 13:00 72 83/46 L 02/04/23 12:45 75 83/37 L 02/04/23 12:40 58 L 61/37 L 02/04/23 12:30 75 92/35 L 02/04/23 12:00 75 101/33 L 02/04/23 11:30 75 107/38 L 02/04/23 11:00 78 101/34 L 02/04/23 10:30 89 115/49 L 02/04/23 10:00 87 85/39 L 02/04/23 09:30 90 104/59 L 02/04/23 09:18 93 H 101/57 L 02/04/23 09:12 36.4 C L 94 H 02/04/23 08:45 02/04/23 08:06 37.0 C 94 H 18 02/04/23 07:27 97 H BP BP Pulse Ox O2 Del Method 02/04/23 13:35 97/41 L 02/04/23 13:00 02/04/23 12:45 02/04/23 12:40 02/04/23 12:30 02/04/23 12:00 02/04/23 11:30 02/04/23 11:00 02/04/23 10:30 02/04/23 10:00 02/04/23 09:30 02/04/23 09:18 02/04/23 09:12 02/04/23 08:45 Room Air 02/04/23 08:06 98/63 L 93 Room Air 02/04/23 07:27 Laboratory Results 02/04/23 05:45 02/04/23 05:45 PG Care Time/CCT Total # of Minutes Spent Total Time Spent with Patient: Total time spent is greater than 50% in coordination of care (as documented) at patient's floor/unit and/or counseling patient: Coding Level of Care Code 77226 SUB INP/OBS CARE 3/50MIN Diagnoses Hypotension of hemodialysis I95.3 ESRD (end stage renal disease) N18.6 Leg swelling M79.89 Acute alteration in mental status R41.82 CAD (coronary artery disease) I25.10 GERD (gastroesophageal reflux disease) K21.9 History of CVA (cerebrovascular accident) Z86.73 Diabetes type 2, uncontrolled E11.65
--- NOTE | 2023-02-04 16:03 | Ultrasound Report ---
BILATERAL LOWER EXTREMITY ARTERIAL DOPPLER ULTRASOUND CLINICAL HISTORY: Ischemia, pain. COMPARISON STUDY: No previous studies for comparison. TECHNIQUE: Ankle to brachial indices could not be obtained as patient was unable to tolerate ankle cu ffs. Accurate toe to brachial indices can also not be obtained. Grayscale and color and duplex Dopple r sonography of the arterial systems of both lower extremities was performed. FINDINGS: This exam was compromised due to suboptimal penetration related to lower extremity edema wh ich affected visualization of the calf vessels. Moderate to extensive atherosclerotic plaque was note d within the lower extremities. Biphasic flow was noted within the right common femoral artery. There is monophasic flow within the right superficial femoral, popliteal, proximal peroneal, anterior tibi al and dorsalis pedis vessels. No flow was identified within the right posterior tibial artery. No el evated velocities within the right lower extremity were identified. Monophasic flow was noted within left common femoral artery. Elevated peak systolic velocity of 296 cm/s within the proximal left supe rficial femoral artery was noted. There was monophasic flow within the remainder of the left superfic ial femoral artery, the popliteal artery, posterior tibial artery, dorsalis pedis and proximal anteri or tibial artery. No flow was identified within the mid left anterior tibial artery with suspected di stal reconstitution. Left peroneal artery was not well visualized. IMPRESSION: 1. Unable to obtain ankle to brachial indices, as described above. 2. Moderate to extensive atherosclerotic plaque within the lower extremities. Findings suggestive of a hemodynamically significant stenosis within the proximal left superficial femoral artery. No additi onal elevated velocities. 3. Monophasic flow within the calf vessels. Probable occlusion of the right posterior tibial artery. Suspected occlusion of the mid left anterior tibial artery with distal reconstitution. ACT 112: Negative or not required by law. Electronically signed by: Jonathan An M.D. 02/04/2023 4:02 PM
[2023-02-04] MEDS: LANTUS PER UNIT CHARGE SQ SCH (18:13)
[2023-02-04] MEDS: CLOPIDOGREL BISULFATE 75 MG TAB PO SCH (21:09)
--- NOTE | 2023-02-04 22:17 | Orthopedic Consultation ---
Date of Consultation February 04, 2023 Assessment & Plan (1) Open wound of toe of left foot: Patient seen and evaluated at bedside in room N286-2. Patient prefers legs to dangle off bed due to rest pain. Reviewed LE Duplex ultrasound. Significant PVD noted. Would appreciate vascular input. Wounds on toes appear stable. No intervention planned. Will continue to follow while in house. Thank you for allowing me to participate in the care of this Patient. (2) Demand ischemia: (3) Diabetes type 2, uncontrolled: History of Present Illness Attending Physician: Ky Bolden MD History of Present Illness Patient is a 67 year old female seen at bedside in room 286-2 for bilateral ischemic toes. Patient has a past medical history significant for GERD, ESRD on hemodialysis (MWF), uncontrolled DM2 on insulin therapy, CAD, history of CVA, and superficial thrombosis of LLE on Eliquis. History history is obtained through Patient and prior documentation. Patient was treated in [facility] ED after becoming hypotensive at the dialysis center with systolic BP in the 60's and AMS. Patient is resting supine on bed with feet hanging off bed and onto floor. She notes her feet and legs become painful if elevated. Patient states her right great toenail was removed and that wound care is following her chronic wounds on the BL great toes. Allergies Allergy/AdvReac Type Severity Reaction Status Date / Time dulaglutide [From [facility]] Allergy Intermediate Hives Verified 12/09/22 13:57 atorvastatin AdvReac Intermediate Statin Verified 12/09/22 13:57 Cardiomyopathy erythromycin base AdvReac Intermediate Vomiting Verified 12/09/22 13:57 Home Medications Medication Instructions Recorded Confirmed Type blood-glucose sensor (Dexcom G6 #3 ea 06/24/21 10/22/22 Rx Sensor device) blood-glucose transmitter (Dexcom #1 ea 06/24/21 10/22/22 Rx G6 Transmitter device) blood-glucose meter (OneTouch #1 ea 11/25/21 10/22/22 Rx Ultra2 Meter kit) lancets (OneTouch UltraSoft #200 ea 11/25/21 10/22/22 Rx Lancets) BD Ultra-Fine Gwen Pen Needle 32 #500 ea 08/10/22 10/22/22 Rx gauge x 5/32" (pen needle, diabetic) blood sugar diagnostic (OneTouch #200 ea 08/10/22 10/22/22 Rx Ultra Test strips) cholecalciferol (vitamin D3) 125 125 mcg PO DAILY #45 caps 09/07/22 02/03/23 Rx mcg (5,000 unit) capsule pantoprazole 40 mg tablet,delayed 40 mg PO QAM 09/16/22 02/03/23 History release sevelamer carbonate 800 mg tablet 800 mg PO TID #270 tabs 10/20/22 02/03/23 Rx insulin aspart U-100 100 unit/mL 5 unit (0.05 mL) SC TIDM #15 mL 10/22/22 02/03/23 Rx (3 mL) subcutaneous pen (Novolog FlexPen U-100 Insulin aspart) insulin glargine 100 unit/mL 25 unit (0.25 mL) subcut HS #10 mL 10/22/22 02/03/23 Rx subcutaneous solution (Lantus U-100 Insulin) insulin aspart U-100 100 unit/mL See Rx Instructions .Route 10/24/22 02/03/23 History (3 mL) subcutaneous pen (Novolog .COMPLEX PRN Other FlexPen U-100 Insulin aspart) loperamide 2 mg capsule 0 mg PO Q4H PRN loose stool 10/24/22 02/03/23 History vitamin B complex and vitamin C 0 cap PO QAM 10/24/22 02/03/23 History no.20-folic acid 1 mg capsule (Renal Caps) bumetanide 2 mg tablet 1 mg PO BID 12/02/22 02/03/23 History cinacalcet 30 mg tablet 30 mg PO 3XWK 12/02/22 02/03/23 History metoprolol succinate 25 mg 25 mg PO QAM #30 tabs 12/02/22 02/03/23 Rx tablet,extended release 24 hr patiromer calcium sorbitex 8.4 8.4 g PO DAILY #30 ea 12/02/22 02/03/23 Rx gram oral powder packet (Veltassa) clopidogrel 75 mg tablet (Plavix) 75 mg PO HS 02/03/23 02/03/23 History gabapentin 100 mg capsule 100 mg PO BID 02/03/23 02/03/23 History midodrine 5 mg tablet 5 mg PO 3XWK 02/03/23 02/03/23 History midodrine 5 mg tablet 5 mg PO 3XWK PRN Hypotension 02/03/23 02/03/23 History trazodone 50 mg tablet 25 mg PO HS 02/03/23 02/03/23 History Patient History Medical History Traumatic ulcer of left lower leg Osteopenia ESRD (end stage renal disease) Nocturnal hypoxemia Hx of Lyme disease GERD (gastroesophageal reflux disease) Vitamin D deficiency Diabetic nephropathy associated with type 2 diabetes mellitus Subclinical hypothyroidism TSH 5.180 in 01/2021 Dyslipidemia Diabetes type 2, uncontrolled Background diabetic retinopathy associated with type 2 diabetes mellitus Primary hyperparathyroidism CAD (coronary artery disease) Non obstructive (August 2009) per cardio records Morbid obesity Vocal cord paralysis syndrome Anemia History of CVA (cerebrovascular accident) (2016) Mitral regurgitation Hypertension Surgical History [place] teeth removed History of cataract surgery RT/LEFT History of vascular access device 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 (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) Status post laparoscopic cholecystectomy (10/07/19) Difficult airway for intubation PT STATES HAS HAD VOCAL CORD PARAYSIS IN PAST Fiberoptic intubation used with 10/2019 lap odalis Hx of colonoscopy Hx of tubal ligation Hx of tonsillectomy Hx of eye surgery EYE MUSCLE REPAIR S/P cardiac catheterization OVER 10 YEARS AGO/NO STENTS Family History Father Family history of diabetes mellitus Aunt Family history of diabetes mellitus Uncle Family history of diabetes mellitus Brother Family history of diabetes mellitus Brother Family history of diabetes mellitus Grandmother (Maternal) Family hx of colon cancer Other Alzheimer disease Coronary heart disease No family history of adverse response to anesthesia Social History Smoking Status: Unknown if ever smoked Tobacco Type: Cigarettes Second Hand Exposure: No; Do You Dip or Chew Tobacco: No; Hx Alcohol Use: No Hx Substance Use: No Preferred Language: Irish Communication Ability: Effective Visual Impairment: Limited Hearing Ability: Normal Commodities Clerk Required: No Beliefs That Will Affect Care: None marital status: Current Living Situation: Skilled Nursing Current Living Situation Comment: [place] [facility] Feels Safe at Home: Yes Diet: low salt and vegetarian caffeine: Yes Seatbelt Use: always Assistive Devices: Walker Review of Systems Review of Systems: All systems reviewed & are unremarkable except as noted in HPI & below Physical Exam Constitutional: cooperative and comfortable Respiratory: normal respiratory effort Cardiovascular: Rate/Rhythm: regular rate and regular rhythm Absent pedal pulses bilateral. Proximal to distal cooling of bilateral lower extremites Musculoskeletal: Extremities: extremities normal to inspection No gross deformities Skin: + wound (Bilateral absent hallux nail pl ates with eschar) and + erythema (Left leg, foot and ankle) Dependent rubor bilateral feet. Chronic stasis dermatitis noted bilateral lower extremities. Neurologic: moves all extremities (Absent epicritic sensation) Psychiatric: Orientation: alert and oriented x 3 Lymphatic: Results & Data Vital Signs (Past 12 Hours) Vital Signs Temp Pulse Pulse Pulse Resp BP BP 02/04/23 20:40 37.0 C 81 20 97/62 L 02/04/23 19:35 02/04/23 18:01 72 02/04/23 17:02 36.6 C 79 20 02/04/23 17:02 02/04/23 13:35 36.3 C L 75 97/41 L 02/04/23 13:00 72 83/46 L 02/04/23 12:45 75 83/37 L 02/04/23 12:40 58 L 61/37 L 02/04/23 12:30 75 92/35 L 02/04/23 12:00 75 101/33 L 02/04/23 11:30 75 107/38 L 02/04/23 11:00 78 101/34 L 02/04/23 10:30 89 115/49 L BP Pulse Ox Pulse Ox O2 Del Method O2 Del Method 02/04/23 20:40 95 Room Air 02/04/23 19:35 Room Air 02/04/23 18:01 02/04/23 17:02 91/54 L 96 Room Air 02/04/23 17:02 96 Room Air 02/04/23 13:35 02/04/23 13:00 02/04/23 12:45 02/04/23 12:40 02/04/23 12:30 02/04/23 12:00 02/04/23 11:30 02/04/23 11:00 02/04/23 10:30 Diagnostic Findings [facility] [place] [phone] Ultrasound Report Patient: NIASHALOM Admit Date: 02/03/23 MR#: [id number] Address1: [address] [facility] Acct ID:[id number] Address2: Date: 1955 [facility] [place] [address] Age: 67 Location: 2N Sex: F Room/Bed: N286 Att Phy: Ky Bolden MD Diagnosis: HYPOTENSION, AMS DURING DIALYSIS Matilda Phy: Rashel Patterson DO Service Date: 02/04/23 Fam Phy: Interpreting Phy: Jonathan An MDAdmit Phy: Chris Teran MD Ordering Phy: Ky Bolden MD cc: ~ BILATERAL LOWER EXTREMITY ARTERIAL DOPPLER ULTRASOUND CLINICAL HISTORY: Ischemia, pain. COMPARISON STUDY: No previous studies for comparison. TECHNIQUE: Ankle to brachial indices could not be obtained as patient was unable to tolerate ankle cuffs. Accurate toe to brachial indices can also not be obtai ravin. Grayscale and color and duplex Doppler sonography of the arterial systems of both lower extremities was performed. FINDINGS: This exam was compromised due to suboptimal penetration related to lo wer extremity edema which affected visualization of the calf vessels. Moderate to extensive atherosclerotic plaque was noted within the lower extremities. Biphasic flow was noted within the right common femoral artery. There is monophasic flow within the right superficial femoral, popliteal, proximal peroneal, anterior tibial and dorsalis pedis vessels. No flow was identified within the right posterior tibial artery. No elevated velocities within the right lower extremity were identified. Monophasic flow was noted within left common femoral artery. Elevated peak systolic velocity of 296 cm/s within the proximal left superficial femoral artery was noted. There was monophasic flow within the remainder of the left superficial femoral artery, the popliteal artery, posterior tibial artery, dorsalis pedis and proximal anterior tibial artery. No flow was identified within the mid left anterior tibial artery with suspected distal reconstitution. Left peroneal artery was not well visualized. IMPRESSION: 1. Unable to obtain ankle to brachial indices, as described above. 2. Moderate to extensive atherosclerotic plaque within the lower extremities. Findings suggestive of a hemodynamically significant stenosis within the proximal left superficial femoral artery. No additional elevated velocities. 3. Monophasic flow within the calf vessels. Probable occlusion of the right posterior tibial artery. Suspected occlusion of the mid left anterior tibial artery with distal reconstitution. ACT 112: Negative or not required by law. Electronically signed by: Jonathan An M.D. 02/04/2023 4:02 PM Dictated: 02/04/231553 Transcribed: 02/04/231553 (3) Diabetes type 2, uncontrolled Glycemic state: with hyperglycemia Qualified Code(s): E11.65 - Type 2 diabetes mellitus with hyperglycemia
[2023-02-05 07:17] LABS: BUN Creatinine Ratio 8.8 (10-20); Calcium 10.2 mg/dl (8.6-10.3); Creatinine Clr Calc Pharmacy 15.1 ml/min; Est GFR (African American) 12.3 ml/min; Est GFR (Non-African American) 10.6 ml/min; Potassium 4.4 mmol/L (3.5-5.1)
[2023-02-05] MEDS: GABAPENTIN 100 MG CAP PO SCH ×2 (09:03→20:44)
[2023-02-05] MEDS: HEPARIN SOD 5,000 UNIT/0.5 ML VIAL SQ SCH ×2 (09:03→20:43)
[2023-02-05] MEDS: MIDODRINE HCL 10 MG TAB PO PRN (09:03)
[2023-02-05] MEDS: PANTOprazole 40 MG TAB PO SCH (09:03)
[2023-02-05] MEDS: SEVELAMER HCL 800 MG TABLET PO SCH ×3 (09:03→18:27)
[2023-02-05] MEDS: NEPHROCAPS PO SCH (09:03)
[2023-02-05] MEDS: INSULIN ASPART PER UNIT CHARGE SC SCH ×4 (09:05→20:43)
--- NOTE | 2023-02-05 09:38 | Nephrology Progress Note ---
Date of Service February 05, 2023 Assessment & Plan (1) ESRD (end stage renal disease): Plan: Orders for HD entered into the EHR and reviewed with handle and vent machine operator. Catheter functioning well. Tolerated HD well yesterday. Midodrine given pretreatment. Metoprolol held. Intradialytic hypotension improved. Volume status improving. Electrolytes controlled. Outpatient Rx: MWF Revaclear 300 x 4 hours Qb 400 via [facility]. Delfina has refused AVF use. Medications are appropriately dosed for kidney function. Renal diet. From a nephrology standpoint, discharge back to [place] [facility] would be appropriate if she tolerates dialysis well. (2) Hypotension of hemodialysis: Plan: Midodrine pretreatment. Metoprolol held. (3) Cardiomyopathy: Plan: Unfortunately high risk for cardiac complications. Goals of care updated continually. Importance of dietary adherence to low potassium and low sodium stressed. Importance of daily fluid restriction also stressed. (4) Failure to thrive in adult: Admission and Anticipated Discharge Date Admission Date: February 03, 2023 Subjective No acute events overnight. Delfina was resting comfortably in bed yesterday. Tolerated HD well yesterday. No complications with treatment. Lower extremity pain throughout dialysis which is improving but waxing and waning. Ortho consultation reviewed. Arterial studies demonstrating notable PAD. Vascular surgery was in the room with Delfina this AM. Net UF with HD yesterday 2.7 L. Review of Systems Review of Systems: All systems reviewed & are unremarkable except as noted in HPI & below Physical Exam Constitutional: + frail appearing; no acute distress Eyes: + anicteric sclerae; no corneal abnormal ity ENMT: Mouth: no oral mucosal abnormality and oral mucous membranes not dry Neck: normal visual inspection and trachea midline Respiratory: normal respiratory effort Auscultation: lungs clear to auscultation bilaterally Cardiovascular: Rate/Rhythm: regular rate Heart Sounds: normal S1, normal S2 and + murmur Extremities: + edema and + AV fistula Musculoskeletal: Extremities: no cyanosis and no clubbing Skin: normal turgor, + dry skin and + erythema; no jaundice Neurologic: Motor/Sensory: no tremor and no asterixis Psychiatric: Orientation: alert and oriented x 3 Results & Data Vital Signs (Past 12 Hours) Vital Signs Temp Pulse Pulse Pulse Resp BP BP 02/05/23 07:46 36.9 C 82 18 102/65 02/05/23 07:11 76 02/05/23 03:06 36.7 C 92 H 18 101/60 02/04/23 23:00 36.8 C 56 L 20 95/51 L 02/04/23 21:58 75 Pulse Ox O2 Del Method 02/05/23 07:46 94 Room Air 02/05/23 07:11 02/05/23 03:06 90 Room Air 02/04/23 23:00 94 Room Air 02/04/23 21:58 Laboratory Results Laboratory Results - last 24 hr 02/04/23 02/04/23 02/04/23 05:45 16:28 17:36 Sodium Potassium Chloride Carbon Dioxide Anion Gap BUN Creatinine Est Cr Clr Drug Dosing Est GFR ( Amer) Est GFR (Non-Af Amer) BUN/Creatinine Ratio Glucose POC Glucose 100 H 98 Calcium Total Creatine Kinase 22 L 02/04/23 02/05/23 02/05/23 20:16 05:53 08:32 Sodium 138 Potassium 4.4 Chloride 101 Carbon Dioxide 24 Anion Gap 13 H BUN 36 H D Creatinine 4.09 H D Est Cr Clr Drug Dosing 15.1 Est GFR ( Amer) 12.3 Est GFR (Non-Af Amer) 10.6 BUN/Creatinine Ratio 8.8 L Glucose 130 H POC Glucose 99 118 H Calcium 10.2 Total Creatine Kinase PG Care Time/CCT Total # of Minutes Spent Total Time Spent with Patient: Total time spent is greater than 50% in coordination of care (as documented) at patient's floor/unit and/or counseling patient: Coding Level of Care Code 03870 SUB INP/OBS CARE 3/50MIN Diagnoses ESRD (end stage renal disease) N18.6 Hypotension of hemodialysis I95.3 Cardiomyopathy I42.9 Failure to thrive in adult R62.7
[2023-02-05] MEDS: MoRPHine SULFATE 2 MG/ML CARP IV PRN ×4 (09:42→17:23)
--- NOTE | 2023-02-05 10:03 | Consultation ---
Date of Consultation February 05, 2023 Assessment & Plan (1) Peripheral arterial disease: Pt with moderate diffuse PAD and possible SFA stenoses on US. She has BLE great toe wounds, but unsure how long they have been present. She does have a significantly reduced EF, which will affect her distal perfusion, as well as multiple significant comorbidities. After discussion with Dr Luke, recommends pt undergo angiography with possible intervention in OR on WEDNESDAY. Pt is agreeable to this. History of Present Illness Reason for Consultation: PAD, ulcers Attending Physician: Ky Bolden MD History of Present Illness 67 yo f with hx of DMII, ESRD on HD via IJ permcath, CHF, cardiomyopathy with EF of 25-30%, ME, CAD, chronic venous stasis, GERD, lyms disesae, anemia, hypothyroidism, osteopenia, mitral regurgitation, CVA, dyslipidemia, neuropathy, admitted with severe hypotension after her HD treatment 2 days ago, seen in consultation today for PAD noted on US and BLE toe wounds. Pt known to Dr Luke's vascular service for RUE brachiocephalic AVF creation over a year ago. Pt states her AVF was never used "because it doesn't work." She continues to undergo HD through IJ permcath. Pt states she was unaware of any toe wounds. She states she was "unconscious for days," here in the hospital, and the toe wounds were present when she awoke, but no one will take responsibility for causing them. She is oriented x2, but seems fairly confused otherwise. She states she has never seen the wound clinic( although there are notes from as late as Spring 2022). Very difficult to obtain any hx. Unsure whether she ambulates. Admits chronic edema of BLE. Denies claudication, but states she has severe chronic knee pain and back pain that feels better when she sits with her head at the foot of the bed. Denies MEZA, fever, chest pain, SOB, abd pain, N/V, foot or toe pain. BLE arterial US demonstrates moderate diffuse disease, with possible SFA stenosis. Allergies Allergy/AdvReac Type Severity Reaction Status Date / Time dulaglutide [From [facility]] Allergy Intermediate Hives Verified 12/09/22 13:57 atorvastatin AdvReac Intermediate Statin Verified 12/09/22 13:57 Cardiomyopathy erythromycin base AdvReac Intermediate Vomiting Verified 12/09/22 13:57 Home Medications Medication Instructions Recorded Confirmed Type blood-glucose sensor (Dexcom G6 #3 ea 06/24/21 10/22/22 Rx Sensor device) blood-glucose transmitter (Dexcom #1 ea 06/24/21 10/22/22 Rx G6 Transmitter device) blood-glucose meter (OneTouch #1 ea 11/25/21 10/22/22 Rx Ultra2 Meter kit) lancets (OneTouch UltraSoft #200 ea 11/25/21 10/22/22 Rx Lancets) BD Ultra-Fine Gwen Pen Needle 32 #500 ea 08/10/22 10/22/22 Rx gauge x 5/32" (pen needle, diabetic) blood sugar diagnostic (OneTouch #200 ea 08/10/22 10/22/22 Rx Ultra Test strips) cholecalciferol (vitamin D3) 125 125 mcg PO DAILY #45 caps 09/07/22 02/03/23 Rx mcg (5,000 unit) capsule pantoprazole 40 mg tablet,delayed 40 mg PO QAM 09/16/22 02/03/23 History release sevelamer carbonate 800 mg tablet 800 mg PO TID #270 tabs 10/20/22 02/03/23 Rx insulin aspart U-100 100 unit/mL 5 unit (0.05 mL) SC TIDM #15 mL 10/22/22 02/03/23 Rx (3 mL) subcutaneous pen (Novolog FlexPen U-100 Insulin aspart) insulin glargine 100 unit/mL 25 unit (0.25 mL) subcut HS #10 mL 10/22/2202/03 Rx subcutaneous solution (Lantus U-100 Insulin) insulin aspart U-100 100 unit/mL See Rx Instructions .Route 10/24/22 02/03/23 History (3 mL) subcutaneous pen (Novolog .COMPLEX PRN Other FlexPen U-100 Insulin aspart) loperamide 2 mg capsule 0 mg PO Q4H PRN loose stool 10/24/22 02/03/23 History vitamin B complex and vitamin C 0 cap PO QAM 10/24/22 02/03/23 History no.20-folic acid 1 mg capsule (Renal Caps) bumetanide 2 mg tablet 1 mg PO BID 12/02/22 02/03/23 History cinacalcet 30 mg tablet 30 mg PO 3XWK 12/02/22 02/03/23 History metoprolol succinate 25 mg 25 mg PO QAM #30 tabs 12/02/22 02/03/23 Rx tablet,extended release 24 hr patiromer calcium sorbitex 8.4 8.4 g PO DAILY #30 ea 12/02/22 02/03/23 Rx gram oral powder packet (Veltassa) clopidogrel 75 mg tablet (Plavix) 75 mg PO HS 02/03/23 02/03/23 History gabapentin 100 mg capsule 100 mg PO BID 02/03/23 02/03/23 History midodrine 5 mg tablet 5 mg PO 3XWK 02/03/23 02/03/23 History midodrine 5 mg tablet 5 mg PO 3XWK PRN Hypotension 02/03/23 02/03/23 History trazodone 50 mg tablet 25 mg PO HS 02/03/23 02/03/23 History Patient History Medical History Traumatic ulcer of left lower leg Osteopenia ESRD (end stage renal disease) Nocturnal hypoxemia Hx of Lyme disease GERD (gastroesophageal reflux disease) Vitamin D deficiency Diabetic nephropathy associated with type 2 diabetes mellitus Subclinical hypothyroidism TSH 5.180 in 01/2021 Dyslipidemia Diabetes type 2, uncontrolled Background diabetic retinopathy associated with type 2 diabetes mellitus Primary hyperparathyroidism CAD (coronary artery disease) Non obstructive (August 2009) per cardio records Morbid obesity Vocal cord paralysis syndrome Anemia History of CVA (cerebrovascular accident) (2016) Mitral regurgitation Hypertension Surgical History [place] teeth removed History of cataract surgery RT/LEFT History of vascular access device 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 (USING FOR DIALYSIS) Status post laparoscopic cholecystectomy (10/07/19) Difficult airway for intubation PT STATES HAS HAD VOCAL CORD PARAYSIS IN PAST Fiberoptic intubation used with 10/2019 lap odalis Hx of colonoscopy Hx of tubal ligation Hx of tonsillectomy Hx of eye surgery EYE MUSCLE REPAIR S/P cardiac catheterization OVER 10 YEARS AGO/NO STENTS Family History Father Family history of diabetes mellitus Aunt Family history of diabetes mellitus Uncle Family history of diabetes mellitus Brother Family history of diabetes mellitus Brother Family history of diabetes mellitus Grandmother (Maternal) Family hx of colon cancer Other Alzheimer disease Coronary heart disease No family history of adverse response to anesthesia Social History Smoking Status: Unknown if ever smoked Tobacco Type: Cigarettes Second Hand Exposure: No; Do You Dip or Chew Tobacco: No; Hx Alcohol Use: No Hx Substance Use: No Preferred Language: Peruvian Communication Ability: Effective Visual Impairment: Limited Hearing Ability: Normal Director Food Safety Required: No Beliefs That Will Affect Care: None marital status: Current Living Situation: [facility] Current Living Situation Comment: [facility] Feels Safe at Home: Yes Diet: low salt and vegetarian caffeine: Yes Seatbelt Use: always Assistive Devices: Walker Review of Systems Review of Systems: All systems reviewed & are unremarkable except as noted in HPI & below (difficult to obtain d/t confusion) Physical Exam Constitutional: WD/WN, vitals as above + obese, + frail appearing and cooperative; not in distress Neck: trachea midline Respiratory: normal respiratory effort, lungs clear to auscultation Auscultation: + diminished lung sounds Cardiovascular: Rate/Rhythm: regular rate and regular rhythm Vessels: posterior tibial pulses present (dopplerable), dorsalis pedis pulses present (dopplerable), brachial pulses present and radial pulses present; + abnormal peripheral pulses Extremities: + edema (+4 pitting edema BLE, with skin changes/thickening), + vascular access device (ij permcath) and + AV fistula (RUE + thrill throughout); + abnormal capillary refill Gastrointestinal (Abdomen): Inspection/Auscultation: abdomen normal to inspection and normal bowel sounds Percussion/Palpation: abdomen soft; abdomen nontender Musculoskeletal: no cyanosis or clubbing, extremities motor strength 5/5 Skin: + eschar (R great toenail bed, L great t oe) Neurologic: moves all extremities, awake and + confused; no focal motor deficits Psychiatric: Orientation: alert, oriented to person and oriented to place; + not oriented to time Eye Contact: + fair eye contact Affect: + flat affect Results & Data Vital Signs (Past 12 Hours) Vital Signs Temp Pulse Pulse Pulse Resp BP BP 02/05/23 07:46 36.9 C 82 18 102/65 02/05/23 07:11 76 02/05/23 03:06 36.7 C 92 H 18 101/60 02/04/23 23:00 36.8 C 56 L 20 95/51 L 02/04/23 21:58 75 Pulse Ox O2 Del Method 02/05/23 07:46 94 Room Air 02/05/23 07:11 02/05/23 03:06 90 Room Air 02/04/23 23:00 94 Room Air 02/04/23 21:58
--- NOTE | 2023-02-05 14:46 | Hospitalist Progress Note ---
Date of Service February 05, 2023 Assessment & Plan (1) Hypotension of hemodialysis: Plan: Ruled out occult infection. Midodrine ordered. Appreciate nephrology consultation and hemodialysis orders. Blood cultures are negative to date (2) ESRD (end stage renal disease): Plan: Appreciate nephrology consultation and recommendations. MWF HD, follows with Dr. Garcia. Renal diet. Serial labs (3) Leg swelling: Plan: Venous Dopplers negative for DVT bilaterally. CK is normal at 22. Arterial Doppler evaluation bilateral lower extremities noted. There is evidence of arterial insufficiency. Vascular consultation appreciated. She appears to have ischemic left foot. Arteriography will be done on Wednesday. (4) Acute alteration in mental status: Plan: Acute metabolic encephalopathy present on admission. Now resolved. Supportive care. (5) CAD (coronary artery disease): Plan: Stable. Continue current medical management (6) GERD (gastroesophageal reflux disease): Plan: Stable. Continue PPI therapy (7) History of CVA (cerebrovascular accident): Plan: Stable. Continue plavix (8) Diabetes type 2, uncontrolled: Plan: Diabetic diet. Basal insulin therapy. Sliding scale coverage. Plan Anticipate eventual return to [facility] Admission and Anticipated Discharge Date Admission Date: February 03, 2023 Subjective She continues to complain of left lower extremity pain. This could be ischemic. Thankfully, CK levels are normal. Arterial Doppler studies are abnormal. Vascular surgery consultation has been requested. She will undergo angiography of the legs on Wednesday. Pain control measures ordered. Podiatry consultation noted. Case discussed with nephrology. Review of Systems 2 Review of Systems: Constitutional-no fever or chills ENT-no blurred vision, no double vision, no epistaxis, no sore throat Respiratory-no cough, no wheezing, no shortness of breath Cardiac-no palpitations, no chest pain, no syncope GI-no nausea, vomiting, diarrhea, melena, hematochezia -no urinary retention, no urinary incontinence, no dysuria, no hematuria Musculoskeletal-painful bilateral lower extremities below the knees, left greater than right Skin-chronic stasis dermatitis bilateral lower extremities below the knees . Cyanosis noted left foot toes Neuro-no isolated weakness, no paresthesia Psych-no depression, no anxiety Physical Exam 2 Physical Exam: General-alert and oriented x3, no fevers, no chills HEENT-head atraumatic and normocephalic, pupils equal and reactive to light, extraocular muscles intact Neck-no lymphadenopathy or thyromegaly, trachea midline Chest-clear to auscultation percussion. No rales wheezing or rhonchi Cardiac-regular rate and rhythm, normal S1 and S2, no murmurs Abdomen-normal bowel sounds, nontender, no hepatosplenomegaly Extremities-all toes on the left foot are dusky. Chronic stasis dermatitis noted bilateral lower extremities. She is tender to palpation below the knees bilaterally, more so on the left. Dry gangrenous changes of the distal aspect of several toes on both feet. Neuro-cranial nerves II through XII intact, motor and sensory function within normal limits, strength symmetrical with generalized weakness, no focal deficits Psych-depressed affect Results & Data Results & Data Vital Signs (Past 12 Hours) Vital Signs Temp Pulse Pulse Pulse Pulse Resp BP 02/05/23 14:28 36.9 C 84 20 02/05/23 13:52 36.6 C 81 86 02/05/23 13:30 86 122/40 L 02/05/23 13:00 81 103/34 L 02/05/23 12:30 80 113/37 L 02/05/23 12:00 83 107/31 L 02/05/23 11:30 84 111/38 L 02/05/23 11:00 86 120/61 02/05/23 10:34 89 119/58 L 02/05/23 10:27 36.4 C L 90 02/05/23 07:46 36.9 C 82 18 02/05/23 07:11 76 02/05/23 03:06 36.7 C 92 H 18 BP BP Pulse Ox O2 Del Method 02/05/23 14:28 113/74 97 Room Air 02/05/23 13:52 120/42 L 02/05/23 13:30 02/05/23 13:00 02/05/23 12:30 02/05/23 12:00 02/05/23 11:30 02/05/23 11:00 02/05/23 10:34 02/05/23 10:27 02/05/23 07:46 102/65 94 Room Air 02/05/23 07:11 02/05/23 03:06 101/60 90 Room Air Laboratory Results 02/04/23 05:45 02/05/23 05:53 PG Care Time/CCT Total # of Minutes Spent Total Time Spent with Patient: Total time spent is greater than 50% in coordination of care (as documented) at patient's floor/unit and/or counseling patient: Coding Level of Care Code 69255 SUB INP/OBS CARE 3/50MIN Diagnoses Hypotension of hemodialysis I95.3 ESRD (end stage renal disease) N18.6 Leg swelling M79.89 Acute alteration in mental status R41.82 CAD (coronary artery disease) I25.10 GERD (gastroesophageal reflux disease) K21.9 History of CVA (cerebrovascular accident) Z86.73 Uncontrolled type 2 diabetes mellitus with hyperglycemia E11.65 Glycemic state: with hyperglycemia (8) Diabetes type 2, uncontrolled Glycemic state: with hyperglycemia Qualified Code(s): E11.65 - Type 2 diabetes mellitus with hyperglycemia
[2023-02-05] MEDS: CINACALCET HCL 30 MG TAB PO SCH (18:26)
[2023-02-05] MEDS: LANTUS PER UNIT CHARGE SQ SCH (18:31)
[2023-02-05] MEDS: CLOPIDOGREL BISULFATE 75 MG TAB PO SCH (20:44)
[2023-02-06 07:48] LABS: BUN Creatinine Ratio 8.6 (10-20); Calcium 10.4 mg/dl (8.6-10.3); Creatinine Clr Calc Pharmacy 15.8 ml/min; Est GFR (African American) 12.7 ml/min; Potassium 4.6 mmol/L (3.5-5.1)
[2023-02-06] MEDS: SEVELAMER HCL 800 MG TABLET PO SCH ×3 (09:12→18:04)
[2023-02-06] MEDS: NEPHROCAPS PO SCH (09:12)
[2023-02-06] MEDS: HEPARIN SOD 5,000 UNIT/0.5 ML VIAL SQ SCH ×2 (09:12→20:50)
[2023-02-06] MEDS: PANTOprazole 40 MG TAB PO SCH (09:13)
[2023-02-06] MEDS: GABAPENTIN 100 MG CAP PO SCH ×2 (09:13→20:48)
[2023-02-06] MEDS: INSULIN ASPART PER UNIT CHARGE SC SCH ×4 (09:16→20:47)
--- NOTE | 2023-02-06 09:39 | Nephrology Progress Note ---
Date of Service February 06, 2023 Assessment & Plan (1) ESRD (end stage renal disease): Plan: * Last HD 02/05/23 * Outpatient Rx: MWF Revaclear 300 x 4 hours Qb 400 via [facility]. Delfina has refused AVF use * Electrolyte balance is acceptable. No acute indication for HD today * Monitor PRP (2) Hypotension of hemodialysis: Plan: * Midodrine pretreatment. Metoprolol held. (3) Peripheral arterial disease: Plan: * 02/04/23 LE duplex: Moderate to extensive atherosclerotic plaque within the lower extremities. Findings suggestive of a hemodynamically significant stenosis within the proximal left superficial femoral artery. Monophasic flow within the calf vessels. Probable occlusion of the right posterior tibial artery. Suspected occlusion of the mid left anterior tibial artery with distal reconstitution * Scheduled for angiography on Wednesday (4) Cardiomyopathy: Plan: * 12/24/22 Echocardiogram: LVEF 25-30%, mod , mod MR, mod TR, elevated RVSP 50-60 mm Hg * Currently no angina, may benefit from Cardiology follow up (5) Failure to thrive in adult: Admission and Anticipated Discharge Date Admission Date: February 03, 2023 Subjective Mrs. Reyna was evaluated in her hospital room this morning. She was dialyzed yesterday for 2.2 L UF. She remains hypotensive w/ SBP 92 mm Hg. Mrs. Reyna reports that she slept poorly last night. She currently denies fever, flank pain. She did not participate in PT yesterday due to dialysis. Her primary concern today is persistent bilateral foot pain Review of Systems Constitutional: + weakness; no fever Eyes: no problem reported Ear, Nose, Mouth, Throat: no problem reported Respiratory: no cough and no dyspnea Cardiovascular: no chest pain Gastrointestinal: no abdominal pain, no nausea, no vomiting and no diarrhea/loose stools Musculoskeletal: + problem reported (bilateral foot pain) Physical Exam Constitutional: not in distress Eyes: PERRL, conjunctivae normal, anicteric sclerae ENMT: external ear and nose normal, oropharynx normal Neck: trachea midline, no thyromegaly R IJ TCC Respiratory: normal respiratory effort, lungs clear to auscultation Cardiovascular: Rate/Rhythm: regular rate and regular rhythm Extremities: + edema (2+ pedal edema) Both feet appear dusky Unable to palpate DP/PT pulses 2-4th toes of L foot appear cyanotic Gastrointestinal (Abdomen): normal bowel sounds, soft, nontender, no hepatosplenomegaly Results & Data Vital Signs (Past 12 Hours) Vital Signs Temp Pulse Pulse Resp BP BP Pulse Ox 02/06/23 07:46 36.5 C 84 16 122/75 97 02/06/23 06:56 82 02/06/23 03:19 36.9 C 84 18 102/63 97 02/05/23 23:06 36.5 C 84 18 91/58 L 97 02/05/23 21:59 74 O2 Del Method 02/06/23 07:46 Room Air 02/06/23 06:56 02/06/23 03:19 Room Air 02/05/23 23:06 Room Air 02/05/23 21:59 Laboratory Results Laboratory Tests 02/06/23 05:47 Sodium 137 Potassium 4.6 Chloride 100 Carbon Dioxide 22 BUN 34 H Creatinine 3.97 H Glucose 139 H Calcium 10.4 H PG Care Time/CCT Total # of Minutes Spent Total Time Spent with Patient: Total time spent is greater than 50% in coordination of care (as documented) at patient's floor/unit and/or counseling patient: Coding Level of Care Code 60572 SUB INP/OBS CARE 3/50MIN Diagnoses ESRD (end stage renal disease) N18.6 Hypotension of hemodialysis I95.3 Peripheral arterial disease I73.9 Cardiomyopathy I42.9 Failure to thrive in adult R62.7
[2023-02-06] MEDS: MoRPHine SULFATE 2 MG/ML CARP IV PRN (11:16)
--- NOTE | 2023-02-06 12:11 | Hospitalist Progress Note ---
Date of Service February 06, 2023 Assessment & Plan (1) Hypotension of hemodialysis: Plan: Ruled out occult infection. Midodrine ordered. Appreciate nephrology consultation and hemodialysis orders. Blood cultures are negative to date (2) ESRD (end stage renal disease): Plan: Appreciate nephrology consultation and recommendations. MWF HD, follows with Dr. Garcia. Renal diet. Serial labs (3) Leg swelling: Plan: Venous Dopplers negative for DVT bilaterally. CK is normal at 22. Arterial Doppler evaluation bilateral lower extremities noted. There is evidence of arterial insufficiency. Vascular consultation appreciated. She appears to have ischemic left foot. Arteriography will be done on February 08. (4) Acute alteration in mental status: Plan: Acute metabolic encephalopathy present on admission. Now resolved. Supportive care. (5) CAD (coronary artery disease): Plan: Stable. Continue current medical management (6) GERD (gastroesophageal reflux disease): Plan: Stable. Continue PPI therapy (7) History of CVA (cerebrovascular accident): Plan: Stable. Continue plavix (8) Diabetes type 2, uncontrolled: Plan: Diabetic diet. Basal insulin therapy. Sliding scale coverage. Plan Anticipate eventual return to [facility] Admission and Anticipated Discharge Date Admission Date: February 03, 2023 Subjective Alert and oriented. She is feeling better. She prefers to have her feet dangling off the bedside. Vascular surgery consultation appreciated. Angiography of the lower extremities planned on February 08. Arterial Doppler evaluation of both legs is abnormal with evidence of stenosis. Podiatry consultation and recommendations appreciated. She remains on hemodialysis on Wednesday and Wednesday Review of Systems 2 Review of Systems: Constitutional-no fever or chills ENT-no blurred vision, no double vision, no epistaxis, no sore throat Respiratory-no cough, no wheezing, no shortness of breath Cardiac-no palpitations, no chest pain, no syncope GI-no nausea, vomiting, diarrhea, melena, hematochezia -no urinary retention, no urinary incontinence, no dysuria, no hematuria Musculoskeletal-painful bilateral lower extremities below the knees, left greater than right Skin-chronic stasis dermatitis bilateral lower extremities below the knees . Cyanosis noted left foot toes Neuro-no isolated weakness, no paresthesia Psych-no depression, no anxiety Physical Exam 2 Physical Exam: General-alert and oriented x3, no fevers, no chills HEENT-head atraumatic and normocephalic, pupils equal and reactive to light, extraocular muscles intact Neck-no lymphadenopathy or thyromegaly, trachea midline Chest-clear to auscultation percussion. No rales wheezing or rhonchi Cardiac-regular rate and rhythm, normal S1 and S2, no murmurs Abdomen-normal bowel sounds, nontender, no hepatosplenomegaly Extremities-all toes on the left foot are dusky. Chronic stasis dermatitis noted bilateral lower extremities. She is tender to palpation below the knees bilaterally, more so on the left. Dry gangrenous changes of the distal aspect of several toes on both feet. Neuro-cranial nerves II through XII intact, motor and sensory function within normal limits, strength symmetrical with generalized weakness, no focal deficits Psych-depressed affect Results & Data Results & Data Vital Signs (Past 12 Hours) Vital Signs Temp Pulse Pulse Resp BP BP Pulse Ox 02/06/23 11:09 36.7 C 90 18 92/53 L 97 02/06/23 09:00 02/06/23 07:46 36.5 C 84 16 122/75 97 02/06/23 06:56 82 02/06/23 03:19 36.9 C 84 18 102/63 97 O2 Del Method 02/06/23 11:09 Room Air 02/06/23 09:00 Room Air 02/06/23 07:46 Room Air 02/06/23 06:56 02/06/23 03:19 Room Air Laboratory Results 02/04/23 05:45 02/06/23 05:47 PG Care Time/CCT Total # of Minutes Spent Total Time Spent with Patient: Total time spent is greater than 50% in coordination of care (as documented) at patient's floor/unit and/or counseling patient: Coding Level of Care Code 96721 SUB INP/OBS CARE 3/50MIN Diagnoses Hypotension of hemodialysis I95.3 ESRD (end stage renal disease) N18.6 Leg swelling M79.89 Acute alteration in mental status R41.82 CAD (coronary artery disease) I25.10 GERD (gastroesophageal reflux disease) K21.9 History of CVA (cerebrovascular accident) Z86.73 Uncontrolled type 2 diabetes mellitus with hyperglycemia E11.65 Glycemic state: with hyperglycemia (8) Diabetes type 2, uncontrolled Glycemic state: with hyperglycemia Qualified Code(s): E11.65 - Type 2 diabetes mellitus with hyperglycemia
[2023-02-06] MEDS: LANTUS PER UNIT CHARGE SQ SCH (18:05)
[2023-02-06] MEDS: CLOPIDOGREL BISULFATE 75 MG TAB PO SCH (20:49)
[2023-02-07 07:56] LABS: Calcium 10.1 mg/dl (8.6-10.3); Potassium 5.6 mmol/L (3.5-5.1)
[2023-02-07 08:10] LABS: Est GFR (African American) 7.6 ml/min; Est GFR (Non-African American) 6.6 ml/min
[2023-02-07 08:20] LABS: Hematocrit (blood only) 43.3 % (37.0-47.0); Hemoglobin 13.4 g/dl (12.0-16.0); Mean Corpuscular Hemoglobin 29.5 pg (25.0-34.0); Mean Corpuscular Hgb Conc 30.9 g/dL (32.0-36.0); Mean Corpuscular Volume 95.2 fL (80.0-100.0); Mean Platelet Volume 10.4 fL (9.4-12.4); Platelet Count 288 K/uL (130-400); RDW Standard Deviation 52.5 fL (36.4-46.3); Red Blood Count 4.55 M/uL (4.20-5.40); White Blood Count 8.73 K/ul (4.8-10.8)
[2023-02-07] MEDS: NEPHROCAPS PO SCH (08:34)
[2023-02-07] MEDS: GABAPENTIN 100 MG CAP PO SCH ×2 (08:34→21:27)
[2023-02-07] MEDS: HEPARIN SOD 5,000 UNIT/0.5 ML VIAL SQ SCH ×2 (08:34→21:27)
[2023-02-07] MEDS: PANTOprazole 40 MG TAB PO SCH (08:34)
[2023-02-07] MEDS: SEVELAMER HCL 800 MG TABLET PO SCH ×3 (08:34→17:22)
[2023-02-07] MEDS: INSULIN ASPART PER UNIT CHARGE SC SCH ×4 (09:12→22:01)
--- NOTE | 2023-02-07 09:26 | Nephrology Progress Note ---
Date of Service February 07, 2023 Assessment & Plan (1) ESRD (end stage renal disease): Plan: * Volume status is acceptable. However patient has mild hyperkalemia. Discussed management of hyperkalemia w/ patient today. She is agreeable to starting Lokelma therapy. Will provide HD in am * HD orders placed in EMR and HD RN notified for 1st shift HD 02/08/23. I also left VM for Dr. Luke indicating that patient will need 1st shift HD Wednesday * Outpatient Rx: MWF Revaclear 300 x 4 hours Qb 400 via TDC. Delfina has refused AVF use * Monitor PRP (2) Hypotension of hemodialysis: Plan: * Midodrine pretreatment. Metoprolol held. (3) Peripheral arterial disease: Plan: * 02/04/23 LE duplex: Moderate to extensive atherosclerotic plaque within the lower extremities. Findings suggestive of a hemodynamically significant stenosis within the proximal left superficial femoral artery. Monophasic flow within the calf vessels. Probable occlusion of the right posterior tibial artery. Suspected occlusion of the mid left anterior tibial artery with distal reconstitution * Scheduled for angiography on Wednesday (4) Cardiomyopathy: Plan: * 12/24/22 Echocardiogram: LVEF 25-30%, mod , mod MR, mod TR, elevated RVSP 50-60 mm Hg * Currently no angina, may benefit from Cardiology follow up (5) Failure to thrive in adult: Admission and Anticipated Discharge Date Admission Date: February 03, 2023 Subjective Mrs. Reyna was evaluated in her hospital room this morning. She currently denies fever, flank pain. Her primary concern remains persistent bilateral foot pain. Mrs. Reyna did participate in PT yesterday. She was moderate assist to stand and could only stand at rolling walker for 20 seconds. She declined a second attempt Review of Systems Constitutional: + weakness; no fever Eyes: no problem reported Ear, Nose, Mouth, Throat: no problem reported Respiratory: no cough and no dyspnea Cardiovascular: no chest pain Gastrointestinal: no abdominal pain, no nausea, no vomiting and no diarrhea/loose stools Musculoskeletal: + problem reported (bilateral foot pain) Physical Exam Constitutional: not in distress Eyes: PERRL, conjunctivae normal, anicteric sclerae ENMT: external ear and nose normal, oropharynx normal Neck: trachea midline, no thyromegaly Respiratory: normal respiratory effort, lungs clear to auscultation Cardiovascular: Rate/Rhythm: regular rate and regular rhythm Extremities: + edema (2+ pedal edema) Gastrointestinal (Abdomen): normal bowel sounds, soft, nontender, no hepatosplenomegaly Results & Data Vital Signs (Past 12 Hours) Vital Signs Temp Pulse Resp BP BP Pulse Ox O2 Del Method 02/07/23 07:44 36.8 C 82 18 98/64 L 92 Room Air 02/07/23 03:09 36.4 C L 82 18 90/56 L 92 Room Air 02/06/23 23:09 80/52 L 02/06/23 22:59 36.9 C 91 H 18 79/46 L 95 Room Air Laboratory Results Laboratory Tests 02/07/23 06:49 WBC 8.73 Hgb 13.4 Hct 43.3 Plt Count 288 Sodium 134 L Potassium 5.6 H D Chloride 96 L Carbon Dioxide 22 BUN 61 H D Creatinine 6.08 H* D Glucose 194 H PG Care Time/CCT Total # of Minutes Spent Total Time Spent with Patient: Total time spent is greater than 50% in coordination of care (as documented) at patient's floor/unit and/or counseling patient: Coding Level of Care Code 64094 SUB INP/OBS CARE 3/50MIN Diagnoses ESRD (end stage renal disease) N18.6 Hypotension of hemodialysis I95.3 Peripheral arterial disease I73.9 Cardiomyopathy I42.9 Failure to thrive in adult R62.7
[2023-02-07] MEDS: SODIUM ZIRCONIUM CYCLOSILICATE 10 GM PACKET PO SCH ×2 (11:14→21:28)
--- NOTE | 2023-02-07 12:34 | Hospitalist Progress Note ---
Date of Service February 07, 2023 Assessment & Plan (1) Hypotension of hemodialysis: Plan: Ruled out occult infection. Midodrine has been ordered predialysis sessions. Appreciate nephrology consultation and hemodialysis orders. Blood cultures are negative to date (2) ESRD (end stage renal disease): Plan: Appreciate nephrology consultation and recommendations. MWF HD, follows with Dr. Garcia. Renal diet. Serial labs (3) Leg swelling: Plan: Venous Dopplers negative for DVT bilaterally. CK is normal at 22. Arterial Doppler evaluation bilateral lower extremities noted. There is evidence of arterial insufficiency. Vascular consultation appreciated. She appears to have ischemic left foot. Arteriography will be done on February 08. (4) Acute alteration in mental status: Plan: Acute metabolic encephalopathy present on admission. Now resolved. Supportive care. (5) CAD (coronary artery disease): Plan: Stable. Continue current medical management (6) GERD (gastroesophageal reflux disease): Plan: Stable. Continue PPI therapy (7) History of CVA (cerebrovascular accident): Plan: Stable. Continue plavix (8) Diabetes type 2, uncontrolled: Plan: Diabetic diet. Basal insulin therapy. Sliding scale coverage. Plan Anticipate eventual return to [facility] Admission and Anticipated Discharge Date Admission Date: February 03, 2023 Subjective The patient is stable overall and sleeping at the time of my examination. Her is at the bedside and we had a lengthy conversation. He understands that she will be undergoing lower extremity arteriography tomorrow, February 08. Glucose 194 and acceptable. Blood pressure is also acceptable at 98/64. Review of Systems 2 Review of Systems: The patient is currently asleep Physical Exam 2 Physical Exam: General-sleep. No documented fevers HEENT-head atraumatic and normocephalic Neck-no lymphadenopathy or thyromegaly, trachea midline Chest-clear to auscultation percussion. No rales, wheezing or rhonchi Cardiac-regular rate and rhythm, normal S1 and S2 Abdomen-normal bowel sounds, no hepatosplenomegaly Extremities-all toes on the left foot are dusky. Chronic stasis dermatitis noted bilateral lower extremities. Dry gangrenous changes of the distal aspect of several toes on both feet. Neuro-cannot assess. The patient is asleep Psych-cannot assess. The patient is asleep Results & Data Results & Data Vital Signs (Past 12 Hours) Vital Signs Temp Pulse Pulse Resp BP BP Pulse Ox 02/07/23 12:00 36.9 C 85 18 91/57 L 93 02/07/23 09:28 90 02/07/23 07:44 36.8 C 82 18 98/64 L 92 02/07/23 03:09 36.4 C L 82 18 90/56 L 92 O2 Del Method 02/07/23 12:00 Room Air 02/07/23 09:28 02/07/23 07:44 Room Air 02/07/23 03:09 Room Air Laboratory Results 02/07/23 06:49 02/07/23 06:49 PG Care Time/CCT Total # of Minutes Spent Total Time Spent with Patient: Total time spent is greater than 50% in coordination of care (as documented) at patient's floor/unit and/or counseling patient: Coding Level of Care Code 87796 SUB INP/OBS CARE 2/35MIN Diagnoses Hypotension of hemodialysis I95.3 ESRD (end stage renal disease) N18.6 Leg swelling M79.89 Acute alteration in mental status R41.82 CAD (coronary artery disease) I25.10 GERD (gastroesophageal reflux disease) K21.9 History of CVA (cerebrovascular accident) Z86.73 Uncontrolled type 2 diabetes mellitus with hyperglycemia E11.65 Glycemic state: with hyperglycemia (8) Diabetes type 2, uncontrolled Glycemic state: with hyperglycemia Qualified Code(s): E11.65 - Type 2 diabetes mellitus with hyperglycemia
[2023-02-07] MEDS ORDERED: SODIUM ZIRCONIUM CYCLOSILICATE 10 GM PACKET PO SCH (14:00)
[2023-02-07] MEDS: LANTUS PER UNIT CHARGE SQ SCH (17:57)
[2023-02-07] MEDS: CLOPIDOGREL BISULFATE 75 MG TAB PO SCH (21:27)
[2023-02-08 07:00] LABS: BUN Creatinine Ratio 10.7 (10-20); Calcium 9.5 mg/dl (8.6-10.3); Creatinine Clr Calc Pharmacy 7.8 ml/min; Est GFR (African American) 5.7 ml/min; Est GFR (Non-African American) 4.9 ml/min; Potassium 5.4 mmol/L (3.5-5.1)
[2023-02-08] MEDS ORDERED: SODIUM CHLORIDE 0.9% 1,000 ML IV PRN (07:00)
[2023-02-08] MEDS ORDERED: HEPARIN SOD (PORCINE) 1000 UNIT/ML IV ONE (07:00)
[2023-02-08] MEDS ORDERED: HEPARIN SOD (PORCINE) 1000 UNIT/ML IV SCH (07:00)
[2023-02-08 07:11] LABS: Hematocrit (blood only) 33.8 % (37.0-47.0); Hemoglobin 10.5 g/dl (12.0-16.0); Mean Corpuscular Hemoglobin 29.2 pg (25.0-34.0); Mean Corpuscular Hgb Conc 31.1 g/dL (32.0-36.0); Mean Corpuscular Volume 94.2 fL (80.0-100.0); Mean Platelet Volume 10.4 fL (9.4-12.4); Platelet Count 239 K/uL (130-400); RDW Coefficient of Variation 14.9 % (11.5-14.5); RDW Standard Deviation 51.5 fL (36.4-46.3); Red Blood Count 3.59 M/uL (4.20-5.40); White Blood Count 9.69 K/ul (4.8-10.8)
[2023-02-08] MEDS: SODIUM ZIRCONIUM CYCLOSILICATE 10 GM PACKET PO SCH ×3 (08:03→22:15)
--- NOTE | 2023-02-08 08:56 | Nephrology Progress Note ---
Date of Service February 08, 2023 Assessment & Plan (1) ESRD (end stage renal disease): Plan: * HD today. Will attempt 2 L UF using Crit-line monitor. 2K bath chosen due to hyperkalemia * Outpatient Rx: MWF Revaclear 300 x 4 hours Qb 400 via [facility]. Delfina has re fused AVF use * Monitor PRP (2) Hypotension of hemodialysis: Plan: * Midodrine pretreatment. Metoprolol held. (3) Peripheral arterial disease: Plan: * 02/04/23 LE duplex: Moderate to extensive atherosclerotic plaque within the lower extremities. Findings suggestive of a hemodynamically significant stenosis within the proximal left superficial femoral artery. Monophasic flow within the calf vessels. Probable occlusion of the right posterior tibial ar pierre. Suspected occlusion of the mid left anterior tibial artery with distal reconstitution * Scheduled for angiography on Wednesday (4) Cardiomyopathy: Plan: * 12/24/22 Echocardiogram: LVEF 25-30%, mod , mod MR, mod TR, elevated RVSP 50-60 mm Hg * Currently no angina, may benefit from Cardiology follow up (5) Failure to thrive in adult: Admission and Anticipated Discharge Date Admission Date: February 03, 2023 Subjective Mrs. Reyna was evaluated in her hospital room and while on HD this morning. She currently denies fever, flank pain. Her primary concern remains persistent bilateral foot pain. During HD Mrs. Reyna's IJ TCC had to be run reversed due to poor flow Review of Systems Constitutional: + weakness; no fever Eyes: no problem reported Ear, Nose, Mouth, Throat: no problem reported Respiratory: no cough and no dyspnea Cardiovascular: no chest pain Gastrointestinal: no abdominal pain, no nausea, no vomiting and no diarrhea/loose stools Musculoskeletal: + problem reported (bilateral foot pain) Physical Exam Constitutional: not in distress Eyes: PERRL, conjunctivae normal, anicteric sclerae ENMT: external ear and nose normal, oropharynx normal Neck: trachea midline, no thyromegaly Respiratory: normal respiratory effort, lungs clear to auscultation Cardiovascular: Rate/Rhythm: regular rate and regular rhythm Extremities: + edema (2+ pedal edema) Gastrointestinal (Abdomen): normal bowel sounds, soft, nontender, no hepatosplenomegaly Results & Data Vital Signs (Past 12 Hours) Vital Signs Temp Pulse Pulse Pulse Resp BP BP 02/08/23 08:04 36.8 C 99 H 16 117/72 02/08/23 07:43 97 H 02/08/23 04:15 36.9 C 109 H 20 94/50 L 02/08/23 01:15 102 H 02/07/23 23:12 37 C 111 H 18 94/64 L Pulse Ox O2 Del Method 02/08/23 08:04 97 Room Air 02/08/23 07:43 02/08/23 04:15 93 Room Air 02/08/23 01:15 02/07/23 23:12 94 Room Air Laboratory Results Laboratory Tests 02/08/23 05:46 WBC 9.69 Hgb 10.5 L D Hct 33.8 L Plt Count 239 Sodium 129 L Potassium 5.4 H Chloride 94 L Carbon Dioxide 19 L BUN 83 H D Creatinine 7.74 H* D Glucose 269 H Calcium 9.5 PG Care Time/CCT Total # of Minutes Spent Total Time Spent with Patient: Total time spent is greater than 50% in coordination of care (as documented) at patient's floor/unit and/or counseling patient: Coding Level of Care Code 79413 SUB INP/OBS CARE 3/50MIN Diagnoses ESRD (end stage renal disease) N18.6 Hypotension of hemodialysis I95.3 Peripheral arterial disease I73.9 Cardiomyopathy I42.9 Failure to thrive in adult R62.7
[2023-02-08] MEDS: MIDODRINE HCL 10 MG TAB PO PRN (09:54)
[2023-02-08] MEDS: SEVELAMER HCL 800 MG TABLET PO SCH ×3 (13:26→17:55)
[2023-02-08] MEDS: INSULIN ASPART PER UNIT CHARGE SC SCH ×4 (13:26→22:21)
[2023-02-08] MEDS: HEPARIN SOD 5,000 UNIT/0.5 ML VIAL SQ SCH ×2 (13:29→22:15)
[2023-02-08] MEDS: PANTOprazole 40 MG TAB PO SCH (13:30)
[2023-02-08] MEDS: GABAPENTIN 100 MG CAP PO SCH ×2 (13:30→22:15)
[2023-02-08] MEDS: NEPHROCAPS PO SCH (13:30)
[2023-02-08] MEDS: CINACALCET HCL 30 MG TAB PO SCH (17:59)
[2023-02-08] MEDS: LANTUS PER UNIT CHARGE SQ SCH (18:00)
--- NOTE | 2023-02-08 21:44 | Hospitalist Progress Note ---
Date of Service February 08, 2023 Assessment & Plan (1) Hypotension of hemodialysis: Plan: Ruled out occult infection. Midodrine has been ordered predialysis sessions. Appreciate nephrology consultation and hemodialysis orders. Blood cultures are negative to date Plan for vascular procedure on 02/09 (2) ESRD (end stage renal disease): Plan: Appreciate nephrology consultation and recommendations. MWF HD, follows with Dr. Garcia. Renal diet. Serial labs (3) Leg swelling: Plan: Venous Dopplers negative for DVT bilaterally. CK is normal at 22. Arterial Doppler evaluation bilateral lower extremities noted. There is evidence of arterial insufficiency. Vascular consultation appreciated. She appears to have ischemic left foot. Arteriography will be done on 02/09 (4) Acute alteration in mental status: Plan: Acute metabolic encephalopathy present on admission. Now resolved. Supportive care. (5) CAD (coronary artery disease): Plan: Stable. Continue current medical management (6) GERD (gastroesophageal reflux disease): Plan: Stable. Continue PPI therapy (7) History of CVA (cerebrovascular accident): Plan: Stable. Continue plavix (8) Diabetes type 2, uncontrolled: Plan: Diabetic diet. Basal insulin therapy. Sliding scale coverage. Plan Anticipate eventual return to [facility] Admission and Anticipated Discharge Date Admission Date: February 03, 2023 Subjective Patient reports no new symptoms.Just reports feeling tired from dialysis. Review of Systems Review of Systems: All systems reviewed & are unremarkable except as noted in HPI & below Physical Exam Physical Exam: General-awake. HEENT-head atraumatic and normocephalic Neck-no lymphadenopathy or thyromegaly, trachea midline Chest-clear to auscultation percussion. No rales, wheezing or rhonchi Cardiac-regular rate and rhythm, normal S1 and S2 Abdomen-normal bowel sounds, no hepatosplenomegaly Extremities-all toes on the left foot are dusky. Chronic stasis dermatitis noted bilateral lower extremities. Dry gangrenous changes of the distal aspect of several toes on both feet. Results & Data Results & Data Vital Signs (Past 12 Hours) Vital Signs Temp Pulse Pulse Pulse Resp BP BP 02/08/23 19:43 02/08/23 19:25 37.6 C H 96 H 18 79/45 L 02/08/23 16:00 92 H 02/08/23 15:32 37.2 C 92 H 18 02/08/23 13:34 36.7 C 89 16 96/60 L 02/08/23 13:09 36.4 C L 84 95/53 L 02/08/23 12:30 85 92/54 L 02/08/23 12:00 87 94/58 L 02/08/23 11:30 97 H 97/54 L 02/08/23 11:00 95 H 102/56 L 02/08/23 10:30 94 H 90/52 L 02/08/23 10:00 96 H 103/59 L BP Pulse Ox O2 Del Method 02/08/23 19:43 109/57 L 02/08/23 19:25 91 Room Air 02/08/23 16:00 02/08/23 15:32 95/58 L 93 Room Air 02/08/23 13:34 94 Room Air 02/08/23 13:09 02/08/23 12:30 02/08/23 12:00 02/08/23 11:30 02/08/23 11:00 02/08/23 10:30 02/08/23 10:00 PG Care Time/CCT Total # of Minutes Spent Total Time Spent with Patient: Total time spent is greater than 50% in coordination of care (as documented) at patient's floor/unit and/or counseling patient: Coding Level of Care Code 49147 SUB INP/OBS CARE 2/35MIN Diagnoses Hypotension of hemodialysis I95.3 ESRD (end stage renal disease) N18.6 Leg swelling M79.89 Acute alteration in mental status R41.82 CAD (coronary artery disease) I25.10 GERD (gastroesophageal reflux disease) K21.9 History of CVA (cerebrovascular accident) Z86.73 Uncontrolled type 2 diabetes mellitus with hyperglycemia E11.65 Glycemic state: with hyperglycemia (8) Diabetes type 2, uncontrolled Glycemic state: with hyperglycemia Qualified Code(s): E11.65 - Type 2 diabetes mellitus with hyperglycemia
[2023-02-08] MEDS: CLOPIDOGREL BISULFATE 75 MG TAB PO SCH (22:15)
[2023-02-09] MEDS ORDERED: ceFAZolin 2000MG 2,000 MG/15 ML SYR IV ONE (07:30)
[2023-02-09] MEDS ORDERED: HEPARIN 25000 UNIT/500 ML D5W IV ONE (07:31)
[2023-02-09] MEDS ORDERED: LIDOCAINE 1% LOCAL 20 ML VIAL ONE (07:32)
[2023-02-09] MEDS ORDERED: MIDAZOLAM HCL 1 MG/ML 2ML VIAL ONE (07:39)
[2023-02-09] MEDS ORDERED: fentaNYL citrate PF 100 MCG/2 ML VIAL ONE (07:39)
[2023-02-09] MEDS ORDERED: HEPARIN SOD (PORCINE) 1000 UNIT/ML ONE (07:40)
--- NOTE | 2023-02-09 07:44 | History & Physical Bridge Note ---
Date of Service February 09, 2023 History & Physical Bridge Note Patient for arteriography with possible intervention today. I have discussed the risks options and benefits of the procedure with the patient. The patient understands the risks options and benefits and agrees to the procedure. I have examined the patient, reviewed the History & Physical and in the interval since the performance of the History & Physical I have noted the following changes of clinical significance: no changes noted
[2023-02-09] MEDS: SODIUM CHLORIDE 0.9% 1,000 ML IV SCH (07:45)
--- NOTE | 2023-02-09 07:56 | Pre Anesthesia Assessment ---
Date of Service February 09, 2023 Pre Sedation Assessment Vital Signs Temp Pulse Pulse Pulse Resp BP BP 02/09/23 07:27 36.6 C 82 18 110/60 02/09/23 04:17 37.1 C 87 18 94/53 L 02/09/23 01:34 78 02/08/23 22:47 37.5 C 90 18 99/56 L 02/08/23 19:43 02/08/23 19:25 37.6 C H 96 H 18 79/45 L 02/08/23 16:00 92 H 02/08/23 15:32 37.2 C 92 H 18 02/08/23 13:34 36.7 C 89 16 96/60 L 02/08/23 13:09 36.4 C L 84 95/53 L 02/08/23 12:30 85 92/54 L 02/08/23 12:00 87 94/58 L 02/08/23 11:30 97 H 97/54 L 02/08/23 11:00 95 H 102/56 L 02/08/23 10:30 94 H 90/52 L 02/08/23 10:00 96 H 103/59 L 02/08/23 09:32 94 H 97/53 L 02/08/23 09:18 36.6 C 95 H 02/08/23 08:04 36.8 C 99 H 16 02/08/23 08:00 BP Pulse Ox O2 Del Method 02/09/23 07:27 98 Room Air 02/09/23 04:17 92 Room Air 02/09/23 01:34 02/08/23 22:47 93 Room Air 02/08/23 19:43 109/57 L 02/08/23 19:25 91 Room Air 02/08/23 16:00 02/08/23 15:32 95/58 L 93 Room Air 02/08/23 13:34 94 Room Air 02/08/23 13:09 02/08/23 12:30 02/08/23 12:00 02/08/23 11:30 02/08/23 11:00 02/08/23 10:30 02/08/23 10:00 02/08/23 09:32 02/08/23 09:18 02/08/23 08:04 117/72 97 Room Air 02/08/23 08:00 Room Air Cardiovascular RRR, no murmur, no edema Respiratory normal respiratory effort, lungs clear to auscultation Pre-Sedation Airway Assessment Smoking Status: Unknown if ever smoked Hx Sleep Apnea: No Short, Thick Neck: Yes Thyromental Distance: > or= 3.5 Finger Breadths Oral Cavity: + Chipped Teeth Mallampati Class: III ASA: ASA3 NPO Status Date of Last Intake of Fluids: 02/09/23 Time of Last Intake of Fluids: 00:00 Last Oral Intake of Fluids Comment: per report Date of Last Intake of Solid Food: 02/09/23 Time of Last Intake of Solid Foods: 00:00 Last Intake of Solids Comment: per report Procedure Planning Contraindications for Sedation: none Current Medications Reviewed: Yes Notes The planned sedation has been discussed with the patient. Informed Consent was obtained. I have identified the patient, determined the appropriateness of sedation and have assessed the patient immediately prior to the procedure. All medicine(s) and interventions are by my order.
[2023-02-09 08:42] LABS: Hematocrit (blood only) 38.4 % (37.0-47.0); Mean Corpuscular Hgb Conc 31.3 g/dL (32.0-36.0); Mean Corpuscular Volume 92.8 fL (80.0-100.0); Mean Platelet Volume 10.6 fL (9.4-12.4); Platelet Count 225 K/uL (130-400); RDW Coefficient of Variation 15.2 % (11.5-14.5); RDW Standard Deviation 51.6 fL (36.4-46.3); Red Blood Count 4.14 M/uL (4.20-5.40); White Blood Count 9.29 K/ul (4.8-10.8)
[2023-02-09 09:01] LABS: BUN Creatinine Ratio 9.2 (10-20); C Reactive Protein 21.11 mg/dl (0-0.5); Calcium 10.1 mg/dl (8.6-10.3); Creatinine Clr Calc Pharmacy 10.1 ml/min; Est GFR (African American) 7.7 ml/min; Est GFR (Non-African American) 6.7 ml/min
--- NOTE | 2023-02-09 09:04 | Nephrology Progress Note ---
Date of Service February 09, 2023 Assessment & Plan (1) ESRD (end stage renal disease): Plan: * Volume status and electrolyte balance are acceptable. Will plan next HD for Wednesday * Outpatient Rx: MWF Revaclear 300 x 4 hours Qb 400 via [facility]. Delfina has refused AVF use * Monitor PRP (2) Hypotension of hemodialysis: Plan: * Midodrine pretreatment. Metoprolol held. (3) Peripheral arterial disease: Plan: * 02/04/23 LE duplex: Moderate to extensive atherosclerotic plaque within the lower extremities. Findings suggestive of a hemodynamically significant stenosis within the proximal left superficial femoral artery. Monophasic flow within the calf vessels. Probable occlusion of the right posterior tibial artery. Suspected occlusion of the mid left anterior tibial artery with distal reconstitution * Await angiography results (4) Cardiomyopathy: Plan: * 12/24/22 Echocardiogram: LVEF 25-30%, mod , mod MR, mod TR, elevated RVSP 50-60 mm Hg * Currently no angina, may benefit from Cardiology follow up (5) Failure to thrive in adult: Admission and Anticipated Discharge Date Admission Date: February 03, 2023 Subjective Mrs. Reyna was evaluated in her hospital room this morning. She had just returned from LE angiography. Mrs. Reyna denied fever, angina or dyspnea Review of Systems Constitutional: + weakness; no fever Eyes: no problem reported Ear, Nose, Mouth, Throat: no problem reported Respiratory: no cough and no dyspnea Cardiovascular: no chest pain Gastrointestinal: no abdominal pain, no nausea, no vomiting and no diarrhea/loose stools Musculoskeletal: + problem reported (bilateral foot pain) Physical Exam Constitutional: not in distress Eyes: PERRL, conjunctivae normal, anicteric sclerae ENMT: external ear and nose normal, oropharynx normal Neck: trachea midline, no thyromegaly Respiratory: normal respiratory effort, lungs clear to auscultation Cardiovascular: Rate/Rhythm: regular rate and regular rhythm Extremities: + edema (2+ pedal edema) Gastrointestinal (Abdomen): normal bowel sounds, soft, nontender, no hepatosplenomegaly Results & Data Vital Signs (Past 12 Hours) Vital Signs Temp Pulse Pulse Pulse Resp BP Pulse Ox 02/09/23 07:27 36.6 C 82 18 110/60 98 02/09/23 04:17 37.1 C 87 18 94/53 L 92 11/07/23 01:34 78 02/08/23 22:47 37.5 C 90 18 99/56 L 93 O2 Del Method 02/09/23 07:27 Room Air 02/09/23 04:17 Room Air 02/09/23 01:34 02/08/23 22:47 Room Air Laboratory Results Laboratory Tests 02/09/23 08:18 WBC 9.29 Hgb 12.0 Hct 38.4 Plt Count 225 Laboratory Tests 02/09/23 08:18 Sodium 137 Potassium 4.0 D Chloride 100 Carbon Dioxide 23 BUN 55 H D Creatinine 6.00 H* D Glucose 175 H PG Care Time/CCT Total # of Minutes Spent Total Time Spent with Patient: Total time spent is greater than 50% in coordination of care (as documented) at patient's floor/unit and/or counseling patient: Coding Level of Care Code 67483 SUB INP/OBS CARE 3/50MIN Diagnoses ESRD (end stage renal disease) N18.6 Hypotension of hemodialysis I95.3 Peripheral arterial disease I73.9 Cardiomyopathy I42.9 Failure to thrive in adult R62.7
[2023-02-09] MEDS ORDERED: VISIPAQUE IV PRN (10:23)
[2023-02-09] MEDS: INSULIN ASPART PER UNIT CHARGE SC SCH ×4 (10:31→21:01)
--- NOTE | 2023-02-09 10:31 | Procedure Note ---
Angiogram Post Procedure Fluoroscopy Time (minutes): 0.7 Conscious Sedation Time (minutes): 0 Radiation (mGy): 69 Contrast: 135 Post Operative Report Pre & Post Diagnosis Operation Date: 02/09/23 08:00 Pre-Op Diagnosis: Non Healing Ulcers to Bilateral Feet Post-Op Diagnosis: Non Healing Ulcers to Bilateral Feet I identified the patient and participated in the time-out.: Yes Procedure Operation Date: 02/09/23 08:00 Actual Procedures p Bilateral Lower Extremity Arteriogram, Ultrasound Localization of Right Femoral Artery, Mechanical Closure of Right Femoral Artery(Right) - Guanakito Luke MD Surgeon Guanakito Luke MD Wool Shearer none Estimated Blood Loss 5 Findings Consistent with Post-Op Diagnosis Specimens none Anesthesia Type Local Complications none Disposition Accompanied Patient To Recovery: No Disposition: Recovery Room Indications This is a 67-year-old female who was found to have ischemic ulcerations of the toes of both feet. Her noninvasive suggest a diffuse atherosclerotic changes as well as infrapopliteal occlusive disease. Arteriography was recommended to see if any endovascular procedures would expedite healing. She is not a good candidate for any surgical bypass if indicated. I have discussed the risks options and benefits of the procedure with the lobito ent. The patient understands the risks options and benefits and agrees to the procedure. Description of Procedure The patient was taken the angiogram suite and placed supine position. After both groins were prepped and draped in a sterile manner a timeout was performed and the patient was identified. Ultrasound was used to image the right common femoral artery. It was patent with mild atherosclerotic changes. Using ultrasound guidance the right common femoral artery was punctured and a 5 Divehi sheath inserted over a wire. 035 Glidewire was then passed up into the aorta and a pigtail was inserted over the wire to the distal aorta just above the bifurcation. Arteriography was then performed. This showed the common iliacs external iliacs internal iliacs common femoral arteries to be patent on both sides with mild plaque changes but no significant narrowings. The profunda and superficial femoral arteries also patent with mild plaque seen. Popliteal on both sides were also visualized and found to have no significant narrowing with mild irregularity and plaque. There was severe infrapopliteal artery occlusive disease. On the right side the anterior tibial artery was patent down to the foot and fed the dorsalis pedis artery. The peroneal and posterior tibial arteries were occluded. On the left lower extremity the tibioperoneal trunk was patent as well as the posterior tibial artery which was patent down to the foot with no significant narrowing seen but mild to moderate irregularity. The anterior tibial and peroneal arteries on the left side were occluded. That point was determined and no intervention was needed. The circulation would not be improved by treating any of these mild areas of irregularity. The pigtail was removed. The puncture site was closed using a Star closure device. Sterile dressing was placed on the puncture site.The patient left the operation room in satisfactory condition and tolerated the procedure well. All needle and sponge counts were correct at the end of the procedure.x I attest to the content of the Intraoperative Record and any orders documented therein. Any exceptions are noted below.
[2023-02-09] MEDS: SEVELAMER HCL 800 MG TABLET PO SCH ×3 (11:06→17:52)
[2023-02-09] MEDS: SODIUM ZIRCONIUM CYCLOSILICATE 10 GM PACKET PO SCH (11:06)
[2023-02-09] MEDS: PANTOprazole 40 MG TAB PO SCH (11:07)
[2023-02-09] MEDS: GABAPENTIN 100 MG CAP PO SCH ×2 (11:07→21:03)
[2023-02-09] MEDS: HEPARIN SOD 5,000 UNIT/0.5 ML VIAL SQ SCH ×2 (11:07→21:03)
[2023-02-09] MEDS: NEPHROCAPS PO SCH (11:07)
--- NOTE | 2023-02-09 13:53 | Electrocardiogram Report ---
Test Reason : Blood Pressure : / mmHG Vent. Rate : 087 BPM Atrial Rate : 087 BPM P-R Int : 178 ms QRS Dur : 106 ms QT Int : 382 ms P-R-T Axes : 086 040 255 degrees QTc Int : 459 ms Normal sinus rhythm Marked ST abnormality, possible inferior subendocardial injury Abnormal ECG When compared with ECG of 03-FEB-2023 16:06, Questionable change in QRS duration Confirmed by Spencer Montes ([id number]) on 02/09/2023 1:52:41 PM Referred By: REFERRED SELF Confirmed By:Spencer Montes
[2023-02-09] MEDS: LANTUS PER UNIT CHARGE SQ SCH (17:52)
[2023-02-09] MEDS: CLOPIDOGREL BISULFATE 75 MG TAB PO SCH (21:04)
[2023-02-09] MEDS: MoRPHine SULFATE 2 MG/ML CARP IV PRN (21:08)
--- NOTE | 2023-02-09 21:51 | Hospitalist Progress Note ---
Date of Service February 09, 2023 Assessment & Plan (1) Hypotension of hemodialysis: Plan: Ruled out occult infection. Midodrine has been ordered predialysis sessions. Appreciate nephrology consultation and hemodialysis orders. Blood cultures are negative to date Arteriogram of lower extremity completed. No further intervention needed as per vascular. (2) ESRD (end stage renal disease): Plan: Appreciate nephrology consultation and recommendations. MWF HD, follows with Dr. Garcia. Renal diet. Serial labs (3) Leg swelling: Plan: Venous Dopplers negative for DVT bilaterally. CK is normal at 22. Arterial Doppler evaluation bilateral lower extremities noted. There is evidence of arterial insufficiency. Vascular consultation appreciated. She appears to have ischemic left foot. Arteriography completed (4) Acute alteration in mental status: Plan: Acute metabolic encephalopathy present on admission. Now resolved. Supportive care. (5) CAD (coronary artery disease): Plan: Stable. Continue current medical management (6) GERD (gastroesophageal reflux disease): Plan: Stable. Continue PPI therapy (7) History of CVA (cerebrovascular accident): Plan: Stable. Continue plavix (8) Diabetes type 2, uncontrolled: Plan: Diabetic diet. Basal insulin therapy. Sliding scale coverage. Plan Anticipate eventual return to [facility] Admission and Anticipated Discharge Date Admission Date: February 03, 2023 Subjective 67 yo female reports no new symptoms Review of Systems Review of Systems: All systems reviewed & are unremarkable except as noted in HPI & below Physical Exam Physical Exam: General-awake. HEENT-head atraumatic and normocephalic Neck-no lymphadenopathy or thyromegaly, trachea midline Chest-clear to auscultation percussion. No rales, wheezing or rhonchi Cardiac-regular rate and rhythm, normal S1 and S2 Abdomen-normal bowel sounds, no hepatosplenomegaly Extremities-hronic stasis dermatitis noted bilateral lower extremities. Dry gangrenous changes of the distal aspect of several toes on both feet. Results & Data Results & Data Vital Signs (Past 12 Hours) Vital Signs Temp Pulse Pulse Pulse Resp BP BP 02/09/23 19:27 37 C 77 16 100/65 02/09/23 15:49 83 02/09/23 14:27 36.9 C 83 16 96/60 L 02/09/23 11:04 36.7 C 88 17 117/65 02/09/23 10:20 89 18 106/67 02/09/23 10:15 89 18 106/60 02/09/23 10:10 89 18 102/60 02/09/23 10:05 88 18 115/58 L 02/09/23 10:00 87 18 112/58 L 02/09/23 09:55 86 18 112/59 L Pulse Ox O2 Del Method O2 Flow Rate 02/09/23 19:27 96 Room Air 02/09/23 15:49 02/09/23 14:27 96 Room Air 02/09/23 11:04 94 Room Air 02/09/23 10:20 100 Oxymask 4 02/09/23 10:15 100 Oxymask 4 02/09/23 10:10 100 Oxymask 4 02/09/23 10:05 97 Oxymask 4 02/09/23 10:00 100 Oxymask 4 02/09/23 09:55 100 Oxymask 4 PG Care Time/CCT Total # of Minutes Spent Total Time Spent with Patient: Total time spent is greater than 50% in coordination of care (as documented) at patient's floor/unit and/or counseling patient: Coding Level of Care Code 46854 SUB INP/OBS CARE 2/35MIN Diagnoses Hypotension of hemodialysis I95.3 ESRD (end stage renal disease) N18.6 Leg swelling M79.89 Acute alteration in mental status R41.82 CAD (coronary artery disease) I25.10 GERD (gastroesophageal reflux disease) K21.9 History of CVA (cerebrovascular accident) Z86.73 Uncontrolled type 2 diabetes mellitus with hyperglycemia E11.65 Glycemic state: with hyperglycemia (8) Diabetes type 2, uncontrolled Glycemic state: with hyperglycemia Qualified Code(s): E11.65 - Type 2 diabetes mellitus with hyperglycemia
[2023-02-10] MEDS ORDERED: HEPARIN SOD (PORCINE) 1000 UNIT/ML IV ONE (07:00)
[2023-02-10] MEDS ORDERED: SODIUM CHLORIDE 0.9% 1,000 ML IV PRN (07:00)
[2023-02-10] MEDS: MIDODRINE HCL 10 MG TAB PO PRN (08:25)
[2023-02-10] MEDS: GABAPENTIN 100 MG CAP PO SCH (08:26)
[2023-02-10] MEDS: SEVELAMER HCL 800 MG TABLET PO SCH ×2 (08:26→13:39)
[2023-02-10] MEDS: NEPHROCAPS PO SCH (08:26)
[2023-02-10] MEDS: HEPARIN SOD 5,000 UNIT/0.5 ML VIAL SQ SCH (08:26)
[2023-02-10] MEDS: PANTOprazole 40 MG TAB PO SCH (08:26)
[2023-02-10] MEDS: INSULIN ASPART PER UNIT CHARGE SC SCH ×2 (09:13→13:37)
--- NOTE | 2023-02-10 10:20 | Nephrology Progress Note ---
Date of Service February 10, 2023 Assessment & Plan (1) ESRD (end stage renal disease): Plan: * HD today to maintain regular MWF schedule. Orders have been placed in EMR and HD RN notified * Outpatient Rx: MWF Revaclear 300 x 4 hours Qb 400 via [facility]. Delfina has refused AVF use * Monitor PRP (2) Hypotension of hemodialysis: Plan: * Midodrine pretreatment. Metoprolol held. (3) Peripheral arterial disease: Plan: * 02/04/23 LE duplex: Moderate to extensive atherosclerotic plaque within the lower extremities. Findings suggestive of a hemodynamically significant stenosis within the proximal left superficial femoral artery. Monophasic flow within the calf vessels. Probable occlusion of the right posterior tibial artery. Suspected occlusion of the mid left anterior tibial artery with distal reconstitution * Angiography 02/09/23 did not reveal any lesions amenable to [employer]. Patient likely has small vessel disease. Await further Vascular Surgery input (4) Cardiomyopathy: Plan: * 12/24/22 Echocardiogram: LVEF 25-30%, mod , mod MR, mod TR, elevated RVSP 50-60 mm Hg * Currently no angina, may benefit from Cardiology follow up (5) Failure to thrive in adult: Admission and Anticipated Discharge Date Admission Date: February 03, 2023 Subjective Mrs. Reyna was evaluated in her hospital room prior to HD and later seen again while receiving HD. She c/o bilateral foot pain Review of Systems Constitutional: + weakness; no fever Eyes: no problem reported Ear, Nose, Mouth, Throat: no problem reported Respiratory: no cough and no dyspnea Cardiovascular: no chest pain Gastrointestinal: no abdominal pain, no nausea, no vomiting and no diarrhea/loose stools Musculoskeletal: + problem reported (bilateral foot pain) Physical Exam Constitutional: not in distress Eyes: PERRL, conjunctivae normal, anicteric sclerae ENMT: external ear and nose normal, oropharynx normal Neck: trachea midline, no thyromegaly Respiratory: normal respiratory effort, lungs clear to auscultation Cardiovascular: Rate/Rhythm: regular rate and regular rhythm Extremities: no edema Gastrointestinal (Abdomen): normal bowel sounds, soft, nontender, no hepatosplenomegaly Skin: Toes of both feet appear cyanotic Results & Data Vital Signs (Past 12 Hours) Vital Signs Temp Pulse Pulse Pulse Resp BP BP 02/10/23 10:00 85 120/65 02/10/23 09:30 83 122/67 02/10/23 08:30 36.8 C 85 02/10/23 08:30 36.9 C 83 18 92/52 L 02/10/23 03:57 36.9 C 74 16 107/66 02/10/23 00:05 37 C 72 16 102/63 Pulse Ox O2 Del Method 02/10/23 10:00 02/10/23 09:30 02/10/23 08:30 02/10/23 08:30 93 Room Air 02/10/23 03:57 96 Room Air 02/10/23 00:05 93 Room Air PG Care Time/CCT Total # of Minutes Spent Total Time Spent with Patient: Total time spent is greater than 50% in coordination of care (as documented) at patient's floor/unit and/or counseling patient: Coding Level of Care Code 09993 SUB INP/OBS CARE 3/50MIN Diagnoses ESRD (end stage renal disease) N18.6 Hypotension of hemodialysis I95.3 Peripheral arterial disease I73.9 Cardiomyopathy I42.9 Failure to thrive in adult R62.7
[2023-02-10] MEDS: MoRPHine SULFATE 2 MG/ML CARP IV PRN (13:39)
[2023-02-10] MEDS: SODIUM CHLORIDE 0.9% 1,000 ML IV SCH (13:56)
--- NOTE | 2023-02-10 14:49 | Discharge Summary ---
Date of Service February 10, 2023 Admission HPI Per Admitting Provider Delfina is a 67 yo F PMHx significant for GERD, ESRD on hemodialysis (MWF), uncontrolled DM2 on insulin therapy, CAD, history of CVA, and superficial thrombosis of LLE on Eliquiswho was sent to the [facility] ED from the dialysis center after becoming hypotensive with systolic BP in the 60's and AMS. On arrival to the ED she is stable and alert/oriented. CBC is WNL, CMP shows a potassium of 3.2, AG of 13 with Bicarb WNL, glucose of 195. The ED staff spoke with Dr. Garcia who would like the patient to be admitted for a slow session of dialysis tomorrow as the patient needs to have approximately 9L of fluid removed; she only had 2L removed today at dialysis. At the time of the exam the patient was sitting in bed in no acute distress. She is fatigued but able to communicate. She states that she is unsure what bartlett ppened at dialysis but confirms that she is often very tired after dialysis. She denies recent fever, chills, chest pain, cough, abd pain, nausea, vomiting, diarrhea, dysuria, hematuria, melena, and recent trauma. She confirms that she makes a small amount of urine and denies recent dysuria, hematuria. She states that her LE's have been more swollen and painful recently. She states that her right great toenail was removed and that wound care is following her chronic wounds on the BL great toes. She is unsure of her medications. She confirms that she is a full code; her is her POA. I called and spoke to the staff at [facility]. They confirm that the patient has been having ongoing issues with hypotension on dialysis days. They state that she takes 1 mg PO bumex BID on non-dialysis days, is still on daily metoprolol, and has been getting 5 mg PO midodrine on the mornings of dialysis with additional prn doses as needed. They state that she also takes trazodone nightly for insomnia. When asked, they confirm that she is always very tired and confused after dialysis. Please refer to Dr. Teran's attestation for any changes to the treatment plan Discharge Data Allergies Allergy/AdvReac Type Severity Reaction Status Date / Time dulaglutide [From [facility]] Allergy Intermediate Hives Verified 02/09/23 07:26 atorvastatin AdvReac Intermediate Statin Verified 02/09/23 07:26 Cardiomyopathy erythromycin base AdvReac Intermediate Vomiting Verified 02/09/23 07:26 Consultations 02/03/23 14:30 ED Decision to Admit Stat 02/03/23 15:27 Consult Nephrology Routine 02/04/23 12:30 Consult Podiatry Routine 02/04/23 22:32 Consult Vascular Surgery Routine 02/05/23 09:20 Consult Vascular Surgery Routine Procedures Performed Operation Date: 02/09/23 08:00 Actual Procedures p Bilateral Lower Extremity Arteriogram, Ultrasound Localization of Right Femoral Artery, Mechanical Closure of Right Femoral Artery(Right) - Guanakito Luke MD Ordered Studies 02/03/23 15:09 US venous doppler LE BI Urgent 02/04/23 10:16 US arterial duplex LE BI Urgent 02/09/23 07:25 EV angio LE BI Routine US EV guide vascular access Routine Hospital Course (1) Hypotension of hemodialysis: Ruled out occult infection. Midodrine has been ordered predialysis sessions. Appreciate nephrology consultation and hemodialysis orders. Blood cultures are negative to date Arteriogram of lower extremity completed. No further intervention needed as per vascular. (2) ESRD (end stage renal disease): Appreciate nephrology consultation and recommendations. MWF HD, follows with Dr. Garcia. Renal diet. Serial labs (3) Leg swelling: Venous Dopplers negative for DVT bilaterally. CK is normal at 22. Arterial Doppler evaluation bilateral lower extremities noted. There is evidence of arterial insufficiency. Vascular consultation appreciated. She appears to have ischemic left foot. Arteriography completed (4) Acute alteration in mental status: Acute metabolic encephalopathy present on admission. Now resolved. Supportive care. (5) CAD (coronary artery disease): Stable. Continue current medical management (6) GERD (gastroesophageal reflux disease): Stable. Continue PPI therapy (7) History of CVA (cerebrovascular accident): Stable. Continue plavix (8) Diabetes type 2, uncontrolled: Diabetic diet. Basal insulin therapy. Sliding scale coverage. Plan Anticipate eventual return to [facility] Discharge Plan Discharge Items Patient Disposition[facility] Reason For Visit: HYPOTENSION, AMS DURING DIALYSIS Discharge Diagnosis: AMS during dialysis Activity: Resume your previous activity Non-emergency contact: Primary Care Provider Call non-emergency contact if: you have any medication questions Follow-up/Referrals: Patterson,Rashel P., DO [Primary Care Provider] - Diet: Carb Consistent or DM2 and Dialysis Renal Fluids: 1800ml (7 cups) Addtl Attending Provider Instructions: MWF Revaclear 300 x 4 hours Qb 400 via [facility] Pending Studies at Discharge: No Stand-Alone Forms: My [facility] Agg[employer] Knowledge Skilled Items Patient informed of condition?: No DNR: No Discharge Level of Care: Skilled Communicable Disease: No Discharge Prognosis: Stable Lines: None Urinary Catheter: No Medications and DC Order Prescriptions: Continued (DME) Dexcom G6 Transmitter Device See Rx Instructions .Route Qty: 1 3RF Rx Instructions: As directed. (DME) Dexcom G6 Sensor Device See Rx Instructions .Route Qty: 3 5RF Rx Instructions: As directed. (DME) pen needle, diabetic [BD Ultra-Fine Gwen Pen Needle] 32 gauge x 5/32" needle See Rx Instructions .ROUTE .MEDSUPPLY Qty: 500 3RF Rx Instructions: Use 5 per day as directed with insulin injection (DME) OneTouch Ultra Test Strip See Rx Instructions .Route Qty: 200 5RF Rx Instructions: Check blood sugars QID and as needed cholecalciferol (vitamin D3) 125 mcg (5,000 unit) capsule 125 mcg PO DAILY Qty: 45 0RF Rx Instructions: take one capsule by mouth daily after HD for six weeks. sevelamer carbonate 800 mg tablet 800 mg PO TID Qty: 270 3RF Rx Instructions: must administer with a meal/food bumetanide 2 mg tablet 1 mg PO BID Rx Instructions: 1mg on Wednesday, , wed, and wednesday cinacalcet 30 mg tablet 30 mg PO 3XWK Rx Instructions: not on faxed list from [facility], unable to verify QHS QMWF (DME) blood-glucose meter [OneTouch Ultra2 Meter] Kit See Rx Instructions .Route Qty: 1 0RF Rx Instructions: As directed (DME) lancets [OneTouch UltraSoft Lancets] Misc See Rx Instructions .Route Qty: 200 5RF Rx Instructions: Check blood sugars QID and as needed insulin aspart U-100 [Novolog FlexPen U-100 Insulin] 100 unit/mL (3 mL) insulin pen 5 unit SC TIDM Qty: 15 5RF Rx Instructions: take 5 units with meals, TID insulin glargine [Lantus U-100 Insulin] 100 unit/mL solution 25 unit subcut HS Qty: 10 2RF insulin aspart U-100 [Novolog FlexPen U-100 Insulin] 100 unit/mL (3 mL) Insulin Pen See Rx Instructions .ROUTE .COMPLEX PRN (Reason: Other) Rx Instructions: PER FAXED MED LIST FROM PHARMACY- 1-15 UNITS TID DAILY WITH MEALS PRN FOR SLIDING SCALE (FILL DATE: 09/04/22) loperamide 2 mg capsule 0 mg PO Q4H PRN (Reason: loose stool) Rx Instructions: not on faxed list from [facility], unable to verify Renal Caps 1 mg capsule 0 cap PO QAM Rx Instructions: not on faxed list from [facility], unable to verify midodrine 5 mg tablet 5 mg PO 3XWK PRN (Reason: Hypotension) gabapentin 100 mg Capsule 100 mg PO BID clopidogrel [Plavix] 75 mg tablet 75 mg PO HS trazodone 50 mg tablet 25 mg PO HS Rx Instructions: For insomnia pantoprazole 40 mg tablet,delayed release (DR/EC) 40 mg PO QAM Changed midodrine 5 mg tablet 10 mg PO 3XWK Qty: 90 0RF Rx Instructions: Wednesday,l wednesday, wednesday before dialysis Discontinued metoprolol succinate 25 mg tablet extended release 24 hr 25 mg PO QAM Qty: 30 0RF Veltassa 8.4 gram powder in packet 8.4 g PO DAILY Qty: 30 2RF Discharge Orders: Discharge Order (Routine); Ordered 02/10/23 Ordered By: Martín Zacarias Admission Data Admit Date/Time: 02/03/23 14:36 Attending Provider: Martín Zacarias Admit Provider: Chris Teran Primary Care Provider: Rashel Patterson Other Providers: [facility]; Guanakito Luke; Chris Teran; Saad Garcia; Brando Durant Coding Diagnoses Hypotension of hemodialysis I95.3 ESRD (end stage renal disease) N18.6 Leg swelling M79.89 Acute alteration in mental status R41.82 CAD (coronary artery disease) I25.10 GERD (gastroesophageal reflux disease) K21.9 History of CVA (cerebrovascular accident) Z86.73 Uncontrolled type 2 diabetes mellitus with hyperglycemia E11.65 Glycemic state: with hyperglycemia
== END 2023-02-10 15:49 | DRG 312 ==
LOC: ED 12:24 → SUATTDRO 14:36 → EDINP 14:36 → 2N 17:02

== ENCOUNTER 2023-02-12 10:00 | Inpatient (IN) ==
--- NOTE | 2023-02-12 11:48 | XRay Report ---
XR chest 1V portable CLINICAL HISTORY: missed diaylsis TECHNIQUE: Single frontal radiograph of the chest was obtained. Comparison: Comparison is made to chest radiograph 02/03/2023 FINDINGS: Stable right venous catheter. Calcified aortic knob is seen. The lungs are clear. No evidence of pleu ral effusion or pneumothorax. IMPRESSION: No acute chest disease. ACT 112: Negative or not required by law. Electronically signed by: Angel Thompson M.D. 02/12/2023 11:46 AM
[2023-02-12 11:50] LABS: Eosinophils # (auto) 0.23 K/uL (0.00-0.50); Eosinophils % (auto) 2.4 %; Hematocrit (blood only) 38.3 % (37.0-47.0); Hemoglobin 11.9 g/dl (12.0-16.0); Immature Granulocytes # (auto) 0.07 K/uL (0.01-0.20); Immature Granulocytes % (auto) 0.7 %; Lymphocytes # (auto) 1.36 K/uL (1.20-3.40); Lymphocytes % (auto) 14.3 %; Mean Corpuscular Hgb Conc 31.1 g/dL (32.0-36.0); Mean Corpuscular Volume 93.4 fL (80.0-100.0); Mean Platelet Volume 10.7 fL (9.4-12.4); Monocytes # (auto) 0.88 K/uL (0.11-0.59); Monocytes % (auto) 9.2 %; Neutrophils # (auto) 6.89 K/uL (1.40-6.50); Neutrophils % (auto) 72.4 %; Platelet Count 259 K/uL (130-400); RDW Coefficient of Variation 15.3 % (11.5-14.5); RDW Standard Deviation 52.8 fL (36.4-46.3); White Blood Count 9.53 K/ul (4.8-10.8)
[2023-02-12] MEDS ORDERED: HEPARIN SOD (PORCINE) 1000 UNIT/ML IV ONE (11:54)
[2023-02-12] MEDS ORDERED: SODIUM CHLORIDE 0.9% 1,000 ML IV PRN (11:54)
--- NOTE | 2023-02-12 12:08 | Emergency Department Note ---
Impression & Plan ESRD (end stage renal disease), Encounter for dialysis and dialysis catheter care ED Provider Note Provider: Mike Armenta MD DATE OF SERVICE: 02/12/2023 CHIEF COMPLAINT: Dialysis issues HISTORY OF PRESENT ILLNESS: Patient is a 67-year-old female past medical history including type 2 diabetes, PAD, end-stage renal disease on hemodialysis, and CVA presenting here today from [facility]. Patient was admitted here this past week and has had some issues with low blood pressures. Had similar pressure today but the patient denies any symptoms of dizziness chest pain shortness of breath or syncope. Evidently this past week had a work-up for this which was unremarkable and started on midodrine. Did have this this morning according records from the facility. Nursing received report from the nurses at the facility that they were unable to complete dialysis today due to malfunction of the patient's dialysis catheter which placed in her right chest. Patient's family at bedside state they received a call that this could not happen unless they brought her here for evaluation. Patient with chronic leg swelling. Denies nausea or again chest pain or shortness of breath. PAST MEDICAL HISTORY: As noted above MEDICATIONS: Reviewed medication list from the facility SOCIAL HISTORY: Resides at [facility] PHYSICAL EXAM: GENERAL: alert and oriented in no acute distress on stretcher Head: normocephalic and atraumatic EYES: No injection, discharge or icterus. NECK: Trachea midline. ENT: Mucous membranes pink and moist. LUNGS: Airway patent. No retractions. Breath sounds clear with good air entry bilaterally. HEART: Regular rate and rhythm. No chest wall tenderness with a right upper chest dialysis catheter in place. ABDOMEN: Soft and non-tender, without guarding or rebound. SKIN: Acyanotic, warm, dry, without rashes EXTREMITIES: 2+ edema of the lower extremities trace erythema reportedly chronic with some mild diffuse tenderness bilaterally -- reportedly chronic. NEUROLOGICAL: No focal deficits. No aphasia. No facial droop or slurred speech. EK bpm normal sinus rhythm. No PVC or PAC. Some inferior ST depression and T wave inversion noted without multiple areas of ST segment elevation in the anterior leads. QTc 459. Compared to previous from February 09 of this year similar morphologies. Patient's laboratory studies and imaging reviewed. Differential includes Infection, dehydration, metabolic abnormality, hypo/hyperglycemia, electrolyte disturbance, anemia, hypoxia, cardiac sources, intracerebral event, toxicologic, neurologic, as well as other pathologies. IMPRESSION/MEDICAL DECISION MAKING: Patient blood pressure around 100 here. Reviewed prior records and note including discharge summary from her admission here this past week. Did reach out to her quebracho tanner and discussed via phone the situation. Evidently issues with dialysis catheter no flushes okay for us here in the emergency department. We will have her evaluated by dialysis staff upstairs with plan for dialysis if able. If not may need vascular assistance with catheter troubleshooting. Dr. Vance and nephrology recommended admission for this to occur. Basic blood work and electrolyte obtained. Does not appear severely fluid overloaded and I do not see an emergent indication for dialysis at this time. Electrolytes were sent. No evidence of significant hyperkalemia noted. Chronic swelling of the legs reportedly normal in discussion with the patient DIAGNOSIS: Dialysis catheter malfunction, end-stage renal disease on dialysis secondary to type 2 diabetes DISPOSITION: Hospitalist will evaluate Patient was agreeable with this plan. Past Med/Surg History Medical History Traumatic ulcer of left lower leg Osteopenia ESRD (end stage renal disease) Nocturnal hypoxemia Hx of Lyme disease GERD (gastroesophageal reflux disease) Vitamin D deficiency Diabetic nephropathy associated with type 2 diabetes mellitus Subclinical hypothyroidism TSH 5.180 in 01/2021 Dyslipidemia Diabetes type 2, uncontrolled Background diabetic retinopathy associated with type 2 diabetes mellitus Primary hyperparathyroidism CAD (coronary artery disease) Non obstructive (August 2009) per cardio records Morbid obesity Vocal cord paralysis syndrome Anemia History of CVA (cerebrovascular accident) (2016) Mitral regurgitation Hypertension Surgical History [place] teeth removed History of cataract surgery RT/LEFT History of vascular access device 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 (USING FOR DIALYSIS) Status post laparoscopic cholecystectomy (10/07/19) Difficult airway for intubation PT STATES HAS HAD VOCAL CORD PARAYSIS IN PAST Fiberoptic intubation used with 10/2019 lap odalis Hx of colonoscopy Hx of tubal ligation Hx of tonsillectomy Hx of eye surgery EYE MUSCLE REPAIR S/P cardiac catheterization OVER 10 YEARS AGO/NO STENTS Family History Father Family history of diabetes mellitus Aunt Family history of diabetes mellitus Uncle Family history of diabetes mellitus Brother Family history of diabetes mellitus Brother Family history of diabetes mellitus Grandmother (Maternal) Family hx of colon cancer Other Alzheimer disease Coronary heart disease No family history of adverse response to anesthesia Social History Smoking Status: Never smoker Tobacco Type: Cigarettes Second Hand Exposure: No; Do You Dip or Chew Tobacco: No; Hx Alcohol Use: No Hx Substance Use: No Preferred Language: Swedish Communication Ability: Effective Visual Impairment: Limited Hearing Ability: Normal Dispute Coordinator Required: No Beliefs That Will Affect Care: None marital status: Current Living Situation: Rehab Current Living Situation Comment: [facility] Feels Safe at Home: Yes Diet: low salt and vegetarian caffeine: Yes Seatbelt Use: always Assistive Devices: Wheelchair Allergies Allergies Allergy/AdvReac Type Severity Reaction Status Date / Time dulaglutide [[facility]] Allergy Intermediate Hives Verified 02/09/23 07:26 atorvastatin AdvReac Intermediate Statin Verified 02/09/23 07:26 Cardiomyopathy erythromycin base AdvReac Intermediate Vomiting Verified 02/09/23 07:26 Home Meds Home Medications Medication Instructions Recorded Confirmed pantoprazole 40 mg tablet,delayed 40 mg PO QAM 09/16/22 02/12/23 release loperamide 2 mg capsule 2 mg PO Q4H PRN loose stool 10/24/22 02/12/23 vitamin B complex and vitamin C 0 cap PO QAM 10/24/22 02/12/23 no.20-folic acid 1 mg capsule (Renal Caps) bumetanide 2 mg tablet 1 mg PO BID 12/02/22 02/12/23 cinacalcet 30 mg tablet 30 mg PO 3XWK 12/02/22 02/12/23 clopidogrel 75 mg tablet (Plavix) 75 mg PO HS 02/03/23 02/12/23 gabapentin 100 mg capsule 100 mg PO BID 02/03/23 02/12/23 trazodone 50 mg tablet 25 mg PO HS 02/03/23 02/12/23 acetaminophen 325 mg tablet 650 mg PO Q6H PRN FEVER >100 02/12/23 02/12/23 (Tylenol) acetaminophen 325 mg tablet 650 mg PO Q6H PRN PAIN 1-10 02/12/23 02/12/23 (Tylenol) bacitracin 500 unit/gram topical 1 applic topical DAILY 02/12/23 02/12/23 ointment cholecalciferol (vitamin D3) 125 125 mcg PO HS 02/12/23 02/12/23 mcg (5,000 unit) capsule Previous Rx's Medication Instructions Recorded blood-glucose sensor (Dexcom G6 #3 ea 06/24/21 Sensor device) blood-glucose transmitter (Dexcom #1 ea 06/24/21 G6 Transmitter device) blood-glucose meter (OneTouch #1 ea 11/25/21 Ultra2 Meter kit) lancets (OneTouch UltraSoft #200 ea 11/25/21 Lancets) BD Ultra-Fine Gwen Pen Needle 32 #500 ea 08/10/22 gauge x 5/32" (pen needle, diabetic) blood sugar diagnostic (OneTouch #200 ea 08/10/22 Ultra Test strips) sevelamer carbonate 800 mg tablet 800 mg PO TID #270 tabs 10/20/22 insulin aspart U-100 100 unit/mL 5 unit (0.05 mL) SC TIDM #15 mL 10/22/22 (3 mL) subcutaneous pen (Novolog FlexPen U-100 Insulin aspart) insulin glargine 100 unit/mL 25 unit (0.25 mL) subcut HS #10 mL 10/22/22 subcutaneous solution (Lantus U-100 Insulin) midodrine 5 mg tablet 10 mg (2 x 5 mg) PO 3XWK #90 tabs 02/10/23 Results & Data (ED) Vital Signs Vital Signs - 24 hr 02/12/23 10:17 02/12/23 10:51 02/12/23 11:31 Temperature 36.7 C Temperature Source Temporal Artery Scan Pulse Rate 81 72 Pulse Rate [Left Apical] 79 Pulse Rate [Left Radial] Pulse Rhythm [Left Radial] Pulse Strength [Left Radial] Respiratory Rate 18 16 Respiratory Effort / Characteristics Non-Labored Spontaneous Respiratory Depth Normal Blood Pressure - Lying Blood Pressure 101/64 Blood Pressure [Left Arm] 104/62 Blood Pressure Mean 76 Blood Pressure Mean [Left Arm] 76 Blood Pressure Position Pulse Oximetry 97 97 Oxygen Delivery Method Room Air Room Air Sepsis Recent Fever Within 48 Hours No Sepsis New/Unexplained Change in Mental Status No Sepsis Action Taken by Nursing No Action Required 02/12/23 12:07 02/12/23 12:30 02/12/23 13:00 Temperature 36.4 C L Temperature Source Oral Pulse Rate 73 74 Pulse Rate [Left Apical] Pulse Rate [Left Radial] 74 Pulse Rhythm [Left Radial] Regular Pulse Strength [Left Radial] Normal Respiratory Rate Respiratory Effort / Characteristics Respiratory Depth Blood Pressure - Lying 108/61 Blood Pressure 103/58 L 112/64 Blood Pressure [Left Arm] Blood Pressure Mean Blood Pressure Mean [Left Arm] Blood Pressure Position Semi-fowlers Semi-fowlers Pulse Oximetry Oxygen Delivery Method Sepsis Recent Fever Within 48 Hours Sepsis New/Unexplained Change in Mental Status Sepsis Action Taken by Nursing 02/12/23 13:30 02/12/23 14:00 Temperature Temperature Source Pulse Rate 77 71 Pulse Rate [Left Apical] Pulse Rate [Left Radial] Pulse Rhythm [Left Radial] Pulse Strength [Left Radial] Respiratory Rate Respiratory Effort / Characteristics Respiratory Depth Blood Pressure - Lying Blood Pressure 107/63 110/53 L Blood Pressure [Left Arm] Blood Pressure Mean Blood Pressure Mean [Left Arm] Blood Pressure Position Semi-fowlers Semi-fowlers Pulse Oximetry Oxygen Delivery Method Sepsis Recent Fever Within 48 Hours Sepsis New/Unexplained Change in Mental Status Sepsis Action Taken by Nursing Laboratory Data 02/12/23 10:52 02/12/23 10:52 Lab Results 02/12/23 Range/Units 10:52 WBC 9.53 (4.8-10.8) K/ul RBC 4.10 L (4.20-5.40) M/uL Hgb 11.9 L (12.0-16.0) g/dl Hct 38.3 (37.0-47.0) % MCV 93.4 (80.0-100.0) fL MCH 29.0 (25.0-34.0) pg MCHC 31.1 L (32.0-36.0) g/dL RDW Std Deviation 52.8 H (36.4-46.3) fL RDW Coeff of Braeden 15.3 H (11.5-14.5) % Plt Count 259 (130-400) K/uL MPV 10.7 (9.4-12.4) fL Immature Gran % (Auto) 0.7 % Neut % (Auto) 72.4 % Lymph % (Auto) 14.3 % [place] % (Auto) 9.2 % Eos % (Auto) 2.4 % Baso % (Auto) 1.0 % Neut # (Auto) 6.89 H (1.40-6.50) K/uL Lymph # (Auto) 1.36 (1.20-3.40) K/uL [place] # (Auto) 0.88 H (0.11-0.59) K/uL Eos # (Auto) 0.23 (0.00-0.50) K/uL Baso # (Auto) 0.10 (0.00-0.20) K/uL Immature Gran # (Auto) 0.07 (0.01-0.20) K/uL Sodium 135 L (136-145) mmol/L Potassium 4.5 (3.5-5.1) mmol/L Chloride 98 (98-107) mmol/L Carbon Dioxide 23 (21-32) mmol/L Anion Gap 14 H (3-11) BUN 56 H (6-23) mg/dl Creatinine 6.99 H* (0.6-1.2) mg/dl Est Cr Clr Drug Dosing 8.9 ml/min Est GFR ( Amer) 6.4 ml/min Est GFR (Non-Af Amer) 5.6 ml/min BUN/Creatinine Ratio 8.0 L (10-20) Glucose 316 H* (70-99(Fasting)) mg/dl Calcium 10.2 (8.6-10.3) mg/dl Magnesium 2.5 H (1.7-2.4) mg/dl Total Bilirubin 0.4 (0.2-1.0) mg/dl AST 17 (13-39) U/L ALT 3 L (7-52) U/L Alkaline Phosphatase 128 H (34-104) U/L Total Protein 7.8 (6.0-8.3) gm/dl Albumin 3.2 L (3.4-5.0) gm/dl Globulin 4.6 H (2.5-4.0) gm/dl Albumin/Globulin Ratio 0.7 L (0.9-2) Administered Medications Discontinued Medications Heparin Sodium (Porcine) (Heparin Sod (Porcine) 1000 Unit/Ml) 2,000 units IV ONE ONE Stop: 02/12/23 11:55 Last Admin: 02/12/23 14:42 Dose: Not Given Documented By: CC Hydromorphone HCl (Hydromorphone Inj 0.5 Mg/0.5 Ml Syr) 0.25 mg IV NOW STA Stop: 02/12/23 13:33 Last Admin: 02/12/23 14:10 Dose: 0.25 mg Documented By: Insulin Aspart (Insulin Aspart Per Unit Charge) 4 units SC NOW STA Stop: 02/12/23 12:53 Last Admin: 02/12/23 14:10 Dose: 4 units Documented By: Co-signed By: SHANNAN Imaging Data Radiologist's Impression: Chest X-Ray 02/12/23 11:28 XR chest 1V portable CLINICAL HISTORY: missed diaylsis TECHNIQUE: Single frontal radiograph of the chest was obtained. Comparison: Comparison is made to chest radiograph 02/03/2023 FINDINGS: Stable right venous catheter. Calcified aortic knob is seen. The lungs are clear. No evidence of pleural effusion or pneumothorax. IMPRESSION: No acute chest disease. ACT 112: Negative or not required by law. Electronically signed by: Angel Thompson M.D. 02/12/2023 11:46 AM Discharge Plan Visit Data Chief Complaint: Hypotension Stated Complaint: LOW BP,PORT ISSUES ED Provider: Mike Armenta Discharge Problem: ESRD (end stage renal disease), Encounter for dialysis and dialysis catheter care Patient Disposition: Admitted As Inpatient Discharge Instructions Interventions: ED Discharge Assessment Last Done: 02/12/23 15:24
[2023-02-12 12:32] LABS: Albumin Globulin Ratio 0.7 (0.9-2); Albumin Level 3.2 gm/dl (3.4-5.0); Bilirubin,Total 0.4 mg/dl (0.2-1.0); Calcium 10.2 mg/dl (8.6-10.3); Creatinine Clr Calc Pharmacy 8.9 ml/min; Est GFR (African American) 6.4 ml/min; Est GFR (Non-African American) 5.6 ml/min; Globulin 4.6 gm/dl (2.5-4.0); Magnesium 2.5 mg/dl (1.7-2.4); Potassium 4.5 mmol/L (3.5-5.1); Total Protein 7.8 gm/dl (6.0-8.3)
--- NOTE | 2023-02-12 12:36 | History & Physical Report ---
Date of Service February 12, 2023 Assessment & Plan (1) ESRD (end stage renal disease): Plan: HD on // Problem with [facility] dialysis port on morning of 02/12 Electrolytes WNL with a mild anion gap at 14 On arrival, creatinine 6.99, BUN 56, and eGFR 5.6 Appreciate nephrology consult Vascular surgery was consulted for the [facility] dialysis port Patient received HD inpatient Continue to monitor daily BMP A.m. CBC, BMP, mag, PT/INR (2) Peripheral arterial disease: Plan: Intermittent sharp LLE pain 12/13 S/p bilateral lower extremity arteriogram, mechanical closure of right femoral artery with Dr. Luke on 02/09 LLE is erythematous, edematous, warm to touch on physical exam Ischemic hallux on left foot; monophasic flow intact Doppler at DP, PT Acetaminophen 650 mg p.o. q6h as needed for pain Dilaudid 0.25-0.50mg IV q4h as needed for breakthrough pain; caution in patient with ESRD We will defer to vascular surgery if patient needs further intervention (3) Diabetes type 2, uncontrolled: Plan: Glucose 316 on arrival Last A1c 10.9% on 09/17/2022 4 units aspart given at time of admission T2DM diet/renal diet Monitor BSG ACHS, goal of 110-150mg/dL, CF 30, carb ratio 10 SSI; normally takes 25 units glargine at bedtime, will reduce to 20 units at bedtime for now Adjust regimen as necessary Pharmacy glycemic consult placed AM A1c (4) Hypotension: Plan: BP 103/58 at time of admit Prior [facility] admission from 02/03-02/10 for hypertension Continue midodrine 10 mg Continue to monitor (5) Cardiomyopathy: Plan: History of Takotsubo's cardiomyopathy in 2009 Last EKG on 12/24/2022 showed an LVEF of 25 to 30%, moderate AAS, mild MR, mild TR, and elevated RVSP at 50-60mmHg (6) Venous stasis ulcer of both lower extremities without varicose veins: (7) Morbid obesity: (8) Dyslipidemia: (9) CAD (coronary artery disease): Plan [facility] Full code VTE PPx: Heparin bolus 2000 you IV admission, then heparin 5000u q12h starting tomorrow night History of Present Illness Chief Complaint: Dialysis, lower extremity pain Primary Care Provider: Kaushik Mcgarry MD Delfina is a 67-year-old female from [facility] with PMH of ESRD, CVA in 2017, anemia, osteopenia, T2DM, dyslipidemia, GERD, Lyme disease, MR, Takotsubo's cardiomyopathy, CAD, and PAD. She receives dialysis M/W/F at [facility], but reportedly had low blood pressure this morning on 02/12, and there was an issue with her [facility] dialysis port (flow rate 300-->200). Patient arrived in the ED, and received inpatient hemodialysis. She is also endorsing left lower leg pain x1 week. She rates the pain 12/13, and reports that it is a sharp, shooting pain that shoots up from her foot to her knee every 10 minutes or so. She has been taking Tylenol, which has not been helping, and the pain is getting worse. She also endorses pain in the RLE, but notes it is not as bad. She reports she is not producing any urine. She denies smoking/tobacco use. Vital stable at time of admission. ED Course: IVF, heparin 2000 units IV once ROS: Patient endorses severe intermittent LLE pain, moderate intermittent RLE pain. Patient denies fever, chills, night sweats, cough, CP, SOB, abdominal pain, N/V, saddle anesthesia, or numbness and tingling in the LEs. Spoke briefly on the phone with the patient's (Augustine), updated him regarding dialysis, and let him know that Delfina would be admitted. Allergies Allergy/AdvReac Type Severity Reaction Status Date / Time dulaglutide [From [facility]] Allergy Intermediate Hives Verified 02/09/23 07:26 atorvastatin AdvReac Intermediate Statin Verified 02/09/23 07:26 Cardiomyopathy erythromycin base AdvReac Intermediate Vomiting Verified 02/09/23 07:26 Home Medications Medication Instructions Recorded Confirmed Type blood-glucose sensor (Dexcom G6 #3 ea 06/24/21 10/22/22 Rx Sensor device) blood-glucose transmitter (Dexcom #1 ea 06/24/21 10/22/22 Rx G6 Transmitter device) blood-glucose meter (OneTouch #1 ea 11/25/21 10/22/22 Rx Ultra2 Meter kit) lancets (OneTouch UltraSoft #200 ea 11/25/21 10/22/22 Rx Lancets) BD Ultra-Fine Gwen Pen Needle 32 #500 ea 08/10/22 10/22/22 Rx gauge x 5/32" (pen needle, diabetic) blood sugar diagnostic (OneTouch #200 ea 08/10/22 10/22/22 Rx Ultra Test strips) pantoprazole 40 mg tablet,delayed 40 mg PO QAM 09/16/22 02/12/23 History release sevelamer carbonate 800 mg tablet 800 mg PO TID #270 tabs 10/20/22 02/12/23 Rx insulin aspart U-100 100 unit/mL 5 unit (0.05 mL) SC TIDM #15 mL 10/22/22 02/12/23 Rx (3 mL) subcutaneous pen (Novolog FlexPen U-100 Insulin aspart) insulin glargine 100 unit/mL 25 unit (0.25 mL) subcut HS #10 mL 10/22/22 02/12/23 Rx subcutaneous solution (Lantus U-100 Insulin) loperamide 2 mg capsule 2 mg PO Q4H PRN loose stool 10/24/22 02/12/23 History vitamin B complex and vitamin C 0 cap PO QAM 10/24/22 02/12/23 History no.20-folic acid 1 mg capsule (Renal Caps) bumetanide 2 mg tablet 1 mg PO BID 12/02/22 02/12/23 History cinacalcet 30 mg tablet 30 mg PO 3XWK 12/02/22 02/12/23 History clopidogrel 75 mg tablet (Plavix) 75 mg PO HS 02/03/23 02/12/23 History gabapentin 100 mg capsule 100 mg PO BID 02/03/23 02/12/23 History trazodone 50 mg tablet 25 mg PO HS 02/03/23 02/12/23 History midodrine 5 mg tablet 10 mg (2 x 5 mg) PO 3XWK #90 tabs 02/10/23 02/12/23 Rx acetaminophen 325 mg tablet 650 mg PO Q6H PRN FEVER >100 02/12/23 02/12/23 History (Tylenol) acetaminophen 325 mg tablet 650 mg PO Q6H PRN PAIN 1-10 02/12/23 02/12/23 History (Tylenol) bacitracin 500 unit/gram topical 1 applic topical DAILY 02/12/23 02/12/23 History ointment cholecalciferol (vitamin D3) 125 125 mcg PO HS 02/12/23 02/12/23 History mcg (5,000 unit) capsule Past Med/Surg History Medical History Traumatic ulcer of left lower leg Osteopenia ESRD (end stage renal disease) Nocturnal hypoxemia Hx of Lyme disease GERD (gastroesophageal reflux disease) Vitamin D deficiency Diabetic nephropathy associated with type 2 diabetes mellitus Subclinical hypothyroidism TSH 5.180 in 01/2021 Dyslipidemia Diabetes type 2, uncontrolled Background diabetic retinopathy associated with type 2 diabetes mellitus Primary hyperparathyroidism CAD (coronary artery disease) Non obstructive (August 2009) per cardio records Morbid obesity Vocal cord paralysis syndrome Anemia History of CVA (cerebrovascular accident) (2016) Mitral regurgitation Hypertension Surgical History [place] teeth removed History of cataract surgery RT/LEFT History of vascular access device 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 (USING FOR DIALYSIS) Status post laparoscopic cholecystectomy (10/07/19) Difficult airway for intubation PT STATES HAS HAD VOCAL CORD PARAYSIS IN PAST Fiberoptic intubation used with 10/2019 lap odalis Hx of colonoscopy Hx of tubal ligation Hx of tonsillectomy Hx of eye surgery EYE MUSCLE REPAIR S/P cardiac catheterization OVER 10 YEARS AGO/NO STENTS Family History Father Family history of diabetes mellitus Aunt Family history of diabetes mellitus Uncle Family history of diabetes mellitus Brother Family history of diabetes mellitus Brother Family history of diabetes mellitus Grandmother (Maternal) Family hx of colon cancer Other Alzheimer disease Coronary heart disease No family history of adverse response to anesthesia Social History Smoking Status: Never smoker Tobacco Type: Cigarettes Second Hand Exposure: No; Do You Dip or Chew Tobacco: No; Hx Alcohol Use: No Hx Substance Use: No Preferred Language: Estonian Communication Ability: Effective Visual Impairment: Limited Hearing Ability: Normal Finishing Technician Required: No Beliefs That Will Affect Care: None marital status: Current Living Situation: Detention Current Living Situation Comment: [facility] Feels Safe at Home: Yes Diet: low salt and vegetarian caffeine: Yes Seatbelt Use: always Assistive Devices: Walker Review of Systems 2 Review of Systems: See HPI above Physical Exam 2 Physical Exam: General: Patient is crying and in acute distress due to LLE pain; non-toxic appearing; cooperative HEENT: normocephalic, atraumatic; no scleral icterus; dry mucous membrane; vision and hearing intact Neck: supple; no lymphadenopathy; trachea midline Skin: warm, dry without signs of tenting; no cyanosis; no rashes CV: chest wall NTP; RRR; S1/S2 normal Lungs: no acute respiratory distress; symmetrical chest wall expansion; clear breath sounds across all lung asencio w/o adventitious sounds; no wheezing ABD: Soft, NTP; BS present; no rebound/guarding; no ascites RLE: Ischemic hallux; calf erythematous; warm to touch; edematous RLE; pain to palpation; unable to obtain DP, PT pulses manually; able to obtain monophasic flow in the DP, PT using a Doppler LLE: Nonerythematous; edematous; pain to palpation (See photo below); DP, PT pulses intact to Doppler MSK: no tics or fasciculations; patient demonstrates weak plantar/dorsiflexion at the ankles; patient exhibits the ability to wiggle toes Neuro: A&Ox3; sensation intact in the LEs b/l assessed at the feet, calves, and knees Results & Data Results & Data Vital Signs (Past 12 Hours) Vital Signs Temp Pulse Pulse Resp BP BP Pulse Ox 02/12/23 11:31 72 02/12/23 10:51 79 16 104/62 97 02/12/23 10:17 36.7 C 81 18 101/64 97 O2 Del Method 02/12/23 11:31 02/12/23 10:51 Room Air 02/12/23 10:17 Room Air Laboratory Results Abnormal lab results 02/12/23 Range/Units 10:52 RBC 4.10 L (4.20-5.40) M/uL Hgb 11.9 L (12.0-16.0) g/dl MCHC 31.1 L (32.0-36.0) g/dL RDW Std Deviation 52.8 H (36.4-46.3) fL RDW Coeff of Braeden 15.3 H (11.5-14.5) % Neut # (Auto) 6.89 H (1.40-6.50) K/uL Mayes # (Auto) 0.88 H (0.11-0.59) K/uL Sodium 135 L (136-145) mmol/L Anion Gap 14 H (3-11) BUN 56 H (6-23) mg/dl Creatinine 6.99 H* (0.6-1.2) mg/dl BUN/Creatinine Ratio 8.0 L (10-20) Glucose 316 H* (70-99(Fasting)) mg/dl Magnesium 2.5 H (1.7-2.4) mg/dl ALT 3 L (7-52) U/L Alkaline Phosphatase 128 H (34-104) U/L Albumin 3.2 L (3.4-5.0) gm/dl Globulin 4.6 H (2.5-4.0) gm/dl Albumin/Globulin Ratio 0.7 L (0.9-2) Diagnostic Findings Chest X-Ray 02/12/23 11:28 XR chest 1V portable CLINICAL HISTORY: missed diaylsis TECHNIQUE: Single frontal radiograph of the chest was obtained. Comparison: Comparison is made to chest radiograph 02/03/2023 FINDINGS: Stable right venous catheter. Calcified aortic knob is seen. The lungs are clear. No evidence of pleural effusion or pneumothorax. IMPRESSION: No acute chest disease. ACT 112: Negative or not required by law. Electronically signed by: Angel Thompson M.D. 02/12/2023 11:46 AM Code Status & VTE Plan Code Status Full code VTE Prophylaxis Plan VTE Prophylaxis will be ordered: Yes Supervising Physician Co-Signing Physician Notes Patient seen and examined, chart reviewed, case discussed with ROHAN Henderson and I agree with the assessment and plan as above except as otherwise noted Labs and images reviewed Azucena is a six 7-year-old female with a past medical history of stress-induced cardiomyopathy, GERD, type 2 diabetes, ESRD, CVA, PAD who presented for dialysis. She [facility] but had difficulty with the flow rate from her [facility] and was recommended to proceed to the emergency department. She is not fluid overloaded on admission and has a normal potassium. She was brought to hemodialysis and is successfully undergoing dialysis at time of assessment. She is hyperglycemic, insulin has been ordered. She reports she has had severe left lower extremity pain and slightly less severe right lower extremity pain which has been constant and unchanged, but which is still very painful for her. She reports she has followed with vascular surgery but does not know if anything is to be done in the future. At bedside evaluation she has monophasic flow to both DP/PT at the bedside on the left, and normal DP/PT to Doppler on the right. She has an ischemic left hallux. She is an overlying wound with erythema, no active warmth/tenderness. Today and is predominantly in the midfoot. She has no leukocytosis or fever. Suspect chronic ischemic pain without superimposed cellulitis at time of admission. Vascular was consulted for management and assistance with Jana, updated on status of PAD. Agree with management of type 2 diabetes with basal bolus as above. Patient is tolerating dialysis at time of assessment, nephro following. Agree with assessment and management as above PG Care Time/CCT Total # of Minutes Spent Total Time Spent with Patient: Total time spent is greater than 50% in coordination of care (as documented) at patient's floor/unit and/or counseling patient: Coding [place] [address] INT INP/OBS CARE 3/75MIN Patient Type Established Medical Decision Making High Complexity Diagnoses ESRD (end stage renal disease) N18.6 Peripheral arterial disease I73.9 Uncontrolled type 2 diabetes mellitus with hyperglycemia E11.65 Glycemic state: with hyperglycemia Hypotension I95.9 Cardiomyopathy I42.9 Venous stasis ulcer of both lower extremities without varicose veins I87.2; L97.919; L97.929 Morbid obesity E66.01 Dyslipidemia E78.5 CAD (coronary artery disease) I25.10 (3) Diabetes type 2, uncontrolled Glycemic state: with hyperglycemia Qualified Code(s): E11.65 - Type 2 diabetes mellitus with hyperglycemia
[2023-02-12] MEDS ORDERED: INSULIN ASPART PER UNIT CHARGE SC STA (12:52)
[2023-02-12] MEDS ORDERED: HYDROmorphone INJ 0.5 MG/0.5 ML SYR IV STA ×2 (13:32→19:30)
--- NOTE | 2023-02-12 14:22 | Nephrology Consultation ---
Date of Consultation February 12, 2023 Assessment & Plan (1) ESRD (end stage renal disease): * Patient was taken to HD and IJ TCC checked. Catheter was able to be run A-->A at Qb 200 cc/min * Will provide Midodrine for BP support * HD today according to outpatient orders * Will consult Vascular Surgery to assess IJ TCC on Wednesday (possible catheter change) (2) Hypotension: * Will provide Midodrine prior to HD to maintain BP (3) Peripheral arterial disease: * No large vessel stenosis by 02/09/23 angiography * Will ask Vascular Surgery to reassess. Question whether Pentoxifylline would be beneficial (4) Diabetes type 2, uncontrolled: History of Present Illness Reason for Consultation: ESKD on IHD History of Present Illness Mrs. Reyna is a 67 year old white female who is seen at the request of Dr. Armenta to provide inpatient HD and assist w/ medical management. Information for the HPI is obtained from direct patient interview and review of EMR. HPI is summarized as follows: Mrs. Reyna has ESKD due to diabetic nephropathy. Her primary Jet Dyeing Machine Operator is Dr. Garcia. Mrs. Reyna is on IHD MWF at [facility] (3.5 hr, Revaclear 300 dialyzer, Na140/2K 2Ca/HCO3 32, EDW 88.5kg, R IJ TCC). Her medical history is significant for AODM, HTN, ASCVD. Mrs. Reyna has recently suffered a progressive decline in functional status. She is now a resident at [facility]. Her last [facility] hospitalization was 02/03/23-02/10/23 for evaluation of hypotension, bilateral LE ischemia and refractory hyperkalemia w/ volume overload. Midodrine was provided for BP support. Electrolyte imbalance and hypervolemia were corrected with aggressive inpatient HD. 02/09/23 LE angiogram was negative for critical stenosis. Mrs. Reyna presented to dialysis at [facility] this morning and was hypotensive w/ SBP in the low 80's. IJ TCC could only be run reversed at 150 cc/hr. Mrs. Reyna was transferred back to [facility] for reevaluation Allergies Allergy/AdvReac Type Severity Reaction Status Date / Time dulaglutide [From [facility]] Allergy Intermediate Hives Verified 02/09/23 07:26 atorvastatin AdvReac Intermediate Statin Verified 02/09/23 07:26 Cardiomyopathy erythromycin base AdvReac Intermediate Vomiting Verified 02/09/23 07:26 Home Medications Medication Instructions Recorded Confirmed Type blood-glucose sensor (Dexcom G6 #3 ea 06/24/21 10/22/22 Rx Sensor device) blood-glucose transmitter (Dexcom #1 ea 06/24/21 10/22/22 Rx G6 Transmitter device) blood-glucose meter (OneTouch #1 ea 11/25/21 10/22/22 Rx Ultra2 Meter kit) lancets (OneTouch UltraSoft #200 ea 11/25/21 10/22/22 Rx Lancets) BD Ultra-Fine Gwen Pen Needle 32 #500 ea 08/10/22 10/22/22 Rx gauge x 5/32" (pen needle, diabetic) blood sugar diagnostic (OneTouch #200 ea 08/10/22 10/22/22 Rx Ultra Test strips) pantoprazole 40 mg tablet,delayed 40 mg PO QAM 09/16/22 02/12/23 History release sevelamer carbonate 800 mg tablet 800 mg PO TID #270 tabs 10/20/22 02/12/23 Rx insulin aspart U-100 100 unit/mL 5 unit (0.05 mL) SC TIDM #15 mL 10/22/22 02/12/23 Rx (3 mL) subcutaneous pen (Novolog FlexPen U-100 Insulin aspart) insulin glargine 100 unit/mL 25 unit (0.25 mL) subcut HS #10 mL 10/22/22 02/12/23 Rx subcutaneous solution (Lantus U-100 Insulin) loperamide 2 mg capsule 2 mg PO Q4H PRN loose stool 10/24/22 02/12/23 History vitamin B complex and vitamin C 0 cap PO QAM 10/24/22 02/12/23 History no.20-folic acid 1 mg capsule (Renal Caps) bumetanide 2 mg tablet 1 mg PO BID 12/02/22 02/12/23 History cinacalcet 30 mg tablet 30 mg PO 3XWK 12/02/22 02/12/23 History clopidogrel 75 mg tablet (Plavix) 75 mg PO HS 02/03/23 02/12/23 History gabapentin 100 mg capsule 100 mg PO BID 02/03/23 02/12/23 History trazodone 50 mg tablet 25 mg PO HS 02/03/23 02/12/23 History midodrine 5 mg tablet 10 mg (2 x 5 mg) PO 3XWK #90 tabs 02/10/23 02/12/23 Rx acetaminophen 325 mg tablet 650 mg PO Q6H PRN FEVER >100 02/12/23 02/12/23 History (Tylenol) acetaminophen 325 mg tablet 650 mg PO Q6H PRN PAIN 1-10 02/12/23 02/12/23 History (Tylenol) bacitracin 500 unit/gram topical 1 applic topical DAILY 02/12/23 02/12/23 History ointment cholecalciferol (vitamin D3) 125 125 mcg PO HS 02/12/23 02/12/23 History mcg (5,000 unit) capsule Patient History Medical History Traumatic ulcer of left lower leg Osteopenia ESRD (end stage renal disease) Nocturnal hypoxemia Hx of Lyme disease GERD (gastroesophageal reflux disease) Vitamin D deficiency Diabetic nephropathy associated with type 2 diabetes mellitus Subclinical hypothyroidism TSH 5.180 in 01/2021 Dyslipidemia Diabetes type 2, uncontrolled Background diabetic retinopathy associated with type 2 diabetes mellitus Primary hyperparathyroidism CAD (coronary artery disease) Non obstructive (August 2009) per cardio records Morbid obesity Vocal cord paralysis syndrome Anemia History of CVA (cerebrovascular accident) (2016) Mitral regurgitation Hypertension Surgical History [place] teeth removed History of cataract surgery RT/LEFT History of vascular access device 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 (USING FOR DIALYSIS) Status post laparoscopic cholecystectomy (10/07/19) Difficult airway for intubation PT STATES HAS HAD VOCAL CORD PARAYSIS IN PAST Fiberoptic intubation used with 10/2019 lap odalis Hx of colonoscopy Hx of tubal ligation Hx of tonsillectomy Hx of eye surgery EYE MUSCLE REPAIR S/P cardiac catheterization OVER 10 YEARS AGO/NO STENTS Family History Father Family history of diabetes mellitus Aunt Family history of diabetes mellitus Uncle Family history of diabetes mellitus Brother Family history of diabetes mellitus Brother Family history of diabetes mellitus Grandmother (Maternal) Family hx of colon cancer Other Alzheimer disease Coronary heart disease No family history of adverse response to anesthesia Social History Smoking Status: Never smoker Tobacco Type: Cigarettes Second Hand Exposure: No; Do You Dip or Chew Tobacco: No; Hx Alcohol Use: No Hx Substance Use: No Preferred Language: P[place]in[place] Communication Ability: Effective Visual Impairment: Limited Hearing Ability: Normal Osteopathy Doctor Required: No Beliefs That Will Affect Care: None marital status: Current Living Situation: [facility] Current Living Situation Comment: [facility] Feels Safe at Home: Yes Diet: low salt and vegetarian caffeine: Yes Seatbelt Use: always Assistive Devices: Walker Review of Systems Constitutional: no fever Eyes: no worsening vision Ear, Nose, Mouth, Throat: no problem reported Respiratory: no cough and no dyspnea Cardiovascular: no chest pain Gastrointestinal: no abdominal pain, no nausea, no vomiting and no diarrhea/loose stools Integumentary: no rash Physical Exam Constitutional: + ill appearing; not in distress Eyes: PERRL, conjunctivae normal, anicteric sclerae ENMT: external ear and nose normal, oropharynx normal Neck: trachea midline, no thyromegaly R IJ TCC with clean, dry dressing Respiratory: normal respiratory effort, lungs clear to auscultation Cardiovascular: Rate/Rhythm: regular rate and regular rhythm Heart Sounds: no cardiac rub Gastrointestinal (Abdomen): normal bowel sounds, soft, nontender, no hepatosplenomegaly Musculoskeletal: Extremities: + lower leg abnormality (toes of both feet appear dusky, pretibial skin is hyperemic, tender ) Neurologic: Speech / Cognition: normal speech and normal cognition Results & Data Vital Signs (Past 12 Hours) Vital Signs Temp Pulse Pulse Resp BP BP Pulse Ox 02/12/23 11:31 72 02/12/23 10:51 79 16 104/62 97 02/12/23 10:17 36.7 C 81 18 101/64 97 O2 Del Method 02/12/23 11:31 02/12/23 10:51 Room Air 02/12/23 10:17 Room Air Laboratory Results Laboratory Results WBC 9.53 K/ul (4.8-10.8) 02/12/23 10:52 RBC 4.10 M/uL (4.20-5.40) L 02/12/23 10:52 Hgb 11.9 g/dl (12.0-16.0) L 02/12/23 10:52 Hct 38.3 % (37.0-47.0) 02/12/23 10:52 MCV 93.4 fL (80.0-100.0) 02/12/23 10:52 MCH 29.0 pg (25.0-34.0) 02/12/23 10:52 MCHC 31.1 g/dL (32.0-36.0) L 02/12/23 10:52 RDW Std Deviation 52.8 fL (36.4-46.3) H 02/12/23 10:52 RDW Coeff of Braeden 15.3 % (11.5-14.5) H 02/12/23 10:52 Plt Count 259 K/uL (130-400) 02/12/23 10:52 MPV 10.7 fL (9.4-12.4) 02/12/23 10:52 Immature Gran % (Auto) 0.7 % 02/12/23 10:52 Neut % (Auto) 72.4 % 02/12/23 10:52 Lymph % (Auto) 14.3 % 02/12/23 10:52 [place] % (Auto) 9.2 % 02/12/23 10:52 Eos % (Auto) 2.4 % 02/12/23 10:52 Baso % (Auto) 1.0 % 02/12/23 10:52 Neut # (Auto) 6.89 K/uL (1.40-6.50) H 02/12/23 10:52 Lymph # (Auto) 1.36 K/uL (1.20-3.40) 02/12/23 10:52 [place] # (Auto) 0.88 K/uL (0.11-0.59) H 02/12/23 10:52 Eos # (Auto) 0.23 K/uL (0.00-0.50) 02/12/23 10:52 Baso # (Auto) 0.10 K/uL (0.00-0.20) 02/12/23 10:52 Immature Gran # (Auto) 0.07 K/uL (0.01-0.20) 02/12/23 10:52 Sodium 135 mmol/L (136-145) L 02/12/23 10:52 Potassium 4.5 mmol/L (3.5-5.1) 02/12/23 10:52 Chloride 98 mmol/L (98-107) 02/12/23 10:52 Carbon Dioxide 23 mmol/L (21-32) 02/12/23 10:52 Anion Gap 14 (3-11) H 02/12/23 10:52 BUN 56 mg/dl (6-23) H 02/12/23 10:52 Creatinine 6.99 mg/dl (0.6-1.2) H* 02/12/23 10:52 Est Cr Clr Drug Dosing 8.9 ml/min 02/12/23 10:52 Est GFR ( Amer) 6.4 ml/min 02/12/23 10:52 Est GFR (Non-Af Amer) 5.6 ml/min 02/12/23 10:52 BUN/Creatinine Ratio 8.0 (10-20) L 02/12/23 10:52 Glucose 316 mg/dl (70-99(Fasting)) H* 02/12/23 10:52 Calcium 10.2 mg/dl (8.6-10.3) 02/12/23 10:52 Magnesium 2.5 mg/dl (1.7-2.4) H 02/12/23 10:52 Total Bilirubin 0.4 mg/dl (0.2-1.0) 02/12/23 10:52 AST 17 U/L (13-39) 02/12/23 10:52 ALT 3 U/L (7-52) L 02/12/23 10:52 Alkaline Phosphatase 128 U/L (34-104) H 02/12/23 10:52 Total Protein 7.8 gm/dl (6.0-8.3) 02/12/23 10:52 Albumin 3.2 gm/dl (3.4-5.0) L 02/12/23 10:52 Globulin 4.6 gm/dl (2.5-4.0) H 02/12/23 10:52 Albumin/Globulin Ratio 0.7 (0.9-2) L 02/12/23 10:52 SARS-CoV-2, RNA, NAAT NEGATIVE (NEGATIVE) 02/12/23 14:16 Impressions Chest X-Ray 02/12/23 11:28 XR chest 1V portable CLINICAL HISTORY: missed diaylsis TECHNIQUE: Single frontal radiograph of the chest was obtained. Comparison: Comparison is made to chest radiograph 02/03/2023 FINDINGS: Stable right venous catheter. Calcified aortic knob is seen. The lungs are clear. No evidence of pleural effusion or pneumothorax. IMPRESSION: No acute chest disease. ACT 112: Negative or not required by law. Electronically signed by: Angel Thompson M.D. 02/12/2023 11:46 AM PG Care Time/CCT Total # of Minutes Spent Total Time Spent with Patient: Total time spent is greater than 50% in coordination of care (as documented) at patient's floor/unit and/or counseling patient: Coding Level of Care Code 00076 IN/OBS CONSULT LVL 5,80M Diagnoses ESRD (end stage renal disease) N18.6 Hypotension I95.9 Peripheral arterial disease I73.9 Uncontrolled type 2 diabetes mellitus with hyperglycemia E11.65 Glycemic state: with hyperglycemia (4) Diabetes type 2, uncontrolled Glycemic state: with hyperglycemia Qualified Code(s): E11.65 - Type 2 diabetes mellitus with hyperglycemia
[2023-02-12] MEDS ORDERED: GLUCOSE 10 TAB/TUBE PO PRN (16:45)
[2023-02-12] MEDS ORDERED: ACETAMINOPHEN 325 MG TAB PO PRN (16:45)
[2023-02-12] MEDS ORDERED: PHARMACY GLYCEMIC MGMT CONSULT PRN (16:45)
[2023-02-12] MEDS ORDERED: GLUCAGON FOR INJ 1 MG VIAL SQ PRN (16:45)
[2023-02-12] MEDS ORDERED: GLUCOSE 40% GEL 15 GM TUBE PO PRN (16:45)
[2023-02-12] MEDS ORDERED: LOPERAMIDE HCL 2 MG CAP PO PRN (16:45)
[2023-02-12] MEDS ORDERED: DEXTROSE 50% 50 ML SYRINGE IV PRN (16:45)
[2023-02-12] MEDS ORDERED: CARBOHYDRATES FOR HYPOGLYCEMIA PO PRN (16:45)
[2023-02-12] MEDS: HYDROmorphone INJ 1 MG/ML SYRINGE IV PRN (17:16)
[2023-02-12] MEDS: INSULIN ASPART PER UNIT CHARGE SC SCH ×2 (17:59→21:00)
[2023-02-12] MEDS: SEVELAMER HCL 800 MG TABLET PO SCH (18:10)
[2023-02-12] MEDS: traZODone HCL 50 MG TAB PO SCH (21:00)
[2023-02-12] MEDS: CLOPIDOGREL BISULFATE 75 MG TAB PO SCH (21:00)
[2023-02-12] MEDS: GABAPENTIN 100 MG CAP PO SCH (21:00)
[2023-02-12] MEDS: LANTUS PER UNIT CHARGE SQ SCH (21:01)
[2023-02-13] MEDS: HYDROmorphone INJ 1 MG/ML SYRINGE IV PRN ×3 (01:43→19:43)
[2023-02-13] MEDS ORDERED: LACTATED RINGER'S 500 ML IV ONE (04:51)
[2023-02-13 07:05] LABS: Estimated Average Glucose 174 mg/dl; Hemoglobin A1C 7.7 % (4.5-5.6)
[2023-02-13 07:07] LABS: Basophils # (auto) 0.09 K/uL (0.00-0.20); Eosinophils % (auto) 4.3 %; Hematocrit (blood only) 38.2 % (37.0-47.0); Hemoglobin 11.8 g/dl (12.0-16.0); Immature Granulocytes # (auto) 0.05 K/uL (0.01-0.20); Immature Granulocytes % (auto) 0.5 %; Lymphocytes # (auto) 1.51 K/uL (1.20-3.40); Lymphocytes % (auto) 16.1 %; Mean Corpuscular Hemoglobin 29.5 pg (25.0-34.0); Mean Corpuscular Hgb Conc 30.9 g/dL (32.0-36.0); Mean Corpuscular Volume 95.5 fL (80.0-100.0); Mean Platelet Volume 10.2 fL (9.4-12.4); Monocytes # (auto) 1.08 K/uL (0.11-0.59); Monocytes % (auto) 11.5 %; Neutrophils # (auto) 6.23 K/uL (1.40-6.50); Neutrophils % (auto) 66.6 %; Platelet Count 257 K/uL (130-400); RDW Coefficient of Variation 15.3 % (11.5-14.5); RDW Standard Deviation 53.2 fL (36.4-46.3); White Blood Count 9.36 K/ul (4.8-10.8)
[2023-02-13 07:39] LABS: BUN Creatinine Ratio 7.1 (10-20); Calcium 10.3 mg/dl (8.6-10.3); Creatinine Clr Calc Pharmacy 11.2 ml/min; Est GFR (African American) 8.6 ml/min; Est GFR (Non-African American) 7.4 ml/min; Magnesium 2.4 mg/dl (1.7-2.4); Potassium 3.7 mmol/L (3.5-5.1)
[2023-02-13 07:44] LABS: Prothrombin Time 10.9 Seconds (9.0-12.0)
[2023-02-13] MEDS: HYDROmorphone INJ 0.5 MG/0.5 ML SYR IV PRN (08:32)
[2023-02-13] MEDS: BUMETANIDE 1 MG TAB PO SCH (08:55)
[2023-02-13] MEDS: PANTOprazole 40 MG TAB PO SCH (08:55)
[2023-02-13] MEDS: GABAPENTIN 100 MG CAP PO SCH ×2 (08:55→20:48)
[2023-02-13] MEDS: BACITRACIN OINT 14 GM TUBE TOP SCH (08:55)
[2023-02-13] MEDS: SEVELAMER HCL 800 MG TABLET PO SCH ×3 (08:55→18:03)
[2023-02-13] MEDS: INSULIN ASPART PER UNIT CHARGE SC SCH ×4 (08:59→20:48)
--- NOTE | 2023-02-13 10:25 | Nephrology Progress Note ---
Date of Service February 13, 2023 Assessment & Plan (1) ESRD (end stage renal disease): (2) Hypotension: (3) Leg swelling: (4) Fluid overload: (5) Encounter for dialysis and dialysis catheter care: (6) Failure to thrive in adult: Plan 67 year old female with ESKD due to diabetic nephropathy on IHD MWF via R IJ TCC). Has AODM, HTN, ASCVD, resident at [facility]. She was hospitalized from 02/03/23-02/10/23 for evaluation of hypotension, bilateral LE ischemia and refractory hyperkalemia w/ volume overload, received Midodrine and back to back HD. 02/09/23 LE angiogram was negative for critical stenosis. She was readmitted yesterday from [facility] with hypotension and IJ TCC malfunction. However, she was able to have HD here yesterday and TDC worked well. --continue to monitor electrolyte and volume status over the weekend and plan for HD Wednesday. Admission and Anticipated Discharge Date Admission Date: February 12, 2023 Giovanni Mathis was seen and evaluated this morning. She was resting comfortably, denied any concerns. Had HD yesterday, TDC was working fine. BP relatively low. Review of Systems Review of Systems: Detail ROS was otherwise unremarkable. Physical Exam Constitutional: WD/WN, vitals as above no acute distress Eyes: + anicteric sclerae Neck: normal visual inspection Respiratory: no respiratory distress Auscultation: lungs clear to auscultation bilaterally Cardiovascular: Rate/Rhythm: regular rate and regular rhythm Heart Sounds: normal S1 and normal S2 Extremities: + edema Musculoskeletal: b/l LE with ischemic changes Skin: + turgor decreased and + skin atrophy Neurologic: no focal motor deficits Psychiatric: Orientation: alert and oriented x 3 Results & Data Vital Signs (Past 12 Hours) Vital Signs Temp Pulse Pulse Resp BP Pulse Ox O2 Del Method 02/13/23 08:32 68 110/51 L 02/13/23 07:51 36.4 C L 86 16 98/62 L 93 Room Air 02/13/23 07:28 71 02/13/23 05:40 90/57 L 02/13/23 04:29 37 C 77 18 82/49 L 92 Room Air 02/12/23 23:43 80 02/12/23 22:48 Room Air 02/12/23 22:23 36.8 C 80 16 92/55 L 94 Room Air PG Care Time/CCT Total # of Minutes Spent Total Time Spent with Patient: Total time spent is greater than 50% in coordination of care (as documented) at patient's floor/unit and/or counseling patient: Coding Level of Care Code 92741 SUB INP/OBS CARE 2/35MIN Diagnoses ESRD (end stage renal disease) N18.6 Hypotension I95.9 Leg swelling M79.89 Fluid overload E87.70 Hypervolemia type: unspecified Encounter for dialysis and dialysis catheter care Z99.2 Failure to thrive in adult R62.7 (4) Fluid overload Hypervolemia type: unspecified Qualified Code(s): E87.70 - Fluid overload, unspecified
--- NOTE | 2023-02-13 14:09 | Pharmacy Report ---
Pharmacy Glycemic Short Note 2 - Date of Service February 13, 2023 - Glycemic Short BSG Results (Last 24 hours): 02/12/23 02/12/23 02/13/23 17:44 20:16 06:45 Glucose 107 H POC Glucose 109 H 165 H 02/13/23 02/13/23 08:15 12:12 Glucose POC Glucose 131 H 176 H OUTPATIENT ANTIDIABETIC REGIMEN: * novolog 5 units tidm, lantus 25 units HS ASSESSMENT: * 67 year admitted with LLE pain. Patient is type 2 diabetic, ESRD on HD - pharmacy consulted for glycemic management. Patient received total 25 units of insulin yesterday, of which 20 units were basal insulin. Fasting BSG 131 mg/dL - continue same parameters today PLAN FOR INPATIENT GLYCEMIC CONTROL: * Hold outpatient oral diabetes medications * Basal insulin * Lantus 20 units hs * Bolus insulin * NovoLog per scale ACHS or Q6hrs while NPO * Goal Range: Low 110 mg/dL - High 140 mg/dL * Correction Factor: 25 mg/dL/unit * Nutritional / Prandial insulin per carb ratio of 1 unit per 9 grams CHO consumed
--- NOTE | 2023-02-13 17:25 | Hospitalist Progress Note ---
Date of Service February 13, 2023 Assessment & Plan (1) ESRD (end stage renal disease): Plan: HD on // Problem with TDC port on morning of 02/12 though functioned well at hospital yesterday Electrolytes WNL with a mild anion gap at 14 On arrival, creatinine 6.99, BUN 56, and eGFR 5.6 Appreciate nephrology consult Vascular surgery was consulted for the Bates dialysis port Patient received HD inpatient, monitor electrolytes and volume status of and plan for HD Wednesday A.m. CBC, BMP, mag, PT/INR (2) Peripheral arterial disease: Plan: Intermittent BLE pain - improving as of 02/13 S/p bilateral lower extremity arteriogram, mechanical closure of right femoral artery with Dr. Luke on 02/09 BLE is erythematous, edematous, warm to touch on physical exam Ischemic hallux on left foot; monophasic flow intact Doppler at DP, PT Acetaminophen 650 mg p.o. q6h as needed for pain Dilaudid 0.25-0.50mg IV q4h as needed for breakthrough pain; caution in patient with ESRD We will defer to vascular surgery if patient needs further intervention (3) Diabetes type 2, uncontrolled: Plan: Glucose 316 on arrival, 4 units aspart given at time of admission Last A1c 10.9% on 09/17/2022, recheck 7.7% on 02/13/2023 T2DM diet/renal diet Monitor BSG ACHS, goal of 110-150mg/dL, CF 30, carb ratio 10 SSI; normally takes 25 units glargine at bedtime, will reduce to 20 units at bedtime for now Adjust regimen as necessary Pharmacy glycemic consult placed (4) Hypotension: Plan: BP 103/58 at time of admit Prior [facility] admission from 02/03-02/10 for hypertension Continue midodrine 10 mg Continue to monitor (5) Cardiomyopathy: Plan: History of Takotsubo's cardiomyopathy in 2009 Last EKG on 12/24/2022 showed an LVEF of 25 to 30%, moderate AAS, mild MR, mild TR, and elevated RVSP at 50-60mmHg (6) Venous stasis ulcer of both lower extremities without varicose veins: (7) Morbid obesity: (8) Dyslipidemia: (9) CAD (coronary artery disease): Plan Disposition: Admit to [facility] telemetry T2DM/renal diet Full code VTE PPx: Heparin bolus 2000 you IV admission, then heparin 5000u q12h starting tomorrow night Admission and Anticipated Discharge Date Admission Date: February 12, 2023 Subjective Overall reports her lower extremity pain is improving. Denies any significant chest pain, shortness of breath, lightheadedness/dizziness Review of Systems Review of Systems: Per subjective Physical Exam Physical Exam: General: Well-appearing, NAD Cardiovascular: RRR, +systolic murmur, see below Pulmonary: CTAB, no W/R/R Abdomen: Soft, NT/ND, no guarding Extremities: RLE absent sensation to light touch up to level of ankle and LLE ab sent sensation to light touch up to mid-nelson. Hyperpigmentation/erythema of BLE with dusky great toes as best imaged on pictures from 02/12 H&P Neurologic: AAOx3, see above Psychiatric: Appropriate mood/affect Results & Data Results & Data Vital Signs (Past 12 Hours) Vital Signs Temp Pulse Pulse Resp BP Pulse Ox O2 Del Method 02/13/23 15:44 36.8 C 68 18 104/62 95 Room Air 02/13/23 14:46 81 02/13/23 11:58 36.6 C 84 16 103/65 97 Room Air 02/13/23 10:32 Room Air 02/13/23 08:32 68 110/51 L 02/13/23 07:51 36.4 C L 86 16 98/62 L 93 Room Air 02/13/23 07:28 71 02/13/23 05:40 90/57 L Laboratory Results Reviewed CBC, BMP, A1c, magnesium todayhemoglobin mildly low at 11.8 w/ normocytosis, creatinine to 5.48, A1c 7.7%, and otherwise unremarkable abhijit ctrolytes PG Care Time/CCT Total # of Minutes Spent Total Time Spent with Patient: Total time spent is greater than 50% in coordination of care (as documented) at patient's floor/unit and/or counseling patient: Coding Level of Care Code 81377 SUB INP/OBS CARE 2/35MIN Diagnoses ESRD (end stage renal disease) N18.6 Peripheral arterial disease I73.9 Uncontrolled type 2 diabetes mellitus with hyperglycemia E11.65 Glycemic state: with hyperglycemia Hypotension I95.9 Cardiomyopathy I42.9 Venous stasis ulcer of both lower extremities without varicose veins I87.2; L97.919; L97.929 Morbid obesity E66.01 Dyslipidemia E78.5 CAD (coronary artery disease) I25.10 (3) Diabetes type 2, uncontrolled Glycemic state: with hyperglycemia Qualified Code(s): E11.65 - Type 2 diabetes mellitus with hyperglycemia
[2023-02-13] MEDS: HEPARIN SOD 5,000 UNIT/0.5 ML VIAL SQ SCH (20:48)
[2023-02-13] MEDS: LANTUS PER UNIT CHARGE SQ SCH (20:48)
[2023-02-13] MEDS: CLOPIDOGREL BISULFATE 75 MG TAB PO SCH (20:48)
[2023-02-13] MEDS: traZODone HCL 50 MG TAB PO SCH (20:49)
[2023-02-13] MEDS ORDERED: NALOXONE HCL 0.4 MG/1 ML VIAL/CARP IV STA (21:05)
[2023-02-13] MEDS ORDERED: NALOXONE HCL 0.4 MG/1 ML VIAL/CARP ONE (21:07)
[2023-02-13] MEDS ORDERED: ACETAMINOPHEN 1,000 MG/100 ML VIAL IV STA (22:22)
[2023-02-13] MEDS: POLYETHYLENE (MIRALAX) 17 GM PACK PO PRN (22:44)
[2023-02-13] MEDS: DICLOFENAC SOD 1% GEL 100 GM TUBE EXT SCH (22:44)
[2023-02-14 06:13] LABS: Basophils # (auto) 0.07 K/uL (0.00-0.20); Basophils % (auto) 0.8 %; Eosinophils # (auto) 0.25 K/uL (0.00-0.50); Eosinophils % (auto) 2.7 %; Hematocrit (blood only) 33.6 % (37.0-47.0); Hemoglobin 10.2 g/dl (12.0-16.0); Immature Granulocytes # (auto) 0.04 K/uL (0.01-0.20); Immature Granulocytes % (auto) 0.4 %; Lymphocytes # (auto) 1.85 K/uL (1.20-3.40); Lymphocytes % (auto) 20.1 %; Mean Corpuscular Hemoglobin 29.1 pg (25.0-34.0); Mean Corpuscular Hgb Conc 30.4 g/dL (32.0-36.0); Mean Platelet Volume 10.3 fL (9.4-12.4); Monocytes # (auto) 1.12 K/uL (0.11-0.59); Monocytes % (auto) 12.2 %; Neutrophils # (auto) 5.88 K/uL (1.40-6.50); Neutrophils % (auto) 63.8 %; Platelet Count 253 K/uL (130-400); RDW Coefficient of Variation 15.5 % (11.5-14.5); RDW Standard Deviation 53.7 fL (36.4-46.3); White Blood Count 9.21 K/ul (4.8-10.8)
[2023-02-14 06:34] LABS: BUN Creatinine Ratio 7.9 (10-20); Calcium 10.3 mg/dl (8.6-10.3); Creatinine Clr Calc Pharmacy 9.1 ml/min; Est GFR (African American) 6.7 ml/min; Est GFR (Non-African American) 5.8 ml/min
[2023-02-14] MEDS: HYDROmorphone INJ 0.5 MG/0.5 ML SYR IV PRN ×3 (07:37→17:55)
[2023-02-14] MEDS: BUMETANIDE 1 MG TAB PO SCH (09:15)
[2023-02-14] MEDS: GABAPENTIN 100 MG CAP PO SCH ×2 (09:15→20:19)
[2023-02-14] MEDS: BACITRACIN OINT 14 GM TUBE TOP SCH (09:16)
[2023-02-14] MEDS: HEPARIN SOD 5,000 UNIT/0.5 ML VIAL SQ SCH ×2 (09:16→20:20)
[2023-02-14] MEDS: SEVELAMER HCL 800 MG TABLET PO SCH ×3 (09:16→17:13)
[2023-02-14] MEDS: PANTOprazole 40 MG TAB PO SCH (09:16)
[2023-02-14] MEDS: DICLOFENAC SOD 1% GEL 100 GM TUBE EXT SCH ×2 (09:17→20:19)
[2023-02-14] MEDS: INSULIN ASPART PER UNIT CHARGE SC SCH ×5 (09:17→20:18)
--- NOTE | 2023-02-14 10:57 | Nephrology Progress Note ---
Date of Service February 14, 2023 Assessment & Plan (1) ESRD (end stage renal disease): (2) Hypotension: (3) Leg swelling: (4) Fluid overload: (5) Encounter for dialysis and dialysis catheter care: (6) Failure to thrive in adult: Plan 67 year old female with ESKD due to diabetic nephropathy on IHD MWF via R IJ TCC. Has AODM, HTN, ASCVD, resident at [facility].She was hospitalized from 02/03/23-02/10/23 for evaluation of hypotension, bilateral LE ischemia and refractory hyperkalemia w/ volume overload, received Midodrine and back to back HD. 02/09/23 LE angiogram was negative for critical stenosis. She was readmitted on 02/12/23 from [facility] with hypotension and IJ TCC malfunction. Had HD Wednesday and TDC worked well. --continue to monitor electrolyte and volume status and plan for HD Wednesday. --CATHIE 4000 units with HD 02/15/23 --continue Cinacalcet and Renvela tidm, start nephro caps daily Admission and Anticipated Discharge Date Admission Date: February 12, 2023 Giovanni Mathis was seen and evaluated this morning. She was sitting up in chair, resting comfortably, denied any concerns except ongoing b/l leg pain. Had HD Wednesday, TDC was working fine. BP relatively low. Review of Systems Review of Systems: Detail ROS was otherwise unremarkable. Physical Exam Constitutional: WD/WN, vitals as above no acute distress Eyes: + anicteric sclerae Neck: normal visual inspection Respiratory: no respiratory distress Auscultation: + diminished lung sounds; no crackles and no wheezes Cardiovascular: Rate/Rhythm: regular rate and regular rhythm Heart Sounds: normal S1 and normal S2 Extremities: + edema Skin: + turgor decreased and + skin atrophy Neurologic: no focal motor deficits Psychiatric: Orientation: alert and oriented x 3 Results & Data Vital Signs (Past 12 Hours) Vital Signs Temp Pulse Pulse Resp BP Pulse Ox O2 Del Method 02/14/23 08:11 Room Air 02/14/23 07:16 36.5 C 74 16 104/66 100 Room Air 02/14/23 07:13 77 02/14/23 03:27 36.6 C 78 18 102/63 93 Room Air 02/13/23 23:37 79 02/13/23 23:15 36.7 C 73 16 93/59 L 92 Room Air PG Care Time/CCT Total # of Minutes Spent Total Time Spent with Patient: Total time spent is greater than 50% in coordination of care (as documented) at patient's floor/unit and/or counseling patient: Coding Level of Care Code 48680 SUB INP/OBS CARE 2/35MIN Diagnoses ESRD (end stage renal disease) N18.6 Hypotension I95.9 Leg swelling M79.89 Fluid overload E87.70 Hypervolemia type: unspecified Encounter for dialysis and dialysis catheter care Z99.2 Failure to thrive in adult R62.7 (4) Fluid overload Hypervolemia type: unspecified Qualified Code(s): E87.70 - Fluid overload, unspecified
[2023-02-14] MEDS: NEPHROCAPS PO SCH (12:39)
[2023-02-14] MEDS: POLYETHYLENE (MIRALAX) 17 GM PACK PO PRN (12:55)
--- NOTE | 2023-02-14 16:45 | Hospitalist Progress Note ---
Date of Service February 14, 2023 Assessment & Plan (1) ESRD (end stage renal disease): Plan: HD on // Problem with TDC port on morning of 02/12 though functioned well at hospital yesterday Electrolytes WNL with a mild anion gap at 14 On arrival, creatinine 6.99, BUN 56, and eGFR 5.6 Appreciate nephrology consult Vascular surgery was consulted for the Bates dialysis port and BLEs Patient received HD inpatient, monitor electrolytes and volume status of weekend and plan for HD Wednesday A.m. CBC, BMP, mag, PT/INR (2) Peripheral arterial disease: Plan: Intermittent BLE pain - improving as of 02/13 S/p bilateral lower extremity arteriogram, mechanical closure of right femoral artery with Dr. Luke on 02/09 BLE is erythematous, edematous Ischemic hallux on left foot; monophasic flow intact Doppler at DP, PT Changed Acetaminophen to 1000mg TID scheduled Canceled Dilaudid 0.5mg dosing given oversedation overnight 02/13-02/14 with this dose requiring Narcan Dilaudid 0.25 IV q4h as needed for breakthrough pain; caution in patient with ESRD We will defer to vascular surgery if patient needs further intervention (3) Constipation: Plan: Patient reports no BM x3 weeks but nursing reports multiple small volume BM overnight - suspect some patient confusion Continue with current Miralax (4) Diabetes type 2, uncontrolled: Plan: Glucose 316 on arrival, 4 units aspart given at time of admission Last A1c 10.9% on 09/17/2022, recheck 7.7% on 02/13/2023 T2DM diet/renal diet Monitor BSG ACHS, goal of 110-150mg/dL, CF 30, carb ratio 10 SSI; normally takes 25 units glargine at bedtime, will reduce to 20 units at bedtime for now Adjust regimen as necessary Pharmacy glycemic consult placed (5) Hypotension: Plan: BP 103/58 at time of admit Prior [facility] admission from 02/03-02/10 for hypertension Continue midodrine 10 mg Continue to monitor (6) Cardiomyopathy: Plan: History of Takotsubo's cardiomyopathy in 2009 Last EKG on 12/24/2022 showed an LVEF of 25 to 30%, moderate AAS, mild MR, mild TR, and elevated RVSP at 50-60mmHg (7) Venous stasis ulcer of both lower extremities without varicose veins: (8) Morbid obesity: (9) Dyslipidemia: (10) CAD (coronary artery disease): Plan Disposition: Admit to [facility] telemetry T2DM/renal diet Full code VTE PPx: Heparin bolus 2000 you IV admission, then heparin 5000u q12h starting tomorrow night Admission and Anticipated Discharge Date Admission Date: February 12, 2023 Subjective Overnight required 1 dose of Narcan due to oversedation after Dilaudid 0.5 mg IV administered. Patient reports during this timeframe she felt that she was interactive and knew the questions that was being asked of her and felt that the Narcan was not necessary. She continues to have intermittent pain in her bila teral lower extremities. She endorses constipation as wellstates she has not had a bowel movement for 3 weeks, but per nursing she had multiple bowel movements after a dose of MiraLAX yesterday Review of Systems Review of Systems: Per subjective Physical Exam Physical Exam: General: Well-appearing, NAD Cardiovascular: RRR, +systolic murmur, see below Pulmonary: CTAB, no W/R/R Abdomen: Soft, NT/ND, no guarding Extremities: RLE decreased distal SILT, hyperpigmentation/erythema of BLE with dusky great toes as best imaged on pictures from 02/12 H&P Neurologic: AAOx3, see above Psychiatric: Appropriate mood/affect Results & Data Results & Data Vital Signs (Past 12 Hours) Vital Signs Temp Pulse Pulse Resp BP Pulse Ox O2 Del Method 02/14/23 15:42 77 02/14/23 15:00 37.1 C 77 17 108/70 95 Room Air 02/14/23 11:13 36.4 C L 72 17 100/62 100 Room Air 02/14/23 08:11 Room Air 02/14/23 07:16 36.5 C 74 16 104/66 100 Room Air 02/14/23 07:13 77 Laboratory Results Reviewed CBChemoglobin 10.2, reviewed BMPcreatinine 6.73 with otherwise stable electrolytes PG Care Time/CCT Total # of Minutes Spent Total Time Spent with Patient: Total time spent is greater than 50% in coordination of care (as documented) at patient's floor/unit and/or counseling patient: Coding Level of Care Code 23139 SUB INP/OBS CARE 3/50MIN Diagnoses ESRD (end stage renal disease) N18.6 Peripheral arterial disease I73.9 Constipation K59.00 Uncontrolled type 2 diabetes mellitus with hyperglycemia E11.65 Glycemic state: with hyperglycemia Hypotension I95.9 Cardiomyopathy I42.9 Venous stasis ulcer of both lower extremities without varicose veins I87.2; L97.919; L97.929 Morbid obesity E66.01 Dyslipidemia E78.5 CAD (coronary artery disease) I25.10 (4) Diabetes type 2, uncontrolled Glycemic state: with hyperglycemia Qualified Code(s): E11.65 - Type 2 diabetes mellitus with hyperglycemia
[2023-02-14] MEDS: ACETAMINOPHEN 500 MG TAB PO SCH ×2 (17:13→20:22)
--- NOTE | 2023-02-14 19:20 | Electrocardiogram Report ---
Test Reason : Blood Pressure : / mmHG Vent. Rate : 077 BPM Atrial Rate : 077 BPM P-R Int : 192 ms QRS Dur : 108 ms QT Int : 406 ms P-R-T Axes : 050 -11 256 degrees QTc Int : 459 ms Normal sinus rhythm Moderate voltage criteria for LVH, may be normal variant ( R in aVL , Aiden product ) Cannot rule out Anterior infarct (cited on or before 12-FEB-2023) Abnormal ECG When compared with ECG of 09-FEB-2023 09:44, No significant change was found Confirmed by Ryan Lund ([id number] on 02/14/2023 7:20:01 PM Referred By: REFERRED SELF Confirmed By:Ryan Lund
[2023-02-14] MEDS: traZODone HCL 50 MG TAB PO SCH (20:19)
[2023-02-14] MEDS: CLOPIDOGREL BISULFATE 75 MG TAB PO SCH (20:19)
[2023-02-14] MEDS ORDERED: LANTUS PER UNIT CHARGE SQ SCH (21:00)
[2023-02-15] MEDS ORDERED: SIMETHICONE 80 MG CHEW PO ONE (00:28)
[2023-02-15 06:30] LABS: Basophils # (auto) 0.09 K/uL (0.00-0.20); Eosinophils # (auto) 0.38 K/uL (0.00-0.50); Eosinophils % (auto) 4.4 %; Hematocrit (blood only) 34.8 % (37.0-47.0); Immature Granulocytes # (auto) 0.07 K/uL (0.01-0.20); Immature Granulocytes % (auto) 0.8 %; Lymphocytes # (auto) 2.14 K/uL (1.20-3.40); Lymphocytes % (auto) 24.7 %; Mean Corpuscular Hemoglobin 29.5 pg (25.0-34.0); Mean Corpuscular Hgb Conc 31.6 g/dL (32.0-36.0); Mean Corpuscular Volume 93.3 fL (80.0-100.0); Mean Platelet Volume 10.2 fL (9.4-12.4); Monocytes # (auto) 1.04 K/uL (0.11-0.59); Neutrophils # (auto) 4.94 K/uL (1.40-6.50); Neutrophils % (auto) 57.1 %; Platelet Count 261 K/uL (130-400); RDW Coefficient of Variation 15.3 % (11.5-14.5); RDW Standard Deviation 51.7 fL (36.4-46.3); Red Blood Count 3.73 M/uL (4.20-5.40); White Blood Count 8.66 K/ul (4.8-10.8)
[2023-02-15 06:56] LABS: BUN Creatinine Ratio 8.1 (10-20); Calcium 9.8 mg/dl (8.6-10.3); Creatinine Clr Calc Pharmacy 7.7 ml/min; Est GFR (African American) 5.5 ml/min; Est GFR (Non-African American) 4.7 ml/min; Magnesium 2.6 mg/dl (1.7-2.4); Phosphorus 7.2 mg/dl (2.5-4.9); Potassium 4.5 mmol/L (3.5-5.1)
[2023-02-15] MEDS: INSULIN ASPART PER UNIT CHARGE SC SCH ×4 (07:10→22:27)
[2023-02-15] MEDS ORDERED: ceFAZolin 2000MG 2,000 MG/15 ML SYR IV ONE (08:00)
[2023-02-15] MEDS: SEVELAMER HCL 800 MG TABLET PO SCH ×3 (08:23→17:58)
[2023-02-15] MEDS: ACETAMINOPHEN 500 MG TAB PO SCH ×3 (08:23→21:10)
[2023-02-15] MEDS: MIDODRINE HCL 10 MG TAB PO SCH (08:24)
[2023-02-15] MEDS: DICLOFENAC SOD 1% GEL 100 GM TUBE EXT SCH ×2 (08:24→21:13)
[2023-02-15] MEDS: GABAPENTIN 100 MG CAP PO SCH ×2 (08:24→21:13)
[2023-02-15] MEDS: CINACALCET HCL 30 MG TAB PO SCH (08:25)
[2023-02-15] MEDS: BACITRACIN OINT 14 GM TUBE TOP SCH (08:25)
[2023-02-15] MEDS: NEPHROCAPS PO SCH (08:25)
[2023-02-15] MEDS: PANTOprazole 40 MG TAB PO SCH (08:25)
[2023-02-15] MEDS: HEPARIN SOD 5,000 UNIT/0.5 ML VIAL SQ SCH ×2 (08:25→21:12)
[2023-02-15] MEDS ORDERED: Nursing to Pharmacy Communication SCH (10:00)
[2023-02-15] MEDS ORDERED: EPOETIN ALFA 4,000 UNIT/ML VIAL IV ONE (10:00)
--- NOTE | 2023-02-15 10:30 | Consultation ---
Date of Consultation February 15, 2023 Assessment & Plan (1) ESRD (end stage renal disease): Pt with malfunctioning permcath for HD access. SHe refuses to allow use of her AVF. Will perform permcath exchange in OR tomorrow. Procedure, risks, benefits, and alternatives discussed with pt by myself at Dr Luke's request. Pt expresses understanding and agreement to proceed. History of Present Illness Reason for Consultation: malfunctioning permcath Attending Physician: Ky Bolden MD History of Present Illness 67 yo f with multiple medical problems, including ESRD on HD, DMII, HTN, cardiomyopathy, CAD, PAD, venous stasis with ulcerations, hx of lyme disease, dyslipidemia, hypothyroidism, anemia, osteopenia, GERD, admitted with hypotension and malfunctioning permcath. Pt states no knowledge of this. Per staff, her permcath has not been running well for a few days. Admits chronic edema of BLE. Pt denies MEZA, fever, chest pain, SOB, abd pain, N/V, rest pain, claudication, other complaints. Does not ambulate. Allergies Allergy/AdvReac Type Severity Reaction Status Date / Time dulaglutide [From [facility]] Allergy Intermediate Hives Verified 02/09/23 07:26 atorvastatin AdvReac Intermediate Statin Verified 02/09/23 07:26 Cardiomyopathy erythromycin base AdvReac Intermediate Vomiting Verified 02/09/23 07:26 Home Medications Medication Instructions Recorded Confirmed Type blood-glucose sensor (Dexcom G6 #3 ea 06/24/21 10/22/22 Rx Sensor device) blood-glucose transmitter (Dexcom #1 ea 06/24/21 10/22/22 Rx G6 Transmitter device) blood-glucose meter (OneTouch #1 ea 11/25/21 10/22/22 Rx Ultra2 Meter kit) lancets (OneTouch UltraSoft #200 ea 11/25/21 10/22/22 Rx Lancets) BD Ultra-Fine Gwen Pen Needle 32 #500 ea 08/10/22 10/22/22 Rx gauge x 5/32" (pen needle, diabetic) blood sugar diagnostic (OneTouch #200 ea 08/10/22 10/22/22 Rx Ultra Test strips) pantoprazole 40 mg tablet,delayed 40 mg PO QAM 09/16/22 02/12/23 History release sevelamer carbonate 800 mg tablet 800 mg PO TID #270 tabs 10/20/22 02/12/23 Rx insulin aspart U-100 100 unit/mL 5 unit (0.05 mL) SC TIDM #15 mL 10/22/22 02/12/23 Rx (3 mL) subcutaneous pen (Novolog FlexPen U-100 Insulin aspart) insulin glargine 100 unit/mL 25 unit (0.25 mL) subcut HS #10 mL 10/22/22 02/12/23 Rx subcutaneous solution (Lantus U-100 Insulin) loperamide 2 mg capsule 2 mg PO Q4H PRN loose stool 10/24/22 02/12/23 History vitamin B complex and vitamin C 0 cap PO QAM 10/24/22 02/12/23 History no.20-folic acid 1 mg capsule (Renal Caps) bumetanide 2 mg tablet 1 mg PO BID 12/02/22 02/12/23 History cinacalcet 30 mg tablet 30 mg PO 3XWK 12/02/22 02/12/23 History clopidogrel 75 mg tablet (Plavix) 75 mg PO HS 02/03/23 02/12/23 History gabapentin 100 mg capsule 100 mg PO BID 02/03/23 02/12/23 History trazodone 50 mg tablet 25 mg PO HS 02/03/23 02/12/23 History midodrine 5 mg tablet 10 mg (2 x 5 mg) PO 3XWK #90 tabs 02/10/23 02/12/23 Rx acetaminophen 325 mg tablet 650 mg PO Q6H PRN FEVER >100 02/12/23 02/12/23 History (Tylenol) acetaminophen 325 mg tablet 650 mg PO Q6H PRN PAIN 1-10 02/12/23 02/12/23 Histor y (Tylenol) bacitracin 500 unit/gram topical 1 applic topical DAILY 02/12/23 02/12/23 History ointment cholecalciferol (vitamin D3) 125 125 mcg PO HS 02/12/23 02/12/23 History mcg (5,000 unit) capsule Patient History Medical History Traumatic ulcer of left lower leg Osteopenia ESRD (end stage renal disease) Nocturnal hypoxemia Hx of Lyme disease GERD (gastroesophageal reflux disease) Vitamin D deficiency Diabetic nephropathy associated with type 2 diabetes mellitus Subclinical hypothyroidism TSH 5.180 in 01/2021 Dyslipidemia Diabetes type 2, uncontrolled Background diabetic retinopathy associated with type 2 diabetes mellitus Primary hyperparathyroidism CAD (coronary artery disease) Non obstructive (August 2009) per cardio records Morbid obesity Vocal cord paralysis syndrome Anemia History of CVA (cerebrovascular accident) (2017) Mitral regurgitation Hypertension Surgical History [place] teeth removed History of cataract surgery RT/LEFT History of vascular access device 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 (USING FOR DIALYSIS) Status post laparoscopic cholecystectomy (10/07/19) Difficult airway for intubation PT STATES HAS HAD VOCAL CORD PARAYSIS IN PAST Fiberoptic intubation used with 10/2019 lap odalis Hx of colonoscopy Hx of tubal ligation Hx of tonsillectomy Hx of eye surgery EYE MUSCLE REPAIR S/P cardiac catheterization OVER 10 YEARS AGO/NO STENTS Family History Father Family history of diabetes mellitus Aunt Family history of diabetes mellitus Uncle Family history of diabetes mellitus Brother Family history of diabetes mellitus Brother Family history of diabetes mellitus Grandmother (Maternal) Family hx of colon cancer Other Alzheimer disease Coronary heart disease No family history of adverse response to anesthesia Social History Smoking Status: Never smoker Tobacco Type: Cigarettes Second Hand Exposure: No; Do You Dip or Chew Tobacco: No; Hx Alcohol Use: No Hx Substance Use: No Preferred Language: Yakut Communication Ability: Impaired Visual Impairment: Limited Hearing Ability: Normal Mother Superior Required: No Beliefs That Will Affect Care: None marital status: Current Living Situation: Rehab Current Living Situation Comment: [facility] Feels Safe at Home: Yes Diet: low salt and vegetarian caffeine: Yes Seatbelt Use: always Assistive Devices: Walker and Wheelchair Review of Systems Review of Systems: All systems reviewed & are unremarkable except as noted in HPI & below Physical Exam Constitutional: WD/WN, vitals as above cooperative; not in distress Neck: trachea midline Respiratory: normal respiratory effort Auscultation: lungs clear to auscultation bilaterally and + diminished lung sounds Cardiovascular: Rate/Rhythm: regular rate and regular rhythm Vessels: posterior tibial pulses present (dopplerable) and dorsalis pedis pulses present (dopplerable); + abnormal peripheral pulses Extremities: normal capillary refill, + edema, + vascular access device (R IJ) and + AV fistula (+thrill/bruit) Gastrointestinal (Abdomen): Inspection/Auscultation: abdomen normal to inspection and normal bowel sounds Percussion/Palpation: abdomen soft; abdomen nontender Musculoskeletal: no cyanosis or clubbing, extremities motor strength 5/5 Skin: + ulcer (venous ulcerations BLE, great t oe ulcerations) Neurologic: moves all extremities and awake; no focal motor deficits and not confused Psychiatric: Orientation: alert, oriented to person and oriented to place; + not oriented to time Results & Data Vital Signs (Past 12 Hours) Vital Signs Temp Pulse Pulse Resp BP Pulse Ox O2 Del Method 02/15/23 07:46 36.4 C L 72 16 96/57 L 96 Room Air 02/15/23 07:24 Room Air 02/15/23 05:57 68 02/15/23 03:44 36.6 C 71 18 96/51 L 95 Room Air 02/14/23 23:23 71
--- NOTE | 2023-02-15 10:41 | Pharmacy Report ---
Pharmacy Glycemic Short Note 2 - Date of Service February 15, 2023 - Glycemic Short BSG Results (Last 24 hours): 02/14/23 02/14/23 02/14/23 12:19 17:11 20:11 Glucose POC Glucose 147 H 91 100 H 02/15/23 02/15/23 02/15/23 05:57 06:59 07:14 Glucose 48 L* POC Glucose 65 L* 122 H 02/15/23 08:00 Glucose POC Glucose 94 OUTPATIENT ANTIDIABETIC REGIMEN: * novolog 5 units tidm, lantus 25 units HS ASSESSMENT: 02/15 * Patient received total of 21 units of insulin yesterday, of which 17 units were basal * Fasting BSG low this AM 65 mg/dL - plan to hold PM basal for tonight as patient to be NPO starting at midnight for procedure tomorrow 02/13 * 67 year admitted with LLE pain. Patient is type 2 diabetic, ESRD on HD - pharmacy consulted for glycemic management. Patient received total 25 units of insulin yesterday, of which 20 units were basal insulin. Fasting BSG 131 mg/dL - continue same parameters today PLAN FOR INPATIENT GLYCEMIC CONTROL: * Hold outpatient oral diabetes medications * Basal insulin * Lantus - hold * Reassess 02/16 AM * Bolus insulin * NovoLog per scale ACHS or Q6hrs while NPO * Goal Range: Low 110 mg/dL - High 140 mg/dL * Correction Factor: 25 mg/dL/unit * Nutritional / Prandial insulin per carb ratio of 1 unit per -- grams CHO consumed
--- NOTE | 2023-02-15 12:56 | Nephrology Progress Note ---
Date of Service February 15, 2023 Assessment & Plan (1) ESRD (end stage renal disease): (2) Hypotension: (3) Leg swelling: (4) Fluid overload: (5) Encounter for dialysis and dialysis catheter care: (6) Failure to thrive in adult: Plan 67 year old female with ESKD due to diabetic nephropathy on IHD MWF via R IJ TCC. Has AODM, HTN, ASCVD, resident at [facility].She was hospitalized from 02/03/23-02/10/23 for evaluation of hypotension, bilateral LE ischemia and refractory hyperkalemia w/ volume overload, received Midodrine and back to back HD. 02/09/23 LE angiogram was negative for critical stenosis. She was readmitted on 02/12/23 from [facility] with hypotension and IJ TCC malfunction. Had HD Wednesday but TDC did not work today. --continue to monitor electrolyte and volume status. --limit fluid intake to <1200 ml/d, low K diet --plan for TDC exchange tomorrow and HD after that. --CATHIE 4000 units with HD 02/16/23 --continue Cinacalcet and Renvela tidm, start nephro caps daily Admission and Anticipated Discharge Date Admission Date: February 12, 2023 Giovanni Mathis was seen and evaluated this morning. She went for HD this morning but TDC did not work. Otherwise comfortable, denies SOB. BP relatively low. Review of Systems Review of Systems: Detail ROS was otherwise unremarkable. Physical Exam Constitutional: WD/WN, vitals as above no acute distress Respiratory: no respiratory distress Auscultation: lungs clear to auscultation bilaterally and + diminished lung sounds; no crackles and no wheezes Cardiovascular: Rate/Rhythm: regular rate and regular rhythm Heart Sounds: normal S1 and normal S2 Extremities: + edema Skin: + turgor decreased and + skin atrophy Neurologic: no focal motor deficits Psychiatric: Orientation: alert and oriented x 3 Results & Data Vital Signs (Past 12 Hours) Vital Signs Temp Pulse Pulse Pulse Resp BP BP 02/15/23 11: 36.5 C 83 16 99/64 L 02/15/23 09:15 36.4 C L 86 107/59 L 02/15/23 08:53 87 113/63 02/15/23 08:40 36.4 C L 85 02/15/23 07:46 36.4 C L 72 16 96/57 L 02/15/23 07:24 02/15/23 05:57 68 02/15/23 03:44 36.6 C 71 18 96/51 L Pulse Ox O2 Del Method 02/15/23 11:23 94 Room Air 02/15/23 09:15 02/15/23 08:53 02/15/23 08:40 02/15/23 07:46 96 Room Air 02/15/23 07:24 Room Air 02/15/23 05:57 02/15/23 03:44 95 Room Air PG Care Time/CCT Total # of Minutes Spent Total Time Spent with Patient: Total time spent is greater than 50% in coordination of care (as documented) at patient's floor/unit and/or counseling patient: Coding Level of Care Code 15583 SUB INP/OBS CARE 235MIN Diagnoses ESRD (end stage renal disease) N18.6 Hypotension I95.9 Leg swelling M79.89 Fluid overload E87.70 Hypervolemia type: unspecified Encounter for dialysis and dialysis catheter care Z99.2 Failure to thrive in adult R62.7 (4) Fluid overload Hypervolemia type: unspecified Qualified Code(s): E87.70 - Fluid overload, unspecified
[2023-02-15] MEDS: HYDROmorphone INJ 0.5 MG/0.5 ML SYR IV PRN (13:51)
--- NOTE | 2023-02-15 16:41 | Hospitalist Progress Note ---
Date of Service February 15, 2023 Assessment & Plan (1) ESRD (end stage renal disease): Plan: HD on //. Nephrology consultation and recommendations appreciated. Malfunction of tunneled dialysis catheter today, February 16. This will be replaced in the OR by vascular surgery tomorrow, February 16. Serial lab (2) Peripheral arterial disease: Plan: Intermittent BLE pain - improving as of 02/13. S/p bilateral lower extremity arteriogram on 02/09. No intervention performed at that time. Pain control measures. We will defer to vascular surgery if patient needs further intervention (3) Constipation: Plan: Stool softeners and laxatives as needed (4) Diabetes type 2, uncontrolled: Plan: ADA diet. Basal insulin coverage. Sliding scale coverage. Last A1c 7.7% on 02/13/2023 (5) Hypotension: Plan: Occurs with dialysis. Nephrology aware. She takes midodrine prior to dialysis sessions. (6) Cardiomyopathy: Plan: History of Takotsubo's cardiomyopathy in 2009. Stable. Continue current medical management. LVEF of 25 to 30%, moderate AAS, mild MR, mild TR, and elevated RVSP at 50-60mmHg (7) Venous stasis ulcer of both lower extremities without varicose veins: Plan: Supportive care (8) Morbid obesity: Plan: BMI greater than 40. Weight loss recommended (9) CAD (coronary artery disease): Plan: Stable. Continue current medical manage Plan [facility]ful return to [facility] this [facility]. Admission and Anticipated Discharge Date Admission Date: February 12, 2023 Subjective Alert and oriented. No complaints. is at the bedside. Nephrology entry noted. Tunneled dialysis catheter malfunction today, February 15. This will be exchanged per vascular surgery in the OR tomorrow, February 16. No new problems Review of Systems 2 Review of Systems: Constitutional-no fever or chills ENT-no blurred vision, no double vision, no epistaxis, no sore throat Respiratory-no cough, no wheezing, no shortness of breath Cardiac-no palpitations, no chest pain, no syncope GI-no nausea, vomiting, diarrhea, melena, hematochezia -no urinary retention, no urinary incontinence, no dysuria, no hematuria Musculoskeletal-no joint pain, no muscle tenderness Skin-no bruising, no rashes, no pruritus Neuro-no isolated weakness, no paresthesia, no weakness Psych-no depression, no anxiety Physical Exam 2 Physical Exam: General-alert and oriented x3, no fevers, no chills HEENT-head atraumatic and normocephalic, pupils equal and reactive to light, extraocular muscles intact Neck-no lymphadenopathy or thyromegaly, trachea midline Chest-clear to auscultation percussion. No rales wheezing or rhonchi Cardiac-regular rate and rhythm, normal S1 and S2 Abdomen-normal bowel sounds, nontender, no hepatosplenomegaly Extremities-no cyanosis, clubbing, or edema Neuro-cranial nerves II through XII intact, motor and sensory function within normal limits, strength symmetrical, no focal deficits Psych-normal affect, normal mood Results & Data Results & Data Vital Signs (Past 12 Hours) Vital Signs Temp Pulse Pulse Pulse Resp BP BP 02/15/23 14:01 83 02/15/23 11:23 36.5 C 83 16 99/64 L 02/15/23 09:15 36.4 C L 86 107/59 L 02/15/23 08:53 87 113/63 02/15/23 08:40 36.4 C L 85 02/15/23 07:46 36.4 C L 72 16 96/57 L 02/15/23 07:24 02/15/23 05:57 68 Pulse Ox O2 Del Method 02/15/23 14:01 02/15/23 11:23 94 Room Air 02/15/23 09:15 02/15/23 08:53 02/15/23 08:40 02/15/23 07:46 96 Room Air 02/15/23 07:24 Room Air 02/15/23 05:57 Laboratory Results 02/15/23 05:57 02/15/23 05:57 PG Care Time/CCT Total # of Minutes Spent Total Time Spent with Patient: Total time spent is greater than 50% in coordination of care (as documented) at patient's floor/unit and/or counseling patient: Coding Level of Care Code 11125 SUB INP/OBS CARE 3/50MIN Diagnoses ESRD (end stage renal disease) N18.6 Peripheral arterial disease I73.9 Constipation K59.00 Uncontrolled type 2 diabetes mellitus with hyperglycemia E11.65 Glycemic state: with hyperglycemia Hypotension I95.9 Cardiomyopathy I42.9 Venous stasis ulcer of both lower extremities without varicose veins I87.2; L97.919; L97.929 Morbid obesity E66.01 CAD (coronary artery disease) I25.10 (4) Diabetes type 2, uncontrolled Glycemic state: with hyperglycemia Qualified Code(s): E11.65 - Type 2 diabetes mellitus with hyperglycemia
[2023-02-15] MEDS ORDERED: SIMETHICONE 80 MG CHEW PO PRN (18:49)
[2023-02-15] MEDS: CLOPIDOGREL BISULFATE 75 MG TAB PO SCH (21:11)
[2023-02-15] MEDS: traZODone HCL 50 MG TAB PO SCH (21:11)
[2023-02-16] MEDS ORDERED: Nursing to Pharmacy Communication SCH (05:45)
[2023-02-16] MEDS ORDERED: ceFAZolin 2000MG 2,000 MG/15 ML SYR IV ONE (06:00)
[2023-02-16] MEDS: INSULIN ASPART PER UNIT CHARGE SC SCH ×4 (06:22→20:14)
[2023-02-16 06:34] LABS: Hematocrit (blood only) 33.5 % (37.0-47.0); Hemoglobin 10.4 g/dl (12.0-16.0); Mean Corpuscular Volume 93.3 fL (80.0-100.0); Mean Platelet Volume 10.3 fL (9.4-12.4); Platelet Count 273 K/uL (130-400); RDW Coefficient of Variation 15.4 % (11.5-14.5); RDW Standard Deviation 52.4 fL (36.4-46.3); Red Blood Count 3.59 M/uL (4.20-5.40); White Blood Count 9.38 K/ul (4.8-10.8)
[2023-02-16] MEDS: SEVELAMER HCL 800 MG TABLET PO SCH ×3 (06:50→16:41)
[2023-02-16 06:52] LABS: BUN Creatinine Ratio 8.7 (10-20); Calcium 9.8 mg/dl (8.6-10.3); Creatinine Clr Calc Pharmacy 6.6 ml/min; Est GFR (African American) 4.4 ml/min; Est GFR (Non-African American) 3.8 ml/min; Magnesium 2.7 mg/dl (1.7-2.4); Phosphorus 7.9 mg/dl (2.5-4.9); Potassium 5.3 mmol/L (3.5-5.1)
[2023-02-16] MEDS: HEPARIN SOD 5,000 UNIT/0.5 ML VIAL SQ SCH ×2 (07:26→20:50)
--- OUTSIDE RECORDS SUMMARY | 2023-02-16 07:36 | External Medical Summary | Summary of Care ---
Author Name Unknown Organization [facility] Address [address] [address] Phone [phone] Care Team Providers Care Mine Safety Engineer Name Role Phone Jesse Moser MD Primary Care Provi carlos Reason for Visit * Reason Onset Date Comments [facility]: Maintenance 12/04/2022 Encounter Details Date Type Department Care Team Description 12/04/2022 Scheduled Telephone [facility], [facility] [address] [facility] [place] [id number] [place] [address] [facility] [place] [address] Allergies Active Allergy Reactions Severity Noted Date Comments Azithromycin Nausea/vomiting 04/16/2011 Erythromycin Nausea/vomiting 01/12/2019 Dulaglutide Hives 01/12/2019 Ezetimibe Muscle pain 04/16/2011 documented as of this encounter (statuses as of 12/04/2022) Medications Medication Sig Dispensed Refills Start Date End Date Status LANTUS SOLOSTAR 100 UNIT/ML SUBQ SOLNIndications:DM type 2, goal A1c below 7 USE 35 UNITS SUBCUTANEOUS INJECTION DAILY 5 Pen 0 05/23/2013 Active Additional Information Patient taking differently: 20 units under the skin twice daily, Reported on 08/12/2018 NOVOLOG FLEXPEN 100 UNIT/ML SUBQ SOLNIndications:DM type 2, goal A1c below 7 PER SLIDING SCALE 30 Pen 5 06/01/2013 Active fluticasone (FLONASE) 50 MCG/ACT nasal spray Administer 1 [place] into nostril daily. 0 Active Sennosides (SENNA) 8.6 MG Tablet Take 2 Tabs by mouth as needed. 0 Active clopidogrel (PLAVIX) 75 MG Tablet Take 1 Tab by mouth daily. 30 Tab 0 08/12/2018 Active pantoprazole (PROTONIX) 40 MG TBEC Take 1 Tab by mouth 2 times a day. 60 Tab 0 08/12/2018 Active carvedilol (COREG) 25 MG TabletIndications:H TN, goal below 140/90 50 mg by mouth twice daily 60 Tab 0 08/12/2018 Active furosemide (LASIX) 40 MG Tablet Take 1 Tab by mouth daily. 30 Tab 0 08/12/2018 Active hydrALAZINE (APRESOLINE) 50 MG Tablet Take 50 mg by mouth 2 times a day. 0 01/27/2019 Active potassium chloride ER 10 MEQ TBCR Take 10 mEq by mouth daily. 0 01/27/2019 Active amLODIPine (NORVASC) 10 MG Tablet Take 10 mg by mouth daily. 3 03/24/2019 Active documented as of this encounter (statuses as of 12/04/2022) Active Problems Problem Noted Date Dysuria 03/15/2015 HTN, goal below 140/90 09/08/2013 Type 2 diabetes mellitus with hemoglobin A1c goal of less than 7.0% 05/30/2013 Overview: ICD-10 update of inactive term Dyslipidemia, goal LDL below 100 012 Vitamin D deficiency 08/12/2011 Sinusitis acute 04/16/2011 DM type 2, not at goal 08/22/2009 Hypopotassemia 08/22/2009 Idiopathic cardiomyopathy documented as of this encounter (statuses as of 12/04/2022) Resolved Problems Problem Noted Date Resolved Date UTI (urinary tract infection) 03/18/2015 HTN, goal below 140/90 09/08/2010 2 Other primary cardiomyopathies 09/12/2009 0 09/12/2009 Dyslipidemia, goal LDL below 70 08/22/2009 02/10/2012 ACTIVE CASE MANAGEMENT 08/14/2009 0 Overview: Gladys Edwards RN Outpatient Pin Ticket Machine OperatorPerl Programmer number: [phone] Fax number: [phone] documented as of this encounter (statuses as of 12/04/2022) Immunizations Name Administration Dates Next Due Pneumococcal Polysaccharide PPV23 (Pneumovax) 12/17/2009 Seasonal Influenza, Quadriva lent, No Preserve, IM 01/27/2019 Seasonal Influenza, Split, I IV3, With Preserve, Inj 01/12/2012,01/06/2011,12/17/2009 TDAP (age 11 and older)(Adacel) 08/08/2009 documented as of this encounter Social History Tobacco Use Types Packs/Day Years Used Date Smoking Tobacco: Never Smokeless Tobacco: Never Alcohol Use Standard Drinks/Week Comments Yes 0 (1 standard drink = 0.6 oz pur e alcohol) "sparingly a glass of each" Sex Assigned at Date Recorded Not on file documented as of this encounter Miscellaneous Notes * Telephone Encounter - Cely San CM - 12/04/2022 11:50 AM EDT Call placed to [facility]. Confirmed that patient is still at facility. Transferred to hospital social worker. [facility] for Shital Reeves requesting a call back Cely San Dining Room Hostess [facility] at Home [email or web address] documented in this encounter Plan of Treatment Health Maintenance Due Date Last Done Comments DXA Scan 1955 Depression Screening, Annual for Pts 12 and Over 1967 Hepatitis C Screening 08/08/1973 Mammogram 1995 Cologuard 08/08/2000 Colonoscopy 08/08/2000 Colorectal Cancer Screening 08/08/2000 Fecal Occult Blood Test 08/08/2000 Sigmoidoscopy 08/08/2000 Pneumococcal Vaccine: 65+ Years (2 - PCV) 12/17/2010 12/17/2009 DIABETES-FOOT EXAM 01/11/2013 01/12/2012, 1 , 12/17/2009 Albumin/Creatinine Ratio 07/07/2013 013, 01/12/2012, 04/15/2010, Additional history exists Lipid Panel 07/07/2017 07/07/2012, 10/0 12/2011, 08/15/2010, Additional history exists DTaP,Tdap,and Td Vaccines (2 - Td or Tdap) 2019 08/08/2009 HbA1c 04/08/2020 10/07/2019, 040 07/2012, 01/12/2012, Additional history exists DIABETES-EYE EXAM 05/25/2020 05/25/2019, , 02/21/2019, Additional history exists COVID-19 Vaccine (3 - Pfizer series) 09/18/2020 07/24/2020, 07/03/2020 GFR 10/10/2020 10/11/2019, 050 10/2018, 08/01/2018, Additional history exists Influenza Vaccine (FLU shot) (#1) 2022 01/27/2019, 01/12/2012, 01/06/2011, Additional history exists Zoster Vaccines Completed 09/26/2019, 06/07/2019 GARDASIL-HPV IMMUNIZATION SERIES Aged Out No longer eligible based on patient's age to complete this topic Hepatitis B Aged Out No longer eligi ble based on patient's age to complete this topic MENINGOCOCCAL (MENACTRA/MENVEO) Aged Out No longer eligible based on patient's age to complete this topic documented as of this encounter Medical Devices Not on filedocumented as of this encounter Care Teams Mine Safety Engineer Relationship Specialty Start Date End Date Jesse Moser MD [address] [place] [address] [place] [address] PCP - General Internal Medicine 08/01/18 documented as of this encounter
--- OUTSIDE RECORDS SUMMARY | 2023-02-16 07:36 | External Medical Summary | Summary of Care ---
Author Name Unknown Organization [facility] Address [address] [facility] [place] [address] Phone [phone] Care Team Providers Care Meat Stocker Name Role Phone Jesse Moser MD Primary Care Provi carlos Reason for Visit * Reason Onset Date Comments [facility]: Maintenance 02/05/2023 Encounter Details Date Type Department Care Team ([facility] st Contact Info) Description 02/05/2023 Telephone [facility], [facility] [address] [place] [address] [facility], Nurse [address] [address] [facility]: Maintenance Allergies Active Allergy Reactions Criticality Noted Date Comments Azithromycin Nausea/vomiting 04/16/2011 Erythromycin Nausea/vomiting 01/12/2019 Dulaglutide Hives 01/12/2019 Ezetimibe Muscle pain 04/16/2011 documented as of this encounter (statuses as of 02/05/2023) Medications Medication Sig Dispensed Refills Start Date [...] (FLONASE) 50 MCG/ACT nasal spray Administer 1 [place] into nostril daily. 0 Active Sennosides (SENNA) [...] as of this encounter (statuses as of 02/05/2023) Active Problems Problem Noted Date Diagnosed Date Dysuria 03/15/2015 HTN, goal below 140/90 09/08/2013 Type 2 diabetes mellitus wit h hemoglobin A1c goal of less than 7.0% 05/30/2013 Overview: ICD-10 update of inactive term Dyslipidemia, goal LDL below 100 02/10/2012 Vitamin D deficiency 08/12/2011 Sinusitis acute 04/16/2011 DM type 2, not at goal 08/22/2009 Hypopotassemia 08/22/2009 Idiopathic cardiomyopathy documented as of this encounter (statuses as of 02/05/2023) Resolved Problems Problem Noted Date Diagnosed Date Resolved Date UTI (urinary tract infection) 03/18/2015 07/25/2018 HTN, goal below 140/90 09/08/201008/11 Other primary cardiomyopathies 09/12/2009 09/12/2009 Dyslipidemia, goal LDL below 70 08/22/2009 02/10/2012 ACTIVE CASE MANAGEMENT 08/14/200901/20 Overview: Gladys Edwards RN Outpatient Steam Station SupervisorBrazing Machine Setter number: [phone] Fax number: [phone] documented as of this encounter (statuses as of 02/05/2023) Immunizations Name Administration Dates Next Due Pneumococcal [...] alcohol) "sparingly a glass of each" Sex and Gender Information Value Date Recorded Sex Assigned at Not on file Gender Identity Not on file Sexual Orientation Not on file documented as of this encounter Miscellaneous Notes * Telephone Encounter - Wen Pandya LPN - 02/05/2023 9:22 AM EDT Patient not yet enrolled Admitted to [facility] at this time Will place on list to follow d/c was at [facility] in Dec 2022 [facility] documented in this encounter Plan of Treatment Health Maintenance Due Date Last Done Comments DXA Scan 1955 Depression Screening 1967 Hepatitis C Screening 08/08/1973 Mammogram 1995 Cologuard 08/08/2000 Colonoscopy 08/08/2000 Colorectal Cancer Screening 08/08/2000 Fecal Occult Blood Test 08/08/2000 Sigmoidoscopy 08/08/2000 Pneumococcal Vaccine: 65+ Years (2 - PCV) 12/17/2010 12/17/2009 Diabetic Foot Exam 01/11/2013 01/12/2012, 1 , 12/17/2009 Albumin/Creatinine Ratio 07/07/2013 013, 01/12/2012, 04/15/2010, Additional history exists Hepatitis B (1 of 3 - Risk 3-dose series) 2015 Lipid Panel 07/07/2017 07/07/2012, 10/0 12/2011, 08/15/2010, Additional history exists DTaP,Tdap,and Td Vaccines (2 - Td or Tdap) 2019 08/08/2009 HbA1c 04/08/2020 10/07/2019, 07/2012, 01/12/2012, Additional history exists Diabetic Eye Exam 05/25/2020 05/25/2019, , 02/21/2019, Additional history exists GFR 10/10/2020 10/11/2019, 10/2018, 08/01/2018, Additional history exists COVID-19 Vaccine ( season) 2022 07/24/2020, 07/03/2020 Influenza Vaccine (FLU shot) (#1) 2022 01/27/2019, [...] filedocumented as of this encounter Care Teams Meat Stocker Relationship Specialty Start Date End Date Jesse Moser MD [address] [place] [address] [place] [address] PCP - General Internal Medicine 08/01/18 documented as of this encounter
--- NOTE | 2023-02-16 07:52 | History & Physical Bridge Note ---
Date of Service February 16, 2023 History & Physical Bridge Note Patient for exchange of her permcath today. I have discussed the risks options and benefits of the procedure with the patient. The patient understands the risks options and benefits and agrees to the procedure. I have examined the patient, reviewed the History & Physical and in the interval since the performance of the History & Physical I have noted the following changes of clinical significance: no changes noted
[2023-02-16] MEDS: DICLOFENAC SOD 1% GEL 100 GM TUBE EXT SCH ×2 (07:54→20:50)
[2023-02-16] MEDS: GABAPENTIN 100 MG CAP PO SCH ×2 (07:55→21:35)
[2023-02-16] MEDS: NEPHROCAPS PO SCH (07:55)
[2023-02-16] MEDS: PANTOprazole 40 MG TAB PO SCH (07:57)
[2023-02-16] MEDS: BACITRACIN OINT 14 GM TUBE TOP SCH (07:57)
[2023-02-16] MEDS: BUMETANIDE 1 MG TAB PO SCH (07:57)
[2023-02-16] MEDS: ACETAMINOPHEN 500 MG TAB PO SCH ×3 (08:00→21:34)
--- NOTE | 2023-02-16 10:35 | Nephrology Progress Note ---
Date of Service February 16, 2023 Assessment & Plan (1) ESRD (end stage renal disease): (2) Hypotension: (3) Leg swelling: (4) Fluid overload: (5) Encounter for dialysis and dialysis catheter care: (6) Failure to thrive in adult: (7) Hyperkalemia: Plan 67 year old female with ESKD due to diabetic nephropathy on IHD MWF via R IJ TCC. Has AODM, HTN, ASCVD, resident at [facility].She was hospitalized from 02/03/23-02/10/23 for evaluation of hypotension, bilateral LE ischemia and refractory hyperkalemia w/ volume overload, received Midodrine and back to back HD. 02/09/23 LE angiogram was negative for critical stenosis. She was readmitted on 02/12/23 from [facility] with hypotension and IJ TCC malfunction. Had HD Wednesday and plan for TDC exchange today as could not get enough blood flow, ? positional . --limit fluid intake to <1200 ml/d, low K diet --plan for TDC exchange today and HD after that. --CATHIE 4000 units with HD 02/16/23 --continue Cinacalcet and Renvela tidm, nephro caps daily Admission and Anticipated Discharge Date Admission Date: February 12, 2023 Giovanni Mathis was seen and evaluated this morning. She is NPO and waiting for TDC exchange this morning. Otherwise comfortable, denies SOB. BP relatively low. K mildly elevated. Review of Systems Review of Systems: Detail ROS was otherwise unremarkable. Physical Exam Constitutional: WD/WN, vitals as above no acute distress Eyes: + anicteric sclerae Neck: normal visual inspection Respiratory: no respiratory distress Auscultation: lungs clear to auscultation bilaterally and + diminished lung sounds; no crackles and no wheezes Cardiovascular: Rate/Rhythm: regular rate and regular rhythm Heart Sounds: normal S1 and normal S2 Extremities: + edema Skin: + turgor decreased and + skin atrophy Neurologic: no focal motor deficits Psychiatric: Orientation: alert and oriented x 3 Results & Data Vital Signs (Past 12 Hours) Vital Signs Temp Pulse Pulse Resp BP Pulse Ox O2 Del Method 02/16/23 10:09 36.4 C L 83 16 101/59 L 95 Room Air 02/16/23 07:56 80 16 94/56 L 94 Room Air 02/16/23 07:41 36.3 C L 80 18 78/50 L 90 Room Air 02/16/23 07:06 Room Air 02/16/23 06:01 80 02/16/23 04:47 36.5 C 78 20 100/66 96 Room Air 02/15/23 23:19 37.0 C 81 18 121/81 96 Room Air PG Care Time/CCT Total # of Minutes Spent Total Time Spent with Patient: Total time spent is greater than 50% in coordination of care (as documented) at patient's floor/unit and/or counseling patient: Coding Level of Care Code 13786 SUB INP/OBS CARE MIN Diagnoses ESRD (end stage renal disease) N18.6 Hypotension I95.9 Leg swelling M79.89 Fluid overload E87.70 Hypervolemia type: unspecified Encounter for dialysis and dialysis catheter care Z99.2 Failure to thrive in adult R62.7 Hyperkalemia E87.5 (4) Fluid overload Hypervolemia type: unspecified Qualified Code(s): E87.70 - Fluid overload, unspecified
[2023-02-16] MEDS: SODIUM CHLORIDE 0.9% 1,000 ML IV SCH (10:45)
[2023-02-16] MEDS ORDERED: LIDOCAINE 1% LOCAL 20 ML VIAL ONE (11:27)
[2023-02-16] MEDS ORDERED: HEPARIN SOD (PORCINE) 5,000 UNITS/ML VIAL ONE (11:27)
[2023-02-16] MEDS ORDERED: ceFAZolin 2,000 MG/15 ML IV PUSH IV ONE (11:41)
--- NOTE | 2023-02-16 11:43 | Pre Anesthesia Assessment ---
Date of Service February 16, 2023 Pre Sedation Assessment Vital Signs Temp Pulse Pulse Resp BP Pulse Ox O2 Del Method 02/16/23 10:09 36.4 C L 83 16 101/59 L 95 Room Air 02/16/23 07:56 80 16 94/56 L 94 Room Air 02/16/23 07:41 36.3 C L 80 18 78/50 L 90 Room Air 02/16/23 07:06 Room Air 02/16/23 06:01 80 02/16/23 04:47 36.5 C 78 20 100/66 96 Room Air 02/15/23 23:19 37.0 C 81 18 121/81 96 Room Air 02/15/23 22:15 80 02/15/23 20:46 Room Air 02/15/23 20:39 36.9 C 85 18 86/51 L 93 Room Air 02/15/23 14:01 83 Cardiovascular RRR, no murmur, no edema Respiratory normal respiratory effort, lungs clear to auscultation Pre-Sedation Airway Assessment Smoking Status: Never smoker Hx Sleep Apnea: No Short, Thick Neck: No Thyromental Distance: > or= 3.5 Finger Breadths Oral Cavity: + WNL Mallampati Class: III ASA: ASA3 NPO Status Date of Last Intake of Fluids: 02/16/23 Time of Last Intake of Fluids: 08:00 Date of Last Intake of Solid Food: 02/15/23 Time of Last Intake of Solid Foods: 18:00 Procedure Planning Contraindications for Sedation: none Current Medications Reviewed: Yes Notes The planned sedation has been discussed with the patient. Informed Consent was obtained. I have identified the patient, determined the appropriateness of sedation and have assessed the patient immediately prior to the procedure. All medicine(s) and interventions are by my order.
[2023-02-16] MEDS ORDERED: MIDAZOLAM HCL 1 MG/ML 2ML VIAL ONE (11:55)
[2023-02-16] MEDS ORDERED: fentaNYL citrate PF 100 MCG/2 ML VIAL ONE (11:55)
[2023-02-16] MEDS ORDERED: ARISTA ABSORBABLE HEMOSTAT 3GM TOP ONE (12:11)
--- NOTE | 2023-02-16 12:19 | Operative Report ---
Post Operative Report Pre & Post Diagnosis Operation Date: 02/16/23 11:00 Pre-Op Diagnosis: Malfunctioning Perm Cath Post-Op Diagnosis: Malfunctioning Perm Cath I identified the patient and participated in the time-out.: Yes Procedure Operation Date: 02/16/23 11:00 Actual Procedures p Perm Catheter Exchange, fluoroscopy for positioning (Right) - Guanakito Luke MD Surgeon Guanakito Luke MD Vacuum Cooker Operator None Estimated Blood Loss 5 Findings Consistent with Post-Op Diagnosis Specimens None Anesthesia Type Local Complications none Disposition Accompanied Patient To Recovery: No Disposition: Recovery Room Indications Patient is a 67-year-old female with a PermCath in place. It is running poorly with markedly decreased flow volumes. Replacement was recommended. I have discussed the risks options and benefits of the procedure with the patient. The patient understands the risks options and benefits and agrees to the procedure. Description of Procedure Patient was takent to the angio suite and placed in the supine position. The right side of the neck, catheter and chest wall were prepped and draped in a sterile manner. The patient was identified and a timeout performed. Local anesthesia was then administered to the appropriate areas. A guidewire was then passed centrally under fluoroscopic imaging through the old permcath. The old permcath was removed after freeing up the dacron cuff of the permcath using blunt and sharp dissection. A new 19 cm permcath was inserted without difficulty. The catheter was sutured in placed. Both ports aspirated and flushed easily and were then packed with heparin. A sterile dressing was applied to the catheter. The patient left the operation room in satisfactory condition and tolerated the procedure well. All needle and sponge counts were correct at the end of the procedure. I attest to the content of the Intraoperative Record and any orders documented therein. Any exceptions are noted below.
[2023-02-16] MEDS ORDERED: MIDODRINE HCL 10 MG TAB PO STA (13:20)
[2023-02-16] MEDS: HYDROmorphone INJ 0.5 MG/0.5 ML SYR IV PRN ×2 (13:25→17:25)
--- OUTSIDE RECORDS SUMMARY | 2023-02-16 14:48 | External Medical Summary | Summary of Care ---
Author Name Unknown Organization [facility] Address [address] [facility] [place] [address] Phone [phone] Care Team Providers Care Melter Assistant Name Role Phone Jesse Moser MD Primary Care Provi carlos Reason for Visit * Reason Onset Date Comments [facility]: Maintenance 02/12/2023 Encounter Details Date Type Department Care Team ([facility] st Contact Info) Description 02/12/2023 Telephone [facility], [facility] [address] [facility] [place] [address] [facility], Nurse [facility] [address] [facility] [place] [address] [facility]: Maintenance Allergies Active Allergy Reactions Criticality Noted Date Comments Azithromycin Nausea/vomiting 04/16/2011 Erythromycin Nausea/vomiting 01/12/2019 Dulaglutide Hives 01/12/2019 Ezetimibe Muscle pain 04/16/2011 documented as of this encounter (statuses as of 02/12/2023) Medications Medication Sig Dispensed Refills Start Date [...] (FLONASE) 50 MCG/ACT nasal spray Administer 1 [place] into nostril daily. 0 Active Sennosides (SENNA) [...] as of this encounter (statuses as of 02/12/2023) Active Problems Problem Noted Date Diagnosed Date [...] as of this encounter (statuses as of 02/12/2023) Resolved Problems Problem Noted Date Diagnosed Date Resolved Date UTI (urinary tract infection) 03/18/2015 07/25/2018 HTN, goal below 140/90 09/08/201008/11 Other primary cardiomyopathies 09/12/2009 09/12/2009 Dyslipidemia, goal LDL below 70 08/22/2009 02/10/2012 ACTIVE CASE MANAGEMENT 08/14/200901/20 Overview: Gladys Edwards RN Outpatient Field Services AnalystReconsignment Clerk number: [phone] Fax number: [phone] documented as of this encounter (statuses as of 02/12/2023) Immunizations Name Administration Dates Next Due Pneumococcal [...] encounter Miscellaneous Notes * Telephone Encounter - Winifred Woody LPN - 02/12/2023 9:18 AM EST Per [place], patient was discharged from [facility] 02/11 to [facility] Will add to Cely San's schedule for 1 week follow up call documented in this encounter Plan of Treatment Upcoming Encounters Date Type Department Care Team (Late st Contact Info) Description 02/19/2023 11:00 AM EST Scheduled Telephone [facility], [facility] [address] [facility] [place] [address] [place] San, [address] [place] [address] Health Maintenance Due Date Last Done Comments [...] 3-dose series) 2015 Lipid Panel 07/07/2017 07/07/2012, 12/2011, 08/15/2010, Additional history exists DTaP,Tdap,and Td [...] filedocumented as of this encounter Care Teams Melter Assistant Relationship Specialty Start Date End Date Jesse Moser MD [address] [place] [address] [place] [address] PCP - General Internal Medicine 08/01/18 documented as of this encounter
--- NOTE | 2023-02-16 16:46 | Hospitalist Progress Note ---
Date of Service February 16, 2023 Assessment & Plan (1) ESRD (end stage renal disease): Plan: HD on //. Nephrology consultation and recommendations appreciated. Malfunction of tunneled dialysis catheter occurred on February 16. This was replaced in the OR by vascular surgery today, February 16. She then underwent hemodialysis today, February 16, uneventfully. This will be repeated tomorrow and then she will return to [facility] care. Serial lab (2) Peripheral arterial disease: Plan: Intermittent BLE pain - improving as of 02/13. S/p bilateral lower extremity arteriogram on 02/09. No intervention performed at that time. Pain control measures. We will defer to vascular surgery if patient needs further intervention (3) Constipation: Plan: Stool softeners and laxatives as needed (4) Diabetes type 2, uncontrolled: Plan: ADA diet. Basal insulin coverage. Sliding scale coverage. Last A1c 7.7% on 02/13/2023 (5) Hypotension: Plan: Occurs with dialysis. Nephrology aware. She takes midodrine prior to dialysis sessions. (6) Cardiomyopathy: Plan: History of Takotsubo's cardiomyopathy in 2009. Stable. Continue current medical management. LVEF of 25 to 30%, moderate AAS, mild MR, mild TR, and elevated RVSP at 50-60mmHg (7) Venous stasis ulcer of both lower extremities without varicose veins: Plan: Supportive care (8) Morbid obesity: Plan: BMI greater than 40. Weight loss recommended (9) CAD (coronary artery disease): Plan: Stable. Continue current medical manage Plan Hopeful return to Center care after hemodialysis tomorrow, February 17 Admission and Anticipated Discharge Date Admission Date: February 12, 2023 Subjective Alert and oriented. is at the bedside. She had the tunneled dialysis catheter replaced today and underwent hemodialysis uneventfully. She will have hemodialysis again tomorrow, February 17, then probably return to Center care. Review of Systems 2 Review of Systems: Constitutional-no fever or chills ENT-no blurred vision, no double vision, no epistaxis, no sore throat Respiratory-no cough, no wheezing, no shortness of breath Cardiac-no palpitations, no chest pain, no syncope GI-no nausea, vomiting, diarrhea, melena, hematochezia -no urinary retention, no urinary incontinence, no dysuria, no hematuria Musculoskeletal-no joint pain, no muscle tenderness Skin-no bruising, no rashes, no pruritus Neuro-no isolated weakness, no paresthesia, no weakness Psych-no depression, no anxiety Physical Exam 2 Physical Exam: General-alert and oriented x3, no fevers, no chills HEENT-head atraumatic and normocephalic, pupils equal and reactive to light, extraocular muscles intact Neck-no lymphadenopathy or thyromegaly, trachea midline Chest-clear to auscultation percussion. No rales wheezing or rhonchi Cardiac-regular rate and rhythm, normal S1 and S2 Abdomen-normal bowel sounds, nontender, no hepatosplenomegaly Extremities-no cyanosis, clubbing, or edema Neuro-cranial nerves II through XII intact, motor and sensory function within normal limits, strength symmetrical, no focal deficits Psych-normal affect, normal mood Results & Data Results & Data Vital Signs (Past 12 Hours) Vital Signs Temp Pulse Pulse Pulse Pulse Resp BP 02/16/23 16:35 36.5 C 70 02/16/23 16:00 68 88/45 L 02/16/23 15:30 55 L 87/48 L 02/16/23 15:00 71 90/62 L 02/16/23 14:30 71 83/45 L 02/16/23 14:02 69 02/16/23 14:00 66 87/45 L 02/16/23 13:53 69 02/16/23 13:30 71 84/50 L 02/16/23 13:24 62 02/16/23 13:00 84 96/57 L 02/16/23 12:45 79 93/58 L 02/16/23 12:24 36.4 C L 84 02/16/23 12:18 82 18 02/16/23 12:13 82 18 02/16/23 12:10 82 18 02/16/23 12:05 82 18 02/16/23 12:00 82 18 02/16/23 11:55 84 18 02/16/23 10:09 36.4 C L 83 16 02/16/23 07:56 80 16 02/16/23 07:41 36.3 C L 80 18 02/16/23 07:06 02/16/23 06:01 80 02/16/23 04:47 36.5 C 78 20 BP Pulse Ox O2 Del Method O2 Flow Rate 02/16/23 16:35 90/55 L 02/16/23 16:00 02/16/23 15:30 02/16/23 15:00 02/16/23 14:30 02/16/23 14:02 02/16/23 14:00 02/16/23 13:53 02/16/23 13:30 02/16/23 13:24 02/16/23 13:00 02/16/23 12:45 02/16/23 12:24 02/16/23 12:18 105/54 L 99 Oxymask 4 02/16/23 12:13 106/61 99 Oxymask 4 02/16/23 12:10 105/61 99 Oxymask 4 02/16/23 12:05 106/61 99 Oxymask 4 02/16/23 12:00 103/59 L 99 Oxymask 4 02/16/23 11:55 102/59 L 99 Oxymask 4 02/16/23 10:09 101/59 L 95 Room Air 02/16/23 07:56 94/56 L 94 Room Air 02/16/23 07:41 78/50 L 90 Room Air 02/16/23 07:06 Room Air 02/16/23 06:01 02/16/23 04:47 100/66 96 Room Air Laboratory Results 02/16/23 06:09 02/16/23 06:09 PG Care Time/CCT Total # of Minutes Spent Total Time Spent with Patient: Total time spent is greater than 50% in coordination of care (as documented) at patient's floor/unit and/or counseling patient: Coding Level of Care Code 59848 SUB INP/OBS CARE 2MIN Diagnoses ESRD (end stage renal disease) N18.6 Peripheral arterial disease I73.9 Constipation K59.00 Uncontrolled type 2 diabetes mellitus with hyperglycemia E11.65 Glycemic state: with hyperglycemia Hypotension I95.9 Cardiomyopathy I42.9 Venous stasis ulcer of both lower extremities without varicose veins I87.2; L97.919; L97.929 Morbid obesity E66.01 CAD (coronary artery disease) I25.10 (4) Diabetes type 2, uncontrolled Glycemic state: with hyperglycemia Qualified Code(s): E11.65 - Type 2 diabetes mellitus with hyperglycemia
[2023-02-16] MEDS ORDERED: LANTUS PER UNIT CHARGE SQ SCH (21:00)
[2023-02-16] MEDS: CLOPIDOGREL BISULFATE 75 MG TAB PO SCH (21:36)
[2023-02-16] MEDS: traZODone HCL 50 MG TAB PO SCH (21:36)
[2023-02-16] MEDS ORDERED: ONDANSETRON INJ 2 MG/ML 2 ML VIAL IV STA (22:17)
[2023-02-17] MEDS ORDERED: ONDANSETRON INJ 2 MG/ML 2 ML VIAL IV STA (05:05)
[2023-02-17 06:24] LABS: Hematocrit (blood only) 34.4 % (37.0-47.0); Hemoglobin 10.7 g/dl (12.0-16.0); Mean Corpuscular Hemoglobin 28.9 pg (25.0-34.0); Mean Corpuscular Hgb Conc 31.1 g/dL (32.0-36.0); Mean Platelet Volume 10.4 fL (9.4-12.4); Platelet Count 290 K/uL (130-400); RDW Coefficient of Variation 15.1 % (11.5-14.5); RDW Standard Deviation 50.5 fL (36.4-46.3)
[2023-02-17 06:52] LABS: BUN Creatinine Ratio 7.6 (10-20); Calcium 9.9 mg/dl (8.6-10.3); Creatinine Clr Calc Pharmacy 11.1 ml/min; Est GFR (African American) 8.5 ml/min; Est GFR (Non-African American) 7.3 ml/min; Magnesium 2.2 mg/dl (1.7-2.4); Phosphorus 5.9 mg/dl (2.5-4.9); Potassium 4.7 mmol/L (3.5-5.1)
[2023-02-17] MEDS: SODIUM CHLORIDE 0.9% 1,000 ML IV SCH (07:34)
[2023-02-17] MEDS ORDERED: LANTUS PER UNIT CHARGE SQ SCH ×3 (09:00→21:00)
[2023-02-17] MEDS: SEVELAMER HCL 800 MG TABLET PO SCH ×2 (09:00→13:40)
[2023-02-17] MEDS: ONDANSETRON INJ 2 MG/ML 2 ML VIAL IV PRN ×2 (09:27→13:32)
[2023-02-17] MEDS: INSULIN ASPART PER UNIT CHARGE SC SCH ×2 (09:29→13:43)
[2023-02-17] MEDS: DICLOFENAC SOD 1% GEL 100 GM TUBE EXT SCH (09:31)
[2023-02-17] MEDS: BACITRACIN OINT 14 GM TUBE TOP SCH (09:31)
[2023-02-17] MEDS: HEPARIN SOD 5,000 UNIT/0.5 ML VIAL SQ SCH (09:31)
[2023-02-17] MEDS: ACETAMINOPHEN 500 MG TAB PO SCH ×2 (09:36→13:40)
[2023-02-17] MEDS: MIDODRINE HCL 10 MG TAB PO SCH (09:37)
[2023-02-17] MEDS: PANTOprazole 40 MG TAB PO SCH (09:37)
--- NOTE | 2023-02-17 12:34 | Nephrology Progress Note ---
Date of Service February 17, 2023 Assessment & Plan (1) ESRD (end stage renal disease): (2) Hypotension: (3) Leg swelling: (4) Fluid overload: (5) Encounter for dialysis and dialysis catheter care: (6) Failure to thrive in adult: (7) Hyperkalemia: Plan 67 year old female with ESKD due to diabetic nephropathy on IHD MWF via R IJ TCC. Has AODM, HTN, ASCVD, resident at [facility].She was hospitalized from 02/03/23-02/10/23 for evaluation of hypotension, bilateral LE ischemia and refractory hyperkalemia w/ volume overload, received Midodrine and back to back HD. 02/09/23 LE angiogram was negative for critical stenosis. She was readmitted on 02/12/[address] [facility] with hypotension and IJ TCC malfunction. Had HD after TDC exchanged yesterday. --HD today as her regular schedule --limit fluid intake to <1200 ml/d, low K diet --CATHIE 4000 units with HD 02/16/23 --continue Cinacalcet and Renvela tidm, nephro caps daily --OK to MT from nephrology standpoint. Admission and Anticipated Discharge Date Admission Date: February 12, 2023 Giovanni Mathis was seen and evaluated this morning. She she has been having some nausea and one episode of vomiting since last night. Denies shortness of breath or chest pain. Had dialysis yesterday after TDC was exchanged. BP relatively low. K mildly elevated. Review of Systems Review of Systems: Detail ROS was otherwise unremarkable. Physical Exam Constitutional: WD/WN, vitals as above no acute distress Eyes: + anicteric sclerae Neck: normal visual inspection Respiratory: no respiratory distress Auscultation: + diminished lung sounds; no crackles and no wheezes Cardiovascular: Rate/Rhythm: regular rate and regular rhythm Heart Sounds: normal S1 and normal S2 Extremities: + edema Skin: + turgor decreased and + skin atrophy Neurologic: no focal motor deficits Psychiatric: Orientation: alert and oriented x 3 Results & Data Vital Signs (Past 12 Hours) Vital Signs Temp Pulse Pulse Pulse Resp BP BP 02/17/23 12:00 67 97/56 L 02/17/23 11:30 73 86/46 L 02/17/23 11:00 80 101/57 L 02/17/23 10:30 75 86/52 L 02/17/23 10:15 76 91/50 L 02/17/23 10:15 36.9 C 80 02/17/23 07:41 36.9 C 85 16 105/53 L 02/17/23 05:59 87 Pulse Ox O2 Del Method 02/17/23 12:00 02/17/23 11:30 02/17/23 11:00 02/17/23 10:30 02/17/23 10:15 02/17/23 10:15 02/17/23 07:41 92 Room Air 02/17/23 05:59 PG Care Time/CCT Total # of Minutes Spent Total Time Spent with Patient: Total time spent is greater than 50% in coordination of care (as documented) at patient's floor/unit and/or counseling patient: Coding Level of Care Code 47937 SUB INP/OBS CARE 2/35MIN Diagnoses ESRD (end stage renal disease) N18.6 Hypotension I95.9 Leg swelling M79.89 Fluid overload E87.70 Hypervolemia type: unspecified Encounter for dialysis and dialysis catheter care Z99.2 Failure to thrive in adult R62.7 Hyperkalemia E87.5 (4) Fluid overload Hypervolemia type: unspecified Qualified Code(s): E87.70 - Fluid overload, unspecified
--- NOTE | 2023-02-17 12:57 | Discharge Summary ---
Date of Service February 17, 2023 Admission HPI Per Admitting Provider Delfina is a 67-year-old female from [facility] with PMH of ESRD, CVA in 2017, anemia, osteopenia, T2DM, dyslipidemia, GERD, Lyme disease, MR, Takotsubo's cardiomyopathy, CAD, and PAD. She receives dialysis M/W/F at [facility], but reportedly had low blood pressure this morning on 02/12, and there was an issue with her Bates dialysis port (flow rate 300-->200). Patient arrived in the ED, and received inpatient hemodialysis. She is also endorsing left lower leg pain x1 week. She rates the pain 9/10, and reports that it is a sharp, shooting pain that shoots up from her foot to her knee every 10 minutes or so. She has been taking Tylenol, which has not been helping, and the pain is getting worse. She also endorses pain in the RLE, but notes it is not as bad. She reports she is not producing any urine. She denies smoking/tobacco use. Vital stable at time of admission. ED Course: IVF, heparin 2000 units IV once ROS: Patient endorses severe intermittent LLE pain, moderate intermittent RLE pain. Patient denies fever, chills, night sweats, cough, CP, SOB, abdominal pain, N/V, saddle anesthesia, or numbness and tingling in the LEs. Spoke briefly on the phone with the patient's (Augustine), updated him regarding dialysis, and let him know that Delfina would be admitted. Principal Diagnosis Malfunction of tunneled dialysis catheter Discharge Exam General-alert and oriented x3, no fevers, no chills HEENT-head atraumatic and normocephalic, pupils equal and reactive to light, extraocular muscles intact Neck-no lymphadenopathy or thyromegaly, trachea midline Chest-clear to auscultation percussion. No rales wheezing or rhonchi Cardiac-regular rate and rhythm, normal S1 and S2 Abdomen-normal bowel sounds, nontender, no hepatosplenomegaly Extremities-no cyanosis, clubbing, or edema Neuro-cranial nerves II through XII intact, motor and sensory function within normal limits, strength symmetrical, no focal deficits Psych-normal affect, normal mood Discharge Data Allergies Allergy/AdvReac Type Severity Reaction Status Date / Time dulaglutide [From [facility]] Allergy Intermediate Hives Verified 02/09/23 07:26 atorvastatin AdvReac Intermediate Statin Verified 02/09/23 07:26 Cardiomyopathy erythromycin base AdvReac Intermediate Vomiting Verified 02/09/23 07:26 Consultations 02/12/23 11:57 Consult Nephrology Routine 02/12/23 12:01 ED Decision to Admit Stat 02/12/23 12:30 Consult Vascular Surgery Routine Procedures Performed Operation Date: 02/16/23 11:00 Actual Procedures p Perm Catheter Exchange(Right) - Guanakito Luke MD Ordered Studies 02/16/23 07:20 EV cvc replace tunnel wo pp Routine Hospital Course (1) ESRD (end stage renal disease): HD on //. Nephrology consultation and recommendations appreciated. Malfunction of tunneled dialysis catheter occurred on February 16. This was replaced in the OR by vascular surgery on February 16. She underwent hemodialysis on February 16 uneventfully and again today, February 17. (2) Peripheral arterial disease: Intermittent BLE pain - improving as of 02/13. S/p bilateral lower extremity arteriogram on 02/09. No intervention performed at that time. Pain control measures. We will defer to vascular surgery if patient needs further intervention (3) Constipation: Stool softeners and laxatives as needed (4) Diabetes type 2, uncontrolled: ADA diet. Basal insulin coverage. Sliding scale coverage. Last A1c 7.7% on 02/13/2023 (5) Hypotension: Occurs with dialysis. Nephrology aware. She takes midodrine prior to dialysis sessions. Asymptomatic (6) Cardiomyopathy: History of Takotsubo's cardiomyopathy in 2009. Stable. Continue current medical management. LVEF of 25 to 30%, moderate AAS, mild MR, mild TR, and elevated RVSP at 50-60mmHg (7) Venous stasis ulcer of both lower extremities without varicose veins: Supportive care (8) Morbid obesity: BMI greater than 40. Weight loss recommended (9) CAD (coronary artery disease): Stable. Continue current medical manage Plan She will return to Center care today after dialysis is completed, February 17 Total Time Total Time Spent Total Time Spent (In Minutes): 40-minute Discharge Plan Discharge Items Patient Disposition: Transfer Group Home Fac Reason For Visit: DIALYSIS, LLE PAIN Discharge Diagnosis: Malfunction of tunneled dialysis catheter Activity: Resume your previous activity Non-emergency contact: Primary Care Provider and Barrel Rifler Broach Call non-emergency contact if: your symptoms worsen Follow-up/Referrals: Kaushik Mcgarry III, MD [Primary Care Provider] - Diet: Carb Consistent or DM2 and Heart Healthy Addtl Attending Provider Instructions: Home medications remain the same Pending Studies at Discharge: No Stand-Alone Forms: My [facility] Skilled Items Patient informed of condition?: Yes DNR: Yes Discharge Level of Care: Skilled Communicable Disease: No Discharge Prognosis: Stable Lines: None Urinary Catheter: No Medications and DC Order Prescriptions: New polyethylene glycol 3350 [Miralax] 17 gram Powder In Packet 17 g PO DAILY PRN (Reason: constipation) Qty: 0 0RF simethicone [Gas Relief (simethicone)] 80 mg Tablet,Chewable 80 mg PO Q6H PRN (Reason: abdominal distention) Qty: 0 0RF Renal Caps 1 mg Capsule 1 cap PO QAM Qty: 0 0RF Continued (DME) Dexcom G6 Transmitter Device See Rx Instructions .Route Qty: 1 3RF Rx Instructions: As directed. (DME) Dexcom G6 Sensor Device See Rx Instructions .Route Qty: 3 5RF Rx Instructions: As directed. (DME) pen needle, diabetic [BD Ultra-Fine Gwen Pen Needle] 32 gauge x 5/32" needle See Rx Instructions .ROUTE .MEDSUPPLY Qty: 500 3RF Rx Instructions: Use 5 per day as directed with insulin injection (DME) OneTouch Ultra Test Strip See Rx Instructions .Route Qty: 200 5RF Rx Instructions: Check blood sugars QID and as needed sevelamer carbonate 800 mg tablet 800 mg PO TID Qty: 270 3RF Rx Instructions: must administer with a meal/food bumetanide 2 mg tablet 1 mg PO BID Rx Instructions: 1mg on Wednesday, , wed, and wednesday cinacalcet 30 mg tablet 30 mg PO 3XWK Rx Instructions: not on faxed list from [facility], unable to verify QHS QMWF (DME) blood-glucose meter [OneTouch Ultra2 Meter] Kit See Rx Instructions .Route Qty: 1 0RF Rx Instructions: As directed (DME) lancets [OneTouch UltraSoft Lancets] Misc See Rx Instructions .Route Qty: 200 5RF Rx Instructions: Check blood sugars QID and as needed insulin aspart U-100 [Novolog FlexPen U-100 Insulin] 100 unit/mL (3 mL) insulin pen 5 unit SC TIDM Qty: 15 5RF Rx Instructions: take 5 units with meals, TID insulin glargine [Lantus U-100 Insulin] 100 unit/mL solution 25 unit subcut HS Qty: 10 2RF loperamide 2 mg capsule 2 mg PO Q4H PRN (Reason: loose stool) Renal Caps 1 mg capsule 0 cap PO QAM Rx Instructions: not on faxed list from [facility], unable to verify gabapentin 100 mg Capsule 100 mg PO BID clopidogrel [Plavix] 75 mg tablet 75 mg PO HS trazodone 50 mg tablet 25 mg PO HS Rx Instructions: For insomnia midodrine 5 mg tablet 10 mg PO 3XWK Qty: 90 0RF Rx Instructions: Wednesday,wednesday, wednesday before dialysis pantoprazole 40 mg tablet,delayed release (DR/EC) 40 mg PO QAM bacitracin 500 unit/gram Ointment 1 applic TOPICAL DAILY acetaminophen [Tylenol] 325 mg Tablet 650 mg PO Q6H MDD 3GRAMS/24HRS PRN (Reason: PAIN 1-10) acetaminophen [Tylenol] 325 mg Tablet 650 mg PO Q6H MDD 3GRAMS/24HRS PRN (Reason: FEVER >100) cholecalciferol (vitamin D3) 125 mcg (5,000 unit) capsule 125 mcg PO HS Rx Instructions: take one capsule by mouth daily after HD for six weeks. Discharge Orders: Discharge Order (Routine); Ordered 02/17/23 Ordered By: Ky Arevalo/Other Patient Handouts: High Blood Sugar (Hyperglycemia), Managing Type 2 Diabetes Admission Data Admit Date/Time: 02/12/23 14:03 Attending Provider: Ky Bolden Admit Provider: Will Rene Primary Care Provider: Kaushik Mcgarry III Other Providers: [place],[facility]; Matthew Vance; Will Rene; Guanakito Luke Coding Level of Care Code 57352 INP/OBS DISCH >30 MIN Diagnoses ESRD (end stage renal disease) N18.6 Peripheral arterial disease I73.9 Constipation K59.00 Uncontrolled type 2 diabetes mellitus with hyperglycemia E11.65 Glycemic state: with hyperglycemia Hypotension I95.9 Cardiomyopathy I42.9 Venous stasis ulcer of both lower extremities without varicose veins I87.2; L97.919; L97.929 Morbid obesity E66.01 CAD (coronary artery disease) I25.10
[2023-02-17] MEDS: CINACALCET HCL 30 MG TAB PO SCH (13:41)
[2023-02-17] MEDS: NEPHROCAPS PO SCH (13:41)
[2023-02-17] MEDS: GABAPENTIN 100 MG CAP PO SCH (13:41)
== END 2023-02-17 15:55 | DRG 698 ==
LOC: ED 10:00 → SUATTDRO 14:03 → EDINP 14:03 → 2W 16:08

== ENCOUNTER 2023-02-24 10:24 | Inpatient (IN) ==
--- NOTE | 2023-02-24 11:39 | Emergency Department Note ---
Impression & Plan Cardiac arrest, ESRD (end stage renal disease), Ventricular tachycardia, Acute hyperkalemia, Acute hyperglycemia, Non-ST elevation UT (NSTEMI) ED Provider Note NAME: SHALOM KRAMER AGE: 67 SEX: F : 1955 ARRIVES VIA: Walk-In INFORMANT: Patient, the patient's family member ED PROVIDER(S): Spencer Goff DO CHIEF COMPLAINT: Nonfunctioning dialysis port HPI: The patient has a dialysis port in the right chest that has not been working since today. She was due for dialysis today. She was able to have approximately 1 hour of dialysis. She was sent to the emergency department at the request of her sas programmer remote for further evaluation. ROS: See above HPI for pertinent positives & negatives. A total of 10 systems reviewed and were otherwise negative. PAST MEDICAL HISTORY: See Below PAST SURGICAL HISTORY: See Below FAMILY HISTORY: See Below SOCIAL HISTORY: See Below HOME MEDICATIONS: See Below ALLERGIES: See Below VITALS: See Below PHYSICAL EXAMINATION: GENERAL: The patient is awake and alert. She is not anxious appearing. EYES: The conjunctivae are clear. The pupils are round and reactive. EARS, NOSE, MOUTH AND THROAT: The nose is without any evidence of any deformity. NECK: The neck is nontender and supple. RESPIRATORY: Diminished breath sounds were noted throughout. CARDIOVASCULAR: Regular rate and rhythm was noted to auscultation. Systolic murmur was suggested. GASTROINTESTINAL: The abdomen is soft. Abdomen is nontender. MUSCULOSKELETAL/EXTREMITIES: There is no evidence of gross deformity full range of motion is noted in the hips and shoulders. SKIN: There is no obvious evidence of any rash. Pedal edema was noted bilaterally. NEUROLOGIC: Patient is awake alert and oriented x3 MEDICAL DECISION MAKING: The patient is a 67-year-old female who presented to the emergency department for an evaluation of a malfunctioning dialysis catheter. The patient had only a small amount of dialysis today and was sent to the emergency department for further evaluation. I discussed the patient's condition with the vascular surgery team but they are not available to replace the catheter at this time. The patient's electrolytes were pending. She did not appear to be in pulmonary edema on physical exam or by chest x-ray. The patient's condition appeared to be stable. Calls were put out to try to find where the patient could go for replacement of the catheter but while she was here she went into a wide-complex tachycardia. Upon checking on the patient she was found to be unresponsive. A CODE BLUE was called and CPR was started. The patient was placed on the youth nutritional monitor. She appeared to be in a wide-complex tachycardia. She received defibrillation multiple times. Once proper IV was established the patient also received calcium bicarbonate and amiodarone. The patient received a fluid bolus. I discussed her condition with her nephrology group as well as the small appliance assembly supervisor. Drier Belt Conveyor was able to place a temporary catheter. Arrangements are underway to try to get the patient to dialysis. At this time she remains with a narrow complex rhythm. I discussed her condition with the [facility] hospitalist group. Triage Nursing notes reviewed. Prior medical records reviewed. The patient's permacatheter placement report was reviewed from February 16. Vital Signs: reviewed and remarkable for hypotension. Differential diagnosis: Infection, dehydration, metabolic abnormality, hypo/hyperglycemia, electrolyte disturbance, anemia, hypoxia, cardiac sources, intracerebral event, toxicologic, neurologic, as well as other pathologies. ER treatment provided: See below Diagnostics interpreted by me: ECG: EKG was obtained in the emergency department. My interpretation is normal sinus rhythm at 98 bpm. There was no ectopy. Inferior and low lateral ST depressions were noted. LVH was suggested by voltage criteria. This was compared to a tracing from February 12, 2023. No changes were noted A second EKG was obtained in the emergency department after the patient suffered a cardiac arrest. My interpretation is sinus tachycardia at 104 bpm. There was no PVCs noted. Similar ST depression in the inferior and lateral leads was noted. This compares similar to the tracing initially obtained in the emergency department Cardiac Monitoring: An order was placed for continuous cardiac monitoring. The monitor shows a rate of 85 bpm with sinus rhythm. Laboratory studies: As stated above and show below. Imaging studies: See below. Radiographic imaging was reviewed by myself Consultation(s): I discussed this case with Claudia who is on her vascular surgery. They will have no vascular surgeon available at this time. I discussed this case with Dr. Garcia who is the patient's sas programmer remote. I discussed this case with Dr. Hogue who is on for the small appliance assembly supervisor group. ED COURSE: The patient suffered a cardiac arrest. I noted the patient to go into a wide- complex tachycardia on the youth nutritional monitor. When I went to check on her the patient was in cardiac arrest with a wide-complex tachycardia on the youth nutritional monitor. A CODE BLUE was called. The patient was defibrillated multiple times. The patient received resuscitation medications including amiodarone calcium and bicarb. The patient had return of pulses. She did receive CPR. The patient at this time is receiving amiodarone drip Procedures: none Critical Care: I have personally spent greater than 60 minutes of critical care time in the direct management of this patient. This includes bedside care, interpretation of diagnostic studies, and testing, discussion with consultants, patient, and family members, and other required patient management activities. This 60 minutes is in excess of all separately billable procedures. Past Med/Surg History Medical History Hyperkalemia Traumatic ulcer of left lower leg Osteopenia ESRD (end stage renal disease) Nocturnal hypoxemia Hx of Lyme disease GERD (gastroesophageal reflux disease) Vitamin D deficiency Diabetic nephropathy associated with type 2 diabetes mellitus Subclinical hypothyroidism TSH 5.180 in 01/2021 Dyslipidemia Diabetes type 2, uncontrolled Background diabetic retinopathy associated with type 2 diabetes mellitus Primary hyperparathyroidism CAD (coronary artery disease) Non obstructive (August 2009) per cardio records Morbid obesity Vocal cord paralysis syndrome Anemia History of CVA (cerebrovascular accident) (2016) Mitral regurgitation Hypertension Surgical History [place] teeth removed History of cataract surgery RT/LEFT History of vascular access device 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 (USING FOR DIALYSIS) Status post laparoscopic cholecystectomy (10/07/19) Difficult airway for intubation PT STATES HAS HAD VOCAL CORD PARAYSIS IN PAST Fiberoptic intubation used with 10/2019 lap odalis Hx of colonoscopy Hx of tubal ligation Hx of tonsillectomy Hx of eye surgery EYE MUSCLE REPAIR S/P cardiac catheterization OVER 10 YEARS AGO/NO STENTS Family History Father Family history of diabetes mellitus Aunt Family history of diabetes mellitus Uncle Family history of diabetes mellitus Brother Family history of diabetes mellitus Brother Family history of diabetes mellitus Grandmother (Maternal) Family hx of colon cancer Other Alzheimer disease Coronary heart disease No family history of adverse response to anesthesia Social History Smoking Status: Never smoker Tobacco Type: Cigarettes Second Hand Exposure: No; Do You Dip or Chew Tobacco: No; Hx Alcohol Use: No Hx Substance Use: No Preferred Language: Tamazight Communication Ability: Impaired Visual Impairment: Limited Hearing Ability: Normal Lead Sustainability Specialist Required: No Beliefs That Will Affect Care: Spiritual marital status: Current Living Situation: Rehab Current Living Situation Comment: [facility] Feels Safe at Home: Yes Diet: low salt and vegetarian caffeine: Yes Seatbelt Use: always Assistive Devices: Walker and Wheelchair Allergies Allergies Allergy/AdvReac Type Severity Reaction Status Date / Time dulaglutide [From Trulicity] Allergy Intermediate Hives Verified 02/09/23 07:26 atorvastatin AdvReac Intermediate Statin Verified 02/09/23 07:26 Cardiomyopathy erythromycin base AdvReac Intermediate Vomiting Verified 02/09/23 07:26 Home Meds Home Medications Medication Instructions Recorded Confirmed pantoprazole 40 mg tablet,delayed 40 mg PO QAM 09/16/22 02/12/23 release loperamide 2 mg capsule 2 mg PO Q4H PRN loose stool 10/24/22 02/12/23 vitamin B complex and vitamin C 0 cap PO QAM 10/24/22 02/12/23 no.20-folic acid 1 mg capsule (Renal Caps) bumetanide 2 mg tablet 1 mg PO BID 12/02/22 02/12/23 cinacalcet 30 mg tablet 30 mg PO 3XWK 12/02/22 02/12/23 clopidogrel 75 mg tablet (Plavix) 75 mg PO HS 02/03/23 02/12/23 gabapentin 100 mg capsule 100 mg PO BID 02/03/23 02/12/23 trazodone 50 mg tablet 25 mg PO HS 02/03/23 02/12/23 acetaminophen 325 mg tablet 650 mg PO Q6H PRN FEVER >100 02/12/23 02/12/23 (Tylenol) acetaminophen 325 mg tablet 650 mg PO Q6H PRN PAIN 1-10 02/12/23 02/12/23 (Tylenol) bacitracin 500 unit/gram topical 1 applic topical DAILY 02/12/23 02/12/23 ointment cholecalciferol (vitamin D3) 125 125 mcg PO HS 02/12/23 02/12/23 mcg (5,000 unit) capsule Previous Rx's Medication Instructions Recorded blood-glucose sensor (Zerve G6 #3 ea 06/24/21 Sensor device) blood-glucose transmitter (Dexcom #1 ea 06/24/21 G6 Transmitter device) blood-glucose meter (OneTouch #1 ea 11/25/21 Ultra2 Meter kit) lancets (OneTouch UltraSoft #200 ea 11/25/21 Lancets) BD Ultra-Fine Wgen Pen Needle 32 #500 ea 08/10/22 gauge x 5/32" (pen needle, diabetic) blood sugar diagnostic (OneTouch #200 ea 08/10/22 Ultra Test strips) sevelamer carbonate 800 mg tablet 800 mg PO TID #270 tabs 10/20/22 insulin aspart U-100 100 unit/mL 5 unit (0.05 mL) SC TIDM #15 mL 10/22/22 (3 mL) subcutaneous pen (Novolog FlexPen U-100 Insulin aspart) insulin glargine 100 unit/mL 25 unit (0.25 mL) subcut HS #10 mL 10/22/22 subcutaneous solution (Lantus U-100 Insulin) midodrine 5 mg tablet 10 mg (2 x 5 mg) PO 3XWK #90 tabs 02/10/23 polyethylene glycol 3350 17 gram 17 g PO DAILY PRN constipation #0 02/17/23 oral powder packet (Miralax) ea simethicone 80 mg chewable tablet 80 mg PO Q6H PRN abdominal 02/17/23 (Gas Relief (simethicone)) distention #0 tabs vitamin B complex and vitamin C 1 cap PO QAM #0 caps 02/17/23 no.20-folic acid 1 mg capsule (Renal Caps) Results & Data (ED) Vital Signs Vital Signs - 24 hr 02/24/23 10:49 02/24/23 12:11 02/24/23 12:44 Temperature 36.8 C Temperature Source Oral Pulse Rate 66 99 H 125 H Pulse Rate from SpO2 Sensor Respiratory Rate 16 Respiratory Effort / Characteristics Non-Labored Respiratory Depth Normal Blood Pressure 111/63 Blood Pressure Mean 79 Pulse Oximetry 95 Oxygen Delivery Method Room Air Oxygen Flow Rate Sepsis Recent Fever Within 48 Hours No Sepsis New/Unexplained Change in Mental Status N/A Sepsis Action Taken by Nursing No Action Required 02/24/23 13:06 02/24/23 13:10 02/24/23 13:20 Temperature Temperature Source Pulse Rate 90 93 H Pulse Rate from SpO2 Sensor 89 93 H Respiratory Rate 24 20 Respiratory Effort / Characteristics Respiratory Depth Blood Pressure 98/71 L Blood Pressure Mean 84 Pulse Oximetry 93 95 Oxygen Delivery Method Oxygen Flow Rate 4 4 Sepsis Recent Fever Within 48 Hours Sepsis New/Unexplained Change in Mental Status Sepsis Action Taken by Nursing 02/24/23 13:20 02/24/23 13:26 02/24/23 13:26 Temperature Temperature Source Pulse Rate 101 H Pulse Rate from SpO2 Sensor 93 H Respiratory Rate 21 Respiratory Effort / Characteristics Respiratory Depth Blood Pressure 114/70 118/70 Blood Pressure Mean 76 105 Pulse Oximetry 100 Oxygen Delivery Method Oxygen Flow Rate 4 Sepsis Recent Fever Within 48 Hours Sepsis New/Unexplained Change in Mental Status Sepsis Action Taken by Nursing 02/24/23 13:30 02/24/23 13:30 02/24/23 13:35 Temperature Temperature Source Pulse Rate 95 H 94 H Pulse Rate from SpO2 Sensor 94 H 94 H Respiratory Rate 20 18 Respiratory Effort / Characteristics Respiratory Depth Blood Pressure 98/73 L Blood Pressure Mean 82 Pulse Oximetry 99 100 Oxygen Delivery Method Oxygen Flow Rate 4 4 Sepsis Recent Fever Within 48 Hours Sepsis New/Unexplained Change in Mental Status Sepsis Action Taken by Nursing 02/24/23 13:35 02/24/23 13:40 02/24/23 13:40 Temperature Temperature Source Pulse Rate 90 Pulse Rate from SpO2 Sensor 90 Respiratory Rate 21 Respiratory Effort / Characteristics Respiratory Depth Blood Pressure 125/76 107/63 Blood Pressure Mean 81 89 Pulse Oximetry 97 Oxygen Delivery Method Oxygen Flow Rate 4 Sepsis Recent Fever Within 48 Hours Sepsis New/Unexplained Change in Mental Status Sepsis Action Taken by Nursing 02/24/23 13:45 02/24/23 13:45 02/24/23 13:50 Temperature Temperature Source Pulse Rate 90 Pulse Rate from SpO2 Sensor 90 Respiratory Rate 22 Respiratory Effort / Characteristics Respiratory Depth Blood Pressure 98/62 L 96/54 L Blood Pressure Mean 76 73 Pulse Oximetry 98 Oxygen Delivery Method Oxygen Flow Rate 4 Sepsis Recent Fever Within 48 Hours Sepsis New/Unexplained Change in Mental Status Sepsis Action Taken by Nursing 02/24/23 13:50 02/24/23 13:55 02/24/23 13:55 Temperature Temperature Source Pulse Rate 89 87 Pulse Rate from SpO2 Sensor 89 87 Respiratory Rate 22 22 Respiratory Effort / Characteristics Respiratory Depth Blood Pressure 95/66 L Blood Pressure Mean 75 Pulse Oximetry 97 97 Oxygen Delivery Method Oxygen Flow Rate 4 4 Sepsis Recent Fever Within 48 Hours Sepsis New/Unexplained Change in Mental Status Sepsis Action Taken by Assisted Medications Current Medication List: was personally reviewed by me Laboratory Data Attestation: I reviewed the patient's lab results. 02/24/23 11:17 02/24/23 12:51 Lab Results 02/24/23 02/24/23 02/24/23 Range/Units 11:17 11:17 12:15 WBC 10.73 (4.8-10.8) K/ul RBC 3.85 L (4.20-5.40) M/uL Hgb 11.5 L (12.0-16.0) g/dl Hct 36.9 L (37.0-47.0) % MCV 95.8 (80.0-100.0) fL MCH 29.9 (25.0-34.0) pg MCHC 31.2 L (32.0-36.0) g/dL RDW Std Deviation 55.5 H (36.4-46.3) fL RDW Coeff of Braeden 16.4 H (11.5-14.5) % Plt Count 279 (130-400) K/uL MPV 10.3 (9.4-12.4) fL Immature Gran % (Auto) 0.6 % Neut % (Auto) 77.6 % Lymph % (Auto) 12.8 % Tripp % (Auto) 6.5 % Eos % (Auto) 1.8 % Baso % (Auto) 0.7 % Neut # (Auto) 8.33 H (1.40-6.50) K/uL Lymph # (Auto) 1.37 (1.20-3.40) K/uL Tripp # (Auto) 0.70 H (0.11-0.59) K/uL Eos # (Auto) 0.19 (0.00-0.50) K/uL Baso # (Auto) 0.08 (0.00-0.20) K/uL Immature Gran # (Auto) 0.06 (0.01-0.20) K/uL PT 10.6 (9.0-12.0) Seconds INR 1.0 (0.9-1.1) APTT 23.2 (21.0-31.0) Seconds PTT Ratio 0.8 Sodium Cancelled Potassium Cancelled Chloride Cancelled Carbon Dioxide Cancelled Anion Gap Cancelled BUN Cancelled Creatinine Cancelled Est Cr Clr Drug Dosing Cancelled Est GFR ( Amer) Cancelled Est GFR (Non-Af Amer) Cancelled BUN/Creatinine Ratio Cancelled Glucose Cancelled Calcium Cancelled Total Bilirubin Cancelled AST Cancelled ALT Cancelled Alkaline Phosphatase Cancelled Troponin I High Sens 279.5 H* Cancelled (0-14) pg/ml Total Protein Cancelled Albumin Cancelled Globulin Cancelled Albumin/Globulin Ratio Cancelled 02/24/23 Range/Units 12:51 WBC (4.8-10.8) K/ul RBC (4.20-5.40) M/uL Hgb (12.0-16.0) g/dl Hct (37.0-47.0) % MCV (80.0-100.0) fL MCH (25.0-34.0) pg MCHC (32.0-36.0) g/dL RDW Std Deviation (36.4-46.3) fL RDW Coeff of Braeden (11.5-14.5) % Plt Count (130-400) K/uL MPV (9.4-12.4) fL Immature Gran % (Auto) % Neut % (Auto) % Lymph % (Auto) % Tripp % (Auto) % Eos % (Auto) % Baso % (Auto) % Neut # (Auto) (1.40-6.50) K/uL Lymph # (Auto) (1.20-3.40) K/uL Tripp # (Auto) (0.11-0.59) K/uL Eos # (Auto) (0.00-0.50) K/uL Baso # (Auto) (0.00-0.20) K/uL Immature Gran # (Auto) (0.01-0.20) K/uL PT (9.0-12.0) Seconds INR (0.9-1.1) APTT (21.0-31.0) Seconds PTT Ratio Sodium 136 Potassium 6.3 H* Chloride 95 L Carbon Dioxide 26 Anion Gap 15 H BUN 63 H Creatinine 6.17 H* Est Cr Clr Drug Dosing Not Reportable Est GFR ( Amer) 7.5 Est GFR (Non-Af Amer) 6.5 BUN/Creatinine Ratio 10.2 Glucose 500 H* Calcium 11.9 H Total Bilirubin 0.3 AST 104 H ALT 43 Alkaline Phosphatase 114 H Troponin I High Sens (0-14) pg/ml Total Protein 6.6 Albumin 2.8 L Globulin 3.8 Albumin/Globulin Ratio 0.7 L Administered Medications Amiodarone HCl/Dextrose (Nexterone / D5w) 360 mg in 200 mls @ 33.333 mls/hr IV .Q6H JACE Stop: 02/24/23 19:44 Last Admin: 02/24/23 13:43 Dose: 1 mg/min, 33.3 mls/hr Documented By: MISTY Co-signed By: NORMAN Discontinued Medications Amiodarone HCl/Dextrose (Amiodarone 360mg / 200ml D5w) Confirm Administered Dose 360 mg IV .STK-MED ONE Stop: 02/24/23 12:39 Last Admin: 02/24/23 13:43 Dose: Not Given Documented By: MISTY Amiodarone HCl (Amiodarone Hcl Inj 50 Mg/Ml 3 Ml Vial) Confirm Administered Dose 450 mg IV .STK-MED ONE Stop: 02/24/23 12:39 Last Admin: 02/24/23 13:43 Dose: Not Given Documented By: MISTY Amiodarone HCl (Amiodarone Hcl Inj 50 Mg/Ml 3 Ml Vial) 150 mg IV ONE ONE Stop: 02/24/23 13:46 Last Admin: 02/24/23 12:40 Dose: 150 mg Documented By: MISTY Co-signed By: NORMAN Sodium Chloride (Nss) 250 mls @ 999 mls/hr IV .Q16M ONE Stop: 02/24/23 14:22 Last Admin: 02/24/23 14:18 Dose: 999 mls/hr Documented By: VANITA Lorazepam (Lorazepam 1 Mg/1 Ml Syr Ed Inj Use) 0.5 mg IV ONE STA Stop: 02/24/23 13:29 Last Admin: 02/24/23 13:39 Dose: Not Given Documented By: MISTY Lorazepam (Lorazepam 1 Mg/1 Ml Syr Ed Inj Use) Confirm Administered Dose 1 mg .ROUTE .STK-MED ONE Stop: 02/24/23 13:31 Last Admin: 02/24/23 13:39 Dose: 0.5 mg Documented By: MISTY Ondansetron HCl (Ondansetron Inj 2 Mg/Ml 2 Ml Vial) Confirm Administered Dose 8 mg .ROUTE .STK-MED ONE Stop: 02/24/23 12:48 Last Admin: 02/24/23 13:40 Dose: Not Given Documented By: MISTY Ondansetron HCl (Ondansetron Inj 2 Mg/Ml 2 Ml Vial) 4 mg IV NOW STA Stop: 02/24/23 13:16 Last Admin: 02/24/23 13:39 Dose: 4 mg Documented By: MISTY Ondansetron HCl (Ondansetron Inj 2 Mg/Ml 2 Ml Vial) Confirm Administered Dose 4 mg .ROUTE .STK-MED ONE Stop: 02/24/23 13:16 Last Admin: 02/24/23 13:20 Dose: 4 mg Documented By: MISTY Imaging Data Attestation: I personally reviewed and interpreted this imaging study as follows: My Impression: 1 view chest x-ray was obtained in the emergency department. My interpretation is no free air or definite infiltrate, final report below. Radiologist's Impression: Chest X-Ray 02/24/23 11:39 XR chest 1V portable HISTORY: Status postdialysis. Shortness of breath. COMPARISON: Chest 02/12/2023. FINDINGS: Right jugular catheter terminates at the SVC. The heart remains enlarged. No pleural effusions. No pneumothorax. No focal lung consolidations to suggest a pneumonia. No evidence for pulmonary edema. There are calcifications within the aortic knob. IMPRESSION: No significant change compared to the prior study. No acute process. ACT 112: Negative or not required by law. Electronically signed by: Malik Montanez M.D. 02/24/2023 12:27 PM Chest X-Ray 02/24/23 13:47 SINGLE VIEW CHEST CLINICAL HISTORY: Left internal jugular central venous catheter placement. FINDINGS: An AP, portable, upright chest radiograph is compared to study dated 02/24/2023. Correlation is made with chest CT dated 07/15/2018. The examination is degraded by portable technique and patient rotation. A right internal jugular central venous catheter is unchanged in position. A left internal jugular central venous catheter is new from previous. The tip projects over the SVC. The heart is enlarged noting atherosclerotic calcification of the thoracic aorta. There is pulmonary vascular congestion. Chronic interstitial thickening is similar to previous. Scarring/atelectasis is noted at the lung bases. No airspace consolidation or large pleural effusion is identified. No pneumothorax is seen. The skeletal structures are osteopenic. The bony thorax is grossly intact. IMPRESSION: 1. A left internal jugular central venous catheter is new from previous. No pneumothorax is seen post procedure. 2. Cardiomegaly with pulmonary vascular congestion. ACT 112: Negative or not required by law. Electronically signed by: Donovan Marinelli M.D. 02/24/2023 2:14 PM Discharge Plan Visit Data Chief Complaint: Referred by Doctor Stated Complaint: CHEST PORTS NOT WORKING, LEFT FOOT CIRCULATION ED Provider: Spencer Goff Discharge Problem: Cardiac arrest, ESRD (end stage renal disease), Ventricular tachycardia, Acute hyperkalemia, Acute hyperglycemia, Non-ST elevation UT (NSTEMI) Patient Disposition: Being Evaluated by Hospitalist Forms Stand Alone Forms: [facility] Prescriptions Prescriptions: No Action (DME) Dexcom G6 Transmitter Device See Rx Instructions .Route Qty: 1 3RF Rx Instructions: As directed. (DME) Dexcom G6 Sensor Device See Rx Instructions .Route Qty: 3 5RF Rx Instructions: As directed. (DME) pen needle, diabetic [BD Ultra-Fine Gwen Pen Needle] 32 gauge x 5/32" needle See Rx Instructions .ROUTE .MEDSUPPLY Qty: 500 3RF Rx Instructions: Use 5 per day as directed with insulin injection (DME) OneTouch Ultra Test Strip See Rx Instructions .Route Qty: 200 5RF Rx Instructions: Check blood sugars QID and as needed sevelamer carbonate 800 mg tablet 800 mg PO TID Qty: 270 3RF Rx Instructions: must administer with a meal/food bumetanide 2 mg tablet 1 mg PO BID Rx Instructions: 1mg on Wednesday, , wed, and wednesday cinacalcet 30 mg tablet 30 mg PO 3XWK Rx Instructions: not on faxed list from [facility], unable to verify QHS QMWF (DME) blood-glucose meter [OneTouch Ultra2 Meter] Kit See Rx Instructions .Route Qty: 1 0RF Rx Instructions: As directed (DME) lancets [OneTouch UltraSoft Lancets] Misc See Rx Instructions .Route Qty: 200 5RF Rx Instructions: Check blood sugars QID and as needed insulin aspart U-100 [Novolog FlexPen U-100 Insulin] 100 unit/mL (3 mL) insulin pen 5 unit SC TIDM Qty: 15 5RF Rx Instructions: take 5 units with meals, TID insulin glargine [Lantus U-100 Insulin] 100 unit/mL solution 25 unit subcut HS Qty: 10 2RF loperamide 2 mg capsule 2 mg PO Q4H PRN (Reason: loose stool) Renal Caps 1 mg capsule 0 cap PO QAM Rx Instructions: not on faxed list from [facility], unable to verify gabapentin 100 mg Capsule 100 mg PO BID clopidogrel [Plavix] 75 mg tablet 75 mg PO HS trazodone 50 mg tablet 25 mg PO HS Rx Instructions: For insomnia midodrine 5 mg tablet 10 mg PO 3XWK Qty: 90 0RF Rx Instructions: Wednesday,wednesday, wednesday before dialysis pantoprazole 40 mg tablet,delayed release (DR/EC) 40 mg PO QAM bacitracin 500 unit/gram Ointment 1 applic TOPICAL DAILY acetaminophen [Tylenol] 325 mg Tablet 650 mg PO Q6H MDD 3GRAMS/24HRS PRN (Reason: PAIN 1-10) acetaminophen [Tylenol] 325 mg Tablet 650 mg PO Q6H MDD 3GRAMS/24HRS PRN (Reason: FEVER >100) cholecalciferol (vitamin D3) 125 mcg (5,000 unit) capsule 125 mcg PO HS Rx Instructions: take one capsule by mouth daily after HD for six weeks. polyethylene glycol 3350 [Miralax] 17 gram Powder In Packet 17 g PO DAILY PRN (Reason: constipation) Qty: 0 0RF simethicone [Gas Relief (simethicone)] 80 mg Tablet,Chewable 80 mg PO Q6H PRN (Reason: abdominal distention) Qty: 0 0RF Renal Caps 1 mg Capsule 1 cap PO QAM Qty: 0 0RF Referrals Referrals: Kaushik Mcgarry III, MD [Primary Care Provider] -
[2023-02-24 11:40] LABS: Basophils # (auto) 0.08 K/uL (0.00-0.20); Basophils % (auto) 0.7 %; Eosinophils # (auto) 0.19 K/uL (0.00-0.50); Eosinophils % (auto) 1.8 %; Hematocrit (blood only) 36.9 % (37.0-47.0); Hemoglobin 11.5 g/dl (12.0-16.0); Immature Granulocytes # (auto) 0.06 K/uL (0.01-0.20); Immature Granulocytes % (auto) 0.6 %; Lymphocytes # (auto) 1.37 K/uL (1.20-3.40); Lymphocytes % (auto) 12.8 %; Mean Corpuscular Hemoglobin 29.9 pg (25.0-34.0); Mean Corpuscular Hgb Conc 31.2 g/dL (32.0-36.0); Mean Corpuscular Volume 95.8 fL (80.0-100.0); Mean Platelet Volume 10.3 fL (9.4-12.4); Monocytes % (auto) 6.5 %; Neutrophils # (auto) 8.33 K/uL (1.40-6.50); Neutrophils % (auto) 77.6 %; Platelet Count 279 K/uL (130-400); RDW Coefficient of Variation 16.4 % (11.5-14.5); RDW Standard Deviation 55.5 fL (36.4-46.3); Red Blood Count 3.85 M/uL (4.20-5.40); White Blood Count 10.73 K/ul (4.8-10.8)
--- NOTE | 2023-02-24 12:29 | XRay Report ---
XR chest 1V portable HISTORY: Status postdialysis. Shortness of breath. COMPARISON: Chest 02/12/2023. FINDINGS: Right jugular catheter terminates at the SVC. The heart remains enlarged. No pleural effusi ons. No pneumothorax. No focal lung consolidations to suggest a pneumonia. No evidence for pulmonary edema. There are calcifications within the aortic knob. IMPRESSION: No significant change compared to the prior study. No acute process. ACT 112: Negative or not required by law. Electronically signed by: Malik Montanez M.D. 02/24/2023 12:27 PM
[2023-02-24] MEDS ORDERED: AMIODARONE HCL INJ 50 MG/ML 3 ML VIAL IV ONE ×2 (12:38→13:45)
[2023-02-24] MEDS ORDERED: AMIODARONE 360MG / 200ML D5W IV ONE (12:38)
[2023-02-24] MEDS ORDERED: ONDANSETRON INJ 2 MG/ML 2 ML VIAL ONE ×2 (12:47→13:15)
[2023-02-24 13:08] LABS: Partial Thromboplastin Ratio 0.8; Partial Thromboplastin Time 23.2 Seconds (21.0-31.0); Prothrombin Time 10.6 Seconds (9.0-12.0)
[2023-02-24] MEDS ORDERED: ONDANSETRON INJ 2 MG/ML 2 ML VIAL IV STA (13:15)
--- OUTSIDE RECORDS SUMMARY | 2023-02-24 13:20 | External Medical Summary | Summary of Care ---
Author Name Unknown Organization [facility] Address [address] [facility] [place] [address] Phone [phone] Care Team Providers Care Housing Assistant Name Role Phone Jesse Moser MD Primary Care Provi carlos Reason for Visit * Reason Onset Date Comments [facility]: Maintenance 02/19/2023 Encounter Details Date Type Department Care Team ([facility] st Contact Info) Description 02/19/2023 11:00 AM EST Scheduled Telephone [facility], [facility] [address] [facility] [place] [address] [place], [address] [facility] [place] [address] Allergies Active Allergy Reactions Criticality Noted Date Comments Azithromycin Nausea/vomiting 04/16/2011 Erythromycin Nausea/vomiting 01/12/2019 Dulaglutide Hives 01/12/2019 Ezetimibe Muscle pain 04/16/2011 documented as of this encounter (statuses as of 02/19/2023) Medications Medication Sig Dispensed Refills Start Date [...] (FLONASE) 50 MCG/ACT nasal spray Administer 1 [place] into nostril daily. 0 Active Sennosides (SENNA) [...] as of this encounter (statuses as of 02/19/2023) Active Problems Problem Noted Date Diagnosed Date [...] as of this encounter (statuses as of 02/19/2023) Resolved Problems Problem Noted Date Diagnosed Date Resolved Date UTI (urinary tract infection) 03/18/2015 07/25/2018 HTN, goal below 140/90 09/08/201008/11 Other primary cardiomyopathies 09/12/2009 09/12/2009 Dyslipidemia, goal LDL below 70 08/22/2009 02/10/2012 ACTIVE CASE MANAGEMENT 08/14/200901/20 Overview: Gladys Edwards RN Outpatient Cyber [employer] number: [phone] Fax number: [phone] documented as of this encounter (statuses as of 02/19/2023) Immunizations Name Administration Dates Next Due Pneumococcal [...] Telephone Encounter - Cely San CM - 02/19/2023 10:40 AM EST Per chart review pt dc back to centre care 02/17 after hospitalization at [facility]. Will f/u in one week for ricky San Call Specialist [facility] [email or web address] documented in this encounter Plan of Treatment Upcoming Encounters Date Type Department Care Team (Late st Contact Info) Description 02/24/2023 3:00 PM EST Scheduled Telephone [facility], [facility] [address] [facility] [address] [place] CM [address] [place] [address] Health Maintenance Due Date Last Done Comments DXA Scan 1955 Depression Screening 1967 Hepatitis C Screening 08/08/1973 Mammogram 1995 Cologuard 08/08/2000 Colonoscopy 08/08/2000 Colorectal Cancer Screening 08/08/2000 Fecal Occult Blood Test 08/08/2000 Sigmoidoscopy 08/08/2000 Diabetic Foot Exam 01/11/2013 01/12/2012, 1 , 12/17/2009 Albumin/Creatinine Ratio 07/07/2013 013, 01/12/2012, 04/15/2010, Additional history exists Hepatitis B (1 of 3 - Risk 3-dose series) 2015 Lipid Panel 07/07/2017 07/07/2012, 1012/2011, 08/15/2010, Additional history exists DTaP,Tdap,and Td Vaccines (2 - Td or Tdap) 2019 08/08/2009 HbA1c 04/08/2020 10/07/2019, 07/2012, 01/12/2012, Additional history exists Diabetic Eye Exam 05/25/2020 05/25/2019, , 02/21/2019, Additional history exists GFR 10/10/2020 10/11/2019, 10/2018, 08/01/2018, Additional history exists COVID-19 Vaccine (3 - season) 2022 07/24/2020, 07/03/2020 Influenza Vaccine (FLU shot) (#1) 2022 01/27/2019, 01/12/2012, 01/06/2011, Additional history exists Pneumococcal Vaccine: 65+ Years (3 - PPSV23 or PCV20) 01/24/2024 10/01/2022, 01/23/2019, 12/17/2009 Zoster Vaccines Completed 09/26/2019, 06/07/2019 GARDASIL-HPV IMMUNIZATION SERIES Aged Out No longer eligible based on patient's age to complete this topic MENINGOCOCCAL (MENACTRA/MENVEO) Aged Out No longer eligible based on patient's age to complete this topic documented as of this encounter Medical Devices Not on filedocumented as of this encounter Care Teams Housing Assistant Relationship Specialty Start Date End Date Jesse Moser MD [address] [place] [address] [place] [address] PCP - General Internal Medicine 08/01/18 documented as of this encounter
[2023-02-24 13:27] LABS: Alanine Aminotransferase 43 U/L (7-52); Albumin Globulin Ratio 0.7 (0.9-2); Albumin Level 2.8 gm/dl (3.4-5.0); Alkaline Phosphatase 114 U/L (34-104); Anion Gap 15 (3-11); Aspartate Aminotransferase 104 U/L (13-39); BUN Creatinine Ratio 10.2 (10-20); Bilirubin,Total 0.3 mg/dl (0.2-1.0); Blood Urea Nitrogen 63 mg/dl (6-23); Calcium 11.9 mg/dl (8.6-10.3); Carbon Dioxide 26 mmol/L (21-32); Chloride 95 mmol/L (98-107); Est GFR (African American) 7.5 ml/min; Est GFR (Non-African American) 6.5 ml/min; Globulin 3.8 gm/dl (2.5-4.0); Glucose 500 mg/dl (70-99(Fasting)); Potassium 6.3 mmol/L (3.5-5.1); Sodium 136 mmol/L (136-145); Total Protein 6.6 gm/dl (6.0-8.3)
[2023-02-24] MEDS ORDERED: LORazepam 1 MG/1 ML SYR ED Inj Use IV STA (13:28)
[2023-02-24] MEDS ORDERED: LORazepam 1 MG/1 ML SYR ED Inj Use ONE (13:30)
[2023-02-24] MEDS ORDERED: 0.2 MICRON FILTER SET 1 EACH IV ONE (13:45)
[2023-02-24] MEDS ORDERED: AMIODARONE / D5W 360 MG/200 ML BAG IV SCH ×2 (13:45)
--- NOTE | 2023-02-24 14:06 | History & Physical Report ---
Date of Service February 24, 2023 Assessment & Plan (1) Cardiac arrest: Plan: Wide-complex tachycardia, cardiac arrest S/p bicarb, calcium, multiple rounds of defibrillation, CPR with ROSC Suspect due to hyperkalemia and electrolyte abnormalities. Patient did not have anginal symptoms or chest pain prior, low suspicion for ischemic etiology Troponin 279, trended EKG consistent with VT, subsequent return to sinus tachycardia on repeat EKG Follows with cardiology for history of anterior apical NC, CAD. She is continued on metoprolol succinate with past EF of 25-30%, and takes midodrine for hypotension around dialysis Last echo 12/2022: EF 25-30%, anterior/septal/apical akinesis History of suspected nonischemic cardiomyopathy in the past and Takotsubo 2010 Minimal CAD on cardiac catheterization in 2009 Amiodarone gtt. continued. Cardiology consulted. (2) Hyperkalemia: Plan: Recieved bicarb and calcium and fluids. 7 units insulin ordered, D50 deferred due to concurrent hyperglycemia. At time of gtt initiation second insulin bolu sordered Patient taken emergently to dialysis 1g cagluc + 1 amp bicarb given in ER, on admit 1 additional dose of calcium gluconate given for cardiac protection in addition to insulin (3) Encounter for dialysis and dialysis catheter care: (4) Diabetes type 2, uncontrolled: Plan: - Acute hyperglycemia w/ fluid overload Patient is on 25 units glargine in the evening last taken 02/23, and aspart 5 units 3 times daily with meals. - Regular insulin 7 units IV ordered. -BSG repeat >500, insulin GTT + bolus ordered - When BSG <250/bicarb wnl/ph wnl --> transition to SQ (5) ESRD (end stage renal disease): Plan: Nephrology consulted Hemodialysis dependent, not on an uric. Home Bumex continued. (6) CAD (coronary artery disease): Plan: As noted Plan DVT prophylaxis: Heparin 3 times daily due to renal failure Disposition: ICU CODE STATUS: Full code Diet: Heart healthy, renal/dialysis History of Present Illness Primary Care Provider: Kaushik Mcgarry MD Gladys Dunlap is a 67-year-old female who presented from the emergency department from dialysis and while in the ER went into a wide-complex tachycardia and was subsequently found to be pulseless, CODE BLUE was called . Patient underwent defibrillation several times, administration of amiodarone, calcium, and bicarbonate and had subsequent ROSC. She was placed on an amiodarone drip and recommended for admission. Patient was recently admitted to the hospital from 02/12/2023 - 02/17/2023 3 for ESRD with malfunction of dialysis catheter which was subsequently replaced on February 16 with successful dialysis on 02/16 1115. She has a history of peripheral arterial disease and bilateral lower extremity pain; arteriogram was performed 02/09 without indication for surgical intervention and PT/DP pulses we re present bilaterally to Doppler. Patient also has a history of Takotsubo cardiomyopathy in 2009, subsequently with an LVEF of 25-30% and moderate aortic stenosis. Per ER SIgnout: Cardiac Arrest with hx of ESRD on dialysis. Had difficulty with cateter at dialysis and was referred to ER for vascular evaluation of her dialysis line. Was pending transfer --> wide complex tachycardia --> Ca/Bicarb/ Tunnelled catheter malfunctioned. Vascular access obtained by temporary catheter placed by ICU -> Dr. Garcia consulted --> Room angela and dialysis in room. Not appropriate for HD unit. Not recommended for transfer at this time due to need for emergent dialysis. Has had WEight gain, dietary nonadherance as outpatient. In the past pt has had DMC, although defers to for much of decision-making. Also has hx of CAD, PAD,Distal LE ischemia chronically Per Pt and : Azucena was initially referred due to difficulty during dialysis accessing her right port. She reports she felt otherwise well and has not had fever/chills/sweats/lightheadedness/dizziness preceding this. She notes her blood pressure does tend to be lower around dialysis for which she receives mido drine. While in the ER she notes that she had a feeling of fullness and nausea, although no chest pain/chest pressure/palpitations/shortness of breath shortly before her code. She feels tired at bedside assessment, continues to deny chest pain or chest pressure. She reports she still makes urine but this tends to be dark. BP is typically 90s/60s as outpatient per . Drops to 60s on dialys is days which is offset by midodrine just on dialysis days. Hx of hyperglycemia. Did recieve her short acting this AM, but she takes her long acting glargine at night. Did get this last evening. Not sure if she is still on bumex. She reports a history of heart problems in the past and heart failure, she reports she is not very active so does not know if she has chest pain with exertion or not. reports that she is full code and would want any and all procedures available to extend her life. Medical History: Reviewed Medications: Reviewed Surgical History: Reviewed Family history: Reviewed Allergies: Reviewed Social History: No tobacco/etoh use Code Status: Full Allergies Allergy/AdvReac Type Severity Reaction Status Date / Time dulaglutide [From [facility]] Allergy Intermediate Hives Verified 02/09/23 07:26 atorvastatin AdvReac Intermediate Statin Verified 02/09/23 07:26 Cardiomyopathy erythromycin base AdvReac Intermediate Vomiting Verified 02/09/23 07:26 Home Medications Medication Instructions Recorded Confirmed Type blood-glucose sensor (Dexcom G6 #3 ea 06/24/21 10/22/22 Rx Sensor device) blood-glucose transmitter (Dexcom #1 ea 06/24/21 10/22/22 Rx G6 Transmitter device) blood-glucose meter (OneTouch #1 ea 11/25/21 10/22/22 Rx Ultra2 Meter kit) lancets (OneTouch UltraSoft #200 ea 11/25/21 10/22/22 Rx Lancets) BD Ultra-Fine Gwen Pen Needle 32 #500 ea 08/10/22 10/22/22 Rx gauge x 5/32" (pen needle, diabetic) blood sugar diagnostic (OneTouch #200 ea 08/10/22 10/22/22 Rx Ultra Test strips) pantoprazole 40 mg tablet,delayed 40 mg PO HS 09/16/22 02/24/23 History release insulin aspart U-100 100 unit/mL 5 unit (0.05 mL) SC TIDM #15 mL 10/22/22 02/24/23 Rx (3 mL) subcutaneous pen (Novolog FlexPen U-100 Insulin aspart) insulin glargine 100 unit/mL 25 unit (0.25 mL) subcut HS #10 mL 10/22/22 02/24/23 Rx subcutaneous solution (Lantus U-100 Insulin) loperamide 2 mg capsule 2 mg PO Q4H PRN loose stool 10/24/22 02/24/23 History vitamin B complex and vitamin C 1 cap PO QAM 10/24/22 02/24/23 History no.20-folic acid 1 mg capsule (Renal Caps) bumetanide 2 mg tablet 1 mg PO BID 12/02/22 02/24/23 History cinacalcet 30 mg tablet 30 mg PO 3XWK 12/02/22 02/24/23 History clopidogrel 75 mg tablet (Plavix) 75 mg PO HS 02/03/23 02/24/23 History gabapentin 100 mg capsule 100 mg PO . @ 0830, 2030 02/03/23 02/24/23 History trazodone 50 mg tablet 25 mg PO HS 02/03/23 02/24/23 History midodrine 5 mg tablet 10 mg (2 x 5 mg) PO 3XWK #90 tabs 02/10/23 02/24/23 Rx acetaminophen 325 mg tablet 650 mg PO Q6H PRN FEVER >100 02/12/23 02/24/23 History (Tylenol) acetaminophen 325 mg tablet 650 mg PO Q6H PRN PAIN 1-10 02/12/23 02/24/23 History (Tylenol) cholecalciferol (vitamin D3) 125 125 mcg PO HS 02/12/23 02/24/23 History mcg (5,000 unit) capsule polyethylene glycol 3350 17 gram 17 g PO DAILY PRN constipation #0 02/17/23 02/24/23 Rx oral powder packet (Miralax) ea simethicone 80 mg chewable tablet 80 mg PO Q6H PRN abdominal 02/17/23 02/24/23 Rx (Gas Relief (simethicone)) distention #0 tabs Humalog Injection Solution See Rx Instructions .Route .COMPLEX 02/24/23 02/24/23 History aluminum-mag hydroxide-simethicone 30 ml PO Q6H PRN Heartburn 02/24/23 02/24/23 History 400 mg-400 mg-40 mg/5 mL oral susp bacitracin 500 unit/gram topical 1 applic topical DAILY 02/24/23 02/24/23 Histor y ointment bisacodyl 10 mg rectal suppository 10 mg NE DAILY PRN Constipation 02/24/23 02/24/23 History (Dulcolax (bisacodyl)) menthol 0.44 %-zinc oxide 20.6 % 1 applic topical DAILY 02/24/23 02/24/23 History topical ointment (Calmoseptine) oxycodone 5 mg tablet 5 mg PO Q6H PRN pain 9-10 02/24/23 02/24/23 History sevelamer carbonate 800 mg tablet 800 mg PO . TUE, JENNIFER, SAT, SUN 02/24/23 02/24/23 History sodium phosphates 19 gram-7 118 ml NE DAILY PRN Constipation 02/24/23 02/24/23 History gram/118 mL enema (Enema) terbinafine HCl 1 % topical cream 1 applic topical BID 02/24/23 02/24/23 History Past Med/Surg History Medical History Hyperkalemia Traumatic ulcer of left lower leg Osteopenia ESRD (end stage renal disease) Nocturnal hypoxemia Hx of Lyme disease GERD (gastroesophageal reflux disease) Vitamin D deficiency Diabetic nephropathy associated with type 2 diabetes mellitus Subclinical hypothyroidism TSH 5.180 in 01/2021 Dyslipidemia Diabetes type 2, uncontrolled Background diabetic retinopathy associated with type 2 diabetes mellitus Primary hyperparathyroidism CAD (coronary artery disease) Non obstructive (August 2009) per cardio records Morbid obesity Vocal cord paralysis syndrome Anemia History of CVA (cerebrovascular accident) (2016) Mitral regurgitation Hypertension Surgical History [place] teeth removed History of cataract surgery RT/LEFT History of vascular access device 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 (USING FOR DIALYSIS) Status post laparoscopic cholecystectomy (10/07/19) Difficult airway for intubation PT STATES HAS HAD VOCAL CORD PARAYSIS IN PAST Fiberoptic intubation used with 10/2019 lap odalis Hx of colonoscopy Hx of tubal ligation Hx of tonsillectomy Hx of eye surgery EYE MUSCLE REPAIR S/P cardiac catheterization OVER 10 YEARS AGO/NO STENTS Family History Father Family history of diabetes mellitus Aunt Family history of diabetes mellitus Uncle Family history of diabetes mellitus Brother Family history of diabetes mellitus Brother Family history of diabetes mellitus Grandmother (Maternal) Family hx of colon cancer Other Alzheimer disease Coronary heart disease No family history of adverse response to anesthesia Social History Smoking Status: Never smoker Tobacco Type: Cigarettes Second Hand Exposure: No; Do You Dip or Chew Tobacco: No; Tobacco Cessation Education Requested by Patient: No Hx Alcohol Use: No Hx Substance Use: No Preferred Language: Mongolian Communication Ability: Effective Visual Impairment: Limited Hearing Ability: Normal Supervisor Drilling And Shooting Required: No Beliefs That Will Affect Care: None marital status: Current Living Situation: [facility] Current Living Situation Comment: [facility] Other Information That Helps Us Care for You: No Feels Safe at Home: Yes Safety Concerns: Feels Safe At This Time Diet: low salt and vegetarian caffeine: Yes Seatbelt Use: always Assistive Devices: Walker and Wheelchair Physical Exam Physical Exam: General: A&Ox3. NAD. Cooperative. Access: Right tunneled catheter in place, not working per pt. No warmth/erythema/tendreness. L IJ in place, C/D/I HEENT: Atraumatic, normocephalic. Pulm: Diminished, no rales/wheezing is appreciated symmetrical chest rise. No increased work of breathing. No respiratory distress. Cardiac: RRR, -mrg. Radial pulses intact and symmetrical. Abdominal: Nontender, nondistended, soft. BS present. Extremities: Bilateral lower extremity edema present Results & Data Results & Data Vital Signs (Past 12 Hours) Vital Signs Temp Pulse Resp BP Pulse Ox O2 Del Method O2 Flow Rate 02/24/23 13:45 90 22 98 4 02/24/23 13:45 98/62 L 02/24/23 13:40 107/63 02/24/23 13:40 90 21 97 4 02/24/23 13:35 125/76 02/24/23 13:35 94 H 18 100 4 02/24/23 13:30 98/73 L 02/24/23 13:30 95 H 20 99 4 02/24/23 13:26 118/70 02/24/23 13:26 101 H 21 100 4 02/24/23 13:20 114/70 02/24/23 13:20 93 H 20 95 4 02/24/23 13:10 90 24 93 4 02/24/23 13:06 98/71 L 02/24/23 12:44 125 H 02/24/23 12:11 99 H 02/24/23 10:49 36.8 C 66 16 111/63 95 Room Air PG Care Time/CCT Total # of Minutes Spent Total Time Spent with Patient: Total time spent is greater than 50% in coordination of care (as documented) at patient's floor/unit and/or counseling patient: Coding Level of Care Code 86520 INT INP/OBS CARE 3/75MIN Diagnoses Cardiac arrest I46.9 Hyperkalemia E87.5 Encounter for dialysis and dialysis catheter care Z99.2 Uncontrolled type 2 diabetes mellitus with hyperglycemia E11.65 Glycemic state: with hyperglycemia ESRD (end stage renal disease) N18.6 CAD (coronary artery disease) I25.10 (4) Diabetes type 2, uncontrolled Glycemic state: with hyperglycemia Qualified Code(s): E11.65 - Type 2 diabetes mellitus with hyperglycemia
[2023-02-24] MEDS ORDERED: SODIUM CHLORIDE 0.9% 250 ML IV ONE (14:07)
--- NOTE | 2023-02-24 14:16 | XRay Report ---
SINGLE VIEW CHEST CLINICAL HISTORY: Left internal jugular central venous catheter placement. FINDINGS: An AP, portable, upright chest radiograph is compared to study dated 02/24/2023. Correlatio n is made with chest CT dated 07/15/2018. The examination is degraded by portable technique and patien t rotation. A right internal jugular central venous catheter is unchanged in position. A left chemical engineering intern al jugular central venous catheter is new from previous. The tip projects over the SVC. The heart is enlarged noting atherosclerotic calcification of the thoracic aorta. There is pulmonary vascular julienne estion. Chronic interstitial thickening is similar to previous. Scarring/atelectasis is noted at the lung bases. No airspace consolidation or large pleural effusion is identified. No pneumothorax is see n. The skeletal structures are osteopenic. The bony thorax is grossly intact. IMPRESSION: 1. A left internal jugular central venous catheter is new from previous. No pneumothorax is seen post procedure. 2. Cardiomegaly with pulmonary vascular congestion. ACT 112: Negative or not required by law. Electronically signed by: Donovan Marinelli M.D. 02/24/2023 2:14 PM
--- NOTE | 2023-02-24 14:28 | Critical Care Consultation ---
Date of Consultation February 24, 2023 Assessment & Plan (1) Hyperkalemia: (2) Encounter for dialysis and dialysis catheter care: (3) Fluid overload: (4) Cardiac arrest: Plan Impression: 67-year-old female with end-stage renal disease on hemodialysis presented today from dialysis due to a nonfunctional dialysis catheter. The patient suffered a wide-complex cardiac arrest in the emergency room. She has had return of spontaneous circulation and is currently awake alert and conversant with no significant sequelae. She is in need of temporary dialysis access. She does have hyperkalemia, mildly elevated troponin, and other electrolyte abnormalities. Recommendations: 1. Neurologic: No current issues. Continue to follow at this point in time. Hold any medications potentially contributing to electrolyte imbalance or QT prolongation. 2. Cardiovascular: Suspect cardiac arrest due to electrolyte imbalance. Echocardiogram has been ordered and cardiology consultation is pending. Do not suspect an ischemic event. Continue to optimize electrolytes and will work on volume status with dialysis. The patient reportedly has issues with hypotension with dialysis and may require pressor support including midodrine, Florinef, and potentially other blood pressure supportive medications. 3. Pulmonary: Mild vascular congestion on chest x-ray. Will follow with dialysis and ultrafiltration. Oxygen as needed to maintain oxygen saturations at or above 88%. 4. Renal: End-stage renal disease on dialysis: Temporary HD line will be placed. The patient will need to have vascular or interventional radiology follow-up for revision/replacement of her permanent line. Reportedly nephrology plans on arranging for urgent hemodialysis on arrival to the intensive care unit. Disposition per primary admitting service. 5. ID: No current issues. Continue to follow clinically. 6. Endocrine: Glycemic control per ICU protocol. The patient has known diabetes and glucose intolerance. 7. Heme-onc: No current issues. 8. GI: No current issues. Diet as tolerated. Disposition: Per primary admitting service and nephrology. The above recommendations and plan were discussed with the patient at bedside as well as with her family. History of Present Illness History of Present Illness Asked by ER staff to evaluate this patient for temporary hemodialysis access. History is obtained from discussion with the patient as well as discussion with the ER staff and review the electronic medical record. The patient is a 67-year-old female with end-stage renal disease on dialysis. She was dismissed from the hospital 02/17/2023 where she had hypotension with dialysis. Her dialysis port was problematic at that point time. She was seen by vascular surgery and had the catheter exchanged over a wire. She reportedly presented to dialysis today however they were unable to get adequate flow and she was referred to the emergency room. While in the emergency room the patient suffered a cardiac arrest. She had a wide-complex tachycardia and had multiple episodes of defibrillation and received amiodarone, calcium and bicarb. Her labs are currently pending. There is no vascular surgery in house to revise her catheter so I was asked to place a temporary HD catheter to assist with urgent dialysis. On evaluation the patient is awake alert and conversant. Her vital signs are acceptable. She is complaining of some mild nausea. She consented to the placement of a temporary HD cath Allergies Allergy/AdvReac Type Severity Reaction Status Date / Time dulaglutide [From [facility]] Allergy Intermediate Hives Verified 02/09/23 07:26 atorvastatin AdvReac Intermediate Statin Verified 02/09/23 07:26 Cardiomyopathy erythromycin base AdvReac Intermediate Vomiting Verified 02/09/23 07:26 Home Medications Medication Instructions Recorded Confirmed Type blood-glucose sensor (Dexcom G6 #3 ea 06/24/21 10/22/22 Rx Sensor device) blood-glucose transmitter (Dexcom #1 ea 06/24/21 10/22/22 Rx G6 Transmitter device) blood-glucose meter (OneTouch #1 ea 11/25/21 10/22/22 Rx Ultra2 Meter kit) lancets (OneTouch UltraSoft #200 ea 11/25/21 10/22/22 Rx Lancets) BD Ultra-Fine Gwen Pen Needle 32 #500 ea 08/10/22 10/22/22 Rx gauge x 5/32" (pen needle, diabetic) blood sugar diagnostic (OneTouch #200 ea 08/10/22 10/22/22 Rx Ultra Test strips) pantoprazole 40 mg tablet,delayed 40 mg PO QAM 09/16/22 02/12/23 History release sevelamer carbonate 800 mg tablet 800 mg PO TID #270 tabs 10/20/22 02/12/23 Rx insulin aspart U-100 100 unit/mL 5 unit (0.05 mL) SC TIDM #15 mL 10/22/22 02/12/23 Rx (3 mL) subcutaneous pen (Novolog FlexPen U-100 Insulin aspart) insulin glargine 100 unit/mL 25 unit (0.25 mL) subcut HS #10 mL 10/22/22 02/12/23 Rx subcutaneous solution (Lantus U-100 Insulin) loperamide 2 mg capsule 2 mg PO Q4H PRN loose stool 10/24/22 02/12/23 History vitamin B complex and vitamin C 0 cap PO QAM 10/24/22 02/12/23 History no.20-folic acid 1 mg capsule (Renal Caps) bumetanide 2 mg tablet 1 mg PO BID 12/02/22 02/12/23 History cinacalcet 30 mg tablet 30 mg PO 3XWK 12/02/22 02/12/23 History clopidogrel 75 mg tablet (Plavix) 75 mg PO HS 02/03/23 02/12/23 History gabapentin 100 mg capsule 100 mg PO BID 02/03/23 02/12/23 History trazodone 50 mg tablet 25 mg PO HS 02/03/23 02/12/23 History midodrine 5 mg tablet 10 mg (2 x 5 mg) PO 3XWK #90 tabs 02/10/23 02/12/23 Rx acetaminophen 325 mg tablet 650 mg PO Q6H PRN FEVER >100 02/12/23 02/12/23 History (Tylenol) acetaminophen 325 mg tablet 650 mg PO Q6H PRN PAIN 1-10 02/12/23 02/12/23 History (Tylenol) bacitracin 500 unit/gram topical 1 applic topical DAILY 02/12/23 02/12/23 History ointment cholecalciferol (vitamin D3) 125 125 mcg PO HS 02/12/23 02/12/23 History mcg (5,000 unit) capsule polyethylene glycol 3350 17 gram 17 g PO DAILY PRN constipation #0 02/17/23 Rx oral powder packet (Miralax) ea simethicone 80 mg chewable tablet 80 mg PO Q6H PRN abdominal 02/17/23 Rx (Gas Relief (simethicone)) distention #0 tabs vitamin B complex and vitamin C 1 cap PO QAM #0 caps 02/17/23 Rx no.20-folic acid 1 mg capsule (Renal Caps) Patient History Medical History Hyperkalemia Traumatic ulcer of left lower leg Osteopenia ESRD (end stage renal disease) Nocturnal hypoxemia Hx of Lyme disease GERD (gastroesophageal reflux disease) Vitamin D deficiency Diabetic nephropathy associated with type 2 diabetes mellitus Subclinical hypothyroidism TSH 5.180 in 01/2021 Dyslipidemia Diabetes type 2, uncontrolled Background diabetic retinopathy associated with type 2 diabetes mellitus Primary hyperparathyroidism CAD (coronary artery disease) Non obstructive (August 2009) per cardio records Morbid obesity Vocal cord paralysis syndrome Anemia History of CVA (cerebrovascular accident) (2017) Mitral regurgitation Hypertension Surgical History Perrin teeth removed History of cataract surgery RT/LEFT History of vascular access device 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 (USING FOR DIALYSIS) Status post laparoscopic cholecystectomy (10/07/19) Difficult airway for intubation PT STATES HAS HAD VOCAL CORD PARAYSIS IN PAST Fiberoptic intubation used with 10/2019 lap odalis Hx of colonoscopy Hx of tubal ligation Hx of tonsillectomy Hx of eye surgery EYE MUSCLE REPAIR S/P cardiac catheterization OVER 10 YEARS AGO/NO STENTS Family History Father Family history of diabetes mellitus Aunt Family history of diabetes mellitus Uncle Family history of diabetes mellitus Brother Family history of diabetes mellitus Brother Family history of diabetes mellitus Grandmother (Maternal) Family hx of colon cancer Other Alzheimer disease Coronary heart disease No family history of adverse response to anesthesia Social History Smoking Status: Never smoker Tobacco Type: Cigarettes Second Hand Exposure: No; Do You Dip or Chew Tobacco: No; Hx Alcohol Use: No Hx Substance Use: No Preferred Language: Colombian Communication Ability: Impaired Visual Impairment: Limited Hearing Ability: Normal Air Pumper Required: No Beliefs That Will Affect Care: Spiritual marital status: Current Living Situation: Rehab Current Living Situation Comment: [facility] Feels Safe at Home: Yes Diet: low salt and vegetarian caffeine: Yes Seatbelt Use: always Assistive Devices: Walker and Wheelchair Review of Systems Review of Systems: Please refer to admission H&P and ER notes. No additions or deletions Physical Exam Constitutional: WD/WN, vitals as above no acute distress Eyes: + anicteric sclerae Neck: normal visual inspection Respiratory: no respiratory distress Auscultation: + diminished lung sounds; no crackles and no wheezes Cardiovascular: Rate/Rhythm: regular rate and regular rhythm Heart Sounds: normal S1 and normal S2 Extremities: + edema Skin: + turgor decreased and + skin atrophy Neurologic: no focal motor deficits Psychiatric: Orientation: alert and oriented x 3 Results & Data Results & Data Vital Signs (Past 12 Hours) Vital Signs Temp Pulse Resp BP Pulse Ox O2 Del Method O2 Flow Rate 02/24/23 13:55 95/66 L 02/24/23 13:55 87 22 97 4 02/24/23 13:50 89 22 97 4 02/24/23 13:50 96/54 L 02/24/23 13:45 90 22 98 4 02/24/23 13:45 98/62 L 02/24/23 13:40 107/63 02/24/23 13:40 90 21 97 4 02/24/23 13:35 125/76 02/24/23 13:35 94 H 18 100 4 02/24/23 13:30 98/73 L 02/24/23 13:30 95 H 20 99 4 02/24/23 13:26 118/70 02/24/23 13:26 101 H 21 100 4 02/24/23 13:20 114/70 02/24/23 13:20 93 H 20 95 4 02/24/23 13:10 90 24 93 4 02/24/23 13:06 98/71 L 02/24/23 12:44 125 H 02/24/23 12:11 99 H 02/24/23 10:49 36.8 C 66 16 111/63 95 Room Air Critical Care Results & Data Vital Signs (Past 12 Hours) Vital Signs Temp Pulse Resp BP Pulse Ox O2 Del Method O2 Flow Rate 02/24/23 13:55 95/66 L 02/24/23 13:55 87 22 97 4 02/24/23 13:50 89 22 97 4 02/24/23 13:50 96/54 L 02/24/23 13:45 90 22 98 4 02/24/23 13:45 98/62 L 02/24/23 13:40 107/63 02/24/23 13:40 90 21 97 4 02/24/23 13:35 125/76 02/24/23 13:35 94 H 18 100 4 02/24/23 13:30 98/73 L 02/24/23 13:30 95 H 20 99 4 02/24/23 13:26 118/70 02/24/23 13:26 101 H 21 100 4 02/24/23 13:20 114/70 02/24/23 13:20 93 H 20 95 4 02/24/23 13:10 90 24 93 4 02/24/23 13:06 98/71 L 02/24/23 12:44 125 H 02/24/23 12:11 99 H 02/24/23 10:49 36.8 C 66 16 111/63 95 Room Air Lab & Micro Results (Past 24 Hours) RBC 3.85 M/uL (4.20-5.40) L 02/24/23 WBC 10.73 K/ul (4.8-10.8) 02/24/23 Hgb 11.5 g/dl (12.0-16.0) L 02/24/23 Hct 36.9 % (37.0-47.0) L 02/24/23 MCV 95.8 fL (80.0-100.0) 02/24/23 MCH 29.9 pg (25.0-34.0) 02/24/23 MCHC 31.2 g/dL (32.0-36.0) L 02/24/23 RDW Standard Deviation 55.5 fL (36.4-46.3) H 02/24/23 RDW Coefficient of Variation 16.4 % (11.5-14.5) H 02/24/23 Plt Count 279 K/uL (130-400) 02/24/23 MPV 10.3 fL (9.4-12.4) 02/24/23 Neutrophils (%) (Auto) 77.6 % 02/24/23 Lymphocytes (%) (Auto) 12.8 % 02/24/23 Monocytes # (Auto) 0.70 K/uL (0.11-0.59) H 02/24/23 Eosinophils # (Auto) 0.19 K/uL (0.00-0.50) 02/24/23 Immature Granulocyte % (Auto) 0.6 % 02/24/23 Neutrophils # (Auto) 8.33 K/uL (1.40-6.50) H 02/24/23 Lymphocytes # (Auto) 1.37 K/uL (1.20-3.40) 02/24/23 Monocytes # (Auto) 0.70 K/uL (0.11-0.59) H 02/24/23 Eosinophils # (Auto) 0.19 K/uL (0.00-0.50) 02/24/23 Basophils # (Auto) 0.08 K/uL (0.00-0.20) 02/24/23 Immature Granulocyte # (Auto) 0.06 K/uL (0.01-0.20) 3 Na 136 mmol/L (136-145) 02/24/23 K 6.3 mmol/L (3.5-5.1) H* 02/24/23 Cl 95 mmol/L (98-107) L 02/24/23 CO2 26 mmol/L (21-32) 02/24/23 Anion Gap 15 (3-11) H 02/24/23 BUN 63 mg/dl (6-23) H 02/24/23 Creatinine 6.17 mg/dl (0.6-1.2) H* 02/24/23 Estimated GFR ( Amer) 7.5 ml/min 02/24/23 Estimated GFR (Non-Af Amer) 6.5 ml/min 02/24/23 BUN/Creatinine Ratio 10.2 (10-20) 02/24/23 Glu 500 mg/dl (70-99(Fasting)) H* 02/24/23 Ca 11.9 mg/dl (8.6-10.3) H 02/24/23 Total Bilirubin 0.3 mg/dl (0.2-1.0) 02/24/23 AST 104 U/L (13-39) H 02/24/23 ALT 43 U/L (7-52) 02/24/23 Alkaline Phosphatase 114 U/L (34-104) H 02/24/23 TP 6.6 gm/dl (6.0-8.3) 02/24/23 Albumin 2.8 gm/dl (3.4-5.0) L 02/24/23 Globulin 3.8 gm/dl (2.5-4.0) 02/24/23 Albumin/Globulin Ratio 0.7 (0.9-2) L 02/24/23 Calcium Level 11.9 mg/dl (8.6-10.3) H 02/24/23 12:51 Prothromb Time International Ratio 1.0 (0.9-1.1) 02/24/23 12:1 5 Diagnostic Findings (Past 24 Hours) Chest X-Ray 02/24/23 11:39 XR chest 1V portable HISTORY: Status postdialysis. Shortness of breath. COMPARISON: Chest 02/12/2023. FINDINGS: Right jugular catheter terminates at the SVC. The heart remains enlarged. No pleural effusions. No pneumothorax. No focal lung consolidations to suggest a pneumonia. No evidence for pulmonary edema. There are calcifications within the aortic knob. IMPRESSION: No significant change compared to the prior study. No acute process. ACT 112: Negative or not required by law. Electronically signed by: Malik Montanez M.D. 02/24/2023 12:27 PM Chest X-Ray 02/24/23 13:47 SINGLE VIEW CHEST CLINICAL HISTORY: Left internal jugular central venous catheter placement. FINDINGS: An AP, portable, upright chest radiograph is compared to study dated 02/24/2023. Correlation is made with chest CT dated 07/15/2018. The examination is degraded by portable technique and patient rotation. A right internal jugular central venous catheter is unchanged in position. A left internal jugular central venous catheter is new from previous. The tip projects over the SVC. The heart is enlarged noting atherosclerotic calcification of the thoracic aorta. There is pulmonary vascular congestion. Chronic interstitial thickening is similar to previous. Scarring/atelectasis is noted at the lung bases. No airspace consolidation or large pleural effusion is identified. No pneumothorax is seen. The skeletal structures are osteopenic. The bony thorax is grossly intact. IMPRESSION: 1. A left internal jugular central venous catheter is new from previous. No pne umothorax is seen post procedure. 2. Cardiomegaly with pulmonary vascular congestion. ACT 112: Negative or not required by law. Electronically signed by: Donovan Marinelli M.D. 02/24/2023 2:14 PM RT Ventilator Mngmt (Last Documented) Ventilator Ordered Settings Respiratory Rate 22 02/24/23 13:55 Ventilator - PT Measurements Respiratory Rate 22 Coding Level of Care Code 29893 IN/OBS CONSULT LVL 4,60M Diagnoses Hyperkalemia E87.5 Encounter for dialysis and dialysis catheter care Z99.2 Fluid overload E87.70 Hypervolemia type: unspecified Cardiac arrest I46.9 (3) Fluid overload Hypervolemia type: unspecified Qualified Code(s): E87.70 - Fluid overload, unspecified
--- NOTE | 2023-02-24 14:37 | Procedure Note ---
Procedure Note Date of Service February 24, 2023 Note CENTRAL LINE PROCEDURE NOTE: Procedure: Central Line Placement Provider: Donavan Hogue MD Indication: Central Drug Administration, Poor Venous Access, Multiple Lab Draws Necessary, etc. Anesthesia: 4 mL lidocaine 1% Site: Left internal jugular Consent was signed and placed on the chart prior to procedure. Indication, risks, and benefits were explained at length. Per patient request, consent was signed by her significant other A time-out was completed verifying correct patient, procedure, site, positioning, and implants(s) or special equipment if applicable. Patients left neck was cleansed and draped in the typical sterile fashion using Chloraprep. The Internal Jugular Vein and Carotid Artery were identified using ultrasound. The superficial tissue was anesthetized using 4 mL of 1% lidocaine without epinephrine under direct visualization with the ultrasound. After adequate anesthetization was achieved, the Internal Jugular vein was cannulated under direct ultrasound guidance using an introducer needle on a syringe. Good venous blood return was maintained prior to removal of syringe from introducer needle. Using Seldinger Technique, a guide wire was advanced through the introducer needle without resistance. The introducer needle was removed. A small incision was made in penetrating fashion at the guide wire insertion site utilizing an 11 blade scalpel. Serial dilators were advanced to the vessel without resistance. The final dilator was exchanged for the 24 cm HD catheter which was advanced into the vessel without resistance. The guide wire was removed intact from the catheter without issue. Good blood flow from each lumen was confirmed. Each port was easily flushed with sterile saline. The catheter was placed at 22 cm and sutured in place. BioPatch was applied to the catheter and a sterile Tegaderm dressing was applied over the catheter with careful attention to sterility. Patient tolerated procedure well. No immediate complications were met. Post procedure x-ray was completed, placement was appropriate and no pneumothorax was noted. Estimated blood loss: 5 mL Coding CPT Codes Tubes, Drains, and Vasc Access - Tubes, Drains, and Vasc Access: [id number] Insertion of cannula for hemodialysis ([id number]) Tubes, Drains, and Vasc Access - Tubes, Drains, and Vasc Access: [id number] Ultrasound Guidance For Vascular ([id number]) [facility] Procedure Codes (Charges) Tubes, Drains, and Vasc Access Procedure 1: Tubes, Drains, and Vasc Access: [id number] Insertion of cannula for hemodialysis Procedure 2: Tubes, Drains, and Vasc Access: [id number] Ultrasound Guidance For Vascular
[2023-02-24] MEDS ORDERED: NovoLIN-R INSULIN PER UNIT CHARGE IV STA ×2 (15:20)
[2023-02-24] MEDS ORDERED: NovoLIN-R INSULIN PER UNIT CHARGE ONE (15:28)
[2023-02-24 15:30] LABS: Anion Gap 15 (3-11); Blood Urea Nitrogen 65 mg/dl (6-23); Calcium 10.6 mg/dl (8.6-10.3); Carbon Dioxide 21 mmol/L (21-32); Chloride 96 mmol/L (98-107); Est GFR (Non-African American) 6.1 ml/min; Glucose 493 mg/dl (70-99(Fasting)); Potassium 7.1 mmol/L (3.5-5.1); Sodium 132 mmol/L (136-145)
[2023-02-24] MEDS ORDERED: CALCIUM GLUCONATE 1,000 MG/60 ML BAG IV STA (15:34)
[2023-02-24] MEDS ORDERED: Patient's HEIGHT &/or WEIGHT Needed SCH (15:45)
[2023-02-24] MEDS ORDERED: GLUCOSE 40% GEL 15 GM TUBE PO PRN (16:00)
[2023-02-24] MEDS ORDERED: DEXTROSE 50% 50 ML SYRINGE IV PRN (16:00)
[2023-02-24] MEDS ORDERED: POLYETHYLENE (MIRALAX) 17 GM PACK PO PRN (16:00)
[2023-02-24] MEDS ORDERED: oxyCODONE HCL IR 5 MG TAB (IMMEDIATE RELEASE) PO PRN (16:00)
[2023-02-24] MEDS ORDERED: STAT IV Infusion **Titration per Protocol STA (16:00)
[2023-02-24] MEDS ORDERED: CARBOHYDRATES FOR HYPOGLYCEMIA PO PRN (16:00)
[2023-02-24] MEDS ORDERED: GLUCAGON FOR INJ 1 MG VIAL SQ PRN (16:00)
[2023-02-24] MEDS ORDERED: SIMETHICONE 80 MG CHEW PO PRN (16:00)
[2023-02-24] MEDS ORDERED: SOD PHOSPHATE/SOD BIPHOSPHATE ENEMA 132 ML BTL PR PRN (16:00)
[2023-02-24] MEDS ORDERED: INSULIN PROTOCOL GOAL RANGE ONE (16:00)
[2023-02-24] MEDS ORDERED: ALUMINUM/MAGNESIUM/SIMETH (MAALOX MAX) 30 ML UDC PO PRN (16:00)
[2023-02-24] MEDS ORDERED: LOPERAMIDE HCL 2 MG CAP PO PRN (16:00)
[2023-02-24] MEDS ORDERED: GLUCOSE 10 TAB/TUBE PO PRN (16:00)
[2023-02-24] MEDS ORDERED: PNEUMOCOCCAL VACCINE (PCV20) 20-VAL CONJ-DIP CRM/PF 0.5 ML SYR IM ONE (16:17)
[2023-02-24] MEDS ORDERED: ICU Protocol for HYPERglycemia SCH (16:30)
--- NOTE | 2023-02-24 16:55 | Nephrology Consultation ---
Date of Consultation February 24, 2023 Assessment & Plan (1) ESRD (end stage renal disease): Emergent HD was coordinated in the ICU for volume overload and hyperkalemia. LIJ HD catheter placed at the bedside today by Dr. Hogue is functioning well. RIJ catheter has not been functioning well. AVF use may be attempted in the future. An US of the dialysis fistula will be obtained. If AVF is not functional, permanent access will need to be discussed with vascular surgery. Outpatient Rx: MWF Revaclear 300 x 4 hours Qb 400 via TDC. EDW 85.5 kg. Medications are appropriately dosed for kidney function. Renal diet. 1 L daily fluid restriction. (2) Hypotension of hemodialysis: Improved with sequential fluid removal in the past. Permissible as tolerated. Metoprolol held prior to dialysis. Midodrine provided with treatment. (3) Cardiomyopathy: (4) Failure to thrive in adult: Goals of care continually reviewed. (5) Cardiac arrest: History of Present Illness Reason for Consultation: ESRD, hyperkalemia Requesting Physician: Will Rene MD Attending Physician: Will Rene MD History of Present Illness Kinza Reyna is a 67 year-old female with ESKD. She is maintained on IHD MWF at [facility] under my care. Her prescription is 4 hours on a Revaclear 300 at Qb 400 with a 2K 2.5 calcium bath. EDW is 85.5 kg. Clearances have been at goal. Delfina dialyzes using a TDC placed by Dr. Luke. Catheter was recently exchanged but unfortunately has not been functioning well. RUE AVF was placed in May 2021 but the patient has refused to allow use. ESKD attributed to diabetic kidney disease. Recent complications of HD included refractory hypervolemia with chronic intradialytic hypotension, as well as hyperkalemia. Delfina was having difficulty completing dialysis treatments due to back and leg pain. She was hospitalized at [facility] from February 03- with hypotension, encephalopathy, bilateral LE ischemia, and refractory hyperkalemia with volume overload. Midodrine was provided for BP support. Electrolyte imbalance and hypervolemia were corrected with aggressive inpatient HD. LE angiogram demonstrated diffuse atherosclerotic disease but no lesions amendable to percutaneous intervention. She was then readmitted with persistent hypotension and HD catheter malfunction. The catheter was exchanged over a wire. Delfina was able to complete HD on February 19 and without complications. Between the and , IDWG was 5.8 kg. Delfina presented today with IDWG of 2.2 kg and 4.2 kg to EDW. Unfortunately HD was stopped after less than 30 minutes due to persistent alarming and poor Qb. A blood flow of >180 was not able to be achieved with notable alarms including high arterial pressures. There was no improvement running reversed. She was referred to the emergency room w here she suffered a witnessed cardiac arrest. Delfina developed a wide-complex tachycardia treated with multiple episodes of defibrillation, amiodarone, calcium and bicarbonate. Laboratory studies were notable for severe hyperglycemia and hyperkalemia. Imaging demonstrating evidence of volume overload. Vascular surgery was not available and the therapeutic recreation assistant was consulted for temporary dialysis catheter placement which was performed without complications. I was able to discuss the patient with Dr. Goff, Dr. Rene, and Dr. Hogue while she was in the ER. HD access was secured and emergent dial ysis was coordinated in the ICU. Delfina was seen and evaluated during hemodialysis this evening. She is tolerating treatment relatively well. She does not recall any history over the past 24 hours. She reports generalized pain and discomfort. I updated goals of care. Delfina states that she would not want to go through CPR again but she told me that she needs to talk to her before making any changes to her code status or goals of care. She did report that she would be receptive to use of her AVF. Past medical history is also notable for coronary artery disease and reduced LVEF (~25-30%) as well as primary hyperparathyroidism. She has notable LE chronic stasis changes and severe PAD with areas of open ulceration on her toes. Allergies Allergy/AdvReac Type Severity Reaction Status Date / Time dulaglutide [From [facility]] Allergy Intermediate Hives Verified 02/09/23 07:26 atorvastatin AdvReac Intermediate Statin Verified 02/09/23 07:26 Cardiomyopathy erythromycin base AdvReac Intermediate Vomiting Verified 02/09/23 07:26 Home Medications Medication Instructions Recorded Confirmed Type blood-glucose sensor (Dexcom G6 #3 ea 06/24/21 10/22/22 Rx Sensor device) blood-glucose transmitter (Dexcom #1 ea 06/24/21 10/22/22 Rx G6 Transmitter device) blood-glucose meter ([employer] #1 ea 11/25/21 10/22/22 Rx Ultra2 Meter kit) lancets (OneTouch UltraSoft #200 ea 11/25/21 10/22/22 Rx Lancets) BD Ultra-Fine Gwen Pen Needle 32 #500 ea 08/10/22 10/22/22 Rx gauge x 5/32" (pen needle, diabetic) blood sugar diagnostic (OneTouch #200 ea 08/10/22 10/22/22 Rx Ultra Test strips) pantoprazole 40 mg tablet,delayed 40 mg PO HS 09/16/22 02/24/23 History release insulin aspart U-100 100 unit/mL 5 unit (0.05 mL) SC TIDM #15 mL 10/22/22 02/24/23 Rx (3 mL) subcutaneous pen (Novolog FlexPen U-100 Insulin aspart) insulin glargine 100 unit/mL 25 unit (0.25 mL) subcut HS #10 mL 10/22/22 02/24/23 Rx subcutaneous solution (Lantus U-100 Insulin) loperamide 2 mg capsule 2 mg PO Q4H PRN loose stool 10/24/22 02/24/23 History vitamin B complex and vitamin C 1 cap PO QAM 10/24/22 02/24/23 History no.20-folic acid 1 mg capsule (Renal Caps) bumetanide 2 mg tablet 1 mg PO BID 12/02/22 02/24/23 History cinacalcet 30 mg tablet 30 mg PO 3XWK 12/02/22 02/24/23 History clopidogrel 75 mg tablet (Plavix) 75 mg PO HS 02/03/23 02/24/23 History gabapentin 100 mg capsule 100 mg PO . @ 0830, 2030 02/03/23 02/24/23 History trazodone 50 mg tablet 25 mg PO HS 02/03/23 02/24/23 History midodrine 5 mg tablet 10 mg (2 x 5 mg) PO 3XWK #90 tabs 02/10/23 02/24/23 Rx acetaminophen 325 mg tablet 650 mg PO Q6H PRN FEVER >100 02/12/23 02/24/23 History (Tylenol) acetaminophen 325 mg tablet 650 mg PO Q6H PRN PAIN 1-10 02/12/23 02/24/23 History (Tylenol) cholecalciferol (vitamin D3) 125 125 mcg PO HS 02/12/23 02/24/23 History mcg (5,000 unit) capsule polyethylene glycol 3350 17 gram 17 g PO DAILY PRN constipation #0 02/17/23 02/24/23 Rx oral powder packet (Miralax) ea simethicone 80 mg chewable tablet 80 mg PO Q6H PRN abdominal 02/17/23 02/24/23 Rx (Gas Relief (simethicone)) distention #0 tabs Humalog Injection Solution See Rx Instructions .Route .COMPLEX 02/24/23 02/24/23 History aluminum-mag hydroxide-simethicone 30 ml PO Q6H PRN Heartburn 02/24/23 02/24/23 History 400 mg-400 mg-40 mg/5 mL oral susp bacitracin 500 unit/gram topical 1 applic topical DAILY 02/24/23 02/24/23 History ointment bisacodyl 10 mg rectal suppository 10 mg MI DAILY PRN Constipation 02/24/23 02/24/23 History (Dulcolax (bisacodyl)) menthol 0.44 %-zinc oxide 20.6 % 1 applic topical DAILY 02/24/23 02/24/23 History topical ointment (Calmoseptine) oxycodone 5 mg tablet 5 mg PO Q6H PRN pain 9-10 02/24/23 02/24/23 History sevelamer carbonate 800 mg tablet 800 mg PO . TUE, JENNIFER, SAT, SUN 02/24/23 02/24/23 History sodium phosphates 19 gram-7 118 ml MI DAILY PRN Constipation 02/24/23 02/24/23 History gram/118 mL enema (Enema) terbinafine HCl 1 % topical cream 1 applic topical BID 02/24/23 02/24/23 History Patient History Medical History Hyperkalemia Traumatic ulcer of left lower leg Osteopenia ESRD (end stage renal disease) Nocturnal hypoxemia Hx of Lyme disease GERD (gastroesophageal reflux disease) Vitamin D deficiency Diabetic nephropathy associated with type 2 diabetes mellitus Subclinical hypothyroidism TSH 5.180 in 01/2021 Dyslipidemia Diabetes type 2, uncontrolled Background diabetic retinopathy associated with type 2 diabetes mellitus Primary hyperparathyroidism CAD (coronary artery disease) Non obstructive (August 2009) per cardio records Morbid obesity Vocal cord paralysis syndrome Anemia History of CVA (cerebrovascular accident) (2017) Mitral regurgitation Hypertension Surgical History [place] teeth removed History of cataract surgery RT/LEFT History of vascular access device 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 (USING FOR DIALYSIS) Status post laparoscopic cholecystectomy (10/07/19) Difficult airway for intubation PT STATES HAS HAD VOCAL CORD PARAYSIS IN PAST Fiberoptic intubation used with 10/2019 lap odalis Hx of colonoscopy Hx of tubal ligation Hx of tonsillectomy Hx of eye surgery EYE MUSCLE REPAIR S/P cardiac catheterization OVER 10 YEARS AGO/NO STENTS Family History Father Family history of diabetes mellitus Aunt Family history of diabetes mellitus Uncle Family history of diabetes mellitus Brother Family history of diabetes mellitus Brother Family history of diabetes mellitus Grandmother (Maternal) Family hx of colon cancer Other Alzheimer disease Coronary heart disease No family history of adverse response to anesthesia Social History Smoking Status: Never smoker Tobacco Type: Cigarettes Second Hand Exposure: No; Do You Dip or Chew Tobacco: No; Tobacco Cessation Education Requested by Patient: No Hx Alcohol Use: No Hx Substance Use: No Preferred Language: Malay Communication Ability: Effective Visual Impairment: Limited Hearing Ability: Normal Extract Wringer Required: No Beliefs That Will Affect Care: None marital status: Current Living Situation: [facility] Current Living Situation Comment: [facility] Other Information That Helps Us Care for You: No Feels Safe at Home: Yes Safety Concerns: Feels Safe At This Time Diet: low salt and vegetarian caffeine: Yes Seatbelt Use: always Assistive Devices: Walker and Wheelchair Review of Systems Review of Systems: All systems reviewed & are unremarkable except as noted in HPI & below Constitutional: + body aches and + weakness Musculoskeletal: + joint pain, + stiffness and + body ach es Physical Exam Constitutional: + frail appearing; no acute distress Eyes: + anicteric sclerae; no corneal abnormal ity ENMT: Mouth: no oral mucosal abnormality and oral mucous membranes not dry Neck: normal visual inspection and trachea midline RIJ TDC, LIJ temporary HD catheter Respiratory: normal respiratory effort Auscultation: + rales Cardiovascular: Rate/Rhythm: regular rate Heart Sounds: normal S1, normal S2 and + murmur Extremities: + edema and + AV fistula Musculoskeletal: Extremities: + cyanosis (distal cyanosis of the toes); no clubbing Skin: + erythema and + skin hypertrophy; no ja undice Neurologic: Motor/Sensory: no tremor and no asterixis Psychiatric: Orientation: alert and oriented x 3 Results & Data Vital Signs (Past 12 Hours) Vital Signs Temp Pulse Pulse Pulse Resp BP BP 02/24/23 16:30 88 124/77 02/24/23 16:07 37 C 88 14 124/77 02/24/23 16:00 89 124/77 02/24/23 15:25 36.8 C 88 02/24/23 15:00 87 19 02/24/23 15:00 104/69 02/24/23 14:55 88 19 02/24/23 14:55 110/61 02/24/23 14:50 110/64 02/24/23 14:50 88 21 02/24/23 14:45 88 18 02/24/23 14:45 109/63 02/24/23 14:40 85 19 02/24/23 14:40 103/63 02/24/23 14:35 85 18 02/24/23 14:35 108/62 02/24/23 14:30 98/60 L 02/24/23 14:30 86 17 02/24/23 14:25 109/46 L 02/24/23 14:25 86 19 02/24/23 14:20 99/63 L 02/24/23 14:20 86 20 02/24/23 14:15 90 21 02/24/23 14:15 98/69 L 02/24/23 14:10 94 H 24 02/24/23 14:10 96/59 L 02/24/23 14:00 87 23 02/24/23 14:00 96/60 L 02/24/23 13:55 95/66 L 02/24/23 13:55 87 22 02/24/23 13:50 89 22 02/24/23 13:50 96/54 L 02/24/23 13:45 90 22 02/24/23 13:45 98/62 L 02/24/23 13:40 107/63 02/24/23 13:40 90 21 02/24/23 13:35 125/76 02/24/23 13:35 94 H 18 02/24/23 13:30 98/73 L 02/24/23 13:30 95 H 20 02/24/23 13:26 118/70 02/24/23 13:26 101 H 21 02/24/23 13:20 114/70 02/24/23 13:20 93 H 20 02/24/23 13:10 90 24 02/24/23 13:06 98/71 L 02/24/23 12:44 125 H 02/24/23 12:11 99 H 02/24/23 10:49 36.8 C 66 16 111/63 Pulse Ox O2 Del Method O2 Flow Rate 02/24/23 16:30 02/24/23 16:07 100 Room Air 02/24/23 16:00 02/24/23 15:25 02/24/23 15:00 99 4 02/24/23 15:00 02/24/23 14:55 98 4 02/24/23 14:55 02/24/23 14:50 02/24/23 14:50 99 4 02/24/23 14:45 99 4 02/24/23 14:45 02/24/23 14:40 99 4 02/24/23 14:40 02/24/23 14:35 98 4 02/24/23 14:35 02/24/23 14:30 02/24/23 14:30 100 4 02/24/23 14:25 02/24/23 14:25 97 4 02/24/23 14:20 02/24/23 14:20 96 4 02/24/23 14:15 97 4 02/24/23 14:15 02/24/23 14:10 94 4 02/24/23 14:10 02/24/23 14:00 99 4 02/24/23 14:00 02/24/23 13:55 02/24/23 13:55 97 4 02/24/23 13:50 97 4 02/24/23 13:50 02/24/23 13:45 98 4 02/24/23 13:45 02/24/23 13:40 02/24/23 13:40 97 4 02/24/23 13:35 02/24/23 13:35 100 4 02/24/23 13:30 02/24/23 13:30 99 4 02/24/23 13:26 02/24/23 13:26 100 4 02/24/23 13:20 02/24/23 13:20 95 4 02/24/23 13:10 93 4 02/24/23 13:06 02/24/23 12:44 02/24/23 12:11 02/24/23 10:49 95 Room Air Laboratory Results Laboratory Results - last 24 hr 02/24/23 02/24/23 02/24/23 11:17 11:17 12:15 WBC 10.73 RBC 3.85 L Hgb 11.5 L Hct 36.9 L MCV 95.8 MCH 29.9 MCHC 31.2 L RDW Std Deviation 55.5 H RDW Coeff of Braed[place] 16.4 H Plt Count 279 MPV 10.3 Immature Gran % (Auto) 0.6 Neut % (Auto) 77.6 Lymph % (Auto) 12.8 [place] % (Auto) 6.5 Eos % (Auto) 1.8 Baso % (Auto) 0.7 Neut # (Auto) 8.33 H Lymph # (Auto) 1.37 [place] # (Auto) 0.70 H Eos # (Auto) 0.19 Baso # (Auto) 0.08 Immature Gran # (Auto) 0.06 PT 10.6 INR 1.0 APTT 23.2 PTT Ratio 0.8 Sodium Cancelled Potassium Cancelled Chloride Cancelled Carbon Dioxide Cancelled Anion Gap Cancelled BUN Cancelled Creatinine Cancelled Est Cr Clr Drug Dosing Cancelled Est GFR ( Amer) Cancelled Est GFR (Non-Af Amer) Cancelled BUN/Creatinine Ratio Cancelled Glucose Cancelled POC Glucose Calcium Cancelled Total Bilirubin Cancelled AST Cancelled ALT Cancelled Alkaline Phosphatase Cancelled Troponin I High Sens 279.5 H* Cancelled Total Protein Cancelled Albumin Cancelled Globulin Cancelled Albumin/Globulin Ratio Cancelled Nasal Screen MRSA (PCR) 02/24/23 02/24/23 02/24/23 12:51 14:55 15:18 WBC RBC Hgb Hct MCV MCH MCHC RDW Std Deviation RDW Coeff of Bra[place] Plt Count MPV Immature Gran % (Auto) Neut % (Auto) Lymph % (Auto) [place] % (Auto) Eos % (Auto) Baso % (Auto) Neut # (Auto) Lymph # (Auto) [place] # (Auto) Eos # (Auto) Baso # (Auto) Immature Gran # (Auto) PT INR APTT PTT Ratio Sodium 136 132 L Potassium 6.3 H* 7.1 H* Chloride 95 L 96 L Carbon Dioxide 26 21 Anion Gap 15 H 15 H BUN 63 H 65 H Creatinine 6.17 H* 6.49 H* D Est Cr Clr Drug Dosing Not Reportable Not Reportable Est GFR ( Amer) 7.5 7.0 Est GFR (Non-Af Amer) 6.5 6.1 BUN/Creatinine Ratio 10.2 10.0 Glucose 500 H* 493 H* POC Glucose 507 H* Calcium 11.9 H 10.6 H Total Bilirubin 0.3 AST 104 H ALT 43 Alkaline Phosphatase 114 H Troponin I High Sens Total Protein 6.6 Albumin 2.8 L Globulin 3.8 Albumin/Globulin Ratio 0.7 L Nasal Screen MRSA (PCR) 02/24/23 02/24/23 02/24/23 15:50 16:43 16:44 WBC RBC Hgb Hct MCV MCH MCHC RDW Std Deviation RDW Coeff of Braeden Plt Count MPV Immature Gran % (Auto) Neut % (Auto) Lymph % (Auto) [place] % (Auto) Eos % (Auto) Baso % (Auto) Neut # (Auto) Lymph # (Auto) [place] # (Auto) Eos # (Auto) Baso # (Auto) Immature Gran # (Auto) PT INR APTT PTT Ratio Sodium Potassium Chloride Carbon Dioxide Anion Gap BUN Creatinine Est Cr Clr Drug Dosing Est GFR ( Amer) Est GFR (Non-Af Amer) BUN/Creatinine Ratio Glucose POC Glucose 436 H* 379 H* Calcium Total Bilirubin AST ALT Alkaline Phosphatase Troponin I High Sens Total Protein Albumin Globulin Albumin/Globulin Ratio Nasal Screen MRSA (PCR) Pending Diagnostic Findings SINGLE VIEW CHEST FINDINGS: An AP, portable, upright chest radiograph is compared to study dated 02/24/2023. Correlation is made with chest CT dated 07/15/2018. The examination is degraded by portable technique and patient rotation. A right internal jugular central venous catheter is unchanged in position. A left internal jugular central venous catheter is new from previous. The tip projects over the SVC. The heart is enlarged noting atherosclerotic calcification of the thoracic aorta. There is pulmonary vascular congestion. Chronic interstitial thickening is similar to previous. Scarring/atelectasis is noted at the lung bases. No airspace consolidation or large pleural effusion is identified. No pneumothorax is seen. The skeletal structures are osteopenic. The bony thorax is grossly intact. IMPRESSION: 1. A left internal jugular central venous catheter is new from previous. No pneumothorax is seen post procedure. 2. Cardiomegaly with pulmonary vascular congestion. PG Care Time/CCT Total # of Minutes Spent Total Time Spent with Patient: Total time spent is greater than 50% in coordination of care (as documented) at patient's floor/unit and/or counseling patient: Coding Level of Care Code 58574 IN/OBS CONSULT LVL 5,80M Diagnoses ESRD (end stage renal disease) N18.6 Hypotension of hemodialysis I95.3 Cardiomyopathy I42.9 Failure to thrive in adult R62.7 Cardiac arrest I46.9
[2023-02-24] MEDS ORDERED: INSULIN REGULAR 250 UNITS in SODIUM CHLORIDE 0.9% 247.5 ML IV SCH (17:15)
[2023-02-24] MEDS ORDERED: NovoLIN-R BOLUS FROM BAG IV ONE (17:30)
--- NOTE | 2023-02-24 18:25 | Cardiology Consultation ---
Date of Consultation February 24, 2023 Assessment & Plan (1) Cardiac arrest: (2) Ventricular tachycardia: (3) Cardiomyopathy: (4) CAD (coronary artery disease): (5) Aortic stenosis: (6) Pulmonary hypertension: Plan ASSESSMENT/PLAN: 1. Ventricular tachycardia/cardiac arrest: Occurred in the setting of hyperkalemia, severely reduced LV systolic function, and aortic stenosis. Potassium after receiving medications was 6.3 but later 7.1 but as per discussion with nephrology, Dr. Garcia, has had mild hyperkalemia more chronically. Certainly at risk for ventricular arrhythmias with severely reduced LV systolic function and significant aortic stenosis. This was discussed with patient and her who was present at the bedside. Agree with amiodarone and correction of electrolyte abnormalities. We discussed briefly possibility of ICD, if agreeable, given her significant cardiomyopathy. 2. Cardiomyopathy: Reported as nonischemic. Medical therapy would be quite challenging given her issues with hypotension and the need for midodrine to tolerate dialysis. Discussed possible ICD if she is agreeable as she would qualify for primary prevention and now also secondary prevention. 3. CAD: Described as minimal and nonobstructive in the past. She did not pres ent with STEMI. No angina. Risk factor modification as able but challenging as she does not tolerate statin therapy and would not tolerate beta-pepper given issues with hypotension. 4. Aortic stenosis: Visually appears to be severe and dimensionless index and aortic valve area suggest severe. Low gradient aortic stenosis given severely reduced LV systolic function. This could also precipitate ventricular arrhythmia. 5. Pulmonary hypertension: Similar findings on current echo compared to December 2022 echo. Hypervolemia likely playing a role as dialysis has been suboptimal according to dialysis nurse present given catheter issues. 6. Disposition: Dr. Montes, her primary travel manager, would be available tomorrow to continue her care. He was updated via telephone. Also spoke with Dr. Garcia of nephrology. Addendum: After being seen, she arrested again. Thank you for allowing me to participate in the care of your patient. Please call for any other questions or concerns. Sincerely, Toro Perez M.D. History of Present Illness Reason for Consultation: VT/Cardiac arrest Requesting Physician: Will Rene MD Attending Physician: Will Rene MD History of Present Illness Mrs. Reyna is a pleasant 67-year-old female with a history significant for cardiomyopathy, ESRD on HD, dyslipidemia, type 2 diabetes, and stroke. Her primary travel manager is Dr. Montes. She was admitted on 02/24/2023 after being sent to the emergency department due to a nonfunctioning hemodialysis catheter. While in the emergency department, cardiac arrest occurred with ventricular tachycardia noted on telemetry. She reportedly underwent CPR including defibrillation. Per report, she received calcium and bicarb as well as amiodarone bolus and drip. ROSC was achieved. Hemodialysis catheter was placed by the critical care team and she went to the ICU to receive dialysis. She was seen earlier this evening. She states that she had no chest pain or shortness of breath, palpitations, or syncope prior to her V. tach episode. She admits that she had nausea and vomiting however. While in the ICU, she was undergoing hemodialysis and has been having issues with hypotension. According to her and dialysis nurse, this has been an issue and she typically takes midodrine prior to dialysis, which she did not have today. While in the ICU, she had chest pain and her chest has been tender to palpation ever since her cardiac arrest earlier today. Her potassium was noted to be as high as 7.1 this afternoon but initially 6.3 at 12:51 PM after arrest. Ventricular tachycardia occurred at approximately 12:34 PM and was sustained with intermittent conversion when reviewing telemetry, until 1243 after the last defibrillation when V. tach converted. She denies recent angina, shortness of breath, palpitations, melena, hematochezia, or hematuria. She has chronic lower extremity edema which her believed to be better today in general. She had an intraosseous line placed during her arrest in the right lower extremity. Review of systems: As above. Review of systems otherwise negative/unremarkable. Family history: Noncontributory. Social history: She denies tobacco and alcohol abuse. She lives at [facility]. Her , Javy, was present at the bedside. Allergies Allergy/AdvReac Type Severity Reaction Status Date / Time dulaglutide [From [facility]] Allergy Intermediate Hives Verified 02/09/23 07:26 atorvastatin AdvReac Intermediate Statin Verified 02/09/23 07:26 Cardiomyopathy erythromycin base AdvReac Intermediate Vomiting Verified 02/09/23 07:26 Home Medications Medication Instructions Recorded Confirmed Type blood-glucose sensor (DexMEEP G6 #3 ea 06/24/21 10/22/22 Rx Sensor device) blood-glucose transmitter (Dexcom #1 ea 06/24/21 10/22/22 Rx G6 Transmitter device) blood-glucose meter (OneTouch #1 ea 11/25/21 10/22/22 Rx Ultra2 Meter kit) lancets (OneTouch UltraSoft #200 ea 11/25/21 10/22/22 Rx Lancets) BD Ultra-Fine Gwen Pen Needle 32 #500 ea 08/10/22 10/22/22 Rx gauge x 5/32" (pen needle, diabetic) blood sugar diagnostic (OneTouch #200 ea 08/10/22 10/22/22 Rx Ultra Test strips) pantoprazole 40 mg tablet,delayed 40 mg PO HS 09/16/22 02/24/23 History release insulin aspart U-100 100 unit/mL 5 unit (0.05 mL) SC TIDM #15 mL 10/22/22 02/24/23 Rx (3 mL) subcutaneous pen (Novolog FlexPen U-100 Insulin aspart) insulin glargine 100 unit/mL 25 unit (0.25 mL) subcut HS #10 mL 10/22/22 02/24/23 Rx subcutaneous solution (Lantus U-100 Insulin) loperamide 2 mg capsule 2 mg PO Q4H PRN loose stool 10/24/22 02/24/23 History vitamin B complex and vitamin C 1 cap PO QAM 10/24/22 02/24/23 History no.20-folic acid 1 mg capsule (Renal Caps) bumetanide 2 mg tablet 1 mg PO BID 12/02/22 02/24/23 History cinacalcet 30 mg tablet 30 mg PO 3XWK 12/02/22 02/24/23 History clopidogrel 75 mg tablet (Plavix) 75 mg PO HS 02/03/23 02/24/23 History gabapentin 100 mg capsule 100 mg PO . @ 0830, 2030 02/03/23 02/24/23 History trazodone 50 mg tablet 25 mg PO HS 02/03/23 02/24/23 History midodrine 5 mg tablet 10 mg (2 x 5 mg) PO 3XWK #90 tabs 02/10/23 02/24/23 Rx acetaminophen 325 mg tablet 650 mg PO Q6H PRN FEVER >100 02/12/23 02/24/23 History (Tylenol) acetaminophen 325 mg tablet 650 mg PO Q6H PRN PAIN 1-10 02/12/23 02/24/23 History (Tylenol) cholecalciferol (vitamin D3) 125 125 mcg PO HS 02/12/23 02/24/23 History mcg (5,000 unit) capsule polyethylene glycol 3350 17 gram 17 g PO DAILY PRN constipation #0 02/17/23 02/24/23 Rx oral powder packet (Miralax) ea simethicone 80 mg chewable tablet 80 mg PO Q6H PRN abdominal 02/17/23 02/24/23 Rx (Gas Relief (simethicone)) distention #0 tabs Humalog Injection Solution See Rx Instructions .Route .COMPLEX 02/24/23 02/24/23 History aluminum-mag hydroxide-simethicone 30 ml PO Q6H PRN Heartburn 02/24/23 02/24/23 History 400 mg-400 mg-40 mg/5 mL oral susp bacitracin 500 unit/gram topical 1 applic topical DAILY 02/24/23 02/24/23 History ointment bisacodyl 10 mg rectal suppository 10 mg VT DAILY PRN Constipation 02/24/23 02/24/23 History (Dulcolax (bisacodyl)) menthol 0.44 %-zinc oxide 20.6 % 1 applic topical DAILY 02/24/23 02/24/23 History topical ointment (Calmoseptine) oxycodone 5 mg tablet 5 mg PO Q6H PRN pain 9-10 02/24/23 02/24/23 History sevelamer carbonate 800 mg tablet 800 mg PO . TUE, JENNIFER, SAT, SUN 02/24/23 02/24/23 History sodium phosphates 19 gram-7 118 ml VT DAILY PRN Constipation 02/24/23 02/24/23 History gram/118 mL enema (Enema) terbinafine HCl 1 % topical cream 1 applic topical BID 02/24/23 02/24/23 History Patient History Medical History Hyperkalemia Traumatic ulcer of left lower leg Osteopenia ESRD (end stage renal disease) Nocturnal hypoxemia Hx of Lyme disease GERD (gastroesophageal reflux disease) Vitamin D deficiency Diabetic nephropathy associated with type 2 diabetes mellitus Subclinical hypothyroidism TSH 5.180 in 01/2021 Dyslipidemia Diabetes type 2, uncontrolled Background diabetic retinopathy associated with type 2 diabetes mellitus Primary hyperparathyroidism CAD (coronary artery disease) Non obstructive (August 2009) per cardio records Morbid obesity Vocal cord paralysis syndrome Anemia History of CVA (cerebrovascular accident) (2017) Mitral regurgitation Hypertension Surgical History [place] teeth removed History of cataract surgery RT/LEFT History of vascular access device 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 (USING FOR DIALYSIS) Status post laparoscopic cholecystectomy (10/07/19) Difficult airway for intubation PT STATES HAS HAD VOCAL CORD PARAYSIS IN PAST Fiberoptic intubation used with 10/2019 lap odalis Hx of colonoscopy Hx of tubal ligation Hx of tonsillectomy Hx of eye surgery EYE MUSCLE REPAIR S/P cardiac catheterization OVER 10 YEARS AGO/NO STENTS Family History Father Family history of diabetes mellitus Aunt Family history of diabetes mellitus Uncle Family history of diabetes mellitus Brother Family history of diabetes mellitus Brother Family history of diabetes mellitus Grandmother (Maternal) Family hx of colon cancer Other Alzheimer disease Coronary heart disease No family history of adverse response to anesthesia Social History Smoking Status: Never smoker Tobacco Type: Cigarettes Second Hand Exposure: No; Do You Dip or Chew Tobacco: No; Tobacco Cessation Education Requested by Patient: No Hx Alcohol Use: No Hx Substance Use: No Preferred Language: Georgian Communication Ability: Effective Visual Impairment: Limited Hearing Ability: Normal Appliance Servicer Required: No Beliefs That Will Affect Care: None marital status: Current Living Situation: Group Home Current Living Situation Comment: [facility] Other Information That Helps Us Care for You: No Feels Safe at Home: Yes Safety Concerns: Feels Safe At This Time Diet: low salt and vegetarian caffeine: Yes Seatbelt Use: always Assistive Devices: Walker and Wheelchair Physical Exam Physical Exam: Gen.: No acute distress. Alert. HEENT: Anicteric sclera. Neck: Hemodialysis catheter in use Involving the left neck. Cardiac: Regular. Normal S1-S2. Systolic murmur but difficult to fully auscultate due to dialysis machine and alarms. Pulmonary: Clear to auscultation bilaterally without wheezes, rales, or rhonchi. Abdomen: Soft, nontender, nondistended, with normoactive bowel sounds. No bruits noted. Extremities: 2+ radial pulses bilaterally. 2+ bilateral lower extremity edema. No cyanosis. Results & Data Vital Signs (Past 12 Hours) Vital Signs Temp Pulse Pulse Pulse Resp BP BP 02/24/23 18:00 90 82/51 L 02/24/23 17:30 82 94/67 L 02/24/23 17:30 92 H 22 02/24/23 17:30 94/67 L 02/24/23 17:15 106/91 02/24/23 17:15 93 H 14 02/24/23 17:00 93 H 23 02/24/23 17:00 102/63 02/24/23 17:00 94 H 102/63 02/24/23 16:45 114/66 02/24/23 16:45 96 H 21 02/24/23 16:30 100 H 20 02/24/23 16:30 97/75 L 02/24/23 16:30 88 124/77 02/24/23 16:15 126/72 02/24/23 16:15 87 18 02/24/23 16:07 37 C 88 14 124/77 02/24/23 16:00 87 20 02/24/23 16:00 124/77 02/24/23 16:00 02/24/23 16:00 36.9 C 02/24/23 16:00 89 124/77 02/24/23 15:49 122/69 02/24/23 15:49 90 22 02/24/23 15:25 36.8 C 88 02/24/23 15:20 117/65 02/24/23 15:20 85 13 02/24/23 15:15 105/74 02/24/23 15:15 85 24 02/24/23 15:10 88 20 02/24/23 15:10 110/67 02/24/23 15:05 87 18 02/24/23 15:05 110/68 02/24/23 15:00 87 19 02/24/23 15:00 104/69 02/24/23 14:55 88 19 02/24/23 14:55 110/61 02/24/23 14:50 110/64 02/24/23 14:50 88 21 02/24/23 14:45 88 18 02/24/23 14:45 109/63 02/24/23 14:40 85 19 02/24/23 14:40 103/63 02/24/23 14:35 85 18 02/24/23 14:35 108/62 02/24/23 14:30 98/60 L 02/24/23 14:30 86 17 02/24/23 14:25 109/46 L 02/24/23 14:25 86 19 02/24/23 14:20 99/63 L 02/24/23 14:20 86 20 02/24/23 14:15 90 21 02/24/23 14:15 98/69 L 02/24/23 14:10 94 H 24 02/24/23 14:10 96/59 L 02/24/23 14:00 87 23 02/24/23 14:00 96/60 L 02/24/23 13:55 95/66 L 02/24/23 13:55 87 22 02/24/23 13:50 89 22 02/24/23 13:50 96/54 L 02/24/23 13:45 90 22 02/24/23 13:45 98/62 L 02/24/23 13:40 107/63 02/24/23 13:40 90 21 02/24/23 13:35 125/76 02/24/23 13:35 94 H 18 02/24/23 13:30 98/73 L 02/24/23 13:30 95 H 20 02/24/23 13:26 118/70 02/24/23 13:26 101 H 21 02/24/23 13:20 114/70 02/24/23 13:20 93 H 20 02/24/23 13:10 90 24 02/24/23 13:06 98/71 L 02/24/23 12:44 125 H 02/24/23 12:11 99 H 02/24/23 10:49 36.8 C 66 16 111/63 Pulse Ox O2 Del Method O2 Flow Rate 02/24/23 18:00 02/24/23 17:30 02/24/23 17:30 97 02/24/23 17:30 02/24/23 17:15 02/24/23 17:15 96 02/24/23 17:00 95 02/24/23 17:00 02/24/23 17:00 02/24/23 16:45 02/24/23 16:45 96 02/24/23 16:30 94 02/24/23 16:30 02/24/23 16:30 02/24/23 16:15 02/24/23 16:15 97 02/24/23 16:07 100 Room Air 02/24/23 16:00 94 02/24/23 16:00 02/24/23 16:00 Oxymask 4 02/24/23 16:00 02/24/23 16:00 02/24/23 15:49 02/24/23 15:49 95 02/24/23 15:25 02/24/23 15:20 02/24/23 15:20 98 02/24/23 15:15 02/24/23 15:15 98 02/24/23 15:10 99 02/24/23 15:10 02/24/23 15:05 99 02/24/23 15:05 02/24/23 15:00 99 4 02/24/23 15:00 02/24/23 14:55 98 4 02/24/23 14:55 02/24/23 14:50 02/24/23 14:50 99 4 02/24/23 14:45 99 4 02/24/23 14:45 02/24/23 14:40 99 4 02/24/23 14:40 02/24/23 14:35 98 4 02/24/23 14:35 02/24/23 14:30 02/24/23 14:30 100 4 02/24/23 14:25 02/24/23 14:25 97 4 02/24/23 14:20 02/24/23 14:20 96 4 02/24/23 14:15 97 4 02/24/23 14:15 02/24/23 14:10 94 4 02/24/23 14:10 02/24/23 14:00 99 4 02/24/23 14:00 02/24/23 13:55 02/24/23 13:55 97 4 02/24/23 13:50 97 4 02/24/23 13:50 02/24/23 13:45 98 4 02/24/23 13:45 02/24/23 13:40 02/24/23 13:40 97 4 02/24/23 13:35 02/24/23 13:35 100 4 02/24/23 13:30 02/24/23 13:30 99 4 02/24/23 13:26 02/24/23 13:26 100 4 02/24/23 13:20 02/24/23 13:20 95 4 02/24/23 13:10 93 4 02/24/23 13:06 02/24/23 12:44 02/24/23 12:11 02/24/23 10:49 95 Room Air Laboratory Results Laboratory Results - last 24 hr 02/24/23 02/24/23 02/24/23 11:17 11:17 12:15 WBC 10.73 RBC 3.85 L Hgb 11.5 L Hct 36.9 L MCV 95.8 MCH 29.9 MCHC 31.2 L RDW Std Deviation 55.5 H RDW Coeff of Braeden 16.4 H Plt Count 279 MPV 10.3 Immature Gran % (Auto) 0.6 Neut % (Auto) 77.6 Lymph % (Auto) 12.8 [place] % (Auto) 6.5 Eos % (Auto) 1.8 Baso % (Auto) 0.7 Neut # (Auto) 8.33 H Lymph # (Auto) 1.37 [place] # (Auto) 0.70 H Eos # (Auto) 0.19 Baso # (Auto) 0.08 Immature Gran # (Auto) 0.06 PT 10.6 INR 1.0 APTT 23.2 PTT Ratio 0.8 Sodium Cancelled Potassium Cancelled Chloride Cancelled Carbon Dioxide Cancelled Anion Gap Cancelled BUN Cancelled Creatinine Cancelled Est Cr Clr Drug Dosing Cancelled Est GFR ( Amer) Cancelled Est GFR (Non-Af Amer) Cancelled BUN/Creatinine Ratio Cancelled Glucose Cancelled POC Glucose Calcium Cancelled Total Bilirubin Cancelled AST Cancelled ALT Cancelled Alkaline Phosphatase Cancelled Troponin I High Sens 279.5 H* Cancelled Total Protein Cancelled Albumin Cancelled Globulin Cancelled Albumin/Globulin Ratio Cancelled Nasal Screen MRSA (PCR) 02/24/23 02/24/23 02/24/23 12:51 14:55 15:18 WBC RBC Hgb Hct MCV MCH MCHC RDW Std Deviation RDW Coeff of Braeden Plt Count MPV Immature Gran % (Auto) Neut % (Auto) Lymph % (Auto) [place] % (Auto) Eos % (Auto) Baso % (Auto) Neut # (Auto) Lymph # (Auto) [place] # (Auto) Eos # (Auto) Baso # (Auto) Immature Gran # (Auto) PT INR APTT PTT Ratio Sodium 136 132 L Potassium 6.3 H* 7.1 H* Chloride 95 L 96 L Carbon Dioxide 26 21 Anion Gap 15 H 15 H BUN 63 H 65 H Creatinine 6.17 H* 6.49 H* D Est Cr Clr Drug Dosing Not Reportable Not Reportable Est GFR ( Amer) 7.5 7.0 Est GFR (Non-Af Amer) 6.5 6.1 BUN/Creatinine Ratio 10.2 10.0 Glucose 500 H* 493 H* POC Glucose 507 H* Calcium 11.9 H 10.6 H Total Bilirubin 0.3 AST 104 H ALT 43 Alkaline Phosphatase 114 H Troponin I High Sens Total Protein 6.6 Albumin 2.8 L Globulin 3.8 Albumin/Globulin Ratio 0.7 L Nasal Screen MRSA (PCR) 02/24/23 02/24/23 02/24/23 15:50 16:43 16:44 WBC RBC Hgb Hct MCV MCH MCHC RDW Std Deviation RDW Coeff of Braeden Plt Count MPV Immature Gran % (Auto) Neut % (Auto) Lymph % (Auto) [place] % (Auto) Eos % (Auto) Baso % (Auto) Neut # (Auto) Lymph # (Auto) [place] # (Auto) Eos # (Auto) Baso # (Auto) Immature Gran # (Auto) PT INR APTT PTT Ratio Sodium Potassium Chloride Carbon Dioxide Anion Gap BUN Creatinine Est Cr Clr Drug Dosing Est GFR ( Amer) Est GFR (Non-Af Amer) BUN/Creatinine Ratio Glucose POC Glucose 436 H* 379 H* Calcium Total Bilirubin AST ALT Alkaline Phosphatase Troponin I High Sens Total Protein Albumin Globulin Albumin/Globulin Ratio Nasal Screen MRSA (PCR) Positive A Diagnostic Findings ECHO 02/24/23: 1. Mildly dilated left ventricle with severely reduced systolic function. Estimated EF 20-25%. Akinesis of the anterior septum, septum, mid to distal anterior, mid to distal anterolateral, mid to distal inferior, and apical wall segments. Otherwise, global hypokinesis. Mild left ventricular hypertrophy involving the inferolateral wall. 2. Mildly dilated right ventricle with mildly reduced systolic function. 3. Possible significant aortic stenosis. Aortic valve visually appears severely stenotic. Trans valvular velocity/gradient may be underestimated given severely reduced LV systolic function. 4. Mild to moderate mitral regurgitation. 5. Mild to moderate tricuspid regurgitation. 6. Moderate to severe pulmonary hypertension. Estimated RVSP 55-60 mmHg. 7. Compared to prior study on 12/24/2022, similar findings. ECGs personally reviewed: ECG 02/24/2023 at 11:46 AM: Sinus rhythm [address]/T wave abnormality. Inferior ST/T wave abnormality. ECG 02/24/2023 at 1254: Sinus tachycardia [address]/T wave abnormality. Lateral ST/T wave abnormality. Critical care consultation, history and physical report and nephrology consultation reviewed. Labs reviewed and notable for elevated high-sensitivity troponin, hyperkalemia with potassium as high as 7.1, hyperglycemia, mild anemia, normal TSH. Chest x-ray 02/24/2023 report reviewed: No acute process per radiology. Outpatient cardiology records reviewed. Telemetry personally reviewed: Ventricular tachycardia as noted above in HPI. Was in sinus rhythm this evening when reviewed. Medications Administered Current Inpatient Medications Al Hydrox/Mg Hydrox/Simethicone (Aluminum/Magnesium/Simeth (Maalox Max) 30 Ml Udc) 30 ml PO Q6H PRN PRN Reason: Heartburn Stop: 03/26/23 15:59 Bumetanide (Bumetanide 1 Mg Tab) 1 mg PO SuTuThSa@0900 [facility] Stop: 03/27/23 08:59 Cinacalcet (Cinacalcet Hcl 30 Mg Tab) 30 mg PO MoWeFr@2100 [facility] Stop: 03/26/23 20:59 Clopidogrel Bisulfate (Clopidogrel Bisulfate 75 Mg Tab) 75 mg PO HS JACE Stop: 03/26/23 20:59 Dextrose (Dextrose 50% 50 Ml Syringe) 25 - 50 ml IV UD PRN; Protocol PRN Reason: Hypoglycemia Protocol Stop: 03/26/23 15:59 Gabapentin (Gabapentin 100 Mg Cap) 100 mg PO DAILY@829,2029 [facility] Stop: 03/26/23 20:29 Glucagon (Glucagon For Inj 1 Mg Vial) 1 mg SQ UD PRN; Protocol PRN Reason: Hypoglycemia Protocol Stop: 03/26/23 15:59 Glucose (Glucose 10 Tab/Tube) 4 - 8 tab PO UD PRN; Protocol PRN Reason: Hypoglycemia Treatment Stop: 03/26/23 15:59 Glucose (Glucose 40% Gel 15 Gm Tube) 15 - 30 gm PO UD PRN; Protocol PRN Reason: Hypoglycemia Protocol Stop: 03/26/23 15:59 Amiodarone HCl/Dextrose (Nexterone / D5w) 360 mg in 200 mls @ 33.333 mls/hr IV .Q6H JACE Stop: 02/24/23 19:44 Last Admin: 02/24/23 13:43 Dose: 1 mg/min, 33.3 mls/hr Amiodarone HCl/Dextrose (Nexterone / D5w) 360 mg in 200 mls @ 16.667 mls/hr IV .Q12H JACE Stop: 03/26/23 13:44 Insulin Human Regular 250 (units/ Sodium Chloride) 250 mls @ 2.2 mls/hr IV .Q24H JACE; Protocol Stop: 03/26/23 17:14 Last Admin: 02/24/23 17:30 Dose: 2.2 units/hr, 2.2 mls/hr Insulin Aspart (Insulin Aspart Per Unit Charge) 0 units SC ACHS [facility] Stop: 03/26/23 20:59 Loperamide HCl (Loperamide Hcl 2 Mg Cap) 2 mg PO Q4H PRN PRN Reason: loose stool Stop: 03/26/23 15:59 Midodrine (Midodrine Hcl 10 Mg Tab) 10 mg PO MoWeFr@0900 [facility] Stop: 03/28/23 08:59 Miscellaneous (Carbohydrates For Hypoglycemia ) 15 - 30 gm PO UD PRN PRN Reason: Hypoglycemia Protocol Stop: 03/26/23 15:59 Oxycodone HCl (Oxycodone Hcl Ir 5 Mg Tab (Immediate Release)) 5 mg PO Q6H PRN PRN Reason: pain 9-10 Stop: 03/10/23 15:59 Pantoprazole Sodium (Pantoprazole 40 Mg Tab) 40 mg PO HS [facility] Stop: 03/26/23 20:59 Polyethylene Glycol (Polyethylene (Miralax) 17 Gm Pack) 17 gm PO DAILY PRN PRN Reason: constipation Stop: 03/26/23 15:59 Sevelamer HCl (Sevelamer Hcl 800 Mg Tablet) 800 mg PO SuTuThSa@0800,1200,1700 JACE Stop: 03/27/23 07:59 Simethicone (Simethicone 80 Mg Chew) 80 mg PO Q6H PRN PRN Reason: abdominal distention Stop: 03/26/23 15:59 Sodium Biphosphate/Sodium Phosphate (Sod Phosphate/Sod Biphosphate Enema 132 Ml Btl) 118 ml VT DAILY PRN PRN Reason: Constipation Stop: 03/26/23 15:59 Trazodone HCl (Trazodone Hcl 50 Mg Tab) 25 mg PO HS JACE Stop: 03/26/23 20:59 Vitamin B Complex/Folic Acid (Nephrocaps) 1 cap PO QAM JACE Stop: 03/27/23 08:59 PG Care Time/CCT Total # of Minutes Spent Total Time Spent with Patient: Total time spent is greater than 50% in coordination of care (as documented) at patient's floor/unit and/or counseling patient: Coding Level of Care Code 06938 INT INP/OBS CARE 3/75MIN Diagnoses Cardiac arrest I46.9 Ventricular tachycardia I47.20 Cardiomyopathy I42.9 CAD (coronary artery disease) I25.10 Aortic stenosis I35.0 Pulmonary hypertension I27.20
--- NOTE | 2023-02-24 18:26 | XCELERA ---
[id number] [id number]
[2023-02-24] MEDS ORDERED: RAPID SEQUENCE INDUCTION BAG ONE (19:02)
[2023-02-24] MEDS ORDERED: NOREPINEPHRINE/D5W 4 MG/250 ML IV ONE (19:13)
[2023-02-24] MEDS ORDERED: AMIODARONE 150MG / 100ML D5W IV ONE (19:24)
--- NOTE | 2023-02-24 19:37 | Death Pronouncement Note ---
Date of Service February 24, 2023 Pronouncement Note Admission Date February 24, 2023 Date and Time of Date of : 02/24/23 Time of : 19:32 Preliminary Cause of (1) Cardiac arrest: (2) Electrolyte abnormality: (3) Hyperkalemia: (4) ESRD (end stage renal disease): Summary Delfina is a 67-year-old female with a history of ESRD on hemodialysis who presented to the ER with difficulty accessing her tunneled dialysis catheter. Her and her report it has been malfunctioning since Wednesday, 2 days ago. She was referred to the ER by dialysis due to difficulty accessing her site that morning. While awaiting potential transfer in the ER for vascular surgery evaluation of her catheter she underwent a wide-complex tachycardia. She received 1 g of calcium gluconate, 1 amp of bicarb, and several defibrillation shocks with return to sinus. She was hyperkalemic at 6.3. She was hyperglycemic at over 500. She was recommended for inpatient admission for dialysis and electrolyte stability prior to evaluation for consult for vascular surgery availability. On admission she received 7 units of IV insulin for hyperkalemia with hyperglycemia. She received an additional gram of calcium gluconate and was taken emergently to the ICU for dialysis. Electrolytes were trended every 4 hours following dialysis. Case was discussed with nephrology, as patient was taken emergently to dialysis potassium binders were not recommended. She had a nonischemic cardiac catheterization in 2009 and had a re duced EF suspected nonobstructive; she denies chest pain/chest pressure and angina preceding her admission. Echo was ordered and troponin was trended, this was elevated at 279 on admission suspected to be due to V. tach and CPR. She underwent 3 hours of dialysis however at the completion of dialysis return to a wide-complex tachycardia and was found to be pulseless. CODE BLUE was called. She received additional calcium gluconate, bicarbonate, 4 rounds of epinephrine, repeat amiodarone bolus of 150 mg, and several defibrillation shocks. She was intubated during the code for airway protection using a glide scope. After approximately 40-45 minutes and an update was given to her who wished to cease resuscitation efforts and allow her to pass at that point due to the high risk of anoxic injury and high likelihood of compromise to her quality of life even in the unlikely event that she were to regain ROSC. Time of was pronounced at 1932, patient was pulseless to femoral palpation and without corneal reflex.. due to cardiac arrest due to electrolyte abnormalities with severe hyperkalemia due to end-stage renal dysfunction with malfunctioning tunneled catheter. Additional Data Confirmation of : no pulse, no respirations and other (no corneal reflux) Pronouncement Performed By: Attending Physician and Advanced Practice Provider (CHEKO) Family: at bedside Attending physician: Will Rene MD Was code activated?: Yes Coding Level of Care Code 29548 INP/OBS DISCH >30 MIN Diagnoses Cardiac arrest I46.9 Electrolyte abnormality E87.8 Hyperkalemia E87.5 ESRD (end stage renal disease) N18.6
--- NOTE | 2023-02-24 19:41 | Procedure Note ---
Procedure Note Date of Service February 24, 2023 Note Responded to the ICU for CODE BLUE for this patient. Upon arrival patient just finishing a approximate 3-hour session of dialysis by report from personnel in the room for hyperkalemia. Tolerated this but then developed V. tach and was shocked. Patient with some spontaneous movements upon arrival but breathing being assisted by BVM. Hypotensive. Difficult to obtain pulse ox. Patient has been on amiodarone drip while in the ICU. Had episode earlier of V. tach as well by report. Given recurrent V. tach need for airway protection in this critically ill patient she is intubated as below. Required 2 attempts due to an anterior airway with some secretions present in the oropharynx. Shortly after intubation good end-tidal waveform obtained but patient developed recurrent V. tach. ACLS and CPR initiated. ICU and hospital staff at bedside. Multiple medications including additional amiodarone, epinephrine, bicarb, calcium, magnesium, and IV lidocaine were administered in addition to CPR and multiple attempts at electrical cardioversion. Patient unfortunately with intractable V. tach without pulse and hospitalist and ICU staff had discussion with family and efforts were terminated after a prolonged resuscitation effort. ED Intubation performed by myself with sedation as below Indication recurrent V. tach. The patient was on 100% oxygen via BVM prior to the procedure. Suction, airway equipment, RSI drugs, respiratory equipment, and appropriate personnel were prepared prior to the initiation of the procedure. A time out was taken. Induction was performed with 100 mg ketamine and 75 mg rocuronium. ICU ENVIRONMENTAL ANALYST attempted visualization but copious secretions in the oropharynx noted as well as some mild edema. First attempt unsuccessful and patient transition to BVM. Attempt with bougie and glide scope by myself with A 7.0 size ETT tube was placed atraumatically to approximately 20 cm using standard technique. The cuff inflated without signs of malfunction. There were bilateral breath sounds, positive colormetric change, no gastric sounds, a good capnography waveform postintubation, and post procedure pulse oximetry was as prior to intubation difficult to obtain. No apparent immediate complications from the intubation and heart rate stabilized in the 70s and 80s sinus rhythm. Several minutes after intubation the patient returned to . tach and proceeded through ACLS/CPR. Coding
--- NOTE | 2023-02-24 19:51 | Discharge Summary ---
Date of Service February 24, 2023 Admission HPI Per Admitting Provider Gladys Dunlap is a 67-year-old female who presented from the emergency department from dialysis and while in the ER went into a wide-complex tachycardia and was subsequently found to be pulseless, CODE BLUE was called . Patient underwent defibrillation several times, administration of amiodarone, calcium, and bicarbonate and had subsequent ROSC. She was placed on an amiodarone drip and recommended for admission. Patient was recently admitted to the hospital from 02/12/2023 - 02/17/2023 3 for ESRD with malfunction of dialysis catheter which was subsequently replaced on February 16 with successful dialysis on 02/16 1115. She has a history of peripheral arterial disease and bilateral lower extremity pain; arteriogram was performed 02/09 without indication for surgical intervention and PT/DP pulses were present bilaterally to Doppler. Patient also has a history of Takotsubo cardiomyopathy in 2009, subsequently with an LVEF of 25-30% and moderate aortic stenosis. Per ER SIgnout: Cardiac Arrest with hx of ESRD on dialysis. Had difficulty with cateter at dialysis and was referred to ER for vascular evaluation of her dialysis line. Was pending transfer --> wide complex tachycardia --> Ca/Bicarb/ Tunnelled catheter malfunctioned. Vascular access obtained by temporary catheter placed by ICU -> Dr. Garcia consulted --> Room angela and dialysis in room. Not appropriate for HD unit. Not recommended for transfer at this time due to need for emergent dialysis. Has had WEight gain, dietary nonadherance as outpatient. In the past pt has had DMC, although defers to for much of decision-making. Also has hx of CAD, PAD,Distal LE ischemia chronically Per Pt and : Azucena was initially referred due to difficulty during dialysis accessing her right port. She reports she felt otherwise well and has not had fever/chills/sweats/lightheadedness/dizziness preceding this. She notes her blood pressure does tend to be lower around dialysis for which she receives midodrine. While in the ER she notes that she had a feeling of fullness and nausea, although no chest pain/chest pressure/palpitations/shortness of breath shortly before her code. She feels tired at bedside assessment, continues to deny chest pain or chest pressure. She reports she still makes urine but this tends to be dark. BP is typically 90s/60s as outpatient per . Drops to 60s on dialysis days which is offset by midodrine just on dialysis days. Hx of hyperglycemia. Did recieve her short acting this AM, but she takes her long acting glargine at night. Did get this last evening. Not sure if she is still on bumex. She reports a history of heart problems in the past and heart failure, she reports she is not very active so does not know if she has chest pain with exertion or not. reports that she is full code and would want any and all procedures available to extend her life. Medical History: Reviewed Medications: Reviewed Surgical History: Reviewed Family history: Reviewed Allergies: Reviewed Social History: No tobacco/etoh use Code Status: Full Principal Diagnosis ESRD HDD, hyperkalemia, volume overload Discharge Exam Pupils fixed and dilated. No femoral pulse. No sponteaneous respiration. Corneal Reflex absent. Discharge Data Allergies Allergy/AdvReac Type Severity Reaction Status Date / Time dulaglutide [From [facility]] Allergy Intermediate Hives Verified 02/09/23 07:26 atorvastatin AdvReac Intermediate Statin Verified 02/09/23 07:26 Cardiomyopathy erythromycin base AdvReac Intermediate Vomiting Verified 02/09/23 07:26 Consultations 02/24/23 13:10 Consult Mammography Tech Stat 02/24/23 14:06 ED Decision to Admit Stat 02/24/23 14:07 Consult Nephrology Stat 02/24/23 14:26 Consult Cardiology Routine Ordered Studies 02/24/23 17:49 US doppler arm [US arterial duplex UE RT] Routine Hospital Course (1) Cardiac arrest: Delfina is a 67-year-old female with a history of ESRD on hemodialysis who presented to the ER with difficulty accessing her tunneled dialysis catheter. Her and her report it has been malfunctioning since Wednesday, 2 days ago. She was referred to the ER by dialysis due to difficulty accessing her site that morning. While awaiting potential transfer in the ER for vascular surgery evaluation of her catheter she underwent a wide-complex tachycardia. She received 1 g of calcium gluconate, 1 amp of bicarb, and several defibrillation shocks with return to sinus without acute ischemic changes. She has a history of prior nonobstructive CAD and stress cardiomyopathy. 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 She was hyperkalemic at 6.3. She was hyperglycemic at over 500. Was clinically volume overloaded with bilateral lower extremity edema .she was recommended for inpatient admission for dialysis and electrolyte stability prior to evaluation for consult for vascular surgery availability. On admission she received 7 units of IV insulin for hyperkalemia with hyperglycemia. She received an additional gram of calcium gluconate and was taken emergently to the ICU for dialysis. Electrolytes were trended every 4 hours following dialysis. Case was discussed with nephrology, as patient was taken emergently to dialysis potassium binders were not recommended. She had a nonischemic cardiac catheterization in 2009 and had a reduced EF suspected nonobstructive; she denies chest pain/chest pressure and angina preceding her admission. Echo was ordered and troponin was trended, this was elevated at 279 on admission suspected to be due to V. tach and CPR. She underwent 3 hours of dialysis however at the completion of dialysis return to a wide-complex tachycardia and was found to be pulseless. CODE BLUE was called. She received additional calcium gluconate, bicarbonate, 4 rounds of epinephrine, repeat amiodarone bolus of 150 mg, and several defibrillation shocks. She was intubated during the code for airway protection using a glide scope. After approximately 40-45 minutes and an update was given to her who wished to cease resuscitation efforts and allow her to pass at that point due to the high risk of anoxic injury and high likelihood of compromise to her quality of life even in the unlikely event that she were to regain ROSC. Time of was pronounced at 1932, patient was pulseless to femoral palpation and without corneal reflex.. due to cardiac arrest due to electrolyte abnormalities with severe hyperkalemia due to end-stage renal dysfunction with malfunctioning tunneled catheter. (2) Electrolyte abnormality: (3) Hyperkalemia: (4) ESRD (end stage renal disease): Total Time Total Time Spent Total Time Spent (In Minutes): Time spend day of discharge 70 minutes including direct patient care, documentation, review of labs and images, and coordination of care. Discharge Plan Discharge Items Patient Disposition: Reason For Visit: HD, CATHERTER MALFUNCTION. VT W/ CARDIAC ARREST Follow-up/Referrals: Kaushik Mcgarry III, MD [Primary Care Provider] - Medications and DC Order Prescriptions: No Action (DME) Dexcom G6 Transmitter Device See Rx Instructions .Route Qty: 1 3RF Rx Instructions: As directed. (DME) Dexcom G6 Sensor Device See Rx Instructions .Route Qty: 3 5RF Rx Instructions: As directed. (DME) pen needle, diabetic [BD Ultra-Fine Gwen Pen Needle] 32 gauge x 5/32" needle See Rx Instructions .ROUTE .MEDSUPPLY Qty: 500 3RF Rx Instructions: Use 5 per day as directed with insulin injection (DME) OneTouch Ultra Test Strip See Rx Instructions .Route Qty: 200 5RF Rx Instructions: Check blood sugars QID and as needed bumetanide 2 mg tablet 1 mg PO BID Rx Instructions: 1mg on Wednesday, , wed, and wednesday cinacalcet 30 mg tablet 30 mg PO 3XWK Rx Instructions: QHS QMWF (DME) blood-glucose meter [OneTouch Ultra2 Meter] Kit See Rx Instructions .Route Qty: 1 0RF Rx Instructions: As directed (DME) lancets [OneTouch UltraSoft Lancets] Misc See Rx Instructions .Route Qty: 200 5RF Rx Instructions: Check blood sugars QID and as needed insulin aspart U-100 [Novolog FlexPen U-100 Insulin] 100 unit/mL (3 mL) insulin pen 5 unit SC TIDM Qty: 15 5RF Rx Instructions: take 5 units with meals, TID insulin glargine [Lantus U-100 Insulin] 100 unit/mL solution 25 unit subcut HS Qty: 10 2RF loperamide 2 mg capsule 2 mg PO Q4H PRN (Reason: loose stool) Renal Caps 1 mg capsule 1 cap PO QAM gabapentin 100 mg Capsule 100 mg PO . @ 2029 clopidogrel [Plavix] 75 mg tablet 75 mg PO HS trazodone 50 mg tablet 25 mg PO HS Rx Instructions: For insomnia midodrine 5 mg tablet 10 mg PO 3XWK Qty: 90 0RF Rx Instructions: Wednesday,wednesday, wednesday before dialysis pantoprazole 40 mg tablet,delayed release (DR/EC) 40 mg PO HS acetaminophen [Tylenol] 325 mg Tablet 650 mg PO Q6H MDD 3GRAMS/24HRS PRN (Reason: PAIN 1-10) acetaminophen [Tylenol] 325 mg Tablet 650 mg PO Q6H MDD 3GRAMS/24HRS PRN (Reason: FEVER >100) cholecalciferol (vitamin D3) 125 mcg (5,000 unit) capsule 125 mcg PO HS Rx Instructions: take one capsule by mouth daily after HD for six weeks. polyethylene glycol 3350 [Miralax] 17 gram Powder In Packet 17 g PO DAILY PRN (Reason: constipation) Qty: 0 0RF simethicone [Gas Relief (simethicone)] 80 mg Tablet,Chewable 80 mg PO Q6H PRN (Reason: abdominal distention) Qty: 0 0RF bisacodyl [Dulcolax (bisacodyl)] 10 mg Suppository 10 mg [place] DAILY PRN (Reason: Constipation) Enema 19-7 gram/118 mL Enema 118 ml [place] DAILY PRN (Reason: Constipation) alum-mag hydroxide-simeth [Maalox MS Multi Symptom] 400-400-40 mg/5 mL Suspension 30 ml PO Q6H PRN (Reason: Heartburn) oxycodone 5 mg Tablet 5 mg PO Q6H PRN (Reason: pain 9-10) Humalog Injection Solution See Rx Instructions .ROUTE .COMPLEX Rx Instructions: 350-400= 8U; 401-450= 12U; 451-500= 16U; 501-550= 18U; recheck BS in 2 hours sub before meals and at bedtime sevelamer carbonate 800 mg tablet 800 mg PO . TUE, JENNIFER, SAT, SUN Rx Instructions: must administer with a meal/food terbinafine HCl [Lamisil] 1 % Cream 1 applic TOPICAL BID bacitracin 500 unit/gram Ointment 1 applic TOPICAL DAILY Rx Instructions: Right groin menthol-zinc oxide [Calmoseptine] 0.44-20.6 % Ointment 1 applic TOPICAL DAILY Rx Instructions: buttocks, L inner thigh Admission Data Admit Date/Time: 02/24/23 14:29 Attending Provider: Will Rene Admit Provider: Will Rene Primary Care Provider: Kaushik Mcgarry III Other Providers: Donavan Hogue; Will Rene; Saad Garcia; Juve Perez Coding Level of Care Code INP/OBS EV SAME DAY LV 2,70MIN Diagnoses Cardiac arrest I46.9 Electrolyte abnormality E87.8 Hyperkalemia E87.5 ESRD (end stage renal disease) N18.6
[2023-02-24 20:24] LABS: Albumin Globulin Ratio 0.7 (0.9-2); Albumin Level 2.6 gm/dl (3.4-5.0); BUN Creatinine Ratio 8.6 (10-20); Bilirubin,Total 0.3 mg/dl (0.2-1.0); Calcium 8.6 mg/dl (8.6-10.3); Creatinine Clr Calc Pharmacy 24.6 ml/min; Est GFR (African American) 21.7 ml/min; Est GFR (Non-African American) 18.7 ml/min; Globulin 3.5 gm/dl (2.5-4.0); Potassium 4.9 mmol/L (3.5-5.1); Total Protein 6.1 gm/dl (6.0-8.3)
[2023-02-24] MEDS ORDERED: GABAPENTIN 100 MG CAP PO SCH (20:30)
[2023-02-24] MEDS ORDERED: CLOPIDOGREL BISULFATE 75 MG TAB PO SCH (21:00)
[2023-02-24] MEDS ORDERED: PANTOprazole 40 MG TAB PO SCH (21:00)
[2023-02-24] MEDS ORDERED: INSULIN ASPART PER UNIT CHARGE SC SCH (21:00)
[2023-02-24] MEDS ORDERED: CINACALCET HCL 30 MG TAB PO SCH (21:00)
[2023-02-24] MEDS ORDERED: traZODone HCL 50 MG TAB PO SCH (21:00)
[2023-02-24] MEDS ORDERED: SODIUM CHLORIDE 0.9% 10ML FLUSH IV ONE ×2 (22:29)
[2023-02-24] MEDS ORDERED: SODIUM CHLORIDE 0.9% PF INJ 10 ML VIAL IV ONE (22:29)
[2023-02-24] MEDS ORDERED: LIDOCAINE 2% 20 MG/ML 5 ML SYR IV ONE ×2 (22:29)
[2023-02-24] MEDS ORDERED: KETAMINE HCL INJ 50 MG/ML 10 ML VIAL IV ONE (22:29)
[2023-02-24] MEDS ORDERED: CALCIUM CHLORIDE 10% 10 ML SYR IV ONE ×2 (22:29)
[2023-02-24] MEDS ORDERED: SODIUM BICARB 8.4% INJ 50 MEQ/50 ML SYR IV ONE ×2 (22:29)
[2023-02-24] MEDS ORDERED: ROCURONIUM BROMIDE 10 MG/ML 5 ML VIAL IV ONE (22:29)
[2023-02-24] MEDS ORDERED: MAG SULFATE 50% 1GM/2ML VIAL IV ONE (22:29)
--- NOTE | 2023-02-25 07:46 | Electrocardiogram Report ---
Test Reason : Blood Pressure : / mmHG Vent. Rate : 098 BPM Atrial Rate : 098 BPM P-R Int : 202 ms QRS Dur : 122 ms QT Int : 358 ms P-R-T Axes : 059 -21 178 degrees QTc Int : 457 ms Normal sinus rhythm Minimal voltage criteria for LVH, may be normal variant ( [place] product ) Cannot rule out Anterior infarct (cited on or before 12-FEB-2023) Marked ST abnormality, possible inferior subendocardial injury T wave abnormality, consider lateral ischemia Abnormal ECG When compared with ECG of 12-FEB-2023 10:43, T wave inversion now evident in Lateral leads Confirmed by Juve Perez ([id number]) on 02/25/2023 7:46:01 AM Referred By: [facility] Confirmed By:Juve Perez
--- NOTE | 2023-02-25 07:53 | Electrocardiogram Report ---
Test Reason : Blood Pressure : / mmHG Vent. Rate : 104 BPM Atrial Rate : 104 BPM P-R Int : 192 ms QRS Dur : 106 ms QT Int : 328 ms P-R-T Axes : 057 -17 171 degrees QTc Int : 431 ms Sinus tachycardia Left ventricular hypertrophy with repolarization abnormality Abnormal ECG When compared with ECG of 24-FEB-2023 11:46, QRS duration has decreased Confirmed by Juve Perez ([id number]) on 02/25/2023 7:53:10 AM Referred By: [facility] Confirmed By:Juve Perez
[2023-02-25] MEDS ORDERED: SEVELAMER HCL 800 MG TABLET PO SCH (08:00)
[2023-02-25] MEDS ORDERED: BUMETANIDE 1 MG TAB PO SCH (09:00)
[2023-02-25] MEDS ORDERED: NEPHROCAPS PO SCH (09:00)
[2023-02-26] MEDS ORDERED: MIDODRINE HCL 10 MG TAB PO SCH (09:00)
== END 2023-02-24 22:30 | disposition expired | DRG 308 ==
LOC: ED 10:24 → 1E 14:29